=== PATIENT | female | born 2000 | race Hispanic/Latino ===

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

== ENCOUNTER 2021-01-22 01:00 | Emergency (ER) | payer BC, OTHER ==
--- OUTSIDE RECORDS SUMMARY | 2021-01-22 01:03 | XMS REPORT | Continuity of Care Document ---
:2000 Author Organization [facility] t Address [address] [place] [address] Care Team Providers Name Role Phone 2, Lab Attending Clinician Unavailable Yaya MERAZ Attending Clinician Doctor Unassigned, Name Attending Clinician Unavailable Mitesh ABRAHAM, Marcus Attending Clinician DR Serafin CARMEN. Attending Clinician Unavailable DR Serafin CARMEN. Admitting Clinician Unavailable Problems This patient has no known problems. Allergies, Adverse Reactions, Alerts This patient has no known allergies or adverse reactions. Medications This patient has no known medications. Procedures This patient has no known procedures. Encounters Start End Encounter Admission Attending Care Care Encounter Source Date/Time Date/Time Type Type Clinicians Facility Department ID 2021-01-18 2021-01-18 Dog Or Horse Racing Official 2, Dannie Lab [facility] [id number] 14:10:26 14:25:26 Visit Lori [id number] [place] [id number] Zahra [phone] [address] 2021-01-18 2021-01-18 Case ROMERO Javier [id number] 00:00:00 00:00:00 Management Meagan Sandoval [id number] [place] [id number] [facility] [id number] [address] 2021-01-15 2021-01-15 Orders Doctor JUSTIN [id number] 00:00:00 00:00:00 Only Unassigned, [place] [id number] [place] [facility] [id number] 2021-01-15 2021-01-15 Telephone Ellen Sagastume [facility] [id number] 00:00:00 00:00:00 Marcus Sandoval [id number] [place] [id number] [facility] [id number] [address] 2020-12-01 2020-12-01 Emergency E GERMAN CARMEN [facility] [id number] [facility] 10:52:00 12:00:00 [facility] Results This patient has no known results.
--- NOTE | 2021-01-22 01:25 | EDPHYS ---
Physician Documentation [facility] Name: Devi Calvert Age: 20 yrs Sex: Female : 2000 Arrival Date: 01/22/2021 Time: 01:03 Bed 16 Private MD: YOANDY Physician Yohannes Laguna HPI: 01/22 04:56 This 20 yrs old Female presents to ER via Wheelchair with complaints of Foot tw4 Injury. 04:56 This 20 yrs old Female presents to ER via Wheelchair with complaints of Foot tw4 Injury. 04:56 The patient presents with a contusion, an injury, pain. The complaints affect the left tw4 foot. Context: The problem was sustained at home, resulted from a heavy object falling, a cup or glass. Modifying factors: The symptoms are alleviated by nothing, the symptoms are aggravated by weight bearing, movement. The patient has not experienced similar symptoms in the past. 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 - Social history:: Smoking status: Patient denies any tobacco usage or history of. ROS: 04:56 MS/extremity: Positive for injury or acute deformity, contusion, of the dorsum of left tw4 foot. 04:56 Constitutional: Negative for fever, chills, and weight loss, Eyes: Negative for injury, pain, redness, and discharge, Cardiovascular: Negative for chest pain, palpitations, and edema, Respiratory: Negative for shortness of breath, cough, wheezing, and pleuritic chest pain, Abdomen/GI: Negative for abdominal pain, nausea, vomiting, diarrhea, and constipation, Skin: Negative for injury, rash, and discoloration. Exam: 04:56 Constitutional: This is a well developed, well nourished patient who is awake, alert, tw4 and in no acute distress. Head/Face: Normocephalic, atraumatic. Cardiovascular: Regular rate and rhythm with a normal S1 and S2. No gallops, murmurs, or rubs. Normal PMI, no JVD. No pulse deficits. Respiratory: Lungs have equal breath sounds bilaterally, clear to auscultation and percussion. No rales, rhonchi or wheezes noted. No increased work of breathing, no retractions or nasal flaring. Abdomen/GI: Soft, non-tender, with normal bowel sounds. No distension or tympany. No guarding or rebound. No evidence of tenderness throughout. Skin: Warm, dry with normal turgor. Normal color with no rashes, no lesions, and no evidence of cellulitis. 04:56 Musculoskeletal/extremity: Extremities: noted in the dorsum of left foot: contusion. Vital Signs: 01:10 BP 128 / 85; Pulse 105; Resp 18; Temp 98.2; Pulse Ox 100% ; Weight 53.07 kg; Height 5 wh ft. 2 in. (157.48 cm); Pain 7/10; 01:10 Body Mass Index 21.40 (53.07 kg, 157.48 cm) MDM: 01:19 Patient medically screened. tw4 04:56 Data reviewed: vital signs, nurses notes. Special discussion: I discussed with the tw4 patient/guardian in detail that at this point there is no indication for admission to the hospital. It is understood, however, that if the symptoms persist or worsen the patient needs to return immediately for re-evaluation. 01/22 01:23 Order name: Jed Wrap; Complete Time: 01:39 tw4 Administered Medications: No medications were administered Disposition: 01/22/21 01:24 Discharged to Home. Impression: Contusion of left foot. - Condition is Stable. - Discharge Instructions: Contusion. - Work release form, Medication Reconciliation Form, Thank You Letter, Antibiotic Education, Prescription Opioid Use form. - Follow up: Private Physician; When: Upon discharge from the Emergency Department; Reason: Recheck today's complaints, Continuance of care, Re-evaluation by your physician. - Problem is new. - Symptoms have improved. Signatures: Dispatcher [employer] Lorena Ortiz, RN RN Yohannes Laguna MD MD tw4 Corrections: (The following items were deleted from the chart) 01:25 01:21 Foot Right 3 View+RAD.RAD.BRZ ordered. [facility] 01:54 01:24 01/22/2021 01:24 Discharged to Home. Impression: Contusion of left foot. wh Condition is Stable. Forms are Medication Reconciliation Form, Thank You Letter, Antibiotic Education, Prescription Opioid Use. Follow up: Private Physician; When: Upon discharge from the Emergency Department; Reason: Recheck today's complaints, Continuance of care, Re-evaluation by your physician. Problem is new. Symptoms have improved. tw4
--- NOTE | 2021-01-22 01:25 | ER ---
Nurse's Notes [facility] Name: Devi Calvert Age: 20 yrs Sex: Female : 2000 Arrival Date: 01/22/2021 Time: 01:03 Bed 16 Private MD: Diagnosis: Contusion of left foot Presentation: 01/22 01:10 Chief complaint: Patient states: C/O left foot pain after a shampoo bottle accidentally wh dropped on her foot. Pt took Tylenol prior to getting to ER. Coronavirus screen: Client denies travel out of the [place] in the last 14 days. At this time, the client does not indicate any symptoms associated with coronavirus-19. Ebola Screen: Patient negative for fever greater than or equal to 101.5 degrees Fahrenheit, and additional compatible Ebola Virus Disease symptoms Patient denies exposure to infectious person. Initial Sepsis Screen: Does the patient meet any 2 criteria? HR > 90 bpm. Does the patient have a suspected source of infection? No. Patient's initial sepsis screen is negative. Risk Assessment: Do you want to hurt yourself or someone else? Patient reports no desire to harm self or others. Onset of symptoms was January 22, 2021. 01:10 Method Of Arrival: Wheelchair 01:10 Acuity: CHANTAL 4 Triage Assessment: 01:15 Injury Description: pain. 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 - Social history:: Smoking status: Patient denies any tobacco usage or history of. Screenin:14 Abuse screen: Denies threats or abuse. Denies injuries from another. Nutritional screening: No deficits noted. Tuberculosis screening: No symptoms or risk factors identified. Fall Risk None identified. Assessment: 01:14 General: Appears in no apparent distress. Behavior is calm, cooperative, appropriate for age. Pain: Complains of pain in left foot. Neuro: Level of Consciousness is awake, alert, obeys commands, Oriented to person, place, time, situation, Appropriate for age. Cardiovascular: Capillary refill < 3 seconds. Respiratory: Airway is patent Respiratory effort is even, unlabored, Respiratory pattern is regular, symmetrical. GI: Abdomen is non-distended. : No signs and/or symptoms were reported regarding the genitourinary system. EENT: No signs and/or symptoms were reported regarding the EENT system. Derm: Skin is intact, is healthy with good turgor, Skin is pink, warm \T\ dry. normal. Musculoskeletal: Circulation, motion, and sensation intact. Vital Signs: 01:10 BP 128 / 85; Pulse 105; Resp 18; Temp 98.2; Pulse Ox 100% ; Weight 53.07 kg; Height 5 wh ft. 2 in. (157.48 cm); Pain 7/10; 01:10 Body Mass Index 21.40 (53.07 kg, 157.48 cm) ED Course: 01:03 Patient arrived in ED. am4 01:06 Lorena Doran RN is Primary Nurse. 01:13 Triage completed. 01:15 Arm band placed on right wrist. 01:15 Patient has correct armband on for positive identification. Bed in low position. Call light in reach. Side rails up X 1. Pulse ox on. NIBP on. 01:19 Yohannes Laguna MD is Attending Physician. tw4 01:54 No provider procedures requiring assistance completed. Patient did not have IV access during this emergency room visit. Administered Medications: No medications were administered Outcome: 01:24 Discharge ordered by . tw4 01:54 Discharged to home via wheelchair, with family. 01:54 Condition: stable 01:54 Discharge instructions given to patient, Instructed on discharge instructions, follow up and referral plans. POC Demonstrated understanding of instructions, follow-up care, splint care, POC 01:54 Patient left the ED. Signatures: Lorena Doran RN RN Yohannes Laguna MD MD 4 Cecilia Styles [facility]
[2021-01-22 19:02] VITALS: BP 128/85; TEMP 98.2; O2SAT 100
== END 2021-01-22 01:54 | disposition home or self-care (01) ==
LOC: ER 01:00
DX: S90.32XA Contusion of left foot, initial encounter (principal); W20.8XXA Other cause of strike by thrown, projected or falling object, initial encounter; F41.9 Anxiety disorder, unspecified; J45.909 Unspecified asthma, uncomplicated; F32.9 Major depressive disorder, single episode, unspecified; F20.9 Schizophrenia, unspecified
CPT/HCPCS: 99283

== ENCOUNTER 2021-04-02 17:15 | Emergency (ER) | payer BC, OTHER ==
--- OUTSIDE RECORDS SUMMARY | 2021-04-02 17:18 | XMS REPORT | Continuity of Care Document ---
:2000 Author Organization [facility] t Address [address] [place] [address] Care Team Providers Name Role Phone Ghazal Primary Care Physician Yaya MERAZ Attending Clinician DR Serafin CARMEN. Attending Clinician Unavailable DR Serafin CARMEN. Admitting Clinician Unavailable Payers Payer Name Policy Type Policy Effective Date Expiration Date Sour ce Number BCBS OF [id number] 2020 [place]00 [place] [id number] [place] 2019-Presen [phone] [address], [place] [address]GNV/POS [facility] [id number] 2019 [place] [facility] - 00:00:00 [place] Medic al [facility] Branch MEDICAIDWY CHILDREN [id number] /1/2019-PresentM edicaid Problems Condition Condition Condition Status Onset Resolution Last Treating Co mments Source Name Details Category Date Date Treatment Clinician Date High-risk High-risk Disease Active Uni vers 4-07 ity of in first in first 00:00: [place] trimester trimester 00 Medi jose Branch Rh Rh Disease Active Univers negative negative 4-07 ity of state in state in 00:00: [place] antepartum antepartum 00 Me dical period period Branch Generalize Generalize Disease Active 2018-11 U nivers d anxiety d anxiety 0-14 ity of disorder disorder 00:00: [place] [facility] 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 0-14 it y of disorder disorder 00:00: Medical Branch History of History of Disease Active 2018-11 U nivers self-harm self-harm 0-14 ity of 00:00: [place] [facility] Bipolar 1 Bipolar 1 Disease Active Uni vers disorder disorder 8-30 ity of 00:00: Medical Branch Family Family Disease Active Univers history of history of 8-30 it y of [place] Medical defect defect Branch Vaginal Vaginal Disease Resolve [id number] 2021-01-15 Univers discharge discharge d 2-31 00:00:00 17:03:56 ity of 00:00: [place] [facility] Need for Need for Disease Resolve [id number] 2021-01-15 Univers prophylact prophylact d 0-14 00:00:00 17:05:00 ity of ic ic 00:00: [place] vaccinatio vaccinatio 00 Me dical n and n and Branch inoculatio inoculatio n against n against varicella varicella Need for Need for Disease Resolve [id number] 2021-01-15 Univers vaccinatio vaccinatio d 0-14 00:00:00 17:05:01 ity of n against n against 00:[place] rub[place] rubella 00 [place] [facility] Normal Normal Disease Resolve 2020-02-28 2020-02-28 Univers labor labor d 3-23 00:00:00 14:13:37 ity of 00:00: [place] [facility] Group B Group B Disease Resolve 2020-02-28 2020-02-28 Univers streptococ streptococ d 3- 00:00:00 14:13:32 ity of jose jose 00:00: [place] infection infection 00 [facility] jose during during Branch Liveborn Liveborn Disease Resolve 2020-02-28 2020-02-28 Univers infant, of infant, of d 3-23 00:00:00 14:13:34 ity of umaña umaña 00:00: Cathy s , , 00 Me dical born in born in [facility] hospital by vaginal by vaginal delivery delivery High-risk High-risk Disease Resolve [id number] 2020-02-28 Univers d 2-31 00:00:00 14:13:35 ity of in third in third 00:00: [place] trimester trimester 00 [facility] 26 weeks 26 weeks Disease Resolve [id number] 2019-12-08 [facility] gestation gestation d 2-31 00:00:00 20:01:23 ity of of of 00:00: [place] 00 [facility] Allergies, Adverse Reactions, Alerts This patient has no known allergies or adverse reactions. Social History Social Habit Start Date Stop Date Quantity Comments Source ASSERTION 2020-12-25 University of 00:00:00 [facility] Exposure to Not sure [facility] SARS-CoV-2 (event) [facility] Cigarettes smoked 2021-02-14 2021-02-14 Univers ity of current (pack per 00:00:00 00:00:00 ) - Reported [place] Tobacco use and 2021-02-14 2021-02-14 Never used Universit y of exposure 00:00:00 00:00:00 [facility] Alcohol intake 2021-02-14 2021-02-14 Ex-drinker University 00:00:00 00:00:00 (finding) [facility] History of tobacco 2019-07-05 Cigarette Smoker University of use 00:00:00 [facility] Tobacco Comment 2019-05-24 2019-05-24 1/2 PPD Universit y of 00:00:00 00:00:00 [facility] Sex Assigned At [birth year] Universit y of 00:00:00 00:00:00 [facility] Smoking Status Start Date Stop Date Source Former smoker 2021-02-14 00:00:00 2021-02-14 00:00:[address] [facility] Medications Ordered Filled Start Stop Current Ordering Indication Dosage Frequency Signature Comments Components Source Medication Medication Date Date Medication? Clinician (SIG) Name Name FLUoxetine 2021-0 Yes fluoxetine U nivers 20 mg 3-08 20 mg ity of capsule 18:17: capsule [place] 11 TAKE 1 Medical CAPSULE BY Branch MOUTH EVERY DAY albuterol Yes 2.5mg Inhale 2.5 U nivers 2.5 mg /3 3-08 mg every 4 ity of mL (0.083 16:46: (four) [place] %) 17 hours as Medical nebulizer needed. Branch solution albuterol Yes 2{puff} Inhale 2 U nivers 90 3-08 Puffs ity of mcg/actuati 16:46: every 6 Tk as on inhaler 17 (six) Medical hours as Branch needed. QUEtiapine 2018-11 Yes 50mg Take 50 mg U nivers 50 mg 1-25 by mouth ity of tablet 00:00: daily. [address] Immunizations Ordered Immunization Filled Immunization Date Status Commen ts Source Name Name MMR 2020-02-01 Completed University of 00:00:00 [facility] Rho (d) Immune 2020-02-01 Completed University of Globulin 00:00:00 [facility] TDAP (ADACEL) 2019-12-08 Completed University of VACCINE 00:00:00 [facility] Influenza Virus 2019-08-18 Completed Universit y of Vaccine Quad .5 mL 00:00:00 [facility] IM 6+ MO [place] Influenza Virus 2019-08-18 Completed Universit y of Vaccine 00:00:00 [facility] Rho (d) Immune 2019-07-27 Completed University of Globulin 00:00:00 [facility] HPV 2014-01-18 Completed University of 00:00:00 [facility] Meningococcal 2014-01-18 Completed University of Vaccine 00:00:00 [facility] Varicella 2014-01-18 Completed University of (varivax)(chicken 00:00:00 [place] M edical pox) Branch HPV 2011-07-04 Completed University of 00:00:00 [facility] HEPATITIS A 2006-12-16 Completed University of 00:00:00 [facility] HEPATITIS A 2005-10-11 Completed University of 00:00:00 [facility] DTAP 2003-02-08 Completed University of 00:00:00 [facility] HIB 4 Dose Schedule 2003-02-08 Completed Unive rsity of 00:00:00 [facility] Varicella 2002-11-23 Completed University of (varivax)(chicken 00:00:00 [facility] edical pox) Branch MMR 2002-11-23 Completed University of 00:00:00 [facility] DTAP 2002-08-03 Completed University of 00:00:00 [facility] HIB 4 Dose Schedule 2002-08-03 Completed Unive rsity of 00:00:00 [facility] Hep B, Adol or Pedi 2002-08-03 Completed Unive rsity of Dosage 00:00:00 [facility] DTAP 2002-03-15 Completed University of 00:00:00 [facility] HIB 4 Dose Schedule 2002-03-15 Completed Unive rsity of 00:00:00 [facility] DTAP 2001 Completed University of 00:00:00 [facility] HIB 4 Dose Schedule 2001 Completed Unive rsity of 00:00:00 [facility] Hep B, Adol or Pedi 2000 Completed Unive rsity of Dosage 00:00:00 [facility] Hep B, Adol or Pedi 2000 Completed Unive rsity of Dosage 00:00:00 [facility] Vital Signs Vital Name Observation Time Observation Value Comments Source Systolic blood 2021-03-14 18:19:00 99 mm[Hg] Univer sity of pressure [facility] Diastolic blood 2021-03-14 18:19:00 65 mm[Hg] Unive rsity of pressure [facility] Heart rate 2021-03-14 18:19:00 99 /min [facility] Body temperature 2021-03-14 18:19:00 36.83 Melania [facility] [place] [facility] Respiratory rate 2021-03-14 18:19:00 18 /min [facility] Body height 2021-03-14 18:19:00 157.5 cm [facility] Body weight 2021-03-14 18:19:00 53.524 kg [facility] BMI 2021-03-14 18:19:00 21.58 kg/m2 [facility] Systolic blood 2021-03-14 18:19:00 99 mm[Hg] Univer sity of pressure [facility] Diastolic blood 2021-03-14 18:19:00 65 mm[Hg] Unive rsity of pressure [facility] Heart rate 2021-03-14 18:19:00 99 /min [facility] Body temperature 2021-03-14 18:19:00 36.83 Melania [facility] Respiratory rate 2021-03-14 18:19:00 18 /min [facility] Body height 2021-03-14 18:19:00 157.5 cm [facility] Body weight 2021-03-14 18:19:00 53.524 kg [facility] BMI 2021-03-14 18:19:00 21.58 kg/m2 [facility] Procedures Procedure Date / Time Performed Performing Clinician Sourc e POCT URINALYSIS W/O 2021-03-14 00:00:00 Meagan Javier [facility] SPECIFIC GRAVITY [facility] Plan of Care Planned Activity Planned Date Details Comments Source Future Scheduled 2029-12-08 DTaP,Tdap,and Td [facility] Test 00:00:00 Vaccines (6 - Td) Medical Br anch [code = DTaP,Tdap,and Td Vaccines (6 - Td)] Future Scheduled 2022-01-15 Screening for [facility] Test 00:00:00 Chlamydia trachomatis Medica l Branch (procedure) [code = 482052814] Future Scheduled 2021-07-11 INFLUENZA VACCINE Univer [facility] Test 00:00:00 (Season Ended) [code = Medic al Branch INFLUENZA VACCINE (Season Ended)] Future Scheduled 2017 [facility] (1) [code = Medical Branch SARS-CoV-2 (COVID-19) Vaccine (1)] Future Scheduled 2013 [facility] (procedure) [code = Medical Branch [id number]] Future Scheduled 2013 Well child visit [facility] Test 00:00:00 (procedure) [code = Medical Branch [id number]] Future Scheduled 2011 MENINGOCOCCAL B [facility] Test 00:00:00 VACCINES (1 of 2 - Medical B [facility] Risk Bexsero 2-dose series) [code = MENINGOCOCCAL B VACCINES (1 of 2 - Risk Bexsero 2-dose series)] Encounters Start End Encounter Admission Attending Care Care Encounter Source Date/Time Date/Time Type Type Clinicians Facility Department ID 2021-03-14 2021-03-14 Routine YayaTRIPPTEE [id number] 12:43:31 13:35:28 Meagan Sandoval [id number] Visit [place] [id number] Zahra [id number] [address] 2020-12-01 2020-12-01 Emergency E GERMAN CARMEN [facility] [id number] [facility] 10:52:00 12:00:00 Medica l Center Results Test Description Test Time Test Comments Results Result Comments Source POCT URINALYSIS W/O SPECIFIC GRAVITY 2021-03-14 18:20:00 Test Item Value Reference Range Interpretation Comme nts POCT PH U (test code = 3254) N/A 5-8 POCT U LEUK EST (test code = 3263) N/A Negative - Negative POCT U NIT (test code = 3262) N/A Negative - Negative POCT U PROT (test code = 3259) Negative Negative - Negative POCT U GLU (test code = 3256) Negative Negative - Negative POCT U KETONE (test code = 3258) N/A Negative - Negative POCT U BLD (test code = 3257) N/A Negative - Negative [facility]
--- NOTE | 2021-04-02 18:19 | ER ---
Nurse's Notes [facility] Name: Devi Calvert Age: 20 yrs Sex: Female : 2000 Arrival Date: 04/02/2021 Time: 17:18 Bed Waiting Private MD: Diagnosis: Presentation: 04/02 17:43 Chief complaint: Patient states: My head has been hurting every other day. Today, ca1 started 2 hrs ago when I woke and I feel like my R face is numb, R arm numb. VAN negative. A\T\Ox4. 16 weeks . Coronavirus screen: Client denies travel out of the [place] in the last 14 days. At this time, the client does not indicate any symptoms associated with coronavirus-19. Ebola Screen: Patient negative for fever greater than or equal to 101.5 degrees Fahrenheit, and additional compatible Ebola Virus Disease symptoms Patient denies exposure to infectious person. Patient denies travel to an Ebola-affected area in the 21 days before illness onset. No symptoms or risks identified at this time. Initial Sepsis Screen: Does the patient meet any 2 criteria? No. Patient's initial sepsis screen is negative. Does the patient have a suspected source of infection? No. Patient's initial sepsis screen is negative. Risk Assessment: Do you want to hurt yourself or someone else? Patient reports no desire to harm self or others. Onset of symptoms was April 02, 2021. 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 Flu vaccine is not up to date. - Social history:: Smoking status: Patient denies any tobacco usage or history of. Vital Signs: 17:43 BP 116 / 76; Pulse 104; Resp 18 S; Temp 97.3(TE); Pulse Ox 98% on R/A; Weight 54.43 kg ca1 (R); Height 5 ft. 2 in. (157.48 cm) (R); Pain 810; 17:43 Body Mass Index 21.95 (54.43 kg, 157.48 cm) ca1 ED Course: 17:18 Patient arrived in ED. bp1 17:47 Triage completed. ca1 17:48 Arm band placed on right wrist. ca1 18:19 Patient's name was called from ER lobby. No response. Unable to locate patient. Will ca1 disposition as left without being seen by a provider. Administered Medications: No medications were administered Outcome: 18:19 Patient left the ED. ca1 Signatures: Mareila Malone, RN RN ca1 Peggy Cummings bp1
[2021-04-02 19:37] VITALS: BP 116/76; TEMP 97.3; O2SAT 98
== END 2021-04-02 18:19 | disposition left against medical advice (07) ==
LOC: ER 17:15
DX: Z53.21 Procedure and treatment not carried out due to patient leaving prior to being seen by health care provider (principal)
CPT/HCPCS: 99281

== ENCOUNTER 2021-04-24 11:58 | Emergency (ER) | payer BC ==
[2021-04-24 12:16] LABS: Urine Blood Negative (Negative); Urine Glucose Negative (Negative); Urine Protein Negative (Negative)
--- NOTE | 2021-04-24 12:56 | ER ---
Nurse's Notes [facility] Name: Devi Calvert Age: 20 yrs Sex: Female : 2000 Arrival Date: 04/24/2021 Time: 11:59 Bed 25 Private MD: Diagnosis: Bronchitis, not specified as acute or chronic;Tobacco abuse counseling; related exhaustion and fatigue, second trimester;Fever, unspecified;Urinary tract infection, site not specified Presentation: 04/24 12:06 Chief complaint: Patient states: Pt stated, "I've had a cough for two weeks, coughing kg up junk and congestion. Today I felt like I couldn't breath and my throat feels like its swelling." "I was at [facility] ER because I thought my water had broke but they said it was a UTI. I've been taking medication for that since Friday or Friday.". Coronavirus screen: Client denies travel out of the [place] in the last 14 days. At this time, unable to obtain information related to travel outside the [place] Client presents with at least one sign or symptom that may indicate coronavirus-19. Ebola Screen: Patient negative for fever greater than or equal to 101.5 degrees Fahrenheit, and additional compatible Ebola Virus Disease symptoms Patient denies exposure to infectious person. Patient denies travel to an Ebola-affected area in the 21 days before illness onset. Initial Sepsis Screen: Does the patient meet any 2 criteria? HR > 90 bpm. No. Patient's initial sepsis screen is negative. Does the patient have a suspected source of infection? No. Patient's initial sepsis screen is negative. Risk Assessment: Do you want to hurt yourself or someone else? Patient reports no desire to harm self or others. Onset of symptoms was April 10, 2021. 12:06 Method Of Arrival: EMS: [facility] kg 12:06 Acuity: CHANTAL 3 kg Triage Assessment: 12:16 General: Appears in no apparent distress. Behavior is calm, cooperative, appropriate kg for age, quiet. Pain: Complains of pain in chest and neck Pain currently is 7 out of 10 on a pain scale. at worst was 7 out of 10 on a pain scale. level that patient reports is acceptable is 2 out of 10 on a pain scale. Quality of pain is described as aching. EENT: Throat has enlarged tonsils Reports difficulty swallowing since two weeks ago nasal congestion nasal discharge pain when swallowing Pain is 7 out of 10 on a pain scale. Neuro: No deficits noted. Cardiovascular: No deficits noted. Heart tones S1 S2 Rhythm is sinus tachycardia. Respiratory: Reports shortness of breath cough that is productive, pain with cough since two weeks ago Airway is patent Trachea midline Respiratory effort is even, unlabored, relaxed, Respiratory pattern is regular, Sputum is thick, green yellow white Breath sounds are clear bilaterally. Onset: The symptoms/episode began/occurred gradually, the patient has moderate shortness of breath. GI: No deficits noted. GI: Pt is 19 weeks . : No deficits noted. Derm: No deficits noted. Musculoskeletal: No deficits noted. 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 - Social history:: Smoking status: Patient reports the use of cigarette tobacco products, smokes one-half pack cigarettes per day. Screenin:00 Fall Risk None identified. No secondary diagnosis (0 pts). No IV (0 pts). Ambulatory kg Aid- None/Bed Rest/Nurse Assist (0 pts). Gait- Normal/Bed Rest/Wheelchair (0 pts) Mental Status- Oriented to own ability (0 pts). Total Acevedo Fall Scale indicates No Risk (0-24 pts). 13:23 Abuse screen: Denies threats or abuse. Denies injuries from another. Nutritional kg screening: No deficits noted. Tuberculosis screening: No symptoms or risk factors identified. Assessment: 12:19 Reassessment: See triage assessment. Cardiovascular: Heart tones S1 S2. kg Vital Signs: 12:06 BP 119 / 77; Pulse 118; Resp 18; Temp 99.4(O); Pulse Ox 100% ; Weight 55.34 kg (R); kg Height 5 ft. 2 in. (157.48 cm) (R); Pain 7/10; 13:22 BP 110 / 78; Pulse 106; Resp 20; Pulse Ox 98% on R/A; kg 12:06 Body Mass Index 22.31 (55.34 kg, 157.48 cm) kg Vitals: 12:52 Heart Tones 162. ss ED Course: 11:59 Patient arrived in ED. am2 12:00 Joon Miles MD is Attending Physician. [facility] 12:06 Jeanne Montoya, RN is Primary Nurse. kg 12:15 Triage completed. kg 12:54 Ford Dumont MD is Referral Physician. emery 13:00 Patient has correct armband on for positive identification. Placed in gown. Bed in low kg position. Call light in reach. Side rails up X 1. 13:00 No provider procedures requiring assistance completed. Patient did not have IV access kg during this emergency room visit. 13:24 Arm band placed on right wrist. kg Administered Medications: 13:06 Drug: Augmentin (Amoxicillin-Clavulanate) 875 mg Route: PO; kg 13:25 Follow up: Response: No adverse reaction kg Outcome: 12:55 Discharge ordered by . emery 13:25 Discharged to home ambulatory, with significant other. kg 13:25 Condition: improved 13:25 Discharge instructions given to patient, Instructed on discharge instructions, follow up and referral plans. Demonstrated understanding of instructions, follow-up care, medications, Prescriptions given X 4. 13:26 Patient left the ED. kg Signatures: Joon Miles MD MD cha Smirch, Shelby, RN RN Rupa Nair am2 Jeanne Montoya, RN RN kg
--- NOTE | 2021-04-24 12:56 | EDPHYS ---
Physician Documentation [facility] Name: Devi Calvert Age: 20 yrs Sex: Female : 2000 Arrival Date: 04/24/2021 Time: 11:59 Bed 25 Private MD: ED Physician Joon Mlies HPI: 04/24 12:41 This 20 yrs old Female presents to ER via EMS with complaints of Breathing emery Difficulty. 12:41 The patient has shortness of breath at rest, with light activity. Onset: The emery symptoms/episode began/occurred 1 day(s) ago. Duration: The symptoms are continuous, and are unchanged since they started. The patient's shortness of breath is aggravated by coughing. Associated signs and symptoms: Pertinent positives: non-productive cough. Severity of symptoms: At their worst the symptoms were mild in the emergency department the symptoms are unchanged. The patient has not experienced similar symptoms in the past. 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 - Social history:: Smoking status: Patient reports the use of cigarette tobacco products, smokes one-half pack cigarettes per day. ROS: 12:48 Constitutional: Negative for fever, chills, and weight loss, Eyes: Negative for injury, emery pain, redness, and discharge, ENT: Negative for injury, pain, and discharge, Neck: Negative for injury, pain, and swelling, Abdomen/GI: Negative for abdominal pain, nausea, vomiting, diarrhea, and constipation, Back: Negative for injury and pain, : Negative for injury, bleeding, discharge, and swelling, MS/Extremity: Negative for injury and deformity, Skin: Negative for injury, rash, and discoloration, Neuro: Negative for headache, weakness, numbness, tingling, and seizure, Psych: Negative for depression, anxiety, suicide ideation, homicidal ideation, and hallucinations, Allergy/Immunology: Negative for hives, rash, and allergies, Endocrine: Negative for neck swelling, polydipsia, polyuria, polyphagia, and marked weight changes, Hematologic/Lymphatic: Negative for swollen nodes, abnormal bleeding, and unusual bruising. 12:48 Cardiovascular: Positive for palpitations. 12:48 Respiratory: Positive for cough, shortness of breath, at rest. Exam: 12:48 Constitutional: This is a well developed, well nourished patient who is awake, alert, emery and in no acute distress. Head/Face: Normocephalic, atraumatic. Eyes: Pupils equal round and reactive to light, extra-ocular motions intact. Lids and lashes normal. Conjunctiva and sclera are non-icteric and not injected. Cornea within normal limits. Periorbital areas with no swelling, redness, or edema. ENT: Nares patent. No nasal discharge, no septal abnormalities noted. Tympanic membranes are normal and external auditory canals are clear. Oropharynx with no redness, swelling, or masses, exudates, or evidence of obstruction, uvula midline. Mucous membranes moist. Neck: Trachea midline, no thyromegaly or masses palpated, and no cervical lymphadenopathy. Supple, full range of motion without nuchal rigidity, or vertebral point tenderness. No Meningismus. Chest/axilla: Normal chest wall appearance and motion. Nontender with no deformity. No lesions are appreciated. Cardiovascular: Regular rate and rhythm with a normal S1 and S2. No gallops, murmurs, or rubs. Normal PMI, no JVD. No pulse deficits. Abdomen/GI: Soft, non-tender, with normal bowel sounds. No distension or tympany. No guarding or rebound. No evidence of tenderness throughout. Back: No spinal tenderness. No costovertebral tenderness. Full range of motion. Skin: Warm, dry with normal turgor. Normal color with no rashes, no lesions, and no evidence of cellulitis. MS/ Extremity: Pulses equal, no cyanosis. Neurovascular intact. Full, normal range of motion. Neuro: Awake and alert, GCS 15, oriented to person, place, time, and situation. Cranial nerves II-XII grossly intact. Motor strength 5/5 in all extremities. Sensory grossly intact. Cerebellar exam normal. Normal gait. 12:48 Respiratory: the patient does not display signs of respiratory distress, Respirations: normal, Breath sounds: rhonchi, Respiratory rate: 118 Vital Signs: 12:06 BP 119 / 77; Pulse 118; Resp 18; Temp 99.4(O); Pulse Ox 100% ; Weight 55.34 kg (R); kg Height 5 ft. 2 in. (157.48 cm) (R); Pain 7/10; 13:22 BP 110 / 78; Pulse 106; Resp 20; Pulse Ox 98% on R/A; kg 12:06 Body Mass Index 22.31 (55.34 kg, 157.48 cm) kg MDM: 12:00 Patient medically screened. [facility] 12:58 Differential diagnosis: Anemia Anxiety Reaction Bronchitis [place] lópez. Antibiotic emery administration: The patient is discharged and will get outpatient antibiotics, Amoxicillin. The patient's Wells Deep Vein Thrombosis Score was calculated as follows: Total Score: 0-2 Pts- Low Risk. Differential Diagnosis: Bronchitis Influenza Upper Respiratory Infection Pneumonia. The patient's pulmonary embolism risk score was calculated as follows: Total Score: 0-2 points. This patient was found to be at low risk for a pulmonary embolism by using the Well's assessment criteria. Immunization status:. Data reviewed: vital signs, nurses notes, lab test result(s), urinalysis. Data interpreted: quality assurance monitor body: rate is 118 beats/min, rhythm is regular, Pulse oximetry: on room air is 100 %. 04/24 12:16 Order name: Urine Dipstick-Ancillary; Complete Time: 12:39 EDMS 04/24 12:40 Order name: Urine Culture [facility] 04/24 12:40 Order name: FHT's; Complete Time: 12:53 emery 04/24 12:41 Order name: PO challenge; Complete Time: 13:06 [facility] Administered Medications: 13:06 Drug: Augmentin (Amoxicillin-Clavulanate) 875 mg Route: PO; kg 13:25 Follow up: Response: No adverse reaction kg Disposition: 04/24/21 12:55 Discharged to Home. Impression: Bronchitis, not specified as acute or chronic, Tobacco abuse counseling, related exhaustion and fatigue, second trimester, Fever, unspecified, Urinary tract infection, site not specified. - Condition is Stable. - Discharge Instructions: Dysuria, Steps to Quit Smoking, Smoking Hazards, Urinary Tract Infection, Adult, Fever, Pediatric, Urinary Tract Infection, Adult, [id number], Cough, Adult, [id number], Cough, Adult, Second Trimester of , [id number], Fever, Pediatric, [id number]. - Prescriptions for Augmentin 875- 125 mg Oral Tablet - take 1 tablet by ORAL route every 12 hours for 10 days; 20 tablet. Vitamin 27- 0.8 mg Oral Tablet - take 1 tablet by ORAL route once daily; 30 tablet. Albuterol Sulfate 90 mcg/actuation - inhale 1-2 puff by INHALATION route every 4-6 hours; 1 Inhaler. Diclegis 10- 10 mg Oral tablet,delayed release (DR/EC) - take 1 tablet by ORAL route 3 times per day and 2 tablets at bedtime; 45 tablet. - Medication Reconciliation Form, Thank You Letter, Antibiotic Education, Prescription Opioid Use form. - Follow up: Private Physician; When: 2 - 3 days; Reason: Recheck today's complaints, Continuance of care, Re-evaluation by your physician. Follow up: Ford Dumont MD; When: 2 - 3 days; Reason: Recheck today's complaints, Re-evaluation by your physician. - Problem is new. - Symptoms have improved. Signatures: Dispatcher [employer] [facility] Joon Miles MD MD cha Graham, Kristen, RN RN kg Corrections: (The following items were deleted from the chart) 13:26 12:55 04/24/2021 12:55 Discharged to Home. Impression: Bronchitis, not specified as kg acute or chronic; Tobacco abuse counseling; related exhaustion and fatigue, second trimester; Fever, unspecified; Urinary tract infection, site not specified. Condition is Stable. Forms are Medication Reconciliation Form, Thank You Letter, Antibiotic Education, Prescription Opioid Use. Follow up: Private Physician; When: 2 - 3 days; Reason: Recheck today's complaints, Continuance of care, Re-evaluation by your physician. Follow up: Ford Dumont; When: 2 - 3 days; Reason: Recheck today's complaints, Re-evaluation by your physician. Problem is new. Symptoms have improved. emery
[2021-04-24] MEDS ORDERED: AMOX/K CLAV 875 MG TAB ONE (13:24)
[2021-04-24 13:33] VITALS: TEMP 99.4
[2021-04-24 13:34] VITALS: BP 110/78; O2SAT 98
== END 2021-04-24 13:26 | disposition home or self-care (01) ==
LOC: ER 11:58
DX: O99.512 Diseases of the respiratory system complicating pregnancy, second trimester (principal); J40 Bronchitis, not specified as acute or chronic; O26.812 Pregnancy related exhaustion and fatigue, second trimester; O23.42 Unspecified infection of urinary tract in pregnancy, second trimester; O99.332 Smoking (tobacco) complicating pregnancy, second trimester; F17.210 Nicotine dependence, cigarettes, uncomplicated; Z71.6 Tobacco abuse counseling
CPT/HCPCS: 81003; 87086; 87088

== ENCOUNTER 2022-11-08 07:30 | Emergency (ER) | payer BC ==
--- OUTSIDE RECORDS SUMMARY | 2022-11-08 07:38 | XMS REPORT | Continuity of Care Document ---
:2000 Author Organization [facility] t Address [address] [place] [address] Care Team Providers Name Role Phone Jovanna Harman Primary Care Physician WENDY RIVERA Attending Clinician Unavailable GUTIERREZ BRAVO Attending Clinician Unavailable Gutierrez Bravo MD Attending Clinician Nurse, [facility] Attending Clinician Unavailable Wendy Rivera PA-C Attending Clinician [facility] Attending Clinician Unavailable Isha Reaves Attending Clinician [phone] [place], Nephrology Attending Clinician Unavailable Doctor Unassigned, [place] Attending Clinician Unavailable ZARINA KENNEDY Attending Clinician Unavailable Brent ABRAHAM, Zarina Velazquez Attending Clinician NORMA PARTIDA Attending Clinician Unavailable Norma Partida MD Attending Clinician STAN TY Attending Clinician Unavailable STAN TY Attending Clinician Unavailable Pedro ALVARADO Attending Clinician Unavailable Paul PACPedro Attending Clinician Jordan Gaspar CRNA Attending Clinician Jesus Martinez MD, Brando Attending Clinician Only, [facility] Test Attending Clinician Unavailable Kary Oseguera MD Attending Clinician 2, [facility] Lab Attending Clinician Unavailable Lashay Merritt RN Attending Clinician Unavailable Ultrasound, [facility] Mfm Attending Clinician Unavailable Sailaja Aguillon MD, Sherry Attending Clinician [phone] Kian Gutierrez MD Attending Clinician Jim ABRAHAM, Mihai Attending Clinician Unknown, Attending Attending Clinician Unavailable UNKNOWN, ATTENDING Attending Clinician Unavailable Kary Ronquillo Attending Clinician DR GERMAN CARMEN Attending Clinician Unavailable Dominga HECK, Viviana Shine Attending Clinician Marco A Greco MD Attending Clinician Eda Santos RN Attending Clinician Unavailable Martha Cohn Attending Clinician Unavailable Jonny Sarah MD Attending Clinician 1, [facility] Attending Clinician Unavailable ZARINA KENNEDY Admitting Clinician Unavailable MARCO A GRECO Admitting Clinician Unavailable WENDY RIVERA Admitting Clinician Unavailable Zarina Kennedy MD Admitting Clinician Norma Partida MD Admitting Clinician NORMA PARTIDA Admitting Clinician Unavailable Kary Oseguera MD Admitting Clinician DR GERMAN CARMEN Admitting Clinician Unavailable Marco A Greco MD Admitting Clinician Payers Payer Name Policy Type Policy Number Effective Date Expiration Date S maurice [facility] [id number] 2020 00:00:00 [place] CHANO [id number] 2019 HEALTH 00:00:00 Problems Condition Condition Condition Status Onset Resolution Last Treating Co mments Source Name Details Category Date Date Treatment Clinician Date Allergic Allergic Disease Active Unive rs rhinitis rhinitis 5-06 ity of 00:00: [place] 00 Medical Branch Nausea Nausea Disease Active Univers 5-06 ity of 00:00: [place] [facility] High-risk High-risk Disease Active Uni vers 4-07 ity of in first in first 00:00: [place] trimester trimester 00 [facility] Branch Rh Rh Disease Active Univers negative negative 4-07 ity of state in state in 00:00: [place] antepartum antepartum 00 Me dical period period Branch Generalize Generalize Disease Active 2019- U nivers d anxiety d anxiety 0-14 ity of disorder disorder 00:00: [place] 00 Medical Branch 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 0-14 it y of disorder disorder 00:00: [place] 00 Medical Branch History of History of Disease Active 2018- U nivers self-harm self-harm 0-14 ity of 00:00: [place] 00 Medical Branch Family Family Disease Active 2019- Univers history of history of 8-30 [place] y of congenital congenital [place] heart heart 00 Medical defect defect Branch Bipolar 1 Bipolar 1 Disease Active 2019- Uni vers disorder disorder 8-30 ity of 00:00: [place] 00 Medical Branch Asthma Asthma Disease Active 2019- Univers 2-01 ity of 00:00: [place] 00 Medical Branch 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 Formattin g of this note might be different from the original. ONE episode. Normal lung biopsy. Treated with solumedro l monthly (3 days) x 5 months. Initially on plaquenil , stopped after 6-8 months. She's being observed off meds. Vaginal Vaginal Disease Resolve [id number] 2021-01-15 Univers discharge discharge d 2-31 00:00:00 17:03:56 ity of 00:00: [place] 00 [facility] Need for Need for Disease Resolve [id number] 2021-01-15 Univers prophylact prophylact d 0-14 00:00:00 17:05:00 ity of ic ic 00:00: [place] vaccinatio vaccinatio 00 Me dical n and n and [place] inoculatio inoculatio n against n against varicella varicella Need for Need for Disease Resolve [id number] 2021-01-15 [facility] vaccinatio vaccinatio d 0-14 00:00:00 17:05:01 [place]y of n against n against 00[place] rub[place] rubella 00 [facility] Normal Normal Disease Resolve 2020-02-28 2020-02-28 Univers labor labor d 3-23 00:00:00 14:13:37 ity of 00:00: [place] 00 [facility] Group B Group B Disease Resolve 2020-02-28 2020-02-28 Univers streptococ streptococ d 3-23 00:00:00 14:13:32 ity of jose jose 00:00: [place] infection infection 00 [facility] jose during during [place] Liveborn Liveborn Disease Resolve 2020-02-28 2020-02-28 Univers , of infant, of d 3-23 00:00:00 14:13:34 [place]y of umaña umaña 00:[place] , , 00 [place] dical born in born in [facility] hospital by vaginal by vaginal delivery delivery High-risk High-risk Disease Resolve [id number] 2020-02-28 Univers d 2-31 00:00:00 14:13:35 ity of in third in third 00:00: [place] trimester trimester 00 Medi jose Branch 26 weeks 26 weeks Disease Resolve 2019-2019-12-08 2019-12-08 Univers gestation gestation d 2-31 00:00:00 20:01:23 ity of of of 00:00: [place] 00 [facility] Allergies, Adverse Reactions, Alerts Allergy Allergy Status Severity Reaction(s) Onset Inactive Treating Comm ents Source Name Type Date Date Clinician NO KNOWN Drug Active Univers ALLERGIE Class ity of S [facility] No Known DA Active [facility] s Social History Social Habit Start Date Stop Date Quantity Comments Source ASSERTION 2020-12-25 [facility] 00:00:00 [facility] Exposure to 2022-08-16 2022-08-26 Not sure [facility] SARS-CoV-2 (event) 00:00:00 14:17:00 [facility] Alcohol intake 2022-08-26 2022-08-26 Ex-drinker [facility] 00:00:00 00:00:00 (finding) [facility] Cigarettes smoked 2022-06-03 2022-06-03 Univers ity of current (pack per 00:00:00 00:00:00 [facility] ) - Reported Branch Tobacco use and 2022-06-03 2022-06-03 Smokeless Universit y of exposure 00:00:00 00:00:00 tobacco non-user [facility] 2022-06-03 2022-06-03 1/2 PPD Universit y of 00:00:00 00:00:00 [facility] History of tobacco 2019-07-05 Cigarette Smoker University of use 00:00:00 [facility] Sex Assigned At [birth year] Universit y of 00:00:00 00:00:00 [facility] Smoking Status Start Date Stop Date Source Ex-smoker 2022-06-03 00:00:00 2022-06-03 00:00:00 Universi ty of [facility] Medications Ordered Filled Start Stop Current Ordering Indication Dosage Frequency Signature Comments Components Source Medication Medication Date Date Medication? Clinician (SIG) Name Name medroxyPROG 2021-11- No [id number] 150mg Univers ESTERone 017 1017 ity of (DEPO-PROVE 21:15: 20:14 [place] RA) syringe 00 :00 Medical 150 mg Branch medroxyPROG 2021-11- No [id number] 150mg 150 mg, Univers ESTERone 0-17 10-17 Intramuscu ity of (DEPO-PROVE 21:15: 20:14 lar, ONCE, Andrea PINEDO) syringe 00 :00 1 dose, On Me dical 150 mg [facility] 08/26/22 at 1615, Routine SUMAtriptan Yes sumatripta Univers 50 mg 8-24 n 50 mg ity of tablet 15:26: tablet [address] sulfamethox Yes sulfametho Univers azole-trime 8-24 xazole 800 it y of thoprim 15:26: mg-trimeth [place] 800-160 mg 51 oprim 160 Medi jose per tablet mg tablet Bran ch predniSONE Yes prednisone U nivers 20 mg 8-24 20 mg ity of tablet 15:26: tablet [address] prazosin 1 Yes prazosin 1 U nivers mg capsule 8-24 mg capsule ity of 15:26: [address] ondansetron Yes ondansetro Univers 4 mg tablet 8-24 n HCl 4 mg it y of 15:26: tablet [place] [address] TAKE 1 Medical TABLET BY [place] MOUTH EVERY 12 HOURS NEEDED ondansetron Yes ondansetro Univers 4 mg 8-24 n 4 mg ity of disintegrat 15:26: disintegra [facility] tablet 51 ting Medical tablet [place] Nitrofurant Yes nitrofuran Univers oin&Nit. 8-24 toin ity of Macrocryst 15:26: monohydrat [place] 100 mg 51 e/macrocry Medical capsule stals 100 Branch mg capsule lurasidone Yes Latuda 20 Un alberto 20 mg 8-24 mg tablet ity of tablet 15:26: [address] Sodium Yes Denta 5000 Unive rs Fluoride, 8-24 Plus 1.1 % ity of Dental Gel, 15:26: cream USE [place] 1.1 % Crea 51 TWICE A Medica l DAY IN THE [place] MORNING AND AT NIGHT. DO NOT EAT OR DRINK FOR AT LEAST 30 MINS fluconazole Yes fluconazol Univers 200 mg 8-24 e 200 mg ity of tablet 15:26: tablet [address] escitalopra Yes escitalopr Univers m oxalate 8-24 am 20 mg ity of 20 mg 15:26: tablet [place] [facility] 51 Medical Branch doxylamine- Yes Diclefranklyn Servin ivers pyridoxine, 8-24 10 mg-10 ity of vit B6, 15:26: mg [place] 10-10 mg 51 tablet,del Medic al per tablet ayed Branch release TAKE 1 TABLET BY MOUTH THREE TIMES A DAY NEEDED AND 2 AT BEDTIME diphenoxyla Yes diphenoxyl Univers te-atropine 8-24 ate-atropi it y of 2.5-0.025 15:26: ne 2.5 [place] mg tablet 51 mg-0.025 Medica l mg tablet Branch dicyclomine Yes dicyclomin Univers 20 mg 8-24 e 20 mg ity of tablet 15:26: tablet [place] [address] TAKE 1 Medical TABLET BY Branch MOUTH EVERY 6 HOURS NEEDED clindamycin Yes clindamyci Univers 300 mg 8-24 n HCl 300 ity of capsule 15:26: mg capsule [facility] s 51 Take 1 Medical capsule 3 Branch times a day by oral route for 10 days. ciprofloxac Yes ciprofloxa Univers in HCl 500 8-24 monica 500 mg ity of mg tablet 15:26: tablet [address] chlorhexidi Yes chlorhexid Univers ne 0.12 % 8-24 ine ity of mouthwash 15:26: gluconate [place] 51 0.12 % Medical mouthwash Branch USE TWICE DAILY cephALEXin Yes cephalexin U nivers 500 mg 8-24 500 mg ity of capsule 15:26: capsule [address] busPIRone 5 Yes buspirone U nivers mg tablet 8-24 5 mg ity of 15:26: tablet [address] azithromyci Yes azithromyc Univers n 250 mg 8-24 in 250 mg ity of tablet 15:26: tablet [place] 51 TAKE BY Medical MOUTH 2 Branch TABLETS TODAY THEN 1 TABLE DAILY FOR NEXT 4 DAYS ARIPiprazol Yes aripiprazo Univers e 5 mg 8-24 le 5 mg ity of tablet 15:26: tablet [address] PNV 67-iron Yes Vitafol Uni vers ps-folate 8-24 Ultra 29 ity of no.1-dha 15:26: mg iron-1 [place] (VITAFOL 51 mg-200 mg Medica l ULTRA) 29 capsule Branch mg iron- 1 mg-200 mg Cap norgestimat Yes Sprintec Un alberto e-ethinyl 8-24 (28) 0.25 ity o f estradioL 15:26: mg-35 mcg [place] as 0.25-35 51 tablet Medical mg-mcg per TAKE 1 Branch tablet TABLET BY MOUTH EVERY DAY Yes [facility] ers vit,calc76/ 8-24 Rx 29 mg ity of iron/folic 15:26: [place]-1 [place] (PRENATABS 51 tablet Medical RX ORAL) [place] iron-FA-dha Yes EnLyte 1.5 Univers -epa-FAD-NA 8-24 mg ity of DH-be-mv 15:26: iron-8.73 [place] (ENLYTE) 51 mg Medical 1.5 mg capsule,im Branch iron- 8.73 mediate - mg CpID delay release PNV38/iron, Yes CitraNatal Univers crb,g/folic 8-24 Assure 35 ity of /dss/dha 15:26: mg iron-1 [place] (CITRANATAL 51 mg-50 Medical ASSURE mg-300 mg Branch ORAL) oral pack SUMAtriptan Yes sumatripta Univers 50 mg 8-24 n 50 mg ity of tablet 15:26: tablet [address] sulfamethox Yes sulfametho Univers azole-trime 8-24 xazole 800 it y of thoprim 15:26: mg-trimeth [place] 800-160 mg 51 oprim 160 Medi jose per tablet mg tablet Bran ch predniSONE Yes prednisone U nivers 20 mg 8-24 20 mg ity of tablet 15:26: tablet [address] prazosin 1 Yes prazosin 1 U nivers mg capsule 8-24 mg capsule ity of 15:26: [address] ondansetron Yes ondansetro Univers 4 mg tablet 8-24 n HCl 4 mg it y of 15:26: tablet [place] 51 TAKE 1 Medical TABLET BY Branch MOUTH EVERY 12 HOURS NEEDED ondansetron Yes ondansetro Univers 4 mg 8-24 n 4 mg ity of disintegrat 15:26: disintegra [place] ing tablet 51 ting Medical tablet [place] Nitrofurant Yes nitrofuran Univers oin&Nit. 8-24 toin ity of Macrocryst 15:26: monohydrat [place] 100 mg 51 e/macrocry Medical capsule stals 100 Branch mg capsule lurasidone Yes Latuda 20 Un alberto 20 mg 8-24 mg tablet ity of tablet 15:26: [address] Sodium Yes Denta 5000 Unive rs Fluoride, 8-24 Plus 1.1 % ity of Dental Gel, 15:26: cream USE [place] 1.1 % Crea 51 TWICE A Medica l DAY IN THE Branch MORNING AND AT NIGHT. DO NOT EAT OR DRINK FOR AT LEAST 30 MINS fluconazole Yes fluconazol Univers 200 mg 8-24 e 200 mg ity of tablet 15:26: tablet [address] escitalopra Yes escitalopr Univers m oxalate 8-24 am 20 mg ity of 20 mg 15:26: tablet [place] tablet 51 Medical [place] doxylamine- Yes Diclegis Un alberto pyridoxine, 8-24 10 mg-10 ity of vit B6, 15:26: mg [place] 10-10 mg 51 tablet,del Medic al per tablet ayed Branch release TAKE 1 TABLET BY MOUTH THREE TIMES A DAY NEEDED AND 2 AT BEDTIME diphenoxyla Yes diphenoxyl Univers te-atropine 8-24 ate-atropi it y of 2.5-0.025 15:26: ne 2.5 [place] mg tablet 51 mg-0.025 Medica l mg tablet [place] dicyclomine Yes dicyclomin Univers 20 mg 8-24 e 20 mg ity of tablet 15:26: tablet [place] 51 TAKE 1 Medical TABLET BY Branch MOUTH EVERY 6 HOURS NEEDED clindamycin Yes clindamyci Univers 300 mg 8-24 n HCl 300 ity of capsule 15:26: mg capsule [place] 51 Take 1 Medical capsule 3 Branch times a day by oral route for 10 days. ciprofloxac Yes ciprofloxa Univers in HCl 500 8-24 monica 500 mg ity of mg tablet 15:26: tablet [address] chlorhexidi Yes chlorhexid Univers ne 0.12 % 8-24 ine ity of mouthwash 15:26: gluconate [place] 51 0.12 % Medical mouthwash Branch USE TWICE DAILY cephALEXin Yes cephalexin U nivers 500 mg 8-24 500 mg ity of capsule 15:26: capsule [address] busPIRone 5 Yes buspirone U nivers mg tablet 8-24 5 mg ity of 15:26: tablet [address] azithromyci Yes azithromyc Univers n 250 mg 8-24 in 250 mg ity of tablet 15:26: tablet [place] [address] TAKE BY Medical MOUTH 2 Branch TABLETS TODAY THEN 1 TABLE DAILY FOR NEXT 4 DAYS ARIPiprazol Yes aripiprazo Univers e 5 mg 8-24 le 5 mg ity of tablet 15:26: tablet [address] PNV 67-iron Yes Vitafol Uni vers ps-folate 8-24 Ultra 29 ity of no.1-dha 15:26: mg iron-1 [place] (VITAFOL 51 mg-200 mg Medica l ULTRA) 29 capsule Branch mg iron- 1 mg-200 mg Cap norgestimat Yes Sprintec Un alberto e-ethinyl 8-24 (28) 0.25 ity o f estradioL 15:26: mg-35 mcg [place] 0.25-35 51 tablet Medical mg-mcg per TAKE 1 Branch tablet TABLET BY MOUTH EVERY DAY Yes Prenatabs Univ ers vit,calc76/ 8-24 Rx 29 mg ity of iron/folic 15:26: [place]-1 [place] (PRENATABS 51 tablet Medical RX ORAL) Branch iron-FA-dha Yes EnLyte 1.5 Univers -epa-FAD-NA 8-24 mg ity of DH-be-mv 15:26: iron-8.73 [place] (ENLYTE) 51 mg Medical 1.5 mg capsule,im Branch iron- 8.73 mediate - mg CpID delay release PNV38/iron, Yes CitraNatal Univers crb,g/folic 8-24 Assure 35 ity of /dss/dha 15:26: mg iron-1 [place] (CITRANATAL 51 mg-50 Medical ASSURE mg-300 mg [place] ORAL) oral pack SUMAtriptan Yes sumatripta Univers 50 mg 8-24 n 50 mg ity of tablet 15:26: tablet [address] sulfamethox Yes sulfametho Univers azole-trime 8-24 xazole 800 it y of thoprim 15:26: mg-trimeth [place] 800-160 mg 51 oprim 160 Medi jose per tablet mg tablet Bran ch predniSONE Yes prednisone U nivers 20 mg 8-24 20 mg ity of tablet 15:26: tablet [address] prazosin 1 Yes prazosin 1 U nivers mg capsule 8-24 mg capsule ity of 15:26: [address] ondansetron Yes ondansetro Univers 4 mg tablet 8-24 n HCl 4 mg it y of 15:26: tablet [place] [address] TAKE 1 Medical TABLET BY [place] MOUTH EVERY 12 HOURS NEEDED ondansetron Yes ondansetro Univers 4 mg 8-24 n 4 mg ity of disintegrat 15:26: disintegra [facility] tablet 51 ting Medical tablet [place] Nitrofurant Yes nitrofuran Univers oin&Nit. 8-24 toin ity of Macrocryst 15:26: monohydrat [place] 100 mg 51 e/macrocry Medical capsule stals 100 Branch mg capsule lurasidone Yes Latuda 20 Un alberto 20 mg 8-24 mg tablet ity of tablet 15:26: [address] Sodium Yes Denta 5000 Unive rs Fluoride, 8-24 Plus 1.1 % ity of Dental Gel, 15:26: cream USE [place] 1.1 % Crea 51 TWICE A Medica l DAY IN THE [place] MORNING AND AT NIGHT. DO NOT EAT OR DRINK FOR AT LEAST 30 MINS fluconazole Yes fluconazol Univers 200 mg 8-24 e 200 mg ity of tablet 15:26: tablet [address] escitalopra Yes escitalopr Univers m oxalate 8-24 am 20 mg ity of 20 mg 15:26: tablet [facility] 51 [facility] doxylamine- Yes Christian dominguez pyridoxine, 8-24 10 mg-10 ity of vit B6, 15:26: mg [place] 10-10 mg 51 tablet,del Medic al per tablet ayed Branch release TAKE 1 TABLET BY MOUTH THREE TIMES A DAY NEEDED AND 2 AT BEDTIME diphenoxyla Yes diphenoxyl Univers te-atropine 8-24 ate-atropi it y of 2.5-0.025 15:26: ne 2.5 [place] mg tablet 51 mg-0.025 Medica l mg tablet Branch dicyclomine Yes dicyclomin Univers 20 mg 8-24 e 20 mg ity of tablet 15:26: tablet [place] [address] TAKE 1 Medical TABLET BY Branch MOUTH EVERY 6 HOURS NEEDED clindamycin Yes clindamyci Univers 300 mg 8-24 n HCl 300 ity of capsule 15:26: mg capsule [place] 51 Take 1 Medical capsule 3 Branch times a day by oral route for 10 days. ciprofloxac Yes ciprofloxa Univers in HCl 500 8-24 monica 500 mg ity of mg tablet 15:26: tablet [address] chlorhexidi Yes chlorhexid Univers ne 0.12 % 8-24 ine ity of mouthwash 15:26: gluconate T[place] 51 0.12 % Medical mouthwash Branch USE TWICE DAILY cephALEXin Yes cephalexin U nivers 500 mg 8-24 500 mg ity of capsule 15:26: capsule [address] busPIRone 5 Yes buspirone U nivers mg tablet 8-24 5 mg ity of 15:26: tablet [address] azithromyci Yes azithromyc Univers n 250 mg 8-24 in 250 mg ity of tablet 15:26: tablet [place] 51 TAKE BY Medical MOUTH 2 Branch TABLETS TODAY THEN 1 TABLE DAILY FOR NEXT 4 DAYS ARIPiprazol Yes aripiprazo Univers e 5 mg 8-24 le 5 mg ity of tablet 15:26: tablet [address] PNV 67-iron Yes Vitafol Uni vers ps-folate 8-24 Ultra 29 ity of no.1-dha 15:26: mg iron-1 [place] (VITAFOL 51 mg-200 mg Medica l ULTRA) 29 capsule Branch mg iron- 1 mg-200 mg Cap norgestimat Yes Sprintec Un alberto e-ethinyl 8-24 (28) 0.25 ity o f estradioL 15:26: mg-35 mcg [place] 0.25-35 51 tablet Medical mg-mcg per TAKE 1 Branch tablet TABLET BY MOUTH EVERY DAY [facility]/ 8-24 Rx 29 mg ity of iron/folic 15:26: [place]-1 [place] (PRENATABS 51 tablet Medical RX ORAL) [place] iron-FA-dha Yes EnLyte 1.5 Univers -epa-FAD-NA 8-24 mg ity of DH-be-mv 15:26: iron-8.73 [place] (ENLYTE) 51 mg Medical 1.5 mg capsule,im Branch iron- 8.73 mediate - mg CpID delay release PNV38/iron, Yes CitraNatal Univers crb,g/folic 8-24 Assure 35 ity of /dss/dha 15:26: mg iron-1 [place] (CITRANATAL 51 mg-50 Medical ASSURE mg-300 mg Branch ORAL) oral pack SUMAtriptan Yes sumatripta Univers 50 mg 8-24 n 50 mg ity of tablet 15:26: tablet [address] sulfamethox Yes sulfametho Univers azole-trime 8-24 xazole 800 it y of thoprim 15:26: mg-trimeth [place] 800-160 mg 51 oprim 160 Medi jose per tablet mg tablet Bran ch predniSONE Yes prednisone U nivers 20 mg 8-24 20 mg ity of tablet 15:26: tablet [address] prazosin 1 Yes prazosin 1 U nivers mg capsule 8-24 mg capsule ity of 15:26: [address] ondansetron Yes ondansetro Univers 4 mg tablet 8-24 n HCl 4 mg it y of 15:26: tablet [place] 51 TAKE 1 Medical TABLET BY Branch MOUTH EVERY 12 HOURS NEEDED ondansetron Yes ondansetro Univers 4 mg 8-24 n 4 mg ity of disintegrat 15:26: disintegra [place] ing tablet 51 ting Medical tablet Branch Nitrofurant Yes nitrofuran Univers oin&Nit. 8-24 toin ity of Macrocryst 15:26: monohydrat [place] 100 mg 51 e/macrocry Medical capsule stals 100 Branch mg capsule lurasidone Yes Latuda 20 Un alberto 20 mg 8-24 mg tablet ity of tablet 15:26: [address] Sodium Yes Denta 5000 Unive rs Fluoride, 824 Plus 1.1 % ity of Dental Gel, 15:26: cream USE [place] 1.1 % Crea 51 TWICE A Medica l DAY IN THE Branch MORNING AND AT NIGHT. DO NOT EAT OR DRINK FOR AT LEAST 30 MINS fluconazole Yes fluconazol Univers 200 mg 8-24 e 200 mg ity of tablet 15:26: tablet [place] 51 [facility] escitalopra Yes escitalopr Univers m oxalate 8-24 am 20 mg ity of 20 mg 15:26: tablet [place] tablet [address] [place] [address] doxylamine- Yes Diclegis Un alberto pyridoxine, 8-24 10 mg-10 ity of vit B6, 15:26: mg [place] 10-10 mg 51 tablet,del Medic al per tablet ayed Branch release TAKE 1 TABLET BY MOUTH THREE TIMES A DAY NEEDED AND 2 AT BEDTIME diphenoxyla Yes diphenoxyl Univers te-atropine 8-24 ate-atropi it y of 2.5-0.025 15:26: ne 2.5 [place] mg tablet 51 mg-0.025 Medica l mg tablet [place] dicyclomine Yes dicyclomin Univers 20 mg 8-24 e 20 mg ity of tablet 15:26: tablet [place] 51 TAKE 1 Medical TABLET BY Branch MOUTH EVERY 6 HOURS NEEDED clindamycin Yes clindamyci Univers 300 mg 8-24 n HCl 300 ity of capsule 15:26: mg capsule [place] 51 Take 1 Medical capsule 3 Branch times a day by oral route for 10 days. ciprofloxac Yes ciprofloxa Univers in HCl 500 8-24 monica 500 mg ity of mg tablet 15:26: tablet [address] chlorhexidi Yes chlorhexid Univers ne 0.12 % 8-24 ine ity of mouthwash 15:26: gluconate [place] as 51 0.12 % Medical mouthwash Branch USE TWICE DAILY cephALEXin Yes cephalexin U nivers 500 mg 8-24 500 mg ity of capsule 15:26: capsule [address] busPIRone 5 Yes buspirone U nivers mg tablet 8-24 5 mg ity of 15:26: tablet [address] azithromyci Yes azithromyc Univers n 250 mg 8-24 in 250 mg ity of tablet 15:26: tablet [place] [address] TAKE BY Medical MOUTH 2 Branch TABLETS TODAY THEN 1 TABLE DAILY FOR NEXT 4 DAYS ARIPiprazol Yes aripiprazo Univers e 5 mg 8-24 le 5 mg ity of tablet 15:26: tablet [address] PNV 67-iron Yes Vitafol Uni vers ps-folate 8-24 Ultra 29 ity of no.1-dha 15:26: mg [place]-1 [place] (VITAFOL 51 mg-200 mg Medica l ULTRA) 29 capsule Branch mg iron- 1 mg-200 mg Cap norgestimat Yes Sprintec Un alberto e-ethinyl 8-24 (28) 0.25 ity o f estradioL 15:26: mg-35 mcg [place] 0.25-35 51 tablet Medical mg-mcg per TAKE 1 Branch tablet TABLET BY MOUTH EVERY DAY Yes Prenatabs Univ ers vit,calc76/ 8-24 Rx 29 mg ity of iron/folic 15:26: [place]-1 [place] (PRENATABS 51 tablet Medical RX ORAL) Branch iron-FA-dha Yes EnLyte 1.5 Univers -epa-FAD-NA 8-24 mg ity of DH-be-mv 15:26: iron-8.73 [place] (ENLYTE) 51 mg Medical 1.5 mg capsule,im Branch iron- 8.73 mediate - mg CpID delay release PNV38/iron, Yes CitraNatal Univers crb,g/folic 8-24 Assure 35 ity of /dss/dha 15:26: mg iron-1 [place] (CITRANATAL 51 mg-50 Medical ASSURE mg-300 mg [place] ORAL) oral pack SUMAtriptan Yes sumatripta Univers 50 mg 8-24 n 50 mg ity of tablet 15:26: tablet [address] sulfamethox Yes sulfametho Univers azole-trime 8-24 xazole 800 it y of thoprim 15:26: mg-trimeth [place] 800-160 mg 51 oprim 160 Medi jose per tablet mg tablet Bran ch predniSONE Yes prednisone U nivers 20 mg 8-24 20 mg ity of tablet 15:26: tablet [address] prazosin 1 Yes prazosin 1 U nivers mg capsule 8-24 mg capsule ity of 15:26: [address] ondansetron Yes ondansetro Univers 4 mg tablet 8-24 n HCl 4 mg it y of 15:26: tablet [place] [address] TAKE 1 Medical TABLET BY [place] MOUTH EVERY 12 HOURS NEEDED ondansetron Yes ondansetro Univers 4 mg 8-24 n 4 mg ity of disintegrat 15:26: disintegra [facility] tablet 51 ting Medical tablet [place] Nitrofurant Yes nitrofuran Univers oin&Nit. 8-24 toin ity of Macrocryst 15:26: monohydrat [place] 100 mg 51 e/macrocry Medical capsule stals 100 Branch mg capsule lurasidone Yes Latuda 20 Un alberto 20 mg 8-24 mg tablet ity of tablet 15:26: [address] Sodium Yes Denta 5000 Unive rs Fluoride, 8-24 Plus 1.1 % ity of Dental Gel, 15:26: cream USE [place] 1.1 % Crea 51 TWICE A Medica l DAY IN THE [place] MORNING AND AT NIGHT. DO NOT EAT OR DRINK FOR AT LEAST 30 MINS fluconazole Yes fluconazol Univers 200 mg 8-24 e 200 mg ity of tablet 15:26: tablet [address] escitalopra Yes escitalopr Univers m oxalate 8-24 am 20 mg ity of 20 mg 15:26: tablet [facility] 51 Medical [place] doxylamine- Yes Diclefranklyn dominguez pyridoxine, 8-24 10 mg-10 ity of vit B6, 15:26: mg [place] 10-10 mg 51 tablet,del Medic al per tablet ayed Branch release TAKE 1 TABLET BY MOUTH THREE TIMES A DAY NEEDED AND 2 AT BEDTIME diphenoxyla Yes diphenoxyl Univers te-atropine 8-24 ate-atropi it y of 2.5-0.025 15:26: ne 2.5 [place] mg tablet 51 mg-0.025 Medica l mg tablet Branch dicyclomine Yes dicyclomin Univers 20 mg 8-24 e 20 mg ity of tablet 15:26: tablet [place] [address] TAKE 1 Medical TABLET BY Branch MOUTH EVERY 6 HOURS NEEDED clindamycin Yes clindamyci Univers 300 mg 8-24 n HCl 300 ity of capsule 15:26: mg capsule [place] 51 Take 1 Medical capsule 3 Branch times a day by oral route for 10 days. ciprofloxac Yes ciprofloxa Univers in HCl 500 8-24 monica 500 mg ity of mg tablet 15:26: tablet [address] chlorhexidi Yes chlorhexid Univers ne 0.12 % 8-24 ine ity of mouthwash 15:26: gluconate [place] 51 0.12 % Medical mouthwash [place] USE TWICE DAILY cephALEXin Yes cephalexin U nivers 500 mg 8-24 500 mg ity of capsule 15:26: capsule [address] busPIRone 5 Yes buspirone U nivers mg tablet 8-24 5 mg ity of 15:26: tablet [address] azithromyci Yes azithromyc Univers n 250 mg 8-24 in 250 mg ity of tablet 15:26: tablet [place] 51 TAKE BY Medical MOUTH 2 Branch TABLETS TODAY THEN 1 TABLE DAILY FOR NEXT 4 DAYS ARIPiprazol Yes aripiprazo Univers e 5 mg 8-24 le 5 mg ity of tablet 15:26: tablet [address] PNV 67-iron Yes Vitafol Uni vers ps-folate 8-24 Ultra 29 ity of no.1-dha 15:26: mg iron-1 [place] (VITAFOL 51 mg-200 mg Medica l ULTRA) 29 capsule Branch mg iron- 1 mg-200 mg Cap norgestimat Yes Sprintec Un alberto e-ethinyl 8-24 (28) 0.25 ity o f estradioL 15:26: mg-35 mcg [place] 0.25-35 51 tablet Medical mg-mcg per TAKE 1 Branch tablet TABLET BY MOUTH EVERY DAY Yes [facility] ers vit,calc76/ 8-24 Rx 29 mg ity of iron/folic 15:26: iron-1 [place] (PRENATABS 51 tablet Medical RX ORAL) [place] iron-FA-dha Yes EnLyte 1.5 Univers -epa-FAD-NA 8-24 mg ity of DH-be-mv 15:26: iron-8.73 [place] (ENLYTE) 51 mg Medical 1.5 mg capsule,im Branch iron- 8.73 mediate - mg CpID delay release PNV38/iron, Yes CitraNatal Univers crb,g/folic 8-24 Assure 35 ity of /dss/dha 15:26: mg iron-1 [place] (CITRANATAL 51 mg-50 Medical ASSURE mg-300 mg Branch ORAL) oral pack SUMAtriptan Yes sumatripta Univers 50 mg 8-24 n 50 mg ity of tablet 15:26: tablet [address] sulfamethox Yes sulfametho Univers azole-trime 8-24 xazole 800 it y of thoprim 15:26: mg-trimeth [place] 800-160 mg 51 oprim 160 Medi jose per tablet mg tablet Bran ch predniSONE Yes prednisone U nivers 20 mg 8-24 20 mg ity of tablet 15:26: tablet [address] prazosin 1 Yes prazosin 1 U nivers mg capsule 8-24 mg capsule ity of 15:26: [address] ondansetron Yes ondansetro Univers 4 mg tablet 8-24 n HCl 4 mg it y of 15:26: tablet [place] 51 TAKE 1 Medical TABLET BY Branch MOUTH EVERY 12 HOURS NEEDED ondansetron Yes ondansetro Univers 4 mg 8-24 n 4 mg ity of disintegrat 15:26: disintegra [place] ing tablet 51 ting Medical tablet [place] Nitrofurant Yes nitrofuran Univers oin&Nit. 8-24 toin ity of Macrocryst 15:26: monohydrat [place] 100 mg 51 e/macrocry Medical capsule stals 100 Branch mg capsule lurasidone Yes Latuda 20 Un alberto 20 mg 8-24 mg tablet ity of tablet 15:26: [address] Sodium Yes Denta 5000 Unive rs Fluoride, 824 Plus 1.1 % ity of Dental Gel, 15:26: cream USE [place] 1.1 % Crea 51 TWICE A Medica l DAY IN THE Branch MORNING AND AT NIGHT. DO NOT EAT OR DRINK FOR AT LEAST 30 MINS fluconazole Yes fluconazol Univers 200 mg 8-24 e 200 mg ity of tablet 15:26: tablet [address] escitalopra Yes escitalopr Univers m oxalate 8-24 am 20 mg ity of 20 mg 15:26: tablet [place] tablet [address] [place] [address] Branch doxylamine- Yes Diclegis Un alberto pyridoxine, 8-24 10 mg-10 ity of vit B6, 15:26: mg [place] 10-10 mg 51 tablet,del Medic al per tablet ayed Branch release TAKE 1 TABLET BY MOUTH THREE TIMES A DAY NEEDED AND 2 AT BEDTIME diphenoxyla Yes diphenoxyl Univers te-atropine 8-24 ate-atropi it y of 2.5-0.025 15:26: ne 2.5 [place] mg tablet 51 mg-0.025 Medica l mg tablet [place] dicyclomine Yes dicyclomin Univers 20 mg 8-24 e 20 mg ity of tablet 15:26: tablet [place] 51 TAKE 1 Medical TABLET BY Branch MOUTH EVERY 6 HOURS NEEDED clindamycin Yes clindamyci Univers 300 mg 8-24 n HCl 300 ity of capsule 15:26: mg capsule [place] 51 Take 1 Medical capsule 3 Branch times a day by oral route for 10 days. ciprofloxac Yes ciprofloxa Univers in HCl 500 8-24 monica 500 mg ity of mg tablet 15:26: tablet [address] chlorhexidi Yes chlorhexid Univers ne 0.12 % 8-24 ine ity of mouthwash 15:26: gluconate [place] 51 0.12 % Medical mouthwash Branch USE TWICE DAILY cephALEXin Yes cephalexin U nivers 500 mg 8-24 500 mg ity of capsule 15:26: capsule [address] busPIRone 5 Yes buspirone U nivers mg tablet 8-24 5 mg ity of 15:26: tablet [address] azithromyci Yes azithromyc Univers n 250 mg 8-24 in 250 mg ity of tablet 15:26: tablet [place] [address] TAKE BY Medical MOUTH 2 Branch TABLETS TODAY THEN 1 TABLE DAILY FOR NEXT 4 DAYS ARIPiprazol Yes aripiprazo Univers e 5 mg 8-24 le 5 mg ity of tablet 15:26: tablet [address] PNV 67-iron Yes Vitafol Uni vers ps-folate 8-24 Ultra 29 ity of no.1-dha 15:26: mg [place]-1 [place] (VITAFOL 51 mg-200 mg Medica l ULTRA) 29 capsule Branch mg iron- 1 mg-200 mg Cap norgestimat Yes Sprintec Un alberto e-ethinyl 8-24 (28) 0.25 ity o f estradioL 15:26: mg-35 mcg [place] 0.25-35 51 tablet Medical mg-mcg per TAKE 1 Branch tablet TABLET BY MOUTH EVERY DAY Yes Prenatabs Univ ers vit,calc76/ 8-24 Rx 29 mg ity of iron/folic 15:26: iron-1 [place] (PRENATABS 51 tablet Medical RX ORAL) Branch iron-FA-dha Yes EnLyte 1.5 Univers -epa-FAD-NA 8-24 mg ity of DH-be-mv 15:26: iron-8.73 [place] (ENLYTE) 51 mg Medical 1.5 mg capsule,im Branch iron- 8.73 mediate - mg CpID delay release PNV38/iron, Yes CitraNatal Univers crb,g/folic 8-24 Assure 35 ity of /dss/dha 15:26: mg iron-1 [place] (CITRANATAL 51 mg-50 Medical ASSURE mg-300 mg Branch ORAL) oral pack QUEtiapine Yes Univers 100 mg 4-26 ity of tablet 00:00: [address] FLUoxetine 0 Yes Univers 40 mg 4-26 ity of capsule 00:00: [address] QUEtiapine 0 Yes Univers 100 mg 4-26 ity of tablet 00:00: [address] FLUoxetine 0 Yes Univers 40 mg 4-26 ity of capsule 00:00: [address] QUEtiapine 0 Yes Univers 100 mg 4-26 ity of tablet 00:00: [address] FLUoxetine 0 Yes Univers 40 mg 4-26 ity of capsule 00:00: [address] QUEtiapine 2021-0 Yes Univers 100 mg 4-26 ity of tablet 00:00: [address] FLUoxetine 2021-0 Yes Univers 40 mg 4-26 ity of capsule 00:00: [address] QUEtiapine 2021-0 Yes Univers 100 mg 4-26 ity of tablet 00:00: [address] FLUoxetine 2021-0 Yes Univers 40 mg 4-26 ity of capsule 00:00: [address] QUEtiapine 2021-0 Yes Univers 100 mg 4-26 ity of tablet 00:00: [address] FLUoxetine 2021-0 Yes Univers 40 mg 4-26 ity of capsule 00:00: [address] cetirizine 2021-0 Yes 10mg Take 10 mg U nivers 10 mg 4-18 by mouth ity of tablet 00:00: daily. [address] cetirizine 2021-0 Yes 10mg Take 10 mg U nivers 10 mg 4-18 by mouth ity of tablet 00:00: daily. [address] cetirizine 0 Yes 10mg Take 10 mg U nivers 10 mg 4-18 by mouth ity of tablet 00:00: daily. [address] cetirizine 0 Yes 10mg Take 10 mg U nivers 10 mg 4-18 by mouth ity of tablet 00:00: daily. [place] [facility] Branch cetirizine Yes 10mg Take 10 mg U nivers 10 mg 4-18 by mouth ity of tablet 00:00: daily. [place] [facility] cetirizine Yes 10mg Take 10 mg U nivers 10 mg 4-18 by mouth ity of tablet 00:00: daily. [place] [facility] Branch albuterol 2020-11 Yes 2{puff} Inhale 2 U nivers 90 1-02 Puffs ity of mcg/actuati 16:22: every 6 [place] as on inhaler 14 (six) Medical hours as Branch needed. albuterol 2020-11 Yes 2.5mg Inhale 2.5 U nivers 2.5 mg /3 1-02 mg every 4 ity of mL (0.083 16:22: (four) [place] %) 14 hours as Medical nebulizer needed. Branch solution FLUoxetine 2020-11 Yes fluoxetine U nivers 20 mg 1-02 20 mg ity of capsule 16:22: capsule TAKE 1 Medical CAPSULE BY Branch MOUTH EVERY DAY albuterol 2020-11 Yes 2{puff} Inhale 2 U nivers 90 1-02 Puffs ity of mcg/actuati 16:22: every 6 [place] as on inhaler 14 (six) Medical hours as Branch needed. albuterol 2020-11 Yes 2.5mg Inhale 2.5 U nivers 2.5 mg /3 1-02 mg every 4 ity of mL (0.083 16:22: (four) [place] %) 14 hours as Medical nebulizer needed. Branch solution FLUoxetine 2020-11 Yes fluoxetine U nivers 20 mg 1-02 20 mg ity of capsule 16:22: capsule 14 TAKE 1 Medical CAPSULE BY Branch MOUTH EVERY DAY albuterol 2020-11 Yes 2{puff} Inhale 2 U nivers 90 1-02 Puffs ity of mcg/actuati 16:22: every 6 [place]k as on inhaler 14 (six) Medical hours as Branch needed. albuterol 2020-11 Yes 2.5mg Inhale 2.5 U nivers 2.5 mg /3 1-02 mg every 4 ity of mL (0.083 16:22: (four) [place] %) 14 hours as Medical nebulizer needed. Branch solution FLUoxetine 2020-11 Yes fluoxetine U nivers 20 mg 1-02 20 mg ity of capsule 16:22: capsule [place] 14 TAKE 1 Medical CAPSULE BY Branch MOUTH EVERY DAY albuterol 2020-11 Yes 2{puff} Inhale 2 U nivers 90 1-02 Puffs ity of mcg/actuati 16:22: every 6 [place]k as on inhaler 14 (six) Medical hours as Branch needed. albuterol 2020-11 Yes 2.5mg Inhale 2.5 U nivers 2.5 mg /3 1-02 mg every 4 ity of mL (0.083 16:22: (four) [place] %) 14 hours as Medical nebulizer needed. Branch solution FLUoxetine 2020-11 Yes fluoxetine U nivers 20 mg 1-02 20 mg ity of capsule 16:22: capsule [place] 14 TAKE 1 Medical CAPSULE BY Branch MOUTH EVERY DAY albuterol 2020-11 Yes 2{puff} Inhale 2 U nivers 90 1-02 Puffs ity of mcg/actuati 16:22: every 6 [place]k as on inhaler 14 (six) Medical hours as Branch needed. albuterol 2020-11 Yes 2.5mg Inhale 2.5 U nivers 2.5 mg /3 1-02 mg every 4 ity of mL (0.083 16:22: (four) [place] %) 14 hours as Medical nebulizer needed. Branch solution FLUoxetine 2020-11 Yes fluoxetine U nivers 20 mg 1-02 20 mg ity of capsule 16:22: capsule [place] 14 TAKE 1 Medical CAPSULE BY Branch MOUTH EVERY DAY albuterol 2020-11 Yes 2{puff} Inhale 2 U nivers 90 1-02 Puffs ity of mcg/actuati 16:22: every 6 [place]k as on inhaler 14 (six) Medical hours as Branch needed. albuterol 2020-11 Yes 2.5mg Inhale 2.5 U nivers 2.5 mg /3 1-02 mg every 4 ity of mL (0.083 16:22: (four) [place] %) 14 hours as Medical nebulizer needed. Branch solution FLUoxetine 2020-11 Yes fluoxetine U nivers 20 mg 1-02 20 mg ity of capsule 16:22: capsule [place] 14 TAKE 1 Medical CAPSULE BY Branch MOUTH EVERY DAY docusate 2020-11 Yes [id number] 240mg Take 1 U nivers calcium 240 1-02 capsule by it y of mg capsule 00:00: mouth once [place] 00 daily as Medical needed for Branch Constipati on. ferrous 2020-11 Yes [id number] 325mg Take 1 Un alberto sulfate 325 1-02 tablet by ity of mg (65 mg 00:00: mouth 2 [place] iron) 00 (two) Medical tablet times Branch daily. docusate 2020-11 Yes [id number] 240mg Take 1 U nivers calcium 240 1-02 capsule by it y of mg capsule 00:00: mouth once [place] 00 daily as Medical needed for Branch Constipati on. ferrous 2020-11 Yes [id number] 325mg Take 1 Un alberto sulfate 325 1-02 tablet by ity of mg (65 mg 00:00: mouth 2 [place] iron) 00 (two) Medical tablet times Branch daily. docusate 2020-11 Yes [id number] 240mg Take 1 U nivers calcium 240 1-02 capsule by it y of mg capsule 00:00: mouth once [place] 00 daily as Medical needed for Branch Constipati on. ferrous 2020-11 Yes [id number] 325mg Take 1 Un alberto sulfate 325 1-02 tablet by ity of mg (65 mg 00:00: mouth 2 [place] iron) 00 (two) Medical tablet times Branch daily. docusate 2020-11 Yes [id number] 240mg Take 1 U nivers calcium 240 1-02 capsule by it y of mg capsule 00:00: mouth once [place] 00 daily as Medical needed for Branch Constipati on. ferrous 2020-11 Yes [id number] 325mg Take 1 Un alberto sulfate 325 1-02 tablet by ity of mg (65 mg 00:00: mouth 2 [place] iron) 00 (two) Medical tablet times Branch daily. docusate 2020-11 Yes [id number] 240mg Take 1 U nivers calcium 240 1-02 capsule by it y of mg capsule 00:00: mouth once [place] 00 daily as Medical needed for Branch Constipati on. ferrous 2020-11 Yes [id number] 325mg Take 1 Un alberto sulfate 325 1-02 tablet by ity of mg (65 mg 00:00: mouth 2 [place] iron) 00 (two) Medical tablet times Branch daily. docusate 2020-11 Yes [id number] 240mg Take 1 U nivers calcium 240 1-02 capsule by it y of mg capsule 00:00: mouth once [place] 00 daily as Medical needed for Branch Constipati on. ferrous 2020-11 Yes [id number] 325mg Take 1 Un alberto sulfate 325 -02 tablet by ity of mg (65 mg 00:00: mouth 2 [place] iron) 00 (two) Medical tablet times [place] daily. FLUoxetine Yes fluoxetine U nivers 20 mg 3-08 20 mg ity of capsule 18:17: capsule [place] 11 TAKE 1 Medical CAPSULE BY Branch MOUTH EVERY DAY albuterol Yes 2{puff} Inhale 2 U nivers 90 3-08 Puffs ity of mcg/actuati 16:46: every 6 [place]k as on inhaler 17 (six) Medical hours as Branch needed. albuterol Yes 2.5mg Inhale 2.5 U nivers 2.5 mg /3 3-08 mg every 4 ity of mL (0.083 16:46: (four) [place] %) 17 hours as Medical nebulizer needed. [place] solution QUEtiapine 2018-11 Yes 50mg Take 50 mg U nivers 50 mg 1-25 by mouth ity of tablet 00:00: daily. [address] QUEtiapine 2018-11 Yes 50mg Take 50 mg U nivers 50 mg 1-25 by mouth ity of tablet 00:00: daily. [address] QUEtiapine 2018-11 Yes 50mg Take 50 mg U nivers 50 mg 1-25 by mouth ity of tablet 00:00: daily. [address] QUEtiapine 2018-11 Yes 50mg Take 50 mg U nivers 50 mg 1-25 by mouth ity of tablet 00:00: daily. [address] QUEtiapine 2018-11 Yes 50mg Take 50 mg U nivers 50 mg 1-25 by mouth ity of tablet 00:00: daily. [address] QUEtiapine 2018-11 Yes 50mg Take 50 mg U nivers 50 mg 1-25 by mouth ity of tablet 00:00: daily. [address] QUEtiapine 2018-11 Yes 50mg Take 50 mg U nivers 50 mg 1-25 by mouth ity of tablet 00:00: daily. [address] Immunizations Ordered Immunization Filled Immunization Date Status Commen ts Source Name Name Influenza Virus 2021-09-06 Completed Universit y of Vaccine Quad IM, 00:00:00 [place] Me [facility]ical Preserv and ABX Free Bran ch 6 MO-64 YRS Influenza Virus 2021-09-06 Completed Universit y of Vaccine Quad IM, 00:00:00 [place] Me dical Preserv and ABX Free Bran ch 6 MO-64 YRS Influenza Virus 2021-09-06 Completed Universit y of Vaccine Quad IM, 00:00:00 [place] Me dical Preserv and ABX Free Bran ch 6 MO-64 YRS Influenza Virus 2021-09-06 Completed Universit y of Vaccine Quad IM, 00:00:00 [place] Me dical Preserv and ABX Free Bran ch 6 MO-64 YRS Influenza Virus 2021-09-06 Completed Universit y of Vaccine Quad IM, 00:00:00 [place] Me dical Preserv and ABX Free Bran ch 6 MO-64 YRS Influenza Virus 2021-09-06 Completed Universit y of Vaccine Quad IM, 00:00:00 [place] Me dical Preserv and ABX Free Bran ch 6 MO-64 YRS TDAP 2021-07-17 Completed University of 00:00:00 [facility] TDAP 2021-07-17 Completed University of 00:00:00 [facility] TDAP 2021-07-17 Completed University of 00:00:00 [facility] TDAP 2021-07-17 Completed University of 00:00:00 [facility] TDAP 2021-07-17 Completed University of 00:00:00 [facility] TDAP 2021-07-17 Completed University of 00:00:00 [facility] Rho (d) Immune 2021-05-29 Completed University of Globulin 00:00:00 [facility] Rho (d) Immune 2021-05-29 Completed University of Globulin 00:00:00 [facility] Rho (d) Immune 2021-05-29 Completed University of Globulin 00:00:00 [facility] Rho (d) Immune 2021-05-29 Completed University of Globulin 00:00:00 [facility] Rho (d) Immune 2021-05-29 Completed University of Globulin 00:00:00 [facility] Rho (d) Immune 2021-05-29 Completed University of Globulin 00:00:00 [facility] MMR 2020-02-01 Completed University of 00:00:00 [facility] Rho (d) Immune 2020-02-01 Completed University of Globulin 00:00:00 [facility] MMR 2020-02-01 Completed University of 00:00:00 [facility] Rho (d) Immune 2020-02-01 Completed University of Globulin 00:00:00 [facility] MMR 2020-02-01 Completed University of 00:00:00 [facility] Rho (d) Immune 2020-02-01 Completed University of Globulin 00:00:00 [facility] MMR 2020-02-01 Completed University of 00:00:00 [facility] Rho (d) Immune 2020-02-01 Completed University of Globulin 00:00:00 [facility] MMR 2020-02-01 Completed University of 00:00:00 [facility] Rho (d) Immune 2020-02-01 Completed University of Globulin 00:00:00 [facility] MMR 2020-02-01 Completed University of 00:00:00 [facility] Rho (d) Immune 2020-02-01 Completed University of Globulin 00:00:00 [facility] MMR 2020-02-01 Completed University of 00:00:00 [facility] Rho (d) Immune 2020-02-01 Completed University of Globulin 00:00:00 [facility] TDAP (ADACEL) VACCINE 2019-12-08 Completed Uni versity of 00:00:00 [facility] TDAP (ADACEL) VACCINE 2019-12-08 Completed Uni versity of 00:00:00 [facility] TDAP (ADACEL) VACCINE 2019-12-08 Completed Uni versity of 00:00:00 [facility] TDAP (ADACEL) VACCINE 2019-12-08 Completed Uni versity of 00:00:00 [facility] TDAP (ADACEL) VACCINE 2019-12-08 Completed Uni versity of 00:00:00 [facility] TDAP (ADACEL) VACCINE 2019-12-08 Completed Uni versity of 00:00:00 [facility] TDAP (ADACEL) VACCINE 2019-12-08 Completed Uni versity of 00:00:00 [facility] Influenza Virus 2019-08-18 Completed Universit y of Vaccine Quad .5 mL IM 00:00:00 [facility] 6+ MO [place] Influenza Virus 2019-08-18 Completed Universit y of Vaccine 00:00:00 [facility] Influenza Virus 2019-08-18 Completed Universit y of Vaccine Quad .5 mL IM 00:00:00 [place] as Medical 6+ MO Branch Influenza Virus 2019-08-18 Completed Universit y of Vaccine 00:00:00 [facility] Influenza Virus 2019-08-18 Completed Universit y of Vaccine Quad .5 mL IM 00:00:00 [place] as Medical 6+ MO Branch Influenza Virus 2019-08-18 Completed Universit y of Vaccine 00:00:00 [facility] Influenza Virus 2019-08-18 Completed Universit y of Vaccine Quad .5 mL IM 00:00:00 [place] as Medical 6+ MO Branch Influenza Virus 2019-08-18 Completed Universit y of Vaccine 00:00:00 [facility] Influenza Virus 2019-08-18 Completed Universit y of Vaccine Quad .5 mL IM 00:00:00 [place] as Medical 6+ MO Branch Influenza Virus 2019-08-18 Completed Universit y of Vaccine 00:00:00 [facility] Influenza Virus 2019-08-18 Completed Universit y of Vaccine Quad .5 mL IM 00:00:00 [place] as Medical 6+ MO Branch Influenza Virus 2019-08-18 Completed Universit y of Vaccine 00:00:00 [facility] Influenza Virus 2019-08-18 Completed Universit y of Vaccine Quad .5 mL IM 00:00:00 [place] as Medical 6+ MO Branch Influenza Virus 2019-08-18 Completed Universit y of Vaccine 00:00:00 [facility] Rho (d) Immune 2019-07-27 Completed University of Globulin 00:00:00 [facility] Rho (d) Immune 2019-07-27 Completed University of Globulin 00:00:00 [facility] Rho (d) Immune 2019-07-27 Completed University of Globulin 00:00:00 [facility] Rho (d) Immune 2019-07-27 Completed University of Globulin 00:00:00 [facility] Rho (d) Immune 2019-07-27 Completed University of Globulin 00:00:00 [facility] Rho (d) Immune 2019-07-27 Completed University of Globulin 00:00:00 [facility] Rho (d) Immune 2019-07-27 Completed University of Globulin 00:00:00 [facility] Influenza Virus 2018-09-10 Completed Universit y of Vaccine Quad IM 3+ 00:00:00 [facility] Influenza Virus 2018-09-10 Completed Universit y of Vaccine Quad IM 3+ 00:00:00 [facility] Influenza Virus 2018-09-10 Completed Universit y of Vaccine Quad IM 3+ 00:00:00 [facility] Influenza Virus 2018-09-10 Completed Universit y of Vaccine Quad IM 3+ 00:00:00 [facility] Influenza Virus 2018-09-10 Completed Universit y of Vaccine Quad IM 3+ 00:00:00 [facility] Influenza Virus 2018-09-10 Completed Universit y of Vaccine Quad IM 3+ 00:00:00 [facility] Influenza Virus 2017-09-12 Completed Universit y of Vaccine Quad IM 3+ 00:00:00 [facility] Influenza Virus 2017-09-12 Completed Universit y of Vaccine Quad IM 3+ 00:00:00 [facility] Influenza Virus 2017-09-12 Completed Universit y of Vaccine Quad IM 3+ 00:00:00 [facility] Influenza Virus 2017-09-12 Completed Universit y of Vaccine Quad IM 3+ 00:00:00 [facility] Influenza Virus 2017-09-12 Completed Universit y of Vaccine Quad IM 3+ 00:00:00 [facility] Influenza Virus 2017-09-12 Completed Universit y of Vaccine Quad IM 3+ 00:00:00 [facility] Influenza Virus 2015-10-13 Completed Universit y of Vaccine Nasal 00:00:00 [facility] Influenza Virus 2015-10-13 Completed Universit y of Vaccine Nasal 00:00:00 [facility] Influenza Virus 2015-10-13 Completed Universit y of Vaccine Nasal 00:00:00 [facility] Influenza Virus 2015-10-13 Completed Universit y of Vaccine Nasal 00:00:00 [facility] Influenza Virus 2015-10-13 Completed Universit y of Vaccine Nasal 00:00:00 [facility] Influenza Virus 2015-10-13 Completed Universit y of Vaccine Nasal 00:00:00 [facility] Influenza Virus 2014-09-02 Completed Universit y of Vaccine 00:00:00 [facility] Influenza Virus 2014-09-02 Completed Universit y of Vaccine 00:00:00 [facility] Influenza Virus 2014-09-02 Completed Universit y of Vaccine 00:00:00 [facility] Influenza Virus 2014-09-02 Completed Universit y of Vaccine 00:00:00 [facility] Influenza Virus 2014-09-02 Completed Universit y of Vaccine 00:00:00 [facility] Influenza Virus 2014-09-02 Completed Universit y of Vaccine 00:00:00 [facility] HPV 2014-01-18 Completed University of 00:00:00 [facility] Meningococcal Vaccine 2014-01-18 Completed Uni versity of 00:00:00 [facility] [facility] Varicella 2014-01-18 Completed [facility] (varivax)(chicken 00:00:00 [place] [facility] HPV 2014-01-18 Completed [facility] 00:00:00 [facility] Meningococcal Vaccine 2014-01-18 Completed Uni versity of 00:00:00 [facility] Varicella 2014-01-18 Completed [facility] (varivax)(chicken 00:00:00 [place] [facility] TDAP 2014-01-18 Completed [facility] 00:00:00 [facility] Meningococcal 2014-01-18 Completed [facility] Polysaccharide 00:00:00 [place] [facility] (groups A, C, Y and Branc h W-135) conjugate vaccine (MCV4P) HPV 2014-01-18 Completed [facility] 00:00:00 [facility] Meningococcal Vaccine 2014-01-18 Completed Uni versity of 00:00:00 [facility] Varicella 2014-01-18 Completed [facility] (varivax)(chicken 00:00:00 [place] [facility] pox[facility] TDAP 2014-01-18 Completed [facility] 00:00:00 [facility] Meningococcal 2014-01-18 Completed [facility] Polysaccharide 00:00:00 [place] [facility] (groups A, C, Y and Branc h W-135) conjugate vaccine (MCV4P) HPV 2014-01-18 Completed [facility] 00:00:00 [facility] Meningococcal Vaccine 2014-01-18 Completed Uni versity of 00:00:00 [facility] Varicella 2014-01-18 Completed [facility] (varivax)(chicken 00:00:00 [place] [facility]ox[facility] TDAP 2014-01-18 Completed [facility] 00:00:00 [facility] Meningococcal 2014-01-18 Completed [facility] Polysaccharide 00:00:00 [place] [facility] (groups A, C, Y and Branc h W-135) conjugate vaccine (MCV4P) HPV 2014-01-18 Completed [facility] 00:00:00 [facility] Meningococcal Vaccine 2014-01-18 Completed Uni versity of 00:00:00 [facility] Varicella 2014-01-18 Completed [facility] (varivax)(chicken 00:00:00 [place] [facility] TDAP 2014-01-18 Completed [facility] 00:00:00 [facility] Meningococcal 2014-01-18 Completed [facility] of Polysaccharide 00:00:00 [facility] jose (groups A, C, Y and Branc h W-135) conjugate vaccine (MCV4P) HPV 2014-01-18 Completed [facility] of 00:00:00 [facility] Meningococcal Vaccine 2014-01-18 Completed Uni versity of 00:00:00 [facility] Varicella 2014-01-18 Completed [facility] (varivax)(chicken 00:00:00 [place] [facility] TDAP 2014-01-18 Completed [facility] 00:00:00 [facility] Meningococcal 2014-01-18 Completed [facility] of Polysaccharide 00:00:00 [facility] jose (groups A, C, Y and Branc h W-135) conjugate vaccine (MCV4P) HPV 2014-01-18 Completed [facility] 00:00:00 [facility] Meningococcal Vaccine 2014-01-18 Completed Uni versity of 00:00:00 [facility] Varicella 2014-01-18 Completed [facility] (varivax)(chicken 00:00:00 [place] [facility] TDAP 2014-01-18 Completed [facility] 00:00:00 [facility] Meningococcal 2014-01-18 Completed [facility] of Polysaccharide 00:00:00 [facility] jose (groups A, C, Y and Branc h W-135) conjugate vaccine (MCV4P) Influenza Virus 2013-09-23 Completed Universit y of Vaccine 00:00:00 [facility] Influenza Virus 2013-09-23 Completed [facility]it y of Vaccine 00:00:00 [facility] Influenza Virus 2013-09-23 Completed [facility]it y of Vaccine 00:00:00 [facility] Influenza Virus 2013-09-23 Completed Universit y of Vaccine 00:00:00 [facility] Influenza Virus 2013-09-23 Completed [facility]it y of Vaccine 00:00:00 [facility] Influenza Virus 2013-09-23 Completed [facility]it y of Vaccine 00:00:00 [facility] Influenza Virus 2012-11-24 Completed [facility]it y of Vaccine 00:00:00 [facility] Influenza Virus 2012-11-24 Completed [facility]it y of Vaccine 00:00:00 [facility] Influenza Virus 2012-11-24 Completed [facility]it y of Vaccine 00:00:00 [facility] Influenza Virus 2012-11-24 Completed [facility]it y of Vaccine 00:00:00 [facility] Influenza Virus 2012-11-24 Completed [facility]it y of Vaccine 00:00:00 [facility] Influenza Virus 2012-11-24 Completed [facility]it y of Vaccine 00:00:00 [facility] Influenza Virus 2011-08-23 Completed Universit y of Vaccine Nasal 00:00:00 [facility] Influenza Virus 2011-08-23 Completed Universit y of Vaccine Nasal 00:00:00 [facility] Influenza Virus 2011-08-23 Completed Universit y of Vaccine Nasal 00:00:00 [facility] Influenza Virus 2011-08-23 Completed Universit y of Vaccine Nasal 00:00:00 [facility] Influenza Virus 2011-08-23 Completed Universit y of Vaccine Nasal 00:00:00 [facility] Influenza Virus 2011-08-23 Completed Universit y of Vaccine Nasal 00:00:00 [facility] HPV 2011-07-04 Completed [facility] of 00:00:00 [facility] HPV 2011-07-04 Completed [facility] 00:00:00 [facility] HPV 2011-07-04 Completed [facility] 00:00:00 [facility] HPV 2011-07-04 Completed [facility] 00:00:00 [facility] HPV 2011-07-04 Completed [facility] 00:00:00 [facility] HPV 2011-07-04 Completed [facility] 00:00:00 [facility] HPV 2011-07-04 Completed [facility] 00:00:00 [facility] Influenza Virus 2010-09-06 Completed [facility]it [facility] of Vaccine 00:00:00 [facility] Influenza Virus 2010-09-06 Completed [facility]it y of Vaccine 00:00:00 [facility] Influenza Virus 2010-09-06 Completed [facility]it y of Vaccine 00:00:00 [facility] Influenza Virus 2010-09-06 Completed [facility]it y of Vaccine 00:00:00 [facility] Influenza Virus 2010-09-06 Completed [facility]it y of Vaccine 00:00:00 [facility] Influenza Virus 2010-09-06 Completed Universit y of Vaccine 00:00:00 [facility] HEPATITIS A 2006-12-16 Completed [facility] of 00:00:00 [facility] HEPATITIS A 2006-12-16 Completed [facility] 00:00:00 [facility] HEPATITIS A 2006-12-16 Completed [facility] of 00:00:00 [facility] HEPATITIS A 2006-12-16 Completed [facility] 00:00:00 [facility] HEPATITIS A 2006-12-16 Completed [facility] 00:00:00 [facility] HEPATITIS A 2006-12-16 Completed [facility] 00:00:00 [facility] HEPATITIS A 2006-12-16 Completed [facility] 00:00:00 [facility] HEPATITIS A 2005-10-11 Completed [facility] of 00:00:00 [facility] HEPATITIS A 2005-10-11 Completed [facility] 00:00:00 [facility] HEPATITIS A 2005-10-11 Completed [facility] 00:00:00 [facility] HEPATITIS A 2005-10-11 Completed [facility] 00:00:00 [facility] HEPATITIS A 2005-10-11 Completed [facility] 00:00:00 [facility] HEPATITIS A 2005-10-11 Completed [facility] 00:00:00 [facility] HEPATITIS A 2005-10-11 Completed [facility] 00:00:00 [facility] Influenza Virus 2003-09-06 Completed Universit y of Vaccine 00:00:00 [facility] Influenza Virus 2003-09-06 Completed [facility]it y of Vaccine 00:00:00 [facility] Influenza Virus 2003-09-06 Completed [facility]it y of Vaccine 00:00:00 [facility] Influenza Virus 2003-09-06 Completed [facility]it y of Vaccine 00:00:00 [facility] Influenza Virus 2003-09-06 Completed [facility]it y of Vaccine 00:00:00 [facility] Influenza Virus 2003-09-06 Completed [facility]it y of Vaccine 00:00:00 [facility] DTAP 2003-02-08 Completed [facility] of 00:00:00 [facility] HIB 4 Dose Schedule 2003-02-08 Completed Unive rsity of 00:00:00 [facility] DTAP 2003-02-08 Completed [facility] 00:00:00 [facility] HIB 4 Dose Schedule 2003-02-08 Completed Unive rsity of 00:00:00 [facility] TDAP 2003-02-08 Completed [facility] 00:00:00 [facility] Heamophilus Influenza 2003-02-08 Completed Uni versity of B 00:00:00 [facility] DTAP 2003-02-08 Completed [facility] 00:00:00 [facility] HIB 4 Dose Schedule 2003-02-08 Completed Unive rsity of 00:00:00 [facility] TDAP 2003-02-08 Completed [facility] 00:00:00 [facility] Heamophilus Influenza 2003-02-08 Completed Uni versity of B 00:00:00 [facility] DTAP 2003-02-08 Completed [facility] 00:00:00 [facility] HIB 4 Dose Schedule 2003-02-08 Completed Unive rsity of 00:00:00 [facility] TDAP 2003-02-08 Completed [facility] 00:00:00 [facility] Heamophilus Influenza 2003-02-08 Completed Uni versity of B 00:00:00 [facility] DTAP 2003-02-08 Completed [facility] 00:00:00 [facility] HIB 4 Dose Schedule 2003-02-08 Completed Unive rsity of 00:00:00 [facility] TDAP 2003-02-08 Completed [facility] 00:00:00 [facility] Heamophilus Influenza 2003-02-08 Completed Uni versity of B 00:00:00 [facility] DTAP 2003-02-08 Completed [facility] 00:00:00 [facility] HIB 4 Dose Schedule 2003-02-08 Completed Unive rsity of 00:00:00 [facility] TDAP 2003-02-08 Completed [facility] 00:00:00 [facility] Heamophilus Influenza 2003-02-08 Completed Uni versity of B 00:00:00 [facility] DTAP 2003-02-08 Completed [facility] of 00:00:00 [facility] HIB 4 Dose Schedule 2003-02-08 Completed Unive rsity of 00:00:00 [facility] TDAP 2003-02-08 Completed [facility] of 00:00:00 [facility] Heamophilus Influenza 2003-02-08 Completed Uni versity of B 00:00:00 [facility] Varicella 2002-11-23 Completed [facility] (varivax)(chicken 00:00:00 [place] [facility] MMR 2002-11-23 Completed [facility] 00:00:00 [facility] IPV 2002-11-23 Completed [facility] 00:00:00 [facility] Varicella 2002-11-23 Completed [facility] (varivax)(chicken 00:00:00 [place] [facility]ox[facility] MMR 2002-11-23 Completed [facility] 00:00:00 [facility] IPV 2002-11-23 Completed [facility] 00:00:00 [facility] Varicella 2002-11-23 Completed [facility] (varivax)(chicken 00:00:00 [place] [facility] pox[facility] MMR 2002-11-23 Completed [facility] 00:00:00 [facility] Varicella 2002-11-23 Completed [facility] (varivax)(chicken 00:00:00 [place] [facility] p[facility] MMR 2002-11-23 Completed [facility] 00:00:00 [facility] IPV 2002-11-23 Completed [facility] 00:00:00 [facility] Varicella 2002-11-23 Completed [facility] (varivax)(chicken 00:00:00 [place] [facility] MMR 2002-11-23 Completed [facility] 00:00:00 [facility] IPV 2002-11-23 Completed [facility] 00:00:00 [facility] Varicella 2002-11-23 Completed [facility] (varivax)(chicken 00:00:00 [place] [facility] pox[facility] MMR 2002-11-23 Completed [facility] 00:00:00 [facility] IPV 2002-11-23 Completed [facility] 00:00:00 [facility] Varicella 2002-11-23 Completed [facility] of (varivax)(chicken 00:00:00 [facility] edical pox) Branch MMR 2002-11-23 Completed [facility] of 00:00:00 [facility] IPV 2002-11-23 Completed [facility] of 00:00:00 [facility] DTAP 2002-08-03 Completed [facility] 00:00:00 [facility] HIB 4 Dose Schedule 2002-08-03 Completed Unive rsity of 00:00:00 [facility] Hep B, Adol or Pedi 2002-08-03 Completed Unive rsity of Dosage 00:00:00 [facility] TDAP 2002-08-03 Completed [facility] of 00:00:00 [facility] Heamophilus Influenza 2002-08-03 Completed Uni versity of B 00:00:00 [facility] DTAP 2002-08-03 Completed [facility] of 00:00:00 [facility] HIB 4 Dose Schedule 2002-08-03 Completed Unive rsity of 00:00:00 [facility] Hep B, Adol or Pedi 2002-08-03 Completed Unive rsity of Dosage 00:00:00 [facility] TDAP 2002-08-03 Completed [facility] 00:00:00 [facility] Heamophilus Influenza 2002-08-03 Completed Uni versity of B 00:00:00 [place] [facility] DTAP 2002-08-03 Completed [facility] 00:00:00 [facility] HIB 4 Dose Schedule 2002-08-03 Completed Unive rsity of 00:00:00 [facility] Hep B, Adol or Pedi 2002-08-03 Completed Unive rsity of Dosage 00:00:00 [facility] TDAP 2002-08-03 Completed [facility] of 00:00:00 [facility] Heamophilus Influenza 2002-08-03 Completed Uni versity of B 00:00:00 [facility] DTAP 2002-08-03 Completed [facility] of 00:00:00 [facility] HIB 4 Dose Schedule 2002-08-03 Completed Unive rsity of 00:00:00 [facility] Hep B, Adol or Pedi 2002-08-03 Completed Unive rsity of Dosage 00:00:00 [facility] TDAP 2002-08-03 Completed [facility] 00:00:00 [facility] Heamophilus Influenza 2002-08-03 Completed Uni versity of B 00:00:00 [facility] DTAP 2002-08-03 Completed [facility] 00:00:00 [facility] HIB 4 Dose Schedule 2002-08-03 Completed Unive rsity of 00:00:00 [facility] Hep B, Adol or Pedi 2002-08-03 Completed Unive rsity of Dosage 00:00:00 [facility] TDAP 2002-08-03 Completed [facility] of 00:00:00 [facility] Heamophilus Influenza 2002-08-03 Completed Uni versity of B 00:00:00 [facility] DTAP 2002-08-03 Completed [facility] 00:00:00 [facility] HIB 4 Dose Schedule 2002-08-03 Completed Unive rsity of 00:00:00 [facility] Hep B, Adol or Pedi 2002-08-03 Completed Unive rsity of Dosage 00:00:00 [facility] TDAP 2002-08-03 Completed [facility] of 00:00:00 [facility] Heamophilus Influenza 2002-08-03 Completed Uni versity of B 00:00:00 [facility] DTAP 2002-08-03 Completed [facility] 00:00:00 [place] [facility] HIB 4 Dose Schedule 2002-08-03 Completed Unive rsity of 00:00:00 [facility] Hep B, Adol or Pedi 2002-08-03 Completed Unive rsity of Dosage 00:00:00 [facility] DTAP 2002-03-15 Completed [facility] of 00:00:00 [facility] HIB 4 Dose Schedule 2002-03-15 Completed Unive rsity of 00:00:00 [facility] TDAP 2002-03-15 Completed [facility] of 00:00:00 [facility] Heamophilus Influenza 2002-03-15 Completed Uni versity of B 00:00:00 [facility] IPV 2002-03-15 Completed [facility] of 00:00:00 [facility] DTAP 2002-03-15 Completed [facility] of 00:00:00 [facility] HIB 4 Dose Schedule 2002-03-15 Completed Unive rsity of 00:00:00 [facility] TDAP 2002-03-15 Completed [facility] of 00:00:00 [facility] Heamophilus Influenza 2002-03-15 Completed Uni versity of B 00:00:00 [facility] IPV 2002-03-15 Completed [facility] of 00:00:00 [facility] DTAP 2002-03-15 Completed [facility] of 00:00:00 [facility] HIB 4 Dose Schedule 2002-03-15 Completed Unive rsity of 00:00:00 [facility] TDAP 2002-03-15 Completed [facility] 00:00:00 [facility] Heamophilus Influenza 2002-03-15 Completed Uni versity of B 00:00:00 [facility] IPV 2002-03-15 Completed [facility] of 00:00:00 [facility] DTAP 2002-03-15 Completed [facility] 00:00:00 [facility] HIB 4 Dose Schedule 2002-03-15 Completed Unive rsity of 00:00:00 [facility] TDAP 2002-03-15 Completed [facility] 00:00:00 [facility] Heamophilus Influenza 2002-03-15 Completed Uni versity of B 00:00:00 [facility] IPV 2002-03-15 Completed [facility] 00:00:00 [facility] DTAP 2002-03-15 Completed [facility] 00:00:00 [facility] HIB 4 Dose Schedule 2002-03-15 Completed Unive rsity of 00:00:00 [facility] TDAP 2002-03-15 Completed [facility] 00:00:00 [facility] Heamophilus Influenza 2002-03-15 Completed Uni versity of B 00:00:00 [facility] IPV 2002-03-15 Completed [facility] 00:00:00 [facility] DTAP 2002-03-15 Completed [facility] 00:00:00 [facility] HIB 4 Dose Schedule 2002-03-15 Completed Unive rsity of 00:00:00 [facility] TDAP 2002-03-15 Completed [facility] 00:00:00 [facility] Heamophilus Influenza 2002-03-15 Completed Uni versity of B 00:00:00 [facility] IPV 2002-03-15 Completed [facility] 00:00:00 [facility] DTAP 2002-03-15 Completed [facility] 00:00:00 [facility] HIB 4 Dose Schedule 2002-03-15 Completed Unive rsity of 00:00:00 [facility] DTAP 2001 Completed [facility] of 00:00:00 [facility] HIB 4 Dose Schedule 2001 Completed Unive rsity of 00:00:00 [facility] TDAP 2001 Completed [facility] of 00:00:00 [facility] Heamophilus Influenza 2001 Completed Uni versity of B 00:00:00 [facility] IPV 2001 Completed [facility] 00:00:00 [facility] DTAP 2001 Completed [facility] 00:00:00 [facility] HIB 4 Dose Schedule 2001 Completed Unive rsity of 00:00:00 [facility] TDAP 2001 Completed [facility] 00:00:00 [facility] Heamophilus Influenza 2001 Completed Uni versity of B 00:00:00 [facility] IPV 2001 Completed [facility] of 00:00:00 [facility] DTAP 2001 Completed [facility] 00:00:00 [facility] HIB 4 Dose Schedule 2001 Completed Unive rsity of 00:00:00 [facility] TDAP 2001 Completed [facility] 00:00:00 [facility] Heamophilus Influenza 2001 Completed Uni versity of B 00:00:00 [facility] IPV 2001 Completed [facility] 00:00:00 [facility] DTAP 2001 Completed [facility] 00:00:00 [facility] HIB 4 Dose Schedule 2001 Completed Unive rsity of 00:00:00 [facility] TDAP 2001 Completed [facility] 00:00:00 [facility] Heamophilus Influenza 2001 Completed Uni versity of B 00:00:00 [facility] IPV 2001 Completed [facility] 00:00:00 [facility] DTAP 2001 Completed [facility] 00:00:00 [facility] HIB 4 Dose Schedule 2001 Completed Unive rsity of 00:00:00 [facility] TDAP 2001 Completed [facility] 00:00:00 [facility] Heamophilus Influenza 2001 Completed Uni versity of B 00:00:00 [facility] IPV 2001 Completed [facility] 00:00:00 [facility] DTAP 2001 Completed [facility] 00:00:00 [facility] HIB 4 Dose Schedule 2001 Completed Unive rsity of 00:00:00 [facility] TDAP 2001 Completed [facility] 00:00:00 [facility] Heamophilus Influenza 2001 Completed Uni versity of B 00:00:00 [facility] IPV 2001 Completed [facility] 00:00:00 [facility] DTAP 2001 Completed [facility] 00:00:00 [facility] HIB 4 Dose Schedule 2001 Completed Unive rsity of 00:00:00 [facility] Hep B, Adol or Pedi 2001 Completed Unive rsity of Dosage 00:00:00 [facility] Hep B, Adol or Pedi 2001 Completed Unive rsity of Dosage 00:00:00 [facility] Hep B, Adol or Pedi 2001 Completed Unive rsity of Dosage 00:00:00 [facility] Hep B, Adol or Pedi 2001 Completed Unive rsity of Dosage 00:00:00 [facility] Hep B, Adol or Pedi 2001 Completed Unive rsity of Dosage 00:00:00 [facility] Hep B, Adol or Pedi 2001 Completed Unive rsity of Dosage 00:00:00 [facility] Hep B, Adol or Pedi 2001 Completed Unive rsity of Dosage 00:00:00 [facility] Hep B, Adol or Pedi 2001 Completed Unive rsity of Dosage 00:00:00 [facility] Hep B, Adol or Pedi 2001 Completed Unive rsity of Dosage 00:00:00 [facility] Hep B, Adol or Pedi 2001 Completed Unive rsity of Dosage 00:00:00 [facility] Hep B, Adol or Pedi 2001 Completed Unive rsity of Dosage 00:00:00 [facility] Hep B, Adol or Pedi 2001 Completed Unive rsity of Dosage 00:00:00 [facility] Hep B, Adol or Pedi 2001 Completed Unive rsity of Dosage 00:00:00 [facility] Hep B, Adol or Pedi 2001 Completed Unive rsity of Dosage 00:00:00 [facility] Vital Signs Vital Name Observation Time Observation Value Comments Source Systolic blood 2022-08-26 20:11:00 113 mm[Hg] Univer [facility]ity of pressure [facility] Diastolic blood 2022-08-26 20:11:00 80 mm[Hg] Unive rsity of pressure [facility] Heart rate 2022-08-26 20:11:00 91 /min [facility] Body temperature 2022-08-26 20:11:00 36.72 [place] [facility] 2022-08-26 20:11:00 16 /min [facility] Body height 2022-08-26 20:11:00 157.5 cm [facility] Body weight 2022-08-26 20:11:00 57.879 kg [facility] BMI 2022-08-26 20:11:00 23.34 kg/m2 [facility] Systolic blood 2022-07-03 20:26:00 108 mm[Hg] Univer sity of pressure [facility] Diastolic blood 2022-07-03 20:26:00 76 mm[Hg] Unive rsity of pressure [facility] Heart rate 2022-07-03 20:26:00 103 /min [facility] Body temperature 2022-07-03 20:25:00 36.89 [facility] [facility] Respiratory rate 2022-07-03 20:25:00 16 /min [facility] Body height 2022-07-03 20:25:00 157.5 cm [facility] Body weight 2022-07-03 20:25:00 58.968 kg [facility] BMI 2022-07-03 20:25:00 23.78 kg/m2 [facility] Oxygen saturation in 2022-07-03 20:25:00 98 /min [facility] Arterial blood by [facility] Pulse oximetry Branch Systolic blood 2021-03-14 18:19:00 99 mm[Hg] [facility] [place] [facility] Diastolic blood 2021-03-14 18:19:00 65 mm[Hg] [facility] [place] [facility] [place] Heart rate 2021-03-14 18:19:00 99 /min [facility] [place] [facility] Body temperature 2021-03-14 18:19:00 36.83 Melania [facility] [place] [facility] Respiratory rate 2021-03-14 18:19:00 18 /min [facility] Body height 2021-03-14 18:19:00 157.5 cm [facility] Body weight 2021-03-14 18:19:00 53.524 kg [facility] BMI 2021-03-14 18:19:00 21.58 kg/m2 [facility] Systolic blood 2021-03-14 18:19:00 99 mm[Hg] [facility] Diastolic blood 2021-03-14 18:19:00 65 mm[Hg] [facility] Heart rate 2021-03-14 18:19:00 99 /min [facility] Body temperature 2021-03-14 18:19:00 36.83 Melania [facility] [place] [facility] Respiratory rate 2021-03-14 18:19:00 18 /min [facility] Body height 2021-03-14 18:19:00 157.5 cm [facility] Body weight 2021-03-14 18:19:00 53.524 kg [facility] BMI 2021-03-14 18:19:00 21.58 kg/m2 [facility] Systolic blood 2021-03-14 18:19:00 99 mm[Hg] [email or web address] Diastolic blood 2021-03-14 18:19:00 65 mm[Hg] [facility] 2021-03-14 18:19:00 99 /min [facility] Body temperature 2021-03-14 18:19:00 36.83 Melania [facility] Respiratory rate 2021-03-14 18:19:00 18 /min [facility] Body height 2021-03-14 18:19:00 157.5 cm [facility] Body weight 2021-03-14 18:19:00 53.524 kg [facility] BMI 2021-03-14 18:19:00 21.58 kg/m2 [facility] Height 2020-12-01 10:53:00 154.94 CM Weight 2020-12-01 10:53:00 50.8 KG Procedures Procedure Date / Time Performed Performing Clinician Sourc e POCT URINALYSIS W/O 2021-03-14 00:00:00 Wendy Rivera [facility] SPECIFIC GRAVITY [facility] Plan of Care Planned Activity Planned Date Details Comments Source Future Scheduled 2029-12-08 DTaP,Tdap,and Td Univers [facility] Test 00:00:00 Vaccines (6 - Td) Medical Br anch [code = DTaP,Tdap,and Td Vaccines (6 - Td)] Future Scheduled 2022-01-15 Screening for [facility] Test 00:00:00 Chlamydia trachomatis Medica l Branch (procedure) [code = 306393929] Future Scheduled 2021-07-11 INFLUENZA VACCINE [facility] Test 00:00:00 (Season Ended) [code = Medic al Branch INFLUENZA VACCINE (Season Ended)] Future Scheduled 2017 SARS-CoV-2 (COVID-19) [facility] Vaccine (1) [code = Medical Branch SARS-CoV-2 (COVID-19) Vaccine (1)] Future Scheduled 2013 Depression screening [facility] [place] Test 00:00:00 (procedure) [code = Medical Branch 966860739] Future Scheduled 2013 Well child visit [facility] [place] Test 00:00:00 (procedure) [code = Medical Branch [id number]] Future Scheduled 2011 MENINGOCOCCAL B [facility] [place] Test 00:00:00 VACCINES (1 of 2 - Medical B ranch Risk Bexsero 2-dose series) [code = MENINGOCOCCAL B VACCINES (1 of 2 - Risk Bexsero 2-dose series)] Encounters Start End Encounter Admission Attending Care Care Encounter Source Date/Time Date/Time Type Type Clinicians Facility Department ID 2021-09-11 Emergency [facility] [id number] Univers 07:20:36 ity of [facility] 2021-09-11 Emergency [facility] [id number] Univers 07:18:00 ity of [facility] 2021-09-11 Emergency [facility] [id number] Univers 05:25:53 ity of [facility] 2021-09-10 Emergency [facility] [id number] Univers 12:34:55 ity of [facility] 2021-09-10 Outpatient X [facility] [id number] Univers 00:32:19 ity of [facility] 2021-09-10 Emergency [facility] [id number] Univers 00:25:14 ity of [facility] 2021-09-09 Emergency [facility] [id number] Univers 03:49:13 ity of [facility] 2021-09-07 Emergency [facility] [id number] Univers 12:08:59 ity of [facility] 2021-09-06 Outpatient P NEMB JONI [id number] Univers 14:24:34 ity of [facility] 2021-09-06 Outpatient P [facility] JONI [id number] Univers 14:21:12 ity of [facility] 2021-09-06 Outpatient P NEMB JONI [id number] Univers 13:39:14 ity of [facility] 2021-09-06 Outpatient P NEMB JONI [id number] Univers 13:35:43 ity of [facility] 2022-10-29 2022-10-29 Outpatient R LAWRENCE [facility] [id number] Univers 09:00:00 09:00:00 GUTIERREZ [facility] 2022-10-28 2022-10-28 Telephone Lawrence, [facility] 1.2.840.114 [id number] Univers 00:00:00 00:00:00 Gutierrez Y HEALTH 350.1.13.10 i ty [place] [id number] [facility] [address] [place] 2022-10-23 2022-10-23 Telephone Lawrence, [facility] 1.2.840.114 [id number] Univers 00:00:00 00:00:00 Gutierrez Y HEALTH 350.1.13.10 i ty [place] [id number] [facility] [address] [place] 2022-08-26 2022-08-26 Outpatient R NICOLE [facility] [id number] Univers 14:30:00 15:11:07 [facility] 2022-08-26 2022-08-26 Nurse Nurse, [facility] 1.2.840.114 [id number] Univers 14:30:00 15:11:07 Visit Wendy Rivera 350.1.13.10 [place]y [place] [id number] [address] 2022-07-03 2022-07-03 Campaign Manager [facility] UNIVERSIT 1.2.840.114 [id number] Univers 17:00:00 17:15:00 Visit Gutierrez Bravo 350.1.13.10 ity of CL[place] [id number] [facility] [address] 2022-07-03 2022-07-03 Outpatient R LAWRENCE [facility] [id number] Univers 16:00:00 16:06:31 GUTIERREZ [facility] 2022-07-03 2022-07-03 Office Isha Marie [facility] 1.2.840.114 [id number] Univers 16:00:00 16:06:31 Visit Lawrence Gutierrez Y HEALTH 350.1.13.10 ity [place] [id number] [address] 2022-07-03 2022-07-03 [facility] [id number] Univers 16:00:00 16:06:31 [facility] 2022-07-03 2022-07-03 Out[facility] [id number] Univers 16:00:00 16:06:31 [facility] 2022-06-19 2022-06-19 Telephone [place], UNIVERSIT 1.2.840.114 [id number] Univers 00:00:00 00:00:00 Nephrology Y HEALTH 350.1.13.10 ity [place] [id number] [address] 2022-06-12 2022-06-12 Telephone [place], UNIVERSIT 1.2.840.114 [id number] Univers 00:00:00 00:00:00 Nephrology Y HEALTH 350.1.13.10 ity [place] [id number] [address] 2022-06-03 2022-06-03 Outpatient Stevo RIVERA [facility] [id number] Univers 14:00:00 14:15:27 WENDY durham [facility] 2022-06-03 2022-06-03 Nurse Nurse, [facility] Women's Health [facility] 1.2.840.114 [id number] Univers 14:00:00 14:15:27 Visit Wendy Rivera 350.1.13.10 [place] [id number] [address] 2022-04-04 2022-04-04 Outpatient Stevo RIVERA [facility] [id number] Univers 15:00:00 15:00:00 [facility] 2022-04-03 2022-04-03 Outpatient R RADHADAMIEN [facility] [id number] Univers 13:10:05 23:59:00 WENDY ity [facility] 2022-04-03 2022-04-03 [facility] 1.2.840.114 [id number] Univers 13:00:00 23:59:00 Encounter Wendy GRADY 350.1.13.10 [place] [id number] [facility] [address] [place] 2022-04-03 2022-04-03 Orders Doctor JUSTIN 1.2.840.114 [id number] Univers 00:00:00 00:00:00 Only Unassigned, [place] 350.1.13.10 ity of [place] [facility] 4.2.7.2.686 Tk as [id number] [facility] [address] [place] 2022-04-03 2022-04-03 Case [facility] 1.2.231.902 [id number] Univers 00:00:00 00:00:00 Management Wendy GRADY 350.1.13.10 [place] [facility] [id number] Nm dical [address] 2022-03-27 2022-03-27 Outpatient R ZARINA KENNEDY [facility] [id number] Univers 09:30:00 09:30:00 ity of [facility] 2022-03-27 2022-03-27 Outpatient R ZARINA KENNEDY [facility] [id number] Univers 09:30:00 09:30:00 ity of [facility] 2022-03-27 2022-03-27 Outpatient R ZARINA KENNEDY [facility] [id number] Univers 09:30:00 09:30:00 ity [facility] 2022-03-07 2022-03-07 Outpatient R ZARINA KENNEDY [facility] [id number] Univers 14:00:00 14:18:10 ity [facility] 2022-03-07 2022-03-07 Nurse Nurse, [facility] 1.2.840.114 [id number] Univers 14:00:00 14:18:10 Visit Zarina Kennedy 350.1.13.10 [place] [id number] [address] 2022-02-28 2022-02-28 Telephone Nicole NETEE 1.2.840.114 [id number] Univers 00:00:00 00:00:00 Wendy GRADY 350.1.13.10 i [place] [id number] [address] 2022-02-26 2022-02-26 Outpatient R LINDA [facility] [id number] Univers 15:00:00 16:12:25 NORMA durham [facility] 2022-02-26 2022-02-26 Office Wendy Rivera [facility] 1.2.840.11 [id number] Univers 15:00:00 16:12:25 Visit Norma Partida 350.1.13.10 ity [facility] [place] [id number] [address] 2021-12-13 2021-12-13 Outpatient R ZARINA KENNEDY [facility] [id number] Univers 10:30:00 10:42:25 ity of [facility] 2021-12-13 2021-12-13 Nurse Nurse, [facility] 1.2.840.114 [id number] Univers 10:30:00 10:42:25 Visit Zarina Kennedy 350.1.13.10 [place] [id number] [address] 2021-12-13 2021-12-13 Outpatient R [facility] [id number] Univers 10:30:00 10:30:00 ity of [facility] 2021-12-13 2021-12-13 Orders Doctor ANDERSON 1.2.840.114 [id number] Univers 00:00:00 00:00:00 Only Unassigned, [place] 350.1.13.10 [facility] 4.2.7.2.686 Tk as [id number] [facility] [address] [place] 2021-12-07 2021-12-07 Outpatient R KARSONSTAN Silverio [facility] [id number] Univers 13:00:00 13:00:00 STAN TY ity [facility] 2021-11-28 2021-11-28 Emergency X Pedro ALVARADO [facility] ERT [id number] Univers 12:55:00 16:24:00 ity [facility] 2021-11-28 2021-11-28 Emergency Pedro Alvarado [facility] 1.2.840.114 [id number] Univers 12:55:00 16:24:00 Cinthia GRADY 350.1.13.10 i [place] [id number] [facility] [address] [place] 2021-11-28 2021-11-28 Orders Doctor JUSTIN 1.2.840.114 [id number] Univers 00:00:00 00:00:00 Only Unassigned, [place] 350.1.13.10 ity [facility] 4.2.7.2.686 Tk as [phone] [address] 2021-10-22 2021-10-22 Outpatient Stevo RIVERA [facility] [id number] Univers 09:00:00 09:29:56 WENDY durham [facility] 2021-10-22 2021-10-22 Office Nicole NETEE 1.2.451.671 [id number] Univers 08:40:07 09:29:56 Visit Wendy GRADY 350.1.13.10 i ty of [facility] 4.2.7.2.[place] [facility] [phone] Nm dical [facility] [address] BUILDING 2021-09-27 2021-09-27 Outpatient Stevo RIVERA [facility] [id number] Univers 10:30:00 10:53:39 WENDY durham [facility] 2021-09-27 2021-09-27 Routine Zarina Kennedy [facility] 1.2.840.114 [id number] Univers 10:24:13 10:53:39 Wendy RiveraTON 350.1.13.10 ity of [place] [id number] Nm dical NAL [address] [facility] 2021-09-12 2021-09-12 Telephone Oswaldann mariedamien [facility] 1.2.840.114 [id number] Univers 00:00:00 00:00:00 Wendy MIGUEL A 350.1.13.10 i ty of [facility] 4.2.7.2.[place] [id number] Nm dical NAL [address] [facility] 2021-09-10 2021-09-11 Inpatient P ZARINA KENNEDY [facility] ERT [id number] Univers 04:05:00 16:00:00 ity of [facility] 2021-09-10 2021-09-11 Hospital Zarina Kennedy [facility] 1.2.840.114 [id number] Univers 04:05:00 16:00:00 Encounter Marcus GRADY 350.1.13.10 ity of [facility] 4.2.7.2.[place] [id number] [facility] jose [address] [place] 2021-09-10 2021-09-10 Anesthesia Jordan Gaspar [facility] 1.2.840.11 [id number] Univers 08:35:00 16:19:00 Event Brando Lee MIGUEL A 350.1.13.10 ity of [facility] 4.2.7.2.[place] [id number] [facility] jose [address] [place] 2021-09-07 2021-09-07 Laboratory Only, Adc Test [facility] 1.2.840. 114 [id number] Univers 10:06:22 10:21:22 Only Zarina Kennedy 350.1.13.10 ity of [facility] 4.2.7.2.[place] [id number] [facility] [address] 2021-09-07 2021-09-07 Outpatient R ZARINA KENNEDY [facility] [id number] Univers 10:15:00 10:15:00 ity of [facility] 2021-09-06 2021-09-06 Routine Zarina Kennedy [facility] 1.2.090.055 [id number] Univers 11:00:13 11:58:29 Marcus GRADY 350.1.13.10 ity of [place] [id number] [address] 2021-09-06 2021-09-06 Outpatient R ZARINA KENNEDY [facility] [id number] Univers 11:00:00 11:58:29 ity of [facility] 2021-09-04 2021-09-04 [facility] 1.2.840.114 [id number] Univers 13:23:00 15:35:00 Encounter MingoNorma garcia Alon Grady 350.1.13.10 [place] of [place] [id number] [place] [id number] [place] 2021-09-04 2021-09-04 Outpatient P BRENT [facility] ERT [id number] Univers 13:23:00 15:35:00 ity of [facility] 2021-09-04 2021-09-04 [facility] [id number] Univers 11:00:00 12:14:54 [facility] 2021-09-04 2021-09-04 [facility] 1.2.840.114 [id number] Univers 10:42:04 12:14:54 Wendy Mora 350.1.13.10 i ty of Visit Women's [place] [id number] [address] 2021-09-04 2021-09-04 Telephone Brent [facility] 1.2.840.114 [id number] Univers 00:00:00 00:00:00 Marcus Grady 350.1.13.10 i ty of [place] [id number] [address] 2021-09-03 2021-09-03 [facility] [id number] Univers 16:15:00 16:15:00 WENDY durham [facility] 2021-08-27 2021-08-27 Outpatient R NICOLE NETEE [facility] [id number] Univers 16:30:00 16:30:00 WENDY ity of [facility] 2021-08-27 2021-08-27 Routine Zarina Kennedy [facility] 1.2.840.114 [id number] Univers 15:51:06 16:29:15 Wendy Rivera 350.1.13.10 [place]y of [place] Profess[place] [phone] Nm dical nal [address] [place] [address] 2021-08-25 2021-08-25 Hospital Kary Oseguera [facility] 1.2.840.114 [id number] Univers 22:15:00 23:30:00 Encounter Miguel A 350.1.13.10 [place] of [place] [id number] [address] 2021-08-25 2021-08-25 Emergency Kary Oseguera [facility] 1.2.840.114 [id number] Univers 09:36:00 18:31:00 Miguel A 350.1.13.10 i ty of [place] [id number] [address] 2021-08-24 2021-08-24 Telephone Zarina Kennedy [facility] 1.2.840.114 [id number] Univers 00:00:00 00:00:00 Marcus Grady 350.1.13.10 i ty of [place] [id number] Nm dical nal [address] [place] [address] 2021-08-24 2021-08-24 Telephone Nicole [facility] 1.2.840.114 [id number] Univers 00:00:00 00:00:00 Wendy Grady 350.1.13.10 i ty of [place] [id number] Nm dical nal [address] [place] [address] 2021-08-20 2021-08-20 Routine Zarina Kennedy [facility] 1.2.755.793 [id number] Univers 08:20:54 09:06:30 Cam [place] 350.1.13.10 ity of Visit [place] [phone] Nm dical nal [address] [place] [address] 2021-08-20 2021-08-20 Outpatient R ZARINA KENNEDY [facility] [id number] Univers 08:00:00 08:00:00 ity of [facility] 2021-08-20 2021-08-20 Telephone Brent [facility] 1.2.840.114 [id number] Univers 00:00:00 00:00:00 Cam [place] 350.1.13.10 i ty of [place] [phone] Nm dical [address] 2021-08-20 2021-08-20 Orders Doctor JUSTIN 1.2.840.114 [id number] Univers 00:00:00 00:00:00 Only Unassigned, [place] 350.1.13.10 ity of [place] [facility] 4.2.7.2.686 Tk as [phone] [facility] [address] [place] 2021-08-17 2021-08-17 [facility] Zarina Kennedy [facility] 1.2.840.114 [id number] Univers 19:05:00 21:15:00 Encounter Cam [place] 350.1.13.10 ity of [place] [id number] [facility] [address] [place] 2021-08-17 2021-08-17 Orders Doctor JUSTIN 1.2.840.114 [id number] Univers 00:00:00 00:00:00 Only Unassigned, [place] 350.1.13.10 ity of [place] [facility] 4.2.7.2.686 Tk as [phone] [address] 2021-08-13 2021-08-13 Outpatient R NICOLE [facility] [id number] Univers 16:00:00 16:00:00 WENDY ity of [facility] 2021-08-13 2021-08-13 Campaign Manager 2, Adc Lab [facility] 1.2.840.114 [id number] Univers 13:32:20 13:47:20 Visit eWndy [place] 350.1.13.10 ity of [place] [phone] Nm dical nal [address] [facility] 2021-08-13 2021-08-13 Routine Nicole [facility] 1.2.417.703 [id number] Univers 12:46:01 13:29:24 Wendy Jameston 350.1.13.10 ity of Visit [place].7.[place] [phone] Nm dical nal 134 [facility] 2021-08-11 2021-08-11 Nurse Lashay Merritt 1.2.840.114 [id number] Univers 00:00:00 00:00:00 Triage [place] 350.1.13.10 it y of HOSPITAL 4.2.7.2.686 Tk as [id number] [facility] [address] [place] 2021-08-03 2021-08-03 Hospital Zarina Kennedy [facility] 1.2.840.114 [id number] Univers 10:23:00 13:15:00 Encounter AdNorma garcia 350.1.13.10 ity of [place] [id number] [facility] [address] [place] 2021-08-03 2021-08-03 Telephone Zarina Kennedy [facility] 1.2.840.114 [id number] Univers 00:00:00 00:00:00 Marcus Grady 350.1.13.10 i ty of [place].7.[place] [phone] Nm dical nal 134 [facility] 2021-08-03 2021-08-03 Orders Doctor JUSTIN 1.2.840.114 [id number] Univers 00:00:00 00:00:00 Only Unassigned, [place] 350.1.13.10 ity of [place] [facility] 4.2.7.2.686 Tk as [phone] [facility] [address] [place] 2021-08-01 2021-08-01 Routine Zarina Kennedy [facility] 1.2.840.114 [id number] Univers 15:55:38 16:48:02 Wendy Rivera 350.1.13.10 ity of [place] [phone] [address] 2021-08-01 2021-08-01 Outpatient R NICOLE [facility] [id number] Univers 16:15:00 16:15:00 WENDY itbandar [facility] 2021-07-20 2021-07-20 Campaign Manager Ultrasound, [facility] 1.2 .840.114 [id number] Univers 13:13:35 13:57:45 Visit Sailaja PalSherry Miguel A 350.1 .13.10 ity of [place] [phone] [address] 2021-07-20 2021-07-20 Outpatient P [facility] [id number] Univers 13:30:00 13:30:00 ity [facility] 2021-07-18 2021-07-18 [facility] [id number] Univers 09:45:00 09:45:00 WENDY [facility] 2021-07-18 2021-07-18 Outpatient R [facility] [id number] Univers 08:15:00 08:15:00 ity [facility] 2021-07-17 2021-07-17 Routine Brent Zarina [facility] 1.2.717.340 [id number] Univers 15:44:11 16:52:37 Cam [place] 350.1.13.10 ity of Visit [place] [id number] [address] 2021-07-17 2021-07-17 Routine Brent Zarina [facility] 1.2.720.881 [id number] Univers 15:44:11 16:52:37 Cam [place] 350.1.13.10 ity of Visit [place] 4[place]2.[place] [phone] Nm dic[address] 2021-07-17 2021-07-17 Outpatient R ZARINA KENNEDY [facility] [id number] Univers 16:15:00 16:15:00 ity of [facility] 2021-07-17 2021-07-17 Orders Doctor JUSTIN 1.2.840.114 [id number] Univers 00:00:00 00:00:00 Only Unassigned, [place] 350.1.13.10 ity of [place] [facility] 4.2.7.2.686 Tk as [phone] [address] 2021-07-17 2021-07-17 Orders Doctor JUSTIN 1.2.840.114 [id number] Univers 00:00:00 00:00:00 Only Unassigned, [place] 350.1.13.10 ity of [place] [facility] 4.2.7.2.686 Tk as [id number] [address] 2021-07-09 2021-07-09 Outpatient R ZARINA KENNEDY [facility] [id number] Univers 11:15:00 11:15:00 ity of [facility] 2021-07-03 2021-07-03 Telephone [facility] 1.2.840.114 [id number] Univers 00:00:00 00:00:00 Marcus Grady [id number] [place] [phone] [address] 2021-07-03 2021-07-03 Telephone Zarina Kennedy [facility] 1.2.840.114 [id number] Univers 00:00:00 00:00:00 [place] [id number] [place] [phone] [address] 2021-06-28 2021-06-28 Campaign Manager 2, [facility] 1.2.840.114 [id number] Univers 10:40:29 10:55:29 Visit Zarina Kennedy [id number] [place] [phone] Nm dical nal [address] [facility] 2021-06-28 2021-06-28 Campaign Manager 2, Adc Lab [facility] 1.2.840.114 [id number] Univers 10:40:29 10:55:29 Visit Brent Zarinamarlon Velazquez [place] [id number] [place] [phone] Nm dical formerly [facility] [address] [facility] 2021-06-28 2021-06-28 [facility] [facility] [id number] Univers 10:00:00 10:00:00 ity of [facility] 2021-06-28 2021-06-28 Telephone Brent Zarina [facility] 1.2.840.114 [id number] Univers 00:00:00 00:00:00 [place] 350.1.13.10 [place] [phone] Nm dicsaint alphonsus eagle [facility] 2021-06-25 2021-06-25 Routine Zarina Kennedy [facility] 1.2.711.396 [id number] Univers 10:31:20 11:38:32 Marcus [place] 350.1.13.10 it[place] of [place] [phone] Nm dicut nal [address] [place] [address] 2021-06-25 2021-06-25 Outpatient R ZARINA KENNEDY [facility] [id number] Univers 11:00:00 11:00:00 ity of [facility] 2021-06-11 2021-06-11 Emergency Zarina Kennedy NETEE 1.2.840.114 [id number] Univers 17:01:00 19:52:00 [place] 350.1.13.10 [place] [phone] [address] 2021-06-11 2021-06-11 Telephone KennedyBennetten [facility] 1.2.840.114 [id number] Univers 00:00:00 00:00:00 [place] 350.1.13.10 [place] [phone] Nm dical nal 134 [facility] 2021-06-07 2021-06-07 Telephone Zarina Kennedy [facility] 1.2.840.114 [id number] Univers 00:00:00 00:00:00 [place] 350.1.13.10 [place] [phone] Nm dical nal 134 [facility] 2021-05-29 2021-05-29 Nurse Nurse, [facility] 1.2.840.114 [id number] Univers 15:17:17 15:49:09 Visit Zarina Kennedy Marcus Grady 350.1.13.10 ity of [place] [phone] Nm dical nal 134 [facility] 2021-05-29 2021-05-29 Campaign Manager 2, [facility] Lab [facility] 1.2.840.114 [id number] Univers 15:07:51 15:22:51 Visit Bennett Kennedymarlon Grady 350.1.13.10 ity of [place] [phone] Nm dical nal 353 [facility] 2021-05-29 2021-05-29 Outpatient R [facility] [id number] Univers 15:00:00 15:00:00 ity of [facility] 2021-05-29 2021-05-29 Telephone Bennett Kennedyen [facility] 1.2.840.114 [id number] Univers 00:00:00 00:00:00 [place] 350.1.13.10 [place] [phone] Nm dical nal 134 [facility] 2021-05-28 2021-05-28 Routine Zarina Kennedy [facility] 1.2.066.472 [id number] Univers 13:26:09 14:18:04 [place] 350.1.13.10 ity of [place] [phone] [address] 2021-05-28 2021-05-28 Outpatient R KENNEDY ZARINA [facility] [id number] Univers 13:30:00 13:30:00 ity [facility] 2021-05-09 2021-05-09 Outpatient R NICOLE [facility] [id number] Univers 11:15:00 11:15:00 WENDY ity [facility] 2021-05-09 2021-05-09 [facility] 1.2.422.112 [id number] Univers 10:58:18 11:13:18 Wendy Grady 350.1.13.10 ity [place] [phone] [address] 2021-05-07 2021-05-07 Telephone Zarina Kennedy [facility] 1.2.840.114 [id number] Univers 00:00:00 00:00:00 [place] 350.1.13.10 [place] [phone] [address] 2021-04-27 2021-04-27 Campaign Manager Ultrasound, [facility] 1.2 .840.114 [id number] Univers 12:57:28 13:57:28 Visit Kian Gutierrez 350.1.13.10 it[place] of [place] [phone] [address] 2021-04-27 2021-04-27 Outpatient R [facility] [id number] Univers 13:00:00 13:00:00 ity [facility] 2021-04-24 2021-04-24 Telephone KennedyBennetten [facility] 1.2.840.114 [id number] Univers 00:00:00 00:00:00 [place] 350.1.13.10 [place] [phone] [address] 2021-04-21 2021-04-21 Telemedici Mihai Fernandez [facility] 1.2. 840.114 [id number] Univers 16:26:26 16:59:11 ne Visit Unknown, Attending HEALTH 350.1.13.1 0 it[place] of [place]2.[place].2.[place] [facility] [phone] [facility] 2021-04-21 2021-04-21 Outpatient R RAVI, [facility] [id number] Univers 16:30:00 16:30:00 ATTENDING ity of [facility] 2021-04-19 2021-04-19 Emergency Brent [facility] 1.2.840.114 [id number] Univers 11:49:00 16:10:00 [place] 350.1.13.10 [place] [phone] [facility] [address] 2021-04-19 2021-04-19 Telephone Zarina Kennedy [facility] 1.2.840.114 [id number] Univers 00:00:00 00:00:00 [place] 350.1.13.10 [place] [phone] Nm dical nal 134 [facility] 2021-04-11 2021-04-11 Campaign Manager 2, [facility] Lab [facility] 1.2.840.114 [id number] Univers 13:32:48 13:47:48 Visit Zarina Kennedy 350.1.13.10 [place] of [place] [phone] Nm dical nal 353 [facility] 2021-04-11 2021-04-11 Routine Brent [facility] 1.2.692.864 [id number] Univers 13:05:36 13:28:34 Marcus [place] 350.1.13.10 ity of [place] [phone] Nm dical nal 134 [facility] 2021-04-11 2021-04-11 Outpatient R ZARINA KENNEDY [facility] [id number] Univers 13:00:00 13:00:00 ity of [facility] 2021-03-14 2021-03-14 [facility] 1.2.852.551 [id number] 12:43:31 13:35:28 Wendy Miguel A 350.1.13.10 Visit [place] 4.2.7.2.686 Professio [phone] [address] 2021-03-14 2021-03-14 [facility] 1.2.466.781 [id number] Univers 12:43:31 13:35:28 Wendy [place] 350.1.13.10 ity of [place] [phone] [address] 2021-03-14 2021-03-14 [facility] [id number] Univers 13:00:00 13:00:00 WENDY ity [facility] 2021-02-28 2021-02-28 Telephone Zarina Kennedy [facility] 1.2.840.114 [id number] Univers 00:00:00 00:00:00 Cam Miguel A 350.1.13.10 [place] [phone] [address] 2021-02-21 2021-02-21 Outpatient R [facility] [id number] Univers 13:15:00 13:15:00 ity of [facility] 2021-02-21 2021-02-21 Orders Doctor JUSTIN 1.2.840.114 [id number] Univers 00:00:00 00:00:00 Only Unassigned, [place] 350.1.13.10 ity of [place] [facility] 4.2.7.2.686 Tk as [phone] [address] 2021-02-14 2021-02-14 Routine Zarina Kennedy [facility] 1.2.781.437 [id number] Univers 15:01:28 15:58:16 [place] 350.1.13.10 ity of [place] [phone] Nm dical nal 134 [facility] 2021-02-14 2021-02-14 Outpatient R BRENT ZARINA [facility] [id number] Univers 15:45:00 15:45:00 ity of [facility] 2021-01-23 2021-01-23 Orders Doctor JUSTIN 1.2.840.114 [id number] Univers 00:00:00 00:00:00 Only Unassigned, [place] 350.1.13.10 ity of [facility] 4.2.7.2.686 Tk as [phone] [address] 2021-01-19 2021-01-19 Telephone Brent Zarina [facility] 1.2.840.114 [id number] Univers 00:00:00 00:00:00 Marcus Grady 350.1.13.10 i ty [place].2.[place] [phone] Nm dic[address] 2021-01-18 2021-01-18 Campaign Manager 2, [facility] Lab [facility] 1.2.840.114 [id number] Univers 14:10:26 14:25:26 Visit KennedyBennettmarlon Grady 350.1.13.10 ity of [place] [phone] [facility] 353 [facility] 2021-01-18 2021-01-18 Outpatient R [facility] [id number] Univers 14:15:00 14:15:00 ity [facility] 2021-01-18 2021-01-18 Case Nicole [facility] 1.2.568.845 [id number] Univers 00:00:00 00:00:00 Management Wendy Grady 350.1.13.10 [place] [phone] [address] 2021-01-17 2021-01-17 Outpatient R [facility] [id number] Univers 09:00:00 09:00:00 ity of [facility] 2021-01-16 2021-01-16 Outpatient R ZARINA KENNEDY [facility] [id number] Univers 08:45:00 08:45:00 ity of [facility] 2021-01-16 2021-01-16 Telephone Zarina Kennedy [facility] 1.2.840.114 [id number] Univers 00:00:00 00:00:00 [place] 350.1.13.10 [place] [phone] Nm dical nal 134 [facility] 2021-01-15 2021-01-15 Campaign Manager 2, Adc Lab [facility] 1.2.840.114 [id number] Univers 11:32:17 11:47:17 Visit Zarina Kennedy Marcus Grady 350.1.13.10 it[place] of [place] [phone] Nm dical nal 353 [facility] 2021-01-15 2021-01-15 Initial Zarina Kennedy [facility] 1.2.872.801 [id number] Univers 10:17:01 11:18:23 Marcus Grady 350.1.13.10 ity of [place].2.[place] [phone] Nm dical nal 134 [facility] 2021-01-15 2021-01-15 Outpatient R BENNETT KENNEDYEN [facility] [id number] Univers 10:00:00 10:00:00 ity of [facility] 2021-01-15 2021-01-15 Telephone Zarina Kennedy [facility] 1.2.840.114 [id number] Univers 00:00:00 00:00:00 Marcus [place] 350.1.13.10 [place] ty [place] [phone] Nm dical nal 134 [facility] 2021-01-15 2021-01-15 Orders Doctor JUSTIN 1.2.840.114 [id number] Univers 00:00:00 00:00:00 Only Unassigned, [place] 350.1.13.10 ity of [place] [facility] 4.2.7.2.686 Tk as [phone] [facility] [address] [place] 2021-01-13 2021-01-13 Emergency Lopez, [facility] 1.2.513.695 [id number] Univers 18:29:00 22:52:00 Kary Grady 350.1.13.10 i ty of [place] 4.2.7.2.686 [facility] [phone] [address] 2020-12-01 2020-12-01 Emergency E GERMAN CARMEN [facility] [id number] [facility] 10:52:00 12:00:00 Medica [facility] 2020-07-11 2020-07-11 Office Adum, [facility] 1.2.840.114 [id number] Univers 10:39:46 11:22:54 Visit Norma Grady 350.1.13.10 ity [facility] 4.2.7.2.686 [facility] [phone] Nm dical [address] 2020-07-11 2020-07-11 Outpatient [facility] [id number] Univers 11:00:00 11:00:00 NORMA durham [facility] 2020-07-11 2020-07-11 Orders Doctor JUSTIN 1.2.840.114 [id number] Univers 00:00:00 00:00:00 Only Unassigned, [place] 350.1.13.10 ity of [place] [facility] 4.2.7.2.686 [facility] [phone] [address] 2020-07-05 2020-07-05 Outpatient R [facility] [id number] Univers 16:00:00 16:00:00 NORMA durham [facility] 2020-06-21 2020-06-21 Emergency [facility] 1.2.948.868 [id number] Univers 15:22:00 18:25:00 Viviana Grady 350.1.13.10 ity of [place] 4.2.7.2.686 [facility] [phone] [address] 2020-06-21 2020-06-21 Orders Doctor ANDERSON 1.2.840.114 [id number] Univers 00:00:00 00:00:00 Only UnassignedMINERVA 350.1.13.10 ity of [place] [facility] 4.2.7.2.686 Tk as [phone] [address] 2020-05-01 2020-05-01 Orders Doctor JUSTIN 1.2.840.114 [id number] Univers 00:00:00 00:00:00 Only Unassigned, [place] 350.1.13.10 ity of [place] [facility] 4.2.7.2.686 Tk as [phone] [address] 2020-02-28 2020-02-28 Outpatient R NICOLE [facility] [id number] Univers 11:00:00 11:00:00 WENDY ity [facility] 2020-02-28 2020-02-28 Telemedici [facility] 1.2.840.114 [id number] Univers 08:13:41 08:28:41 ne Visit Wendy Grady 350.1.13.10 it[place] [phone] [address] 2020-02-26 2020-02-26 Outpatient R RAVI, [facility] [id number] Univers 11:00:00 11:00:00 ATTENDING ity [facility] 2020-02-21 2020-02-21 Telephone [facility] 1..840.114 [id number] Univers 00:00:00 00:00:00 Wendy Grady 350.1.13.10 [place] [phone] [address] 2020-02-04 2020-02-04 [facility] 1.2.840.114 [id number] Univers 00:00:00 00:00:00 Wendy Grady 350.1.13.10 [place] [phone] Nm dical [address] 2020-02-02 2020-02-02 RefZarina Porter [facility] 1.2.847.166 [id number] Univers 00:00:00 00:00:00 Marcus Grady 350.1.13.10 i ty [place] [phone] [facility] [address] [place] 2020-01-30 2020-02-01 Hospital Zarina Kennedy [facility] 1.2.840.114 [id number] Univers 23:20:00 13:32:00 Encounter Marcus Jameston 350.1.13.10 ity of [place] [phone] [address] 2020-01-31 2020-01-31 Outpatient R NICOLE [facility] [id number] Univers 11:00:00 11:00:00 WENDY ity of [facility] 2020-01-30 2020-01-30 Orders Doctor JUSTIN 1.2.840.114 [id number] Univers 00:00:00 00:00:00 Only Unassigned, [place] 350.1.13.10 ity of [place] [facility] 4.2.7.2.686 Tk as [phone] [facility] [address] [place] 2020-01-28 2020-01-28 Telephone Zarina Kennedy [facility] 1.2.840.114 [id number] Univers 00:00:00 00:00:00 Cam [place] 350.1.13.10 i ty [place].2.[place] [phone] Nm dical nal 134 [facility] 2020-01-24 2020-01-24 Campaign Manager 2, Adc Lab [facility] 1.2.840.114 [id number] Univers 14:38:36 14:53:36 Visit Zarina Kennedy Marcus [place] 350.1.13.10 ity of [place] [phone] Nm dical nal 353 [facility] 2020-01-24 2020-01-24 Routine [facility] 1.2.115.216 [id number] Univers 13:22:06 14:11:49 [place] 350.1.13.10 ity of [place] 4[place]2.[place].2.[place] [phone] Nm dical nal 134 [facility] 2020-01-24 2020-01-24 [facility] [id number] Univers 13:15:00 13:15:00 ity of [facility] 2020-01-24 2020-01-24 Orders Doctor JUSTIN 1.2.840.114 [id number] Univers 00:00:00 00:00:00 Only Unassigned, [place] 350.1.13.10 ity of [place] [facility] 4.2.7.2.686 Tk as [phone] [address] 2020-01-23 2020-01-23 [facility] 1.2.8 40.114 [id number] Univers 03:41:00 07:15:00 Encounter Zarina Kennedy 350.1.13.10 ity of [place].2.[place] [phone] [address] 2020-01-21 2020-01-22 [facility] 1.2.840.114 [id number] Univers 21:41:00 01:25:00 Encounter Marco A Jam[place] 350.1.13.10 ity of [place].2.[place] [phone] [address] 2020-01-20 2020-01-20 Case Zarina Kennedy [facility] 1.2.132.114 [id number] Univers 00:00:00 00:00:00 Management Marcus Grady 350.1.13.10 ity of [place].2.[place] [phone] Nm dical [address] 2020-01-18 2020-01-18 [facility] Kennedy Zarina [facility] 1.2.840.114 [id number] Univers 12:35:00 15:00:00 Encounter Marcus Grady 350.1.13.10 ity of [place]2.7.2.[place] [phone] [address] 2020-01-18 2020-01-18 Outpatient P ZARINA KENNEDY [facility] JONI [id number] Univers 12:35:00 12:35:00 ity of [facility] 2020-01-10 2020-01-10 Routine Nicole [facility] 1.2.090.101 [id number] Univers 13:56:38 14:42:48 Wendy Miguel A 350.1.13.10 ity of [place].2.[place] [phone] [address] 2020-01-10 2020-01-10 Outpatient R NICOLE [facility] [id number] Univers 14:00:00 14:00:00 WENDY ity [facility] 2020-01-06 2020-01-06 Outpatient R ZARINA KENNEDY [facility] [id number] Univers 11:15:00 11:15:00 ity [facility] 2020-01-06 2020-01-06 Nurse Eda Santos 1.2.840.114 [id number] Univers 00:00:00 00:00:00 Triage [place] 350.1.13.10 it y of [facility] 4.2.7.2.686 Tk as [phone] [address] 2019-12-08 2019-12-08 Routine [facility] 1.2.210.724 [id number] Univers 13:39:40 14:27:14 Wendy Grady 350.1.13.10 ity of [place] 4[place]2.7.2.[place] [phone] [address] 2019-11-01 2019-11-01 Office Martha Cohn [facility] 1.2.8 40.114 [id number] Univers 12:45:26 13:14:04 Visit Jonny Sarah SEAT SCOOPER MACHINE 350.1.13.10 ity of [facility] 4.2.7.2.686 Tk as MATERNAL [phone] Med ical & CHILD [address] [place] [address] 2019-07-29 2019-07-29 Telephone Zarina Kennedy [facility] 1.2.840.114 [id number] Univers 00:00:00 00:00:00 Marcus Grady 350.1.13.10 i ty of [place].7.2.[place] [phone] [address] 2019-07-28 2019-07-28 Case Zarina Kennedy [facility] 1.2.947.935 [id number] Univers 00:00:00 00:00:00 Management Marcus Grady 350.1.13.10 ity of [place].7.2.[place] [phone] [address] 2019-07-27 2019-07-27 Nurse Nurse, [facility] 1.2.840.114 [id number] [facility] 15:56:23 16:11:23 Visit Zarina Kennedy 350.1.13.10 ity of [place].2.[place] [phone] Nm dical nal [address] [place] [address] 2019-07-23 2019-07-23 Telephone Zarina Kennedy [facility] 1.2.840.114 [id number] [facility] 00:00:00 00:00:00 Marcus Grady 350.1.13.10 i ty [place].7.2.[place] [phone] [address] 2019-07-21 2019-07-21 Campaign Manager 1, [facility] Lab [facility] 1.2.840.114 [id number] [facility] 13:20:15 13:35:15 Visit Zarina Kennedy 350.1.13.10 ity of [place].2.[place] [phone] [address] 2019-07-20 2019-07-20 Routine Zarina Kennedy [facility] 1.2.694.603 [id number] [facility] 16:27:05 17:06:12 Marcus Grady 350.1.13.10 ity of [place] 4.2.7.2.[place] [phone] Nm dical nal [address] [place] [address] 2019-07-15 2019-07-15 Telephone Zarina Kennedy [facility] 1.2.840.114 [id number] Univers 00:00:00 00:00:00 Marcus Grady 350.1.13.10 i ty of [place] 4[place]2.7.2.[place] [phone] Nm dicut nal [address] [place] [address] 2019-07-14 2019-07-14 Telephone Zarina Kennedy NE 1.2.840.114 [id number] Univers 00:00:00 00:00:00 Cam Miguel A 350.1.13.10 i ty of [place] 4.2.7.2.[place] [phone] Nm dical nal 134 [facility] 2019-07-07 2019-07-07 Initial Zarina Kennedy [facility] 1.2.952.577 [id number] Univers 14:11:07 16:17:14 Marcus Grady 350.1.13.10 ity of [place] 4[place].7.2.[place] [phone] Nm dical nal 134 [facility] 2019-07-07 2019-07-07 Orders Doctor JUSTIN 1.2.840.114 [id number] Univers 00:00:00 00:00:00 Only Unassigned, [place] 350.1.13.10 ity of [place] [facility] 4.2.7.2.686 Tk as [phone] [address] Results Test Description Test Time Test Comments [...] code = 3257) N/A Negative - Negative [facility]
--- NOTE | 2022-11-08 08:37 | RAD REPORT ---
EXAM DESCRIPTION: CT - Head Brain Wo Cont - 11/08/2022 8:26 am CLINICAL HISTORY: dizziness, hx of iph COMPARISON: Head Brain Wo Cont dated 04/25/2020 TECHNIQUE: Axial 5 mm thick images of the head were obtained without IV contrast. All CT scans are performed using dose optimization technique as appropriate and may include automated exposure control or mA/KV adjustment according to patient size. FINDINGS: No intracranial hemorrhage, mass, edema or shift of mid-line structures. No acute infarcti on changes seen. No abnormal extra-axial fluid collections. Ventricles are normal. Mastoid air cells and visualized portions of the paranasal sinuses are clear. No acute bony findings. No identifiable changes from prior imaging. IMPRESSION: Negative non-contrast CT head examination.
[2022-11-08 08:56] LABS: Hematocrit 39.4 % (36.0-45.0); Lymphocytes % 31.7 % (15.3-44.8); MPV 7.7 fL (7.6-11.3); RBC Red Blood Cell Count 4.68 M/uL (3.86-4.86)
[2022-11-08 08:56] LABS: Urine Blood Negative (Negative); Urine Glucose Negative (Negative); Urine Protein Negative (Negative); Urine Specific Gravity >=1.030 (1.005-1.030); Urine pH 5.5 (5.0-7.0)
[2022-11-08 09:15] LABS: Potassium 3.6 mmol/L (3.5-5.1); Troponin High Sensitivity 6.6 pg/mL (<58.9)
--- NOTE | 2022-11-08 09:23 | RAD REPORT ---
EXAM DESCRIPTION: RAD - Chest Single View - 11/08/2022 8:31 am CLINICAL HISTORY: CHEST PAIN COMPARISON: Portable 02/19/2020 TECHNIQUE: AP portable chest image was obtained 11/08/2022 8:31 am . FINDINGS: Lungs are clear. Heart and vasculature are normal. No measurable pleural effusion and no p neumothorax. No acute bony abnormality seen. No acute aortic findings suspected. IMPRESSION: No acute cardiopulmonary process. No significant change from comparison study.
[2022-11-08] MEDS ORDERED: MECLIZINE HCL 12.5 MG TAB ONE (09:30)
[2022-11-08] MEDS ORDERED: NA CHLORIDE 0.9% 1,000 ML ONE (09:30)
--- NOTE | 2022-11-08 10:34 | EDPHYS ---
Physician Documentation [facility] Name: Devi Calvert Age: 22 yrs Sex: Female : 2000 Arrival Date: 11/08/2022 Time: 07:34 Bed 9 Private MD: ED Physician Bradford Green HPI: 11/08 10:32 This 22 yrs old Female presents to ER via EMS with complaints of Chest Pain. kb 10:32 The patient or guardian reports chest pain that is located primarily in the anterior kb chest wall, left. The pain does not radiate. Associated signs and symptoms: Pertinent positives: dizziness. The chest pain is described as aching. Duration: The patient or guardian reports a single episode, that is still ongoing. Modifying factors: The symptoms are alleviated by nothing. the symptoms are aggravated by nothing. Severity of pain: At its worst the pain was mild in the emergency department the pain is unchanged. The patient has not experienced similar symptoms in the past. The patient has not recently seen a physician. Pt reports chest pain that started last night and dizziness that started when she woke up this morning. States she couldn't drive due to dizziness. . Historical: - Allergies: 08:15 No Known Allergies; iw - PMHx: 08:15 Anxiety; Asthma; Depression; IPH; Migraines; previous suicide attempt; Schizophrenia; iw vocal chords problem; ROS: 10:32 Constitutional: Negative for fever, chills, and weight loss. kb 10:32 Cardiovascular: Positive for chest pain. 10:32 Neuro: Positive for dizziness. 10:32 All other systems are negative. Exam: 08:25 Constitutional: This is a well developed, well nourished patient who is awake, alert, kb and in no acute distress. Head/Face: Normocephalic, atraumatic. Eyes: Pupils equal round and reactive to light, extra-ocular motions intact. Lids and lashes normal. Conjunctiva and sclera are non-icteric and not injected. Cornea within normal limits. Periorbital areas with no swelling, redness, or edema. ENT: Moist Mucous membranes Cardiovascular: Regular rate and rhythm with a normal S1 and S2. No gallops, murmurs, or rubs. No pulse deficits. Respiratory: Respirations even and unlabored. No increased work of breathing. Talking in full sentences Abdomen/GI: Soft, non-tender. No distention Skin: Warm, dry with normal turgor. Normal color. MS/ Extremity: Pulses equal, no cyanosis. Neurovascular intact. Full, normal range of motion. Neuro: Awake and alert, GCS 15, oriented to person, place, time, and situation. Moves all extremities. Normal gait. Psych: Awake, alert, with orientation to person, place and time. Behavior, mood, and affect are within normal limits. 08:25 ENT: External ear(s): are unremarkable, Ear canal(s): are normal, TM's: are normal. 08:25 ECG was reviewed by the Attending Physician. Vital Signs: 08:17 BP 115 / 73; Pulse 84; Resp 16; Temp 98.2; Pulse Ox 98% on R/A; Weight 58.06 kg; Height iw 5 ft. 2 in. (157.48 cm); Pain 7/10; 08:58 BP 98 / 71 Sitting; Pulse 88; Resp 16; Pulse Ox 98% on R/A; mm9 09:00 BP 100 / 77 Standing; Pulse 89; Resp 16; Pulse Ox 98% on R/A; mm9 09:02 BP 100 / 70 Supine; Pulse 77; Resp 16; Pulse Ox 95% on R/A; mm9 08:17 Body Mass Index 23.41 (58.06 kg, 157.48 cm) iw MDM: 08:17 Patient medically screened. kb 10:32 Data reviewed: vital signs, nurses notes. Data interpreted: Pulse oximetry: on room air kb is 95 %. Interpretation: normal. Counseling: I had a detailed discussion with the patient and/or guardian regarding: the historical points, exam findings, and any diagnostic results supporting the discharge/admit diagnosis, lab results, radiology results, the need for outpatient follow up, a family practitioner, to return to the emergency department if symptoms worsen or persist or if there are any questions or concerns that arise at home. 10:34 Response to treatment: the patient's symptoms have markedly improved after treatment. kb 11/08 08:16 Order name: Basic Metabolic Panel; Complete Time: 09:20 kb 11/08 08:16 Order name: CBC with Diff; Complete Time: 09:02 kb 11/08 08:16 Order name: CT Head Brain wo Cont; Complete Time: 08:40 kb 11/08 08:16 Order name: Troponin HS; Complete Time: 09:20 kb 11/08 08:56 Order name: Urine Dipstick-Ancillary; Complete Time: 08:58 EDMS 11/08 08:16 Order name: XRAY Chest (1 view); Complete Time: 09:25 kb 11/08 08:16 Order name: EKG; Complete Time: 08:17 kb 11/08 08:16 Order name: Cardiac monitoring; Complete Time: 08:38 kb 11/08 08:16 Order name: EKG - Nurse/Tech; Complete Time: 08:37 kb 11/08 08:16 Order name: IV Saline Lock; Complete Time: 08:38 kb 11/08 08:16 Order name: Labs collected and sent; Complete Time: 08:38 kb 11/08 08:16 Order name: O2 Per Protocol; Complete Time: 08:38 kb 11/08 08:16 Order name: O2 Sat Monitoring; Complete Time: 08:38 kb 11/08 08:16 Order name: Orthostatics; Complete Time: 09:02 kb 11/08 08:17 Order name: Urine Dipstick-Ancillary (obtain specimen); Complete Time: 08:56 kb 11/08 08:17 Order name: Urine Test (obtain specimen); Complete Time: 08:56 kb EC:25 Rate is 81 beats/min. Rhythm is regular. QRS [place] is Normal. ME interval is normal at kb 130 msec. QRS interval is normal at 74 msec. QT interval is normal at 420 msec. Administered Medications: 09:32 Drug: Meclizine 25 mg Route: PO; iw 10:00 Follow up: Response: No adverse reaction iw 09:32 Drug: NS 0.9% 1000 ml Route: IV; Rate: 1000 ml; Site: right antecubital; iw 10:35 Follow up: IV Status: Completed infusion iw Disposition: 15:18 Co-signature as Attending Physician, Bradford Green MD. rn Disposition Summary: 11/08/22 10:34 Discharge Ordered Location: Home kb Condition: Stable kb Diagnosis - Chest pain, unspecified kb - Dizziness and giddiness kb Followup: kb - With: Emergency Department - When: As needed - Reason: Worsening of condition Followup: kb - With: Private Physician - When: 2 - 3 days - Reason: Recheck today's complaints, Continuance of care, Re-evaluation by your physician Discharge Instructions: - Discharge Summary Sheet kb - Nonspecific Chest Pain, Adult, [id number] kb - Dizziness, [id number] kb Forms: - Medication Reconciliation Form kb - Thank You Letter kb - Antibiotic Education kb - Prescription Opioid Use kb - Work release form eb Prescriptions: - Meclizine 25 mg Oral Tablet - take 1 tablet by ORAL route every 8 hours As needed; 30 tablet; Refills: 0, kb Product Selection Permitted Signatures: Dispatcher [employer] Batsheva Fuller, BARISTA-C BARISTA-Belgica Kennedy, RN RN iw Bradford Green MD MD rn
--- NOTE | 2022-11-08 10:34 | ER ---
Nurse's Notes [facility] Name: Devi Calvert Age: 22 yrs Sex: Female : 2000 Arrival Date: 11/08/2022 Time: 07:34 Bed 9 Private MD: Diagnosis: Chest pain, unspecified;Dizziness and giddiness Presentation: 11/08 08:14 Chief complaint: Patient states: chest pain and dizziness since last night. Coronavirus iw screen: At this time, the client does not indicate any symptoms associated with coronavirus-19. Ebola Screen: Patient negative for fever greater than or equal to 101.5 degrees Fahrenheit, and additional compatible Ebola Virus Disease symptoms Patient denies exposure to infectious person. Patient denies travel to an Ebola-affected area in the 21 days before illness onset. No symptoms or risks identified at this time. Initial Sepsis Screen: Does the patient meet any 2 criteria? No. Patient's initial sepsis screen is negative. Does the patient have a suspected source of infection? No. Patient's initial sepsis screen is negative. Risk Assessment: Do you want to hurt yourself or someone else? Patient reports no desire to harm self or others. Onset of symptoms was November 07, 2022. 08:14 Method Of Arrival: EMS: [facility] iw 08:14 Acuity: CHANTAL 3 iw Historical: - Allergies: 08:15 No Known Allergies; iw - PMHx: 08:15 Anxiety; Asthma; Depression; IPH; Migraines; previous suicide attempt; Schizophrenia; iw vocal chords problem; Screenin:32 [facility] ED Fall Risk Assessment (Adult) History of falling in the last 3 months, iw including since admission. Abuse screen: Denies threats or abuse. Denies injuries from another. Nutritional screening: No deficits noted. Tuberculosis screening: No symptoms or risk factors identified. Assessment: 09:32 Reassessment: Patient appears in no apparent distress at this time. Patient and/or iw family updated on plan of care and expected duration. Pain level reassessed. Patient is alert, oriented x 3, equal unlabored respirations, skin warm/dry/pink. Patient states feeling better. Patient states symptoms have improved. Vital Signs: 08:17 BP 115 / 73; Pulse 84; Resp 16; Temp 98.2; Pulse Ox 98% on R/A; Weight 58.06 kg; Height iw 5 ft. 2 in. (157.48 cm); Pain 7/10; 08:58 BP 98 / 71 Sitting; Pulse 88; Resp 16; Pulse Ox 98% on R/A; mm9 09:00 BP 100 / 77 Standing; Pulse 89; Resp 16; Pulse Ox 98% on R/A; mm9 09:02 BP 100 / 70 Supine; Pulse 77; Resp 16; Pulse Ox 95% on R/A; mm9 08:17 Body Mass Index 23.41 (58.06 kg, 157.48 cm) iw ED Course: 07:34 Patient arrived in ED. rg4 08:03 Batsheva Mora FNP-C is PHCP. kb 08:03 Bradford Green MD is Attending Physician. kb 08:15 Triage completed. iw 08:17 Belgica Streeter, RN is Primary Nurse. iw 08:17 Arm band placed on. iw 08:27 CT Head Brain wo Cont In Process Unspecified. EDMS 08:32 XRAY Chest (1 view) In Process Unspecified. EDMS 08:38 Basic Metabolic Panel Sent. mm9 08:38 CBC with Diff Sent. mm9 08:38 Troponin HS Sent. mm9 08:38 Initial lab(s) drawn, by me, sent to lab. EKG done, by ED staff, reviewed by Batsheva HANLEY. Inserted saline lock: 20 gauge in right antecubital area, using aseptic technique. Blood collected. 08:39 Patient has correct armband on for positive identification. Bed in low position. Call mm9 light in reach. Side rails up X 1. hall monitor on. Pulse ox on. NIBP on. 08:56 Urine collected: clean catch specimen, clear. mm9 09:02 Urine --Ancillary (enter results) Sent. mm9 Administered Medications: 09:32 Drug: Meclizine 25 mg Route: PO; iw 10:00 Follow up: Response: No adverse reaction iw 09:32 Drug: NS 0.9% 1000 ml Route: IV; Rate: 1000 ml; Site: right antecubital; iw 10:35 Follow up: IV Status: Completed infusion iw Outcome: 10:34 Discharge ordered by . kb 11:01 Patient left the ED. iw Signatures: Dispatcher [employer] EDMS Batsheva Mora FNP-C FNP-Ckb Belgica Streeter, RN RN iw Rosales, Dora rg4 Jensen, Mary mm9
[2022-11-08 11:23] VITALS: TEMP 98.2
[2022-11-08 11:27] VITALS: BP 100/70; O2SAT 95
--- NOTE | 2022-11-12 08:37 | EKG ---
Test Date: 2022-11-08 Test Time: 08:19:04 Insurance Sales Manager: AGNES MEASUREMENT RESULTS: Intervals: Rate: 81 ME: 130 QRSD: 74 QT: 362 QTc: 420 [place]: P: 50 ME: 130 QRS: 19 T: 41 INTERPRETIVE STATEMENTS: Normal sinus rhythm with sinus arrhythmia Normal ECG Compared to ECG 02/19/2020 02:21:28 No significant changes Electronically Signed On 11-12-22 08:32:56 [employer] M[employer] by Victoriano Cohen
== END 2022-11-08 11:01 | disposition home or self-care (01) ==
LOC: ER 07:30
DX: R07.89 Other chest pain (principal); R42 Dizziness and giddiness
CPT/HCPCS: 85025; 80048; 36415; 81003; 84484; 70450; 71045; 96360; 99285; J8597; J7030; 93005

== ENCOUNTER 2023-08-25 12:04 | Emergency (ER) | payer BC ==
--- OUTSIDE RECORDS SUMMARY | 2023-08-25 12:15 | XMS REPORT | Continuity of Care Document ---
:2000 Author Organization [facility] t Address [address] [facility] [address] [place] [address] Care Team Providers Name Role Phone Blas Campbella Primary Care Physician ZARINA KENNEDY Attending Clinician Unavailable Nurse, [facility] Attending Clinician Unavailable Zarina Kennedy MD Attending Clinician BRIT LAUREN Attending Clinician Unavailable IDA MAY Attending Clinician Unavailable Doctor Unassigned, [place] Attending Clinician Unavailable Norma Partida MD Attending Clinician NORMA PARTIDA Attending Clinician Unavailable HINA SANON Attending Clinician Unavailable HINA SANON Attending Clinician Unavailable WENDY RIVERA Attending Clinician Unavailable Wendy Rivera PA-C Attending Clinician GUTIERREZ BRAVO Attending Clinician Unavailable Gutierrez Bravo MD Attending Clinician [facility] Attending Clinician Unavailable [facility], Isha Alvarado Attending Clinician [phone] Kermit, Nephrology Attending Clinician Unavailable STAN TY Attending Clinician Unavailable STAN TY Attending Clinician Unavailable Pedro ALVARADO Attending Clinician Unavailable Pedro Fairchild Attending Clinician Jordan Gaspar CRNA Attending Clinician Jesus Martinez MD, Leonard Attending Clinician Only, [facility] Test Attending Clinician Unavailable Kary sOeguera MD Attending Clinician 2, [facility] Attending Clinician Unavailable Lashay Merritt RN Attending Clinician Unavailable Ultrasound, [facility] Attending Clinician Unavailable Sailaja Aguillon MD, Sherry Attending Clinician [phone] Kian Gutierrez MD Attending Clinician Mihai Fernandez MD Attending Clinician Unknown, Attending Attending Clinician Unavailable [...] Number Effective Date Expiration Date S maurice 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 0-14 it y of disorder disorder 00:00: [place] [facility] History of History of Disease Active 2018-11 U nivers self-harm self-harm 0-14 ity of 00:00: [place] [facility] Bipolar 1 Bipolar 1 Disease Active Uni vers disorder disorder 8-30 ity of 00:00: [place] 00 Medical Branch Asthma Asthma Disease Active 2019- Univers 2-01 ity of 00:00: [place] [facility] 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 Formattin g of this note might be different from the original. ONE episode. Normal lung biopsy. Treated with solumedro l monthly (3 days) x 5 months. Initially on plaquenil , stopped after 6-8 months. She's being observed off meds. Allergies, Adverse Reactions, Alerts Allergy Allergy Status Severity Reaction(s) Onset Inactive Treating Comm ents Source Name Type Date Date Clinician No Known DA Active [facility] s NO KNOWN Drug Active Univers ALLERGIE Class ity of S [facility] Social History Social Habit Start Date Stop Date Quantity Comments Source Gender identity Universit y of [facility] Sexual orientation Univer sity [facility] Alcohol intake 2023-08-15 2023-08-15 Ex-drinker [facility] 00:00:00 00:00:00 (finding) [facility] Exposure to 2023-02-08 2023-02-18 Not sure [facility] SARS-CoV-2 (event) 00:00:00 14:56:00 [facility] History of Social 2022-07-03 2022-07-03 Univers ity of function 00:00:00 00:00:00 [facility] Cigarettes smoked 2022-06-03 2022-06-03 Univers ity of current (pack per 00:00:00 00:00:00 [facility] ) - Reported Branch Tobacco use and 2022-06-03 2022-06-03 Smokeless Universit y of exposure 00:00:00 00:00:00 tobacco non-user [facility] dical [place] Tobacco Comment 2022-06-03 2022-06-03 1/2 PPD Universit y of 00:00:00 00:00:00 [facility] History of tobacco 2019-07-05 Cigarette Smoker University of use 00:00:00 [facility] Sex Assigned At [birth year] Universit y of 00:00:00 00:00:00 [facility] Smoking Status Start Date Stop Date Source Ex-smoker 2022-06-03 00:00:00 2022-06-03 00:00:00 Universi ty [facility] Medications Ordered Filled Start Stop Current Ordering Indication Dosage Frequency Signature Comments Components Source Medication Medication Date Date Medication? Clinician (SIG) Name Name medroxyPROG 2022-11- No [id number] 150mg Univers ESTERone 008-15 ity of (DEPO-PROVE 14:00: 13:03 [place] RA) syringe 00 :00 Medical 150 mg Branch medroxyPROG 2022-11- No [id number] 150mg 150 mg, Univers ESTERone 0 10-06 Intramuscu ity of (DEPO-PROVE 14:00: 13:03 lar, ONCE, [place] RA) syringe 00 :00 1 dose, On Me dical 150 mg Fri Branch 08/15/23 at 0900, Routine medroxyPROG 2022- No [id number] 150mg Univers ESTERone 05-1405 ity of (DEPO-PROVE 21:30: 20:47 [place] RA) syringe 00 :00 Medical 150 mg Branch medroxyPROG 2022- No [id number] 150mg 150 mg, Univers ESTERone 05-14 Intramuscu ity of (DEPO-PROVE 21:30: 20:47 lar, ONCE, [place] RA) syringe 00 :00 1 dose, On Me dical 150 mg 05/14/23 Branch at 1630, Routine medroxyPROG 2022- No [id number] 150mg Univers ESTERone 02-18-11 ity of (DEPO-PROVE 21:15: 20:22 [place] RA) syringe 00 :00 Medical 150 mg Branch medroxyPROG 2022- No [id number] 150mg 150 mg, Univers ESTERone 02-18-11 Intramuscu ity of (DEPO-PROVE 21:15: 20:22 lar, ONCE, [place] RA) syringe 00 :00 1 dose, On Me dical 150 mg Tue Branch 02/18/23 at 1615, Routine albuterol Yes 2{puff} Inhale 2 U nivers 90 4-11 Puffs ity of mcg/actuati 15:20: every 6 Tk as on inhaler 25 (six) Medical hours as Branch needed. albuterol Yes 2.5mg Inhale 3 Uni vers 2.5 mg /3 4-11 mL every 4 ity of mL (0.083 15:20: (four) [place] %) 25 hours as Medical nebulizer needed. Branch solution SUMAtriptan Yes sumatripta Univers 50 mg 4-11 n 50 mg ity of tablet 15:20: tablet [place] 25 Medical Branch albuterol 2023-0 Yes 2{puff} Inhale 2 U nivers 90 4-11 Puffs ity of mcg/actuati 15:20: every 6 Tk as on inhaler 25 (six) Medical hours as Branch needed. albuterol 2022-0 Yes 2.5mg Inhale 3 Uni vers 2.5 mg /3 4-11 mL every 4 ity of mL (0.083 15:20: (four) [place] %) 25 hours as Medical nebulizer needed. Branch solution SUMAtriptan 0 Yes sumatripta Univers 50 mg 4-11 n 50 mg ity of tablet 15:20: tablet [address] [place] [address] Branch albuterol Yes 2{puff} Inhale 2 U nivers 90 4-11 Puffs ity of mcg/actuati 15:20: every 6 Tk as on inhaler 25 (six) Medical hours as Branch needed. albuterol 2022-0 Yes 2.5mg Inhale 3 Uni vers 2.5 mg /3 4-11 mL every 4 ity of mL (0.083 15:20: (four) [place] %) 25 hours as Medical nebulizer needed. Branch solution SUMAtriptan Yes sumatripta Univers 50 mg 4-11 n 50 mg ity of tablet 15:20: tablet [address] [place] [address] Branch albuterol 2022-0 Yes 2{puff} Inhale 2 U nivers 90 4-11 Puffs ity of mcg/actuati 15:20: every 6 Tk as on inhaler 25 (six) Medical hours as Branch needed. albuterol 2022-0 Yes 2.5mg Inhale 3 Uni vers 2.5 mg /3 4-11 mL every 4 ity of mL (0.083 15:20: (four) [place] %) 25 hours as Medical nebulizer needed. Branch solution SUMAtriptan 2022-0 Yes sumatripta Univers 50 mg 4-11 n 50 mg ity of tablet 15:20: tablet Medical Branch albuterol 0 Yes 2{puff} Inhale 2 U nivers 90 4-11 Puffs ity of mcg/actuati 15:20: every 6 Tk as on inhaler 25 (six) Medical hours as Branch needed. albuterol 2022-0 Yes 2.5mg Inhale 3 Uni vers 2.5 mg /3 4-11 mL every 4 ity of mL (0.083 15:20: (four) [place] %) 25 hours as Medical nebulizer needed. Branch solution SUMAtriptan Yes sumatripta Univers 50 mg 4-11 n 50 mg ity of tablet 15:20: tablet [place] 25 Medical Branch medroxyPROG 2022- No [id number] 150mg Univers ESTERone 11-18 ity of (DEPO-PROVE 22:00: 21:18 [place] RA) syringe 00 :00 Medical 150 mg Branch medroxyPROG 2022- No [id number] 150mg 150 mg, Univers ESTERone 11-18 Intramuscu ity of (DEPO-PROVE 22:00: 21:18 lar, ONCE, [place] RA) syringe 00 :00 1 dose, On Me dical 150 mg Fri11/18/22 Branch at 1600, Routine medroxyPROG 2022- No [id number] 150mg Univers ESTERone 11-18 ity of (DEPO-PROVE 22:00: 21:18 [place] RA) syringe 00 :00 Medical 150 mg Branch medroxyPROG 2022- No [id number] 150mg 150 mg, Univers ESTERone 11-18 Intramuscu ity of (DEPO-PROVE 22:00: 21:18 lar, ONCE, [place] RA) syringe 00 :00 1 dose, On Me dical 150 mg Fri11/18/22 Branch at 1600, Routine clindamycin 2022- No clindamyci Univers 300 mg 11-18 n HCl 300 ity of capsule 15:33: 00:00 mg capsule Tk as 50 :00 Take 1 Medical capsule 3 Branch times a day by oral route for 10 days. clindamycin 2022- No clindamyci Univers 300 mg 11-18 n HCl 300 ity of capsule 15:33: 00:00 mg capsule Tk as 50 :00 Take 1 Medical capsule 3 Branch times a day by oral route for 10 days. ciprofloxac 2022- No ciprofloxa Univers in HCl 500 11-18 monica 500 mg it y of mg tablet 15:33: 00:00 tablet [place] 47 :00 Medical Branch ciprofloxac 2022- No ciprofloxa Univers in HCl 500 11-18 monica 500 mg it y of mg tablet 15:33: 00:00 tablet [place] 47 :00 Medical Branch cephALEXin 2022- No cephalexin Univers 500 mg 11-18 500 mg ity of capsule 15:33: 00:00 capsule [place] 40 :00 Medical Branch cephALEXin 2022- No cephalexin Univers 500 mg 11-18 500 mg ity of capsule 15:33: 00:00 capsule [place] 40 :00 Medical Branch azithromyci 2022- No azithromyc Univers n 250 mg 11-18 in 250 mg ity o f tablet 15:33: 00:00 tablet [place] 37 :00 TAKE BY Medical MOUTH 2 Branch TABLETS TODAY THEN 1 TABLE DAILY FOR NEXT 4 DAYS azithromyci 2022- No azithromyc Univers n 250 mg 11-18 in 250 mg ity o f tablet 15:33: 00:00 tablet [place] 37 :00 TAKE BY Medical MOUTH 2 Branch TABLETS TODAY THEN 1 TABLE DAILY FOR NEXT 4 DAYS doxylamine- 2022- No Diclegis U nivers pyridoxine, 11-18 10 mg-10 ity of vit B6, 15:33: 00:00 mg [place] 10-10 mg 25 :00 tablet,del Medic al per tablet ayed Branch release TAKE 1 TABLET BY MOUTH THREE TIMES A DAY NEEDED AND 2 AT BEDTIME doxylamine- 2022- No Diclegis U nivers pyridoxine, 11-18 10 mg-10 ity of vit B6, 15:33: 00:00 mg [place] 10-10 mg 25 :00 tablet,del Medic al per tablet ayed Branch release TAKE 1 TABLET BY MOUTH THREE TIMES A DAY NEEDED AND 2 AT BEDTIME norgestimat 2022- No Sprintec U nivers e-ethinyl 11-18 (28) 0.25 ity of estradioL 15:33: 00:00 mg-35 mcg [place] 0.25-35 12 :00 tablet Medical mg-mcg per TAKE 1 Branch tablet TABLET BY MOUTH EVERY DAY norgestimat 2022- No Sprintec U nivers e-ethinyl 11-18 (28) 0.25 ity of estradioL 15:33: 00:00 mg-35 mcg [place] 0.25-35 12 :00 tablet Medical mg-mcg per TAKE 1 Branch tablet TABLET BY MOUTH EVERY DAY Nitrofurant 2022- No nitrofuran Univers oin&Nit. 11-18 toin ity of Macrocryst 15:33: 00:00 monohydrat [place] 100 mg 09 :00 e/macrocry Medical capsule stals 100 Branch mg capsule Nitrofurant 2022- No nitrofuran Univers oin&Nit. 11-18 toin ity of Macrocryst 15:33: 00:00 monohydrat [place] 100 mg 09 :00 e/macrocry Medical capsule stals 100 Branch mg capsule 2022- No Prenatabs Uni vers vit,[id number] Rx 29 mg ity of iron/folic 15:33: 00:00 iron-1 mg [place] (PRENATABS 03 :00 tablet Medical RX ORAL) Branch 2022- No Prenatabs Uni vers vit,[id number] Rx 29 mg ity of iron/folic 15:33: 00:00 iron-1 mg [place] (PRENATABS 03 :00 tablet Medical RX ORAL) Branch PNV38/iron, 2022- No CitraNatal Univers crb,g/folic 11-18 Assure 35 it y of /dss/dha 15:33: 00:00 mg iron-1 [place] as (CITRANATAL 02 :00 mg-50 Medical ASSURE mg-300 mg Branch ORAL) oral pack PNV38/iron, 2022- No CitraNatal Univers crb,g/folic 11-18 Assure 35 it y of /dss/dha 15:33: 00:00 mg iron-1 [place] (CITRANATAL 02 :00 mg-50 Medical ASSURE mg-300 mg Branch ORAL) oral pack PNV 67-iron 2022- No Vitafol [place] ps-folate 11-18 Ultra 29 ity o f no.1-dha 15:32: 00:00 mg iron-1 [place]k as (VITAFOL 56 :00 mg-200 mg Medica l ULTRA) 29 capsule Branch mg iron- 1 mg-200 mg Cap PNV 67-iron 2022- No Vitafol [place] ps-folate 11-18 Ultra 29 ity o f no.1-dha 15:32: 00:00 mg iron-1 [place] as (VITAFOL 56 :00 mg-200 mg Medica l ULTRA) 29 capsule Branch mg iron- 1 mg-200 mg Cap sulfamethox 2022- No sulfametho Univers azole-trime 11-18 xazole 800 i ty of thoprim 15:32: 00:00 mg-trimeth [place] 800-160 mg 50 :00 oprim 160 Medi jose per tablet mg tablet Bran ch sulfamethox 2022- No sulfametho Univers azole-trime 11-18 xazole 800 i ty of thoprim 15:32: 00:00 mg-trimeth [place] 800-160 mg 50 :00 oprim 160 Medi jose per tablet mg tablet Bran ch predniSONE Yes prednisone U nivers 20 mg -09 20 mg ity of tablet 14:55: tablet [address] prazosin 1 Yes prazosin 1 U nivers mg capsule 1-09 mg capsule ity of 14:55: [address] ondansetron Yes ondansetro Univers 4 mg tablet 09 n HCl 4 mg it y of 14:55: tablet [place] [address] TAKE 1 Medical TABLET BY Branch MOUTH EVERY 12 HOURS NEEDED ondansetron Yes ondansetro Univers 4 mg -09 n 4 mg ity of disintegrat 14:55: disintegra [facility] tablet 24 ting Medical tablet Branch lurasidone Yes Latuda 20 [place] 20 mg 1-09 mg tablet ity of tablet 14:55: [address] Sodium Yes Denta 5000 Unive rs Fluoride, 11-18 Plus 1.1 % ity of Dental Gel, 14:55: cream USE [place] 1.1 % Crea 24 TWICE A Medica l DAY IN THE [place] MORNING AND AT NIGHT. DO NOT EAT OR DRINK FOR AT LEAST 30 MINS fluconazole Yes fluconazol Univers 200 mg - e 200 mg ity of tablet 14:55: tablet [address] escitalopra Yes escitalopr Univers m oxalate 11-18 am 20 mg ity of 20 mg 14:55: tablet [address] diphenoxyla Yes diphenoxyl Univers te-atropine 11-18 ate-atropi it y of 2.5-0.025 14:55: ne 2.5 [place] mg tablet 24 mg-0.025 Medica l mg tablet [place] dicyclomine Yes dicyclomin Univers 20 mg 11-18 e 20 mg ity of tablet 14:55: tablet [place] 24 TAKE 1 Medical TABLET BY [place] MOUTH EVERY 6 HOURS NEEDED chlorhexidi Yes chlorhexid Univers ne 0.12 % 11-18 ine ity of mouthwash 14:55: gluconate [place] as 24 0.12 % Medical mouthwash [place] USE TWICE DAILY busPIRone 5 Yes buspirone U nivers mg tablet 11-18 5 mg ity of 14:55: tablet [address] ARIPiprazol Yes aripiprazo Univers e 5 mg 11-18 le 5 mg ity of tablet 14:55: tablet [address] iron-FA-dha Yes EnLyte 1.5 Univers -epa-FAD-NA - mg ity of DH-be-mv 14:55: iron-8.73 [place] (ENLYTE) 24 mg Medical 1.5 mg capsule, Branch iron- 8.73 mediate - mg CpID delay release predniSONE Yes prednisone U nivers 20 mg 11-18 20 mg ity of tablet 14:55: tablet [address] prazosin 1 Yes prazosin 1 U nivers mg capsule -09 mg capsule ity of 14:55: [address] ondansetron Yes ondansetro Univers 4 mg tablet 11-18 n HCl 4 mg it y of 14:55: tablet [place] [address] TAKE 1 Medical TABLET BY [place] MOUTH EVERY 12 HOURS NEEDED ondansetron Yes ondansetro Univers 4 mg 11-18 n 4 mg ity of disintegrat 14:55: disintegra [place] ing tablet 24 ting Medical tablet [place] lurasidone Yes Latuda 20 Un [place] 20 mg -09 mg tablet ity of tablet 14:55: [address] Sodium Yes Denta 5000 Unive rs Fluoride, 11-18 Plus 1.1 % ity of Dental Gel, 14:55: cream USE [place] 1.1 % Crea 24 TWICE A Medica l DAY IN THE [place] MORNING AND AT NIGHT. DO NOT EAT OR DRINK FOR AT LEAST 30 MINS fluconazole Yes fluconazol Univers 200 mg 11-18 e 200 mg ity of tablet 14:55: tablet [address] escitalopra Yes escitalopr Univers m oxalate 11-18 am 20 mg ity of 20 mg 14:55: tablet [address] diphenoxyla Yes diphenoxyl Univers te-atropine 11-18 ate-atropi it y of 2.5-0.025 14:55: ne 2.5 [place] mg tablet 24 mg-0.025 Medica l mg tablet [place] dicyclomine Yes dicyclomin Univers 20 mg 11-18 e 20 mg ity of tablet 14:55: tablet [place] 24 TAKE 1 Medical TABLET BY [place] MOUTH EVERY 6 HOURS NEEDED chlorhexidi Yes chlorhexid Univers ne 0.12 % 11-18 ine ity of mouthwash 14:55: gluconate [place] 24 0.12 % Medical mouthwash [place] USE TWICE DAILY busPIRone 5 Yes buspirone U nivers mg tablet 11-18 5 mg ity of 14:55: tablet [address] ARIPiprazol Yes aripiprazo Univers e 5 mg 11-18 le 5 mg ity of tablet 14:55: tablet [address] iron-FA-dha Yes EnLyte 1.5 Univers -epa-FAD-NA 11-18 mg ity of DH-be-mv 14:55: iron-8.73 [place] (ENLYTE[place] 24 mg Medical 1.5 mg capsule,im Branch iron- 8.73 mediate - mg CpID delay release predniSONE Yes prednisone U nivers 20 mg - 20 mg ity of tablet 14:55: tablet [address] prazosin 1 Yes prazosin 1 U nivers mg capsule - mg capsule ity of 14:55: [address] ondansetron Yes ondansetro Univers 4 mg tablet 11-18 n HCl 4 mg it y of 14:55: tablet [place] 24 TAKE 1 Medical TABLET BY Branch MOUTH EVERY 12 HOURS NEEDED ondansetron Yes ondansetro Univers 4 mg - n 4 mg ity of disintegrat 14:55: disintegra [place] ing tablet 24 ting Medical tablet [place] lurasidone Yes Latuda 20 [place] 20 mg - mg tablet ity of tablet 14:55: [address] Sodium Yes Denta 5000 Unive rs Fluoride, 11-18 Plus 1.1 % ity of Dental Gel, 14:55: cream USE [place] 1.1 % Crea 24 TWICE A Medica l DAY IN THE [place] MORNING AND AT NIGHT. DO NOT EAT OR DRINK FOR AT LEAST 30 MINS fluconazole Yes fluconazol Univers 200 mg 11-18 e 200 mg ity of tablet 14:55: tablet [address] escitalopra Yes escitalopr Univers m oxalate 11-18 am 20 mg ity of 20 mg 14:55: tablet [place] [facility] 24 [facility] diphenoxyla Yes diphenoxyl Univers te-atropine 11-18 ate-atropi it y of 2.5-0.025 14:55: ne 2.5 [place] mg tablet 24 mg-0.025 Medica l mg tablet [place] dicyclomine Yes dicyclomin Univers 20 mg 11-18 e 20 mg ity of tablet 14:55: tablet [place] 24 TAKE 1 Medical TABLET BY [place] MOUTH EVERY 6 HOURS NEEDED chlorhexidi Yes chlorhexid Univers ne 0.12 % 11-18 ine ity of mouthwash 14:55: gluconate [place] 24 0.12 % Medical mouthwash Branch USE TWICE DAILY busPIRone 5 Yes buspirone U nivers mg tablet 1-09 5 mg ity of 14:55: tablet [address] ARIPiprazol Yes aripiprazo Univers e 5 mg -09 le 5 mg ity of tablet 14:55: tablet [address] iron-FA-dha Yes EnLyte 1.5 Univers -epa-FAD-NA 1-09 mg ity of DH-be-mv 14:55: iron-8.73 [place] (ENLYTE[place] 24 mg Medical 1.5 mg capsule, Branch iron- 8.73 mediate - mg CpID delay release predniSONE Yes prednisone U nivers 20 mg -09 20 mg ity of tablet 14:55: tablet [address] prazosin 1 Yes prazosin 1 U nivers mg capsule 1-09 mg capsule ity of 14:55: [address] ondansetron Yes ondansetro Univers 4 mg tablet 09 n HCl 4 mg it y of 14:55: tablet [place] [address] TAKE 1 Medical TABLET BY [place] MOUTH EVERY 12 HOURS NEEDED ondansetron Yes ondansetro Univers 4 mg -09 n 4 mg ity of disintegrat 14:55: disintegra [facility] tablet 24 ting Medical tablet [place] lurasidone Yes Latuda 20 [place] 20 mg 1-09 mg tablet ity of tablet 14:55: [address] Sodium Yes Denta 5000 Unive rs Fluoride, 11-18 Plus 1.1 % ity of Dental Gel, 14:55: cream USE [place] 1.1 % Crea 24 TWICE A Medica l DAY IN THE [place] MORNING AND AT NIGHT. DO NOT EAT OR DRINK FOR AT LEAST 30 MINS fluconazole Yes fluconazol Univers 200 mg -09 e 200 mg ity of tablet 14:55: tablet [address] escitalopra Yes escitalopr Univers m oxalate 1- am 20 mg ity of 20 mg 14:55: tablet [address] diphenoxyla Yes diphenoxyl Univers te-atropine 11-18 ate-atropi it y of 2.5-0.025 14:55: ne 2.5 [place] mg tablet 24 mg-0.025 Medica l mg tablet [place] dicyclomine Yes dicyclomin Univers 20 mg 1-09 e 20 mg ity of tablet 14:55: tablet [place] [address] TAKE 1 Medical TABLET BY [place] MOUTH EVERY 6 HOURS NEEDED chlorhexidi Yes chlorhexid Univers ne 0.12 % 1-09 ine ity of mouthwash 14:55: gluconate [place] 24 0.12 % Medical mouthwash [place] USE TWICE DAILY busPIRone 5 Yes buspirone U nivers mg tablet -09 5 mg ity of 14:55: tablet [address] ARIPiprazol Yes aripiprazo Univers e 5 mg -09 le 5 mg ity of tablet 14:55: tablet [address] iron-FA-dha Yes EnLyte 1.5 Univers -epa-FAD-NA 1-09 mg ity of DH-be-mv 14:55: iron-8.73 [place] (ENLYTE[place] 24 mg Medical 1.5 mg capsule, Branch iron- 8.73 mediate - mg CpID delay release predniSONE Yes prednisone U nivers 20 mg 1-09 20 mg ity of tablet 14:55: tablet [address] prazosin 1 Yes prazosin 1 U nivers mg capsule 1-09 mg capsule ity of 14:55: [address] ondansetron Yes ondansetro Univers 4 mg tablet 1-09 n HCl 4 mg it y of 14:55: tablet [place] [address] TAKE 1 Medical TABLET BY [place] MOUTH EVERY 12 HOURS NEEDED ondansetron Yes ondansetro Univers 4 mg -09 n 4 mg ity of disintegrat 14:55: disintegra [facility] tablet 24 ting Medical tablet [place] lurasidone Yes Latuda 20 Un [place] 20 mg 1-09 mg tablet ity of tablet 14:55: [address] Sodium Yes Denta 5000 Unive rs Fluoride, 11-18 Plus 1.1 % ity of Dental Gel, 14:55: cream USE [place] 1.1 % Crea 24 TWICE A Medica l DAY IN THE [place] MORNING AND AT NIGHT. DO NOT EAT OR DRINK FOR AT LEAST 30 MINS fluconazole 2023-0 Yes fluconazol Univers 200 mg 11-18 e 200 mg ity of tablet 14:55: tablet [address] escitalopra Yes escitalopr Univers m oxalate 11-18 am 20 mg ity of 20 mg 14:55: tablet [address] diphenoxyla Yes diphenoxyl Univers te-atropine 11-18 ate-atropi it y of 2.5-0.025 14:55: ne 2.5 [place] mg tablet 24 mg-0.025 Medica l mg tablet [place] dicyclomine Yes dicyclomin Univers 20 mg 11-18 e 20 mg ity of tablet 14:55: tablet [place] 24 TAKE 1 Medical TABLET BY Branch MOUTH EVERY 6 HOURS NEEDED chlorhexidi Yes chlorhexid Univers ne 0.12 % 11-18 ine ity of mouthwash 14:55: gluconate [place] 24 0.12 % Medical mouthwash Branch USE TWICE DAILY busPIRone 5 Yes buspirone U nivers mg tablet 11-18 5 mg ity of 14:55: tablet [address] ARIPiprazol Yes aripiprazo Univers e 5 mg 11-18 le 5 mg ity of tablet 14:55: tablet [address] iron-FA-dha Yes EnLyte 1.5 Univers -epa-FAD-NA - mg ity of DH-be-mv 14:55: iron-8.73 [place] (ENLYTE[place] 24 mg Medical 1.5 mg capsule,im Branch iron- 8.73 mediate - mg CpID delay release predniSONE Yes prednisone U nivers 20 mg 11-18 20 mg ity of tablet 14:55: tablet [address] prazosin 1 Yes prazosin 1 U nivers mg capsule 1-09 mg capsule ity of 14:55: [address] ondansetron Yes ondansetro Univers 4 mg tablet 11-18 n HCl 4 mg it y of 14:55: tablet [place] 24 TAKE 1 Medical TABLET BY Branch MOUTH EVERY 12 HOURS NEEDED ondansetron Yes ondansetro Univers 4 mg 11-18 n 4 mg ity of disintegrat 14:55: disintegra [place] ing tablet 24 ting Medical tablet [place] lurasidone Yes Latuda 20 Un [place] 20 mg 1-09 mg tablet ity of tablet 14:55: [address] Sodium Yes Denta 5000 Unive rs Fluoride, 11-18 Plus 1.1 % ity of Dental Gel, 14:55: cream USE [place] 1.1 % Crea 24 TWICE A Medica l DAY IN THE [place] MORNING AND AT NIGHT. DO NOT EAT OR DRINK FOR AT LEAST 30 MINS fluconazole Yes fluconazol Univers 200 mg - e 200 mg ity of tablet 14:55: tablet [address] escitalopra Yes escitalopr Univers m oxalate 11-18 am 20 mg ity of 20 mg 14:55: tablet [address] diphenoxyla Yes diphenoxyl Univers te-atropine 11-18 ate-atropi it y of 2.5-0.025 14:55: ne 2.5 [place] mg tablet 24 mg-0.025 Medica l mg tablet [place] dicyclomine Yes dicyclomin Univers 20 mg 11-18 e 20 mg ity of tablet 14:55: tablet [place] [address] TAKE 1 Medical TABLET BY [place] MOUTH EVERY 6 HOURS NEEDED chlorhexidi Yes chlorhexid Univers ne 0.12 % 11-18 ine ity of mouthwash 14:55: gluconate Tk 24 0.12 % Medical mouthwash [place] USE TWICE DAILY busPIRone 5 Yes buspirone U nivers mg tablet 11-18 5 mg ity of 14:55: tablet [address] ARIPiprazol Yes aripiprazo Univers e 5 mg 11-18 le 5 mg ity of tablet 14:55: tablet [address] iron-FA-dha Yes EnLyte 1.5 Univers -epa-FAD-NA - mg ity of DH-be-mv 14:55: [place]8.73 [place] ([place] 24 mg Medical 1.5 mg capsule,im Branch iron- 8.73 mediate - mg CpID delay release predniSONE Yes prednisone U nivers 20 mg - 20 mg ity of tablet 14:55: tablet [address] prazosin 1 Yes prazosin 1 U nivers mg capsule 11-18 mg capsule ity of 14:55: [address] ondansetron Yes ondansetro Univers 4 mg tablet 11-18 n HCl 4 mg it y of 14:55: tablet [place] 24 TAKE 1 Medical TABLET BY Branch MOUTH EVERY 12 HOURS NEEDED ondansetron Yes ondansetro Univers 4 mg 11-18 n 4 mg ity of disintegrat 14:55: disintegra [facility] tablet 24 ting Medical tablet [place] lurasidone Yes Latuda 20 Un [place] 20 mg 11-18 mg tablet ity of tablet 14:55: [address] Sodium Yes Denta 5000 Unive rs Fluoride, 11-18 Plus 1.1 % ity of Dental Gel, 14:55: cream USE [place] 1.1 % Crea 24 TWICE A Medica l DAY IN THE [place] MORNING AND AT NIGHT. DO NOT EAT OR DRINK FOR AT LEAST 30 MINS fluconazole Yes fluconazol Univers 200 mg 11-18 e 200 mg ity of tablet 14:55: tablet [address] escitalopra Yes escitalopr Univers m oxalate 11-18 am 20 mg ity of 20 mg 14:55: tablet [address] diphenoxyla Yes diphenoxyl Univers te-atropine 11-18 ate-atropi it y of 2.5-0.025 14:55: ne 2.5 [place] mg tablet 24 mg-0.025 Medica l mg tablet [place] dicyclomine Yes dicyclomin Univers 20 mg 11-18 e 20 mg ity of tablet 14:55: tablet [place] 24 TAKE 1 Medical TABLET BY [place] MOUTH EVERY 6 HOURS NEEDED chlorhexidi Yes chlorhexid Univers ne 0.12 % 11-18 ine ity of mouthwash 14:55: gluconate Tk as 24 0.12 % Medical mouthwash [place] USE TWICE DAILY busPIRone 5 Yes buspirone U nivers mg tablet 11-18 5 mg ity of 14:55: tablet [address] ARIPiprazol Yes aripiprazo Univers e 5 mg 1-09 le 5 mg ity of tablet 14:55: tablet [address] iron-FA-dha Yes EnLyte 1.5 Univers -epa-FAD-NA 1-09 mg ity of DH-be-mv 14:55: [place]-8.73 [place] (EN[place] 24 mg Medical 1.5 mg capsule,im Branch iron- 8.73 mediate - mg CpID delay release predniSONE Yes prednisone U nivers 20 mg -09 20 mg ity of tablet 14:55: tablet [address] prazosin 1 Yes prazosin 1 U nivers mg capsule -09 mg capsule ity of 14:55: [address] ondansetron Yes ondansetro Univers 4 mg tablet 11-18 n HCl 4 mg it y of 14:55: tablet [place] 24 TAKE 1 Medical TABLET BY [place] MOUTH EVERY 12 HOURS NEEDED ondansetron Yes ondansetro Univers 4 mg 11-18 n 4 mg ity of disintegrat 14:55: disintegra [facility] tablet 24 ting Medical tablet [place] lurasidone Yes Latuda 20 Un [place] 20 mg 1-09 mg tablet ity of tablet 14:55: [address] Sodium Yes Denta 5000 Unive rs Fluoride, 11-18 Plus 1.1 % ity of Dental Gel, 14:55: cream USE [place] 1.1 % Crea 24 TWICE A Medica l DAY IN THE [place] MORNING AND AT NIGHT. DO NOT EAT OR DRINK FOR AT LEAST 30 MINS fluconazole Yes fluconazol Univers 200 mg 11-18 e 200 mg ity of tablet 14:55: tablet [address] escitalopra Yes escitalopr Univers m oxalate 11-18 am 20 mg ity of 20 mg 14:55: tablet [place] [facility] 24 [facility] diphenoxyla Yes diphenoxyl Univers te-atropine 11-18 ate-atropi it y of 2.5-0.025 14:55: ne 2.5 [place] mg tablet 24 mg-0.025 Medica l mg tablet [place] dicyclomine Yes dicyclomin Univers 20 mg -09 e 20 mg ity of tablet 14:55: tablet [place] 24 TAKE 1 Medical TABLET BY Branch MOUTH EVERY 6 HOURS NEEDED chlorhexidi Yes chlorhexid Univers ne 0.12 % - ine ity of mouthwash 14:55: gluconate [place] 24 0.12 % Medical mouthwash Branch USE TWICE DAILY busPIRone 5 Yes buspirone U nivers mg tablet 1-09 5 mg ity of 14:55: tablet [address] ARIPiprazol Yes aripiprazo Univers e 5 mg -09 le 5 mg ity of tablet 14:55: tablet [address] iron-FA-dha Yes EnLyte 1.5 Univers -epa-FAD-NA 1-09 mg ity of DH-be-mv 14:55: [place]-8.73 [place] (EN[place] 24 mg Medical 1.5 mg capsule,im Branch iron- 8.73 mediate - mg CpID delay release predniSONE Yes prednisone U nivers 20 mg 1-09 20 mg ity of tablet 14:55: tablet [address] prazosin 1 Yes prazosin 1 U nivers mg capsule 1-09 mg capsule ity of 14:55: [address] ondansetron Yes ondansetro Univers 4 mg tablet 1-09 n HCl 4 mg it y of 14:55: tablet [place] [address] TAKE 1 Medical TABLET BY Branch MOUTH EVERY 12 HOURS NEEDED ondansetron Yes ondansetro Univers 4 mg -09 n 4 mg ity of disintegrat 14:55: disintegra [facility] tablet 24 ting Medical tablet [place] lurasidone Yes Latuda 20 Un [place] 20 mg 1-09 mg tablet ity of tablet 14:55: [address] Sodium Yes Denta 5000 Unive rs Fluoride, - Plus 1.1 % ity of Dental Gel, 14:55: cream USE [place] 1.1 % Crea 24 TWICE A Medica l DAY IN THE [place] MORNING AND AT NIGHT. DO NOT EAT OR DRINK FOR AT LEAST 30 MINS fluconazole Yes fluconazol Univers 200 mg 1-09 e 200 mg ity of tablet 14:55: tablet [address] escitalopra Yes escitalopr Univers m oxalate 11-18 am 20 mg ity of 20 mg 14:55: tablet [place] tablet 24 Medical [place] diphenoxyla Yes diphenoxyl Univers te-atropine 11-18 ate-atropi it y of 2.5-0.025 14:55: ne 2.5 [place] mg tablet 24 mg-0.025 Medica l mg tablet Branch dicyclomine Yes dicyclomin Univers 20 mg 11-18 e 20 mg ity of tablet 14:55: tablet [place] 24 TAKE 1 Medical TABLET BY Branch MOUTH EVERY 6 HOURS NEEDED chlorhexidi Yes chlorhexid Univers ne 0.12 % 11-18 ine ity of mouthwash 14:55: gluconate [place] 24 0.12 % Medical mouthwash Branch USE TWICE DAILY busPIRone 5 Yes buspirone U nivers mg tablet 11-18 5 mg ity of 14:55: tablet [address] ARIPiprazol Yes aripiprazo Univers e 5 mg 11-18 le 5 mg ity of tablet 14:55: tablet [address] iron-FA-dha Yes EnLyte 1.5 Univers -epa-FAD-NA -09 mg ity of DH-be-mv 14:55: [place]-8.73 [place] (EN[place] 24 mg Medical 1.5 mg capsule,im Branch iron- 8.73 mediate - mg CpID delay release predniSONE Yes prednisone U nivers 20 mg - 20 mg ity of tablet 14:55: tablet [address] prazosin 1 Yes prazosin 1 U nivers mg capsule -09 mg capsule ity of 14:55: [address] ondansetron Yes ondansetro Univers 4 mg tablet -09 n HCl 4 mg it y of 14:55: tablet [place] 24 TAKE 1 Medical TABLET BY Branch MOUTH EVERY 12 HOURS NEEDED ondansetron Yes ondansetro Univers 4 mg -09 n 4 mg ity of disintegrat 14:55: disintegra [place] ing tablet 24 ting Medical tablet [place] lurasidone Yes Latuda 20 Un [place] 20 mg 1-09 mg tablet ity of tablet 14:55: [address] Sodium Yes Denta 5000 Unive rs Fluoride, 11-18 Plus 1.1 % ity of Dental Gel, 14:55: cream USE [place] 1.1 % Crea 24 TWICE A Medica l DAY IN THE [place] MORNING AND AT NIGHT. DO NOT EAT OR DRINK FOR AT LEAST 30 MINS fluconazole Yes fluconazol Univers 200 mg - e 200 mg ity of tablet 14:55: tablet [address] escitalopra Yes escitalopr Univers m oxalate 11-18 am 20 mg ity of 20 mg 14:55: tablet [address] diphenoxyla Yes diphenoxyl Univers te-atropine 11-18 ate-atropi it y of 2.5-0.025 14:55: ne 2.5 [place] mg tablet 24 mg-0.025 Medica l mg tablet [place] dicyclomine Yes dicyclomin Univers 20 mg 11-18 e 20 mg ity of tablet 14:55: tablet [place] [address] TAKE 1 Medical TABLET BY [place] MOUTH EVERY 6 HOURS NEEDED chlorhexidi Yes chlorhexid Univers ne 0.12 % 11-18 ine ity of mouthwash 14:55: gluconate [place] [address] 0.12 % Medical mouthwash [place] USE TWICE DAILY busPIRone 5 Yes buspirone U nivers mg tablet 11-18 5 mg ity of 14:55: tablet [address] ARIPiprazol Yes aripiprazo Univers e 5 mg 11-18 le 5 mg ity of tablet 14:55: tablet [address] iron-FA-dha Yes EnLyte 1.5 Univers -epa-FAD-NA -09 mg ity of DH-be-mv 14:55: [place]-8.73 [place] ([place] 24 mg Medical 1.5 mg capsule,im Branch iron- 8.73 mediate - mg CpID delay release predniSONE Yes prednisone U nivers 20 mg -09 20 mg ity of tablet 14:55: tablet [address] prazosin 1 Yes prazosin 1 U nivers mg capsule -09 mg capsule ity of 14:55: [address] ondansetron Yes ondansetro Univers 4 mg tablet 11-18 n HCl 4 mg it y of 14:55: tablet [place] 24 TAKE 1 Medical TABLET BY Branch MOUTH EVERY 12 HOURS NEEDED ondansetron Yes ondansetro Univers 4 mg 11-18 n 4 mg ity of disintegrat 14:55: disintegra [place] ing tablet 24 ting [facility] tablet [place] lurasidone Yes Latuda 20 Un [place] 20 mg -09 mg tablet ity of tablet 14:55: [address] Sodium Yes Denta 5000 Unive rs Fluoride, 11-18 Plus 1.1 % ity of Dental Gel, 14:55: cream USE [place] 1.1 % Crea 24 TWICE A Medica l DAY IN THE [place] MORNING AND AT NIGHT. DO NOT EAT OR DRINK FOR AT LEAST 30 MINS fluconazole Yes fluconazol Univers 200 mg 11-18 e 200 mg ity of tablet 14:55: tablet [address] escitalopra Yes escitalopr Univers m oxalate 11-18 am 20 mg ity of 20 mg 14:55: tablet [address] diphenoxyla Yes diphenoxyl Univers te-atropine 11-18 ate-atropi it y of 2.5-0.025 14:55: ne 2.5 [place] mg tablet 24 mg-0.025 Medica l mg tablet [place] dicyclomine Yes dicyclomin Univers 20 mg 09 e 20 mg ity of tablet 14:55: tablet [place] [address] TAKE 1 Medical TABLET BY [place] MOUTH EVERY 6 HOURS NEEDED chlorhexidi Yes chlorhexid Univers ne 0.12 % 11-18 ine ity of mouthwash 14:55: gluconate [place] as 24 0.12 % Medical mouthwash [place] USE TWICE DAILY busPIRone 5 Yes buspirone U nivers mg tablet 11-18 5 mg ity of 14:55: tablet [address] ARIPiprazol Yes aripiprazo Univers e 5 mg 11-18 le 5 mg ity of tablet 14:55: tablet [address] iron-FA-dha Yes EnLyte 1.5 Univers -epa-FAD-NA 1-09 mg ity of DH-be-mv 14:55: iron-8.73 [place] (EN[place] 24 mg Medical 1.5 mg capsule,im Branch iron- 8.73 mediate - mg CpID delay release miSOPROStoL 3-0 Yes [id number] Take one Univers 200 mcg 1-09 tablet ity of tablet 00:00: night [place] 00 before Medical procedure, Branch then take one tablet morning of procedure miSOPROStoL 2022-0 Yes [id number] Take one Univers 200 mcg 1-09 tablet ity of tablet 00:00: night [place] 00 before Medical procedure, Branch then take one tablet morning of procedure miSOPROStoL 2023-0 Yes [id number] Take one Univers 200 mcg 1-09 tablet ity of tablet 00:00: night [place] 00 before Medical procedure, Branch then take one tablet morning of procedure miSOPROStoL 2023-0 Yes [id number] Take one Univers 200 mcg 1-09 tablet ity of tablet 00:00: night [place] 00 before Medical procedure, Branch then take one tablet morning of procedure miSOPROStoL 2023-0 Yes [id number] Take one Univers 200 mcg 1-09 tablet ity of tablet 00:00: night [place] 00 before Medical procedure, Branch then take one tablet morning of procedure miSOPROStoL 2023-0 Yes [id number] Take one Univers 200 mcg 1-09 tablet ity of tablet 00:00: night [place] 00 before Medical procedure, Branch then take one tablet morning of procedure miSOPROStoL 2023-0 Yes [id number] Take one Univers 200 mcg 1-09 tablet ity of tablet 00:00: night [place] 00 before Medical procedure, Branch then take one tablet morning of procedure miSOPROStoL 2023-0 Yes [id number] Take one Univers 200 mcg 1-09 tablet ity of tablet 00:00: night [place] 00 before Medical procedure, Branch then take one tablet morning of procedure miSOPROStoL 2023-0 Yes [id number] Take one Univers 200 mcg 1-09 tablet ity of tablet 00:00: night [place] 00 before Medical procedure, Branch then take one tablet morning of procedure miSOPROStoL 2023-0 Yes [id number] Take one Univers 200 mcg 1-09 tablet ity of tablet 00:00: night [place] 00 before Medical procedure, Branch then take one tablet morning of procedure miSOPROStoL 2023-0 Yes [id number] Take one Univers 200 mcg 1-09 tablet ity of tablet 00:00: night [place] 00 before Medical procedure, Branch then take one tablet morning of procedure medroxyPROG 2021-11- No [id number] 150mg Univers ESTERone 0-17 10-17 ity of (DEPO-PROVE 21:15: 20:14 [facility]) syringe 00 :00 Medical 150 mg Branch medroxyPROG 2021-11- No [id number] 150mg 150 mg, Univers ESTERone 0-17 17 Intramuscu ity of (DEPO-PROVE 21:15: 20:14 [place], ONCE, [facility]) syringe 00 :00 1 dose, On Me dical 150 mg [facility] 08/26/22 at 1615, Routine SUMAtriptan Yes sumatripta Univers 50 mg 8-24 n 50 mg ity of tablet 15:26: tablet [address] sulfamethox Yes sulfametho Univers azole-trime 8-24 xazole 800 it y of thoprim 15:26: mg-trimeth [place] 800-160 mg 51 oprim 160 Medi jose per tablet mg tablet Bran ch predniSONE Yes prednisone U nivers 20 mg 8-24 20 mg ity of tablet 15:26: tablet [address] prazosin 1 Yes prazosin 1 U nivers mg capsule 8-24 mg capsule ity of 15:26: [address] ondansetron Yes ondansetro Univers 4 mg tablet 8-24 n HCl 4 mg it y of 15:26: tablet [place] [address] TAKE 1 Medical TABLET BY [place] MOUTH EVERY 12 HOURS NEEDED ondansetron Yes ondansetro Univers 4 mg 8-24 n 4 mg ity of disintegrat 15:26: disintegra [facility] tablet 51 ting Medical tablet [place] Nitrofurant Yes nitrofuran Univers oin&Nit. 8-24 toin ity of Macrocryst 15:26: monohydrat [place] 100 mg 51 e/macrocry Medical capsule stals 100 Branch mg capsule lurasidone Yes Latuda 20 Un [place] 20 mg 8-24 mg tablet ity of tablet 15:26: [address] Sodium Yes Denta 5000 Unive rs Fluoride, 824 Plus 1.1 % ity of Dental Gel, 15:26: cream USE [place] 1.1 % Crea 51 TWICE A Medica l DAY IN THE [place] MORNING AND AT NIGHT. DO NOT EAT OR DRINK FOR AT LEAST 30 MINS fluconazole Yes fluconazol Univers 200 mg 8-24 e 200 mg ity of tablet 15:26: tablet [address] escitalopra Yes escitalopr Univers m oxalate 8-24 am 20 mg ity of 20 mg 15:26: tablet [address] doxylamine- Yes Diclegis [place] pyridoxine, 824 10 mg-10 ity of vit B6, 15:26: mg [place] 10-10 mg 51 tablet,del Medic al per tablet ayed Branch release TAKE 1 TABLET BY MOUTH THREE TIMES A DAY NEEDED AND 2 AT BEDTIME diphenoxyla Yes diphenoxyl Univers te-atropine 824 ate-atropi it y of 2.5-0.025 15:26: ne 2.5 [place] mg tablet 51 mg-0.025 Medica l mg tablet [place] dicyclomine Yes dicyclomin Univers 20 mg 8-24 e 20 mg ity of tablet 15:26: tablet [place] [address] TAKE 1 Medical TABLET BY Branch MOUTH EVERY 6 HOURS NEEDED clindamycin Yes clindamyci Univers 300 mg 8-24 n HCl 300 ity of capsule 15:26: mg capsule [place] 51 Take 1 Medical capsule 3 Branch times a day by oral route for 10 days. ciprofloxac Yes ciprofloxa Univers in HCl 500 8-24 monica 500 mg ity of mg tablet 15:26: tablet [address] chlorhexidi Yes chlorhexid Univers ne 0.12 % 8-24 ine ity of mouthwash 15:26: gluconate [place] 51 0.12 % Medical mouthwash Branch USE TWICE DAILY cephALEXin Yes cephalexin U nivers 500 mg 8-24 500 mg ity of capsule 15:26: capsule [address] busPIRone 5 Yes buspirone U nivers mg tablet 8-24 5 mg ity of 15:26: tablet [place] [address] Medical Branch azithromyci Yes azithromyc Univers n 250 mg 8-24 in 250 mg ity of tablet 15:26: tablet [place] [address] TAKE BY Medical MOUTH 2 Branch TABLETS TODAY THEN 1 TABLE DAILY FOR NEXT 4 DAYS ARIPiprazol Yes aripiprazo Univers e 5 mg 8-24 le 5 mg ity of tablet 15:26: tablet [address] Branch PNV 67-iron Yes Vitafol Uni vers ps-folate [...] of iron/folic 15:26: iron-1 mg [place] (PRENATA 51 tablet Medical RX ORAL) [place] iron-FA-dha Yes EnLyte 1.5 Univers -epa-FAD-NA 8-24 [...] 50 mg ity of tablet 15:26: tablet [address] Branch sulfamethox Yes sulfametho Univers azole-trime 8-24 xazole 800 it y of thoprim 15:26: mg-trimeth [place] 800-160 mg 51 oprim 160 Medi jose per tablet mg tablet Bran ch predniSONE Yes prednisone U nivers 20 mg 8-24 20 mg ity of tablet 15:26: tablet [address] prazosin 1 Yes prazosin 1 U nivers mg capsule 8-24 mg capsule ity of 15:26: [address] ondansetron Yes ondansetro Univers 4 mg tablet 8-24 n HCl 4 mg it y of 15:26: tablet [place] 51 TAKE 1 Medical TABLET BY Branch MOUTH EVERY 12 HOURS NEEDED ondansetron Yes ondansetro Univers 4 mg 8-24 n 4 mg ity of disintegrat 15:26: disintegra [place] ing tablet 51 ting Medical tablet [place] Nitrofurant Yes nitrofuran Univers oin&Nit. 8-24 toin ity of Macrocryst 15:26: monohydrat [place] 100 mg 51 e/macrocry Medical capsule stals 100 Branch mg capsule lurasidone Yes Latuda 20 Un [place] 20 mg 8-24 mg tablet ity of tablet 15:26: [address] Sodium Yes Denta 5000 Unive rs Fluoride, 8-24 Plus 1.1 % ity of Dental Gel, 15:26: cream USE [place] 1.1 % Crea 51 TWICE A Medica l DAY IN THE [place] MORNING AND AT NIGHT. DO NOT EAT OR DRINK FOR AT LEAST 30 MINS fluconazole Yes fluconazol Univers 200 mg 8-24 e 200 mg ity of tablet 15:26: tablet [address] escitalopra Yes escitalopr Univers m oxalate 8-24 am 20 mg ity of 20 mg 15:26: tablet [address] doxylamine- Yes Diclegis [place] pyridoxine, 8-24 [...] 20 mg ity of tablet 15:26: tablet [place] [address] TAKE 1 Medical TABLET BY Branch MOUTH EVERY 6 HOURS NEEDED clindamycin Yes clindamyci Univers 300 mg 8-24 n HCl 300 ity of capsule 15:26: mg capsule [place] 51 Take 1 Medical capsule 3 Branch times a day by oral route for 10 days. ciprofloxac Yes ciprofloxa Univers in HCl 500 8-24 [place] 500 mg ity of mg tablet 15:26: tablet [address] chlorhexidi Yes chlorhexid Univers ne 0.12 % 8-24 ine ity of mouthwash 15:26: gluconate [place] 51 0.12 % Medical mouthwash Branch USE TWICE DAILY cephALEXin Yes cephalexin U nivers 500 mg 8-24 500 mg ity of capsule 15:26: capsule [address] busPIRone 5 Yes buspirone U nivers mg tablet 8-24 5 mg ity of 15:26: tablet [address] azithromyci Yes azithromyc Univers n 250 mg 8-24 in 250 mg ity of tablet 15:26: tablet [place] [address] TAKE BY Medical MOUTH 2 Branch TABLETS TODAY THEN 1 TABLE DAILY FOR NEXT 4 DAYS ARIPiprazol Yes aripiprazo Univers e 5 mg 8-24 le 5 mg ity of tablet 15:26: tablet [address] PNV 67-iron Yes Vitafol Uni vers [...] [place] (PRENATABS 51 tablet Medical RX ORAL) [place] iron-FA-dha Yes EnLyte 1.5 Univers -epa-FAD-NA 8-24 [...] 50 mg ity of tablet 15:26: tablet [address] sulfamethox Yes sulfametho Univers azole-trime 8-24 xazole 800 it y of thoprim 15:26: mg-trimeth [place] 800-160 mg 51 oprim 160 Medi jose per tablet mg tablet Bran ch predniSONE Yes prednisone U nivers 20 mg 8-24 20 mg ity of tablet 15:26: tablet [address] prazosin 1 Yes prazosin 1 U nivers mg capsule 8-24 mg capsule ity of 15:26: [address] ondansetron Yes ondansetro Univers 4 mg tablet 8-24 n HCl 4 mg it y of 15:26: tablet [place] [address] TAKE 1 Medical TABLET BY Branch MOUTH EVERY 12 HOURS NEEDED ondansetron Yes ondansetro Univers 4 mg 8-24 n 4 mg ity of disintegrat 15:26: disintegra [facility] tablet 51 ting Medical tablet [place] Nitrofurant Yes nitrofuran Univers oin&Nit. 8-24 toin ity of Macrocryst 15:26: monohydrat [place] 100 mg 51 e/macrocry Medical capsule stals 100 Branch mg capsule lurasidone Yes Latuda 20 Un [place] 20 mg 8-24 mg tablet ity of tablet 15:26: [address] Sodium Yes Denta 5000 Unive rs Fluoride, 8-24 Plus 1.1 % ity of Dental Gel, 15:26: cream USE [place] 1.1 % Crea 51 TWICE A Medica l DAY IN THE Branch MORNING AND AT NIGHT. DO NOT EAT OR DRINK FOR AT LEAST 30 MINS fluconazole Yes fluconazol Univers 200 mg 8-24 e 200 mg ity of tablet 15:26: tablet [address] escitalopra Yes escitalopr Univers m oxalate 8-24 am 20 mg ity of 20 mg 15:26: tablet [place] [address] doxylamine- Yes Diclegis Un [place] pyridoxine, 8-24 10 mg-10 ity of vit B6, 15:26: mg [place] 10-10 mg 51 tablet,del Medic al per tablet ayed Branch release TAKE 1 TABLET BY MOUTH THREE TIMES A DAY NEEDED AND 2 AT BEDTIME diphenoxyla Yes diphenoxyl Univers te-atropine 824 ate-atropi it y of 2.5-0.025 15:26: ne 2.5 [place] mg tablet 51 mg-0.025 Medica l mg tablet [place] dicyclomine Yes dicyclomin Univers 20 mg 8-24 e 20 mg ity of tablet 15:26: tablet [place] [address] TAKE 1 Medical TABLET BY Branch MOUTH EVERY 6 HOURS NEEDED clindamycin Yes clindamyci Univers 300 mg 8-24 n HCl 300 ity [facility] capsule 15:26[facility] 3 Branch times a day by oral route for 10 days. ciprofloxac Yes ciprofloxa Univers in HCl 500 8-24 monica 500 mg ity of mg tablet 15:26: tablet [address] chlorhexidi Yes chlorhexid Univers ne 0.12 % 8-24 ine ity of mouthwash 15:26: gluconate [place] 51 0.12 % Medical mouthwash Branch USE TWICE DAILY cephALEXin Yes cephalexin U nivers 500 mg 8-24 500 mg ity of capsule 15:26: capsule [address] busPIRone 5 Yes buspirone U nivers mg tablet 8-24 5 mg ity of 15:26: tablet [address] Branch azithromyci Yes azithromyc Univers n 250 mg 8-24 in 250 mg ity of tablet 15:26: tablet [place] [address] TAKE BY Medical MOUTH 2 Branch TABLETS TODAY THEN 1 TABLE DAILY FOR NEXT 4 DAYS ARIPiprazol Yes aripiprazo Univers e 5 mg 8-24 le 5 mg ity of tablet 15:26: tablet [address] Branch PNV 67-iron Yes Vitafol Uni vers ps-folate [...] [place] (PRENATABS 51 tablet Medical RX ORAL) [place] iron-FA-dha Yes EnLyte 1.5 Univers -epa-FAD-NA 8-24 [...] 50 mg ity of tablet 15:26: tablet [address] sulfamethox Yes sulfametho Univers azole-trime 8-24 xazole 800 it y of thoprim 15:26: mg-trimeth [place] 800-160 mg 51 oprim 160 Medi jose per tablet mg tablet Bran ch predniSONE Yes prednisone U nivers 20 mg 8-24 20 mg ity of tablet 15:26: tablet [address] prazosin 1 Yes prazosin 1 U nivers mg capsule 8-24 mg capsule ity of 15:26: [address] ondansetron Yes ondansetro Univers 4 mg tablet 8-24 n HCl 4 mg it y of 15:26: tablet [place] 51 TAKE 1 Medical TABLET BY Branch MOUTH EVERY 12 HOURS NEEDED ondansetron Yes ondansetro Univers 4 mg 8-24 n 4 mg ity of disintegrat 15:26: disintegra [place] ing tablet 51 ting Medical tablet [place] Nitrofurant Yes nitrofuran Univers oin&Nit. 8-24 toin ity of Macrocryst 15:26: monohydrat [place] 100 mg 51 e/macrocry Medical capsule stals 100 Branch mg capsule lurasidone Yes Latuda 20 Un [place] 20 mg 8-24 mg tablet ity of tablet 15:26: [address] Sodium Yes Denta 5000 Unive rs Fluoride, 8-24 Plus 1.1 % ity of Dental Gel, 15:26: cream USE [place] 1.1 % Crea 51 TWICE A Medica l DAY IN THE [place] MORNING AND AT NIGHT. DO NOT EAT OR DRINK FOR AT LEAST 30 MINS fluconazole Yes fluconazol Univers 200 mg 8-24 e 200 mg ity of tablet 15:26: tablet [address] escitalopra Yes escitalopr Univers m oxalate 8-24 am 20 mg ity of 20 mg 15:26: tablet [place] [address] doxylamine- Yes Diclegis Un [place] pyridoxine, 8-24 [...] 20 mg ity of tablet 15:26: tablet [place] [address] TAKE 1 Medical TABLET BY Branch MOUTH EVERY 6 HOURS NEEDED clindamycin Yes clindamyci Univers 300 mg 8-24 n HCl 300 ity of capsule 15:26: mg capsule [place] 51 Take 1 Medical capsule 3 Branch times a day by oral route for 10 days. ciprofloxac Yes ciprofloxa Univers in HCl 500 8-24 monica 500 mg ity of mg tablet 15:26: tablet [address] chlorhexidi Yes chlorhexid Univers ne 0.12 % 8-24 ine ity of mouthwash 15:26: gluconate [place] 51 0.12 % Medical mouthwash Branch USE TWICE DAILY cephALEXin Yes cephalexin U nivers 500 mg 8-24 500 mg ity of capsule 15:26: capsule [address] busPIRone 5 Yes buspirone U nivers mg tablet 8-24 5 mg ity of 15:26: tablet [address] azithromyci Yes azithromyc Univers n 250 mg 8-24 in 250 mg ity of tablet 15:26: tablet [place] [address] TAKE BY Medical MOUTH 2 Branch TABLETS TODAY THEN 1 TABLE DAILY FOR NEXT 4 DAYS ARIPiprazol Yes aripiprazo Univers e 5 mg 8-24 le 5 mg ity of tablet 15:26: tablet [address] PNV 67-iron Yes Vitafol Uni vers [...] [place] (PRENATABS 51 tablet Medical RX ORAL) [place] iron-FA-dha Yes EnLyte 1.5 Univers -epa-FAD-NA 8-24 [...] 50 mg ity of tablet 15:26: tablet [address] sulfamethox Yes sulfametho [facility] azole-trime 8-24 xazole 800 it y of thoprim 15:26: mg-trimeth [place] 800-160 mg 51 oprim 160 Medi jose per tablet mg tablet Bran ch predniSONE Yes prednisone U nivers 20 mg 8-24 20 mg ity of tablet 15:26: tablet [address] prazosin 1 Yes prazosin 1 U nivers mg capsule 8-24 mg capsule ity of 15:26: [address] ondansetron Yes ondansetro Univers 4 mg tablet 8-24 n HCl 4 mg it y of 15:26: tablet [place] [address] TAKE 1 Medical TABLET BY Branch MOUTH EVERY 12 HOURS NEEDED ondansetron Yes ondansetro Univers 4 mg 8-24 n 4 mg ity of disintegrat 15:26: disintegra [facility] tablet 51 ting Medical tablet [place] Nitrofurant Yes nitrofuran Univers oin&Nit. 8-24 toin ity of Macrocryst 15:26: monohydrat [place] 100 mg 51 e/macrocry Medical capsule stals 100 Branch mg capsule lurasidone Yes Latuda 20 Un albetro 20 mg 8-24 mg tablet ity of tablet 15:26: [address] Sodium Yes Denta 5000 Unive rs Fluoride, 8-24 Plus 1.1 % ity of Dental Gel, 15:26: cream USE [place] 1.1 % Crea 51 TWICE A Medica l DAY IN THE Branch MORNING AND AT NIGHT. DO NOT EAT OR DRINK FOR AT LEAST 30 MINS fluconazole Yes fluconazol Univers 200 mg 8-24 e 200 mg ity of tablet 15:26: tablet [address] escitalopra Yes escitalopr Univers m oxalate 8-24 am 20 mg ity of 20 mg 15:26: tablet [place] tablet 51 [facility] doxylamine- Yes Diclegis Un [place] pyridoxine, 824 10 mg-10 ity of vit B6, 15:26: mg [place] 10-10 mg 51 tablet,del Medic al per tablet ayed Branch release TAKE 1 TABLET BY MOUTH THREE TIMES A DAY NEEDED AND 2 AT BEDTIME diphenoxyla Yes diphenoxyl Univers te-atropine 824 ate-atropi it y of 2.5-0.025 15:26: ne 2.5 [place] mg tablet 51 mg-0.025 Medica l mg tablet [place] dicyclomine Yes dicyclomin Univers 20 mg 8-24 e 20 mg ity of tablet 15:26: tablet [place] [address] TAKE 1 Medical TABLET BY Branch MOUTH EVERY 6 HOURS NEEDED clindamycin Yes clindamyci Univers 300 mg 8-24 n HCl 300 ity of capsule 15:26: mg capsule [place] 51 Take 1 Medical capsule 3 Branch times a day by oral route for 10 days. ciprofloxac Yes ciprofloxa Univers in HCl 500 8-24 monica 500 mg ity of mg tablet 15:26: tablet [address] chlorhexidi Yes chlorhexid Univers ne 0.12 % 8-24 ine ity of mouthwash 15:26: gluconate [place] 51 0.12 % Medical mouthwash Branch USE TWICE DAILY cephALEXin Yes cephalexin U nivers 500 mg 8-24 500 mg ity of capsule 15:26: capsule [address] busPIRone 5 Yes buspirone U nivers mg tablet 8-24 5 mg ity of 15:26: tablet [address] Branch azithromyci Yes azithromyc Univers n 250 mg 8-24 in 250 mg ity of tablet 15:26: tablet [place] [address] TAKE BY Medical MOUTH 2 Branch TABLETS TODAY THEN 1 TABLE DAILY FOR NEXT 4 DAYS ARIPiprazol Yes aripiprazo Univers e 5 mg 8-24 le 5 mg ity of tablet 15:26: tablet [address] Branch PNV 67-iron Yes Vitafol Uni vers ps-folate [...] [place] (PRENATABS 51 tablet Medical RX ORAL) [place] iron-FA-dha Yes EnLyte 1.5 Univers -epa-FAD-NA 8-24 [...] 50 mg ity of tablet 15:26: tablet [address] sulfamethox Yes sulfametho Univers azole-trime 8-24 xazole 800 it y of thoprim 15:26: mg-trimeth [place] 800-160 mg 51 oprim 160 Medi jose per tablet mg tablet Bran ch predniSONE Yes prednisone U nivers 20 mg 8-24 20 mg ity of tablet 15:26: tablet [address] prazosin 1 Yes prazosin 1 U nivers mg capsule 8-24 mg capsule ity of 15:26: [address] ondansetron Yes ondansetro Univers 4 mg tablet 8-24 n HCl 4 mg it y of 15:26: tablet [place] 51 TAKE 1 Medical TABLET BY Branch MOUTH EVERY 12 HOURS NEEDED ondansetron Yes ondansetro Univers 4 mg 8-24 n 4 mg ity of disintegrat 15:26: disintegra [place] ing tablet 51 ting Medical tablet [place] Nitrofurant Yes nitrofuran Univers oin&Nit. 8-24 toin ity of Macrocryst 15:26: monohydrat [place] 100 mg 51 e/macrocry Medical capsule stals 100 Branch mg capsule lurasidone Yes Latuda 20 Un [place] 20 mg 8-24 mg tablet ity of tablet 15:26: [address] Sodium Yes Denta 5000 Unive rs Fluoride, 8-24 Plus 1.1 % ity of Dental Gel, 15:26: cream USE [place] 1.1 % Crea 51 TWICE A Medica l DAY IN THE [place] MORNING AND AT NIGHT. DO NOT EAT OR DRINK FOR AT LEAST 30 MINS fluconazole Yes fluconazol Univers 200 mg 8-24 e 200 mg ity of tablet 15:26: tablet [address] escitalopra Yes escitalopr Univers m oxalate 8-24 am 20 mg ity of 20 mg 15:26: tablet [place] tablet [address] [place] [address] doxylamine- Yes Diclegis Un alber[place] pyridoxine, 8-24 [...] 20 mg ity of tablet 15:26: tablet [place] [address] TAKE 1 Medical TABLET BY Branch MOUTH EVERY 6 HOURS NEEDED clindamycin Yes clindamyci Univers 300 mg 8-24 n HCl 300 ity of capsule 15:26: mg capsule [place] 51 Take 1 Medical capsule 3 Branch times a day by oral route for 10 days. ciprofloxac Yes ciprofloxa Univers in HCl 500 8-24 monica 500 mg ity of mg tablet 15:26: tablet [address] chlorhexidi Yes chlorhexid Univers ne 0.12 % 8-24 ine ity of mouthwash 15:26: gluconate [place] 51 0.12 % Medical mouthwash Branch USE TWICE DAILY cephALEXin Yes cephalexin U nivers 500 mg 8-24 500 mg ity of capsule 15:26: capsule [address] busPIRone 5 Yes buspirone U nivers mg tablet 8-24 5 mg ity of 15:26: tablet [address] azithromyci Yes azithromyc Univers n 250 mg 8-24 in 250 mg ity of tablet 15:26: tablet [place] [address] TAKE BY Medical MOUTH 2 Branch TABLETS TODAY THEN 1 TABLE DAILY FOR NEXT 4 DAYS ARIPiprazol Yes aripiprazo Univers e 5 mg 8-24 le 5 mg ity of tablet 15:26: tablet [address] PNV 67-iron Yes Vitafol Uni vers [...] [place] (PRENATABS 51 tablet Medical RX ORAL) [place] iron-FA-dha Yes EnLyte 1.5 Univers -epa-FAD-NA 8-24 [...] 50 mg ity of tablet 15:26: tablet [address] sulfamethox Yes sulfametho Univers azole-trime 8-24 xazole 800 it y of thoprim 15:26: mg-trimeth [place] 800-160 mg 51 oprim 160 Medi jose per tablet mg tablet Bran ch predniSONE Yes prednisone U nivers 20 mg 8-24 20 mg ity of tablet 15:26: tablet [address] prazosin 1 Yes prazosin 1 U nivers mg capsule 8-24 mg capsule ity of 15:26: [address] ondansetron Yes ondansetro Univers 4 mg tablet 8-24 n HCl 4 mg it y of 15:26: tablet [place] [address] TAKE 1 Medical TABLET BY Branch MOUTH EVERY 12 HOURS NEEDED ondansetron Yes ondansetro Univers 4 mg 8-24 n 4 mg ity of disintegrat 15:26: disintegra [facility] tablet 51 ting Medical tablet [place] Nitrofurant Yes nitrofuran Univers oin&Nit. 8-24 toin ity of Macrocryst 15:26: monohydrat [place] 100 mg 51 e/macrocry Medical capsule stals 100 Branch mg capsule lurasidone Yes Latuda 20 Un [place] 20 mg 8-24 mg tablet ity of tablet 15:26: [address] Sodium Yes Denta 5000 Unive rs Fluoride, 8-24 Plus 1.1 % ity of Dental Gel, 15:26: cream USE [place] 1.1 % Crea 51 TWICE A Medica l DAY IN THE Branch MORNING AND AT NIGHT. DO NOT EAT OR DRINK FOR AT LEAST 30 MINS fluconazole Yes fluconazol Univers 200 mg 8-24 e 200 mg ity of tablet 15:26: tablet [address] escitalopra Yes escitalopr Univers m oxalate 8-24 am 20 mg ity of 20 mg 15:26: tablet [place] tablet [address] [place] [address] doxylamine- Yes Diclegis Un [place] pyridoxine, 824 10 mg-10 ity of vit B6, 15:26: mg [place] 10-10 mg 51 tablet,del Medic al per tablet ayed [place] release TAKE 1 TABLET BY MOUTH THREE TIMES A DAY NEEDED AND 2 AT BEDTIME diphenoxyla Yes diphenoxyl Univers te-atropine 824 ate-atropi it y of 2.5-0.025 15:26: ne 2.5 [place] mg tablet 51 mg-0.025 Medica l mg tablet [place] dicyclomine Yes dicyclomin Univers 20 mg 8-24 e 20 mg ity of tablet 15:26: tablet [place] [address] TAKE 1 Medical TABLET BY [place] MOUTH EVERY 6 HOURS NEEDED clindamycin Yes clindamyci Univers 300 mg 8-24 n HCl 300 ity of capsule 15:26: mg capsule [facility] 51 Take 1 Medical capsule 3 Branch times a day by oral route for 10 days. ciprofloxac Yes ciprofloxa Univers in HCl 500 8-24 monica 500 mg ity of mg tablet 15:26: tablet [address] chlorhexidi Yes chlorhexid Univers ne 0.12 % 8-24 ine ity of mouthwash 15:26: gluconate [place] [address] 0.12 % Medical mouthwash [place] USE TWICE DAILY cephALEXin Yes cephalexin U nivers 500 mg 8-24 500 mg ity of capsule 15:26: capsule [address] busPIRone 5 Yes buspirone U nivers mg tablet 824 5 mg ity of 15:26: tablet [place] 51 Medical Branch azithromyci Yes azithromyc Univers n 250 mg 8-24 in 250 mg ity of tablet 15:26: tablet [place] [address] TAKE BY Medical MOUTH 2 Branch TABLETS TODAY THEN 1 TABLE DAILY FOR NEXT 4 DAYS ARIPiprazol Yes aripiprazo Univers e 5 mg 8-24 le 5 mg ity of tablet 15:26: tablet [place] [address] Medical Branch PNV 67-iron Yes Vitafol Uni vers ps-folate [...] 50 mg ity of tablet 15:26: tablet [place] [address] Medical Branch SUMAtriptan Yes sumatripta Univers 50 mg 8-24 n 50 mg ity of tablet 15:26: tablet [address] SUMAtriptan Yes sumatripta Univers 50 mg 8-24 n 50 mg ity of tablet 15:26: tablet [address] SUMAtriptan 2021-0 Yes sumatripta Univers 50 mg 8-24 n 50 mg ity of tablet 15:26: tablet [address] SUMAtriptan 2021-0 Yes sumatripta Univers 50 mg 8-24 n 50 mg ity of tablet 15:26: tablet [address] SUMAtriptan 2021-0 Yes sumatripta Univers 50 mg 8-24 n 50 mg ity of tablet 15:26: tablet [address] QUEtiapine 2021-0 Yes Univers 100 mg 4-26 ity of tablet 00:00: [address] FLUoxetine 2021-0 Yes Univers 40 mg 4-26 ity of capsule 00:00: [address] QUEtiapine 2021-0 Yes Univers 100 mg 4-26 ity of tablet 00:00: [address] FLUoxetine 2021-0 Yes Univers 40 mg 4-26 ity of capsule 00:00: [address] QUEtiapine 2021-0 Yes Univers 100 mg 4-26 ity of tablet 00:00: [address] FLUoxetine 2021-0 Yes Univers 40 mg 4-26 ity of capsule 00:00: [address] QUEtiapine 2021-0 Yes Univers 100 mg 4-26 ity of tablet 00:00: [address] FLUoxetine 2021-0 Yes Univers 40 mg 4-26 ity of capsule 00:00: [address] QUEtiapine 2022-0 Yes Univers 100 mg 4-26 ity of tablet 00:00: [address] FLUoxetine 2-0 Yes Univers 40 mg 4-26 ity of capsule 00:00: [address] QUEtiapine 2-0 Yes Univers 100 mg 4-26 ity of tablet 00:00: [address] FLUoxetine 2-0 Yes Univers 40 mg 4-26 ity of capsule 00:00: [address] QUEtiapine 2022-0 Yes Univers 100 mg 4-26 ity of tablet 00:00: [address] FLUoxetine 2021-0 Yes Univers 40 mg 4-26 ity of capsule 00:00: [address] QUEtiapine 202-0 Yes Univers 100 mg 4-26 ity of tablet 00:00: [place] 00 Medical Branch FLUoxetine 2022-0 Yes Univers 40 mg 4-26 ity of capsule 00:00: [place] [facility] QUEtiapine 2022-0 Yes Univers 100 mg 4-26 ity of tablet 00:00: [place] [facility] FLUoxetine 2-0 Yes Univers 40 mg 4-26 ity of capsule 00:00: [place] [facility] QUEtiapine 2022-0 Yes Univers 100 mg 4-26 ity of tablet 00:00: [place] [facility] FLUoxetine 2-0 Yes Univers 40 mg 4-26 ity of capsule 00:00: [place] [facility] QUEtiapine 2022-0 Yes Univers 100 mg 4-26 ity of tablet 00:00: [place] [address] Medical Branch FLUoxetine 2-0 Yes Univers 40 mg 4-26 ity of capsule 00:00: [place] [facility] QUEtiapine 2-0 Yes Univers 100 mg 4-26 ity of tablet 00:00: [address] Branch FLUoxetine 2-0 Yes Univers 40 mg 4-26 ity of capsule 00:00: [address] Branch QUEtiapine 2022-0 Yes Univers 100 mg 4-26 ity of tablet 00:00: [place] [address] Medical Branch FLUoxetine 2-0 Yes Univers 40 mg 4-26 ity of capsule 00:00: [address] QUEtiapine 2022-0 Yes Univers 100 mg 4-26 ity of tablet 00:00: [address] Branch FLUoxetine 2-0 Yes Univers 40 mg 4-26 ity of capsule 00:00: [address] Branch QUEtiapine 2022-0 Yes Univers 100 mg 4-26 ity of tablet 00:00: [place] [facility] Branch FLUoxetine 2022-0 Yes Univers 40 mg 4-26 ity of capsule 00:00: [place] [facility] QUEtiapine 2022-0 Yes Univers 100 mg 4-26 ity of tablet 00:00: [place] [address] Medical Branch FLUoxetine 2022-0 Yes Univers 40 mg 4-26 ity of capsule 00:00: [place] [facility] Branch QUEtiapine 2022-0 Yes Univers 100 mg 4-26 ity of tablet 00:00: [place] [address] Medical Branch FLUoxetine 2022-0 Yes Univers 40 mg 4-26 ity of capsule 00:00: [address] Branch QUEtiapine 2022-0 Yes Univers 100 mg 4-26 ity of tablet 00:00: [address] FLUoxetine 2022-0 Yes Univers 40 mg 4-26 ity of capsule 00:00: [facility] cetirizine 2021-0 Yes 10mg Take 10 mg U nivers 10 mg 4-18 by mouth ity of tablet 00:00: daily. [place] [facility] cetirizine 2021-0 Yes 10mg Take 10 mg U nivers 10 mg 4-18 by mouth ity of tablet 00:00: daily. [place] [facility] cetirizine 2021-0 Yes 10mg Take 10 mg U nivers 10 mg 4-18 by mouth ity of tablet 00:00: daily. [place] [facility] cetirizine 2021-0 Yes 10mg Take 10 mg U nivers 10 mg 4-18 by mouth ity of tablet 00:00: daily. [place] [facility] cetirizine 2021-0 Yes 10mg Take 10 mg U nivers 10 mg 4-18 by mouth ity of tablet 00:00: daily. [place] [facility] cetirizine 2021-0 Yes 10mg Take 10 mg U nivers 10 mg 4-18 by mouth ity of tablet 00:00: daily. [place] [facility] cetirizine 2021-0 Yes 10mg Take 10 mg U nivers 10 mg 4-18 by mouth ity of tablet 00:00: daily. [place] [facility] cetirizine 2021-0 Yes 10mg Take 10 mg U nivers 10 mg 4-18 by mouth ity of tablet 00:00: daily. [place] [facility] cetirizine 2021-0 Yes 10mg Take 10 mg U nivers 10 mg 4-18 by mouth ity of tablet 00:00: daily. [place] [facility] cetirizine 2021-0 Yes 10mg Take 10 mg U nivers 10 mg 4-18 by mouth ity of tablet 00:00: daily. [place] [facility] cetirizine 2021-0 Yes 10mg Take 10 mg U nivers 10 mg 4-18 by mouth ity of tablet 00:00: daily. [place] [facility] cetirizine 2021-0 Yes 10mg Take 10 mg U nivers 10 mg 4-18 by mouth ity of tablet 00:00: daily. [place] [facility] cetirizine 2021-0 Yes 10mg Take 10 mg U nivers 10 mg 4-18 by mouth ity of tablet 00:00: daily. [place] [facility] cetirizine 0 Yes 10mg Take 10 mg U nivers 10 mg 4-18 by mouth ity of tablet 00:00: daily. [place] [facility] cetirizine 0 Yes 10mg Take 10 mg U nivers 10 mg 4-18 by mouth ity of tablet 00:00: daily. [place] [facility] cetirizine 0 Yes 10mg Take 10 mg U nivers 10 mg 4-18 by mouth ity of tablet 00:00: daily. [place] [facility] cetirizine 0 Yes 10mg Take 10 mg U nivers 10 mg 4-18 by mouth ity of tablet 00:00: daily. [place] [facility] cetirizine Yes 10mg Take 10 mg U nivers 10 mg 4-18 by mouth ity of tablet 00:00: daily. [place] [facility] albuterol 2020-11 Yes 2{puff} Inhale 2 U [...] 20 mg ity of capsule 16:22: capsule [place] 14 TAKE 1 Medical CAPSULE BY Branch [...] 20 mg ity of capsule 16:22: capsule [place] 14 TAKE 1 Medical CAPSULE BY Branch MOUTH EVERY DAY FLUoxetine 2020-11 Yes fluoxetine U nivers 20 mg 1-02 20 mg ity of capsule 16:22: capsule [place] 14 TAKE 1 Medical CAPSULE BY Branch MOUTH EVERY DAY FLUoxetine 2020-11 Yes fluoxetine U nivers 20 mg 1-02 20 mg ity of capsule 16:22: capsule [place] 14 TAKE 1 Medical CAPSULE BY Branch MOUTH EVERY DAY FLUoxetine 2020-11 Yes fluoxetine U nivers 20 mg 1-02 20 mg ity of capsule 16:22: capsule [place] 14 TAKE 1 Medical CAPSULE BY Branch MOUTH EVERY DAY FLUoxetine 2020-11 Yes fluoxetine U nivers 20 mg 1-02 20 mg ity of capsule 16:22: capsule [place] 14 TAKE 1 Medical CAPSULE BY Branch MOUTH EVERY DAY FLUoxetine 2020-11 Yes fluoxetine U nivers 20 mg 1-02 20 mg ity of capsule 16:22: capsule [place] 14 TAKE 1 Medical CAPSULE BY Branch MOUTH EVERY DAY docusate 2020-11 Yes [id number] 240mg Take 1 U nivers calcium 240 1-02 capsule by it y of mg capsule 00:00: mouth once [place] 00 daily as Medical needed for Branch Constipati on. ferrous 2020-11 Yes [id number] 325mg Take 1 Un alberto sulfate 325 1-02 tablet by ity of mg (65 mg 00:00: mouth 2 [place] iron) 00 (two) Medical tablet times Branch daily. docusate 2020-11 Yes [id number] 240mg Take 1 U nivers calcium 240 1-02 capsule by it y of mg capsule 00:00: mouth once [place] 00 daily as Medical needed for Branch Constipati on. ferrous 2020-11 Yes [id number] 325mg Take 1 Un [place] sulfate 325 1-02 tablet by ity of mg (65 mg 00:00: mouth 2 [place] iron) 00 (two) Medical tablet times Branch daily. docusate 2020-11 Yes [id number] 240mg Take 1 U nivers calcium 240 1-02 capsule by it y of mg capsule 00:00: mouth once [place] 00 daily as Medical needed for Branch Constipati on. ferrous 2020-11 Yes [id number] 325mg Take 1 Un [place] sulfate 325 1-02 tablet by ity of mg (65 mg 00:00: mouth 2 [place] iron) 00 (two) Medical tablet times Branch daily. docusate 2020-11 Yes [id number] 240mg Take 1 U nivers calcium 240 1-02 capsule by it y of mg capsule 00:00: mouth once [place] 00 daily as Medical needed for Branch Constipati on. ferrous 2020-11 Yes [id number] 325mg Take 1 Un [place] sulfate 325 1-02 tablet by ity of mg (65 mg 00:00: mouth 2 [place] iron) 00 (two) Medical tablet times Branch daily. docusate 2020-11 Yes [id number] 240mg Take 1 U nivers calcium 240 1-02 capsule by it y of mg capsule 00:00: mouth once [place] 00 daily as Medical needed for Branch Constipati on. ferrous 2020-11 Yes [id number] 325mg Take 1 Un [place]ber[place] sulfate 325 1-02 tablet by ity of mg (65 mg 00:00: mouth 2 [place] iron) 00 (two) Medical tablet times Branch daily. docusate 2020-11 Yes [id number] 240mg Take 1 U nivers calcium 240 1-02 capsule by it y of mg capsule 00:00: mouth once [place] 00 daily as Medical needed for Branch Constipati on. ferrous 2020-11 Yes [id number] 325mg Take 1 Un [place]berto sulfate 325 1-02 tablet by ity of mg (65 mg 00:00: mouth 2 [place] iron) 00 (two) Medical tablet times Branch daily. docusate 2020-11 Yes [id number] 240mg Take 1 U nivers calcium 240 1-02 capsule by it y of mg capsule 00:00: mouth once [place] 00 daily as Medical needed for Branch Constipati on. ferrous 2020-11 Yes [id number] 325mg Take 1 Un [place]ber[place] sulfate 325 1-02 tablet by ity of mg (65 mg 00:00: mouth 2 [place] iron) 00 (two) Medical tablet times Branch daily. docusate 2020-11 Yes [id number] 240mg Take 1 U nivers calcium 240 1-02 capsule by it y of mg capsule 00:00: mouth once [place] 00 daily as Medical needed for Branch Constipati on. ferrous 2020-11 Yes [id number] 325mg Take 1 Un [place]berto sulfate 325 1-02 tablet by ity of mg (65 mg 00:00: mouth 2 [place] iron) 00 (two) Medical tablet times Branch daily. docusate 2020-11 Yes [id number] 240mg Take 1 U nivers calcium 240 1-02 capsule by it y of mg capsule 00:00: mouth once [place] 00 daily as Medical needed for Branch Constipati on. ferrous 2020-11 Yes [id number] 325mg Take 1 Un [place]berto sulfate 325 1-02 tablet by ity of mg (65 mg 00:00: mouth 2 [place] iron) 00 (two) Medical tablet times Branch daily. docusate 2020-11 Yes [id number] 240mg Take 1 U nivers calcium 240 1-02 capsule by it y of mg capsule 00:00: mouth once [place] 00 daily as Medical needed for Branch Constipati on. ferrous 2020-11 Yes [id number] 325mg Take 1 Un [place]berto sulfate 325 1-02 tablet by ity of mg (65 mg 00:00: mouth 2 [place] iron) 00 (two) Medical tablet times Branch daily. docusate 2020-11 Yes [id number] 240mg Take 1 U nivers calcium 240 1-02 capsule by it y of mg capsule 00:00: mouth once [place] 00 daily as Medical needed for Branch Constipati on. ferrous 2020-11 Yes [id number] 325mg Take 1 Un alberto sulfate 325 1-02 tablet by ity of mg (65 mg 00:00: mouth 2 [place] iron) 00 (two) Medical tablet times Branch daily. docusate 2020-11 Yes [id number] 240mg Take 1 U nivers calcium 240 1-02 capsule by it y of mg capsule 00:00: mouth once [place] 00 daily as Medical needed for Branch Constipati on. ferrous 2020-11 Yes [id number] 325mg Take 1 Un [place]berto sulfate 325 1-02 tablet by ity of mg (65 mg 00:00: mouth 2 [place] iron) 00 (two) Medical tablet times Branch daily. docusate 2020-11 Yes [id number] 240mg Take 1 U nivers calcium 240 1-02 capsule by it y of mg capsule 00:00: mouth once [place] 00 daily as Medical needed for Branch Constipati on. ferrous 2020-11 Yes [id number] 325mg Take 1 Un alberto sulfate 325 1-02 tablet by ity of mg (65 mg 00:00: mouth 2 [place] iron) 00 (two) Medical tablet times Branch daily. docusate 2020-11 Yes [id number] 240mg Take 1 U nivers calcium 240 1-02 capsule by it y of mg capsule 00:00: mouth once [place] 00 daily as Medical needed for Branch Constipati on. ferrous 2020-11 Yes [id number] 325mg Take 1 Un alberto sulfate 325 1-02 tablet by ity of mg (65 mg 00:00: mouth 2 [place] iron) 00 (two) Medical tablet times Branch daily. docusate 2020-11 Yes [id number] 240mg Take 1 U nivers calcium 240 1-02 capsule by it y of mg capsule 00:00: mouth once [place] 00 daily as Medical needed for Branch Constipati on. ferrous 2020-11 Yes [id number] 325mg Take 1 Un alberto sulfate 325 1-02 tablet by ity of mg (65 mg 00:00: mouth 2 [place] iron) 00 (two) Medical tablet times Branch daily. docusate 2020-11 Yes [id number] 240mg Take 1 U nivers calcium 240 1-02 capsule by it y of mg capsule 00:00: mouth once [place] 00 daily as Medical needed for Branch Constipati on. ferrous 2020-11 Yes [id number] 325mg Take 1 Un alberto sulfate 325 1-02 tablet by ity of mg (65 mg 00:00: mouth 2 [place] iron) 00 (two) Medical tablet times Branch daily. docusate 2020-11 Yes [id number] 240mg Take 1 U nivers calcium 240 1-02 capsule by it y of mg capsule 00:00: mouth once [place] 00 daily as Medical needed for Branch Constipati on. ferrous 2020-11 Yes [id number] 325mg Take 1 Un alberto sulfate 325 1-02 tablet by ity of mg (65 mg 00:00: mouth 2 [place] iron) 00 (two) Medical tablet times [place] daily. docusate 2020-11 Yes [id number] 240mg Take 1 U nivers calcium 240 1-02 capsule by it y of mg capsule 00:00: mouth once [place] 00 daily as Medical needed for Branch Constipati on. ferrous 2020-11 Yes [id number] 325mg Take 1 Un alberto sulfate 325 1-02 tablet by ity of mg (65 mg 00:00: mouth 2 [place] iron) 00 (two) Medical tablet times [place] daily. QUEtiapine 2018-11 Yes 50mg Take 50 mg U nivers 50 mg 1-25 by mouth ity of tablet 00:00: daily. [address] QUEtiapine 2018-11 Yes 50mg Take 50 mg U nivers 50 mg 1-25 by mouth ity of tablet 00:00: daily. [address] QUEtiapine 2018-11 Yes 50mg Take 50 mg U nivers 50 mg 1-25 by mouth ity of tablet 00:00: daily. [address] QUEtiapine 2018-11 Yes 50mg Take 50 mg U nivers 50 mg 1-25 by mouth ity of tablet 00:00: daily. [address] QUEtiapine 2018-11 Yes 50mg Take 50 mg U nivers 50 mg 1-25 by mouth ity of tablet 00:00: daily. [address] QUEtiapine 2018-11 Yes 50mg Take 50 mg U nivers 50 mg 1-25 by mouth ity of tablet 00:00: daily. [address] QUEtiapine 2018-11 Yes 50mg Take 50 mg U nivers 50 mg 1-25 by mouth ity of tablet 00:00: daily. [address] QUEtiapine 2018-11 Yes 50mg Take 50 mg U nivers 50 mg 1-25 by mouth ity of tablet 00:00: daily. [address] QUEtiapine 2018-11 Yes 50mg Take 50 mg U nivers 50 mg 1-25 by mouth ity of tablet 00:00: daily. [address] QUEtiapine 2018-11 Yes 50mg Take 50 mg U nivers 50 mg 1-25 by mouth ity of tablet 00:00: daily. [place] [facility] Branch QUEtiapine 2018-11 Yes 50mg Take 50 mg U nivers 50 mg 1-25 by mouth ity of tablet 00:00: daily. [place] [facility] Branch QUEtiapine 2018-11 Yes 50mg Take 50 mg U nivers 50 mg 1-25 by mouth ity of tablet 00:00: daily. [place] [facility] Branch QUEtiapine 2018-11 Yes 50mg Take 50 mg U nivers 50 mg 1-25 by mouth ity of tablet 00:00: daily. [place] [facility] Branch QUEtiapine 2018-11 Yes 50mg Take 1 Unive rs 50 mg 1-25 tablet by ity of tablet 00:00: mouth in [place] the morning. Branch QUEtiapine 2018-11 Yes 50mg Take 1 Unive rs 50 mg 1-25 tablet by ity of tablet 00:00: mouth in [place] the morning. Branch QUEtiapine 2018-11 Yes 50mg Take 1 Unive rs 50 mg 1-25 tablet by ity of tablet 00:00: mouth in [place] the morning. Branch QUEtiapine 2018-11 Yes 50mg Take 1 Unive rs 50 mg 1-25 tablet by ity of tablet 00:00: mouth in [place] the morning. Branch QUEtiapine 2018-11 Yes 50mg Take 1 Unive rs 50 mg 1-25 tablet by ity of tablet 00:00: mouth in [place] the morning. Branch Immunizations Ordered Immunization Filled Date Status Comments Sour ce Name Immunization Name Influenza Virus 2021-09-06 Completed [facility] Vaccine Quad IM, 00:00:00 [place] [facility] Preserv and ABX Free Bran ch 6 MO-64 YRS Influenza Virus 2021-09-06 Completed [facility] Vaccine Quad IM, 00:00:00 [place] [facility] Preserv and ABX Free Bran ch 6 MO-64 YRS Influenza Virus 2021-09-06 Completed [facility] of Vaccine Quad IM, 00:00:00 [place] [facility] Preserv and ABX Free Bran ch 6 MO-64 YRS Influenza Virus 2021-09-06 Completed [facility] of Vaccine Quad IM, 00:00:00 [place] [facility] Preserv and ABX Free Bran [...] YRS TDAP 2021-07-17 Completed [facility] 00:00:00 [facility] 2021-07-17 Completed [facility] of 00:00:00 [facility] TD 2021-07-17 Completed University of 00:00:00 [facility] TD 2021-07-17 Completed [facility] of 00:00:00 [facility] 2021-07-17 Completed [facility] of 00:00:00 [facility] 2021-07-17 Completed [facility] of 00:00:00 [facility] 2021-07-17 Completed [facility] of 00:00:00 [facility] 2021-07-17 Completed [facility] of 00:00:00 [facility] 2021-07-17 Completed [facility] of 00:00:00 [facility] 2021-07-17 Completed [facility] of 00:00:00 [facility] 2021-07-17 Completed [facility] of 00:00:00 [facility] 2021-07-17 Completed [facility] of 00:00:00 [facility] 2021-07-17 Completed [facility] of 00:00:00 [facility] 2021-07-17 Completed [facility] of 00:00:00 [facility] 2021-07-17 Completed [facility] of 00:00:00 [facility] 2021-07-17 Completed [facility] of 00:00:00 [facility] 2021-07-17 Completed University of 00:00:00 [facility] Rho (d) Immune 2021-05-29 Completed University of Globulin 00:00:00 [facility] Rho (d) Immune 2021-05-29 Completed University of Globulin 00:00:00 [facility] Rho (d) Immune 2021-05-29 Completed University of Globulin 00:00:00 [facility] Rho (d) Immune 2021-05-29 Completed University of Globulin 00:00:00 [facility] Rho (d) Immune 2021-05-29 Completed University of Globulin 00:00:00 [facility] Rho (d) Immune 2021-05-29 Completed University of Globulin 00:00:00 [facility] Rho (d) Immune 2021-05-29 Completed [facility] of Globulin 00:00:00 [facility] Rho (d) Immune 2021-05-29 Completed University of Globulin 00:00:00 [facility] Rho (d) Immune 2021-05-29 Completed University of Globulin 00:00:00 [facility] Rho (d) Immune 2021-05-29 Completed University of Globulin 00:00:00 [facility] Branch Rho (d) Immune 2021-05-29 Completed University of Globulin 00:00:00 [facility] Rho (d) Immune 2021-05-29 Completed University of Globulin 00:00:00 [facility] Branch Rho (d) Immune 2021-05-29 Completed University of Globulin 00:00:00 [facility] Branch Rho (d) Immune 2021-05-29 Completed University of Globulin 00:00:00 [facility] Rho (d) Immune 2021-05-29 Completed University of Globulin 00:00:00 [facility] Rho (d) Immune 2021-05-29 Completed University of Globulin 00:00:00 [facility] Rho (d) Immune 2021-05-29 Completed University of Globulin 00:00:00 [facility] MMR 2020-02-01 Completed University of 00:00:00 [facility] Rho (d) Immune 2020-02-01 Completed University of Globulin 00:00:00 [facility] MMR 2020-02-01 Completed University of 00:00:00 [facility] Rho (d) Immune 2020-02-01 Completed University of Globulin 00:00:00 [facility] MMR 2020-02-01 Completed [facility] of 00:00:00 [facility] Rho (d) Immune 2020-02-01 Completed University of Globulin 00:00:00 [facility] MMR 2020-02-01 Completed University of 00:00:00 [facility] Rho (d) Immune 2020-02-01 Completed University of Globulin 00:00:00 [facility] MMR 2020-02-01 Completed [facility] of 00:00:00 [facility] Rho (d) Immune 2020-02-01 Completed University of Globulin 00:00:00 [facility] MMR 2020-02-01 Completed [facility] of 00:00:00 [facility] Rho (d) Immune 2020-02-01 Completed University of Globulin 00:00:00 [facility] MMR 2020-02-01 Completed University of 00:00:00 [facility] Rho (d) Immune 2020-02-01 Completed University of Globulin 00:00:00 [facility] MMR 2020-02-01 Completed University of 00:00:00 [facility] Rho (d) Immune 2020-02-01 Completed University of Globulin 00:00:00 [facility] MMR 2020-02-01 Completed University of 00:00:00 [facility] Rho (d) Immune 2020-02-01 Completed University of Globulin 00:00:00 [facility] MMR 2020-02-01 Completed University of 00:00:00 [facility] Rho (d) Immune 2020-02-01 Completed University of Globulin 00:00:00 [facility] MMR 2020-02-01 Completed University of 00:00:00 [facility] Rho (d) Immune 2020-02-01 Completed University of Globulin 00:00:00 [facility] MMR 2020-02-01 Completed University of 00:00:00 [facility] Rho (d) Immune 2020-02-01 Completed University of Globulin 00:00:00 [facility] MMR 2020-02-01 Completed [facility] of 00:00:00 [facility] Rho (d) Immune 2020-02-01 Completed University of Globulin 00:00:00 [facility] MMR 2020-02-01 Completed University of 00:00:00 [facility] Rho (d) Immune 2020-02-01 Completed University of Globulin 00:00:00 [facility] MMR 2020-02-01 Completed [facility] of 00:00:00 [facility] Rho (d) Immune 2020-02-01 Completed University of Globulin 00:00:00 [facility] MMR 2020-02-01 Completed [facility] of 00:00:00 [facility] Rho (d) Immune 2020-02-01 Completed [facility] of Globulin 00:00:00 [facility] MMR 2020-02-01 Completed [facility] of 00:00:00 [facility] Rho (d) Immune 2020-02-01 Completed University of Globulin 00:00:00 [facility] TDAP (ADACEL) 2019-12-08 Completed University of VACCINE 00:00:00 [facility] TDAP (ADACEL) 2019-12-08 Completed University of VACCINE 00:00:00 [facility] TDAP (ADACEL) 2019-12-08 Completed University of VACCINE 00:00:00 [facility] TDAP (ADACEL) 2019-12-08 Completed University of VACCINE 00:00:00 [facility] TDAP (ADACEL) 2019-12-08 Completed University of VACCINE 00:00:00 [place] [facility] TDAP (ADACEL) 2019-12-08 Completed University of VACCINE 00:00:00 [facility] Branch TDAP (ADACEL) 2019-12-08 Completed University of VACCINE 00:00:00 [facility] Branch TDAP (ADACEL) 2019-12-08 Completed University of VACCINE 00:00:00 [facility] TDAP (ADACEL) 2019-12-08 Completed University of VACCINE 00:00:00 [facility] TDAP (ADACEL) 2019-12-08 Completed University of VACCINE 00:00:00 [facility] TDAP (ADACEL) 2019-12-08 Completed University of VACCINE 00:00:00 [facility] TDAP (ADACEL) 2019-12-08 Completed University of VACCINE 00:00:00 [facility] TDAP (ADACEL) 2019-12-08 Completed University of VACCINE 00:00:00 [facility] TDAP (ADACEL) 2019-12-08 Completed University of VACCINE 00:00:00 [facility] TDAP (ADACEL) 2019-12-08 Completed University of VACCINE 00:00:00 [facility] TDAP (ADACEL) 2019-12-08 Completed University of VACCINE 00:00:00 [facility] TDAP (ADACEL) 2019-12-08 Completed University of VACCINE 00:00:00 [facility] Influenza Virus 2019-08-18 Completed [facility]it y of Vaccine Quad .5 mL 00:00:00 [facility] 6+ MO Branch Influenza Virus 2019-08-18 Completed Universit y of Vaccine 00:00:00 [facility] Influenza Virus 2019-08-18 Completed [facility]it y of Vaccine Quad .5 mL 00:00:00 [facility] 6+ MO Branch Influenza Virus 2019-08-18 Completed Universit y of Vaccine 00:00:00 [facility] Influenza Virus 2019-08-18 Completed [facility]it y of Vaccine Quad .5 mL 00:00:00 [facility] IM 6+ MO Branch Influenza Virus 2019-08-18 Completed Universit y of Vaccine 00:00:00 [facility] Influenza Virus 2019-08-18 Completed [facility]it y of Vaccine Quad .5 mL 00:00:00 [facility] 6+ MO Branch Influenza Virus 2019-08-18 Completed [facility]it y of Vaccine 00:00:00 [facility] Influenza Virus 2019-08-18 Completed [facility]it y of Vaccine Quad .5 mL 00:00:00 [facility] 6+ MO Branch Influenza Virus 2019-08-18 Completed [facility]it y of Vaccine 00:00:00 [facility] Influenza Virus 2019-08-18 Completed [facility]it y of Vaccine Quad .5 mL 00:00:00 [facility] 6+ MO Branch Influenza Virus 2019-08-18 Completed [facility]it y of Vaccine 00:00:00 [facility] Influenza Virus 2019-08-18 Completed [facility] y of Vaccine Quad .5 mL 00:00:00 [facility] 6+ MO Branch Influenza Virus 2019-08-18 Completed [facility]it y of Vaccine 00:00:00 [facility] Influenza Virus 2019-08-18 Completed [facility]it y of Vaccine Quad .5 mL 00:00:00 [facility] 6+ MO Branch Influenza Virus 2019-08-18 Completed [facility]it y of Vaccine 00:00:00 [facility] Influenza Virus 2019-08-18 Completed [facility]it y of Vaccine Quad .5 mL 00:00:00 [facility] 6+ MO Branch Influenza Virus 2019-08-18 Completed Universit y of Vaccine 00:00:00 [facility] Influenza Virus 2019-08-18 Completed [facility]it y of Vaccine Quad .5 mL 00:00:00 [facility] 6+ MO Branch Influenza Virus 2019-08-18 Completed Universit y of Vaccine 00:00:00 [facility] Influenza Virus 2019-08-18 Completed [facility]it y of Vaccine Quad .5 mL 00:00:00 [facility] 6+ MO Branch Influenza Virus 2019-08-18 Completed Universit y of Vaccine 00:00:00 [facility] Influenza Virus 2019-08-18 Completed [facility]it y of Vaccine Quad .5 mL 00:00:00 [facility] 6+ MO Branch Influenza Virus 2019-08-18 Completed Universit y of Vaccine 00:00:00 [facility] Influenza Virus 2019-08-18 Completed [facility]it y of Vaccine Quad .5 mL 00:00:00 [place] [facility] 6+ MO Branch Influenza Virus 2019-08-18 Completed Universit y of Vaccine 00:00:00 [facility] Influenza Virus 2019-08-18 Completed [facility]it y of Vaccine Quad .5 mL 00:00:00 [facility] 6+ MO Branch Influenza Virus 2019-08-18 Completed Universit y of Vaccine 00:00:00 [facility] Influenza Virus 2019-08-18 Completed [facility]it y of Vaccine Quad .5 mL 00:00:00 [facility] 6+ MO Branch Influenza Virus 2019-08-18 Completed [facility]it y of Vaccine 00:00:00 [facility] Influenza Virus 2019-08-18 Completed [facility]it y of Vaccine Quad .5 mL 00:00:00 [facility] 6+ MO Branch Influenza Virus 2019-08-18 Completed [facility]it y of Vaccine 00:00:00 [facility] Influenza Virus 2019-08-18 Completed [facility]it y of Vaccine Quad .5 mL 00:00:00 [facility] 6+ MO Branch Influenza Virus 2019-08-18 Completed [facility]it y of Vaccine 00:00:00 [facility] Rho (d) Immune 2019-07-27 Completed University of Globulin 00:00:00 [facility] Rho (d) Immune 2019-07-27 Completed University of Globulin 00:00:00 [facility] Rho (d) Immune 2019-07-27 Completed University of Globulin 00:00:00 [facility] Rho (d) Immune 2019-07-27 Completed University of Globulin 00:00:00 [facility] Rho (d) Immune 2019-07-27 Completed University of Globulin 00:00:00 [facility] Branch Rho (d) Immune 2019-07-27 Completed University of Globulin 00:00:00 [facility] Branch Rho (d) Immune 2019-07-27 Completed University of Globulin 00:00:00 [facility] Rho (d) Immune 2019-07-27 Completed University of Globulin 00:00:00 [facility] Branch Rho (d) Immune 2019-07-27 Completed University of Globulin 00:00:00 [facility] Rho (d) Immune 2019-07-27 Completed University of Globulin 00:00:00 [facility] Branch Rho (d) Immune 2019-07-27 Completed University of Globulin 00:00:00 [facility] Branch Rho (d) Immune 2019-07-27 Completed University of Globulin 00:00:00 [facility] Branch Rho (d) Immune 2019-07-27 Completed University of Globulin 00:00:00 [facility] Branch Rho (d) Immune 2019-07-27 Completed University of Globulin 00:00:00 [facility] Branch Rho (d) Immune 2019-07-27 Completed University of Globulin 00:00:00 [facility] Branch Rho (d) Immune 2019-07-27 Completed University of Globulin 00:00:00 [facility] Branch Rho (d) Immune 2019-07-27 Completed University of Globulin 00:00:00 [facility] Influenza Virus 2018-09-10 Completed Universit y of Vaccine Quad IM 3+ 00:00:00 [facility] Influenza Virus 2018-09-10 Completed Universit y of Vaccine Quad IM 3+ 00:00:00 [facility] Influenza Virus 2018-09-10 Completed Universit y of Vaccine Quad IM 3+ 00:00:00 [facility] Influenza Virus 2018-09-10 Completed [facility]it y of Vaccine Quad IM 3+ 00:00:00 [facility] Influenza Virus 2018-09-10 Completed [facility]it y of Vaccine Quad IM 3+ 00:00:00 [facility] Influenza Virus 2018-09-10 Completed [facility]it y of Vaccine Quad IM 3+ 00:00:00 [facility] Influenza Virus 2018-09-10 Completed [facility]it y of Vaccine Quad IM 3+ 00:00:00 [facility] Influenza Virus 2018-09-10 Completed [facility]it y of Vaccine Quad IM 3+ 00:00:00 [facility] Influenza Virus 2018-09-10 Completed [facility]it y of Vaccine Quad IM 3+ 00:00:00 [facility] Influenza Virus 2018-09-10 Completed [facility]it y of Vaccine Quad IM 3+ 00:00:00 [facility] Influenza Virus 2018-09-10 Completed [facility]it y of Vaccine Quad IM 3+ 00:00:00 [facility] Influenza Virus 2018-09-10 Completed [facility]it y of Vaccine Quad IM 3+ 00:00:00 [facility] Influenza Virus 2018-09-10 Completed [facility]it y of Vaccine Quad IM 3+ 00:00:00 [facility] Influenza Virus 2018-09-10 Completed [facility]it y of Vaccine Quad IM 3+ 00:00:00 [facility] Influenza Virus 2018-09-10 Completed [facility] y of Vaccine Quad IM 3+ 00:00:00 [facility] Influenza Virus 2018-09-10 Completed [facility]it y of Vaccine Quad IM 3+ 00:00:00 [facility] Influenza Virus 2018-09-10 Completed [facility]it y of Vaccine Quad IM 3+ 00:00:00 [facility] Influenza Virus 2017-09-12 Completed [facility]it y of Vaccine Quad IM 3+ 00:00:00 [facility] Influenza Virus 2017-09-12 Completed [facility]it y of Vaccine Quad IM 3+ 00:00:00 [facility] Influenza Virus 2017-09-12 Completed [facility]it y of Vaccine Quad IM 3+ 00:00:00 [facility] Influenza Virus 2017-09-12 Completed [facility]it y of Vaccine Quad IM 3+ 00:00:00 [facility] Influenza Virus 2017-09-12 Completed [facility]it y of Vaccine Quad IM 3+ 00:00:00 [facility] Influenza Virus 2017-09-12 Completed [facility]it y of Vaccine Quad IM 3+ 00:00:00 [facility] Influenza Virus 2017-09-12 Completed [facility]it y of Vaccine Quad IM 3+ 00:00:00 [facility] Influenza Virus 2017-09-12 Completed [facility]it y of Vaccine Quad IM 3+ 00:00:00 [facility] Influenza Virus 2017-09-12 Completed [facility]it y of Vaccine Quad IM 3+ 00:00:00 [facility] Influenza Virus 2017-09-12 Completed [facility] y of Vaccine Quad IM 3+ 00:00:00 [facility] Influenza Virus 2017-09-12 Completed [facility]it y of Vaccine Quad IM 3+ 00:00:00 [facility] Influenza Virus 2017-09-12 Completed [facility]it y of Vaccine Quad IM 3+ 00:00:00 [facility] Influenza Virus 2017-09-12 Completed [facility]it y of Vaccine Quad IM 3+ 00:00:00 [facility] Influenza Virus 2017-09-12 Completed [facility]it y of Vaccine Quad IM 3+ 00:00:00 [facility] Influenza Virus 2017-09-12 Completed [facility] y of Vaccine Quad IM 3+ 00:00:00 [facility] Influenza Virus 2017-09-12 Completed [facility] y of Vaccine Quad IM 3+ 00:00:00 [facility] Influenza Virus 2017-09-12 Completed [facility]it y of Vaccine Quad IM 3+ 00:00:00 [facility] Influenza Virus 2015-10-13 Completed [facility]it y of Vaccine Nasal 00:00:00 [facility] Influenza Virus 2015-10-13 Completed Universit y of Vaccine Nasal 00:00:00 [facility] Influenza Virus 2015-10-13 Completed [facility]it y of Vaccine Nasal 00:00:00 [facility] Influenza Virus 2015-10-13 Completed [facility]it y of Vaccine Nasal 00:00:00 [facility] Influenza Virus 2015-10-13 Completed [facility] Vaccine Nasal 00:00:00 [facility] Influenza Virus 2015-10-13 Completed [facility]it y of Vaccine Nasal 00:00:00 [facility] Influenza Virus 2015-10-13 Completed [facility]it y of Vaccine Nasal 00:00:00 [facility] Influenza Virus 2015-10-13 Completed [facility]it y of Vaccine Nasal 00:00:00 [facility] Influenza Virus 2015-10-13 Completed [facility]it y of Vaccine Nasal 00:00:00 [facility] Influenza Virus 2015-10-13 Completed [facility]it y of Vaccine Nasal 00:00:00 [facility] Influenza Virus 2015-10-13 Completed [facility]it y of Vaccine Nasal 00:00:00 [facility] Influenza Virus 2015-10-13 Completed [facility]it y of Vaccine Nasal 00:00:00 [facility] Influenza Virus 2015-10-13 Completed [facility]it y of Vaccine Nasal 00:00:00 [facility] Influenza Virus 2015-10-13 Completed [facility]it y of Vaccine Nasal 00:00:00 [facility] Influenza Virus 2015-10-13 Completed [facility]it y of Vaccine Nasal 00:00:00 [facility] Influenza Virus 2015-10-13 Completed [facility]it y of Vaccine Nasal 00:00:00 [facility] Influenza Virus 2015-10-13 Completed [facility]it y of Vaccine Nasal 00:00:00 [facility] Influenza Virus 2014-09-02 Completed Universit y of Vaccine 00:00:00 [facility] Influenza Virus 2014-09-02 Completed Universit y of Vaccine 00:00:00 [facility] Influenza Virus 2014-09-02 Completed [facility]it y of Vaccine 00:00:00 [facility] Influenza Virus 2014-09-02 Completed [facility]it y of Vaccine 00:00:00 [facility] Influenza Virus 2014-09-02 Completed Universit y of Vaccine 00:00:00 [facility] Influenza Virus 2014-09-02 Completed [facility]it y of Vaccine 00:00:00 [facility] Influenza Virus 2014-09-02 Completed [facility]it y of Vaccine 00:00:00 [facility] Influenza Virus 2014-09-02 Completed [facility] y of Vaccine 00:00:00 [facility] Influenza Virus 2014-09-02 Completed [facility]it y of Vaccine 00:00:00 [facility] Influenza Virus 2014-09-02 Completed [facility]it y of Vaccine 00:00:00 [facility] Influenza Virus 2014-09-02 Completed [facility]it y of Vaccine 00:00:00 [facility] Influenza Virus 2014-09-02 Completed [facility] y of Vaccine 00:00:00 [facility] Influenza Virus 2014-09-02 Completed [facility]it y of Vaccine 00:00:00 [facility] Influenza Virus 2014-09-02 Completed [facility] y of Vaccine 00:00:00 [facility] Influenza Virus 2014-09-02 Completed [facility]it y of Vaccine 00:00:00 [facility] Influenza Virus 2014-09-02 Completed [facility]it y of Vaccine 00:00:00 [facility] Influenza Virus 2014-09-02 Completed [facility]it y of Vaccine 00:00:00 [facility] HPV 2014-01-18 Completed University of 00:00:00 [facility] Meningococcal 2014-01-18 Completed University of Vaccine 00:00:00 [facility] Varicella 2014-01-18 Completed University of (varivax)(chicken 00:00:00 [place] [facility] pox) [facility] TDAP 2014-01-18 Completed [facility] of 00:00:00 [facility] Meningococcal 2014-01-18 Completed University of Polysaccharide 00:00:00 [place] [facility] (groups A, C, Y and Branc h W-135) conjugate vaccine (MCV4P) HPV 2014-01-18 Completed University of 00:00:00 [facility] Meningococcal 2014-01-18 Completed University of Vaccine 00:00:00 [facility] Varicella 2014-01-18 Completed University of (varivax)(chicken 00:00:00 [place] [facility] pox) [facility] TDAP 2014-01-18 Completed [facility] of 00:00:00 [facility] Meningococcal 2014-01-18 Completed [facility] of Polysaccharide 00:00:00 [place] [facility] (groups A, C, Y and Branc h W-135) conjugate vaccine (MCV4P) HPV 2014-01-18 Completed [facility] of 00:00:00 [facility] Meningococcal 2014-01-18 Completed University of Vaccine 00:00:00 [facility] Varicella 2014-01-18 Completed University of (varivax)(chicken 00:00:00 [place] [facility] pox) [facility] TDAP 2014-01-18 Completed [facility] 00:00:00 [facility] Meningococcal 2014-01-18 Completed [facility] Polysaccharide 00:00:00 [place] [facility] (groups A, C, Y and Branc h W-135) conjugate vaccine (MCV4P) HPV 2014-01-18 Completed [facility] 00:00:00 [facility] Meningococcal 2014-01-18 Completed [facility] Vaccine 00:00:00 [facility] Varicella 2014-01-18 Completed [facility] (varivax)(chicken 00:00:00 [place] [facility] pox) [facility] TDAP 2014-01-18 Completed [facility] 00:00:00 [facility] Meningococcal 2014-01-18 Completed [facility] Polysaccharide 00:00:00 [place] [facility] (groups A, C, Y and Branc h W-135) conjugate vaccine (MCV4P) HPV 2014-01-18 Completed [facility] 00:00:00 [facility] Meningococcal 2014-01-18 Completed [facility] Vaccine 00:00:00 [facility] Varicella 2014-01-18 Completed [facility] (varivax)(chicken 00:00:00 [place] [facility] pox[facility] TDAP 2014-01-18 Completed [facility] 00:00:00 [facility] Meningococcal 2014-01-18 Completed [facility] Polysaccharide 00:00:00 [place] [facility] (groups A, C, Y and Branc h W-135) conjugate vaccine (MCV4P) HPV 2014-01-18 Completed [facility] 00:00:00 [facility] Meningococcal 2014-01-18 Completed [facility] Vaccine 00:00:00 [facility] Varicella 2014-01-18 Completed [facility] (varivax)(chicken 00:00:00 [place] [facility] pox[facility] TDAP 2014-01-18 Completed [facility] 00:00:00 [facility] Meningococcal 2014-01-18 Completed [facility] Polysaccharide 00:00:00 [place] [facility] (groups A, C, Y and Branc h W-135) conjugate vaccine (MCV4P) HPV 2014-01-18 Completed [facility] 00:00:00 [facility] Meningococcal 2014-01-18 Completed [facility] Vaccine 00:00:00 [facility] Varicella 2014-01-18 Completed [facility] (varivax)(chicken 00:00:00 [place] [facility] pox[facility] TDAP 2014-01-18 Completed [facility] 00:00:00 [facility] Meningococcal 2014-01-18 Completed [facility] Polysaccharide 00:00:00 [place] [facility] (groups A, C, Y and Branc h W-135) conjugate vaccine (MCV4P) HPV 2014-01-18 Completed [facility] 00:00:00 [facility] Meningococcal 2014-01-18 Completed [facility] Vaccine 00:00:00 [facility] Varicella 2014-01-18 Completed [facility] (varivax)(chicken 00:00:00 [place] [facility] pox[facility] TDAP 2014-01-18 Completed [facility] 00:00:00 [facility] Meningococcal 2014-01-18 Completed [facility] Polysaccharide 00:00:00 [place] [facility] (groups A, C, Y and Branc h W-135) conjugate vaccine (MCV4P) HPV 2014-01-18 Completed [facility] 00:00:00 [facility] Meningococcal 2014-01-18 Completed [facility] Vaccine 00:00:00 [facility] Varicella 2014-01-18 Completed [facility] (varivax)(chicken 00:00:00 [place] [facility] pox[facility] TDAP 2014-01-18 Completed [facility] 00:00:00 [facility] Meningococcal 2014-01-18 Completed [facility] Polysaccharide 00:00:00 [place] [facility] (groups A, C, Y and Branc h W-135) conjugate vaccine (MCV4P) HPV 2014-01-18 Completed [facility] 00:00:00 [facility] Meningococcal 2014-01-18 Completed [facility] Vaccine 00:00:00 [facility] Varicella 2014-01-18 Completed [facility] (varivax)(chicken 00:00:00 [place] [facility] pox[facility] TDAP 2014-01-18 Completed [facility] 00:00:00 [facility] Meningococcal 2014-01-18 Completed [facility] Polysaccharide 00:00:00 [place] [facility] (groups A, C, Y and Branc h W-135) conjugate vaccine (MCV4P) HPV 2014-01-18 Completed [facility] 00:00:00 [facility] Meningococcal 2014-01-18 Completed [facility] Vaccine 00:00:00 [facility] Varicella 2014-01-18 Completed [facility] (varivax)(chicken 00:00:00 [place] [facility] pox[facility] TDAP 2014-01-18 Completed [facility] 00:00:00 [facility] Meningococcal 2014-01-18 Completed [facility] Polysaccharide 00:00:00 [place] [facility] (groups A, C, Y and Branc h W-135) conjugate vaccine (MCV4P) HPV 2014-01-18 Completed [facility] 00:00:00 [facility] Meningococcal 2014-01-18 Completed [facility] Vaccine 00:00:00 [facility] Varicella 2014-01-18 Completed [facility] (varivax)(chicken 00:00:00 [place] [facility] pox[facility] TDAP 2014-01-18 Completed [facility] 00:00:00 [facility] Meningococcal 2014-01-18 Completed [facility] Polysaccharide 00:00:00 [place] [facility] (groups A, C, Y and Branc h W-135) conjugate vaccine (MCV4P) HPV 2014-01-18 Completed [facility] 00:00:00 [facility] Meningococcal 2014-01-18 Completed [facility] Vaccine 00:00:00 [facility] Varicella 2014-01-18 Completed [facility] (varivax)(chicken 00:00:00 [place] [facility] pox[facility] TDAP 2014-01-18 Completed [facility] 00:00:00 [facility] Meningococcal 2014-01-18 Completed [facility] Polysaccharide 00:00:00 [place] [facility] (groups A, C, Y and Branc h W-135) conjugate vaccine (MCV4P) HPV 2014-01-18 Completed [facility] 00:00:00 [facility] Meningococcal 2014-01-18 Completed [facility] Vaccine 00:00:00 [facility] Varicella 2014-01-18 Completed [facility] (varivax)(chicken 00:00:00 [place] [facility] pox[facility] TDAP 2014-01-18 Completed [facility] 00:00:00 [facility] Meningococcal 2014-01-18 Completed [facility] Polysaccharide 00:00:00 [place] [facility] (groups A, C, Y and Branc h W-135) conjugate vaccine (MCV4P) HPV 2014-01-18 Completed [facility] 00:00:00 [facility] Meningococcal 2014-01-18 Completed [facility] Vaccine 00:00:00 [facility] Varicella 2014-01-18 Completed [facility] (varivax)(chicken 00:00:00 [place] [facility] pox) [facility] TDAP 2014-01-18 Completed [facility] 00:00:00 [facility] Meningococcal 2014-01-18 Completed [facility] Polysaccharide 00:00:00 [place] [facility] (groups A, C, Y and Branc h W-135) conjugate vaccine (MCV4P) HPV 2014-01-18 Completed [facility] 00:00:00 [facility] Meningococcal 2014-01-18 Completed [facility] Vaccine 00:00:00 [facility] Varicella 2014-01-18 Completed [facility] (varivax)(chicken 00:00:00 [place] [facility] pox[facility] TDAP 2014-01-18 Completed [facility] 00:00:00 [facility] Meningococcal 2014-01-18 Completed [facility] Polysaccharide 00:00:00 [place] [facility] (groups A, C, Y and Branc h W-135) conjugate vaccine (MCV4P) HPV 2014-01-18 Completed [facility] 00:00:00 [facility] Meningococcal 2014-01-18 Completed [facility] Vaccine 00:00:00 [facility] Varicella 2014-01-18 Completed [facility] (varivax)(chicken 00:00:00 [place] [facility] pox) [facility] TDAP 2014-01-18 Completed [facility] 00:00:00 [facility] Meningococcal 2014-01-18 Completed [facility] Polysaccharide 00:00:00 [place] [facility] (groups A, C, Y and Branc h W-135) conjugate vaccine (MCV4P) Influenza Virus 2013-09-23 Completed [facility] Vaccine 00:00:00 [facility] Influenza Virus 2013-09-23 Completed [facility] y of Vaccine 00:00:00 [facility] Influenza Virus 2013-09-23 Completed [facility] y of Vaccine 00:00:00 [facility] Influenza Virus 2013-09-23 Completed [facility] y of Vaccine 00:00:00 [facility] Influenza Virus 2013-09-23 Completed [facility] y of Vaccine 00:00:00 [facility] Influenza Virus 2013-09-23 Completed [facility] y of Vaccine 00:00:00 [facility] Influenza Virus 2013-09-23 Completed [facility] y of Vaccine 00:00:00 [facility] Influenza Virus 2013-09-23 Completed [facility]it y of Vaccine 00:00:00 [facility] Influenza Virus 2013-09-23 Completed [facility] y of Vaccine 00:00:00 [facility] Influenza Virus 2013-09-23 Completed [facility] y of Vaccine 00:00:00 [facility] Influenza Virus 2013-09-23 Completed [facility] y of Vaccine 00:00:00 [facility] Influenza Virus 2013-09-23 Completed [facility] y of Vaccine 00:00:00 [facility] Influenza Virus 2013-09-23 Completed [facility]it y of Vaccine 00:00:00 [facility] Influenza Virus 2013-09-23 Completed [facility] y of Vaccine 00:00:00 [facility] Influenza Virus 2013-09-23 Completed [facility] y of Vaccine 00:00:00 [facility] Influenza Virus 2013-09-23 Completed [facility]it y of Vaccine 00:00:00 [facility] Influenza Virus 2013-09-23 Completed [facility]it y of Vaccine 00:00:00 [facility] Influenza Virus 2012-11-24 Completed [facility] y of Vaccine 00:00:00 [facility] Influenza Virus 2012-11-24 Completed [facility] y of Vaccine 00:00:00 [facility] Influenza Virus 2012-11-24 Completed [facility] y of Vaccine 00:00:00 [facility] Influenza Virus 2012-11-24 Completed [facility]it y of Vaccine 00:00:00 [facility] Influenza Virus 2012-11-24 Completed [facility] y of Vaccine 00:00:00 [facility] Influenza Virus 2012-11-24 Completed [facility] y of Vaccine 00:00:00 [facility] Influenza Virus 2012-11-24 Completed [facility] y of Vaccine 00:00:00 [facility] Influenza Virus 2012-11-24 Completed [facility] y of Vaccine 00:00:00 [facility] Influenza Virus 2012-11-24 Completed [facility] y of Vaccine 00:00:00 [facility] Influenza Virus 2012-11-24 Completed [facility] y of Vaccine 00:00:00 [facility] Influenza Virus 2012-11-24 Completed [facility] y of Vaccine 00:00:00 [facility] Influenza Virus 2012-11-24 Completed [facility] y of Vaccine 00:00:00 [facility] Influenza Virus 2012-11-24 Completed [facility] y of Vaccine 00:00:00 [facility] Influenza Virus 2012-11-24 Completed [facility] y of Vaccine 00:00:00 [facility] Influenza Virus 2012-11-24 Completed [facility] y of Vaccine 00:00:00 [facility] Influenza Virus 2012-11-24 Completed [facility] y of Vaccine 00:00:00 [facility] Influenza Virus 2012-11-24 Completed [facility] y of Vaccine 00:00:00 [facility] Influenza Virus 2011-08-23 Completed [facility] y of Vaccine Nasal 00:00:00 [facility] Influenza Virus 2011-08-23 Completed Universit y of Vaccine Nasal 00:00:00 [facility] Influenza Virus 2011-08-23 Completed [facility] y of Vaccine Nasal 00:00:00 [facility] Influenza Virus 2011-08-23 Completed [facility] y of Vaccine Nasal 00:00:00 [facility] Influenza Virus 2011-08-23 Completed Universit y of Vaccine Nasal 00:00:00 [facility] Influenza Virus 2011-08-23 Completed [facility] y of Vaccine Nasal 00:00:00 [facility] Influenza Virus 2011-08-23 Completed [facility] y of Vaccine Nasal 00:00:00 [facility] Influenza Virus 2011-08-23 Completed [facility] y of Vaccine Nasal 00:00:00 [facility] Influenza Virus 2011-08-23 Completed [facility] y of Vaccine Nasal 00:00:00 [facility] Influenza Virus 2011-08-23 Completed [facility] y of Vaccine Nasal 00:00:00 [facility] Influenza Virus 2011-08-23 Completed [facility] y of Vaccine Nasal 00:00:00 [facility] Influenza Virus 2011-08-23 Completed [facility] y of Vaccine Nasal 00:00:00 [facility] Influenza Virus 2011-08-23 Completed [facility] y of Vaccine Nasal 00:00:00 [facility] Influenza Virus 2011-08-23 Completed [facility] y of Vaccine Nasal 00:00:00 [facility] Influenza Virus 2011-08-23 Completed [facility] y of Vaccine Nasal 00:00:00 [facility] Influenza Virus 2011-08-23 Completed [facility] y of Vaccine Nasal 00:00:00 [facility] Influenza Virus 2011-08-23 Completed [facility] y of Vaccine Nasal 00:00:00 [facility] HPV 2011-07-04 Completed [facility] 00:00:00 [facility] HPV 2011-07-04 Completed [facility] 00:00:00 [facility] HPV 2011-07-04 Completed [facility] 00:00:00 [facility] HPV 2011-07-04 Completed [facility] 00:00:00 [facility] HPV 2011-07-04 Completed [facility] 00:00:00 [facility] HPV 2011-07-04 Completed [facility] 00:00:00 [facility] HPV 2011-07-04 Completed [facility] 00:00:00 [facility] HPV 2011-07-04 Completed [facility] 00:00:00 [facility] HPV 2011-07-04 Completed [facility] 00:00:00 [facility] HPV 2011-07-04 Completed [facility] 00:00:00 [facility] HPV 2011-07-04 Completed [facility] 00:00:00 [facility] HPV 2011-07-04 Completed [facility] 00:00:00 [facility] HPV 2011-07-04 Completed [facility] 00:00:00 [facility] HPV 2011-07-04 Completed [facility] 00:00:00 [facility] HPV 2011-07-04 Completed [facility] 00:00:00 [facility] HPV 2011-07-04 Completed [facility] 00:00:00 [facility] HPV 2011-07-04 Completed [facility] 00:00:00 [facility] Influenza Virus 2010-09-06 Completed Universit y of Vaccine 00:00:00 [facility] Influenza Virus 2010-09-06 Completed [facility] y of Vaccine 00:00:00 [facility] Influenza Virus 2010-09-06 Completed [facility] y of Vaccine 00:00:00 [facility] Influenza Virus 2010-09-06 Completed [facility] y of Vaccine 00:00:00 [facility] Influenza Virus 2010-09-06 Completed [facility] y of Vaccine 00:00:00 [facility] Influenza Virus 2010-09-06 Completed [facility] y of Vaccine 00:00:00 [facility] Influenza Virus 2010-09-06 Completed [facility] y of Vaccine 00:00:00 [facility] Influenza Virus 2010-09-06 Completed [facility] y of Vaccine 00:00:00 [facility] Influenza Virus 2010-09-06 Completed [facility] y of Vaccine 00:00:00 [facility] Influenza Virus 2010-09-06 Completed [facility] y of Vaccine 00:00:00 [facility] Influenza Virus 2010-09-06 Completed [facility] y of Vaccine 00:00:00 [facility] Influenza Virus 2010-09-06 Completed [facility] y of Vaccine 00:00:00 [facility] Influenza Virus 2010-09-06 Completed [facility] y of Vaccine 00:00:00 [facility] Influenza Virus 2010-09-06 Completed [facility] y of Vaccine 00:00:00 [facility] Influenza Virus 2010-09-06 Completed [facility] y of Vaccine 00:00:00 [facility] Influenza Virus 2010-09-06 Completed [facility] y of Vaccine 00:00:00 [facility] Influenza Virus 2010-09-06 Completed [facility] y of Vaccine 00:00:00 [facility] HEPATITIS A 2006-12-16 Completed [facility] 00:00:00 [facility] HEPATITIS A 2006-12-16 Completed [facility] 00:00:00 [facility] HEPATITIS A 2006-12-16 Completed [facility] 00:00:00 [facility] HEPATITIS A 2006-12-16 Completed [facility] 00:00:00 [facility] HEPATITIS A 2006-12-16 Completed [facility] 00:00:00 [facility] HEPATITIS A 2006-12-16 Completed [facility] 00:00:00 [facility] HEPATITIS A 2006-12-16 Completed [facility] 00:00:00 [facility] HEPATITIS A 2006-12-16 Completed [facility] 00:00:00 [facility] HEPATITIS A 2006-12-16 Completed [facility] 00:00:00 [facility] HEPATITIS A 2006-12-16 Completed [facility] 00:00:00 [facility] HEPATITIS A 2006-12-16 Completed [facility] 00:00:00 [facility] HEPATITIS A 2006-12-16 Completed [facility] 00:00:00 [facility] HEPATITIS A 2006-12-16 Completed [facility] 00:00:00 [facility] HEPATITIS A 2006-12-16 Completed [facility] 00:00:00 [facility] HEPATITIS A 2006-12-16 Completed [facility] 00:00:00 [facility] HEPATITIS A 2006-12-16 Completed [facility] 00:00:00 [facility] HEPATITIS A 2006-12-16 Completed [facility] 00:00:00 [facility] HEPATITIS A 2005-10-11 Completed [facility] 00:00:00 [facility] HEPATITIS A 2005-10-11 Completed [facility] 00:00:00 [facility] HEPATITIS A 2005-10-11 Completed [facility] 00:00:00 [facility] HEPATITIS A 2005-10-11 Completed [facility] 00:00:00 [facility] HEPATITIS A 2005-10-11 Completed [facility] 00:00:00 [facility] HEPATITIS A 2005-10-11 Completed [facility] 00:00:00 [facility] HEPATITIS A 2005-10-11 Completed [facility] 00:00:00 [facility] HEPATITIS A 2005-10-11 Completed [facility] 00:00:00 [facility] HEPATITIS A 2005-10-11 Completed [facility] 00:00:00 [facility] HEPATITIS A 2005-10-11 Completed [facility] 00:00:00 [facility] HEPATITIS A 2005-10-11 Completed [facility] 00:00:00 [facility] HEPATITIS A 2005-10-11 Completed [facility] 00:00:00 [facility] HEPATITIS A 2005-10-11 Completed [facility] 00:00:00 [facility] HEPATITIS A 2005-10-11 Completed [facility] 00:00:00 [facility] HEPATITIS A 2005-10-11 Completed [facility] 00:00:00 [facility] HEPATITIS A 2005-10-11 Completed [facility] 00:00:00 [facility] HEPATITIS A 2005-10-11 Completed [facility] 00:00:00 [facility] Influenza Virus 2003-09-06 Completed Universit y of Vaccine 00:00:00 [facility] Influenza Virus 2003-09-06 Completed [facility] y of Vaccine 00:00:00 [facility] Influenza Virus 2003-09-06 Completed [facility] y of Vaccine 00:00:00 [facility] Influenza Virus 2003-09-06 Completed [facility] y of Vaccine 00:00:00 [facility] Influenza Virus 2003-09-06 Completed [facility] y of Vaccine 00:00:00 [facility] Influenza Virus 2003-09-06 Completed [facility] y of Vaccine 00:00:00 [facility] Influenza Virus 2003-09-06 Completed [facility] y of Vaccine 00:00:00 [facility] Influenza Virus 2003-09-06 Completed [facility] y of Vaccine 00:00:00 [facility] Influenza Virus 2003-09-06 Completed [facility] y of Vaccine 00:00:00 [facility] Influenza Virus 2003-09-06 Completed [facility] y of Vaccine 00:00:00 [facility] Influenza Virus 2003-09-06 Completed [facility] y of Vaccine 00:00:00 [facility] Influenza Virus 2003-09-06 Completed [facility] y of Vaccine 00:00:00 [facility] Influenza Virus 2003-09-06 Completed [facility] y of Vaccine 00:00:00 [facility] Influenza Virus 2003-09-06 Completed [facility] y of Vaccine 00:00:00 [facility] Influenza Virus 2003-09-06 Completed [facility] y of Vaccine 00:00:00 [facility] Influenza Virus 2003-09-06 Completed [facility] y of Vaccine 00:00:00 [facility] Influenza Virus 2003-09-06 Completed Universit y of Vaccine 00:00:00 [facility] DTAP 2003-02-08 Completed [facility] 00:00:00 [facility] HIB 4 Dose Schedule 2003-02-08 Completed Unive rsity of 00:00:00 [facility] TDAP 2003-02-08 Completed [facility] 00:00:00 [facility] Heamophilus 2003-02-08 Completed University of Influenza B 00:00:00 [facility] DTAP 2003-02-08 Completed [facility] 00:00:00 [facility] HIB 4 Dose Schedule 2003-02-08 Completed Unive rsity of 00:00:00 [facility] TDAP 2003-02-08 Completed [facility] 00:00:00 [facility] Heamophilus 2003-02-08 Completed [facility] of Influenza B 00:00:00 [facility] DTAP 2003-02-08 Completed [facility] 00:00:00 [facility] HIB 4 Dose Schedule 2003-02-08 Completed Unive rsity of 00:00:00 [facility] TDAP 2003-02-08 Completed [facility] 00:00:00 [facility] Heamophilus 2003-02-08 Completed [facility] of Influenza B 00:00:00 [facility] DTAP 2003-02-08 Completed [facility] 00:00:00 [facility] HIB 4 Dose Schedule 2003-02-08 Completed Unive rsity of 00:00:00 [facility] TDAP 2003-02-08 Completed [facility] 00:00:00 [facility] Heamophilus 2003-02-08 Completed [facility] of Influenza B 00:00:00 [facility] DTAP 2003-02-08 Completed [facility] 00:00:00 [facility] HIB 4 Dose Schedule 2003-02-08 Completed Unive rsity of 00:00:00 [facility] TDAP 2003-02-08 Completed [facility] 00:00:00 [facility] Heamophilus 2003-02-08 Completed [facility] of Influenza B 00:00:00 [facility] DTAP 2003-02-08 Completed [facility] 00:00:00 [facility] HIB 4 Dose Schedule 2003-02-08 Completed Unive rsity of 00:00:00 [facility] TDAP 2003-02-08 Completed [facility] 00:00:00 [facility] [facility] Heamophilus 2003-02-08 Completed [facility] Influenza B 00:00:00 [facility] DTAP 2003-02-08 Completed [facility] 00:00:00 [facility] HIB 4 Dose Schedule 2003-02-08 Completed Unive rsity of 00:00:00 [facility] TDAP 2003-02-08 Completed [facility] 00:00:00 [facility] Heamophilus 2003-02-08 Completed [facility] Influenza B 00:00:00 [facility] DTAP 2003-02-08 Completed [facility] 00:00:00 [facility] HIB 4 Dose Schedule 2003-02-08 Completed [facility]ive rsity of 00:00:00 [facility] TDAP 2003-02-08 Completed [facility] 00:00:00 [facility] Heamophilus 2003-02-08 Completed [facility] Influenza B 00:00:00 [facility] DTAP 2003-02-08 Completed [facility] of 00:00:00 [facility] HIB 4 Dose Schedule 2003-02-08 Completed [facility]ive rs[facility] of 00:00:00 [facility] TDAP 2003-02-08 Completed [facility] 00:00:00 [facility] Heamophilus 2003-02-08 Completed [facility] Influenza B 00:00:00 [facility] DTAP 2003-02-08 Completed [facility] 00:00:00 [facility] HIB 4 Dose Schedule 2003-02-08 Completed Unive rsity of 00:00:00 [facility] TDAP 2003-02-08 Completed [facility] 00:00:00 [facility] Heamophilus 2003-02-08 Completed [facility] Influenza B 00:00:00 [facility] DTAP 2003-02-08 Completed [facility] of 00:00:00 [facility] HIB 4 Dose Schedule 2003-02-08 Completed Unive rsity of 00:00:00 [facility] TDAP 2003-02-08 Completed [facility] 00:00:00 [facility] Heamophilus 2003-02-08 Completed [facility] Influenza B 00:00:00 [facility] DTAP 2003-02-08 Completed [facility] of 00:00:00 [facility] HIB 4 Dose Schedule 2003-02-08 Completed [facility]ive rs[facility] of 00:00:00 [facility] TDAP 2003-02-08 Completed [facility] 00:00:00 [facility] Heamophilus 2003-02-08 Completed [facility] Influenza B 00:00:00 [facility] DTAP 2003-02-08 Completed [facility] of 00:00:00 [facility] HIB 4 Dose Schedule 2003-02-08 Completed [facility]ive rs[facility] of 00:00:00 [facility] TDAP 2003-02-08 Completed [facility] 00:00:00 [facility] Heamophilus 2003-02-08 Completed [facility] Influenza B 00:00:00 [facility] DTAP 2003-02-08 Completed [facility] 00:00:00 [facility] HIB 4 Dose Schedule 2003-02-08 Completed [facility]ive rs[facility] 00:00:00 [facility] TDAP 2003-02-08 Completed [facility] of 00:00:00 [facility] Heamophilus 2003-02-08 Completed [facility] Influenza B 00:00:00 [facility] DTAP 2003-02-08 Completed [facility] of 00:00:00 [facility] HIB 4 Dose Schedule 2003-02-08 Completed [facility]ive rsity of 00:00:00 [facility] TDAP 2003-02-08 Completed [facility] of 00:00:00 [facility] Heamophilus 2003-02-08 Completed [facility] of Influenza B 00:00:00 [facility] DTAP 2003-02-08 Completed [facility] of 00:00:00 [facility] HIB 4 Dose Schedule 2003-02-08 Completed [facility]ive rsity of 00:00:00 [facility] TDAP 2003-02-08 Completed [facility] 00:00:00 [facility] Heamophilus 2003-02-08 Completed [facility] Influenza B 00:00:00 [facility] DTAP 2003-02-08 Completed [facility] of 00:00:00 [facility] HIB 4 Dose Schedule 2003-02-08 Completed [facility]ive rsity of 00:00:00 [facility] TDAP 2003-02-08 Completed [facility] of 00:00:00 [facility] Heamophilus 2003-02-08 Completed [facility] Influenza B 00:00:00 [facility] Varicella 2002-11-23 Completed [facility] of (varivax)(chicken 00:00:00 [place] [facility]ox[facility] MMR 2002-11-23 Completed [facility] of 00:00:00 [facility] IPV 2002-11-23 Completed [facility] of 00:00:00 [facility] Varicella 2002-11-23 Completed [facility] (varivax)(chicken 00:00:00 [place] [facility] pox[facility] MMR 2002-11-23 Completed [facility] of 00:00:00 [facility] IPV 2002-11-23 Completed [facility] of 00:00:00 [facility] Varicella 2002-11-23 Completed [facility] (varivax)(chicken 00:00:00 [place] [facility] pox[facility] MMR 2002-11-23 Completed [facility] of 00:00:00 [facility] IPV 2002-11-23 Completed [facility] of 00:00:00 [facility] Varicella 2002-11-23 Completed [facility] (varivax)(chicken 00:00:00 [place] [facility] pox) [facility] MMR 2002-11-23 Completed [facility] of 00:00:00 [facility] IPV 2002-11-23 Completed [facility] of 00:00:00 [facility] Varicella 2002-11-23 Completed [facility] of (varivax)(chicken 00:00:00 [place] [facility] pox) [facility] MMR 2002-11-23 Completed [facility] of 00:00:00 [facility] IPV 2002-11-23 Completed [facility] of 00:00:00 [facility] Varicella 2002-11-23 Completed [facility] of (varivax)(chicken 00:00:00 [place] [facility] pox) [facility] MMR 2002-11-23 Completed [facility] of 00:00:00 [facility] IPV 2002-11-23 Completed [facility] of 00:00:00 [facility] Varicella 2002-11-23 Completed [facility] of (varivax)(chicken 00:00:00 [place] [facility] pox) [facility] MMR 2002-11-23 Completed [facility] of 00:00:00 [facility] IPV 2002-11-23 Completed [facility] of 00:00:00 [facility] Varicella 2002-11-23 Completed [facility] (varivax)(chicken 00:00:00 [place] [facility] pox) [facility] MMR 2002-11-23 Completed [facility] of 00:00:00 [facility] IPV 2002-11-23 Completed [facility] of 00:00:00 [facility] Varicella 2002-11-23 Completed [facility] (varivax)(chicken 00:00:00 [place] [facility] pox) [facility] MMR 2002-11-23 Completed [facility] of 00:00:00 [facility] IPV 2002-11-23 Completed [facility] of 00:00:00 [facility] Varicella 2002-11-23 Completed [facility] of (varivax)(chicken 00:00:00 [place] [facility] pox) [facility] MMR 2002-11-23 Completed [facility] of 00:00:00 [facility] IPV 2002-11-23 Completed [facility] of 00:00:00 [facility] Varicella 2002-11-23 Completed [facility] (varivax)(chicken 00:00:00 [place] [facility] pox) [facility] MMR 2002-11-23 Completed [facility] of 00:00:00 [facility] IPV 2002-11-23 Completed [facility] of 00:00:00 [facility] Varicella 2002-11-23 Completed [facility] (varivax)(chicken 00:00:00 [place] [facility] pox) [facility] MMR 2002-11-23 Completed [facility] of 00:00:00 [facility] IPV 2002-11-23 Completed [facility] of 00:00:00 [facility] Varicella 2002-11-23 Completed [facility] (varivax)(chicken 00:00:00 [place] [facility]ox[facility] MMR 2002-11-23 Completed [facility] of 00:00:00 [facility] IPV 2002-11-23 Completed [facility] of 00:00:00 [facility] Varicella 2002-11-23 Completed [facility] (varivax)(chicken 00:00:00 [place] [facility] pox) [facility] MMR 2002-11-23 Completed [facility] of 00:00:00 [facility] IPV 2002-11-23 Completed [facility] of 00:00:00 [facility] Varicella 2002-11-23 Completed [facility] of (varivax)(chicken 00:00:00 [place] [facility] pox) [facility] MMR 2002-11-23 Completed [facility] of 00:00:00 [facility] IPV 2002-11-23 Completed [facility] of 00:00:00 [facility] Varicella 2002-11-23 Completed [facility] (varivax)(chicken 00:00:00 [place] [facility] pox) [facility] MMR 2002-11-23 Completed [facility] of 00:00:00 [facility] IPV 2002-11-23 Completed [facility] of 00:00:00 [facility] Varicella 2002-11-23 Completed University of (varivax)(chicken 00:00:00 [facility] edical pox) Branch MMR 2002-11-23 Completed University of 00:00:00 [facility] IPV 2002-11-23 Completed University of 00:00:00 [facility] DTAP 2002-08-03 Completed [facility] of 00:00:00 [facility] HIB 4 Dose Schedule 2002-08-03 Completed Unive rsity of 00:00:00 [facility] Hep B, Adol or Pedi 2002-08-03 Completed Unive rsity of Dosage 00:00:00 [facility] TDAP 2002-08-03 Completed University of 00:00:00 [facility] Heamophilus 2002-08-03 Completed [facility] of Influenza B 00:00:00 [facility] DTAP 2002-08-03 Completed [facility] of 00:00:00 [facility] HIB 4 Dose Schedule 2002-08-03 Completed Unive rsity of 00:00:00 [facility] Hep B, Adol or Pedi 2002-08-03 Completed Unive rsity of Dosage 00:00:00 [facility] TDAP 2002-08-03 Completed [facility] of 00:00:00 [facility] Heamophilus 2002-08-03 Completed [facility] Influenza B 00:00:00 [facility] DTAP 2002-08-03 Completed [facility] of 00:00:00 [facility] HIB 4 Dose Schedule 2002-08-03 Completed Unive rsity of 00:00:00 [facility] Hep B, Adol or Pedi 2002-08-03 Completed Unive rsity of Dosage 00:00:00 [facility] TDAP 2002-08-03 Completed [facility] of 00:00:00 [facility] Heamophilus 2002-08-03 Completed [facility] of Influenza B 00:00:00 [facility] DTAP 2002-08-03 Completed [facility] of 00:00:00 [facility] HIB 4 Dose Schedule 2002-08-03 Completed Unive rsity of 00:00:00 [facility] Hep B, Adol or Pedi 2002-08-03 Completed Unive rsity of Dosage 00:00:00 [facility] TDAP 2002-08-03 Completed University of 00:00:00 [facility] Heamophilus 2002-08-03 Completed [facility] Influenza B 00:00:00 [facility] DTAP 2002-08-03 Completed [facility] of 00:00:00 [facility] HIB 4 Dose Schedule 2002-08-03 Completed Unive rsity of 00:00:00 [facility] Hep B, Adol or Pedi 2002-08-03 Completed Unive rsity of Dosage 00:00:00 [facility] TDAP 2002-08-03 Completed [facility] of 00:00:00 [facility] Heamophilus 2002-08-03 Completed [facility] of Influenza B 00:00:00 [facility] DTAP 2002-08-03 Completed [facility] of 00:00:00 [facility] HIB 4 Dose Schedule 2002-08-03 Completed Unive rsity of 00:00:00 [facility] Hep B, Adol or Pedi 2002-08-03 Completed Unive rsity of Dosage 00:00:00 [facility] TDAP 2002-08-03 Completed [facility] of 00:00:00 [facility] Heamophilus 2002-08-03 Completed [facility] of Influenza B 00:00:00 [facility] DTAP 2002-08-03 Completed [facility] 00:00:00 [facility] HIB 4 Dose Schedule 2002-08-03 Completed Unive rsity of 00:00:00 [facility] Hep B, Adol or Pedi 2002-08-03 Completed Unive rsity of Dosage 00:00:00 [facility] TDAP 2002-08-03 Completed University of 00:00:00 [facility] Heamophilus 2002-08-03 Completed [facility] of Influenza B 00:00:00 [facility] DTAP 2002-08-03 Completed University of 00:00:00 [facility] HIB 4 Dose Schedule 2002-08-03 Completed Unive rsity of 00:00:00 [facility] Hep B, Adol or Pedi 2002-08-03 Completed Unive rsity of Dosage 00:00:00 [facility] TDAP 2002-08-03 Completed [facility] of 00:00:00 [facility] Heamophilus 2002-08-03 Completed [facility] of Influenza B 00:00:00 [facility] DTAP 2002-08-03 Completed [facility] of 00:00:00 [facility] HIB 4 Dose Schedule 2002-08-03 Completed Unive rsity of 00:00:00 [facility] Hep B, Adol or Pedi 2002-08-03 Completed Unive rsity of Dosage 00:00:00 [facility] TDAP 2002-08-03 Completed University of 00:00:00 [facility] Heamophilus 2002-08-03 Completed [facility] of Influenza B 00:00:00 [facility] DTAP 2002-08-03 Completed [facility] of 00:00:00 [facility] HIB 4 Dose Schedule 2002-08-03 Completed Unive rsity of 00:00:00 [facility] Hep B, Adol or Pedi 2002-08-03 Completed Unive rsity of Dosage 00:00:00 [facility] TDAP 2002-08-03 Completed University of 00:00:00 [facility] Heamophilus 2002-08-03 Completed [facility] of Influenza B 00:00:00 [facility] DTAP 2002-08-03 Completed [facility] of 00:00:00 [facility] HIB 4 Dose Schedule 2002-08-03 Completed Unive rsity of 00:00:00 [facility] Hep B, Adol or Pedi 2002-08-03 Completed Unive rsity of Dosage 00:00:00 [facility] TDAP 2002-08-03 Completed University of 00:00:00 [facility] Heamophilus 2002-08-03 Completed [facility] of Influenza B 00:00:00 [facility] DTAP 2002-08-03 Completed [facility] of 00:00:00 [facility] HIB 4 Dose Schedule 2002-08-03 Completed Unive rsity of 00:00:00 [facility] Hep B, Adol or Pedi 2002-08-03 Completed Unive rsity of Dosage 00:00:00 [facility] TDAP 2002-08-03 Completed University of 00:00:00 [facility] Heamophilus 2002-08-03 Completed [facility] of Influenza B 00:00:00 [facility] DTAP 2002-08-03 Completed [facility] of 00:00:00 [facility] HIB 4 Dose Schedule 2002-08-03 Completed Unive rsity of 00:00:00 [facility] Hep B, Adol or Pedi 2002-08-03 Completed Unive rsity of Dosage 00:00:00 [facility] TDAP 2002-08-03 Com[facility] Influenza B 00:00:00 [facility] DTAP 2002-08-03 Completed [facility] of 00:00:00 [facility] HIB 4 Dose Schedule 2002-08-03 Completed Unive rsity of 00:00:00 [facility] Hep B, Adol or Pedi 2002-08-03 Completed Unive rsity of Dosage 00:00:00 [facility] TDAP 2002-08-03 Completed University of 00:00:00 [facility] Heamophilus 2002-08-03 Completed [facility] of Influenza B 00:00:00 [facility] DTAP 2002-08-03 Completed [facility] of 00:00:00 [facility] HIB 4 Dose Schedule 2002-08-03 Completed Unive rsity of 00:00:00 [facility] Hep B, Adol or Pedi 2002-08-03 Completed Unive rsity of Dosage 00:00:00 [facility] TDAP 2002-08-03 Completed University of 00:00:00 [facility] Heamophilus 2002-08-03 Completed [facility] of Influenza B 00:00:00 [facility] DTAP 2002-08-03 Completed [facility] of 00:00:00 [facility] HIB 4 Dose Schedule 2002-08-03 Completed [facility]ive rsity of 00:00:00 [facility] Hep B, Adol or Pedi 2002-08-03 Completed Unive rsity of Dosage 00:00:00 [facility] TDAP 2002-08-03 Completed [facility] of 00:00:00 [facility] Heamophilus 2002-08-03 Completed [facility] of Influenza B 00:00:00 [facility] DTAP 2002-08-03 Completed [facility] of 00:00:00 [facility] HIB 4 Dose Schedule 2002-08-03 Completed Unive rsity of 00:00:00 [facility] Hep B, Adol or Pedi 2002-08-03 Completed Unive rsity of Dosage 00:00:00 [facility] TDAP 2002-08-03 Completed [facility] of 00:00:00 [facility] Heamophilus 2002-08-03 Completed [facility] of Influenza B 00:00:00 [facility] DTAP 2002-03-15 Completed [facility] of 00:00:00 [facility] HIB 4 Dose Schedule 2002-03-15 Completed Unive rsity of 00:00:00 [facility] TDAP 2002-03-15 Completed [facility] of 00:00:00 [facility] Heamophilus 2002-03-15 Completed [facility] of Influenza B 00:00:00 [facility] IPV 2002-03-15 Completed University of 00:00:00 [facility] DTAP 2002-03-15 Completed [facility] of 00:00:00 [facility] HIB 4 Dose Schedule 2002-03-15 Completed Unive rsity of 00:00:00 [facility] TDAP 2002-03-15 Completed [facility] of 00:00:00 [facility] Heamophilus 2002-03-15 Completed [facility] of Influenza B 00:00:00 [facility] IPV 2002-03-15 Completed [facility] of 00:00:00 [facility] DTAP 2002-03-15 Completed [facility] of 00:00:00 [facility] HIB 4 Dose Schedule 2002-03-15 Completed Unive rsity of 00:00:00 [facility] TDAP 2002-03-15 Completed [facility] of 00:00:00 [facility] Heamophilus 2002-03-15 Completed [facility] of Influenza B 00:00:00 [facility] IPV 2002-03-15 Completed University of 00:00:00 [facility] DTAP 2002-03-15 Completed [facility] of 00:00:00 [facility] HIB 4 Dose Schedule 2002-03-15 Completed Unive rsity of 00:00:00 [facility] TDAP 2002-03-15 Completed [facility] 00:00:00 [facility] Heamophilus 2002-03-15 Completed [facility] of Influenza B 00:00:00 [facility] IPV 2002-03-15 Completed [facility] 00:00:00 [facility] DTAP 2002-03-15 Completed [facility] 00:00:00 [facility] HIB 4 Dose Schedule 2002-03-15 Completed [facility]ive rsity of 00:00:00 [facility] TDAP 2002-03-15 Completed [facility] of 00:00:00 [facility] Heamophilus 2002-03-15 Completed [facility] of Influenza B 00:00:00 [facility] IPV 2002-03-15 Completed [facility] of 00:00:00 [facility] DTAP 2002-03-15 Completed [facility] of 00:00:00 [facility] HIB 4 Dose Schedule 2002-03-15 Completed Unive rsity of 00:00:00 [facility] TDAP 2002-03-15 Completed [facility] 00:00:00 [facility] Heamophilus 2002-03-15 Completed [facility] Influenza B 00:00:00 [facility] IPV 2002-03-15 Completed [facility] 00:00:00 [facility] DTAP 2002-03-15 Completed [facility] of 00:00:00 [facility] HIB 4 Dose Schedule 2002-03-15 Completed Unive rsity of 00:00:00 [facility] TDAP 2002-03-15 Completed [facility] 00:00:00 [facility] Heamophilus 2002-03-15 Completed [facility] Influenza B 00:00:00 [facility] IPV 2002-03-15 Completed [facility] 00:00:00 [facility] DTAP 2002-03-15 Completed [facility] of 00:00:00 [facility] HIB 4 Dose Schedule 2002-03-15 Completed Unive rsity of 00:00:00 [facility] TDAP 2002-03-15 Completed [facility] 00:00:00 [facility] Heamophilus 2002-03-15 Completed [facility] of Influenza B 00:00:00 [facility] IPV 2002-03-15 Completed [facility] of 00:00:00 [facility] DTAP 2002-03-15 Completed [facility] 00:00:00 [facility] HIB 4 Dose Schedule 2002-03-15 Completed Unive rsity of 00:00:00 [facility] TDAP 2002-03-15 Completed [facility] 00:00:00 [facility] Heamophilus 2002-03-15 Completed [facility] Influenza B 00:00:00 [facility] IPV 2002-03-15 Completed [facility] 00:00:00 [facility] DTAP 2002-03-15 Completed [facility] of 00:00:00 [facility] HIB 4 Dose Schedule 2002-03-15 Completed Unive rsity of 00:00:00 [facility] TDAP 2002-03-15 Completed [facility] 00:00:00 [facility] Heamophilus 2002-03-15 Completed [facility] Influenza B 00:00:00 [facility] IPV 2002-03-15 Completed [facility] 00:00:00 [facility] DTAP 2002-03-15 Completed [facility] of 00:00:00 [facility] HIB 4 Dose Schedule 2002-03-15 Completed Unive rsity of 00:00:00 [facility] TDAP 2002-03-15 Completed [facility] of 00:00:00 [facility] Heamophilus 2002-03-15 Completed [facility] of Influenza B 00:00:00 [facility] IPV 2002-03-15 Completed [facility] of 00:00:00 [facility] DTAP 2002-03-15 Completed [facility] of 00:00:00 [facility] HIB 4 Dose Schedule 2002-03-15 Completed Unive rsity of 00:00:00 [facility] TDAP 2002-03-15 Completed [facility] of 00:00:00 [facility] Heamophilus 2002-03-15 Completed [facility] of Influenza B 00:00:00 [facility] IPV 2002-03-15 Completed [facility] of 00:00:00 [facility] DTAP 2002-03-15 Completed [facility] of 00:00:00 [facility] HIB 4 Dose Schedule 2002-03-15 Completed Unive rsity of 00:00:00 [facility] TDAP 2002-03-15 Completed [facility] 00:00:00 [facility] Heamophilus 2002-03-15 Completed [facility] of Influenza B 00:00:00 [facility] IPV 2002-03-15 Completed [facility] 00:00:00 [facility] DTAP 2002-03-15 Completed [facility] 00:00:00 [facility] HIB 4 Dose Schedule 2002-03-15 Completed Unive rsity of 00:00:00 [facility] TDAP 2002-03-15 Completed University of 00:00:00 [facility] Heamophilus 2002-03-15 Completed University of Influenza B 00:00:00 [facility] IPV 2002-03-15 Completed University of 00:00:00 [facility] DTAP 2002-03-15 Completed University of 00:00:00 [facility] HIB 4 Dose Schedule 2002-03-15 Completed Unive rsity of 00:00:00 [facility] TDAP 2002-03-15 Completed University of 00:00:00 [facility] Heamophilus 2002-03-15 Completed University of Influenza B 00:00:00 [facility] IPV 2002-03-15 Completed University of 00:00:00 [facility] DTAP 2002-03-15 Completed University of 00:00:00 [facility] HIB 4 Dose Schedule 2002-03-15 Completed Unive rsity of 00:00:00 [facility] TDAP 2002-03-15 Completed University of 00:00:00 [facility] Heamophilus 2002-03-15 Completed University of Influenza B 00:00:00 [facility] IPV 2002-03-15 Completed University of 00:00:00 [facility] DTAP 2002-03-15 Completed University of 00:00:00 [facility] HIB 4 Dose Schedule 2002-03-15 Completed Unive rsity of 00:00:00 [facility] TDAP 2002-03-15 Completed University of 00:00:00 [facility] Heamophilus 2002-03-15 Completed University of Influenza B 00:00:00 [facility] IPV 2002-03-15 Completed University of 00:00:00 [facility] DTAP 2001 Completed University of 00:00:00 [facility] HIB 4 Dose Schedule 2001 Completed Unive rsity of 00:00:00 [facility] TDAP 2001 Completed University of 00:00:00 [facility] Heamophilus 2001 Completed University of Influenza B 00:00:00 [facility] IPV 2001 Completed University of 00:00:00 [facility] DTAP 2001 Completed University of 00:00:00 [facility] HIB 4 Dose Schedule 2001 Completed Unive rsity of 00:00:00 [facility] TDAP 2001 Completed University of 00:00:00 [facility] Heamophilus 2001 Completed University of Influenza B 00:00:00 [facility] IPV 2001 Completed University of 00:00:00 [facility] DTAP 2001 Completed University of 00:00:00 [facility] HIB 4 Dose Schedule 2001 Completed Unive rsity of 00:00:00 [facility] TDAP 2001 Completed University of 00:00:00 [facility] Heamophilus 2001 Completed University of Influenza B 00:00:00 [facility] IPV 2001 Completed University of 00:00:00 [facility] DTAP 2001 Completed University of 00:00:00 [facility] HIB 4 Dose Schedule 2001 Completed Unive rsity of 00:00:00 [facility] TDAP 2001 Completed University of 00:00:00 [facility] Heamophilus 2001 Completed University of Influenza B 00:00:00 [facility] IPV 2001 Completed University of 00:00:00 [facility] DTAP 2001 Completed University of 00:00:00 [facility] HIB 4 Dose Schedule 2001 Completed Unive rsity of 00:00:00 [facility] TDAP 2001 Completed University of 00:00:00 [facility] Heamophilus 2001 Completed University of Influenza B 00:00:00 [facility] IPV 2001 Completed University of 00:00:00 [facility] DTAP 2001 Completed University of 00:00:00 [facility] HIB 4 Dose Schedule 2001 Completed Unive rsity of 00:00:00 [facility] TDAP 2001 Completed University of 00:00:00 [facility] Heamophilus 2001 Completed University of Influenza B 00:00:00 [facility] IPV 2001 Completed University of 00:00:00 [facility] DTAP 2001 Completed University of 00:00:00 [facility] HIB 4 Dose Schedule 2001 Completed Unive rsity of 00:00:00 [facility] TDAP 2001 Completed University of 00:00:00 [facility] Heamophilus 2001 Completed University of Influenza B 00:00:00 [facility] IPV 2001 Completed University of 00:00:00 [facility] DTAP 2001 Completed University of 00:00:00 [facility] HIB 4 Dose Schedule 2001 Completed Unive rsity of 00:00:00 [facility] TDAP 2001 Completed University of 00:00:00 [facility] Heamophilus 2001 Completed University of Influenza B 00:00:00 [facility] IPV 2001 Completed University of 00:00:00 [facility] DTAP 2001 Completed University of 00:00:00 [facility] HIB 4 Dose Schedule 2001 Completed Unive rsity of 00:00:00 [facility] TDAP 2001 Completed University of 00:00:00 [facility] Heamophilus 2001 Completed University of Influenza B 00:00:00 [facility] IPV 2001 Completed University of 00:00:00 [facility] DTAP 2001 Completed University of 00:00:00 [facility] HIB 4 Dose Schedule 2001 Completed Unive rsity of 00:00:00 [facility] TDAP 2001 Completed University of 00:00:00 [facility] Heamophilus 2001 Completed University of Influenza B 00:00:00 [facility] IPV 2001 Completed University of 00:00:00 [facility] DTAP 2001 Completed University of 00:00:00 [facility] HIB 4 Dose Schedule 2001 Completed Unive rsity of 00:00:00 [facility] TDAP 2001 Completed University of 00:00:00 [facility] Heamophilus 2001 Completed University of Influenza B 00:00:00 [facility] IPV 2001 Completed University of 00:00:00 [facility] DTAP 2001 Completed University of 00:00:00 [facility] HIB 4 Dose Schedule 2001 Completed Unive rsity of 00:00:00 [facility] TDAP 2001 Completed University of 00:00:00 [facility] Heamophilus 2001 Completed University of Influenza B 00:00:00 [facility] IPV 2001 Completed University of 00:00:00 [facility] DTAP 2001 Completed University of 00:00:00 [facility] HIB 4 Dose Schedule 2001 Completed Unive rsity of 00:00:00 [facility] TDAP 2001 Completed University of 00:00:00 [facility] Heamophilus 2001 Completed University of Influenza B 00:00:00 [facility] IPV 2001 Completed University of 00:00:00 [facility] DTAP 2001 Completed University of 00:00:00 [facility] HIB 4 Dose Schedule 2001 Completed Unive rsity of 00:00:00 [facility] TDAP 2001 Completed University of 00:00:00 [facility] Heamophilus 2001 Completed University of Influenza B 00:00:00 [facility] IPV 2001 Completed University of 00:00:00 [facility] DTAP 2001 Completed University of 00:00:00 [facility] HIB 4 Dose Schedule 2001 Completed Unive rsity of 00:00:00 [facility] TDAP 2001 Completed University of 00:00:00 [facility] Heamophilus 2001 Completed University of Influenza B 00:00:00 [facility] IPV 2001 Completed University of 00:00:00 [facility] DTAP 2001 Completed University of 00:00:00 [facility] HIB 4 Dose Schedule 2001 Completed Unive rsity of 00:00:00 [facility] TDAP 2001 Completed University of 00:00:00 [facility] Heamophilus 2001 Completed University of Influenza B 00:00:00 [facility] IPV 2001 Completed University of 00:00:00 [facility] DTAP 2001 Completed University of 00:00:00 [facility] HIB 4 Dose Schedule 2001 Completed Unive rsity of 00:00:00 [facility] TDAP 2001 Completed University of 00:00:00 [facility] Heamophilus 2001 Completed University of Influenza B 00:00:00 [facility] IPV 2001 Completed University of 00:00:00 [facility] Hep B, Adol or Pedi 2001 Completed [...] 2001 Completed Unive rsity of Dosage 00:00:00 [facility] Hep B, Adol or Pedi 2001 Completed Unive rsity of Dosage 00:00:00 [facility] Hep B, Adol or Pedi 2001 Completed Unive rsity of Dosage 00:00:00 [facility] Hep B, Adol or Pedi 2001 Completed Unive rsity of Dosage 00:00:00 [facility] Hep B, Adol or Pedi 2001 Completed Unive rsity of Dosage 00:00:00 [facility] Hep B, Adol or Pedi 2001 Completed Unive rsity of Dosage 00:00:00 [facility] Hep B, Adol or Pedi 2001 Completed Unive rsity of Dosage 00:00:00 [facility] Hep B, Adol or Pedi 2001 Completed Unive rsity of Dosage 00:00:00 [facility] Hep B, Adol or Pedi 2001 Completed Unive rsity of Dosage 00:00:00 [facility] Hep B, Adol or Pedi 2001 Completed Unive rsity of Dosage 00:00:00 [facility] Hep B, Adol or Pedi 2001 Completed Unive rsity of Dosage 00:00:00 [facility] Hep B, Adol or Pedi 2001 Completed Unive rsity of Dosage 00:00:00 [facility] Hep B, Adol or Pedi 2001 Completed Unive rsity of Dosage 00:00:00 [facility] Hep B, Adol or Pedi 2001 Completed Unive rsity of Dosage 00:00:00 [facility] Hep B, Adol or Pedi 2001 Completed Unive rsity of Dosage 00:00:00 [facility] Rho (d) Immune Unknown Completed [facility] Globulin [facility] Influenza Virus Unknown Completed Universit y of Vaccine Quad .5 mL [facility] 6+ MO Branch (FLUZONE/FLULAVAL/FL UARIX) TDAP (ADACEL) Unknown Completed University of VACCINE [facility] MMR Unknown Completed [facility] Rho (d) Immune Unknown Completed University of Globulin [facility] DTAP Unknown Completed [facility] DTAP Unknown Completed [facility] DTAP Unknown Completed [facility] DTAP Unknown Completed [facility] HIB 4 Dose Schedule Unknown [facility] D[facility] Unknown Com[facility] HIB 4 Dose Schedule Unknown [facility] 4 Dose Schedule Unknown [facility] HEPATITIS A Unknown Completed [facility] HEPATITIS A Unknown Completed [facility] Hep B, Adol or Pedi Unknown Completed Unive rsity of Dosage [facility] Hep B, Adol or Pedi Unknown Completed Unive rsity of Dosage [facility] Hep B, Adol or Pedi Unknown Completed Unive rsity Dosage [facility] HPV Unknown Completed [facility] HPV Unknown Completed [facility] Influenza Virus Unknown Completed Universit y of Vaccine [facility] Meningococcal Unknown Completed [facility] Varicella Unknown Completed University of (varivax)(chicken [facility] pox) [facility] MMR Unknown Completed [facility] Varicella Unknown Completed [facility] of (varivax)(chicken [facility] pox[facility] Rho (d) Immune Unknown Completed [facility] TDAP Unknown Completed [facility] Influenza Virus Unknown Completed Universit y of Vaccine Quad IM, [place] [facility] Preserv and ABX Free Bran ch 6 MO-64 YRS (FLUCELVAX) Influenza Virus Unknown Completed Universit y of Vaccine [facility] Influenza Virus Unknown Completed Universit y of Vaccine [facility] Influenza Virus Unknown Completed Universit y of Vaccine [facility] Influenza Virus Unknown Completed Universit y of Vaccine [facility] TDAP Unknown Completed [facility] TDAP Unknown Completed [facility] TDAP Unknown Completed [facility] TDAP Unknown Completed [facility] Heamophilus Unknown Completed [facility] Influenza B [facility] Heamophilus Unknown Completed [facility] Influenza B [facility] Heamophilus Unknown Completed [facility] Influenza B [facility] Heamophilus Unknown Completed [facility] Influenza B [facility] Influenza Virus Unknown Completed Universit y of Vaccine Quad IM 3+ [facility] Influenza Virus Unknown Completed Universit y of Vaccine Quad IM 3+ [facility] YRS [place] Influenza Virus Unknown Completed [facility]it y [facility] Vaccine Nasal [facility] Influenza Virus Unknown Completed Universit y of Vaccine Nasal [facility] IPV Unknown Completed [facility] IPV Unknown Completed [facility] IPV Unknown Completed [facility] Influenza Virus Unknown Completed Universit y of Vaccine [facility] TDAP Unknown Completed [facility] Meningococcal Unknown Completed [facility] jose (groups A, C, Y and Branc h W-135) conjugate vaccine (MCV4P) Vital Signs Vital Name Observation Time Observation Value Comments Source Systolic blood 2023-08-15 13:02:00 105 mm[Hg] Univer sity of pressure [facility] Diastolic blood 2023-08-15 13:02:00 71 mm[Hg] Unive rsity of [email or web address] Heart rate 2023-08-15 13:02:00 76 /min Universi ty [facility] Respiratory rate 2023-08-15 13:02:00 18 /min [facility] Body height 2023-08-15 13:02:00 157.5 cm Universi ty [facility] Body weight 2023-08-15 13:02:00 57.607 kg Universi ty [facility] BMI 2023-08-15 13:02:00 23.23 kg/m2 Universi ty [facility] Systolic blood 2023-05-14 20:46:00 108 mm[Hg] Univer sity of [email or web address] Diastolic blood 2023-05-14 20:46:00 75 mm[Hg] Unive rsity of [email or web address] Heart rate 2023-05-14 20:46:00 102 /min Universi ty [facility] Body temperature 2023-05-14 20:46:00 36.78 Melania [facility] Respiratory rate 2023-05-14 20:46:00 18 /min [facility] Body height 2023-05-14 20:46:00 157.5 cm Universi ty [facility] Body weight 2023-05-14 20:46:00 60.328 kg Universi ty [facility] BMI 2023-05-14 20:46:00 24.33 kg/m2 Universi ty [facility] Systolic blood 2023-02-18 20:19:00 111 mm[Hg] Univer sity of pressure [facility] Diastolic blood 2023-02-18 20:19:00 76 mm[Hg] Unive rsity of pressure [facility] Heart rate 2023-02-18 20:19:00 112 /min Universi ty of [facility] Body temperature 2023-02-18 20:19:00 36.78 Melania Univ ersity of [facility] Respiratory rate 2023-02-18 20:19:00 18 /min Univ ersity of [facility] Body height 2023-02-18 20:19:00 157.5 cm Universi ty of [facility] Body weight 2023-02-18 20:19:00 60.147 kg Universi ty of [facility] BMI 2023-02-18 20:19:00 24.25 kg/m2 Universi ty of [facility] Systolic blood 2022-11-18 20:53:00 100 mm[Hg] Univer sity of pressure [facility] Diastolic blood 2022-11-18 20:53:00 70 mm[Hg] Unive rsity of pressure [facility] Heart rate 2022-11-18 20:53:00 97 /min Universi ty of [facility] Body temperature 2022-11-18 20:53:00 37.06 Melania Univ ersity of [facility] Respiratory rate 2022-11-18 20:53:00 18 /min Univ ersity of [facility] Body height 2022-11-18 20:53:00 157.5 cm Universi ty of [facility] Body weight 2022-11-18 20:53:00 59.421 kg Universi ty of [facility] BMI 2022-11-18 20:53:00 23.96 kg/m2 Universi ty of [facility] Systolic blood 2022-08-26 20:11:00 113 mm[Hg] Univer sity of pressure [facility] Diastolic blood 2022-08-26 20:11:00 80 mm[Hg] Unive rsity of pressure [facility] Heart rate 2022-08-26 20:11:00 91 /min Universi ty of [facility] Body temperature 2022-08-26 20:11:00 36.72 Melania Univ ersity of [facility] Respiratory rate 2022-08-26 20:11:00 16 /min Univ ersity of [facility] Body height 2022-08-26 20:11:00 157.5 cm [facility] [place] Body weight 2022-08-26 20:11:00 57.879 kg Universi ty of [facility] BMI 2022-08-26 20:11:00 23.34 kg/m2 Universi ty of [facility] Branch Systolic blood 2022-07-03 20:26:00 108 mm[Hg] Univer sity of pressure [facility] Diastolic blood 2022-07-03 20:26:00 76 mm[Hg] Unive rsity of pressure [facility] Heart rate 2022-07-03 20:26:00 103 /min Universi ty of [facility] Body temperature 2022-07-03 20:25:00 36.89 Melania [facility] Respiratory rate 2022-07-03 20:25:00 16 /min [facility] Body height 2022-07-03 20:25:00 157.5 cm Universi ty of [facility] Body weight 2022-07-03 20:25:00 58.968 kg Universi ty of [facility] BMI 2022-07-03 20:25:00 23.78 kg/m2 Universi ty of [facility] Oxygen saturation in 2022-07-03 20:25:00 98 /min [facility] Arterial blood by [facility] Pulse oximetry Branch Height 2020-12-01 10:53:00 154.94 CM Weight 2020-12-01 10:53:00 50.8 KG Procedures Procedure Date / Time Performed Performing Clinician [facility] e REFERRAL- 2023-06-03 05:01:00 Doctor Unassigned, No [facility] REQUEST/RESPONSE Name [facility] PATIENT FINANCIAL 2023-02-18 19:57:32 Doctor Unassigned, No [facility] POLICY Name [facility] ASSIGNMENT OF BENEFITS 2022-11-18 20:21:23 Doctor Unassigned, No [facility] Name [facility] Encounters Start End Encounter Admission Attending Care Care Encounter Source Date/Time Date/Time Type Type Clinicians Facility Department ID 2021-09-[address] [facility] [id number] Univers 07:20:36 ity of [facility] 2021-09-[address] [facility] [id number] Univers 07:18:00 ity of [facility] 2021-09-[address] [facility] [id number] Univers 05:25:53 ity of [facility] 2021-09-[address] [facility] [id number] Univers 12:34:55 ity of [facility] 2021-09-10 Outpatient X [facility] ERT [id number] Univers 00:32:19 ity of [facility] 2021-09-[address] [facility] [id number] Univers 00:25:14 ity of [facility] 2021-09-[address] [facility] [id number] Univers 03:49:13 ity of [facility] 2021-09-[address] [facility] [id number] Univers 12:08:59 ity of [facility] 2021-09-06 Outpatient P [facility] JONI [id number] Univers 14:24:34 ity of [facility] 2021-09-06 Outpatient P [facility] JONI [id number] Univers 14:21:12 ity of [facility] 2021-09-06 Outpatient P [facility] JONI [id number] Univers 13:39:14 ity of [facility] 2021-09-06 Outpatient P [facility] JONI [id number] Univers 13:35:43 ity of [facility] 2023-08-15 2023-08-15 Nurse Nurse, [facility] [id number] Univers 08:00:00 08:15:00 [facility] [id number] ity [facility] [id number] Cathy HODGESESSIO [id number] Sd dical [address] 2023-08-15 2023-08-15 Outpatient R ZARINA [facility]ENN[facility]Y [facility] [id number] Univers 08:00:00 08:00:00 ity [facility] 2023-08-14 2023-08-[address] [facility] [id number] Univers 08:15:00 08:15:00 [facility] 2023-07-[address] [facility] [id number] Univers 09:30:00 09:30:00 IDA ity [facility] 2023-06-26 2023-06-26 Outpatient SFA SFA [id number] Dirk 14:44:34 14:44:34 [id number] [facility] 2023-06-11 2023-06-11 Outpatient [facility] [id number] Dirk 10:54:47 10:54:47 [id number] [facility] 2023-06-03 2023-06-03 Orders Doctor JUSTIN [id number] Univers 00:00:00 00:00:00 Only Unassigned, [place] [id number] ity [facility] [id number] Tk as [id number] [address] 2023-05-21 2023-05-21 Outpatient [facility] [id number] Dirk 09:11:27 09:11:27 [id number] [facility] 2023-05-14 2023-05-14 Nurse Nurse, [facility] [id number] Univers 15:30:00 15:45:47 Visit Norma [id number] [id number] [id number] Sd dic[address] 2023-05-14 2023-05-[address] [facility] [id number] Univers 15:30:00 15:30:00 NORMA [facility] 2023-04-30 2023-04-30 Outpatient [facility] [id number] Dirk 14:56:01 14:56:01 [id number] [facility] 2023-04-21 2023-04-21 Outpatient R HINA SANON [facility] U TMB [id number] Univers 16:15:00 16:15:00 HINA SANON [facility] 2023-03-21 2023-03-[address] [facility] [id number] Univers 14:00:00 14:00:00 WENDY [facility] 2023-03-18 2023-03-18 Outpatient [facility] [id number] Dirk 15:33:41 15:33:41 [id number] [facility] 2023-02-28 2023-02-28 Telephone Kennedy Zarina [facility] [id number] Univers 00:00:00 00:00:00 Cam MIGUEL A [id number] i ty of [facility] [id number] [place] [id number] Sd dic[address] 2023-02-18 2023-02-18 Nurse Nurse, [facility] 1.2.840.114 [id number] Univers 15:30:00 15:30:00 Visit Wendy Rivera [id number] ity of [id number] [place] [id number] [address] 2023-02-18 2023-02-[address] [facility] [id number] Univers 15:30:00 15:15:55 WENDY ity [facility] 2023-02-18 2023-02-18 Orders Doctor JUSTIN [id number] Univers 00:00:00 00:00:00 Only Unassigned, [place] [id number] ity of [place] [facility] [id number] Tk as [id number] [address] 2023-02-12 2023-02-12 Outpatient SFA [facility] [id number] Dirk 15:57:07 15:57:07 [id number] F Bjorn 2022-12-31 2022-12-31 Outpatient R KENNEDY ZARINA [facility] [id number] Univers 14:30:00 14:30:00 ity of [facility] 2022-12-28 2022-12-28 Telephone Zarina Kennedy [facility] 1.2.840.114 [id number] Univers 00:00:00 00:00:00 Marcus GRADY 350.1.13.10 i ty of [facility] [place] [id number] [address] 2022-12-23 2022-12-23 Telephone Zarina Kennedy [facility] 1.2.840.114 [id number] Univers 00:00:00 00:00:00 Cam MIGUEL A 350.1.13.10 i ty of [place] [id number] [address] 2022-12-20 2022-12-20 Outpatient [facility] [id number] Dirk 15:45:35 15:45:35 0210 F [place] 2022-12-05 2022-12-05 Outpatient R ZARINA [facility] [id number] Univers 08:00:00 08:00:00 ity of [facility] 2022-11-28 2022-11-28 Telephone OswaldFormerly [facility] 1.2.840.114 [id number] Univers 00:00:00 00:00:00 Wendy GRADY 350.1.13.10 i ty of [place] [id number] [address] 2022-11-21 2022-11-21 Outpatient [facility] [id number] Dirk 08:56:00 08:56:00 0112 F [place] 2022-11-18 2022-11-[address] [facility] [id number] Univers 14:30:00 15:20:30 [facility]-18 2022-11-18 Office OswaldFormerly [facility] 1.2.020.664 [id number] Univers 14:30:00 15:20:30 Visit Wendy GRADY 350.1.13.10 i ty of [place] [id number] [address] 2022-11-18 2022-11-18 Orders Doctor JUSTIN 1.2.840.114 [id number] Univers 00:00:00 00:00:00 Only Unassigned, [place] 350.1.13.10 ity of [place] [facility] 4.2.7.2.686 Tk as [id number] [address] 2022-10-29 2022-10-[address] [facility] [id number] Univers 09:00:00 09:00:00 GUTIERREZ durham [facility] 2022-10-28 2022-10-28 Telephone Lawrence, UNIVERSIT 1.2.840.114 [id number] Univers 00:00:00 00:00:00 Gutierrez HEALTH 350.1.13.10 i ty of [place] [id number] [facility] [address] 2022-10-23 2022-10-23 Telephone Lawrence, UNIVERSIT 1.2.840.114 [id number] Univers 00:00:00 00:00:00 Gutierrez HEALTH 350.1.13.10 i ty of [place] [id number] [facility] [address] 2022-08-26 2022-08-[address] [facility] [id number] Univers 14:30:00 15:11:07 WENDY durham [facility] 2022-08-26 2022-08-26 Nurse Nurse, [facility] 1.2.840.114 [id number] Univers 14:30:00 15:11:07 Visit Wendy Rivera 350.1.13.10 ity of [place] [phone] [address] 2022-07-03 2022-07-03 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 [facility] UN[facility]IT 1.2.840.114 [id number] Univers 17:00:00 17:15:00 Visit Gutierrez Bravo 350.1.13.10 ity of [place] [id number] [facility] [address] 2022-07-03 2022-07-[address] [facility] [id number] Univers 16:00:00 16:06:31 [facility] 2022-07-03 2022-07-03 Office Isha Marie SIT 1.2.840.114 [id number] Univers 16:00:00 16:06:31 Visit Gutierrez Bravo HEALTH 350.1.13.10 ity [place] [id number] [address] 2022-07-03 2022-07-[address] [facility] [id number] Univers 16:00:00 16:06:31 GUTIERREZ [facility] 2022-07-03 2022-07-[address] [facility] [id number] Univers 16:00:00 16:06:31 [facility] 2022-06-19 2022-06-19 Telephone Kermit, UNIVERSIT 1.2.840.114 [id number] Univers 00:00:00 00:00:00 Nephrology Y HEALTH 350.1.13.10 ity [place] [id number] [address] 2022-06-12 2022-06-12 Telephone Kermit, UNIVERSIT 1.2.840.114 [id number] Univers 00:00:00 00:00:00 Nephrology Y HEALTH 350.1.13.10 ity [place] [id number] [address] 2022-06-03 2022-06-[address] [facility] [id number] Univers 14:00:00 14:15:27 WENDY bandar [facility] 2022-06-03 2022-06-03 Nurse Nurse, [facility] 1.2.840.114 [id number] Univers 14:00:00 14:15:27 Visit Wendy Rivera 350.1.13.10 ity [facility] [place] [phone] [address] 2022-04-04 2022-04-[address] [facility] [id number] Univers 15:00:00 15:00:00 WENDY durham [facility] 2022-04-03 2022-04-[address] [facility] [id number] Univers 13:10:05 23:59:00 WENDY durham [facility] 2022-04-032022-04-03 [facility] 1.2.840.114 [id number] Univers 13:00:00 23:59:00 Encounter Wendy MIGUEL A 350.1.13.10 ity of [place] [id number] [facility] [address] 2022-04-03 2022-04-03 [facility] 1.2.637.558 [id number] Univers 00:00:00 00:00:00 Management Wendy MIGUEL A 350.1.13.10 ity of [place] [id number] Sd dical NAL 134 [facility] 2022-04-03 2022-04-03 Orders Doctor JUSTIN 1.2.840.114 [id number] Univers 00:00:00 00:00:00 Only Unassigned, [place] 350.1.13.10 ity of [place] [facility] 4.2.7.2.686 Tk as [id number] [facility] [address] 2022-03-27 2022-03-27 Outpatient R ZARINA [facility]Y [facility] [id number] Univers 09:30:00 09:30:00 ity of [facility] 2022-03-27 2022-03-27 Outpatient R [facility] [id number] Univers 09:30:00 09:30:00 ity of [facility] 2022-03-27 2022-03-[address] [facility] [id number] Univers 09:30:00 09:30:00 ity of [facility] 2022-03-07 2022-03-07 Outpatient R ZARINA [facility]ENN[facility]Y [facility] [id number] Univers 14:00:00 14:18:10 ity [facility] 2022-03-07 2022-03-07 Nurse Nurse, [facility] 1.2.840.114 [id number] Univers 14:00:00 14:18:10 Visit Zarina Kennedy 350.1.13.10 ity of [place] [id number] Sd dical [address] 2022-02-28 2022-02-28 Telephone Nicole [facility] 1.2.840.114 [id number] Univers 00:00:00 00:00:00 Wendy GRADY 350.1.13.10 i ty of [place] [id number] Sd dic[address] 2022-02-26 2022-02-[address] [facility] [id number] Univers 15:00:00 16:12:25 NORMA itbandar of [facility] 2022-02-26 2022-02-26 Office Wendy Rivera [facility] 1.2.840.11 [id number] Univers 15:00:00 16:12:25 Visit Norma Partida 350.1.13.10 ity [facility] [place] [id number] [address] 2021-12-13 2021-12-13 Outpatient R ZARINA [facility]Y [facility] [id number] Univers 10:30:00 10:42:25 ity of [facility] 2021-12-13 2021-12-13 Nurse Nurse, [facility] 1.2.840.114 [id number] Univers 10:30:00 10:42:25 Visit Zarina Kennedy 350.1.13.10 ity [facility] [place]7.[place] [phone] Sd dic[address] 2021-12-13 2021-12-[address] [facility] [id number] Univers 10:30:00 10:30:00 ity of [facility] 2021-12-13 2021-12-13 Orders Doctor ANDERSON 1.2.840.114 [id number] Univers 00:00:00 00:00:00 Only Unassigned, [place] 350.1.13.10 ity of [place] [facility] 4.2.7.2.686 Tk as [id number] [address] 2021-12-07 2021-12-[address] [facility] [facility] [id number] Univers 13:00:00 13:00:00 KARSONSTAN Silverio ity of [facility] 2021-11-28 2021-11-28 Emergency X Pedro ALVARADO [facility] ERT [id number] Univers 12:55:00 16:24:00 ity of [facility] 2021-11-28 2021-11-28 Emergency Pedro Alvarado [facility] 1.2.840.114 [id number] Univers 12:55:00 16:24:00 Cinthia GRADY 350.1.13.10 i ty of [place] [id number] [facility] [address] 2021-11-28 2021-11-28 Orders Doctor JUSTIN 1.2.840.114 [id number] Univers 00:00:00 00:00:00 Only Unassigned, [place] 350.1.13.10 ity of [place] [facility] 4.2.7.2.686 Tk as [id number] [facility] [address] 2021-10-22 2021-10-[address] [facility] [id number] Univers 09:00:00 09:29:56 WENDY durham [facility] 2021-10-22 2021-10-22 Office Nicole [facility] 1.2.629.266 [id number] Univers 08:40:07 09:29:56 Visit Wendy GRADY 350.1.13.10 i ty of [place] [id number] Sd dical [address] 2021-09-27 2021-09-[address] [facility] [id number] Univers 10:30:00 10:53:39 WENDY durham [facility] 2021-09-27 2021-09-27 Routine Zarina Kennedy [facility] 1.2.840.114 [id number] Univers 10:24:13 10:53:39 Wendy Rivera 350.1.13.10 ity of [place] [id number] Sd dical NAL 134 [facility] 2021-09-12 2021-09-12 Telephone Nicole [facility] 1.2.840.114 [id number] Univers 00:00:00 00:00:00 Wendy GRADY 350.1.13.10 i ty of [facility] [place] [phone] Sd dical NAL 134 [facility] 2021-09-10 2021-09-11 Inpatient P ZARINA KENNEDY [facility] ERT [id number] Univers 04:05:00 16:00:00 ity of [facility] 2021-09-10 2021-09-11 Hospital Zarina Kennedy [facility] 1.2.840.114 [id number] Univers 04:05:00 16:00:00 Encounter Marcus GRADY 350.1.13.10 ity of [facility] [place]7.2.[place] [id number] [facility] [address] 2021-09-10 2021-09-10 Anesthesia Jordan Gaspar [facility] 1.2.840.11 [id number] Univers 08:35:00 16:19:00 Event Brando Lee 350.1.13.10 ity of [facility] [place] [place] [id number] [facility] [address] 2021-09-07 2021-09-07 Laboratory Only, Adc Test [facility] 1.2.840. 114 [id number] Univers 10:06:22 10:21:22 Only Zarina Kennedy 350.1.13.10 ity of [facility] [place] [place].2.[place] [id number] [facility] [address] 2021-09-07 2021-09-07 Outpatient R [facility] [facility] [id number] Univers 10:15:00 10:15:00 ity of [facility] 2021-09-06 2021-09-06 Routine Zarina Kennedy [facility] 1.2.107.173 [id number] Univers 11:00:13 11:58:29 Marcus GRADY 350.1.13.10 ity of [place] [phone] Sd dical [address] 2021-09-06 2021-09-06 Outpatient R [facility]INA [facility]Y [facility] [id number] Univers 11:00:00 11:58:29 ity of [facility] 2021-09-04 2021-09-04 [facility] Zarina Kennedy Marcus [facility] 1.2.840.114 [id number] Univers 13:23:00 15:35:00 Encounter Norma Partida 350.1.13.10 ity of [place].2.[place] [phone] [place] [address] 2021-09-04 2021-09-04 Outpatient P ZARINA KENNEDY [facility] ERT [id number] Univers 13:23:00 15:35:00 ity [facility] 2021-09-04 2021-09-[address] [facility] [id number] Univers 11:00:00 12:14:54 WENDY [facility] 2021-09-04 2021-09-04 Routine [facility] 1.2.840.114 [id number] Univers 10:42:04 12:14:54 Wendy Mora 350.1.13.10 i ty of [place] [facility] [place] [id number] [address] 2021-09-04 2021-09-04 Telephone Zarina Kennedy [facility] 1.2.840.114 [id number] Univers 00:00:00 00:00:00 Marcus Grady 350.1.13.10 i ty of [place] [phone] [address] 2021-09-03 2021-09-[address] [facility] [id number] Univers 16:15:00 16:15:00 WENDY durham [facility] 2021-08-27 2021-08-[address] [facility] [id number] Univers 16:30:00 16:30:00 WENDY lamary of [facility] 2021-08-27 2021-08-27 Routine Brent Zarinamarlon Velazquez [facility] 1.2.840.114 [id number] Univers 15:51:06 16:29:15 Oswaldann marieWendy quezada Miguel A 350.1.13.10 ity of Visit [place] [phone] Sd dical nal [address] [place] [address] 2021-08-25 2021-08-25 Hospital Kary O[place] 1.2.840.114 [id number] Univers 22:15:00 23:30:00 Encounter Virgie 350.1.13.10 ity of [place] [id number] [address] 2021-08-25 2021-08-25 Emergency Kary Oseguera [place] 1.2.840.114 [id number] Univers 09:36:00 18:31:00 Miguel A 350.1.13.10 i ty of [place]2.[place] [phone] [address] 2021-08-24 2021-08-24 Telephone Zarina Kennedy [facility] 1.2.840.114 [id number] Univers 00:00:00 00:00:00 Cam Miguel A 350.1.13.10 i ty of [place] [phone] Sd dical nal [address] [place] [address] 2021-08-24 2021-08-24 Telephone Nicole [facility] 1.2.840.114 [id number] Univers 00:00:00 00:00:00 Wendy Grady 350.1.13.10 i ty of [place] [phone] Sd dical nal [address] [place] [address] 2021-08-20 2021-08-20 Routine Bennett Kennedyen [facility] 1.2.210.219 [id number] Univers 08:20:54 09:06:30 Marcus Grady 350.1.13.10 ity of Visit [place] [phone] Sd dical nal 134 [facility] 2021-08-20 2021-08-20 Outpatient [address] [facility] [facility] [id number] Univers 08:00:00 08:00:00 ity of [facility] 2021-08-20 2021-08-20 Telephone Brent [facility] 1.2.840.114 [id number] Univers 00:00:00 00:00:00 Cam Miguel A 350.1.13.10 i ty of [place] [phone] Sd dical nal 134 [facility] 2021-08-20 2021-08-20 Orders Doctor JUSTIN 1.2.840.114 [id number] Univers 00:00:00 00:00:00 Only Unassigned, [place] 350.1.13.10 ity of [place] [facility] 4.2.7.2.686 Tk as [id number] [facility] [address] 2021-08-17 2021-08-17 [facility] Zarina Kennedy [facility] 1.2.840.114 [id number] Univers 19:05:00 21:15:00 Encounter Marcus Grady 350.1.13.10 ity of [place].2.[place] [phone] [facility] [address] 2021-08-17 2021-08-17 Orders Doctor JUSTIN 1.2.840.114 [id number] Univers 00:00:00 00:00:00 Only Unassigned, [place] 350.1.13.10 ity of [place] [facility] 4.2.7.2.686 Tk as [phone] [facility] [address] 2021-08-13 2021-08-[address] [facility] [id number] Univers 16:00:00 16:00:00 WENDY durham of [facility] 2021-08-13 2021-08-13 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 2, Adc Lab [facility] 1.2.840.114 [id number] Univers 13:32:20 13:47:20 Visit Wendy Rivera 350.1.13.10 ity of [place] [phone] Sd dical nal 353 [facility] 2021-08-13 2021-08-13 Routine Nicole [facility] 1.2.611.747 [id number] Univers 12:46:01 13:29:24 Wendy Grady 350.1.13.10 ity of Visit [place] [phone] Sd dical nal 134 [facility] 2021-08-11 2021-08-11 Nurse Lashay Merritt 1.2.840.114 [id number] Univers 00:00:00 00:00:00 Triage [place] 350.1.13.10 it y of HOSPITAL 4.2.7.2.686 Tk as [phone] [facility] [address] 2021-08-03 2021-08-03 Hospital Zarina Kennedy [facility] 1.2.840.114 [id number] Univers 10:23:00 13:15:00 Encounter Norma Partida 350.1.13.10 ity of [place] [phone] [facility] [address] 2021-08-03 2021-08-03 Telephone Zarina Kennedy [facility] 1.2.840.114 [id number] Univers 00:00:00 00:00:00 Marcus Grady 350.1.13.10 i ty of [place] [phone] Sd dical nal 134 [facility] 2021-08-03 2021-08-03 Orders Doctor JUSTIN 1.2.840.114 [id number] Univers 00:00:00 00:00:00 Only Unassigned, [place] 350.1.13.10 ity of [place] [facility] 4.2.7.2.686 Tk as [id number] [facility] [address] 2021-08-01 2021-08-01 Routine KennedyZarina Marcus [facility] 1.2.840.114 [id number] Univers 15:55:38 16:48:02 Vanaphan, Wendy Virgie 350.1.13.10 ity of [place] [phone] Sd dical nal [address] [place] [address] 2021-08-01 2021-08-[address] [facility] [id number] Univers 16:15:00 16:15:00 WENDY ity [facility] 2021-07-20 2021-07-20 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 Ultrasound, [facility] 1.2 .840.114 [id number] Univers 13:13:35 13:57:45 Visit [place]aja [place] 350.1 .13.10 ity of [place].2.[place] [phone] Sd dical nal [address] [place] [address] 2021-07-20 2021-07-[address] [facility] [id number] Univers 13:30:00 13:30:00 ity [facility] 2021-07-18 2021-07-[address] [facility] [id number] Univers 09:45:00 09:45:00 [facility] 2021-07-18 2021-07-[address] [facility] [id number] Univers 08:15:00 08:15:00 ity [facility] 2021-07-17 2021-07-17 Routine Brent [facility] 1.2.390.232 [id number] Univers 15:44:11 16:52:37 Cam Virgie 350.1.13.10 ity of Visit [place] [phone] Sd dical nal [address] [place] [address] 2021-07-17 2021-07-17 Routine Zarina Kennedy [facility] 1.2.384.367 [id number] Univers 15:44:11 16:52:37 Cam Virgie 350.1.13.10 ity of [place] [phone] Sd dical nal [address] [place] [address] 2021-07-17 2021-07-17 Outpatient R KENNEDY, [facility] [id number] Univers 16:15:00 16:15:00 ity of [facility] 2021-07-17 2021-07-17 Orders Doctor JUSTIN 1.2.840.114 [id number] Univers 00:00:00 00:00:00 Only Unassigned, [place] 350.1.13.10 ity of [place] [facility] 4.2.7.2.686 Tk as [phone] [address] 2021-07-17 2021-07-17 Orders Doctor JUSTIN 1.2.840.114 [id number] Univers 00:00:00 00:00:00 Only Unassigned, [place] 350.1.13.10 ity of [place] [facility] 4.2.7.2.686 Tk as [phone] [address] 2021-07-09 2021-07-09 Outpatient R [facility] [id number] Univers 11:15:00 11:15:00 ity of [facility] 2021-07-03 2021-07-03 Telephone Brent [facility] 1.2.840.114 [id number] Univers 00:00:00 00:00:00 Marcus Grady 350.1.13.10 i ty of [place] [phone] Sd dical nal 134 [facility] 2021-07-03 2021-07-03 Telephone [facility] 1.2.840.114 [id number] Univers 00:00:00 00:00:00 Marcus Grady 350.1.13.10 i ty of [place] [phone] Sd dical nal 134 [facility] 2021-06-28 2021-06-28 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 2, Adc Lab [facility] 1.2.840.114 [id number] Univers 10:40:29 10:55:29 Visit BrentBennettmarlon Grady 350.1.13.10 ity of [place].2.[place] [phone] Sd dical nal 353 [facility] 2021-06-28 2021-06-28 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 2, Adc Lab [facility] 1.2.840.114 [id number] Univers 10:40:29 10:55:29 Visit Zarina Kennedy Vir[place] 350.1.13.10 ity of [place] [phone] [facility] 353 [facility] 2021-06-28 2021-06-[address] [facility] [id number] Univers 10:00:00 10:00:00 ity of [facility] 2021-06-28 2021-06-28 Telephone Zarina Kennedy [facility] 1.2.840.114 [id number] Univers 00:00:00 00:00:00 Cam Virgie 350.1.13.10 i ty of [place] [phone] [facility] 134 [facility] 2021-06-25 2021-06-25 Routine Zarina Kennedy NDTEE 1.2.206.322 [id number] Univers 10:31:20 11:38:32 Marcus Jameston 350.1.13.10 ity of [place] [phone] Sd dic[address] 2021-06-25 2021-06-25 Outpatient R [address] [facility]ENN[facility] [facility] [id number] Univers 11:00:00 11:00:00 ity of [facility] 2021-06-11 2021-06-11 Emergency Zarina Kennedy ND[facility] 1.2.840.114 [id number] Univers 17:01:00 19:52:00 Cam Virgie 350.1.13.10 i ty of [place] [phone] [facility] [address] [place] [address] 2021-06-11 2021-06-11 Telephone Zarina Kennedy NDTEE 1.2.840.114 [id number] Univers 00:00:00 00:00:00 Cam Virgie 350.1.13.10 i ty of [place] [phone] [place] dical nal 134 [facility] 2021-06-07 2021-06-07 Telephone Zarina Kennedy [facility] 1.2.840.114 [id number] Univers 00:00:00 00:00:00 Cam Virgie [id number] [id number] [phone] [place]ical [place]al 134 [facility] 2021-05-29 2021-05-29 Nurse Nurse, [facility] 1.2.840.114 [id number] [facility] 15:17:17 15:49:09 Visit Zarina Kennedy Virgie 350.1.13.10 [id number] [phone] [place]ical nal 134 [facility] 2021-05-29 2021-05-29 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 2, [facility] 1.2.840.114 [id number] Univers 15:07:51 15:22:51 Visit Zarina Kennedy Miguel A 350.1.13.10 [id number] [phone] [place] dicpranav nal 353 [facility] 2021-05-29 2021-05-[address] [facility] [id number] Univers 15:00:00 15:00:00 ity of [facility] 2021-05-29 2021-05-29 Telephone Zarina Kennedy [facility] 1.2.840.114 [id number] Univers 00:00:00 00:00:00 Marcus Jameston 350.1.13.10 [id number] [phone] [place] dical nal 134 [facility] 2021-05-28 2021-05-28 Routine Zarina Kennedy [facility] 1.2.933.584 [id number] Univers 13:26:09 14:18:04 Cam Virgie 350.1.13.10 ity of [id number] [phone] [place] dical nal 134 [facility] 2021-05-28 2021-05-28 Outpatient R [facility] [id number] Univers 13:30:00 13:30:00 ity [facility] 2021-05-09 2021-05-[address] [facility] [id number] Univers 11:15:00 11:15:00 WENDY ity [facility] 2021-05-09 2021-05-09 Routine Nicole [facility] [id number] Univers 10:58:18 11:13:18 Wendy Grady 350.1.13.10 ity of [id number] [phone] Sd dic[address] 2021-05-07 2021-05-07 Telephone Zarina Kennedy [facility] 1.2.840.114 [id number] Univers 00:00:00 00:00:00 Cam Miguel A 350.1.13.10 i [id number] [phone] [address] 2021-04-27 2021-04-27 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 Ultrasound, Adc [facility] 1.2 .840.114 [id number] Univers 12:57:28 13:57:28 Visit Kian Gutierrez 350.1.13.10 [id number] [phone] S[place] dic[address] 2021-04-27 2021-04-[address] [facility] [id number] Univers 13:00:00 13:00:00 ity of [facility] 2021-04-24 2021-04-24 Telephone Zarina Kennedy [facility] 1.2.840.114 [id number] Univers 00:00:00 00:00:00 Cam Miguel A 350.1.13.10 i [place] [phone] Sd dic[address] 2021-04-21 2021-04-21 Telemedici Mihai Fernandez [facility] 1.2. 840.114 [id number] Univers 16:26:26 16:59:11 ne Visit Unknown, Attending HEALTH 350.1.13.1 0 [place] of [place] [phone] [facility] [address] [facility] 2021-04-21 2021-04-21 Outpatient R RAVI, [facility] [id number] Univers 16:30:00 16:30:00 ATTENDING ity of [facility] 2021-04-19 2021-04-19 Emergency Kennedy [facility] 1.2.840.114 [id number] Univers 11:49:00 16:10:00 Cam Virgie 350.1.13.10 i [place] [phone] [facility] [address] 2021-04-19 2021-04-19 Telephone Bennett Kennedyen [facility] 1.2.840.114 [id number] Univers 00:00:00 00:00:00 Cam Virgie 350.1.13.10 i [place] [phone] Me dical nal 134 [facility] 2021-04-11 2021-04-11 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 2, Adc Lab [facility] 1.2.840.114 [id number] Univers 13:32:48 13:47:48 Visit Zarina Kennedy Marcus Grady 350.1.13.10 ity of [place] [phone] Me dical nal 353 [facility] 2021-04-11 2021-04-11 Routine Brent [facility] 1.2.113.037 [id number] Univers 13:05:36 13:28:34 Cam Virgie 350.1.13.10 ity of [place] [phone] Sd dical nal 134 [facility] 2021-04-11 2021-04-11 Outpatient R BENNETT KENN[facility] [id number] Univers 13:00:00 13:00:00 ity of [facility] 2021-03-14 2021-03-14 Routine Nicole [facility] 1.2.582.619 [id number] Univers 12:43:31 13:35:28 Wendy Miguel A 350.1.13.10 ity [place] [phone] [address] 2021-03-14 2021-03-14 Routine Nicole NDTEE 1.2.861.297 [id number] 12:43:31 13:35:28 Wendy Grady 350.1.13.10 Visit [place] 4.2.7.2.686 Professio [phone] [address] 2021-03-14 2021-03-[address] [facility] [id number] Univers 13:00:00 13:00:00 WENDY ity of [facility] 2021-02-28 2021-02-28 Telephone Zarina Kennedy [facility] 1.2.840.114 [id number] Univers 00:00:00 00:00:00 Cam Miguel A 350.1.13.10 i [place] [phone] [address] 2021-02-21 2021-02-[address] [facility] [id number] Univers 13:15:00 13:15:00 ity of [facility] 2021-02-21 2021-02-21 Orders Doctor JUSTIN 1.2.840.114 [id number] Univers 00:00:00 00:00:00 Only Unassigned, [place] 350.1.13.10 ity of [place] [facility] 4.2.7.2.686 Tk as [phone] [address] 2021-02-14 2021-02-14 Routine Zarina Kennedy [facility] 1.2.303.769 [id number] Univers 15:01:28 15:58:16 Cam Miguel A 350.1.13.10 ity [place] [phone] [address] 2021-02-14 2021-02-14 Outpatient R ZARINA [facility]ENN[facility]Y [facility] [id number] Univers 15:45:00 15:45:00 ity of [facility] 2021-01-23 2021-01-23 Orders Doctor JUSTIN 1.2.840.114 [id number] Univers 00:00:00 00:00:00 Only Unassigned, [place] 350.1.13.10 ity of [place] [facility] 4.2.7.2.686 Tk as [phone] [address] 2021-01-19 2021-01-19 Telephone Zarina Kennedy [facility] 1.2.840.114 [id number] Univers 00:00:00 00:00:00 Marcus Grady 350.1.13.10 i [place] [phone] Sd dical nal 134 [facility] 2021-01-18 2021-01-18 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 2, Adc Lab [facility] 1.2.840.114 [id number] Univers 14:10:26 14:25:26 Visit Zarina Kennedy 350.1.13.10 it[place] of [place] [phone] Sd dical nal 353 [facility] 2021-01-18 2021-01-[address] [facility] [id number] Univers 14:15:00 14:15:00 ity of [facility] 2021-01-18 2021-01-18 Case Nicole [facility] 1.2.891.859 [id number] Univers 00:00:00 00:00:00 Management Wendy Grady 350.1.13.10 it[place] [phone] Sd dical nal 134 [facility] 2021-01-17 2021-01-[address] [facility] [id number] Univers 09:00:00 09:00:00 ity of [facility] 2021-01-16 2021-01-16 Outpatient R ZARINA [facility]ENN[facility]Y [facility] [id number] Univers 08:45:00 08:45:00 ity of [facility] 2021-01-16 2021-01-16 Telephone Zarina Kennedy [facility] 1.2.840.114 [id number] Univers 00:00:00 00:00:00 Cam Miguel A 350.1.13.10 i [place] [phone] [facility] 134 [facility] 2021-01-15 2021-01-15 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 2, Adc Lab [facility] 1.2.840.114 [id number] Univers 11:32:17 11:47:17 Visit Zarina Kennedy Marcus Grady 350.1.13.10 ity of [place] [phone] [facility] 353 [facility] 2021-01-15 2021-01-15 Initial Zarina Kennedy [facility] 1.2.691.334 [id number] Univers 10:17:01 11:18:23 Marcus Grady 350.1.13.10 ity [place] [phone] [facility] 134 [facility] 2021-01-15 2021-01-15 Outpatient R ZARINA [facility] [id number] Univers 10:00:00 10:00:00 ity of [facility] 2021-01-15 2021-01-15 Telephone Zarina Kennedy [facility] 1.2.840.114 [id number] Univers 00:00:00 00:00:00 Marcus Grady 350.1.13.10 i [place] [phone] [facility] 134 [facility] 2021-01-15 2021-01-15 Orders Doctor JUSTIN 1.2.840.114 [id number] Univers 00:00:00 00:00:00 Only Unassigned, [place] 350.1.13.10 ity of [place] [facility] 4.2.7.2.686 Tk as [phone] [address] 2021-01-13 2021-01-13 Emergency [facility] 1.2.457.907 [id number] Univers 18:29:00 22:52:00 Kary Grady 350.1.13.10 i ty [place] [phone] [address] 2020-12-01 2020-12-01 Emergency E GERMAN CARMEN [facility] [id number] [facility] 10:52:00 12:00:00 Medica [facility] 2020-07-11 2020-07-11 Office Adum, [facility] 1.2.840.114 [id number] Univers 10:39:46 11:22:54 Visit Norma Grady 350.1.13.10 it[place] [facility] [phone] Sd dical [address] 2020-07-11 2020-07-11 Outpatient R ADIRVIN, [facility] [id number] Univers 11:00:00 11:00:00 NORMA durham [facility] 2020-07-11 2020-07-11 Orders Doctor ANDERSON 1.2.840.114 [id number] Univers 00:00:00 00:00:00 Only Unassigned, [place] 350.1.13.10 ity of [place] [facility] 4.2.7.2.686 Tk as [phone] [address] 2020-07-05 2020-07-05 Outpatient R ADIRVIN, [facility] [id number] Univers 16:00:00 16:00:00 NORMA ity [facility] 2020-06-21 2020-06-21 Emergency [facility] 1.2.411.347 [id number] Univers 15:22:00 18:25:00 Viviana Grady 350.1.13.10 ity of [place] [phone] [address] 2020-06-21 2020-06-21 Orders Doctor ANDERSON 1.2.840.114 [id number] Univers 00:00:00 00:00:00 Only Unassigned, [place] 350.1.13.10 ity of [place] [facility] 4.2.7.2.686 Tk as [phone] [address] 2020-05-01 2020-05-01 Orders Doctor JUSTIN 1.2.840.114 [id number] Univers 00:00:00 00:00:00 Only Unassigned, [place] 350.1.13.10 ity of [place] [facility] 4.2.7.2.686 Tk as [phone] [facility] [address] 2020-02-28 2020-02-28 [facility] [id number] Univers 11:00:00 11:00:00 WENDY ity [facility] 2020-02-28 2020-02-28 Telemedici [facility] 1.2.840.114 [id number] Univers 08:13:41 08:28:41 ne Visit Wendy Grady 350.1.13.10 it[place] [phone] [address] 2020-02-26 2020-02-26 Outpatient R RAVI, [facility] [id number] Univers 11:00:00 11:00:00 ATTENDING ity [facility] 2020-02-21 2020-02-21 Telephone [facility] 1.2.840.114 [id number] Univers 00:00:00 00:00:00 Wendy Grady 350.1.13.10 i ty [place] [phone] [address] 2020-02-04 2020-02-04 Telephone [facility] 1.2.840.114 [id number] Univers 00:00:00 00:00:00 Wendy Grady 350.1.13.10 i ty [place] [phone] [address] 2020-02-02 2020-02-02 Refill Zarina Kennedy [facility] 1.2.574.076 [id number] Univers 00:00:00 00:00:00 Marcus Grady 350.1.13.10 i ty [place] [phone] [facility] [address] 2020-01-30 2020-02-01 [facility] Zarina Kennedy [facility] 1.2.840.114 [id number] Univers 23:20:00 13:32:00 Encounter Marcus Grady 350.1.13.10 ity of [place] [phone] [facility] [address] 2020-01-31 2020-01-[address] [facility] [id number] Univers 11:00:00 11:00:00 WENDY ity of [facility] 2020-01-30 2020-01-30 Orders Doctor JUSTIN 1.2.840.114 [id number] Univers 00:00:00 00:00:00 Only Unassigned, [place] 350.1.13.10 ity of [place] [facility] 4.2.7.2.686 Tk as [phone] [facility] [address] 2020-01-28 2020-01-28 Telephone Zarina Kennedy [facility] 1.2.840.114 [id number] Univers 00:00:00 00:00:00 Cam Miguel A 350.1.13.10 i ty [place] [phone] Sd dical nal 134 [facility] 2020-01-24 2020-01-24 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 2, Adc Lab [facility] 1.2.840.114 [id number] Univers 14:38:36 14:53:36 Visit Zarina Kennedy 350.1.13.10 ity of [place] [phone] Sd dical nal 353 [facility] 2020-01-24 2020-01-24 Routine Brent [facility] 1.2.823.790 [id number] Univers 13:22:06 14:11:49 Marcus Grady 350.1.13.10 ity of [place] [phone] Sd dical nal 134 [facility] 2020-01-24 2020-01-24 Outpatient R [address] [facility] [id number] Univers 13:15:00 13:15:00 ity of [facility] 2020-01-24 2020-01-24 Orders Doctor ANDERSON 1.2.840.114 [id number] Univers 00:00:00 00:00:00 Only Unassigned, [place] 350.1.13.10 ity of [place] [facility] 4.2.7.2.686 Tk as [phone] [facility] [address] 2020-01-23 2020-01-23 [facility] Marco A Greco [facility] 1.2.8 40.114 [id number] Univers 03:41:00 07:15:00 Encounter Zarina Kennedy Miguel A 350.1.13.10 ity of [place] [phone] [facility] [address] 2020-01-21 2020-01-22 [facility] 1.2.840.114 [id number] Univers 21:41:00 01:25:00 Encounter Mraco A Miguel A 350.1.13.10 ity of [place] [phone] [address] 2020-01-20 2020-01-20 Case Zarina Kennedy [facility] 1.2.570.899 [id number] Univers 00:00:00 00:00:00 Management Marcus Grady 350.1.13.10 ity of [place] [phone] Sd dic[address] 2020-01-18 2020-01-18 Hospital Zarina Kennedy [facility] 1.2.840.114 [id number] Univers 12:35:00 15:00:00 Encounter Marcus Grady 350.1.13.10 ity of [place] [phone] [address] 2020-01-18 2020-01-18 Outpatient P ZARINA KENNEDY [facility] JONI [id number] Univers 12:35:00 12:35:00 ity of [facility] 2020-01-10 2020-01-10 Routine Nicole [facility] 1.2.428.649 [id number] Univers 13:56:38 14:42:48 Wendy Grady 350.1.13.10 ity [place] [phone] Sd dic[address] 2020-01-10 2020-01-[address] [facility] [id number] Univers 14:00:00 14:00:00 WENDY ity [facility] 2020-01-06 2020-01-06 Outpatient R [facility]AR[facility] [id number] Univers 11:15:00 11:15:00 ity [facility] 2020-01-06 2020-01-06 Nurse Eda Santos 1.2.840.114 [id number] Univers 00:00:00 00:00:00 Triage [place] 350.1.13.10 it y of [facility] 4.2.7.2.686 Tk as [phone] [address] 2019-12-08 2019-12-08 [facility] 1.2.389.995 [id number] Univers 13:39:40 14:27:14 Wendy Grady 350.1.13.10 ity [place] [phone] [address] 2019-11-01 2019-11-01 Office SukiKirill rigginsine [facility] 1.2.8 40.114 [id number] Univers 12:45:26 13:14:04 Visit Jonny Sarah [employer] 350.1.13.10 ity of [facility] 4.2.7.2.686 Tk as MATERNAL [phone] Med ical & CHILD 107 [facility] 2019-07-29 2019-07-29 Telephone Zarina Kennedy [facility] 1.2.840.114 [id number] Univers 00:00:00 00:00:00 Marcus Grady 350.1.13.10 i [place] [phone] [address] 2019-07-28 2019-07-28 Case Zarina Kennedy [facility] 1.2.769.331 [id number] Univers 00:00:00 00:00:00 Management Marcus Grady 350.1.13.10 ity [place] [phone] [address] 2019-07-27 2019-07-27 Nurse Nurse, [facility] [place] 1.2.840.114 [id number] [facility] 15:56:23 16:11:23 Visit Zarina Kennedy Virgie 350.1.13.10 ity of [place] [phone] [address] 2019-07-23 2019-07-23 Telephone Zarina Kennedy [facility] 1.2.840.114 [id number] Univers 00:00:00 00:00:00 Cam Virgie 350.1.13.10 i ty [place] [phone] [address] 2019-07-21 2019-07-21 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 1, [facility] 1.2.840.114 [id number] [facility] 13:20:15 13:35:15 Visit Zarina Kennedy Miguel A 350.1.13.10 ity of [place] [phone] [address] 2019-07-20 2019-07-20 Routine Zarina Kennedy [facility] 1.2.691.332 [id number] [facility] 16:27:05 17:06:12 Marcus Jameston 350.1.13.10 ity of [place] [phone] [address] 2019-07-15 2019-07-15 Telephone Zarina Kennedy [facility] 1.2.840.114 [id number] Univers 00:00:00 00:00:00 Cam Virgie 350.1.13.10 i ty [place] [phone] [address] 2019-07-14 2019-07-14 Telephone Zarina Kennedy [facility] 1.2.840.114 [id number] Univers 00:00:00 00:00:00 Cam Virgie 350.1.13.10 i ty [place] [phone] Sd dical nal [address] [facility] 2019-07-07 2019-07-07 Initial BrentZarina NDTEE 1.2.999.023 [id number] Univers 14:11:07 16:17:14 Cam Miguel A 350.1.13.10 ity [place] [phone] Sd dical nal 134 [facility] 2019-07-07 2019-07-07 Orders Doctor JUSTIN 1.2.840.114 [id number] Univers 00:00:00 00:00:00 Only Unassigned, [place] 350.1.13.10 ity of [place] [facility] 4.2.7.2.686 Tk as [phone] [place] [address] [address] Results This patient has no known results.
[2023-08-25 12:36] LABS: Hematocrit 39.6 % (36.0-45.0); MPV 7.6 fL (7.6-11.3); Platelets 320 thou/uL (152-406); RBC Red Blood Cell Count 4.55 M/uL (3.86-4.86)
[2023-08-25] MEDS ORDERED: EMTRICITABINE/TENOFOVIR 1 TAB PO ONE (12:40)
[2023-08-25 12:53] LABS: Albumin 3.7 g/dL (3.4-5.0); Bilirubin Total 0.3 mg/dL (0.2-1.0); Potassium 3.7 mEq/L (3.5-5.1); Protein, Total 7.5 g/dL (6.4-8.2)
[2023-08-25 15:07] LABS: Specific Gravity 1.025 (1.005-1.030)
[2023-08-25 15:53] LABS: Hepatitis B Core IgM Nonreactive (Nonreactive); Hepatitis B surface AG Interp. Nonreactive (Nonreactive); Hepatitis C Virus Ab Nonreactive (Nonreactive)
--- NOTE | 2023-08-25 16:03 | EDPHYS ---
Physician Documentation [facility] Name: Devi Calvert Age: 22 yrs Sex: Female : 2000 Arrival Date: 08/25/2023 Time: 12:04 Bed 18 Private MD: ED Physician Aguilar Mata HPI: 08/25 12:37 This 22 yrs old Female presents to ER via Ambulatory with complaints of Needle ms3 Stick Exposure. 12:37 22-year-old female with past medical history of anxiety, asthma, depression, IPH, ms3 migraines, schizophrenia presents 30 minutes status post needlestick. Patient states the needle was bent out of the cab. Patient denies any pain. Patient denies nausea, vomiting. Patient states she was stuck in her right index finger. 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 - Social history:: Smoking status: Patient reports the use of cigarette tobacco products, smokes one-half pack cigarettes per day. ROS: 12:37 Constitutional: Negative for fever, and chills. Neck: Negative for injury, pain, and ms3 swelling, Cardiovascular: Negative for chest pain, and palpitations. Respiratory: Negative for shortness of breath, cough, wheezing, and pleuritic chest pain, Abdomen/GI: Negative for abdominal pain, nausea, vomiting, diarrhea, and constipation, MS/Extremity: Negative for injury and deformity, Skin: Negative for injury, rash, and discoloration, 12:37 All other systems are negative, Exam: 12:37 Constitutional: This is a well developed, well nourished patient who is awake, alert, ms3 and in no acute distress. Head/Face: Normocephalic, atraumatic. Chest/axilla: Normal chest wall appearance and motion. Nontender with no deformity. Cardiovascular: Regular rate and rhythm with a normal S1 and S2. No gallops, murmurs, or rubs. Normal PMI, no JVD. No pulse deficits. Respiratory: Lungs have equal breath sounds bilaterally, clear to auscultation and percussion. No rales, rhonchi or wheezes noted. No increased work of breathing, no retractions or nasal flaring. Abdomen/GI: Soft, non-tender, with normal bowel sounds. No distension or tympany. No guarding or rebound. No evidence of tenderness throughout. Skin: Warm, dry with normal turgor. Normal color with no rashes, no lesions, and no evidence of cellulitis. MS/ Extremity: Pulses equal, no cyanosis. Neurovascular intact. Full, normal range of motion. Vital Signs: 12:10 BP 110 / 83; Pulse 91; Resp 17; Temp 98.3; Pulse Ox 100% ; Weight 58.97 kg; ap3 14:34 BP 105 / 68; Pulse 78; Pulse Ox 100% ; ap3 MDM: 12:36 Patient medically screened. ms3 12:36 ED course: Hospital does not have Isentress. Will give patient Rx and instructions to ms3 take after discharge.. 16:58 Data reviewed: vital signs, nurses notes, and as a result, I will discharge patient. I ms3 considered the following discharge prescriptions or medication management in the emergency department Medications were administered in the Emergency Department. See MAR See Rx given. Counseling: I had a detailed discussion with the patient and/or guardian regarding the historical points, exam findings, and any diagnostic results supporting the discharge/admit diagnosis, lab results, the need for outpatient follow up, to return to the emergency department if symptoms worsen or persist or if there are any questions or concerns that arise at home. ED course: Discussed labs and treatment plan with patient. Patient understands and agrees with plan. Patient to follow-up with her primary care physician in 2 to 3 days. Patient given copy of baseline lab results. Patient understands agrees with plan. All questions were answered. Return precautions discussed include worsening symptoms, or any other concerns.. 08/25 12:20 Order name: CBC w/o diff; Complete Time: 13:14 ms3 08/25 12:20 Order name: CMP; Complete Time: 13:14 ms3 08/25 12:20 Order name: HIV Ag/Ab Combo; Complete Time: 14:59 ms3 08/25 12:20 Order name: Test, Urine; Complete Time: 15:38 ms3 08/25 13:46 Order name: Hepatitis Panel; Complete Time: 16:02 ms3 Administered Medications: 12:41 Drug: Emtricitabine-Tenofovir PO 1 tabs PO once Route: PO; nj1 14:26 Follow up: Response: No adverse reaction ap3 12:42 Not Given (Medication unavailable hospital wide, ED physician notified.): Isentress nj1 400 mg PO once Disposition Summary: 08/25/23 16:02 Discharge Ordered Notes: Location: Home ms3 Condition: Stable ms3 Diagnosis - Contact with hypodermic needle, initial encounter ms3 Followup: ms3 - With: Private Physician - When: 2 - 3 days - Reason: Recheck today's complaints, Continuance of care Discharge Instructions: - Discharge Summary Sheet ms3 - Needlestick and Sharps Injury, Pxjo-bz-Yxiy ms3 - Body Fluid Exposure Information ms3 Forms: - Work release form ap3 - Medication Reconciliation Form ms3 - Thank You Letter ms3 - Antibiotic Education ms3 - Prescription Opioid Use ms3 - Patient Portal Instructions ms3 - Leadership Thank You Letter ms3 Prescriptions: - Isentress 400 mg Oral tablet - take 1 tablet ORAL route 2 times per day; 56 tablet; Refills: 0, Product ms3 Selection Permitted - Truvada 200-300 mg Oral tablet - take 1 tablet ORAL route every 24 hours; 28 tablet; Refills: 0, Product ms3 Selection Permitted Signatures: Dispatcher [employer] Rupa Andres RN RN ap3 Aguilar Mata DO DO ms3 Bre Erwin RN RN nj1
--- NOTE | 2023-08-25 16:03 | ER ---
Nurse's Notes [facility] Name: Devi Calvert Age: 22 yrs Sex: Female : 2000 Arrival Date: 08/25/2023 Time: 12:04 Bed 18 Private MD: Diagnosis: Contact with hypodermic needle, initial encounter Presentation: 08/25 12:10 Chief complaint: Patient states: she was at work when she came into contact with a ap3 dirty, used needle. point of contact was on the patients right pointer finger. 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 Coronavirus screen: At this time, the client does not indicate any symptoms associated with coronavirus-19. Ebola Screen: No symptoms or risks identified at this time. Initial Sepsis Screen: Does the patient meet any 2 criteria? No. Patient's initial sepsis screen is negative. Does the patient have a suspected source of infection? Yes: Skin breakdown/wound. Risk Assessment: Do you want to hurt yourself or someone else? Patient reports no desire to harm self or others. Onset of symptoms was August 25, 2023 at 11:50. 12:10 Method Of Arrival: Ambulatory ap3 12:10 Acuity: CHANTAL 3 ap3 Triage Assessment: 12:12 General: Appears in no apparent distress. Behavior is calm, cooperative, appropriate ap3 for age. Pain: Complains of pain in right index finger. Neuro: Level of Consciousness is awake, alert, obeys commands, Oriented to person, place, time, situation. Cardiovascular: Patient's skin is warm and dry. Respiratory: Airway is patent Respiratory effort is even, unlabored, Respiratory pattern is regular, symmetrical. 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 - Social history:: Smoking status: Patient reports the use of cigarette tobacco products, smokes one-half pack cigarettes per day. Screenin:13 [facility] ED Fall Risk Assessment (Adult) History of falling in the last 3 months, ap3 including since admission No falls in past 3 months (0 pts). Abuse screen: Denies threats or abuse. Nutritional screening: No deficits noted. Tuberculosis screening: No symptoms or risk factors identified. Vital Signs: 12:10 BP 110 / 83; Pulse 91; Resp 17; Temp 98.3; Pulse Ox 100% ; Weight 58.97 kg; ap3 14:34 BP 105 / 68; Pulse 78; Pulse Ox 100% ; ap3 ED Course: 12:05 Patient arrived in ED. mr 12:07 Aguilar Mata DO is Attending Physician. ms3 12:10 Rupa Price, RN is Primary Nurse. ap3 12:12 Triage completed. ap3 12:13 Arm band placed on right wrist. ap3 12:14 Patient has correct armband on for positive identification. Bed in low position. Call ap3 light in reach. Side rails up X 1. Pulse ox on. NIBP on. 12:32 Initial lab(s) drawn, by pr, sent to lab. Inserted saline lock: 20 gauge in right ap3 antecubital area, using aseptic technique. Blood collected. 14:26 Hepatitis Panel Sent. ap3 16:12 Provided Education on: discharge instructions. ap3 16:12 No provider procedures requiring assistance completed. IV discontinued, intact, ap3 bleeding controlled, No redness/swelling at site. Pressure dressing applied. Administered Medications: 12:41 Drug: Emtricitabine-Tenofovir PO 1 tabs PO once Route: PO; nj1 14:26 Follow up: Response: No adverse reaction ap3 12:42 Not Given (Medication unavailable hospital wide, ED physician notified.): Isentress nj1 400 mg PO once Medication: 16:12 VIS not applicable for this client. ap3 Outcome: 16:02 Discharge ordered by . ms3 16:12 Discharged to home ambulatory, ap3 16:12 Condition: good 16:12 Discharge instructions given to patient, Instructed on discharge instructions, follow up and referral plans. medication usage, Demonstrated understanding of instructions, follow-up care, medications, Prescriptions given X 2, 16:13 Patient left the ED. ap3 Signatures: Daiana Rebolledo, Reg Reg mr Rupa Price, RN RN ap3 Aguilar Mata DO DO ms3 Bre Erwin RN RN nj1
[2023-08-25 17:07] VITALS: TEMP 98.3; O2SAT 100
[2023-08-25 17:08] VITALS: BP 105/68
== END 2023-08-25 16:13 | disposition home or self-care (01) ==
LOC: ER 12:04
DX: Z20.89 Contact with and (suspected) exposure to other communicable diseases (principal); W46.0XXA Contact with hypodermic needle, initial encounter
CPT/HCPCS: 36415; 81025; 85027; 80053; 87389; 80074; 99284; J3490

== ENCOUNTER 2023-10-04 19:12 | Emergency (ER) | payer BC ==
--- OUTSIDE RECORDS SUMMARY | 2023-10-04 19:22 | XMS REPORT | Continuity of Care Document ---
:2000 Author Organization [facility] t Address [address] [place] [address] Care Team Providers Name Role Phone Reyna Campbell Primary Care Physician ZARINA KENNEDY Attending Clinician Unavailable Nurse, [facility] Attending Clinician Unavailable Zarina Kennedy MD Attending Clinician BRIT LAUREN Attending Clinician Unavailable IDA MAY Attending Clinician Unavailable Doctor Unassigned, [place] Attending Clinician Unavailable Norma Partida MD Attending Clinician ADNORMA BRYAN L Attending Clinician Unavailable HINA SANON Attending Clinician Unavailable HINA SANON Attending Clinician Unavailable WENDY RIVERA Attending Clinician Unavailable Nicole MERAZ, Wendy Attending Clinician GUTIERREZ BRAVO Attending Clinician Unavailable Gutierrez Bravo MD Attending Clinician [facility] Attending Clinician Unavailable Cyn[facility] Attending Clinician [phone] [place], Nephrology Attending Clinician Unavailable STAN TY Attending [...] Mfm Attending Clinician Unavailable Sailaja Aguillon MD, [place] Attending Clinician [phone] Kian Gutierrez MD Attending Clinician Mihai Fernandez MD Attending Clinician Unknown, Attending Attending Clinician Unavailable UNKNOWN, ATTENDING Attending Clinician Unavailable Kary Ronquillo Attending Clinician DR GERMAN CARMEN Attending Clinician Unavailable Viviana Orr NP Attending Clinician Marco A Greco MD Attending [...] Number Effective Date Expiration Date S maurice 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 0-14 it y of disorder disorder 00:00: [place] [facility] History of History of Disease Active 2018-11 U nivers self-harm self-harm 0-14 ity of 00:00: [place] [facility] Bipolar 1 Bipolar 1 Disease Active 2018- Uni vers disorder disorder 8-30 ity of 00:00: [place] [facility] Asthma Asthma Disease Active 2019- Univers 2-01 ity of 00:00: [place] 00 [facility] 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 8-30 [...] Active Univers ALLERGIE Class ity of S [facility] Social History Social Habit Start Date Stop Date Quantity Comments Source Gender identity Universit y of [facility] Sexual orientation Univer sity of [facility] Alcohol intake 2023-08-15 2023-08-15 Ex-drinker University 00:00:00 00:00:00 (finding) [facility] Exposure to 2023-02-08 2023-02-18 Not sure [facility] SARS-CoV-2 (event) 00:00:00 14:56:00 [facility] History of Social 2022-07-03 2022-07-03 Univers ity of function 00:00:00 00:00:00 [facility] Cigarettes smoked 2022-06-03 2022-06-03 Univers ity of current (pack per 00:00:00 00:00:[address] [facility] ) - Reported Branch Tobacco use and 2022-06-03 2022-06-03 Smokeless Universit y of exposure 00:00:00 00:00:00 tobacco non-user [facility] dical [place] Tobacco Comment 2022-06-03 2022-06-03 1/2 PPD Universit y of 00:00:00 00:00:00 [facility] History of tobacco 2019-07-05 Cigarette Smoker University of use 00:00:00 [facility] Sex Assigned At [birth year] Universit y of 00:00:00 00:00:00 [facility] Smoking Status Start Date Stop Date Source Ex-smoker 2022-06-03 00:00:00 2022-06-03 00:00:00 Universi ty of [facility] Medications Ordered Filled Start Stop Current Ordering Indication Dosage Frequency Signature Comments Components Source Medication Medication Date Date Medication? Clinician (SIG) Name Name medroxyPROG 2022-11- No [id number] 150mg Univers ESTERone 008-15 ity of (DEPO-PROVE 14:00: 13:03 [place] RA) syringe 00 :00 Medical 150 mg Branch medroxyPROG 2022-11- No [id number] 150mg 150 mg, Univers ESTERone 0 10-06 Intramuscu ity of (DEPO-PROVE 14:00: 13:03 lar, ONCE, [place] RA) syringe 00 :00 1 dose, On Me dical 150 mg Fri Branch 08/15/23 at 0900, Routine medroxyPROG 2022- No [id number] 150mg Univers ESTERone 05-14 07-05 ity of (DEPO-PROVE 21:30: 20:47 [place] RA) syringe 00 :00 Medical 150 mg Branch medroxyPROG 2022- No [id number] 150mg 150 mg, Univers ESTERone 05-14 07-05 Intramuscu ity of (DEPO-PROVE 21:30: 20:47 lar, ONCE, [place] RA) syringe 00 :00 1 dose, On Me dical 150 mg 05/14/23 Branch at 1630, Routine medroxyPROG 2022- No [id number] 150mg Univers ESTERone 02-18 04-11 ity of (DEPO-PROVE 21:15: 20:22 [place] RA) syringe 00 :00 Medical 150 mg Branch medroxyPROG 2022- No [id number] 150mg 150 mg, Univers ESTERone 02-18 04-11 Intramuscu ity of (DEPO-PROVE 21:15: 20:22 lar, ONCE, [place] RA) syringe 00 :00 1 dose, On [...] of tablet 15:20: tablet Medical Branch albuterol 2022-0 Yes 2{puff} Inhale 2 [...] of tablet 15:20: tablet Medical Branch albuterol 2022-0 Yes 2{puff} Inhale 2 [...] of tablet 15:20: tablet Medical Branch albuterol 2022-0 Yes 2{puff} Inhale 2 [...] [place] 25 [facility] Branch medroxyPROG 2022- No [id number] 150mg Univers ESTERone 11-18 ity of (DEPO-PROVE 22:00: 21:18 [place] RA) syringe 00 :00 Medical 150 mg Branch medroxyPROG 2022- No [id number] 150mg 150 mg, Univers ESTERone 11-18 Intramuscu ity of (DEPO-PROVE 22:00: 21:18 lar, ONCE, [place] RA) syringe 00 :00 1 dose, On Me dical 150 mg 11/18/22 Branch at 1600, Routine medroxyPROG 2022- No [id number] 150mg Univers ESTERone 11-18 ity of (DEPO-PROVE 22:00: 21:18 [place] RA) syringe 00 :00 Medical 150 mg Branch medroxyPROG 2022- No [id number] 150mg 150 mg, Univers ESTERone 11-18 Intramuscu ity of (DEPO-PROVE 22:00: 21:18 lar, ONCE, [place] RA) syringe 00 :00 1 dose, On Me dical 150 mg 11/18/22 Branch at 1600, Routine clindamycin 2022- No [...] 20 mg ity of tablet 14:55: tablet [address] prazosin 1 Yes prazosin 1 U nivers mg capsule 1-09 mg capsule ity of 14:55: [address] ondansetron Yes ondansetro Univers 4 mg tablet 09 n HCl 4 mg it y of 14:55: tablet [place] [address] TAKE 1 Medical TABLET BY [place] MOUTH EVERY 12 HOURS NEEDED ondansetron Yes ondansetro Univers 4 mg -09 n 4 mg ity of disintegrat 14:55: disintegra [facility] tablet 24 ting Medical tablet [place] lurasidone Yes Latuda 20 Un alberto 20 mg 1-09 mg tablet ity of tablet 14:55: [address] Sodium Yes Denta 5000 Unive rs Fluoride, 11-18 Plus 1.1 % ity of Dental Gel, 14:55: cream USE [place] 1.1 % Crea 24 TWICE A Medica l DAY IN THE Branch MORNING AND AT NIGHT. DO NOT EAT OR DRINK FOR AT LEAST 30 MINS fluconazole Yes fluconazol Univers 200 mg 11-18 e 200 mg ity of tablet 14:55: tablet [address] escitalopra Yes escitalopr Univers m oxalate 11-18 am 20 mg ity of 20 mg 14:55: tablet [place] [address] diphenoxyla Yes diphenoxyl Univers te-atropine 11-18 ate-atropi it y of 2.5-0.025 14:55: ne 2.5 [place] mg tablet 24 mg-0.025 Medica l mg tablet [place] dicyclomine Yes dicyclomin Univers 20 mg 11-18 e 20 mg ity of tablet 14:55: tablet [place] 24 TAKE 1 Medical TABLET BY [place] MOUTH EVERY 6 HOURS NEEDED chlorhexidi Yes chlorhexid Univers ne 0.12 % 11-18 ine ity of mouthwash 14:55: gluconate [place] 24 0.12 % Medical mouthwash [place] USE TWICE DAILY busPIRone 5 Yes buspirone U nivers mg tablet 11-18 5 mg ity of 14:55: tablet [address] ARIPiprazol Yes aripiprazo Univers e 5 mg 11-18 le 5 mg ity of tablet 14:55: tablet [address] iron-FA-dha Yes EnLyte 1.5 Univers -epa-FAD-NA - mg ity of DH-be-mv 14:55: [place]-8.73 [place] (EN[place] 24 mg Medical 1.5 mg capsule, Branch iron- 8.73 mediate - mg CpID delay release predniSONE Yes prednisone U nivers 20 mg 11-18 20 mg ity of tablet 14:55: tablet [address] prazosin 1 Yes prazosin 1 U nivers mg capsule 1-09 mg capsule ity of 14:55: [address] ondansetron Yes ondansetro Univers 4 mg tablet 11-18 n HCl 4 mg it y of 14:55: tablet [place] 24 TAKE 1 Medical TABLET BY [place] MOUTH EVERY 12 HOURS NEEDED ondansetron Yes ondansetro Univers 4 mg 11-18 n 4 mg ity of disintegrat 14:55: disintegra [place] ing tablet 24 ting Medical tablet [place] lurasidone Yes Latuda 20 Un alberto 20 mg 11-18 mg tablet ity of tablet 14:55: [address] Sodium Yes Denta 5000 Unive rs Fluoride, 11-18 Plus 1.1 % ity of Dental Gel, 14:55: cream USE [place] 1.1 % Crea 24 TWICE A Medica l DAY IN THE [place] MORNING AND AT NIGHT. DO NOT EAT OR DRINK FOR AT LEAST 30 MINS fluconazole Yes fluconazol Univers 200 mg 11-18 e 200 mg ity of tablet 14:55: tablet [address] escitalopra Yes escitalopr Univers m oxalate 11-18 am 20 mg ity of 20 mg 14:55: tablet [address] diphenoxyla Yes diphenoxyl Univers te-atropine 11-18 ate-atropi it y of 2.5-0.025 14:55: ne 2.5 [place] mg tablet 24 mg-0.025 Medica l mg tablet [place] dicyclomine Yes dicyclomin Univers 20 mg 11-18 e 20 mg ity of tablet 14:55: tablet [place] 24 TAKE 1 Medical TABLET BY [place] MOUTH EVERY 6 HOURS NEEDED chlorhexidi Yes chlorhexid Univers ne 0.12 % 11-18 ine ity of mouthwash 14:55: gluconate [place] 24 0.12 % Medical mouthwash [place] USE TWICE DAILY busPIRone 5 Yes buspirone U nivers mg tablet 11-18 5 mg ity of 14:55: tablet [address] ARIPiprazol Yes aripiprazo Univers e 5 mg 11-18 le 5 mg ity of tablet 14:55: tablet [address] iron-FA-dha Yes EnLyte 1.5 Univers -epa-FAD-NA 11-18 mg ity of DH-be-mv 14:55: [place]8.73 [place] ([place] 24 mg Medical 1.5 mg capsule,im Branch iron- 8.73 mediate - mg CpID delay release predniSONE Yes prednisone U nivers 20 mg 11-18 20 mg ity of tablet 14:55: tablet [address] prazosin 1 Yes prazosin 1 U nivers mg capsule - mg capsule ity of 14:55: [address] ondansetron Yes ondansetro Univers 4 mg tablet 11-18 n HCl 4 mg it y of 14:55: tablet [place] 24 TAKE 1 Medical TABLET BY [place] MOUTH EVERY 12 HOURS NEEDED ondansetron Yes ondansetro Univers 4 mg 11-18 n 4 mg ity of disintegrat 14:55: disintegra [place] ing tablet 24 ting [facility] tablet [place] lurasidone Yes Latuda 20 Un alberto 20 mg 11-18 mg tablet ity of tablet 14:55: [address] Sodium Yes Denta 5000 Unive rs Fluoride, 11-18 Plus 1.1 % ity of Dental Gel, 14:55: cream USE [place] 1.1 % Crea 24 TWICE A Medica l DAY IN THE [place] MORNING AND AT NIGHT. DO NOT EAT OR DRINK FOR AT LEAST 30 MINS fluconazole Yes fluconazol Univers 200 mg 11-18 e 200 mg ity of tablet 14:55: tablet [address] escitalopra Yes escitalopr Univers m oxalate 11-18 am 20 mg ity of 20 mg 14:55: tablet [address] diphenoxyla Yes diphenoxyl Univers te-atropine 11-18 ate-atropi it y of 2.5-0.025 14:55: ne 2.5 [place] mg tablet 24 mg-0.025 Medica l mg tablet [place] dicyclomine Yes dicyclomin Univers 20 mg 11-18 e 20 mg ity of tablet 14:55: tablet [place] [address] TAKE 1 Medical TABLET BY [place] MOUTH EVERY 6 HOURS NEEDED chlorhexidi Yes chlorhexid Univers ne 0.12 % 11-18 ine ity of mouthwash 14:55: gluconate [place] as 24 0.12 % Medical mouthwash [place] USE TWICE DAILY busPIRone 5 Yes buspirone U nivers mg tablet 11-18 5 mg ity of 14:55: tablet [address] ARIPiprazol Yes aripiprazo Univers e 5 mg 11-18 le 5 mg ity of tablet 14:55: tablet [address] iron-FA-dha Yes EnLyte 1.5 Univers -epa-FAD-NA 1-09 mg ity of DH-be-mv 14:55: [place]8.73 [place] ([place] 24 mg Medical 1.5 mg capsule, Branch iron- 8.73 mediate - mg CpID delay release predniSONE Yes prednisone U nivers 20 mg -09 20 mg ity of tablet 14:55: tablet [address] prazosin 1 Yes prazosin 1 U nivers mg capsule -09 mg capsule ity of 14:55: [address] ondansetron Yes ondansetro Univers 4 mg tablet 11-18 n HCl 4 mg it y of 14:55: tablet [place] [address] TAKE 1 Medical TABLET BY [place] MOUTH EVERY 12 HOURS NEEDED ondansetron Yes ondansetro Univers 4 mg 11-18 n 4 mg ity of disintegrat 14:55: disintegra [facility] tablet 24 ting [facility] lurasidone Yes Latuda 20 Un al[place] 20 mg 1-09 mg tablet ity of tablet 14:55: [address] Sodium Yes Denta 5000 Unive rs Fluoride, 11-18 Plus 1.1 % ity of Dental Gel, 14:55: cream USE [place] 1.1 % Crea 24 TWICE A Medica l DAY IN THE [place] MORNING AND AT NIGHT. DO NOT EAT OR DRINK FOR AT LEAST 30 MINS fluconazole Yes fluconazol Univers 200 mg 09 e 200 mg ity of tablet 14:55: tablet [address] escitalopra Yes escitalopr Univers m oxalate 11-18 am 20 mg ity of 20 mg 14:55: tablet [address] diphenoxyla Yes diphenoxyl Univers te-atropine 11-18 ate-atropi it y of 2.5-0.025 14:55: ne 2.5 [place] mg tablet 24 mg-0.025 Medica l mg tablet [place] dicyclomine Yes dicyclomin Univers 20 mg -09 e 20 mg ity of tablet 14:55: tablet [place] 24 TAKE 1 Medical TABLET BY [place] MOUTH EVERY 6 HOURS NEEDED chlorhexidi Yes chlorhexid Univers ne 0.12 % - ine ity of mouthwash 14:55: gluconate [place] 24 0.12 % Medical mouthwash Branch USE TWICE DAILY busPIRone 5 Yes buspirone U nivers mg tablet -09 5 mg ity of 14:55: tablet [address] ARIPiprazol Yes aripiprazo Univers e 5 mg 11-18 le 5 mg ity of tablet 14:55: tablet [address] iron-FA-dha Yes EnLyte 1.5 Univers -epa-FAD-NA - mg ity of DH-be-mv 14:55: [place]-8.73 [place] ([place] 24 mg Medical 1.5 mg capsule,im Branch iron- 8.73 mediate - mg CpID delay release predniSONE Yes prednisone U nivers 20 mg - 20 mg ity of tablet 14:55: tablet [address] prazosin 1 Yes prazosin 1 U nivers mg capsule -09 mg capsule ity of 14:55: [address] ondansetron Yes ondansetro Univers 4 mg tablet 11-18 n HCl 4 mg it y of 14:55: tablet [place] [address] TAKE 1 Medical TABLET BY Branch MOUTH EVERY 12 HOURS NEEDED ondansetron Yes ondansetro Univers 4 mg 09 n 4 mg ity of disintegrat 14:55: disintegra [facility] tablet 24 ting Medical tablet [place] lurasidone Yes Latuda 20 Un alberto 20 mg 1-09 mg tablet ity of tablet 14:55: [address] Sodium Yes Denta 5000 Unive rs Fluoride, 11-18 Plus 1.1 % ity of Dental Gel, 14:55: cream USE [place] 1.1 % Crea 24 TWICE A Medica l DAY IN THE [place] MORNING AND AT NIGHT. DO NOT EAT OR DRINK FOR AT LEAST 30 MINS fluconazole Yes fluconazol Univers 200 mg 1-09 e 200 mg ity of tablet 14:55: tablet [address] escitalopra Yes escitalopr Univers m oxalate 11-18 am 20 mg ity of 20 mg 14:55: tablet [address] diphenoxyla Yes diphenoxyl Univers te-atropine 11-18 ate-atropi it y of 2.5-0.025 14:55: ne 2.5 [place] mg tablet 24 mg-0.025 Medica l mg tablet [place] dicyclomine Yes dicyclomin Univers 20 mg 11-18 e 20 mg ity of tablet 14:55: tablet [place] [address] TAKE 1 Medical TABLET BY Branch MOUTH EVERY 6 HOURS NEEDED chlorhexidi Yes chlorhexid Univers ne 0.12 % 11-18 ine ity of mouthwash 14:55: gluconate [place] as 24 0.12 % Medical mouthwash [place] USE TWICE DAILY busPIRone 5 Yes buspirone U nivers mg tablet 11-18 5 mg ity of 14:55: tablet [address] ARIPiprazol Yes aripiprazo Univers e 5 mg 11-18 le 5 mg ity of tablet 14:55: tablet [address] iron-FA-dha Yes EnLyte 1.5 Univers -epa-FAD-NA - mg ity of DH-be-mv 14:55: [place]8.73 [place] ([place] 24 mg Medical 1.5 mg capsule,im Branch iron- 8.73 mediate - mg CpID delay release predniSONE Yes prednisone U nivers 20 mg 11-18 20 mg ity of tablet 14:55: tablet [address] prazosin 1 Yes prazosin 1 U nivers mg capsule -09 mg capsule ity of 14:55: [address] ondansetron Yes ondansetro Univers 4 mg tablet 11-18 n HCl 4 mg it y of 14:55: tablet [place] 24 TAKE 1 Medical TABLET BY Branch MOUTH EVERY 12 HOURS NEEDED ondansetron Yes ondansetro Univers 4 mg - n 4 mg ity of disintegrat 14:55: disintegra [place] ing tablet 24 ting Medical tablet [place] lurasidone Yes Latuda 20 Un alberto 20 mg -09 mg tablet ity of tablet 14:55: [address] Sodium Yes Denta 5000 Unive rs Fluoride, 11-18 Plus 1.1 % ity of Dental Gel, 14:55: cream USE [place] 1.1 % Crea 24 TWICE A Medica l DAY IN THE [place] MORNING AND AT NIGHT. DO NOT EAT OR DRINK FOR AT LEAST 30 MINS fluconazole Yes fluconazol Univers 200 mg 11-18 e 200 mg ity of tablet 14:55: tablet [address] escitalopra Yes escitalopr Univers m oxalate 11-18 am 20 mg ity of 20 mg 14:55: tablet [address] diphenoxyla Yes diphenoxyl Univers te-atropine 11-18 ate-atropi it y of 2.5-0.025 14:55: ne 2.5 [place] mg tablet 24 mg-0.025 Medica l mg tablet [place] dicyclomine Yes dicyclomin Univers 20 mg 11-18 e 20 mg ity of tablet 14:55: tablet [place] [address] TAKE 1 Medical TABLET BY [place] MOUTH EVERY 6 HOURS NEEDED chlorhexidi Yes chlorhexid Univers ne 0.12 % 11-18 ine ity of mouthwash 14:55: gluconate T[place] 24 0.12 % Medical mouthwash [place] USE TWICE DAILY busPIRone 5 Yes buspirone U nivers mg tablet 11-18 5 mg ity of 14:55: tablet [address] ARIPiprazol Yes aripiprazo Univers e 5 mg 11-18 le 5 mg ity of tablet 14:55: tablet [address] iron-FA-dha Yes EnLyte 1.5 Univers -epa-FAD-NA - mg ity of DH-be-mv 14:55: [place]-8.73 [place] ([place] 24 mg Medical 1.5 mg capsule,im Branch iron- 8.73 mediate - mg CpID delay release predniSONE Yes prednisone U nivers 20 mg 11-18 20 mg ity of tablet 14:55: tablet [address] prazosin 1 Yes prazosin 1 U nivers mg capsule - mg capsule ity of 14:55: [address] ondansetron Yes ondansetro Univers 4 mg tablet 11-18 n HCl 4 mg it y of 14:55: tablet [place] 24 TAKE 1 Medical TABLET BY Branch MOUTH EVERY 12 HOURS NEEDED ondansetron Yes ondansetro Univers 4 mg 11-18 n 4 mg ity of disintegrat 14:55: disintegra [place] ing tablet 24 ting [facility] tablet [place] lurasidone Yes Latuda 20 Un al[place]to 20 mg 11-18 mg tablet ity of tablet 14:55: [address] Sodium Yes Denta 5000 Unive rs Fluoride, 11-18 Plus 1.1 % ity of Dental Gel, 14:55: cream USE [place] 1.1 % Crea 24 TWICE A Medica l DAY IN THE [place] MORNING AND AT NIGHT. DO NOT EAT OR DRINK FOR AT LEAST 30 MINS fluconazole Yes fluconazol Univers 200 mg 11-18 e 200 mg ity of tablet 14:55: tablet [address] escitalopra Yes escitalopr Univers m oxalate 11-18 am 20 mg ity of 20 mg 14:55: tablet [address] diphenoxyla Yes diphenoxyl Univers te-atropine 11-18 ate-atropi it y of 2.5-0.025 14:55: ne 2.5 [place] mg tablet 24 mg-0.025 Medica l mg tablet [place] dicyclomine Yes dicyclomin Univers 20 mg 11-18 e 20 mg ity of tablet 14:55: tablet 24 TAKE 1 Medical TABLET BY [place] MOUTH EVERY 6 HOURS NEEDED chlorhexidi Yes chlorhexid Univers ne 0.12 % 11-18 ine ity of mouthwash 14:55: gluconate [place] as 24 0.12 % Medical mouthwash [place] USE TWICE DAILY busPIRone 5 Yes buspirone U nivers mg tablet 11-18 5 mg ity of 14:55: tablet [address] ARIPiprazol Yes aripiprazo Univers e 5 mg 11-18 le 5 mg ity of tablet 14:55: tablet [address] iron-FA-dha Yes EnLyte 1.5 Univers -epa-FAD-NA 1-09 mg ity of DH-be-mv 14:55: [place]8.73 [place] ([place] 24 mg Medical 1.5 mg capsule,im Branch iron- 8.73 mediate - mg CpID delay release predniSONE Yes prednisone U nivers 20 mg 1-09 20 mg ity of tablet 14:55: tablet [address] prazosin 1 Yes prazosin 1 U nivers mg capsule 1-09 mg capsule ity of 14:55: [address] ondansetron Yes ondansetro Univers 4 mg tablet 11-18 n HCl 4 mg it y of 14:55: tablet [place] [address] TAKE 1 Medical TABLET BY Branch MOUTH EVERY 12 HOURS NEEDED ondansetron Yes ondansetro Univers 4 mg -09 n 4 mg ity of disintegrat 14:55: disintegra [place] ing tablet 24 ting [facility] tablet [place] lurasidone Yes Latuda 20 Un [place] 20 mg 1-09 mg tablet ity of tablet 14:55: [address] Sodium Yes Denta 5000 Unive rs Fluoride, 11-18 Plus 1.1 % ity of Dental Gel, 14:55: cream USE [place] 1.1 % Crea 24 TWICE A Medica l DAY IN THE [place] MORNING AND AT NIGHT. DO NOT EAT OR DRINK FOR AT LEAST 30 MINS fluconazole Yes fluconazol Univers 200 mg -09 e 200 mg ity of tablet 14:55: tablet [address] escitalopra Yes escitalopr Univers m oxalate 11-18 am 20 mg ity of 20 mg 14:55: tablet [address] diphenoxyla Yes diphenoxyl Univers te-atropine 11-18 ate-atropi it y of 2.5-0.025 14:55: ne 2.5 [place] mg tablet 24 mg-0.025 Medica l mg tablet [place] dicyclomine Yes dicyclomin Univers 20 mg -09 e 20 mg ity of tablet 14:55: tablet [place] [address] TAKE 1 Medical TABLET BY Branch MOUTH EVERY 6 HOURS NEEDED chlorhexidi Yes chlorhexid Univers ne 0.12 % - ine ity of mouthwash 14:55: gluconate Tk as 24 0.12 % Medical mouthwash [place] USE TWICE DAILY busPIRone 5 Yes buspirone U nivers mg tablet -09 5 mg ity of 14:55: tablet [address] ARIPiprazol Yes aripiprazo Univers e 5 mg -09 le 5 mg ity of tablet 14:55: tablet [address] iron-FA-dha Yes EnLyte 1.5 Univers -epa-FAD-NA 1-09 mg ity of DH-be-mv 14:55: [place]8.73 [place] ([place] 24 mg Medical 1.5 mg capsule,im Branch iron- 8.73 mediate - mg CpID delay release predniSONE Yes prednisone U nivers 20 mg 1-09 20 mg ity of tablet 14:55: tablet [address] prazosin 1 Yes prazosin 1 U nivers mg capsule 1-09 mg capsule ity of 14:55: [address] ondansetron Yes ondansetro Univers 4 mg tablet -09 n HCl 4 mg it y of 14:55: tablet [place] [address] TAKE 1 Medical TABLET BY Branch MOUTH EVERY 12 HOURS NEEDED ondansetron Yes ondansetro Univers 4 mg -09 n 4 mg ity of disintegrat 14:55: disintegra [place] ing tablet 24 ting Medical tablet [place] lurasidone Yes Latuda 20 Un alberto 20 mg 1-09 mg tablet ity of tablet 14:55: [address] Sodium Yes Denta 5000 Unive rs Fluoride, 11-18 Plus 1.1 % ity of Dental Gel, 14:55: cream USE [place] 1.1 % Crea 24 TWICE A Medica l DAY IN THE [place] MORNING AND AT NIGHT. DO NOT EAT OR DRINK FOR AT LEAST 30 MINS fluconazole Yes fluconazol Univers 200 mg 1-09 e 200 mg ity of tablet 14:55: tablet [address] escitalopra Yes escitalopr Univers m oxalate 11-18 am 20 mg ity of 20 mg 14:55: tablet [place] tablet 24 Medical [place] diphenoxyla Yes diphenoxyl Univers te-atropine 11-18 ate-atropi it y of 2.5-0.025 14:55: ne 2.5 [place] mg tablet 24 mg-0.025 Medica l mg tablet Branch dicyclomine Yes dicyclomin Univers 20 mg 11-18 e 20 mg ity of tablet 14:55: tablet [place] 24 TAKE 1 Medical TABLET BY Branch MOUTH EVERY 6 HOURS NEEDED chlorhexidi Yes chlorhexid Univers ne 0.12 % 11-18 ine ity of mouthwash 14:55: gluconate [place] as 24 0.12 % Medical mouthwash Branch USE TWICE DAILY busPIRone 5 Yes buspirone U nivers mg tablet 11-18 5 mg ity of 14:55: tablet [address] ARIPiprazol Yes aripiprazo Univers e 5 mg 11-18 le 5 mg ity of tablet 14:55: tablet [address] iron-FA-dha Yes EnLyte 1.5 Univers -epa-FAD-NA -09 mg ity of DH-be-mv 14:55: [place]-8.73 [place] ([place] 24 mg Medical 1.5 mg capsule,im Branch iron- 8.73 mediate - mg CpID delay release predniSONE Yes prednisone U nivers 20 mg -09 20 mg ity of tablet 14:55: tablet [address] prazosin 1 Yes prazosin 1 U nivers mg capsule -09 mg capsule ity of 14:55: [address] ondansetron Yes ondansetro Univers 4 mg tablet 11-18 n HCl 4 mg it y of 14:55: tablet [place] 24 TAKE 1 Medical TABLET BY Branch MOUTH EVERY 12 HOURS NEEDED ondansetron Yes ondansetro Univers 4 mg -09 n 4 mg ity of disintegrat 14:55: disintegra [facility] tablet 24 ting Medical tablet Branch lurasidone Yes Latuda 20 Un al[place]to 20 mg 1-09 mg tablet ity of tablet 14:55: [address] Sodium Yes Denta 5000 Unive rs Fluoride, 11-18 Plus 1.1 % ity of Dental Gel, 14:55: cream USE [place] 1.1 % Crea 24 TWICE A Medica l DAY IN THE [place] MORNING AND AT NIGHT. DO NOT EAT OR DRINK FOR AT LEAST 30 MINS fluconazole Yes fluconazol Univers 200 mg - e 200 mg ity of tablet 14:55: tablet 86 [address] escitalopra Yes escitalopr Univers m oxalate 11-18 am 20 mg ity of 20 mg 14:55: tablet [address] diphenoxyla Yes diphenoxyl Univers te-atropine 11-18 ate-atropi it y of 2.5-0.025 14:55: ne 2.5 [place] mg tablet 24 mg-0.025 Medica l mg tablet [place] dicyclomine Yes dicyclomin Univers 20 mg 11-18 e 20 mg ity of tablet 14:55: tablet [place] [address] TAKE 1 Medical TABLET BY [place] MOUTH EVERY 6 HOURS NEEDED chlorhexidi Yes chlorhexid Univers ne 0.12 % 11-18 ine ity of mouthwash 14:55: gluconate [place] as 24 0.12 % Medical mouthwash [place] USE TWICE DAILY busPIRone 5 Yes buspirone U nivers mg tablet 11-18 5 mg ity of 14:55: tablet [address] ARIPiprazol Yes aripiprazo Univers e 5 mg 11-18 le 5 mg ity of tablet 14:55: tablet [address] iron-FA-dha Yes EnLyte 1.5 Univers -epa-FAD-NA -09 mg ity of DH-be-mv 14:55: [place]8.73 [place] ([place] 24 mg Medical 1.5 mg capsule,im Branch iron- 8.73 mediate - mg CpID delay release predniSONE Yes prednisone U nivers 20 mg 11-18 20 mg ity of tablet 14:55: tablet [address] prazosin 1 Yes prazosin 1 U nivers mg capsule -09 mg capsule ity of 14:55: [address] ondansetron Yes ondansetro Univers 4 mg tablet 11-18 n HCl 4 mg it y of 14:55: tablet [place] 24 TAKE 1 Medical TABLET BY Branch MOUTH EVERY 12 HOURS NEEDED ondansetron Yes ondansetro Univers 4 mg 11-18 n 4 mg ity of disintegrat 14:55: disintegra [place] ing tablet 24 ting [facility] lurasidone Yes Latuda 20 Un al[place]to 20 mg -09 mg tablet ity of tablet 14:55: [address] Sodium Yes Denta 5000 Unive rs Fluoride, 11-18 Plus 1.1 % ity of Dental Gel, 14:55: cream USE [place] 1.1 % Crea 24 TWICE A Medica l DAY IN THE [place] MORNING AND AT NIGHT. DO NOT EAT OR DRINK FOR AT LEAST 30 MINS fluconazole Yes fluconazol Univers 200 mg 11-18 e 200 mg ity of tablet 14:55: tablet [address] escitalopra Yes escitalopr Univers m oxalate 11-18 am 20 mg ity of 20 mg 14:55: tablet [address] diphenoxyla Yes diphenoxyl Univers te-atropine 11-18 ate-atropi it y of 2.5-0.025 14:55: ne 2.5 [place] mg tablet 24 mg-0.025 Medica l mg tablet [place] dicyclomine Yes dicyclomin Univers 20 mg 11-18 e 20 mg ity of tablet 14:55: tablet [place] 24 TAKE 1 Medical TABLET BY [place] MOUTH EVERY 6 HOURS NEEDED chlorhexidi Yes chlorhexid Univers ne 0.12 % 11-18 ine ity of mouthwash 14:55: gluconate [place] as 24 0.12 % Medical mouthwash [place] USE TWICE DAILY busPIRone 5 Yes buspirone U nivers mg tablet 11-18 5 mg ity of 14:55: tablet [address] ARIPiprazol Yes aripiprazo Univers e 5 mg 11-18 le 5 mg ity of tablet 14:55: tablet [address] iron-FA-dha Yes EnLyte 1.5 Univers -epa-FAD-NA 11-18 mg ity of DH-be-mv 14:55: [place]8.73 [place] ([place] 24 mg Medical 1.5 mg capsule,im Branch iron- 8.73 mediate - mg CpID delay release miSOPROStoL 3-0 Yes [id number] Take one Univers 200 mcg 1-09 tablet ity of tablet 00:00: night [place] 00 before Medical procedure, Branch then take one tablet morning of procedure miSOPROStoL 2022-0 Yes [id number] Take one Univers 200 mcg 1-09 tablet ity of tablet 00:00: night [place] 00 before Medical procedure, Branch then take one tablet morning of procedure miSOPROStoL 2022-0 Yes [id number] Take one Univers 200 mcg 1-09 tablet ity of tablet 00:00: night [place] 00 before Medical procedure, Branch then take one tablet morning of procedure miSOPROStoL 2022-0 Yes [id number] Take one Univers 200 mcg 1-09 tablet ity of tablet 00:00: night [place] 00 before Medical procedure, Branch then take one tablet morning of procedure miSOPROStoL 2022-0 Yes [id number] Take one Univers 200 mcg 1-09 tablet ity of tablet 00:00: night [place] 00 before Medical procedure, Branch then take one tablet morning of procedure miSOPROStoL 3-0 Yes [id number] Take one Univers 200 mcg 1-09 tablet ity of tablet 00:00: night [place] 00 before Medical procedure, Branch then take one tablet morning of procedure miSOPROStoL 3-0 Yes [id number] Take one Univers 200 mcg 1-09 tablet ity of tablet 00:00: night [place] 00 before Medical procedure, Branch then take one tablet morning of procedure miSOPROStoL 3-0 Yes [id number] Take one Univers 200 mcg 1-09 tablet ity of tablet 00:00: night [place] 00 before Medical procedure, Branch then take one tablet morning of procedure miSOPROStoL 3-0 Yes [id number] Take one Univers 200 mcg 1-09 tablet ity of tablet 00:00: night [place] 00 before Medical procedure, Branch then take one tablet morning of procedure miSOPROStoL 2023-0 Yes [id number] Take one Univers 200 mcg 1-09 tablet ity of tablet 00:00: night [place] 00 before Medical procedure, Branch then take one tablet morning of procedure miSOPROStoL 2023-0 Yes [id number] Take one Univers 200 mcg 1-09 tablet ity of tablet 00:00: night [place] 00 before Medical procedure, Branch then take one tablet morning of procedure medroxyPROG 2021-11- No [id number] 150mg Univers ESTERone 0-17 10-17 ity of (DEPO-PROVE 21:15: 20:14 [facility]) syringe 00 :00 Medical 150 mg Branch medroxyPROG 2021-11- No [id number] 150mg 150 mg, Univers ESTERone 0-17 -17 Intramuscu ity of (DEPO-PROVE 21:15: 20:14 lar, ONCE, [facility]) syringe 00 :00 1 dose, On Me dical 150 mg Mon Branch 08/26/22 at 1615, Routine SUMAtriptan Yes sumatripta Univers 50 mg 8-24 n 50 mg ity of tablet 15:26: tablet [address] sulfamethox Yes sulfametho Univers azole-trime 8-24 xazole 800 it y of thoprim 15:26: mg-trimeth [place] 800-160 mg 51 oprim 160 Medi jose per tablet mg tablet Bran ch predniSONE Yes prednisone U nivers 20 mg 8-24 20 mg ity of tablet 15:26: tablet [address] prazosin 1 Yes prazosin 1 U nivers mg capsule 8-24 mg capsule ity of 15:26: [address] ondansetron Yes ondansetro Univers 4 mg tablet 8-24 n HCl 4 mg it y of 15:26: tablet [place] [address] TAKE 1 Medical TABLET BY [place] MOUTH EVERY 12 HOURS NEEDED ondansetron Yes ondansetro Univers 4 mg 8-24 n 4 mg ity of disintegrat 15:26: disintegra [facility] tablet 51 ting Medical tablet [place] Nitrofurant Yes nitrofuran Univers oin&Nit. 8-24 toin ity of Macrocryst 15:26: monohydrat [place] 100 mg 51 e/macrocry Medical capsule stals 100 Branch mg capsule lurasidone Yes Latuda 20 Un [place] 20 mg 8-24 mg tablet ity of tablet 15:26: [address] Sodium Yes Denta 5000 Unive rs Fluoride, 8-24 Plus 1.1 % ity of Dental Gel, 15:26: cream USE [place] 1.1 % Crea 51 TWICE A Medica l DAY IN THE [place] MORNING AND AT NIGHT. DO NOT EAT OR DRINK FOR AT LEAST 30 MINS fluconazole Yes fluconazol Univers 200 mg 8-24 e 200 mg ity of tablet 15:26: tablet [address] escitalopra Yes escitalopr Univers m oxalate 8-24 am 20 mg ity of 20 mg 15:26: tablet [place] tablet 51 [facility] doxylamine- Yes Diclegis Un [place] pyridoxine, 8-24 [...] tablet 51 mg-0.025 Medica l mg tablet [place] dicyclomine Yes dicyclomin Univers 20 mg 8-24 e 20 mg ity of tablet 15:26: tablet [place] [address] TAKE 1 Medical TABLET BY Branch MOUTH EVERY 6 HOURS NEEDED clindamycin Yes clindamyci Univers 300 mg 8-24 n HCl 300 ity of capsule 15:26: mg capsule [place] 51 Take 1 Medical capsule 3 Branch times a day by oral route for 10 days. ciprofloxac Yes ciprofloxa Univers in HCl 500 8-24 monica 500 mg ity of mg tablet 15:26: tablet [address] chlorhexidi Yes chlorhexid Univers ne 0.12 % 8-24 ine ity of mouthwash 15:26: gluconate [place] 51 0.12 % Medical mouthwash Branch USE TWICE DAILY cephALEXin Yes cephalexin U nivers 500 mg 8-24 500 mg ity of capsule 15:26: capsule [address] busPIRone 5 Yes buspirone U nivers mg tablet 8-24 5 mg ity of 15:26: tablet [address] azithromyci Yes azithromyc Univers n 250 mg 8-24 in 250 mg ity of tablet 15:26: tablet [place] [address] TAKE BY Medical MOUTH 2 Branch TABLETS TODAY THEN 1 TABLE DAILY FOR NEXT 4 DAYS ARIPiprazol Yes aripiprazo Univers e 5 mg 8-24 le 5 mg ity of tablet 15:26: tablet [address] PNV 67-iron Yes Vitafol Uni vers [...] [place] (PRENATABS 51 tablet Medical RX ORAL) [place] iron-FA-dha Yes EnLyte 1.5 Univers -epa-FAD-NA 8-24 [...] 50 mg ity of tablet 15:26: tablet [address] sulfamethox Yes sulfametho Univers azole-trime 8-24 xazole 800 it y of thoprim 15:26: mg-trimeth [place] 800-160 mg 51 oprim 160 Medi jose per tablet mg tablet Bran ch predniSONE Yes prednisone U nivers 20 mg 8-24 20 mg ity of tablet 15:26: tablet [address] prazosin 1 Yes prazosin 1 U nivers mg capsule 8-24 mg capsule ity of 15:26: [address] ondansetron Yes ondansetro Univers 4 mg tablet 8-24 n HCl 4 mg it y of 15:26: tablet [place] 51 TAKE 1 Medical TABLET BY Branch MOUTH EVERY 12 HOURS NEEDED ondansetron Yes ondansetro Univers 4 mg 8-24 n 4 mg ity of disintegrat 15:26: disintegra [place] ing tablet 51 ting Medical tablet [place] Nitrofurant Yes nitrofuran Univers oin&Nit. 8-24 toin ity of Macrocryst 15:26: monohydrat [place] 100 mg 51 e/macrocry Medical capsule stals 100 Branch mg capsule lurasidone Yes Latuda 20 Un [place] 20 mg 8-24 mg tablet ity of tablet 15:26: [address] Sodium Yes Denta 5000 Unive rs Fluoride, 824 Plus 1.1 % ity of Dental Gel, 15:26: cream USE [place] 1.1 % Crea 51 TWICE A Medica l DAY IN THE [place] MORNING AND AT NIGHT. DO NOT EAT OR DRINK FOR AT LEAST 30 MINS fluconazole Yes fluconazol Univers 200 mg 8-24 e 200 mg ity of tablet 15:26: tablet [address] escitalopra Yes escitalopr Univers m oxalate 8-24 am 20 mg ity of 20 mg 15:26: tablet [place] [address] doxylamine- Yes Diclegis Un al[place]to pyridoxine, [...] 20 mg ity of tablet 15:26: tablet [place] [address] TAKE 1 Medical TABLET BY Branch MOUTH EVERY 6 HOURS NEEDED clindamycin Yes clindamyci Univers 300 mg 8-24 n HCl 300 ity of capsule 15:26: mg capsule [place] 51 Take 1 Medical capsule 3 Branch times a day by oral route for 10 days. ciprofloxac Yes ciprofloxa Univers in HCl 500 8-24 monica 500 mg ity of mg tablet 15:26: tablet [address] chlorhexidi Yes chlorhexid Univers ne 0.12 % 8-24 ine ity of mouthwash 15:26: gluconate [place] 51 0.12 % Medical mouthwash Branch USE TWICE DAILY cephALEXin Yes cephalexin U nivers 500 mg 8-24 500 mg ity of capsule 15:26: capsule [address] busPIRone 5 Yes buspirone U nivers mg tablet 8-24 5 mg ity of 15:26: tablet [address] azithromyci Yes azithromyc Univers n 250 mg 8-24 in 250 mg ity of tablet 15:26: tablet [place] [address] TAKE BY Medical MOUTH 2 Branch TABLETS TODAY THEN 1 TABLE DAILY FOR NEXT 4 DAYS ARIPiprazol Yes aripiprazo Univers e 5 mg 8-24 le 5 mg ity of tablet 15:26: tablet [address] PNV 67-iron Yes Vitafol Uni vers [...] 50 mg ity of tablet 15:26: tablet [address] sulfamethox Yes sulfametho Univers azole-trime 8-24 xazole 800 it y of thoprim 15:26: mg-trimeth [place] 800-160 mg 51 oprim 160 Medi jose per tablet mg tablet Bran ch predniSONE Yes prednisone U nivers 20 mg 8-24 20 mg ity of tablet 15:26: tablet [address] prazosin 1 Yes prazosin 1 U nivers mg capsule 8-24 mg capsule ity of 15:26: [address] ondansetron Yes ondansetro Univers 4 mg tablet 8-24 n HCl 4 mg it y of 15:26: tablet [place] [address] TAKE 1 Medical TABLET BY Branch MOUTH EVERY 12 HOURS NEEDED ondansetron Yes ondansetro Univers 4 mg 8-24 n 4 mg ity of disintegrat 15:26: disintegra [facility] tablet 51 ting Medical tablet Branch Nitrofurant Yes nitrofuran Univers oin&Nit. 8-24 toin ity of Macrocryst 15:26: monohydrat [place] 100 mg 51 e/macrocry Medical capsule stals 100 Branch mg capsule lurasidone Yes Latuda 20 Un [place] 20 mg 8-24 mg tablet ity of tablet 15:26: [address] Sodium 2022-0 Yes Denta 5000 Unive rs Fluoride, 8-24 Plus 1.1 % ity of Dental Gel, 15:26: cream USE [place] 1.1 % Crea 51 TWICE A Medica l DAY IN THE Branch MORNING AND AT NIGHT. DO NOT EAT OR DRINK FOR AT LEAST 30 MINS fluconazole Yes fluconazol Univers 200 mg 8-24 e 200 mg ity of tablet 15:26: tablet [address] escitalopra Yes escitalopr Univers m oxalate 8-24 am 20 mg ity of 20 mg 15:26: tablet [place] tablet 51 [facility] doxylamine- Yes Diclegis Un al[place]to pyridoxine, 824 [...] tablet 51 mg-0.025 Medica l mg tablet [place] dicyclomine Yes dicyclomin Univers 20 mg 8-24 e 20 mg ity of tablet 15:26: tablet [place] [address] TAKE 1 Medical TABLET BY Branch MOUTH EVERY 6 HOURS NEEDED clindamycin Yes clindamyci Univers 300 mg 8-24 n HCl 300 ity of capsule 15:26: mg capsule [facility] s 51 Take 1 Medical capsule 3 Branch times a day by oral route for 10 days. ciprofloxac Yes ciprofloxa Univers in HCl 500 8-24 monica 500 mg ity of mg tablet 15:26: tablet [address] chlorhexidi Yes chlorhexid Univers ne 0.12 % 8-24 ine ity of mouthwash 15:26: gluconate [place] 51 0.12 % Medical mouthwash Branch USE TWICE DAILY cephALEXin Yes cephalexin U nivers 500 mg 8-24 500 mg ity of capsule 15:26: capsule [address] busPIRone 5 Yes buspirone U nivers mg tablet 8-24 5 mg ity of 15:26: tablet [address] azithromyci Yes azithromyc Univers n 250 mg 8-24 in 250 mg ity of tablet 15:26: tablet [place] [address] TAKE BY Medical MOUTH 2 Branch TABLETS TODAY THEN 1 TABLE DAILY FOR NEXT 4 DAYS ARIPiprazol Yes aripiprazo Univers e 5 mg 8-24 le 5 mg ity of tablet 15:26: tablet [address] PNV 67-iron Yes Vitafol Uni vers [...] [place] (PRENATABS 51 tablet Medical RX ORAL) [place] iron-FA-dha Yes EnLyte 1.5 Univers -epa-FAD-NA 8-24 [...] 50 mg ity of tablet 15:26: tablet [address] sulfamethox Yes sulfametho Univers azole-trime 8-24 xazole 800 it y of thoprim 15:26: mg-trimeth [place] 800-160 mg 51 oprim 160 Medi jose per tablet mg tablet Bran ch predniSONE Yes prednisone U nivers 20 mg 8-24 20 mg ity of tablet 15:26: tablet [address] prazosin 1 Yes prazosin 1 U nivers mg capsule 8-24 mg capsule ity of 15:26: [address] ondansetron Yes ondansetro Univers 4 mg tablet 8-24 n HCl 4 mg it y of 15:26: tablet [place] 51 TAKE 1 Medical TABLET BY Branch MOUTH EVERY 12 HOURS NEEDED ondansetron Yes ondansetro Univers 4 mg 8-24 n 4 mg ity of disintegrat 15:26: disintegra [place] ing tablet 51 ting Medical tablet [place] Nitrofurant Yes nitrofuran Univers oin&Nit. 8-24 toin ity of Macrocryst 15:26: monohydrat [place] 100 mg 51 e/macrocry Medical capsule stals 100 Branch mg capsule lurasidone Yes Latuda 20 Un [place] 20 mg 8-24 mg tablet ity of tablet 15:26: [address] Sodium Yes Denta 5000 Unive rs Fluoride, 8-24 Plus 1.1 % ity of Dental Gel, 15:26: cream USE [place] 1.1 % Crea 51 TWICE A Medica l DAY IN THE [place] MORNING AND AT NIGHT. DO NOT EAT OR DRINK FOR AT LEAST 30 MINS fluconazole Yes fluconazol Univers 200 mg 8-24 e 200 mg ity of tablet 15:26: tablet [address] escitalopra Yes escitalopr Univers m oxalate 8-24 am 20 mg ity of 20 mg 15:26: tablet [place] tablet [address] [place] [address] doxylamine- Yes Diclegis Un [place]to pyridoxine, 8-24 [...] tablet 51 mg-0.025 Medica l mg tablet [place] dicyclomine Yes dicyclomin Univers 20 mg 8-24 e 20 mg ity of tablet 15:26: tablet [place] [address] TAKE 1 Medical TABLET BY Branch MOUTH EVERY 6 HOURS NEEDED clindamycin Yes clindamyci Univers 300 mg 8-24 n HCl 300 ity of capsule 15:26: mg capsule [place] 51 Take 1 Medical capsule 3 Branch times a day by oral route for 10 days. ciprofloxac Yes ciprofloxa Univers in HCl 500 8-24 mon[place] 500 mg ity of mg tablet 15:26: tablet [address] chlorhexidi Yes chlorhexid Univers ne 0.12 % 8-24 ine ity of mouthwash 15:26: gluconate [place] 51 0.12 % Medical mouthwash Branch USE TWICE DAILY cephALEXin Yes cephalexin U nivers 500 mg 8-24 500 mg ity of capsule 15:26: capsule [address] busPIRone 5 Yes buspirone U nivers mg tablet 8-24 5 mg ity of 15:26: tablet [address] azithromyci Yes azithromyc Univers n 250 mg 8-24 in 250 mg ity of tablet 15:26: tablet [place] [address] TAKE BY Medical MOUTH 2 Branch TABLETS TODAY THEN 1 TABLE DAILY FOR NEXT 4 DAYS ARIPiprazol Yes aripiprazo Univers e 5 mg 8-24 le 5 mg ity of tablet 15:26: tablet [address] PNV 67-iron Yes Vitafol Uni vers [...] [place] (PRENATABS 51 tablet Medical RX ORAL) [place] iron-FA-dha Yes EnLyte 1.5 Univers -epa-FAD-NA 8-24 [...] 50 mg ity of tablet 15:26: tablet [address] sulfamethox Yes sulfametho Univers azole-trime 8-24 xazole 800 it y of thoprim 15:26: mg-trimeth [place] 800-160 mg 51 oprim 160 Medi jose per tablet mg tablet Bran ch predniSONE Yes prednisone U nivers 20 mg 8-24 20 mg ity of tablet 15:26: tablet [address] prazosin 1 Yes prazosin 1 U nivers mg capsule 8-24 mg capsule ity of 15:26: [address] ondansetron Yes ondansetro Univers 4 mg tablet 8-24 n HCl 4 mg it y of 15:26: tablet [place] [address] TAKE 1 Medical TABLET BY Branch MOUTH EVERY 12 HOURS NEEDED ondansetron Yes ondansetro Univers 4 mg 8-24 n 4 mg ity of disintegrat 15:26: disintegra [facility] tablet 51 ting Medical tablet [place] Nitrofurant Yes nitrofuran Univers oin&Nit. 8-24 toin ity of Macrocryst 15:26: monohydrat [place] 100 mg 51 e/macrocry Medical capsule stals 100 Branch mg capsule lurasidone Yes Latuda 20 Un [place] 20 mg 8-24 mg tablet ity of tablet 15:26: [address] Sodium Yes Denta 5000 Unive rs Fluoride, 8-24 Plus 1.1 % ity of Dental Gel, 15:26: cream USE [place] 1.1 % Crea 51 TWICE A Medica l DAY IN THE Branch MORNING AND AT NIGHT. DO NOT EAT OR DRINK FOR AT LEAST 30 MINS fluconazole Yes fluconazol Univers 200 mg 8-24 e 200 mg ity of tablet 15:26: tablet [address] escitalopra Yes escitalopr Univers m oxalate 8-24 am 20 mg ity of 20 mg 15:26: tablet [place] tablet [address] [place] [address] doxylamine- Yes Diclegis Un alberto pyridoxine, 8-24 10 mg-10 ity of vit B6, 15:26: mg [place] 10-10 mg 51 tablet,del Medic al per tablet ayed [place] release TAKE 1 TABLET BY MOUTH THREE TIMES A DAY NEEDED AND 2 AT BEDTIME diphenoxyla Yes diphenoxyl Univers te-atropine 824 ate-atropi it y of 2.5-0.025 15:26: ne 2.5 [place] mg tablet 51 mg-0.025 Medica l mg tablet [place] dicyclomine Yes dicyclomin Univers 20 mg 8-24 e 20 mg ity of tablet 15:26: tablet [place] [address] TAKE 1 Medical TABLET BY [place] MOUTH EVERY 6 HOURS NEEDED clindamycin Yes clindamyci Univers 300 mg 8-24 n HCl 300 ity [facility] capsule 15:[facility]: [facility] 3 Branch times a day by oral route for 10 days. ciprofloxac Yes ciprofloxa Univers in HCl 500 8-24 monica 500 mg ity of mg tablet 15:26: tablet [address] chlorhexidi Yes chlorhexid Univers ne 0.12 % 8-24 ine ity of mouthwash 15:26: gluconate [facility] 0.12 % Medical mouthwash [place] USE TWICE DAILY cephALEXin Yes cephalexin U nivers 500 mg 8-24 500 mg ity of capsule 15:26: capsule [address] busPIRone 5 Yes buspirone U nivers mg tablet 8-24 5 mg ity of 15:26: tablet [address] azithromyci Yes azithromyc Univers n 250 mg 8-24 in 250 mg ity of tablet 15:26: tablet [place] [address] TAKE BY Medical MOUTH 2 Branch TABLETS TODAY THEN 1 TABLE DAILY FOR NEXT 4 DAYS ARIPiprazol Yes aripiprazo Univers e 5 mg 8-24 le 5 mg ity of tablet 15:26: tablet [place] [address] Medical Branch PNV 67-iron Yes Vitafol Uni [...] [place] (PRENATABS 51 tablet Medical RX ORAL) [place] iron-FA-dha Yes EnLyte 1.5 Univers -epa-FAD-NA 8-24 [...] 50 mg ity of tablet 15:26: tablet [address] Branch sulfamethox Yes sulfametho Univers azole-trime 8-24 xazole 800 it y of thoprim 15:26: mg-trimeth [place] 800-160 mg 51 oprim 160 Medi jose per tablet mg tablet Bran ch predniSONE Yes prednisone U nivers 20 mg 8-24 20 mg ity of tablet 15:26: tablet [address] prazosin 1 Yes prazosin 1 U nivers mg capsule 8-24 mg capsule ity of 15:26: [address] ondansetron Yes ondansetro Univers 4 mg tablet 8-24 n HCl 4 mg it y of 15:26: tablet [place] 51 TAKE 1 Medical TABLET BY Branch MOUTH EVERY 12 HOURS NEEDED ondansetron Yes ondansetro Univers 4 mg 8-24 n 4 mg ity of disintegrat 15:26: disintegra [place] ing tablet 51 ting Medical tablet [place] Nitrofurant Yes nitrofuran Univers oin&Nit. 8-24 toin ity of Macrocryst 15:26: monohydrat [place] 100 mg 51 e/macrocry Medical capsule stals 100 Branch mg capsule lurasidone Yes Latuda 20 Un [place] 20 mg 8-24 mg tablet ity of tablet 15:26: [address] Sodium Yes Denta 5000 Unive rs Fluoride, 824 Plus 1.1 % ity of Dental Gel, 15:26: cream USE [place] 1.1 % Crea 51 TWICE A Medica l DAY IN THE [place] MORNING AND AT NIGHT. DO NOT EAT OR DRINK FOR AT LEAST 30 MINS fluconazole Yes fluconazol Univers 200 mg 8-24 e 200 mg ity of tablet 15:26: tablet [address] escitalopra Yes escitalopr Univers m oxalate 8-24 am 20 mg ity of 20 mg 15:26: tablet [place] [address] doxylamine- Yes Diclegis Un alberto pyridoxine, [...] tablet 51 mg-0.025 Medica l mg tablet [place] dicyclomine Yes dicyclomin Univers 20 mg 8-24 e 20 mg ity of tablet 15:26: tablet [place] [address] TAKE 1 Medical TABLET BY Branch MOUTH EVERY 6 HOURS NEEDED clindamycin Yes clindamyci Univers 300 mg 8-24 n HCl 300 ity of capsule 15:26: mg capsule [place] 51 Take 1 Medical capsule 3 Branch times a day by oral route for 10 days. ciprofloxac Yes ciprofloxa Univers in HCl 500 8-24 monica 500 mg ity of mg tablet 15:26: tablet [address] chlorhexidi Yes chlorhexid Univers ne 0.12 % 8-24 ine ity of mouthwash 15:26: gluconate [place] 51 0.12 % Medical mouthwash Branch USE TWICE DAILY cephALEXin Yes cephalexin U nivers 500 mg 8-24 500 mg ity of capsule 15:26: capsule [address] busPIRone 5 Yes buspirone U nivers mg tablet 8-24 5 mg ity of 15:26: tablet [address] azithromyci Yes azithromyc Univers n 250 mg 8-24 in 250 mg ity of tablet 15:26: tablet [place] [address] TAKE BY Medical MOUTH 2 Branch TABLETS TODAY THEN 1 TABLE DAILY FOR NEXT 4 DAYS ARIPiprazol Yes aripiprazo Univers e 5 mg 8-24 le 5 mg ity of tablet 15:26: tablet [address] PNV 67-iron Yes Vitafol Uni vers [...] [place] (PRENATABS 51 tablet Medical RX ORAL) [place] iron-FA-dha Yes EnLyte 1.5 Univers -epa-FAD-NA 8-24 [...] 50 mg ity of tablet 15:26: tablet [address] sulfamethox Yes sulfametho Univers azole-trime 8-24 xazole 800 it y of thoprim 15:26: mg-trimeth [place] 800-160 mg 51 oprim 160 Medi jose per tablet mg tablet Bran ch predniSONE Yes prednisone U nivers 20 mg 8-24 20 mg ity of tablet 15:26: tablet [address] prazosin 1 Yes prazosin 1 U nivers mg capsule 8-24 mg capsule ity of 15:26: [address] ondansetron Yes ondansetro Univers 4 mg tablet 8-24 n HCl 4 mg it y of 15:26: tablet [place] [address] TAKE 1 Medical TABLET BY Branch MOUTH EVERY 12 HOURS NEEDED ondansetron Yes ondansetro Univers 4 mg 8-24 n 4 mg ity of disintegrat 15:26: disintegra [facility] tablet 51 ting Medical tablet Branch Nitrofurant Yes nitrofuran Univers oin&Nit. 8-24 toin ity of Macrocryst 15:26: monohydrat [place] 100 mg 51 e/macrocry Medical capsule stals 100 Branch mg capsule lurasidone Yes Latuda 20 Un [place] 20 mg 8-24 mg tablet ity of tablet 15:26: [address] Sodium Yes Denta 5000 Unive rs Fluoride, 8-24 Plus 1.1 % ity of Dental Gel, 15:26: cream USE [place] 1.1 % Crea 51 TWICE A Medica l DAY IN THE Branch MORNING AND AT NIGHT. DO NOT EAT OR DRINK FOR AT LEAST 30 MINS fluconazole Yes fluconazol Univers 200 mg 8-24 e 200 mg ity of tablet 15:26: tablet [address] escitalopra Yes escitalopr Univers m oxalate 8-24 am 20 mg ity of 20 mg 15:26: tablet [place] [address] doxylamine- Yes Diclegis Un alberto pyridoxine, [...] tablet 51 mg-0.025 Medica l mg tablet [place] dicyclomine Yes dicyclomin Univers 20 mg 8-24 e 20 mg ity of tablet 15:26: tablet [place] [address] TAKE 1 Medical TABLET BY [place] MOUTH EVERY 6 HOURS NEEDED clindamycin Yes clindamyci Univers 300 mg 8-24 n HCl 300 ity of capsule 15:26: mg capsule [place] 51 Take 1 Medical capsule 3 Branch times a day by oral route for 10 days. ciprofloxac Yes ciprofloxa Univers in HCl 500 8-24 monica 500 mg ity of mg tablet 15:26: tablet [address] chlorhexidi Yes chlorhexid Univers ne 0.12 % 8-24 ine ity of mouthwash 15:26: gluconate [place] 51 0.12 % Medical mouthwash Branch USE TWICE DAILY cephALEXin Yes cephalexin U nivers 500 mg 8-24 500 mg ity of capsule 15:26: capsule [address] busPIRone 5 Yes buspirone U nivers mg tablet 8-24 5 mg ity of 15:26: tablet [place] [facility] azithromyci Yes azithromyc Univers n 250 mg 8-24 in 250 mg ity of tablet 15:26: tablet [place] [address] TAKE BY Medical MOUTH 2 Branch TABLETS TODAY THEN 1 TABLE DAILY FOR NEXT 4 DAYS ARIPiprazol Yes aripiprazo Univers e 5 mg 8-24 le 5 mg ity of tablet 15:26: tablet [place] [address] Medical Branch PNV 67-iron Yes Vitafol Uni [...] 50 mg ity of tablet 15:26: tablet [place] [address] Medical Branch SUMAtriptan Yes sumatripta Univers 50 mg 8-24 n 50 mg ity of tablet 15:26: tablet [place] [address] Medical [place] SUMAtriptan Yes sumatripta Univers 50 mg 8-24 n 50 mg ity of tablet 15:26: tablet [address] SUMAtriptan 2021-0 Yes sumatripta Univers 50 mg 8-24 n 50 mg ity of tablet 15:26: tablet [address] SUMAtriptan 2021-0 Yes sumatripta Univers 50 mg 8-24 n 50 mg ity of tablet 15:26: tablet [address] SUMAtriptan 2021-0 Yes sumatripta Univers 50 mg 8-24 n 50 mg ity of tablet 15:26: tablet [address] QUEtiapine 2021-0 Yes Univers 100 mg 4-26 ity of tablet 00:00: [address] FLUoxetine 2021-0 Yes Univers 40 mg 4-26 ity of capsule 00:00: [address] QUEtiapine 2021-0 Yes Univers 100 mg 4-26 ity of tablet 00:00: [address] FLUoxetine 2021-0 Yes Univers 40 mg 4-26 ity of capsule 00:00: [address] QUEtiapine 2021-0 Yes Univers 100 mg 4-26 ity of tablet 00:00: [address] FLUoxetine 2021-0 Yes Univers 40 mg 4-26 ity of capsule 00:00: [address] QUEtiapine 2021-0 Yes Univers 100 mg 4-26 ity of tablet 00:00: [address] FLUoxetine 2021-0 Yes Univers 40 mg 4-26 ity of capsule 00:00: [address] QUEtiapine 2021-0 Yes Univers 100 mg 4-26 ity of tablet 00:00: [address] FLUoxetine 2-0 Yes Univers 40 mg 4-26 ity of capsule 00:00: [address] QUEtiapine 2-0 Yes Univers 100 mg 4-26 ity of tablet 00:00: [address] FLUoxetine 2-0 Yes Univers 40 mg 4-26 ity of capsule 00:00: [address] QUEtiapine 2021-0 Yes Univers 100 mg 4-26 ity of tablet 00:00: [address] FLUoxetine 2021-0 Yes Univers 40 mg 4-26 ity of capsule 00:00: [address] QUEtiapine 2-0 Yes Univers 100 mg 4-26 ity of tablet 00:00: [address] FLUoxetine 2021-0 Yes Univers 40 mg 4-26 ity of capsule 00:00: [place] [facility] QUEtiapine 2022-0 Yes Univers 100 mg 4-26 ity of tablet 00:00: [place] [facility] FLUoxetine 2022-0 Yes Univers 40 mg 4-26 ity of capsule 00:00: [place] [facility] QUEtiapine 2022-0 Yes Univers 100 mg 4-26 ity of tablet 00:00: [place] [facility] FLUoxetine 2022-0 Yes Univers 40 mg 4-26 ity of capsule 00:00: [address] QUEtiapine 2022-0 Yes Univers 100 mg 4-26 ity of tablet 00:00: [address] Branch FLUoxetine 2022-0 Yes Univers 40 mg 4-26 ity of capsule 00:00: [address] QUEtiapine 2022-0 Yes Univers 100 mg 4-26 ity of tablet 00:00: [address] FLUoxetine 2022-0 Yes Univers 40 mg 4-26 ity of capsule 00:00: [address] QUEtiapine 2022-0 Yes Univers 100 mg 4-26 ity of tablet 00:00: [address] Branch FLUoxetine 2022-0 Yes Univers 40 mg 4-26 ity of capsule 00:00: [address] QUEtiapine 2022-0 Yes Univers 100 mg 4-26 ity of tablet 00:00: [address] FLUoxetine 2022-0 Yes Univers 40 mg 4-26 ity of capsule 00:00: [address] QUEtiapine 2022-0 Yes Univers 100 mg 4-26 ity of tablet 00:00: [address] FLUoxetine 2022-0 Yes Univers 40 mg 4-26 ity of capsule 00:00: [address] QUEtiapine 2022-0 Yes Univers 100 mg 4-26 ity of tablet 00:00: [address] FLUoxetine 2022-0 Yes Univers 40 mg 4-26 ity of capsule 00:00: [address] QUEtiapine 2022-0 Yes Univers 100 mg 4-26 ity of tablet 00:00: [address] FLUoxetine 2022-0 Yes Univers 40 mg 4-26 ity of capsule 00:00: [address] QUEtiapine 2022-0 Yes Univers 100 mg 4-26 ity of tablet 00:00: [address] FLUoxetine 2022-0 Yes Univers 40 mg 4-26 ity of capsule 00:00: [facility] cetirizine 2021-0 Yes 10mg Take 10 mg U nivers 10 mg 4-18 by mouth ity of tablet 00:00: daily. [place] [facility] cetirizine 2021-0 Yes 10mg Take 10 mg U nivers 10 mg 4-18 by mouth ity of tablet 00:00: daily. [place] [facility] cetirizine 2021-0 Yes 10mg Take 10 mg U nivers 10 mg 4-18 by mouth ity of tablet 00:00: daily. [place] [facility] cetirizine 2021-0 Yes 10mg Take 10 mg U nivers 10 mg 4-18 by mouth ity of tablet 00:00: daily. [place] [facility] cetirizine 2021-0 Yes 10mg Take 10 mg U nivers 10 mg 4-18 by mouth ity of tablet 00:00: daily. [place] [facility] cetirizine 2021-0 Yes 10mg Take 10 mg U nivers 10 mg 4-18 by mouth ity of tablet 00:00: daily. [place] [facility] cetirizine 2021-0 Yes 10mg Take 10 mg U nivers 10 mg 4-18 by mouth ity of tablet 00:00: daily. [place] [facility] cetirizine 2021-0 Yes 10mg Take 10 mg U nivers 10 mg 4-18 by mouth ity of tablet 00:00: daily. [place] [facility] cetirizine 2021-0 Yes 10mg Take 10 mg U nivers 10 mg 4-18 by mouth ity of tablet 00:00: daily. [place] [facility] cetirizine 2021-0 Yes 10mg Take 10 mg U nivers 10 mg 4-18 by mouth ity of tablet 00:00: daily. [place] [facility] cetirizine 2021-0 Yes 10mg Take 10 mg U nivers 10 mg 4-18 by mouth ity of tablet 00:00: daily. [place] [facility] cetirizine 2021-0 Yes 10mg Take 10 mg U nivers 10 mg 4-18 by mouth ity of tablet 00:00: daily. [place] [facility] cetirizine 2021-0 Yes 10mg Take 10 mg U nivers 10 mg 4-18 by mouth ity of tablet 00:00: daily. [place] [facility] cetirizine Yes 10mg Take 10 mg U nivers 10 mg 4-18 by mouth ity of tablet 00:00: daily. [place] [facility] cetirizine 0 Yes 10mg Take 10 mg U nivers 10 mg 4-18 by mouth ity of tablet 00:00: daily. [place] [facility] cetirizine 0 Yes 10mg Take 10 mg U nivers 10 mg 4-18 by mouth ity of tablet 00:00: daily. [place] [facility] cetirizine 0 Yes 10mg Take 10 mg U nivers 10 mg 4-18 by mouth ity of tablet 00:00: daily. [place] [facility] cetirizine Yes 10mg Take 10 mg U nivers 10 mg 4-18 by mouth ity of tablet 00:00: daily. [address] albuterol 2020-11 Yes 2{puff} Inhale 2 U [...] Branch MOUTH EVERY DAY docusate 2020-11 Yes [id number] 240mg Take 1 U nivers calcium 240 1-02 capsule by it y of mg capsule 00:00: mouth once [place] 00 daily as Medical needed for Branch Constipati on. ferrous 2020-11 Yes [id number] 325mg Take 1 Un alberto sulfate 325 1-02 tablet by ity of mg (65 mg 00:00: mouth 2 [place] iron) 00 (two) Medical tablet times Branch daily. docusate 2020-11 Yes [id number] 240mg Take 1 U nivers calcium 240 1-02 capsule by it y of mg capsule 00:00: mouth once [place] 00 daily as Medical needed for Branch Constipati on. ferrous 2020-11 Yes [id number] 325mg Take 1 Un alberto sulfate 325 1-02 tablet by ity of mg (65 mg 00:00: mouth 2 [place] iron) 00 (two) Medical tablet times Branch daily. docusate 2020-11 Yes [id number] 240mg Take 1 U nivers calcium 240 1-02 capsule by it y of mg capsule 00:00: mouth once [place] 00 daily as Medical needed for Branch Constipati on. ferrous 2020-11 Yes [id number] 325mg Take 1 Un alberto sulfate 325 1-02 tablet by ity of mg (65 mg 00:00: mouth 2 [place] iron) 00 (two) Medical tablet times Branch daily. docusate 2020-11 Yes [id number] 240mg Take 1 U nivers calcium 240 1-02 capsule by it y of mg capsule 00:00: mouth once [place] 00 daily as Medical needed for Branch Constipati on. ferrous 2020-11 Yes [id number] 325mg Take 1 Un alberto sulfate 325 1-02 tablet by ity of mg (65 mg 00:00: mouth 2 [place] iron) 00 (two) Medical tablet times Branch daily. docusate 2020-11 Yes [id number] 240mg Take 1 U nivers calcium 240 1-02 capsule by it y of mg capsule 00:00: mouth once [place] 00 daily as Medical needed for Branch Constipati on. ferrous 2020-11 Yes [id number] 325mg Take 1 Un alberto sulfate 325 1-02 tablet by ity of mg (65 mg 00:00: mouth 2 [place] iron) 00 (two) Medical tablet times Branch daily. docusate 2020-11 Yes [id number] 240mg Take 1 U nivers calcium 240 1-02 capsule by it y of mg capsule 00:00: mouth once [place] 00 daily as Medical needed for Branch Constipati on. ferrous 2020-11 Yes [id number] 325mg Take 1 Un alberto sulfate 325 1-02 tablet by ity of mg (65 mg 00:00: mouth 2 [place] iron) 00 (two) Medical tablet times Branch daily. docusate 2020-11 Yes [id number] 240mg Take 1 U nivers calcium 240 1-02 capsule by it y of mg capsule 00:00: mouth once [place] 00 daily as Medical needed for Branch Constipati on. ferrous 2020-11 Yes [id number] 325mg Take 1 Un alberto sulfate 325 1-02 tablet by ity of mg (65 mg 00:00: mouth 2 [place] iron) 00 (two) Medical tablet times Branch daily. docusate 2020-11 Yes [id number] 240mg Take 1 U nivers calcium 240 1-02 capsule by it y of mg capsule 00:00: mouth once [place] 00 daily as Medical needed for Branch Constipati on. ferrous 2020-11 Yes [id number] 325mg Take 1 Un alberto sulfate 325 1-02 tablet by ity of mg (65 mg 00:00: mouth 2 [place] iron) 00 (two) Medical tablet times Branch daily. docusate 2020-11 Yes [id number] 240mg Take 1 U nivers calcium 240 1-02 capsule by it y of mg capsule 00:00: mouth once [place] 00 daily as Medical needed for Branch Constipati on. ferrous 2020-11 Yes [id number] 325mg Take 1 Un alberto sulfate 325 1-02 tablet by ity of mg (65 mg 00:00: mouth 2 [place] iron) 00 (two) Medical tablet times Branch daily. docusate 2020-11 Yes [id number] 240mg Take 1 U nivers calcium 240 1-02 capsule by it y of mg capsule 00:00: mouth once [place] 00 daily as Medical needed for Branch Constipati on. ferrous 2020-11 Yes [id number] 325mg Take 1 Un alberto sulfate 325 1-02 tablet by ity of mg (65 mg 00:00: mouth 2 [place] iron) 00 (two) Medical tablet times Branch daily. docusate 2020-11 Yes [id number] 240mg Take 1 U nivers calcium 240 1-02 capsule by it y of mg capsule 00:00: mouth once [place] 00 daily as Medical needed for Branch Constipati on. ferrous 2020-11 Yes [id number] 325mg Take 1 Un alberto sulfate 325 1-02 tablet by ity of mg (65 mg 00:00: mouth 2 [place] iron) 00 (two) Medical tablet times Branch daily. docusate 2020-11 Yes [id number] 240mg Take 1 U nivers calcium 240 1-02 capsule by it y of mg capsule 00:00: mouth once [place] 00 daily as Medical needed for Branch Constipati on. ferrous 2020-11 Yes [id number] 325mg Take 1 Un alberto sulfate 325 1-02 tablet by ity of mg (65 mg 00:00: mouth 2 [place] iron) 00 (two) Medical tablet times Branch daily. docusate 2020-11 Yes [id number] 240mg Take 1 U nivers calcium 240 1-02 capsule by it y of mg capsule 00:00: mouth once [place] 00 daily as Medical needed for Branch Constipati on. ferrous 2020-11 Yes [id number] 325mg Take 1 Un alberto sulfate 325 1-02 tablet by ity of mg (65 mg 00:00: mouth 2 [place] iron) 00 (two) Medical tablet times Branch daily. docusate 2020-11 Yes [id number] 240mg Take 1 U nivers calcium 240 1-02 capsule by it y of mg capsule 00:00: mouth once [place] 00 daily as Medical needed for Branch Constipati on. ferrous 2020-11 Yes [id number] 325mg Take 1 Un alberto sulfate 325 1-02 tablet by ity of mg (65 mg 00:00: mouth 2 [place] iron) 00 (two) Medical tablet times Branch daily. docusate 2020-11 Yes [id number] 240mg Take 1 U nivers calcium 240 1-02 capsule by it y of mg capsule 00:00: mouth once [place] 00 daily as Medical needed for Branch Constipati on. ferrous 2020-11 Yes [id number] 325mg Take 1 Un alberto sulfate 325 1-02 tablet by ity of mg (65 mg 00:00: mouth 2 [place] iron) 00 (two) Medical tablet times Branch daily. docusate 2020-11 Yes [id number] 240mg Take 1 U nivers calcium 240 1-02 capsule by it y of mg capsule 00:00: mouth once [place] 00 daily as Medical needed for Branch Constipati on. ferrous 2020-11 Yes [id number] 325mg Take 1 Un alberto sulfate 325 1-02 tablet by ity of mg (65 mg 00:00: mouth 2 [place] iron) 00 (two) Medical tablet times Branch daily. docusate 2020-11 Yes [id number] 240mg Take 1 U nivers calcium 240 1-02 capsule by it y of mg capsule 00:00: mouth once [place] 00 daily as Medical needed for Branch Constipati on. ferrous 2020-11 Yes [id number] 325mg Take 1 Un alberto sulfate 325 1-02 tablet by ity of mg (65 mg 00:00: mouth 2 [place] iron) 00 (two) Medical tablet times Branch daily. docusate 2020-11 Yes [id number] 240mg Take 1 U nivers calcium 240 1-02 capsule by it y of mg capsule 00:00: mouth once [place] 00 daily as Medical needed for Branch Constipati on. ferrous 2020-11 Yes [id number] 325mg Take 1 Un alberto sulfate 325 1-02 tablet by ity of mg (65 mg 00:00: mouth 2 [place] iron) 00 (two) Medical tablet times [place] daily. QUEtiapine 2018-11 Yes 50mg Take 50 mg U nivers 50 mg 1-25 by mouth ity of tablet 00:00: daily. [address] QUEtiapine 2018-11 Yes 50mg Take 50 mg U nivers 50 mg 1-25 by mouth ity of tablet 00:00: daily. [address] QUEtiapine 2018-11 Yes 50mg Take 50 mg U nivers 50 mg 1-25 by mouth ity of tablet 00:00: daily. [address] QUEtiapine 2018-11 Yes 50mg Take 50 mg U nivers 50 mg 1-25 by mouth ity of tablet 00:00: daily. [address] QUEtiapine 2018-11 Yes 50mg Take 50 mg U nivers 50 mg 1-25 by mouth ity of tablet 00:00: daily. [address] QUEtiapine 2018-11 Yes 50mg Take 50 mg U nivers 50 mg 1-25 by mouth ity of tablet 00:00: daily. [address] QUEtiapine 2018-11 Yes 50mg Take 50 mg U nivers 50 mg 1-25 by mouth ity of tablet 00:00: daily. [address] QUEtiapine 2018-11 Yes 50mg Take 50 mg U nivers 50 mg 1-25 by mouth ity of tablet 00:00: daily. [address] QUEtiapine 2018-11 Yes 50mg Take 50 mg U nivers 50 mg 1-25 by mouth ity of tablet 00:00: daily. [address] QUEtiapine 2018-11 Yes 50mg Take 50 mg U nivers 50 mg 1-25 by mouth ity of tablet 00:00: daily. [place] [facility] QUEtiapine 2018-11 Yes 50mg Take 50 mg U nivers 50 mg 1-25 by mouth ity of tablet 00:00: daily. [place] [facility] QUEtiapine 2018-11 Yes 50mg Take 50 mg U nivers 50 mg 1-25 by mouth ity of tablet 00:00: daily. [place] [facility] QUEtiapine 2018-11 Yes 50mg Take 50 mg U nivers 50 mg 1-25 by mouth ity of tablet 00:00: daily. [place] [facility] QUEtiapine 2018-11 Yes 50mg Take 1 Unive rs 50 mg 1-25 tablet by ity of tablet 00:00: mouth in [place] the morning. Branch QUEtiapine 2018-11 Yes 50mg Take 1 Unive rs 50 mg 1-25 tablet by ity of tablet 00:00: mouth in [place] the morning. Branch QUEtiapine 2018-11 Yes 50mg Take 1 Unive rs 50 mg 1-25 tablet by ity of tablet 00:00: mouth in [place] the morning. Branch QUEtiapine 2018-11 Yes 50mg Take 1 Unive rs 50 mg 1-25 tablet by ity of tablet 00:00: mouth in [place] the morning. Branch QUEtiapine 2018-11 Yes 50mg Take 1 Unive rs 50 mg 1-25 tablet by ity of tablet 00:00: mouth in [place] the morning. Branch Immunizations Ordered Immunization Filled Date Status Comments Sour ce Name Immunization Name Influenza Virus 2021-09-06 Completed Universit y of Vaccine Quad IM, 00:00:00 [place] [facility] Preserv and ABX Free Bran ch 6 MO-64 YRS Influenza Virus 2021-09-06 Completed Universit y of Vaccine Quad IM, 00:00:00 [place] [facility] Preserv and ABX Free Bran ch 6 MO-64 YRS Influenza Virus 2021-09-06 Completed Universit y of Vaccine Quad IM, 00:00:00 [place] Me [facility]ical Preserv and ABX Free Bran ch 6 MO-64 YRS Influenza Virus 2021-09-06 Completed Universit y of Vaccine Quad IM, 00:00:00 [place] Me [facility]ical Preserv and ABX Free Bran [...] YRS TDAP 2021-07-17 Completed University of 00:00:00 [facility] TDAP 2021-07-17 Completed University of 00:00:00 [facility] TDAP 2021-07-17 Completed University of 00:00:00 [facility] TDAP 2021-07-17 Completed University of 00:00:00 [facility] TDAP 2021-07-17 Completed [facility] [place] [facility] 00[facility]00:00 [facility] TDAP 2021-07-17 Completed University of 00:00:00 [facility] TDAP 2021-07-17 Completed [facility] 00:[facility] [place] [facility] 00:00[facility] [place] [facility] 2021-07-17 Completed [facility] 00:[facility] [place] [facility] 2021[facility]17 Com[facility] University of 00:00:00 [facility] 2021-07-17 Completed University of 00:00:00 [facility] TDAP 2021-07-17 Completed University of 00:00:00 [facility] TDAP 2021-07-17 Completed University of 00:00:00 [facility] TDAP 2021-07-17 Completed University of 00:00:00 [facility] TDAP 2021-07-17 Completed University of 00:00:00 [facility] TDAP 2021-07-17 Completed University of 00:00:00 [facility] Rho (d) Immune 2021-05-29 Completed University of Globulin 00:00:00 [facility] Rho (d) Immune 2021-05-29 Completed University of Globulin 00:00:00 [facility] Rho (d) Immune 2021-05-29 Completed University of Globulin 00:00:00 [facility] Rho (d) Immune 2021-05-29 Completed University of Globulin 00:00:00 [facility] Rho (d) Immune 2021-05-29 Completed University of Globulin 00:00:00 [facility] Rho (d) Immune 2021-05-29 Completed University of Globulin 00:00:00 [facility] Rho (d) Immune 2021-05-29 Completed University of Globulin 00:00:00 [facility] Rho (d) Immune 2021-05-29 Completed University of Globulin 00:00:00 [facility] Rho (d) Immune 2021-05-29 Completed University of Globulin 00:00:00 [facility] Rho (d) Immune 2021-05-29 Completed University of Globulin 00:00:00 [facility] Rho (d) Immune 2021-05-29 Completed University of Globulin 00:00:00 [facility] Rho (d) Immune 2021-05-29 Completed University of Globulin 00:00:00 [facility] Rho (d) Immune 2021-05-29 Completed University of Globulin 00:00:00 [facility] Rho (d) Immune 2021-05-29 Completed University of Globulin 00:00:00 [facility] Rho (d) Immune 2021-05-29 Completed University of Globulin 00:00:00 [facility] Rho (d) Immune 2021-05-29 Completed University of Globulin 00:00:00 [facility] Rho (d) Immune 2021-05-29 Completed University of Globulin 00:00:00 [facility] MMR 2020-02-01 Completed University of 00:00:00 [facility] Rho (d) Immune 2020-02-01 Completed University of Globulin 00:00:00 [facility] MMR 2020-02-01 Completed University of 00:00:00 [facility] Rho (d) Immune 2020-02-01 Completed University of Globulin 00:00:00 [facility] MMR 2020-02-01 Completed University of 00:00:00 [facility] Rho (d) Immune 2020-02-01 Completed University of Globulin 00:00:00 [facility] MMR 2020-02-01 Completed University of 00:00:00 [facility] Rho (d) Immune 2020-02-01 Completed University of Globulin 00:00:00 [facility] MMR 2020-02-01 Completed University of 00:00:00 [facility] Rho (d) Immune 2020-02-01 Completed University of Globulin 00:00:00 [facility] MMR 2020-02-01 Completed University of 00:00:00 [facility] Rho (d) Immune 2020-02-01 Completed University of Globulin 00:00:00 [facility] MMR 2020-02-01 Completed University of 00:00:00 [facility] Rho (d) Immune 2020-02-01 Completed University of Globulin 00:00:00 [facility] MMR 2020-02-01 Completed University of 00:00:00 [facility] Rho (d) Immune 2020-02-01 Completed University of Globulin 00:00:00 [facility] MMR 2020-02-01 Completed University of 00:00:00 [facility] Rho (d) Immune 2020-02-01 Completed University of Globulin 00:00:00 [facility] MMR 2020-02-01 Completed University of 00:00:00 [facility] Rho (d) Immune 2020-02-01 Completed University of Globulin 00:00:00 [facility] MMR 2020-02-01 Completed University of 00:00:00 [facility] Rho (d) Immune 2020-02-01 Completed University of Globulin 00:00:00 [facility] MMR 2020-02-01 Completed University of 00:00:00 [facility] Rho (d) Immune 2020-02-01 Completed University of Globulin 00:00:00 [facility] MMR 2020-02-01 Completed University of 00:00:00 [facility] Rho (d) Immune 2020-02-01 Completed University of Globulin 00:00:00 [facility] MMR 2020-02-01 Completed University of 00:00:00 [facility] Rho (d) Immune 2020-02-01 Completed University of Globulin 00:00:00 [facility] MMR 2020-02-01 Completed University of 00:00:00 [facility] Rho (d) Immune 2020-02-01 Completed University of Globulin 00:00:00 [facility] MMR 2020-02-01 Completed University of 00:00:00 [facility] Rho (d) Immune 2020-02-01 Completed University of Globulin 00:00:00 [facility] MMR 2020-02-01 Completed University of 00:00:00 [facility] Rho (d) Immune 2020-02-01 Completed University of Globulin 00:00:00 [facility] TDAP (ADACEL) 2019-12-08 Completed University of VACCINE 00:00:00 [facility] TDAP (ADACEL) 2019-12-08 Completed University of VACCINE 00:00:00 [facility] TDAP (ADACEL) 2019-12-08 Completed University of VACCINE 00:00:00 [facility] TDAP (ADACEL) 2019-12-08 Completed University of VACCINE 00:00:00 [facility] TDAP (ADACEL) 2019-12-08 Completed University of VACCINE 00:00:00 [facility] TDAP (ADACEL) 2019-12-08 Completed University of VACCINE 00:00:00 [facility] TDAP (ADACEL) 2019-12-08 Completed University of VACCINE 00:00:00 [facility] TDAP (ADACEL) 2019-12-08 Completed University of VACCINE 00:00:00 [facility] TDAP (ADACEL) 2019-12-08 Completed University of VACCINE 00:00:00 [facility] TDAP (ADACEL) 2019-12-08 Completed University of VACCINE 00:00:00 [facility] TDAP (ADACEL) 2019-12-08 Completed University of VACCINE 00:00:00 [facility] TDAP (ADACEL) 2019-12-08 Completed University of VACCINE 00:00:00 [facility] TDAP (ADACEL) 2019-12-08 Completed University of VACCINE 00:00:00 [facility] TDAP (ADACEL) 2019-12-08 Completed University of VACCINE 00:00:00 [facility] TDAP (ADACEL) 2019-12-08 Completed University of VACCINE 00:00:00 [facility] TDAP (ADACEL) 2019-12-08 Completed University of VACCINE 00:00:00 [facility] TDAP (ADACEL) 2019-12-08 Completed University of VACCINE 00:00:00 [facility] Influenza Virus 2019-08-18 Completed Universit y of Vaccine Quad .5 mL 00:00:00 [facility] 6+ MO Branch Influenza Virus 2019-08-18 Completed Universit y of Vaccine 00:00:00 [facility] Influenza Virus 2019-08-18 Completed Universit y of Vaccine Quad .5 mL 00:00:00 [facility] IM 6+ MO Branch Influenza Virus 2019-08-18 Completed [facility] Vaccine 00:00:00 [facility] Influenza Virus 2019-08-18 Completed [facility] of Vaccine Quad .5 mL 00:00:00 [facility] IM 6+ MO Branch Influenza Virus 2019-08-18 Completed [facility] of Vaccine 00:00:00 [facility] Influenza Virus 2019-08-18 Completed [facility] of Vaccine Quad .5 mL 00:00:00 [facility] IM 6+ MO Branch Influenza Virus 2019-08-18 Completed [facility] of Vaccine 00:00:00 [facility] Influenza Virus 2019-08-18 Completed [facility] y of Vaccine Quad .5 mL 00:00:00 [facility] IM 6+ MO Branch Influenza Virus 2019-08-18 Completed [facility] of Vaccine 00:00:00 [facility] Influenza Virus 2019-08-18 Completed [facility] y of Vaccine Quad .5 mL 00:00:00 [facility] IM 6+ MO Branch Influenza Virus 2019-08-18 Completed [facility] of Vaccine 00:00:00 [facility] Influenza Virus 2019-08-18 Completed [facility] of Vaccine Quad .5 mL 00:00:00 [facility] IM 6+ MO [facility] Influenza Virus 2019-08-18 Completed [facility] of Vaccine 00:00:00 [facility] Influenza Virus 2019-08-18 Completed [facility] of Vaccine Quad .5 mL 00:00:00 [facility] IM 6+ MO [facility] Influenza Virus 2019-08-18 Completed [facility] of Vaccine 00:00:00 [facility] Influenza Virus 2019-08-18 Completed [facility] of Vaccine Quad .5 mL 00:00:00 [facility] 6+ MO Branch Influenza Virus 2019-08-18 Completed [facility] of Vaccine 00:00:00 [facility] Influenza Virus 2019-08-18 Completed [facility] y of Vaccine Quad .5 mL 00:00:00 [facility] 6+ MO Branch Influenza Virus 2019-08-18 Completed [facility] of Vaccine 00:00:00 [facility] Influenza Virus 2019-08-18 Completed [facility] of Vaccine Quad .5 mL 00:00:00 [facility] 6+ MO Branch Influenza Virus 2019-08-18 Completed [facility] of Vaccine 00:00:00 [facility] Influenza Virus 2019-08-18 Completed [facility] of Vaccine Quad .5 mL 00:00:00 [facility] 6+ MO Branch Influenza Virus 2019-08-18 Completed [facility] of Vaccine 00:00:00 [facility] Influenza Virus 2019-08-18 Completed [facility] of Vaccine Quad .5 mL 00:00:00 [facility] IM 6+ MO Branch Influenza Virus 2019-08-18 Completed [facility] of Vaccine 00:00:00 [facility] Influenza Virus 2019-08-18 Completed [facility] of Vaccine Quad .5 mL 00:00:00 [facility] IM 6+ MO Branch Influenza Virus 2019-08-18 Completed [facility] of Vaccine 00:00:00 [facility] Influenza Virus 2019-08-18 Completed [facility] of Vaccine Quad .5 mL 00:00:00 [facility] IM 6+ MO Branch Influenza Virus 2019-08-18 Completed [facility] of Vaccine 00:00:00 [facility] Influenza Virus 2019-08-18 Completed [facility] of Vaccine Quad .5 mL 00:00:00 [facility] IM 6+ MO Branch Influenza Virus 2019-08-18 Completed [facility] of Vaccine 00:00:00 [facility] Influenza Virus 2019-08-18 Completed [facility] of Vaccine Quad .5 mL 00:00:00 [facility] 6+ MO Branch Influenza Virus 2019-08-18 Completed [facility] of Vaccine 00:00:00 [facility] Rho (d) Immune 2019-07-27 Completed University of Globulin 00:00:00 [facility] Rho (d) Immune 2019-07-27 Completed [facility] of Globulin 00:00:00 [facility] Rho (d) Immune 2019-07-27 Completed [facility] of Globulin 00:00:00 [facility] Rho (d) Immune 2019-07-27 Completed [facility] of Globulin 00:00:00 [facility] Rho (d) Immune 2019-07-27 Completed [facility] of Globulin 00:00:00 [facility] Rho (d) Immune 2019-07-27 Completed [facility] of Globulin 00:00:00 [facility] Rho (d) Immune 2019-07-27 Completed [facility] of Globulin 00:00:00 [facility] Rho (d) Immune 2019-07-27 Completed [facility] of Globulin 00:00:00 [facility] Rho (d) Immune 2019-07-27 Completed [facility] of Globulin 00:00:00 [facility] Rho (d) Immune 2019-07-27 Completed [facility] of Globulin 00:00:00 [facility] Rho (d) Immune 2019-07-27 Completed [facility] of Globulin 00:00:00 [facility] Rho (d) Immune 2019-07-27 Completed [facility] of Globulin 00:00:00 [facility] Rho (d) Immune 2019-07-27 Completed [facility] of Globulin 00:00:00 [facility] Rho (d) Immune 2019-07-27 Completed [facility] of Globulin 00:00:00 [facility] Rho (d) Immune 2019-07-27 Completed [facility] of Globulin 00:00:00 [facility] Rho (d) Immune 2019-07-27 Completed [facility] of Globulin 00:00:00 [facility] Rho (d) Immune 2019-07-27 Completed [facility] of Globulin 00:00:00 [facility] Influenza Virus 2018-09-10 Completed [facility]it y of Vaccine Quad IM 3+ 00:00:00 [facility] Influenza Virus 2018-09-10 Completed [facility]it y of Vaccine Quad IM 3+ 00:00:00 [facility] Influenza Virus 2018-09-10 Completed [facility] y of Vaccine Quad IM 3+ 00:00:00 [facility] Influenza Virus 2018-09-10 Completed [facility] y of Vaccine Quad IM 3+ 00:00:00 [facility] Influenza Virus 2018-09-10 Completed [facility] y of Vaccine Quad IM 3+ 00:00:00 [facility] Influenza Virus 2018-09-10 Completed [facility] y of Vaccine Quad IM 3+ 00:00:00 [facility] Influenza Virus 2018-09-10 Completed [facility] y of Vaccine Quad IM 3+ 00:00:00 [facility] Influenza Virus 2018-09-10 Completed [facility] y of Vaccine Quad IM 3+ 00:00:00 [facility] Influenza Virus 2018-09-10 Completed [facility] of Vaccine Quad IM 3+ 00:00:00 [facility] Influenza Virus 2018-09-10 Completed [facility] y of Vaccine Quad IM 3+ 00:00:00 [facility] Influenza Virus 2018-09-10 Completed [facility] y of Vaccine Quad IM 3+ 00:00:00 [facility] Influenza Virus 2018-09-10 Completed [facility] of Vaccine Quad IM 3+ 00:00:00 [facility] Influenza Virus 2018-09-10 Completed [facility] y of Vaccine Quad IM 3+ 00:00:00 [facility] Influenza Virus 2018-09-10 Completed [facility] y of Vaccine Quad IM 3+ 00:00:00 [facility] Influenza Virus 2018-09-10 Completed [facility] of Vaccine Quad IM 3+ 00:00:00 [facility] Influenza Virus 2018-09-10 Completed [facility] of Vaccine Quad IM 3+ 00:00:00 [facility] Influenza Virus 2018-09-10 Completed [facility] of Vaccine Quad IM 3+ 00:00:00 [facility] Influenza Virus 2017-09-12 Completed [facility] of Vaccine Quad IM 3+ 00:00:00 [facility] Influenza Virus 2017-09-12 Completed [facility] of Vaccine Quad IM 3+ 00:00:00 [facility] Influenza Virus 2017-09-12 Completed [facility] y of Vaccine Quad IM 3+ 00:00:00 [facility] Influenza Virus 2017-09-12 Completed [facility] y of Vaccine Quad IM 3+ 00:00:00 [facility] Influenza Virus 2017-09-12 Completed [facility] y of Vaccine Quad IM 3+ 00:00:00 [facility] Influenza Virus 2017-09-12 Completed [facility] y of Vaccine Quad IM 3+ 00:00:00 [facility] Influenza Virus 2017-09-12 Completed [facility] y of Vaccine Quad IM 3+ 00:00:00 [facility] Influenza Virus 2017-09-12 Completed [facility] y of Vaccine Quad IM 3+ 00:00:00 [facility] Influenza Virus 2017-09-12 Completed [facility] y of Vaccine Quad IM 3+ 00:00:00 [facility] Influenza Virus 2017-09-12 Completed [facility] y of Vaccine Quad IM 3+ 00:00:00 [facility] Influenza Virus 2017-09-12 Completed [facility] y of Vaccine Quad IM 3+ 00:00:00 [facility] Influenza Virus 2017-09-12 Completed [facility] y of Vaccine Quad IM 3+ 00:00:00 [facility] Influenza Virus 2017-09-12 Completed [facility] y of Vaccine Quad IM 3+ 00:00:00 [facility] Influenza Virus 2017-09-12 Completed [facility] y of Vaccine Quad IM 3+ 00:00:00 [facility] Influenza Virus 2017-09-12 Completed [facility] y of Vaccine Quad IM 3+ 00:00:00 [facility] Influenza Virus 2017-09-12 Completed [facility] y of Vaccine Quad IM 3+ 00:00:00 [facility] Influenza Virus 2017-09-12 Completed [facility] y of Vaccine Quad IM 3+ 00:00:00 [facility] Influenza Virus 2015-10-13 Completed [facility] y of Vaccine Nasal 00:00:00 [facility] Influenza Virus 2015-10-13 Completed [facility] y of Vaccine Nasal 00:00:00 [facility] Influenza Virus 2015-10-13 Completed [facility] y of Vaccine Nasal 00:00:00 [facility] Influenza Virus 2015-10-13 Completed [facility] y of Vaccine Nasal 00:00:00 [facility] Influenza Virus 2015-10-13 Completed [facility] y of Vaccine Nasal 00:00:00 [facility] Influenza Virus 2015-10-13 Completed [facility] y of Vaccine Nasal 00:00:00 [facility] Influenza Virus 2015-10-13 Completed [facility] of Vaccine Nasal 00:00:00 [facility] Influenza Virus 2015-10-13 Completed [facility] y of Vaccine Nasal 00:00:00 [facility] Influenza Virus 2015-10-13 Completed [facility] of Vaccine Nasal 00:00:00 [facility] Influenza Virus 2015-10-13 Completed [facility] of Vaccine Nasal 00:00:00 [facility] Influenza Virus 2015-10-13 Completed [facility] of Vaccine Nasal 00:00:00 [facility] Influenza Virus 2015-10-13 Completed [facility] of Vaccine Nasal 00:00:00 [facility] Influenza Virus 2015-10-13 Completed [facility] of Vaccine Nasal 00:00:00 [facility] Influenza Virus 2015-10-13 Completed [facility] of Vaccine Nasal 00:00:00 [facility] Influenza Virus 2015-10-13 Completed [facility] of Vaccine Nasal 00:00:00 [facility] Influenza Virus 2015-10-13 Completed [facility] of Vaccine Nasal 00:00:00 [facility] Influenza Virus 2015-10-13 Completed [facility] y of Vaccine Nasal 00:00:00 [facility] Influenza Virus 2014-09-02 Completed [facility] of Vaccine 00:00:00 [facility] Influenza Virus 2014-09-02 Completed [facility] of Vaccine 00:00:00 [facility] Influenza Virus 2014-09-02 Completed [facility] of Vaccine 00:00:00 [facility] Influenza Virus 2014-09-02 Completed [facility] of Vaccine 00:00:00 [facility] Influenza Virus 2014-09-02 Completed [facility] of Vaccine 00:00:00 [facility] Influenza Virus 2014-09-02 Completed [facility] of Vaccine 00:00:00 [facility] Influenza Virus 2014-09-02 Completed [facility] of Vaccine 00:00:00 [facility] Influenza Virus 2014-09-02 Completed [facility] of Vaccine 00:00:00 [facility] Influenza Virus 2014-09-02 Completed [facility] of Vaccine 00:00:00 [facility] Influenza Virus 2014-09-02 Completed [facility] of Vaccine 00:00:00 [facility] Influenza Virus 2014-09-02 Completed [facility] of Vaccine 00:00:00 [facility] Influenza Virus 2014-09-02 Completed [facility] of Vaccine 00:00:00 [facility] Influenza Virus 2014-09-02 Completed [facility] of Vaccine 00:00:00 [facility] Influenza Virus 2014-09-02 Completed [facility] of Vaccine 00:00:00 [facility] Influenza Virus 2014-09-02 Completed [facility] of Vaccine 00:00:00 [facility] Influenza Virus 2014-09-02 Completed [facility] of Vaccine 00:00:00 [facility] Influenza Virus 2014-09-02 Completed [facility] of Vaccine 00:00:00 [facility] HPV 2014-01-18 Completed [facility] of 00:00:00 [facility] Meningococcal 2014-01-18 Completed [facility] of Vaccine 00:00:00 [facility] Varicella 2014-01-18 Completed [facility] of (varivax)(chicken 00:00:00 [place] [facility] pox) [facility] TDAP 2014-01-18 Completed [facility] 00:00:00 [facility] Meningococcal 2014-01-18 Completed [facility] Polysaccharide 00:00:00 [place] [facility] (groups A, C, Y and Branc h W-135) conjugate vaccine (MCV4P) HPV 2014-01-18 Completed [facility] of 00:00:00 [facility] Meningococcal 2014-01-18 Completed [facility] of Vaccine 00:00:00 [facility] Varicella 2014-01-18 Completed [facility] (varivax)(chicken 00:00:00 [place] [facility] pox[facility] TDAP 2014-01-18 Completed [facility] of 00:00:00 [facility] Meningococcal 2014-01-18 Completed [facility] Polysaccharide 00:00:00 [place] [facility] (groups A, C, Y and Branc h W-135) conjugate vaccine (MCV4P) HPV 2014-01-18 Completed [facility] of 00:00:00 [facility] Meningococcal 2014-01-18 Completed [facility] of Vaccine 00:00:00 [facility] Varicella 2014-01-18 Completed [facility] (varivax)(chicken 00:00:00 [place] [facility] pox) [facility] TDAP 2014-01-18 Completed [facility] of 00:00:00 [facility] Meningococcal 2014-01-18 Completed [facility] Polysaccharide 00:00:00 [place] [facility] (groups A, C, Y and Branc h W-135) conjugate vaccine (MCV4P) HPV 2014-01-18 Completed [facility] of 00:00:00 [facility] Meningococcal 2014-01-18 Completed [facility] of Vaccine 00:00:00 [facility] Varicella 2014-01-18 Completed [facility] of (varivax)(chicken 00:00:00 [place] [facility] pox) [facility] TDAP 2014-01-18 Completed [facility] 00:00:00 [facility] Meningococcal 2014-01-18 Completed [facility] Polysaccharide 00:00:00 [place] [facility] (groups A, C, Y and Branc h W-135) conjugate vaccine (MCV4P) HPV 2014-01-18 Completed [facility] 00:00:00 [facility] Meningococcal 2014-01-18 Completed [facility] of Vaccine 00:00:00 [facility] Varicella 2014-01-18 Completed [facility] of (varivax)(chicken 00:00:00 [place] [facility] pox) Branch TDAP 2014-01-18 Completed [facility] of 00:00:00 [facility] Meningococcal 2014-01-18 Completed [facility] Polysaccharide 00:00:00 [place] [facility] (groups A, C, Y and Branc h W-135) conjugate vaccine (MCV4P) HPV 2014-01-18 Completed [facility] of 00:00:00 [facility] Meningococcal 2014-01-18 Completed [facility] of Vaccine 00:00:00 [facility] Varicella 2014-01-18 Completed [facility] of (varivax)(chicken 00:00:00 [place] [facility] pox) Branch TDAP 2014-01-18 Completed [facility] of 00:00:00 [facility] Meningococcal 2014-01-18 Completed [facility] of Polysaccharide 00:00:00 [place] [facility] (groups A, C, Y and Branc h W-135) conjugate vaccine (MCV4P) HPV 2014-01-18 Completed [facility] of 00:00:00 [facility] Meningococcal 2014-01-18 Completed [facility] of Vaccine 00:00:00 [facility] Varicella 2014-01-18 Completed [facility] of (varivax)(chicken 00:00:00 [place] [facility] pox) Branch TDAP 2014-01-18 Completed [facility] 00:00:00 [facility] Meningococcal 2014-01-18 Completed [facility] of Polysaccharide 00:00:00 [place] [facility] (groups A, C, Y and Branc h W-135) conjugate vaccine (MCV4P) HPV 2014-01-18 Completed [facility] of 00:00:00 [facility] Meningococcal 2014-01-18 Completed [facility] of Vaccine 00:00:00 [facility] Varicella 2014-01-18 Completed [facility] (varivax)(chicken 00:00:00 [place] [facility] pox) Branch TDAP 2014-01-18 Completed [facility] 00:00:00 [facility] Meningococcal 2014-01-18 Completed [facility] Polysaccharide 00:00:00 [place] [facility] (groups A, C, Y and Branc h W-135) conjugate vaccine (MCV4P) HPV 2014-01-18 Completed [facility] 00:00:00 [facility] Meningococcal 2014-01-18 Completed [facility] of Vaccine 00:00:00 [facility] Varicella 2014-01-18 Completed [facility] of (varivax)(chicken 00:00:00 [place] [facility] pox) Branch TDAP 2014-01-18 Completed [facility] of 00:00:00 [facility] Meningococcal 2014-01-18 Completed [facility] Polysaccharide 00:00:00 [place] [facility] (groups A, C, Y and Branc h W-135) conjugate vaccine (MCV4P) HPV 2014-01-18 Completed [facility] 00:00:00 [facility] Meningococcal 2014-01-18 Completed [facility] of Vaccine 00:00:00 [facility] Varicella 2014-01-18 Completed [facility] of (varivax)(chicken 00:00:00 [place] [facility] pox) Branch TDAP 2014-01-18 Completed [facility] of 00:00:00 [facility] Meningococcal 2014-01-18 Completed [facility] of Polysaccharide 00:00:00 [place] [facility] (groups A, C, Y and Branc h W-135) conjugate vaccine (MCV4P) HPV 2014-01-18 Completed [facility] of 00:00:00 [facility] Meningococcal 2014-01-18 Completed [facility] of Vaccine 00:00:00 [facility] Varicella 2014-01-18 Completed [facility] of (varivax)(chicken 00:00:00 [place] [facility] pox) Branch TDAP 2014-01-18 Completed [facility] 00:00:00 [facility] Meningococcal 2014-01-18 Completed [facility] Polysaccharide 00:00:00 [place] [facility] (groups A, C, Y and Branc h W-135) conjugate vaccine (MCV4P) HPV 2014-01-18 Completed [facility] of 00:00:00 [facility] Meningococcal 2014-01-18 Completed [facility] of Vaccine 00:00:00 [facility] Varicella 2014-01-18 Completed [facility] of (varivax)(chicken 00:00:00 [place] [facility] pox) Branch TDAP 2014-01-18 Completed [facility] of 00:00:00 [facility] Meningococcal 2014-01-18 Completed [facility] of Polysaccharide 00:00:00 [place] [facility] (groups A, C, Y and Branc h W-135) conjugate vaccine (MCV4P) HPV 2014-01-18 Completed [facility] 00:00:00 [facility] Meningococcal 2014-01-18 Completed [facility] of Vaccine 00:00:00 [facility] Varicella 2014-01-18 Completed [facility] of (varivax)(chicken 00:00:00 [place] [facility] pox) Branch TDAP 2014-01-18 Completed [facility] 00:00:00 [facility] Meningococcal 2014-01-18 Completed [facility] of Polysaccharide 00:00:00 [place] [facility] (groups A, C, Y and Branc h W-135) conjugate vaccine (MCV4P) HPV 2014-01-18 Completed [facility] of 00:00:00 [facility] Meningococcal 2014-01-18 Completed [facility] of Vaccine 00:00:00 [facility] Varicella 2014-01-18 Completed [facility] of (varivax)(chicken 00:00:00 [place] [facility] pox) Branch TDAP 2014-01-18 Completed [facility] of 00:00:00 [facility] Meningococcal 2014-01-18 Completed [facility] of Polysaccharide 00:00:00 [place] [facility] (groups A, C, Y and Branc h W-135) conjugate vaccine (MCV4P) HPV 2014-01-18 Completed [facility] 00:00:00 [facility] Meningococcal 2014-01-18 Completed [facility] of Vaccine 00:00:00 [facility] Varicella 2014-01-18 Completed [facility] of (varivax)(chicken 00:00:00 [place] [facility] pox) Branch TDAP 2014-01-18 Completed [facility] of 00:00:00 [facility] Meningococcal 2014-01-18 Completed [facility] of Polysaccharide 00:00:00 [place] [facility] (groups A, C, Y and Branc h W-135) conjugate vaccine (MCV4P) HPV 2014-01-18 Completed [facility] of 00:00:00 [facility] Meningococcal 2014-01-18 Completed [facility] of Vaccine 00:00:00 [facility] Varicella 2014-01-18 Completed [facility] of (varivax)(chicken 00:00:00 [place] [facility] pox) Branch TDAP 2014-01-18 Completed [facility] of 00:00:00 [facility] Meningococcal 2014-01-18 Completed [facility] of Polysaccharide 00:00:00 [place] [facility] (groups A, C, Y and Branc h W-135) conjugate vaccine (MCV4P) HPV 2014-01-18 Completed [facility] of 00:00:00 [facility] Meningococcal 2014-01-18 Completed [facility] of Vaccine 00:00:00 [facility] Varicella 2014-01-18 Completed [facility] of (varivax)(chicken 00:00:00 [place] [facility] pox) Branch TDAP 2014-01-18 Completed [facility] of 00:00:00 [facility] Meningococcal 2014-01-18 Completed [facility] of Polysaccharide 00:00:00 [place] [facility] (groups A, C, Y and Branc h W-135) conjugate vaccine (MCV4P) Influenza Virus 2013-09-23 Completed Universit [facility] of Vaccine 00:00:00 [facility] Influenza Virus 2013-09-23 Completed [facility] y of Vaccine 00:00:00 [facility] Influenza Virus 2013-09-23 Completed [facility] y of Vaccine 00:00:00 [facility] Influenza Virus 2013-09-23 Completed [facility] y of Vaccine 00:00:00 [facility] Influenza Virus 2013-09-23 Completed [facility] y of Vaccine 00:00:00 [facility] Influenza Virus 2013-09-23 Completed [facility] y of Vaccine 00:00:00 [facility] Influenza Virus 2013-09-23 Completed [facility] y of Vaccine 00:00:00 [facility] Influenza Virus 2013-09-23 Completed [facility] y of Vaccine 00:00:00 [facility] Influenza Virus 2013-09-23 Completed [facility] y of Vaccine 00:00:00 [facility] Influenza Virus 2013-09-23 Completed [facility] y of Vaccine 00:00:00 [facility] Influenza Virus 2013-09-23 Completed [facility] y of Vaccine 00:00:00 [facility] Influenza Virus 2013-09-23 Completed [facility] y of Vaccine 00:00:00 [facility] Influenza Virus 2013-09-23 Completed [facility] y of Vaccine 00:00:00 [facility] Influenza Virus 2013-09-23 Completed [facility] y of Vaccine 00:00:00 [facility] Influenza Virus 2013-09-23 Completed [facility] y of Vaccine 00:00:00 [facility] Influenza Virus 2013-09-23 Completed [facility] y of Vaccine 00:00:00 [facility] Influenza Virus 2013-09-23 Completed [facility] y of Vaccine 00:00:00 [facility] Influenza Virus 2012-11-24 Completed [facility] y of Vaccine 00:00:00 [facility] Influenza Virus 2012-11-24 Completed [facility] y of Vaccine 00:00:00 [facility] Influenza Virus 2012-11-24 Completed [facility] y of Vaccine 00:00:00 [facility] Influenza Virus 2012-11-24 Completed [facility] y of Vaccine 00:00:00 [facility] Influenza Virus 2012-11-24 Completed [facility]it y of Vaccine 00:00:00 [facility] Influenza Virus 2012-11-24 Completed [facility] Vaccine 00:00:00 [facility] Influenza Virus 2012-11-24 Completed [facility] Vaccine 00:00:00 [facility] Influenza Virus 2012-11-24 Completed [facility] Vaccine 00:00:00 [facility] Influenza Virus 2012-11-24 Completed [facility] Vaccine 00:00:00 [facility] Influenza Virus 2012-11-24 Completed [facility] Vaccine 00:00:00 [facility] Influenza Virus 2012-11-24 Completed [facility] Vaccine 00:00:00 [facility] Influenza Virus 2012-11-24 Completed [facility] Vaccine 00:00:00 [facility] Influenza Virus 2012-11-24 Completed [facility] Vaccine 00:00:00 [facility] Influenza Virus 2012-11-24 Completed [facility] Vaccine 00:00:00 [facility] Influenza Virus 2012-11-24 Completed [facility] Vaccine 00:00:00 [facility] Influenza Virus 2012-11-24 Completed [facility] Vaccine 00:00:00 [facility] Influenza Virus 2012-11-24 Completed [facility] Vaccine 00:00:00 [facility] Influenza Virus 2011-08-23 Completed [facility] y of Vaccine Nasal 00:00:00 [facility] Influenza Virus 2011-08-23 Completed [facility] y of Vaccine Nasal 00:00:00 [facility] Influenza Virus 2011-08-23 Completed [facility] of Vaccine Nasal 00:00:00 [facility] Influenza Virus 2011-08-23 Completed [facility] Vaccine Nasal 00:00:00 [facility] Influenza Virus 2011-08-23 Completed [facility] Vaccine Nasal 00:00:00 [facility] Influenza Virus 2011-08-23 Completed [facility] of Vaccine Nasal 00:00:00 [facility] Influenza Virus 2011-08-23 Completed [facility] Vaccine Nasal 00:00:00 [facility] Influenza Virus 2011-08-23 Completed [facility] Vaccine Nasal 00:00:00 [facility] Influenza Virus 2011-08-23 Completed [facility] Vaccine Nasal 00:00:00 [facility] Influenza Virus 2011-08-23 Completed [facility] Vaccine Nasal 00:00:00 [facility] Influenza Virus 2011-08-23 Completed [facility] Vaccine Nasal 00:00:00 [facility] Influenza Virus 2011-08-23 Completed [facility] Vaccine Nasal 00:00:00 [facility] Influenza Virus 2011-08-23 Completed [facility] Vaccine Nasal 00:00:00 [facility] Influenza Virus 2011-08-23 Completed [facility] Vaccine Nasal 00:00:00 [facility] Influenza Virus 2011-08-23 Completed [facility] of Vaccine Nasal 00:00:00 [facility] Influenza Virus 2011-08-23 Completed [facility] of Vaccine Nasal 00:00:00 [facility] Influenza Virus 2011-08-23 Completed [facility] of Vaccine Nasal 00:00:00 [facility] HPV 2011-07-04 Completed [facility] 00:00:00 [facility] HPV 2011-07-04 Completed [facility] 00:00:00 [facility] HPV 2011-07-04 Completed [facility] 00:00:00 [facility] HPV 2011-07-04 Completed [facility] 00:00:00 [facility] HPV 2011-07-04 Completed [facility] 00:00:00 [facility] HPV 2011-07-04 Completed [facility] 00:00:00 [facility] HPV 2011-07-04 Completed [facility] 00:00:00 [facility] HPV 2011-07-04 Completed [facility] 00:00:00 [facility] HPV 2011-07-04 Completed [facility] 00:00:00 [facility] HPV 2011-07-04 Completed [facility] 00:00:00 [facility] HPV 2011-07-04 Completed [facility] 00:00:00 [facility] HPV 2011-07-04 Completed [facility] of 00:00:00 [facility] HPV 2011-07-04 Completed [facility] of 00:00:00 [facility] HPV 2011-07-04 Completed [facility] 00:00:00 [facility] HPV 2011-07-04 Completed [facility] 00:00:00 [facility] HPV 2011-07-04 Completed [facility] 00:00:00 [facility] HPV 2011-07-04 Completed [facility] 00:00:00 [facility] Influenza Virus 2010-09-06 Completed [facility] Vaccine 00:00:00 [facility] Influenza Virus 2010-09-06 Completed [facility] Vaccine 00:00:00 [facility] Influenza Virus 2010-09-06 Completed [facility] Vaccine 00:00:00 [facility] Influenza Virus 2010-09-06 Completed [facility] Vaccine 00:00:00 [facility] Influenza Virus 2010-09-06 Completed [facility] Vaccine 00:00:00 [facility] Influenza Virus 2010-09-06 Completed [facility] Vaccine 00:00:00 [facility] Influenza Virus 2010-09-06 Completed [facility] Vaccine 00:00:00 [facility] Influenza Virus 2010-09-06 Completed [facility] Vaccine 00:00:00 [facility] Influenza Virus 2010-09-06 Completed [facility] Vaccine 00:00:00 [facility] Influenza Virus 2010-09-06 Completed [facility] Vaccine 00:00:00 [facility] Influenza Virus 2010-09-06 Completed [facility] Vaccine 00:00:00 [facility] Influenza Virus 2010-09-06 Completed [facility] Vaccine 00:00:00 [facility] Influenza Virus 2010-09-06 Completed [facility] of Vaccine 00:00:00 [facility] Influenza Virus 2010-09-06 Completed [facility] Vaccine 00:00:00 [facility] Influenza Virus 2010-09-06 Completed [facility] Vaccine 00:00:00 [facility] Influenza Virus 2010-09-06 Completed [facility] Vaccine 00:00:00 [facility] Influenza Virus 2010-09-06 Completed [facility] Vaccine 00:00:00 [facility] HEPATITIS A 2006-12-16 Completed [facility] of 00:00:00 [facility] HEPATITIS A 2006-12-16 Completed [facility] of 00:00:00 [facility] HEPATITIS A 2006-12-16 Completed [facility] 00:00:00 [facility] HEPATITIS A 2006-12-16 Completed [facility] 00:00:00 [facility] HEPATITIS A 2006-12-16 Completed [facility] 00:00:00 [facility] HEPATITIS A 2006-12-16 Completed [facility] 00:00:00 [facility] HEPATITIS A 2006-12-16 Completed [facility] 00:00:00 [facility] HEPATITIS A 2006-12-16 Completed [facility] 00:00:00 [facility] HEPATITIS A 2006-12-16 Completed [facility] 00:00:00 [facility] HEPATITIS A 2006-12-16 Completed [facility] 00:00:00 [facility] HEPATITIS A 2006-12-16 Completed [facility] 00:00:00 [facility] HEPATITIS A 2006-12-16 Completed [facility] 00:00:00 [facility] HEPATITIS A 2006-12-16 Completed [facility] 00:00:00 [facility] HEPATITIS A 2006-12-16 Completed [facility] 00:00:00 [facility] HEPATITIS A 2006-12-16 Completed [facility] 00:00:00 [facility] HEPATITIS A 2006-12-16 Completed [facility] 00:00:00 [facility] HEPATITIS A 2006-12-16 Completed [facility] 00:00:00 [facility] HEPATITIS A 2005-10-11 Completed [facility] 00:00:00 [facility] HEPATITIS A 2005-10-11 Completed [facility] 00:00:00 [facility] HEPATITIS A 2005-10-11 Completed [facility] 00:00:00 [facility] HEPATITIS A 2005-10-11 Completed [facility] 00:00:00 [facility] HEPATITIS A 2005-10-11 Completed [facility] 00:00:00 [facility] HEPATITIS A 2005-10-11 Completed [facility] 00:00:00 [facility] HEPATITIS A 2005-10-11 Completed [facility] of 00:00:00 [facility] HEPATITIS A 2005-10-11 Completed [facility] 00:00:00 [facility] HEPATITIS A 2005-10-11 Completed [facility] 00:00:00 [facility] HEPATITIS A 2005-10-11 Completed [facility] 00:00:00 [facility] HEPATITIS A 2005-10-11 Completed [facility] 00:00:00 [facility] HEPATITIS A 2005-10-11 Completed [facility] 00:00:00 [facility] HEPATITIS A 2005-10-11 Completed [facility] 00:00:00 [facility] HEPATITIS A 2005-10-11 Completed [facility] of 00:00:00 [facility] HEPATITIS A 2005-10-11 Completed [facility] of 00:00:00 [facility] HEPATITIS A 2005-10-11 Completed [facility] of 00:00:00 [facility] HEPATITIS A 2005-10-11 Completed [facility] of 00:00:00 [facility] Influenza Virus 2003-09-06 Completed [facility] Vaccine 00:00:00 [facility] Influenza Virus 2003-09-06 Completed [facility] Vaccine 00:00:00 [facility] Influenza Virus 2003-09-06 Completed [facility] Vaccine 00:00:00 [facility] Influenza Virus 2003-09-06 Completed [facility] Vaccine 00:00:00 [facility] Influenza Virus 2003-09-06 Completed [facility] Vaccine 00:00:00 [facility] Influenza Virus 2003-09-06 Completed [facility] Vaccine 00:00:00 [facility] Influenza Virus 2003-09-06 Completed [facility] Vaccine 00:00:00 [facility] Influenza Virus 2003-09-06 Completed [facility] Vaccine 00:00:00 [facility] Influenza Virus 2003-09-06 Completed [facility] Vaccine 00:00:00 [facility] Influenza Virus 2003-09-06 Completed [facility] Vaccine 00:00:00 [facility] Influenza Virus 2003-09-06 Completed [facility] Vaccine 00:00:00 [facility] Influenza Virus 2003-09-06 Completed [facility] Vaccine 00:00:00 [facility] Influenza Virus 2003-09-06 Completed [facility] Vaccine 00:00:00 [facility] Influenza Virus 2003-09-06 Completed [facility] Vaccine 00:00:00 [facility] Influenza Virus 2003-09-06 Completed [facility] Vaccine 00:00:00 [facility] Influenza Virus 2003-09-06 Completed [facility] Vaccine 00:00:00 [facility] Influenza Virus 2003-09-06 Completed [facility] Vaccine 00:00:00 [facility] DTAP 2003-02-08 Completed [facility] of 00:00:00 [facility] HIB 4 Dose Schedule 2003-02-08 Completed Unive rsity of 00:00:00 [facility] TDAP 2003-02-08 Completed [facility] 00:00:00 [facility] Heamophilus 2003-02-08 Completed [facility] of Influenza B 00:00:00 [facility] DTAP 2003-02-08 Completed [facility] 00:00:00 [facility] HIB 4 Dose Schedule 2003-02-08 Completed Unive rsity of 00:00:00 [facility] TDAP 2003-02-08 Completed [facility] 00:00:00 [facility] Heamophilus 2003-02-08 Completed [facility] of Influenza B 00:00:00 [facility] DTAP 2003-02-08 Completed [facility] 00:00:00 [facility] HIB 4 Dose Schedule 2003-02-08 Completed Unive rsity of 00:00:00 [facility] TDAP 2003-02-08 Completed [facility] 00:00:00 [facility] Heamophilus 2003-02-08 Completed [facility] of Influenza B 00:00:00 [facility] DTAP 2003-02-08 Completed [facility] of 00:00:00 [facility] HIB 4 Dose Schedule 2003-02-08 Completed Unive rsity of 00:00:00 [facility] TDAP 2003-02-08 Completed [facility] of 00:00:00 [facility] Heamophilus 2003-02-08 Completed [facility] of Influenza B 00:00:00 [facility] DTAP 2003-02-08 Completed [facility] of 00:00:00 [facility] HIB 4 Dose Schedule 2003-02-08 Completed Unive rsity of 00:00:00 [facility] TDAP 2003-02-08 Completed [facility] 00:00:00 [facility] Heamophilus 2003-02-08 Completed [facility] of Influenza B 00:00:00 [facility] DTAP 2003-02-08 Completed [facility] 00:00:00 [facility] HIB 4 Dose Schedule 2003-02-08 Completed Unive rsity of 00:00:00 [facility] TDAP 2003-02-08 Completed [facility] of 00:00:00 [facility] Heamophilus 2003-02-08 Completed [facility] of Influenza B 00:00:00 [facility] DTAP 2003-02-08 Completed [facility] of 00:00:00 [facility] HIB 4 Dose Schedule 2003-02-08 Completed Unive rsity of 00:00:00 [facility] TDAP 2003-02-08 Completed [facility] of 00:00:00 [facility] Heamophilus 2003-02-08 Completed University of Influenza B 00:00:00 [facility] DTAP 2003-02-08 Completed [facility] of 00:00:00 [facility] HIB 4 Dose Schedule 2003-02-08 Completed Unive rsity of 00:00:00 [facility] TDAP 2003-02-08 Completed [facility] of 00:00:00 [facility] Heamophilus 2003-02-08 Completed [facility] of Influenza B 00:00:00 [facility] DTAP 2003-02-08 Completed [facility] of 00:00:00 [facility] HIB 4 Dose Schedule 2003-02-08 Completed Unive rsity of 00:00:00 [facility] TDAP 2003-02-08 Completed [facility] of 00:00:00 [facility] Heamophilus 2003-02-08 Completed [facility] of Influenza B 00:00:00 [facility] DTAP 2003-02-08 Completed [facility] of 00:00:00 [facility] HIB 4 Dose Schedule 2003-02-08 Completed Unive rsity of 00:00:00 [facility] TDAP 2003-02-08 Completed [facility] 00:00:00 [facility] Heamophilus 2003-02-08 Completed [facility] of Influenza B 00:00:00 [facility] DTAP 2003-02-08 Completed [facility] of 00:00:00 [facility] HIB 4 Dose Schedule 2003-02-08 Completed Unive rsity of 00:00:00 [facility] TDAP 2003-02-08 Completed [facility] of 00:00:00 [facility] Heamophilus 2003-02-08 Completed [facility] of Influenza B 00:00:00 [facility] DTAP 2003-02-08 Completed [facility] 00:00:00 [facility] HIB 4 Dose Schedule 2003-02-08 Completed Unive rsity of 00:00:00 [facility] TDAP 2003-02-08 Completed [facility] 00:00:00 [facility] Heamophilus 2003-02-08 Completed [facility] of Influenza B 00:00:00 [facility] DTAP 2003-02-08 Completed [facility] 00:00:00 [facility] HIB 4 Dose Schedule 2003-02-08 Completed Unive rsity of 00:00:00 [facility] TDAP 2003-02-08 Completed [facility] 00:00:00 [facility] Heamophilus 2003-02-08 Completed [facility] of Influenza B 00:00:00 [facility] DTAP 2003-02-08 Completed [facility] of 00:00:00 [facility] HIB 4 Dose Schedule 2003-02-08 Completed Unive rsity of 00:00:00 [facility] TDAP 2003-02-08 Completed [facility] 00:00:00 [facility] Heamophilus 2003-02-08 Completed [facility] of Influenza B 00:00:00 [facility] DTAP 2003-02-08 Completed [facility] of 00:00:00 [facility] HIB 4 Dose Schedule 2003-02-08 Completed Unive rsity of 00:00:00 [facility] TDAP 2003-02-08 Completed [facility] of 00:00:00 [facility] Heamophilus 2003-02-08 Completed [facility] of Influenza B 00:00:00 [facility] DTAP 2003-02-08 Completed [facility] of 00:00:00 [facility] HIB 4 Dose Schedule 2003-02-08 Completed Unive rsity of 00:00:00 [facility] TDAP 2003-02-08 Completed [facility] 00:00:00 [facility] Heamophilus 2003-02-08 Completed [facility] of Influenza B 00:00:00 [facility] DTAP 2003-02-08 Completed [facility] of 00:00:00 [facility] HIB 4 Dose Schedule 2003-02-08 Completed Unive rsity of 00:00:00 [facility] TDAP 2003-02-08 Completed [facility] 00:00:00 [facility] Heamophilus 2003-02-08 Completed [facility] of Influenza B 00:00:00 [facility] Varicella 2002-11-23 Completed [facility] of (varivax)(chicken 00:00:00 [place] [facility] MMR 2002-11-23 Completed [facility] 00:00:00 [facility] IPV 2002-11-23 Completed [facility] 00:00:00 [facility] Varicella 2002-11-23 Completed [facility] (varivax)(chicken 00:00:00 [place] [facility] MMR 2002-11-23 Completed [facility] 00:00:00 [facility] IPV 2002-11-23 Completed [facility] 00:00:00 [facility] Varicella 2002-11-23 Completed [facility] (varivax)(chicken 00:00:00 [place] [facility] MMR 2002-11-23 Completed [facility] 00:00:00 [facility] IPV 2002-11-23 Completed [facility] 00:00:00 [facility] Varicella 2002-11-23 Completed [facility] (varivax)(chicken 00:00:00 [place] [facility] MMR 2002-11-23 Completed [facility] 00:00:00 [facility] IPV 2002-11-23 Completed [facility] of 00:00:00 [facility] Varicella 2002-11-23 Completed [facility] (varivax)(chicken 00:00:00 [place] [facility] MMR 2002-11-23 Completed [facility] 00:00:00 [facility] IPV 2002-11-23 Completed [facility] of 00:00:00 [facility] Varicella 2002-11-23 Completed [facility] (varivax)(chicken 00:00:00 [place] [facility] MMR 2002-11-23 Completed [facility] 00:00:00 [facility] IPV 2002-11-23 Completed [facility] of 00:00:00 [facility] Varicella 2002-11-23 Completed [facility] of (varivax)(chicken 00:00:00 [place] [facility] MMR 2002-11-23 Completed [facility] 00:00:00 [facility] IPV 2002-11-23 Completed [facility] 00:00:00 [facility] Varicella 2002-11-23 Completed [facility] (varivax)(chicken 00:00:00 [place] [facility] MMR 2002-11-23 Completed [facility] 00:00:00 [facility] IPV 2002-11-23 Completed [facility] 00:00:00 [facility] Varicella 2002-11-23 Completed [facility] (varivax)(chicken 00:00:00 [place] [facility] MMR 2002-11-23 Completed [facility] 00:00:00 [facility] IPV 2002-11-23 Completed [facility] 00:00:00 [facility] Varicella 2002-11-23 Completed [facility] (varivax)(chicken 00:00:00 [place] [facility] MMR 2002-11-23 Completed [facility] 00:00:00 [facility] IPV 2002-11-23 Completed [facility] 00:00:00 [facility] Varicella 2002-11-23 Completed [facility] (varivax)(chicken 00:00:00 [place] [facility] MMR 2002-11-23 Completed [facility] 00:00:00 [facility] IPV 2002-11-23 Completed [facility] 00:00:00 [facility] Varicella 2002-11-23 Completed [facility] (varivax)(chicken 00:00:00 [place] [facility] MMR 2002-11-23 Completed [facility] 00:00:00 [facility] IPV 2002-11-23 Completed [facility] 00:00:00 [facility] Varicella 2002-11-23 Completed [facility] (varivax)(chicken 00:00:00 [place] [facility] MMR 2002-11-23 Completed [facility] 00:00:00 [facility] IPV 2002-11-23 Completed [facility] 00:00:00 [facility] Varicella 2002-11-23 Completed [facility] (varivax)(chicken 00:00:00 [place] [facility] MMR 2002-11-23 Completed [facility] 00:00:00 [facility] IPV 2002-11-23 Completed [facility] 00:00:00 [facility] Varicella 2002-11-23 Completed [facility] (varivax)(chicken 00:00:00 [place] [facility] MMR 2002-11-23 Completed [facility] 00:00:00 [facility] IPV 2002-11-23 Completed [facility] 00:00:00 [facility] Varicella 2002-11-23 Completed [facility] of (varivax)(chicken 00:00:00 [place] [facility] MMR 2002-11-23 Completed [facility] 00:00:00 [facility] IPV 2002-11-23 Completed [facility] of 00:00:00 [facility] Varicella 2002-11-23 Completed [facility] of (varivax)(chicken 00:00:[address] [facility] edical pox) Branch MMR 2002-11-23 Completed [facility] of 00:00:00 [facility] IPV 2002-11-23 Completed [facility] 00:00:00 [facility] DTAP 2002-08-03 Completed [facility] 00:00:00 [facility] HIB 4 Dose Schedule 2002-08-03 Completed Unive rsity of 00:00:00 [facility] Hep B, Adol or Pedi 2002-08-03 Completed Unive rsity of Dosage 00:00:00 [facility] TDAP 2002-08-03 Completed [facility] 00:00:00 [facility] Heamophilus 2002-08-03 Completed [facility] of Influenza B 00:00:00 [facility] DTAP 2002-08-03 Completed [facility] 00:00:00 [facility] HIB 4 Dose Schedule 2002-08-03 Completed Unive rsity of 00:00:00 [facility] Hep B, Adol or Pedi 2002-08-03 Completed Unive rsity of Dosage 00:00:00 [facility] TDAP 2002-08-03 Completed [facility] 00:00:00 [facility] Heamophilus 2002-08-03 Completed [facility] of Influenza B 00:00:00 [facility] DTAP 2002-08-03 Completed [facility] 00:00:00 [facility] HIB 4 Dose Schedule 2002-08-03 Completed [facility]ive rsity of 00:00:00 [facility] Hep B, Adol or Pedi 2002-08-03 Completed Unive rsity of Dosage 00:00:00 [facility] TDAP 2002-08-03 Completed [facility] 00:00:00 [facility] Heamophilus 2002-08-03 Completed [facility] of Influenza B 00:00:00 [facility] DTAP 2002-08-03 Completed [facility] 00:00:00 [facility] HIB 4 Dose Schedule 2002-08-03 Completed [facility]ive rsity of 00:00:00 [facility] Hep B, Adol or Pedi 2002-08-03 Completed [facility] Dosage 00:00:00 [facility] [facility] 2002-08-03 Completed [facility] 00:00:00 [facility] Heamophilus 2002-08-03 Completed [facility] of Influenza B 00:00:00 [facility] DTAP 2002-08-03 Completed [facility] 00:00:00 [facility] HIB 4 Dose Schedule 2002-08-03 Completed [facility] 00:00:00 [facility] Hep B, Adol or Pedi 2002-08-03 Completed [facility]ive [facility] of Dosage 00:00:00 [facility] TDAP 2002-08-03 Completed [facility] 00:00:00 [facility] Heamophilus 2002-08-03 Completed [facility] of Influenza B 00:00:00 [facility] DTAP 2002-08-03 Completed [facility] 00:00:00 [facility] HIB 4 Dose Schedule 2002-08-03 Completed [facility] 00:00:00 [facility] Hep B, Adol or Pedi 2002-08-03 Completed [facility] of Dosage 00:00:00 [facility] TDAP 2002-08-03 Completed [facility] 00:00:00 [facility] Heamophilus 2002-08-03 Completed [facility] of Influenza B 00:00:00 [facility] DTAP 2002-08-03 Completed [facility] 00:00:00 [facility] HIB 4 Dose Schedule 2002-08-03 Completed [facility] 00:00:00 [facility] Hep B, Adol or Pedi 2002-08-03 Completed [facility]ive [facility] of Dosage 00:00:00 [facility] TDAP 2002-08-03 Completed [facility] 00:00:00 [facility] Heamophilus 2002-08-03 Completed [facility] of Influenza B 00:00:00 [facility] DTAP 2002-08-03 Completed [facility] 00:00:00 [facility] HIB 4 Dose Schedule 2002-08-03 Completed [facility] 00:00:00 [facility] Hep B, Adol or Pedi 2002-08-03 Completed [facility] of Dosage 00:00:00 [facility] TDAP 2002-08-03 Completed [facility] 00:00:00 [facility] Heamophilus 2002-08-03 Completed [facility] Influenza B 00:00:00 [facility] DTAP 2002-08-03 Completed [facility] 00:00:00 [facility] HIB 4 Dose Schedule 2002-08-03 Completed [facility] 00:00:00 [facility] Hep B, Adol or Pedi 2002-08-03 Completed [facility] of Dosage 00:00:00 [facility] TDAP 2002-08-03 Completed [facility] 00:00:00 [facility] Heamophilus 2002-08-03 Completed [facility] Influenza B 00:00:00 [facility] DTAP 2002-08-03 Completed [facility] 00:00:00 [facility] HIB 4 Dose Schedule 2002-08-03 Completed [facility] 00:00:00 [facility] Hep B, Adol or Pedi 2002-08-03 Completed [facility]ive [facility] of Dosage 00:00:00 [facility] TDAP 2002-08-03 Completed [facility] 00:00:00 [facility] Heamophilus 2002-08-03 Completed [facility] Influenza B 00:00:00 [facility] DTAP 2002-08-03 Completed [facility] 00:00:00 [facility] HIB 4 Dose Schedule 2002-08-03 Completed [facility] 00:00:00 [facility] Hep B, Adol or Pedi 2002-08-03 Completed [facility]ive [facility] of Dosage 00:00:00 [facility] TDAP 2002-08-03 Completed [facility] 00:00:00 [facility] Heamophilus 2002-08-03 Completed [facility] Influenza B 00:00:00 [facility] DTAP 2002-08-03 Completed [facility] 00:00:00 [facility] HIB 4 Dose Schedule 2002-08-03 Completed [facility] 00:00:00 [facility] Hep B, Adol or Pedi 2002-08-03 Completed [facility] Dosage 00:00:00 [facility] TDAP 2002-08-03 Completed [facility] 00:00:00 [facility] Heamophilus 2002-08-03 Completed [facility] Influenza B 00:00:00 [facility] DTAP 2002-08-03 Completed [facility] 00:00:00 [facility] HIB 4 Dose Schedule 2002-08-03 Completed [facility] 00:00:00 [facility] Hep B, Adol or Pedi 2002-08-03 Completed [facility]ive [facility] of Dosage 00:00:00 [facility] TDAP 2002-08-03 Completed [facility] Influenza B 00:00:00 [facility] DTAP 2002-08-03 Completed [facility] 00:00:00 [facility] HIB 4 Dose Schedule 2002-08-03 Completed [facility] 00:00:00 [facility] Hep B, Adol or Pedi 2002-08-03 Completed [facility]ive [facility] of Dosage 00:00:00 [facility] TDAP 2002-08-03 Completed [facility] 00:00:00 [facility] Heamophilus 2002-08-03 Completed [facility] Influenza B 00:00:00 [facility] DTAP 2002-08-03 Completed [facility] 00:00:00 [facility] HIB 4 Dose Schedule 2002-08-03 Completed [facility] 00:00:00 [facility] Hep B, Adol or Pedi 2002-08-03 Completed [facility]ive [facility] of Dosage 00:00:00 [facility] TDAP 2002-08-03 Completed [facility] 00:00:00 [facility] Heamophilus 2002-08-03 Completed [facility] Influenza B 00:00:00 [facility] DTAP 2002-08-03 Completed [facility] 00:00:00 [facility] HIB 4 Dose Schedule 2002-08-03 Completed [facility]ive rs[facility] of 00:00:00 [facility] Hep B, Adol or Pedi 2002-08-03 Completed [facility]ive rs[facility] of Dosage 00:00:00 [facility] TDAP 2002-08-03 Completed [facility] 00:00:00 [facility] Heamophilus 2002-08-03 Completed [facility] of Influenza B 00:00:00 [facility] DTAP 2002-08-03 Completed [facility] 00:00:00 [facility] HIB 4 Dose Schedule 2002-08-03 Completed [facility] of 00:00:00 [facility] Hep B, Adol or Pedi 2002-08-03 Completed [facility]ive [facility] of Dosage 00:00:00 [facility] TDAP 2002-08-03 Completed [facility] 00:00:00 [facility] Heamophilus 2002-08-03 Completed [facility] Influenza B 00:00:00 [facility] DTAP 2002-03-15 Completed [facility] 00:00:00 [facility] HIB 4 Dose Schedule 2002-03-15 Completed [facility]ive rs[facility] of 00:00:00 [facility] TDAP 2002-03-15 Completed [facility] 00:00:00 [facility] Heamophilus 2002-03-15 Completed [facility] Influenza B 00:00:00 [facility] IPV 2002-03-15 Completed [facility] 00:00:00 [facility] DTAP 2002-03-15 Completed [facility] 00:00:00 [facility] HIB 4 Dose Schedule 2002-03-15 Completed [facility]ive [facility] of 00:00:00 [facility] TDAP 2002-03-15 Completed [facility] 00:00:00 [facility] Heamophilus 2002-03-15 Completed [facility] Influenza B 00:00:00 [facility] IPV 2002-03-15 Completed [facility] 00:00:00 [facility] DTAP 2002-03-15 Completed [facility] 00:00:00 [facility] HIB 4 Dose Schedule 2002-03-15 Completed [facility]ive rs[facility] of 00:00:00 [facility] TDAP 2002-03-15 Completed [facility] 00:00:00 [facility] Heamophilus 2002-03-15 Completed [facility] Influenza B 00:00:00 [facility] IPV 2002-03-15 Completed [facility] 00:00:00 [facility] DTAP 2002-03-15 Completed [facility] 00:00:00 [facility] HIB 4 Dose Schedule 2002-03-15 Completed [facility]ive [facility]ity of 00:00:00 [facility] TDAP 2002-03-15 Completed [facility] 00:00:00 [facility] Heamophilus 2002-03-15 Completed [facility] of Influenza B 00:00:00 [facility] IPV 2002-03-15 Completed [facility] 00:00:00 [facility] DTAP 2002-03-15 Completed [facility] 00:00:00 [facility] HIB 4 Dose Schedule 2002-03-15 Completed [facility]ive [facility]ity of 00:00:00 [facility] TDAP 2002-03-15 Completed [facility] 00:00:00 [facility] Heamophilus 2002-03-15 Completed [facility] Influenza B 00:00:00 [facility] IPV 2002-03-15 Completed [facility] 00:00:00 [facility] DTAP 2002-03-15 Completed [facility] 00:00:00 [facility] HIB 4 Dose Schedule 2002-03-15 Completed [facility]ive rs[facility] of 00:00:00 [facility] TDAP 2002-03-15 Completed [facility] 00:00:00 [facility] Heamophilus 2002-03-15 Completed [facility] Influenza B 00:00:00 [facility] IPV 2002-03-15 Completed [facility] 00:00:00 [facility] DTAP 2002-03-15 Completed [facility] 00:00:00 [facility] HIB 4 Dose Schedule 2002-03-15 Completed [facility]ive [facility] of 00:00:00 [facility] TDAP 2002-03-15 Completed [facility] 00:00:00 [facility] Heamophilus 2002-03-15 Completed [facility] Influenza B 00:00:00 [facility] IPV 2002-03-15 Completed [facility] 00:00:00 [facility] DTAP 2002-03-15 Completed [facility] 00:00:00 [facility] HIB 4 Dose Schedule 2002-03-15 Completed [facility]ive rsity of 00:00:00 [facility] TDAP 2002-03-15 Completed [facility] 00:00:00 [facility] Heamophilus 2002-03-15 Completed [facility] Influenza B 00:00:00 [facility] IPV 2002-03-15 Completed [facility] 00:00:00 [facility] DTAP 2002-03-15 Completed [facility] 00:00:00 [facility] HIB 4 Dose Schedule 2002-03-15 Completed [facility]ive [facility] of 00:00:00 [facility] TDAP 2002-03-15 Completed [facility] 00:00:00 [facility] Heamophilus 2002-03-15 Completed [facility] Influenza B 00:00:00 [facility] IPV 2002-03-15 Completed [facility] 00:00:00 [facility] DTAP 2002-03-15 Completed [facility] 00:00:00 [facility] HIB 4 Dose Schedule 2002-03-15 Completed [facility] 00:00:00 [facility] TDAP 2002-03-15 Completed [facility] 00:00:00 [facility] Heamophilus 2002-03-15 Completed [facility] Influenza B 00:00:00 [facility] IPV 2002-03-15 Completed [facility] 00:00:00 [facility] DTAP 2002-03-15 Completed [facility] 00:00:00 [facility] HIB 4 Dose Schedule 2002-03-15 Completed [facility]ive [facility] 00:00:00 [facility] TDAP 2002-03-15 Completed [facility] 00:00:00 [facility] Heamophilus 2002-03-15 Completed [facility] Influenza B 00:00:00 [facility] IPV 2002-03-15 Completed [facility] 00:00:00 [facility] DTAP 2002-03-15 Completed [facility] 00:00:00 [facility] HIB 4 Dose Schedule 2002-03-15 Completed [facility]ive [facility] of 00:00:00 [facility] TDAP 2002-03-15 Completed [facility] 00:00:00 [facility] Heamophilus 2002-03-15 Completed [facility] Influenza B 00:00:00 [facility] IPV 2002-03-15 Completed [facility] 00:00:00 [facility] DTAP 2002-03-15 Completed [facility] 00:00:00 [facility] HIB 4 Dose Schedule 2002-03-15 Completed [facility]ive [facility] of 00:00:00 [facility] TDAP 2002-03-15 Completed [facility] 00:00:00 [facility] Heamophilus 2002-03-15 Completed [facility] Influenza B 00:00:00 [facility] IPV 2002-03-15 Completed [facility] 00:00:00 [facility] DTAP 2002-03-15 Completed [facility] 00:00:00 [facility] HIB 4 Dose Schedule 2002-03-15 Completed [facility]ive [facility] of 00:00:00 [facility] TDAP 2002-03-15 Completed [facility] 00:00:00 [facility] Heamophilus 2002-03-15 Completed [facility] Influenza B 00:00:00 [facility] IPV 2002-03-15 Completed [facility] 00:00:00 [facility] DTAP 2002-03-15 Completed [facility] 00:00:00 [facility] HIB 4 Dose Schedule 2002-03-15 Completed [facility]ive [facility] of 00:00:00 [facility] TDAP 2002-03-15 Completed [facility] 00:00:00 [facility] Heamophilus 2002-03-15 Completed [facility] Influenza B 00:00:00 [facility] IPV 2002-03-15 Completed [facility] 00:00:00 [facility] DTAP 2002-03-15 Completed [facility] 00:00:00 [facility] HIB 4 Dose Schedule 2002-03-15 Completed [facility]ive [facility] of 00:00:00 [facility] TDAP 2002-03-15 Completed [facility] 00:00:00 [facility] Heamophilus 2002-03-15 Completed [facility] Influenza B 00:00:00 [facility] IPV 2002-03-15 Completed [facility] 00:00:00 [facility] DTAP 2002-03-15 Completed [facility] 00:00:00 [facility] HIB 4 Dose Schedule 2002-03-15 Completed [facility] of 00:00:00 [facility] TDAP 2002-03-15 Completed [facility] 00:00:00 [facility] Heamophilus 2002-03-15 Completed [facility] Influenza B 00:00:00 [facility] IPV 2002-03-15 Completed [facility] 00:00:00 [facility] DTAP 2001 Completed [facility] 00:00:00 [facility] HIB 4 Dose Schedule 2001 Completed [facility]ive [facility] 00:00:00 [facility] TDAP 2001 Completed [facility] 00:00:00 [facility] Heamophilus 2001 Completed [facility] Influenza B 00:00:00 [facility] IPV 2001 Completed [facility] 00:00:00 [facility] DTAP 2001 Completed [facility] 00:00:00 [facility] HIB 4 Dose Schedule 2001 Completed [facility]ive [facility] of 00:00:00 [facility] TDAP 2001 Completed [facility] 00:00:00 [facility] Heamophilus 2001 Completed [facility] Influenza B 00:00:00 [facility] IPV 2001 Completed [facility] 00:00:00 [facility] DTAP 2001 Completed [facility] 00:00:00 [facility] HIB 4 Dose Schedule 2001 Completed [facility]ive [facility] of 00:00:00 [facility] TDAP 2001 Completed [facility] 00:00:00 [facility] Heamophilus 2001 Completed [facility] Influenza B 00:00:00 [facility] IPV 2001 Completed [facility] 00:00:00 [facility] DTAP 2001 Completed [facility] 00:00:00 [facility] HIB 4 Dose Schedule 2001 Completed [facility]ive [facility] of 00:00:00 [facility] TDAP 2001 Completed [facility] 00:00:00 [facility] Heamophilus 2001 Completed [facility] Influenza B 00:00:00 [facility] IPV 2001 Completed [facility] 00:00:00 [facility] DTAP 2001 Completed [facility] 00:00:00 [facility] HIB 4 Dose Schedule 2001 Completed [facility]ive [facility] of 00:00:00 [facility] TDAP 2001 Completed [facility] 00:00:00 [facility] Heamophilus 2001 Completed [facility] Influenza B 00:00:00 [facility] IPV 2001 Completed [facility] 00:00:00 [facility] DTAP 2001 Completed [facility] 00:00:00 [facility] HIB 4 Dose Schedule 2001 Completed [facility]ive [facility] of 00:00:00 [facility] TDAP 2001 Completed [facility] 00:00:00 [facility] Heamophilus 2001 Completed [facility] Influenza B 00:00:00 [facility] IPV 2001 Completed [facility] 00:00:00 [facility] DTAP 2001 Completed [facility] 00:00:00 [facility] HIB 4 Dose Schedule 2001 Completed [facility]ive [facility] of 00:00:00 [facility] TDAP 2001 Completed [facility] 00:00:00 [facility] Heamophilus 2001 Completed [facility] Influenza B 00:00:00 [facility] IPV 2001 Completed [facility] 00:00:00 [facility] DTAP 2001 Completed [facility] 00:00:00 [facility] HIB 4 Dose Schedule 2001 Completed [facility] 00:00:00 [facility] TDAP 2001 Completed [facility] 00:00:00 [facility] Heamophilus 2001 Completed [facility] Influenza B 00:00:00 [facility] IPV 2001 Completed [facility] 00:00:00 [facility] DTAP 2001 Completed [facility] 00:00:00 [facility] HIB 4 Dose Schedule 2001 Completed [facility]ive [facility] of 00:00:00 [facility] TDAP 2001 Completed [facility] 00:00:00 [facility] Heamophilus 2001 Completed [facility] Influenza B 00:00:00 [facility] IPV 2001 Completed [facility] 00:00:00 [facility] DTAP 2001 Completed [facility] 00:00:00 [facility] HIB 4 Dose Schedule 2001 Completed [facility]ive [facility] of 00:00:00 [facility] TDAP 2001 Completed [facility] 00:00:00 [facility] Heamophilus 2001 Completed [facility] Influenza B 00:00:00 [facility] IPV 2001 Completed [facility] 00:00:00 [facility] DTAP 2001 Completed [facility] 00:00:00 [facility] HIB 4 Dose Schedule 2001 Completed [facility]ive [facility] of 00:00:00 [facility] TDAP 2001 Completed [facility] 00:00:00 [facility] Heamophilus 2001 Completed [facility] Influenza B 00:00:00 [facility] IPV 2001 Completed [facility] 00:00:00 [facility] DTAP 2001 Completed [facility] 00:00:00 [facility] HIB 4 Dose Schedule 2001 Completed [facility] of 00:00:00 [facility] TDAP 2001 Completed [facility] 00:00:00 [facility] Heamophilus 2001 Completed [facility] Influenza B 00:00:00 [facility] IPV 2001 Completed [facility] 00:00:00 [facility] DTAP 2001 Completed [facility] 00:00:00 [facility] HIB 4 Dose Schedule 2001 Completed [facility]ive [facility] of 00:00:00 [facility] TDAP 2001 Completed [facility] 00:00:00 [facility] Heamophilus 2001 Completed [facility] Influenza B 00:00:00 [facility] IPV 2001 Completed [facility] 00:00:00 [facility] DTAP 2001 Completed [facility] 00:00:00 [facility] HIB 4 Dose Schedule 2001 Completed [facility] of 00:00:00 [facility] TDAP 2001 Completed [facility] 00:00:00 [facility] Heamophilus 2001 Completed [facility] Influenza B 00:00:00 [facility] IPV 2001 Completed [facility] 00:00:00 [facility] DTAP 2001 Completed [facility] 00:00:00 [facility] HIB 4 Dose Schedule 2001 Completed [facility] 00:00:00 [facility] TDAP 2001 Completed [facility] 00:00:00 [facility] Heamophilus 2001 Completed [facility] Influenza B 00:00:00 [facility] IPV 2001 Completed [facility] 00:00:00 [facility] DTAP 2001 Completed [facility] 00:00:00 [facility] HIB 4 Dose Schedule 2001 Completed [facility] 00:00:00 [facility] TDAP 2001 Completed [facility] 00:00:00 [facility] Heamophilus 2001 Completed [facility] Influenza B 00:00:00 [facility] IPV 2001 Completed [facility] 00:00:00 [facility] DTAP 2001 Completed [facility] 00:00:00 [facility] HIB 4 Dose Schedule 2001 Completed [facility] 00:00:00 [facility] TDAP 2001 Completed [facility] 00:00:00 [facility] Heamophilus 2001 Completed [facility] Influenza B 00:00:00 [facility] IPV 2001 Completed [facility] 00:00:00 [facility] Hep B, Adol or Pedi 2001 Completed Unive [facility]ity of Dosage 00:00:00 [facility] Hep B, Adol or Pedi 2001 [...] 2001 Completed [facility]ive [facility] of Dosage 00:00:00 [facility] Hep B, Adol or Pedi 2001 Completed [facility] of Dosage 00:00:00 [facility] Hep B, Adol or Pedi 2001 Completed [facility]ive [facility] of Dosage 00:00:00 [facility] Hep B, Adol or Pedi 2001 Completed [facility] of Dosage 00:00:00 [facility] Hep B, Adol or Pedi 2001 Completed [facility] of Dosage 00:00:00 [facility] Hep B, Adol or Pedi 2001 Completed [facility]ive [facility] of Dosage 00:00:00 [facility] Hep B, Adol or Pedi 2001 Completed [facility] of Dosage 00:00:00 [facility] Hep B, Adol or Pedi 2001 Completed [facility] of Dosage 00:00:00 [facility] Hep B, Adol or Pedi 2001 Completed [facility] of Dosage 00:00:00 [facility] Hep B, Adol or Pedi 2001 Completed [facility] of Dosage 00:00:00 [facility] Hep B, Adol or Pedi 2001 Completed [facility] of Dosage 00:00:00 [facility] Hep B, Adol or Pedi 2001 Completed [facility] of Dosage 00:00:00 [facility] Hep B, Adol or Pedi 2001 Completed [facility] of Dosage 00:00:00 [facility] Hep B, Adol or Pedi 2001 Completed [facility] of Dosage 00:00:00 [facility] Hep B, Adol or Pedi 2001 Completed [facility]ive [facility] of Dosage 00:00:00 [facility] Rho (d) Immune Unknown Completed [facility] Globulin [facility] Influenza Virus Unknown Completed [facility] Vaccine Quad .5 mL [facility] 6[facility] (FLUZONE/FLULAVAL/FL UARIX) TDAP (ADACEL) Unknown Completed [facility] VACCINE [facility] MMR Unknown Completed [facility] Rho (d) Immune Unknown Completed [facility] Globulin [facility] DTAP Unknown Completed [facility] DTAP Unknown Completed [facility] DTAP Unknown Completed [facility] DTAP Unknown Completed [facility] HIB 4 Dose Schedule Unknown [facility] D[facility] Unknown Completed [facility] HIB 4 Dose Schedule Unknown [facility] HIB 4 [facility]ose Schedule Unknown [facility] HEPATITIS A Unknown Completed [facility] HEPATITIS A Unknown Completed [facility] Hep B, Adol or Pedi Unknown Completed [facility]ive [facility] Dosage [facility] Hep B, Adol or Pedi Unknown Completed [facility] Dosage [facility] Hep B, Adol or Pedi Unknown Completed [facility]ive [facility] HPV Unknown Completed [facility] HPV Unknown Completed [facility] Influenza Virus Unknown Completed Universit y of Vaccine [facility] Meningococcal Unknown Completed [facility] Varicella Unknown Completed University of (varivax)(chicken [place] [facility] pox) Branch MMR Unknown Completed [facility] Varicella Unknown Completed University of (varivax)(chicken [place] [facility] pox) Branch Rho (d) Immune Unknown Completed [facility] TDAP Unknown Completed [facility] Influenza Virus Unknown Completed Universit y of Vaccine Quad IM, [place] [facility] Preserv and ABX Free Bran ch 6 MO-64 YRS (FLUCELVAX) Influenza Virus Unknown Completed Universit y of Vaccine [facility] Influenza Virus Unknown Completed Universit y of Vaccine [facility] Influenza Virus Unknown Completed Universit y of Vaccine [facility] Influenza Virus Unknown Completed Universit y of Vaccine [facility] TDAP Unknown Completed [facility] TDAP Unknown Completed [facility] TDAP Unknown Completed [facility] TDAP Unknown Completed [facility] Heamophilus Unknown Completed [facility] Influenza B [facility] Heamophilus Unknown Completed [facility] Influenza B [facility] Heamophilus Unknown Completed [facility] Influenza B [facility] Heamophilus Unknown Completed [facility] Influenza B [facility] Influenza Virus Unknown Completed Universit y of Vaccine Quad IM 3+ [place] [facility] Influenza Virus Unknown Completed Universit y of Vaccine Quad IM 3+ [facility] Y[facility] [place] Influenza Virus Unknown Completed Universit y of Vaccine Nasal [place] [facility] [place] Influenza Virus Unknown Completed Universit y of Vaccine Nasal [facility] IPV Unknown Completed [facility] IPV Unknown Completed [facility] IPV Unknown Completed [facility] Influenza Virus Unknown Completed Universit y of Vaccine [facility] TDAP Unknown Completed [facility] Meningococcal Unknown Completed [facility] (groups A, C, Y and Branc h W-135) conjugate vaccine (MCV4P) Vital Signs Vital Name Observation Time Observation Value Comments Source Systolic blood 2023-08-15 13:02:00 105 mm[Hg] Univer sity of pressure [facility] Diastolic blood 2023-08-15 13:02:00 71 mm[Hg] Unive rsity of [facility] Heart rate 2023-08-15 13:02:00 76 /min Universi ty [facility] Respiratory rate 2023-08-15 13:02:00 18 /min [facility] Body height 2023-08-15 13:02:00 157.5 cm Universi ty [facility] Body weight 2023-08-15 13:02:00 57.607 kg Universi ty [facility] BMI 2023-08-15 13:02:00 23.23 kg/m2 Universi ty [facility] Systolic blood 2023-05-14 20:46:00 108 mm[Hg] Univer sity of [facility] Diastolic blood 2023-05-14 20:46:00 75 mm[Hg] Unive rsity of [facility] Heart rate 2023-05-14 20:46:00 102 /min Universi ty [facility] Body temperature 2023-05-14 20:46:00 36.78 Melania [facility] Respiratory rate 2023-05-14 20:46:00 18 /min [facility] Body height 2023-05-14 20:46:00 157.5 cm Universi ty [facility] Body weight 2023-05-14 20:46:00 60.328 kg Universi ty [facility] BMI 2023-05-14 20:46:00 24.33 kg/m2 Universi ty [facility] Systolic blood 2023-02-18 20:19:00 111 mm[Hg] Univer sity of pressure [facility] Diastolic blood 2023-02-18 20:19:00 76 mm[Hg] Unive rsity of pressure [facility] Heart rate 2023-02-18 20:19:00 112 /min Universi ty of [facility] Body temperature 2023-02-18 20:19:00 36.78 Melania Univ ersity of [place] [facility] Respiratory rate 2023-02-18 20:19:00 18 /min Univ ersity of [place] [facility] Body height 2023-02-18 20:19:00 157.5 cm Universi ty of [place] [facility] Body weight 2023-02-18 20:19:00 60.147 kg Universi ty of [place] [facility] BMI 2023-02-18 20:19:00 24.25 kg/m2 Universi ty of [facility] Systolic blood 2022-11-18 20:53:00 100 mm[Hg] Univer sity of pressure [facility] Diastolic blood 2022-11-18 20:53:00 70 mm[Hg] Unive rsity of pressure [facility] Heart rate 2022-11-18 20:53:00 97 /min Universi ty of [facility] Body temperature 2022-11-18 20:53:00 37.06 Melania Univ ersity of [place] [facility] Respiratory rate 2022-11-18 20:53:00 18 /min Univ ersity of [facility] Body height 2022-11-18 20:53:00 157.5 cm Universi ty of [place] [facility] Body weight 2022-11-18 20:53:00 59.421 kg Universi ty of [place] [facility] BMI 2022-11-18 20:53:00 23.96 kg/m2 Universi ty of [facility] Systolic blood 2022-08-26 20:11:00 113 mm[Hg] Univer sity of pressure [facility] Diastolic blood 2022-08-26 20:11:00 80 mm[Hg] Unive rsity of pressure [facility] Heart rate 2022-08-26 20:11:00 91 /min Universi ty of [place] [facility] Body temperature 2022-08-26 20:11:00 36.72 Melania Univ ersity of [place] [facility] Respiratory rate 2022-08-26 20:11:00 16 /min Univ ersity of [place] [facility] Body height 2022-08-26 20:11:00 157.5 cm Universi ty of [place] [facility] Body weight 2022-08-26 20:11:00 57.879 kg Universi ty of [place] [facility] BMI 2022-08-26 20:11:00 23.34 kg/m2 Universi ty of [facility] Systolic blood 2022-07-03 20:26:00 108 mm[Hg] Univer sity of pressure [facility] Diastolic blood 2022-07-03 20:26:00 76 mm[Hg] Unive rsity of pressure [facility] Heart rate 2022-07-03 20:26:00 103 /min Universi ty of [facility] Body temperature 2022-07-03 20:25:00 36.89 Melania Univ ersity of [facility] Respiratory rate 2022-07-03 20:25:00 16 /min Univ ersity of [facility] Body height 2022-07-03 20:25:00 157.5 cm Universi ty of [facility] Body weight 2022-07-03 20:25:00 58.968 kg Universi ty of [facility] BMI 2022-07-03 20:25:00 23.78 kg/m2 Universi ty of [facility] Branch Oxygen saturation in 2022-07-03 20:25:00 98 /min [facility] Arterial blood by [facility] Pulse oximetry Branch Height 2020-12-01 10:53:00 154.94 CM Weight 2020-12-01 10:53:00 50.8 KG Procedures Procedure Date / Time Performed Performing Clinician [facility] e REFERRAL- 2023-06-03 05:01:00 [facility]PONSE Name [facility] PATIENT FINANCIAL 2023-02-18 19:57:32 Doctor Unassigned, No [facility] POLICY Name [facility] ASSIGNMENT OF BENEFITS 2022-11-18 20:21:23 Doctor Unassigned, No [facility] Name [facility] Encounters Start End Encounter Admission Attending Care Care Encounter Source Date/Time Date/Time Type Type Clinicians Facility Department ID 2021-09-11 Emergency [facility] [id number] Univers 07:20:36 ity of [facility] 2021-09-11 Emergency [facility] [id number] Univers 07:18:00 ity of [facility] 2021-09-11 Emergency [facility] [id number] Univers 05:25:53 ity of [facility] 2021-09-10 Emergency [facility] [id number] Univers 12:34:55 ity of [facility] 2021-09-10 Outpatient X [facility] ERT [id number] Univers 00:32:19 ity of [facility] 2021-09-10 Emergency [facility] [id number] Univers 00:25:14 ity of [facility] 2021-09-09 Emergency [facility] [id number] Univers 03:49:13 ity of [facility] 2021-09-07 Emergency [facility] [id number] Univers 12:08:59 ity of [facility] 2021-09-06 Outpatient P MAMB JONI [id number] Univers 14:24:34 ity of [facility] 2021-09-06 Outpatient P MAMB JONI [id number] Univers 14:21:12 ity of [facility] 2021-09-06 Outpatient P [facility] JONI [id number] Univers 13:39:14 ity of [facility] 2021-09-06 Outpatient P MAMB JONI [id number] Univers 13:35:43 ity of [facility] 2023-10-04 2023-10-04 Outpatient SFA SFA [id number] Dirk 14:17:02 14:17:02 1125 [facility] 2023-09-17 2023-09-17 Outpatient SFA SFA [id number] Dirk 16:48:16 16:48:16 1108 [facility] 2023-09-11 2023-09-11 Outpatient SFA SFA [id number] Dirk 09:11:57 09:11:57 1102 [facility] 2023-08-26 2023-08-26 Outpatient SFA SFA [id number] Dirk 15:44:47 15:44:47 1017 [facility] 2023-08-15 2023-08-15 Nurse Nurse, [facility] 1.2.840.114 [id number] Univers 08:00:00 08:15:00 Visit Zarina Kennedy 350.1.13.10 ity [facility] 4.2.7.2.686 Cathy AGEE [id number] Md dic[address] 2023-08-15 2023-08-15 Outpatient R ZARINA KENNEDY [facility] [id number] Univers 08:00:00 08:00:00 ity [facility] 2023-08-14 2023-08-14 Outpatient R XIN, [facility] [id number] Univers 08:15:00 08:15:00 [facility]23-07-31 2023-07-31 Outpatient R YADIRA, [facility] [id number] Univers 09:30:00 09:30:00 [facility] 2023-06-26 2023-06-26 Outpatient SFA [facility] [id number] Dirk 14:44:34 14:44:34 0817 [facility] 2023-06-11 2023-06-11 Outpatient SFA [facility] [id number] Dirk 10:54:47 10:54:47 0802 [facility] [place] 2023-06-03 2023-06-03 Orders Doctor JUSTIN 1.2.840.114 [id number] Univers 00:00:00 00:00:00 Only Unassigned, [place] 350.1.13.10 ity of [facility] 4.2.7.2.686 Tk as [phone] [address] 2023-05-21 2023-05-21 Outpatient SFA JOSE ANTONIO [id number] Dirk 09:11:27 09:11:27 0712 [facility] 2023-05-14 2023-05-14 Nurse Nurse, [facility] 1.2.840.114 [id number] Univers 15:30:00 15:45:47 Visit Norma Partida 350.1.13.10 ity [facility] [place] [id number] Md dical NAL [address] [facility] 2023-05-14 2023-05-14 Outpatient R JAQUAN [facility] [id number] Univers 15:30:00 15:30:00 NORMA lamary [facility] 2023-04-30 2023-04-30 Outpatient SFA SFA [id number] Dirk 14:56:01 14:56:01 0621 F [place] 2023-04-21 2023-04-21 Outpatient R HINA SANON [facility] [id number] Univers 16:15:00 16:15:00 HINA SANON itbandar [facility] 2023-03-21 2023-03-21 Outpatient R NICOLE [facility] [id number] Univers 14:00:00 14:00:00 WENDY herminio [facility] 2023-03-18 2023-03-18 Outpatient [facility] [id number] Dirk 15:33:41 15:33:41 0509 [facility] 2023-02-28 2023-02-28 Zarina White [facility] 1.2.840.114 [id number] Univers 00:00:00 00:00:00 Marcus GRADY 350.1.13.10 i ty [facility] [place] [id number] [address] 2023-02-18 2023-02-18 Nurse Nurse, [facility] 1.2.840.114 [id number] Univers 15:30:00 15:30:00 Visit Wendy Rivera MIGUEL A 350.1.13.10 ity [facility] [place] [id number] [address] 2023-02-18 2023-02-18 Outpatient R NICOLE [facility] [id number] Univers 15:30:00 15:15:55 [facility] 2023-02-18 2023-02-18 Orders Doctor ANDERSON 1.2.840.114 [id number] Univers 00:00:00 00:00:00 Only Unassigned, [place] 350.1.13.10 ity of [facility] 4.2.7.2.686 Tk as [id number] [address] 2023-02-12 2023-02-12 Outpatient [facility] [id number] Dirk 15:57:07 15:57:07 0405 F [place] 2022-12-31 2022-12-31 Outpatient R ZARINA KENNEDY [facility] [id number] Univers 14:30:00 14:30:00 ity [facility] 2022-12-28 2022-12-28 Telephone Zarina Kennedy [facility] 1.2.840.114 [id number] Univers 00:00:00 00:00:00 Cam [place] 350.1.13.10 i ty of [place].2.[place] [id number] Md dical NAL [address] [place] [address] 2022-12-23 2022-12-23 Telephone Zarina Kennedy [facility] 1.2.840.114 [id number] Univers 00:00:00 00:00:00 Cam [place] 350.1.13.10 i ty of [place] 4.2.7.2.[place] [id number] Md dical NAL [address] [place] [address] 2022-12-20 2022-12-20 Outpatient [facility] [id number] Dirk 15:45:35 15:45:35 [id number] F [place] 2022-12-05 2022-12-05 Outpatient R ZARINA KENNEDY [facility] [id number] Univers 08:00:00 08:[facility]00 [facility] 2022-11-28 2022-11-28 [facility] 1.2.840.114 [id number] Univers 00:00:00 00:00:00 Wendy MIGUEL A 350.1.13.10 i ty of [place] 4.2.7.2.[place] [id number] Md dicwy NAL [address] [place] [address] 2022-11-21 2022-11-21 Outpatient [facility] [id number] Dirk 08:56:00 08:56:00 0112 F [place] 2022-11-18 2022-11-18 Outpatient R NICOLE [facility] [id number] Univers 14:30:00 15:20:30 WENDY [facility] 2022-11-18 2022-11-18 [facility] 1.2.148.217 [id number] Univers 14:30:00 15:20:30 Visit Wendy GRADY 350.1.13.10 i ty of [place] 4.2.7.2.[place] [id number] Md dical NAL 134 [facility] 2022-11-18 2022-11-18 Orders Doctor JUSTIN 1.2.840.114 [id number] Univers 00:00:00 00:00:00 Only Unassigned, [place] 350.1.13.[address] [place] [facility] 4.2.7.2.686 Tk as [id number] [address] 2022-10-29 2022-10-29 Outpatient R LAWRENCE [facility] [id number] Univers 09:00:00 09:00:00 GUTIERREZ durham [facility] 2022-10-28 2022-10-[address] [facility], UNIVERSIT 1.2.840.114 [id number] Univers 00:00:00 00:00:[address] [facility] HEALTH 350.1.13.10 i ty [place] [id number] [facility] [address] 2022-10-23 2022-10-23 Telephone Lawrence[facility] 1.2.840.114 [id number] Univers 00:00:00 00:00:[address] [facility] HEALTH 350.1.13.10 i ty of [place] [id number] [address] 2022-08-26 2022-08-26 Outpatient R NICOLE [facility] [id number] Univers 14:30:00 15:11:07 WENDY durham [facility] 2022-08-26 2022-08-26 Nurse Nurse, [facility] Women's Health [facility] 1.2.840.114 [id number] Univers 14:30:00 15:11:07 Visit Wendy Rivera 350.1.13.10 ity of [place] 4[place]2.7.2.[place] [id number] Md dical NAL 134 [facility] 2022-07-03 2022-07-03 Combination Worker [facility] UNIVERSIT 1.2.840.114 [id number] Univers 17:00:00 17:15:00 Visit Gutierrez [facility] HEALTH 350.1.13.10 ity of [place]2.[place].2.[place] [id number] [facility] [address] 2022-07-03 2022-07-03 Outpatient R LAWRENCE [facility] [id number] Univers 16:00:00 16:06:31 GUTIERREZ [facility] 2022-07-03 2022-07-03 Outpatient R LAWRENCE [facility] [id number] Univers 16:00:00 16:06:31 [facility] 2022-07-03 2022-07-03 Office Isha Marie [facility] 1.2.840.114 [id number] Univers 16:00:00 16:06:31 Visit Lawrence Gutierrez [facility] 350.1.13.10 ity of [place] [id number] [facility] [address] 2022-07-03 2022-07-03 Outpatient R LAWRENCE, [facility] [id number] Univers 16:00:00 16:06:31 [facility] 2022-06-19 2022-06-19 Telephone [place], UNIVERSIT 1.2.840.114 [id number] Univers 00:00:00 00:00:00 Nephrology Y HEALTH 350.1.13.10 ity of [place] [id number] [facility] [address] 2022-06-12 2022-06-12 Telephone [place], UNIVERSIT 1.2.840.114 [id number] Univers 00:00:00 00:00:00 Nephrology Y HEALTH 350.1.13.10 ity of [place] [id number] [facility] [address] 2022-06-03 2022-06-03 Outpatient Stevo RIVERA [facility] [id number] Univers 14:00:00 14:15:27 WENDY durham [facility] 2022-06-03 2022-06-03 Nurse Nurse, [facility] 1.2.840.114 [id number] Univers 14:00:00 14:15:27 Visit Wendy Rivera 350.1.13.10 ity of [place] 4[place]2.[place].2.[place] [id number] Md dic[address] 2022-04-04 2022-04-04 Outpatient R NICOLE [facility] [id number] Univers 15:00:00 15:00:00 WENDY herminio [facility] 2022-04-03 2022-04-03 Outpatient R NICOLE [facility] [id number] Univers 13:10:05 23:59:00 WENDY ity [facility] 2022-04-03 2022-04-03 [facility] 1.2.840.114 [id number] Univers 13:00:00 23:59:00 Encounter Wendy MIGUEL A 350.1.13.10 ity of [place]2.[place] [id number] [facility] [address] 2022-04-03 2022-04-03 Orders Doctor JUSTIN 1.2.840.114 [id number] Univers 00:00:00 00:00:00 Only Unassigned, [place] 350.1.13.[address] [place] [facility] 4.2.7.2.686 Tk as [id number] [facility] [address] 2022-04-03 2022-04-03 Case [facility] 1.2.938.364 [id number] Univers 00:00:00 00:00:00 Management Wendy MIGUEL A 350.1.13.10 ity of [place].2.[place] [id number] Md dical NAL [address] [place] [address] 2022-03-27 2022-03-27 Outpatient ZARINA DERAS [facility] [id number] Univers 09:30:00 09:30:00 ity of [facility] 2022-03-27 2022-03-27 Outpatient ZARINA DERAS [facility] [id number] Univers 09:30:00 09:30:00 ity of [facility] 2022-03-27 2022-03-27 Outpatient Stevo KENNEDY [facility] [id number] Univers 09:30:00 09:30:00 ity [facility] 2022-03-07 2022-03-07 Outpatient R ZARINA KENNEDY [facility] [id number] Univers 14:00:00 14:18:10 ity [facility] 2022-03-07 2022-03-07 Nurse Nurse, [facility] 1.2.840.114 [id number] Univers 14:00:00 14:18:10 Visit BrentZarina Marcus GRAD[place] 350.1.13.10 ity of [place] [id number] Md dical [address] 2022-02-28 2022-02-28 Telephone Nicole [facility] 1.2.840.114 [id number] Univers 00:00:00 00:00:00 Wendy GRADY 350.1.13.10 i ty [facility] 4.2.[place] [id number] Md dical NAL [address] [place] [address] 2022-02-26 2022-02-26 Outpatient R JAQUAN [facility] [id number] Univers 15:00:00 16:12:25 NORMA durham [facility] 2022-02-26 2022-02-26 Office Wendy Rivera [facility] 1.2.840.[id number] [facility] 15:00:00 16:12:25 Visit Jaquan Norma Alon [place] 350.1.13.10 ity of [facility] 4.2.7.2.[place] [id number] Md dical NAL [address] [place] [address] 2021-12-13 2021-12-13 Outpatient R ZARINA KENNEDY [facility] [id number] Univers 10:30:00 10:42:25 ity [facility] 2021-12-13 2021-12-13 Nurse Nurse, [facility] 1.2.840.[id number] [facility] 10:30:00 10:42:25 Visit KennedyBennettmarlon GRADY 350.1.13.10 ity [facility] 4.2.7.2.[place] [id number] Md dical [address] 2021-12-13 2021-12-13 Outpatient R [facility] [id number] Univers 10:30:00 10:30:00 ity [facility] 2021-12-13 2021-12-13 Orders Doctor JUSTIN 1.2.840.114 [id number] Univers 00:00:00 00:00:00 Only Unassigned, [place] 350.1.13.[address] [place] [facility] 4.2.7.2.686 Tk as [id number] [facility] [address] 2021-12-07 2021-12-07 Outpatient R STAN TY [facility] [id number] Univers 13:00:00 13:00:00 KARSON STAN ity [facility] 2021-11-28 2021-11-28 Emergency X Pedro ALVARADO [facility] ERT [id number] Univers 12:55:00 16:24:00 ity [facility] 2021-11-28 2021-11-28 Emergency Pedro Alvarado [facility] 1.2.840.114 [id number] Univers 12:55:00 16:24:00 Cinthia GRADY 350.1.13.10 i ty of [place] 4.2.7.2.[place] [id number] [facility] [address] 2021-11-28 2021-11-28 Orders Doctor JUSTIN 1.2.840.114 [id number] Univers 00:00:00 00:00:00 Only Unassigned, [place] 350.1.13.10 [facility] 4.2.7.2.686 Tk as [id number] [address] 2021-10-22 2021-10-22 Outpatient R NICOLE [facility] [id number] Univers 09:00:00 09:29:56 WENDY [facility] 2021-10-22 2021-10-22 [facility] 1.2.424.463 [id number] Univers 08:40:07 09:29:56 Visit Wendy GRDAY 350.1.13.10 i ty of [place] 4[place]2.[place].2.[place] [id number] Md dical NAL [address] [place] [address] 2021-09-27 2021-09-27 Outpatient R NICOLE [facility] [id number] Univers 10:30:00 10:53:39 WENDY ity of [facility] 2021-09-27 2021-09-27 Routine Zarina Kennedy Marcus [facility] 1.2.840.114 [id number] Univers 10:24:13 10:53:39 Wendy Rivera 350.1.13.10 ity of Visit [place] [id number] Md dical NAL [address] [place] [address] 2021-09-12 2021-09-12 Telephone Nicole [facility] 1.2.840.114 [id number] Univers 00:00:00 00:00:00 Wendy GRADY 350.1.13.10 i ty of [place] 4[place]2.7.2.[place] [id number] Md dic[address] 2021-09-10 2021-09-11 Inpatient P BENNETT KENNEDYEN [facility] ERT [id number] Univers 04:05:00 16:00:00 ity of [facility] 2021-09-10 2021-09-11 Hospital Bennett Kennedyen [facility] 1.2.840.114 [id number] Univers 04:05:00 16:00:00 Encounter Marcus GRADY 350.1.13.10 ity [facility] 4.2.7.2.686 [facility] [id number] [address] 2021-09-10 2021-09-10 Anesthesia Jordan Gaspar [facility] 1.2.840.11 [id number] Univers 08:35:00 16:19:00 Event Brando Lee 350.1.13.10 ity [facility] 4.2.7.2.686 [facility] [id number] [address] 2021-09-07 2021-09-07 Laboratory Only, Adc Test [facility] 1.2.840. 114 [id number] Univers 10:06:22 10:21:22 Only Kennedy, Zarina GRADY 350.1.13.10 ity of [place] 4.2.7.2.686 [facility] [id number] [facility] [address] 2021-09-07 2021-09-07 Outpatient R ZARINA KENNEDY [facility] [id number] Univers 10:15:00 10:15:00 ity of [facility] 2021-09-06 2021-09-06 Routine Brent [facility] 1.2.941.099 [id number] Univers 11:00:13 11:58:29 Marcus GRADY 350.1.13.10 ity of Visit [facility] [place] [phone] Md dical [address] 2021-09-06 2021-09-06 Outpatient R ZARINA KENNEDY [facility] [id number] Univers 11:00:00 11:58:29 ity of [facility] 2021-09-04 2021-09-04 Hospital Zarina Kennedy [facility] 1.2.840.114 [id number] Univers 13:23:00 15:35:00 Encounter MingoNorma bryan Alon Grady 350.1.13.10 ity of [place] 4.2.7.2.686 [facility] [phone] [facility] [address] 2021-09-04 2021-09-04 Outpatient P ZARINA KENNEDY [facility] ERT [id number] Univers 13:23:00 15:35:00 ity of [facility] 2021-09-04 2021-09-04 Outpatient R NICOLE [facility] [id number] Univers 11:00:00 12:14:54 WENDY itbandar [facility] 2021-09-04 2021-09-04 Routine Nicole [facility] 1.2.840.114 [id number] Univers 10:42:04 12:14:54 Wendy Mora 350.1.13.10 i ty of [place] [place] [phone] [facility] [address] 2021-09-04 2021-09-04 Telephone Zarina Kennedy [facility] 1.2.840.114 [id number] Univers 00:00:00 00:00:00 Cam [place] 350.1.13.10 i [place] [phone] Md dical nal [address] [place] [address] 2021-09-03 2021-09-03 Outpatient R NICOLE [facility] [id number] Univers 16:15:00 16:15:00 WENDY durham [facility] 2021-08-27 2021-08-27 Outpatient R NICOLE [facility] [id number] Univers 16:30:00 16:30:00 WENDY durham [facility] 2021-08-27 2021-08-27 Routine Zarina Kennedy [facility] 1.2.840.114 [id number] Univers 15:51:06 16:29:15 Wendy Rivera 350.1.13.10 ity of [place] [phone] [address] 2021-08-25 2021-08-25 Hospital Kary Oseguera [facility] 1.2.840.114 [id number] Univers 22:15:00 23:30:00 Encounter [place] 350.1.13.10 it[place] of [place] [phone] [address] 2021-08-25 2021-08-25 Emergency Kary Oseguera [facility] 1.2.840.114 [id number] Univers 09:36:00 18:31:00 [place] 350.1.13.10 i ty of [place].2.[place] [phone] [address] 2021-08-24 2021-08-24 Telephone Zarina Kennedy [facility] 1.2.840.114 [id number] Univers 00:00:00 00:00:00 Cam [place] 350.1.13.10 i ty of [place] 4[place].2.[place] [phone] Md dic[address] 2021-08-24 2021-08-24 Telephone Nicole [facility] 1.2.840.114 [id number] Univers 00:00:00 00:00:00 Wendy Grady 350.1.13.10 i ty of [place] 4[place].2.[place] [phone] Md dical nal [address] [place] [address] 2021-08-20 2021-08-20 Routine Brent [facility] 1.2.787.186 [id number] Univers 08:20:54 09:06:30 Marcus Grady 350.1.13.10 ity of [place].2.[place] [phone] Md dic[address] 2021-08-20 2021-08-20 Outpatient R BRENT [facility] [id number] Univers 08:00:00 08:00:00 ity of [facility] 2021-08-20 2021-08-20 Telephone Kennedy [facility] 1.2.840.114 [id number] Univers 00:00:00 00:00:00 Marcus Grady 350.1.13.10 i ty of [place] 4[place]2.[place].2.[place] [phone] Md dic[address] 2021-08-20 2021-08-20 Orders Doctor JUSTIN 1.2.840.114 [id number] Univers 00:00:00 00:00:00 Only Unassigned, [place] 350.1.13.[address] it[address] [place] [facility] 4.2.7.2.686 Tk as [phone] [facility] [address] 2021-08-17 2021-08-17 Hospital Brent [facility] 1.2.840.114 [id number] Univers 19:05:00 21:15:00 Encounter Marcus Grady 350.1.13.10 ity of [place] 4[place]7.2.[place] [phone] [facility] [address] 2021-08-17 2021-08-17 Orders Doctor JUSTIN 1.2.840.114 [id number] Univers 00:00:00 00:00:00 Only Unassigned, [place] 350.1.13.[address] [place] 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 2, Adc Lab [facility] 1.2.840.114 [id number] Univers 13:32:20 13:47:20 Visit Wendy Rivera 350.1.13.10 [place] of [place] 4[place]2.7.2.[place] [phone] Md dical nal 353 [facility] 2021-08-13 2021-08-13 Routine Nicole [facility] 1.2.302.051 [id number] Univers 12:46:01 13:29:24 Wendy Grady 350.1.13.10 ity of Visit [place] 4[place]2.7.2.[place] [phone] Md dical nal 134 [facility] 2021-08-11 2021-08-11 Nurse Lashay Merritt 1.2.840.114 [id number] Univers 00:00:00 00:00:00 Triage [place] 350.1.13.10 it y of HOSPITAL 4.2.7.2.686 Tk as [phone] [facility] [address] 2021-08-03 2021-08-03 Hospital Zarina Kennedy [facility] 1.2.840.114 [id number] Univers 10:23:00 13:15:00 Encounter Norma Partida 350.1.13.10 ity of [place] 4.2.7.2.686 [place] [phone] [facility] [address] 2021-08-03 2021-08-03 Telephone Zarina Kennedy [facility] 1.2.840.114 [id number] Univers 00:00:00 00:00:00 Marcus Grady 350.1.13.10 i ty of [place] 4[place].2.[place] [phone] [address] 2021-08-03 2021-08-03 Orders Doctor JUSTIN 1.2.840.114 [id number] Univers 00:00:00 00:00:00 Only Unassigned, [place] 350.1.13.[address] [place] [facility] 4.2.7.2.686 Tk as [phone] [address] 2021-08-01 2021-08-01 Routine Zarina Kennedy [facility] 1.2.840.114 [id number] Univers 15:55:38 16:48:02 Wendy Rivera 350.1.13.10 ity of [place] 4[place].2.[place] [phone] [address] 2021-08-01 2021-08-01 [facility] [id number] Univers 16:15:00 16:15:00 [facility]-07-20 2021-07-20 Combination Worker Ultrasound, [facility] 1.2 .840.114 [id number] Univers 13:13:35 13:57:45 Visit Sherry Cueto 350.1 .13.10 it[place] of [place] 4.2.7.2.[place] [phone] [address] 2021-07-20 2021-07-20 Outpatient P [facility] [id number] Univers 13:30:00 13:30:00 ity of [facility] 2021-07-18 2021-07-18 [facility] [id number] Univers 09:45:00 09:45:00 WENDY ity [facility] 2021-07-18 2021-07-18 Outpatient R [facility] [id number] Univers 08:15:00 08:15:00 ity [facility] 2021-07-17 2021-07-17 Routine Zarina Kennedy [facility] 1.2.089.069 [id number] Univers 15:44:11 16:52:37 Marcus Grady 350.1.13.10 ity of [place] 4[place]7.2.[place] [phone] [address] 2021-07-17 2021-07-17 Routine Zarina Kennedy [facility] 1.2.231.196 [id number] Univers 15:44:11 16:52:37 Cam [place] 350.1.13.10 ity of Visit [place] 4.2.7.2.[place] [phone] [address] 2021-07-17 2021-07-17 Outpatient R [facility]ENT [facility] [id number] Univers 16:15:00 16:15:00 ity of [facility] 2021-07-17 2021-07-17 Orders Doctor JUSTIN 1.2.840.114 [id number] Univers 00:00:00 00:00:00 Only Unassigned, [place] 350.1.13.10 ity [place] [facility] 4.2.7.2.686 Tk as [phone] [address] 2021-07-17 2021-07-17 Orders Doctor JUSTIN 1.2.840.114 [id number] Univers 00:00:00 00:00:00 Only Unassigned, [place] 350.1.13.10 ity of [place] [facility]OS[facility]ITAL 4.2.7.2.686 Tk as [phone] [address] 2021-07-09 2021-07-09 Outpatient R [facility] [id number] Univers 11:15:00 11:15:00 ity of [facility] 2021-07-03 2021-07-03 Telephone Brent [facility] 1.2.840.114 [id number] Univers 00:00:00 00:00:00 Cam [place] 350.1.13.10 i ty of [place] 4.2.7.2.[place] [phone] [address] 2021-07-03 2021-07-03 Telephone Brent [facility] 1.2.840.114 86 [id number] Univers 00:00:00 00:00:00 Cam [place] 350.1.13.10 i ty of [place] 4.2.7.2.[place] [phone] Md dical nal 134 [facility] 2021-06-28 2021-06-28 Combination Worker 2, Adc Lab [facility] 1.2.840.114 [id number] Univers 10:40:29 10:55:29 Visit Zarina Kennedy Marcus Grady 350.1.13.10 ity of [place] 4[place]2.7.2.[place] [phone] Md dical nal 353 [facility] 2021-06-28 2021-06-28 Combination Worker 2, Adc Lab [facility] 1.2.840.114 [id number] Univers 10:40:29 10:55:29 Visit Bennett Kennedymarlon Jameston 350.1.13.10 it[place] of [place] 4.2.7.2.[place] [phone] Md dicwy nal [address] [place] [address] 2021-06-28 2021-06-28 Outpatient R [facility] [id number] Univers 10:00:00 10:00:00 ity of [facility] 2021-06-28 2021-06-28 Telephone Zarina Kennedy [facility] 1.2.840.114 [id number] Univers 00:00:00 00:00:00 Marcus Jameston 350.1.13.10 i ty of [place] 4.2.7.2.[place] [phone] Md dical nal [address] [place] [address] 2021-06-25 2021-06-25 Routine Zarina Kennedy [facility] 1.2.171.157 [id number] Univers 10:31:20 11:38:32 Marcus Grady 350.1.13.10 ity of Visit [place] 4.2.7.2.[place] [phone] Md dical nal 134 [facility] 2021-06-25 2021-06-25 Outpatient R ZARINA KENNEDY [facility] [id number] Univers 11:00:00 11:00:00 ity [facility] 2021-06-11 2021-06-11 Emergency Zarina Kennedy [facility] 1.2.840.114 [id number] Univers 17:01:00 19:52:00 Cam [place] 350.1.13.10 i ty of [place] 4[place]7.2.[place] [phone] [address] 2021-06-11 2021-06-11 Telephone Zarina Kennedy [facility] 1.2.840.114 [id number] Univers 00:00:00 00:00:00 Cam [place] 350.1.13.10 i ty of [place] 4.2.7.2.[place] [phone] Md dical nal 134 [facility] 2021-06-07 2021-06-07 Telephone Zarina Kennedy [facility] 1.2.840.114 [id number] Univers 00:00:00 00:00:00 Cam [place] 350.1.13.10 i ty of [place] 4[place]2.7.2.[place] [phone] [facility] 134 [facility] 2021-05-29 2021-05-29 Nurse Nurse, [facility] Women's Health [facility] 1.2.840.114 [id number] Univers 15:17:17 15:49:09 Visit Zarina Kennedy [place] 350.1.13.10 ity of [place] 4[place]2.7.2.[place] [phone] Md dicwy nal 134 [facility] 2021-05-29 2021-05-29 Combination Worker 2, [facility] Lab [facility] 1.2.840.114 [id number] Univers 15:07:51 15:22:51 Visit Zarina Kennedy 350.1.13.10 [place] of [place] 4[place]7.2.[place] [phone] Md dicpranav [facility] 353 [facility] 2021-05-29 2021-05-29 Outpatient R [facility] [id number] Univers 15:00:00 15:00:00 ity of [facility] 2021-05-29 2021-05-29 Telephone Zarina Kennedy [facility] 1.2.840.114 [id number] Univers 00:00:00 00:00:00 Cam [place] 350.1.13.10 i ty of [place] 4[place]7.2.[place] [phone] [address] 2021-05-28 2021-05-28 Routine Zarina Kennedy [facility] 1.2.878.480 [id number] Univers 13:26:09 14:18:04 Marcus Grady 350.1.13.10 ity of Visit [place] 4.2.7.2.[place] [phone] [address] 2021-05-28 2021-05-28 Outpatient R KENNEDY ZARINA [facility] [id number] Univers 13:30:00 13:30:00 ity of [facility] 2021-05-09 2021-05-09 Outpatient R NICOLE [facility] [id number] Univers 11:15:00 11:15:00 WENDY ity [facility] 2021-05-09 2021-05-09 Routine Nicole [facility] 1.2.959.212 [id number] Univers 10:58:18 11:13:18 Wendy Grady 350.1.13.10 ity of Visit [place] 4[place]7.2.[place] [phone] [address] 2021-05-07 2021-05-07 Telephone Zarina Kennedy [facility] 1.2.840.114 [id number] Univers 00:00:00 00:00:00 Marcus Grady 350.1.13.10 i ty of [place] 4[place]7.2.[place] [phone] [address] 2021-04-27 2021-04-27 Combination Worker Ultrasound, [facility] 1.2 .840.114 [id number] Univers 12:57:28 13:57:28 Visit Kian Gutierrez 350.1.13.10 it[place] of [place] 4[place]2.7.2.[place] [phone] [address] 2021-04-27 2021-04-27 Outpatient R [facility] [id number] Univers 13:00:00 13:00:00 ity of [facility] 2021-04-24 2021-04-24 Telephone Bennett Kennedyen [facility] 1.2.840.114 [id number] Univers 00:00:00 00:00:00 Cam [place] 350.1.13.10 i ty of [place] 4.2.7.2.[place] [phone] Md dical nal 134 [facility] 2021-04-21 2021-04-21 Telemedici Mihai Fernandez [facility] 1.2. 840.114 [id number] Univers 16:26:26 16:59:11 ne Visit Unknown, Attending HEALTH 350.1.13.1 0 ity [facility] [place]2.7.2.[place] [phone] [facility] Primary & [address] [facility] 2021-04-21 2021-04-21 Outpatient R UNKNOWN, [facility] [id number] Univers 16:30:00 16:30:00 ATTENDING ity of [facility] 2021-04-19 2021-04-19 Emergency Brent Zarina [facility] 1.2.840.114 [id number] Univers 11:49:00 16:10:00 Cam [place] 350.1.13.10 i ty of [place] 4[place]7.2.[place] [phone] [facility] [address] 2021-04-19 2021-04-19 Telephone Kennedy Zarina [facility] 1.2.840.114 [id number] Univers 00:00:00 00:00:00 Marcus [place] 350.1.13.10 i ty of [place] 4.2.7.2.[place] [phone] Md dical nal 134 [facility] 2021-04-11 2021-04-11 Combination Worker 2, Adc Lab [facility] 1.2.840.114 [id number] Univers 13:32:48 13:47:48 Visit Zarina Kennedy 350.1.13.10 ity of [place] 4[place]2.7.2.[place] [phone] Md dical nal 353 [facility] 2021-04-11 2021-04-11 Routine Zarina Kennedy [facility] 1.2.982.485 [id number] Univers 13:05:36 13:28:34 Cam [place] 350.1.13.10 ity of [place] 4.2.7.2.[place] [phone] [address] 2021-04-11 2021-04-11 Outpatient R ZARINA KENNEDY [facility] [id number] Univers 13:00:00 13:00:00 ity of [facility] 2021-03-14 2021-03-14 [facility] 1.2.109.740 [id number] Univers 12:43:31 13:35:28 Wendy [place] 350.1.13.10 ity of [place] 4.2.7.2.[place] [phone] [address] 2021-03-14 2021-03-14 [facility] 1.2.038.443 [id number] [id number] 12:43:31 13:35:28 Wendy [place] 350.1.13.10 Visit [place] 4.2.7.2.686 Professio [phone] [address] 2021-03-14 2021-03-14 Outpatient R NICOLE [facility] [id number] Univers 13:00:00 13:00:00 WENDY ity [facility] 2021-02-28 2021-02-28 Telephone Zarina Kennedy [facility] 1.2.840.114 [id number] Univers 00:00:00 00:00:00 Cam [place] 350.1.13.10 i ty of [place] 4[place]2.7.2.[place] [phone] [address] 2021-02-21 2021-02-21 Outpatient R [facility] [id number] Univers 13:15:00 13:15:00 ity of [facility] 2021-02-21 2021-02-21 Orders Doctor ANDERSON 1.2.840.114 [id number] Univers 00:00:00 00:00:00 Only Unassigned, [place] 350.1.13.10 ity [place] [facility] 4.2.7.2.686 Tk as [phone] [address] 2021-02-14 2021-02-14 Routine Zarina Kennedy [facility] 1.2.859.989 [id number] Univers 15:01:28 15:58:16 Marcus Grady 350.1.13.10 ity of [place] 4.2.7.2.[place] [phone] Me dical nal 134 [facility] 2021-02-14 2021-02-14 Outpatient R ZARINA KENNEDY [facility] [id number] Univers 15:45:00 15:45:00 ity of [facility] 2021-01-23 2021-01-23 Orders Doctor JUSTIN 1.2.840.114 [id number] Univers 00:00:00 00:00:00 Only Unassigned, [place] 350.1.13.10 ity of [place] HOSPITAL 4.2.7.2.686 Tk as [phone] [address] 2021-01-19 2021-01-19 Telephone Zarina Kennedy [facility] 1.2.840.114 [id number] Univers 00:00:00 00:00:00 Marcus Grady 350.1.13.10 i ty of [place] 4.2.7.2.[place] [phone] Me dical nal 134 [facility] 2021-01-18 2021-01-18 Combination Worker 2, Adc Lab [facility] 1.2.840.114 [id number] Univers 14:10:26 14:25:26 Visit Zarina Kennedy Marcus Grady 350.1.13.10 it[place] of [place] 4.2.7.2.[place] [phone] Me dical nal 353 [facility] 2021-01-18 2021-01-18 Outpatient R [facility] [id number] Univers 14:15:00 14:15:00 ity of [facility] 2021-01-18 2021-01-18 Case Nicole [facility] 1.2.182.865 [id number] Univers 00:00:00 00:00:00 Management Wendy Grady 350.1.13.10 [place].2.[place] [phone] [facility] 2021-01-17 2021-01-17 Outpatient R [facility] [id number] Univers 09:00:00 09:00:00 ity of [facility] 2021-01-16 2021-01-16 Outpatient R ZARINA KENNEDY [facility] [id number] Univers 08:45:00 08:45:00 ity of [facility] 2021-01-16 2021-01-16 Telephone Brent [facility] 1.2.840.114 [id number] Univers 00:00:00 00:00:00 Marcus Grady 350.1.13.10 i ty of [place] 4.2.7.2.[place] [phone] [address] 2021-01-15 2021-01-15 Combination Worker 2, Adc Lab [facility] 1.2.840.114 [id number] Univers 11:32:17 11:47:17 Visit Zarina Kennedy Miguel A 350.1.13.10 [place] of [place] 4[place]2.7.2.[place] [phone] [facility] 353 [facility] 2021-01-15 2021-01-15 Initial [facility] 1.2.209.062 [id number] Univers 10:17:01 11:18:23 Marcus Grady 350.1.13.10 ity of [place] 4.2.7.2.[place] [phone] Md dical jessica 134 [facility] 2021-01-15 2021-01-15 Outpatient R ZARINA KENNEDY [facility] [id number] Univers 10:00:00 10:00:00 ity of [facility] 2021-01-15 2021-01-15 Telephone Zarina Kennedy [facility] 1.2.840.114 [id number] Univers 00:00:00 00:00:00 Marcus Grady 350.1.13.10 i ty of [place] 4[place]2.7.2.[place] [phone] Md dical nal 134 [facility] 2021-01-15 2021-01-15 Orders Doctor JUSTIN 1.2.840.114 [id number] Univers 00:00:00 00:00:00 Only Unassigned, [place] 350.1.13.10 ity of [place] [facility]OSPITAL 4.2.7.2.686 Tk as [phone] [address] 2021-01-13 2021-01-13 Emergency [facility] 1.2.090.832 [id number] Univers 18:29:00 22:52:00 Kary Whiteside Miguel A 350.1.13.10 i ty [place].2.[place] [phone] [address] 2020-12-01 2020-12-01 Emergency E NELLA [facility] [id number] [facility] 10:52:00 12:00:00 [facility] 2020-07-11 2020-07-11 [facility] 1.2.840.114 [id number] Univers 10:39:46 11:22:54 Visit Normakrysten Grady 350.1.13.10 it[place] of [place] 4[place]2.7.2.[place] [phone] Md dical nal [address] [place] [address] 2020-07-11 2020-07-11 Outpatient [facility] [id number] Univers 11:00:00 11:00:00 NORMA durham [facility] 2020-07-11 2020-07-11 Orders Doctor ANDERSON 1.2.840.114 [id number] Univers 00:00:00 00:00:00 Only Unassigned, [place] 350.1.13.10 ity of [place] [facility]OSPITAL 4.2.7.2.686 Tk as [phone] [address] 2020-07-05 2020-07-05 Outpatient R [facility] [id number] Univers 16:00:00 16:00:00 NORMA durham [facility] 2020-06-21 2020-06-21 Emergency [facility] 1.2.657.282 [id number] Univers 15:22:00 18:25:00 Viviana Grady 350.1.13.10 it[place] of [place].2.[place] [phone] [facility] [address] 2020-06-21 2020-06-21 Orders Doctor JUSTIN 1.2.840.114 [id number] Univers 00:00:00 00:00:00 Only Unassigned, [place] 350.1.13.10 ity of [place] [facility]OSPITAL 4.2.7.2.686 Tk as [phone] [facility] [address] 2020-05-01 2020-05-01 Orders Doctor JUSTIN 1.2.840.114 [id number] Univers 00:00:00 00:00:00 Only Unassigned, [place] 350.1.13.[address] [place] [facility] 4.2.7.2.686 Tk as [phone] [address] 2020-02-28 2020-02-28 Outpatient R NICOLE [facility] [id number] Univers 11:00:00 11:00:00 WENDY lamary [facility] 2020-02-28 2020-02-28 [facility]medici [facility] 1.2.840.114 [id number] Univers 08:13:41 08:28:41 ne Visit Wendy Grady 350.1.13.10 ity [facility] [place].2.7.2.[place] [phone] [address] 2020-02-26 2020-02-26 Outpatient R RAVI, [facility] [id number] Univers 11:00:00 11:00:00 ATTENDING ity [facility] 2020-02-21 2020-02-21 [facility] 1.2.840.114 [id number] Univers 00:00:00 00:00:00 Wendy Grady 350.1.13.10 [place] [phone] Md dical [address] 2020-02-04 2020-02-04 Telephone [facility] 1.2.840.114 [id number] Univers 00:00:00 00:00:00 Wendy Grady 350.1.13.10 [place].2.[place] [phone] Md dical nal 134 [facility] 2020-02-02 2020-02-02 Refill Zarina Kennedy [facility] 1.2.867.125 [id number] Univers 00:00:00 00:00:00 Marcus Jameston [id number] [id number] [phone] [facility] [address] [place] [address] 2020-01-30 2020-02-01 Hospital [facility] 1.2.840.114 [id number] Univers 23:20:00 13:32:00 Encounter Marcus Grady [id number] [id number] [phone] [address] 2020-01-31 2020-01-31 Outpatient R NICOLE [facility] [id number] Univers 11:00:00 11:00:00 WENDY ity of [facility] 2020-01-30 2020-01-30 Orders Doctor JUSTIN 1.2.840.114 [id number] Univers 00:00:00 00:00:00 Only Unassigned, [place] [id number] [place] [facility] 4.2.7.2.686 Tk as [phone] [address] 2020-01-28 2020-01-28 Telephone [facility] 1.2.840.114 [id number] Univers 00:00:00 00:00:00 Marcus Grady [id number] [place] [phone] Md dical nal 134 [facility] 2020-01-24 2020-01-24 Combination Worker 2, Adc Lab [facility] 1.2.840.114 [id number] Univers 14:38:36 14:53:36 Visit Bennett Kennedymarlon Grady [id number] [place] [phone] Md dical nal 353 [facility] 2020-01-24 2020-01-24 Routine Kennedy, Zarina [facility] [id number] Univers 13:22:06 14:11:49 Marcus [place] [id number] ity of [place] [phone] [address] 2020-01-24 2020-01-24 Outpatient R ZARINA KENNEDY [facility] [id number] Univers 13:15:00 13:15:00 ity of [facility] 2020-01-24 2020-01-24 Orders Doctor JUSTIN 1.2.840.114 [id number] Univers 00:00:00 00:00:00 Only Unassigned, [place] [id number] [place] [facility] 4.2.7.2.686 Tk as [phone] [address] 2020-01-23 2020-01-23 [facility] 1.2.8 40.114 [id number] Univers 03:41:00 07:15:00 Encounter Zarina Kennedy Marcus [place] [id number] [id number] [phone] [facility] [address] 2020-01-21 2020-01-22 [facility] [id number] Univers 21:41:00 01:25:00 Encounter Marco A Grady [id number] [id number] [phone] [facility] [address] 2020-01-20 2020-01-20 Case Zarina Kennedy [facility] [id number] Univers 00:00:00 00:00:00 Management [place] [id number] [id number] [phone] Md dicwy nal 134 [facility] 2020-01-18 2020-01-18 Hospital Zarina Kennedy [facility] [id number] Univers 12:35:00 15:00:00 Encounter [place] [id number] [id number] [phone] [facility] [address] 2020-01-18 2020-01-18 Outpatient P ZARINA KENNEDY [facility] JONI [id number] Univers 12:35:00 12:35:00 ity [facility] 2020-01-10 2020-01-10 Routine [facility] [id number] Univers 13:56:38 14:42:48 Wendy Grady [id number] ity [place] [phone] Md dical nal 134 [facility] 2020-01-10 2020-01-10 Outpatient R NICOLE [facility] [id number] Univers 14:00:00 14:00:00 WENDY ity [facility] 2020-01-06 2020-01-06 Outpatient R ZARINA KENNEDY [facility] [id number] Univers 11:15:00 11:15:00 ity [facility] 2020-01-06 2020-01-06 Nurse Eda Santos [id number] Univers 00:00:00 00:00:00 Triage [place] [id number] [facility] [id number] [place] [phone] [facility] [address] 2019-12-08 2019-12-08 Routine [facility] [id number] Univers 13:39:40 14:27:14 Wendy Grady 350.1.13.10 ity [place] [phone] Md dical nal 134 [facility] 2019-11-01 2019-11-01 Office Martha Cohn [facility] 1.2.8 40.114 [id number] Univers 12:45:26 13:14:04 Visit Jonny Sarah PET HANDLER [id number] ity of [facility] 4.2.7.2.686 Tk as MATERNAL [phone] Med ical & CHILD 107 [facility] 2019-07-29 2019-07-29 Telephone Zarina Kennedy [facility] 1.2.840.114 [id number] Univers 00:00:00 00:00:00 [place] [id number] i [place] [phone] [address] 2019-07-28 2019-07-28 Case Zarina Kennedy [facility] 1.2.360.136 [id number] Univers 00:00:00 00:00:00 Management Marcus Jam[place] [id number] [id number] [phone] [address] 2019-07-27 2019-07-27 Nurse Nurse, [facility] Health [facility] 1.2.840.[id number] [facility] 15:56:23 16:11:23 Visit Zarina Kennedy [id number] it[place] of [place].2.[place] [phone] [address] 2019-07-23 2019-07-23 Telephone Zarina Kennedy [facility] 1.2.840.114 [id number] Univers 00:00:00 00:00:00 Marcus Grady 350.1.13.10 i [place].2.[place] [phone] [address] 2019-07-21 2019-07-21 Combination Worker 1, [facility] Lab [facility] 1.2.840.114 [id number] Univers 13:20:15 13:35:15 Visit Zarina Kennedy 350.1.13.10 [place] of [place].2.[place] [phone] [address] 2019-07-20 2019-07-20 Routine Zarina Kennedy [facility] [id number] Univers 16:27:05 17:06:12 Marcus Jameston 350.1.13.10 it[place] [phone] [address] 2019-07-15 2019-07-15 Telephone Zarina Kennedy [facility] 1.2.840.114 [id number] Univers 00:00:00 00:00:00 [place] [id number] i [place] [id number] [phone] [address] 2019-07-14 2019-07-14 Telephone Zarina Kennedy MATEE 1.2.840.114 [id number] Univers 00:00:00 00:00:00 [place] 350.1.13.10 i [place].2.[place] [phone] [address] 2019-07-07 2019-07-07 Initial Zarina Kennedy MATE[facility] [id number] Univers 14:11:07 16:17:14 [place] 350.1.13.10 it[place]2.[place] [phone] [address] 2019-07-07 2019-07-07 Orders Doctor JUSTIN 1.2.840.114 [id number] Univers 00:00:00 00:00:00 Only Unassigned, [place] [id number] [place] [facility] [id number] Tk as [phone] [address] Results Test Description Test Time Test Comments Results Result Comments Source TSH, THIRD GENERATION 2023-09-19 06:03:21 Test Item Value Reference Range Interpretation Comme nts TSH, THIRD GENERATION (test 1.000 UIU/ML 0.400-4.100 UNLESS OTHERWISE INDICATED, code = 2821) ALL TESTING PER FORMED AT CLINICAL PATHOL [facility], [facility]. [address] [place] [address] 7487 [address] ONE READING TEACHER: Gypsy [place] [id number] [place] [id number] LIPID [id number] 06:02:54 Test Item Value Reference Range Interpretation Comments CHOLESTEROL (test 185 MG/DL <200 code = 2210) TRIGLYCERIDES (test 50 MG/DL <150 code = 2232) HDL CHOLESTEROL (test 48 MG/DL >39 code = 2220) CALC LDL CHOL (test 123 MG/DL <100 H NOTE: C ALCULATED LDL code = 2237) IS BASED ON LYNETTE-HARTMANN METHOD WHICHINCLUDES ADJUSTABLE TRIGLYCERIDE:VL DL CHOLESTEROL RAT IO.THIS FACTOR VARIES B Y MEASURED TRIGLY CERIDE AND NON-HDLCHOL ESTEROL CONCENTRATIONS WITH INCREASED CALCU LATED LDL SEENIN HIGH ER TRIGLYCERIDE OR LOWER NON-HDL SPECIME NS. FOR MOREINFORMATION , SEE CLIENT ANNOUNCE MENT AT [email or web address] RISK RATIO LDL/HDL 2.56 RATIO <3.22 (test code = 223) COMPREHENSIVE METABOLIC [id number] 06:02:54 Test Item Value Reference Range Interpretation Comments GLUCOSE (test code = 221) 84 MG/DL 70-99 BUN (test code = 220) 9 MG/DL 6-20 CREATININE (test code = 221) 0.67 MG/DL 0.60-1.30 eGFR (2020 CKD-EPI) (test 127 ML/MIN/1.73 >60 code = 79544) CALC BUN/CREAT (test code = 13 RATIO 6-28 2234) SODIUM (test code = 223) 140 MEQ/L 133-146 POTASSIUM (test code = 2228) 4.1 MEQ/L 3.5-5.4 CHLORIDE (test code = 2215) 105 MEQ/L 95-107 CARBON DIOXIDE (test code = 21 MEQ/L 19-31 2205) CALCIUM (test code = 220) 10.1 MG/DL 8.5-10.5 PROTEIN, TOTAL (test code = 7.5 G/DL 6.1-8.3 2228) ALBUMIN (test code = 220) 4.9 G/DL 3.5-5.2 CALC GLOBULIN (test code = 2.6 G/DL 1.9-3.7 2239) CALC A/G RATIO (test code = 1.9 RATIO 1.0-2.6 2233) BILIRUBIN, TOTAL (test code = 0.3 MG/DL <=1.2 2206) ALKALINE PHOSPHATASE (test 88 U/L 39-117 code = 2204) AST (test code = 2218) 22 U/L 9-40 ALT (test code = 2219) 30 U/L 5-40 CBC W/AUTO DIFF WITH [id number] 04:02:12 Test Item Value Reference Range Interpretation Comments WBC (test code = 8.6 K/UL 3.5-11.0 1001) RBC (test code = 4.77 M/UL 3.80-5.40 1002) HEMOGLOBIN (test code 13.8 G/DL 11.5-15.5 = 1003) HEMATOCRIT (test code 41.0 % 34.0-45.0 = 1004) MCV (test code = 86.0 fL 80.0-99.0 1005) MCH (test code = 28.9 PG 25.0-33.0 1006) MCHC (test code = 33.7 G/DL 31.0-36.0 1007) RDW (test code = 13.1 % 11.5-15.0 1038) NEUTROPHILS (test 58.6 % code = 1008) LYMPHOCYTES (test 34.0 % code = 1010) MONOCYTES (test code 5.5 % = 1011) EOSINOPHILS (test 1.2 % code = 1012) BASOPHILS (test code 0.5 % = 1013) IMMATURE GRANULOCYTES 0.2 % (test code = 1036) NUCLEATED RBCS (test 0.0 /100 WBC'S See_Comment [Aut omated code = 1065) message] The sy stem which generated this result transmitted reference range : 0.0. The refere nce range was not u sed to interpret th is result as normal/abnormal . PLATELET COUNT (test 334 K/UL 130-400 code = 1015) ABSOLUTE NEUTROPHILS 5.03 K/UL 1.50-7.50 (test code = 1066) ABSOLUTE LYMPHOCYTES 2.91 K/UL 1.00-4.00 (test code = 1067) ABSOLUTE MONOCYTES 0.47 K/UL 0.20-1.00 (test code = 1068) ABSOLUTE EOSINOPHILS 0.10 K/UL 0.00-0.50 (test code = 1040) ABSOLUTE BASOPHILS 0.04 K/UL 0.00-0.20 (test code = 1069) ABS IMMATURE 0.02 K/UL 0.00-0.10 GRANULOCYTES (test code = 1020) ABS NUCLEATED RBCS 0.00 K/UL 0.00-0.11 (test code = 99525) HEMOGLOBIN [id number] 03:49:49 Test Item Value Reference Range Interpretation Comments HEMOGLOBIN A1c (test code = 96020) 5.3 % 4.2-5.6
[2023-10-04 21:29] LABS: Specific Gravity 1.029 (1.005-1.030)
[2023-10-04 21:32] LABS: Urine Bacteria None Seen /HPF (<20); Urine Bilirubin NEGATIVE (Negative); Urine Blood 1+ (Negative); Urine Clarity Clear (Clear); Urine Color Light-Yellow (Yellow); Urine Glucose NEGATIVE (Negative); Urine Mucus Slight /HPF (None Seen); Urine Protein 1+ (Negative); Urine Urobilinogen Normal (Normal); Urine pH 5.5 (5.0-7.0)
[2023-10-04 21:42] LABS: Absolute Lymphocytes (CBC) 2.8 K/uL (0.7-4.9); Hematocrit 42.9 % (36.0-45.0); Lymphocytes % 22.5 % (15.3-44.8); MCV 87.6 fL (80-100); MPV 7.8 fL (7.6-11.3); Platelets 312 thou/uL (152-406)
[2023-10-04] MEDS ORDERED: ONDANSETRON 4 MG/2 ML VIAL ONE (21:47)
[2023-10-04] MEDS ORDERED: NA CHLORIDE 0.9% 1,000 ML ONE (21:47)
[2023-10-04] MEDS ORDERED: KETOROLAC 30 MG/ML INJ ONE (21:47)
[2023-10-04 21:49] LABS: Bilirubin Total 0.3 mg/dL (0.2-1.0); Potassium 3.2 mEq/L (3.5-5.1); Protein, Total 8.3 g/dL (6.4-8.2)
--- NOTE | 2023-10-04 22:29 | RAD REPORT ---
EXAM DESCRIPTION: CTAbdomen Pelvis W Contrast - 10/04/2023 10:18 pm CLINICAL HISTORY: Abdominal pain. ABD PAIN COMPARISON: Abdomen Pelvis W Contrast dated 08/18/2020; Abdomen Pelvis W Contrast dated 06/19/2020 ; Abdomen Pelvis W Contrast dated 02/19/2020 TECHNIQUE: Biphasic CT imaging of the abdomen and pelvis was performed with 100 ml non-ionic IV cont rast. All CT scans are performed using dose optimization technique as appropriate and may include automated exposure control or mA/KV adjustment according to patient size. FINDINGS: The lung bases are clear. The liver, spleen, pancreas, adrenal glands and left kidney are within normal limits. There is a 9 mm stone in the right renal pelvis resulting in minimal right hydronephrosis. Cholecystectomy clips. No bowel obstruction, free air, free fluid or abscess. The appendix is normal. No evidence of signi ficant lymphadenopathy. No suspicious bony findings. IMPRESSION: 9 mm stone right renal pelvis is present. Hydronephrosis is minimal on the right.
--- NOTE | 2023-10-04 22:35 | EDPHYS ---
Physician Documentation [facility] Name: Devi Calvert Age: 22 yrs Sex: Female : 2000 Arrival Date: 10/04/2023 Time: 19:12 Bed 8 Private MD: ED Physician Min Dobson HPI: 10/04 22:46 This 22 yrs old Female presents to ER via Ambulatory with complaints of kb Abdominal Pain. 22:46 Patient is a 22-year-old female who presents for right flank pain for 2 weeks and kb diffuse abdominal pain with diarrhea today. States she has a history of kidney stones so her PCP ordered a CT to rule out kidney stone but she has not scheduled it yet. Came in because of the diffuse abdominal pain today. Denies any urinary symptoms, nausea, vomiting, fever. Historical: - Allergies: 19:23 No Known Allergies; pf1 - PMHx: 19:23 Anxiety; Asthma; Depression; IPH; Migraines; Schizophrenia; vocal chords problem; pf1 previous suicide attempt; - PSHx: 19:23 Cholecystectomy; pf1 - Immunization history:: Adult Immunizations up to date, Client reports having NOT received the Covid vaccine. Last tetanus immunization: < 10 years ago Flu vaccine is up to date. - Social history:: Smoking status: Patient reports the use of cigarette tobacco products, smokes one-half pack cigarettes per day, Patient/guardian denies using alcohol, street drugs. ROS: 22:47 Constitutional: Negative for fever, chills, and weight loss, kb 22:47 Abdomen/GI: Positive for abdominal pain, diarrhea, 22:47 All other systems are negative, Exam: 22:47 Constitutional: This is a well developed, well nourished patient who is awake, alert, kb and in no acute distress. Head/Face: Normocephalic, atraumatic. ENT: Moist Mucous membranes Cardiovascular: Regular rate Respiratory: Respirations even and unlabored. No increased work of breathing. Talking in full sentences Back: No spinal tenderness. No costovertebral tenderness. Full range of motion. Skin: Warm, dry with normal turgor. Normal color. MS/ Extremity: Pulses equal, no cyanosis. Neurovascular intact. Full, normal range of motion. Neuro: Awake and alert, GCS 15, oriented to person, place, time, and situation. Moves all extremities. Normal gait. 22:47 Abdomen/GI: Inspection: abdomen appears normal, Bowel sounds: normal, Palpation: soft, in all quadrants, mild abdominal tenderness, in the right lower quadrant and left lower quadrant, Vital Signs: 19:19 BP 122 / 81; Pulse 108; Resp 18; Temp 97.7; Pulse Ox 99% on R/A; Weight 55.79 kg; pf1 Height 5 ft. 1 in. ; Pain 8/10; 22:37 BP 108 / 70; Pulse 88; Resp 16; Pulse Ox 97% on R/A; jb4 19:19 Body Mass Index 23.24 (55.79 kg, 154.94 cm) pf1 19:19 Pain Scale: Adult pf1 MDM: 19:14 Patient medically screened. kb 22:47 Differential diagnosis: appendicitis, diverticulitis, Pyelonephritis, Ureterolithiasis, kb urinary tract infection. Data reviewed: vital signs, nurses notes. Counseling: I had a detailed discussion with the patient and/or guardian regarding the historical points, exam findings, and any diagnostic results supporting the discharge/admit diagnosis, lab results, radiology results, the need for outpatient follow up, a urologist, to return to the emergency department if symptoms worsen or persist or if there are any questions or concerns that arise at home. ED course: Patient educated on diagnostic results and need for follow-up with urology for 9 mm stone in the right renal pelvis.. 10/04 19:22 Order name: CBC with Diff; Complete Time: 21:57 kb 10/04 19:22 Order name: CMP; Complete Time: 21:57 kb 10/04 19:22 Order name: Lipase; Complete Time: 21:57 kb 10/04 19:22 Order name: Test, Urine; Complete Time: 21:37 kb 10/04 19:22 Order name: Urinalysis w/ reflexes; Complete Time: 21:33 kb 10/04 19:22 Order name: CT Abd/Pelvis - IV Contrast Only; Complete Time: 22:30 kb 10/04 19:22 Order name: IV Saline Lock; Complete Time: 21:17 kb 10/04 19:22 Order name: Labs collected and sent; Complete Time: 21:17 kb Administered Medications: 22:17 Drug: NS 0.9% IV 1000 ml IV at 1 bolus Per protocol; 1000 mL bolus Route: IV; Rate: 1 jb4 bolus; Site: right antecubital; 22:17 Drug: TORadol - Ketorolac IVP 15 mg IVP once Route: IVP; Site: right antecubital; jb4 22:17 Drug: Ondansetron IVP 4 mg IVP once; over 2 minutes Route: IVP; Site: right antecubital;jb4 23:00 Drug: Potassium Chloride PO 40 mEq PO once Route: PO; jb4 Disposition: 10/05 06:54 Co-signature as Attending Physician, Min Dobson MD I agree with the assessment sp4 and plan of care. I reviewed the patient's care provided by the Advanced Practice Provider and agree with the diagnosis and treatment plan. Disposition Summary: 10/04/23 22:34 Discharge Ordered Notes: Location: Home kb Condition: Stable kb Diagnosis - Abdominal pain, Generalized kb - Calculus of kidney kb - Diarrhea, unspecified kb Followup: kb - With: Emergency Department - When: As needed - Reason: Worsening of condition Followup: kb - With: Private Physician - When: 2 - 3 days - Reason: Recheck today's complaints, Continuance of care, Re-evaluation by your physician Discharge Instructions: - Discharge Summary Sheet kb - Kidney Stones, Ahoi-xf-Gsyr kb - Abdominal Pain, Adult, Jqxq-ci-[id number] kb - Diarrhea, Adult, Wqwa-yp-Arwe kb Forms: - Medication Reconciliation Form kb - Thank You Letter kb - Antibiotic Education kb - Prescription Opioid Use kb - Patient Portal Instructions kb - Leadership Thank You Letter kb - Work release form jb4 Prescriptions: - Diclofenac Sodium 75 mg Oral tablet, delayed release (enteric coated) - take 1 tablet ORAL route 2 times per day As needed; 30 tablet; Refills: 0, kb Product Selection Permitted Signatures: Dispatcher [employer] Batsheva Fuller, TALON WILLOUGHBY-Jesús Spann RN RN jb4 Viviana Barajas RN RN pf1 Min Dobson MD MD sp4
--- NOTE | 2023-10-04 22:35 | ER ---
Nurse's Notes [facility] Name: Devi Calvert Age: 22 yrs Sex: Female : 2000 Arrival Date: 10/04/2023 Time: 19:12 Bed 8 Private MD: Diagnosis: Abdominal pain, Generalized;Calculus of kidney;Diarrhea, unspecified Presentation: 10/04 19:19 Chief complaint: Patient states: right flank pain of 8 with abdominal pain, onset 2 pf1 weeks with diarrhea,onset today. Coronavirus screen: Vaccine status: Patient reports being unvaccinated. Client denies travel out of the [place] in the last 14 days. Client presents with at least one sign or symptom that may indicate coronavirus-19. Ebola Screen: Patient negative for fever greater than or equal to 101.5 degrees Fahrenheit, and additional compatible Ebola Virus Disease symptoms. Initial Sepsis Screen: Does the patient meet any 2 criteria? HR > 90 bpm. No. Patient's initial sepsis screen is negative. Does the patient have a suspected source of infection? No. Patient's initial sepsis screen is negative. Risk Assessment: Do you want to hurt yourself or someone else? Patient reports no desire to harm self or others. 19:19 Method Of Arrival: Ambulatory pf1 19:19 Acuity: CHANTAL 3 pf1 Historical: - Allergies: 19:23 No Known Allergies; pf1 - PMHx: 19:23 Anxiety; Asthma; Depression; IPH; Migraines; Schizophrenia; vocal chords problem; pf1 previous suicide attempt; - PSHx: 19:23 Cholecystectomy; pf1 - Immunization history:: Adult Immunizations up to date, Client reports having NOT received the Covid vaccine. Last tetanus immunization: < 10 years ago Flu vaccine is up to date. - Social history:: Smoking status: Patient reports the use of cigarette tobacco products, smokes one-half pack cigarettes per day, Patient/guardian denies using alcohol, street drugs. Screenin:25 [facility] ED Fall Risk Assessment (Adult) History of falling in the last 3 months, jb4 including since admission No falls in past 3 months (0 pts) Confusion or Disorientation No (0 pts) Score/Fall Risk Level 0 - 2 = Low Risk Oriented to surroundings, Maintained a safe environment. Abuse screen: Denies threats or abuse. Nutritional screening: No deficits noted. Tuberculosis screening: No symptoms or risk factors identified. Assessment: 21:30 General: Appears in no apparent distress. comfortable, Behavior is calm, cooperative, jb4 appropriate for age. Pain: Complains of pain in abdomen Pain does not radiate. Pain currently is 8 out of 10 on a pain scale. Neuro: Level of Consciousness is awake, alert, obeys commands, Oriented to person, place, time, situation. Cardiovascular: Patient's skin is warm and dry. Respiratory: Airway is patent Respiratory effort is even, unlabored, Respiratory pattern is regular, symmetrical. GI: Abdomen is flat, non-distended, Reports nausea. : No signs and/or symptoms were reported regarding the genitourinary system. EENT: No signs and/or symptoms were reported regarding the EENT system. Derm: Skin is intact, Skin is pink, warm \T\ dry. Musculoskeletal: Circulation, motion, and sensation intact. Range of motion: intact in all extremities. 22:36 Reassessment: Patient appears in no apparent distress at this time. Patient and/or jb4 family updated on plan of care and expected duration. Pain level reassessed. Patient is alert, oriented x 3, equal unlabored respirations, skin warm/dry/pink. 23:25 Reassessment: Patient appears in no apparent distress at this time. Patient and/or jb4 family updated on plan of care and expected duration. Pain level reassessed. Patient is alert, oriented x 3, equal unlabored respirations, skin warm/dry/pink. Vital Signs: 19:19 BP 122 / 81; Pulse 108; Resp 18; Temp 97.7; Pulse Ox 99% on R/A; Weight 55.79 kg; pf1 Height 5 ft. 1 in. ; Pain 8/10; 22:37 BP 108 / 70; Pulse 88; Resp 16; Pulse Ox 97% on R/A; jb4 19:19 Body Mass Index 23.24 (55.79 kg, 154.94 cm) pf1 19:19 Pain Scale: Adult pf1 ED Course: 19:14 Patient arrived in ED. mg5 19:14 Batsheva Mora FNP-C is [facility]. kb 19:14 Carolyn Bryant MD is Attending Physician. kb 19:14 Min Dboson MD is Attending Physician. kb 19:23 Triage completed. pf1 21:17 CBC with Diff Sent. cm10 21:17 CMP Sent. cm10 21:17 Lipase Sent. cm10 21:18 Test, Urine Sent. cm10 21:18 Urinalysis w/ reflexes Sent. cm10 21:18 Initial lab(s) drawn, by ut, sent to lab. Urine collected: clean catch specimen. cm10 Inserted saline lock: 20 gauge in right antecubital area, using aseptic technique. Blood collected. 22:20 CT Abd/Pelvis - IV Contrast Only In Process Unspecified. EDMS 22:31 Jesús Watt, RN is Primary Nurse. jb4 23:25 No provider procedures requiring assistance completed. IV discontinued, intact, jb4 bleeding controlled, No redness/swelling at site. Pressure dressing applied. 23:25 Patient has correct armband on for positive identification. Bed in low position. Call jb4 light in reach. Side rails up X 1. Client placed on continuous cardiac and pulse oximetry monitoring. NIBP monitoring applied. Administered Medications: 22:17 Drug: NS 0.9% IV 1000 ml IV at 1 bolus Per protocol; 1000 mL bolus Route: IV; Rate: 1 jb4 bolus; Site: right antecubital; 22:17 Drug: TORadol - Ketorolac IVP 15 mg IVP once Route: IVP; Site: right antecubital; jb4 22:17 Drug: Ondansetron IVP 4 mg IVP once; over 2 minutes Route: IVP; Site: right antecubital;jb4 23:00 Drug: Potassium Chloride PO 40 mEq PO once Route: PO; jb4 Medication: 23:25 VIS not applicable for this client. jb4 Outcome: 22:34 Discharge ordered by . kb 23:25 Discharged to home ambulatory, jb4 23:25 Condition: stable 23:25 Discharge instructions given to patient, Instructed on discharge instructions, follow up and referral plans. medication usage, Demonstrated understanding of instructions, follow-up care, medications, Prescriptions given X 1, 23:26 Patient left the ED. jb4 Signatures: Dispatcher [employer] EDPR Batsheva Mora, TALON WILLOUGHBY-Jesús Spann RN RN jb4 Viviana Barajas RN RN pf1 Bobbi Styles RN RN cm10 T[place]ha [place] mg5
[2023-10-04] MEDS ORDERED: POTASSIUM CL SA 10 MEQ TAB PO ONE (23:02)
[2023-10-04 23:41] VITALS: TEMP 97.7
[2023-10-04 23:47] VITALS: BP 108/70; O2SAT 97
== END 2023-10-04 23:26 | disposition home or self-care (01) ==
LOC: ER 19:12
DX: N20.0 Calculus of kidney (principal); R19.7 Diarrhea, unspecified; F17.210 Nicotine dependence, cigarettes, uncomplicated; Z87.442 Personal history of urinary calculi
CPT/HCPCS: 85025; 81001; 36415; 81025; 83690; 80053; 74177; 96375; 96374; 99284; Q9967; J2405; J7030

== ENCOUNTER 2023-10-13 12:26 | Emergency (ER) | payer BC ==
--- OUTSIDE RECORDS SUMMARY | 2023-10-13 12:42 | XMS REPORT | Continuity of Care Document ---
:2000 Author Organization [facility] t Address [address] [place] [address] Care Team Providers Name Role Phone Reyna Campbell Primary Care Physician ZARINA KENNEDY Attending Clinician Unavailable MALLORIE ALEJANDRA Attending Clinician Unavailable Mallorie Alejandra MD Attending Clinician Doctor Unassigned, [place] Attending Clinician Unavailable CLYDE, AILIN Attending Clinician Unavailable Clyde WONG, Ailin Attending Clinician DAVY CHOI Attending Clinician Unavailable DAVY CHOI Attending Clinician Unavailable Jackie Griffin MD, Ya Attending Clinician Nurse, [facility] Attending Clinician Unavailable Zarina Kennedy MD Attending Clinician BRIT LAUREN Attending Clinician Unavailable IDA MAY Attending Clinician Unavailable Norma Partida MD Attending Clinician NORMA PARTIDA Attending Clinician Unavailable HINA SANON Attending Clinician Unavailable HINA SANON Attending Clinician Unavailable WENDY RIVERA Attending Clinician Unavailable Wendy Rivera PA-C Attending Clinician GUTIERREZ BRAVO Attending Clinician Unavailable Gutierrez Bravo MD Attending Clinician [facility] Attending Clinician Unavailable Cynthia [facility]ending Clinician [phone] [place], Nephrology Attending Clinician Unavailable STAN TY Attending Clinician Unavailable STAN TY Attending Clinician Unavailable Pedro ALVARADO Attending Clinician Unavailable Pedro Fairchild Attending Clinician Jordan Gaspar CRNA Attending Clinician Jesus Martinez MD, Leonard Attending Clinician Only, [facility] Test Attending Clinician Unavailable Kary Oseguera MD Attending Clinician 2, [facility] Lab Attending Clinician Unavailable Lashay Merritt RN Attending Clinician Unavailable Ultrasound, [facility] Attending Clinician Unavailable Sailaja Aguillon MD, Sherry Attending Clinician [phone] Kian Gutierrez MD Attending Clinician Jim ABRAHAM, Mihai Attending Clinician Unknown, Attending Attending Clinician Unavailable UNKNOWN, ATTENDING Attending Clinician Unavailable Kary Ronquillo Attending Clinician DR GERMAN CARMEN Attending Clinician Unavailable Dominga HECK, Viviana Shine Attending Clinician Angus ABRAHAM, Marco A Attending Clinician Eda Santos RN Attending Clinician Unavailable Martha Cohn Attending Clinician Unavailable Jonny Sarah MD Attending Clinician 1, [facility] Attending Clinician Unavailable ZARINA KENNEDY Admitting Clinician Unavailable MARCO A GRECO Admitting Clinician Unavailable MALLORIE ALEJANDRA Admitting Clinician Unavailable Mallorie Alejandra MD Admitting Clinician WENDY RIVERA Admitting Clinician Unavailable Zarina Kennedy MD Admitting Clinician Norma Partida MD Admitting Clinician NORMA PARTIDA Admitting Clinician Unavailable Kary Oseguera MD Admitting Clinician DR GERMAN CARMEN Admitting Clinician Unavailable Marco A Greco MD Admitting Clinician Payers Payer Name Policy Type Policy Number Effective Date Expiration Date S [place] [facility] [id number] 2020 00:00:00 [place] [facility] [id number] 2019 HEALTH 00:00:00 Problems Condition Condition Condition Status Onset Resolution Last Treating Co mments Source Name Details Category Date Date Treatment Clinician Date Calculus Calculus Disease Active 2022-11 Unive rs of kidney of kidney - ity of 00:00: [address] Hydronephr Hydronephr Disease Active 2022-11 U nivers osis with osis with 12-08 ity of urinary urinary 00:00: [place] obstructio obstructio 00 Me dical n due to n due to Branch renal renal calculus calculus Flank pain Flank pain Disease Active 2022-11 U nivers -29 ity of 00:00: [place] [facility] Allergic Allergic Disease Active Unive rs rhinitis rhinitis - ity of 00:00: [address] Nausea Nausea Disease Active Univers 5-06 ity of 00:00: [address] Generalize Generalize Disease Active 2018-11 U nivers d anxiety d anxiety 0-14 ity of disorder disorder 00:00: [place] 00 Medical Branch 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 0-14 it y of disorder disorder 00:00: Medical Branch History of History of Disease Active 2018-11 U nivers self-harm self-harm 0-14 ity of 00:00: [place] [facility] Bipolar 1 Bipolar 1 Disease Active Uni vers disorder disorder 8-30 ity of 00:00: 00 Medical Branch Asthma Asthma Disease Active Univers 2-01 ity of 00:00: Medical Branch 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 00:00: [place] motion motion 00 Medical disorder disorder Branch 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 00:[place] sis sis 00 Medical Branch 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 00:00: g of this note Medical might be Branch different from [...] Active Univers ALLERGIE Class ity of S [facility] Social History Social Habit Start Date Stop Date Quantity Comments Source Gender identity Universit y of [facility] Sexual orientation Univer sity of [facility] History of Social 2023-10-10 2023-10-10 Univers ity of function 00:00:00 00:00:00 [facility] Cigarettes smoked 2023-10-09 2023-10-09 Univers ity of current (pack per 00:00:00 00:00:00 [facility] ) - Reported Branch Tobacco use and 2023-10-09 2023-10-09 Smokeless Universit y of exposure 00:00:00 00:00:00 tobacco non-user [facility] Alcohol intake 2023-10-09 2023-10-09 Ex-drinker University of 00:00:00 00:00:00 (finding) [facility] Tobacco Comment 2023-10-09 2023-10-09 1/2 PPD, and Univers ity of 00:00:00 00:00:00 vaps [facility] Exposure to 2023-02-08 2023-02-18 Not sure [facility] SARS-CoV-2 (event) 00:00:00 14:56:00 [facility] History of tobacco 2019-07-05 Cigarette Smoker University of use 00:00:00 [facility] Sex Assigned At [birth year] Universit y of 00:00:00 00:00:00 [facility] Smoking Status Start Date Stop Date Source Smokes tobacco daily 2023-10-09 00:00:00 Univers ity [facility] Ex-smoker 2022-06-03 00:00:00 2022-06-03 00:00:00 Universi ty [facility] Medications Ordered Filled Start Stop Current Ordering Indication Dosage Frequency Signature Comments Components Source Medication Medication Date Date Medication? Clinician (SIG) Name Name meperidine 2022-11 Yes 12.5mg 12.5 mg, U nivers (DEMEROL) 2-02 Slow IV ity of injection 00:24: [place] 12.5 mg 18 1 dose, Medical Starting Branch on Fri10/10/23 at 1824, Until Discontinu ed, Routine, Shivering, PACU
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
Us e approved by (Faculty): PACU USE -ANESTHESI A SERVICE-HY DROMORPHON E INJECTIONS FENTanyl PF 2022-11 Yes 25ug 25 mcg, Uni vers (SUBLIMAZE 2-02 Slow IV ity of (PF)) 00:24: Push, [place] injection 18 Q5MIN PRN, Medi jose 25 mcg 4 doses, Branch Starting on Fri10/10/23 at 1824, Until Discontinu ed, Routine, Pain (scale 4-6), PACU lactated 2022-11- No 1000mL at 42 Unive rs ringers IV - 12-01 mL/hr, ity of infusion 20:00: 20:24 1,000 mL, [place] 1,000 mL 00 :00 IV Medical Infusion, Branch ONCE, 1 dose, On Fri10/10/23 at 1400, Routine, DSU Pre-op FLUoxetine 2022-11 Yes 40mg Take 1 Unive rs 40 mg 2-01 capsule by ity of capsule 19:08: mouth [place] 55 every Medical morning. Branch ubrogepant 2022-11 Yes Ubrelvy Univ ers (UBRELVY) 2-01 100 mg ity of 100 mg Tab 19:08: tablet [place] 55 Take 1 Medical tablet by Branch oral route as needed. FLUoxetine 2022-11 Yes 40mg Take 1 Unive rs 40 mg 2-01 capsule by ity of capsule 19:08: mouth [place] 55 every Medical morning. Branch ubrogepant 2022-11 Yes Ubrelvy Univ ers (UBRELVY) 2-01 100 mg ity of 100 mg Tab 19:08: tablet [place] 55 Take 1 Medical tablet by Branch oral route as needed. ketorolac 2022-11 Yes [id number] 10mg Take 1 Un alberto 10 mg 2-01 tablet by ity of tablet 00:00: mouth [place] 00 every 6 Medical (six) Branch hours as needed for Pain (scale 7-10) (Alternate with ibuprofen if taking concurrent ly). ketorolac 2022-11 Yes [id number] 10mg Take 1 Un alberto 10 mg 2-01 tablet by ity of tablet 00:00: mouth [place] 00 every 6 Medical (six) Branch hours as needed for Pain (scale 7-10) (Alternate with ibuprofen if taking concurrent ly). tamsulosin 2022-11- Yes [id number] .4mg Take 1 Univers (FLOMAX) 2- 12-07 capsule by ity of 0.4 mg 24 00:00: 05:59 mouth in [place] hr capsule 00 :00 the Medical morning Branch for 5 days. tamsulosin 2022-11- Yes [id number] .4mg Take 1 Univers (FLOMAX) 12-11 capsule by ity of 0.4 mg 24 00:00: 05:59 mouth in [place] hr capsule 00 :00 the [facility] for 5 days. FLUoxetine 2022-11- No fluoxetine Univers 20 mg 12-09 20 mg ity of capsule 08:06: 00:00 capsule [place] 30 :00 TAKE 1 Medical CAPSULE BY Branch MOUTH EVERY DAY escitalopra 2022-11- No escitalopr Univers m oxalate 12-08 am 20 mg ity o f 20 mg 10:50: 00:00 tablet [place] tablet 05 :00 [facility] escitalopra 2022-11- No escitalopr Univers m oxalate 12-08 am 20 mg ity o f 20 mg 10:50: 00:00 tablet [place] tablet 05 :00 [facility] escitalopra 2022-11- No escitalopr Univers m oxalate 12-08 am 20 mg ity o f 20 mg 10:50: 00:00 tablet [place] tablet 05 :00 [facility] dicyclomine 2022-11- No dicyclomin Univers 20 mg 12-08 e 20 mg ity of tablet 10:49: 00:00 tablet [place] 59 :00 TAKE 1 Medical TABLET BY Branch MOUTH EVERY 6 HOURS NEEDED dicyclomine 2022-11- No dicyclomin Univers 20 mg 12-08 e 20 mg ity of tablet 10:49: 00:00 tablet [place] 59 :00 TAKE 1 Medical TABLET BY Branch MOUTH EVERY 6 HOURS NEEDED dicyclomine 2022-11- No dicyclomin Univers 20 mg 12-08 e 20 mg ity of tablet 10:49: 00:00 tablet [place] 59 :00 TAKE 1 Medical TABLET BY Branch MOUTH EVERY 6 HOURS NEEDED busPIRone 5 2022-11- No buspirone Univers mg tablet 12-08 5 mg ity of 10:49: 00:00 tablet [place] 56 :00 [facility] busPIRone 5 2022-11- No buspirone Univers mg tablet 12-08 5 mg ity of 10:49: 00:00 tablet [place] 56 :00 Medical Branch busPIRone 5 2022-11- No buspirone Univers mg tablet 12-08 5 mg ity of 10:49: 00:00 tablet 56 :00 Medical Branch ARIPiprazol 2022-11- No aripiprazo Univers e 5 mg 12-08 le 5 mg ity of tablet 10:49: 00:00 tablet 47 :00 [facility] Branch ARIPiprazol 2022-11- No aripiprazo Univers e 5 mg 12-08 le 5 mg ity of tablet 10:49: 00:00 tablet 47 :00 [facility] Branch ARIPiprazol 2022-11- No aripiprazo Univers e 5 mg 12-08 le 5 mg ity of tablet 10:49: 00:00 tablet 47 :00 Medical Branch albuterol 2022-11- No 2{puff} Inhale 2 Univers 90 - 11-29 Puffs ity of mcg/actuati 10:49: 00:00 every 6 [place] on inhaler 40 :00 (six) Medical hours as Branch needed. albuterol 2022-11- No 2{puff} Inhale 2 Univers 90 -29 11-29 Puffs ity of mcg/actuati 10:49: 00:00 every 6 [place] inhaler 40 :00 (six) Medical hours as Branch needed. albuterol 2022-11- No 2{puff} Inhale 2 Univers 90 -29 11-29 Puffs ity of mcg/actuati 10:49: 00:00 every 6 [place] inhaler 40 :00 (six) Medical hours as Branch needed. albuterol 2022-11- No 2.5mg Inhale 3 Un alberto 2.5 mg /3 - 11-29 mL every 4 ity of mL (0.083 10:49: 00:00 (four) [place] %) 34 :00 hours as Medical nebulizer needed. Branch solution albuterol 2022-11- No 2.5mg Inhale 3 Un alber[place] 2.5 mg /3 -29 11-29 mL every 4 ity of mL (0.083 10:49: 00:00 (four) [place] %) 34 :00 hours as Medical nebulizer needed. Branch solution albuterol 2022-11- No 2.5mg Inhale 3 Un alber[place] 2.5 mg /3 12-08 mL every 4 ity of mL (0.083 10:49: 00:00 (four) [place] %) 34 :00 hours as Medical nebulizer needed. Branch solution ondansetron 2022-11- No ondansetro Univers 4 mg tablet 12-08 n HCl 4 mg i ty of 08:44: 00:00 tablet [place] 57 :00 TAKE 1 Medical TABLET BY Branch MOUTH EVERY 12 HOURS NEEDED ondansetron 2022-11- No ondansetro Univers 4 mg tablet 12-08 n HCl 4 mg i ty of 08:44: 00:00 tablet [place] 57 :00 TAKE 1 Medical TABLET BY Branch MOUTH EVERY 12 HOURS NEEDED ondansetron 2022-11- No ondansetro Univers 4 mg tablet 12-08 n HCl 4 mg i ty of :44: 00:00 tablet [place] 57 :00 TAKE 1 Medical TABLET BY Branch MOUTH EVERY 12 HOURS NEEDED ondansetron 2022-11- No ondansetro Univers 4 mg tablet 12-08 n HCl 4 mg i ty of :44: 00:00 tablet [place] 57 :00 TAKE 1 Medical TABLET BY Branch MOUTH EVERY 12 HOURS NEEDED ondansetron 2022-11- No ondansetro Univers 4 mg tablet 12-08 n HCl 4 mg i ty of :44: 00:00 tablet [place] 57 :00 TAKE 1 Medical TABLET BY Branch MOUTH EVERY 12 HOURS NEEDED ondansetron 2022-11- No ondansetro Univers 4 mg tablet 12-08 n HCl 4 mg i ty of :44: 00:00 tablet [place] 57 :00 TAKE 1 Medical TABLET BY Branch MOUTH EVERY 12 HOURS NEEDED chlorhexidi 2022-11- No chlorhexid Univers ne 0.12 % 12-08 ine ity of mouthwash 08:43: 00:00 gluconate [place] 33 :00 0.12 % Medical mouthwash Branch USE TWICE DAILY chlorhexidi 2022-11- No chlorhexid Univers ne 0.12 % 12-08 ine ity of mouthwash 08:43: 00:00 gluconate [place] 33 :00 0.12 % Medical mouthwash Branch USE TWICE DAILY chlorhexidi 2022-11- No chlorhexid Univers ne 0.12 % 12-08 ine ity of mouthwash 08:43: 00:00 gluconate [place] 33 :00 0.12 % Medical mouthwash Branch USE TWICE DAILY chlorhexidi 2022-11- No chlorhexid Univers ne 0.12 % 12-08 ine ity of mouthwash 08:43: 00:00 gluconate [place] 33 :00 0.12 % Medical mouthwash Branch USE TWICE DAILY chlorhexidi 2022-11- No chlorhexid Univers ne 0.12 % 12-08 ine ity of mouthwash 08:43: 00:00 gluconate [place] 33 :00 0.12 % Medical mouthwash Branch USE TWICE DAILY chlorhexidi 2022-11- No chlorhexid Univers ne 0.12 % 12-08 ine ity of mouthwash 08:43: 00:00 gluconate [place] 33 :00 0.12 % Medical mouthwash Branch USE TWICE DAILY diphenoxyla 2022-11- No diphenoxyl Univers te-atropine 12-08 ate-atropi i ty of 2.5-0.025 08:43: 00:00 ne 2.5 [place] mg tablet 30 :00 mg-0.025 Medica l mg tablet Branch diphenoxyla 2022-11- No diphenoxyl Univers te-atropine 12-08 ate-atropi i ty of 2.5-0.025 08:43: 00:00 ne 2.5 [place] mg tablet 30 :00 mg-0.025 Medica l mg tablet Branch diphenoxyla 2022-11- No diphenoxyl Univers te-atropine 12-08 ate-atropi i ty of 2.5-0.025 08:43: 00:00 ne 2.5 [place] mg tablet 30 :00 mg-0.025 Medica l mg tablet Branch diphenoxyla 2022-11- No diphenoxyl Univers te-atropine 12-08 ate-atropi i ty of 2.5-0.025 08:43: 00:00 ne 2.5 [place] mg tablet 30 :00 mg-0.025 Medica l mg tablet Branch diphenoxyla 2022-11- No diphenoxyl Univers te-atropine 12-08 ate-atropi i ty of 2.5-0.025 08:43: 00:00 ne 2.5 [place] mg tablet 30 :00 mg-0.025 Medica l mg tablet Branch diphenoxyla 2022-11- No diphenoxyl Univers te-atropine 12-08 ate-atropi i ty of 2.5-0.025 08:43: 00:00 ne 2.5 [place] mg tablet 30 :00 mg-0.025 Medica l mg tablet [place] fluconazole 2022-11- No fluconazol Univers 200 mg 12-08 e 200 mg ity of tablet 08:43: 00:00 tablet [place] 15 :00 [facility] fluconazole 2022-11- No fluconazol Univers 200 mg 12-08 e 200 mg ity of tablet 08:43: 00:00 tablet [place] 15 : [facility] fluconazole 2022-11- No fluconazol Univers 200 mg 12-08 e 200 mg ity of tablet 08:43: 00:00 tablet [place] 15 :00 [facility] fluconazole 2022-11- No fluconazol Univers 200 mg 12-08 e 200 mg ity of tablet 08:43: 00:00 tablet [place] 15 :00 [facility] fluconazole 2022-11- No fluconazol Univers 200 mg 12-08 e 200 mg ity of tablet 08:43: 00:00 tablet [place] 15 : [facility] fluconazole 2022-11- No fluconazol Univers 200 mg 12-08 e 200 mg ity of tablet 08:43: 00:00 tablet [place] 15 :00 [facility] iron-FA-dha 2022-11- No EnLyte 1.5 Univers -epa-FAD-NA 1-29 11-29 mg ity of DH-be-mv 08:42: 00:00 iron-8.73 [place] as (ENLYTE) 37 :00 mg Medical 1.5 mg capsule,im Branch iron- 8.73 mediate - mg CpID delay release iron-FA-dha 2022-11 EnLyte 1.5 Univers -epa-FAD-NA 1-29 11-29 mg ity of DH-be-mv 08:42: 00:00 iron-8.73 [place] as (ENLYTE) 37 :00 mg Medical 1.5 mg capsule,im Branch iron- 8.73 mediate - mg CpID delay release iron-FA-dha 2022-11 EnLyte 1.5 Univers -epa-FAD-NA 1-29 11-29 mg ity of DH-be-mv 08:42: 00:00 iron-8.73 [place] as (ENLYTE) 37 :00 mg Medical 1.5 mg capsule,im Branch iron- 8.73 mediate - mg CpID delay release iron-FA-dha 2022-11 EnLyte 1.5 Univers -epa-FAD-NA 1-29 11-29 mg ity of DH-be-mv 08:42: 00:00 iron-8.73 [place] as (ENLYTE) 37 :00 mg Medical 1.5 mg capsule,im Branch iron- 8.73 mediate - mg CpID delay release iron-FA-dha 2022-11 EnLyte 1.5 Univers -epa-FAD-NA 1-29 11-29 mg ity of DH-be-mv 08:42: 00:00 iron-8.73 [place] as (ENLYTE) 37 :00 mg Medical 1.5 mg capsule,im Branch iron- 8.73 mediate - mg CpID delay release iron-FA-dha 2022-11 EnLyte 1.5 Univers -epa-FAD-NA 1-29 11-29 mg ity of DH-be-mv 08:42: 00:00 iron-8.73 [place] as (ENLYTE) 37 :00 mg Medical 1.5 mg capsule,im Branch iron- 8.73 mediate - mg CpID delay release lurasidone 2022-11 Latuda 20 U nivers 20 mg 1-29 11-29 mg tablet ity of tablet 08:42: 00:00 [place] 34 :00 Medical Branch lurasidone 2022-11- No Latuda 20 U nivers 20 mg 1-29 11-29 mg tablet ity of tablet 08:42: 00:00 [place] 34 :00 Medical Branch lurasidone 2022-11- No Latuda 20 U nivers 20 mg 1-29 11-29 mg tablet ity of tablet 08:42: 00:00 [place] 34 :00 Medical Branch lurasidone 2022-11- No Latuda 20 U nivers 20 mg 1-29 11-29 mg tablet ity of tablet 08:42: 00:00 [place] 34 :00 Medical Branch lurasidone 2022-11- No Latuda 20 U nivers 20 mg 1-29 11-29 mg tablet ity of tablet 08:42: 00:00 [place] 34 :00 Medical [place] lurasidone 2022-11- No Latuda 20 U nivers 20 mg 1-29 11-29 mg tablet ity of tablet 08:42: 00:00 [place] 34 :00 Medical Branch ondansetron 2022-11- No ondansetro Univers 4 mg 1-29 11-29 n 4 mg ity of disintegrat 08:41: 00:00 disintegra [place] ing tablet 45 :00 tin Medical tablet Branch ondansetron 2022-11- No ondansetro Univers 4 mg 1-29 11-29 n 4 mg ity of disintegrat 08:41: 00:00 disintegra [place] ing tablet 45 :00 tin Medical tablet Branch ondansetron 2022-11- No ondansetro Univers 4 mg 1-29 11-29 n 4 mg ity of disintegrat 08:41: 00:00 disintegra [place] ing tablet 45 :00 tin Medical tablet Branch ondansetron 2022-11- No ondansetro Univers 4 mg 1-29 11-29 n 4 mg ity of disintegrat 08:41: 00:00 disintegra [place] ing tablet 45 :00 tin Medical tablet Branch ondansetron 2022-11- No ondansetro Univers 4 mg 1-29 11-29 n 4 mg ity of disintegrat 08:41: 00:00 disintegra [place] ing tablet 45 :00 tin Medical tablet Branch ondansetron 2022-11- No ondansetro Univers 4 mg 12-08 n 4 mg ity of disintegrat 08:41: 00:00 disintegra [place] ing tablet 45 :00 ting Medical [facility] Branch prazosin 1 2022-11- No prazosin 1 Univers mg capsule - 11-29 mg capsule it y of 08:41: 00:00 [place] 33 :00 Medical Branch prazosin 1 2022-11- No prazosin 1 Univers mg capsule - 11-29 mg capsule it y of 08:41: 00:00 [place] 33 :00 [facility] Branch prazosin 1 2022-11- No prazosin 1 Univers mg capsule - 11-29 mg capsule it y of 08:41: 00:00 [place] 33 :00 [facility] Branch prazosin 1 2022-11- No prazosin 1 Univers mg capsule - 11-29 mg capsule it y of 08:41: 00:00 [place] 33 :00 [facility] prazosin 1 2022-11- No prazosin 1 Univers mg capsule - 11-29 mg capsule it y of 08:41: 00:00 [place] 33 :00 [facility] Branch prazosin 1 2022-11- No prazosin 1 Univers mg capsule - 11-29 mg capsule it y of 08:41: 00:00 [place] 33 :00 [facility] predniSONE 2022-11- No prednisone Univers 20 mg -08 10- 20 mg ity of tablet 08:41: 00:00 tablet [place] 18 :00 [facility] predniSONE 2022-11- No prednisone Univers 20 mg -08 10- 20 mg ity of tablet 08:41: 00:00 tablet [place] 18 :00 [facility] predniSONE 2022-11- No prednisone Univers 20 mg -08 10-29 20 mg ity of tablet 08:41: 00:00 tablet [place] 18 :00 [facility] predniSONE 2022-11- No prednisone Univers 20 mg -08 10- 20 mg ity of tablet 08:41: 00:00 tablet [place] 18 :00 [facility] predniSONE 2022-11- No prednisone Univers 20 mg -08 10-29 20 mg ity of tablet 08:41: 00:00 tablet [place] 18 :00 [facility] predniSONE 2022-11- No prednisone Univers 20 mg 12-08 20 mg ity of tablet 08:41: 00:00 tablet [place] 18 :00 [facility] Sodium 2022-11- No Denta 5000 Univ ers Fluoride, 12-08 Plus 1.1 % ity of Dental Gel, 08:41: 00:00 cream USE [place] 1.1 % Crea 05 :00 TWICE A Medica l DAY IN THE Branch MORNING AND AT NIGHT. DO NOT EAT OR DRINK FOR AT LEAST 30 MINS Sodium 2022-11- No Denta 5000 Univ ers Fluoride, 12-08 Plus 1.1 % ity of Dental Gel, 08:41: 00:00 cream USE [place] 1.1 % Crea 05 :00 TWICE A Medica l DAY IN THE Branch MORNING AND AT NIGHT. DO NOT EAT OR DRINK FOR AT LEAST 30 MINS Sodium 2022-11- No Denta 5000 Univ ers Fluoride, 12-08 Plus 1.1 % ity of Dental Gel, 08:41: 00:00 cream USE [place] 1.1 % Crea 05 :00 TWICE A Medica l DAY IN THE Branch MORNING AND AT NIGHT. DO NOT EAT OR DRINK FOR AT LEAST 30 MINS Sodium 2022-11- No Denta 5000 Univ ers Fluoride, 12-08 Plus 1.1 % ity of Dental Gel, 08:41: 00:00 cream USE [place] 1.1 % Crea 05 :00 TWICE A Medica l DAY IN THE Branch MORNING AND AT NIGHT. DO NOT EAT OR DRINK FOR AT LEAST 30 MINS Sodium 2022-11- No Denta 5000 Univ ers Fluoride, 12-08 Plus 1.1 % ity of Dental Gel, 08:41: 00:00 cream USE [place] 1.1 % Crea 05 :00 TWICE A Medica l DAY IN THE Branch MORNING AND AT NIGHT. DO NOT EAT OR DRINK FOR AT LEAST 30 MINS Sodium 2022-11- No Denta 5000 Univ ers Fluoride, 12-08 Plus 1.1 % ity of Dental Gel, 08:41: 00:00 cream USE [place] 1.1 % Crea 05 :00 TWICE A Medica l DAY IN THE Branch MORNING AND AT NIGHT. DO NOT EAT OR DRINK FOR AT LEAST 30 MINS SUMAtriptan 2022-11- No sumatripta Univers 50 mg 1-29 11-29 n 50 mg ity of tablet 08:41: 00:00 tablet [place] 02 :00 Medical Branch SUMAtriptan 2022-11- No sumatripta Univers 50 mg 1-29 11-29 n 50 mg ity of tablet 08:41: 00:00 tablet [place] 02 :00 Medical Branch SUMAtriptan 2022-11- No sumatripta Univers 50 mg 1-29 11-29 n 50 mg ity of tablet 08:41: 00:00 tablet [place] 02 :00 Medical Branch SUMAtriptan 2022-11- No sumatripta Univers 50 mg 1-29 11-29 n 50 mg ity of tablet 08:41: 00:00 tablet [place] 02 :00 Medical Branch SUMAtriptan 2022-11- No sumatripta Univers 50 mg 1-29 11-29 n 50 mg ity of tablet 08:41: 00:00 tablet [place] 02 :00 Medical Branch SUMAtriptan 2022-11- No sumatripta Univers 50 mg 1-29 11-29 n 50 mg ity of tablet 08:41: 00:00 tablet [place] 02 :00 Medical Branch tamsulosin 2022-11 Yes [id number] .4mg Take 1 Univers 0.4 mg 24 1-29 capsule by ity of hr capsule 00:00: mouth in [place] as 00 the Medical morning. Branch ondansetron 2022-11 Yes [id number] 4mg Take 1 Univers 4 mg tablet 1-29 tablet by ity of 00:00: mouth [place] 00 every 8 Medical (eight) Branch hours as needed for Nausea and Vomiting (N/V). tamsulosin 2022-11 Yes [id number] .4mg Take 1 Univers 0.4 mg 24 1-29 capsule by ity of hr capsule 00:00: mouth in [place] as 00 the Medical morning. Branch ondansetron 2022-11 Yes [id number] 4mg Take 1 Univers 4 mg tablet 1-29 tablet by ity of 00:00: mouth [place] 00 every 8 Medical (eight) Branch hours as needed for Nausea and Vomiting (N/V). tamsulosin 2022-11 Yes [id number] .4mg Take 1 Univers 0.4 mg 24 1-29 capsule by ity of hr capsule 00:00: mouth in [place] as 00 the Medical morning. Branch ondansetron 2022- Yes [id number] 4mg Take 1 Univers 4 mg tablet 1-29 tablet by ity of 00:00: mouth [place] 00 every 8 Medical (eight) Branch hours as needed for Nausea and Vomiting (N/V). tamsulosin 2022-1 Yes [id number] .4mg Take 1 Univers 0.4 mg 24 1-29 capsule by ity of hr capsule 00:00: mouth in [place] as 00 the Medical morning. Branch ondansetron 2022- Yes [id number] 4mg Take 1 Univers 4 mg tablet 1-29 tablet by ity of 00:00: mouth [place] 00 every 8 Medical (eight) Branch hours as needed for Nausea and Vomiting (N/V). tamsulosin 2022-1 Yes [id number] .4mg Take 1 [facility] 0.4 mg 24 1-29 capsule by ity of hr capsule 00:00: mouth in [place] 00 the Medical morning. Branch ondansetron 2022- Yes [id number] 4mg Take 1 [facility] 4 mg tablet 1-29 tablet by ity of 00:00: mouth [place] 00 every 8 Medical (eight) Branch hours as needed for Nausea and Vomiting (N/V). tamsulosin 2022-1 Yes [id number] .4mg Take 1 [facility] 0.4 mg 24 1-29 capsule by ity of hr capsule 00:00: mouth in [place] 00 the Medical morning. Branch ondansetron 2022- Yes [id number] 4mg Take 1 [facility] 4 mg tablet 1-29 tablet by ity of 00:00: mouth [place] 00 every 8 Medical (eight) Branch hours as needed for Nausea and Vomiting (N/V). tamsulosin 2022-1 Yes [id number] .4mg Take 1 [facility] 0.4 mg 24 1-29 capsule by ity of hr capsule 00:00: mouth in [place] 00 the Medical morning. Branch ondansetron 2022-1 Yes [id number] 4mg Take 1 [facility] 4 mg tablet 1-29 tablet by ity of 00:00: mouth [place] 00 every 8 Medical (eight) Branch hours as needed for Nausea and Vomiting (N/V). tamsulosin 3-1 Yes [id number] .4mg Take 1 [facility] 0.4 mg 24 1-29 capsule by ity of hr capsule 00:00: mouth in [place] 00 the Medical morning. Branch ondansetron 2022-11 Yes [id number] 4mg Take 1 [facility] 4 mg tablet -29 tablet by ity of 00:00: mouth [place] 00 every 8 Medical (eight) Branch hours as needed for Nausea and Vomiting (N/V). ketorolac 2022-11- No 15mg 15 mg, Unive rs (TORADOL) 12-06 Slow IV ity of injection 05:45: 06:04 Push, [place] 15 mg 00 :00 ONCE, 1 Medical dose, On Branch 10/05/23 at 2345, Routine HYDROcodone 2022-11- No 1{tbl} 1 tablet, Univers -acetaminop 12-06 Oral, ity of hen (NORCO 04:15: 04:06 ONCE, 1 [place] 5) 5-325 mg 00 :00 dose, On Medi jose tablet 1 Sun Branch tablet 10/05/23 at 2215, [place] naproxen 2022-11 Yes [id number] 500mg Take 1 [place] 500 mg EC 1-27 tablet by ity o f tablet 00:00: mouth as [place] 00 needed for Medical Pain Branch (scale 4-6). naproxen 2022-11 Yes [id number] 500mg Take 1 [place] 500 mg EC 1-27 tablet by ity o f tablet 00:00: mouth as [place] 00 needed for Medical Pain Branch (scale 4-6). naproxen 2022-11 Yes [id number] 500mg Take 1 [place] 500 mg EC 1-27 tablet by ity o f tablet 00:00: mouth as [place] 00 needed for Medical Pain Branch (scale 4-6). naproxen 2022-11 Yes [id number] 500mg Take 1 [place] 500 mg EC 1-27 tablet by ity o f tablet 00:00: mouth as [place] 00 needed for Medical Pain Branch (scale 4-6). naproxen 2022-11 Yes [id number] 500mg Take 1 [place] 500 mg EC 1-27 tablet by ity o f tablet 00:00: mouth as [place] 00 needed for Medical Pain Branch (scale 4-6). naproxen 2023-1 Yes [id number] 500mg Take 1 [place] 500 mg EC 1-27 tablet by ity o f tablet 00:00: mouth as [place] 00 needed for Medical Pain Branch (scale 4-6). naproxen 2022-11 Yes [id number] 500mg Take 1 [place] 500 mg EC 1-27 tablet by ity o f tablet 00:00: mouth as [place] 00 needed for Medical Pain Branch (scale 4-6). naproxen 2022-11 Yes [id number] 500mg Take 1 [place] 500 mg EC 1-27 tablet by ity o f tablet 00:00: mouth as [place] 00 needed for Medical Pain Branch (scale 4-6). naproxen 2022-11 Yes [id number] 500mg Take 1 [place] 500 mg EC 1-27 tablet by ity o f tablet 00:00: mouth as [place] 00 needed for Medical Pain Branch (scale 4-6). medroxyPROG 2022-11- No [id number] 150mg Univers ESTERone 0 10-06 ity of (DEPO-PROVE 14:00: 13:03 [place] RA) syringe 00 :00 Medical 150 mg Branch medroxyPROG 2022-11- No [id number] 150mg 150 mg, Univers ESTERone 006 Intramuscu ity of (DEPO-PROVE 14:00: 13:03 lar, ONCE, [place] RA) syringe 00 :00 1 dose, On Me dical 150 mg Fri Branch 08/15/23 at 0900, Routine medroxyPROG 2022- No [id number] 150mg Univers ESTERone 05-14-05 ity of (DEPO-PROVE 21:30: 20:47 [place] RA) syringe 00 :00 Medical 150 mg Branch medroxyPROG 2022- No [id number] 150mg 150 mg, Univers ESTERone 05-14 07-05 Intramuscu ity of (DEPO-PROVE 21:30: 20:47 lar, ONCE, [place] RA) syringe 00 :00 1 dose, On Me dical 150 mg 05/14/23 Branch at 1630, Routine medroxyPROG 2022- No [id number] 150mg Univers ESTERone 02-18-11 ity of (DEPO-PROVE 21:15: 20:22 [facility]) syringe 00 :00 Medical 150 mg Branch medroxyPROG 2022-0 2023- No [id number] 150mg 150 mg, Univers ESTERone 02-18 04-11 Intramuscu ity of (DEPO-PROVE 21:15: 20:22 lar, ONCE, [facility]) syringe 00 :00 1 dose, On Me dical 150 mg Tue Branch 02/18/23 at 1615, Routine albuterol 2022-0 Yes 2{puff} Inhale 2 U [...] mg ity of tablet 15:20: tablet [place] [facility] albuterol 2022-0 Yes 2{puff} Inhale [...] (six) Medical hours as Branch needed. albuterol 2023-0 Yes 2.5mg Inhale 3 Uni vers 2.5 mg /3 4-11 mL every 4 ity of mL (0.083 15:20: (four) [place] %) 25 hours as Medical nebulizer needed. Branch solution albuterol 2023-0 Yes 2{puff} Inhale 2 U nivers 90 4-11 Puffs ity of mcg/actuati 15:20: every 6 [place] on inhaler 25 (six) Medical hours as Branch needed. albuterol 2023-0 Yes 2.5mg Inhale 3 Uni vers 2.5 mg /3 4-11 mL every 4 ity of mL (0.083 15:20: (four) [place] %) 25 hours as Medical nebulizer needed. Branch solution albuterol 2023-0 Yes 2{puff} Inhale 2 U nivers 90 4-11 Puffs ity of mcg/actuati 15:20: every 6 [place] on inhaler 25 (six) Medical hours as Branch needed. albuterol 2023-0 Yes 2.5mg Inhale 3 Uni vers 2.5 mg /3 4-11 mL every 4 ity of mL (0.083 15:20: (four) [place] %) 25 hours as Medical nebulizer needed. Branch solution medroxyPROG 2022- No [id number] 150mg Univers ESTERone 11-18 ity of (DEPO-PROVE 22:00: 21:18 [place] RA) syringe 00 :00 Medical 150 mg Branch medroxyPROG 0 2022- No [id number] 150mg 150 mg, Univers ESTERone 11-18 Intramuscu ity of (DEPO-PROVE 22:00: 21:18 lar, ONCE, [place] RA) syringe 00 :00 1 dose, On Me dical 150 mg 11/18/22 Branch at 1600, Routine medroxyPROG 2022-2022- No [id number] 150mg Univers ESTERone 11-18 ity of (DEPO-PROVE 22:00: 21:18 [place] RA) syringe 00 :00 Medical 150 mg Branch medroxyPROG 2022- No [id number] 150mg 150 mg, Univers ESTERone 11-18 Intramuscu ity of (DEPO-PROVE 22:00: 21:18 lar, ONCE, [place] RA) syringe 00 :00 1 dose, On [...] tablet 15:33: 00:00 tablet [place] 47 :00 [facility] Branch ciprofloxac 2022- No ciprofloxa Univers in HCl 500 11-18 monica 500 mg it y of mg tablet 15:33: 00:00 tablet [place] 47 :00 [facility] Branch cephALEXin 2022- No cephalexin Univers 500 mg 11-18 500 mg ity of capsule 15:33: 00:00 capsule [place] 40 :00 [facility] Branch cephALEXin 2022- No cephalexin Univers 500 mg 11-18 500 mg ity of capsule 15:33: 00:00 capsule [place] 40 :00 [facility] Branch azithromyci 2022- No azithromyc Univers n [...] 2022- No Sprintec U nivers e-ethinyl 11-18 () 0.25 ity of estradioL 15:33: 00:00 mg-35 mcg [place] 0.25-35 12 :00 tablet Medical mg-mcg per TAKE 1 Branch tablet TABLET BY MOUTH EVERY DAY norgestimat 2022- No Sprintec U nivers e-ethinyl 11-18 () 0.25 ity of estradioL 15:33: 00:00 mg-35 [...] mg capsule 2022- No Prenatabs Uni vers vit,calc76/ 11-18 Rx 29 mg ity of iron/folic 15:33: 00:00 iron-1 mg [place] (PRENATABS 03 :00 tablet Medical RX ORAL) Branch 2022- No Prenatabs Uni vers vit,calc76/ 11-18 Rx 29 mg ity of iron/folic 15:33: [...] 20 mg ity of tablet 14:55: tablet [address] prazosin 1 Yes prazosin 1 U nivers mg capsule - mg capsule ity of 14:55: [address] ondansetron Yes ondansetro Univers 4 mg tablet 11-18 n HCl 4 mg it y of 14:55: tablet [place] 24 TAKE 1 Medical TABLET BY [place] MOUTH EVERY 12 HOURS NEEDED ondansetron Yes ondansetro Univers 4 mg 11-18 n 4 mg ity of disintegrat 14:55: disintegra [facility] tablet 24 ting [facility] tablet [place] lurasidone Yes Latuda 20 [place] 20 mg -09 mg tablet ity of tablet 14:55: [address] Sodium Yes Denta 5000 Unive rs Fluoride, 11-18 Plus 1.1 % ity of Dental Gel, 14:55: cream USE [place] 1.1 % Crea 24 TWICE A Medica l DAY IN THE [place] MORNING AND AT NIGHT. DO NOT EAT OR DRINK FOR AT LEAST 30 MINS fluconazole Yes fluconazol Univers 200 mg 11-18 e 200 mg ity of tablet 14:55: tablet [address] escitalopra Yes escitalopr Univers m oxalate 11-18 am 20 mg ity of 20 mg 14:55: tablet [address] diphenoxyla Yes diphenoxyl Univers te-atropine 11-18 ate-atropi it y of 2.5-0.025 14:55: ne 2.5 [place] mg tablet 24 mg-0.025 Medica l mg tablet [place] dicyclomine Yes dicyclomin Univers 20 mg 11-18 e 20 mg ity of tablet 14:55: tablet [place] [address] TAKE 1 Medical TABLET BY [place] MOUTH EVERY 6 HOURS NEEDED chlorhexidi Yes chlorhexid Univers ne 0.12 % 11-18 ine ity of mouthwash 14:55: gluconate [place] 24 0.12 % Medical mouthwash [place] USE TWICE DAILY busPIRone 5 Yes buspirone U nivers mg tablet 09 5 mg ity of 14:55: tablet [address] ARIPiprazol Yes aripiprazo Univers e 5 mg 11-18 le 5 mg ity of tablet 14:55: tablet [address] iron-FA-dha Yes EnLyte 1.5 Univers -epa-FAD-NA -09 mg ity of DH-be-mv 14:55: iron-8.73 [place] (ENLYTE[place] 24 mg Medical 1.5 mg capsule, Branch iron- 8.73 mediate - mg CpID delay release predniSONE Yes prednisone U nivers 20 mg - 20 mg ity of tablet 14:55: tablet [address] prazosin 1 Yes prazosin 1 U nivers mg capsule -09 mg capsule ity of 14:55: [address] ondansetron Yes ondansetro Univers 4 mg tablet 11-18 n HCl 4 mg it y of 14:55: tablet [place] [address] TAKE 1 Medical TABLET BY [place] MOUTH EVERY 12 HOURS NEEDED ondansetron Yes ondansetro Univers 4 mg 11-18 n 4 mg ity of disintegrat 14:55: disintegra [facility] tablet 24 ting [facility] tablet [place] lurasidone Yes Latuda 20 [place] 20 mg 09 mg tablet ity of tablet 14:55: [address] Sodium Yes Denta 5000 Unive rs Fluoride, 11-18 Plus 1.1 % ity of Dental Gel, 14:55: cream USE [place] 1.1 % Crea 24 TWICE A Medica l DAY IN THE [place] MORNING AND AT NIGHT. DO NOT EAT OR DRINK FOR AT LEAST 30 MINS fluconazole Yes fluconazol Univers 200 mg 11-18 e 200 mg ity of tablet 14:55: tablet [address] escitalopra Yes escitalopr Univers m oxalate 11-18 am 20 mg ity of 20 mg 14:55: tablet [address] diphenoxyla Yes diphenoxyl Univers te-atropine 11-18 ate-atropi it y of 2.5-0.025 14:55: ne 2.5 [place] mg tablet 24 mg-0.025 Medica l mg tablet [place] dicyclomine 2023-0 Yes dicyclomin Univers 20 mg -09 e 20 mg ity of tablet 14:55: tablet 24 TAKE 1 Medical TABLET BY Branch MOUTH EVERY 6 HOURS NEEDED chlorhexidi Yes chlorhexid Univers ne 0.12 % - ine ity of mouthwash 14:55: gluconate [place] 24 0.12 % Medical mouthwash Branch USE TWICE DAILY busPIRone 5 Yes buspirone U nivers mg tablet -09 5 mg ity of 14:55: tablet [address] ARIPiprazol Yes aripiprazo Univers e 5 mg 11-18 le 5 mg ity of tablet 14:55: tablet [address] iron-FA-dha Yes EnLyte 1.5 Univers -epa-FAD-NA - mg ity of DH-be-mv 14:55: iron-8.73 [place] (ENLYTE[place] 24 mg Medical 1.5 mg capsule,im Branch iron- 8.73 mediate - mg CpID delay release predniSONE Yes prednisone U nivers 20 mg - 20 mg ity of tablet 14:55: tablet [address] prazosin 1 Yes prazosin 1 U nivers mg capsule 1-09 mg capsule ity of 14:55: [address] ondansetron Yes ondansetro Univers 4 mg tablet 11-18 n HCl 4 mg it y of 14:55: tablet [place] 24 TAKE 1 Medical TABLET BY Branch MOUTH EVERY 12 HOURS NEEDED ondansetron Yes ondansetro Univers 4 mg 09 n 4 mg ity of disintegrat 14:55: disintegra [facility] tablet 24 ting Medical tablet [place] lurasidone Yes Latuda 20 [place] 20 mg 1-09 mg tablet ity of tablet 14:55: [address] Sodium Yes Denta 5000 Unive rs Fluoride, 11-18 Plus 1.1 % ity of Dental Gel, 14:55: cream USE [place] 1.1 % Crea 24 TWICE A Medica l DAY IN THE [place] MORNING AND AT NIGHT. DO NOT EAT OR DRINK FOR AT LEAST 30 MINS fluconazole Yes fluconazol Univers 200 mg -09 e 200 mg ity of tablet 14:55: tablet [address] escitalopra Yes escitalopr Univers m oxalate 11-18 am 20 mg ity of 20 mg 14:55: tablet [address] diphenoxyla Yes diphenoxyl Univers te-atropine 11-18 ate-atropi it y of 2.5-0.025 14:55: ne 2.5 [place] mg tablet 24 mg-0.025 Medica l mg tablet [place] dicyclomine Yes dicyclomin Univers 20 mg 11-18 e 20 mg ity of tablet 14:55: tablet [place] 24 TAKE 1 Medical TABLET BY Branch MOUTH EVERY 6 HOURS NEEDED chlorhexidi Yes chlorhexid Univers ne 0.12 % 11-18 ine ity of mouthwash 14:55: gluconate [place] 24 0.12 % Medical mouthwash [place] USE TWICE DAILY busPIRone 5 Yes buspirone U nivers mg tablet 11-18 5 mg ity of 14:55: tablet [address] ARIPiprazol Yes aripiprazo Univers e 5 mg 11-18 le 5 mg ity of tablet 14:55: tablet [address] iron-FA-dha Yes EnLyte 1.5 Univers -epa-FAD-NA - mg ity of DH-be-mv 14:55: iron-8.73 [place] (ENLYTE[place] 24 mg Medical 1.5 mg capsule,im Branch iron- 8.73 mediate - mg CpID delay release predniSONE Yes prednisone U nivers 20 mg 11-18 20 mg ity of tablet 14:55: tablet [address] prazosin 1 Yes prazosin 1 U nivers mg capsule -09 mg capsule ity of 14:55: [address] ondansetron Yes ondansetro Univers 4 mg tablet 11-18 n HCl 4 mg it y of 14:55: tablet [place] 24 TAKE 1 Medical TABLET BY Branch MOUTH EVERY 12 HOURS NEEDED ondansetron Yes ondansetro Univers 4 mg - n 4 mg ity of disintegrat 14:55: disintegra [place] ing tablet 24 ting Medical tablet [place] lurasidone Yes Latuda 20 Un [place] 20 mg 1-09 mg tablet ity of tablet 14:55: [address] Sodium Yes Denta 5000 Unive rs Fluoride, 11-18 Plus 1.1 % ity of Dental Gel, 14:55: cream USE [place] 1.1 % Crea 24 TWICE A Medica l DAY IN THE [place] MORNING AND AT NIGHT. DO NOT EAT OR DRINK FOR AT LEAST 30 MINS fluconazole Yes fluconazol Univers 200 mg 11-18 e 200 mg ity of tablet 14:55: tablet [address] escitalopra Yes escitalopr Univers m oxalate 11-18 am 20 mg ity of 20 mg 14:55: tablet [address] diphenoxyla Yes diphenoxyl Univers te-atropine 11-18 ate-atropi it y of 2.5-0.025 14:55: ne 2.5 [place] mg tablet 24 mg-0.025 Medica l mg tablet [place] dicyclomine Yes dicyclomin Univers 20 mg 11-18 e 20 mg ity of tablet 14:55: tablet [place] [address] TAKE 1 Medical TABLET BY [place] MOUTH EVERY 6 HOURS NEEDED chlorhexidi Yes chlorhexid Univers ne 0.12 % 11-18 ine ity of mouthwash 14:55: gluconate [facility] 24 0.12 % Medical mouthwash [place] USE TWICE DAILY busPIRone 5 Yes buspirone U nivers mg tablet 11-18 5 mg ity of 14:55: tablet [address] ARIPiprazol Yes aripiprazo Univers e 5 mg 11-18 le 5 mg ity of tablet 14:55: tablet [address] iron-FA-dha Yes EnLyte 1.5 Univers -epa-FAD-NA - mg ity of DH-be-mv 14:55: iron-8.73 [place] (EN[place] 24 mg Medical 1.5 mg capsule,im Branch iron- 8.73 mediate - mg CpID delay release predniSONE Yes prednisone U nivers 20 mg - 20 mg ity of tablet 14:55: tablet [address] prazosin 1 Yes prazosin 1 U nivers mg capsule 11-18 mg capsule ity of 14:55: [address] ondansetron Yes ondansetro Univers 4 mg tablet 11-18 n HCl 4 mg it y of 14:55: tablet [place] 24 TAKE 1 Medical TABLET BY Branch MOUTH EVERY 12 HOURS NEEDED ondansetron Yes ondansetro Univers 4 mg 11-18 n 4 mg ity of disintegrat 14:55: disintegra [place] ing tablet 24 ting [facility] tablet [place] lurasidone Yes Latuda 20 Un [place] 20 mg 11-18 mg tablet ity of tablet 14:55: [address] Sodium Yes Denta 5000 Unive rs Fluoride, 11-18 Plus 1.1 % ity of Dental Gel, 14:55: cream USE [place] 1.1 % Crea 24 TWICE A Medica l DAY IN THE [place] MORNING AND AT NIGHT. DO NOT EAT OR DRINK FOR AT LEAST 30 MINS fluconazole Yes fluconazol Univers 200 mg 11-18 e 200 mg ity of tablet 14:55: tablet [address] escitalopra Yes escitalopr Univers m oxalate 11-18 am 20 mg ity of 20 mg 14:55: tablet [address] diphenoxyla Yes diphenoxyl Univers te-atropine 11-18 ate-atropi it y of 2.5-0.025 14:55: ne 2.5 [place] mg tablet 24 mg-0.025 Medica l mg tablet [place] dicyclomine Yes dicyclomin Univers 20 mg 11-18 e 20 mg ity of tablet 14:55: tablet [place] 24 TAKE 1 Medical TABLET BY [place] MOUTH EVERY 6 HOURS NEEDED chlorhexidi Yes chlorhexid Univers ne 0.12 % 11-18 ine ity of mouthwash 14:55: gluconate [place] 24 0.12 % Medical mouthwash [place] USE TWICE DAILY busPIRone 5 Yes buspirone U nivers mg tablet 11-18 5 mg ity of 14:55: tablet [address] ARIPiprazol Yes aripiprazo Univers e 5 mg 11-18 le 5 mg ity of tablet 14:55: tablet [address] iron-FA-dha Yes EnLyte 1.5 Univers -epa-FAD-NA 1-09 mg ity of DH-be-mv 14:55: iron-8.73 [place] (EN[place] 24 mg Medical 1.5 mg capsule,im Branch iron- 8.73 mediate - mg CpID delay release predniSONE Yes prednisone U nivers 20 mg 1-09 20 mg ity of tablet 14:55: tablet [address] prazosin 1 Yes prazosin 1 U nivers mg capsule 1-09 mg capsule ity of 14:55: [address] ondansetron Yes ondansetro Univers 4 mg tablet 11-18 n HCl 4 mg it y of 14:55: tablet [place] [address] TAKE 1 Medical TABLET BY Branch MOUTH EVERY 12 HOURS NEEDED ondansetron Yes ondansetro Univers 4 mg -09 n 4 mg ity of disintegrat 14:55: disintegra [place] ing tablet 24 ting Medical tablet [place] lurasidone Yes Latuda 20 Un [place] 20 mg 1-09 mg tablet ity of tablet 14:55: [address] Sodium Yes Denta 5000 Unive rs Fluoride, 11-18 Plus 1.1 % ity of Dental Gel, 14:55: cream USE [place] 1.1 % Crea 24 TWICE A Medica l DAY IN THE [place] MORNING AND AT NIGHT. DO NOT EAT OR DRINK FOR AT LEAST 30 MINS fluconazole Yes fluconazol Univers 200 mg 09 e 200 mg ity of tablet 14:55: tablet [address] escitalopra Yes escitalopr Univers m oxalate 11-18 am 20 mg ity of 20 mg 14:55: tablet [address] diphenoxyla Yes diphenoxyl Univers te-atropine 11-18 ate-atropi it y of 2.5-0.025 14:55: ne 2.5 [place] mg tablet 24 mg-0.025 Medica l mg tablet [place] dicyclomine Yes dicyclomin Univers 20 mg -09 e 20 mg ity of tablet 14:55: tablet [place] 24 TAKE 1 Medical TABLET BY Branch MOUTH EVERY 6 HOURS NEEDED chlorhexidi Yes chlorhexid Univers ne 0.12 % 11-18 ine ity of mouthwash 14:55: gluconate [place] 24 0.12 % Medical mouthwash [place] USE TWICE DAILY busPIRone 5 Yes buspirone U nivers mg tablet -09 5 mg ity of 14:55: tablet [address] ARIPiprazol Yes aripiprazo Univers e 5 mg - le 5 mg ity of tablet 14:55: tablet [address] iron-FA-dha Yes EnLyte 1.5 Univers -epa-FAD-NA -09 mg ity of DH-be-mv 14:55: iron-8.73 [place] (EN[place]TE[place] 24 mg Medical 1.5 mg capsule,im Branch iron- 8.73 mediate - mg CpID delay release predniSONE Yes prednisone U nivers 20 mg -09 20 mg ity of tablet 14:55: tablet [address] prazosin 1 Yes prazosin 1 U nivers mg capsule 1-09 mg capsule ity of 14:55: [address] ondansetron Yes ondansetro Univers 4 mg tablet 1-09 n HCl 4 mg it y of 14:55: tablet [place] [address] TAKE 1 Medical TABLET BY [place] MOUTH EVERY 12 HOURS NEEDED ondansetron Yes ondansetro Univers 4 mg -09 n 4 mg ity of disintegrat 14:55: disintegra [facility] tablet 24 ting Medical tablet [place] lurasidone Yes Latuda 20 [place] 20 mg 1-09 mg tablet ity of tablet 14:55: [address] Sodium Yes Denta 5000 Unive rs Fluoride, 11-18 Plus 1.1 % ity of Dental Gel, 14:55: cream USE [place] 1.1 % Crea 24 TWICE A Medica l DAY IN THE [place] MORNING AND AT NIGHT. DO NOT EAT OR DRINK FOR AT LEAST 30 MINS fluconazole Yes fluconazol Univers 200 mg 1-09 e 200 mg ity of tablet 14:55: tablet [address] escitalopra Yes escitalopr Univers m oxalate - am 20 mg ity of 20 mg 14:55: tablet [place] tablet 24 Medical [place] diphenoxyla Yes diphenoxyl Univers te-atropine 11-18 ate-atropi it y of 2.5-0.025 14:55: ne 2.5 [place] mg tablet 24 mg-0.025 Medica l mg tablet Branch dicyclomine Yes dicyclomin Univers 20 mg -09 e 20 mg ity of tablet 14:55: tablet [place] 24 TAKE 1 Medical TABLET BY Branch MOUTH EVERY 6 HOURS NEEDED chlorhexidi Yes chlorhexid Univers ne 0.12 % 11-18 ine ity of mouthwash 14:55: gluconate [place] 24 0.12 % Medical mouthwash Branch USE TWICE DAILY busPIRone 5 Yes buspirone U nivers mg tablet 11-18 5 mg ity of 14:55: tablet [address] ARIPiprazol Yes aripiprazo Univers e 5 mg 11-18 le 5 mg ity of tablet 14:55: tablet [address] iron-FA-dha Yes EnLyte 1.5 Univers -epa-FAD-NA -09 mg ity of DH-be-mv 14:55: iron-8.73 [place] (EN[place] 24 mg Medical 1.5 mg capsule, Branch iron- 8.73 mediate - mg CpID delay release predniSONE Yes prednisone U nivers 20 mg - 20 mg ity of tablet 14:55: tablet [address] prazosin 1 Yes prazosin 1 U nivers mg capsule 1-09 mg capsule ity of 14:55: [address] ondansetron Yes ondansetro Univers 4 mg tablet 09 n HCl 4 mg it y of 14:55: tablet [place] 24 TAKE 1 Medical TABLET BY Branch MOUTH EVERY 12 HOURS NEEDED ondansetron Yes ondansetro Univers 4 mg -09 n 4 mg ity of disintegrat 14:55: disintegra [place] ing tablet 24 ting Medical tablet [place] lurasidone Yes Latuda 20 Un [place] 20 mg 1-09 mg tablet ity of tablet 14:55: [address] Sodium Yes Denta 5000 Unive rs Fluoride, 11-18 Plus 1.1 % ity of Dental Gel, 14:55: cream USE [place] 1.1 % Crea 24 TWICE A Medica l DAY IN THE [place] MORNING AND AT NIGHT. DO NOT EAT OR DRINK FOR AT LEAST 30 MINS fluconazole Yes fluconazol Univers 200 mg 11-18 e 200 mg ity of tablet 14:55: tablet [address] escitalopra Yes escitalopr Univers m oxalate 11-18 am 20 mg ity of 20 mg 14:55: tablet [address] diphenoxyla Yes diphenoxyl Univers te-atropine 11-18 ate-atropi it y of 2.5-0.025 14:55: ne 2.5 [place] mg tablet 24 mg-0.025 Medica l mg tablet [place] dicyclomine Yes dicyclomin Univers 20 mg 11-18 e 20 mg ity of tablet 14:55: tablet [place] [address] TAKE 1 Medical TABLET BY [place] MOUTH EVERY 6 HOURS NEEDED chlorhexidi Yes chlorhexid Univers ne 0.12 % 11-18 ine ity of mouthwash 14:55: gluconate [place] 24 0.12 % Medical mouthwash Branch USE TWICE DAILY busPIRone 5 Yes buspirone U nivers mg tablet 11-18 5 mg ity of 14:55: tablet [address] ARIPiprazol Yes aripiprazo Univers e 5 mg 11-18 le 5 mg ity of tablet 14:55: tablet [address] iron-FA-dha Yes EnLyte 1.5 Univers -epa-FAD-NA -09 mg ity of DH-be-mv 14:55: iron-8.73 [place] (EN[place]TE[place] 24 mg Medical 1.5 mg capsule,im Branch iron- 8.73 mediate - mg CpID delay release predniSONE Yes prednisone U nivers 20 mg 11-18 20 mg ity of tablet 14:55: tablet [address] prazosin 1 Yes prazosin 1 U nivers mg capsule 1-09 mg capsule ity of 14:55: [address] ondansetron Yes ondansetro Univers 4 mg tablet 11-18 n HCl 4 mg it y of 14:55: tablet [place] 24 TAKE 1 Medical TABLET BY Branch MOUTH EVERY 12 HOURS NEEDED ondansetron Yes ondansetro Univers 4 mg 11-18 n 4 mg ity of disintegrat 14:55: disintegra [place] ing tablet 24 ting [facility] tablet [place] lurasidone Yes Latuda 20 Un [place]to 20 mg -09 mg tablet ity of tablet 14:55: [address] Sodium Yes Denta 5000 Unive rs Fluoride, 11-18 Plus 1.1 % ity of Dental Gel, 14:55: cream USE [place] 1.1 % Crea 24 TWICE A Medica l DAY IN THE [place] MORNING AND AT NIGHT. DO NOT EAT OR DRINK FOR AT LEAST 30 MINS fluconazole Yes fluconazol Univers 200 mg 11-18 e 200 mg ity of tablet 14:55: tablet [address] escitalopra Yes escitalopr Univers m oxalate 11-18 am 20 mg ity of 20 mg 14:55: tablet [address] diphenoxyla Yes diphenoxyl Univers te-atropine 11-18 ate-atropi it y of 2.5-0.025 14:55: ne 2.5 [place] mg tablet 24 mg-0.025 Medica l mg tablet [place] dicyclomine Yes dicyclomin Univers 20 mg 11-18 e 20 mg ity of tablet 14:55: tablet [place] 24 TAKE 1 Medical TABLET BY [place] MOUTH EVERY 6 HOURS NEEDED chlorhexidi Yes chlorhexid Univers ne 0.12 % 11-18 ine ity of mouthwash 14:55: gluconate [place] 24 0.12 % Medical mouthwash [place] USE TWICE DAILY busPIRone 5 Yes buspirone U nivers mg tablet 11-18 5 mg ity of 14:55: tablet [address] ARIPiprazol Yes aripiprazo Univers e 5 mg 11-18 le 5 mg ity of tablet 14:55: tablet [address] iron-FA-dha Yes EnLyte 1.5 Univers -epa-FAD-NA 1-09 mg ity of DH-be-mv 14:55: iron-8.73 [place] (EN[place]TE[place] 24 mg Medical 1.5 mg capsule,im Branch iron- 8.73 mediate - mg CpID delay release predniSONE Yes prednisone U nivers 20 mg -09 20 mg ity of tablet 14:55: tablet [address] prazosin 1 Yes prazosin 1 U nivers mg capsule -09 mg capsule ity of 14:55: [address] ondansetron Yes ondansetro Univers 4 mg tablet 11-18 n HCl 4 mg it y of 14:55: tablet [place] 24 TAKE 1 Medical TABLET BY Branch MOUTH EVERY 12 HOURS NEEDED ondansetron Yes ondansetro Univers 4 mg 11-18 n 4 mg ity of disintegrat 14:55: disintegra [place] ing tablet 24 ting [facility] tablet [place] lurasidone Yes Latuda 20 Un alberto 20 mg - mg tablet ity of tablet 14:55: [address] Sodium Yes Denta 5000 Unive rs Fluoride, 11-18 Plus 1.1 % ity of Dental Gel, 14:55: cream USE [place] 1.1 % [place] 24 TWICE A Medica l DAY IN THE [place] MORNING AND AT NIGHT. DO NOT EAT OR DRINK FOR AT LEAST 30 MINS fluconazole Yes fluconazol Univers 200 mg 11-18 e 200 mg ity of tablet 14:55: tablet [address] escitalopra Yes escitalopr Univers m oxalate 11-18 am 20 mg ity of 20 mg 14:55: tablet [place] tablet 24 [facility] diphenoxyla Yes diphenoxyl Univers te-atropine 11-18 ate-atropi it y of 2.5-0.025 14:55: ne 2.5 [place] mg tablet 24 mg-0.025 Medica l mg tablet [place] dicyclomine Yes dicyclomin Univers 20 mg 11-18 e 20 mg ity of tablet 14:55: tablet [place] 24 TAKE 1 Medical TABLET BY [place] MOUTH EVERY 6 HOURS NEEDED chlorhexidi Yes chlorhexid Univers ne 0.12 % 11-18 ine ity of mouthwash 14:55: gluconate [place] 24 0.12 % Medical mouthwash [place] USE TWICE DAILY busPIRone 5 Yes buspirone U nivers mg tablet -09 5 mg ity of 14:55: tablet [address] ARIPiprazol Yes aripiprazo Univers e 5 mg 11-18 le 5 mg ity of tablet 14:55: tablet [address] iron-FA-dha Yes EnLyte 1.5 Univers -epa-FAD-NA - mg ity of DH-be-mv 14:55: [place]8.73 [place] (EN[place] 24 mg Medical 1.5 mg capsule, Branch iron- 8.73 mediate - mg CpID delay release predniSONE Yes prednisone U nivers 20 mg 11-18 20 mg ity of tablet 14:55: tablet [address] prazosin 1 Yes prazosin 1 U nivers mg capsule -09 mg capsule ity of 14:55: [address] ondansetron Yes ondansetro Univers 4 mg tablet 11-18 n HCl 4 mg it y of 14:55: tablet [place] [address] TAKE 1 Medical TABLET BY [place] MOUTH EVERY 12 HOURS NEEDED ondansetron Yes ondansetro Univers 4 mg -09 n 4 mg ity of disintegrat 14:55: disintegra [place] ing tablet 24 ting [facility] tablet [place] lurasidone Yes Latuda 20 Un al[place]to 20 mg -09 mg tablet ity of tablet 14:55: [address] Sodium Yes Denta 5000 Unive rs Fluoride, 11-18 Plus 1.1 % ity of Dental Gel, 14:55: cream USE [place] 1.1 % Crea 24 TWICE A Medica l DAY IN THE [place] MORNING AND AT NIGHT. DO NOT EAT OR DRINK FOR AT LEAST 30 MINS fluconazole Yes fluconazol Univers 200 mg -09 e 200 mg ity of tablet 14:55: tablet [address] escitalopra Yes escitalopr Univers m oxalate 11-18 am 20 mg ity of 20 mg 14:55: tablet [address] diphenoxyla Yes diphenoxyl Univers te-atropine 11-18 ate-atropi it y of 2.5-0.025 14:55: ne 2.5 [place] mg tablet 24 mg-0.025 Medica l mg tablet Branch dicyclomine Yes dicyclomin Univers 20 mg -09 e 20 mg ity of tablet 14:55: tablet [place] 24 TAKE 1 Medical TABLET BY Branch MOUTH EVERY 6 HOURS NEEDED chlorhexidi Yes chlorhexid Univers ne 0.12 % 11-18 ine ity of mouthwash 14:55: gluconate [place] 24 0.12 % Medical mouthwash Branch USE TWICE DAILY busPIRone 5 Yes buspirone U nivers mg tablet 11-18 5 mg ity of 14:55: tablet [address] ARIPiprazol Yes aripiprazo Univers e 5 mg 11-18 le 5 mg ity of tablet 14:55: tablet [address] iron-FA-dha Yes EnLyte 1.5 Univers -epa-FAD-NA - mg ity of DH-be-mv 14:55: [place]8.73 [place] (EN[place] 24 mg Medical 1.5 mg capsule,im Branch iron- 8.73 mediate - mg CpID delay release predniSONE Yes prednisone U nivers 20 mg 11-18 20 mg ity of tablet 14:55: tablet [address] prazosin 1 Yes prazosin 1 U nivers mg capsule -09 mg capsule ity of 14:55: [address] ondansetron Yes ondansetro Univers 4 mg tablet 11-18 n HCl 4 mg it y of 14:55: tablet [place] 24 TAKE 1 Medical TABLET BY Branch MOUTH EVERY 12 HOURS NEEDED ondansetron Yes ondansetro Univers 4 mg -09 n 4 mg ity of disintegrat 14:55: disintegra [place] ing tablet 24 ting Medical tablet [place] lurasidone Yes Latuda 20 Un al[place] 20 mg 1-09 mg tablet ity of tablet 14:55: [address] Sodium Yes Denta 5000 Unive rs Fluoride, 11-18 Plus 1.1 % ity of Dental Gel, 14:55: cream USE [place] 1.1 % Crea 24 TWICE A Medica l DAY IN THE [place] MORNING AND AT NIGHT. DO NOT EAT OR DRINK FOR AT LEAST 30 MINS fluconazole Yes fluconazol Univers 200 mg - e 200 mg ity of tablet 14:55: tablet [place] 24 [facility] escitalopra Yes escitalopr Univers m oxalate 11-18 am 20 mg ity of 20 mg 14:55: tablet [place] tablet 24 [facility] diphenoxyla Yes diphenoxyl Univers te-atropine 11-18 ate-atropi it y of 2.5-0.025 14:55: ne 2.5 [place] mg tablet 24 mg-0.025 Medica l mg tablet [place] dicyclomine Yes dicyclomin Univers 20 mg 11-18 e 20 mg ity of tablet 14:55: tablet [place] 24 TAKE 1 Medical TABLET BY Branch MOUTH EVERY 6 HOURS NEEDED chlorhexidi Yes chlorhexid Univers ne 0.12 % 11-18 ine ity of mouthwash 14:55: gluconate [place] 24 0.12 % Medical mouthwash Branch USE TWICE DAILY busPIRone 5 Yes buspirone U nivers mg tablet 11-18 5 mg ity of 14:55: tablet [address] ARIPiprazol Yes aripiprazo Univers e 5 mg 11-18 le 5 mg ity of tablet 14:55: tablet [address] iron-FA-dha Yes EnLyte 1.5 Univers -epa-FAD-NA 11-18 mg ity of DH-be-mv 14:55: iron-8.73 [place] (ENLYTE[place] 24 mg Medical 1.5 mg capsule,im Branch iron- 8.73 mediate - mg CpID delay release escitalopra Yes escitalopr Univers m oxalate 11-18 am 20 mg ity of 20 mg 14:55: tablet [place] tablet 24 [facility] dicyclomine Yes dicyclomin Univers 20 mg 09 e 20 mg ity of tablet 14:55: tablet 24 TAKE 1 Medical TABLET BY Branch MOUTH EVERY 6 HOURS NEEDED busPIRone 5 Yes buspirone U nivers mg tablet 1-09 5 mg ity of 14:55: tablet [address] ARIPiprazol Yes aripiprazo Univers e 5 mg -09 le 5 mg ity of tablet 14:55: tablet [address] escitalopra Yes escitalopr Univers m oxalate -09 am 20 mg ity of 20 mg 14:55: tablet [place] tablet 24 [facility] dicyclomine Yes dicyclomin Univers 20 mg -09 e 20 mg ity of tablet 14:55: tablet [place] 24 TAKE 1 Medical TABLET BY Branch MOUTH EVERY 6 HOURS NEEDED busPIRone 5 Yes buspirone U nivers mg tablet 11-18 5 mg ity of 14:55: tablet [address] ARIPiprazol Yes aripiprazo Univers e 5 mg -09 le 5 mg ity of tablet 14:55: tablet [address] escitalopra Yes escitalopr Univers m oxalate 11-18 am 20 mg ity of 20 mg 14:55: tablet [place] tablet [address] [place] [address] dicyclomine Yes dicyclomin Univers 20 mg -09 e 20 mg ity of tablet 14:55: tablet [place] 24 TAKE 1 Medical TABLET BY Branch MOUTH EVERY 6 HOURS NEEDED busPIRone 5 Yes buspirone U nivers mg tablet 11-18 5 mg ity of 14:55: tablet [address] ARIPiprazol Yes aripiprazo Univers e 5 mg -09 le 5 mg ity of tablet 14:55: tablet [address] miSOPROStoL Yes [id number] Take one Univers 200 mcg 1-09 tablet ity of tablet 00:00: night before Medical procedure, Branch then take one tablet morning of procedure miSOPROStoL Yes [id number] Take one Univers 200 mcg 1-09 tablet ity of tablet 00:00: night before Medical procedure, Branch then take one tablet morning of procedure miSOPROStoL Yes [id number] Take one Univers 200 mcg 1-09 tablet ity of tablet 00:00: night before Medical procedure, Branch then take one tablet morning of procedure miSOPROStoL 2023-0 Yes [id number] Take one Univers 200 mcg 1-09 tablet ity of tablet 00:00: night [place] 00 before Medical procedure, Branch then take one tablet morning of procedure miSOPROStoL 2022-0 Yes [id number] Take one Univers 200 mcg 1-09 tablet ity of tablet 00:00: night [place] 00 before Medical procedure, Branch then take one tablet morning of procedure miSOPROStoL 2022-0 Yes [id number] Take one Univers 200 mcg 1-09 tablet ity of tablet 00:00: night [place] 00 before Medical procedure, Branch then take one tablet morning of procedure miSOPROStoL 2022-0 Yes [id number] Take one Univers 200 mcg 1-09 tablet ity of tablet 00:00: night [place] 00 before Medical procedure, Branch then take one tablet morning of procedure miSOPROStoL 2022-0 Yes [id number] Take one Univers 200 mcg 1-09 tablet ity of tablet 00:00: night [place] 00 before Medical procedure, Branch then take one tablet morning of procedure miSOPROStoL 2022-0 Yes [id number] Take one Univers 200 mcg 1-09 tablet ity of tablet 00:00: night [place] 00 before Medical procedure, Branch then take one tablet morning of procedure miSOPROStoL 2022-0 Yes [id number] Take one Univers 200 mcg 1-09 tablet ity of tablet 00:00: night [place] 00 before Medical procedure, Branch then take one tablet morning of procedure miSOPROStoL 2022-0 Yes [id number] Take one Univers 200 mcg 1-09 tablet ity of tablet 00:00: night [place] 00 before Medical procedure, Branch then take one tablet morning of procedure miSOPROStoL 2022-0 Yes [id number] Take one Univers 200 mcg 1-09 tablet ity of tablet 00:00: night [place] 00 before Medical procedure, Branch then take one tablet morning of procedure miSOPROStoL 2022-0 3- No [id number] Take one Univers 200 mcg 1-09 11-29 tablet ity of tablet 00:00: 00:00 night [place] 00 :00 before Medical procedure, Branch then take one tablet morning of procedure miSOPROStoL 2022-0 3- No [id number] Take one Univers 200 mcg 1-09 11-29 tablet ity of tablet 00:00: 00:00 night [place] 00 :00 before Medical procedure, Branch then take one tablet morning of procedure miSOPROStoL 2022- No [id number] Take one Univers 200 mcg 11-18 tablet ity of tablet 00:00: 00:00 night [place] 00 :00 before Medical procedure, Branch then take one tablet morning of procedure miSOPROStoL 2022- No [id number] Take one Univers 200 mcg 11-18 tablet ity of tablet 00:00: 00:00 night [place] 00 :00 before Medical procedure, Branch then take one tablet morning of procedure miSOPROStoL 2022- No [id number] Take one Univers 200 mcg 11-18 tablet ity of tablet 00:00: 00:00 night [place] 00 :00 before Medical procedure, Branch then take one tablet morning of procedure miSOPROStoL 2022- No [id number] Take one Univers 200 mcg 11-18 tablet ity of tablet 00:00: 00:00 night [place] 00 :00 before Medical procedure, Branch then take one tablet morning of procedure medroxyPROG 2021-11 No [id number] 150mg Univers ESTERone 0-17 10-17 ity of (DEPO-PROVE 21:15: 20:14 [facility]) syringe 00 :00 Medical 150 mg Branch medroxyPROG 2021-11 No [id number] 150mg 150 mg, Univers ESTERone 0-17 10-17 Intramuscu ity of (DEPO-PROVE 21:15: 20:14 [place], ONCE, [facility]) syringe 00 :00 1 dose, On Me dical 150 mg Mon [place] 08/26/22 at 1615, Routine SUMAtriptan Yes sumatripta Univers 50 mg 8-24 n 50 mg ity of tablet 15:26: tablet [address] sulfamethox Yes sulfametho Univers azole-trime 8-24 xazole 800 it y of thoprim 15:26: mg-trimeth [place] 800-160 mg 51 oprim 160 Medi jose per tablet mg tablet Bran ch predniSONE Yes prednisone U nivers 20 mg 8-24 20 mg ity of tablet 15:26: tablet [address] prazosin 1 Yes prazosin 1 U nivers mg capsule 8-24 mg capsule ity of 15:26: [address] ondansetron Yes ondansetro Univers 4 mg tablet 8-24 n HCl 4 mg it y of 15:26: tablet [place] [address] TAKE 1 Medical TABLET BY Branch MOUTH EVERY 12 HOURS NEEDED ondansetron Yes ondansetro Univers 4 mg 8-24 n 4 mg ity of disintegrat 15:26: disintegra [place] ing tablet 51 ting Medical tablet [place] Nitrofurant Yes nitrofuran Univers oin&Nit. 8-24 toin ity of Macrocryst 15:26: monohydrat [place] 100 mg 51 e/macrocry Medical capsule stals 100 Branch mg capsule lurasidone Yes Latuda 20 Un [place] 20 mg 8-24 mg tablet ity of tablet 15:26: [address] Sodium Yes Denta 5000 Unive rs Fluoride, 8-24 Plus 1.1 % ity of Dental Gel, 15:26: cream USE [place] 1.1 % Crea 51 TWICE A Medica l DAY IN THE [place] MORNING AND AT NIGHT. DO NOT EAT OR DRINK FOR AT LEAST 30 MINS fluconazole Yes fluconazol Univers 200 mg 8-24 e 200 mg ity of tablet 15:26: tablet [address] escitalopra Yes escitalopr Univers m oxalate 8-24 am 20 mg ity of 20 mg 15:26: tablet [address] doxylamine- Yes Diclegis Un [place] pyridoxine, [...] tablet 51 mg-0.025 Medica l mg tablet [place] dicyclomine Yes dicyclomin Univers 20 mg 8-24 e 20 mg ity of tablet 15:26: tablet [place] [address] TAKE 1 Medical TABLET BY Branch MOUTH EVERY 6 HOURS NEEDED clindamycin Yes clindamyci Univers 300 mg 8-24 n HCl 300 ity of capsule 15:26: mg capsule [place] 51 Take 1 Medical capsule 3 Branch times a day by oral route for 10 days. ciprofloxac Yes ciprofloxa Univers in HCl 500 8-24 monica 500 mg ity of mg tablet 15:26: tablet [address] chlorhexidi Yes chlorhexid Univers ne 0.12 % 8-24 ine ity of mouthwash 15:26: gluconate [place] 51 0.12 % Medical mouthwash Branch USE TWICE DAILY cephALEXin Yes cephalexin U nivers 500 mg 8-24 500 mg ity of capsule 15:26: capsule [address] busPIRone 5 Yes buspirone U nivers mg tablet 8-24 5 mg ity of 15:26: tablet [address] azithromyci Yes azithromyc Univers n 250 mg 8-24 in 250 mg ity of tablet 15:26: tablet [place] [address] TAKE BY Medical MOUTH 2 Branch TABLETS TODAY THEN 1 TABLE DAILY FOR NEXT 4 DAYS ARIPiprazol Yes aripiprazo Univers e 5 mg 8-24 le 5 mg ity of tablet 15:26: tablet [address] PNV 67-iron Yes Vitafol Uni vers [...] [place] (PRENATA 51 tablet Medical RX ORAL) Branch iron-FA-dha [...] 50 mg ity of tablet 15:26: tablet [address] sulfamethox Yes sulfametho Univers azole-trime 8-24 xazole 800 it y of thoprim 15:26: mg-trimeth [place] 800-160 mg 51 oprim 160 Medi jose per tablet mg tablet Bran ch predniSONE Yes prednisone U nivers 20 mg 8-24 20 mg ity of tablet 15:26: tablet [address] prazosin 1 Yes prazosin 1 U nivers mg capsule 8-24 mg capsule ity of 15:26: [address] ondansetron Yes ondansetro Univers 4 mg tablet 8-24 n HCl 4 mg it y of 15:26: tablet [place] [address] TAKE 1 Medical TABLET BY [place] MOUTH EVERY 12 HOURS NEEDED ondansetron Yes ondansetro Univers 4 mg 8-24 n 4 mg ity of disintegrat 15:26: disintegra [place] ing tablet 51 ting Medical tablet [place] Nitrofurant Yes nitrofuran Univers oin&Nit. 8-24 toin ity of Macrocryst 15:26: monohydrat [place] 100 mg 51 e/macrocry Medical capsule stals 100 Branch mg capsule lurasidone Yes Latuda 20 Un [place] 20 mg 8-24 mg tablet ity of tablet 15:26: [address] Sodium Yes Denta 5000 Unive rs Fluoride, 8-24 Plus 1.1 % ity of Dental Gel, 15:26: cream USE [place] 1.1 % Crea 51 TWICE A Medica l DAY IN THE [place] MORNING AND AT NIGHT. DO NOT EAT OR DRINK FOR AT LEAST 30 MINS fluconazole Yes fluconazol Univers 200 mg 8-24 e 200 mg ity of tablet 15:26: tablet [place] [address] Medical Branch escitalopra Yes escitalopr Univers m oxalate 8-24 am 20 mg ity of 20 mg 15:26: tablet [place] tablet 51 Medical Branch doxylamine- Yes Diclegis Un [place] pyridoxine, [...] 20 mg ity of tablet 15:26: tablet [place] [address] TAKE 1 Medical TABLET BY Branch MOUTH EVERY 6 HOURS NEEDED clindamycin Yes clindamyci Univers 300 mg 8-24 n HCl 300 ity of capsule 15:26: mg capsule [place] 51 Take 1 Medical capsule 3 Branch times a day by oral route for 10 days. ciprofloxac Yes ciprofloxa Univers in HCl 500 8-24 mon[place] 500 mg ity of mg tablet 15:26: tablet [address] chlorhexidi Yes chlorhexid Univers ne 0.12 % 8-24 ine ity of mouthwash 15:26: gluconate [place] 51 0.12 % Medical mouthwash Branch USE TWICE DAILY cephALEXin Yes cephalexin U nivers 500 mg 8-24 500 mg ity of capsule 15:26: capsule [address] busPIRone 5 Yes buspirone U nivers mg tablet 8-24 5 mg ity of 15:26: tablet [address] azithromyci Yes azithromyc Univers n 250 mg 8-24 in 250 mg ity of tablet 15:26: tablet [place] 51 TAKE BY Medical MOUTH 2 Branch TABLETS TODAY THEN 1 TABLE DAILY FOR NEXT 4 DAYS ARIPiprazol Yes aripiprazo Univers e 5 mg 8-24 le 5 mg ity of tablet 15:26: tablet [address] PNV 67-iron Yes Vitafol Uni vers [...] BY MOUTH EVERY DAY Yes [facility] ers vit,calc76/ 8-24 Rx 29 mg ity of iron/folic 15:26: iron-1 mg [place] (PRENATABS 51 tablet Medical RX ORAL) [place] iron-FA-dha Yes EnLyte 1.5 Univers -epa-FAD-NA 8-24 [...] 50 mg ity of tablet 15:26: tablet [address] sulfamethox Yes sulfametho Univers azole-trime 8-24 xazole 800 it y of thoprim 15:26: mg-trimeth [place] 800-160 mg 51 oprim 160 Medi jose per tablet mg tablet Bran ch predniSONE Yes prednisone U nivers 20 mg 8-24 20 mg ity of tablet 15:26: tablet [address] prazosin 1 Yes prazosin 1 U nivers mg capsule 8-24 mg capsule ity of 15:26: [address] ondansetron Yes ondansetro Univers 4 mg tablet 8-24 n HCl 4 mg it y of 15:26: tablet [place] [address] TAKE 1 Medical TABLET BY Branch MOUTH EVERY 12 HOURS NEEDED ondansetron Yes ondansetro Univers 4 mg 8-24 n 4 mg ity of disintegrat 15:26: disintegra [place] ing tablet 51 ting Medical tablet [place] Nitrofurant Yes nitrofuran Univers oin&Nit. 8-24 toin ity of Macrocryst 15:26: monohydrat [place] 100 mg 51 e/macrocry Medical capsule stals 100 Branch mg capsule lurasidone Yes Latuda 20 Un [place] 20 mg 8-24 mg tablet ity of tablet 15:26: [address] Sodium Yes Denta 5000 Unive rs Fluoride, 8-24 Plus 1.1 % ity of Dental Gel, 15:26: cream USE [place] 1.1 % Crea 51 TWICE A Medica l DAY IN THE [place] MORNING AND AT NIGHT. DO NOT EAT OR DRINK FOR AT LEAST 30 MINS fluconazole Yes fluconazol Univers 200 mg 8-24 e 200 mg ity of tablet 15:26: tablet [address] escitalopra Yes escitalopr Univers m oxalate 8-24 am 20 mg ity of 20 mg 15:26: tablet [place] tablet 51 [facility] doxylamine- Yes Diclegis Un [place]to pyridoxine, 8-24 [...] tablet 51 mg-0.025 Medica l mg tablet [place] dicyclomine Yes dicyclomin Univers 20 mg 8-24 e 20 mg ity of tablet 15:26: tablet [place] [address] TAKE 1 Medical TABLET BY Branch MOUTH EVERY 6 HOURS NEEDED clindamycin Yes clindamyci Univers 300 mg 8-24 n HCl 300 ity of capsule 15:26: mg capsule [place] 51 Take 1 Medical capsule 3 Branch times a day by oral route for 10 days. ciprofloxac Yes ciprofloxa Univers in HCl 500 8-24 monica 500 mg ity of mg tablet 15:26: tablet [address] chlorhexidi Yes chlorhexid Univers ne 0.12 % 8-24 ine ity of mouthwash 15:26: gluconate [place] 51 0.12 % Medical mouthwash Branch USE TWICE DAILY cephALEXin Yes cephalexin U nivers 500 mg 8-24 500 mg ity of capsule 15:26: capsule [address] busPIRone 5 Yes buspirone U nivers mg tablet 8-24 5 mg ity of 15:26: tablet [address] azithromyci Yes azithromyc Univers n 250 mg 8-24 in 250 mg ity of tablet 15:26: tablet [place] [address] TAKE BY Medical MOUTH 2 Branch TABLETS TODAY THEN 1 TABLE DAILY FOR NEXT 4 DAYS ARIPiprazol Yes aripiprazo Univers e 5 mg 8-24 le 5 mg ity of tablet 15:26: tablet [address] PNV 67-iron Yes Vitafol Uni vers [...] 50 mg ity of tablet 15:26: tablet [address] sulfamethox Yes sulfametho Univers azole-trime 8-24 xazole 800 it y of thoprim 15:26: mg-trimeth [place] 800-160 mg 51 oprim 160 Medi jose per tablet mg tablet Bran ch predniSONE Yes prednisone U nivers 20 mg 8-24 20 mg ity of tablet 15:26: tablet [address] prazosin 1 Yes prazosin 1 U nivers mg capsule 8-24 mg capsule ity of 15:26: [address] ondansetron Yes ondansetro Univers 4 mg tablet 8-24 n HCl 4 mg it y of 15:26: tablet [place] [address] TAKE 1 Medical TABLET BY [place] MOUTH EVERY 12 HOURS NEEDED ondansetron Yes ondansetro Univers 4 mg 8-24 n 4 mg ity of disintegrat 15:26: disintegra [place] ing tablet 51 ting Medical tablet [place] Nitrofurant Yes nitrofuran Univers oin&Nit. 8-24 toin ity of Macrocryst 15:26: monohydrat [place] 100 mg 51 e/macrocry Medical capsule stals 100 Branch mg capsule lurasidone Yes Latuda 20 Un [place] 20 mg 8-24 mg tablet ity of tablet 15:26: [address] Sodium Yes Denta 5000 Unive rs Fluoride, 8-24 Plus 1.1 % ity of Dental Gel, 15:26: cream USE [place] 1.1 % Crea 51 TWICE A Medica l DAY IN THE [place] MORNING AND AT NIGHT. DO NOT EAT OR DRINK FOR AT LEAST 30 MINS fluconazole Yes fluconazol Univers 200 mg 8-24 e 200 mg ity of tablet 15:26: tablet [address] escitalopra Yes escitalopr Univers m oxalate 8-24 am 20 mg ity of 20 mg 15:26: tablet [place] [facility] 51 Medical Branch doxylamine- Yes Diclefranklyn Servin alberto pyridoxine, 8-24 10 mg-10 ity of [...] 20 mg ity of tablet 15:26: tablet [place] [address] TAKE 1 Medical TABLET BY Branch MOUTH EVERY 6 HOURS NEEDED clindamycin Yes clindamyci Univers 300 mg 8-24 n HCl 300 ity of capsule 15:26: mg capsule [place] 51 Take 1 Medical capsule 3 Branch times a day by oral route for 10 days. ciprofloxac Yes ciprofloxa Univers in HCl 500 8-24 monica 500 mg ity of mg tablet 15:26: tablet [address] chlorhexidi Yes chlorhexid Univers ne 0.12 % 8-24 ine ity of mouthwash 15:26: gluconate [place] 51 0.12 % Medical mouthwash Branch USE TWICE DAILY cephALEXin Yes cephalexin U nivers 500 mg 8-24 500 mg ity of capsule 15:26: capsule [address] busPIRone 5 Yes buspirone U nivers mg tablet 8-24 5 mg ity of 15:26: tablet [address] azithromyci Yes azithromyc Univers n 250 mg 8-24 in 250 mg ity of tablet 15:26: tablet [place] [address] TAKE BY Medical MOUTH 2 Branch TABLETS TODAY THEN 1 TABLE DAILY FOR NEXT 4 DAYS ARIPiprazol 2022-0 Yes aripiprazo Univers e 5 mg 8-24 le 5 mg ity of tablet 15:26: tablet [address] PNV 67-iron Yes Vitafol Uni vers [...] BY MOUTH EVERY DAY Yes [facility] ers vit,calc76/ 8-24 Rx 29 mg ity of iron/folic 15:26: iron-1 mg [place] (PRENATABS 51 tablet Medical RX ORAL) [place] iron-FA-dha Yes EnLyte 1.5 Univers -epa-FAD-NA 8-24 [...] 50 mg ity of tablet 15:26: tablet [address] sulfamethox Yes sulfametho Univers azole-trime 8-24 xazole 800 it y of thoprim 15:26: mg-trimeth [place] 800-160 mg 51 oprim 160 Medi jose per tablet mg tablet Bran ch predniSONE Yes prednisone U nivers 20 mg 8-24 20 mg ity of tablet 15:26: tablet [address] prazosin 1 Yes prazosin 1 U nivers mg capsule 8-24 mg capsule ity of 15:26: [address] ondansetron Yes ondansetro Univers 4 mg tablet 8-24 n HCl 4 mg it y of 15:26: tablet [place] 51 TAKE 1 Medical TABLET BY Branch MOUTH EVERY 12 HOURS NEEDED ondansetron Yes ondansetro Univers 4 mg 8-24 n 4 mg ity of disintegrat 15:26: disintegra [place] ing tablet 51 ting Medical tablet [place] Nitrofurant Yes nitrofuran Univers oin&Nit. 8-24 toin ity of Macrocryst 15:26: monohydrat [place] 100 mg 51 e/macrocry Medical capsule stals 100 Branch mg capsule lurasidone Yes Latuda 20 Un [place] 20 mg 8-24 mg tablet ity of tablet 15:26: [address] Sodium Yes Denta 5000 Unive rs Fluoride, 8-24 Plus 1.1 % ity of Dental Gel, 15:26: cream USE [place] 1.1 % Crea 51 TWICE A Medica l DAY IN THE [place] MORNING AND AT NIGHT. DO NOT EAT OR DRINK FOR AT LEAST 30 MINS fluconazole Yes fluconazol Univers 200 mg 8-24 e 200 mg ity of tablet 15:26: tablet [address] escitalopra Yes escitalopr Univers m oxalate 8-24 am 20 mg ity of 20 mg 15:26: tablet [place] tablet 51 [facility] doxylamine- Yes Diclegis Un [place]to pyridoxine, 8-24 [...] tablet 51 mg-0.025 Medica l mg tablet [place] dicyclomine Yes dicyclomin Univers 20 mg 8-24 e 20 mg ity of tablet 15:26: tablet [place] 51 TAKE 1 Medical TABLET BY Branch MOUTH EVERY 6 HOURS NEEDED clindamycin Yes clindamyci Univers 300 mg 8-24 n HCl 300 ity of capsule 15:26: mg capsule [place] 51 Take 1 Medical capsule 3 Branch times a day by oral route for 10 days. ciprofloxac Yes ciprofloxa Univers in HCl 500 8-24 monica 500 mg ity of mg tablet 15:26: tablet [address] chlorhexidi Yes chlorhexid Univers ne 0.12 % 8-24 ine ity of mouthwash 15:26: gluconate [place] 51 0.12 % Medical mouthwash Branch USE TWICE DAILY cephALEXin Yes cephalexin U nivers 500 mg 8-24 500 mg ity of capsule 15:26: capsule [address] busPIRone 5 Yes buspirone U nivers mg tablet 8-24 5 mg ity of 15:26: tablet [address] azithromyci Yes azithromyc Univers n 250 mg 8-24 in 250 mg ity of tablet 15:26: tablet [place] [address] TAKE BY Medical MOUTH 2 Branch TABLETS TODAY THEN 1 TABLE DAILY FOR NEXT 4 DAYS ARIPiprazol Yes aripiprazo Univers e 5 mg 8-24 le 5 mg ity of tablet 15:26: tablet [address] PNV 67-iron Yes Vitafol Uni vers [...] 50 mg ity of tablet 15:26: tablet [address] sulfamethox Yes sulfametho Univers azole-trime 8-24 xazole 800 it y of thoprim 15:26: mg-trimeth [place] 800-160 mg 51 oprim 160 Medi jose per tablet mg tablet Bran ch predniSONE Yes prednisone U nivers 20 mg 8-24 20 mg ity of tablet 15:26: tablet [address] prazosin 1 Yes prazosin 1 U nivers mg capsule 8-24 mg capsule ity of 15:26: [address] ondansetron Yes ondansetro Univers 4 mg tablet 8-24 n HCl 4 mg it y of 15:26: tablet [place] [address] TAKE 1 Medical TABLET BY [place] MOUTH EVERY 12 HOURS NEEDED ondansetron Yes ondansetro Univers 4 mg 8-24 n 4 mg ity of disintegrat 15:26: disintegra [facility] tablet 51 ting Medical tablet [place] Nitrofurant Yes nitrofuran Univers oin&Nit. 8-24 toin ity of Macrocryst 15:26: monohydrat [place] 100 mg 51 e/macrocry Medical capsule stals 100 Branch mg capsule lurasidone Yes Latuda 20 Un [place] 20 mg 8-24 mg tablet ity of tablet 15:26: [address] Sodium Yes Denta 5000 Unive rs Fluoride, 8-24 Plus 1.1 % ity of Dental Gel, 15:26: cream USE [place] 1.1 % Crea 51 TWICE A Medica l DAY IN THE [place] MORNING AND AT NIGHT. DO NOT EAT OR DRINK FOR AT LEAST 30 MINS fluconazole Yes fluconazol Univers 200 mg 8-24 e 200 mg ity of tablet 15:26: tablet [address] escitalopra Yes escitalopr Univers m oxalate 8-24 am 20 mg ity of 20 mg 15:26: tablet [place] [facility] 51 [facility] doxylamine- Yes Diclegimiguel Gareth alberto pyridoxine, 8-24 10 mg-10 ity of [...] 20 mg ity of tablet 15:26: tablet [place] [address] TAKE 1 Medical TABLET BY Branch MOUTH EVERY 6 HOURS NEEDED clindamycin Yes clindamyci Univers 300 mg 8-24 n HCl 300 ity of capsule 15:26: mg capsule [place] 51 Take 1 Medical capsule 3 Branch times a day by oral route for 10 days. ciprofloxac Yes ciprofloxa Univers in HCl 500 8-24 [place] 500 mg ity of mg tablet 15:26: tablet [address] chlorhexidi Yes chlorhexid Univers ne 0.12 % 8-24 ine ity of mouthwash 15:26: gluconate [place] 51 0.12 % Medical mouthwash Branch USE TWICE DAILY cephALEXin Yes cephalexin U nivers 500 mg 8-24 500 mg ity of capsule 15:26: capsule [address] busPIRone 5 Yes buspirone U nivers mg tablet 8-24 5 mg ity of 15:26: tablet [address] azithromyci Yes azithromyc Univers n 250 mg 8-24 in 250 mg ity of tablet 15:26: tablet [place] 51 TAKE BY Medical MOUTH 2 Branch TABLETS TODAY THEN 1 TABLE DAILY FOR NEXT 4 DAYS ARIPiprazol Yes aripiprazo Univers e 5 mg 8-24 le 5 mg ity of tablet 15:26: tablet [address] PNV 67-iron Yes Vitafol Uni vers [...] [place] (PRENATABS 51 tablet Medical RX ORAL) [place] iron-FA-dha Yes EnLyte 1.5 Univers -epa-FAD-NA 8-24 [...] 50 mg ity of tablet 15:26: tablet [address] sulfamethox Yes sulfametho Univers azole-trime 8-24 xazole 800 it y of thoprim 15:26: mg-trimeth [place] 800-160 mg 51 oprim 160 Medi jose per tablet mg tablet Bran ch predniSONE Yes prednisone U nivers 20 mg 8-24 20 mg ity of tablet 15:26: tablet [address] prazosin 1 Yes prazosin 1 U nivers mg capsule 8-24 mg capsule ity of 15:26: [address] ondansetron Yes ondansetro Univers 4 mg tablet 8-24 n HCl 4 mg it y of 15:26: tablet [place] 51 TAKE 1 Medical TABLET BY Branch MOUTH EVERY 12 HOURS NEEDED ondansetron Yes ondansetro Univers 4 mg 8-24 n 4 mg ity of disintegrat 15:26: disintegra [place] ing tablet 51 ting Medical tablet [place] Nitrofurant Yes nitrofuran Univers oin&Nit. 8-24 toin ity of Macrocryst 15:26: monohydrat [place] 100 mg 51 e/macrocry Medical capsule stals 100 Branch mg capsule lurasidone Yes Latuda 20 Un alber[place] 20 mg 8-24 mg tablet ity of tablet 15:26: [address] Sodium Yes Denta 5000 Unive rs Fluoride, 8-24 Plus 1.1 % ity of Dental Gel, 15:26: cream USE [place] 1.1 % Crea 51 TWICE A Medica l DAY IN THE [place] MORNING AND AT NIGHT. DO NOT EAT OR DRINK FOR AT LEAST 30 MINS fluconazole Yes fluconazol Univers 200 mg 8-24 e 200 mg ity of tablet 15:26: tablet [address] escitalopra Yes escitalopr Univers m oxalate 8-24 am 20 mg ity of 20 mg 15:26: tablet [place] tablet 51 [facility] doxylamine- Yes Diclegis Un alberto pyridoxine, 8-24 [...] tablet 51 mg-0.025 Medica l mg tablet [place] dicyclomine Yes dicyclomin Univers 20 mg 8-24 e 20 mg ity of tablet 15:26: tablet [place] 51 TAKE 1 Medical TABLET BY Branch MOUTH EVERY 6 HOURS NEEDED clindamycin Yes clindamyci Univers 300 mg 8-24 n HCl 300 ity of capsule 15:26: mg capsule [place] 51 Take 1 Medical capsule 3 Branch times a day by oral route for 10 days. ciprofloxac Yes ciprofloxa Univers in HCl 500 8-24 mon[place] 500 mg ity of mg tablet 15:26: tablet [address] chlorhexidi Yes chlorhexid Univers ne 0.12 % 8-24 ine ity of mouthwash 15:26: gluconate [place] 51 0.12 % Medical mouthwash Branch USE TWICE DAILY cephALEXin Yes cephalexin U nivers 500 mg 8-24 500 mg ity of capsule 15:26: capsule [address] busPIRone 5 Yes buspirone U nivers mg tablet 8-24 5 mg ity of 15:26: tablet [address] azithromyci Yes azithromyc Univers n 250 mg 8-24 in 250 mg ity of tablet 15:26: tablet [place] [address] TAKE BY Medical MOUTH 2 Branch TABLETS TODAY THEN 1 TABLE DAILY FOR NEXT 4 DAYS ARIPiprazol Yes aripiprazo Univers e 5 mg 8-24 le 5 mg ity of tablet 15:26: tablet [address] PNV 67-iron Yes Vitafol Uni vers [...] 50 mg ity of tablet 15:26: tablet [address] SUMAtriptan Yes sumatripta Univers 50 mg 8-24 n 50 mg ity of tablet 15:26: tablet [address] SUMAtriptan Yes sumatripta Univers 50 mg 8-24 n 50 mg ity of tablet 15:26: tablet [address] SUMAtriptan Yes sumatripta Univers 50 mg 8-24 n 50 mg ity of tablet 15:26: tablet [address] SUMAtriptan Yes sumatripta Univers 50 mg 8-24 n 50 mg ity of tablet 15:26: tablet [address] SUMAtriptan Yes sumatripta Univers 50 mg 8-24 n 50 mg ity of tablet 15:26: tablet [address] QUEtiapine Yes Univers 100 mg 4-26 ity of tablet 00:00: [address] FLUoxetine Yes Univers 40 mg 4-26 ity of capsule 00:00: [address] QUEtiapine Yes Univers 100 mg 4-26 ity of tablet 00:00: [address] FLUoxetine Yes Univers 40 mg 4-26 ity of capsule 00:00: [address] QUEtiapine Yes Univers 100 mg 4-26 ity of tablet 00:00: [address] FLUoxetine Yes Univers 40 mg 4-26 ity of capsule 00:00: [address] QUEtiapine Yes Univers 100 mg 4-26 ity of tablet 00:00: [address] FLUoxetine Yes Univers 40 mg 4-26 ity of capsule 00:00: [place] 00 Medical Branch QUEtiapine 2022-0 Yes Univers 100 mg 4-26 ity of tablet 00:00: [place] [facility] FLUoxetine 2022-0 Yes Univers 40 mg 4-26 ity of capsule 00:00: [place] [facility] QUEtiapine 2-0 Yes Univers 100 mg 4-26 ity of tablet 00:00: [place] [address] Medical Branch FLUoxetine 2-0 Yes Univers 40 mg 4-26 ity of capsule 00:00: [place] [facility] QUEtiapine 2-0 Yes Univers 100 mg 4-26 ity of tablet 00:00: [place] [facility] FLUoxetine 2022-0 Yes Univers 40 mg 4-26 ity of capsule 00:00: [place] [address] Medical [place] QUEtiapine 2022-0 Yes Univers 100 mg 4-26 ity of tablet 00:00: [place] [facility] Branch FLUoxetine 2-0 Yes Univers 40 mg 4-26 ity of capsule 00:00: [address] QUEtiapine 2022-0 Yes Univers 100 mg 4-26 ity of tablet 00:00: [address] Branch FLUoxetine 2022-0 Yes Univers 40 mg 4-26 ity of capsule 00:00: [address] Branch QUEtiapine 2022-0 Yes Univers 100 mg 4-26 ity of tablet 00:00: [address] Branch FLUoxetine 2022-0 Yes Univers 40 mg 4-26 ity of capsule 00:00: [address] QUEtiapine 2022-0 Yes Univers 100 mg 4-26 ity of tablet 00:00: [address] Branch FLUoxetine 2022-0 Yes Univers 40 mg 4-26 ity of capsule 00:00: [address] Branch QUEtiapine 2022-0 Yes Univers 100 mg 4-26 ity of tablet 00:00: [place] [address] Medical Branch FLUoxetine 2022-0 Yes Univers 40 mg 4-26 ity of capsule 00:00: [address] QUEtiapine 2022-0 Yes Univers 100 mg 4-26 ity of tablet 00:00: [address] Branch FLUoxetine 2022-0 Yes Univers 40 mg 4-26 ity of capsule 00:00: [address] Branch QUEtiapine 2022-0 Yes Univers 100 mg 4-26 ity of tablet 00:00: [address] FLUoxetine 2022-0 Yes Univers 40 mg 4-26 ity of capsule 00:00: [place] 00 Medical Branch QUEtiapine 2022-0 Yes Univers 100 mg 4-26 ity of tablet 00:00: [place] 00 Medical Branch FLUoxetine 2022-0 Yes Univers 40 mg 4-26 ity of capsule 00:00: [place] 00 Medical Branch QUEtiapine 2022-0 Yes Univers 100 mg 4-26 ity of tablet 00:00: [place] [address] Medical Branch FLUoxetine 2022-0 Yes Univers 40 mg 4-26 ity of capsule 00:00: [place] [address] Medical Branch QUEtiapine 2022-0 Yes Univers 100 mg 4-26 ity of tablet 00:00: [place] [address] Medical Branch FLUoxetine 2022-0 Yes Univers 40 mg 4-26 ity of capsule 00:00: [place] [address] Medical Branch QUEtiapine 2022-0 Yes Univers 100 mg 4-26 ity of tablet 00:00: [place] [address] Medical Branch FLUoxetine 2022-0 Yes Univers 40 mg 4-26 ity of capsule 00:00: [place] [address] Medical Branch QUEtiapine 2022-0 Yes Univers 100 mg 4-26 ity of tablet 00:00: [place] [address] Medical Branch FLUoxetine 2022-0 Yes Univers 40 mg 4-26 ity of capsule 00:00: [place] [address] Medical Branch FLUoxetine 2022-0 Yes Univers 40 mg 4-26 ity of capsule 00:00: [place] [address] Medical Branch FLUoxetine 2022-0 Yes Univers 40 mg 4-26 ity of capsule 00:00: [place] [address] Medical Branch FLUoxetine 2022-0 Yes Univers 40 mg 4-26 ity of capsule 00:00: [place] [address] Medical Branch QUEtiapine 2022-0 2023- No Univer s 100 mg 4-26 11-29 ity of tablet 00:00: 00:00 [place] 00 :00 Medical Branch QUEtiapine 2022-0 2023- No Univer s 100 mg 4-26 11-29 ity of tablet 00:00: 00:00 [place] 00 :00 Medical Branch QUEtiapine 2022-0 2023- No Univer s 100 mg 4-26 11-29 ity of tablet 00:00: 00:00 [place] 00 :00 Medical Branch QUEtiapine 2022-0 2023- No Univer s 100 mg 4-26 11-29 ity of tablet 00:00: 00:00 [place] 00 :00 Medical Branch FLUoxetine 2022-0 2023- No Univer s 40 mg 4-26 11-29 ity of capsule 00:00: 00:00 [place] 00 :00 Medical Branch QUEtiapine 2022-0 3- No Univer s 100 mg 03-05 ity of tablet 00:00: 00:00 [place] 00 :00 Medical Branch FLUoxetine 2-0 2023- No Univer s 40 mg 03-05 ity of capsule 00:00: 00:00 [place] 00 :00 Medical Branch QUEtiapine 2022-0 2023- No Univer s 100 mg 03-05 ity of tablet 00:00: 00:00 [place] 00 :00 Medical Branch FLUoxetine 2022-0 2023- No Univer s 40 mg 03-05 ity of capsule 00:00: 00:00 [place] 00 :00 Medical Branch cetirizine 2-0 Yes 10mg Take 10 mg U nivers 10 mg 4-18 by mouth ity of tablet 00:00: daily. [place] [facility] cetirizine 2021-0 Yes 10mg Take 10 mg U nivers 10 mg 4-18 by mouth ity of tablet 00:00: daily. [place] [facility] cetirizine 2021-0 Yes 10mg Take 10 mg U nivers 10 mg 4-18 by mouth ity of tablet 00:00: daily. [place] [facility] cetirizine 2021-0 Yes 10mg Take 10 mg U nivers 10 mg 4-18 by mouth ity of tablet 00:00: daily. [place] [facility] cetirizine 2021-0 Yes 10mg Take 10 mg U nivers 10 mg 4-18 by mouth ity of tablet 00:00: daily. [place] [facility] cetirizine 2021-0 Yes 10mg Take 10 mg U nivers 10 mg 4-18 by mouth ity of tablet 00:00: daily. [place] 00 Medical Branch cetirizine 2021-0 Yes 10mg Take 10 mg U nivers 10 mg 4-18 by mouth ity of tablet 00:00: daily. [place] [facility] Branch cetirizine 2021-0 Yes 10mg Take 10 mg U nivers 10 mg 4-18 by mouth ity of tablet 00:00: daily. [place] [facility] cetirizine 2021-0 Yes 10mg Take 10 mg U nivers 10 mg 4-18 by mouth ity of tablet 00:00: daily. [address] Branch cetirizine 2021-0 Yes 10mg Take 10 mg U nivers 10 mg 4-18 by mouth ity of tablet 00:00: daily. [place] [facility] Branch cetirizine 2021-0 Yes 10mg Take 10 mg U nivers 10 mg 4-18 by mouth ity of tablet 00:00: daily. [place] [facility] cetirizine 2021-0 Yes 10mg Take 10 mg U nivers 10 mg 4-18 by mouth ity of tablet 00:00: daily. [place] [facility] cetirizine 2021-0 Yes 10mg Take 10 mg U nivers 10 mg 4-18 by mouth ity of tablet 00:00: daily. [place] [facility] cetirizine 2021-0 Yes 10mg Take 10 mg U nivers 10 mg 4-18 by mouth ity of tablet 00:00: daily. [place] [facility] cetirizine 2021-0 Yes 10mg Take 10 mg U nivers 10 mg 4-18 by mouth ity of tablet 00:00: daily. [place] [facility] cetirizine 2021-0 Yes 10mg Take 10 mg U nivers 10 mg 4-18 by mouth ity of tablet 00:00: daily. [place] [facility] cetirizine 2021-0 Yes 10mg Take 10 mg U nivers 10 mg 4-18 by mouth ity of tablet 00:00: daily. [place] [facility] cetirizine 2021-0 Yes 10mg Take 10 mg U nivers 10 mg 4-18 by mouth ity of tablet 00:00: daily. [place] [facility] cetirizine 2021-0 Yes 10mg Take 10 mg U nivers 10 mg 4-18 by mouth ity of tablet 00:00: daily. [place] [facility] cetirizine 2021-0 2023- No 10mg Take 10 mg Univers 10 mg 4-18 11-29 by mouth ity of tablet 00:00: 00:00 daily. [place] 00 :00 [facility] cetirizine 2021-0 2023- No 10mg Take 10 mg Univers 10 mg 4-18 11-29 by mouth ity of tablet 00:00: 00:00 daily. [place] 00 :00 [facility] cetirizine 2021-0 2023- No 10mg Take 10 mg Univers 10 mg 4-18 11-29 by mouth ity of tablet 00:00: 00:00 daily. [place] 00 :00 Medical Branch cetirizine 2022- No 10mg Take 10 mg Univers 10 mg 4-18 -29 by mouth ity of tablet 00:00: 00:00 daily. [place] 00 :00 Medical Branch cetirizine 2022- No 10mg Take 10 mg Univers 10 mg 418 -29 by mouth ity of tablet 00:00: 00:00 daily. [place] 00 :00 Medical Branch cetirizine 2022- No 10mg Take 10 mg Univers 10 mg 418 -29 by mouth ity of tablet 00:00: 00:00 daily. [place] 00 :00 Medical Branch albuterol 2020-11 Yes 2{puff} Inhale 2 [...] Branch MOUTH EVERY DAY docusate 2020-11 Yes [id number] 240mg Take 1 U nivers calcium 240 1-02 capsule by it y of mg capsule 00:00: mouth once [place] 00 daily as Medical needed for Branch Constipati on. ferrous 2020-11 Yes [id number] 325mg Take 1 Un alberto sulfate 325 1-02 tablet by ity of mg (65 mg 00:00: mouth 2 [place] iron) 00 (two) Medical tablet times Branch daily. docusate 2020-11 Yes [id number] 240mg Take 1 U nivers calcium 240 1-02 capsule by it y of mg capsule 00:00: mouth once [place] 00 daily as Medical needed for Branch Constipati on. ferrous 2020-11 Yes [id number] 325mg Take 1 Un alberto sulfate 325 1-02 tablet by ity of mg (65 mg 00:00: mouth 2 [place] iron) 00 (two) Medical tablet times Branch daily. docusate 2020-11 Yes [id number] 240mg Take 1 U nivers calcium 240 1-02 capsule by it y of mg capsule 00:00: mouth once [place] 00 daily as Medical needed for Branch Constipati on. ferrous 2020-11 Yes [id number] 325mg Take 1 Un alberto sulfate 325 1-02 tablet by ity of mg (65 mg 00:00: mouth 2 [place] iron) 00 (two) Medical tablet times Branch daily. docusate 2020-11 Yes [id number] 240mg Take 1 U nivers calcium 240 1-02 capsule by it y of mg capsule 00:00: mouth once [place] 00 daily as Medical needed for Branch Constipati on. ferrous 2020-11 Yes [id number] 325mg Take 1 Un alberto sulfate 325 1-02 tablet by ity of mg (65 mg 00:00: mouth 2 [place] iron) 00 (two) Medical tablet times Branch daily. docusate 2020-11 Yes [id number] 240mg Take 1 U nivers calcium 240 1-02 capsule by it y of mg capsule 00:00: mouth once [place] 00 daily as Medical needed for Branch Constipati on. ferrous 2020-11 Yes [id number] 325mg Take 1 Un alberto sulfate 325 1-02 tablet by ity of mg (65 mg 00:00: mouth 2 [place] iron) 00 (two) Medical tablet times Branch daily. docusate 2020-11 Yes [id number] 240mg Take 1 U nivers calcium 240 1-02 capsule by it y of mg capsule 00:00: mouth once [place] 00 daily as Medical needed for Branch Constipati on. ferrous 2020-11 Yes [id number] 325mg Take 1 Un alberto sulfate 325 1-02 tablet by ity of mg (65 mg 00:00: mouth 2 [place] iron) 00 (two) Medical tablet times Branch daily. docusate 2020-11 Yes [id number] 240mg Take 1 U nivers calcium 240 1-02 capsule by it y of mg capsule 00:00: mouth once [place] 00 daily as Medical needed for Branch Constipati on. ferrous 2020-11 Yes [id number] 325mg Take 1 Un alberto sulfate 325 1-02 tablet by ity of mg (65 mg 00:00: mouth 2 [place] iron) 00 (two) Medical tablet times Branch daily. docusate 2020-11 Yes [id number] 240mg Take 1 U nivers calcium 240 1-02 capsule by it y of mg capsule 00:00: mouth once [place] 00 daily as Medical needed for Branch Constipati on. ferrous 2020-11 Yes [id number] 325mg Take 1 Un alberto sulfate 325 1-02 tablet by ity of mg (65 mg 00:00: mouth 2 [place] iron) 00 (two) Medical tablet times Branch daily. docusate 2020-11 Yes [id number] 240mg Take 1 U nivers calcium 240 1-02 capsule by it y of mg capsule 00:00: mouth once [place] 00 daily as Medical needed for Branch Constipati on. ferrous 2020-11 Yes [id number] 325mg Take 1 Un alberto sulfate 325 1-02 tablet by ity of mg (65 mg 00:00: mouth 2 [place] iron) 00 (two) Medical tablet times Branch daily. docusate 2020-11 Yes [id number] 240mg Take 1 U nivers calcium 240 1-02 capsule by it y of mg capsule 00:00: mouth once [place] 00 daily as Medical needed for Branch Constipati on. ferrous 2020-11 Yes [id number] 325mg Take 1 Un alberto sulfate 325 1-02 tablet by ity of mg (65 mg 00:00: mouth 2 [place] iron) 00 (two) Medical tablet times Branch daily. docusate 2020-11 Yes [id number] 240mg Take 1 U nivers calcium 240 1-02 capsule by it y of mg capsule 00:00: mouth once [place] 00 daily as Medical needed for Branch Constipati on. ferrous 2020-11 Yes [id number] 325mg Take 1 Un alberto sulfate 325 1-02 tablet by ity of mg (65 mg 00:00: mouth 2 [place] iron) 00 (two) Medical tablet times Branch daily. docusate 2020-11 Yes [id number] 240mg Take 1 U nivers calcium 240 1-02 capsule by it y of mg capsule 00:00: mouth once [place] 00 daily as Medical needed for Branch Constipati on. ferrous 2020-11 Yes [id number] 325mg Take 1 Un alberto sulfate 325 1-02 tablet by ity of mg (65 mg 00:00: mouth 2 [place] iron) 00 (two) Medical tablet times Branch daily. docusate 2020-11 Yes [id number] 240mg Take 1 U nivers calcium 240 1-02 capsule by it y of mg capsule 00:00: mouth once [place] 00 daily as Medical needed for Branch Constipati on. ferrous 2020-11 Yes [id number] 325mg Take 1 Un alberto sulfate 325 1-02 tablet by ity of mg (65 mg 00:00: mouth 2 [place] iron) 00 (two) Medical tablet times Branch daily. docusate 2020-11 Yes [id number] 240mg Take 1 U nivers calcium 240 1-02 capsule by it y of mg capsule 00:00: mouth once [place] 00 daily as Medical needed for Branch Constipati on. ferrous 2020-11 Yes [id number] 325mg Take 1 Un alberto sulfate 325 1-02 tablet by ity of mg (65 mg 00:00: mouth 2 [place] iron) 00 (two) Medical tablet times Branch daily. docusate 2020-11 Yes [id number] 240mg Take 1 U nivers calcium 240 1-02 capsule by it y of mg capsule 00:00: mouth once [place] 00 daily as Medical needed for Branch Constipati on. ferrous 2020-11 Yes [id number] 325mg Take 1 Un alberto sulfate 325 1-02 tablet by ity of mg (65 mg 00:00: mouth 2 [place] iron) 00 (two) Medical tablet times Branch daily. docusate 2020-11 Yes [id number] 240mg Take 1 U nivers calcium 240 1-02 capsule by it y of mg capsule 00:00: mouth once [place] 00 daily as Medical needed for Branch Constipati on. ferrous 2020-11 Yes [id number] 325mg Take 1 Un alberto sulfate 325 1-02 tablet by ity of mg (65 mg 00:00: mouth 2 [place] iron) 00 (two) Medical tablet times Branch daily. docusate 2020-11 Yes [id number] 240mg Take 1 U nivers calcium 240 1-02 capsule by it y of mg capsule 00:00: mouth once [place] 00 daily as Medical needed for Branch Constipati on. ferrous 2020-11 Yes [id number] 325mg Take 1 Un alberto sulfate 325 1-02 tablet by ity of mg (65 mg 00:00: mouth 2 [place] iron) 00 (two) Medical tablet times Branch daily. docusate 2020-11 Yes [id number] 240mg Take 1 U nivers calcium 240 1-02 capsule by it y of mg capsule 00:00: mouth once [place] 00 daily as Medical needed for Branch Constipati on. ferrous 2020-11 Yes [id number] 325mg Take 1 Un alberto sulfate 325 1-02 tablet by ity of mg (65 mg 00:00: mouth 2 [place] iron) 00 (two) Medical tablet times Branch daily. docusate 2020-11 Yes [id number] 240mg Take 1 U nivers calcium 240 1-02 capsule by it y of mg capsule 00:00: mouth once [place] 00 daily as Medical needed for Branch Constipati on. ferrous 2020-11 Yes [id number] 325mg Take 1 Un alberto sulfate 325 1-02 tablet by ity of mg (65 mg 00:00: mouth 2 [place] iron) 00 (two) Medical tablet times Branch daily. docusate 2020-11- No [id number] 240mg Take 1 Univers calcium 240 11-11 capsule by i ty of mg capsule 00:00: 00:00 mouth once [place] 00 :00 daily as Medical needed for Branch Constipati on. ferrous 2020-11- No [id number] 325mg Take 1 U nivers sulfate 325 11-11 tablet by it y of mg (65 mg 00:00: 00:00 mouth 2 [place] 00 :00 (two) Medical tablet times Branch daily. docusate 2020-11- No [id number] 240mg Take 1 Univers calcium 240 11-11 capsule by i ty of mg capsule 00:00: 00:00 mouth once [place] 00 :00 daily as Medical needed for Branch Constipati on. ferrous 2020-11- No [id number] 325mg Take 1 U nivers sulfate 325 11-11 tablet by it y of mg (65 mg 00:00: 00:00 mouth 2 [place] iron[place] 00 :00 (two) Medical tablet times Branch daily. docusate 2020-11- No [id number] 240mg Take 1 Univers calcium 240 11-11 capsule by i ty of mg capsule 00:00: 00:00 mouth once [place] 00 :00 daily as Medical needed for Branch Constipati on. ferrous 2020-11- No [id number] 325mg Take 1 U nivers sulfate 325 11-11 tablet by it y of mg (65 mg 00:00: 00:00 mouth 2 [place] iron[place] 00 :00 (two) Medical tablet times Branch daily. docusate 2020-11- No [id number] 240mg Take 1 Univers calcium 240 11-11 capsule by i ty of mg capsule 00:00: 00:00 mouth once [place] 00 :00 daily as Medical needed for Branch Constipati on. ferrous 2020-11- No [id number] 325mg Take 1 U nivers sulfate 325 11-11 tablet by it y of mg (65 mg 00:00: 00:00 mouth 2 [place] iron[place] 00 :00 (two) Medical tablet times Branch daily. docusate 2020-11- No [id number] 240mg Take 1 Univers calcium 240 11-11 capsule by i ty of mg capsule 00:00: 00:00 mouth once [place] 00 :00 daily as Medical needed for Branch Constipati on. ferrous 2020-11- No [id number] 325mg Take 1 U nivers sulfate 325 11-11 tablet by it y of mg (65 mg 00:00: 00:00 mouth 2 [place] iron[place] 00 :00 (two) Medical tablet times [place] daily. docusate 2020-11- No [id number] 240mg Take 1 Univers calcium 240 11-11 capsule by i ty of mg capsule 00:00: 00:00 mouth once [place] 00 :00 daily as Medical needed for Branch Constipati on. ferrous 2020-11- No [id number] 325mg Take 1 U nivers sulfate 325 11-11 tablet by it y of mg (65 mg 00:00: 00:00 mouth 2 [place] iron[place] 00 :00 (two) Medical tablet times [place] daily. QUEtiapine 2018-11 Yes 50mg Take 50 mg U nivers 50 mg 1-25 by mouth ity of tablet 00:00: daily. [address] QUEtiapine 2018-11 Yes 50mg Take 50 mg U nivers 50 mg 1-25 by mouth ity of tablet 00:00: daily. [address] QUEtiapine 2018-11 Yes 50mg Take 50 mg U nivers 50 mg 1-25 by mouth ity of tablet 00:00: daily. [address] QUEtiapine 2018- Yes 50mg Take 50 mg U nivers 50 mg 1-25 by mouth ity of tablet 00:00: daily. [address] QUEtiapine 2018- Yes 50mg Take 50 mg U nivers 50 mg 1-25 by mouth ity of tablet 00:00: daily. [address] QUEtiapine 2018- Yes 50mg Take 50 mg U nivers 50 mg 1-25 by mouth ity of tablet 00:00: daily. [address] QUEtiapine 2018- Yes 50mg Take 50 mg U nivers 50 mg 1-25 by mouth ity of tablet 00:00: daily. [address] QUEtiapine 2018- Yes 50mg Take 50 mg U nivers 50 mg 1-25 by mouth ity of tablet 00:00: daily. [place] [facility] QUEtiapine 2018- Yes 50mg Take 50 mg U nivers 50 mg 1-25 by mouth ity of tablet 00:00: daily. [place] [facility] QUEtiapine 2018-11 Yes 50mg Take 50 mg U nivers 50 mg 1-25 by mouth ity of tablet 00:00: daily. [place] [facility] QUEtiapine 2018- Yes 50mg Take 50 mg U nivers 50 mg 1-25 by mouth ity of tablet 00:00: daily. [place] [facility] QUEtiapine 2018- Yes 50mg Take 50 mg U nivers 50 mg 1-25 by mouth ity of tablet 00:00: daily. [place] [facility] QUEtiapine 2018- Yes 50mg Take 50 mg U nivers 50 mg 1-25 by mouth ity of tablet 00:00: daily. [place] [facility] QUEtiapine 2018- Yes 50mg Take 1 Unive rs 50 mg 1-25 tablet by ity of tablet 00:00: mouth in [place] [facility] morning. [facility] QUEtiapine 2018- Yes 50mg Take 1 Unive rs 50 mg 1-25 tablet by ity of tablet 00:00: mouth in [place] the [facility] morning. [facility] QUEtiapine 2018-11 Yes 50mg Take 1 Unive rs 50 mg 1-25 tablet by ity of tablet 00:00: mouth in [place] the morning. Branch QUEtiapine 2018- Yes 50mg Take 1 Unive rs 50 mg 1-25 tablet by ity of tablet 00:00: mouth in [place] the [facility] morning. [facility] QUEtiapine 2018- Yes 50mg Take 1 Unive rs 50 mg 1-25 tablet by ity of tablet 00:00: mouth in [place] the [facility] morning. [facility] QUEtiapine 2018- Yes 50mg Take 1 Unive rs 50 mg 1-25 tablet by ity of tablet 00:00: mouth in [place] the [facility] morning. [facility] QUEtiapine 2018- Yes 50mg Take 1 Unive rs 50 mg 1-25 tablet by ity of tablet 00:00: mouth in [place] the [facility] morning. [facility] QUEtiapine 2018- Yes 50mg Take 1 Unive rs 50 mg 1-25 tablet by ity of tablet 00:00: mouth in [place] the [facility] morning. [facility] QUEtiapine 2018-11 Yes 50mg Take 1 Unive rs 50 mg 1-25 tablet by ity of tablet 00:00: mouth in [place] 00 the Medical morning. [place] QUEtiapine 2018-11 Yes 50mg Take 1 Unive rs 50 mg 1-25 tablet by ity of tablet 00:00: mouth in [place] 00 the Medical morning. [place] QUEtiapine 2018-11 Yes 50mg Take 1 Unive rs 50 mg 1-25 tablet by ity of tablet 00:00: mouth in [place] 00 the Medical morning. [place] QUEtiapine 2018-11 Yes 50mg Take 1 Unive rs 50 mg 1-25 tablet by ity of tablet 00:00: mouth in [place] 00 the Medical morning. [place] QUEtiapine 2018-11 Yes 50mg Take 1 Unive rs 50 mg 1-25 tablet by ity of tablet 00:00: mouth in [place] the Medical morning. [place] QUEtiapine 2018-11 Yes 50mg Take 1 Unive rs 50 mg 1-25 tablet by ity of tablet 00:00: mouth in [place] 00 the Medical morning. [place] Immunizations Ordered Immunization Filled Date Status Comments Sour ce Name Immunization Name Influenza Virus 2021-09-06 Completed [facility], 00:00:00 [place] [facility] Preserv and ABX Free Bran ch 6 MO-64 YRS Influenza Virus 2021-09-06 Completed [facility], 00:00:00 [place] [facility] Preserv and ABX Free Bran ch 6 MO-64 YRS Influenza Virus 2021-09-06 Completed [facility] IM, 00:00:00 [place] [facility] Preserv and ABX Free Bran ch 6 MO-64 YRS Influenza Virus 2021-09-06 Completed [facility]ine [facility] IM, 00:00:00 [place] [facility] Preserv and ABX Free Bran ch 6 MO-64 YRS Influenza Virus 2021-09-06 Completed [facility], 00:00:00 [place] [facility] Preserv and ABX Free Bran ch 6 MO-64 YRS Influenza Virus 2021-09-06 Completed [facility] Vaccine [facility] IM, 00:00:00 [place] [facility] Preserv and ABX Free Bran ch 6 MO-64 YRS Influenza Virus 2021-09-06 Completed [facility] Vaccine [facility] IM, 00:00:00 [place] [facility] Preserv and ABX Free Bran [...] [facility] IM, 00:00:00 [place] [facility] Preserv and ABX Free Bran ch 6 MO-64 YRS TDAP 2021-07-17 Completed [facility] 00:00:00 [facility] TDAP 2021-07-17 Completed [facility] of 00:00:00 [facility] TDAP 2021-07-17 Completed [facility] of 00:00:00 [facility] TDAP 2021-07-17 Completed [facility] of 00:00:00 [facility] TDAP 2021-07-17 Completed [facility] of 00:00:00 [facility] TDAP 2021-07-17 Completed [facility] 00:00:00 [facility] TDAP 2021-07-17 Completed [facility] of 00:00:00 [facility] TDAP 2021-07-17 Completed [facility] of 00:00:00 [facility] TDAP 2021-07-17 Completed [facility] of 00:00:00 [facility] TDAP 2021-07-17 Completed [facility] of 00:00:00 [facility] TDAP 2021-07-17 Completed [facility] of 00:00:00 [facility] TDAP 2021-07-17 Completed [facility] of 00:00:00 [facility] TDAP 2021-07-17 Completed [facility] of 00:00:00 [facility] TDAP 2021-07-17 Completed [facility] of 00:00:00 [facility] TDAP 2021-07-17 Completed [facility] of 00:00:00 [facility] TDAP 2021-07-17 Completed [facility] of 00:00:00 [facility] TDAP 2021-07-17 Completed [facility] of 00:00:00 [facility] Rho (d) Immune 2021-05-29 Completed University of Globulin 00:00:00 [facility] Rho (d) Immune 2021-05-29 Completed [facility] of Globulin 00:00:00 [facility] Rho (d) Immune 2021-05-29 Completed [facility] of Globulin 00:00:00 [facility] Rho (d) Immune 2021-05-29 Completed [facility] of Globulin 00:00:00 [facility] Rho (d) Immune 2021-05-29 Completed [facility] of Globulin 00:00:00 [facility] Rho (d) Immune 2021-05-29 Completed [facility] of Globulin 00:00:00 [facility] Rho (d) Immune 2021-05-29 Completed [facility] of Globulin 00:00:00 [facility] Rho (d) Immune 2021-05-29 Completed [facility] of Globulin 00:00:00 [facility] Rho (d) Immune 2021-05-29 Completed [facility] of Globulin 00:00:00 [facility] Rho (d) Immune 2021-05-29 Completed [facility] of Globulin 00:00:00 [facility] Rho (d) Immune 2021-05-29 Completed [facility] of Globulin 00:00:00 [facility] Rho (d) Immune 2021-05-29 Completed [facility] of Globulin 00:00:00 [facility] Rho (d) Immune 2021-05-29 Completed [facility] of Globulin 00:00:00 [facility] Rho (d) Immune 2021-05-29 Completed [facility] of Globulin 00:00:00 [facility] Rho (d) Immune 2021-05-29 Completed [facility] of Globulin 00:00:00 [facility] Rho (d) Immune 2021-05-29 Completed [facility] of Globulin 00:00:00 [facility] Rho (d) Immune 2021-05-29 Completed [facility] of Globulin 00:00:00 [facility] MMR 2020-02-01 Completed [facility] of 00:00:00 [facility] Rho (d) Immune 2020-02-01 Completed [facility] of Globulin 00:00:00 [facility] MMR 2020-02-01 Completed [facility] of 00:00:00 [facility] Rho (d) Immune 2020-02-01 Completed [facility] of Globulin 00:00:00 [facility] MMR 2020-02-01 Completed [facility] of 00:00:00 [facility] Rho (d) Immune 2020-02-01 Completed [facility] of Globulin 00:00:00 [facility] MMR 2020-02-01 Completed [facility] of 00:00:00 [facility] Rho (d) Immune 2020-02-01 Completed [facility] of Globulin 00:00:00 [facility] MMR 2020-02-01 Completed [facility] of 00:00:00 [facility] Rho (d) Immune 2020-02-01 Completed [facility] of Globulin 00:00:00 [facility] MMR 2020-02-01 Completed [facility] of 00:00:00 [facility] Rho (d) Immune 2020-02-01 Completed [facility] of Globulin 00:00:00 [facility] MMR 2020-02-01 Completed [facility] of 00:00:00 [facility] Rho (d) Immune 2020-02-01 Completed [facility] of Globulin 00:00:00 [facility] MMR 2020-02-01 Completed [facility] of 00:00:00 [facility] Rho (d) Immune 2020-02-01 Completed [facility] of Globulin 00:00:00 [facility] MMR 2020-02-01 Completed [facility] of 00:00:00 [facility] Rho (d) Immune 2020-02-01 Completed [facility] of Globulin 00:00:00 [facility] MMR 2020-02-01 Completed [facility] of 00:00:00 [facility] Rho (d) Immune 2020-02-01 Completed [facility] of Globulin 00:00:00 [facility] MMR 2020-02-01 Completed [facility] of 00:00:00 [facility] Rho (d) Immune 2020-02-01 Completed [facility] of Globulin 00:00:00 [facility] MMR 2020-02-01 Completed [facility] of 00:00:00 [facility] Rho (d) Immune 2020-02-01 Completed [facility] of Globulin 00:00:00 [facility] MMR 2020-02-01 Completed [facility] of 00:00:00 [facility] Rho (d) Immune 2020-02-01 Completed [facility] of Globulin 00:00:00 [facility] MMR 2020-02-01 Completed [facility] of 00:00:00 [facility] Rho (d) Immune 2020-02-01 Completed [facility] of Globulin 00:00:00 [facility] MMR 2020-02-01 Completed [facility] of 00:00:00 [facility] Rho (d) Immune 2020-02-01 Completed [facility] of Globulin 00:00:00 [facility] MMR 2020-02-01 Completed [facility] of 00:00:00 [facility] Rho (d) Immune 2020-02-01 Completed [facility] of Globulin 00:00:00 [facility] MMR 2020-02-01 Completed [facility] of 00:00:00 [facility] Rho (d) Immune 2020-02-01 Completed [facility] of Globulin 00:00:00 [facility] TDAP (ADACEL) 2019-12-08 Completed University of VACCINE 00:00:00 [facility] TDAP (ADACEL) 2019-12-08 Completed [facility] of VACCINE 00:00:00 [facility] TDAP (ADACEL) 2019-12-08 Completed [facility] of VACCINE 00:00:00 [facility] TDAP (ADACEL) 2019-12-08 Completed [facility] of VACCINE 00:00:00 [facility] TDAP (ADACEL) 2019-12-08 Completed [facility] of VACCINE 00:00:00 [facility] TDAP (ADACEL) 2019-12-08 Completed [facility] of VACCINE 00:00:00 [facility] TDAP (ADACEL) 2019-12-08 Completed [facility] of VACCINE 00:00:00 [facility] TDAP (ADACEL) 2019-12-08 Completed [facility] of VACCINE 00:00:00 [facility] TDAP (ADACEL) 2019-12-08 Completed [facility] of VACCINE 00:00:00 [facility] TDAP (ADACEL) 2019-12-08 Completed [facility] of VACCINE 00:00:00 [facility] TDAP (ADACEL) 2019-12-08 Completed [facility] of VACCINE 00:00:00 [facility] TDAP (ADACEL) 2019-12-08 Completed [facility] of VACCINE 00:00:00 [facility] TDAP (ADACEL) 2019-12-08 Completed [facility] of VACCINE 00:00:00 [facility] TDAP (ADACEL) 2019-12-08 Completed [facility] of VACCINE 00:00:00 [facility] TDAP (ADACEL) 2019-12-08 Completed [facility] of VACCINE 00:00:00 [facility] TDAP (ADACEL) 2019-12-08 Completed [facility] of VACCINE 00:00:00 [facility] TDAP (ADACEL) 2019-12-08 Completed [facility] of VACCINE 00:00:00 [facility] Influenza Virus 2019-08-18 Completed [facility] Vaccine [facility] .5 mL 00:00:00 [facility] 6+ MO Branch Influenza Virus 2019-08-18 Completed [facility] of Vaccine 00:00:00 [facility] Influenza Virus 2019-08-18 Completed [facility] Vaccine Quad .5 mL 00:00:00 [facility] 6+ MO Branch Influenza Virus 2019-08-18 Completed [facility] of Vaccine 00:00:00 [facility] Influenza Virus 2019-08-18 Completed [facility] Vaccine Quad .5 mL 00:00:00 [facility] 6+ MO Branch Influenza Virus 2019-08-18 Completed [facility] of Vaccine 00:00:00 [facility] Influenza Virus 2019-08-18 Completed [facility] Vaccine Quad .5 mL 00:00:00 [place] [facility] 6[facility] MO [facility] Influenza Virus 2019-08-18 Completed [facility] of Vaccine 00:00:00 [facility] Influenza Virus 2019-08-18 Completed [facility] Vaccine Quad .5 mL 00:00:00 [place] [facility] 6+ MO [facility] Influenza Virus 2019-08-18 Completed [facility] of Vaccine 00:00:00 [facility] Influenza Virus 2019-08-18 Completed [facility] Vaccine Quad .5 mL 00:00:00 [place] [facility] 6+ MO [facility] Influenza Virus 2019-08-18 Completed [facility] of Vaccine 00:00:00 [facility] Influenza Virus 2019-08-18 Completed [facility] Vaccine Quad .5 mL 00:00:00 [place] [facility] 6+ MO [facility] Influenza Virus 2019-08-18 Completed [facility] of Vaccine 00:00:00 [facility] Influenza Virus 2019-08-18 Completed [facility] Vaccine Quad .5 mL 00:00:00 [place] [facility] 6+ MO [facility] Influenza Virus 2019-08-18 Completed [facility] of Vaccine 00:00:00 [facility] Influenza Virus 2019-08-18 Completed [facility] Vaccine Quad .5 mL 00:00:00 [place] [facility] 6+ MO [facility] Influenza Virus 2019-08-18 Completed [facility] of Vaccine 00:00:00 [facility] Influenza Virus 2019-08-18 Completed [facility] Vaccine Quad .5 mL 00:00:00 [place] [facility] 6+ MO Branch Influenza Virus 2019-08-18 Completed [facility] of Vaccine 00:00:00 [facility] Influenza Virus 2019-08-18 Completed [facility] of Vaccine Quad .5 mL 00:00:00 [facility] 6+ MO Branch Influenza Virus 2019-08-18 Completed [facility] y of Vaccine 00:00:00 [facility] Influenza Virus 2019-08-18 Completed [facility] of Vaccine Quad .5 mL 00:00:00 [facility] 6+ MO Branch Influenza Virus 2019-08-18 Completed [facility] y of Vaccine 00:00:00 [facility] Influenza Virus 2019-08-18 Completed [facility] of Vaccine Quad .5 mL 00:00:00 [facility] 6+ MO Branch Influenza Virus 2019-08-18 Completed [facility] y of Vaccine 00:00:00 [facility] Influenza Virus 2019-08-18 Completed [facility] Vaccine Quad .5 mL 00:00:00 [place] [facility] 6+ MO Branch Influenza Virus 2019-08-18 Completed [facility] of Vaccine 00:00:00 [facility] Influenza Virus 2019-08-18 Completed [facility] Vaccine Quad .5 mL 00:00:00 [place] [facility] 6+ MO [facility] Influenza Virus 2019-08-18 Completed [facility] y of Vaccine 00:00:00 [facility] Influenza Virus 2019-08-18 Completed [facility] Vaccine Quad .5 mL 00:00:00 [place] [facility] 6+ MO [facility] Influenza Virus 2019-08-18 Completed [facility] of Vaccine 00:00:00 [facility] Influenza Virus 2019-08-18 Completed [facility] Vaccine Quad .5 mL 00:00:00 [place] [facility] 6+ MO Branch Influenza Virus 2019-08-18 Completed [facility] of Vaccine 00:00:00 [facility] Rho (d) Immune 2019-07-27 Completed [facility] of Globulin 00:00:00 [facility] Rho (d) Immune 2019-07-27 Completed [facility] of Globulin 00:00:00 [facility] Rho (d) Immune 2019-07-27 Completed [facility] of Globulin 00:00:00 [facility] Rho (d) Immune 2019-07-27 Completed [facility] of Globulin 00:00:00 [facility] Rho (d) Immune 2019-07-27 Completed [facility] Globulin 00:00:00 [facility] Rho (d) Immune 2019-07-27 Completed [facility] of Globulin 00:00:00 [facility] Rho (d) Immune 2019-07-27 Completed [facility] of Globulin 00:00:00 [facility] Rho (d) Immune 2019-07-27 Completed [facility] of Globulin 00:00:00 [facility] Rho (d) Immune 2019-07-27 Completed [facility] of Globulin 00:00:00 [facility] Rho (d) Immune 2019-07-27 Completed [facility] of Globulin 00:00:00 [facility] Rho (d) Immune 2019-07-27 Completed [facility] of Globulin 00:00:00 [facility] Rho (d) Immune 2019-07-27 Completed [facility] of Globulin 00:00:00 [facility] Rho (d) Immune 2019-07-27 Completed [facility] of Globulin 00:00:00 [facility] Rho (d) Immune 2019-07-27 Completed [facility] of Globulin 00:00:00 [facility] Rho (d) Immune 2019-07-27 Completed [facility] of Globulin 00:00:00 [facility] Rho (d) Immune 2019-07-27 Completed [facility] of Globulin 00:00:00 [facility] Rho (d) Immune 2019-07-27 Completed [facility] of Globulin 00:00:00 [facility] Influenza Virus 2018-09-10 Completed [facility] Vaccine Quad IM 3+ 00:00:00 [facility] Influenza Virus 2018-09-10 Completed [facility] y of Vaccine Quad IM 3+ 00:00:00 [facility] Influenza Virus 2018-09-10 Completed [facility] y of Vaccine Quad IM 3+ 00:00:00 [facility] Influenza Virus 2018-09-10 Completed [facility] y of Vaccine Quad IM 3+ 00:00:00 [facility] Influenza Virus 2018-09-10 Completed [facility] of Vaccine Quad IM 3+ 00:00:00 [facility] Influenza Virus 2018-09-10 Completed [facility] of Vaccine Quad IM 3+ 00:00:00 [facility] Influenza Virus 2018-09-10 Completed [facility] of Vaccine Quad IM 3+ 00:00:00 [facility] Influenza Virus 2018-09-10 Completed [facility] of Vaccine Quad IM 3+ 00:00:00 [facility] Influenza Virus 2018-09-10 Completed [facility] of Vaccine Quad IM 3+ 00:00:00 [facility] Influenza Virus 2018-09-10 Completed [facility] y of Vaccine Quad IM 3+ 00:00:00 [facility] Influenza Virus 2018-09-10 Completed [facility] of Vaccine Quad IM 3+ 00:00:00 [facility] Influenza Virus 2018-09-10 Completed [facility] of Vaccine Quad IM 3+ 00:00:00 [facility] Influenza Virus 2018-09-10 Completed [facility] of Vaccine Quad IM 3+ 00:00:00 [facility] Influenza Virus 2018-09-10 Completed [facility] of Vaccine Quad IM 3+ 00:00:00 [facility] Influenza Virus 2018-09-10 Completed [facility] of Vaccine Quad IM 3+ 00:00:00 [facility] Influenza Virus 2018-09-10 Completed [facility] of Vaccine Quad IM 3+ 00:00:00 [facility] Influenza Virus 2018-09-10 Completed [facility] of Vaccine Quad IM 3+ 00:00:00 [facility] Influenza Virus 2017-09-12 Completed [facility] of Vaccine Quad IM 3+ 00:00:00 [facility] Influenza Virus 2017-09-12 Completed [facility] y of Vaccine Quad IM 3+ 00:00:00 [facility] Influenza Virus 2017-09-12 Completed [facility] y of Vaccine Quad IM 3+ 00:00:00 [facility] Influenza Virus 2017-09-12 Completed [facility] y of Vaccine Quad IM 3+ 00:00:00 [facility] Influenza Virus 2017-09-12 Completed [facility] of Vaccine Quad IM 3+ 00:00:00 [facility] Influenza Virus 2017-09-12 Completed [facility] of Vaccine Quad IM 3+ 00:00:00 [facility] Influenza Virus 2017-09-12 Completed [facility] y of Vaccine Quad IM 3+ 00:00:00 [facility] Influenza Virus 2017-09-12 Completed [facility] of Vaccine Quad IM 3+ 00:00:00 [facility] Influenza Virus 2017-09-12 Completed [facility] of Vaccine Quad IM 3+ 00:00:00 [facility] Influenza Virus 2017-09-12 Completed [facility] y of Vaccine Quad IM 3+ 00:00:00 [facility] Influenza Virus 2017-09-12 Completed [facility] y of Vaccine Quad IM 3+ 00:00:00 [facility] Influenza Virus 2017-09-12 Completed [facility] y of Vaccine Quad IM 3+ 00:00:00 [facility] Influenza Virus 2017-09-12 Completed [facility] y of Vaccine Quad IM 3+ 00:00:00 [facility] Influenza Virus 2017-09-12 Completed [facility] of Vaccine Quad IM 3+ 00:00:00 [facility] Influenza Virus 2017-09-12 Completed [facility] of Vaccine Quad IM 3+ 00:00:00 [facility] Influenza Virus 2017-09-12 Completed [facility] of Vaccine Quad IM 3+ 00:00:00 [facility] Influenza Virus 2017-09-12 Completed [facility] of Vaccine Quad IM 3+ 00:00:00 [facility] Influenza Virus 2015-10-13 Completed [facility] y of Vaccine Nasal 00:00:00 [facility] Influenza Virus 2015-10-13 Completed [facility] y of Vaccine Nasal 00:00:00 [facility] Influenza Virus 2015-10-13 Completed [facility] y of Vaccine Nasal 00:00:00 [facility] Influenza Virus 2015-10-13 Completed [facility] y of Vaccine Nasal 00:00:00 [facility] Influenza Virus 2015-10-13 Completed [facility] y of Vaccine Nasal 00:00:00 [facility] Influenza Virus 2015-10-13 Completed [facility] y of Vaccine Nasal 00:00:00 [facility] Influenza Virus 2015-10-13 Completed [facility] y of Vaccine Nasal 00:00:00 [facility] Influenza Virus 2015-10-13 Completed [facility] y of Vaccine Nasal 00:00:00 [facility] Influenza Virus 2015-10-13 Completed [facility] y of Vaccine Nasal 00:00:00 [facility] Influenza Virus 2015-10-13 Completed [facility] Vaccine Nasal 00:00:00 [facility] Influenza Virus 2015-10-13 Completed [facility] y of Vaccine Nasal 00:00:00 [facility] Influenza Virus 2015-10-13 Completed [facility] y of Vaccine Nasal 00:00:00 [facility] Influenza Virus 2015-10-13 Completed [facility] y of Vaccine Nasal 00:00:00 [facility] Influenza Virus 2015-10-13 Completed [facility] y of Vaccine Nasal 00:00:00 [facility] Influenza Virus 2015-10-13 Completed [facility] y of Vaccine Nasal 00:00:00 [facility] Influenza Virus 2015-10-13 Completed [facility] y of Vaccine Nasal 00:00:00 [facility] Influenza Virus 2015-10-13 Completed [facility] of Vaccine Nasal 00:00:00 [facility] Influenza Virus 2014-09-02 Completed [facility] Vaccine 00:00:00 [facility] Influenza Virus 2014-09-02 Completed [facility] y of Vaccine 00:00:00 [facility] Influenza Virus 2014-09-02 Completed [facility] y of Vaccine 00:00:00 [facility] Influenza Virus 2014-09-02 Completed [facility] y of Vaccine 00:00:00 [facility] Influenza Virus 2014-09-02 Completed [facility] y of Vaccine 00:00:00 [facility] Influenza Virus 2014-09-02 Completed [facility] y of Vaccine 00:00:00 [facility] Influenza Virus 2014-09-02 Completed [facility] y of Vaccine 00:00:00 [facility] Influenza Virus 2014-09-02 Completed [facility] y of Vaccine 00:00:00 [facility] Influenza Virus 2014-09-02 Completed [facility] of Vaccine 00:00:00 [facility] Influenza Virus 2014-09-02 Completed [facility] y of Vaccine 00:00:00 [facility] Influenza Virus 2014-09-02 Completed [facility] y of Vaccine 00:00:00 [facility] Influenza Virus 2014-09-02 Completed [facility] of Vaccine 00:00:00 [facility] Influenza Virus 2014-09-02 Completed [facility] of Vaccine 00:00:00 [facility] Influenza Virus 2014-09-02 Completed [facility] Vaccine 00:00:00 [facility] Influenza Virus 2014-09-02 Completed [facility] Vaccine 00:00:00 [facility] Influenza Virus 2014-09-02 Completed [facility] Vaccine 00:00:00 [facility] Influenza Virus 2014-09-02 Completed [facility] Vaccine 00:00:00 [facility] HPV 2014-01-18 Completed [facility] 00:00:00 [facility] Meningococcal 2014-01-18 Completed [facility] of Vaccine 00:00:00 [facility] Varicella 2014-01-18 Completed [facility] of (varivax)(chicken 00:00:00 [place] [facility]ox[facility] TDAP 2014-01-18 Completed [facility] 00:00:00 [facility] Meningococcal 2014-01-18 Completed [facility] Polysaccharide 00:00:00 [place] [facility] (groups A, C, Y and Branc h W-135) conjugate vaccine (MCV4P) HPV 2014-01-18 Completed [facility] 00:00:00 [facility] Meningococcal 2014-01-18 Completed [facility] of Vaccine 00:00:00 [facility] Varicella 2014-01-18 Completed [facility] of (varivax)(chicken 00:00:00 [facility] ed[facility] pox) Branch AP 2014-01-18 Completed [facility] of 00:00:00 [facility] Meningococcal 2014-01-18 Completed [facility] Polysaccharide 00:00:00 [place] [facility] (groups A, C, Y and Branc h W-135) conjugate vaccine (MCV4P) HPV 2014-01-18 Completed [facility] 00:00:00 [facility] Meningococcal 2014-01-18 Completed [facility] of Vaccine 00:00:00 [facility] Varicella 2014-01-18 Completed [facility] of (varivax)(chicken 00:00:00 [facility] edical pox) Branch TDAP 2014-01-18 Completed [facility] 00:00:00 [facility] Meningococcal 2014-01-18 Completed [facility] Polysaccharide 00:00:00 [place] [facility] (groups A, C, Y and Branc h W-135) conjugate vaccine (MCV4P) HPV 2014-01-18 Completed [facility] 00:00:00 [facility] Meningococcal 2014-01-18 Completed [facility] of Vaccine 00:00:00 [facility] Varicella 2014-01-18 Completed [facility] of (varivax)(chicken 00:00:00 [facility] edical pox) Branch TDAP 2014-01-18 Completed [facility] 00:00:00 [facility] Meningococcal 2014-01-18 Completed [facility] Polysaccharide 00:00:00 [place] [facility] (groups A, C, Y and Branc h W-135) conjugate vaccine (MCV4P) HPV 2014-01-18 Completed [facility] 00:00:00 [facility] Meningococcal 2014-01-18 Completed [facility] Vaccine 00:00:00 [facility] Varicella 2014-01-18 Completed [facility] (varivax)(chicken 00:00:00 [place] [facility] pox) [facility] TDAP 2014-01-18 Completed [facility] 00:00:00 [facility] Meningococcal 2014-01-18 Completed [facility] Polysaccharide 00:00:00 [place] [facility] (groups A, C, Y and Branc h W-135) conjugate vaccine (MCV4P) HPV 2014-01-18 Completed [facility] 00:00:00 [facility] Meningococcal 2014-01-18 Completed [facility] of Vaccine 00:00:00 [facility] Varicella 2014-01-18 Completed [facility] (varivax)(chicken 00:00:00 [place] [facility]ox[facility] TDAP 2014-01-18 Completed [facility] 00:00:00 [facility] Meningococcal 2014-01-18 Completed [facility] Polysaccharide 00:00:00 [place] [facility] (groups A, C, Y and Branc h W-135) conjugate vaccine (MCV4P) HPV 2014-01-18 Completed [facility] 00:00:00 [facility] Meningococcal 2014-01-18 Completed [facility] of Vaccine 00:00:00 [facility] Varicella 2014-01-18 Completed [facility] (varivax)(chicken 00:00:00 [place] [facility] pox) [facility] TDAP 2014-01-18 Completed [facility] 00:00:00 [facility] Meningococcal 2014-01-18 Completed [facility] Polysaccharide 00:00:00 [place] [facility] (groups A, C, Y and Branc h W-135) conjugate vaccine (MCV4P) HPV 2014-01-18 Completed [facility] 00:00:00 [facility] Meningococcal 2014-01-18 Completed [facility] of Vaccine 00:00:00 [facility] Varicella 2014-01-18 Completed [facility] (varivax)(chicken 00:00:00 [place] [facility] pox) [facility] TDAP 2014-01-18 Completed [facility] 00:00:00 [facility] Meningococcal 2014-01-18 Completed [facility] Polysaccharide 00:00:00 [place] [facility] (groups A, C, Y and Branc h W-135) conjugate vaccine (MCV4P) HPV 2014-01-18 Completed [facility] 00:00:00 [facility] Meningococcal 2014-01-18 Completed [facility] of Vaccine 00:00:00 [facility] Varicella 2014-01-18 Completed [facility] (varivax)(chicken 00:00:00 [place] [facility] pox) [facility] TDAP 2014-01-18 Completed [facility] 00:00:00 [facility] Meningococcal 2014-01-18 Completed [facility] Polysaccharide 00:00:00 [place] [facility] (groups A, C, Y and Branc h W-135) conjugate vaccine (MCV4P) HPV 2014-01-18 Completed [facility] 00:00:00 [facility] Meningococcal 2014-01-18 Completed [facility] of Vaccine 00:00:00 [facility] Varicella 2014-01-18 Completed [facility] (varivax)(chicken 00:00:00 [place] [facility] pox) [facility] TDAP 2014-01-18 Completed [facility] 00:00:00 [facility] Meningococcal 2014-01-18 Completed [facility] Polysaccharide 00:00:00 [place] [facility] (groups A, C, Y and Branc h W-135) conjugate vaccine (MCV4P) HPV 2014-01-18 Completed [facility] 00:00:00 [facility] Meningococcal 2014-01-18 Completed [facility] of Vaccine 00:00:00 [facility] Varicella 2014-01-18 Completed [facility] (varivax)(chicken 00:00:00 [place] [facility] pox) [facility] TDAP 2014-01-18 Completed [facility] 00:00:00 [facility] Meningococcal 2014-01-18 Completed [facility] Polysaccharide 00:00:00 [place] [facility] (groups A, C, Y and Branc h W-135) conjugate vaccine (MCV4P) HPV 2014-01-18 Completed [facility] 00:00:00 [facility] Meningococcal 2014-01-18 Completed [facility] of Vaccine 00:00:00 [facility] Varicella 2014-01-18 Completed [facility] (varivax)(chicken 00:00:00 [place] [facility] pox) [facility] TDAP 2014-01-18 Completed [facility] 00:00:00 [facility] Meningococcal 2014-01-18 Completed [facility] Polysaccharide 00:00:00 [place] [facility] (groups A, C, Y and Branc h W-135) conjugate vaccine (MCV4P) HPV 2014-01-18 Completed [facility] 00:00:00 [facility] Meningococcal 2014-01-18 Completed [facility] of Vaccine 00:00:00 [facility] Varicella 2014-01-18 Completed [facility] (varivax)(chicken 00:00:00 [place] [facility] pox) [facility] TDAP 2014-01-18 Completed [facility] 00:00:00 [facility] Meningococcal 2014-01-18 Completed [facility] Polysaccharide 00:00:00 [place] [facility] (groups A, C, Y and Branc h W-135) conjugate vaccine (MCV4P) HPV 2014-01-18 Completed [facility] 00:00:00 [facility] Meningococcal 2014-01-18 Completed [facility] of Vaccine 00:00:00 [facility] Varicella 2014-01-18 Completed [facility] (varivax)(chicken 00:00:00 [place] [facility]ox[facility] TDAP 2014-01-18 Completed [facility] 00:00:00 [facility] Meningococcal 2014-01-18 Completed [facility] Polysaccharide 00:00:00 [place] [facility] (groups A, C, Y and Branc h W-135) conjugate vaccine (MCV4P) HPV 2014-01-18 Completed [facility] 00:00:00 [facility] Meningococcal 2014-01-18 Completed [facility] of Vaccine 00:00:00 [facility] Varicella 2014-01-18 Completed [facility] of (varivax)(chicken 00:00:00 [place] [facility] pox[facility] TDAP 2014-01-18 Completed [facility] 00:00:00 [facility] Meningococcal 2014-01-18 Completed [facility] Polysaccharide 00:00:00 [place] [facility] (groups A, C, Y and Branc h W-135) conjugate vaccine (MCV4P) HPV 2014-01-18 Completed [facility] 00:00:00 [facility] Meningococcal 2014-01-18 Completed [facility] of Vaccine 00:00:00 [facility] Varicella 2014-01-18 Completed [facility] (varivax)(chicken 00:00:00 [place] [facility] pox) [facility] TDAP 2014-01-18 Completed [facility] 00:00:00 [facility] Meningococcal 2014-01-18 Completed [facility] Polysaccharide 00:00:00 [place] [facility] (groups A, C, Y and Branc h W-135) conjugate vaccine (MCV4P) HPV 2014-01-18 Completed [facility] 00:00:00 [facility] Meningococcal 2014-01-18 Completed [facility] of Vaccine 00:00:00 [facility] Varicella 2014-01-18 Completed [facility] (varivax)(chicken 00:00:00 [place] [facility] pox) [facility] TDAP 2014-01-18 Completed [facility] 00:00:00 [facility] Meningococcal 2014-01-18 Completed [facility] of Polysaccharide 00:00:00 [facility] jose (groups A, C, Y and Branc h W-135) conjugate vaccine (MCV4P) Influenza Virus 2013-09-23 Completed [facility] Vaccine 00:00:00 [facility] Influenza Virus 2013-09-23 Completed [facility] Vaccine 00:00:00 [facility] Influenza Virus 2013-09-23 Completed [facility] Vaccine 00:00:00 [facility] Influenza Virus 2013-09-23 Completed [facility] Vaccine 00:00:00 [facility] Influenza Virus 2013-09-23 Completed [facility] Vaccine 00:00:00 [facility] Influenza Virus 2013-09-23 Completed [facility] Vaccine 00:00:00 [facility] Influenza Virus 2013-09-23 Completed [facility] Vaccine 00:00:00 [facility] Influenza Virus 2013-09-23 Completed [facility] Vaccine 00:00:00 [facility] Influenza Virus 2013-09-23 Completed [facility] Vaccine 00:00:00 [facility] Influenza Virus 2013-09-23 Completed [facility] Vaccine 00:00:00 [facility] Influenza Virus 2013-09-23 Completed [facility] Vaccine 00:00:00 [facility] Influenza Virus 2013-09-23 Completed [facility] Vaccine 00:00:00 [facility] Influenza Virus 2013-09-23 Completed [facility] Vaccine 00:00:00 [facility] Influenza Virus 2013-09-23 Completed [facility] Vaccine 00:00:00 [facility] Influenza Virus 2013-09-23 Completed [facility] Vaccine 00:00:00 [facility] Influenza Virus 2013-09-23 Completed [facility] Vaccine 00:00:00 [facility] Influenza Virus 2013-09-23 Completed [facility] Vaccine 00:00:00 [facility] Influenza Virus 2012-11-24 Completed [facility] Vaccine 00:00:00 [facility] Influenza Virus 2012-11-24 Completed [facility] Vaccine 00:00:00 [facility] Influenza Virus 2012-11-24 Completed [facility] Vaccine 00:00:00 [facility] Influenza Virus 2012-11-24 Completed [facility] Vaccine 00:00:00 [facility] Influenza Virus 2012-11-24 Completed [facility] Vaccine 00:00:00 [facility] Influenza Virus 2012-11-24 Completed [facility] Vaccine 00:00:00 [facility] Influenza Virus 2012-11-24 Completed [facility] Vaccine 00:00:00 [facility] Influenza Virus 2012-11-24 Completed [facility] Vaccine 00:00:00 [facility] Influenza Virus 2012-11-24 Completed [facility] Vaccine 00:00:00 [facility] Influenza Virus 2012-11-24 Completed [facility] Vaccine 00:00:00 [facility] Influenza Virus 2012-11-24 Completed [facility] Vaccine 00:00:00 [facility] Influenza Virus 2012-11-24 Completed [facility] Vaccine 00:00:00 [facility] Influenza Virus 2012-11-24 Completed [facility] Vaccine 00:00:00 [facility] Influenza Virus 2012-11-24 Completed [facility] Vaccine 00:00:00 [facility] Influenza Virus 2012-11-24 Completed [facility] Vaccine 00:00:00 [facility] Influenza Virus 2012-11-24 Completed [facility] Vaccine 00:00:00 [facility] Influenza Virus 2012-11-24 Completed [facility] Vaccine 00:00:00 [facility] Influenza Virus 2011-08-23 Completed [facility] Vaccine Nasal 00:00:00 [facility] Influenza Virus 2011-08-23 Completed [facility] of Vaccine Nasal 00:00:00 [facility] Influenza Virus 2011-08-23 Completed [facility] of Vaccine Nasal 00:00:00 [facility] Influenza Virus 2011-08-23 Completed [facility] Vaccine Nasal 00:00:00 [facility] Influenza Virus 2011-08-23 Completed [facility] Vaccine Nasal 00:00:00 [facility] Influenza Virus 2011-08-23 Completed [facility] Vaccine Nasal 00:00:00 [facility] Influenza Virus 2011-08-23 Completed [facility] Vaccine Nasal 00:00:00 [facility] Influenza Virus 2011-08-23 Completed [facility] of Vaccine Nasal 00:00:00 [facility] Influenza Virus 2011-08-23 Completed [facility] Vaccine Nasal 00:00:00 [facility] Influenza Virus 2011-08-23 Completed [facility] of Vaccine Nasal 00:00:00 [facility] Influenza Virus 2011-08-23 Completed [facility] of Vaccine Nasal 00:00:00 [facility] Influenza Virus 2011-08-23 Completed [facility] of Vaccine Nasal 00:00:00 [facility] Influenza Virus 2011-08-23 Completed [facility] of Vaccine Nasal 00:00:00 [facility] Influenza Virus 2011-08-23 Completed [facility] of Vaccine Nasal 00:00:00 [facility] Influenza Virus 2011-08-23 Completed [facility] Vaccine Nasal 00:00:00 [facility] Influenza Virus 2011-08-23 Completed [facility] Vaccine Nasal 00:00:00 [facility] Influenza Virus 2011-08-23 Completed [facility] of Vaccine Nasal 00:00:00 [facility] HPV 2011-07-04 Completed [facility] 00:00:00 [facility] HPV 2011-07-04 Completed [facility] 00:00:00 [facility] HPV 2011-07-04 Completed [facility] 00:00:00 [facility] HPV 2011-07-04 Completed [facility] 00:00:00 [facility] HPV 2011-07-04 Completed [facility] 00:00:00 [facility] HPV 2011-07-04 Completed [facility] 00:00:00 [facility] HPV 2011-07-04 Completed [facility] 00:00:00 [facility] HPV 2011-07-04 Completed [facility] 00:00:00 [facility] HPV 2011-07-04 Completed [facility] 00:00:00 [facility] HPV 2011-07-04 Completed [facility] 00:00:00 [facility] HPV 2011-07-04 Completed [facility] 00:00:00 [facility] HPV 2011-07-04 Completed [facility] 00:00:00 [facility] HPV 2011-07-04 Completed [facility] 00:00:00 [facility] HPV 2011-07-04 Completed [facility] 00:00:00 [facility] HPV 2011-07-04 Completed [facility] 00:00:00 [facility] HPV 2011-07-04 Completed [facility] 00:00:00 [facility] HPV 2011-07-04 Completed [facility] 00:00:00 [facility] Influenza Virus 2010-09-06 Completed [facility] Vaccine 00:00:00 [facility] Influenza Virus 2010-09-06 Completed [facility] Vaccine 00:00:00 [facility] Influenza Virus 2010-09-06 Completed [facility] Vaccine 00:00:00 [facility] Influenza Virus 2010-09-06 Completed [facility] Vaccine 00:00:00 [facility] Influenza Virus 2010-09-06 Completed [facility] Vaccine 00:00:00 [facility] Influenza Virus 2010-09-06 Completed [facility] Vaccine 00:00:00 [facility] Influenza Virus 2010-09-06 Completed [facility] Vaccine 00:00:00 [facility] Influenza Virus 2010-09-06 Completed [facility] Vaccine 00:00:00 [facility] Influenza Virus 2010-09-06 Completed [facility] Vaccine 00:00:00 [facility] Influenza Virus 2010-09-06 Completed [facility] Vaccine 00:00:00 [facility] Influenza Virus 2010-09-06 Completed [facility] Vaccine 00:00:00 [facility] Influenza Virus 2010-09-06 Completed [facility] Vaccine 00:00:00 [facility] Influenza Virus 2010-09-06 Completed [facility] Vaccine 00:00:00 [facility] Influenza Virus 2010-09-06 Completed [facility] Vaccine 00:00:00 [facility] Influenza Virus 2010-09-06 Completed [facility] Vaccine 00:00:00 [facility] Influenza Virus 2010-09-06 Completed [facility] Vaccine 00:00:00 [facility] Influenza Virus 2010-09-06 Completed [facility] Vaccine 00:00:00 [facility] HEPATITIS A 2006-12-16 Completed [facility] 00:00:00 [facility] HEPATITIS A 2006-12-16 Completed [facility] 00:00:00 [facility] HEPATITIS A 2006-12-16 Completed [facility] 00:00:00 [facility] HEPATITIS A 2006-12-16 Completed [facility] 00:00:00 [facility] HEPATITIS A 2006-12-16 Completed [facility] 00:00:00 [facility] HEPATITIS A 2006-12-16 Completed [facility] 00:00:00 [facility] HEPATITIS A 2006-12-16 Completed [facility] 00:00:00 [facility] HEPATITIS A 2006-12-16 Completed [facility] 00:00:00 [facility] HEPATITIS A 2006-12-16 Completed [facility] 00:00:00 [facility] HEPATITIS A 2006-12-16 Completed [facility] 00:00:00 [facility] HEPATITIS A 2006-12-16 Completed [facility] 00:00:00 [facility] HEPATITIS A 2006-12-16 Completed [facility] 00:00:00 [facility] HEPATITIS A 2006-12-16 Completed [facility] 00:00:00 [facility] HEPATITIS A 2006-12-16 Completed [facility] 00:00:00 [facility] HEPATITIS A 2006-12-16 Completed [facility] 00:00:00 [facility] HEPATITIS A 2006-12-16 Completed [facility] 00:00:00 [facility] HEPATITIS A 2006-12-16 Completed [facility] 00:00:00 [facility] HEPATITIS A 2005-10-11 Completed [facility] 00:00:00 [facility] HEPATITIS A 2005-10-11 Completed [facility] 00:00:00 [facility] HEPATITIS A 2005-10-11 Completed [facility] 00:00:00 [facility] HEPATITIS A 2005-10-11 Completed [facility] 00:00:00 [facility] HEPATITIS A 2005-10-11 Completed [facility] 00:00:00 [facility] HEPATITIS A 2005-10-11 Completed [facility] 00:00:00 [facility] HEPATITIS A 2005-10-11 Completed [facility] 00:00:00 [facility] HEPATITIS A 2005-10-11 Completed [facility] 00:00:00 [facility] HEPATITIS A 2005-10-11 Completed [facility] 00:00:00 [facility] HEPATITIS A 2005-10-11 Completed [facility] 00:00:00 [facility] HEPATITIS A 2005-10-11 Completed [facility] 00:00:00 [facility] HEPATITIS A 2005-10-11 Completed [facility] 00:00:00 [facility] HEPATITIS A 2005-10-11 Completed [facility] 00:00:00 [facility] HEPATITIS A 2005-10-11 Completed [facility] 00:00:00 [facility] HEPATITIS A 2005-10-11 Completed [facility] 00:00:00 [facility] HEPATITIS A 2005-10-11 Completed [facility] 00:00:00 [facility] HEPATITIS A 2005-10-11 Completed [facility] 00:00:00 [facility] Influenza Virus 2003-09-06 Completed [facility] Vaccine 00:00:00 [facility] Influenza Virus 2003-09-06 Completed [facility] Vaccine 00:00:00 [facility] Influenza Virus 2003-09-06 Completed [facility] Vaccine 00:00:00 [facility] Influenza Virus 2003-09-06 Completed [facility] Vaccine 00:00:00 [facility] Influenza Virus 2003-09-06 Completed [facility] Vaccine 00:00:00 [facility] Influenza Virus 2003-09-06 Completed [facility] Vaccine 00:00:00 [facility] Influenza Virus 2003-09-06 Completed [facility] Vaccine 00:00:00 [facility] Influenza Virus 2003-09-06 Completed [facility] Vaccine 00:00:00 [facility] Influenza Virus 2003-09-06 Completed [facility] Vaccine 00:00:00 [facility] Influenza Virus 2003-09-06 Completed [facility] Vaccine 00:00:00 [facility] Influenza Virus 2003-09-06 Completed [facility] Vaccine 00:00:00 [facility] Influenza Virus 2003-09-06 Completed [facility] Vaccine 00:00:00 [facility] Influenza Virus 2003-09-06 Completed [facility] Vaccine 00:00:00 [facility] Influenza Virus 2003-09-06 Completed [facility] Vaccine 00:00:00 [facility] Influenza Virus 2003-09-06 Completed [facility] Vaccine 00:00:00 [facility] Influenza Virus 2003-09-06 Completed [facility] Vaccine 00:00:00 [facility] Influenza Virus 2003-09-06 Completed [facility] Vaccine 00:00:00 [facility] DTAP 2003-02-08 Completed [facility] 00:00:00 [facility] HIB 4 Dose Schedule 2003-02-08 Completed Unive rsity of 00:00:00 [facility] TDAP 2003-02-08 Completed [facility] 00:00:00 [facility] Heamophilus 2003-02-08 Completed [facility] of Influenza B 00:00:00 [facility] DTAP 2003-02-08 Completed [facility] 00:00:00 [facility] HIB 4 Dose Schedule 2003-02-08 Completed [facility]ive rsity of 00:00:00 [facility] TDAP 2003-02-08 Completed [facility] 00:00:00 [facility] Heamophilus 2003-02-08 Completed [facility] of Influenza B 00:00:00 [facility] DTAP 2003-02-08 Completed [facility] 00:00:00 [facility] HIB 4 Dose Schedule 2003-02-08 Completed [facility]ive rsity of 00:00:00 [facility] TDAP 2003-02-08 Completed [facility] 00:00:00 [facility] Heamophilus 2003-02-08 Completed [facility] of Influenza B 00:00:00 [facility] DTAP 2003-02-08 Completed [facility] 00:00:00 [facility] HIB 4 Dose Schedule 2003-02-08 Completed [facility]ive rsity of 00:00:00 [facility] TDAP 2003-02-08 Completed [facility] 00:00:00 [facility] Heamophilus 2003-02-08 Completed [facility] of Influenza B 00:00:00 [facility] DTAP 2003-02-08 Completed [facility] 00:00:00 [facility] HIB 4 Dose Schedule 2003-02-08 Completed Unive rsity of 00:00:00 [facility] TDAP 2003-02-08 Completed [facility] 00:00:00 [facility] Heamophilus 2003-02-08 Completed [facility] of Influenza B 00:00:00 [facility] DTAP 2003-02-08 Completed [facility] 00:00:00 [facility] HIB 4 Dose Schedule 2003-02-08 Completed Unive rsity of 00:00:00 [facility] TDAP 2003-02-08 Completed [facility] 00:00:00 [facility] Heamophilus 2003-02-08 Completed [facility] of Influenza B 00:00:00 [facility] DTAP 2003-02-08 Completed [facility] 00:00:00 [facility] HIB 4 Dose Schedule 2003-02-08 Completed Unive rsity of 00:00:00 [facility] TDAP 2003-02-08 Completed [facility] 00:00:00 [facility] Heamophilus 2003-02-08 Completed [facility] of Influenza B 00:00:00 [facility] DTAP 2003-02-08 Completed [facility] 00:00:00 [facility] HIB 4 Dose Schedule 2003-02-08 Completed Unive rsity of 00:00:00 [facility] TDAP 2003-02-08 Completed [facility] 00:00:00 [facility] Heamophilus 2003-02-08 Completed [facility] of Influenza B 00:00:00 [facility] DTAP 2003-02-08 Completed [facility] 00:00:00 [facility] HIB 4 Dose Schedule 2003-02-08 Completed [facility]ive [facility] 00:00:00 [facility] TDAP 2003-02-08 Completed [facility] 00:00:00 [facility] Heamophilus 2003-02-08 Completed [facility] Influenza B 00:00:00 [facility] DTAP 2003-02-08 Completed [facility] 00:00:00 [facility] HIB 4 Dose Schedule 2003-02-08 Completed [facility] 00:00:00 [facility] TDAP 2003-02-08 Completed [facility] 00:00:00 [facility] Heamophilus 2003-02-08 Completed [facility] Influenza B 00:00:00 [facility] DTAP 2003-02-08 Completed [facility] 00:00:00 [facility] HIB 4 Dose Schedule 2003-02-08 Completed [facility] 00:00:00 [facility] TDAP 2003-02-08 Completed [facility] 00:00:00 [facility] Heamophilus 2003-02-08 Completed [facility] Influenza B 00:00:00 [facility] DTAP 2003-02-08 Completed [facility] 00:00:00 [facility] HIB 4 Dose Schedule 2003-02-08 Completed [facility] 00:00:00 [facility] TDAP 2003-02-08 Completed [facility] 00:00:00 [facility] Heamophilus 2003-02-08 Completed [facility] Influenza B 00:00:00 [facility] DTAP 2003-02-08 Completed [facility] 00:00:00 [facility] HIB 4 Dose Schedule 2003-02-08 Completed [facility] 00:00:00 [facility] TDAP 2003-02-08 Completed [facility] 00:00:00 [facility] Heamophilus 2003-02-08 Completed [facility] Influenza B 00:00:00 [facility] DTAP 2003-02-08 Completed [facility] 00:00:00 [facility] HIB 4 Dose Schedule 2003-02-08 Completed [facility] 00:00:00 [facility] TDAP 2003-02-08 Completed [facility] 00:00:00 [facility] Heamophilus 2003-02-08 Completed [facility] Influenza B 00:00:00 [facility] DTAP 2003-02-08 Completed [facility] 00:00:00 [facility] HIB 4 Dose Schedule 2003-02-08 Completed [facility] 00:00:00 [facility] TDAP 2003-02-08 Completed [facility] 00:00:00 [facility] Heamophilus 2003-02-08 Completed [facility] Influenza B 00:00:00 [facility] DTAP 2003-02-08 Completed [facility] 00:00:00 [facility] HIB 4 Dose Schedule 2003-02-08 Completed [facility] 00:00:00 [facility] TDAP 2003-02-08 Completed [facility] 00:00:00 [facility] Heamophilus 2003-02-08 Completed [facility] Influenza B 00:00:00 [facility] DTAP 2003-02-08 Completed [facility] 00:00:00 [facility] HIB 4 Dose Schedule 2003-02-08 Completed [facility] 00:00:00 [facility] TDAP 2003-02-08 Completed [facility] 00:00:00 [facility] Heamophilus 2003-02-08 Completed [facility] Influenza B 00:00:00 [facility] Varicella 2002-11-23 Completed [facility] (varivax)(chicken 00:00:00 [facility] MMR 2002-11-23 Completed [facility] 00:00:00 [facility] IPV 2002-11-23 Completed [facility] 00:00:00 [facility] Varicella 2002-11-23 Completed [facility] (varivax)(chicken 00:00:00 [facility] MMR 2002-11-23 Completed [facility] 00:00:00 [facility] IPV 2002-11-23 Completed [facility] 00:00:00 [facility] Varicella 2002-11-23 Completed [facility] (varivax)(chicken 00:00:00 [facility] MMR 2002-11-23 Completed [facility] 00:00:00 [facility] IPV 2002-11-23 Completed [facility] 00:00:00 [facility] Varicella 2002-11-23 Completed [facility] (varivax)(chicken 00:00:00 [facility] MMR 2002-11-23 Completed [facility] 00:00:00 [facility] IPV 2002-11-23 Completed [facility] 00:00:00 [facility] Varicella 2002-11-23 Completed [facility] (varivax)(chicken 00:00:00 [facility] MMR 2002-11-23 Completed [facility] 00:00:00 [facility] IPV 2002-11-23 Completed [facility] 00:00:00 [facility] Varicella 2002-11-23 Completed [facility] (varivax)(chicken 00:00:00 [place] [facility] MMR 2002-11-23 Completed [facility] 00:00:00 [facility] IPV 2002-11-23 Completed [facility] 00:00:00 [facility] Varicella 2002-11-23 Completed [facility] (varivax)(chicken 00:00:00 [place] [facility] MMR 2002-11-23 Completed [facility] 00:00:00 [facility] IPV 2002-11-23 Completed [facility] 00:00:00 [facility] Varicella 2002-11-23 Completed [facility] (varivax)(chicken 00:00:00 [facility] MMR 2002-11-23 Completed [facility] 00:00:00 [facility] IPV 2002-11-23 Completed [facility] 00:00:00 [facility] Varicella 2002-11-23 Completed [facility] (varivax)(chicken 00:00:00 [place] [facility] MMR 2002-11-23 Completed [facility] 00:00:00 [facility] IPV 2002-11-23 Completed [facility] 00:00:00 [facility] Varicella 2002-11-23 Completed [facility] (varivax)(chicken 00:00:00 [place] [facility] MMR 2002-11-23 Completed [facility] 00:00:00 [facility] IPV 2002-11-23 Completed [facility] 00:00:00 [facility] Varicella 2002-11-23 Completed [facility] (varivax)(chicken 00:00:00 [place] [facility] MMR 2002-11-23 Completed [facility] 00:00:00 [facility] IPV 2002-11-23 Completed [facility] 00:00:00 [facility] Varicella 2002-11-23 Completed [facility] (varivax)(chicken 00:00:00 [place] [facility] MMR 2002-11-23 Completed [facility] 00:00:00 [facility] IPV 2002-11-23 Completed [facility] 00:00:00 [facility] Varicella 2002-11-23 Completed [facility] (varivax)(chicken 00:00:00 [place] [facility] MMR 2002-11-23 Completed [facility] 00:00:00 [facility] IPV 2002-11-23 Completed [facility] 00:00:00 [facility] Varicella 2002-11-23 Completed [facility] (varivax)(chicken 00:00:00 [place] [facility] MMR 2002-11-23 Completed [facility] 00:00:00 [facility] IPV 2002-11-23 Completed [facility] 00:00:00 [facility] Varicella 2002-11-23 Completed [facility] (varivax)(chicken 00:00:00 [place] [facility] MMR 2002-11-23 Completed [facility] 00:00:00 [facility] IPV 2002-11-23 Completed [facility] 00:00:00 [facility] Varicella 2002-11-23 Completed [facility] (varivax)(chicken 00:00:00 [place] [facility] MMR 2002-11-23 Completed [facility] 00:00:00 [facility] IPV 2002-11-23 Completed [facility] 00:00:00 [facility] Varicella 2002-11-23 Completed [facility] (varivax)(chicken 00:00:00 [facility] pox) [facility] MMR 2002-11-23 Completed [facility] 00:00:00 [facility] IPV 2002-11-23 Completed [facility] 00:00:00 [facility] DTAP 2002-08-03 Completed [facility] 00:00:00 [facility] HIB 4 Dose Schedule 2002-08-03 Completed [facility]ive rsity of 00:00:00 [facility] Hep B, Adol or Pedi 2002-08-03 Completed Unive rsity of Dosage 00:00:00 [facility] TDAP 2002-08-03 Completed [facility] 00:00:00 [facility] Heamophilus 2002-08-03 Completed [facility] Influenza B 00:00:00 [facility] DTAP 2002-08-03 Completed [facility] 00:00:00 [facility] HIB 4 Dose Schedule 2002-08-03 Completed [facility]ive rs[facility] of 00:00:00 [facility] Hep B, Adol or Pedi 2002-08-03 Completed Unive rsity of Dosage 00:00:00 [facility] TDAP 2002-08-03 Completed [facility] 00:00:00 [facility] Heamophilus 2002-08-03 Completed [facility] Influenza B 00:00:00 [facility] DTAP 2002-08-03 Completed [facility] 00:00:00 [facility] HIB 4 Dose Schedule 2002-08-03 Completed [facility]ive rsity of 00:00:00 [facility] Hep B, Adol or Pedi 2002-08-03 Completed Unive rsity of Dosage 00:00:00 [facility] TDAP 2002-08-03 Completed [facility] 00:00:00 [facility] Heamophilus 2002-08-03 Completed [facility] Influenza B 00:00:00 [facility] DTAP 2002-08-03 Completed [facility] 00:00:00 [facility] HIB 4 Dose Schedule 2002-08-03 Completed [facility]ive rsity of 00:00:00 [facility] Hep B, Adol or Pedi 2002-08-03 Completed [facility]ive rsity of Dosage 00:00:00 [facility] TDAP 2002-08-03 Completed [facility] 00:00:00 [facility] Heamophilus 2002-08-03 Completed [facility] Influenza B 00:00:00 [facility] DTAP 2002-08-03 Completed [facility] 00:00:00 [facility] HIB 4 Dose Schedule 2002-08-03 Completed [facility]ive rsity of 00:00:00 [facility] Hep B, Adol or Pedi 2002-08-03 Completed [facility]ive rsity of Dosage 00:00:00 [facility] TDAP 2002-08-03 Completed [facility] 00:00:00 [facility] Heamophilus 2002-08-03 Completed [facility] Influenza B 00:00:00 [facility] DTAP 2002-08-03 Completed [facility] 00:00:00 [facility] HIB 4 Dose Schedule 2002-08-03 Completed [facility]ive rsity of 00:00:00 [facility] Hep B, Adol or Pedi 2002-08-03 Completed [facility]ive rsity of Dosage 00:00:00 [facility] TDAP 2002-08-03 Completed [facility] 00:00:00 [facility] Heamophilus 2002-08-03 Completed [facility] Influenza B 00:00:00 [facility] DTAP 2002-08-03 Completed [facility] 00:00:00 [facility] HIB 4 Dose Schedule 2002-08-03 Completed [facility]ive [facility] 00:00:00 [facility] Hep B, Adol or Pedi 2002-08-03 Completed [facility]ive rs[facility] of Dosage 00:00:00 [facility] TDAP 2002-08-03 Completed [facility] 00:00:00 [facility] Heamophilus 2002-08-03 Completed [facility] Influenza B 00:00:00 [facility] DTAP 2002-08-03 Completed [facility] 00:00:00 [facility] HIB 4 Dose Schedule 2002-08-03 Completed [facility]ive [facility] 00:00:00 [facility] Hep B, Adol or Pedi 2002-08-03 Completed [facility]ive rsity of Dosage 00:00:00 [facility] TDAP 2002-08-03 Completed [facility] 00:00:00 [facility] Heamophilus 2002-08-03 Completed [facility] Influenza B 00:00:00 [facility] DTAP 2002-08-03 Completed [facility] 00:00:00 [facility] HIB 4 Dose Schedule 2002-08-03 Completed [facility]ive [facility] 00:00:00 [facility] Hep B, Adol or Pedi 2002-08-03 Completed [facility]ive [facility] of Dosage 00:00:00 [facility] TDAP 2002-08-03 Completed [facility] 00:00:00 [facility] Heamophilus 2002-08-03 Completed [facility] Influenza B 00:00:00 [facility] DTAP 2002-08-03 Completed [facility] 00:00:00 [facility] HIB 4 Dose Schedule 2002-08-03 Completed [facility]ive rsity of 00:00:00 [facility] Hep B, Adol or Pedi 2002-08-03 Completed [facility]ive [facility] of Dosage 00:00:00 [facility] TDAP 2002-08-03 Completed [facility] 00:00:00 [facility] Heamophilus 2002-08-03 Completed [facility] Influenza B 00:00:00 [facility] DTAP 2002-08-03 Completed [facility] 00:00:00 [facility] HIB 4 Dose Schedule 2002-08-03 Completed [facility]ive [facility] of 00:00:00 [facility] Hep B, Adol or Pedi 2002-08-03 Completed [facility]ive [facility]ity of Dosage 00:00:00 [facility] TDAP 2002-08-03 Completed [facility] 00:00:00 [facility] Heamophilus 2002-08-03 Completed [facility] Influenza B 00:00:00 [facility] DTAP 2002-08-03 Completed [facility] 00:00:00 [facility] HIB 4 Dose Schedule 2002-08-03 Completed [facility]ive [facility] of 00:00:00 [facility] Hep B, Adol or Pedi 2002-08-03 Completed [facility]ive [facility] of Dosage 00:00:00 [facility] TDAP 2002-08-03 Completed [facility] 00:00:00 [facility] Heamophilus 2002-08-03 Completed [facility] Influenza B 00:00:00 [facility] DTAP 2002-08-03 Completed [facility] 00:00:00 [facility] HIB 4 Dose Schedule 2002-08-03 Completed [facility]ive [facility] of 00:00:00 [facility] Hep B, Adol or Pedi 2002-08-03 Completed [facility]ive [facility] of Dosage 00:00:00 [facility] TDAP 2002-08-03 Completed [facility] 00:00:00 [facility] Heamophilus 2002-08-03 Completed [facility] Influenza B 00:00:00 [facility] DTAP 2002-08-03 Completed [facility] 00:00:00 [facility] HIB 4 Dose Schedule 2002-08-03 Completed [facility] of 00:00:00 [facility] Hep B, Adol or Pedi 2002-08-03 Completed [facility]ive [facility] of Dosage 00:00:00 [facility] TDAP 2002-08-03 Completed [facility] 00:00:00 [facility] Heamophilus 2002-08-03 Completed [facility] Influenza B 00:00:00 [facility] DTAP 2002-08-03 Completed [facility] 00:00:00 [facility] HIB 4 Dose Schedule 2002-08-03 Completed [facility] of 00:00:00 [facility] Hep B, Adol or Pedi 2002-08-03 Completed [facility]ive [facility] of Dosage 00:00:00 [facility] TDAP 2002-08-03 Completed [facility] 00:00:00 [facility] Heamophilus 2002-08-03 Completed [facility] Influenza B 00:00:00 [facility] DTAP 2002-08-03 Completed [facility] 00:00:00 [facility] HIB 4 Dose Schedule 2002-08-03 Completed [facility]ive [facility] of 00:00:00 [facility] Hep B, Adol or Pedi 2002-08-03 Completed [facility]ive [facility] of Dosage 00:00:00 [facility] TDAP 2002-08-03 Completed [facility] 00:00:00 [facility] Heamophilus 2002-08-03 Completed [facility] Influenza B 00:00:00 [facility] DTAP 2002-08-03 Completed [facility] 00:00:00 [facility] HIB 4 Dose Schedule 2002-08-03 Completed [facility] 00:00:00 [facility] Hep B, Adol or Pedi 2002-08-03 Completed Unive rsity of Dosage 00:00:00 [facility] TDAP 2002-08-03 Completed [facility] 00:00:00 [facility] Heamophilus 2002-08-03 Completed [facility] Influenza B 00:00:00 [facility] DTAP 2002-03-15 Completed [facility] 00:00:00 [facility] HIB 4 Dose Schedule 2002-03-15 Completed [facility]ive rsity of 00:00:00 [facility] TDAP 2002-03-15 Completed [facility] 00:00:00 [facility] Heamophilus 2002-03-15 Completed [facility] Influenza B 00:00:00 [facility] IPV 2002-03-15 Completed [facility] 00:00:00 [facility] DTAP 2002-03-15 Completed [facility] 00:00:00 [facility] HIB 4 Dose Schedule 2002-03-15 Completed [facility]ive rsity of 00:00:00 [facility] TDAP 2002-03-15 Completed [facility] 00:00:00 [facility] Heamophilus 2002-03-15 Completed [facility] Influenza B 00:00:00 [facility] IPV 2002-03-15 Completed [facility] 00:00:00 [facility] DTAP 2002-03-15 Completed [facility] 00:00:00 [facility] HIB 4 Dose Schedule 2002-03-15 Completed [facility]ive rsity of 00:00:00 [facility] TDAP 2002-03-15 Completed [facility] 00:00:00 [facility] Heamophilus 2002-03-15 Completed [facility] Influenza B 00:00:00 [facility] IPV 2002-03-15 Completed [facility] 00:00:00 [facility] DTAP 2002-03-15 Completed [facility] 00:00:00 [facility] HIB 4 Dose Schedule 2002-03-15 Completed [facility]ive rsity of 00:00:00 [facility] TDAP 2002-03-15 Completed [facility] 00:00:00 [facility] Heamophilus 2002-03-15 Completed [facility] Influenza B 00:00:00 [facility] IPV 2002-03-15 Completed [facility] 00:00:00 [facility] DTAP 2002-03-15 Completed [facility] 00:00:00 [facility] HIB 4 Dose Schedule 2002-03-15 Completed [facility]ive [facility]ity of 00:00:00 [facility] TDAP 2002-03-15 Completed [facility] 00:00:00 [facility] Heamophilus 2002-03-15 Completed [facility] Influenza B 00:00:00 [facility] IPV 2002-03-15 Completed [facility] 00:00:00 [facility] DTAP 2002-03-15 Completed [facility] 00:00:00 [facility] HIB 4 Dose Schedule 2002-03-15 Completed Unive rsity of 00:00:00 [facility] TDAP 2002-03-15 Completed [facility] 00:00:00 [facility] Heamophilus 2002-03-15 Completed [facility] Influenza B 00:00:00 [facility] IPV 2002-03-15 Completed [facility] 00:00:00 [facility] DTAP 2002-03-15 Completed [facility] 00:00:00 [facility] HIB 4 Dose Schedule 2002-03-15 Completed [facility]ive rsity of 00:00:00 [facility] TDAP 2002-03-15 Completed [facility] 00:00:00 [facility] Heamophilus 2002-03-15 Completed [facility] Influenza B 00:00:00 [facility] IPV 2002-03-15 Completed [facility] 00:00:00 [facility] DTAP 2002-03-15 Completed [facility] 00:00:00 [facility] HIB 4 Dose Schedule 2002-03-15 Completed [facility]ive rsity of 00:00:00 [facility] TDAP 2002-03-15 Completed [facility] 00:00:00 [facility] Heamophilus 2002-03-15 Completed [facility] Influenza B 00:00:00 [facility] IPV 2002-03-15 Completed [facility] 00:00:00 [facility] DTAP 2002-03-15 Completed [facility] 00:00:00 [facility] HIB 4 Dose Schedule 2002-03-15 Completed Unive rsity of 00:00:00 [facility] TDAP 2002-03-15 Completed [facility] 00:00:00 [facility] Heamophilus 2002-03-15 Completed [facility] Influenza B 00:00:00 [facility] IPV 2002-03-15 Completed [facility] 00:00:00 [facility] DTAP 2002-03-15 Completed [facility] 00:00:00 [facility] HIB 4 Dose Schedule 2002-03-15 Completed Unive rsity of 00:00:00 [facility] TDAP 2002-03-15 Completed [facility] 00:00:00 [facility] Heamophilus 2002-03-15 Completed [facility] Influenza B 00:00:00 [facility] IPV 2002-03-15 Completed [facility] 00:00:00 [facility] DTAP 2002-03-15 Completed [facility] 00:00:00 [facility] HIB 4 Dose Schedule 2002-03-15 Completed Unive rsity of 00:00:00 [facility] TDAP 2002-03-15 Completed [facility] 00:00:00 [facility] Heamophilus 2002-03-15 Completed [facility] Influenza B 00:00:00 [facility] IPV 2002-03-15 Completed [facility] 00:00:00 [facility] DTAP 2002-03-15 Completed [facility] 00:00:00 [facility] HIB 4 Dose Schedule 2002-03-15 Completed Unive rsity of 00:00:00 [facility] TDAP 2002-03-15 Completed [facility] 00:00:00 [facility] Heamophilus 2002-03-15 Completed [facility] Influenza B 00:00:00 [facility] IPV 2002-03-15 Completed [facility] 00:00:00 [facility] DTAP 2002-03-15 Completed [facility] 00:00:00 [facility] HIB 4 Dose Schedule 2002-03-15 Completed Unive rsity of 00:00:00 [facility] TDAP 2002-03-15 Completed [facility] 00:00:00 [facility] Heamophilus 2002-03-15 Completed [facility] Influenza B 00:00:00 [facility] IPV 2002-03-15 Completed [facility] 00:00:00 [facility] DTAP 2002-03-15 Completed [facility] 00:00:00 [facility] HIB 4 Dose Schedule 2002-03-15 Completed [facility]ive rsity of 00:00:00 [facility] TDAP 2002-03-15 Completed [facility] 00:00:00 [facility] Heamophilus 2002-03-15 Completed [facility] Influenza B 00:00:00 [facility] IPV 2002-03-15 Completed [facility] 00:00:00 [facility] DTAP 2002-03-15 Completed [facility] 00:00:00 [facility] HIB 4 Dose Schedule 2002-03-15 Completed Unive rsity of 00:00:00 [facility] TDAP 2002-03-15 Completed [facility] 00:00:00 [facility] Heamophilus 2002-03-15 Completed [facility] Influenza B 00:00:00 [facility] IPV 2002-03-15 Completed [facility] 00:00:00 [facility] DTAP 2002-03-15 Completed [facility] 00:00:00 [facility] HIB 4 Dose Schedule 2002-03-15 Completed Unive rsity of 00:00:00 [facility] TDAP 2002-03-15 Completed [facility] 00:00:00 [facility] Heamophilus 2002-03-15 Completed [facility] Influenza B 00:00:00 [facility] IPV 2002-03-15 Completed [facility] 00:00:00 [facility] DTAP 2002-03-15 Completed [facility] 00:00:00 [facility] HIB 4 Dose Schedule 2002-03-15 Completed [facility]ive [facility] of 00:00:00 [facility] TDAP 2002-03-15 Completed [facility] 00:00:00 [facility] Heamophilus 2002-03-15 Completed [facility] Influenza B 00:00:00 [facility] IPV 2002-03-15 Completed [facility] 00:00:00 [facility] DTAP 2001 Completed [facility] 00:00:00 [facility] HIB 4 Dose Schedule 2001 Completed Unive [facility] of 00:00:00 [facility] TDAP 2001 Completed [facility] 00:00:00 [facility] Heamophilus 2001 Completed [facility] Influenza B 00:00:00 [facility] IPV 2001 Completed [facility] 00:00:00 [facility] DTAP 2001 Completed [facility] 00:00:00 [facility] HIB 4 Dose Schedule 2001 Completed [facility] of 00:00:00 [facility] TDAP 2001 Completed [facility] 00:00:00 [facility] Heamophilus 2001 Completed [facility] Influenza B 00:00:00 [facility] IPV 2001 Completed [facility] 00:00:00 [facility] DTAP 2001 Completed [facility] 00:00:00 [facility] HIB 4 Dose Schedule 2001 Completed [facility] 00:00:00 [facility] TDAP 2001 Completed [facility] 00:00:00 [facility] Heamophilus 2001 Completed University of Influenza B 00:00:00 [facility] IPV 2001 Completed [facility] 00:00:00 [facility] DTAP 2001 Completed [facility] 00:00:00 [facility] HIB 4 Dose Schedule 2001 Completed [facility] 00:00:00 [facility] TDAP 2001 Completed [facility] 00:00:00 [facility] Heamophilus 2001 Completed [facility] of Influenza B 00:00:00 [facility] IPV 2001 Completed [facility] 00:00:00 [facility] DTAP 2001 Completed [facility] 00:00:00 [facility] HIB 4 Dose Schedule 2001 Completed [facility] 00:00:00 [facility] TDAP 2001 Completed [facility] 00:00:00 [facility] Heamophilus 2001 Completed [facility] of Influenza B 00:00:00 [facility] IPV 2001 Completed [facility] 00:00:00 [facility] DTAP 2001 Completed [facility] 00:00:00 [facility] HIB 4 Dose Schedule 2001 Completed [facility] 00:00:00 [facility] TDAP 2001 Completed [facility] 00:00:00 [facility] Heamophilus 2001 Completed [facility] of Influenza B 00:00:00 [facility] IPV 2001 Completed [facility] 00:00:00 [facility] DTAP 2001 Completed [facility] 00:00:00 [facility] HIB 4 Dose Schedule 2001 Completed [facility] 00:00:00 [facility] TDAP 2001 Completed [facility] 00:00:00 [facility] Heamophilus 2001 Completed [facility] of Influenza B 00:00:00 [facility] IPV 2001 Completed [facility] 00:00:00 [facility] DTAP 2001 Completed [facility] 00:00:00 [facility] HIB 4 Dose Schedule 2001 Completed [facility] 00:00:00 [facility] TDAP 2001 Completed [facility] 00:00:00 [facility] Heamophilus 2001 Completed [facility] of Influenza B 00:00:00 [facility] IPV 2001 Completed [facility] 00:00:00 [facility] DTAP 2001 Completed [facility] 00:00:00 [facility] HIB 4 Dose Schedule 2001 Completed [facility] 00:00:00 [facility] TDAP 2001 Completed [facility] 00:00:00 [facility] Heamophilus 2001 Completed [facility] of Influenza B 00:00:00 [facility] IPV 2001 Completed [facility] 00:00:00 [facility] DTAP 2001 Completed [facility] 00:00:00 [facility] HIB 4 Dose Schedule 2001 Completed [facility] 00:00:00 [facility] TDAP 2001 Completed [facility] 00:00:00 [facility] Heamophilus 2001 Completed [facility] of Influenza B 00:00:00 [facility] IPV 2001 Completed [facility] 00:00:00 [facility] DTAP 2001 Completed [facility] 00:00:00 [facility] HIB 4 Dose Schedule 2001 Completed [facility] 00:00:00 [facility] TDAP 2001 Completed [facility] 00:00:00 [facility] Heamophilus 2001 Completed [facility] of Influenza B 00:00:00 [facility] IPV 2001 Completed [facility] 00:00:00 [facility] DTAP 2001 Completed [facility] 00:00:00 [facility] HIB 4 Dose Schedule 2001 Completed [facility] 00:00:00 [facility] TDAP 2001 Completed [facility] 00:00:00 [facility] Heamophilus 2001 Completed [facility] of Influenza B 00:00:00 [facility] IPV 2001 Completed [facility] 00:00:00 [facility] DTAP 2001 Completed [facility] 00:00:00 [facility] HIB 4 Dose Schedule 2001 Completed [facility] 00:00:00 [facility] TDAP 2001 Completed [facility] 00:00:00 [facility] Heamophilus 2001 Completed [facility] of Influenza B 00:00:00 [facility] IPV 2001 Completed [facility] 00:00:00 [facility] DTAP 2001 Completed [facility] 00:00:00 [facility] HIB 4 Dose Schedule 2001 Completed [facility] 00:00:00 [facility] TDAP 2001 Completed [facility] 00:00:00 [facility] Heamophilus 2001 Completed [facility] of Influenza B 00:00:00 [facility] IPV 2001 Completed [facility] 00:00:00 [facility] DTAP 2001 Completed [facility] 00:00:00 [facility] HIB 4 Dose Schedule 2001 Completed [facility] 00:00:00 [facility] TDAP 2001 Completed [facility] 00:00:00 [facility] Heamophilus 2001 Completed [facility] of Influenza B 00:00:00 [facility] IPV 2001 Completed [facility] 00:00:00 [facility] DTAP 2001 Completed [facility] 00:00:00 [facility] HIB 4 Dose Schedule 2001 Completed [facility] 00:00:00 [facility] TDAP 2001 Completed [facility] 00:00:00 [facility] Heamophilus 2001 Completed [facility] of Influenza B 00:00:00 [facility] IPV 2001 Completed [facility] 00:00:00 [facility] DTAP 2001 Completed [facility] 00:00:00 [facility] HIB 4 Dose Schedule 2001 Completed [facility] 00:00:00 [facility] TDAP 2001 Completed [facility] 00:00:00 [facility] Heamophilus 2001 Completed [facility] of Influenza B 00:00:00 [facility] IPV 2001 Completed [facility] 00:00:00 [facility] Hep B, Adol or Pedi 2001 Completed [facility]ive [facility] Dosage 00:00:00 [facility] Hep B, Adol or Pedi 2001 Completed [facility] Dosage 00:00:00 [facility] Hep B, Adol or Pedi 2001 Completed [facility] Dosage 00:00:00 [facility] Hep B, Adol or Pedi [...] 2001 Completed [facility] Dosage 00:00:00 [facility] Hep B, Adol or Pedi 2001 Completed [facility] Dosage 00:00:00 [facility] Hep B, Adol or Pedi 2001 Completed [facility] of Dosage 00:00:00 [facility] Hep B, Adol or Pedi 2001 Completed [facility] of Dosage 00:00:00 [facility] Hep B, Adol or Pedi 2001 Completed [facility]ive [facility] of Dosage 00:00:00 [facility] Hep B, Adol or Pedi 2001 Completed [facility] of Dosage 00:00:00 [facility] Hep B, Adol or Pedi 2001 Completed [facility] Dosage 00:00:00 [facility] Hep B, Adol or Pedi 2001 Completed [facility] Dosage 00:00:00 [facility] Hep B, Adol or Pedi 2001 Completed [facility]ive [facility] of Dosage 00:00:00 [facility] Hep B, Adol or Pedi 2001 Completed [facility] of Dosage 00:00:00 [facility] Hep B, Adol or Pedi 2001 Completed [facility]ive [facility] of Dosage 00:00:00 [facility] Hep B, Adol or Pedi 2001 Completed [facility]ive [facility] of Dosage 00:00:00 [facility] Rho (d) Immune Unknown Completed [facility] Influenza Virus Unknown Completed Universit y of Vaccine Quad .5 mL [facility] 6+ MO Branch (FLUZONE/FLULAVAL/FL UARIX) TDAP (ADACEL) Unknown Completed [facility] VACCINE [facility] MMR Unknown Completed [facility] Rho (d) Immune Unknown Completed [facility] DTAP Unknown Completed [facility] DTAP Unknown Completed [facility] DTAP Unknown Completed [facility] DTAP Unknown Completed [facility] HIB 4 Dose Schedule Unknown [facility] D[facility] Completed [facility] HIB 4 Dose Schedule Unknown [facility] D[facility] Completed [facility] HEPATITIS A Unknown Completed [facility] Hep B, Adol or Pedi Unknown Completed [facility]ive [facility] Dosage [facility] Hep B, Adol or Pedi Unknown Completed [facility] Dosage [facility] Hep B, Adol or Pedi Unknown Completed [facility] Dosage [facility] HPV Unknown Completed [facility] HPV Unknown Completed [facility] Influenza Virus Unknown Completed [facility] y [facility] Vaccine [facility] Meningococcal Unknown Completed [facility] Varicella Unknown Completed [facility] (varivax)(chicken [place] [facility] pox[facility] MMR Unknown Completed [facility] Varicella Unknown Completed University (varivax)(chicken [place] [facility] pox[facility] Rho (d) Immune Unknown Completed [facility] Globulin [facility] TDAP Unknown Completed [facility] Influenza Virus Unknown Completed Universit y of Vaccine Quad IM, [facility] dical Preserv and ABX Free Bran ch 6 MO-64 YRS (FLUCELVAX) Influenza Virus Unknown Completed Universit y of Vaccine [facility] Influenza Virus Unknown Completed [facility] y of Vaccine [facility] Influenza Virus Unknown Completed [facility] Vaccine [facility] Influenza Virus Unknown Completed [facility] TDAP Unknown Completed [facility] TDAP Unknown Completed [facility] TDAP Unknown Completed [facility] TDAP Unknown Completed [facility] Heamophilus Unknown Completed [facility] Influenza B [facility] Heamophilus Unknown Completed [facility] B [facility] Heamophilus Unknown Completed [facility] Heamophilus Unknown Completed [facility] Influenza B [facility] Influenza Virus Unknown Completed Universit y of Vaccine Quad IM 3+ [facility] Y[facility] Branch Influenza Virus Unknown Completed [facility]it y of Vaccine Quad IM 3+ [facility] [place] Influenza Virus Unknown Completed [facility] Vaccine Nasal [facility] [place] Influenza Virus Unknown Completed [facility] Vacc[facility] Nasal [facility] [place] IPV Unknown Completed [facility] IPV Unknown Completed [facility] IPV Unknown Completed [facility] Influenza Virus Unknown Completed Universit y of Vaccine [facility] TDAP Unknown Completed [facility] Meningococcal Unknown Completed [facility] (groups A, C, Y and Branc h W-135) conjugate vaccine (MCV4P) Rho (d) Immune Unknown Completed [facility] Globulin [facility] Influenza Virus Unknown Completed [facility] Vaccine Quad .5 mL [facility] 6[facility] (FLUZONE/FLULAVAL/FL UARIX) TDAP (ADACEL) Unknown Completed [facility] MMR Unknown Completed [facility] Rho (d) Immune Unknown Completed [facility] DTAP Unknown Completed [facility] DTAP Unknown Completed [facility] DTAP Unknown Completed [facility] DTAP Unknown Completed [facility] HIB 4 Dose Schedule Unknown [facility] D[facility] Unknown Completed Unive [facility] HIB 4 Dose Schedule Unknown Completed Unive [facility] HIB 4 Dose Schedule Unknown Completed Unive [facility] HEPATITIS A Unknown Completed [facility] HEPATITIS A Unknown Completed [facility] Hep B, Adol or Pedi Unknown [facility], Ad[facility] or Pedi [facility] Completed [facility] HPV Unknown Completed [facility] Influenza Virus Unknown Completed [facility] Meningococcal Unknown Completed [facility] Varicella Unknown Completed [facility] (varivax)(chicken [place] [facility] pox) [facility] MMR Unknown Completed [facility] Varicella Unknown Completed [facility] (varivax)(chicken [place] [facility] pox[facility] Rho (d) Immune Unknown Completed [facility] TDAP Unknown Completed [facility] Influenza Virus Unknown Completed Universit y of Vaccine Quad IM, [facility] dical Preserv and ABX Free Bran ch 6 MO-64 YRS (FLUCELVAX) Influenza Virus Unknown Completed [facility]it y of Vaccine [facility] Influenza Virus Unknown Completed [facility] y of Vaccine [facility] Influenza Virus Unknown Completed [facility] of Vaccine [facility] Influenza Virus Unknown Completed [facility] of Vaccine [facility] TDAP Unknown Completed [facility] TDAP Unknown Completed [facility] TDAP Unknown Completed [facility] TDAP Unknown Completed [facility] Heamophilus Unknown Completed [facility] Influenza [facility] Heamophilus Unknown Completed [facility] Influenza B [facility] Heamophilus Unknown Completed [facility] Influenza [facility] Heamophilus Unknown Completed [facility] Influenza B [facility] Influenza Virus Unknown Completed [facility] y of Vaccine Quad IM 3+ [facility] Y[facility] Branch Influenza Virus Unknown Completed [facility] y of Vaccine Quad IM 3+ [facility] Y[facility] Branch Influenza Virus Unknown Completed [facility] [place] Influenza Virus Unknown Completed [facility] Vaccine Nasal [facility] [place] IPV Unknown Completed [facility] IPV Unknown [facility]pleted [facility] IPV Unknown Completed [facility] Influenza Virus Unknown Completed Universit y of Vaccine [facility] TDAP Unknown Completed [facility] Meningococcal Unknown Completed [facility] jose (groups A, C, Y and Branc h W-135) conjugate vaccine (MCV4P) Rho (d) Immune Unknown Completed [facility] Influenza Virus Unknown Completed Universit y of Vaccine Quad .5 mL [facility] 6+ MO Branch (FLUZONE/FLULAVAL/FL UARIX) TDAP (ADACEL) Unknown Completed [facility] MMR Unknown Completed [facility] Rho (d) Immune Unknown Completed [facility] DTAP Unknown Completed [facility] DTAP Unknown Completed [facility] DTAP Unknown Completed [facility] DTAP Unknown Completed [facility] HIB 4 Dose Schedule Unknown Completed Unive [facility] HIB 4 Dose Schedule Unknown Completed Unive [facility] HIB 4 Dose Schedule Unknown [facility] Dose [facility] Unknown Completed [facility]ive [facility] HEPATITIS A Unknown Completed [facility] HEPATITIS A Unknown Completed [facility] Hep B, Adol or Pedi Unknown Completed [facility] Hep B, Adol or Pedi Unknown [facility], Adol or Pedi [facility] Unknown Completed [facility] HPV Unknown Completed [facility] Influenza Virus Unknown Completed [facility] Vaccine [facility] Meningococcal Unknown Completed [facility] Varicella Unknown Completed [facility] (varivax)(chicken [place] [facility] pox) [facility] MMR Unknown Completed [facility] Varicella Unknown Completed [facility] (varivax)(chicken [place] [facility] pox[facility] Rho (d) Immune Unknown Completed [facility] TDAP Unknown Completed [facility] Influenza Virus Unknown Completed Univers[facility] y of Vaccine Quad IM, [facility] dical Preserv and ABX Free Bran ch 6 MO-64 YRS (FLUCELVAX) Influenza Virus Unknown Completed [facility] y of Vaccine [facility] Influenza Virus Unknown Completed [facility] y of Vaccine [facility] Influenza Virus Unknown Completed [facility] of Vaccine [facility] Influenza Virus Unknown Completed [facility] of Vaccine [facility] TDAP Unknown Completed [facility] TDAP Unknown [facility]pleted [facility] TDAP Unknown Completed [facility] TDAP Unknown Completed [facility] Heamophilus Unknown Completed [facility] Influenza B [facility] Heamophilus Unknown Completed [facility] Influenza B [facility] Heamophilus Unknown Completed [facility] Influenza B [facility] Heamophilus Unknown Completed [facility] Influenza B [facility] Influenza Virus Unknown Completed [facility] y of Vaccine Quad IM 3+ [facility] Influenza Virus Unknown Completed [facility] y of Vaccine Quad IM 3+ [facility] Influenza Virus Unknown Completed [facility] y of Vaccine Nasal [facility] Influenza Virus Unknown Completed [facility] y of Vaccine Nasal [facility] IPV Unknown Completed [facility] IPV Unknown Completed [facility] IPV Unknown [facility]pleted [facility] Influenza Virus Unknown Completed [facility] y [facility] Vaccine [facility] TDAP Unknown Completed [facility] Meningococcal Unknown Completed [facility] (groups A, C, Y and Branc h W-135) conjugate vaccine (MCV4P) Rho (d) Immune Unknown Completed [facility] Influenza Virus Unknown Completed [facility]it y of Vaccine Quad .5 mL [facility] 6+ MO Branch (FLUZONE/FLULAVAL/FL UARIX) TDAP (ADACEL) Unknown Completed [facility] MMR Unknown Completed [facility] Rho (d) Immune Unknown Completed [facility] DTAP Unknown Completed [facility] DTAP Unknown Completed [facility] DTAP Unknown Completed [facility] DTAP Unknown Completed [facility] HIB 4 Dose Schedule Unknown [facility] D[facility] Unknown Completed [facility]ive [facility] HIB 4 Dose Schedule Unknown Com[facility] 4 Dose Schedule Unknown Com[facility] HEPAT[facility] A Unknown Completed [facility] HEPATITIS A Unknown Completed [facility] Hep B, Adol or Pedi Unknown Completed Unive rsity of Dosage [facility] Hep B, Adol or Pedi Unknown Completed Unive rsity of Dosage [facility] Hep B, Adol or Pedi Unknown Completed [facility]ive [facility] of Dosage [facility] HPV Unknown Completed [facility] HPV Unknown Completed [facility] Influenza Virus Unknown Completed [facility] y of Vaccine [facility] Meningococcal Unknown Completed [facility] Varicella Unknown Completed [facility] (varivax)(chicken [place] [facility] pox) Branch MMR Unknown Completed [facility] Varicella Unknown Completed University (varivax)(chicken [place] [facility] pox) Branch Rho (d) Immune Unknown Completed [facility] Globulin [facility] TDAP Unknown Completed [facility] Influenza Virus Unknown Completed [facility] y of Vaccine Quad IM, [facility] dical Preserv and ABX Free Bran ch 6 MO-64 YRS (FLUCELVAX) Influenza Virus Unknown Completed [facility] y of Vaccine [facility] Influenza Virus Unknown Completed [facility] y of Vaccine [facility] Influenza Virus Unknown Completed [facility] Vaccine [facility] Influenza Virus Unknown Completed [facility] of Vaccine [facility] TDAP Unknown Completed [facility] TDAP Unknown [facility]pleted [facility] TDAP Unknown Completed [facility] TDAP Unknown Completed [facility] Heamophilus Unknown Completed [facility] Heamophilus Unknown Completed [facility] Heamophilus Unknown Completed [facility] Heamophilus Unknown Completed [facility] Influenza Virus Unknown Completed [facility] y of Vaccine Quad IM 3+ [facility] [place] Influenza Virus Unknown Completed [facility] y of Vaccine Quad IM 3+ [facility] [place] Influenza Virus Unknown Completed [facility] Vacc[facility] Nasal [facility] [place] Influenza Virus Unknown Completed [facility] of Vaccine Nasal [facility] IPV Unknown Completed [facility] IPV Unknown Completed [facility] IPV Unknown Completed [facility] Influenza Virus Unknown Completed [facility]it y [facility] Vaccine [facility] TDAP Unknown Completed [facility] [place] Meningococcal Unknown Completed [facility] jose (groups A, C, Y and Branc h W-135) conjugate vaccine (MCV4P) Rho (d) Immune Unknown Completed [facility] Globulin [facility] Influenza Virus Unknown Completed [facility] Vaccine Quad .5 mL [facility] 6+ MO Branch (FLUZONE/FLULAVAL/FL UARIX) TDAP (ADACEL) Unknown Completed [facility] MMR Unknown Completed [facility] [place] Rho (d) Immune Unknown Completed [facility] DTAP Unknown Completed [facility] [place] DTAP Unknown Completed [facility] [place] DTAP Unknown Completed [facility] [place] DTAP Unknown Completed [facility] [place] HIB 4 Dose Schedule Unknown Com[facility] D[facility] Unknown [facility] Dose Schedule Unknown Com[facility] 4 Dose Schedule Unknown Completed Unive [facility] HEPATITIS A Unknown Completed [facility] [place] HEPATITIS A Unknown Completed [facility] [place] Hep B, Adol or Pedi Unknown Completed Unive rsity Dosage [facility] Hep B, Adol or Pedi Unknown Completed Unive [facility] Hep B, Adol or Pedi Unknown Completed Unive [facility] HPV Unknown Completed [facility] [place] HPV Unknown Completed [facility] [place] Influenza Virus Unknown Completed [facility] Vaccine [facility] Meningococcal Unknown Completed [facility] Varicella Unknown Completed University (varivax)(chicken [place] M edical pox) Branch MMR Unknown Completed [facility] [place] Varicella Unknown Completed University of (varivax)(chicken [place] M edical pox) Branch Rho (d) Immune Unknown Completed [facility] TDAP Unknown Completed [facility] [place] Influenza Virus Unknown Completed [facility] y of Vaccine Quad IM, [place] Me dical Preserv and ABX Free Bran ch 6 MO-64 YRS (FLUCELVAX) Influenza Virus Unknown Completed [facility] Vaccine [facility] Influenza Virus Unknown Completed [facility] Vaccine [facility] Influenza Virus Unknown Completed [facility] Vaccine [facility] Influenza Virus Unknown Completed [facility] Vaccine [facility] TDAP Unknown Completed [facility] [place] TDAP Unknown Completed [facility] [place] TDAP Unknown Completed [facility] [place] TDAP Unknown Completed [facility] [place] Heamophilus Unknown [facility]pleted [facility] B [facility] Heamophilus Unknown Completed [facility] B [facility] Heamophilus Unknown Completed [facility] Influenza B [facility] Heamophilus Unknown Completed [facility] Influenza B [facility] Influenza Virus Unknown Completed Universit y of Vaccine Quad IM 3+ [facility] Influenza Virus Unknown Completed [facility]it y of Vaccine Quad IM 3+ [facility] YRS Branch Influenza Virus Unknown Completed [facility] Vaccine Nasal [facility] [place] Influenza Virus Unknown Completed [facility] y of Vaccine Nasal [facility] IPV Unknown Completed [facility] [place] IPV Unknown Completed [facility] [place] IPV Unknown Completed [facility] [place] Influenza Virus Unknown Completed [facility] Vaccine [facility] TDAP Unknown Completed [facility] [place] Meningococcal Unknown Completed [facility] jose (groups A, C, Y and Branc h W-135) conjugate vaccine (MCV4P) Rho (d) Immune Unknown Completed [facility] Influenza Virus Unknown Completed [facility] y of Vaccine Quad .5 mL [facility] 6+ MO Branch (FLUZONE/FLULAVAL/FL UARIX) TDAP (ADACEL) Unknown Completed [facility] MMR Unknown Completed [facility] [place] Rho (d) Immune Unknown Completed [facility] DTAP Unknown Completed [facility] [place] DTAP Unknown Completed [facility] [place] DTAP Unknown Completed [facility] [place] DTAP Unknown Completed [facility] [place] HIB 4 Dose Schedule Unknown Com[facility] Dose Schedule Unknown Com[facility] HIB 4 Dose Schedule Unknown Completed [facility] HIB 4 Dose Schedule Unknown Completed [facility] HEPATITIS A Unknown Completed [facility] [place] HEPATITIS A Unknown Completed [facility] [place] Hep B, Adol or Pedi Unknown Completed Unive rsity of [facility] Hep B, Adol or Pedi Unknown Completed Unive rsity [facility] Hep B, Adol or Pedi Unknown Completed Unive rsity [facility] HPV Unknown Completed [facility] [place] HPV Unknown Completed [facility] [place] Influenza Virus Unknown Completed [facility] Vaccine [facility] Meningococcal Unknown Completed [facility] Varicella Unknown Completed [facility] of (varivax)(chicken [place] M edical pox) Branch MMR Unknown Completed [facility] [place] Varicella Unknown Completed [facility] of (varivax)(chicken [place] M edical pox) Branch Rho (d) Immune Unknown Completed [facility] TDAP Unknown Completed [facility] [place] Influenza Virus Unknown Completed [facility] Vaccine Quad IM, [place] dical Preserv and ABX Free Bran ch 6 MO-64 YRS (FLUCELVAX) Influenza Virus Unknown Completed [facility] Vaccine [facility] Influenza Virus Unknown Completed [facility] Vaccine [facility] Influenza Virus Unknown Completed [facility] Vaccine [facility] Influenza Virus Unknown Completed [facility] Vaccine [facility] TDAP Unknown Completed [facility] [place] TDAP Unknown Completed [facility] [place] TDAP Unknown Completed [facility] [place] TDAP Unknown Completed [facility] [place] Heamophilus Unknown Completed [facility] Influenza B [facility] Heamophilus Unknown Completed [facility] Influenza B [facility] Heamophilus Unknown Completed [facility] Influenza B [facility] Heamophilus Unknown Completed [facility] Influenza B [facility] Influenza Virus Unknown Completed [facility]it y of Vaccine Quad IM 3+ [facility] Branch Influenza Virus Unknown Completed [facility] y of Vacc[facility] Quad IM 3+ [facility] Influenza Virus Unknown Completed [facility] [place] [facility] [place] Influenza Virus Unknown Completed [facility] Vacc[facility] Nasal [facility] [place] IPV Unknown Completed [facility] [place] IPV Unknown Completed [facility] [place] IPV Unknown Completed [facility] [place] Influenza Virus Unknown Completed [facility] Vaccine [facility] TDAP Unknown Completed [facility] [place] Meningococcal Unknown Completed [facility] jose (groups A, C, Y and Branc h W-135) conjugate vaccine (MCV4P) Rho (d) Immune Unknown Completed [facility] Influenza Virus Unknown Completed [facility] y of Vaccine Quad .5 mL [facility] 6+ MO Branch (FLUZONE/FLULAVAL/FL UARIX) TDAP (ADACEL) Unknown Completed [facility] MMR Unknown Completed [facility] [place] Rho (d) Immune Unknown Completed [facility] DTAP Unknown Completed [facility] [place] DTAP Unknown Completed [facility] [place] DTAP Unknown Completed [facility] [place] DTAP Unknown Completed [facility] [place] HIB 4 Dose Schedule Unknown Completed [facility] 4 Dose Schedule Unknown Completed [facility] HIB 4 Dose Schedule Unknown Completed [facility] HIB 4 Dose Schedule Unknown Completed Unive [facility] HEPATITIS A Unknown Completed [facility] [place] HEPATITIS A Unknown Completed [facility] [place] Hep B, Adol or Pedi Unknown Completed Unive rsity of Dosage [facility] Hep B, Adol or Pedi Unknown Completed Unive rsity of [facility] Hep B, Adol or Pedi Unknown Completed Unive rsity of Dosage [facility] HPV Unknown Completed [facility] [place] HPV Unknown Completed [facility] [place] Influenza Virus Unknown Completed [facility] Vaccine [facility] Meningococcal Unknown Completed [facility] Varicella Unknown Completed [facility] (varivax)(chicken [place] M edical pox) Branch MMR Unknown Completed [facility] [place] Varicella Unknown Completed [facility] (varivax)(chicken [place] M edical pox) Branch Rho (d) Immune Unknown Completed [facility] TDAP Unknown Completed [facility] [place] Influenza Virus Unknown Completed Universit y of Vaccine Quad IM, [facility] dical Preserv and ABX Free Bran ch 6 MO-64 YRS (FLUCELVAX) Influenza Virus Unknown Completed [facility] Vaccine [facility] Influenza Virus Unknown Completed [facility] Vaccine [facility] Influenza Virus Unknown Completed [facility] Vaccine [facility] Influenza Virus Unknown Completed [facility] TDAP Unknown Completed [facility] [place] TDAP Unknown [facility]pleted [facility] [place] TDAP Unknown Completed [facility] [place] TDAP Unknown Completed [facility] [place] Heamophilus Unknown Completed [facility] Heamophilus Unknown Completed [facility] B [facility] Heamophilus Unknown Completed [facility] Influenza B [facility] Heamophilus Unknown Completed [facility] Influenza Virus Unknown Completed [facility]it y of Vaccine Quad IM 3+ [facility] Influenza Virus Unknown Completed [facility] y of Vaccine Quad IM 3+ [facility] Influenza Virus Unknown Completed [facility] y of Vaccine Nasal [facility] Influenza Virus Unknown Completed [facility] y of Vaccine Nasal [facility] IPV Unknown Completed [facility] [place] IPV Unknown Completed [facility] [place] IPV Unknown Completed [facility] [place] Influenza Virus Unknown Completed [facility] Vaccine [facility] TDAP Unknown Completed [facility] [place] Meningococcal Unknown Completed [facility] (groups A, C, Y and Branc h W-135) conjugate vaccine (MCV4P) Rho (d) Immune Unknown Completed [facility] Influenza Virus Unknown Completed [facility] y of Vaccine Quad .5 mL [facility] 6+ [place] Branch (FLUZONE/FLULAVAL/FL UARIX) TDAP (ADACEL) Unknown Completed [facility] MMR Unknown Completed [facility] [place] Rho (d) Immune Unknown Completed [facility] DTAP Unknown Completed [facility] [place] DTAP Unknown Completed [facility] [place] DTAP Unknown Completed [facility] [place] DTAP Unknown Completed [facility] [place] HIB 4 Dose Schedule Unknown Completed Unive [facility] HIB 4 Dose Schedule Unknown Completed Unive [facility] HIB 4 Dose Schedule Unknown Completed [facility] 4 Dose Schedule Unknown Completed [facility] HEPATITIS A Unknown Completed [facility] [place] HEPATITIS A Unknown Completed [facility] [place] Hep B, Adol or Pedi Unknown Completed Unive rsity Dosage [facility] Hep B, Adol or Pedi Unknown Completed [facility]ive [facility] D[facility] Hep B, Adol or Pedi Unknown [facility] Completed [facility] [place] HPV Unknown Completed [facility] [place] Influenza Virus Unknown Completed [facility] y of Vaccine [facility] Meningococcal Unknown Completed [facility] Varicella Unknown Completed University (varivax)(chicken [place] M edical pox) Branch MMR Unknown Completed [facility] [place] Varicella Unknown Completed University (varivax)(chicken [place] M edical pox) Branch Rho (d) Immune Unknown Completed [facility] TDAP Unknown Completed [facility] [place] Influenza Virus Unknown Completed [facility] y of Vaccine Quad IM, [place] Me dical Preserv and ABX Free Bran ch 6 MO-64 YRS (FLUCELVAX) Influenza Virus Unknown Completed [facility] y [facility] Vaccine [facility] Influenza Virus Unknown Completed [facility] Vaccine [facility] Influenza Virus Unknown Completed [facility] Vaccine [facility] Influenza Virus Unknown Completed [facility] Vaccine [facility] TDAP Unknown Completed [facility] [place] TDAP Unknown Completed [facility] [place] TDAP Unknown Completed [facility] [place] TDAP Unknown Completed [facility] [place] Heamophilus Unknown Completed [place] Influenza B [facility] Heamophilus Unknown Completed [facility] Influenza B [facility] Heamophilus Unknown Completed [facility] Influenza B [facility] Heamophilus Unknown Completed [facility] Influenza B [facility] Influenza Virus Unknown Completed [facility] Vaccine Quad IM 3+ [place] [facility] Influenza Virus Unknown Completed [facility] y of Vaccine Quad IM 3+ [facility] [place] Influenza Virus Unknown Completed [facility] y of Vaccine Nasal [facility] Influenza Virus Unknown Completed [facility] y of Vaccine Nasal [facility] IPV Unknown Completed [facility] [place] IPV Unknown Completed [facility] [place] IPV Unknown Completed [facility] [place] Influenza Virus Unknown Completed [facility] y [facility] Vaccine [facility] TDAP Unknown Completed [facility] [place] Meningococcal Unknown Completed [facility] (groups A, C, Y and Branc h W-135) conjugate vaccine (MCV4P) Rho (d) Immune Unknown Completed [facility] Influenza Virus Unknown Completed [facility] Vaccine Quad .5 mL [place] [facility] 6+ [place] Branch (FLUZONE/FLULAVAL/FL UARIX) TDAP (ADACEL) Unknown Completed [facility] MMR Unknown Completed [facility] [place] Rho (d) Immune Unknown Completed [facility] DTAP Unknown Completed [facility] [place] DTAP Unknown Completed [facility] [place] DTAP Unknown Completed [facility] [place] DTAP Unknown Completed [facility] [place] HIB 4 Dose Schedule Unknown Com[facility] 4 Dose Schedule Unknown Com[facility] HIB 4 Dose Schedule Unknown Completed Unive [facility] HIB 4 Dose Schedule Unknown Completed [facility] HEPATITIS A Unknown Completed [facility] [place] HEPATITIS A Unknown Completed [facility] [place] Hep B, Adol or Pedi Unknown Completed Unive rsity [facility] Hep B, Adol or Pedi Unknown Completed Unive rsity [facility] Hep B, Adol or Pedi Unknown Completed Unive rsity [facility] HPV Unknown Completed [facility] [place] HPV Unknown Completed [facility] [place] Influenza Virus Unknown Completed [facility] Vaccine [facility] Meningococcal Unknown Completed [facility] Varicella Unknown Completed [facility] of (varivax)(chicken [place] M edical pox) Branch MMR Unknown Completed [facility] [place] Varicella Unknown Completed [facility] of (varivax)(chicken [place] M edical pox) Branch Rho (d) Immune Unknown Completed [facility] TDAP Unknown Completed [facility] [place] Influenza Virus Unknown Completed [facility]it y of Vaccine Quad IM, [place] Me dical Preserv and ABX Free Bran ch 6 MO-64 YRS (FLUCELVAX) Influenza Virus Unknown Completed [facility] y of Vaccine [facility] Influenza Virus Unknown Completed [facility] Vaccine [facility] Influenza Virus Unknown Completed [facility] Vaccine [facility] Influenza Virus Unknown Completed [facility] y of Vaccine [facility] TDAP Unknown Completed [facility] [place] TDAP Unknown Completed [facility] [place] TDAP Unknown Completed [facility] [place] TDAP Unknown Completed [facility] [place] Heamophilus Unknown Completed [facility] Influenza B [facility] Heamophilus Unknown Completed [facility] Influenza B [facility] Heamophilus Unknown Completed [facility] Influenza B [facility] Heamophilus Unknown Completed [facility] Influenza B [facility] Influenza Virus Unknown Completed [facility]it y of Vaccine Quad IM 3+ [facility] Y[facility] Branch Influenza Virus Unknown Completed [facility] y of Vaccine Quad IM 3+ [facility] Influenza Virus Unknown Completed [facility] [place] [facility] [place] Influenza Virus Unknown Completed [facility] y of Vaccine Nasal [facility] IPV Unknown Completed [facility] [place] IPV Unknown Completed [facility] IPV Unknown Completed [facility] [place] Influenza Virus Unknown Completed [facility] y [facility] Vaccine [facility] TDAP Unknown Completed [facility] [place] Meningococcal Unknown Completed [facility] (groups A, C, Y and Branc h W-135) conjugate vaccine (MCV4P) Rho (d) Immune Unknown Completed [facility] Influenza Virus Unknown Completed Universit y of Vaccine Quad .5 mL [facility] 6+ [place] Branch (FLUZONE/FLULAVAL/FL UARIX) TDAP (ADACEL) Unknown Completed [facility] MMR Unknown Completed [facility] [place] Rho (d) Immune Unknown Completed [facility] DTAP Unknown Completed [facility] [place] DTAP Unknown Completed [facility] DTAP Unknown Completed [facility] DTAP Unknown Completed [facility] HIB 4 Dose Schedule Unknown Com[facility] 4 Dose Schedule Unknown Com[facility] HIB 4 Dose Schedule Unknown Completed [facility] HIB 4 Dose Schedule Unknown Completed [facility] HEPATITIS A Unknown Completed [facility] HEPATITIS A Unknown Completed [facility] Hep B, Adol or Pedi Unknown Completed Unive rsity of [facility] Hep B, Adol or Pedi Unknown Completed Unive rs[facility] Hep B, Adol or Pedi Unknown Completed Unive [facility] HPV Unknown Completed [facility] [place] HPV Unknown Completed [facility] Influenza Virus Unknown Completed Universit y of Vaccine [facility] Meningococcal Unknown Completed University [facility] Varicella Unknown Completed University (varivax)(chicken [place] M edical pox) Branch MMR Unknown Completed [facility] Varicella Unknown Completed [facility] (varivax)(chicken [place] M edical pox) Branch Rho (d) Immune Unknown Completed [facility] Globulin [facility] TDAP Unknown Completed [facility] [place] Influenza Virus Unknown Completed [facility]it y of Vaccine Quad IM, [place] Me dical Preserv and ABX Free Bran ch 6 MO-64 YRS (FLUCELVAX) Influenza Virus Unknown Completed [facility] y of Vaccine [facility] Influenza Virus Unknown Completed [facility] y [facility] Vaccine [facility] Influenza Virus Unknown Completed [facility] y [facility] Vaccine [facility] Influenza Virus Unknown Completed [facility] TDAP Unknown Completed [facility] [place] TDAP Unknown Completed [facility] [place] TDAP Unknown Completed [facility] [place] TDAP Unknown Completed [facility] Heamophilus Unknown Completed [facility] Influenza B [facility] Heamophilus Unknown Completed [facility] Influenza B [facility] Heamophilus Unknown Completed [facility] Influenza [facility] Heamophilus Unknown Completed [facility] Influenza B [facility] Influenza Virus Unknown Completed Universit y of Vaccine Quad IM 3+ [facility] Influenza Virus Unknown Completed Universit y of Vaccine Quad IM 3+ [facility] Influenza Virus Unknown Completed Universit y of Vaccine Nasal [place] [facility] [place] Influenza Virus Unknown Completed Universit y of Vaccine Nasal [facility] [place] IPV Unknown Completed [facility] IPV Unknown Completed [facility] IPV Unknown Completed [facility] Influenza Virus Unknown Completed Universit y of Vaccine [facility] TDAP Unknown Completed [facility] Meningococcal Unknown Completed [facility] (groups A, C, Y and Branc h W-135) conjugate vaccine (MCV4P) Vital Signs Vital Name Observation Time Observation Value Comments Source Systolic blood 2023-10-11 00:55:00 116 mm[Hg] Univer sity of pressure [facility] Diastolic blood 2023-10-11 00:55:00 79 mm[Hg] Unive rsity of pressure [facility] Heart rate 2023-10-11 00:55:00 95 /min [facility] Respiratory rate 2023-10-11 00:55:00 16 /min [facility] Oxygen saturation in 2023-10-11 00:55:00 99 /min University of Arterial blood by [place] PUD jose Pulse oximetry Branch Body temperature 2023-10-11 00:25:00 36.33 Melania [facility] Body height 2023-10-10 19:58:00 154.9 cm [facility] Body weight 2023-10-10 19:58:00 55.792 kg [facility] BMI 2023-10-10 19:58:00 23.24 kg/m2 [facility] Systolic blood 2023-10-08 14:20:00 97 mm[Hg] Univer sity of pressure [facility] Diastolic blood 2023-10-08 14:20:00 61 mm[Hg] Unive rsity of pressure [facility] Heart rate 2023-10-08 14:20:00 97 /min [facility] Body temperature 2023-10-08 14:20:00 37 Melania [facility] [place] [facility] Respiratory rate 2023-10-08 14:20:00 16 /min Univ [facility] [place] [facility] Body height 2023-10-08 14:20:00 154.9 cm [facility] Body weight 2023-10-08 14:20:00 56.427 kg [facility] BMI 2023-10-08 14:20:00 23.51 kg/m2 [facility] Oxygen saturation in 2023-10-08 14:20:00 97 /min University of Arterial blood by [facility] Pulse oximetry Branch Systolic blood 2023 06:04:00 103 mm[Hg] Univer sity of pressure [facility] Diastolic blood 2023 06:04:00 65 mm[Hg] Unive rsity of [facility] Heart rate 2023 06:04:00 95 /min [facility] Respiratory rate 2023 06:04:00 16 /min Univ [facility] [place] [facility] Oxygen saturation in 2023 06:04:00 99 /min University of Arterial blood by [facility] Pulse oximetry Branch Body temperature 2023 03:34:00 36.67 Melania Univ ersity of [facility] Body weight 2023 03:34:00 58.968 kg Universi ty of [facility] BMI 2023 03:34:00 23.78 kg/m2 Universi ty of [facility] Systolic blood 2023-08-15 13:02:00 105 mm[Hg] Univer sity of pressure [facility] Diastolic blood 2023-08-15 13:02:00 71 mm[Hg] Unive rsity of pressure [facility] Heart rate 2023-08-15 13:02:00 76 /min Universi ty of [facility] Respiratory rate 2023-08-15 13:02:00 18 /min Univ ersity of [facility] Body height 2023-08-15 13:02:00 157.5 cm [facility] [place] [facility] [place] Body weight 2023-08-15 13:02:00 57.607 kg [facility] BMI 2023-08-15 13:02:00 23.23 kg/m2 [facility] Systolic blood 2023-05-14 20:46:00 108 mm[Hg] Univer sity of pressure [facility] Diastolic blood 2023-05-14 20:46:00 75 mm[Hg] Unive rsity of pressure [facility] Heart rate 2023-05-14 20:46:00 102 /min Universi ty of [facility] Body temperature 2023-05-14 20:46:00 36.78 Melania Univ ersity of [facility] Respiratory rate 2023-05-14 20:46:00 18 /min Univ [facility] Body height 2023-05-14 20:46:00 157.5 cm [facility] Body weight 2023-05-14 20:46:00 60.328 kg [facility] [place] [facility] BMI 2023-05-14 20:46:00 24.33 kg/m2 Universi ty of [facility] Systolic blood 2023-02-18 20:19:00 111 mm[Hg] Univer sity of pressure [facility] Diastolic blood 2023-02-18 20:19:00 76 mm[Hg] Unive rsity of [facility] Heart rate 2023-02-18 20:19:00 112 /min [facility] Body temperature 2023-02-18 20:19:00 36.78 Melania [facility] Respiratory rate 2023-02-18 20:19:00 18 /min Univ [facility] Body height 2023-02-18 20:19:00 157.5 cm [facility] Body weight 2023-02-18 20:19:00 60.147 kg [facility] BMI 2023-02-18 20:19:00 24.25 kg/m2 [facility] Systolic blood 2022-11-18 20:53:00 100 mm[Hg] Univer sity of [facility] Diastolic blood 2022-11-18 20:53:00 70 mm[Hg] Unive rsity of [facility] Heart rate 2022-11-18 20:53:00 97 /min [facility] Body temperature 2022-11-18 20:53:00 37.06 Melania [facility] Respiratory rate 2022-11-18 20:53:00 18 /min Univ [facility] [place] [facility] Body height 2022-11-18 20:53:00 157.5 cm [facility] Body weight 2022-11-18 20:53:00 59.421 kg [facility] BMI 2022-11-18 20:53:00 23.96 kg/m2 [facility] Systolic blood 2022-08-26 20:11:00 113 mm[Hg] Univer [facility]ity of [facility] Diastolic blood 2022-08-26 20:11:00 80 mm[Hg] Unive rsity of pressure [facility] Heart rate 2022-08-26 20:11:00 91 /min [facility] Body temperature 2022-08-26 20:11:00 36.72 Melania [facility] Respiratory rate 2022-08-26 20:11:00 16 /min Univ [facility] Body height 2022-08-26 20:11:00 157.5 cm [facility] Body weight 2022-08-26 20:11:00 57.879 kg Universi [facility] BMI 2022-08-26 20:11:00 23.34 kg[facility] Systolic blood 2022-07-03 20:26:00 108 mm[Hg] Univer sity of pressure [facility] Diastolic blood 2022-07-03 20:26:00 76 mm[facility]Hg] [facility] 2022-07-03 20:26:00 103 /min [facility] Body temperature 2022-07-03 20:25:00 36.89 Melania [facility] Respiratory rate 2022-07-03 20:25:00 16 /min [facility] Body height 2022-07-03 20:25:00 157.5 cm [facility] Body weight 2022-07-03 20:25:00 58.968 kg [facility] BMI 2022-07-03 20:25:00 23.78 kg/m2 [facility] Oxygen saturation in 2022-07-03 20:25:00 98 /min [facility] Arterial blood by [facility] Pulse oximetry Branch Height 2020-12-01 10:53:00 154.94 CM Weight 2020-12-01 10:53:00 50.8 KG Procedures Procedure Date / Time Performing Clinician Source Performed FL TIME OR 2023-10-11 00:20:00 Justyn, [facility] [place] (NON-REPORTABLE) [facility] DAY SURGERY - VICTORY 2023-10-10 06:01:00 Doctor Unassigned, [facility] LAKES [place] [facility] US RETROPERITONEAL LIMITED 2023 05:54:30 King Yosvany Keller [facility] POCT TEST 2023 04:05:00 Ya Keyes [facility] COMP. METABOLIC PANEL 2023 04:02:00 Ya Keyes [facility] ([id number]) [facility] CBC WITH DIFF 2023 04:02:00 Ya Keyes [facility] URINALYSIS 2023 04:02:00 Ya Keyes y of [facility] CONSENT/REFUSAL FOR 2023 03:26:20 Doctor Unassigned, [facility] DIAGNOSIS AND TREATMENT [place] [facility] REFERRAL- REQUEST/RESPONSE 2023-06-03 05:01:00 Doctor Unassgogo , [facility] [place] [facility] PATIENT FINANCIAL 2023-02-18 19:57:32 Doctor Unassigned, [facility] POLICY [place] [facility] ASSIGNMENT OF BENEFITS 2022-11-18 20:21:23 Doctor Unassigned, [facility] [place] [facility] Encounters Start End Encounter Admission Attending Care Care Encounter Source Date/Time Date/Time Type Type Clinicians Facility Department ID 2021-09-11 Emergency [facility] [id number] Univers 07:20:36 ity of [facility] 2021-09-11 Emergency [facility] [id number] Univers 07:18:00 ity of [facility] 2021-09-11 Emergency [facility] [id number] Univers 05:25:53 [facility] 2021-09-10 Emergency [facility] [id number] Univers 12:34:55 ity of [facility] 2021-09-10 Outpatient X [facility] [id number] Univers 00:32:19 ity of [facility] 2021-09-10 Emergency [facility] [id number] Univers 00:25:14 ity of [facility] 2021-09-09 Emergency [facility] [id number] Univers 03:49:13 [facility] 2021-09-07 Emergency [facility] [id number] Univers 12:08:59 ity of [facility] 2021-09-06 Outpatient P [facility] JONI [id number] Univers 14:24:34 [facility] 2021-09-06 Outpatient P [facility] JONI [id number] Univers 14:21:12 [facility] 2021-09-06 Outpatient P [facility] JONI [id number] Univers 13:39:14 ity of [facility] 2021-09-06 Outpatient P [facility] JONI [id number] Univers 13:35:43 ity of [facility] 2023-10-10 2023-10-10 [facility] [id number] Univers 13:39:00 19:08:00 BILAL ity of [facility] 2023-10-10 2023-10-10 [facility] 1.2.840.114 [id number] Univers 13:39:00 19:08:00 Encounter Bilne HEALTH 350.1.13.10 ity of [place] [facility] [id number] [address] ([facility] 2023-10-10 2023-10-10 Orders Doctor JUSTIN 1.2.840.114 [id number] Univers 00:00:00 00:00:00 Only Unassigned, [place] 350.1.13.10 ity of [place] [facility] 4.2.7.2.686 Tk as [id number] [address] 2023-10-09 2023-10-09 Outpatient SFA [facility] [id number] Dirk 09:26:26 09:26:26 1130 F Bjorn 2023-10-08 2023-10-08 [facility] [id number] Univers 08:30:00 15:45:08 AILIN ity [facility] 2023-10-08 2023-10-08 Office [facility] 1.2.840.114 [id number] Univers 08:30:00 15:45:08 Visit [facility] 350.1.13.10 it y [place] [id number] [address] OFFICE BUILDING 2023-10-05 2023 Emergency X DAVY CHOI [facility] ERT [id number] Univers 21:35:00 01:06:00 DAVY CHOI ity of [facility] 2023-10-05 2023 Emergency Asan Elias, Ya TRAUMA 1.2.8 40.114 [id number] Univers 21:35:00 01:06:00 Davy Choi [place] 350.1.13.10 [place] [id number] [address] 2023-10-04 2023-10-04 Outpatient SFA SFA [id number] Dirk 14:17:02 14:17:02 1125 [address] Roebling 2023-09-17 2023-09-17 Outpatient SFA SFA [id number] Dirk 16:48:16 16:48:16 1108 F Roebling 2023-09-11 2023-09-11 Outpatient SFA SFA [id number] Dirk 09:11:57 09:11:57 1102 F Roebling 2023-08-26 2023-08-26 Outpatient SFA SFA [id number] Dirk 15:44:47 15:44:47 1017 F Roebling 2023-08-15 2023-08-15 Nurse Nurse, [facility] 1.2.840.114 [id number] [facility] 08:00:00 08:15:00 Visit Zarina Kennedy 350.1.13.10 ity [facility] 4.2.7.2.686 Cathy rivera [facility] [id number] [place] [address] 2023-08-15 2023-08-15 Outpatient R ZARINA KENNEDY [facility] [id number] Univers 08:00:00 08:00:00 ity [facility] 2023-08-14 2023-08-14 Outpatient R XIN [facility] [id number] [facility] 08:15:00 08:15:00 [facility] 2023-07-31 2023-07-31 Outpatient Stevo MAY [facility] [id number] Univers 09:30:00 09:30:00 IDA ity [facility] 2023-06-26 2023-06-26 Outpatient SFA SFA [id number] Dirk 14:44:34 14:44:34 0817 [facility] 2023-06-11 2023-06-11 Outpatient SFA SFA [id number] Dirk 10:54:47 10:54:47 0802 [facility] 2023-06-03 2023-06-03 Orders Doctor ANDERSON 1.2.840.114 [id number] Univers 00:00:00 00:00:00 Only Unassigned, [place] 350.1.13.[address] [facility] 4.2.7.2.686 Tk as [id number] [address] 2023-05-21 2023-05-21 Outpatient [facility] [id number] Dirk 09:11:27 09:11:27 0712 Bjorn 2023-05-14 2023-05-14 Nurse Nurse, [facility] 1.2.840.114 [id number] Univers 15:30:00 15:45:47 Visit Norma Partida 350.1.13.10 ity [facility] [place] [id number] [place] d[place] NAL [address] [place] [address] 2023-05-14 2023-05-14 Outpatient R LINDA [facility] [id number] Univers 15:30:00 15:30:00 [facility] 2023-04-30 2023-04-30 Outpatient [facility] [id number] Dirk 14:56:01 14:56:01 0621 [facility] 2023-04-21 2023-04-21 Outpatient R HINA SANON [facility] [id number] Univers 16:15:00 16:15:00 HINA SANON [facility] 2023-03-21 2023-03-21 Outpatient R NICOLE [facility] [id number] Univers 14:00:00 14:00:00 WENDY [facility] 2023-03-18 2023-03-18 Outpatient [facility] [id number] Dirk 15:33:41 15:33:41 0509 [facility] 2023-02-28 2023-02-28 Telephone Brent Zarina [facility] 1.2.840.114 [id number] Univers 00:00:00 00:00:00 Marcus GRADY 350.1.13.10 i ty [facility] [place].2.[place] [id number] [place] d[place] NAL [address] [place] [address] 2023-02-18 2023-02-18 Nurse Nurse, [facility] 1.2.840.114 [id number] Univers 15:30:00 15:30:00 Visit VanaphWendy quezada [place] 350.1.13.10 ity of [place] [id number] [place] dic[address] 2023-02-18 2023-02-18 Outpatient R JEDSARWATDAMIEN [facility] [id number] Univers 15:30:00 15:15:55 EWNDY ity [facility] 2023-02-18 2023-02-18 Orders Doctor JUSTIN 1.2.840.114 [id number] Univers 00:00:00 00:00:00 Only Unassigned, [place] 350.1.13.10 ity of [facility] 4.2.7.2.686 Tk as [id number] [address] 2023-02-12 2023-02-12 Outpatient [facility] [id number] Dirk 15:57:07 15:57:07 0405 [facility] 2022-12-31 2022-12-31 Outpatient R ZARINA KENNEDY [facility] [id number] Univers 14:30:00 14:30:00 ity [facility] 2022-12-28 2022-12-28 Telephone Brent [facility] 1.2.840.114 [id number] Univers 00:00:00 00:00:00 Cam [place] 350.1.13.10 i ty [place].2.[place] [id number] [place] dic[address] 2022-12-23 2022-12-23 Telephone Brent [facility] 1.2.840.114 [id number] Univers 00:00:00 00:00:00 Cam [place] 350.1.13.10 i ty of [place] 4.2.7.2.[place] [id number] [place] dic[address] 2022-12-20 2022-12-20 Outpatient [facility] [id number] Dirk 15:45:35 15:45:35 0210 F Bjorn 2022-12-05 2022-12-05 Outpatient R BRENT ZARINA [facility] [id number] Univers 08:00:00 08:00:00 ity [facility] 2022-11-28 2022-11-28 [facility]phone [facility] 1.2.840.114 [id number] Univers 00:00:00 00:00:00 Wendy GRADY 350.1.13.10 i ty of [place] [id number] [facility] 134 [facility] 2022-11-21 2022-11-21 Outpatient [facility] [id number] Dirk 08:56:00 08:56:00 0112 F Roebling 2022-11-18 2022-11-18 [facility] [id number] Univers 14:30:00 15:20:30 WENDY willardbandar [facility] 2022-11-18 2022-11-18 Office [facility] 1.2.153.235 [id number] Univers 14:30:00 15:20:30 Visit Wendy GRADY 350.1.13.10 i ty of [place] 4.[place].7.2.[place] [id number] [address] 2022-11-18 2022-11-18 Orders Doctor JUSTIN 1.2.840.114 [id number] Univers 00:00:00 00:00:00 Only Unassigned, [place] 350.1.13.10 ity of [place] [facility] 4.2.7.2.686 Tk as [id number] [facility] [address] 2022-10-29 2022-10-29 Outpatient R LAWRENCE [facility] [id number] Univers 09:00:00 09:00:00 GUTIERREZ ity [facility] 2022-10-28 2022-10-28 Telephone [employer], UNIVERSIT 1.2.840.114 [id number] Univers 00:00:00 00:00:00 [employer] 350.1.13.10 i ty of [facility] 4.2.7.2.[place] [id number] [facility] [address] 2022-10-23 2022-10-23 Telephone Lawrence, [facility]ERS[facility] 1.2.840.114 [id number] Univers 00:00:00 00:00:00 [employer] 350.1.13.10 i ty of [place] [id number] [facility] [address] 2022-08-26 2022-08-26 Outpatient R NICOLE [facility] [id number] Univers 14:30:00 15:11:07 WENDY ity [facility] 2022-08-26 2022-08-26 Nurse Nurse, [facility] 1.2.840.114 [id number] Univers 14:30:00 15:11:07 Visit Wendy Rivera 350.1.13.10 ity [facility] [place].2.7.2.[place] [id number] [address] 2022-07-03 2022-07-03 Organ Tuner [employer] [facility] UNIVERS[facility] 1.2.840.114 [id number] [facility] 17:00:00 17:15:00 Visit Lawrence Gutierrez [facility] 350.1.13.10 ity of [place] [id number] [facility] [address] 2022-07-03 2022-07-03 Outpatient R LAWRENCE [facility] [id number] Univers 16:00:00 16:06:31 [facility] 2022-07-03 2022-07-03 Office Isha Marie [facility] 1.2.840.114 [id number] Univers 16:00:00 16:06:31 Visit Gutierrez Bravo [facility] 350.1.13.10 ity of [place] [id number] [facility] [address] 2022-07-03 2022-07-03 Outpatient R LAWRENCE [facility] [id number] Univers 16:00:00 16:06:31 GUTIERREZ [facility] 2022-07-03 2022-07-03 Outpatient R LAWRENCE [facility] [id number] Univers 16:00:00 16:06:31 [facility] 2022-06-19 2022-06-19 Telephone [place], [facility] 1.2.840.114 [id number] Univers 00:00:00 00:00:00 Nephrology Y HEALTH 350.1.13.10 ity of [place] [id number] [facility] [address] 2022-06-12 2022-06-12 Telephone [place], UN[facility]ERS[facility] 1.2.840.114 [id number] Univers 00:00:00 00:00:00 Nephrology Y HEALTH 350.1.13.10 ity [place] [id number] [facility] [address] 2022-06-03 2022-06-03 Outpatient Stevo RIVERA [facility] [id number] Univers 14:00:00 14:15:27 [facility] 2022-06-03 2022-06-03 Nurse Nurse, [facility] 1.2.840.114 [id number] Univers 14:00:00 14:15:27 Visit Wendy Rivera 350.1.13.10 ity [facility] 4.2.7.2.686 [facility] [id number] [address] 2022-04-04 2022-04-04 Outpatient Stevo RIVERA [facility] [id number] Univers 15:00:00 15:00:00 WENDY [facility] 2022-04-03 2022-04-03 Outpatient Stevo RIVERA [facility] [id number] Univers 13:10:05 23:59:00 [facility] 2022-04-03 2022-04-03 [facility] Jedmary [facility] 1.2.840.114 [id number] Univers 13:00:00 23:59:00 Encounter Wendy GRADY 350.1.13.10 ity [facility] [place]2.7.2.[place] [employer] [id number] [facility] [address] 2022-04-03 2022-04-03 Orders Doctor ANDERSON 1.2.840.114 [id number] Univers 00:00:00 00:00:00 Only Unassigned, [place] 350.1.13.10 ity of [place] [facility] 4.2.7.2.686 Tk as [id number] [address] 2022-04-03 2022-04-03 Case [facility] 1.2.603.877 [id number] Univers 00:00:00 00:00:00 Management Wendy GRADY 350.1.13.10 ity of [place] 4.[place].2.[place] [id number] [place] [address] 2022-03-27 2022-03-27 Outpatient R [facility]ENT [facility] [id number] Univers 09:30:00 09:30:00 ity [facility] 2022-03-27 2022-03-27 Outpatient R BRENT [facility] [id number] Univers 09:30:00 09:30:00 ity [facility] 2022-03-27 2022-03-27 Outpatient R BRENT [facility] [id number] Univers 09:30:00 09:30:00 ity [facility] 2022-03-07 2022-03-07 Outpatient R BRENT [facility] [id number] Univers 14:00:00 14:18:10 ity [facility] 2022-03-07 2022-03-07 Nurse Nurse, [facility] 1.2.840.114 [id number] Univers 14:00:00 14:18:10 Visit Zarina Kennedy 350.1.13.10 ity of [place].2.[place] [id number] [place] [address] 2022-02-28 2022-02-28 Telephone Nicole [facility] 1.2.840.114 [id number] Univers 00:00:00 00:00:00 Wendy GRADY 350.1.13.10 i ty of [place].2.[place] [id number] [place] d[place] NAL [address] [place] [address] 2022-02-26 2022-02-26 Outpatient R LINDA [facility] [id number] Univers 15:00:00 16:12:25 NORMA ity [facility] 2022-02-26 2022-02-26 Office Wendy Rivera [facility] 1.2.840.11 [id number] Univers 15:00:00 16:12:25 Visit Norma Partida 350.1.13.10 ity [place] 4[place].2.[place] [id number] [place] [address] 2021-12-13 2021-12-13 Outpatient R BRENT ZARINA [facility] [id number] Univers 10:30:00 10:42:25 ity [facility] 2021-12-13 2021-12-13 Nurse Nurse, [facility] 1.2.840.114 [id number] Univers 10:30:00 10:42:25 Visit Zarina Kennedy Marcus GRADY 350.1.13.10 ity [facility] [place]2.[place] [phone] [place] dical NAL [address] [place] [address] 2021-12-13 2021-12-13 Outpatient R [facility] [id number] Univers 10:30:00 10:30:00 ity [facility] 2021-12-13 2021-12-13 Orders Doctor JUSTIN 1.2.840.114 [id number] Univers 00:00:00 00:00:00 Only Unassigned, [place] 350.1.13.10 ity of [place] [facility] 4.2.7.2.686 Tk as [phone] [address] 2021-12-07 2021-12-07 Outpatient R STAN TY [facility] [id number] Univers 13:00:00 13:00:00 STAN TY bandar [facility] 2021-11-28 2021-11-28 Emergency X Pedro ALVARADO [facility] ERT [id number] Univers 12:55:00 16:24:00 ity [facility] 2021-11-28 2021-11-28 Emergency Pedro Alvarado [facility] 1.2.840.114 [id number] Univers 12:55:00 16:24:00 Cinthia GRADY 350.1.13.10 i ty of [place] [phone] [facility] [address] 2021-11-28 2021-11-28 Orders Doctor JUSTIN 1.2.840.114 [id number] Univers 00:00:00 00:00:00 Only Unassigned, [place] 350.1.13.10 ity of [place] [facility] 4.2.7.2.686 Tk as [phone] [facility] [address] 2021-10-22 2021-10-22 Outpatient R NICOLE [facility] [id number] Univers 09:00:00 09:29:56 WENDY durham [facility] 2021-10-22 2021-10-22 [facility] 1.2.268.832 [id number] Univers 08:40:07 09:29:56 Visit Wendy GRADY 350.1.13.10 i ty of [place] [phone] [place] dical NAL [address] [place] [address] 2021-09-27 2021-09-27 Outpatient R NICOLE [facility] [id number] Univers 10:30:00 10:53:39 WENDY durham [facility] 2021-09-27 2021-09-27 Routine Zarina Kennedy [facility] 1.2.840.114 [id number] Univers 10:24:13 10:53:39 Wendy Rivera 350.1.13.10 ity of Visit [place] [phone] [place] dical NAL [address] [place] [address] 2021-09-12 2021-09-12 Telephone Nicole [facility] 1.2.840.114 [id number] Univers 00:00:00 00:00:00 Wendy GRADY 350.1.13.10 i ty of [place] [phone] Ky dical NAL [address] [place] [address] 2021-09-10 2021-09-11 Inpatient P ZARINA KENNEDY [facility] ERT [id number] Univers 04:05:00 16:00:00 ity of [facility] 2021-09-10 2021-09-11 Hospital Zarina Kennedy [facility] 1.2.840.114 [id number] Univers 04:05:00 16:00:00 Encounter Marcus GRADY 350.1.13.10 [facility] [phone] [facility] [address] 2021-09-10 2021-09-10 Anesthesia Jordan Gaspar [facility] 1.2.840.11 [id number] Univers 08:35:00 16:19:00 Event Brando Lee 350.1.13.10 [facility].2.7.2.[facility] [phone] [facility] [address] 2021-09-07 2021-09-07 Laboratory Only, Adc Test [facility] 1.2.840. 114 [id number] Univers 10:06:22 10:21:22 Only Zarina KennedyRANJITH 350.1.13.10 it[facility] 4.2.7.2.686 [facility] [phone] [facility] [address] 2021-09-07 2021-09-07 Outpatient R ZARINA KENNEDY [facility] [id number] Univers 10:15:00 10:15:00 ity of [facility] 2021-09-06 2021-09-06 Routine Zarina Kennedy [facility] 1.2.377.914 [id number] Univers 11:00:13 11:58:29 Cam MIGUEL A 350.1.13.10 ity of Visit [place] 4.2.7.2.686 [facility] PROFESSIO [phone] Ky dical [facility] [address] [facility] 2021-09-06 2021-09-06 Outpatient R ZARINA KENNEDY [facility] [id number] Univers 11:00:00 11:58:29 ity of [facility] 2021-09-04 2021-09-04 Hospital Zarina Kennedy [facility] 1.2.840.114 [id number] Univers 13:23:00 15:35:00 Encounter Norma Partida 350.1.13.10 ity of [place] 4.2.7.2.686 [facility] [phone] [facility] [address] 2021-09-04 2021-09-04 Outpatient P ZARINA KENNEDY [facility] ERT [id number] Univers 13:23:00 15:35:00 ity [facility] 2021-09-04 2021-09-04 Outpatient R NICOLE [facility] [id number] Univers 11:00:00 12:14:54 WENDY itbandar [facility] 2021-09-04 2021-09-04 [facility] 1.2.840.114 [id number] Univers 10:42:04 12:14:54 Wendy Mora 350.1.13.10 i ty of Visit [facility] 4.2.7.2.686 [facility] [phone] [facility] [address] 2021-09-04 2021-09-04 Telephone Zarina Kennedy [facility] 1.2.840.114 [id number] Univers 00:00:00 00:00:00 Marcus Grady 350.1.13.10 i ty of [place] [phone] [place] dical nal [address] [place] [address] 2021-09-03 2021-09-03 Outpatient R NICOLE [facility] [id number] Univers 16:15:00 16:15:00 WEDNY durham [facility] 2021-08-27 2021-08-27 Outpatient R NICOLE [facility] [id number] Univers 16:30:00 16:30:00 WENDY durham [facility] 2021-08-27 2021-08-27 Routine Zarina Kennedy [facility] 1.2.840.114 [id number] Univers 15:51:06 16:29:15 Wendy Rivera 350.1.13.10 ity of [place].2.[place] [phone] [place] dical nal [address] [place] [address] 2021-08-25 2021-08-25 [facility] Kary Oseguera [facility] 1.2.840.114 [id number] Univers 22:15:00 23:30:00 Encounter [place] 350.1.13.10 ity of [place] 4.2.7.2.686 [facility] [phone] [address] 2021-08-25 2021-08-25 Emergency Kary Oseguera [facility] 1.2.840.114 [id number] Univers 09:36:00 18:31:00 [place] 350.1.13.10 i ty of [place] 4.2.7.2.686 [facility] [phone] [address] 2021-08-24 2021-08-24 Telephone Zarina Kennedy [facility] 1.2.840.114 [id number] Univers 00:00:00 00:00:00 Cam Callaway 350.1.13.10 i ty of [place].2.[place] [phone] [place] dical nal [address] [place] [address] 2021-08-24 2021-08-24 Telephone Niocle [facility] 1.2.840.114 [id number] Univers 00:00:00 00:00:00 Wendy Callaway 350.1.13.10 i ty of [place]2.[place].2.[place] [phone] Ky dical nal [address] [place] [address] 2021-08-20 2021-08-20 Routine Zarina Kennedy [facility] 1.2.566.108 [id number] Univers 08:20:54 09:06:30 Cam Callaway 350.1.13.10 ity of [place]2.7.2.[place] [phone] Ky dical nal [address] [place] [address] 2021-08-20 2021-08-20 Outpatient R ZARINA KENNEDY [facility] [id number] Univers 08:00:00 08:00:00 ity of [facility] 2021-08-20 2021-08-20 Telephone Brent [facility] 1.2.840.114 [id number] Univers 00:00:00 00:00:00 Cam Callaway 350.1.13.10 i ty of [place].2.[place] [phone] Ky dical nal 134 [facility] 2021-08-20 2021-08-20 Orders Doctor JUSTIN 1.2.840.114 [id number] Univers 00:00:00 00:00:00 Only Unassigned, [place] 350.1.13.10 ity of [place] [facility] 4.2.7.2.686 Tk as [phone] [facility] [address] 2021-08-17 2021-08-17 [facility] Kennedy [facility] 1.2.840.114 [id number] Univers 19:05:00 21:15:00 Encounter Marcus Grady 350.1.13.10 ity of [place].2.[place] [phone] [facility] [address] 2021-08-17 2021-08-17 Orders Doctor JUSTIN 1.2.840.114 [id number] Univers 00:00:00 00:00:00 Only Unassigned, [place] 350.1.13.10 ity of [place] [facility] 4.2.7.2.686 Tk as [phone] [address] 2021-08-13 2021-08-13 Outpatient Steov RIVERA [facility] [id number] Univers 16:00:00 16:00:00 WENDY durham [facility] 2021-08-13 2021-08-13 Organ Tuner Electronic 2, Adc Lab [facility] 1.2.840.114 [id number] Univers 13:32:20 13:47:20 Visit Wendy Rivera 350.1.13.10 ity of [place]2.[place].2.[place] [phone] Ky dical nal [address] [facility] 2021-08-13 2021-08-13 Routine Nicole [facility] 1.2.393.211 [id number] Univers 12:46:01 13:29:24 Wendy Grady 350.1.13.10 ity of Visit [place].2.[place] [phone] Ky dical nal 134 [facility] 2021-08-11 2021-08-11 Nurse Lashay Merritt 1.2.840.114 [id number] Univers 00:00:00 00:00:00 Triage [place] 350.1.13.10 it y of HOSPITAL 4.2.7.2.686 Tk as [phone] [facility] [address] 2021-08-03 2021-08-03 Hospital KennedyZarina Marcus [facility] 1.2.840.114 [id number] Univers 10:23:00 13:15:00 Encounter Norma Partida 350.1.13.10 ity of [place].2.[place].2.[place] [phone] [facility] [address] 2021-08-03 2021-08-03 Telephone Brent Zarina [facility] 1.2.840.114 [id number] Univers 00:00:00 00:00:00 Marcus Grady 350.1.13.10 i ty of [place].2.[place] [phone] Ky dicne nal [address] [facility] 2021-08-03 2021-08-03 Orders Doctor JUSTIN 1.2.840.114 [id number] Univers 00:00:00 00:00:00 Only Unassigned, [place] 350.1.13.10 ity of [place] [facility] 4.2.7.2.686 Tk as [phone] [facility] [address] 2021-08-01 2021-08-01 Routine BrentZarina Marcus [facility] 1.2.840.114 [id number] Univers 15:55:38 16:48:02 Wendy Rivera 350.1.13.10 ity of Visit [place].2.[place] [phone] Ky dical nal [address] [facility] 2021-08-01 2021-08-01 Outpatient R NICOLE [facility] [id number] Univers 16:15:00 16:15:00 WENDY ity of [facility] 2021-07-20 2021-07-20 Organ Tuner Electronic Ultrasound, Adc [facility] 1.2 .840.114 [id number] Univers 13:13:35 13:57:45 Visit Sherry Cueto [place] 350.1 .13.10 ity of [place]2.7.2.[place] [phone] [place] dical nal [address] [place] [address] 2021-07-20 2021-07-20 Outpatient P [facility] [id number] Univers 13:30:00 13:30:00 ity of [facility] 2021-07-18 2021-07-18 Outpatient R RADHADAMIEN, [facility] [id number] Univers 09:45:00 09:45:00 WENDY ity [facility] 2021-07-18 2021-07-18 Outpatient R [facility] [id number] Univers 08:15:00 08:15:00 ity of [facility] 2021-07-17 2021-07-17 Routine Brent [facility] 1.2.657.041 [id number] Univers 15:44:11 16:52:37 Cam [place] 350.1.13.10 ity of Visit [place].7.2.[place] [phone] Ky dical nal [address] [place] [address] 2021-07-17 2021-07-17 Routine Zarina Kennedy [facility] 1.2.192.368 [id number] Univers 15:44:11 16:52:37 Cam [place]away 350.1.13.10 ity of Visit [place] 4.2.7.2.[place] [phone] Ky dical nal [address] [place] [address] 2021-07-17 2021-07-17 Outpatient R BRENT ZARINA [facility] [id number] Univers 16:15:00 16:15:00 ity of [facility] 2021-07-17 2021-07-17 Orders Doctor ANDERSON 1.2.840.114 [id number] Univers 00:00:00 00:00:00 Only Unassigned, [place] 350.1.13.10 ity of [place] [facility] 4.2.7.2.686 Tk as [phone] [address] 2021-07-17 2021-07-17 Orders Doctor ANDERSON 1.2.840.114 [id number] Univers 00:00:00 00:00:00 Only Unassigned, [place] 350.1.13.10 ity of [place] [facility] 4.2.7.2.686 Tk as [phone] [address] 2021-07-09 2021-07-09 Outpatient R ZARINA KENNEDY [facility] [id number] Univers 11:15:00 11:15:00 ity of [facility] 2021-07-03 2021-07-03 Telephone Zarina Kennedy [facility] 1.2.840.114 [id number] Univers 00:00:00 00:00:00 Marcus Jameston 350.1.13.10 i ty of [place] [phone] Ky dical nal [address] [facility] 2021-07-03 2021-07-03 Telephone Zarina Kennedy [facility] 1.2.840.114 [id number] Univers 00:00:00 00:00:00 Marcus Grady 350.1.13.10 i ty of [place] [phone] Ky dical nal 134 [facility] 2021-06-28 2021-06-28 Organ Tuner Electronic 2, [facility] Lab [facility] 1.2.840.114 [id number] Univers 10:40:29 10:55:29 Visit Zarina Kennedy Marcus Grady 350.1.13.10 ity of [place].2.[place] [phone] Ky dical nal [address] [facility] 2021-06-28 2021-06-28 Organ Tuner Electronic 2, Adc Lab [facility] 1.2.840.114 [id number] Univers 10:40:29 10:55:29 Visit Zarina Kennedy Marcus Grady 350.1.13.10 ity of [place]2.[place] [phone] Ky dical nal [address] [facility] 2021-06-28 2021-06-28 Outpatient R [facility] [id number] Univers 10:00:00 10:00:00 ity of [facility] 2021-06-28 2021-06-28 Telephone Zarina Kennedy [facility] 1.2.840.114 [id number] Univers 00:00:00 00:00:00 Cam [place] 350.1.13.10 i ty of [place].2.[place] [phone] [address] 2021-06-25 2021-06-25 Routine Zarina Kennedy [facility] 1.2.470.872 [id number] Univers 10:31:20 11:38:32 Cam Callaway 350.1.13.10 ity of Visit [place] 4.2.[place].2.[place] [phone] [address] 2021-06-25 2021-06-25 Outpatient R ZARINA KENNEDY [facility] [id number] Univers 11:00:00 11:00:00 ity of [facility] 2021-06-11 2021-06-11 Emergency Neema Kennedyen [facility] 1.2.840.114 [id number] Univers 17:01:00 19:52:00 Cam [place] 350.1.13.10 i ty of [place].2.[place] [phone] [address] 2021-06-11 2021-06-11 Telephone Zarina Kennedy [facility] 1.2.840.114 [id number] Univers 00:00:00 00:00:00 Cam Callaway 350.1.13.10 i ty of [place] 4[place]2.7.2.[place] [phone] [address] 2021-06-07 2021-06-07 Telephone Zarina Kennedy [facility] 1.2.840.114 [id number] Univers 00:00:00 00:00:00 Cam [place] 350.1.13.10 i ty of [place].2.[place] [phone] [address] 2021-05-29 2021-05-29 Nurse Nurse, [facility] 1.2.840.114 [id number] Univers 15:17:17 15:49:09 Visit Zarina Kennedy [place] 350.1.13.10 ity of [place].2.[place] [phone] Ky dical nal 134 [facility] 2021-05-29 2021-05-29 Organ Tuner Electronic 2, Adc Lab [facility] 1.2.840.114 [id number] Univers 15:07:51 15:22:51 Visit Zarina Kennedy 350.1.13.10 ity of [place] 4[place].2.[place] [phone] Ky norman lopez [address] [facility] 2021-05-29 2021-05-29 Outpatient R [facility] [id number] [facility] Univers 15:00:00 15:00:00 ity of [facility] 2021-05-29 2021-05-29 Telephone Neema Kennedyen [facility] 1.2.840.114 [id number] Univers 00:00:00 00:00:00 Marcus Grady 350.1.13.10 i ty of [place].2.[place] [phone] Ky norman lopez [address] [facility] 2021-05-28 2021-05-28 Routine Neema Kennedyen [facility] 1.2.002.056 [id number] Univers 13:26:09 14:18:04 Marcus Grady 350.1.13.10 ity of Visit [place] 4.2.7.2.686 [place] [phone] Ky dicpranav lopez [address] [facility] 2021-05-28 2021-05-28 Outpatient R ZARINA KENNEDY [facility] [id number] Univers 13:30:00 13:30:00 ity [facility] 2021-05-09 2021-05-09 Outpatient R NICOLE [facility] [id number] Univers 11:15:00 11:15:00 WENDY itbandar [facility] 2021-05-09 2021-05-09 Routine Nicole [facility] 1.2.504.787 [id number] Univers 10:58:18 11:13:18 Wendy Grady 350.1.13.10 ity of [place].2.[place] [phone] [address] 2021-05-07 2021-05-07 Telephone Brent Zarina [facility] 1.2.840.114 [id number] Univers 00:00:00 00:00:00 Cam [place] 350.1.13.10 i ty of [place].2.[place] [phone] [address] 2021-04-27 2021-04-27 Organ Tuner Electronic Ultrasound, Adc [facility] 1.2 .840.114 [id number] Univers 12:57:28 13:57:28 Visit Kian Gutierrez 350.1.13.10 ity of [place].2.[place] [phone] [address] 2021-04-27 2021-04-27 Outpatient R [facility] [id number] Univers 13:00:00 13:00:00 ity of [facility] 2021-04-24 2021-04-24 Telephone KennedyNeemaen [facility] 1.2.840.114 [id number] Univers 00:00:00 00:00:00 Cam [place] 350.1.13.10 [place] ty of [place] [phone] [address] 2021-04-21 2021-04-21 Telemedici Mihai Fernandez [facility] 1.2. 840.114 [id number] Univers 16:26:26 16:59:11 ne Visit Unknown, Attending HEALTH 350.1.13.1 0 ity of [place].2.[place] [phone] [facility] 2021-04-21 2021-04-21 Outpatient R UNKNOWN, [facility] [id number] Univers 16:30:00 16:30:00 ATTENDING ity [facility] 2021-04-19 2021-04-19 Emergency Zarina Kennedy [facility] 1.2.840.114 [id number] Univers 11:49:00 16:10:00 Cam [place] 350.1.13.10 i ty of [place].2.[place] [phone] [address] 2021-04-19 2021-04-19 Telephone Neema Kennedyen [facility] 1.2.840.114 [id number] [facility] 00:00:00 00:00:00 Cam Callaway 350.1.13.10 i ty of [place].2.[place] [phone] Ky dical nal 134 [facility] 2021-04-11 2021-04-11 Organ Tuner Electronic 2, Adc Lab [facility] 1.2.840.114 [id number] [facility] 13:32:48 13:47:48 Visit Neema Kennedymarlon Grady 350.1.13.10 ity of [place].2.[place] [phone] [facility] 2021-04-11 2021-04-11 [facility] 1.2.839.630 [id number] [facility] 13:05:36 13:28:34 Cam Callaway 350.1.13.10 ity of [place] 4.2.7.2.[place] [phone] Ky dicne nal 134 [facility] 2021-04-11 2021-04-11 Outpatient R ZARINA KENNEDY [facility] [id number] Univers 13:00:00 13:00:00 ity of [facility] 2021-03-14 2021-03-14 Routine Nicole [facility] 1.2.043.617 [id number] Univers 12:43:31 13:35:28 Wendy Callaway 350.1.13.10 ity of [place] [phone] Ky dical nal 134 [facility] 2021-03-14 2021-03-14 Routine Nicole [facility] 1.2.274.025 [id number] 12:43:31 13:35:28 Wendy Call[place] 350.1.13.10 Visit [place] 4.2.7.2.686 Professio [phone] [address] 2021-03-14 2021-03-14 Outpatient R NICOLE [facility] [id number] Univers 13:00:00 13:00:00 WENDY ity of [facility] 2021-02-28 2021-02-28 Telephone Zarina Kennedy [facility] 1.2.840.114 [id number] Univers 00:00:00 00:00:00 Cam Miguel A 350.1.13.10 i ty of [place] [phone] [address] 2021-02-21 2021-02-21 Outpatient R [facility] [id number] Univers 13:15:00 13:15:00 ity of [facility] 2021-02-21 2021-02-21 Orders Doctor ANDERSON 1.2.840.114 [id number] Univers 00:00:00 00:00:00 Only Unassigned, [place] 350.1.13.10 ity of [place] [facility] 4.2.7.2.686 Tk as [phone] [address] 2021-02-14 2021-02-14 Routine Zarina Kennedy [facility] 1.2.333.700 [id number] Univers 15:01:28 15:58:16 Cam Miguel A 350.1.13.10 ity of [place].2.[place] [phone] [address] 2021-02-14 2021-02-14 Outpatient R ZARINA KENNEDY [facility] [id number] Univers 15:45:00 15:45:00 ity [facility] 2021-01-23 2021-01-23 Orders Doctor JUSTIN 1.2.840.114 [id number] Univers 00:00:00 00:00:00 Only Unassigned, [place] 350.1.13.10 ity of [place] [facility] 4.2.7.2.686 Tk as [phone] [address] 2021-01-19 2021-01-19 Telephone Brent [facility] 1.2.840.114 [id number] Univers 00:00:00 00:00:00 Marcus Grady 350.1.13.10 i ty of [place] [phone] Ky dical nal 134 [facility] 2021-01-18 2021-01-18 Organ Tuner Electronic 2, Adc Lab [facility] 1.2.840.114 [id number] Univers 14:10:26 14:25:26 Visit Zarina Kennedy [id number] [id number] [phone] [facility] [address] [facility] 2021-01-18 2021-01-18 Outpatient R [facility] [id number] Univers 14:15:00 14:15:00 ity of [facility] 2021-01-18 2021-01-18 [facility] [id number] Univers 00:00:00 00:00:00 Management Wendy Grady [id number] [id number] [phone] [address] 2021-01-17 2021-01-17 Outpatient R [facility] [id number] Univers 09:00:00 09:00:00 ity of [facility] 2021-01-16 2021-01-16 Outpatient R ZARINA KENNEDY [facility] [id number] Univers 08:45:00 08:45:00 ity of [facility] 2021-01-16 2021-01-16 Telephone Zarina Kennedy [facility] 1.2.840.114 [id number] Univers 00:00:00 00:00:00 Marcus Grady [id number] i [phone] [place] 134 [facility] 2021-01-15 2021-01-15 Organ Tuner Electronic 2, Adc Lab [facility] 1.2.840.114 [id number] Univers 11:32:17 11:47:17 Visit Zarina Kennedy [id number] [place] [phone] [place] [address] [facility] 2021-01-15 2021-01-15 Initial Zarina Kennedy [facility] [id number] Univers 10:17:01 11:18:23 Marcus Grady 350.1.13.10 it[place] [phone] [place] dicpranav nal 134 [facility] 2021-01-15 2021-01-15 Outpatient R ZARINA KENNEDY [facility] [id number] Univers 10:00:00 10:00:00 ity of [facility] 2021-01-15 2021-01-15 Telephone Zarina Kennedy [facility] 1.2.840.114 [id number] Univers 00:00:00 00:00:00 Marcus Grady 350.1.13.10 i [place] [phone] [place] dic[place] nal 134 [facility] 2021-01-15 2021-01-15 Orders Doctor JUSTIN 1.2.840.114 [id number] Univers 00:00:00 00:00:00 Only Unassigned, [place] 350.1.13.10 ity of [place] [facility] 4.2.7.2.686 Tk as [phone] [facility] [address] 2021-01-13 2021-01-13 Emergency [facility] 1.2.298.863 [id number] Univers 18:29:00 22:52:00 Kary Grady 350.1.13.10 i [place] [phone] [facility] [address] 2020-12-01 2020-12-01 Emergency E [facility] [id number] [facility] 10:52:00 12:00:00 [facility] 2020-07-11 2020-07-11 Office [facility] 1.2.840.114 [id number] Univers 10:39:46 11:22:54 Visit Norma Grady 350.1.13.10 [place] [facility] [phone] [place] dical [address] 2020-07-11 2020-07-11 Out[facility] [id number] Univers 11:00:00 11:00:00 NORMA durham [facility] 2020-07-11 2020-07-11 Orders Doctor ANDERSON 1.2.840.114 [id number] Univers 00:00:00 00:00:00 Only Unassigned, [place] 350.1.13.10 ity of [place] [facility] 4.2.7.2.686 Tk as [phone] [address] 2020-07-05 2020-07-05 Outpatient Stevo [facility] [id number] Univers 16:00:00 16:00:00 NORMA durham [facility] 2020-06-21 2020-06-21 Emergency [facility] 1.2.309.112 [id number] Univers 15:22:00 18:25:00 Viviana Grady 350.1.13.10 [place] [phone] [address] 2020-06-21 2020-06-21 Orders Doctor ANDERSON 1.2.840.114 [id number] Univers 00:00:00 00:00:00 Only Unassigned, [place] 350.1.13.10 ity of [place] [facility] 4.2.7.2.686 Tk as [phone] [address] 2020-05-01 2020-05-01 Orders Doctor JUSTIN 1.2.840.114 [id number] Univers 00:00:00 00:00:00 Only Unassigned, [place] 350.1.13.10 ity of [place] [facility] 4.2.7.2.686 Tk as [phone] [address] 2020-02-28 2020-02-28 Outpatient [facility] [id number] Univers 11:00:00 11:00:00 WENDY durham [facility] 2020-02-28 2020-02-28 Telemedicsacha Rivera [facility] 1.2.840.114 [id number] Univers 08:13:41 08:28:41 ne Visit Wendy Grady 350.1.13.10 [place] [phone] [address] 2020-02-26 2020-02-26 Outpatient R RAVI, [facility] [id number] Univers 11:00:00 11:00:00 ATTENDING ity [facility] 2020-02-21 2020-02-21 [facility] 1.2.840.114 [id number] Univers 00:00:00 00:00:00 Wendy Grady 350.1.13.10 [place] [phone] [address] 2020-02-04 2020-02-04 [facility] 1.2.840.114 [id number] Univers 00:00:00 00:00:00 Wendy Grady 350.1.13.10 i [place] [phone] [address] 2020-02-02 2020-02-02 Refill Brent [facility] 1.2.093.224 [id number] Univers 00:00:00 00:00:00 Marcus Grady 350.1.13.10 [place] [phone] [address] 2020-01-30 2020-02-01 [facility] Brent [facility] 1.2.840.114 [id number] Univers 23:20:00 13:32:00 Encounter Marcus Grady 350.1.13.10 it[place] [phone] [address] 2020-01-31 2020-01-31 Outpatient R NICOLE [facility] [id number] Univers 11:00:00 11:00:00 WENDY durham [facility] 2020-01-30 2020-01-30 Orders Doctor JUSTIN 1.2.840.114 [id number] Univers 00:00:00 00:00:00 Only Unassigned, [place] 350.1.13.10 ity of [place] [facility] 4.2.7.2.686 Tk as [phone] [facility] [address] 2020-01-28 2020-01-28 Telephone Zarina Kennedy [facility] 1.2.840.114 [id number] Univers 00:00:00 00:00:00 Cam Miguel A 350.1.13.10 i ty [place] [phone] [place] dical nal 134 [facility] 2020-01-24 2020-01-24 Organ Tuner Electronic 2, Adc Lab [facility] 1.2.840.114 [id number] Univers 14:38:36 14:53:36 Visit Zarina Kennedy 350.1.13.10 [place] [phone] [place] dical nal 353 [facility] 2020-01-24 2020-01-24 Routine Zarina Kennedy [facility] 1.2.608.640 [id number] Univers 13:22:06 14:11:49 Marcus Grady 350.1.13.10 ity [place] [phone] [place] dical nal 134 [facility] 2020-01-24 2020-01-24 Outpatient R KENNEDYZARINA [facility] [id number] Univers 13:15:00 13:15:00 ity of [facility] 2020-01-24 2020-01-24 Orders Doctor ANDERSON 1.2.840.114 [id number] Univers 00:00:00 00:00:00 Only Unassigned, [place] 350.1.13.10 ity of [place] [facility] 4.2.7.2.686 Tk as [phone] [address] 2020-01-23 2020-01-23 [facility] MairaaustynMarco A [facility] 1.2.8 40.114 [id number] Univers 03:41:00 07:15:00 Encounter Zarina Kennedy 350.1.13.10 ity of [place] 4.2.7.2.686 [facility] [phone] [address] 2020-01-21 2020-01-22 [facility] 1.2.840.114 [id number] Univers 21:41:00 01:25:00 Encounter aMrco A Grady 350.1.13.10 ity of [place] 4.2.7.2.686 [facility] [phone] [address] 2020-01-20 2020-01-20 [facility] 1.2.553.365 [id number] Univers 00:00:00 00:00:00 Management Marcus Miguel A 350.1.13.10 [place] [phone] [address] 2020-01-18 2020-01-18 [facility] 1.2.840.114 [id number] Univers 12:35:00 15:00:00 Encounter Marcus Grady 350.1.13.10 ity of [place] 4.2.7.2.686 [facility] [phone] [address] 2020-01-18 2020-01-18 Outpatient P ZARINA KENNEDY [facility] JONI [id number] Univers 12:35:00 12:35:00 ity of [facility] 2020-01-10 2020-01-10 Routine Nicole [facility] 1.2.338.467 [id number] Univers 13:56:38 14:42:48 Wendy Grady 350.1.13.10 it[place] [phone] [address] 2020-01-10 2020-01-10 Outpatient R NICOLE [facility] [id number] Univers 14:00:00 14:00:00 WENDY durham [facility] 2020-01-06 2020-01-06 Outpatient R ZARINA KENNEDY [facility] [id number] Univers 11:15:00 11:15:00 ity [facility] 2020-01-06 2020-01-06 Nurse Eda Santos 1.2.840.114 [id number] Univers 00:00:00 00:00:00 Triage [place] 350.1.13.10 it y of [facility] 4.2.7.2.686 Tk as [phone] [address] 2019-12-08 2019-12-08 Routine Nicole [facility] 1.2.908.980 [id number] [facility] 13:39:40 14:27:14 Wendy Grady 350.1.13.10 it[place] [phone] [address] 2019-11-01 2019-11-01 Office Suki Martha [facility] 1.2.8 40.114 [id number] [facility] 12:45:26 13:14:04 Visit Jonny Sarah [employer] 350.1.13.10 ity of [facility] 4.2.7.2.686 Tk as MATERNAL [phone] Med ical & CHILD [address] [place] [address] 2019-07-29 2019-07-29 Telephone Zarina Kennedy [facility] 1.2.840.114 [id number] [facility] 00:00:00 00:00:00 Marcus Grady 350.1.13.10 i [place] [phone] [address] 2019-07-28 2019-07-28 Case Zarina Kennedy [facility] 1.2.517.163 [id number] Univers 00:00:00 00:00:00 Management Marcus Grady 350.1.13.10 [place] [phone] [address] 2019-07-27 2019-07-27 Nurse Nurse, [facility] 1.2.840.114 [id number] Univers 15:56:23 16:11:23 Visit Zarina Kennedy 350.1.13.10 [place] [phone] [address] 2019-07-23 2019-07-23 Telephone Zarina Kennedy [facility] 1.2.840.114 [id number] Univers 00:00:00 00:00:00 Cam Callaway 350.1.13.10 i [place] [phone] [place] dic[address] 2019-07-21 2019-07-21 Organ Tuner Electronic 1, [facility] [place] 1.2.840.114 [id number] [facility] 13:20:15 13:35:15 Visit Zarina Kennedy Miguel A 350.1.13.10 it[place] [phone] [address] 2019-07-20 2019-07-20 Routine Zarina Kennedy [facility] 1.2.882.734 [id number] Univers 16:27:05 17:06:12 Marcus Callaway 350.1.13.10 ity of [place] [phone] [place] dical nal [address] [place] [address] 2019-07-15 2019-07-15 Telephone Zarina Kennedy [facility] 1.2.840.114 [id number] Univers 00:00:00 00:00:00 Cam Callaway 350.1.13.10 i ty [place] [phone] [place] dical nal [address] [place] [address] 2019-07-14 2019-07-14 Telephone Zarina Kennedy 1.2.840.114 [id number] Univers 00:00:00 00:00:00 Cam Callaway 350.1.13.10 i ty [place] [phone] [place] dical nal [address] [place] [address] 2019-07-07 2019-07-07 Initial Zarina Kennedy [facility] 1.2.373.989 [id number] Univers 14:11:07 16:17:14 Cam Callaway 350.1.13.10 ity [place] [phone] [place] dical nal [address] [place] [address] 2019-07-07 2019-07-07 Orders Doctor JUSTIN 1.2.840.114 [id number] Univers 00:00:00 00:00:00 Only Unassigned, [place] 350.1.13.10 ity of [place] [facility] 4.2.7.2.686 Tk as [phone] [address] Results Test Description Test Time Test Comments Results Result Comments Source COMP. METABOLIC PANEL (28669) 2023 04:40:07 Test Item Value Reference Range Interpretation Comme nts NA (test code = 9813036021) 142 mmol/L 135-145 K (test code = 6388880659) 3.6 mmol/L 3.5-5.0 CL (test code = 2591704359) 109 mmol/L 98-108 H CO2 TOTAL (test code = 21 mmol/L 23-31 L 8020781285) AGAP (test code = 2704256323) 12 2-16 BUN (test code = 8201358018) 11 mg/dL 7-23 GLUCOSE (test code = 106 mg/dL 70-110 4220900284) CREATININE (test code = 0.62 mg/dL 0.50-1.04 3184412722) TOTAL BILI (test code = 0.2 mg/dL 0.1-1.0 0071510558) CALCIUM (test code = 9.4 mg/dL 8.6-10.6 8119217230) T PROTEIN (test code = 7.4 g/dL 6.3-8.2 9686028086) ALBUMIN (test code = 4.5 g/dL 3.5-5.0 4227003510) ALK PHOS (test code = 79 U/L 34-122 5921609626) ALTv (test code = 1742-6) 32 U/L 5-35 AST(SGOT) (test code = 28 U/L 13-40 9237115276) eGFR (test code = 78934-4) 130.1 mL/min/1.73m2 CKD-EPI eGFR (2020). Assuming creati nine has been stable day -to-day for at least three months, the eGFR indicates Category G1 (>= 90 mL/min/1 .73 m2) Lab Interpretation (test code = Abnormal 41883-5) [facility] WITH [id number] 04:29:09 Test Item Value Reference Range Interpretation Comments WBC (test code = 7.15 See_Comment [Automated message] 9990-2) The system [address] generated this result transmitted ref erence range: 4.30 - 1 1.10 10*3/?L. The re ference range was not u sed to interpret this result as normal/abnor mal. RBC (test code = 4.45 See_Comment [Automated message] 509-8) The system [address] generated this result transmitted ref erence range: 3.93 - 5 .25 10*6/?L. The re ference range was not u sed to interpret this result as normal/abnor mal. HGB (test code = 13.1 g/dL 11.6-15.0 718-7) HCT (test code = 39.2 % 35.7-45.2 4544-3) MCV (test code = 88.1 fL 80.6-95.5 787-2) MCH (test code = 29.4 pg 25.9-32.8 785-6) MCHC (test code = 33.4 g/dL 31.6-35.1 786-4) RDW-SD (test code 40.4 fL 39.0-49.9 = 93937-9) RDW-CV (test code 12.6 % 12.0-15.5 = 788-0) PLT (test code = 269 See_Comment [Automated message] 777-3) The system [address] generated this result transmitted ref erence range: 166 - 35 8 10*3/?L. The re ference range was not u sed to interpret this result as normal/abnor mal. MPV (test code = 9.6 fL 9.5-12.9 53325-0) NRBC/100 WBC (test 0.0 See_Comment [Automat ed message] code = 0829078927) The [employer] which generated this result transmitted ref erence range: 0.0 - 10 .0 /100 WBCs. The refer ence range was not u sed to interpret this result as normal/abnor mal. NRBC x10^3 (test See_Comment [Automated message] code = 1258978286) The syste m which generated this result transmitted ref erence range: 10*3/?L. The reference range was not used to interpr et this result as normal/abnormal . GRAN MAT (NEUT) % 69.3 % (test code = 770-8) IMM GRAN % (test 0.10 % code = 0697988871) LYMPH % (test code 22.2 % = 736-9) MONO % (test code 7.0 % = 5905-5) EOS % (test code = 1.1 % 713-8) BASO % (test code 0.3 % = 706-2) GRAN MAT 4.95 10*3/uL 1.88-7.09 x10^3(ANC) (test code = 6683664324) IMM GRAN x10^3 0.00-0.06 (test code = 8523008072) LYMPH x10^3 (test 1.59 10*3/uL 1.32-3.29 code = 731-0) MONO x10^3 (test 0.50 10*3/uL 0.33-0.92 code = 742-7) EOS x10^3 (test 0.08 10*3/uL 0.03-0.39 code = 711-2) BASO x10^3 (test 0.01-0.07 code = 704-7) [id number] 04:05:00 Test Item Value Reference Range Interpretation Comments POCT PREG (test code = 1605) Negative On board controls acceptable with Yes C Line (test code = 3574) POCT PREG LOT # (test code = 3575) [id number] POCT PREG TEST DATE (test 11/12/2024 code = 3576) Lab Interpretation (test code = Normal 20068-3) [facility], THIRD [id number] 06:03:21 Test Item Value Reference Range Interpretation Comments TSH, THIRD 1.000 UIU/ML 0.400-4.100 UNLESS OTHERWI SE GENERATION (test INDICATED, ALL TESTING code = 2821) [facility], [address] [place] [address] [facility] DIRECTOR: Gypsy [place] ASHANTI NUMBER [id number] CAP ACCREDITATION N O. [id number] LIPID [id number] 06:02:54 Test Item Value Reference Range Interpretation [...] MOREINFORMATION , SEE CLIENT ANNOUNCE MENT AT [email or web address] RISK RATIO LDL/HDL 2.56 RATIO <3.22 (test code = 2238) COMPREHENSIVE METABOLIC [id number] 06:02:54 Test Item Value Reference Range Interpretation Comments GLUCOSE (test code = 2217) 84 MG/DL 70-99 BUN (test code = 2208) 9 MG/DL 6-20 CREATININE (test code = 2214) 0.67 MG/DL 0.60-1.30 eGFR (2020 CKD-EPI) (test 127 ML/MIN/1.73 >60 code = 40548) CALC BUN/CREAT (test code = 13 RATIO 6-28 2234) SODIUM (test code = 223) 140 MEQ/L 133-146 POTASSIUM (test code = 2228) 4.1 MEQ/L 3.5-5.4 CHLORIDE (test code = 2215) 105 MEQ/L 95-107 CARBON DIOXIDE (test code = 21 MEQ/L 19-31 2205) CALCIUM (test code = 2209) 10.1 MG/DL 8.5-10.5 PROTEIN, TOTAL (test code [...] 30 U/L 5-40 CBC W/AUTO DIFF WITH [id number] 04:02:12 Test Item Value Reference Range Interpretation [...] RBCS 0.00 K/UL 0.00-0.11 (test code = 83610) HEMOGLOBIN [id number] 03:49:49 Test Item Value Reference Range Interpretation Comments HEMOGLOBIN A1c (test code = 82796) 5.3 % 4.2-5.6
--- NOTE | 2023-10-13 13:20 | RAD REPORT ---
EXAM DESCRIPTION: CT - Abdomen Pelvis Wo Contrast - 10/13/2023 1:07 pm CLINICAL HISTORY: Abdominal pain. FLANK PAIN COMPARISON: Abdomen Pelvis W Contrast dated 10/04/2023 TECHNIQUE: CT imaging of the abdomen and pelvis was performed without contrast. Solid organ, bowel a nd vascular assessment is limited due to lack of IV and oral contrast. All CT scans are performed using dose optimization technique as appropriate and may include automated exposure control or mA/KV adjustment according to patient size. FINDINGS: The lower lung callejas are clear.Cholecystectomy. The liver, spleen, pancreas, adrenal glands are within normal limits for a limited non-contrast exami [employer]. There is a 12 x 6 mm partially fragmented stone distal right ureter resulting severe right-sided hydr onephrosis and hydroureter. Multiple additional small caliceal stones are present right kidney. Punct ate stone is present superior pole left kidney. No bowel obstruction, free air, free fluid or abscess. The appendix is normal. The osseous structures are within normal limits. IMPRESSION: 12 x 6 mm distal right ureter stone show elongated and partially fragmented appearance r esults in severe right hydronephrosis and hydroureter. Additional bilateral caliceal nephrolithiasis noted, greater on the right. A limited non-contrast examination was performed as detailed.
[2023-10-13] MEDS ORDERED: HYDROMORPHONE HCL 1 MG/ML INJ ONE (13:24)
[2023-10-13] MEDS ORDERED: ONDANSETRON 4 MG/2 ML VIAL ONE (13:24)
[2023-10-13 13:27] LABS: Absolute Lymphocytes (CBC) 1.9 K/uL (0.7-4.9); Hematocrit 38.1 % (36.0-45.0); Lymphocytes % 15.6 % (15.3-44.8); MCV 87.3 fL (80-100); MPV 7.6 fL (7.6-11.3); Platelets 285 thou/uL (152-406); RBC Red Blood Cell Count 4.36 M/uL (3.86-4.86)
[2023-10-13 13:41] LABS: Albumin 3.6 g/dL (3.4-5.0); Bilirubin Total 0.3 mg/dL (0.2-1.0); Potassium 3.4 mEq/L (3.5-5.1); Protein, Total 7.3 g/dL (6.4-8.2)
[2023-10-13] MEDS ORDERED: NA CHLORIDE 0.9% 1,000 ML ONE (14:16)
[2023-10-13] MEDS ORDERED: KETOROLAC 30 MG/ML INJ ONE (14:31)
--- NOTE | 2023-10-13 14:43 | ER ---
Nurse's Notes [facility] Name: Devi Calvert Age: 23 yrs Sex: Female : 2000 Arrival Date: 10/13/2023 Time: 12:26 Bed 9 Private MD: Diagnosis: Renal colic, ureterolithiasis right side, severe right-sided hydronephrosis Presentation: 10/13 12:42 Chief complaint: EMS states: Pt removed uretal stent today that she had placed on cm10 Friday and is now having RLQ pain. Per patient, urologist told her that she could remove her stent today. Coronavirus screen: Vaccine status: Patient reports being unvaccinated. Client denies travel out of the [place] in the last 14 days. Ebola Screen: Patient denies travel to an Ebola-affected area in the 21 days before illness onset. No symptoms or risks identified at this time. Initial Sepsis Screen: Does the patient meet any 2 criteria? No. Patient's initial sepsis screen is negative. Does the patient have a suspected source of infection? No. Patient's initial sepsis screen is negative. Risk Assessment: Do you want to hurt yourself or someone else? Patient reports no desire to harm self or others. Onset of symptoms was October 13, 2023. 12:42 Method Of Arrival: EMS: [facility] cm10 12:42 Acuity: CHANTAL 3 cm10 Triage Assessment: 12:44 General: Appears in no apparent distress. uncomfortable, Behavior is calm, cooperative. cm10 Pain: Complains of pain in right lower quadrant Pain radiates to Right flank Pain currently is 10 out of 10 on a pain scale. Quality of pain is described as sharp, Pain began suddenly, Is continuous. EENT: No deficits noted. No signs and/or symptoms were reported regarding the EENT system. Neuro: No deficits noted. Level of Consciousness is awake, alert, obeys commands, Oriented to person, place, time, situation. Cardiovascular: No deficits noted. Patient's skin is warm and dry. Respiratory: No deficits noted. Airway is patent Respiratory effort is even, unlabored, Respiratory pattern is regular, symmetrical. GI: No deficits noted. No signs and/or symptoms were reported involving the gastrointestinal system. : Reports pain in right flank(s), lower quadrant(s). Derm: No deficits noted. Skin is intact, Skin is pink, warm \T\ dry. Musculoskeletal: No deficits noted. No signs and/or symptoms reported regarding the musculoskeletal system. Range of motion: intact in all extremities. HABITAT BIOLOGIST: 15:15 unknown cm10 Historical: - Allergies: 12:43 No Known Allergies; cm10 - PMHx: 12:43 Anxiety; Asthma; Depression; IPH; Migraines; previous suicide attempt; Schizophrenia; cm10 vocal chords problem; - PSHx: 12:43 Cholecystectomy; cm10 - Immunization history:: Adult Immunizations unknown. - Social history:: Smoking status: Patient reports the use of cigarette tobacco products, smokes one-half pack cigarettes per day, Reported history of juuling and/or vaping. Screenin:[facility] ED Fall Risk Assessment (Adult) History of falling in the last 3 months, cm10 including since admission No falls in past 3 months (0 pts) Confusion or Disorientation No (0 pts) Intoxicated or Sedated No (0 pts) Impaired Gait No (0 pts) Mobility Assist Device Used No (0 pt) Altered Elimination No (0 pt) Score/Fall Risk Level 0 - 2 = Low Risk Oriented to surroundings, Maintained a safe environment, Hourly rounding (assess needs \T\ fall precautionary measures) done. Abuse screen: Denies threats or abuse. Denies injuries from another. Nutritional screening: No deficits noted. Tuberculosis screening: No symptoms or risk factors identified. Assessment: 15:15 Reassessment: Patient appears in no apparent distress at this time. Patient and/or cm10 family updated on plan of care and expected duration. Pain level reassessed. Patient is alert, oriented x 3, equal unlabored respirations, skin warm/dry/pink. 15:32 Reassessment: Report called to BERNA Boyd at [facility]. cm10 16:27 Reassessment: Pt continues to complain of pain. Provider made aware and patient cm10 medicated per MAR prior to transport. 16:28 Reassessment: Pt being transported via [facility]. Pt A\T\Ox4, respirations even cm10 and unlabored. Pt stable at the time of transport. Vital Signs: 12:42 BP 100 / 69; Pulse 92; Resp 18; Temp 97.6; Pulse Ox 99% on R/A; Weight 55.79 kg; Height cm10 5 ft. 1 in. ; Pain 10/10; 13:23 BP 105 / 77; Pulse 80; Resp 18; Pulse Ox 100% on R/A; cm10 15:15 BP 97 / 62; Pulse 73; Resp 18; Pulse Ox 100% on R/A; cm10 15:30 BP 100 / 64; Pulse 76; Resp 18; Pulse Ox 100% ; cm10 15:45 BP 95 / 64; Pulse 73; Resp 18; Pulse Ox 100% on R/A; cm10 16:00 BP 92 / 58; Pulse 69; Resp 18; Pulse Ox 100% on R/A; cm10 16:15 BP 94 / 60; Pulse 70; Resp 18; Pulse Ox 100% on R/A; cm10 16:21 BP 91 / 51; Pulse 78; Resp 18; Pulse Ox 100% on R/A; cm10 12:42 Body Mass Index 23.24 (55.79 kg, 154.94 cm) cm10 12:42 Pain Scale: Adult cm10 ED Course: 12:30 Patient arrived in ED. bd 12:31 Carolyn Bryant MD is Attending Physician. sp3 12:43 Triage completed. cm10 12:45 Arm band placed on Patient placed in an exam room, on a stretcher. cm10 12:46 Patient has correct armband on for positive identification. Bed in low position. Side cm10 rails up X2. Provided Education on: ER process and procedures. . 12:46 No provider procedures requiring assistance completed. cm10 13:09 CT Abd/Pelvis - Without Contrast In Process Unspecified. EDMS 13:19 Bobbi Styles, RN is Primary Nurse. cm10 13:19 CBC with Diff Sent. cm10 13:19 CMP Sent. cm10 13:19 Lipase Sent. cm10 13:19 Initial lab(s) drawn, by ma, sent to lab. Inserted saline lock: 20 gauge in right cm10 antecubital area, using aseptic technique. Blood collected. 15:51 initiated transfer to [facility], pt accepted in transfer to [facility] by dr Alejandra, bd admin given by Vinayak Hall, pt going to er, will be transferred by ems. 16:29 Patient transferred, IV remains in place. cm10 Administered Medications: 13:23 Drug: Ondansetron IVP 4 mg IVP once; over 2 minutes Route: IVP; Site: right antecubital;cm10 16:29 Follow up: Response: No adverse reaction cm10 13:23 Drug: HYDROmorphone IVP 1 mg IVP once Route: IVP; Site: right antecubital; cm10 14:05 Follow up: Response: No adverse reaction cm10 14:05 Drug: NS 0.9% IV 1000 ml IV at 1 bolus Per protocol; 1000 mL bolus Route: IV; Rate: 1 cm10 bolus; Site: right antecubital; 15:40 Follow up: Response: No adverse reaction; IV Status: Completed infusion; IV Intake: cm10 1000ml 14:18 Drug: Ketorolac IVP 30 mg IVP once Route: IVP; Site: right antecubital; cm10 15:40 Follow up: Response: No adverse reaction cm10 16:24 Drug: HYDROcodone-acetaminophen PO 5 mg-325 mg 2 tabs PO once Route: PO; cm10 16:25 Follow up: Response: No adverse reaction; Medication administered at discharge. cm10 Medication: 12:46 VIS not applicable for this client. cm10 Intake: 15:40 IV: 1000ml; Total: 1000ml. cm10 Outcome: 14:42 ER care complete, transfer ordered by MD. ayala 16:28 Transferred by ground EMS [facility]. to [facility], cm10 Transfer form completed. 16:28 Condition: good 16:28 Instructed on the need for transfer, 16:29 Patient left the ED. cm10 Signatures: Dispatcher [employer] EDMS Susan Richards Setul, MD MD sp3 Bobbi Styles RN RN cm10
--- NOTE | 2023-10-13 14:43 | EDPHYS ---
Physician Documentation [facility] Name: Devi Calvert Age: 23 yrs Sex: Female : 2000 Arrival Date: 10/13/2023 Time: 12:26 Bed 9 Private MD: ED Physician Carolyn Bryant HPI: 10/13 13:08 This 23 yrs old Female presents to ER via EMS with complaints of abdominal sp3 pain and right flank pain. 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 She states the pain is in the right lower quadrant into the right flank and was there before the removal but got significantly worse after it was pulled. 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 - Social history:: Smoking status: Patient reports the use of cigarette tobacco products, smokes one-half pack cigarettes per day, Reported history of juuling and/or vaping. ROS: 13:09 Constitutional: Negative for fever, chills, and weight loss, Eyes: Negative for injury, sp3 pain, redness, and discharge, ENT: Negative for injury, pain, and discharge, Neck: Negative for injury, pain, and swelling, Cardiovascular: Negative for chest pain, palpitations, and edema, Respiratory: Negative for shortness of breath, cough, wheezing, and pleuritic chest pain, Back: Negative for injury and pain, MS/Extremity: Negative for injury and deformity, Skin: Negative for injury, rash, and discoloration, Neuro: Negative for headache, weakness, numbness, tingling, and seizure, Psych: Negative for depression, anxiety, suicide ideation, homicidal ideation, and hallucinations, Allergy/Immunology: Negative for hives, rash, and allergies, Endocrine: Negative for neck swelling, polydipsia, polyuria, polyphagia, and marked weight changes, Hematologic/Lymphatic: Negative for swollen nodes, abnormal bleeding, and unusual bruising, 13:09 All other systems are negative, Exam: 13:10 Constitutional: This is a well developed, well nourished patient who is awake, alert, sp3 and in no acute distress. Head/Face: Normocephalic, atraumatic. Eyes: Pupils equal round and reactive to light, extra-ocular motions intact. Lids and lashes normal. Conjunctiva and sclera are non-icteric and not injected. Cornea within normal limits. Periorbital areas with no swelling, redness, or edema. Neck: Trachea midline, no thyromegaly or masses palpated, and no cervical lymphadenopathy. Supple, full range of motion without nuchal rigidity, or vertebral point tenderness. No Meningismus. Chest/axilla: Normal chest wall appearance and motion. Nontender with no deformity. No lesions are appreciated. Cardiovascular: Regular rate and rhythm with a normal S1 and S2. No gallops, murmurs, or rubs. Normal PMI, no JVD. No pulse deficits. Respiratory: Lungs have equal breath sounds bilaterally, clear to auscultation and percussion. No rales, rhonchi or wheezes noted. No increased work of breathing, no retractions or nasal flaring. Back: No spinal tenderness. No costovertebral tenderness. Full range of motion. Skin: Warm, dry with normal turgor. Normal color with no rashes, no lesions, and no evidence of cellulitis. MS/ Extremity: Pulses equal, no cyanosis. Neurovascular intact. Full, normal range of motion. Neuro: Awake and alert, GCS 15, oriented to person, place, time, and situation. Cranial nerves II-XII grossly intact. Motor strength 5/5 in all extremities. Sensory grossly intact. Cerebellar exam normal. Normal gait. 13:10 Abdomen/GI: Right lower quadrant pain to palpation without peritoneal signs rebound or guarding, right flank pain also reproducible with CVA tenderness., Vital Signs: 12:42 BP 100 / 69; Pulse 92; Resp 18; Temp 97.6; Pulse Ox 99% on R/A; Weight 55.79 kg; Height cm10 5 ft. 1 in. ; Pain 10/10; 13:23 BP 105 / 77; Pulse 80; Resp 18; Pulse Ox 100% on R/A; cm10 15:15 BP 97 / 62; Pulse 73; Resp 18; Pulse Ox 100% on R/A; cm10 15:30 BP 100 / 64; Pulse 76; Resp 18; Pulse Ox 100% ; cm10 15:45 BP 95 / 64; Pulse 73; Resp 18; Pulse Ox 100% on R/A; cm10 16:00 BP 92 / 58; Pulse 69; Resp 18; Pulse Ox 100% on R/A; cm10 16:15 BP 94 / 60; Pulse 70; Resp 18; Pulse Ox 100% on R/A; cm10 16:21 BP 91 / 51; Pulse 78; Resp 18; Pulse Ox 100% on R/A; cm10 12:42 Body Mass Index 23.24 (55.79 kg, 154.94 cm) cm10 12:42 Pain Scale: Adult cm10 MDM: 12:42 Patient medically screened. sp3 13:10 Data reviewed: vital signs, nurses notes, lab test result(s), radiologic studies. ED sp3 course: 23-year-old female with right flank and right lower quad abdominal pain after ureteral stent removal secondary to kidney stone status post procedure. Work-up includes anatomy disruption, retained stone fragments, infection, among others. We will obtain laboratory values, urine analysis and noncontrast CT scan of the abdomen/pelvis. Disposition pending work-up and patient course. Dilaudid and Zofran IV for symptomatic control in the meanwhile.. 13:51 ED course: Discussed with Dr. Duff at [facility] clinic via my private cell phone. He sp3 states that he is fairly confident that the stone is adequately fragmented given its position in the distal ureter things will pass freely. He suggested IV pain control and IV fluids and subsequent discharge to clinic visit on Friday versus transferring to [facility] for pain control if warranted. Will attempt ED interventions and transfer if patient is still symptomatic.. 10/13 12:50 Order name: CBC with Diff; Complete Time: 13:40 sp3 10/13 12:50 Order name: CMP sp3 10/13 12:50 Order name: Lipase sp3 10/13 12:50 Order name: CT Abd/Pelvis - Without Contrast; Complete Time: 13:21 sp3 10/13 12:50 Order name: IV Saline Lock; Complete Time: 13:19 sp3 10/13 12:50 Order name: Labs collected and sent; Complete Time: 13:19 sp3 Administered Medications: 13:23 Drug: Ondansetron IVP 4 mg IVP once; over 2 minutes Route: IVP; Site: right antecubital;cm10 16:29 Follow up: Response: No adverse reaction cm10 13:23 Drug: HYDROmorphone IVP 1 mg IVP once Route: IVP; Site: right antecubital; cm10 14:05 Follow up: Response: No adverse reaction cm10 14:05 Drug: NS 0.9% IV 1000 ml IV at 1 bolus Per protocol; 1000 mL bolus Route: IV; Rate: 1 cm10 bolus; Site: right antecubital; 15:40 Follow up: Response: No adverse reaction; IV Status: Completed infusion; IV Intake: cm10 1000ml 14:18 Drug: Ketorolac IVP 30 mg IVP once Route: IVP; Site: right antecubital; cm10 15:40 Follow up: Response: No adverse reaction cm10 16:24 Drug: HYDROcodone-acetaminophen PO 5 mg-325 mg 2 tabs PO once Route: PO; cm10 16:25 Follow up: Response: No adverse reaction; Medication administered at discharge. cm10 Disposition Summary: 10/13/23 14:42 Transfer Ordered Notes: Transfer Location: [facility]-System sp3 Reason: Higher level of care sp3 Condition: Stable sp3 Problem: an acute exacerbation sp3 Symptoms: have worsened sp3 Accepting Physician: Dr. Alejandra and Hospitalist(10/13/23 16:29) cm10 Diagnosis - Renal colic, ureterolithiasis right side, severe right-sided hydronephrosis sp3 Forms: - Medication Reconciliation Form sp3 - SBAR form sp3 Signatures: Dispatcher [employer] Carolyn Grimm MD MD sp3 Bobbi Styles RN RN cm10 Corrections: (The following items were deleted from the chart) 16:29 14:42 Dr. Alejandra and Hospitalist sp3 cm10
[2023-10-13] MEDS ORDERED: HYDROCODONE/APAP 5/325 MG TAB ONE (16:35)
[2023-10-13 17:52] VITALS: TEMP 97.6
[2023-10-13 17:54] VITALS: O2SAT 100
[2023-10-13 18:01] VITALS: BP 91/51
== END 2023-10-13 16:29 | disposition short-term general hospital (02) ==
LOC: ER 12:26
DX: N13.2 Hydronephrosis with renal and ureteral calculous obstruction (principal); F17.210 Nicotine dependence, cigarettes, uncomplicated; Z87.442 Personal history of urinary calculi
CPT/HCPCS: 96361; 85025; 36415; 83690; 80053; 74176; 96375; 96374; 99285; J1170; J2405; J7030

== ENCOUNTER → 2024-01-02 | Emergency (ER) | payer BC ==
[~2024-01-02] MED LIST: AMOX/K CLAV 875 MG TAB ONE
--- NOTE | 2024-01-02 07:53 | EDPHYS ---
Physician Documentation [facility] Name: Devi Calvert Age: 23 yrs Sex: Female : 2000 Arrival Date: 01/02/2024 Time: 07:40 Bed 15 Private MD: Jovanna Hamran ED Physician Raffaele Simpson HPI: 01/02 08:01 This 23 yrs old Female presents to ER via Unassigned with complaints of Sore rt Throat, Cough. 08:01 Patient presents to the ED with sore throat, cough, fever for about 3 days. States rt symptoms have worsened, not adequately improved with NyQuil. Denies other acute complaints at this time including difficulty breathing, ear pain. Symptoms are mild in severity, no other aggravating or alleviating factors.. 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 - Social history:: Smoking status: Patient reports the use of cigarette tobacco products, smokes .2 packs per day. ROS: 08:01 Cardiovascular: Negative for chest pain, palpitations, and edema, Abdomen/GI: Negative rt for abdominal pain, nausea, vomiting, diarrhea, and constipation, MS/Extremity: Negative for injury and deformity, Skin: Negative for injury, rash, and discoloration, Neuro: Negative for headache, weakness, numbness, tingling, and seizure, 08:01 Constitutional: Positive for fever, malaise, 08:01 ENT: Positive for rhinorrhea, sore throat, 08:01 Respiratory: Positive for cough, Negative for shortness of breath, Exam: 08:01 Constitutional: This is a well developed, well nourished patient who is awake, alert, rt and in no acute distress. Head/Face: Normocephalic, atraumatic. Chest/axilla: Normal chest wall appearance and motion. Nontender with no deformity. No lesions are appreciated. Cardiovascular: Regular rate and rhythm with a normal S1 and S2. No gallops, murmurs, or rubs. Normal PMI, no JVD. No pulse deficits. Respiratory: Lungs have equal breath sounds bilaterally, clear to auscultation and percussion. No rales, rhonchi or wheezes noted. No increased work of breathing, no retractions or nasal flaring. Abdomen/GI: Soft, non-tender, with normal bowel sounds. No distension or tympany. No guarding or rebound. No evidence of tenderness throughout. Skin: Warm, dry with normal turgor. Normal color with no rashes, no lesions, and no evidence of cellulitis. MS/ Extremity: Pulses equal, no cyanosis. Neurovascular intact. Full, normal range of motion. Neuro: Awake and alert, GCS 15, oriented to person, place, time, and situation. Cranial nerves II-XII grossly intact. Motor strength 5/5 in all extremities. Sensory grossly intact. Cerebellar exam normal. Normal gait. 08:01 ENT: Posterior pharyngeal erythema, 2+ tonsillar hypertrophy with exudates, symmetric, uvula is midline. Vital Signs: 07:57 BP 115 / 81; Pulse 97; Resp 16; Temp 98.1; Pulse Ox 98% ; Weight 57.61 kg; Height 5 ft. ll1 2 in. ; Pain 7/10; 07:57 Body Mass Index 23.23 (57.61 kg, 157.48 cm) ll1 07:57 Pain Scale: Adult ll1 MDM: 07:47 Patient medically screened. rt 08:01 Differential diagnosis: Strep pharyngitis, tonsillitis, viral syndrome. Data reviewed: rt vital signs, nurses notes. I considered the following discharge prescriptions or medication management in the emergency department Medications were administered in the Emergency Department. See MAR. Test considered but Not performed: Labs: Discussed empiric tonsillitis treatment versus testing, patient opts for empiric treatment, therefore, will not do viral, strep swab. Care significantly affected by the following chronic conditions: Asthma. Counseling: I had a detailed discussion with the patient and/or guardian regarding the historical points, exam findings, and any diagnostic results supporting the discharge/admit diagnosis, the need for outpatient follow up, to return to the emergency department if symptoms worsen or persist or if there are any questions or concerns that arise at home. Administered Medications: 08:03 Drug: Amoxicillin PO 875 mg PO once Route: PO; ll1 08:07 Follow up: Response: No adverse reaction ll1 Disposition Summary: 01/02/24 07:52 Discharge Ordered Notes: Location: Home rt Problem: new rt Symptoms: are unchanged rt Condition: Stable rt Diagnosis - Acute tonsillitis, unspecified rt Followup: rt - With: Private Physician - When: 2 - 3 days - Reason: Discharge Instructions: - Discharge Summary Sheet rt - Tonsillitis rt Forms: - Work release form eb - Medication Reconciliation Form rt - Thank You Letter rt - Antibiotic Education rt - Prescription Opioid Use rt - Patient Portal Instructions rt - Leadership Thank You Letter rt Prescriptions: - Amoxicillin 875 mg Oral Tablet - take 1 tablet ORAL route every 12 hours for 10 days; 20 tablet; Refills: 0, rt Product Selection Permitted Signatures: Dank Mejía RN RN ll1 Raffaele Simpson MD MD rt
--- OUTSIDE RECORDS SUMMARY | 2024-01-02 07:56 | XMS REPORT | Continuity of Care Document ---
Author Name Unknown Address [address] [facility] [address] [place] [address] [facility] thconnect Address [address] [facility] [address] [place] [address] Care Team Providers Care Blemish Remover Name Role Phone DANY MIRANDA Primary Care Physician UnavailZARINA Murphy Attending Clinician Unavailable 2, [facility] Attending Clinician Unavailable Zarina Kennedy MD Attending Clinician [phone] Doctor Unassigned, [place] Attending Clinician U navailable MARCO A LARSON Attending Clinician Unavailab annamaria Alejandra MD, Mallorie Attending Clinician [phone] Omer Burris MD, Lashell Attending Clinician + [phone] Hipolito ABRAHAM, Marco A Attending Clinician [phone] MALLORIE ALEJANDRA Attending Clinician Unavailable AILIN TANG Attending Clinician Unavailabl nusrat WONG, Ailin Attending Clinician [phone] CHANDANA SOTELO Attending Clinician Unavailable CHANDANA SOTELO Attending Clinician Unavailable Jackie Griffin MD, Iris Attending Clinician [phone] Nurse, [facility] Attending Clinician Un available BRIT LAUREN Attending Clinician Unavailabl IDA Celis Attending Clinician Unavailable Norma Partida MD Attending Clinician [phone] NORMA PARTIDA Attending Clinician Unavailable HINA SANON Attending Clinician HINA Ambrose Attending Clinician WENDY Elam Attending Clinician Unavailable Wendy Rivera PA-C Attending Clinician [phone] GUTIERREZ BRAVO Attending Clinician Unavailable Gutierrez Bravo MD Attending Clinician [phone] [facility] Attending Clinician Unavailable [facility] Attending Clin ician [place], Nephrology Attending Clinician Unavaila STAN Hampton Attending Clinician Unavail able STAN TY Attending Clinician Unavail able Pedro MILLER Attending Clinician Unavailable Pedro Fairchild Attending Clinician [phone] Jordan Gaspar CRNA Attending Clinician [phone] Jesus Martinez MD, Brando Attending Clinician + [phone] Only, [facility] Test Attending Clinician Unavailable Kary Oseguera MD Attending Clinician [phone] Shaina RN, Lashay Castellon Attending Clinician Unavailable Ultrasound, [facility] Attending Clinician Unavaila beata Aguillon MD, Powell Attending Clinician + Matt ABRAHAM, Kian R Attending Clinician [phone] Jim ABRAHAM, Mihai Attending Clinician [phone] Unknown, Attending Attending Clinician Unavailab le UNKNOWN, ATTENDING Attending Clinician Unavailab Kary Harkins R Attending Clinician [phone] DR GERMAN CARMEN Attending Clinician Unavailluis Orr NP, Viviana Shine Attending Clinician [phone] Marco A Nieto MD Attending Clinician + [phone] Eda Santos RN Attending Clinician Unavailable Martha Cohn Attending Clinician Unavail sammie Sarah MD, Jonny Marquez Attending Clinician [phone] 1, [facility] Attending Clinician Unavailable ZARINA KENNEDY Admitting Clinician Unavailable MARCO A NIETO Admitting Clinician Unavaila LASHELL Gavin Admitting Clinician Graham Burris MD, Lashell Admitting Clinician + [phone] MALLORIE ALEJANDRA Admitting Clinician Unavailable Justyn ABRAHAM, Mallorie Admitting Clinician [phone] IRIS KEYES Admitting Clinician Unavailab WENDY Short Admitting Clinician Unavailable Brent ABRAHAM, Zarina Velazquez Admitting Clinician [phone] Norma Partida MD Admitting Clinician [phone] NORMA PARTIDA Admitting Clinician Unavailable Kary Oseguera MD Admitting Clinician [phone] GERMAN CARMEN Admitting Clinician Unavailluis Nieto MD, Marco A Admitting Clinician + [phone] Payers Payer Name Policy Type Policy Number Effective Date Expirati on Date Source [facility] [id number] 2020 00:00:00 [facility] [id number] 2019 00:00:00 Problems Condition Name Condition Details Condition Category Status Onset Date Resolution Date Last Treatment Date Treating Clinician Comments Source Decreased libido Decreased libido Disease Active 11-13 00:00: 00 [facility] Hydronephr osis Hydronephr osis Disease Active 2022-11 2-04 00:00: 00 [facility] Calculus of kidney Calculus of kidney Disease Active 2022-11 00:00: 00 [facility] Hydronephr osis with urinary obstructio n due to renal calculus Hydronephr osis with urinary obstructio n due to renal calculus Disease Active 2022-11 00:00: 00 [facility] Flank pain Flank pain Disease Active 2022-11 00:00: 00 [facility] Allergic rhinitis Allergic rhinitis Disease Active 03-15 00:00: 00 [facility] Nausea Nausea Disease Active 03-15 00:00: 00 [facility] Generalize d anxiety disorder Generalize d anxiety disorder Disease Active 2018-11 0 00:00: 00 [facility] Major depressive disorder Major depressive disorder Disease Active 2018-1114 00:00: 00 [facility] History of self-harm History of self-harm Disease Active 2018-11 014 00:00: 00 [facility] Bipolar 1 disorder Bipolar 1 disorder Disease Active 07-09 00:00: 00 [facility] Asthma Asthma Disease Active 2 00:00: 00 [facility] Depressive disorder Depressive disorder Disease Active 12-10 00:00: 00 [facility] 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 Formattin g of this note might be different from the original. ONE episode. Normal lung biopsy. Treated with solumedro l monthly (3 days) x 5 months. Initially on plaquenil , stopped after 6-8 months. She's being observed off meds. [facility] Allergies, Adverse Reactions, Alerts Allergy Name Allergy Type Status Severity Reaction(s) Onset Date Inactive Date Treating Clinician Comments Source No Known Drug Allergie s DA Active [facility] NO KNOWN ALLERGIE S Drug Class Active [facility] Social History Social Habit Start Date Stop Date Quantity Comments Source Gender identity [facility] Sexual orientation [facility] Alcohol intake 2023-11-13 00:00:00 2023-11-13 00:00:00 Current drinker of alcohol (finding) [facility] Alcohol Comment 2023-11-13 00:00:00 2023-11-13 00:00:00 occassionally [facility] History of Social function 2023-10-10 00:00:00 2023-10-10 00:00:00 [facility] Cigarettes smoked current (pack per day) - Reported 2023-10-09 00:00:00 2023-10-09 00:00:00 [facility] Tobacco use and exposure 2023-10-09 00:00:00 2023-10-09 00:00:00 Smokeless tobacco non-user [facility] Tobacco Comment 2023-10-09 00:00:00 2023-10-09 00:00:00 1/2 PPD, and vaps [facility] Exposure to SARS-CoV-2 (event) 2023-02-08 00:00:00 2023-02-18 14:56:00 Not sure [facility] History of tobacco use 2019-07-05 00:00:00 Cigarette Smoker [facility] Sex Assigned At 2001 00:00:00 2001 00:00:00 [facility] Smoking Status Start Date Stop Date Source Smokes tobacco daily 2023-10-09 00:00:00 [facility] Ex-smoker 2022-06-03 00:00:00 2022-06-03 00:00:00 [facility] Medications Ordered Medication Name Filled Medication Name Start Date Stop Date Current Medication? Ordering Clinician Indication Dosage Frequency Signature (SIG) Comments Components Source medroxyPROG ESTERone (DEPO-PROVE RA) syringe 150 mg 11-13 20:15: 00 11-13 19:30 :00 [facility] [id number] [facility] medroxyPROG ESTERone (DEPO-PROVE RA) syringe 150 mg 11-13 20:15: 00 11-13 19:30 :00 No [id number] 150mg 150 mg, Intramuscu lar, ONCE, 1 dose, On [place] 11/13/23 at 1415, Routine [facility] medroxyPROG ESTERone (DEPO-PROVE RA) syringe 150 mg 11-13 20:15: 00 11-13 19:30 :00 No [id number] [facility] medroxyPROG ESTERone (DEPO-PROVE RA) syringe 150 mg 11-13 20:15: 00 11-13 19:30 :00 No [id number] 150mg 150 mg, Intramuscu lar, ONCE, 1 dose, On [place] 11/13/23 at 1415, Routine [facility] medroxyPROG ESTERone (DEPO-PROVE RA) syringe 150 mg 11-13 20:15: 00 11-13 19:30 :00 No [id number] [facility] medroxyPROG ESTERone (DEPO-PROVE RA) syringe 150 mg 11-13 20:15: 00 11-13 19:30 :00 No [id number] 150mg 150 mg, Intramuscu lar, ONCE, 1 dose, On [place] 11/13/23 at 1415, Routine [facility] ALBUTEROL SULFATE HFA INHALE 11-13 12:59: 22 Yes Inhale. [facility] ALBUTEROL SULFATE HFA INHALE 11-13 12:59: 22 Yes Inhale. [facility] ALBUTEROL SULFATE HFA INHALE 11-13 12:59: 22 Yes Inhale. [facility] ALBUTEROL SULFATE HFA INHALE 11-13 12:59: 22 Yes Inhale. [facility] ALBUTEROL SULFATE HFA INHALE 11-13 12:59: 22 Yes [facility]. [facility] mg capsule 11-13 12:58: 49 Yes 40mg Take 1 capsule by mouth every morning. [facility] ubrogepant (UBRELVY) 100 mg Tab 11-13 12:58: 49 Yes Ubrelvy 100 mg tablet Take 1 tablet by oral route as needed. [facility] acetaminoph en-codeine 300-30 mg tablet 11-13 12:58: 49 Yes TAKE 1 TABLET BY MOUTH EVERY 8 HOURS NEEDED FOR ACUTE PAIN [facility] ibuprofen 600 mg tablet 11-13 12:58: 49 Yes TAKE 1 TABLET BY MOUTH TWICE A DAY NEEDED [facility] diclofenac 75 mg EC tablet 11-13 12:58: 49 Yes [facility] cyclobenzap rine 5 mg tablet 11-13 12:58: 49 Yes 5mg Take 1 tablet by mouth 2 (two) times daily as needed. [facility] cetirizine 10 mg tablet 11-13 12:58: 49 Yes 10mg Take 1 tablet by mouth in the morning. [facility] FLUoxetine 40 mg capsule 11-13 12:58: 49 Yes 40mg Take 1 capsule by mouth every morning. [facility] ubrogepant (UBRELVY) 100 mg Tab 11-13 12:58: 49 Yes Ubrelvy 100 mg tablet Take 1 tablet by oral route as needed. [facility] acetaminoph en-codeine 300-30 mg tablet 11-13 12:58: 49 Yes TAKE 1 TABLET BY MOUTH EVERY 8 HOURS NEEDED FOR ACUTE PAIN [facility] ibuprofen 600 mg tablet 11-13 12:58: 49 Yes TAKE 1 TABLET BY MOUTH TWICE A DAY NEEDED [facility] diclofenac 75 mg EC tablet 11-13 12:58: 49 Yes [facility] cyclobenzap [facility]ine 5 mg tablet 11-13 12:58: 49 Yes 5mg Take 1 tablet by mouth 2 (two) times daily as needed. [facility] cetirizine 10 mg tablet 11-13 12:58: 49 Yes 10mg Take 1 tablet by mouth in the morning. [facility] FLUoxetine 40 mg capsule 11-13 12:58: 49 Yes 40mg Take 1 capsule by mouth every morning. [facility] ubrogepant (UBRELVY) 100 mg Tab 11-13 12:58: 49 Yes Ubrelvy 100 mg tablet Take 1 tablet by oral route as needed. [facility] acetaminoph en-codeine 300-30 mg tablet 11-13 12:58: 49 Yes TAKE 1 TABLET BY MOUTH EVERY 8 HOURS NEEDED FOR ACUTE PAIN [facility] ibuprofen 600 mg tablet 11-13 12:58: 49 Yes TAKE 1 TABLET BY MOUTH TWICE A DAY NEEDED [facility] diclofenac 75 mg EC tablet 11-13 12:58: 49 Yes [facility] cyclobenzap rine 5 mg tablet 11-13 12:58: 49 Yes 5mg Take 1 tablet by mouth 2 (two) times daily as needed. [facility] cetirizine 10 mg tablet 11-13 12:58: 49 Yes 10mg Take 1 tablet by mouth in the morning. [facility] FLUoxetine 40 mg capsule 11-13 12:58: 49 Yes 40mg Take 1 capsule by mouth every morning. [facility] ubrogepant (UBRELVY) 100 mg Tab 11-13 12:58: 49 Yes Ubrelvy 100 mg tablet Take 1 tablet by oral route as needed. [facility] acetaminoph en-codeine 300-30 mg tablet 11-13 12:58: 49 Yes TAKE 1 TABLET BY MOUTH EVERY 8 HOURS NEEDED FOR ACUTE PAIN [facility] ibuprofen 600 mg tablet 11-13 12:58: 49 Yes TAKE 1 TABLET BY MOUTH TWICE A DAY NEEDED [facility] diclofenac 75 mg EC tablet 11-13 12:58: 49 Yes [facility] cyclobenzap rine 5 mg tablet 11-13 12:58: 49 Yes 5mg Take 1 tablet by mouth 2 (two) times daily as needed. [facility] cetirizine 10 mg tablet 11-13 12:58: 49 Yes 10mg Take 1 tablet by mouth in the morning. [facility] FLUoxetine 40 mg capsule 11-13 12:58: 49 Yes 40mg Take 1 capsule by mouth every morning. [facility] ubrogepant (UBRELVY) 100 mg Tab 11-13 12:58: 49 Yes Ubrelvy 100 mg tablet Take 1 tablet by oral route as needed. [facility] acetaminoph en-codeine 300-30 mg tablet 11-13 12:58: 49 Yes TAKE 1 TABLET BY MOUTH EVERY 8 HOURS NEEDED FOR ACUTE PAIN [facility] ibuprofen 600 mg tablet 11-13 12:58: 49 Yes TAKE 1 TABLET BY MOUTH TWICE A DAY NEEDED [facility] diclofenac 75 mg EC tablet 11-13 12:58: 49 Yes [facility] cyclobenzap rine 5 mg tablet 11-13 12:58: 49 Yes 5mg Take 1 tablet by mouth 2 (two) times daily as needed. [facility] cetirizine 10 mg tablet 11-13 12:58: 49 Yes 10mg Take 1 tablet by mouth in the morning. [facility] acetaminoph en (TYLENOL) tablet 650 mg 2022-11 19:30: 00 Yes 650mg 650 mg, Oral, Q6H ABX, First dose (after last modificati on) on Fri10/14/23 at 1330, Until Discontinu ed, Routine [facility] methocarbam oL (ROBAXIN) tablet 500 mg 2022-11 18:30: 00 Yes 500mg 500 mg, Oral, QID, First dose on Fri10/14/23 at 1230, Until Discontinu ed, Routine [facility] ketorolac (TORADOL) injection 15 mg 2022-11 18:22: 51 10-18 18:21 :51 Yes 15mg 15 mg, Slow IV Push, Q6HPRN, Starting on Fri10/14/23 at 1222, Until Fri10/18/23 at 1221, Routine, Pain (scale 4-6) [facility] HYDROcodone -acetaminop hen (NORCO 5) 5-325 mg tablet 1 tablet 2022-11 18:20: 10 10-16 02:45 :23 Yes 1{tbl} 1 tablet, Oral, Q6HPRN, Starting on Fri10/14/23 at 1220, Until Fri10/15/23 at 204, Routine, Pain (scale 7-10) [facility] FLUoxetine (PROZAC) capsule 40 mg 2022-11 15:00: 00 Yes 40mg 40 mg, Oral, DAILY, First dose on Fri10/14/23 at 0900, Until Discontinu ed, Routine [facility] tamsulosin (FLOMAX) capsule 0.4 mg 2022-11 15:00: 00 Yes .4mg 0.4 mg, Oral, DAILY, First dose on Fri10/14/23 at 0900, Until Discontinu ed, Routine [facility] sennosides- docusate sodium (SENOKOT-S) 8.6-50 mg per tablet 1 tablet 2022-11 15:00: 00 Yes 1{tbl} 1 tablet, Oral, DAILY, First dose on Fri10/14/23 at 0900, Until Discontinu ed, Routine [facility] FLUoxetine 40 mg capsule 2022-11 14:44: 43 Yes 40mg Take 1 capsule by mouth every morning. [facility] ubrogepant (UBRELVY) 100 mg Tab 2022-11 14:44: 43 Yes Ubrelvy 100 mg tablet Take 1 tablet by oral route as needed. [facility] FLUoxetine 40 mg capsule 2022-11 14:44: 43 Yes 40mg Take 1 capsule by mouth every morning. [facility] ubrogepant (UBRELVY) 100 mg Tab 2022-11 14:44: 43 Yes Ubrelvy 100 mg tablet Take 1 tablet by oral route as needed. [facility] QUEtiapine (SEROQUEL) tablet 50 mg 2022-11 07:30: 00 Yes 50mg 50 mg, Oral, QHS, First dose on Fri10/14/23 at 0130, Until Discontinu ed, Routine [facility] albuterol (VENTOLIN) inhaler 2 Puff 2022-11 07:20: 25 Yes 2{puff} 2 Puff, Inhalation , Q4HPRN, Starting on Fri10/14/23 at 0120, Until Discontinu ed, Routine, Wheezing, Shortness of Breath [facility] cefTRIAXone (ROCEPHIN) 1,000 mg in NaCl 0.9% (NS) 100 mL MINI-BAG 2022-11 04:00: 00 10-19 03:59 :00 Yes 1000mg 1,000 mg, IV Piggyback, Q24H ABX, 5 doses, First dose on Fri10/13/23 at 2200, Last dose on Fri10/17/23 at 2200, Administer over 30 Minutes, 100 mL
Reas on for Anti-Infec tive: Empiric Therapy for Suspected Infection< br>Empiric Therapy Site: Urine
D uration of therapy: 5 days [facility] NaCl 0.9% (NS) IV infusion 1,000 mL 2022-11 03:00: 00 Yes 1000mL at 125 mL/hr, IV Infusion, CONTINUOUS , Starting on Fri10/13/23 at 2100, Until Discontinu ed, Routine [facility] HYDROcodone -acetaminop hen (NORCO 5) 5-325 mg tablet 1 tablet 2022-11 02:46: 23 10-14 18:20 :18 No 1{tbl} 1 tablet, Oral, Q6HPRN, Starting on Fri10/13/23 at 2046, Until Fri10/14/23 at 1220, Routine, Pain (scale 4-6) [facility] ondansetron (ZOFRAN (PF)) injection 4 mg 2022-11 02:44: 32 Yes 4mg 4 mg, Slow IV Push, Q6HPRN, Starting on Fri10/13/23 at 2044, Until Discontinu ed, Routine, Nausea and Vomiting (N/V) [facility] ketorolac (TORADOL) injection 15 mg 2022-11 02:26: 58 10-14 18:20 :08 No 15mg 15 mg, Slow IV Push, Q6HPRN, Starting on Fri10/13/23 at 2025, Until Fri10/14/23 at 1220, Routine, Pain (scale 7-10) [facility] methocarbam oL 500 mg tablet 2022-11 00:00: 00 Yes [id number] 500mg Take 1 tablet by mouth 3 (three) times daily as needed for Pain (scale 4-6) or Pain (scale 7-10). [facility] sulfamethox azole-trime thoprim (BACTRIM DS) 800-160 mg per tablet 2022-11 00:00: 00 Yes [id number] 1{tbl} Take 1 tablet by mouth in the morning and 1 tablet in the evening. [facility] tamsulosin (FLOMAX) 0.4 mg 24 hr capsule 2022-11 00:00: 00 Yes [id number] .4mg Take 1 capsule by mouth in the morning. [facility] ketorolac 10 mg tablet 2022-11 00:00: 00 Yes [id number] 10mg Take 1 tablet by mouth every 6 (six) hours as needed for Pain (scale 7-10). [facility] gabapentin 100 mg capsule 2022-11 00:00: 00 Yes [id number] 200mg Take 2 capsules by mouth in the morning and 2 capsules in the evening. [facility] methocarbam oL 500 mg tablet 2022-11 00:00: 00 Yes [id number] 500mg Take 1 tablet by mouth 3 (three) times daily as needed for Pain (scale 4-6) or Pain (scale 7-10). [facility] sulfamethox azole-trime thoprim (BACTRIM DS) 800-160 mg per tablet 2022-11 00:00: 00 Yes [id number] 1{tbl} Take 1 tablet by mouth in the morning and 1 tablet in the evening. [facility] tamsulosin (FLOMAX) 0.4 mg 24 hr capsule 2022-11 00:00: 00 Yes [id number] .4mg Take 1 capsule by mouth in the morning. [facility] ketorolac 10 mg tablet 2022-11 00:00: 00 Yes [id number] 10mg Take 1 tablet by mouth every 6 (six) hours as needed for Pain (scale 7-10). [facility] gabapentin 100 mg capsule 2022-11 00:00: 00 Yes [id number] 200mg Take 2 capsules by mouth in the morning and 2 capsules in the evening. [facility] methocarbam oL 500 mg tablet 2022-11 00:00: 00 Yes [id number] 500mg Take 1 tablet by mouth 3 (three) times daily as needed for Pain (scale 4-6) or Pain (scale 7-10). [facility] sulfamethox azole-trime thoprim (BACTRIM DS) 800-160 mg per tablet 2022-11 00:00: 00 Yes [id number] 1{tbl} Take 1 tablet by mouth in the morning and 1 tablet in the evening. [facility] tamsulosin (FLOMAX) 0.4 mg 24 hr capsule 2022-11 00:00: 00 Yes [id number] .4mg Take 1 capsule by mouth in the morning. [facility] ketorolac 10 mg tablet 2022-11 00:00: 00 Yes [id number] 10mg Take 1 tablet by mouth every 6 (six) hours as needed for Pain (scale 7-10). [facility] gabapentin 100 mg capsule 2022-11 00:00: 00 Yes [id number] 200mg Take 2 capsules by mouth in the morning and 2 capsules in the evening. [facility] methocarbam oL 500 mg tablet 2022-11 00:00: 00 Yes [id number] 500mg Take 1 tablet by mouth 3 (three) times daily as needed for Pain (scale 4-6) or Pain (scale 7-10). [facility] sulfamethox azole-trime thoprim (BACTRIM DS) 800-160 mg per tablet 2022-11 00:00: 00 Yes [id number] 1{tbl} Take 1 tablet by mouth in the morning and 1 tablet in the evening. [facility] tamsulosin (FLOMAX) 0.4 mg 24 hr capsule 2022-11 00:00: 00 Yes [id number] .4mg Take 1 capsule by mouth in the morning. [facility] ketorolac 10 mg tablet 2022-11 00:00: 00 Yes [id number] 10mg Take 1 tablet by mouth every 6 (six) hours as needed for Pain (scale 7-10). [facility] gabapentin 100 mg capsule 2022-11 00:00: 00 Yes [id number] 200mg Take 2 capsules by mouth in the morning and 2 capsules in the evening. [facility] methocarbam oL 500 mg tablet 2022-11 00:00: 00 Yes [id number] 500mg Take 1 tablet by mouth 3 (three) times daily as needed for Pain (scale 4-6) or Pain (scale 7-10). [facility] sulfamethox azole-trime thoprim (BACTRIM DS) 800-160 mg per tablet 2022-11 00:00: 00 Yes [id number] 1{tbl} Take 1 tablet by mouth in the morning and 1 tablet in the evening. [facility] tamsulosin (FLOMAX) 0.4 mg 24 hr capsule 2022-11 00:00: 00 Yes [id number] .4mg Take 1 capsule by mouth in the morning. [facility] ketorolac 10 mg tablet 2022-11 00:00: 00 Yes [id number] 10mg Take 1 tablet by mouth every 6 (six) hours as needed for Pain (scale 7-10). [facility] gabapentin 100 mg capsule 2022-11 00:00: 00 Yes [id number] 200mg Take 2 capsules by mouth in the morning and 2 capsules in the evening. [facility] methocarbam oL 500 mg tablet 2022-11 00:00: 00 Yes [id number] 500mg Take 1 tablet by mouth 3 (three) times daily as needed for Pain (scale 4-6) or Pain (scale 7-10). [facility] sulfamethox azole-trime thoprim (BACTRIM DS) 800-160 mg per tablet 2022-11 00:00: 00 Yes [id number] 1{tbl} Take 1 tablet by mouth in the morning and 1 tablet in the evening. [facility] tamsulosin (FLOMAX) 0.4 mg 24 hr capsule 2022-11 00:00: 00 Yes [id number] .4mg Take 1 capsule by mouth in the morning. [facility] ketorolac 10 mg tablet 2022-11 00:00: 00 Yes [id number] 10mg Take 1 tablet by mouth every 6 (six) hours as needed for Pain (scale 7-10). [facility] gabapentin 100 mg capsule 2022-11 00:00: 00 Yes [id number] 200mg Take 2 capsules by mouth in the morning and 2 capsules in the evening. [facility] methocarbam oL 500 mg tablet 2022-11 00:00: 00 Yes [id number] 500mg Take 1 tablet by mouth 3 (three) times daily as needed for Pain (scale 4-6) or Pain (scale 7-10). [facility] sulfamethox azole-trime thoprim (BACTRIM DS) 800-160 mg per tablet 2022-11 00:00: 00 Yes [id number] 1{tbl} Take 1 tablet by mouth in the morning and 1 tablet in the evening. [facility] tamsulosin (FLOMAX) 0.4 mg 24 hr capsule 2022-11 00:00: 00 Yes [id number] .4mg Take 1 capsule by mouth in the morning. [facility] ketorolac 10 mg tablet 2022-11 00:00: 00 Yes [id number] 10mg Take 1 tablet by mouth every 6 (six) hours as needed for Pain (scale 7-10). [facility] gabapentin 100 mg capsule 2022-11 00:00: 00 Yes [id number] 200mg Take 2 capsules by mouth in the morning and 2 capsules in the evening. [facility] acetaminoph en-codeine 300-30 mg tablet 2022-11 00:00: 00 10-18 05:59 :00 Yes [id number] 1{tbl} Take 1 tablet by mouth every 6 (six) hours as needed for Pain (scale 7-10) for up to 3 days. Indication s: acute pain [facility] meperidine (DEMEROL) injection 12.5 mg 2022-11 00:24: 18 Yes 12.5mg 12.5 mg, Slow IV Push, PRN, 1 dose, Starting on Fri10/10/23 at 1824, Until Discontinu ed, Routine, Shivering, PACU
En ter indication for use: Reduce postoperat [place] shivering< br>hospitality team member approving Restricted medication : ROSARIO HOFFMANN [facility] HYDROmorphO ne (DILAUDID) injection 0.2 mg 2022-11 00:24: 18 Yes .2mg 0.2 mg, Slow IV Push, Q5MIN PRN, 10 doses, Starting on Fri10/10/23 at 1824, Until Discontinu ed, Routine, Pain (scale 7-10), PACU
Us e approved by (Faculty): PACU USE -ANESTHESI A SERVICE-HY DROMORPHON E INJECTIONS [facility] FENTanyl PF (SUBLIMAZE (PF)) injection 25 mcg 2022-11 00:24: 18 Yes 25ug 25 mcg, Slow IV Push, Q5MIN PRN, 4 doses, Starting on Fri10/10/23 at 1824, Until Discontinu ed, Routine, Pain (scale 4-6), PACU [facility] meperidine (DEMEROL) injection 12.5 mg 2022-11 00:24: 18 10-11 03:13 :57 No 12.5mg 12.5 mg, Slow IV Push, PRN, 1 dose, Starting on Fri10/10/23 at 1824, Until Fri10/10/23 at 3, Routine, Shivering, PACU
En ter indication for use: Reduce postoperat [place] shivering< br>hospitality team member approving Restricted medication : ROSARIO HOFFMANN [facility] HYDROmorphO ne (DILAUDID) injection 0.2 mg 2022-11 00:24: 18 10-11 03:13 :57 No .2mg 0.2 mg, Slow IV Push, Q5MIN PRN, 10 doses, Starting on Fri10/10/23 at 1824, Until Fri10/10/23 at 3, Routine, Pain (scale 7-10), PACU
Us e approved by (Faculty): PACU USE -ANESTHESI A SERVICE-HY DROMORPHON E INJECTIONS [facility] FENTanyl PF (SUBLIMAZE (PF)) injection 25 mcg 2022-11 00:24: 18 10-11 03:13 :57 No 25ug 25 mcg, Slow IV Push, Q5MIN PRN, 4 doses, Starting on Fri10/10/23 at 1824, Until Fri10/10/23 at 3, Routine, Pain (scale 4-6), PACU [facility] lactated ringers IV infusion 1,000 mL 2022-11 20:00: 00 10-10 20:24 :00 No 1000mL at 42 mL/hr, 1,000 mL, IV Infusion, ONCE, 1 dose, On Fri10/10/23 at 1400, Routine, DSU Pre-op [facility] lactated ringers IV infusion 1,000 mL 2022-11 20:00: 00 10-10 20:24 :00 No 1000mL at 42 mL/hr, 1,000 mL, IV Infusion, ONCE, 1 dose, On Fri10/10/23 at 1400, Routine, DSU Pre-op [facility] FLUoxetine 40 mg capsule 2022-11 19:08: 55 Yes 40mg Take 1 capsule by mouth every morning. [facility] ubrogepant (UBRELVY) 100 mg Tab 2022-11 19:08: 55 Yes Ubrelvy 100 mg tablet Take 1 tablet by oral route as needed. [facility] FLUoxetine 40 mg capsule 2022-11 19:08: 55 Yes 40mg Take 1 capsule by mouth every morning. [facility] ubrogepant (UBRELVY) 100 mg Tab 2022-11 19:08: 55 Yes Ubrelvy 100 mg tablet Take 1 tablet by oral route as needed. [facility] FLUoxetine 40 mg capsule 2022-11 19:08: 55 Yes 40mg Take 1 capsule by mouth every morning. [facility] ubrogepant (UBRELVY) 100 mg Tab 2022-11 19:08: 55 Yes Ubrelvy 100 mg tablet Take 1 tablet by oral route as needed. [facility] FLUoxetine 40 mg capsule 2022-11 19:08: 55 Yes 40mg Take 1 capsule by mouth every morning. [facility] ubrogepant (UBRELVY) 100 mg Tab 2022-11 19:08: 55 Yes Ubrelvy 100 mg tablet Take 1 tablet by oral route as needed. [facility] ketorolac 10 mg tablet 2022-11 00:00: 00 Yes [id number] 10mg Take 1 tablet by mouth every 6 (six) hours as needed for Pain (scale 7-10) (Alternate with ibuprofen if taking concurrent ly). [facility] ketorolac 10 mg tablet 2022-11 00:00: 00 Yes [id number] 10mg Take 1 tablet by mouth every 6 (six) hours as needed for Pain (scale 7-10) (Alternate with ibuprofen if taking concurrent ly). [facility] ketorolac 10 mg tablet 2022-11 00:00: 00 Yes [id number] 10mg Take 1 tablet by mouth every 6 (six) hours as needed for Pain (scale 7-10) (Alternate with ibuprofen if taking concurrent ly). [facility] ketorolac 10 mg tablet 2022-11 00:00: 00 Yes [id number] 10mg Take 1 tablet by mouth every 6 (six) hours as needed for Pain (scale 7-10) (Alternate with ibuprofen if taking concurrent ly). [facility] tamsulosin (FLOMAX) 0.4 mg 24 hr capsule 2022-11 00:00: 00 10-16 05:59 :00 Yes [id number] .4mg Take 1 capsule by mouth in the morning for 5 days. [facility] tamsulosin (FLOMAX) 0.4 mg 24 hr capsule 2022-11 00:00: 00 10-16 05:59 :00 Yes [id number] .4mg Take 1 capsule by mouth in the morning for 5 days. [facility] tamsulosin (FLOMAX) 0.4 mg 24 hr capsule 2022-11 00:00: 00 10-16 05:59 :00 Yes [id number] .4mg Take 1 capsule by mouth in the morning for 5 days. [facility] tamsulosin (FLOMAX) 0.4 mg 24 hr capsule 2022-11 00:00: 00 10-16 05:59 :00 Yes [id number] .4mg Take 1 capsule by mouth in the morning for 5 days. [facility] tamsulosin (FLOMAX) 0.4 mg 24 hr capsule 2022-11 00:00: 00 10-14 00:00 :00 No [id number] .4mg Take 1 capsule by mouth in the morning for 5 days. [facility] ketorolac 10 mg tablet 2022-11 00:00: 00 10-14 00:00 :00 No [id number] 10mg Take 1 tablet by mouth every 6 (six) hours as needed for Pain (scale 7-10) (Alternate with ibuprofen if taking concurrent ly). [facility] FLUoxetine 20 mg capsule 2022-11 08:06: 10-09 00:00 :00 No fluoxetine 20 mg capsule TAKE 1 CAPSULE BY MOUTH EVERY DAY [facility] FLUoxetine 20 mg capsule 2022-11 08:06: 10-09 00:00 :00 No fluoxetine 20 mg capsule TAKE 1 CAPSULE BY MOUTH EVERY DAY [facility] escitalopra m oxalate 20 mg tablet 2022-11 10:50: 05 10-08 00:00 :00 No escitalopr am 20 mg tablet [facility] escitalopra m oxalate 20 mg tablet 2022-11 10:50: 05 10-08 00:00 :00 No escitalopr am 20 mg tablet [facility] escitalopra m oxalate 20 mg tablet 2022-11 10:50: 05 10-08 00:00 :00 No escitalopr am 20 mg tablet [facility] dicyclomine 20 mg tablet 2022-11 10:49: 59 10-08 00:00 :00 No dicyclomin e 20 mg tablet TAKE 1 TABLET BY MOUTH EVERY 6 HOURS NEEDED [facility] dicyclomine 20 mg tablet 2022-11 10:49: 59 10-08 00:00 :00 No dicyclomin e 20 mg tablet TAKE 1 TABLET BY MOUTH EVERY 6 HOURS NEEDED [facility] dicyclomine 20 mg tablet 2022-11 10:49: 59 10-08 00:00 :00 No dicyclomin e 20 mg tablet TAKE 1 TABLET BY MOUTH EVERY 6 HOURS NEEDED [facility] busPIRone 5 mg tablet 2022-11 10:49: 56 10-08 00:00 :00 No buspirone 5 mg tablet [facility] busPIRone 5 mg tablet 2022-11 10:49: 56 10-08 00:00 :00 No buspirone 5 mg tablet [facility] busPIRone 5 mg tablet 2022-11 10:49: 56 10-08 00:00 :00 No buspirone 5 mg tablet [facility] ARIPiprazol e 5 mg tablet 2022-11 10:49: 47 10-08 00:00 :00 No aripiprazo le 5 mg tablet [facility] ARIPiprazol e 5 mg tablet 2022-11 10:49: 47 10-08 00:00 :00 No aripiprazo le 5 mg tablet [facility] ARIPiprazol e 5 mg tablet 2022-11 10:49: 47 10-08 00:00 :00 No aripiprazo le 5 mg tablet [facility] albuterol 90 mcg/actuati on inhaler 2022-11 10:49: 40 10-08 00:00 :00 No 2{puff} Inhale 2 Puffs every 6 (six) hours as needed. [facility] albuterol 90 mcg/actuati on inhaler 2022-11 10:49: 40 10-08 00:00 :00 No 2{puff} Inhale 2 Puffs every 6 (six) hours as needed. [facility] albuterol 90 mcg/actuati on inhaler 2022-11 10:49: 40 10-08 00:00 :00 No 2{puff} Inhale 2 Puffs every 6 (six) hours as needed. [facility] albuterol 2.5 mg /3 mL (0.083 %) nebulizer solution 2022-11 10:49: 34 10-08 00:00 :00 No 2.5mg Inhale 3 mL every 4 (four) hours as needed. [facility] albuterol 2.5 mg /3 mL (0.083 %) nebulizer solution 2022-11 10:49: 34 10-08 00:00 :00 No 2.5mg Inhale 3 mL every 4 (four) hours as needed. [facility] albuterol 2.5 mg /3 mL (0.083 %) nebulizer solution 2022-11 10:49: 34 10-08 00:00 :00 No 2.5mg Inhale 3 mL every 4 (four) hours as needed. [facility] ondansetron 4 mg tablet 2022-11 08:44: 57 10-08 00:00 :00 No ondansetro n HCl 4 mg tablet TAKE 1 TABLET BY MOUTH EVERY 12 HOURS NEEDED [facility] ondansetron 4 mg tablet 2022-11 08:44: 57 10-08 00:00 :00 No ondansetro n HCl 4 mg tablet TAKE 1 TABLET BY MOUTH EVERY 12 HOURS NEEDED [facility] ondansetron 4 mg tablet 2022-11 08:44: 57 10-08 00:00 :00 No ondansetro n HCl 4 mg tablet TAKE 1 TABLET BY MOUTH EVERY 12 HOURS NEEDED [facility] ondansetron 4 mg tablet 2022-11 08:44: 57 10-08 00:00 :00 No ondansetro n HCl 4 mg tablet TAKE 1 TABLET BY MOUTH EVERY 12 HOURS NEEDED [facility] ondansetron 4 mg tablet 2022-11 08:44: 57 10-08 00:00 :00 No ondansetro n HCl 4 mg tablet TAKE 1 TABLET BY MOUTH EVERY 12 HOURS NEEDED [facility] ondansetron 4 mg tablet 2022-11 08:44: 57 10-08 00:00 :00 No ondansetro n HCl 4 mg tablet TAKE 1 TABLET BY MOUTH EVERY 12 HOURS NEEDED [facility] chlorhexidi ne 0.12 % mouthwash 2022-11 08:43: 33 10-08 00:00 :00 No chlorhexid ine gluconate 0.12 % mouthwash USE TWICE DAILY [facility] chlorhexidi ne 0.12 % mouthwash 2022-11 08:43: 10-08 00:00 :00 No chlorhexid ine gluconate 0.12 % mouthwash USE TWICE DAILY [facility] chlorhexidi ne 0.12 % mouthwash 2022-11 08:43: 33 10-08 00:00 :00 No chlorhexid ine gluconate 0.12 % mouthwash USE TWICE DAILY [facility] chlorhexidi ne 0.12 % mouthwash 2022-11 08:43: 33 10-08 00:00 :00 No chlorhexid ine gluconate 0.12 % mouthwash USE TWICE DAILY [facility] chlorhexidi ne 0.12 % mouthwash 2022-11 08:43: 33 10-08 00:00 :00 No chlorhexid ine gluconate 0.12 % mouthwash USE TWICE DAILY [facility] chlorhexidi ne 0.12 % mouthwash 2022-11 08:43: 33 10-08 00:00 :00 No chlorhexid ine gluconate 0.12 % mouthwash USE TWICE DAILY [facility] diphenoxyla te-atropine 2.5-0.025 mg tablet 2022-11 08:43: 10-08 00:00 :00 No diphenoxyl ate-atropi ne 2.5 mg-0.025 mg tablet [facility] diphenoxyla te-atropine 2.5-0.025 mg tablet 2022-11 08:43: 30 10-08 00:00 :00 No diphenoxyl ate-atropi ne 2.5 mg-0.025 mg tablet [facility] diphenoxyla te-atropine 2.5-0.025 mg tablet 2022-11 08:43: 30 10-08 00:00 :00 No diphenoxyl ate-atropi ne 2.5 mg-0.025 mg tablet [facility] diphenoxyla te-atropine 2.5-0.025 mg tablet 2022-11 08:43: 30 10-08 00:00 :00 No diphenoxyl ate-atropi ne 2.5 mg-0.025 mg tablet [facility] diphenoxyla te-atropine 2.5-0.025 mg tablet 2022-11 08:43: 30 10-08 00:00 :00 No diphenoxyl ate-atropi ne 2.5 mg-0.025 mg tablet [facility] diphenoxyla te-atropine 2.5-0.025 mg tablet 2022-11 08:43: 30 10-08 00:00 :00 No diphenoxyl ate-atropi ne 2.5 mg-0.025 mg tablet [facility] fluconazole 200 mg tablet 2022-11 08:43: 15 10-08 00:00 :00 No fluconazol e 200 mg tablet [facility] fluconazole 200 mg tablet 2022-11 08:43: 15 10-08 00:00 :00 No fluconazol e 200 mg tablet [facility] fluconazole 200 mg tablet 2022-11 08:43: 15 10-08 00:00 :00 No fluconazol e 200 mg tablet [facility] fluconazole 200 mg tablet 2022-11 08:43: 15 10-08 00:00 :00 No fluconazol e 200 mg tablet [facility] fluconazole 200 mg tablet 2022-11 08:43: 15 10-08 00:00 :00 No fluconazol e 200 mg tablet [facility] fluconazole 200 mg tablet 2022-11 08:43: 15 10-08 00:00 :00 No fluconazol e 200 mg tablet [facility] iron-FA-dha -epa-FAD-NA DH-be-mv (ENLYTE) 1.5 mg iron- 8.73 mg CpID 2022-11 08:42: 37 10-08 00:00 :00 No EnLyte 1.5 mg iron-8.73 mg capsule,im mediate - delay release [facility] iron-FA-dha -epa-FAD-NA DH-be-mv (ENLYTE) 1.5 mg iron- 8.73 mg CpID 2022-11 08:42: 37 10-08 00:00 :00 No EnLyte 1.5 mg iron-8.73 mg capsule,im mediate - delay release [facility] iron-FA-dha -epa-FAD-NA DH-be-mv (ENLYTE) 1.5 mg iron- 8.73 mg CpID 2022-11 08:42: 37 10-08 00:00 :00 No EnLyte 1.5 mg iron-8.73 mg capsule,im mediate - delay release [facility] iron-FA-dha -epa-FAD-NA DH-be-mv (ENLYTE) 1.5 mg iron- 8.73 mg CpID 2022-11 08:42: 37 10-08 00:00 :00 No EnLyte 1.5 mg iron-8.73 mg capsule,im mediate - delay release [facility] iron-FA-dha -epa-FAD-NA DH-be-mv (ENLYTE) 1.5 mg iron- 8.73 mg CpID 2022-11 08:42: 37 10-08 00:00 :00 No EnLyte 1.5 mg iron-8.73 mg capsule,im mediate - delay release [facility] iron-FA-dha -epa-FAD-NA DH-be-mv (ENLYTE) 1.5 mg iron- 8.73 mg CpID 2022-11 08:42: 37 10-08 00:00 :00 No EnLyte 1.5 mg iron-8.73 mg capsule,im mediate - delay release [facility] lurasidone 20 mg tablet 2022-11 08:42: 34 10-08 00:00 :00 No Latuda 20 mg tablet [facility] lurasidone 20 mg tablet 2022-11 08:42: 34 10-08 00:00 :00 No Latuda 20 mg tablet [facility] lurasidone 20 mg tablet 2022-11 08:42: 34 10-08 00:00 :00 No Latuda 20 mg tablet [facility] lurasidone 20 mg tablet 2022-11 08:42: 34 10-08 00:00 :00 No Latuda 20 mg tablet [facility] lurasidone 20 mg tablet 2022-11 08:42: 34 10-08 00:00 :00 No Latuda 20 mg tablet [facility] lurasidone 20 mg tablet 2022-11 08:42: 34 10-08 00:00 :00 No Latuda 20 mg tablet [facility] ondansetron 4 mg disintegrat ing tablet 2022-11 08:41: 45 10-08 00:00 :00 No ondansetro n 4 mg disintegra ting tablet [facility] ondansetron 4 mg disintegrat ing tablet 2022-11 08:41: 45 10-08 00:00 :00 No ondansetro n 4 mg disintegra ting tablet [facility] ondansetron 4 mg disintegrat ing tablet 2022-11 08:41: 45 10-08 00:00 :00 No ondansetro n 4 mg disintegra ting tablet [facility] ondansetron 4 mg disintegrat ing tablet 2022-11 08:41: 45 10-08 00:00 :00 No ondansetro n 4 mg disintegra ting tablet [facility] ondansetron 4 mg disintegrat ing tablet 2022-11 08:41: 45 10-08 00:00 :00 No ondansetro n 4 mg disintegra ting tablet [facility] ondansetron 4 mg disintegrat ing tablet 2022-11 08:41: 45 10-08 00:00 :00 No ondansetro n 4 mg disintegra ting tablet [facility] prazosin 1 mg capsule 2022-11 08:41: 33 10-08 00:00 :00 No prazosin 1 mg capsule [facility] prazosin 1 mg capsule 2022-11 08:41: 33 10-08 00:00 :00 No prazosin 1 mg capsule [facility] prazosin 1 mg capsule 2022-11 08:41: 33 10-08 00:00 :00 No prazosin 1 mg capsule [facility] prazosin 1 mg capsule 2022-11 08:41: 33 10-08 00:00 :00 No prazosin 1 mg capsule [facility] prazosin 1 mg capsule 2022-11 08:41: 33 10-08 00:00 :00 No prazosin 1 mg capsule [facility] prazosin 1 mg capsule 2022-11 08:41: 33 10-08 00:00 :00 No prazosin 1 mg capsule [facility] predniSONE 20 mg tablet 2022-11 08:41: 18 10-08 00:00 :00 No prednisone 20 mg tablet [facility] predniSONE 20 mg tablet 2022-11 08:41: 18 10-08 00:00 :00 No prednisone 20 mg tablet [facility] predniSONE 20 mg tablet 2022-11 08:41: 18 10-08 00:00 :00 No prednisone 20 mg tablet [facility] predniSONE 20 mg tablet 2022-11 08:41: 18 10-08 00:00 :00 No prednisone 20 mg tablet [facility] predniSONE 20 mg tablet 2022-11 08:41: 18 10-08 00:00 :00 No prednisone 20 mg tablet [facility] predniSONE 20 mg tablet 2022-11 08:41: 18 10-08 00:00 :00 No prednisone 20 mg tablet [facility] Sodium Fluoride, Dental Gel, 1.1 % Crea 2022-11 08:41: 05 10-08 00:00 :00 No Denta 5000 Plus 1.1 % cream USE TWICE A DAY IN THE MORNING AND AT NIGHT. DO NOT EAT OR DRINK FOR AT LEAST 30 MINS [facility] Sodium Fluoride, Dental Gel, 1.1 % Crea 2022-11 08:41: 05 10-08 00:00 :00 No Denta 5000 Plus 1.1 % cream USE TWICE A DAY IN THE MORNING AND AT NIGHT. DO NOT EAT OR DRINK FOR AT LEAST 30 MINS [facility] Sodium Fluoride, Dental Gel, 1.1 % Crea 2022-11 08:41: 05 10-08 00:00 :00 No Denta 5000 Plus 1.1 % cream USE TWICE A DAY IN THE MORNING AND AT NIGHT. DO NOT EAT OR DRINK FOR AT LEAST 30 MINS [facility] Sodium Fluoride, Dental Gel, 1.1 % Crea 2022-11 08:41: 10-08 00:00 :00 No Denta 5000 Plus 1.1 % cream USE TWICE A DAY IN THE MORNING AND AT NIGHT. DO NOT EAT OR DRINK FOR AT LEAST 30 MINS [facility] Sodium Fluoride, Dental Gel, 1.1 % Crea 2022-11 08:41: 10-08 00:00 :00 No Denta 5000 Plus 1.1 % cream USE TWICE A DAY IN THE MORNING AND AT NIGHT. DO NOT EAT OR DRINK FOR AT LEAST 30 MINS [facility] Sodium Fluoride, Dental Gel, 1.1 % Crea 2022-11 08:41: 10-08 00:00 :00 No Denta 5000 Plus 1.1 % cream USE TWICE A DAY IN THE MORNING AND AT NIGHT. DO NOT EAT OR DRINK FOR AT LEAST 30 MINS [facility] SUMAtriptan 50 mg tablet 2022-11 08:41: 10-08 00:00 :00 No sumatripta n 50 mg tablet [facility] 2022-11 08:41: 02 10-08 00:00 :00 No sumatripta n 50 mg tablet [facility] SUMAtriptan 50 mg tablet 2022-11 08:41: 02 10-08 00:00 :00 No sumatripta n 50 mg tablet [facility] SUMAtriptan 50 mg tablet 2022-11 08:41: 02 10-08 00:00 :00 No sumatripta n 50 mg tablet [facility] SUMAtriptan 50 mg tablet 2022-11 08:41: 02 10-08 00:00 :00 No sumatripta n 50 mg tablet [facility] SUMAtriptan 50 mg tablet 2022-11 08:41: 02 10-08 00:00 :00 No sumatripta n 50 mg tablet [facility] tamsulosin 0.4 mg 24 hr capsule 2022-11 00:00: 00 Yes [id number] .4mg Take 1 capsule by mouth in the morning. [facility] ondansetron 4 mg tablet 2022-11 00:00: 00 Yes [id number] 4mg Take 1 tablet by mouth every 8 (eight) hours as needed for Nausea and Vomiting (N/V). [facility] tamsulosin 0.4 mg 24 hr capsule 2022-11 00:00: 00 Yes [id number] .4mg Take 1 capsule by mouth in the morning. [facility] ondansetron 4 mg tablet 2022-11 00:00: 00 Yes [id number] 4mg Take 1 tablet by mouth every 8 (eight) hours as needed for Nausea and Vomiting (N/V). [facility] tamsulosin 0.4 mg 24 hr capsule 2022-11 00:00: 00 Yes [id number] .4mg Take 1 capsule by mouth in the morning. [facility] ondansetron 4 mg tablet 2022-11 00:00: 00 Yes [id number] 4mg Take 1 tablet by mouth every 8 (eight) hours as needed for Nausea and Vomiting (N/V). [facility] tamsulosin 0.4 mg 24 hr capsule 2022-11 00:00: 00 Yes [id number] .4mg Take 1 capsule by mouth in the morning. [facility] ondansetron 4 mg tablet 2022-11 00:00: 00 Yes [id number] 4mg Take 1 tablet by mouth every 8 (eight) hours as needed for Nausea and Vomiting (N/V). [facility] tamsulosin 0.4 mg 24 hr capsule 2022-11 00:00: 00 Yes [id number] .4mg Take 1 capsule by mouth in the morning. [facility] ondansetron 4 mg tablet 2022-11 00:00: 00 Yes [id number] 4mg Take 1 tablet by mouth every 8 (eight) hours as needed for Nausea and Vomiting (N/V). [facility] tamsulosin 0.4 mg 24 hr capsule 2022-11 00:00: 00 Yes [id number] .4mg Take 1 capsule by mouth in the morning. [facility] ondansetron 4 mg tablet 2022-11 00:00: 00 Yes [id number] 4mg Take 1 tablet by mouth every 8 (eight) hours as needed for Nausea and Vomiting (N/V). [facility] tamsulosin 0.4 mg 24 hr capsule 2022-11 00:00: 00 Yes [id number] .4mg Take 1 capsule by mouth in the morning. [facility] ondansetron 4 mg tablet 2022-11 00:00: 00 Yes [id number] 4mg Take 1 tablet by mouth every 8 (eight) hours as needed for Nausea and Vomiting (N/V). [facility] tamsulosin 0.4 mg 24 hr capsule 2022-11 00:00: 00 Yes [id number] .4mg Take 1 capsule by mouth in the morning. [facility] ondansetron 4 mg tablet 2022-11 00:00: 00 Yes [id number] 4mg Take 1 tablet by mouth every 8 (eight) hours as needed for Nausea and Vomiting (N/V). [facility] tamsulosin 0.4 mg 24 hr capsule 2022-11 00:00: 00 Yes [id number] .4mg Take 1 capsule by mouth in the morning. [facility] ondansetron 4 mg tablet 2022-11 00:00: 00 Yes [id number] 4mg Take 1 tablet by mouth every 8 (eight) hours as needed for Nausea and Vomiting (N/V). [facility] tamsulosin 0.4 mg 24 hr capsule 2022-11 00:00: 00 Yes [id number] .4mg Take 1 capsule by mouth in the morning. [facility] ondansetron 4 mg tablet 2022-11 00:00: 00 Yes [id number] 4mg Take 1 tablet by mouth every 8 (eight) hours as needed for Nausea and Vomiting (N/V). [facility] ondansetron 4 mg tablet 2022-11 00:00: 00 Yes [id number] 4mg Take 1 tablet by mouth every 8 (eight) hours as needed for Nausea and Vomiting (N/V). [facility] ondansetron 4 mg tablet 2022-11 00:00: 00 Yes [id number] 4mg Take 1 tablet by mouth every 8 (eight) hours as needed for Nausea and Vomiting (N/V). [facility] ondansetron 4 mg tablet 2022-11 00:00: 00 Yes [id number] 4mg Take 1 tablet by mouth every 8 (eight) hours as needed for Nausea and Vomiting (N/V). [facility] ondansetron 4 mg tablet 2022-11 00:00: 00 Yes [id number] 4mg Take 1 tablet by mouth every 8 (eight) hours as needed for Nausea and Vomiting (N/V). [facility] ondansetron 4 mg tablet 2022-11 00:00: 00 Yes [id number] 4mg Take 1 tablet by mouth every 8 (eight) hours as needed for Nausea and Vomiting (N/V). [facility] ondansetron 4 mg tablet 2022-11 00:00: 00 Yes [id number] 4mg Take 1 tablet by mouth every 8 (eight) hours as needed for Nausea and Vomiting (N/V). [facility] ondansetron 4 mg tablet 2022-11 00:00: 00 Yes [id number] 4mg Take 1 tablet by mouth every 8 (eight) hours as needed for Nausea and Vomiting (N/V). [facility] tamsulosin 0.4 mg 24 hr capsule 2022-11 00:00: 00 10-14 00:00 :00 No [id number] .4mg Take 1 capsule by mouth in the morning. [facility] ketorolac (TORADOL) injection 15 mg 2022-11 05:45: 00 10-06 06:04 :00 No 15mg 15 mg, Slow IV Push, ONCE, 1 dose, On 10/05/23 at 2345, Routine [facility] HYDROcodone -acetaminop hen (NORCO 5) 5-325 mg tablet 1 tablet 2022-11 04:15: 00 10-06 04:06 :00 No 1{tbl} 1 tablet, Oral, ONCE, 1 dose, On 10/05/23 at 2215, [facility] naproxen 500 mg EC tablet 2022-11 00:00: 00 Yes [id number] 500mg Take 1 tablet by mouth as needed for Pain (scale 4-6). [facility] naproxen 500 mg EC tablet 2022-11 00:00: 00 Yes [id number] 500mg Take 1 tablet by mouth as needed for Pain (scale 4-6). [facility] naproxen 500 mg EC tablet 2022-11 00:00: 00 Yes [id number] 500mg Take 1 tablet by mouth as needed for Pain (scale 4-6). [facility] naproxen 500 mg EC tablet 2022-11 00:00: 00 Yes [id number] 500mg Take 1 tablet by mouth as needed for Pain (scale 4-6). [facility] naproxen 500 mg EC tablet 2022-11 00:00: 00 Yes [id number] 500mg Take 1 tablet by mouth as needed for Pain (scale 4-6). [facility] naproxen 500 mg EC tablet 2022-11 00:00: 00 Yes [id number] 500mg Take 1 tablet by mouth as needed for Pain (scale 4-6). [facility] naproxen 500 mg EC tablet 2022-11 00:00: 00 Yes [id number] 500mg Take 1 tablet by mouth as needed for Pain (scale 4-6). [facility] naproxen 500 mg EC tablet 2022-11 00:00: 00 Yes [id number] 500mg Take 1 tablet by mouth as needed for Pain (scale 4-6). [facility] naproxen 500 mg EC tablet 2022-11 00:00: 00 Yes [id number] 500mg Take 1 tablet by mouth as needed for Pain (scale 4-6). [facility] naproxen 500 mg EC tablet 2022-11 00:00: 00 Yes [id number] 500mg Take 1 tablet by mouth as needed for Pain (scale 4-6). [facility] naproxen 500 mg EC tablet 2022-11 00:00: 00 Yes [id number] 500mg Take 1 tablet by mouth as needed for Pain (scale 4-6). [facility] naproxen 500 mg EC tablet 2022-11 00:00: 00 10-14 00:00 :00 No [id number] 500mg Take 1 tablet by mouth as needed for Pain (scale 4-6). [facility] T[facility], 200-300 mg tablet 2022-11 016 00:00: 00 Yes 1{tbl} Take 1 tablet by mouth every 24 (twenty-fo ur) hours. [facility], TDF, 200-300 mg tablet 2022-11 016 00:00: 00 Yes 1{tbl} Take 1 tablet by mouth every 24 (twenty-fo ur) hours. [facility] ne-tenofovi [facility], TDF, 200-300 mg tablet 2022-11 0-16 00:00: 00 Yes 1{tbl} Take 1 tablet by mouth every 24 (twenty-fo ur) hours. [facility] ne-tenofovi r, TDF, 200-300 mg tablet 2022-11 0-16 00:00: 00 Yes 1{tbl} Take 1 tablet by mouth every 24 (twenty-fo ur) hours. [facility] ne-tenofovi r, TDF, 200-300 mg tablet 2022-11 0-16 00:00: 00 Yes 1{tbl} Take 1 tablet by mouth every 24 (twenty-fo ur) hours. [facility] medroxyPROG ESTERone (DEPO-PROVE RA) syringe 150 mg 2022-11 0- 14:00: 00 08-15 13:03 :00 No [id number] 150mg [facility] medroxyPROG ESTERone (DEPO-PROVE RA) syringe 150 mg 2022-11 0-06 14:00: 00 08-15 13:03 :00 No [id number] 150mg 150 mg, Intramuscu lar, ONCE, 1 dose, On Fri08/15/23 at 0900, Routine [facility] medroxyPROG ESTERone (DEPO-PROVE RA) syringe 150 mg 05-14 21:30: 00 05-14 20:47 :00 No [id number] 150mg [facility] medroxyPROG ESTERone (DEPO-PROVE RA) syringe 150 mg 05-14 21:30: 00 05-14 20:47 :00 No [id number] 150mg 150 mg, Intramuscu lar, ONCE, 1 dose, On Fri05/14/23 at 1630, Routine [facility] medroxyPROG ESTERone (DEPO-PROVE RA) syringe 150 mg 02-18 21:15: 00 02-18 20:22 :00 No [id number] 150mg [facility] medroxyPROG ESTERone (DEPO-PROVE RA) syringe 150 mg 02-18 21:15: 00 02-18 20:22 :00 No [id number] 150mg 150 mg, Intramuscu lar, ONCE, 1 dose, On Fri02/18/23 at 1615, [facility]ine [facility] albuterol 90 mcg/actuati on inhaler 02-18 15:20: 25 Yes 2{puff} Inhale 2 Puffs every 6 (six) hours as needed. [facility] albuterol 2.5 mg /3 mL (0.083 %) nebulizer solution 02-18 15:20: 25 Yes 2.5mg Inhale 3 mL every 4 (four) hours as needed. [facility] SUMAtriptan 50 mg tablet 02-18 15:20: 25 Yes sumatripta n 50 mg tablet [facility] albuterol 90 mcg/actuati on inhaler 02-18 15:20: 25 Yes 2{puff} Inhale 2 Puffs every 6 (six) hours as needed. [facility] albuterol 2.5 mg /3 mL (0.083 %) nebulizer solution 02-18 15:20: 25 Yes 2.5mg Inhale 3 mL every 4 (four) hours as needed. [facility] SUMAtriptan 50 mg tablet 02-18 15:20: 25 Yes sumatripta n 50 mg tablet [facility] albuterol 90 mcg/actuati on inhaler 02-18 15:20: 25 Yes 2{puff} Inhale 2 Puffs every 6 (six) hours as needed. [facility] albuterol 2.5 mg /3 mL (0.083 %) nebulizer solution 02-18 15:20: 25 Yes 2.5mg Inhale 3 mL every 4 (four) hours as needed. [facility] SUMAtriptan 50 mg tablet 02-18 15:20: 25 Yes sumatripta n 50 mg tablet [facility] albuterol 90 mcg/actuati on inhaler 02-18 15:20: 25 Yes 2{puff} Inhale 2 Puffs every 6 (six) hours as needed. [facility] albuterol 2.5 mg /3 mL (0.083 %) nebulizer solution 02-18 15:20: 25 Yes 2.5mg Inhale 3 mL every 4 (four) hours as needed. [facility] SUMAtriptan 50 mg tablet 02-18 15:20: 25 Yes sumatripta n 50 mg tablet [facility] albuterol 90 mcg/actuati on inhaler 02-18 15:20: 25 Yes 2{puff} Inhale 2 Puffs every 6 (six) hours as needed. [facility] albuterol 2.5 mg /3 mL (0.083 %) nebulizer solution 02-18 15:20: 25 Yes 2.5mg Inhale 3 mL every 4 (four) hours as needed. [facility] SUMAtriptan 50 mg tablet 02-18 15:20: 25 Yes sumatripta n 50 mg tablet [facility] albuterol 90 mcg/actuati on inhaler 02-18 15:20: 25 Yes 2{puff} Inhale 2 Puffs every 6 (six) hours as needed. [facility] albuterol 2.5 mg /3 mL (0.083 %) nebulizer solution 02-18 15:20: 25 Yes 2.5mg Inhale 3 mL every 4 (four) hours as needed. [facility] SUMAtriptan 50 mg tablet 02-18 15:20: 25 Yes sumatripta n 50 mg tablet [facility] 02-18 15:20: 25 Yes 2{puff} Inhale 2 Puffs every 6 (six) hours as needed. [facility] albuterol 2.5 mg /3 mL (0.083 %) nebulizer solution 02-18 15:20: 25 Yes 2.5mg Inhale 3 mL every 4 (four) hours as needed. [facility] m[facility]/actuati on inhaler 02-18 15:20: 25 Yes 2{puff} Inhale 2 Puffs every 6 (six) hours as needed. [facility] albuterol 2.5 mg /3 mL (0.083 %) nebulizer solution 02-18 15:20: 25 Yes 2.5mg Inhale 3 mL every 4 (four) hours as needed. [facility] albuterol 90 mcg/actuati on inhaler 02-18 15:20: 25 Yes 2{puff} Inhale 2 Puffs every 6 (six) hours as needed. [facility] albuterol 2.5 mg /3 mL (0.083 %) nebulizer solution 02-18 15:20: 25 Yes 2.5mg Inhale 3 mL every 4 (four) hours as needed. [facility] medroxyPROG ESTERone (DEPO-PROVE RA) syringe 150 mg 11-18 22:00: 00 11-18 21:18 :00 No [id number] 150mg [facility] medroxyPROG ESTERone (DEPO-PROVE RA) syringe 150 mg 11-18 22:00: 00 11-18 21:18 :00 No [id number] 150mg 150 mg, Intramuscu lar, ONCE, 1 dose, On Fri11/18/22 at 1600, Routine [facility] medroxyPROG ESTERone (DEPO-PROVE RA) syringe 150 mg 11-18 22:00: 00 11-18 21:18 :00 No [id number] 150mg [facility] medroxyPROG ESTERone (DEPO-PROVE RA) syringe 150 mg 11-18 22:00: 00 11-18 21:18 :00 No [id number] 150mg 150 mg, Intramuscu lar, ONCE, 1 dose, On Fri11/18/22 at 1600, Routine [facility] clindamycin 300 mg capsule 11-18 15:33: 50 11-18 00:00 :00 No clindamyci n HCl 300 mg capsule Take 1 capsule 3 times a day by oral route for 10 days. [facility] clindamycin 300 mg capsule 11-18 15:33: 50 11-18 00:00 :00 No clindamyci n HCl 300 mg capsule Take 1 capsule 3 times a day by oral route for 10 days. [facility] ciprofloxac in HCl 500 mg tablet 11-18 15:33: 47 11-18 00:00 :00 No ciprofloxa monica 500 mg tablet [facility] ciprofloxac in HCl 500 mg tablet 11-18 15:33: 47 11-18 00:00 :00 No ciprofloxa monica 500 mg tablet [facility] cephALEXin 500 mg capsule 11-18 15:33: 40 11-18 00:00 :00 No cephalexin 500 mg capsule [facility] cephALEXin 500 mg capsule 11-18 15:33: 40 11-18 00:00 :00 No cephalexin 500 mg capsule [facility] azithromyci n 250 mg tablet 11-18 15:33: 37 11-18 00:00 :00 No azithromyc in 250 mg tablet TAKE BY MOUTH 2 TABLETS TODAY THEN 1 TABLE DAILY FOR NEXT 4 DAYS [facility] azithromyci n 250 mg tablet 11-18 15:33: 37 11-18 00:00 :00 No azithromyc in 250 mg tablet TAKE BY MOUTH 2 TABLETS TODAY THEN 1 TABLE DAILY FOR NEXT 4 DAYS [facility] doxylamine- pyridoxine, vit B6, 10-10 mg per tablet 11-18 15:33: 25 11-18 00:00 :00 No Diclegis 10 mg-10 mg tablet,del ayed release TAKE 1 TABLET BY MOUTH THREE TIMES A DAY NEEDED AND 2 AT BEDTIME [facility] doxylamine- pyridoxine, vit B6, 10-10 mg per tablet 11-18 15:33: 25 11-18 00:00 :00 No Diclegis 10 mg-10 mg tablet,del ayed release TAKE 1 TABLET BY MOUTH THREE TIMES A DAY NEEDED AND 2 AT BEDTIME [facility] norgestimat e-ethinyl estradioL 0.25-35 mg-mcg per tablet 11-18 15:33: 12 11-18 00:00 :00 No Sprintec (28) 0.25 mg-35 mcg tablet TAKE 1 TABLET BY MOUTH EVERY DAY [facility] norgestimat e-ethinyl estradioL 0.25-35 mg-mcg per tablet 11-18 15:33: 12 11-18 00:00 :00 No Sprintec (28) 0.25 mg-35 mcg tablet TAKE 1 TABLET BY MOUTH EVERY DAY [facility] Nitrofurant oin&Nit. Macrocryst 100 mg capsule 11-18 15:33: 11-18 00:00 :00 No nitrofuran toin monohydrat e/macrocry stals 100 mg capsule [facility] Nitrofurant oin&Nit. Macrocryst 100 mg capsule 11-18 15:33: 09 11-18 00:00 :00 No nitrofuran toin monohydrat e/macrocry stals 100 mg capsule [facility] vit,calc76/ iron/folic (PRENATABS RX ORAL) 11-18 15:33: 11-18 00:00 :00 No Prenatabs Rx 29 mg iron-1 mg tablet [facility] vit,calc76/ iron/folic (PRENATABS RX ORAL) 11-18 15:33: 03 11-18 00:00 :00 No Prenatabs Rx 29 mg iron-1 mg tablet [facility] PNV38/iron, crb,g/folic /dss/dha (CITRANATAL ASSURE ORAL) 11-18 15:33: 02 11-18 00:00 :00 No CitraNatal Assure 35 mg iron-1 mg-50 mg-300 mg oral pack [facility] PNV38/iron, crb,g/folic /dss/dha (CITRANATAL ASSURE ORAL) 11-18 15:33: 02 11-18 00:00 :00 No CitraNatal Assure 35 mg iron-1 mg-50 mg-300 mg oral pack [facility] PN 67-iron ps-folate no.1-dha (VITAFOL ULTRA) 29 mg iron- 1 mg-200 mg Cap 11-18 15:32: 56 11-18 00:00 :00 No Vitafol Ultra 29 mg iron-1 mg-200 mg capsule [facility] PN 67-iron ps-folate no.1-dha (VITAFOL ULTRA) 29 mg iron- 1 mg-200 mg Cap 11-18 15:32: 56 11-18 00:00 :00 No Vitafol Ultra 29 mg iron-1 mg-200 mg capsule [facility] sulfamethox azole-trime thoprim 800-160 mg per tablet 11-18 15:32: 50 11-18 00:00 :00 No sulfametho xazole 800 mg-trimeth oprim 160 mg tablet [facility] sulfamethox azole-trime thoprim 800-160 mg per tablet 11-18 15:32: 50 11-18 00:00 :00 No sulfametho xazole 800 mg-trimeth oprim 160 mg tablet [facility] predniSONE 20 mg tablet 11-18 14:55: 24 Yes prednisone 20 mg tablet [facility] prazosin 1 mg capsule 11-18 14:55: 24 Yes prazosin 1 mg capsule [facility] ondansetron 4 mg tablet 11-18 14:55: 24 Yes ondansetro n HCl 4 mg tablet TAKE 1 TABLET BY MOUTH EVERY 12 HOURS NEEDED [facility] ondansetron 4 mg disintegrat ing tablet 11-18 14:55: 24 Yes ondansetro n 4 mg disintegra ting tablet [facility] lurasidone 20 mg tablet 11-18 14:55: 24 Yes Latuda 20 mg tablet [facility] Sodium Fluoride, Dental Gel, 1.1 % Crea 11-18 14:55: 24 Yes Denta 5000 Plus 1.1 % cream USE TWICE A DAY IN THE MORNING AND AT NIGHT. DO NOT EAT OR DRINK FOR AT LEAST 30 MINS [facility] fluconazole 200 mg tablet 11-18 14:55: 24 Yes fluconazol e 200 mg tablet [facility] escitalopra m oxalate 20 mg tablet 11-18 14:55: 24 Yes escitalopr am 20 mg tablet [facility] diphenoxyla te-atropine 2.5-0.025 mg tablet 11-18 14:55: 24 Yes diphenoxyl ate-atropi ne 2.5 mg-0.025 mg tablet [facility] dicyclomine 20 mg tablet 11-18 14:55: 24 Yes dicyclomin e 20 mg tablet TAKE 1 TABLET BY MOUTH EVERY 6 HOURS NEEDED [facility] chlorhexidi ne 0.12 % mouthwash 11-18 14:55: 24 Yes chlorhexid ine gluconate 0.12 % mouthwash USE TWICE DAILY [facility] busPIRone 5 mg tablet 11-18 14:55: 24 Yes buspirone 5 mg tablet [facility] ARIPiprazol e 5 mg tablet 11-18 14:55: 24 Yes aripiprazo le 5 mg tablet [facility] iron-FA-dha -epa-FAD-NA DH-be-mv (ENLYTE) 1.5 mg iron- 8.73 mg CpID 11-18 14:55: 24 Yes EnLyte 1.5 mg iron-8.73 mg capsule,im mediate - delay release [facility] predniSONE 20 mg tablet 11-18 14:55: 24 Yes prednisone 20 mg tablet [facility] prazosin 1 mg capsule 11-18 14:55: 24 Yes prazosin 1 mg capsule [facility] ondansetron 4 mg tablet 11-18 14:55: 24 Yes ondansetro n HCl 4 mg tablet TAKE 1 TABLET BY MOUTH EVERY 12 HOURS NEEDED [facility] ondansetron 4 mg disintegrat ing tablet 11-18 14:55: 24 Yes ondansetro n 4 mg disintegra ting tablet [facility] lurasidone 20 mg tablet 11-18 14:55: 24 Yes Latuda 20 mg tablet [facility] Sodium Fluoride, Dental Gel, 1.1 % Crea 11-18 14:55: 24 Yes Denta 5000 Plus 1.1 % cream USE TWICE A DAY IN THE MORNING AND AT NIGHT. DO NOT EAT OR DRINK FOR AT LEAST 30 MINS [facility] fluconazole 200 mg tablet 11-18 14:55: 24 Yes fluconazol e 200 mg tablet [facility] escitalopra m oxalate 20 mg tablet 11-18 14:55: 24 Yes escitalopr am 20 mg tablet [facility] diphenoxyla te-atropine 2.5-0.025 mg tablet 11-18 14:55: 24 Yes diphenoxyl ate-atropi ne 2.5 mg-0.025 mg tablet [facility] dicyclomine 20 mg tablet 11-18 14:55: 24 Yes dicyclomin e 20 mg tablet TAKE 1 TABLET BY MOUTH EVERY 6 HOURS NEEDED [facility] chlorhexidi ne 0.12 % mouthwash 11-18 14:55: 24 Yes chlorhexid ine gluconate 0.12 % mouthwash USE TWICE DAILY [facility] busPIRone 5 mg tablet 11-18 14:55: 24 Yes buspirone 5 mg tablet [facility] ARIPiprazol e 5 mg tablet 11-18 14:55: 24 Yes aripiprazo le 5 mg tablet [facility] iron-FA-dha -epa-FAD-NA DH-be-mv (ENLYTE) 1.5 mg iron- 8.73 mg CpID 11-18 14:55: 24 Yes EnLyte 1.5 mg iron-8.73 mg capsule,im mediate - delay release [facility] predniSONE 20 mg tablet 11-18 14:55: 24 Yes prednisone 20 mg tablet [facility] prazosin 1 mg capsule 11-18 14:55: 24 Yes prazosin 1 mg capsule [facility] ondansetron 4 mg tablet 11-18 14:55: 24 Yes ondansetro n HCl 4 mg tablet TAKE 1 TABLET BY MOUTH EVERY 12 HOURS NEEDED [facility] ondansetron 4 mg disintegrat ing tablet 11-18 14:55: 24 Yes ondansetro n 4 mg disintegra ting tablet [facility] lurasidone 20 mg tablet 11-18 14:55: 24 Yes Latuda 20 mg tablet [facility] Sodium Fluoride, Dental Gel, 1.1 % Crea 11-18 14:55: 24 Yes Denta 5000 Plus 1.1 % cream USE TWICE A DAY IN THE MORNING AND AT NIGHT. DO NOT EAT OR DRINK FOR AT LEAST 30 MINS [facility] fluconazole 200 mg tablet 11-18 14:55: 24 Yes fluconazol e 200 mg tablet [facility] escitalopra m oxalate 20 mg tablet 11-18 14:55: 24 Yes escitalopr am 20 mg tablet [facility] diphenoxyla te-atropine 2.5-0.025 mg tablet 11-18 14:55: 24 Yes diphenoxyl ate-atropi ne 2.5 mg-0.025 mg tablet [facility] dicyclomine 20 mg tablet 11-18 14:55: 24 Yes dicyclomin e 20 mg tablet TAKE 1 TABLET BY MOUTH EVERY 6 HOURS NEEDED [facility] chlorhexidi ne 0.12 % mouthwash 11-18 14:55: 24 Yes chlorhexid ine gluconate 0.12 % mouthwash USE TWICE DAILY [facility] busPIRone 5 mg tablet 11-18 14:55: 24 Yes buspirone 5 mg tablet [facility] ARIPiprazol e 5 mg tablet 11-18 14:55: 24 Yes aripiprazo le 5 mg tablet [facility] iron-FA-dha -epa-FAD-NA DH-be-mv (ENLYTE) 1.5 mg iron- 8.73 mg CpID 11-18 14:55: 24 Yes EnLyte 1.5 mg iron-8.73 mg capsule,im mediate - delay release [facility] predniSONE 20 mg tablet 11-18 14:55: 24 Yes prednisone 20 mg tablet [facility] prazosin 1 mg capsule 11-18 14:55: 24 Yes prazosin 1 mg capsule [facility] ondansetron 4 mg tablet 11-18 14:55: 24 Yes ondansetro n HCl 4 mg tablet TAKE 1 TABLET BY MOUTH EVERY 12 HOURS NEEDED [facility] ondansetron 4 mg disintegrat ing tablet 11-18 14:55: 24 Yes ondansetro n 4 mg disintegra ting tablet [facility] lurasidone 20 mg tablet 11-18 14:55: 24 Yes Latuda 20 mg tablet [facility] Sodium Fluoride, Dental Gel, 1.1 % Crea 11-18 14:55: 24 Yes Denta 5000 Plus 1.1 % cream USE TWICE A DAY IN THE MORNING AND AT NIGHT. DO NOT EAT OR DRINK FOR AT LEAST 30 MINS [facility] fluconazole 200 mg tablet 11-18 14:55: 24 Yes fluconazol e 200 mg tablet [facility] escitalopra m oxalate 20 mg tablet 11-18 14:55: 24 Yes escitalopr am 20 mg tablet [facility] diphenoxyla te-atropine 2.5-0.025 mg tablet 11-18 14:55: 24 Yes diphenoxyl ate-atropi ne 2.5 mg-0.025 mg tablet [facility] dicyclomine 20 mg tablet 11-18 14:55: 24 Yes dicyclomin e 20 mg tablet TAKE 1 TABLET BY MOUTH EVERY 6 HOURS NEEDED [facility] chlorhexidi ne 0.12 % mouthwash 11-18 14:55: 24 Yes chlorhexid ine gluconate 0.12 % mouthwash USE TWICE DAILY [facility] busPIRone 5 mg tablet 11-18 14:55: 24 Yes buspirone 5 mg tablet [facility] ARIPiprazol e 5 mg tablet 11-18 14:55: 24 Yes aripiprazo le 5 mg tablet [facility] iron-FA-dha -epa-FAD-NA DH-be-mv (ENLYTE) 1.5 mg iron- 8.73 mg CpID 11-18 14:55: 24 Yes EnLyte 1.5 mg iron-8.73 mg capsule,im mediate - delay release [facility] predniSONE 20 mg tablet 11-18 14:55: 24 Yes prednisone 20 mg tablet [facility] prazosin 1 mg capsule 11-18 14:55: 24 Yes prazosin 1 mg capsule [facility] ondansetron 4 mg tablet 11-18 14:55: 24 Yes ondansetro n HCl 4 mg tablet TAKE 1 TABLET BY MOUTH EVERY 12 HOURS NEEDED [facility] ondansetron 4 mg disintegrat ing tablet 11-18 14:55: 24 Yes ondansetro n 4 mg disintegra ting tablet [facility] lurasidone 20 mg tablet 11-18 14:55: 24 Yes Latuda 20 mg tablet [facility] Sodium Fluoride, Dental Gel, 1.1 % Crea 11-18 14:55: 24 Yes Denta 5000 Plus 1.1 % cream USE TWICE A DAY IN THE MORNING AND AT NIGHT. DO NOT EAT OR DRINK FOR AT LEAST 30 MINS [facility] fluconazole 200 mg tablet 11-18 14:55: 24 Yes fluconazol e 200 mg tablet [facility] escitalopra m oxalate 20 mg tablet 11-18 14:55: 24 Yes escitalopr am 20 mg tablet [facility] diphenoxyla te-atropine 2.5-0.025 mg tablet 11-18 14:55: 24 Yes diphenoxyl ate-atropi ne 2.5 mg-0.025 mg tablet [facility] dicyclomine 20 mg tablet 11-18 14:55: 24 Yes dicyclomin e 20 mg tablet TAKE 1 TABLET BY MOUTH EVERY 6 HOURS NEEDED [facility] chlorhexidi ne 0.12 % mouthwash 11-18 14:55: 24 Yes chlorhexid ine gluconate 0.12 % mouthwash USE TWICE DAILY [facility] busPIRone 5 mg tablet 11-18 14:55: 24 Yes buspirone 5 mg tablet [facility] ARIPiprazol e 5 mg tablet 11-18 14:55: 24 Yes aripiprazo le 5 mg tablet [facility] iron-FA-dha -epa-FAD-NA DH-be-mv (ENLYTE) 1.5 mg iron- 8.73 mg CpID 11-18 14:55: 24 Yes EnLyte 1.5 mg iron-8.73 mg capsule,im mediate - delay release [facility] predniSONE 20 mg tablet 11-18 14:55: 24 Yes prednisone 20 mg tablet [facility] prazosin 1 mg capsule 11-18 14:55: 24 Yes prazosin 1 mg capsule [facility] ondansetron 4 mg tablet 11-18 14:55: 24 Yes ondansetro n HCl 4 mg tablet TAKE 1 TABLET BY MOUTH EVERY 12 HOURS NEEDED [facility] ondansetron 4 mg disintegrat ing tablet 11-18 14:55: 24 Yes ondansetro n 4 mg disintegra ting tablet [facility] lurasidone 20 mg tablet 11-18 14:55: 24 Yes Latuda 20 mg tablet [facility] Sodium Fluoride, Dental Gel, 1.1 % Crea 11-18 14:55: 24 Yes Denta 5000 Plus 1.1 % cream USE TWICE A DAY IN THE MORNING AND AT NIGHT. DO NOT EAT OR DRINK FOR AT LEAST 30 MINS [facility] fluconazole 200 mg tablet 11-18 14:55: 24 Yes fluconazol e 200 mg tablet [facility] escitalopra m oxalate 20 mg tablet 11-18 14:55: 24 Yes escitalopr am 20 mg tablet [facility] diphenoxyla te-atropine 2.5-0.025 mg tablet 11-18 14:55: 24 Yes diphenoxyl ate-atropi ne 2.5 mg-0.025 mg tablet [facility] dicyclomine 20 mg tablet 11-18 14:55: 24 Yes dicyclomin e 20 mg tablet TAKE 1 TABLET BY MOUTH EVERY 6 HOURS NEEDED [facility] chlorhexidi ne 0.12 % mouthwash 11-18 14:55: 24 Yes chlorhexid ine gluconate 0.12 % mouthwash USE TWICE DAILY [facility] busPIRone 5 mg tablet 11-18 14:55: 24 Yes buspirone 5 mg tablet [facility] ARIPiprazol e 5 mg tablet 11-18 14:55: 24 Yes aripiprazo le 5 mg tablet [facility] iron-FA-dha -epa-FAD-NA DH-be-mv (ENLYTE) 1.5 mg iron- 8.73 mg CpID 11-18 14:55: 24 Yes EnLyte 1.5 mg iron-8.73 mg capsule,im mediate - delay release [facility] predniSONE 20 mg tablet 11-18 14:55: 24 Yes prednisone 20 mg tablet [facility] prazosin 1 mg capsule 11-18 14:55: 24 Yes prazosin 1 mg capsule [facility] ondansetron 4 mg tablet 11-18 14:55: 24 Yes ondansetro n HCl 4 mg tablet TAKE 1 TABLET BY MOUTH EVERY 12 HOURS NEEDED [facility] ondansetron 4 mg disintegrat ing tablet 11-18 14:55: 24 Yes ondansetro n 4 mg disintegra ting tablet [facility] lurasidone 20 mg tablet 11-18 14:55: 24 Yes Latuda 20 mg tablet [facility] Sodium Fluoride, Dental Gel, 1.1 % Crea 11-18 14:55: 24 Yes Denta 5000 Plus 1.1 % cream USE TWICE A DAY IN THE MORNING AND AT NIGHT. DO NOT EAT OR DRINK FOR AT LEAST 30 MINS [facility] fluconazole 200 mg tablet 11-18 14:55: 24 Yes fluconazol e 200 mg tablet [facility] escitalopra m oxalate 20 mg tablet 11-18 14:55: 24 Yes escitalopr am 20 mg tablet [facility] diphenoxyla te-atropine 2.5-0.025 mg tablet 11-18 14:55: 24 Yes diphenoxyl ate-atropi ne 2.5 mg-0.025 mg tablet [facility] dicyclomine 20 mg tablet 11-18 14:55: 24 Yes dicyclomin e 20 mg tablet TAKE 1 TABLET BY MOUTH EVERY 6 HOURS NEEDED [facility] chlorhexidi ne 0.12 % mouthwash 11-18 14:55: 24 Yes chlorhexid ine gluconate 0.12 % mouthwash USE TWICE DAILY [facility] busPIRone 5 mg tablet 11-18 14:55: 24 Yes buspirone 5 mg tablet [facility] ARIPiprazol e 5 mg tablet 11-18 14:55: 24 Yes aripiprazo le 5 mg tablet [facility] iron-FA-dha -epa-FAD-NA DH-be-mv (ENLYTE) 1.5 mg iron- 8.73 mg CpID 11-18 14:55: 24 Yes EnLyte 1.5 mg iron-8.73 mg capsule,im mediate - delay release [facility] predniSONE 20 mg tablet 11-18 14:55: 24 Yes prednisone 20 mg tablet [facility] prazosin 1 mg capsule 11-18 14:55: 24 Yes prazosin 1 mg capsule [facility] ondansetron 4 mg tablet 11-18 14:55: 24 Yes ondansetro n HCl 4 mg tablet TAKE 1 TABLET BY MOUTH EVERY 12 HOURS NEEDED [facility] ondansetron 4 mg disintegrat ing tablet 11-18 14:55: 24 Yes ondansetro n 4 mg disintegra ting tablet [facility] lurasidone 20 mg tablet 11-18 14:55: 24 Yes Latuda 20 mg tablet [facility] Sodium Fluoride, Dental Gel, 1.1 % Crea 11-18 14:55: 24 Yes Denta 5000 Plus 1.1 % cream USE TWICE A DAY IN THE MORNING AND AT NIGHT. DO NOT EAT OR DRINK FOR AT LEAST 30 MINS [facility] fluconazole 200 mg tablet 11-18 14:55: 24 Yes fluconazol e 200 mg tablet [facility] escitalopra m oxalate 20 mg tablet 11-18 14:55: 24 Yes escitalopr am 20 mg tablet [facility] diphenoxyla te-atropine 2.5-0.025 mg tablet 11-18 14:55: 24 Yes diphenoxyl ate-atropi ne 2.5 mg-0.025 mg tablet [facility] dicyclomine 20 mg tablet 11-18 14:55: 24 Yes dicyclomin e 20 mg tablet TAKE 1 TABLET BY MOUTH EVERY 6 HOURS NEEDED [facility] chlorhexidi ne 0.12 % mouthwash 11-18 14:55: 24 Yes chlorhexid ine gluconate 0.12 % mouthwash USE TWICE DAILY [facility] busPIRone 5 mg tablet 11-18 14:55: 24 Yes buspirone 5 mg tablet [facility] ARIPiprazol e 5 mg tablet 11-18 14:55: 24 Yes aripiprazo le 5 mg tablet [facility] iron-FA-dha -epa-FAD-NA DH-be-mv (ENLYTE) 1.5 mg iron- 8.73 mg CpID 11-18 14:55: 24 Yes EnLyte 1.5 mg iron-8.73 mg capsule,im mediate - delay release [facility] predniSONE 20 mg tablet 11-18 14:55: 24 Yes prednisone 20 mg tablet [facility] prazosin 1 mg capsule 11-18 14:55: 24 Yes prazosin 1 mg capsule [facility] ondansetron 4 mg tablet 11-18 14:55: 24 Yes ondansetro n HCl 4 mg tablet TAKE 1 TABLET BY MOUTH EVERY 12 HOURS NEEDED [facility] ondansetron 4 mg disintegrat ing tablet 11-18 14:55: 24 Yes ondansetro n 4 mg disintegra ting tablet [facility] lurasidone 20 mg tablet 11-18 14:55: 24 Yes Latuda 20 mg tablet [facility] Sodium Fluoride, Dental Gel, 1.1 % Crea 11-18 14:55: 24 Yes Denta 5000 Plus 1.1 % cream USE TWICE A DAY IN THE MORNING AND AT NIGHT. DO NOT EAT OR DRINK FOR AT LEAST 30 MINS [facility] fluconazole 200 mg tablet 11-18 14:55: 24 Yes fluconazol e 200 mg tablet [facility] escitalopra m oxalate 20 mg tablet 11-18 14:55: 24 Yes escitalopr am 20 mg tablet [facility] diphenoxyla te-atropine 2.5-0.025 mg tablet 11-18 14:55: 24 Yes diphenoxyl ate-atropi ne 2.5 mg-0.025 mg tablet [facility] dicyclomine 20 mg tablet 11-18 14:55: 24 Yes dicyclomin e 20 mg tablet TAKE 1 TABLET BY MOUTH EVERY 6 HOURS NEEDED [facility] chlorhexidi ne 0.12 % mouthwash 11-18 14:55: 24 Yes chlorhexid ine gluconate 0.12 % mouthwash USE TWICE DAILY [facility] busPIRone 5 mg tablet 11-18 14:55: 24 Yes buspirone 5 mg tablet [facility] ARIPiprazol e 5 mg tablet 11-18 14:55: 24 Yes aripiprazo le 5 mg tablet [facility] iron-FA-dha -epa-FAD-NA DH-be-mv (ENLYTE) 1.5 mg iron- 8.73 mg CpID 11-18 14:55: 24 Yes EnLyte 1.5 mg iron-8.73 mg capsule,im mediate - delay release [facility] predniSONE 20 mg tablet 11-18 14:55: 24 Yes prednisone 20 mg tablet [facility] prazosin 1 mg capsule 11-18 14:55: 24 Yes prazosin 1 mg capsule [facility] ondansetron 4 mg tablet 11-18 14:55: 24 Yes ondansetro n HCl 4 mg tablet TAKE 1 TABLET BY MOUTH EVERY 12 HOURS NEEDED [facility] ondansetron 4 mg disintegrat ing tablet 11-18 14:55: 24 Yes ondansetro n 4 mg disintegra ting tablet [facility] lurasidone 20 mg tablet 11-18 14:55: 24 Yes Latuda 20 mg tablet [facility] Sodium Fluoride, Dental Gel, 1.1 % Crea 11-18 14:55: 24 Yes Denta 5000 Plus 1.1 % cream USE TWICE A DAY IN THE MORNING AND AT NIGHT. DO NOT EAT OR DRINK FOR AT LEAST 30 MINS [facility] fluconazole 200 mg tablet 11-18 14:55: 24 Yes fluconazol e 200 mg tablet [facility] escitalopra m oxalate 20 mg tablet 11-18 14:55: 24 Yes escitalopr am 20 mg tablet [facility] diphenoxyla te-atropine 2.5-0.025 mg tablet 11-18 14:55: 24 Yes diphenoxyl ate-atropi ne 2.5 mg-0.025 mg tablet [facility] dicyclomine 20 mg tablet 11-18 14:55: 24 Yes dicyclomin e 20 mg tablet TAKE 1 TABLET BY MOUTH EVERY 6 HOURS NEEDED [facility] chlorhexidi ne 0.12 % mouthwash 11-18 14:55: 24 Yes chlorhexid ine gluconate 0.12 % mouthwash USE TWICE DAILY [facility] busPIRone 5 mg tablet 11-18 14:55: 24 Yes buspirone 5 mg tablet [facility] ARIPiprazol e 5 mg tablet 11-18 14:55: 24 Yes aripiprazo le 5 mg tablet [facility] iron-FA-dha -epa-FAD-NA DH-be-mv (ENLYTE) 1.5 mg iron- 8.73 mg CpID 11-18 14:55: 24 Yes EnLyte 1.5 mg iron-8.73 mg capsule,im mediate - delay release [facility] predniSONE 20 mg tablet 11-18 14:55: 24 Yes prednisone 20 mg tablet [facility] prazosin 1 mg capsule 11-18 14:55: 24 Yes prazosin 1 mg capsule [facility] ondansetron 4 mg tablet 11-18 14:55: 24 Yes ondansetro n HCl 4 mg tablet TAKE 1 TABLET BY MOUTH EVERY 12 HOURS NEEDED [facility] ondansetron 4 mg disintegrat ing tablet 11-18 14:55: 24 Yes ondansetro n 4 mg disintegra ting tablet [facility] lurasidone 20 mg tablet 11-18 14:55: 24 Yes Latuda 20 mg tablet [facility] Sodium Fluoride, Dental Gel, 1.1 % Crea 11-18 14:55: 24 Yes Denta 5000 Plus 1.1 % cream USE TWICE A DAY IN THE MORNING AND AT NIGHT. DO NOT EAT OR DRINK FOR AT LEAST 30 MINS [facility] fluconazole 200 mg tablet 11-18 14:55: 24 Yes fluconazol e 200 mg tablet [facility] escitalopra m oxalate 20 mg tablet 11-18 14:55: 24 Yes escitalopr am 20 mg tablet [facility] diphenoxyla te-atropine 2.5-0.025 mg tablet 11-18 14:55: 24 Yes diphenoxyl ate-atropi ne 2.5 mg-0.025 mg tablet [facility] dicyclomine 20 mg tablet 11-18 14:55: 24 Yes dicyclomin e 20 mg tablet TAKE 1 TABLET BY MOUTH EVERY 6 HOURS NEEDED [facility] chlorhexidi ne 0.12 % mouthwash 11-18 14:55: 24 Yes chlorhexid ine gluconate 0.12 % mouthwash USE TWICE DAILY [facility] busPIRone 5 mg tablet 11-18 14:55: 24 Yes buspirone 5 mg tablet [facility] ARIPiprazol e 5 mg tablet 11-18 14:55: 24 Yes aripiprazo le 5 mg tablet [facility] iron-FA-dha -epa-FAD-NA DH-be-mv (ENLYTE) 1.5 mg iron- 8.73 mg CpID 11-18 14:55: 24 Yes EnLyte 1.5 mg iron-8.73 mg capsule,im mediate - delay release [facility] predniSONE 20 mg tablet 11-18 14:55: 24 Yes prednisone 20 mg tablet [facility] prazosin 1 mg capsule 11-18 14:55: 24 Yes prazosin 1 mg capsule [facility] ondansetron 4 mg tablet 11-18 14:55: 24 Yes ondansetro n HCl 4 mg tablet TAKE 1 TABLET BY MOUTH EVERY 12 HOURS NEEDED [facility] ondansetron 4 mg disintegrat ing tablet 11-18 14:55: 24 Yes ondansetro n 4 mg disintegra ting tablet [facility] lurasidone 20 mg tablet 11-18 14:55: 24 Yes Latuda 20 mg tablet [facility] Sodium Fluoride, Dental Gel, 1.1 % Crea 11-18 14:55: 24 Yes Denta 5000 Plus 1.1 % cream USE TWICE A DAY IN THE MORNING AND AT NIGHT. DO NOT EAT OR DRINK FOR AT LEAST 30 MINS [facility] fluconazole 200 mg tablet 11-18 14:55: 24 Yes fluconazol e 200 mg tablet [facility] escitalopra m oxalate 20 mg tablet 11-18 14:55: 24 Yes escitalopr am 20 mg tablet [facility] diphenoxyla te-atropine 2.5-0.025 mg tablet 11-18 14:55: 24 Yes diphenoxyl ate-atropi ne 2.5 mg-0.025 mg tablet [facility] dicyclomine 20 mg tablet 11-18 14:55: 24 Yes dicyclomin e 20 mg tablet TAKE 1 TABLET BY MOUTH EVERY 6 HOURS NEEDED [facility] chlorhexidi ne 0.12 % mouthwash 11-18 14:55: 24 Yes chlorhexid ine gluconate 0.12 % mouthwash USE TWICE DAILY [facility] busPIRone 5 mg tablet 11-18 14:55: 24 Yes buspirone 5 mg tablet [facility] ARIPiprazol e 5 mg tablet 11-18 14:55: 24 Yes aripiprazo le 5 mg tablet [facility] iron-FA-dha -epa-FAD-NA DH-be-mv (ENLYTE) 1.5 mg iron- 8.73 mg CpID 11-18 14:55: 24 Yes EnLyte 1.5 mg iron-8.73 mg capsule,im mediate - delay release [facility] escitalopra m oxalate 20 mg tablet 11-18 14:55: 24 Yes escitalopr am 20 mg tablet [facility] dicyclomine 20 mg tablet 11-18 14:55: 24 Yes dicyclomin e 20 mg tablet TAKE 1 TABLET BY MOUTH EVERY 6 HOURS NEEDED [facility] busPIRone 5 mg tablet 11-18 14:55: 24 Yes buspirone 5 mg tablet [facility] ARIPiprazol e 5 mg tablet 11-18 14:55: 24 Yes aripiprazo le 5 mg tablet [facility] escitalopra m oxalate 20 mg tablet 11-18 14:55: 24 Yes escitalopr am 20 mg tablet [facility] dicyclomine 20 mg tablet 11-18 14:55: 24 Yes dicyclomin e 20 mg tablet TAKE 1 TABLET BY MOUTH EVERY 6 HOURS NEEDED [facility] busPIRone 5 mg tablet 11-18 14:55: 24 Yes buspirone 5 mg tablet [facility] ARIPiprazol e 5 mg tablet 11-18 14:55: 24 Yes aripiprazo le 5 mg tablet [facility] escitalopra m oxalate 20 mg tablet 11-18 14:55: 24 Yes escitalopr am 20 mg tablet [facility] dicyclomine 20 mg tablet 11-18 14:55: 24 Yes dicyclomin e 20 mg tablet TAKE 1 TABLET BY MOUTH EVERY 6 HOURS NEEDED [facility] busPIRone 5 mg tablet 11-18 14:55: 24 Yes buspirone 5 mg tablet [facility] ARIPiprazol e 5 mg tablet 11-18 14:55: 24 Yes aripiprazo le 5 mg tablet [facility] [place] miSOPROStoL 200 mcg tablet 11-18 00:00: 00 Yes [id number] Take one tablet night before procedure, then take one tablet morning of procedure [facility] [place] miSOPROStoL 200 mcg tablet 11-18 00:00: 00 Yes [id number] Take one tablet night before procedure, then take one tablet morning of procedure [facility] miSOPROStoL 200 mcg tablet 11-18 00:00: 00 Yes [id number] Take one tablet night before procedure, then take one tablet morning of procedure [facility] miSOPROStoL 200 mcg tablet 11-18 00:00: 00 Yes [id number] Take one tablet night before procedure, then take one tablet morning of procedure [facility] miSOPROStoL 200 mcg tablet 11-18 00:00: 00 Yes [id number] Take one tablet night before procedure, then take one tablet morning of procedure [facility] miSOPROStoL 200 mcg tablet 11-18 00:00: 00 Yes [id number] Take one tablet night before procedure, then take one tablet [facility] of [facility] miSOPROS[facility] 200 mcg tablet 11-18 00:00: 00 Yes [id number] Take one tablet night before procedure, then take one tablet morning of procedure [facility] [place] miSOPROStoL 200 mcg tablet 11-18 00:00: 00 Yes [id number] Take one tablet night before procedure, then take one tablet morning of procedure [facility] miSOPROStoL 200 mcg tablet 11-18 00:00: 00 Yes [id number] Take one tablet night before procedure, then take one tablet morning of procedure [facility] miSOPROStoL 200 mcg tablet 11-18 00:00: 00 Yes [id number] Take one tablet night before procedure, then take one tablet morning of procedure [facility] miSOPROStoL 200 mcg tablet 11-18 00:00: 00 Yes [id number] Take one tablet night before procedure, then take one tablet morning of procedure [facility] miSOPROStoL 200 mcg tablet 11-18 00:00: 00 Yes [id number] Take one tablet night before procedure, then take one tablet morning of procedure [facility] miSOPROStoL 200 mcg tablet 11-18 00:00: 00 10-08 00:00 :00 No [id number] Take one tablet night before procedure, then take one tablet morning of procedure [facility] miSOPROStoL 200 mcg tablet 11-18 00:00: 00 10-08 00:00 :00 No [id number] Take one tablet night before procedure, then take one tablet morning of procedure [facility] miSOPROStoL 200 mcg tablet 11-18 00:00: 00 10-08 00:00 :00 No [id number] Take one tablet night before procedure, then take one tablet morning of procedure [facility] miSOPROStoL 200 mcg tablet 11-18 00:00: 00 10-08 00:00 :00 No [id number] Take one tablet night before procedure, then take one tablet morning of procedure [facility] miSOPROStoL 200 mcg tablet 11-18 00:00: 00 10-08 00:00 :00 No [id number] Take one tablet night before procedure, then take one tablet morning of procedure [facility] miSOPROStoL 200 mcg tablet 11-18 00:00: 00 10-08 00:00 :00 No [id number] Take one tablet night before procedure, then take one tablet morning of procedure [facility] medroxyPROG ESTERone (DEPO-PROVE RA) syringe 150 mg 2021-11 21:15: 00 08-26 20:14 :00 No [id number] 150mg [facility] medroxyPROG ESTERone (DEPO-PROVE RA) syringe 150 mg 2021-11 21:15: 00 08-26 20:14 :00 No [id number] 150mg 150 mg, Intramuscu lar, ONCE, 1 dose, On Fri08/26/22 at 1615, Routine [facility] SUMAtriptan 50 mg tablet 07-03 15:26: 51 Yes sumatripta n 50 mg tablet [facility] sulfamethox azole-trime thoprim 800-160 mg per tablet 07-03 15:26: 51 Yes sulfametho xazole 800 mg-trimeth oprim 160 mg tablet [facility] predniSONE 20 mg tablet 07-03 15:26: 51 Yes prednisone 20 mg tablet [facility] prazosin 1 mg capsule 07-03 15:26: 51 Yes prazosin 1 mg capsule [facility] ondansetron 4 mg tablet 07-03 15:26: 51 Yes ondansetro n HCl 4 mg tablet TAKE 1 TABLET BY MOUTH EVERY 12 HOURS NEEDED [facility] ondansetron 4 mg disintegrat ing tablet 07-03 15:26: 51 Yes ondansetro n 4 mg disintegra ting tablet [facility] Nitrofurant oin&Nit. Macrocryst 100 mg capsule 07-03 15:26: 51 Yes nitrofuran toin monohydrat e/macrocry stals 100 mg capsule [facility] lurasidone 20 mg tablet 07-03 15:26: 51 Yes Latuda 20 mg tablet [facility] Sodium Fluoride, Dental Gel, 1.1 % Crea 07-03 15:26: 51 Yes Denta 5000 Plus 1.1 % cream USE TWICE A DAY IN THE MORNING AND AT NIGHT. DO NOT EAT OR DRINK FOR AT LEAST 30 MINS [facility] fluconazole 200 mg tablet 07-03 15:26: 51 Yes fluconazol e 200 mg tablet [facility] escitalopra m oxalate 20 mg tablet 07-03 15:26: 51 Yes escitalopr am 20 mg tablet [facility] doxylamine- pyridoxine, vit B6, 10-10 mg per tablet 07-03 15:26: 51 Yes Diclegis 10 mg-10 mg tablet,del ayed release TAKE 1 TABLET BY MOUTH THREE TIMES A DAY NEEDED AND 2 AT BEDTIME [facility] diphenoxyla te-atropine 2.5-0.025 mg tablet 07-03 15:26: 51 Yes diphenoxyl ate-atropi ne 2.5 mg-0.025 mg tablet [facility] dicyclomine 20 mg tablet 07-03 15:26: 51 Yes dicyclomin e 20 mg tablet TAKE 1 TABLET BY MOUTH EVERY 6 HOURS NEEDED [facility] clindamycin 300 mg capsule 07-03 15:26: 51 Yes clindamyci n HCl 300 mg capsule Take 1 capsule 3 times a day by oral route for 10 days. [facility] ciprofloxac in HCl 500 mg tablet 07-03 15:26: 51 Yes ciprofloxa monica 500 mg tablet [facility] chlorhexidi ne 0.12 % mouthwash 07-03 15:26: 51 Yes chlorhexid ine gluconate 0.12 % mouthwash USE TWICE DAILY [facility] cephALEXin 500 mg capsule 07-03 15:26: 51 Yes cephalexin 500 mg capsule [facility] busPIRone 5 mg tablet 07-03 15:26: 51 Yes buspirone 5 mg tablet [facility] azithromyci n 250 mg tablet 07-03 15:26: 51 Yes azithromyc in 250 mg tablet TAKE BY MOUTH 2 TABLETS TODAY THEN 1 TABLE DAILY FOR NEXT 4 DAYS [facility] ARIPiprazol e 5 mg tablet 07-03 15:26: 51 Yes aripiprazo le 5 mg tablet [facility] PNV 67-iron ps-folate no.1-dha (VITAFOL ULTRA) 29 mg iron- 1 mg-200 mg Cap 07-03 15:26: 51 Yes Vitafol Ultra 29 mg iron-1 mg-200 mg capsule [facility] norgestimat e-ethinyl estradioL 0.25-35 mg-mcg per tablet 07-03 15:26: 51 Yes Sprintec (28) 0.25 mg-35 mcg tablet TAKE 1 TABLET BY MOUTH EVERY DAY [facility] vit,calc76/ iron/folic (PRENATABS RX ORAL) 07-03 15:26: 51 Yes Prenatabs Rx 29 mg iron-1 mg tablet [facility] iron-FA-dha -epa-FAD-NA DH-be-mv (ENLYTE) 1.5 mg iron- 8.73 mg CpID 07-03 15:26: 51 Yes EnLyte 1.5 mg iron-8.73 mg capsule,im mediate - delay release [facility] PNV38/iron, crb,g/folic /dss/dha (CITRANATAL ASSURE ORAL) 07-03 15:26: 51 Yes CitraNatal Assure 35 mg iron-1 mg-50 mg-300 mg oral pack [facility] SUMAtriptan 50 mg tablet 07-03 15:26: 51 Yes sumatripta n 50 mg tablet [facility] sulfamethox azole-trime thoprim 800-160 mg per tablet 07-03 15:26: 51 Yes sulfametho xazole 800 mg-trimeth oprim 160 mg tablet [facility] predniSONE 20 mg tablet 07-03 15:26: 51 Yes prednisone 20 mg tablet [facility] prazosin 1 mg capsule 07-03 15:26: 51 Yes prazosin 1 mg capsule [facility] ondansetron 4 mg tablet 07-03 15:26: 51 Yes ondansetro n HCl 4 mg tablet TAKE 1 TABLET BY MOUTH EVERY 12 HOURS NEEDED [facility] ondansetron 4 mg disintegrat ing tablet 07-03 15:26: 51 Yes ondansetro n 4 mg disintegra ting tablet [facility] Nitrofurant oin&Nit. Macrocryst 100 mg capsule 07-03 15:26: 51 Yes nitrofuran toin monohydrat e/macrocry stals 100 mg capsule [facility] lurasidone 20 mg tablet 07-03 15:26: 51 Yes Latuda 20 mg tablet [facility] Sodium Fluoride, Dental Gel, 1.1 % Crea 07-03 15:26: 51 Yes Denta 5000 Plus 1.1 % cream USE TWICE A DAY IN THE MORNING AND AT NIGHT. DO NOT EAT OR DRINK FOR AT LEAST 30 MINS [facility] fluconazole 200 mg tablet 07-03 15:26: 51 Yes fluconazol e 200 mg tablet [facility] escitalopra m oxalate 20 mg tablet 07-03 15:26: 51 Yes escitalopr am 20 mg tablet [facility] doxylamine- pyridoxine, vit B6, 10-10 mg per tablet 07-03 15:26: 51 Yes Diclegis 10 mg-10 mg tablet,del ayed release TAKE 1 TABLET BY MOUTH THREE TIMES A DAY NEEDED AND 2 AT BEDTIME [facility] diphenoxyla te-atropine 2.5-0.025 mg tablet 07-03 15:26: 51 Yes diphenoxyl ate-atropi ne 2.5 mg-0.025 mg tablet [facility] dicyclomine 20 mg tablet 07-03 15:26: 51 Yes dicyclomin e 20 mg tablet TAKE 1 TABLET BY MOUTH EVERY 6 HOURS NEEDED [facility] clindamycin 300 mg capsule 07-03 15:26: 51 Yes clindamyci n HCl 300 mg capsule Take 1 capsule 3 times a day by oral route for 10 days. [facility] ciprofloxac in HCl 500 mg tablet 07-03 15:26: 51 Yes ciprofloxa monica 500 mg tablet [facility] chlorhexidi ne 0.12 % mouthwash 07-03 15:26: 51 Yes chlorhexid ine gluconate 0.12 % mouthwash USE TWICE DAILY [facility] cephALEXin 500 mg capsule 07-03 15:26: 51 Yes cephalexin 500 mg capsule [facility] busPIRone 5 mg tablet 07-03 15:26: 51 Yes buspirone 5 mg tablet [facility] azithromyci n 250 mg tablet 07-03 15:26: 51 Yes azithromyc in 250 mg tablet TAKE BY MOUTH 2 TABLETS TODAY THEN 1 TABLE DAILY FOR NEXT 4 DAYS [facility] ARIPiprazol e 5 mg tablet 07-03 15:26: 51 Yes aripiprazo le 5 mg tablet [facility] PNV 67-iron ps-folate no.1-dha (VITAFOL ULTRA) 29 mg iron- 1 mg-200 mg Cap 07-03 15:26: 51 Yes Vitafol Ultra 29 mg iron-1 mg-200 mg capsule [facility] norgestimat e-ethinyl estradioL 0.25-35 mg-mcg per tablet 07-03 15:26: 51 Yes Sprintec (28) 0.25 mg-35 mcg tablet TAKE 1 TABLET BY MOUTH EVERY DAY [facility] vit,calc76/ iron/folic (PRENATABS RX ORAL) 07-03 15:26: 51 Yes Prenatabs Rx 29 mg iron-1 mg tablet [facility] iron-FA-dha -epa-FAD-NA DH-be-mv (ENLYTE) 1.5 mg iron- 8.73 mg CpID 07-03 15:26: 51 Yes EnLyte 1.5 mg iron-8.73 mg capsule,im mediate - delay release [facility] PNV38/iron, crb,g/folic /dss/dha (CITRANATAL ASSURE ORAL) 07-03 15:26: 51 Yes CitraNatal Assure 35 mg iron-1 mg-50 mg-300 mg oral pack [facility] SUMAtriptan 50 mg tablet 07-03 15:26: 51 Yes sumatripta n 50 mg tablet [facility] sulfamethox azole-trime thoprim 800-160 mg per tablet 07-03 15:26: 51 Yes sulfametho xazole 800 mg-trimeth oprim 160 mg tablet [facility] predniSONE 20 mg tablet 07-03 15:26: 51 Yes prednisone 20 mg tablet [facility] prazosin 1 mg capsule 07-03 15:26: 51 Yes prazosin 1 mg capsule [facility] ondansetron 4 mg tablet 07-03 15:26: 51 Yes ondansetro n HCl 4 mg tablet TAKE 1 TABLET BY MOUTH EVERY 12 HOURS NEEDED [facility] ondansetron 4 mg disintegrat ing tablet 07-03 15:26: 51 Yes ondansetro n 4 mg disintegra ting tablet [facility] Nitrofurant oin&Nit. Macrocryst 100 mg capsule 07-03 15:26: 51 Yes nitrofuran toin monohydrat e/macrocry stals 100 mg capsule [facility] lurasidone 20 mg tablet 07-03 15:26: 51 Yes Latuda 20 mg tablet [facility] Sodium Fluoride, Dental Gel, 1.1 % Crea 07-03 15:26: 51 Yes Denta 5000 Plus 1.1 % cream USE TWICE A DAY IN THE MORNING AND AT NIGHT. DO NOT EAT OR DRINK FOR AT LEAST 30 MINS [facility] fluconazole 200 mg tablet 07-03 15:26: 51 Yes fluconazol e 200 mg tablet [facility] escitalopra m oxalate 20 mg tablet 07-03 15:26: 51 Yes escitalopr am 20 mg tablet [facility] doxylamine- pyridoxine, vit B6, 10-10 mg per tablet 07-03 15:26: 51 Yes Diclegis 10 mg-10 mg tablet,del ayed release TAKE 1 TABLET BY MOUTH THREE TIMES A DAY NEEDED AND 2 AT BEDTIME [facility] diphenoxyla te-atropine 2.5-0.025 mg tablet 07-03 15:26: 51 Yes diphenoxyl ate-atropi ne 2.5 mg-0.025 mg tablet [facility] dicyclomine 20 mg tablet 07-03 15:26: 51 Yes dicyclomin e 20 mg tablet TAKE 1 TABLET BY MOUTH EVERY 6 HOURS NEEDED [facility] clindamycin 300 mg capsule 07-03 15:26: 51 Yes clindamyci n HCl 300 mg capsule Take 1 capsule 3 times a day by oral route for 10 days. [facility] ciprofloxac in HCl 500 mg tablet 07-03 15:26: 51 Yes ciprofloxa monica 500 mg tablet [facility] chlorhexidi ne 0.12 % mouthwash 07-03 15:26: 51 Yes chlorhexid ine gluconate 0.12 % mouthwash USE TWICE DAILY [facility] cephALEXin 500 mg capsule 07-03 15:26: 51 Yes cephalexin 500 mg capsule [facility] busPIRone 5 mg tablet 07-03 15:26: 51 Yes buspirone 5 mg tablet [facility] azithromyci n 250 mg tablet 07-03 15:26: 51 Yes azithromyc in 250 mg tablet TAKE BY MOUTH 2 TABLETS TODAY THEN 1 TABLE DAILY FOR NEXT 4 DAYS [facility] ARIPiprazol e 5 mg tablet 07-03 15:26: 51 Yes aripiprazo le 5 mg tablet [facility] PNV 67-iron ps-folate no.1-dha (VITAFOL ULTRA) 29 mg iron- 1 mg-200 mg Cap 07-03 15:26: 51 Yes Vitafol Ultra 29 mg iron-1 mg-200 mg capsule [facility] norgestimat e-ethinyl estradioL 0.25-35 mg-mcg per tablet 07-03 15:26: 51 Yes Sprintec (28) 0.25 mg-35 mcg tablet TAKE 1 TABLET BY MOUTH EVERY DAY [facility] vit,calc76/ iron/folic (PRENATABS RX ORAL) 07-03 15:26: 51 Yes Prenatabs Rx 29 mg iron-1 mg tablet [facility] iron-FA-dha -epa-FAD-NA DH-be-mv (ENLYTE) 1.5 mg iron- 8.73 mg CpID 07-03 15:26: 51 Yes EnLyte 1.5 mg iron-8.73 mg capsule,im mediate - delay release [facility] PNV38/iron, crb,g/folic /dss/dha (CITRANATAL ASSURE ORAL) 07-03 15:26: 51 Yes CitraNatal Assure 35 mg iron-1 mg-50 mg-300 mg oral pack [facility] SUMAtriptan 50 mg tablet 07-03 15:26: 51 Yes sumatripta n 50 mg tablet [facility] sulfamethox azole-trime thoprim 800-160 mg per tablet 07-03 15:26: 51 Yes sulfametho xazole 800 mg-trimeth oprim 160 mg tablet [facility] predniSONE 20 mg tablet 07-03 15:26: 51 Yes prednisone 20 mg tablet [facility] prazosin 1 mg capsule 07-03 15:26: 51 Yes prazosin 1 mg capsule [facility] ondansetron 4 mg tablet 07-03 15:26: 51 Yes ondansetro n HCl 4 mg tablet TAKE 1 TABLET BY MOUTH EVERY 12 HOURS NEEDED [facility] ondansetron 4 mg disintegrat ing tablet 07-03 15:26: 51 Yes ondansetro n 4 mg disintegra ting tablet [facility] Nitrofurant oin&Nit. Macrocryst 100 mg capsule 07-03 15:26: 51 Yes nitrofuran toin monohydrat e/macrocry stals 100 mg capsule [facility] lurasidone 20 mg tablet 07-03 15:26: 51 Yes Latuda 20 mg tablet [facility] Sodium Fluoride, Dental Gel, 1.1 % Crea 07-03 15:26: 51 Yes Denta 5000 Plus 1.1 % cream USE TWICE A DAY IN THE MORNING AND AT NIGHT. DO NOT EAT OR DRINK FOR AT LEAST 30 MINS [facility] fluconazole 200 mg tablet 07-03 15:26: 51 Yes fluconazol e 200 mg tablet [facility] escitalopra m oxalate 20 mg tablet 07-03 15:26: 51 Yes escitalopr am 20 mg tablet [facility] doxylamine- pyridoxine, vit B6, 10-10 mg per tablet 07-03 15:26: 51 Yes Diclegis 10 mg-10 mg tablet,del ayed release TAKE 1 TABLET BY MOUTH THREE TIMES A DAY NEEDED AND 2 AT BEDTIME [facility] diphenoxyla te-atropine 2.5-0.025 mg tablet 07-03 15:26: 51 Yes diphenoxyl ate-atropi ne 2.5 mg-0.025 mg tablet [facility] dicyclomine 20 mg tablet 07-03 15:26: 51 Yes dicyclomin e 20 mg tablet TAKE 1 TABLET BY MOUTH EVERY 6 HOURS NEEDED [facility] clindamycin 300 mg capsule 07-03 15:26: 51 Yes clindamyci n HCl 300 mg capsule Take 1 capsule 3 times a day by oral route for 10 days. [facility] ciprofloxac in HCl 500 mg tablet 07-03 15:26: 51 Yes ciprofloxa monica 500 mg tablet [facility] chlorhexidi ne 0.12 % mouthwash 07-03 15:26: 51 Yes chlorhexid ine gluconate 0.12 % mouthwash USE TWICE DAILY [facility] cephALEXin 500 mg capsule 07-03 15:26: 51 Yes cephalexin 500 mg capsule [facility] busPIRone 5 mg tablet 07-03 15:26: 51 Yes buspirone 5 mg tablet [facility] azithromyci n 250 mg tablet 07-03 15:26: 51 Yes azithromyc in 250 mg tablet TAKE BY MOUTH 2 TABLETS TODAY THEN 1 TABLE DAILY FOR NEXT 4 DAYS [facility] ARIPiprazol e 5 mg tablet 07-03 15:26: 51 Yes aripiprazo le 5 mg tablet [facility] PNV 67-iron ps-folate no.1-dha (VITAFOL ULTRA) 29 mg iron- 1 mg-200 mg Cap 07-03 15:26: 51 Yes Vitafol Ultra 29 mg iron-1 mg-200 mg capsule [facility] norgestimat e-ethinyl estradioL 0.25-35 mg-mcg per tablet 07-03 15:26: 51 Yes Sprintec (28) 0.25 mg-35 mcg tablet TAKE 1 TABLET BY MOUTH EVERY DAY [facility] vit,calc76/ iron/folic (PRENATABS RX ORAL) 07-03 15:26: 51 Yes Prenatabs Rx 29 mg iron-1 mg tablet [facility] iron-FA-dha -epa-FAD-NA DH-be-mv (ENLYTE) 1.5 mg iron- 8.73 mg CpID 07-03 15:26: 51 Yes EnLyte 1.5 mg iron-8.73 mg capsule,im mediate - delay release [facility] PNV38/iron, crb,g/folic /dss/dha (CITRANATAL ASSURE ORAL) 07-03 15:26: 51 Yes CitraNatal Assure 35 mg iron-1 mg-50 mg-300 mg oral pack [facility] SUMAtriptan 50 mg tablet 07-03 15:26: 51 Yes sumatripta n 50 mg tablet [facility] sulfamethox azole-trime thoprim 800-160 mg per tablet 07-03 15:26: 51 Yes sulfametho xazole 800 mg-trimeth oprim 160 mg tablet [facility] predniSONE 20 mg tablet 07-03 15:26: 51 Yes prednisone 20 mg tablet [facility] prazosin 1 mg capsule 07-03 15:26: 51 Yes prazosin 1 mg capsule [facility] ondansetron 4 mg tablet 07-03 15:26: 51 Yes ondansetro n HCl 4 mg tablet TAKE 1 TABLET BY MOUTH EVERY 12 HOURS NEEDED [facility] ondansetron 4 mg disintegrat ing tablet 07-03 15:26: 51 Yes ondansetro n 4 mg disintegra ting tablet [facility] Nitrofurant oin&Nit. Macrocryst 100 mg capsule 07-03 15:26: 51 Yes nitrofuran toin monohydrat e/macrocry stals 100 mg capsule [facility] lurasidone 20 mg tablet 07-03 15:26: 51 Yes Latuda 20 mg tablet [facility] Sodium Fluoride, Dental Gel, 1.1 % Crea 07-03 15:26: 51 Yes Denta 5000 Plus 1.1 % cream USE TWICE A DAY IN THE MORNING AND AT NIGHT. DO NOT EAT OR DRINK FOR AT LEAST 30 MINS [facility] fluconazole 200 mg tablet 07-03 15:26: 51 Yes fluconazol e 200 mg tablet [facility] escitalopra m oxalate 20 mg tablet 07-03 15:26: 51 Yes escitalopr am 20 mg tablet [facility] doxylamine- pyridoxine, vit B6, 10-10 mg per tablet 07-03 15:26: 51 Yes Diclegis 10 mg-10 mg tablet,del ayed release TAKE 1 TABLET BY MOUTH THREE TIMES A DAY NEEDED AND 2 AT BEDTIME [facility] diphenoxyla te-atropine 2.5-0.025 mg tablet 07-03 15:26: 51 Yes diphenoxyl ate-atropi ne 2.5 mg-0.025 mg tablet [facility] dicyclomine 20 mg tablet 07-03 15:26: 51 Yes dicyclomin e 20 mg tablet TAKE 1 TABLET BY MOUTH EVERY 6 HOURS NEEDED [facility] clindamycin 300 mg capsule 07-03 15:26: 51 Yes clindamyci n HCl 300 mg capsule Take 1 capsule 3 times a day by oral route for 10 days. [facility] ciprofloxac in HCl 500 mg tablet 07-03 15:26: 51 Yes ciprofloxa monica 500 mg tablet [facility] chlorhexidi ne 0.12 % mouthwash 07-03 15:26: 51 Yes chlorhexid ine gluconate 0.12 % mouthwash USE TWICE DAILY [facility] cephALEXin 500 mg capsule 07-03 15:26: 51 Yes cephalexin 500 mg capsule [facility] busPIRone 5 mg tablet 07-03 15:26: 51 Yes buspirone 5 mg tablet [facility] azithromyci n 250 mg tablet 07-03 15:26: 51 Yes azithromyc in 250 mg tablet TAKE BY MOUTH 2 TABLETS TODAY THEN 1 TABLE DAILY FOR NEXT 4 DAYS [facility] ARIPiprazol e 5 mg tablet 07-03 15:26: 51 Yes aripiprazo le 5 mg tablet [facility] PNV 67-iron ps-folate no.1-dha (VITAFOL ULTRA) 29 mg iron- 1 mg-200 mg Cap 07-03 15:26: 51 Yes Vitafol Ultra 29 mg iron-1 mg-200 mg capsule [facility] norgestimat e-ethinyl estradioL 0.25-35 mg-mcg per tablet 07-03 15:26: 51 Yes Sprintec (28) 0.25 mg-35 mcg tablet TAKE 1 TABLET BY MOUTH EVERY DAY [facility] vit,calc76/ iron/folic (PRENATABS RX ORAL) 07-03 15:26: 51 Yes Prenatabs Rx 29 mg iron-1 mg tablet [facility] iron-FA-dha -epa-FAD-NA DH-be-mv (ENLYTE) 1.5 mg iron- 8.73 mg CpID 07-03 15:26: 51 Yes EnLyte 1.5 mg iron-8.73 mg capsule,im mediate - delay release [facility] PNV38/iron, crb,g/folic /dss/dha (CITRANATAL ASSURE ORAL) 07-03 15:26: 51 Yes CitraNatal Assure 35 mg iron-1 mg-50 mg-300 mg oral pack [facility] SUMAtriptan 50 mg tablet 07-03 15:26: 51 Yes sumatripta n 50 mg tablet [facility] sulfamethox azole-trime thoprim 800-160 mg per tablet 07-03 15:26: 51 Yes sulfametho xazole 800 mg-trimeth oprim 160 mg tablet [facility] predniSONE 20 mg tablet 07-03 15:26: 51 Yes prednisone 20 mg tablet [facility] prazosin 1 mg capsule 07-03 15:26: 51 Yes prazosin 1 mg capsule [facility] ondansetron 4 mg tablet 07-03 15:26: 51 Yes ondansetro n HCl 4 mg tablet TAKE 1 TABLET BY MOUTH EVERY 12 HOURS NEEDED [facility] ondansetron 4 mg disintegrat ing tablet 07-03 15:26: 51 Yes ondansetro n 4 mg disintegra ting tablet [facility] Nitrofurant oin&Nit. Macrocryst 100 mg capsule 07-03 15:26: 51 Yes nitrofuran toin monohydrat e/macrocry stals 100 mg capsule [facility] lurasidone 20 mg tablet 07-03 15:26: 51 Yes Latuda 20 mg tablet [facility] Sodium Fluoride, Dental Gel, 1.1 % Crea 07-03 15:26: 51 Yes Denta 5000 Plus 1.1 % cream USE TWICE A DAY IN THE MORNING AND AT NIGHT. DO NOT EAT OR DRINK FOR AT LEAST 30 MINS [facility] fluconazole 200 mg tablet 07-03 15:26: 51 Yes fluconazol e 200 mg tablet [facility] escitalopra m oxalate 20 mg tablet 07-03 15:26: 51 Yes escitalopr am 20 mg tablet [facility] doxylamine- pyridoxine, vit B6, 10-10 mg per tablet 07-03 15:26: 51 Yes Diclegis 10 mg-10 mg tablet,del ayed release TAKE 1 TABLET BY MOUTH THREE TIMES A DAY NEEDED AND 2 AT BEDTIME [facility] diphenoxyla te-atropine 2.5-0.025 mg tablet 07-03 15:26: 51 Yes diphenoxyl ate-atropi ne 2.5 mg-0.025 mg tablet [facility] dicyclomine 20 mg tablet 07-03 15:26: 51 Yes dicyclomin e 20 mg tablet TAKE 1 TABLET BY MOUTH EVERY 6 HOURS NEEDED [facility] clindamycin 300 mg capsule 07-03 15:26: 51 Yes clindamyci n HCl 300 mg capsule Take 1 capsule 3 times a day by oral route for 10 days. [facility] ciprofloxac in HCl 500 mg tablet 07-03 15:26: 51 Yes ciprofloxa monica 500 mg tablet [facility] chlorhexidi ne 0.12 % mouthwash 07-03 15:26: 51 Yes chlorhexid ine gluconate 0.12 % mouthwash USE TWICE DAILY [facility] cephALEXin 500 mg capsule 07-03 15:26: 51 Yes cephalexin 500 mg capsule [facility] busPIRone 5 mg tablet 07-03 15:26: 51 Yes buspirone 5 mg tablet [facility] azithromyci n 250 mg tablet 07-03 15:26: 51 Yes azithromyc in 250 mg tablet TAKE BY MOUTH 2 TABLETS TODAY THEN 1 TABLE DAILY FOR NEXT 4 DAYS [facility] ARIPiprazol e 5 mg tablet 07-03 15:26: 51 Yes aripiprazo le 5 mg tablet [facility] PNV 67-iron ps-folate no.1-dha (VITAFOL ULTRA) 29 mg iron- 1 mg-200 mg Cap 07-03 15:26: 51 Yes Vitafol Ultra 29 mg iron-1 mg-200 mg capsule [facility] norgestimat e-ethinyl estradioL 0.25-35 mg-mcg per tablet 07-03 15:26: 51 Yes Sprintec (28) 0.25 mg-35 mcg tablet TAKE 1 TABLET BY MOUTH EVERY DAY [facility] vit,calc76/ iron/folic (PRENATABS RX ORAL) 07-03 15:26: 51 Yes Prenatabs Rx 29 mg iron-1 mg tablet [facility] iron-FA-dha -epa-FAD-NA DH-be-mv (ENLYTE) 1.5 mg iron- 8.73 mg CpID 07-03 15:26: 51 Yes EnLyte 1.5 mg iron-8.73 mg capsule,im mediate - delay release [facility] PNV38/iron, crb,g/folic /dss/dha (CITRANATAL ASSURE ORAL) 07-03 15:26: 51 Yes CitraNatal Assure 35 mg iron-1 mg-50 mg-300 mg oral pack [facility] SUMAtriptan 50 mg tablet 07-03 15:26: 51 Yes sumatripta n 50 mg tablet [facility] sulfamethox azole-trime thoprim 800-160 mg per tablet 07-03 15:26: 51 Yes sulfametho xazole 800 mg-trimeth oprim 160 mg tablet [facility] predniSONE 20 mg tablet 07-03 15:26: 51 Yes prednisone 20 mg tablet [facility] prazosin 1 mg capsule 07-03 15:26: 51 Yes prazosin 1 mg capsule [facility] ondansetron 4 mg tablet 07-03 15:26: 51 Yes ondansetro n HCl 4 mg tablet TAKE 1 TABLET BY MOUTH EVERY 12 HOURS NEEDED [facility] ondansetron 4 mg disintegrat ing tablet 07-03 15:26: 51 Yes ondansetro n 4 mg disintegra ting tablet [facility] Nitrofurant oin&Nit. Macrocryst 100 mg capsule 07-03 15:26: 51 Yes nitrofuran toin monohydrat e/macrocry stals 100 mg capsule [facility] lurasidone 20 mg tablet 07-03 15:26: 51 Yes Latuda 20 mg tablet [facility] Sodium Fluoride, Dental Gel, 1.1 % Crea 07-03 15:26: 51 Yes Denta 5000 Plus 1.1 % cream USE TWICE A DAY IN THE MORNING AND AT NIGHT. DO NOT EAT OR DRINK FOR AT LEAST 30 MINS [facility] fluconazole 200 mg tablet 07-03 15:26: 51 Yes fluconazol e 200 mg tablet [facility] escitalopra m oxalate 20 mg tablet 07-03 15:26: 51 Yes escitalopr am 20 mg tablet [facility] doxylamine- pyridoxine, vit B6, 10-10 mg per tablet 07-03 15:26: 51 Yes Diclegis 10 mg-10 mg tablet,del ayed release TAKE 1 TABLET BY MOUTH THREE TIMES A DAY NEEDED AND 2 AT BEDTIME [facility] diphenoxyla te-atropine 2.5-0.025 mg tablet 07-03 15:26: 51 Yes diphenoxyl ate-atropi ne 2.5 mg-0.025 mg tablet [facility] dicyclomine 20 mg tablet 07-03 15:26: 51 Yes dicyclomin e 20 mg tablet TAKE 1 TABLET BY MOUTH EVERY 6 HOURS NEEDED [facility] clindamycin 300 mg capsule 07-03 15:26: 51 Yes clindamyci n HCl 300 mg capsule Take 1 capsule 3 times a day by oral route for 10 days. [facility] ciprofloxac in HCl 500 mg tablet 07-03 15:26: 51 Yes ciprofloxa monica 500 mg tablet [facility] chlorhexidi ne 0.12 % mouthwash 07-03 15:26: 51 Yes chlorhexid ine gluconate 0.12 % mouthwash USE TWICE DAILY [facility] cephALEXin 500 mg capsule 07-03 15:26: 51 Yes cephalexin 500 mg capsule [facility] busPIRone 5 mg tablet 07-03 15:26: 51 Yes buspirone 5 mg tablet [facility] azithromyci n 250 mg tablet 07-03 15:26: 51 Yes azithromyc in 250 mg tablet TAKE BY MOUTH 2 TABLETS TODAY THEN 1 TABLE DAILY FOR NEXT 4 DAYS [facility] ARIPiprazol e 5 mg tablet 07-03 15:26: 51 Yes aripiprazo le 5 mg tablet [facility] PNV 67-iron ps-folate no.1-dha (VITAFOL ULTRA) 29 mg iron- 1 mg-200 mg Cap 07-03 15:26: 51 Yes Vitafol Ultra 29 mg iron-1 mg-200 mg capsule [facility] norgestimat e-ethinyl estradioL 0.25-35 mg-mcg per tablet 07-03 15:26: 51 Yes Sprintec (28) 0.25 mg-35 mcg tablet TAKE 1 TABLET BY MOUTH EVERY DAY [facility] vit,calc76/ iron/folic (PRENATABS RX ORAL) 07-03 15:26: 51 Yes Prenatabs Rx 29 mg iron-1 mg tablet [facility] iron-FA-dha -epa-FAD-NA DH-be-mv (ENLYTE) 1.5 mg iron- 8.73 mg CpID 07-03 15:26: 51 Yes EnLyte 1.5 mg iron-8.73 mg capsule,im mediate - delay release [facility] PNV38/iron, crb,g/folic /dss/dha (CITRANATAL ASSURE ORAL) 07-03 15:26: 51 Yes CitraNatal Assure 35 mg iron-1 mg-50 mg-300 mg oral pack [facility] SUMAtriptan 50 mg tablet 07-03 15:26: 51 Yes sumatripta n 50 mg tablet [facility] SUMAtriptan 50 mg tablet 07-03 15:26: 51 Yes sumatripta n 50 mg tablet [facility] SUMAtriptan 50 mg tablet 07-03 15:26: 51 Yes sumatripta n 50 mg tablet [facility] SUMAtriptan 50 mg tablet 2021-0 07-03 15:26: 51 Yes sumatripta n 50 mg tablet [facility] SUMAtriptan 50 mg tablet 2021-0 07-03 15:26: 51 Yes sumatripta n 50 mg tablet [facility] SUMAtriptan 50 mg tablet 2021-0 07-03 15:26: 51 Yes sumatripta n 50 mg tablet [facility] QUEtiapine 100 mg tablet 0 03-05 00:00: 00 Yes [facility] FLUoxetine 40 mg capsule 0 03-05 00:00: 00 Yes [facility] QUEtiapine 100 mg tablet 0 03-05 00:00: 00 Yes [facility] FLUoxetine 40 mg capsule 2021-0 03-05 00:00: 00 Yes [facility] QUEtiapine 100 mg tablet 0 03-05 00:00: [address] [facility] FLUoxetine 40 mg capsule 0 03-05 00:00: 00 Yes [facility] QUEtiapine 100 mg tablet 0 03-05 00:00: [address] [facility] FLUoxetine 40 mg capsule 0 03-05 00:00: 00 Yes [facility] QUEtiapine 100 mg tablet 0 03-05 00:00: [address] [facility] FLUoxetine 40 mg capsule 2021-0 03-05 00:00: 00 Yes [facility] QUEtiapine 100 mg tablet 0 03-05 00:00: [address] [facility] FLUoxetine 40 mg capsule 0 03-05 00:00: [address] [facility] QUEtiapine 100 mg tablet 0 03-05 00:00: 00 Yes [facility] FLUoxetine 40 mg capsule 0 03-05 00:00: 00 Yes [facility] QUEtiapine 100 mg tablet 2021-0 03-05 00:00: 00 Yes [facility] FLUoxetine 40 mg capsule 2-0 03-05 00:00: 00 Yes [facility] QUEtiapine 100 mg tablet 2021-0 03-05 00:00: 00 Yes [facility] FLUoxetine 40 mg capsule 2021-0 03-05 00:00: 00 Yes [facility] QUEtiapine 100 mg tablet 2-0 03-05 00:00: 00 Yes [facility] FLUoxetine 40 mg capsule 2021-0 03-05 00:00: 00 Yes [facility] QUEtiapine 100 mg tablet 2021-0 03-05 00:00: 00 Yes [facility] FLUoxetine 40 mg capsule 2021-0 03-05 00:00: 00 Yes [facility] QUEtiapine 100 mg tablet 2021-0 03-05 00:00: 00 Yes [facility] FLUoxetine 40 mg capsule 2021-0 03-05 00:00: 00 Yes [facility] QUEtiapine 100 mg tablet 2021-0 03-05 00:00: 00 Yes [facility] FLUoxetine 40 mg capsule 2021-0 03-05 00:00: 00 Yes [facility] QUEtiapine 100 mg tablet 2021-0 03-05 00:00: 00 Yes [facility] FLUoxetine 40 mg capsule 2021-0 03-05 00:00: 00 Yes [facility] QUEtiapine 100 mg tablet 2021-0 03-05 00:00: 00 Yes [facility] FLUoxetine 40 mg capsule 2-0 03-05 00:00: 00 Yes [facility] QUEtiapine 100 mg tablet 2021-0 03-05 00:00: 00 Yes [facility] FLUoxetine 40 mg capsule 2-0 03-05 00:00: 00 Yes [facility] QUEtiapine 100 mg tablet 2021-0 03-05 00:00: 00 Yes [facility] FLUoxetine 40 mg capsule 2021-0 03-05 00:00: 00 Yes [facility] QUEtiapine 100 mg tablet 2-0 03-05 00:00: 00 Yes [facility] FLUoxetine 40 mg capsule 0 03-05 00:00: [address] [facility] QUEtiapine 100 mg tablet 0 03-05 00:00: [address] [facility] FLUoxetine 40 mg capsule 0 03-05 00:00: 00 Yes [facility] FLUoxetine 40 mg capsule 0 03-05 00:00: 00 Yes [facility] FLUoxetine 40 mg capsule 0 03-05 00:00: 00 Yes [facility] FLUoxetine 40 mg capsule 0 03-05 00:00: 00 Yes [facility] QUEtiapine 100 mg tablet 0 03-05 00:00: 00 10-08 00:00 :00 No [facility] QUEtiapine 100 mg tablet 0 03-05 00:00: 00 10-08 00:00 :00 No [facility] QUEtiapine 100 mg tablet 0 03-05 00:00: 00 10-08 00:00 :00 No [facility] QUEtiapine 100 mg tablet 0 03-05 00:00: 00 10-08 00:00 :00 No [facility] FLUoxetine 40 mg capsule 0 03-05 00:00: 00 10-08 00:00 :00 No [facility] QUEtiapine 100 mg tablet 0 03-05 00:00: 00 10-08 00:00 :00 No [facility] FLUoxetine 40 mg capsule 0 03-05 00:00: 00 10-08 00:00 :00 No [facility] QUEtiapine 100 mg tablet 0 03-05 00:00: 00 10-08 00:00 :00 No [facility] FLUoxetine 40 mg capsule 0 03-05 00:00: 00 10-08 00:00 :00 No [facility] cetirizine 10 mg tablet 2021-0 02-25 00:00: 00 Yes 10mg Take 10 mg by mouth daily. [facility] cetirizine 10 mg tablet 2-0 4-18 00:00: 00 Yes 10mg Take 10 mg by mouth daily. [facility] cetirizine 10 mg tablet 2-0 4-18 00:00: 00 Yes 10mg Take 10 mg by mouth daily. [facility] cetirizine 10 mg tablet 2-0 4-18 00:00: 00 Yes 10mg Take 10 mg by mouth daily. [facility] cetirizine 10 mg tablet 2-0 4-18 00:00: 00 Yes 10mg Take 10 mg by mouth daily. [facility] cetirizine 10 mg tablet 2-0 4-18 00:00: 00 Yes 10mg Take 10 mg by mouth daily. [facility] cetirizine 10 mg tablet 2-0 4-18 00:00: 00 Yes 10mg Take 10 mg by mouth daily. [facility] cetirizine 10 mg tablet 2-0 4-18 00:00: 00 Yes 10mg Take 10 mg by mouth daily. [facility] cetirizine 10 mg tablet 2-0 4-18 00:00: 00 Yes 10mg Take 10 mg by mouth daily. [facility] cetirizine 10 mg tablet 2-0 4-18 00:00: 00 Yes 10mg Take 10 mg by mouth daily. [facility] cetirizine 10 mg tablet 2-0 4-18 00:00: 00 Yes 10mg Take 10 mg by mouth daily. [facility] cetirizine 10 mg tablet 2-0 4-18 00:00: 00 Yes 10mg Take 10 mg by mouth daily. [facility] cetirizine 10 mg tablet 2-0 4-18 00:00: 00 Yes 10mg Take 10 mg by mouth daily. [facility] cetirizine 10 mg tablet 2022-0 4-18 00:00: 00 Yes 10mg Take 10 mg by mouth daily. [facility] cetirizine 10 mg tablet 2-0 4-18 00:00: 00 Yes 10mg Take 10 mg by mouth daily. [facility] cetirizine 10 mg tablet 2-0 4-18 00:00: 00 Yes 10mg Take 10 mg by mouth daily. [facility] cetirizine 10 mg tablet 2-0 4-18 00:00: 00 Yes 10mg Take 10 mg by mouth daily. [facility] cetirizine 10 mg tablet 2-0 4-18 00:00: 00 Yes 10mg Take 10 mg by mouth daily. [facility] cetirizine 10 mg tablet 2-0 4-18 00:00: 00 Yes 10mg Take 10 mg by mouth daily. [facility] cetirizine 10 mg tablet 2-0 4-18 00:00: 00 10-08 00:00 :00 No 10mg Take 10 mg by mouth daily. [facility] cetirizine 10 mg tablet 2-0 4-18 00:00: 00 10-08 00:00 :00 No 10mg Take 10 mg by mouth daily. [facility] cetirizine 10 mg tablet 2-0 4-18 00:00: 00 10-08 00:00 :00 No 10mg Take 10 mg by mouth daily. [facility] cetirizine 10 mg tablet 2-0 4-18 00:00: 00 10-08 00:00 :00 No 10mg Take 10 mg by mouth daily. [facility] cetirizine 10 mg tablet 2-0 4-18 00:00: 00 10-08 00:00 :00 No 10mg Take 10 mg by mouth daily. [facility] cetirizine 10 mg tablet 2-0 4-18 00:00: 00 10-08 00:00 :00 No 10mg Take 10 mg by mouth daily. [facility] albuterol 90 mcg/actuati on inhaler 2020-11- 16:22: 14 Yes 2{puff} Inhale 2 Puffs every 6 (six) hours as needed. [facility] albuterol 2.5 mg /3 mL (0.083 %) nebulizer solution 2020-11 16:22: 14 Yes 2.5mg Inhale 2.5 mg every 4 (four) hours as needed. [facility] FLUoxetine 20 mg capsule 2020-11 16:22: 14 Yes fluoxetine 20 mg capsule TAKE 1 CAPSULE BY MOUTH EVERY DAY [facility] albuterol 90 mcg/actuati on inhaler 2020-11 16:22: 14 Yes 2{puff} Inhale 2 Puffs every 6 (six) hours as needed. [facility] albuterol 2.5 mg /3 mL (0.083 %) nebulizer solution 2020-11 16:22: 14 Yes 2.5mg Inhale 2.5 mg every 4 (four) hours as needed. [facility] FLUoxetine 20 mg capsule 2020-11 16:22: 14 Yes fluoxetine 20 mg capsule TAKE 1 CAPSULE BY MOUTH EVERY DAY [facility] albuterol 90 mcg/actuati on inhaler 2020-11 16:22: 14 Yes 2{puff} Inhale 2 Puffs every 6 (six) hours as needed. [facility] albuterol 2.5 mg /3 mL (0.083 %) nebulizer solution 2020-11 16:22: 14 Yes 2.5mg Inhale 2.5 mg every 4 (four) hours as needed. [facility] FLUoxetine 20 mg capsule 2020-11 16:22: 14 Yes fluoxetine 20 mg capsule TAKE 1 CAPSULE BY MOUTH EVERY DAY [facility] albuterol 90 mcg/actuati on inhaler 2020-11 16:22: 14 Yes 2{puff} Inhale 2 Puffs every 6 (six) hours as needed. [facility] albuterol 2.5 mg /3 mL (0.083 %) nebulizer solution 2020-11 16:22: 14 Yes 2.5mg Inhale 2.5 mg every 4 (four) hours as needed. [facility] FLUoxetine 20 mg capsule 2020-11 16:22: 14 Yes fluoxetine 20 mg capsule TAKE 1 CAPSULE BY MOUTH EVERY DAY [facility] mcg/actuati on inhaler 2020-11 16:22: 14 Yes 2{puff} Inhale 2 Puffs every 6 (six) hours as needed. [facility] albuterol 2.5 mg /3 mL (0.083 %) nebulizer solution 2020-11 16:22: 14 Yes 2.5mg Inhale 2.5 mg every 4 (four) hours as needed. [facility] FLUoxetine 20 mg capsule 2020-11 16:22: 14 Yes fluoxetine 20 mg capsule TAKE 1 CAPSULE BY MOUTH EVERY DAY [facility] 90 mcg/actuati on inhaler 2020-11 16:22: 14 Yes 2{puff} Inhale 2 Puffs every 6 (six) hours as needed. [facility] albuterol 2.5 mg /3 mL (0.083 %) nebulizer solution 2020-11 16:22: 14 Yes 2.5mg Inhale 2.5 mg every 4 (four) hours as needed. [facility] FLUoxetine 20 mg capsule 2020-11 16:22: 14 Yes fluoxetine 20 mg capsule TAKE 1 CAPSULE BY MOUTH EVERY DAY [facility] albuterol 90 mcg/actuati on inhaler 2020-11 16:22: 14 Yes 2{puff} Inhale 2 Puffs every 6 (six) hours as needed. [facility] albuterol 2.5 mg /3 mL (0.083 %) nebulizer solution 2020-11 16:22: 14 Yes 2.5mg Inhale 2.5 mg every 4 (four) hours as needed. [facility] FLUoxetine 20 mg capsule 2020-11 16:22: 14 Yes fluoxetine 20 mg capsule TAKE 1 CAPSULE BY MOUTH EVERY DAY [facility] albuterol 90 mcg/actuati on inhaler 2020-11 16:22: 14 Yes 2{puff} Inhale 2 Puffs every 6 (six) hours as needed. [facility] albuterol 2.5 mg /3 mL (0.083 %) nebulizer solution 2020-11 16:22: 14 Yes 2.5mg Inhale 2.5 mg every 4 (four) hours as needed. [facility] FLUoxetine 20 mg capsule 2020-11 16:22: 14 Yes fluoxetine 20 mg capsule TAKE 1 CAPSULE BY MOUTH EVERY DAY [facility] al[facility] 90 mcg/actuati on inhaler 2020-11 16:22: 14 Yes 2{puff} Inhale 2 Puffs every 6 (six) hours as needed. [facility] albuterol 2.5 mg /3 mL (0.083 %) nebulizer solution 2020-11 16:22: 14 Yes 2.5mg Inhale 2.5 mg every 4 (four) hours as needed. [facility] FLUoxetine 20 mg capsule 2020-11 16:22: 14 Yes fluoxetine 20 mg capsule TAKE 1 CAPSULE BY MOUTH EVERY DAY [facility] albuterol 90 mcg/actuati on inhaler 2020-11 16:22: 14 Yes 2{puff} Inhale 2 Puffs every 6 (six) hours as needed. [facility] albuterol 2.5 mg /3 mL (0.083 %) nebulizer solution 2020-11 16:22: 14 Yes 2.5mg Inhale 2.5 mg every 4 (four) hours as needed. [facility] FLUoxetine 20 mg capsule 2020-11 16:22: 14 Yes fluoxetine 20 mg capsule TAKE 1 CAPSULE BY MOUTH EVERY DAY [facility] al[facility] 90 mcg/actuati on inhaler 2020-11 16:22: 14 Yes 2{puff} Inhale 2 Puffs every 6 (six) hours as needed. [facility] albuterol 2.5 mg /3 mL (0.083 %) nebulizer solution 2020-11 16:22: 14 Yes 2.5mg Inhale 2.5 mg every 4 (four) hours as needed. [facility] FLUoxetine 20 mg capsule 2020-11 16:22: 14 Yes fluoxetine 20 mg capsule TAKE 1 CAPSULE BY MOUTH EVERY DAY [facility] al[facility]er[facility] 90 mcg/actuati on inhaler 2020-11 16:22: 14 Yes 2{puff} Inhale 2 Puffs every 6 (six) hours as needed. [facility] albuterol 2.5 mg /3 mL (0.083 %) nebulizer solution 2020-11 16:22: 14 Yes 2.5mg Inhale 2.5 mg every 4 (four) hours as needed. [facility] FLUoxetine 20 mg capsule 2020-11 16:22: 14 Yes fluoxetine 20 mg capsule TAKE 1 CAPSULE BY MOUTH EVERY DAY [facility] albuterol 90 mcg/actuati on inhaler 2020-11 16:22: 14 Yes 2{puff} Inhale 2 Puffs every 6 (six) hours as needed. [facility] albuterol 2.5 mg /3 mL (0.083 %) nebulizer solution 2020-11 16:22: 14 Yes 2.5mg Inhale 2.5 mg every 4 (four) hours as needed. [facility] FLUoxetine 20 mg capsule 2020-11 16:22: 14 Yes fluoxetine 20 mg capsule TAKE 1 CAPSULE BY MOUTH EVERY DAY [facility] FLUoxetine 20 mg capsule 2020-11 16:22: 14 Yes fluoxetine 20 mg capsule TAKE 1 CAPSULE BY MOUTH EVERY DAY [facility] FLUoxetine 20 mg capsule 2020-11 16:22: 14 Yes fluoxetine 20 mg capsule TAKE 1 CAPSULE BY MOUTH EVERY DAY [facility] FLUoxetine 20 mg capsule 2020-11 16:22: 14 Yes fluoxetine 20 mg capsule TAKE 1 CAPSULE BY MOUTH EVERY DAY [facility] FLUoxetine 20 mg capsule 2020-11 16:22: 14 Yes fluoxetine 20 mg capsule TAKE 1 CAPSULE BY MOUTH EVERY DAY [facility] FLUoxetine 20 mg capsule 2020-11 16:22: 14 Yes fluoxetine 20 mg capsule TAKE 1 CAPSULE BY MOUTH EVERY DAY [facility] FLUoxetine 20 mg capsule 2020-11 16:22: 14 Yes fluoxetine 20 mg capsule TAKE 1 CAPSULE BY MOUTH EVERY DAY [facility] FLUoxetine 20 mg capsule 2020-11 16:22: 14 Yes fluoxetine 20 mg capsule TAKE 1 CAPSULE BY MOUTH EVERY DAY [facility] FLUoxetine 20 mg capsule 2020-11 16:22: 14 Yes fluoxetine 20 mg capsule TAKE 1 CAPSULE BY MOUTH EVERY DAY [facility] FLUoxetine 20 mg capsule 2020-11 16:22: 14 Yes fluoxetine 20 mg capsule TAKE 1 CAPSULE BY MOUTH EVERY DAY [facility] FLUoxetine 20 mg capsule 2020-11 16:22: 14 Yes fluoxetine 20 mg capsule TAKE 1 CAPSULE BY MOUTH EVERY DAY [facility] FLUoxetine 20 mg capsule 2020-11 16:22: 14 Yes fluoxetine 20 mg capsule TAKE 1 CAPSULE BY MOUTH EVERY DAY [facility] FLUoxetine 20 mg capsule 2020-11 16:22: 14 Yes fluoxetine 20 mg capsule TAKE 1 CAPSULE BY MOUTH EVERY DAY [facility] docusate calcium 240 mg capsule 2020-11 00:00: 00 Yes [id number] 240mg Take 1 capsule by mouth once daily as needed for Constipati on. [facility] ferrous sulfate 325 mg (65 mg iron) tablet 2020-11 00:00: 00 Yes [id number] 325mg Take 1 tablet by mouth 2 (two) times daily. [facility] docusate calcium 240 mg capsule 2020-11 00:00: 00 Yes [id number] 240mg Take 1 capsule by mouth once daily as needed for Constipati on. [facility] ferrous sulfate 325 mg (65 mg iron) tablet 2020-11 00:00: 00 Yes [id number] 325mg Take 1 tablet by mouth 2 (two) times daily. [facility] docusate calcium 240 mg capsule 2020-11 00:00: 00 Yes [id number] 240mg Take 1 capsule by mouth once daily as needed for Constipati on. [facility] ferrous sulfate 325 mg (65 mg iron) tablet 2020-11 00:00: 00 Yes [id number] 325mg Take 1 tablet by mouth 2 (two) times daily. [facility] docusate calcium 240 mg capsule 2020-11 00:00: 00 Yes [id number] 240mg Take 1 capsule by mouth once daily as needed for Constipati on. [facility] ferrous sulfate 325 mg (65 mg iron) tablet 2020-11 00:00: 00 Yes [id number] 325mg Take 1 tablet by mouth 2 (two) times daily. [facility] docusate calcium 240 mg capsule 2020-11 00:00: 00 Yes [id number] 240mg Take 1 capsule by mouth once daily as needed for Constipati on. [facility] ferrous sulfate 325 mg (65 mg iron) tablet 2020-11 00:00: 00 Yes [id number] 325mg Take 1 tablet by mouth 2 (two) times daily. [facility] docusate calcium 240 mg capsule 2020-11 00:00: 00 Yes [id number] 240mg Take 1 capsule by mouth once daily as needed for Constipati on. [facility] ferrous sulfate 325 mg (65 mg iron) tablet 2020-11 00:00: 00 Yes [id number] 325mg Take 1 tablet by mouth 2 (two) times daily. [facility] docusate calcium 240 mg capsule 2020-11 00:00: 00 Yes [id number] 240mg Take 1 capsule by mouth once daily as needed for Constipati on. [facility] ferrous sulfate 325 mg (65 mg iron) tablet 2020-11 00:00: 00 Yes [id number] 325mg Take 1 tablet by mouth 2 (two) times daily. [facility] docusate calcium 240 mg capsule 2020-11 00:00: 00 Yes [id number] 240mg Take 1 capsule by mouth once daily as needed for Constipati on. [facility] ferrous sulfate 325 mg (65 mg iron) tablet 2020-11 00:00: 00 Yes [id number] 325mg Take 1 tablet by mouth 2 (two) times daily. [facility] docusate calcium 240 mg capsule 2020-11 00:00: 00 Yes [id number] 240mg Take 1 capsule by mouth once daily as needed for Constipati on. [facility] ferrous sulfate 325 mg (65 mg iron) tablet 2020-11 00:00: 00 Yes [id number] 325mg Take 1 tablet by mouth 2 (two) times daily. [facility] docusate calcium 240 mg capsule 2020-11 00:00: 00 Yes [id number] 240mg Take 1 capsule by mouth once daily as needed for Constipati on. [facility] ferrous sulfate 325 mg (65 mg iron) tablet 2020-11 00:00: 00 Yes [id number] 325mg Take 1 tablet by mouth 2 (two) times daily. [facility] docusate calcium 240 mg capsule 2020-11 00:00: 00 Yes [id number] 240mg Take 1 capsule by mouth once daily as needed for Constipati on. [facility] ferrous sulfate 325 mg (65 mg iron) tablet 2020-11 00:00: 00 Yes [id number] 325mg Take 1 tablet by mouth 2 (two) times daily. [facility] docusate calcium 240 mg capsule 2020-11 00:00: 00 Yes [id number] 240mg Take 1 capsule by mouth once daily as needed for Constipati on. [facility] ferrous sulfate 325 mg (65 mg iron) tablet 2020-11 00:00: 00 Yes [id number] 325mg Take 1 tablet by mouth 2 (two) times daily. [facility] docusate calcium 240 mg capsule 2020-11 00:00: 00 Yes [id number] 240mg Take 1 capsule by mouth once daily as needed for Constipati on. [facility] ferrous sulfate 325 mg (65 mg iron) tablet 2020-11 00:00: 00 Yes [id number] 325mg Take 1 tablet by mouth 2 (two) times daily. [facility] docusate calcium 240 mg capsule 2020-11 00:00: 00 Yes [id number] 240mg Take 1 capsule by mouth once daily as needed for Constipati on. [facility] ferrous sulfate 325 mg (65 mg iron) tablet 2020-11 00:00: 00 Yes [id number] 325mg Take 1 tablet by mouth 2 (two) times daily. [facility] docusate calcium 240 mg capsule 2020-11 00:00: 00 Yes [id number] 240mg Take 1 capsule by mouth once daily as needed for Constipati on. [facility] ferrous sulfate 325 mg (65 mg iron) tablet 2020-11 00:00: 00 Yes [id number] 325mg Take 1 tablet by mouth 2 (two) times daily. [facility] docusate calcium 240 mg capsule 2020-11 00:00: 00 Yes [id number] 240mg Take 1 capsule by mouth once daily as needed for Constipati on. [facility] ferrous sulfate 325 mg (65 mg iron) tablet 2020-11 00:00: 00 Yes [id number] 325mg Take 1 tablet by mouth 2 (two) times daily. [facility] docusate calcium 240 mg capsule 2020-11 00:00: 00 Yes [id number] 240mg Take 1 capsule by mouth once daily as needed for Constipati on. [facility] ferrous sulfate 325 mg (65 mg iron) tablet 2020-11 00:00: 00 Yes [id number] 325mg Take 1 tablet by mouth 2 (two) times daily. [facility] docusate calcium 240 mg capsule 2020-11 00:00: 00 Yes [id number] 240mg Take 1 capsule by mouth once daily as needed for Constipati on. [facility] ferrous sulfate 325 mg (65 mg iron) tablet 2020-11 00:00: 00 Yes [id number] 325mg Take 1 tablet by mouth 2 (two) times daily. [facility] docusate calcium 240 mg capsule 2020-11 00:00: 00 Yes [id number] 240mg Take 1 capsule by mouth once daily as needed for Constipati on. [facility] ferrous sulfate 325 mg (65 mg iron) tablet 2020-11 00:00: 00 Yes [id number] 325mg Take 1 tablet by mouth 2 (two) times daily. [facility] docusate calcium 240 mg capsule 2020-11 00:00: 00 10-08 00:00 :00 No [id number] 240mg Take 1 capsule by mouth once daily as needed for Constipati on. [facility] ferrous sulfate 325 mg (65 mg iron) tablet 2020-11 00:00: 00 10-08 00:00 :00 No [id number] 325mg Take 1 tablet by mouth 2 (two) times daily. [facility] docusate calcium 240 mg capsule 2020-11 00:00: 00 10-08 00:00 :00 No [id number] 240mg Take 1 capsule by mouth once daily as needed for Constipati on. [facility] ferrous sulfate 325 mg (65 mg iron) tablet 2020-11 00:00: 00 10-08 00:00 :00 No [id number] 325mg Take 1 tablet by mouth 2 (two) times daily. [facility] docusate calcium 240 mg capsule 2020-11 00:00: 00 10-08 00:00 :00 No [id number] 240mg Take 1 capsule by mouth once daily as needed for Constipati on. [facility] ferrous sulfate 325 mg (65 mg iron) tablet 2020-11 00:00: 00 10-08 00:00 :00 No [id number] 325mg Take 1 tablet by mouth 2 (two) times daily. [facility] docusate calcium 240 mg capsule 2020-11 00:00: 00 10-08 00:00 :00 No [id number] 240mg Take 1 capsule by mouth once daily as needed for Constipati on. [facility] ferrous sulfate 325 mg (65 mg iron) tablet 2020-11 00:00: 00 10-08 00:00 :00 No [id number] 325mg Take 1 tablet by mouth 2 (two) times daily. [facility] docusate calcium 240 mg capsule 2020-11 00:00: 00 10-08 00:00 :00 No [id number] 240mg Take 1 capsule by mouth once daily as needed for Constipati on. [facility] ferrous sulfate 325 mg (65 mg iron) tablet 2020-11 00:00: 00 10-08 00:00 :00 No [id number] 325mg Take 1 tablet by mouth 2 (two) times daily. [facility] docusate calcium 240 mg capsule 2020-11 00:00: 00 10-08 00:00 :00 No [id number] 240mg Take 1 capsule by mouth once daily as needed for Constipati on. [facility] ferrous sulfate 325 mg (65 mg iron) tablet 2020-11 00:00: 00 10-08 00:00 :00 No [id number] 325mg Take 1 tablet by mouth 2 (two) times daily. [facility] QUEtiapine 50 mg tablet 2018-11 00:00: 00 Yes 50mg Take 50 mg by mouth daily. [facility] QUEtiapine 50 mg tablet 2018-11 00:00: 00 Yes 50mg Take 50 mg by mouth daily. [facility] QUEtiapine 50 mg tablet 2018-11 00:00: 00 Yes 50mg Take 50 mg by mouth daily. [facility] QUEtiapine 50 mg tablet 2018-11 00:00: 00 Yes 50mg Take 50 mg by mouth daily. [facility] QUEtiapine 50 mg tablet 2018-11 00:00: 00 Yes 50mg Take 50 mg by mouth daily. [facility] QUEtiapine 50 mg tablet 2018-11 00:00: 00 Yes 50mg Take 50 mg by mouth daily. [facility] QUEtiapine 50 mg tablet 2018-11 00:00: 00 Yes 50mg Take 50 mg by mouth daily. [facility] QUEtiapine 50 mg tablet 2018-11 00:00: 00 Yes 50mg Take 50 mg by mouth daily. [facility] QUEtiapine 50 mg tablet 2018-11 00:00: 00 Yes 50mg Take 50 mg by mouth daily. [facility] QUEtiapine 50 mg tablet 2018-11 00:00: 00 Yes 50mg Take 50 mg by mouth daily. [facility] QUEtiapine 50 mg tablet 2018-11 00:00: 00 Yes 50mg Take 50 mg by mouth daily. [facility] QUEtiapine 50 mg tablet 2018-11 00:00: 00 Yes 50mg Take 50 mg by mouth daily. [facility] QUEtiapine 50 mg tablet 2018-11 00:00: 00 Yes 50mg Take 50 mg by mouth daily. [facility] QUEtiapine 50 mg tablet 2018-11 00:00: 00 Yes 50mg Take 1 tablet by mouth in the morning. [facility] QUEtiapine 50 mg tablet 2018-11 00:00: 00 Yes 50mg Take 1 tablet by mouth in the morning. [facility] QUEtiapine 50 mg tablet 2018-11 00:00: 00 Yes 50mg Take 1 tablet by mouth in the morning. [facility] QUEtiapine 50 mg tablet 2018-11 00:00: 00 Yes 50mg Take 1 tablet by mouth in the morning. [facility] QUEtiapine 50 mg tablet 2018-11 00:00: 00 Yes 50mg Take 1 tablet by mouth in the morning. [facility] QUEtiapine 50 mg tablet 2018-11 00:00: 00 Yes 50mg Take 1 tablet by mouth in the morning. [facility] QUEtiapine 50 mg tablet 2018-11 00:00: 00 Yes 50mg Take 1 tablet by mouth in the morning. [facility] QUEtiapine 50 mg tablet 2018-11 00:00: 00 Yes 50mg Take 1 tablet by mouth in the morning. [facility] QUEtiapine 50 mg tablet 2018-11 00:00: 00 Yes 50mg Take 1 tablet by mouth in the morning. [facility] QUEtiapine 50 mg tablet 2018-11 00:00: 00 Yes 50mg Take 1 tablet by mouth in the morning. [facility] QUEtiapine 50 mg tablet 2018-11 00:00: 00 Yes 50mg Take 1 tablet by mouth in the morning. [facility] QUEtiapine 50 mg tablet 2018-11 00:00: 00 Yes 50mg Take 1 tablet by mouth in the morning. [facility] QUEtiapine 50 mg tablet 2018-11 00:00: 00 Yes 50mg Take 1 tablet by mouth in the morning. [facility] QUEtiapine 50 mg tablet 2018-11 00:00: 00 Yes 50mg Take 1 tablet by mouth in the morning. [facility] QUEtiapine 50 mg tablet 2018-11 00:00: 00 Yes 50mg Take 1 tablet by mouth in the morning. [facility] QUEtiapine 50 mg tablet 2018-11 00:00: 00 Yes 50mg Take 1 tablet by mouth in the morning. [facility] QUEtiapine 50 mg tablet 2018-11 00:00: 00 Yes 50mg Take 1 tablet by mouth in the morning. [facility] QUEtiapine 50 mg tablet 2018-11 00:00: 00 Yes 50mg Take 1 tablet by mouth in the morning. [facility] QUEtiapine 50 mg tablet 2018-11 00:00: 00 Yes 50mg Take 1 tablet by mouth in the morning. [facility] QUEtiapine 50 mg tablet 2018-11 00:00: 00 Yes 50mg Take 1 tablet by mouth in the morning. [facility] QUEtiapine 50 mg tablet 2018-11 00:00: 00 Yes 50mg Take 1 tablet by mouth in the morning. [facility] QUEtiapine 50 mg tablet 2018-11 00:00: 00 Yes 50mg Take 1 tablet by mouth in the morning. [facility] QUEtiapine 50 mg tablet 2018-11 00:00: 00 Yes 50mg Take 1 tablet by mouth in the morning. [facility] Immunizations Ordered Immunization Name Filled Immunization Name Date Status Comments Source Influenza Virus Vaccine Quad IM, Preserv and ABX Free 6 MO-64 YRS 2021-09-06 00:00:00 Completed [facility] Influenza Virus Vaccine Quad IM, Preserv and ABX Free 6 MO-64 YRS 2021-09-06 00:00:00 Completed [facility] Influenza Virus Vaccine Quad IM, Preserv and ABX Free 6 MO-64 YRS 2021-09-06 00:00:00 Completed [facility] Influenza Virus Vaccine Quad IM, Preserv and ABX Free 6 MO-64 YRS 2021-09-06 00:00:00 Completed [facility] Influenza Virus Vaccine Quad IM, Preserv and ABX Free 6 MO-64 YRS 2021-09-06 00:00:00 Completed [facility] Influenza Virus Vaccine Quad IM, Preserv and ABX Free 6 MO-64 YRS 2021-09-06 00:00:00 Completed [facility] Influenza Virus Vaccine Quad IM, Preserv and ABX Free 6 MO-64 YRS 2021-09-06 00:00:00 Completed [facility] Influenza Virus Vaccine Quad IM, Preserv and ABX Free 6 MO-64 YRS 2021-09-06 00:00:00 Completed [facility] Influenza Virus Vaccine Quad IM, Preserv and ABX Free 6 MO-64 YRS 2021-09-06 00:00:00 Completed [facility] Influenza Virus Vaccine Quad IM, Preserv and ABX Free 6 MO-64 YRS 2021-09-06 00:00:00 Completed [facility] Influenza Virus Vaccine Quad IM, Preserv and ABX Free 6 MO-64 YRS 2021-09-06 00:00:00 Completed [facility] Influenza Virus Vaccine Quad IM, Preserv and ABX Free 6 MO-64 YRS 2021-09-06 00:00:00 Completed [facility] Influenza Virus Vaccine Quad IM, Preserv and ABX Free 6 MO-64 YRS 2021-09-06 00:00:00 Completed [facility] Influenza Virus Vaccine Quad IM, Preserv and ABX Free 6 MO-64 YRS 2021-09-06 00:00:00 Completed [facility] Influenza Virus Vaccine Quad IM, Preserv and ABX Free 6 MO-64 YRS 2021-09-06 00:00:00 Completed [facility] Influenza Virus Vaccine Quad IM, Preserv and ABX Free 6 MO-64 YRS 2021-09-06 00:00:00 Completed [facility] Influenza Virus Vaccine Quad IM, Preserv and ABX Free 6 MO-64 YRS 2021-09-06 00:00:00 Completed [facility] TDAP 2021-07-17 00:00:00 Completed [facility] TDAP 2021-07-17 00:00:00 Completed [facility] TDAP 2021-07-17 00:00:00 Completed [facility] TDAP 2021-07-17 00:00:00 Completed [facility] TDAP 2021-07-17 00:00:00 Completed [facility] TDAP 2021-07-17 00:00:00 Completed [facility] TDAP 2021-07-17 00:00:00 Completed [facility] TDAP 2021-07-17 00:00:00 Completed [facility] TDAP 2021-07-17 00:00:00 Completed [facility] TDAP 2021-07-17 00:00:00 Completed [facility] TDAP 2021-07-17 00:00:00 Completed [facility] TDAP 2021-07-17 00:00:00 Completed [facility] TDAP 2021-07-17 00:00:00 Completed [facility] TDAP 2021-07-17 00:00:00 Completed [facility] TDAP 2021-07-17 00:00:00 Completed [facility] TDAP 2021-07-17 00:00:00 Completed [facility] TDAP 2021-07-17 00:00:00 Completed [facility] Rho (d) Immune Globulin 2021-05-29 00:00:00 Completed [facility] Rho (d) Immune Globulin 2021-05-29 00:00:00 Completed [facility] Rho (d) Immune Globulin 2021-05-29 00:00:00 Completed [facility] Rho (d) Immune Globulin 2021-05-29 00:00:00 Completed [facility] Rho (d) Immune Globulin 2021-05-29 00:00:00 Completed [facility] Rho (d) Immune Globulin 2021-05-29 00:00:00 Completed [facility] Rho (d) Immune Globulin 2021-05-29 00:00:00 Completed [facility] Rho (d) Immune Globulin 2021-05-29 00:00:00 Completed [facility] Rho (d) Immune Globulin 2021-05-29 00:00:00 Completed [facility] Rho (d) Immune Globulin 2021-05-29 00:00:00 Completed [facility] Rho (d) Immune Globulin 2021-05-29 00:00:00 Completed [facility] Rho (d) Immune Globulin 2021-05-29 00:00:00 Completed [facility] Rho (d) Immune Globulin 2021-05-29 00:00:00 Completed [facility] Rho (d) Immune Globulin 2021-05-29 00:00:00 Completed [facility] Rho (d) Immune Globulin 2021-05-29 00:00:00 Completed [facility] Rho (d) Immune Globulin 2021-05-29 00:00:00 Completed [facility] Rho (d) Immune Globulin 2021-05-29 00:00:00 Completed [facility] MMR 2020-02-01 00:00:00 Completed [facility] Rho (d) Immune Globulin 2020-02-01 00:00:00 Completed [facility] MMR 2020-02-01 00:00:00 Completed [facility] Rho (d) Immune Globulin 2020-02-01 00:00:00 Completed [facility] MMR 2020-02-01 00:00:00 Completed [facility] Rho (d) Immune Globulin 2020-02-01 00:00:00 Completed [facility] MMR 2020-02-01 00:00:00 Completed [facility] Rho (d) Immune Globulin 2020-02-01 00:00:00 Completed [facility] MMR 2020-02-01 00:00:00 Completed [facility] Rho (d) Immune Globulin 2020-02-01 00:00:00 Completed [facility] MMR 2020-02-01 00:00:00 Completed [facility] Rho (d) Immune Globulin 2020-02-01 00:00:00 Completed [facility] MMR 2020-02-01 00:00:00 Completed [facility] Rho (d) Immune Globulin 2020-02-01 00:00:00 Completed [facility] MMR 2020-02-01 00:00:00 Completed [facility] Rho (d) Immune Globulin 2020-02-01 00:00:00 Completed [facility] MMR 2020-02-01 00:00:00 Completed [facility] Rho (d) Immune Globulin 2020-02-01 00:00:00 Completed [facility] MMR 2020-02-01 00:00:00 Completed [facility] Rho (d) Immune Globulin 2020-02-01 00:00:00 Completed [facility] MMR 2020-02-01 00:00:00 Completed [facility] Rho (d) Immune Globulin 2020-02-01 00:00:00 Completed [facility] MMR 2020-02-01 00:00:00 Completed [facility] Rho (d) Immune Globulin 2020-02-01 00:00:00 Completed [facility] MMR 2020-02-01 00:00:00 Completed [facility] Rho (d) Immune Globulin 2020-02-01 00:00:00 Completed [facility] MMR 2020-02-01 00:00:00 Completed [facility] Rho (d) Immune Globulin 2020-02-01 00:00:00 Completed [facility] MMR 2020-02-01 00:00:00 Completed [facility] Rho (d) Immune Globulin 2020-02-01 00:00:00 Completed [facility] MMR 2020-02-01 00:00:00 Completed [facility] Rho (d) Immune Globulin 2020-02-01 00:00:00 Completed [facility] MMR 2020-02-01 00:00:00 Completed [facility] Rho (d) Immune Globulin 2020-02-01 00:00:00 Completed [facility] TDAP (ADACEL) VACCINE 2019-12-08 00:00:00 Completed [facility] TDAP (ADACEL) VACCINE 2019-12-08 00:00:00 Completed [facility] TDAP (ADACEL) VACCINE 2019-12-08 00:00:00 Completed [facility] TDAP (ADACEL) VACCINE 2019-12-08 00:00:00 Completed [facility] TDAP (ADACEL) VACCINE 2019-12-08 00:00:00 Completed [facility] TDAP (ADACEL) VACCINE 2019-12-08 00:00:00 Completed [facility] TDAP (ADACEL) VACCINE 2019-12-08 00:00:00 Completed [facility] TDAP (ADACEL) VACCINE 2019-12-08 00:00:00 Completed [facility] TDAP (ADACEL) VACCINE 2019-12-08 00:00:00 Completed [facility] TDAP (ADACEL) VACCINE 2019-12-08 00:00:00 Completed [facility] TDAP (ADACEL) VACCINE 2019-12-08 00:00:00 Completed [facility] TDAP (ADACEL) VACCINE 2019-12-08 00:00:00 Completed [facility] TDAP (ADACEL) VACCINE 2019-12-08 00:00:00 Completed [facility] TDAP (ADACEL) VACCINE 2019-12-08 00:00:00 Completed [facility] TDAP (ADACEL) VACCINE 2019-12-08 00:00:00 Completed [facility] TDAP (ADACEL) VACCINE 2019-12-08 00:00:00 Completed [facility] TDAP (ADACEL) VACCINE 2019-12-08 00:00:00 Completed [facility] Influenza Virus Vaccine Quad .5 mL IM 6+ MO 2019-08-18 00:00:00 Completed [facility] Influenza Virus Vaccine 2019-08-18 00:00:00 Completed [facility] Influenza Virus Vaccine Quad .5 mL IM 6+ MO 2019-08-18 00:00:00 Completed [facility] Influenza Virus Vaccine 2019-08-18 00:00:00 Completed [facility] Influenza Virus Vaccine Quad .5 mL IM 6+ MO 2019-08-18 00:00:00 Completed [facility] Influenza Virus Vaccine 2019-08-18 00:00:00 Completed [facility] Influenza Virus Vaccine Quad .5 mL IM 6+ MO 2019-08-18 00:00:00 Completed [facility] Influenza Virus Vaccine 2019-08-18 00:00:00 Completed [facility] Influenza Virus Vaccine Quad .5 mL IM 6+ MO 2019-08-18 00:00:00 Completed [facility] Influenza Virus Vaccine 2019-08-18 00:00:00 Completed [facility] Influenza Virus Vaccine Quad .5 mL IM 6+ MO 2019-08-18 00:00:00 Completed [facility] Influenza Virus Vaccine 2019-08-18 00:00:00 Completed [facility] Influenza Virus Vaccine Quad .5 mL IM 6+ MO 2019-08-18 00:00:00 Completed [facility] Influenza Virus Vaccine 2019-08-18 00:00:00 Completed [facility] Influenza Virus Vaccine Quad .5 mL IM 6+ MO 2019-08-18 00:00:00 Completed [facility] Influenza Virus Vaccine 2019-08-18 00:00:00 Completed [facility] Influenza Virus Vaccine Quad .5 mL IM 6+ MO 2019-08-18 00:00:00 Completed [facility] Influenza Virus Vaccine 2019-08-18 00:00:00 Completed [facility] Influenza Virus Vaccine Quad .5 mL IM 6+ MO 2019-08-18 00:00:00 Completed [facility] Influenza Virus Vaccine 2019-08-18 00:00:00 Completed [facility] Influenza Virus Vaccine Quad .5 mL IM 6+ MO 2019-08-18 00:00:00 Completed [facility] Influenza Virus Vaccine 2019-08-18 00:00:00 Completed [facility] Influenza Virus Vaccine Quad .5 mL IM 6+ MO 2019-08-18 00:00:00 Completed [facility] Influenza Virus Vaccine 2019-08-18 00:00:00 Completed [facility] Influenza Virus Vaccine Quad .5 mL IM 6+ MO 2019-08-18 00:00:00 Completed [facility] Influenza Virus Vaccine 2019-08-18 00:00:00 Completed [facility] Influenza Virus Vaccine Quad .5 mL IM 6+ MO 2019-08-18 00:00:00 Completed [facility] Influenza Virus Vaccine 2019-08-18 00:00:00 Completed [facility] Influenza Virus Vaccine Quad .5 mL IM 6+ MO 2019-08-18 00:00:00 Completed [facility] Influenza Virus Vaccine 2019-08-18 00:00:00 Completed [facility] Influenza Virus Vaccine Quad .5 mL IM 6+ MO 2019-08-18 00:00:00 Completed [facility] Influenza Virus Vaccine 2019-08-18 00:00:00 Completed [facility] Influenza Virus Vaccine Quad .5 mL IM 6+ MO 2019-08-18 00:00:00 Completed [facility] Influenza Virus Vaccine 2019-08-18 00:00:00 Completed [facility] Rho (d) Immune Globulin 2019-07-27 00:00:00 Completed [facility] Rho (d) Immune Globulin 2019-07-27 00:00:00 Completed [facility] Rho (d) Immune Globulin 2019-07-27 00:00:00 Completed [facility] Rho (d) Immune Globulin 2019-07-27 00:00:00 Completed [facility] Rho (d) Immune Globulin 2019-07-27 00:00:00 Completed [facility] Rho (d) Immune Globulin 2019-07-27 00:00:00 Completed [facility] Rho (d) Immune Globulin 2019-07-27 00:00:00 Completed [facility] Rho (d) Immune Globulin 2019-07-27 00:00:00 Completed [facility] Rho (d) Immune Globulin 2019-07-27 00:00:00 Completed [facility] Rho (d) Immune Globulin 2019-07-27 00:00:00 Completed [facility] Rho (d) Immune Globulin 2019-07-27 00:00:00 Completed [facility] Rho (d) Immune Globulin 2019-07-27 00:00:00 Completed [facility] Rho (d) Immune Globulin 2019-07-27 00:00:00 Completed [facility] Rho (d) Immune Globulin 2019-07-27 00:00:00 Completed [facility] Rho (d) Immune Globulin 2019-07-27 00:00:00 Completed [facility] Rho (d) Immune Globulin 2019-07-27 00:00:00 Completed [facility] Rho (d) Immune Globulin 2019-07-27 00:00:00 Completed [facility] Influenza Virus Vaccine Quad IM 3+ YRS 2018-09-10 00:00:00 Completed [facility] Influenza Virus Vaccine Quad IM 3+ YRS 2018-09-10 00:00:00 Completed [facility] Influenza Virus Vaccine Quad IM 3+ YRS 2018-09-10 00:00:00 Completed [facility] Influenza Virus Vaccine Quad IM 3+ YRS 2018-09-10 00:00:00 Completed [facility] Influenza Virus Vaccine Quad IM 3+ YRS 2018-09-10 00:00:00 Completed [facility] Influenza Virus Vaccine Quad IM 3+ YRS 2018-09-10 00:00:00 Completed [facility] Influenza Virus Vaccine Quad IM 3+ YRS 2018-09-10 00:00:00 Completed [facility] Influenza Virus Vaccine Quad IM 3+ YRS 2018-09-10 00:00:00 Completed [facility] Influenza Virus Vaccine Quad IM 3+ YRS 2018-09-10 00:00:00 Completed [facility] Influenza Virus Vaccine Quad IM 3+ YRS 2018-09-10 00:00:00 Completed [facility] Influenza Virus Vaccine Quad IM 3+ YRS 2018-09-10 00:00:00 Completed [facility] Influenza Virus Vaccine Quad IM 3+ YRS 2018-09-10 00:00:00 Completed [facility] Influenza Virus Vaccine Quad IM 3+ YRS 2018-09-10 00:00:00 Completed [facility] Influenza Virus Vaccine Quad IM 3+ YRS 2018-09-10 00:00:00 Completed [facility] Influenza Virus Vaccine Quad IM 3+ YRS 2018-09-10 00:00:00 Completed [facility] Influenza Virus Vaccine Quad IM 3+ YRS 2018-09-10 00:00:00 Completed [facility] Influenza Virus Vaccine Quad IM 3+ YRS 2018-09-10 00:00:00 Completed [facility] Influenza Virus Vaccine Quad IM 3+ YRS 2017-09-12 00:00:00 Completed [facility] Influenza Virus Vaccine Quad IM 3+ YRS 2017-09-12 00:00:00 Completed [facility] Influenza Virus Vaccine Quad IM 3+ YRS 2017-09-12 00:00:00 Completed [facility] Influenza Virus Vaccine Quad IM 3+ YRS 2017-09-12 00:00:00 Completed [facility] Influenza Virus Vaccine Quad IM 3+ YRS 2017-09-12 00:00:00 Completed [facility] Influenza Virus Vaccine Quad IM 3+ YRS 2017-09-12 00:00:00 Completed [facility] Influenza Virus Vaccine Quad IM 3+ YRS 2017-09-12 00:00:00 Completed [facility] Influenza Virus Vaccine Quad IM 3+ YRS 2017-09-12 00:00:00 Completed [facility] Influenza Virus Vaccine Quad IM 3+ YRS 2017-09-12 00:00:00 Completed [facility] Influenza Virus Vaccine Quad IM 3+ YRS 2017-09-12 00:00:00 Completed [facility] Influenza Virus Vaccine Quad IM 3+ YRS 2017-09-12 00:00:00 Completed [facility] Influenza Virus Vaccine Quad IM 3+ YRS 2017-09-12 00:00:00 Completed [facility] Influenza Virus Vaccine Quad IM 3+ YRS 2017-09-12 00:00:00 Completed [facility] Influenza Virus Vaccine Quad IM 3+ YRS 2017-09-12 00:00:00 Completed [facility] Influenza Virus Vaccine Quad IM 3+ YRS 2017-09-12 00:00:00 Completed [facility] Influenza Virus Vaccine Quad IM 3+ YRS 2017-09-12 00:00:00 Completed [facility] Influenza Virus Vaccine Quad IM 3+ YRS 2017-09-12 00:00:00 Completed [facility] Influenza Virus Vaccine Nasal 2015-10-13 00:00:00 Completed [facility] Influenza Virus Vaccine Nasal 2015-10-13 00:00:00 Completed [facility] Influenza Virus Vaccine Nasal 2015-10-13 00:00:00 Completed [facility] Influenza Virus Vaccine Nasal 2015-10-13 00:00:00 Completed [facility] Influenza Virus Vaccine Nasal 2015-10-13 00:00:00 Completed [facility] Influenza Virus Vaccine Nasal 2015-10-13 00:00:00 Completed [facility] Influenza Virus Vaccine Nasal 2015-10-13 00:00:00 Completed [facility] Influenza Virus Vaccine Nasal 2015-10-13 00:00:00 Completed [facility] Influenza Virus Vaccine Nasal 2015-10-13 00:00:00 Completed [facility] Influenza Virus Vaccine Nasal 2015-10-13 00:00:00 Completed [facility] Influenza Virus Vaccine Nasal 2015-10-13 00:00:00 Completed [facility] Influenza Virus Vaccine Nasal 2015-10-13 00:00:00 Completed [facility] Influenza Virus Vaccine Nasal 2015-10-13 00:00:00 Completed [facility] Influenza Virus Vaccine Nasal 2015-10-13 00:00:00 Completed [facility] Influenza Virus Vaccine Nasal 2015-10-13 00:00:00 Completed [facility] Influenza Virus Vaccine Nasal 2015-10-13 00:00:00 Completed [facility] Influenza Virus Vaccine Nasal 2015-10-13 00:00:00 Completed [facility] Influenza Virus Vaccine 2014-09-02 00:00:00 Completed [facility] Influenza Virus Vaccine 2014-09-02 00:00:00 Completed [facility] Influenza Virus Vaccine 2014-09-02 00:00:00 Completed [facility] Influenza Virus Vaccine 2014-09-02 00:00:00 Completed [facility] Influenza Virus Vaccine 2014-09-02 00:00:00 Completed [facility] Influenza Virus Vaccine 2014-09-02 00:00:00 Completed [facility] Influenza Virus Vaccine 2014-09-02 00:00:00 Completed [facility] Influenza Virus Vaccine 2014-09-02 00:00:00 Completed [facility] Influenza Virus Vaccine 2014-09-02 00:00:00 Completed [facility] Influenza Virus Vaccine 2014-09-02 00:00:00 Completed [facility] Influenza Virus Vaccine 2014-09-02 00:00:00 Completed [facility] Influenza Virus Vaccine 2014-09-02 00:00:00 Completed [facility] Influenza Virus Vaccine 2014-09-02 00:00:00 Completed [facility] Influenza Virus Vaccine 2014-09-02 00:00:00 Completed [facility] Influenza Virus Vaccine 2014-09-02 00:00:00 Completed [facility] Influenza Virus Vaccine 2014-09-02 00:00:00 Completed [facility] Influenza Virus Vaccine 2014-09-02 00:00:00 Completed [facility] HPV 2014-01-18 00:00:00 Completed [facility] Meningococcal Vaccine 2014-01-18 00:00:00 Completed [facility] Varicella (varivax)(chicken pox) 2014-01-18 00:00:00 Completed [facility] TDAP 2014-01-18 00:00:00 Completed [facility] Meningococcal Polysaccharide (groups A, C, Y and W-135) conjugate vaccine (MCV4P) 2014-01-18 00:00:00 Completed [facility] HPV 2014-01-18 00:00:00 Completed [facility] Meningococcal Vaccine 2014-01-18 00:00:00 Completed [facility] Varicella (varivax)(chicken pox) 2014-01-18 00:00:00 Completed [facility] TDAP 2014-01-18 00:00:00 Completed [facility] Meningococcal Polysaccharide (groups A, C, Y and W-135) conjugate vaccine (MCV4P) 2014-01-18 00:00:00 Completed [facility] HPV 2014-01-18 00:00:00 Completed [facility] Meningococcal Vaccine 2014-01-18 00:00:00 Completed [facility] Varicella (varivax)(chicken pox) 2014-01-18 00:00:00 Completed [facility] TDAP 2014-01-18 00:00:00 Completed [facility] Meningococcal Polysaccharide (groups A, C, Y and W-135) conjugate vaccine (MCV4P) 2014-01-18 00:00:00 Completed [facility] HPV 2014-01-18 00:00:00 Completed [facility] Meningococcal Vaccine 2014-01-18 00:00:00 Completed [facility] Varicella (varivax)(chicken pox) 2014-01-18 00:00:00 Completed [facility] TDAP 2014-01-18 00:00:00 Completed [facility] Meningococcal Polysaccharide (groups A, C, Y and W-135) conjugate vaccine (MCV4P) 2014-01-18 00:00:00 Completed [facility] HPV 2014-01-18 00:00:00 Completed [facility] Meningococcal Vaccine 2014-01-18 00:00:00 Completed [facility] Varicella (varivax)(chicken pox) 2014-01-18 00:00:00 Completed [facility] TDAP 2014-01-18 00:00:00 Completed [facility] Meningococcal Polysaccharide (groups A, C, Y and W-135) conjugate vaccine (MCV4P) 2014-01-18 00:00:00 Completed [facility] HPV 2014-01-18 00:00:00 Completed [facility] Meningococcal Vaccine 2014-01-18 00:00:00 Completed [facility] Varicella (varivax)(chicken pox) 2014-01-18 00:00:00 Completed [facility] TDAP 2014-01-18 00:00:00 Completed [facility] Meningococcal Polysaccharide (groups A, C, Y and W-135) conjugate vaccine (MCV4P) 2014-01-18 00:00:00 Completed [facility] HPV 2014-01-18 00:00:00 Completed [facility] Meningococcal Vaccine 2014-01-18 00:00:00 Completed [facility] Varicella (varivax)(chicken pox) 2014-01-18 00:00:00 Completed [facility] TDAP 2014-01-18 00:00:00 Completed [facility] Meningococcal Polysaccharide (groups A, C, Y and W-135) conjugate vaccine (MCV4P) 2014-01-18 00:00:00 Completed [facility] HPV 2014-01-18 00:00:00 Completed [facility] Meningococcal Vaccine 2014-01-18 00:00:00 Completed [facility] Varicella (varivax)(chicken pox) 2014-01-18 00:00:00 Completed [facility] TDAP 2014-01-18 00:00:00 Completed [facility] Meningococcal Polysaccharide (groups A, C, Y and W-135) conjugate vaccine (MCV4P) 2014-01-18 00:00:00 Completed [facility] HPV 2014-01-18 00:00:00 Completed [facility] Meningococcal Vaccine 2014-01-18 00:00:00 Completed [facility] Varicella (varivax)(chicken pox) 2014-01-18 00:00:00 Completed [facility] TDAP 2014-01-18 00:00:00 Completed [facility] Meningococcal Polysaccharide (groups A, C, Y and W-135) conjugate vaccine (MCV4P) 2014-01-18 00:00:00 Completed [facility] HPV 2014-01-18 00:00:00 Completed [facility] Meningococcal Vaccine 2014-01-18 00:00:00 Completed [facility] Varicella (varivax)(chicken pox) 2014-01-18 00:00:00 Completed [facility] TDAP 2014-01-18 00:00:00 Completed [facility] Meningococcal Polysaccharide (groups A, C, Y and W-135) conjugate vaccine (MCV4P) 2014-01-18 00:00:00 Completed [facility] HPV 2014-01-18 00:00:00 Completed [facility] Meningococcal Vaccine 2014-01-18 00:00:00 Completed [facility] Varicella (varivax)(chicken pox) 2014-01-18 00:00:00 Completed [facility] TDAP 2014-01-18 00:00:00 Completed [facility] Meningococcal Polysaccharide (groups A, C, Y and W-135) conjugate vaccine (MCV4P) 2014-01-18 00:00:00 Completed [facility] HPV 2014-01-18 00:00:00 Completed [facility] Meningococcal Vaccine 2014-01-18 00:00:00 Completed [facility] Varicella (varivax)(chicken pox) 2014-01-18 00:00:00 Completed [facility] TDAP 2014-01-18 00:00:00 Completed [facility] Meningococcal Polysaccharide (groups A, C, Y and W-135) conjugate vaccine (MCV4P) 2014-01-18 00:00:00 Completed [facility] HPV 2014-01-18 00:00:00 Completed [facility] Meningococcal Vaccine 2014-01-18 00:00:00 Completed [facility] Varicella (varivax)(chicken pox) 2014-01-18 00:00:00 Completed [facility] TDAP 2014-01-18 00:00:00 Completed [facility] Meningococcal Polysaccharide (groups A, C, Y and W-135) conjugate vaccine (MCV4P) 2014-01-18 00:00:00 Completed [facility] HPV 2014-01-18 00:00:00 Completed [facility] Meningococcal Vaccine 2014-01-18 00:00:00 Completed [facility] Varicella (varivax)(chicken pox) 2014-01-18 00:00:00 Completed [facility] TDAP 2014-01-18 00:00:00 Completed [facility] Meningococcal Polysaccharide (groups A, C, Y and W-135) conjugate vaccine (MCV4P) 2014-01-18 00:00:00 Completed [facility] HPV 2014-01-18 00:00:00 Completed [facility] Meningococcal Vaccine 2014-01-18 00:00:00 Completed [facility] Varicella (varivax)(chicken pox) 2014-01-18 00:00:00 Completed [facility] TDAP 2014-01-18 00:00:00 Completed [facility] Meningococcal Polysaccharide (groups A, C, Y and W-135) conjugate vaccine (MCV4P) 2014-01-18 00:00:00 Completed [facility] HPV 2014-01-18 00:00:00 Completed [facility] Meningococcal Vaccine 2014-01-18 00:00:00 Completed [facility] Varicella (varivax)(chicken pox) 2014-01-18 00:00:00 Completed [facility] TDAP 2014-01-18 00:00:00 Completed [facility] Meningococcal Polysaccharide (groups A, C, Y and W-135) conjugate vaccine (MCV4P) 2014-01-18 00:00:00 Completed [facility] HPV 2014-01-18 00:00:00 Completed [facility] Meningococcal Vaccine 2014-01-18 00:00:00 Completed [facility] Varicella (varivax)(chicken pox) 2014-01-18 00:00:00 Completed [facility] TDAP 2014-01-18 00:00:00 Completed [facility] Meningococcal Polysaccharide (groups A, C, Y and W-135) conjugate vaccine (MCV4P) 2014-01-18 00:00:00 Completed [facility] Influenza Virus Vaccine 2013-09-23 00:00:00 Completed [facility] Influenza Virus Vaccine 2013-09-23 00:00:00 Completed [facility] Influenza Virus Vaccine 2013-09-23 00:00:00 Completed [facility] Influenza Virus Vaccine 2013-09-23 00:00:00 Completed [facility] Influenza Virus Vaccine 2013-09-23 00:00:00 Completed [facility] Influenza Virus Vaccine 2013-09-23 00:00:00 Completed [facility] Influenza Virus Vaccine 2013-09-23 00:00:00 Completed [facility] Influenza Virus Vaccine 2013-09-23 00:00:00 Completed [facility] Influenza Virus Vaccine 2013-09-23 00:00:00 Completed [facility] Influenza Virus Vaccine 2013-09-23 00:00:00 Completed [facility] Influenza Virus Vaccine 2013-09-23 00:00:00 Completed [facility] Influenza Virus Vaccine 2013-09-23 00:00:00 Completed [facility] Influenza Virus Vaccine 2013-09-23 00:00:00 Completed [facility] Influenza Virus Vaccine 2013-09-23 00:00:00 Completed [facility] Influenza Virus Vaccine 2013-09-23 00:00:00 Completed [facility] Influenza Virus Vaccine 2013-09-23 00:00:00 Completed [facility] Influenza Virus Vaccine 2013-09-23 00:00:00 Completed [facility] Influenza Virus Vaccine 2012-11-24 00:00:00 Completed [facility] Influenza Virus Vaccine 2012-11-24 00:00:00 Completed [facility] Influenza Virus Vaccine 2012-11-24 00:00:00 Completed [facility] Influenza Virus Vaccine 2012-11-24 00:00:00 Completed [facility] Influenza Virus Vaccine 2012-11-24 00:00:00 Completed [facility] Influenza Virus Vaccine 2012-11-24 00:00:00 Completed [facility] Influenza Virus Vaccine 2012-11-24 00:00:00 Completed [facility] Influenza Virus Vaccine 2012-11-24 00:00:00 Completed [facility] Influenza Virus Vaccine 2012-11-24 00:00:00 Completed [facility] Influenza Virus Vaccine 2012-11-24 00:00:00 Completed [facility] Influenza Virus Vaccine 2012-11-24 00:00:00 Completed [facility] Influenza Virus Vaccine 2012-11-24 00:00:00 Completed [facility] Influenza Virus Vaccine 2012-11-24 00:00:00 Completed [facility] Influenza Virus Vaccine 2012-11-24 00:00:00 Completed [facility] Influenza Virus Vaccine 2012-11-24 00:00:00 Completed [facility] Influenza Virus Vaccine 2012-11-24 00:00:00 Completed [facility] Influenza Virus Vaccine 2012-11-24 00:00:00 Completed [facility] Influenza Virus Vaccine Nasal 2011-08-23 00:00:00 Completed [facility] Influenza Virus Vaccine Nasal 2011-08-23 00:00:00 Completed [facility] Influenza Virus Vaccine Nasal 2011-08-23 00:00:00 Completed [facility] Influenza Virus Vaccine Nasal 2011-08-23 00:00:00 Completed [facility] Influenza Virus Vaccine Nasal 2011-08-23 00:00:00 Completed [facility] Influenza Virus Vaccine Nasal 2011-08-23 00:00:00 Completed [facility] Influenza Virus Vaccine Nasal 2011-08-23 00:00:00 Completed [facility] Influenza Virus Vaccine Nasal 2011-08-23 00:00:00 Completed [facility] Influenza Virus Vaccine Nasal 2011-08-23 00:00:00 Completed [facility] Influenza Virus Vaccine Nasal 2011-08-23 00:00:00 Completed [facility] Influenza Virus Vaccine Nasal 2011-08-23 00:00:00 Completed [facility] Influenza Virus Vaccine Nasal 2011-08-23 00:00:00 Completed [facility] Influenza Virus Vaccine Nasal 2011-08-23 00:00:00 Completed [facility] Influenza Virus Vaccine Nasal 2011-08-23 00:00:00 Completed [facility] Influenza Virus Vaccine Nasal 2011-08-23 00:00:00 Completed [facility] Influenza Virus Vaccine Nasal 2011-08-23 00:00:00 Completed [facility] Influenza Virus Vaccine Nasal 2011-08-23 00:00:00 Completed [facility] HPV 2011-07-04 00:00:00 Completed [facility] HPV 2011-07-04 00:00:00 Completed [facility] HPV 2011-07-04 00:00:00 Completed [facility] HPV 2011-07-04 00:00:00 Completed [facility] HPV 2011-07-04 00:00:00 Completed [facility] HPV 2011-07-04 00:00:00 Completed [facility] HPV 2011-07-04 00:00:00 Completed [facility] HPV 2011-07-04 00:00:00 Completed [facility] HPV 2011-07-04 00:00:00 Completed [facility] HPV 2011-07-04 00:00:00 Completed [facility] HPV 2011-07-04 00:00:00 Completed [facility] HPV 2011-07-04 00:00:00 Completed [facility] HPV 2011-07-04 00:00:00 Completed [facility] HPV 2011-07-04 00:00:00 Completed [facility] HPV 2011-07-04 00:00:00 Completed [facility] HPV 2011-07-04 00:00:00 Completed [facility] HPV 2011-07-04 00:00:00 Completed [facility] Influenza Virus Vaccine 2010-09-06 00:00:00 Completed [facility] Influenza Virus Vaccine 2010-09-06 00:00:00 Completed [facility] Influenza Virus Vaccine 2010-09-06 00:00:00 Completed [facility] Influenza Virus Vaccine 2010-09-06 00:00:00 Completed [facility] Influenza Virus Vaccine 2010-09-06 00:00:00 Completed [facility] Influenza Virus Vaccine 2010-09-06 00:00:00 Completed [facility] Influenza Virus Vaccine 2010-09-06 00:00:00 Completed [facility] Influenza Virus Vaccine 2010-09-06 00:00:00 Completed [facility] Influenza Virus Vaccine 2010-09-06 00:00:00 Completed [facility] Influenza Virus Vaccine 2010-09-06 00:00:00 Completed [facility] Influenza Virus Vaccine 2010-09-06 00:00:00 Completed [facility] Influenza Virus Vaccine 2010-09-06 00:00:00 Completed [facility] Influenza Virus Vaccine 2010-09-06 00:00:00 Completed [facility] Influenza Virus Vaccine 2010-09-06 00:00:00 Completed [facility] Influenza Virus Vaccine 2010-09-06 00:00:00 Completed [facility] Influenza Virus Vaccine 2010-09-06 00:00:00 Completed [facility] Influenza Virus Vaccine 2010-09-06 00:00:00 Completed [facility] HEPATITIS A 2006-12-16 00:00:00 Completed [facility] HEPATITIS A 2006-12-16 00:00:00 Completed [facility] HEPATITIS A 2006-12-16 00:00:00 Completed [facility] HEPATITIS A 2006-12-16 00:00:00 Completed [facility] HEPATITIS A 2006-12-16 00:00:00 Completed [facility] HEPATITIS A 2006-12-16 00:00:00 Completed [facility] HEPATITIS A 2006-12-16 00:00:00 Completed [facility] HEPATITIS A 2006-12-16 00:00:00 Completed [facility] HEPATITIS A 2006-12-16 00:00:00 Completed [facility] HEPATITIS A 2006-12-16 00:00:00 Completed [facility] HEPATITIS A 2006-12-16 00:00:00 Completed [facility] HEPATITIS A 2006-12-16 00:00:00 Completed [facility] HEPATITIS A 2006-12-16 00:00:00 Completed [facility] HEPATITIS A 2006-12-16 00:00:00 Completed [facility] HEPATITIS A 2006-12-16 00:00:00 Completed [facility] HEPATITIS A 2006-12-16 00:00:00 Completed [facility] HEPATITIS A 2006-12-16 00:00:00 Completed [facility] HEPATITIS A 2005-10-11 00:00:00 Completed [facility] HEPATITIS A 2005-10-11 00:00:00 Completed [facility] HEPATITIS A 2005-10-11 00:00:00 Completed [facility] HEPATITIS A 2005-10-11 00:00:00 Completed [facility] HEPATITIS A 2005-10-11 00:00:00 Completed [facility] HEPATITIS A 2005-10-11 00:00:00 Completed [facility] HEPATITIS A 2005-10-11 00:00:00 Completed [facility] HEPATITIS A 2005-10-11 00:00:00 Completed [facility] HEPATITIS A 2005-10-11 00:00:00 Completed [facility] HEPATITIS A 2005-10-11 00:00:00 Completed [facility] HEPATITIS A 2005-10-11 00:00:00 Completed [facility] HEPATITIS A 2005-10-11 00:00:00 Completed [facility] HEPATITIS A 2005-10-11 00:00:00 Completed [facility] HEPATITIS A 2005-10-11 00:00:00 Completed [facility] HEPATITIS A 2005-10-11 00:00:00 Completed [facility] HEPATITIS A 2005-10-11 00:00:00 Completed [facility] HEPATITIS A 2005-10-11 00:00:00 Completed [facility] Influenza Virus Vaccine 2003-09-06 00:00:00 Completed [facility] Influenza Virus Vaccine 2003-09-06 00:00:00 Completed [facility] Influenza Virus Vaccine 2003-09-06 00:00:00 Completed [facility] Influenza Virus Vaccine 2003-09-06 00:00:00 Completed [facility] Influenza Virus Vaccine 2003-09-06 00:00:00 Completed [facility] Influenza Virus Vaccine 2003-09-06 00:00:00 Completed [facility] Influenza Virus Vaccine 2003-09-06 00:00:00 Completed [facility] Influenza Virus Vaccine 2003-09-06 00:00:00 Completed [facility] Influenza Virus Vaccine 2003-09-06 00:00:00 Completed [facility] Influenza Virus Vaccine 2003-09-06 00:00:00 Completed [facility] Influenza Virus Vaccine 2003-09-06 00:00:00 Completed [facility] Influenza Virus Vaccine 2003-09-06 00:00:00 Completed [facility] Influenza Virus Vaccine 2003-09-06 00:00:00 Completed [facility] Influenza Virus Vaccine 2003-09-06 00:00:00 Completed [facility] Influenza Virus Vaccine 2003-09-06 00:00:00 Completed [facility] Influenza Virus Vaccine 2003-09-06 00:00:00 Completed [facility] Influenza Virus Vaccine 2003-09-06 00:00:00 Completed [facility] DTAP 2003-02-08 00:00:00 Completed [facility] HIB 4 Dose Schedule 2003-02-08 00:00:00 Completed [facility] TDAP 2003-02-08 00:00:00 Completed [facility] Heamophilus Influenza B 2003-02-08 00:00:00 Completed [facility] DTAP 2003-02-08 00:00:00 Completed [facility] HIB 4 Dose Schedule 2003-02-08 00:00:00 Completed [facility] TDAP 2003-02-08 00:00:00 Completed [facility] Heamophilus Influenza B 2003-02-08 00:00:00 Completed [facility] DTAP 2003-02-08 00:00:00 Completed [facility] HIB 4 Dose Schedule 2003-02-08 00:00:00 Completed [facility] TDAP 2003-02-08 00:00:00 Completed [facility] Heamophilus Influenza B 2003-02-08 00:00:00 Completed [facility] DTAP 2003-02-08 00:00:00 Completed [facility] HIB 4 Dose Schedule 2003-02-08 00:00:00 Completed [facility] TDAP 2003-02-08 00:00:00 Completed [facility] Heamophilus Influenza B 2003-02-08 00:00:00 Completed [facility] DTAP 2003-02-08 00:00:00 Completed [facility] HIB 4 Dose Schedule 2003-02-08 00:00:00 Completed [facility] TDAP 2003-02-08 00:00:00 Completed [facility] Heamophilus Influenza B 2003-02-08 00:00:00 Completed [facility] DTAP 2003-02-08 00:00:00 Completed [facility] HIB 4 Dose Schedule 2003-02-08 00:00:00 Completed [facility] TDAP 2003-02-08 00:00:00 Completed [facility] Heamophilus Influenza B 2003-02-08 00:00:00 Completed [facility] DTAP 2003-02-08 00:00:00 Completed [facility] HIB 4 Dose Schedule 2003-02-08 00:00:00 Completed [facility] TDAP 2003-02-08 00:00:00 Completed [facility] Heamophilus Influenza B 2003-02-08 00:00:00 Completed [facility] DTAP 2003-02-08 00:00:00 Completed [facility] HIB 4 Dose Schedule 2003-02-08 00:00:00 Completed [facility] TDAP 2003-02-08 00:00:00 Completed [facility] Heamophilus Influenza B 2003-02-08 00:00:00 Completed [facility] DTAP 2003-02-08 00:00:00 Completed [facility] HIB 4 Dose Schedule 2003-02-08 00:00:00 Completed [facility] TDAP 2003-02-08 00:00:00 Completed [facility] Heamophilus Influenza B 2003-02-08 00:00:00 Completed [facility] DTAP 2003-02-08 00:00:00 Completed [facility] HIB 4 Dose Schedule 2003-02-08 00:00:00 Completed [facility] TDAP 2003-02-08 00:00:00 Completed [facility] Heamophilus Influenza B 2003-02-08 00:00:00 Completed [facility] DTAP 2003-02-08 00:00:00 Completed [facility] HIB 4 Dose Schedule 2003-02-08 00:00:00 Completed [facility] TDAP 2003-02-08 00:00:00 Completed [facility] Heamophilus Influenza B 2003-02-08 00:00:00 Completed [facility] DTAP 2003-02-08 00:00:00 Completed [facility] HIB 4 Dose Schedule 2003-02-08 00:00:00 Completed [facility] TDAP 2003-02-08 00:00:00 Completed [facility] Heamophilus Influenza B 2003-02-08 00:00:00 Completed [facility] DTAP 2003-02-08 00:00:00 Completed [facility] HIB 4 Dose Schedule 2003-02-08 00:00:00 Completed [facility] TDAP 2003-02-08 00:00:00 Completed [facility] Heamophilus Influenza B 2003-02-08 00:00:00 Completed [facility] DTAP 2003-02-08 00:00:00 Completed [facility] HIB 4 Dose Schedule 2003-02-08 00:00:00 Completed [facility] TDAP 2003-02-08 00:00:00 Completed [facility] Heamophilus Influenza B 2003-02-08 00:00:00 Completed [facility] DTAP 2003-02-08 00:00:00 Completed [facility] HIB 4 Dose Schedule 2003-02-08 00:00:00 Completed [facility] TDAP 2003-02-08 00:00:00 Completed [facility] Heamophilus Influenza B 2003-02-08 00:00:00 Completed [facility] DTAP 2003-02-08 00:00:00 Completed [facility] HIB 4 Dose Schedule 2003-02-08 00:00:00 Completed [facility] TDAP 2003-02-08 00:00:00 Completed [facility] Heamophilus Influenza B 2003-02-08 00:00:00 Completed [facility] DTAP 2003-02-08 00:00:00 Completed [facility] HIB 4 Dose Schedule 2003-02-08 00:00:00 Completed [facility] TDAP 2003-02-08 00:00:00 Completed [facility] Heamophilus Influenza B 2003-02-08 00:00:00 Completed [facility] Varicella (varivax)(chicken pox) 2002-11-23 00:00:00 Completed [facility] MMR 2002-11-23 00:00:00 Completed [facility] IPV 2002-11-23 00:00:00 Completed [facility] Varicella (varivax)(chicken pox) 2002-11-23 00:00:00 Completed [facility] MMR 2002-11-23 00:00:00 Completed [facility] IPV 2002-11-23 00:00:00 Completed [facility] Varicella (varivax)(chicken pox) 2002-11-23 00:00:00 Completed [facility] MMR 2002-11-23 00:00:00 Completed [facility] IPV 2002-11-23 00:00:00 Completed [facility] Varicella (varivax)(chicken pox) 2002-11-23 00:00:00 Completed [facility] MMR 2002-11-23 00:00:00 Completed [facility] IPV 2002-11-23 00:00:00 Completed [facility] Varicella (varivax)(chicken pox) 2002-11-23 00:00:00 Completed [facility] MMR 2002-11-23 00:00:00 Completed [facility] IPV 2002-11-23 00:00:00 Completed [facility] Varicella (varivax)(chicken pox) 2002-11-23 00:00:00 Completed [facility] MMR 2002-11-23 00:00:00 Completed [facility] IPV 2002-11-23 00:00:00 Completed [facility] Varicella (varivax)(chicken pox) 2002-11-23 00:00:00 Completed [facility] MMR 2002-11-23 00:00:00 Completed [facility] IPV 2002-11-23 00:00:00 Completed [facility] Varicella (varivax)(chicken pox) 2002-11-23 00:00:00 Completed [facility] MMR 2002-11-23 00:00:00 Completed [facility] IPV 2002-11-23 00:00:00 Completed [facility] Varicella (varivax)(chicken pox) 2002-11-23 00:00:00 Completed [facility] MMR 2002-11-23 00:00:00 Completed [facility] IPV 2002-11-23 00:00:00 Completed [facility] Varicella (varivax)(chicken pox) 2002-11-23 00:00:00 Completed [facility] MMR 2002-11-23 00:00:00 Completed [facility] IPV 2002-11-23 00:00:00 Completed [facility] Varicella (varivax)(chicken pox) 2002-11-23 00:00:00 Completed [facility] MMR 2002-11-23 00:00:00 Completed [facility] IPV 2002-11-23 00:00:00 Completed [facility] Varicella (varivax)(chicken pox) 2002-11-23 00:00:00 Completed [facility] MMR 2002-11-23 00:00:00 Completed [facility] IPV 2002-11-23 00:00:00 Completed [facility] Varicella (varivax)(chicken pox) 2002-11-23 00:00:00 Completed [facility] MMR 2002-11-23 00:00:00 Completed [facility] IPV 2002-11-23 00:00:00 Completed [facility] Varicella (varivax)(chicken pox) 2002-11-23 00:00:00 Completed [facility] MMR 2002-11-23 00:00:00 Completed [facility] IPV 2002-11-23 00:00:00 Completed [facility] Varicella (varivax)(chicken pox) 2002-11-23 00:00:00 Completed [facility] MMR 2002-11-23 00:00:00 Completed [facility] IPV 2002-11-23 00:00:00 Completed [facility] Varicella (varivax)(chicken pox) 2002-11-23 00:00:00 Completed [facility] MMR 2002-11-23 00:00:00 Completed [facility] IPV 2002-11-23 00:00:00 Completed [facility] Varicella (varivax)(chicken pox) 2002-11-23 00:00:00 Completed [facility] MMR 2002-11-23 00:00:00 Completed [facility] IPV 2002-11-23 00:00:00 Completed [facility] DTAP 2002-08-03 00:00:00 Completed [facility] HIB 4 Dose Schedule 2002-08-03 00:00:00 Completed [facility] Hep B, Adol or Pedi Dosage 2002-08-03 00:00:00 Completed [facility] TDAP 2002-08-03 00:00:00 Completed [facility] Heamophilus Influenza B 2002-08-03 00:00:00 Completed [facility] DTAP 2002-08-03 00:00:00 Completed [facility] HIB 4 Dose Schedule 2002-08-03 00:00:00 Completed [facility] Hep B, Adol or Pedi Dosage 2002-08-03 00:00:00 Completed [facility] TDAP 2002-08-03 00:00:00 Completed [facility] Heamophilus Influenza B 2002-08-03 00:00:00 Completed [facility] DTAP 2002-08-03 00:00:00 Completed [facility] HIB 4 Dose Schedule 2002-08-03 00:00:00 Completed [facility] Hep B, Adol or Pedi Dosage 2002-08-03 00:00:00 Completed [facility] TDAP 2002-08-03 00:00:00 Completed [facility] Heamophilus Influenza B 2002-08-03 00:00:00 Completed [facility] DTAP 2002-08-03 00:00:00 Completed [facility] HIB 4 Dose Schedule 2002-08-03 00:00:00 Completed [facility] Hep B, Adol or Pedi Dosage 2002-08-03 00:00:00 Completed [facility] TDAP 2002-08-03 00:00:00 Completed [facility] Heamophilus Influenza B 2002-08-03 00:00:00 Completed [facility] DTAP 2002-08-03 00:00:00 Completed [facility] HIB 4 Dose Schedule 2002-08-03 00:00:00 Completed [facility] Hep B, Adol or Pedi Dosage 2002-08-03 00:00:00 Completed [facility] TDAP 2002-08-03 00:00:00 Completed [facility] Heamophilus Influenza B 2002-08-03 00:00:00 Completed [facility] DTAP 2002-08-03 00:00:00 Completed [facility] HIB 4 Dose Schedule 2002-08-03 00:00:00 Completed [facility] Hep B, Adol or Pedi Dosage 2002-08-03 00:00:00 Completed [facility] TDAP 2002-08-03 00:00:00 Completed [facility] Heamophilus Influenza B 2002-08-03 00:00:00 Completed [facility] DTAP 2002-08-03 00:00:00 Completed [facility] HIB 4 Dose Schedule 2002-08-03 00:00:00 Completed [facility] Hep B, Adol or Pedi Dosage 2002-08-03 00:00:00 Completed [facility] TDAP 2002-08-03 00:00:00 Completed [facility] Heamophilus Influenza B 2002-08-03 00:00:00 Completed [facility] DTAP 2002-08-03 00:00:00 Completed [facility] HIB 4 Dose Schedule 2002-08-03 00:00:00 Completed [facility] Hep B, Adol or Pedi Dosage 2002-08-03 00:00:00 Completed [facility] TDAP 2002-08-03 00:00:00 Completed [facility] Heamophilus Influenza B 2002-08-03 00:00:00 Completed [facility] DTAP 2002-08-03 00:00:00 Completed [facility] HIB 4 Dose Schedule 2002-08-03 00:00:00 Completed [facility] Hep B, Adol or Pedi Dosage 2002-08-03 00:00:00 Completed [facility] TDAP 2002-08-03 00:00:00 Completed [facility] Heamophilus Influenza B 2002-08-03 00:00:00 Completed [facility] DTAP 2002-08-03 00:00:00 Completed [facility] HIB 4 Dose Schedule 2002-08-03 00:00:00 Completed [facility] Hep B, Adol or Pedi Dosage 2002-08-03 00:00:00 Completed [facility] TDAP 2002-08-03 00:00:00 Completed [facility] Heamophilus Influenza B 2002-08-03 00:00:00 Completed [facility] DTAP 2002-08-03 00:00:00 Completed [facility] HIB 4 Dose Schedule 2002-08-03 00:00:00 Completed [facility] Hep B, Adol or Pedi Dosage 2002-08-03 00:00:00 Completed [facility] TDAP 2002-08-03 00:00:00 Completed [facility] Heamophilus Influenza B 2002-08-03 00:00:00 Completed [facility] DTAP 2002-08-03 00:00:00 Completed [facility] HIB 4 Dose Schedule 2002-08-03 00:00:00 Completed [facility] Hep B, Adol or Pedi Dosage 2002-08-03 00:00:00 Completed [facility] TDAP 2002-08-03 00:00:00 Completed [facility] Heamophilus Influenza B 2002-08-03 00:00:00 Completed [facility] DTAP 2002-08-03 00:00:00 Completed [facility] HIB 4 Dose Schedule 2002-08-03 00:00:00 Completed [facility] Hep B, Adol or Pedi Dosage 2002-08-03 00:00:00 Completed [facility] TDAP 2002-08-03 00:00:00 Completed [facility] Heamophilus Influenza B 2002-08-03 00:00:00 Completed [facility] DTAP 2002-08-03 00:00:00 Completed [facility] HIB 4 Dose Schedule 2002-08-03 00:00:00 Completed [facility] Hep B, Adol or Pedi Dosage 2002-08-03 00:00:00 Completed [facility] TDAP 2002-08-03 00:00:00 Completed [facility] Heamophilus Influenza B 2002-08-03 00:00:00 Completed [facility] DTAP 2002-08-03 00:00:00 Completed [facility] HIB 4 Dose Schedule 2002-08-03 00:00:00 Completed [facility] Hep B, Adol or Pedi Dosage 2002-08-03 00:00:00 Completed [facility] TDAP 2002-08-03 00:00:00 Completed [facility] Heamophilus Influenza B 2002-08-03 00:00:00 Completed [facility] DTAP 2002-08-03 00:00:00 Completed [facility] HIB 4 Dose Schedule 2002-08-03 00:00:00 Completed [facility] Hep B, Adol or Pedi Dosage 2002-08-03 00:00:00 Completed [facility] TDAP 2002-08-03 00:00:00 Completed [facility] Heamophilus Influenza B 2002-08-03 00:00:00 Completed [facility] DTAP 2002-08-03 00:00:00 Completed [facility] HIB 4 Dose Schedule 2002-08-03 00:00:00 Completed [facility] Hep B, Adol or Pedi Dosage 2002-08-03 00:00:00 Completed [facility] TDAP 2002-08-03 00:00:00 Completed [facility] Heamophilus Influenza B 2002-08-03 00:00:00 Completed [facility] DTAP 2002-03-15 00:00:00 Completed [facility] HIB 4 Dose Schedule 2002-03-15 00:00:00 Completed [facility] TDAP 2002-03-15 00:00:00 Completed [facility] Heamophilus Influenza B 2002-03-15 00:00:00 Completed [facility] IPV 2002-03-15 00:00:00 Completed [facility] DTAP 2002-03-15 00:00:00 Completed [facility] HIB 4 Dose Schedule 2002-03-15 00:00:00 Completed [facility] TDAP 2002-03-15 00:00:00 Completed [facility] Heamophilus Influenza B 2002-03-15 00:00:00 Completed [facility] IPV 2002-03-15 00:00:00 Completed [facility] DTAP 2002-03-15 00:00:00 Completed [facility] HIB 4 Dose Schedule 2002-03-15 00:00:00 Completed [facility] TDAP 2002-03-15 00:00:00 Completed [facility] Heamophilus Influenza B 2002-03-15 00:00:00 Completed [facility] IPV 2002-03-15 00:00:00 Completed [facility] DTAP 2002-03-15 00:00:00 Completed [facility] HIB 4 Dose Schedule 2002-03-15 00:00:00 Completed [facility] TDAP 2002-03-15 00:00:00 Completed [facility] Heamophilus Influenza B 2002-03-15 00:00:00 Completed [facility] IPV 2002-03-15 00:00:00 Completed [facility] DTAP 2002-03-15 00:00:00 Completed [facility] HIB 4 Dose Schedule 2002-03-15 00:00:00 Completed [facility] TDAP 2002-03-15 00:00:00 Completed [facility] Heamophilus Influenza B 2002-03-15 00:00:00 Completed [facility] IPV 2002-03-15 00:00:00 Completed [facility] DTAP 2002-03-15 00:00:00 Completed [facility] HIB 4 Dose Schedule 2002-03-15 00:00:00 Completed [facility] TDAP 2002-03-15 00:00:00 Completed [facility] Heamophilus Influenza B 2002-03-15 00:00:00 Completed [facility] IPV 2002-03-15 00:00:00 Completed [facility] DTAP 2002-03-15 00:00:00 Completed [facility] HIB 4 Dose Schedule 2002-03-15 00:00:00 Completed [facility] TDAP 2002-03-15 00:00:00 Completed [facility] Heamophilus Influenza B 2002-03-15 00:00:00 Completed [facility] IPV 2002-03-15 00:00:00 Completed [facility] DTAP 2002-03-15 00:00:00 Completed [facility] HIB 4 Dose Schedule 2002-03-15 00:00:00 Completed [facility] TDAP 2002-03-15 00:00:00 Completed [facility] Heamophilus Influenza B 2002-03-15 00:00:00 Completed [facility] IPV 2002-03-15 00:00:00 Completed [facility] DTAP 2002-03-15 00:00:00 Completed [facility] HIB 4 Dose Schedule 2002-03-15 00:00:00 Completed [facility] TDAP 2002-03-15 00:00:00 Completed [facility] Heamophilus Influenza B 2002-03-15 00:00:00 Completed [facility] IPV 2002-03-15 00:00:00 Completed [facility] DTAP 2002-03-15 00:00:00 Completed [facility] HIB 4 Dose Schedule 2002-03-15 00:00:00 Completed [facility] TDAP 2002-03-15 00:00:00 Completed [facility] Heamophilus Influenza B 2002-03-15 00:00:00 Completed [facility] IPV 2002-03-15 00:00:00 Completed [facility] DTAP 2002-03-15 00:00:00 Completed [facility] HIB 4 Dose Schedule 2002-03-15 00:00:00 Completed [facility] TDAP 2002-03-15 00:00:00 Completed [facility] Heamophilus Influenza B 2002-03-15 00:00:00 Completed [facility] IPV 2002-03-15 00:00:00 Completed [facility] DTAP 2002-03-15 00:00:00 Completed [facility] HIB 4 Dose Schedule 2002-03-15 00:00:00 Completed [facility] TDAP 2002-03-15 00:00:00 Completed [facility] Heamophilus Influenza B 2002-03-15 00:00:00 Completed [facility] IPV 2002-03-15 00:00:00 Completed [facility] DTAP 2002-03-15 00:00:00 Completed [facility] HIB 4 Dose Schedule 2002-03-15 00:00:00 Completed [facility] TDAP 2002-03-15 00:00:00 Completed [facility] Heamophilus Influenza B 2002-03-15 00:00:00 Completed [facility] IPV 2002-03-15 00:00:00 Completed [facility] DTAP 2002-03-15 00:00:00 Completed [facility] HIB 4 Dose Schedule 2002-03-15 00:00:00 Completed [facility] TDAP 2002-03-15 00:00:00 Completed [facility] Heamophilus Influenza B 2002-03-15 00:00:00 Completed [facility] IPV 2002-03-15 00:00:00 Completed [facility] DTAP 2002-03-15 00:00:00 Completed [facility] HIB 4 Dose Schedule 2002-03-15 00:00:00 Completed [facility] TDAP 2002-03-15 00:00:00 Completed [facility] Heamophilus Influenza B 2002-03-15 00:00:00 Completed [facility] IPV 2002-03-15 00:00:00 Completed [facility] DTAP 2002-03-15 00:00:00 Completed [facility] HIB 4 Dose Schedule 2002-03-15 00:00:00 Completed [facility] TDAP 2002-03-15 00:00:00 Completed [facility] Heamophilus Influenza B 2002-03-15 00:00:00 Completed [facility] IPV 2002-03-15 00:00:00 Completed [facility] DTAP 2002-03-15 00:00:00 Completed [facility] HIB 4 Dose Schedule 2002-03-15 00:00:00 Completed [facility] TDAP 2002-03-15 00:00:00 Completed [facility] Heamophilus Influenza B 2002-03-15 00:00:00 Completed [facility] IPV 2002-03-15 00:00:00 Completed [facility] DTAP 2001 00:00:00 Completed [facility] HIB 4 Dose Schedule 2001 00:00:00 Completed [facility] TDAP 2001 00:00:00 Completed [facility] Heamophilus Influenza B 2001 00:00:00 Completed [facility] IPV 2001 00:00:00 Completed [facility] DTAP 2001 00:00:00 Completed [facility] HIB 4 Dose Schedule 2001 00:00:00 Completed [facility] TDAP 2001 00:00:00 Completed [facility] Heamophilus Influenza B 2001 00:00:00 Completed [facility] IPV 2001 00:00:00 Completed [facility] DTAP 2001 00:00:00 Completed [facility] HIB 4 Dose Schedule 2001 00:00:00 Completed [facility] TDAP 2001 00:00:00 Completed [facility] Heamophilus Influenza B 2001 00:00:00 Completed [facility] IPV 2001 00:00:00 Completed [facility] DTAP 2001 00:00:00 Completed [facility] HIB 4 Dose Schedule 2001 00:00:00 Completed [facility] TDAP 2001 00:00:00 Completed [facility] Heamophilus Influenza B 2001 00:00:00 Completed [facility] IPV 2001 00:00:00 Completed [facility] DTAP 2001 00:00:00 Completed [facility] HIB 4 Dose Schedule 2001 00:00:00 Completed [facility] TDAP 2001 00:00:00 Completed [facility] Heamophilus Influenza B 2001 00:00:00 Completed [facility] IPV 2001 00:00:00 Completed [facility] DTAP 2001 00:00:00 Completed [facility] HIB 4 Dose Schedule 2001 00:00:00 Completed [facility] TDAP 2001 00:00:00 Completed [facility] Heamophilus Influenza B 2001 00:00:00 Completed [facility] IPV 2001 00:00:00 Completed [facility] DTAP 2001 00:00:00 Completed [facility] HIB 4 Dose Schedule 2001 00:00:00 Completed [facility] TDAP 2001 00:00:00 Completed [facility] Heamophilus Influenza B 2001 00:00:00 Completed [facility] IPV 2001 00:00:00 Completed [facility] DTAP 2001 00:00:00 Completed [facility] HIB 4 Dose Schedule 2001 00:00:00 Completed [facility] TDAP 2001 00:00:00 Completed [facility] Heamophilus Influenza B 2001 00:00:00 Completed [facility] IPV 2001 00:00:00 Completed [facility] DTAP 2001 00:00:00 Completed [facility] HIB 4 Dose Schedule 2001 00:00:00 Completed [facility] TDAP 2001 00:00:00 Completed [facility] Heamophilus Influenza B 2001 00:00:00 Completed [facility] IPV 2001 00:00:00 Completed [facility] DTAP 2001 00:00:00 Completed [facility] HIB 4 Dose Schedule 2001 00:00:00 Completed [facility] TDAP 2001 00:00:00 Completed [facility] Heamophilus Influenza B 2001 00:00:00 Completed [facility] IPV 2001 00:00:00 Completed [facility] DTAP 2001 00:00:00 Completed [facility] HIB 4 Dose Schedule 2001 00:00:00 Completed [facility] TDAP 2001 00:00:00 Completed [facility] Heamophilus Influenza B 2001 00:00:00 Completed [facility] IPV 2001 00:00:00 Completed [facility] DTAP 2001 00:00:00 Completed [facility] HIB 4 Dose Schedule 2001 00:00:00 Completed [facility] TDAP 2001 00:00:00 Completed [facility] Heamophilus Influenza B 2001 00:00:00 Completed [facility] IPV 2001 00:00:00 Completed [facility] DTAP 2001 00:00:00 Completed [facility] HIB 4 Dose Schedule 2001 00:00:00 Completed [facility] TDAP 2001 00:00:00 Completed [facility] Heamophilus Influenza B 2001 00:00:00 Completed [facility] IPV 2001 00:00:00 Completed [facility] DTAP 2001 00:00:00 Completed [facility] HIB 4 Dose Schedule 2001 00:00:00 Completed [facility] TDAP 2001 00:00:00 Completed [facility] Heamophilus Influenza B 2001 00:00:00 Completed [facility] IPV 2001 00:00:00 Completed [facility] DTAP 2001 00:00:00 Completed [facility] HIB 4 Dose Schedule 2001 00:00:00 Completed [facility] TDAP 2001 00:00:00 Completed [facility] Heamophilus Influenza B 2001 00:00:00 Completed [facility] IPV 2001 00:00:00 Completed [facility] DTAP 2001 00:00:00 Completed [facility] HIB 4 Dose Schedule 2001 00:00:00 Completed [facility] TDAP 2001 00:00:00 Completed [facility] Heamophilus Influenza B 2001 00:00:00 Completed [facility] IPV 2001 00:00:00 Completed [facility] DTAP 2001 00:00:00 Completed [facility] HIB 4 Dose Schedule 2001 00:00:00 Completed [facility] TDAP 2001 00:00:00 Completed [facility] Heamophilus Influenza B 2001 00:00:00 Completed [facility] IPV 2001 00:00:00 Completed [facility] Hep B, Adol or Pedi Dosage 2001 00:00:00 Completed [facility] Hep B, Adol or Pedi Dosage 2001 00:00:00 Completed [facility] Hep B, Adol or Pedi Dosage 2001 00:00:00 Completed [facility] Hep B, Adol or Pedi Dosage 2001 00:00:00 Completed [facility] Hep B, Adol or Pedi Dosage 2001 00:00:00 Completed [facility] Hep B, Adol or Pedi Dosage 2001 00:00:00 Completed [facility] Hep B, Adol or Pedi Dosage 2001 00:00:00 Completed [facility] Hep B, Adol or Pedi Dosage 2001 00:00:00 Completed [facility] Hep B, Adol or Pedi Dosage 2001 00:00:00 Completed [facility] Hep B, Adol or Pedi Dosage 2001 00:00:00 Completed [facility] Hep B, Adol or Pedi Dosage 2001 00:00:00 Completed [facility] Hep B, Adol or Pedi Dosage 2001 00:00:00 Completed [facility] Hep B, Adol or Pedi Dosage 2001 00:00:00 Completed [facility] Hep B, Adol or Pedi Dosage 2001 00:00:00 Completed [facility] Hep B, Adol or Pedi Dosage 2001 00:00:00 Completed [facility] Hep B, Adol or Pedi Dosage 2001 00:00:00 Completed [facility] Hep B, Adol or Pedi Dosage 2001 00:00:00 Completed [facility] Hep B, Adol or Pedi Dosage 2001 00:00:00 Completed [facility] Hep B, Adol or Pedi Dosage 2001 00:00:00 Completed [facility] Hep B, Adol or Pedi Dosage 2001 00:00:00 Completed [facility] Hep B, Adol or Pedi Dosage 2001 00:00:00 Completed [facility] Hep B, Adol or Pedi Dosage 2001 00:00:00 Completed [facility] Hep B, Adol or Pedi Dosage 2001 00:00:00 Completed [facility] Hep B, Adol or Pedi Dosage 2001 00:00:00 Completed [facility] Hep B, Adol or Pedi Dosage 2001 00:00:00 Completed [facility] Hep B, Adol or Pedi Dosage 2001 00:00:00 Completed [facility] Hep B, Adol or Pedi Dosage 2001 00:00:00 Completed [facility] Hep B, Adol or Pedi Dosage 2001 00:00:00 Completed [facility] Hep B, Adol or Pedi Dosage 2001 00:00:00 Completed [facility] Hep B, Adol or Pedi Dosage 2001 00:00:00 Completed [facility] Hep B, Adol or Pedi Dosage 2001 00:00:00 Completed [facility] Hep B, Adol or Pedi Dosage 2001 00:00:00 Completed [facility] Hep B, Adol or Pedi Dosage 2001 00:00:00 Completed [facility] Hep B, Adol or Pedi Dosage 2001 00:00:00 Completed [facility] Rho (d) Immune Globulin Unknown Completed [facility] Influenza Virus Vaccine Quad .5 mL IM 6+ MO (FLUZONE/FLULAVAL/FL UARIX) Unknown Completed [facility] TDAP (ADACEL) VACCINE Unknown Completed [facility] MMR Unknown Completed [facility] Rho (d) Immune Globulin Unknown Completed [facility] DTAP Unknown Completed [facility] DTAP Unknown Completed [facility] DTAP Unknown Completed [facility] DTAP Unknown Completed [facility] HIB 4 Dose Schedule Unknown Completed [facility] HIB 4 Dose Schedule Unknown Completed [facility] HIB 4 Dose Schedule Unknown Completed [facility] HIB 4 Dose Schedule Unknown Completed [facility] HEPATITIS A Unknown Completed [facility] HEPATITIS A Unknown Completed [facility] Hep B, Adol or Pedi Dosage Unknown Completed [facility] Hep B, Adol or Pedi Dosage Unknown Completed [facility] Hep B, Adol or Pedi Dosage Unknown Completed [facility] HPV Unknown Completed [facility] HPV Unknown Completed [facility] Influenza Virus Vaccine Unknown Completed [facility] Meningococcal Vaccine Unknown Completed [facility] Varicella (varivax)(chicken pox) Unknown Completed [facility] MMR Unknown Completed [facility] Varicella (varivax)(chicken pox) Unknown Completed [facility] Rho (d) Immune Globulin Unknown Completed [facility] TDAP Unknown Completed [facility] Influenza Virus Vaccine Quad IM, Preserv and ABX Free 6 MO-64 YRS (FLUCELVAX) Unknown Completed [facility] Influenza Virus Vaccine Unknown Completed [facility] Influenza Virus Vaccine Unknown Completed [facility] Influenza Virus Vaccine Unknown Completed [facility] Influenza Virus Vaccine Unknown Completed [facility] TDAP Unknown Completed [facility] TDAP Unknown Completed [facility] TDAP Unknown Completed [facility] TDAP Unknown Completed [facility] Heamophilus Influenza B Unknown Completed [facility] Heamophilus Influenza B Unknown Completed [facility] Heamophilus Influenza B Unknown Completed [facility] Heamophilus Influenza B Unknown Completed [facility] Influenza Virus Vaccine Quad IM 3+ YRS Unknown Completed [facility] Influenza Virus Vaccine Quad IM 3+ YRS Unknown Completed [facility] Influenza Virus Vaccine Nasal Unknown Completed [facility] Influenza Virus Vaccine Nasal Unknown Completed [facility] IPV Unknown Completed [facility] IPV Unknown Completed [facility] IPV Unknown Completed [facility] Influenza Virus Vaccine Unknown Completed [facility] TDAP Unknown Completed [facility] Meningococcal Polysaccharide (groups A, C, Y and W-135) conjugate vaccine (MCV4P) Unknown Completed [facility] Rho (d) Immune Globulin Unknown Completed [facility] Influenza Virus Vaccine Quad .5 mL IM 6+ MO (FLUZONE/FLULAVAL/FL UARIX) Unknown Completed [facility] TDAP (ADACEL) VACCINE Unknown Completed [facility] MMR Unknown Completed [facility] Rho (d) Immune Globulin Unknown Completed [facility] DTAP Unknown Completed [facility] DTAP Unknown Completed [facility] DTAP Unknown Completed [facility] DTAP Unknown Completed [facility] HIB 4 Dose Schedule Unknown Completed [facility] HIB 4 Dose Schedule Unknown Completed [facility] HIB 4 Dose Schedule Unknown Completed [facility] HIB 4 Dose Schedule Unknown Completed [facility] HEPATITIS A Unknown Completed [facility] HEPATITIS A Unknown Completed [facility] Hep B, Adol or Pedi Dosage Unknown Completed [facility] Hep B, Adol or Pedi Dosage Unknown Completed [facility] Hep B, Adol or Pedi Dosage Unknown Completed [facility] HPV Unknown Completed [facility] HPV Unknown Completed [facility] Influenza Virus Vaccine Unknown Completed [facility] Meningococcal Vaccine Unknown Completed [facility] Varicella (varivax)(chicken pox) Unknown Completed [facility] MMR Unknown Completed [facility] Varicella (varivax)(chicken pox) Unknown Completed [facility] Rho (d) Immune Globulin Unknown Completed [facility] TDAP Unknown Completed [facility] Influenza Virus Vaccine Quad IM, Preserv and ABX Free 6 MO-64 YRS (FLUCELVAX) Unknown Completed [facility] Influenza Virus Vaccine Unknown Completed [facility] Influenza Virus Vaccine Unknown Completed [facility] Influenza Virus Vaccine Unknown Completed [facility] Influenza Virus Vaccine Unknown Completed [facility] TDAP Unknown Completed [facility] TDAP Unknown Completed [facility] TDAP Unknown Completed [facility] TDAP Unknown Completed [facility] Heamophilus Influenza B Unknown Completed [facility] Heamophilus Influenza B Unknown Completed [facility] Heamophilus Influenza B Unknown Completed [facility] Heamophilus Influenza B Unknown Completed [facility] Influenza Virus Vaccine Quad IM 3+ YRS Unknown Completed [facility] Influenza Virus Vaccine Quad IM 3+ YRS Unknown Completed [facility] Influenza Virus Vaccine Nasal Unknown Completed [facility] Influenza Virus Vaccine Nasal Unknown Completed [facility] IPV Unknown Completed [facility] IPV Unknown Completed [facility] IPV Unknown Completed [facility] Influenza Virus Vaccine Unknown Completed [facility] TDAP Unknown Completed [facility] Meningococcal Polysaccharide (groups A, C, Y and W-135) conjugate vaccine (MCV4P) Unknown Completed [facility] Rho (d) Immune Globulin Unknown Completed [facility] Influenza Virus Vaccine Quad .5 mL IM 6+ MO (FLUZONE/FLULAVAL/FL UARIX) Unknown Completed [facility] TDAP (ADACEL) VACCINE Unknown Completed [facility] MMR Unknown Completed [facility] Rho (d) Immune Globulin Unknown Completed [facility] DTAP Unknown Completed [facility] DTAP Unknown Completed [facility] DTAP Unknown Completed [facility] DTAP Unknown Completed [facility] HIB 4 Dose Schedule Unknown Completed [facility] HIB 4 Dose Schedule Unknown Completed [facility] HIB 4 Dose Schedule Unknown Completed [facility] HIB 4 Dose Schedule Unknown Completed [facility] HEPATITIS A Unknown Completed [facility] HEPATITIS A Unknown Completed [facility] Hep B, Adol or Pedi Dosage Unknown Completed [facility] Hep B, Adol or Pedi Dosage Unknown Completed [facility] Hep B, Adol or Pedi Dosage Unknown Completed [facility] HPV Unknown Completed [facility] HPV Unknown Completed [facility] Influenza Virus Vaccine Unknown Completed [facility] Meningococcal Vaccine Unknown Completed [facility] Varicella (varivax)(chicken pox) Unknown Completed [facility] MMR Unknown Completed [facility] Varicella (varivax)(chicken pox) Unknown Completed [facility] Rho (d) Immune Globulin Unknown Completed [facility] TDAP Unknown Completed [facility] Influenza Virus Vaccine Quad IM, Preserv and ABX Free 6 MO-64 YRS (FLUCELVAX) Unknown Completed [facility] Influenza Virus Vaccine Unknown Completed [facility] Influenza Virus Vaccine Unknown Completed [facility] Influenza Virus Vaccine Unknown Completed [facility] Influenza Virus Vaccine Unknown Completed [facility] TDAP Unknown Completed [facility] TDAP Unknown Completed [facility] TDAP Unknown Completed [facility] TDAP Unknown Completed [facility] Heamophilus Influenza B Unknown Completed [facility] Heamophilus Influenza B Unknown Completed [facility] Heamophilus Influenza B Unknown Completed [facility] Heamophilus Influenza B Unknown Completed [facility] Influenza Virus Vaccine Quad IM 3+ YRS Unknown Completed [facility] Influenza Virus Vaccine Quad IM 3+ YRS Unknown Completed [facility] Influenza Virus Vaccine Nasal Unknown Completed [facility] Influenza Virus Vaccine Nasal Unknown Completed [facility] IPV Unknown Completed [facility] IPV Unknown Completed [facility] IPV Unknown Completed [facility] Influenza Virus Vaccine Unknown Completed [facility] TDAP Unknown Completed [facility] Meningococcal Polysaccharide (groups A, C, Y and W-135) conjugate vaccine (MCV4P) Unknown Completed [facility] Rho (d) Immune Globulin Unknown Completed [facility] Influenza Virus Vaccine Quad .5 mL IM 6+ MO (FLUZONE/FLULAVAL/FL UARIX) Unknown Completed [facility] TDAP (ADACEL) VACCINE Unknown Completed [facility] MMR Unknown Completed [facility] Rho (d) Immune Globulin Unknown Completed [facility] DTAP Unknown Completed [facility] DTAP Unknown Completed [facility] DTAP Unknown Completed [facility] DTAP Unknown [facility] [facility] H[facility] 4 Dose Schedule Unknown Completed [facility] HIB 4 Dose Schedule Unknown Completed [facility] HIB 4 Dose Schedule Unknown Completed [facility] HIB 4 Dose Schedule Unknown Completed [facility] HEPATITIS A Unknown [facility] HEPATITIS [facility] Unknown Completed [facility] Hep B, Adol or Pedi Dosage Unknown Completed [facility] Hep B, Adol or Pedi Dosage Unknown Completed [facility] Hep B, Adol or Pedi Dosage Unknown Completed [facility] HPV Unknown Completed [facility] HPV Unknown Completed [facility] Influenza Virus Vaccine Unknown Completed [facility] Meningococcal Vaccine Unknown Completed [facility] Varicella (varivax)(chicken pox) Unknown Completed [facility] MMR Unknown Completed [facility] Varicella (varivax)(chicken pox) Unknown Completed [facility] Rho (d) Immune Globulin Unknown Completed [facility] TDAP Unknown Completed [facility] Influenza Virus Vaccine Quad IM, Preserv and ABX Free 6 MO-64 YRS (FLUCELVAX) Unknown Completed [facility] Influenza Virus Vaccine Unknown Completed [facility] Influenza Virus Vaccine Unknown Completed [facility] Influenza Virus Vaccine Unknown Completed [facility] Influenza Virus Vaccine Unknown Completed [facility] TDAP Unknown Completed [facility] TDAP Unknown Completed [facility] TDAP Unknown Completed [facility] TDAP Unknown Completed [facility] Heamophilus Influenza B Unknown Completed [facility] Heamophilus Influenza B Unknown Completed [facility] Heamophil[facility] Influenza B Unknown Completed [facility] Influenza B Unknown Completed [facility] Influenza Virus Vaccine Quad IM 3+ YRS Unknown Completed [facility] Influenza Virus Vaccine Quad IM 3+ YRS Unknown Completed [facility] Influenza Virus Vaccine Nasal Unknown Completed [facility] Influenza Virus Vaccine Nasal Unknown Completed [facility] IPV Unknown Completed [facility] IPV Unknown Completed [facility] IPV Unknown Completed [facility] Influenza Virus Vaccine Unknown Completed [facility] TDAP Unknown Completed [facility] Meningococcal Polysaccharide (groups A, C, Y and W-135) conjugate vaccine (MCV4P) Unknown Completed [facility] Rho (d) Immune Globulin Unknown Completed [facility] Influenza Virus Vaccine Quad .5 mL IM 6+ MO (FLUZONE/FLULAVAL/FL UARIX) Unknown Completed [facility] TDAP (ADACEL) VACCINE Unknown Completed [facility] MMR Unknown Completed [facility] Rho (d) Immune Globulin Unknown Completed [facility] DTAP Unknown Completed [facility] DTAP Unknown Completed [facility] DTAP Unknown Completed [facility] DTAP Unknown Completed [facility] HIB 4 Dose Schedule Unknown Completed [facility] HIB 4 Dose Schedule Unknown Completed [facility] HIB 4 Dose Schedule Unknown Completed [facility] HIB 4 Dose Schedule Unknown Completed [facility] HEPATITIS A Unknown Completed [facility] HEPATITIS A Unknown Completed [facility] Hep B, Adol or Pedi Dosage Unknown Completed [facility] Hep B, Adol or Pedi Dosage Unknown Completed [facility] Hep B, Adol or Pedi Dosage Unknown Completed [facility] HPV Unknown Completed [facility] HPV Unknown Completed [facility] Influenza Virus Vaccine Unknown Completed [facility] Meningococcal Vaccine Unknown Completed [facility] Varicella (varivax)(chicken pox) Unknown Completed [facility] MMR Unknown Completed [facility] Varicella (varivax)(chicken pox) Unknown Completed [facility] Rho (d) Immune Globulin Unknown Completed [facility] TDAP Unknown Completed [facility] Influenza Virus Vaccine Quad IM, Preserv and ABX Free 6 MO-64 YRS (FLUCELVAX) Unknown Completed [facility] Influenza Virus Vaccine Unknown Completed [facility] Influenza Virus Vaccine Unknown Completed [facility] Influenza Virus Vaccine Unknown Completed [facility] Influenza Virus Vaccine Unknown Completed [facility] TDAP Unknown Completed [facility] TDAP Unknown Completed [facility] TDAP Unknown Completed [facility] TDAP Unknown Completed [facility] Heamophilus Influenza B Unknown Completed [facility] Heamophil[facility] Influenza B Unknown Completed [facility] Heamophil[facility] Influenza B Unknown Completed [facility] Heamophil[facility] Influenza B Unknown Completed [facility] Influenza Virus Vaccine Quad IM 3+ YRS Unknown Completed [facility] Influenza Virus Vaccine Quad IM 3+ YRS Unknown Completed [facility] Influenza Virus Vaccine Nasal Unknown Completed [facility] Influenza Virus Vaccine Nasal Unknown Completed [facility] IPV Unknown Completed [facility] IPV Unknown Completed [facility] IPV Unknown Completed [facility] Influenza Virus Vaccine Unknown Completed [facility] TDAP Unknown Completed [facility] Meningococcal Polysaccharide (groups A, C, Y and W-135) conjugate vaccine (MCV4P) Unknown Completed [facility] Rho (d) Immune Globulin Unknown Completed [facility] Influenza Virus Vaccine Quad .5 mL IM 6+ MO (FLUZONE/FLULAVAL/FL UARIX) Unknown Completed [facility] TDAP (ADACEL) VACCINE Unknown Completed [facility] MMR Unknown Completed [facility] Rho (d) Immune Globulin Unknown Completed [facility] DTAP Unknown Completed [facility] DTAP Unknown Completed [facility] DTAP Unknown Completed [facility] DTAP Unknown Completed [facility] HIB 4 Dose Schedule Unknown Completed [facility] HIB 4 Dose Schedule Unknown Completed [facility] HIB 4 Dose Schedule Unknown Completed [facility] HIB 4 Dose Schedule Unknown Completed [facility] HEPATITIS A Unknown Completed [facility] HEPATITIS A Unknown Completed [facility] Hep B, Adol or Pedi Dosage Unknown Completed [facility] Hep B, Adol or Pedi Dosage Unknown Completed [facility] Hep B, Adol or Pedi Dosage Unknown Completed [facility] HPV Unknown Completed [facility] HPV Unknown Completed [facility] Influenza Virus Vaccine Unknown Completed [facility] Meningococcal Vaccine Unknown Completed [facility] Varicella (varivax)(chicken pox) Unknown Completed [facility] MMR Unknown Completed [facility] Varicella (varivax)(chicken pox) Unknown Completed [facility] Rho (d) Immune Globulin Unknown Completed [facility] TDAP Unknown Completed [facility] Influenza Virus Vaccine Quad IM, Preserv and ABX Free 6 MO-64 YRS (FLUCELVAX) Unknown Completed [facility] Influenza Virus Vaccine Unknown Completed [facility] Influenza Virus Vaccine Unknown Completed [facility] Influenza Virus Vaccine Unknown Completed [facility] Influenza Virus Vaccine Unknown Completed [facility] TDAP Unknown Completed [facility] TDAP Unknown Completed [facility] TDAP Unknown Completed [facility] TDAP Unknown Completed [facility] Heamophilus Influenza B Unknown Completed [facility] Heamophilus Influenza B Unknown Completed [facility]amophil[facility] Influenza B Unknown Completed [facility] Influenza B Unknown Completed [facility] Influenza Virus Vaccine Quad IM 3+ YRS Unknown Completed [facility] Influenza Virus Vaccine Quad IM 3+ YRS Unknown Completed [facility] Influenza Virus Vaccine Nasal Unknown Completed [facility] Influenza Virus Vaccine Nasal Unknown Completed [facility] IPV Unknown Completed [facility] IPV Unknown Completed [facility] IPV Unknown Completed [facility] Influenza Virus Vaccine Unknown Completed [facility] TDAP Unknown Completed [facility] Meningococcal Polysaccharide (groups A, C, Y and W-135) conjugate vaccine (MCV4P) Unknown Completed [facility] Rho (d) Immune Globulin Unknown Completed [facility] Influenza Virus Vaccine Quad .5 mL IM 6+ MO (FLUZONE/FLULAVAL/FL UARIX) Unknown Completed [facility] TDAP (ADACEL) VACCINE Unknown Completed [facility] MMR Unknown Completed [facility] Rho (d) Immune Globulin Unknown Completed [facility] DTAP Unknown Completed [facility] DTAP Unknown Completed [facility] DTAP Unknown Completed [facility] DTAP Unknown Completed [facility] HIB 4 Dose Schedule Unknown Completed [facility] HIB 4 Dose Schedule Unknown Completed [facility] HIB 4 Dose Schedule Unknown Completed [facility] HIB 4 Dose Schedule Unknown Completed [facility] HEPATITIS A Unknown [facility] HEPATITIS A Unknown [facility] Hep B, Adol or Pedi Dosage Unknown Completed [facility] Hep B, Adol or Pedi Dosage Unknown Completed [facility] Hep B, Adol or Pedi Dosage Unknown Completed [facility] HPV Unknown Completed [facility] HPV Unknown Completed [facility] Influenza Virus Vaccine Unknown Completed [facility] Meningococcal Vaccine Unknown Completed [facility] Varicella (varivax)(chicken pox) Unknown Completed [facility] MMR Unknown Completed [facility] Varicella (varivax)(chicken pox) Unknown Completed [facility] Rho (d) Immune Globulin Unknown Completed [facility] TDAP Unknown Completed [facility] Influenza Virus Vaccine Quad IM, Preserv and ABX Free 6 MO-64 YRS (FLUCELVAX) Unknown Completed [facility] Influenza Virus Vaccine Unknown Completed [facility] Influenza Virus Vaccine Unknown Completed [facility] Influenza Virus Vaccine Unknown Completed [facility] Influenza Virus Vaccine Unknown Completed [facility] TDAP Unknown Completed [facility] TDAP Unknown Completed [facility] TDAP Unknown Completed [facility] TDAP Unknown Completed [facility] Heamophilus Influenza B Unknown Completed [facility] Heamophilus Influenza B Unknown Completed [facility] Heamophil[facility] Influenza B Unknown Completed [facility] Heamophil[facility] Influenza B Unknown Completed [facility] Influenza Virus Vaccine Quad IM 3+ YRS Unknown Completed [facility] Influenza Virus Vaccine Quad IM 3+ YRS Unknown Completed [facility] Influenza Virus Vaccine Nasal Unknown Completed [facility] Influenza Virus Vaccine Nasal Unknown Completed [facility] IPV Unknown Completed [facility] IPV Unknown Completed [facility] IPV Unknown Completed [facility] Influenza Virus Vaccine Unknown Completed [facility] TDAP Unknown Completed [facility] Meningococcal Polysaccharide (groups A, C, Y and W-135) conjugate vaccine (MCV4P) Unknown Completed [facility] Rho (d) Immune Globulin Unknown Completed [facility] Influenza Virus Vaccine Quad .5 mL IM 6+ MO (FLUZONE/FLULAVAL/FL UARIX) Unknown Completed [facility] TDAP (ADACEL) VACCINE Unknown Completed [facility] MMR Unknown Completed [facility] Rho (d) Immune Globulin Unknown Completed [facility] DTAP Unknown Completed [facility] DTAP Unknown Completed [facility] DTAP Unknown Completed [facility] DTAP Unknown Completed [facility] HIB 4 Dose Schedule Unknown Completed [facility] HIB 4 Dose Schedule Unknown Completed [facility] HIB 4 Dose Schedule Unknown Completed [facility] HIB 4 Dose Schedule Unknown Completed [facility] HEPATITIS A Unknown Completed [facility] HEPATITIS A Unknown Completed [facility] Hep B, Adol or Pedi Dosage Unknown Completed [facility] Hep B, Adol or Pedi Dosage Unknown Completed [facility] Hep B, Adol or Pedi Dosage Unknown Completed [facility] HPV Unknown Completed [facility] HPV Unknown Completed [facility] Influenza Virus Vaccine Unknown Completed [facility] Meningococcal Vaccine Unknown Completed [facility] Varicella (varivax)(chicken pox) Unknown Completed [facility] MMR Unknown Completed [facility] Varicella (varivax)(chicken pox) Unknown Completed [facility] Rho (d) Immune Globulin Unknown Completed [facility] TDAP Unknown Completed [facility] Influenza Virus Vaccine Quad IM, Preserv and ABX Free 6 MO-64 YRS (FLUCELVAX) Unknown Completed [facility] Influenza Virus Vaccine Unknown Completed [facility] Influenza Virus Vaccine Unknown Completed [facility] Influenza Virus Vaccine Unknown Completed [facility] Influenza Virus Vaccine Unknown Completed [facility] TDAP Unknown Completed [facility] TDAP Unknown Completed [facility] TDAP Unknown Completed [facility] TDAP Unknown Completed [facility] Heamophilus Influenza B Unknown Completed [facility] Heamophilus Influenza B Unknown Completed [facility]am[facility] Influenza B Unknown Completed [facility] Influenza B Unknown Completed [facility] Influenza Virus Vaccine Quad IM 3+ YRS Unknown Completed [facility] Influenza Virus Vaccine Quad IM 3+ YRS Unknown Completed [facility] Influenza Virus Vaccine Nasal Unknown Completed [facility] Influenza Virus Vaccine Nasal Unknown Completed [facility] IPV Unknown Completed [facility] IPV Unknown Completed [facility] IPV Unknown Completed [facility] Influenza Virus Vaccine Unknown Completed [facility] TDAP Unknown Completed [facility] Meningococcal Polysaccharide (groups A, C, Y and W-135) conjugate vaccine (MCV4P) Unknown Completed [facility] Rho (d) Immune Globulin Unknown Completed [facility] Influenza Virus Vaccine Quad .5 mL IM 6+ MO (FLUZONE/FLULAVAL/FL UARIX) Unknown Completed [facility] TDAP (ADACEL) VACCINE Unknown Completed [facility] MMR Unknown Completed [facility] Rho (d) Immune Globulin Unknown Completed [facility] DTAP Unknown Completed [facility] DTAP Unknown Completed [facility] DTAP Unknown Completed [facility] DTAP Unknown Completed [facility] HIB 4 Dose Schedule Unknown Completed [facility] HIB 4 Dose Schedule Unknown Completed [facility] HIB 4 Dose Schedule Unknown Completed [facility] HIB 4 Dose Schedule Unknown Completed [facility] HEPATITIS A Unknown Completed [facility] HEPATITIS A Unknown Completed [facility] Hep B, Adol or Pedi Dosage Unknown Completed [facility] Hep B, Adol or Pedi Dosage Unknown Completed [facility] Hep B, Adol or Pedi Dosage Unknown Completed [facility] HPV Unknown Completed [facility] HPV Unknown Completed [facility] Influenza Virus Vaccine Unknown Completed [facility] Meningococcal Vaccine Unknown Completed [facility] Varicella (varivax)(chicken pox) Unknown Completed [facility] MMR Unknown Completed [facility] Varicella (varivax)(chicken pox) Unknown Completed [facility] Rho (d) Immune Globulin Unknown Completed [facility] TDAP Unknown Completed [facility] Influenza Virus Vaccine Quad IM, Preserv and ABX Free 6 MO-64 YRS (FLUCELVAX) Unknown Completed [facility] Influenza Virus Vaccine Unknown Completed [facility] Influenza Virus Vaccine Unknown Completed [facility] Influenza Virus Vaccine Unknown Completed [facility] Influenza Virus Vaccine Unknown Completed [facility] TDAP Unknown Completed [facility] TDAP Unknown Completed [facility] TDAP Unknown Completed [facility] TDAP Unknown Completed [facility] Heamophilus Influenza B Unknown Completed [facility]amophil[facility] Influenza B Unknown Completed [facility] Heamophil[facility] Influenza B Unknown Completed [facility]amophil[facility] Influenza B Unknown Completed [facility] Influenza Virus Vaccine Quad IM 3+ YRS Unknown Completed [facility] Influenza Virus Vaccine Quad IM 3+ YRS Unknown Completed [facility] Influenza Virus Vaccine Nasal Unknown Completed [facility] Influenza Virus Vaccine Nasal Unknown Completed [facility] IPV Unknown Completed [facility] IPV Unknown Completed [facility] IPV Unknown Completed [facility] Influenza Virus Vaccine Unknown Completed [facility] TDAP Unknown Completed [facility] Meningococcal Polysaccharide (groups A, C, Y and W-135) conjugate vaccine (MCV4P) Unknown Completed [facility] Rho (d) Immune Globulin Unknown Completed [facility] Influenza Virus Vaccine Quad .5 mL IM 6+ MO (FLUZONE/FLULAVAL/FL UARIX) Unknown Completed [facility] TDAP (ADACEL) VACCINE Unknown Completed [facility] MMR Unknown Completed [facility] Rho (d) Immune Globulin Unknown Completed [facility] DTAP Unknown Completed [facility] DTAP Unknown Completed [facility] DTAP Unknown Completed [facility] DTAP Unknown Completed [facility] HIB 4 Dose Schedule Unknown Completed [facility] HIB 4 Dose Schedule Unknown Completed [facility] HIB 4 Dose Schedule Unknown Completed [facility] HIB 4 Dose Schedule Unknown Completed [facility] HEPATITIS A Unknown Completed [facility] HEPATITIS A Unknown Completed [facility] Hep B, Adol or Pedi Dosage Unknown Completed [facility] Hep B, Adol or Pedi Dosage Unknown Completed [facility] Hep B, Adol or Pedi Dosage Unknown Completed [facility] HPV Unknown Completed [facility] HPV Unknown Completed [facility] Influenza Virus Vaccine Unknown Completed [facility] Meningococcal Vaccine Unknown Completed [facility] Varicella (varivax)(chicken pox) Unknown Completed [facility] MMR Unknown Completed [facility] Varicella (varivax)(chicken pox) Unknown Completed [facility] Rho (d) Immune Globulin Unknown Completed [facility] TDAP Unknown Completed [facility] Influenza Virus Vaccine Quad IM, Preserv and ABX Free 6 MO-64 YRS (FLUCELVAX) Unknown Completed [facility] Influenza Virus Vaccine Unknown Completed [facility] Influenza Virus Vaccine Unknown Completed [facility] Influenza Virus Vaccine Unknown Completed [facility] Influenza Virus Vaccine Unknown Completed [facility] TDAP Unknown Completed [facility] TDAP Unknown Completed [facility] TDAP Unknown [facility]pleted [facility] TDAP Unknown Completed [facility] Heamophilus Influenza B Unknown Completed [facility] [facility] Influenza B Unknown Completed [facility] Influenza B Unknown Completed [facility] Influenza B Unknown Completed [facility] Influenza Virus Vaccine Quad IM 3+ YRS Unknown Completed [facility] Influenza Virus Vaccine Quad IM 3+ YRS Unknown Completed [facility] Influenza Virus Vaccine Nasal Unknown Completed [facility] Influenza Virus Vaccine Nasal Unknown Completed [facility] IPV Unknown Completed [facility] IPV Unknown Completed [facility] IPV Unknown Completed [facility] Influenza Virus Vaccine Unknown Completed [facility] TDAP Unknown Completed [facility] Meningococcal Polysaccharide (groups A, C, Y and W-135) conjugate vaccine (MCV4P) Unknown Completed [facility] Rho (d) Immune Globulin Unknown Completed [facility] Influenza Virus Vaccine Quad .5 mL IM 6+ MO (FLUZONE/FLULAVAL/FL UARIX) Unknown Completed [facility] TDAP (ADACEL) VACCINE Unknown Completed [facility] MMR Unknown Completed [facility] Rho (d) Immune Globulin Unknown Completed [facility] DTAP Unknown Completed [facility] DTAP Unknown Completed [facility] DTAP Unknown Completed [facility] DTAP Unknown Completed [facility] HIB 4 Dose Schedule Unknown Completed [facility] HIB 4 Dose Schedule Unknown Completed [facility] HIB 4 Dose Schedule Unknown Completed [facility] HIB 4 Dose Schedule Unknown Completed [facility] HEPATITIS A Unknown Completed [facility] HEPATITIS A Unknown Completed [facility] [place] [place] [facility] Hep B, Adol or Pedi Dosage Unknown Completed [facility] Hep B, Adol or Pedi Dosage Unknown Completed [facility] Hep B, Adol or Pedi Dosage Unknown Completed [facility] HPV Unknown Completed [facility] HPV Unknown Completed [facility] Influenza Virus Vaccine Unknown Completed [facility] Meningococcal Vaccine Unknown Completed [facility] Varicella (varivax)(chicken pox) Unknown Completed [facility] MMR Unknown Completed [facility] Varicella (varivax)(chicken pox) Unknown Completed [facility] Rho (d) Immune Globulin Unknown Completed [facility] TDAP Unknown Completed [facility] Influenza Virus Vaccine Quad IM, Preserv and ABX Free 6 MO-64 YRS (FLUCELVAX) Unknown Completed [facility] Influenza Virus Vaccine Unknown Completed [facility] Influenza Virus Vaccine Unknown Completed [facility] Influenza Virus Vaccine Unknown Completed [facility] Influenza Virus Vaccine Unknown Completed [facility] TDAP Unknown Completed [facility] TDAP Unknown Completed [facility] TDAP Unknown Completed [facility] TDAP Unknown Completed [facility] Influenza B Unknown [facility]pleted [facility] Influenza B Unknown Completed [facility] Influenza B Unknown Completed [facility] Influenza B Unknown Completed [facility] Influenza Virus Vaccine Quad IM 3+ YRS Unknown Completed [facility] Influenza Virus Vaccine Quad IM 3+ YRS Unknown Completed [facility] Influenza Virus Vaccine Nasal Unknown Completed [facility] Influenza Virus Vaccine Nasal Unknown Completed [facility] IPV Unknown Completed [facility] IPV Unknown Completed [facility] IPV Unknown Completed [facility] Influenza Virus Vaccine Unknown Completed [facility] TDAP Unknown Completed [facility] Meningococcal Polysaccharide (groups A, C, Y and W-135) conjugate vaccine (MCV4P) Unknown Completed [facility] Rho (d) Immune Globulin Unknown Completed [facility] Influenza Virus Vaccine Quad .5 mL IM 6+ MO (FLUZONE/FLULAVAL/FL UARIX) Unknown Completed [facility] TDAP (ADACEL) VACCINE Unknown Completed [facility] MMR Unknown Completed [facility] Rho (d) Immune Globulin Unknown Completed [facility] DTAP Unknown Completed [facility] DTAP Unknown Completed [facility] DTAP Unknown Completed [facility] DTAP Unknown Completed [facility] HIB 4 Dose Schedule Unknown Completed [facility] HIB 4 Dose Schedule Unknown Completed [facility] HIB 4 Dose Schedule Unknown Completed [facility] HIB 4 Dose Schedule Unknown Completed [facility] HEPATITIS A Unknown Completed [facility] HEPATITIS A Unknown Completed [facility] Hep B, Adol or Pedi Dosage Unknown Completed [facility] Hep B, Adol or Pedi Dosage Unknown Completed [facility] Hep B, Adol or Pedi Dosage Unknown Completed [facility] HPV Unknown Completed [facility] HPV Unknown Completed [facility] Influenza Virus Vaccine Unknown Completed [facility] Meningococcal Vaccine Unknown Completed [facility] Varicella (varivax)(chicken pox) Unknown Completed [facility] MMR Unknown Completed [facility] Varicella (varivax)(chicken pox) Unknown Completed [facility] Rho (d) Immune Globulin Unknown Completed [facility] TDAP Unknown Completed [facility] Influenza Virus Vaccine Quad IM, Preserv and ABX Free 6 MO-64 YRS (FLUCELVAX) Unknown Completed [facility] Influenza Virus Vaccine Unknown Completed [facility] Influenza Virus Vaccine Unknown Completed [facility] Influenza Virus Vaccine Unknown Completed [facility] Influenza Virus Vaccine Unknown Completed [facility] TDAP Unknown Completed [facility] TDAP Unknown Completed [facility] TDAP Unknown Completed [facility] TDAP Unknown Completed [facility] Influenza B Unknown [facility]pleted [facility] Influenza B Unknown Completed [facility] Influenza B Unknown Completed [facility] Influenza B Unknown Completed [facility] Influenza Virus Vaccine Quad IM 3+ YRS Unknown Completed [facility] Influenza Virus Vaccine Quad IM 3+ YRS Unknown Completed [facility] Influenza Virus Vaccine Nasal Unknown Completed [facility] Influenza Virus Vaccine Nasal Unknown Completed [facility] IPV Unknown Completed [facility] IPV Unknown Completed [facility] IPV Unknown Completed [facility] Influenza Virus Vaccine Unknown Completed [facility] TDAP Unknown Completed [facility] Meningococcal Polysaccharide (groups A, C, Y and W-135) conjugate vaccine (MCV4P) Unknown Completed [facility] Rho (d) Immune Globulin Unknown Completed [facility] Influenza Virus Vaccine Quad .5 mL IM 6+ MO (FLUZONE/FLULAVAL/FL UARIX) Unknown Completed [facility] TDAP (ADACEL) VACCINE Unknown Completed [facility] MMR Unknown Completed [facility] Rho (d) Immune Globulin Unknown Completed [facility] DTAP Unknown Completed [facility] DTAP Unknown Completed [facility] DTAP Unknown Completed [facility] DTAP Unknown Completed [facility] HIB 4 Dose Schedule Unknown Completed [facility] HIB 4 Dose Schedule Unknown Completed [facility] HIB 4 Dose Schedule Unknown Completed [facility] HIB 4 Dose Schedule Unknown Completed [facility] HEPATITIS A Unknown Completed [facility] HEPATITIS A Unknown Completed [facility] Hep B, Adol or Pedi Dosage Unknown Completed [facility] Hep B, Adol or Pedi Dosage Unknown Completed [facility] Hep B, Adol or Pedi Dosage Unknown Completed [facility] HPV Unknown Completed [facility] HPV Unknown Completed [facility] Influenza Virus Vaccine Unknown Completed [facility] Meningococcal Vaccine Unknown Completed [facility] Varicella (varivax)(chicken pox) Unknown Completed [facility] MMR Unknown Completed [facility] Varicella (varivax)(chicken pox) Unknown Completed [facility] Rho (d) Immune Globulin Unknown Completed [facility] TDAP Unknown Completed [facility] Influenza Virus Vaccine Quad IM, Preserv and ABX Free 6 MO-64 YRS (FLUCELVAX) Unknown Completed [facility] Influenza Virus Vaccine Unknown Completed [facility] Influenza Virus Vaccine Unknown Completed [facility] Influenza Virus Vaccine Unknown Completed [facility] Influenza Virus Vaccine Unknown Completed [facility] TDAP Unknown Completed [facility] TDAP Unknown Completed [facility] TDAP Unknown Completed [facility] TDAP Unknown Completed [facility] Influenza B Unknown Completed [facility] Influenza B Unknown Completed [facility] Influenza B Unknown Completed [facility] Influenza B Unknown Completed [facility] Influenza Virus Vaccine Quad IM 3+ YRS Unknown Completed [facility] Influenza Virus Vaccine Quad IM 3+ YRS Unknown Completed [facility] Influenza Virus Vaccine Nasal Unknown Completed [facility] Influenza Virus Vaccine Nasal Unknown Completed [facility] IPV Unknown Completed [facility] IPV Unknown Completed [facility] IPV Unknown Completed [facility] Influenza Virus Vaccine Unknown Completed [facility] TDAP Unknown Completed [facility] Meningococcal Polysaccharide (groups A, C, Y and W-135) conjugate vaccine (MCV4P) Unknown Completed [facility] Rho (d) Immune Globulin Unknown Completed [facility] Influenza Virus Vaccine Quad .5 mL IM 6+ MO (FLUZONE/FLULAVAL/FL UARIX) Unknown Completed [facility] TDAP (ADACEL) VACCINE Unknown Completed [facility] MMR Unknown Completed [facility] Rho (d) Immune Globulin Unknown Completed [facility] DTAP Unknown Completed [facility] DTAP Unknown Completed [facility] DTAP Unknown Completed [facility] DTAP Unknown Completed [facility] HIB 4 Dose Schedule Unknown Completed [facility] HIB 4 Dose Schedule Unknown Completed [facility] HIB 4 Dose Schedule Unknown Completed [facility] HIB 4 Dose Schedule Unknown Completed [facility] HEPATITIS A Unknown Completed [facility] HEPATITIS A Unknown Completed [facility] Hep B, Adol or Pedi Dosage Unknown Completed [facility] Hep B, Adol or Pedi Dosage Unknown Completed [facility] Hep B, Adol or Pedi Dosage Unknown Completed [facility] HPV Unknown Completed [facility] HPV Unknown Completed [facility] Influenza Virus Vaccine Unknown Completed [facility] Meningococcal Vaccine Unknown Completed [facility] Varicella (varivax)(chicken pox) Unknown Completed [facility] MMR Unknown Completed [facility] Varicella (varivax)(chicken pox) Unknown Completed [facility] Rho (d) Immune Globulin Unknown Completed [facility] TDAP Unknown Completed [facility] Influenza Virus Vaccine Quad IM, Preserv and ABX Free 6 MO-64 YRS (FLUCELVAX) Unknown Completed [facility] Influenza Virus Vaccine Unknown Completed [facility] Influenza Virus Vaccine Unknown Completed [facility] Influenza Virus Vaccine Unknown Completed [facility] Influenza Virus Vaccine Unknown Completed [facility] TDAP Unknown Completed [facility] TDAP Unknown Completed [facility] TDAP Unknown Completed [facility] TDAP Unknown Completed [facility] Influenza B Unknown [facility]pleted [facility] Influenza B Unknown Completed [facility] Influenza B Unknown Completed [facility] Influenza B Unknown Completed [facility] Influenza Virus Vaccine Quad IM 3+ YRS Unknown Completed [facility] Influenza Virus Vaccine Quad IM 3+ YRS Unknown Completed [facility] Influenza Virus Vaccine Nasal Unknown Completed [facility] Influenza Virus Vaccine Nasal Unknown Completed [facility] IPV Unknown Completed [facility] IPV Unknown Completed [facility] IPV Unknown Completed [facility] Influenza Virus Vaccine Unknown Completed [facility] TDAP Unknown Completed [facility] Meningococcal Polysaccharide (groups A, C, Y and W-135) conjugate vaccine (MCV4P) Unknown Completed [facility] Rho (d) Immune Globulin Unknown Completed [facility] Influenza Virus Vaccine Quad .5 mL IM 6+ MO (FLUZONE/FLULAVAL/FL UARIX) Unknown Completed [facility] TDAP (ADACEL) VACCINE Unknown Completed [facility] MMR Unknown Completed [facility] Rho (d) Immune Globulin Unknown Completed [facility] DTAP Unknown Completed [facility] DTAP Unknown Completed [facility] DTAP Unknown Completed [facility] DTAP Unknown Completed [facility] HIB 4 Dose Schedule Unknown Completed [facility] HIB 4 Dose Schedule Unknown Completed [facility] HIB 4 Dose Schedule Unknown Completed [facility] HIB 4 Dose Schedule Unknown Completed [facility] HEPATITIS A Unknown Completed [facility] HEPATITIS A Unknown Completed [facility] Hep B, Adol or Pedi Dosage Unknown Completed [facility] Hep B, Adol or Pedi Dosage Unknown Completed [facility] Hep B, Adol or Pedi Dosage Unknown Completed [facility] HPV Unknown Completed [facility] HPV Unknown Completed [facility] Influenza Virus Vaccine Unknown Completed [facility] Meningococcal Vaccine Unknown Completed [facility] Varicella (varivax)(chicken pox) Unknown Completed [facility] MMR Unknown Completed [facility] Varicella (varivax)(chicken pox) Unknown Completed [facility] Rho (d) Immune Globulin Unknown Completed [facility] TDAP Unknown Completed [facility] Influenza Virus Vaccine Quad IM, Preserv and ABX Free 6 MO-64 YRS (FLUCELVAX) Unknown Completed [facility] Influenza Virus Vaccine Unknown Completed [facility] Influenza Virus Vaccine Unknown Completed [facility] Influenza Virus Vaccine Unknown Completed [facility] Influenza Virus Vaccine Unknown Completed [facility] TDAP Unknown Completed [facility] TDAP Unknown Completed [facility] TDAP Unknown Completed [facility] TDAP Unknown Completed [facility] Influenza B Unknown Completed [facility] Influenza B Unknown Completed [facility] Influenza B Unknown Completed [facility] Influenza B Unknown Completed [facility] Influenza Virus Vaccine Quad IM 3+ YRS Unknown Completed [facility] Influenza Virus Vaccine Quad IM 3+ YRS Unknown Completed [facility] Influenza Virus Vaccine Nasal Unknown Completed [facility] Influenza Virus Vaccine Nasal Unknown Completed [facility] IPV Unknown Completed [facility] IPV Unknown Completed [facility] IPV Unknown Completed [facility] Influenza Virus Vaccine Unknown Completed [facility] TDAP Unknown Completed [facility] Meningococcal Polysaccharide (groups A, C, Y and W-135) conjugate vaccine (MCV4P) Unknown Completed [facility] Influenza Virus Vaccine Quad .5 mL IM 6+ MO (FLUZONE/FLULAVAL/FL UARIX) Unknown Completed [facility] Influenza Virus Vaccine Quad .5 mL IM 6+ MO (FLUZONE/FLULAVAL/FL UARIX) Unknown Completed [facility] Influenza, Trivalent, Adjuvanted Unknown Completed [facility] Influenza, Trivalent, Adjuvanted Unknown Completed [facility] DTaP, Unspecified Formulation Unknown Completed [facility] DTaP, Unspecified Formulation Unknown Completed [facility] DTaP, Unspecified Formulation Unknown Completed [facility] DTaP, Unspecified Formulation Unknown Completed [facility] Influenza Virus Vaccine Quad Nasal (Flumist) Unknown Completed [facility] Flu Trivalent Unknown Completed [facility] Flu Trivalent Unknown Completed [facility] Flu Whole Virus Unknown Completed [facility] Influenza Virus Vaccine Quad IM, Preserv and ABX Free 6 MO-64 YRS (FLUCELVAX) Unknown Completed [facility] Rho (d) Immune Globulin Unknown Completed [facility] Influenza Virus Vaccine Quad .5 mL IM 6+ MO (FLUZONE/FLULAVAL/FL UARIX) Unknown Completed [facility] TDAP (ADACEL) VACCINE Unknown Completed [facility] MMR Unknown Completed [facility] Rho (d) Immune Globulin Unknown Completed [facility] DTAP Unknown Completed [facility] DTAP Unknown Completed [facility] DTAP Unknown Completed [facility] DTAP Unknown Completed [facility] HIB 4 Dose Schedule Unknown Completed [facility] HIB 4 Dose Schedule Unknown Completed [facility] HIB 4 Dose Schedule Unknown Completed [facility] HIB 4 Dose Schedule Unknown Completed [facility] HEPATITIS A Unknown Completed [facility] HEPATITIS A Unknown Completed [facility] Hep B, Adol or Pedi Dosage Unknown Completed [facility] Hep B, Adol or Pedi Dosage Unknown Completed [facility] Hep B, Adol or Pedi Dosage Unknown Completed [facility] HPV Unknown Completed [facility] HPV Unknown Completed [facility] Influenza Virus Vaccine Unknown Completed [facility] Meningococcal Vaccine Unknown Completed [facility] Varicella (varivax)(chicken pox) Unknown Completed [facility] MMR Unknown Completed [facility] Varicella (varivax)(chicken pox) Unknown Completed [facility] Rho (d) Immune Globulin Unknown Completed [facility] TDAP Unknown Completed [facility] Influenza Virus Vaccine Quad IM, Preserv and ABX Free 6 MO-64 YRS (FLUCELVAX) Unknown Completed [facility] Influenza Virus Vaccine Unknown Completed [facility] Influenza Virus Vaccine Unknown Completed [facility] Influenza Virus Vaccine Unknown Completed [facility] Influenza Virus Vaccine Unknown Completed [facility] TDAP Unknown Completed [facility] TDAP Unknown Completed [facility] TDAP Unknown Completed [facility] TDAP Unknown Completed [facility] [employer] Influenza B Unknown Completed [facility] Influenza B Unknown Completed [facility] Influenza B Unknown Completed [facility] Influenza B Unknown Completed [facility] Influenza Virus Vaccine Quad IM 3+ YRS Unknown Completed [facility] Influenza Virus Vaccine Quad IM 3+ YRS Unknown Completed [facility] Influenza Virus Vaccine Nasal Unknown Completed [facility] Influenza Virus Vaccine Nasal Unknown Completed [facility] IPV Unknown Completed [facility] IPV Unknown Completed [facility] IPV Unknown Completed [facility] Influenza Virus Vaccine Unknown Completed [facility] TDAP Unknown Completed [facility] Meningococcal Polysaccharide (groups A, C, Y and W-135) conjugate vaccine (MCV4P) Unknown Completed [facility] Influenza Virus Vaccine Quad .5 mL IM 6+ MO (FLUZONE/FLULAVAL/FL UARIX) Unknown Completed [facility] Influenza Virus Vaccine Quad .5 mL IM 6+ MO (FLUZONE/FLULAVAL/FL UARIX) Unknown Completed [facility] Influenza, Trivalent, Adjuvanted Unknown Completed [facility] Influenza, Trivalent, Adjuvanted Unknown Completed [facility] DTaP, Unspecified Formulation Unknown Completed [facility] DTaP, Unspecified Formulation Unknown Completed [facility] DTaP, Unspecified Formulation Unknown Completed [facility] DTaP, Unspecified Formulation Unknown Completed [facility] Influenza Virus Vaccine Quad Nasal (Flumist) Unknown Completed [facility] Flu Trivalent Unknown Completed [facility] Flu Trivalent Unknown Completed [facility] Flu Whole Virus Unknown Completed [facility] Influenza Virus Vaccine Quad IM, Preserv and ABX Free 6 MO-64 YRS (FLUCELVAX) Unknown Completed [facility] Rho (d) Immune Globulin Unknown Completed [facility] Influenza Virus Vaccine Quad .5 mL IM 6+ MO (FLUZONE/FLULAVAL/FL UARIX) Unknown Completed [facility] TDAP (ADACEL) VACCINE Unknown Completed [facility] MMR Unknown Completed [facility] Rho (d) Immune Globulin Unknown Completed [facility] DTAP Unknown Completed [facility] DTAP Unknown Completed [facility] DTAP Unknown Completed [facility] DTAP Unknown Completed [facility] HIB 4 Dose Schedule Unknown Completed [facility] HIB 4 Dose Schedule Unknown Completed [facility] HIB 4 Dose Schedule Unknown Completed [facility] HIB 4 Dose Schedule Unknown Completed [facility] HEPATITIS A Unknown Completed [facility] HEPATITIS A Unknown Completed [facility] Hep B, Adol or Pedi Dosage Unknown Completed [facility] Hep B, Adol or Pedi Dosage Unknown Completed [facility] Hep B, Adol or Pedi Dosage Unknown Completed [facility] HPV Unknown Completed [facility] HPV Unknown Completed [facility] Influenza Virus Vaccine Unknown Completed [facility] Meningococcal Vaccine Unknown Completed [facility] Varicella (varivax)(chicken pox) Unknown Completed [facility] MMR Unknown Completed [facility] Varicella (varivax)(chicken pox) Unknown Completed [facility] Rho (d) Immune Globulin Unknown Completed [facility] TDAP Unknown Completed [facility] Influenza Virus Vaccine Quad IM, Preserv and ABX Free 6 MO-64 YRS (FLUCELVAX) Unknown Completed [facility] Influenza Virus Vaccine Unknown Completed [facility] Influenza Virus Vaccine Unknown Completed [facility] Influenza Virus Vaccine Unknown Completed [facility] Influenza Virus Vaccine Unknown Completed [facility] TDAP Unknown Completed [facility] TDAP Unknown Completed [facility] TDAP Unknown Completed [facility] TDAP Unknown Completed [facility] Heamophilus Influenza B Unknown Completed [facility] Heamophilus Influenza B Unknown Completed [facility] Heamophilus Influenza B Unknown Completed [facility] Heamophilus Influenza B Unknown Completed [facility] Influenza Virus Vaccine Quad IM 3+ YRS Unknown Completed [facility] Influenza Virus Vaccine Quad IM 3+ YRS Unknown Completed [facility] Influenza Virus Vaccine Nasal Unknown Completed [facility] Influenza Virus Vaccine Nasal Unknown Completed [facility] IPV Unknown Completed [facility] IPV Unknown Completed [facility] IPV Unknown Completed [facility] Influenza Virus Vaccine Unknown Completed [facility] TDAP Unknown Completed [facility] Meningococcal Polysaccharide (groups A, C, Y and W-135) conjugate vaccine (MCV4P) Unknown Completed [facility] Influenza Virus Vaccine Quad .5 mL IM 6+ MO (FLUZONE/FLULAVAL/FL UARIX) Unknown Completed [facility] Influenza Virus Vaccine Quad .5 mL IM 6+ MO (FLUZONE/FLULAVAL/FL UARIX) Unknown Completed [facility] Influenza, Trivalent, Adjuvanted Unknown Completed [facility] Influenza, Trivalent, Adjuvanted Unknown Completed [facility] DTaP, Unspecified Formulation Unknown Completed [facility] DTaP, Unspecified Formulation Unknown Completed [facility] DTaP, Unspecified Formulation Unknown Completed [facility] DTaP, Unspecified Formulation Unknown Completed [facility] Influenza Virus Vaccine Quad Nasal (Flumist) Unknown Completed [facility] Flu Trivalent Unknown Completed [facility] Flu Trivalent Unknown Completed [facility] Flu Whole Virus Unknown Completed [facility] Influenza Virus Vaccine Quad IM, Preserv and ABX Free 6 MO-64 YRS (FLUCELVAX) Unknown Completed [facility] Rho (d) Immune Globulin Unknown Completed [facility] Influenza Virus Vaccine Quad .5 mL IM 6+ MO (FLUZONE/FLULAVAL/FL UARIX) Unknown Completed [facility] TDAP (ADACEL) VACCINE Unknown Completed [facility] MMR Unknown Completed [facility] Rho (d) Immune Globulin Unknown Completed [facility] DTAP Unknown Completed [facility] DTAP Unknown Completed [facility] DTAP Unknown Completed [facility] DTAP Unknown Completed [facility] HIB 4 Dose Schedule Unknown Completed [facility] HIB 4 Dose Schedule Unknown Completed [facility] HIB 4 Dose Schedule Unknown Completed [facility] HIB 4 Dose Schedule Unknown Completed [facility] HEPATITIS A Unknown Completed [facility] HEPATITIS A Unknown Completed [facility] Hep B, Adol or Pedi Dosage Unknown Completed [facility] Hep B, Adol or Pedi Dosage Unknown Completed [facility] Hep B, Adol or Pedi Dosage Unknown Completed [facility] HPV Unknown Completed [facility] HPV Unknown Completed [facility] Influenza Virus Vaccine Unknown Completed [facility] Meningococcal Vaccine Unknown Completed [facility] Varicella (varivax)(chicken pox) Unknown Completed [facility] MMR Unknown Completed [facility] Varicella (varivax)(chicken pox) Unknown Completed [facility] Rho (d) Immune Globulin Unknown Completed [facility] TDAP Unknown Completed [facility] Influenza Virus Vaccine Quad IM, Preserv and ABX Free 6 MO-64 YRS (FLUCELVAX) Unknown Completed [facility] Influenza Virus Vaccine Unknown Completed [facility] Influenza Virus Vaccine Unknown Completed [facility] Influenza Virus Vaccine Unknown Completed [facility] Influenza Virus Vaccine Unknown Completed [facility] TDAP Unknown Completed [facility] TDAP Unknown Completed [facility] TDAP Unknown Completed [facility] TDAP Unknown Completed [facility] Heamophilus Influenza B Unknown Completed [facility] Heamophilus Influenza B Unknown Completed [facility] Heamophilus Influenza B Unknown Completed [facility] Heamophilus Influenza B Unknown Completed [facility] Influenza Virus Vaccine Quad IM 3+ YRS Unknown Completed [facility] Influenza Virus Vaccine Quad IM 3+ YRS Unknown Completed [facility] Influenza Virus Vaccine Nasal Unknown Completed [facility] Influenza Virus Vaccine Nasal Unknown Completed [facility] IPV Unknown Completed [facility] IPV Unknown Completed [facility] IPV Unknown Completed [facility] Influenza Virus Vaccine Unknown Completed [facility] TDAP Unknown Completed [facility] Meningococcal Polysaccharide (groups A, C, Y and W-135) conjugate vaccine (MCV4P) Unknown Completed [facility] Influenza Virus Vaccine Quad .5 mL IM 6+ MO (FLUZONE/FLULAVAL/FL UARIX) Unknown Completed [facility] Influenza Virus Vaccine Quad .5 mL IM 6+ MO (FLUZONE/FLULAVAL/FL UARIX) Unknown Completed [facility] Influenza, Trivalent, Adjuvanted Unknown Completed [facility] Influenza, Trivalent, Adjuvanted Unknown Completed [facility] DTaP, Unspecified Formulation Unknown Completed [facility] DTaP, Unspecified Formulation Unknown Completed [facility] DTaP, Unspecified Formulation Unknown Completed [facility] DTaP, Unspecified Formulation Unknown Completed [facility] Influenza Virus Vaccine Quad Nasal (Flumist) Unknown Completed [facility] Flu [facility]rivalent [facility] Com[facility] Flu Whole Virus Unknown Completed [facility] Influenza Virus Vaccine Quad IM, Preserv and ABX Free 6 MO-64 YRS (FLUCELVAX) Unknown Completed [facility] Rho (d) Immune Globulin Unknown Completed [facility] Influenza Virus Vaccine Quad .5 mL IM 6+ MO (FLUZONE/FLULAVAL/FL UARIX) Unknown Completed [facility] TDAP (ADACEL) VACCINE Unknown Completed [facility] MMR Unknown Completed [facility] Rho (d) Immune Globulin Unknown Completed [facility] DTAP Unknown Completed [facility] DTAP Unknown Completed [facility] DTAP Unknown Completed [facility] DTAP Unknown Completed [facility] HIB 4 Dose Schedule Unknown Completed [facility] HIB 4 Dose Schedule Unknown Completed [facility] HIB 4 Dose Schedule Unknown Completed [facility] HIB 4 Dose Schedule Unknown Completed [facility] HEPATITIS A Unknown Completed [facility] HEPATITIS A Unknown Completed [facility] Hep B, Adol or Pedi Dosage Unknown Completed [facility] Hep B, Adol or Pedi Dosage Unknown Completed [facility] Hep B, Adol or Pedi Dosage Unknown Completed [facility] HPV Unknown Completed [facility] HPV Unknown Completed [facility] Influenza Virus Vaccine Unknown Completed [facility] Meningococcal Vaccine Unknown Completed [facility] Varicella (varivax)(chicken pox) Unknown Completed [facility] MMR Unknown Completed [facility] Varicella (varivax)(chicken pox) Unknown Completed [facility] Rho (d) Immune Globulin Unknown Completed [facility] TDAP Unknown Completed [facility] Influenza Virus Vaccine Quad IM, Preserv and ABX Free 6 MO-64 YRS (FLUCELVAX) Unknown Completed [facility] Influenza Virus Vaccine Unknown Completed [facility] Influenza Virus Vaccine Unknown Completed [facility] Influenza Virus Vaccine Unknown Completed [facility] Influenza Virus Vaccine Unknown Completed [facility] TDAP Unknown Completed [facility] TDAP Unknown Completed [facility] TDAP Unknown Completed [facility] TDAP Unknown Completed [facility] Heamophilus Influenza B Unknown Completed [facility] Heamophilus Influenza B Unknown Completed [facility] Heamophilus Influenza B Unknown Completed [facility] Heamophilus Influenza B Unknown Completed [facility] Influenza Virus Vaccine Quad IM 3+ YRS Unknown Completed [facility] Influenza Virus Vaccine Quad IM 3+ YRS Unknown Completed [facility] Influenza Virus Vaccine Nasal Unknown Completed [facility] Influenza Virus Vaccine Nasal Unknown Completed [facility] IPV Unknown Completed [facility] IPV Unknown Completed [facility] IPV Unknown Completed [facility] Influenza Virus Vaccine Unknown Completed [facility] TDAP Unknown Completed [facility] Meningococcal Polysaccharide (groups A, C, Y and W-135) conjugate vaccine (MCV4P) Unknown Completed [facility] Influenza Virus Vaccine Quad .5 mL IM 6+ MO (FLUZONE/FLULAVAL/FL UARIX) Unknown Completed [facility] Influenza Virus Vaccine Quad .5 mL IM 6+ MO (FLUZONE/FLULAVAL/FL UARIX) Unknown Completed [facility] Influenza, Trivalent, Adjuvanted Unknown Completed [facility] Influenza, Trivalent, Adjuvanted Unknown Completed [facility] DTaP, Unspecified Formulation Unknown Completed [facility] DTaP, Unspecified Formulation Unknown Completed [facility] DTaP, Unspecified Formulation Unknown Completed [facility] DTaP, Unspecified Formulation Unknown Completed [facility] Influenza Virus Vaccine Quad Nasal (Flumist) Unknown Completed [facility] Flu Trivalent Unknown Completed [facility] Flu Trivalent Unknown Completed [facility] Flu Whole Virus Unknown Completed [facility] Influenza Virus Vaccine Quad IM, Preserv and ABX Free 6 MO-64 YRS (FLUCELVAX) Unknown Completed [facility] Vital Signs Vital Name Observation Time Observation Value Comments S ource Systolic blood pressure 2023-11-13 19:04:00 124 mm[Hg] [facility] Diastolic blood pressure 2023-11-13 19:04:00 73 mm[Hg] [facility] Heart rate 2023-11-13 19:04:00 94 /min [facility] Body temperature 2023-11-13 19:04:00 36.78 Melania [facility] Respiratory rate 2023-11-13 19:04:00 18 /min [facility] Body height 2023-11-13 19:04:00 154.9 cm [facility] Body weight 2023-11-13 19:04:00 56.79 kg [facility] BMI 2023-11-13 19:04:00 23.66 kg/m2 [facility] Systolic blood pressure 2023-10-14 18:30:00 96 mm[Hg] [facility] Diastolic blood pressure 2023-10-14 18:30:00 66 mm[Hg] [facility] Heart rate 2023-10-14 18:30:00 86 /min [facility] Respiratory rate 2023-10-14 18:30:00 18 /min [facility] Oxygen saturation in Arterial blood by Pulse oximetry 2023-10-14 18:30:00 99 /min [facility] Body temperature 2023-10-14 13:13:00 36.72 Melania [facility] Body height 2023-10-13 23:46:00 154.9 cm [facility] Body weight 2023-10-13 23:46:00 55.792 kg [facility] BMI 2023-10-13 23:46:00 23.24 kg/m2 [facility] Systolic blood pressure 2023-10-11 00:55:00 116 mm[Hg] [facility] Diastolic blood pressure 2023-10-11 00:55:00 79 mm[Hg] [facility] Heart rate 2023-10-11 00:55:00 95 /[facility] Respiratory rate 2023-10-11 00:55:00 16 /min [facility] Oxygen saturation in Arterial blood by Pulse oximetry 2023-10-11 00:55:00 99 /min [facility] Body temperature 2023-10-11 00:25:00 36.33 Melania [facility] Body height 2023-10-10 19:58:00 154.9 cm [facility] Body weight 2023-10-10 19:58:00 55.792 kg [facility] BMI 2023-10-10 19:58:00 23.24 kg/m2 [facility] Systolic blood pressure 2023-10-10 19:58:00 107 mm[Hg] [facility] Diastolic blood pressure 2023-10-10 19:58:00 68 mm[Hg] [facility] Heart rate 2023-10-10 19:58:00 97 /min [facility] Body temperature 2023-10-10 19:58:00 36.94 Melania [facility] Respiratory rate 2023-10-10 19:58:00 18 /min [facility] Body height 2023-10-10 19:58:00 154.9 cm [facility] Body weight 2023-10-10 19:58:00 55.792 kg [facility] BMI 2023-10-10 19:58:00 23.24 kg/m2 [facility] Oxygen saturation in Arterial blood by Pulse oximetry 2023-10-10 19:58:00 98 /min [facility] Systolic blood pressure 2023-10-08 14:20:00 97 mm[Hg] [facility] Diastolic blood pressure 2023-10-08 14:20:00 61 mm[Hg] [facility] Heart rate 2023-10-08 14:20:00 97 /min [facility] Body temperature 2023-10-08 14:20:00 37 Melania [facility] Respiratory rate 2023-10-08 14:20:00 16 /min [facility] Body height 2023-10-08 14:20:00 154.9 cm [facility] Body weight 2023-10-08 14:20:00 56.427 kg [facility] BMI 2023-10-08 14:20:00 23.51 kg/m2 [facility] Oxygen saturation in Arterial blood by Pulse oximetry 2023-10-08 14:20:00 97 /min [facility] Systolic blood pressure 2023 06:04:00 103 mm[Hg] [facility] Diastolic blood pressure 2023 06:04:00 65 mm[Hg] [facility] Heart rate 2023 06:04:00 95 /min [facility] Respiratory rate 2023 06:04:00 16 /min [facility] Oxygen saturation in Arterial blood by Pulse oximetry 2023 06:04:00 99 /min [facility] Body temperature 2023 03:34:00 36.67 Melania [facility] Body weight 2023 03:34:00 58.968 kg [facility] BMI 2023 03:34:00 23.78 kg/m2 [facility] Systolic blood pressure 2023-08-15 13:02:00 105 mm[Hg] [facility] Diastolic blood pressure 2023-08-15 13:02:00 71 mm[Hg] [facility] Heart rate 2023-08-15 13:02:00 76 /min [facility] Respiratory rate 2023-08-15 13:02:00 18 /min [facility] Body height 2023-08-15 13:02:00 157.5 cm [facility] Body weight 2023-08-15 13:02:00 57.607 kg [facility] BMI 2023-08-15 13:02:00 23.23 kg/m2 [facility] Systolic blood pressure 2023-05-14 20:46:00 108 mm[Hg] [facility] Diastolic blood pressure 2023-05-14 20:46:00 75 mm[Hg] [facility] Heart rate 2023-05-14 20:46:00 102 /min [facility] Body temperature 2023-05-14 20:46:00 36.78 Melania [facility] Respiratory rate 2023-05-14 20:46:00 18 /min [facility] Body height 2023-05-14 20:46:00 157.5 cm [facility] Body weight 2023-05-14 20:46:00 60.328 kg [facility] BMI 2023-05-14 20:46:00 24.33 kg/m2 [facility] Systolic blood pressure 2023-02-18 20:19:00 111 mm[Hg] [facility] Diastolic blood pressure 2023-02-18 20:19:00 76 mm[Hg] [facility] Heart rate 2023-02-18 20:19:00 112 /min [facility] Body temperature 2023-02-18 20:19:00 36.78 Melania [facility] Respiratory rate 2023-02-18 20:19:00 18 /min [facility] Body height 2023-02-18 20:19:00 157.5 cm [facility] Body weight 2023-02-18 20:19:00 60.147 kg [facility] BMI 2023-02-18 20:19:00 24.25 kg/m2 [facility] Systolic blood pressure 2022-11-18 20:53:00 100 mm[Hg] [facility] Diastolic blood pressure 2022-11-18 20:53:00 70 mm[Hg] [facility] Heart rate 2022-11-18 20:53:00 97 /min [facility] Body temperature 2022-11-18 20:53:00 37.06 Melania [facility] Respiratory rate 2022-11-18 20:53:00 18 /min [facility] Body height 2022-11-18 20:53:00 157.5 cm [facility] Body weight 2022-11-18 20:53:00 59.421 kg [facility] BMI 2022-11-18 20:53:00 23.96 kg/m2 [facility] Systolic blood pressure 2022-08-26 20:11:00 113 mm[Hg] [facility] Diastolic blood pressure 2022-08-26 20:11:00 80 mm[Hg] [facility] Heart rate 2022-08-26 20:11:00 91 /min [facility] Body temperature 2022-08-26 20:11:00 36.72 Melania [facility] Respiratory rate 2022-08-26 20:11:00 16 /min [facility] Body height 2022-08-26 20:11:00 157.5 cm [facility] Body weight 2022-08-26 20:11:00 57.879 kg [facility] BMI 2022-08-26 20:11:00 23.34 kg/m2 [facility] Systolic blood pressure 2022-07-03 20:26:00 108 mm[Hg] [facility] Diastolic blood pressure 2022-07-03 20:26:00 76 mm[Hg] [facility] Heart rate 2022-07-03 20:26:00 103 /min [facility] Body temperature 2022-07-03 20:25:00 36.89 Melania [facility] Respiratory rate 2022-07-03 20:25:00 16 /min [facility] Body height 2022-07-03 20:25:00 157.5 cm [facility] Body weight 2022-07-03 20:25:00 58.968 kg [facility] BMI 2022-07-03 20:25:00 23.78 kg/m2 [facility] Oxygen saturation in Arterial blood by Pulse oximetry 2022-07-03 20:25:00 98 /min [facility] Height 2020-12-01 10:53:00 154.94 CM Weight 2020-12-01 10:53:00 50.8 KG Procedures Procedure Date / Time Performed Performing Clinician Source HEPATITIS B SURFACE ANTIGEN 2023-11-13 19:34:00 Zarina Kennedy [facility] HCV ANTIBODY 2023-11-13 19:34:00 Zarina Kennedy [facility] HIV 1/2 AG-AB WITH REFLEX 2023-11-13 19:34:00 Catie Kennedy [facility] FLU VACC ([id number]), 6 MO-64 YRS, .5ML, IM, QUAD (FLUCELVAX) 2023-11-13 19:17:34 Zarina Kennedy [facility] EXTERNAL PROVIDER RECORDS 2023-10-24 06:01:00 Do ctor Unassigned, Briar Chapel [facility] BASIC METABOLIC PANEL (NA, K, CL, CO2, GLUCOSE, BUN, CREATININE, CA) 2023-10-14 10:38:00 Justyn [facility] CBC WITH DIFF 2023-10-14 10:38:00 Mallorie Alejandra [facility] TEST, URINE 2023-10-14 01:42:00 Elliott Priest Patrick [facility] URINALYSIS 2023-10-14 01:42:00 Elliott Priest U [facility] BASIC METABOLIC PANEL (NA, K, CL, CO2, GLUCOSE, BUN, CREATININE, CA) 2023-10-14 01:41:00 Elliott Priest [facility] CBC WITH DIFF 2023-10-14 01:41:00 Elliott Priest [facility] FL TIME OR (NON-REPORTABLE) 2023-10-11 00:20:00 Justyn [facility] FL TIME OR (NON-REPORTABLE) 2023-10-11 00:20:00 Justyn [facility] URETEROSCOPIC STONE MANIPULATION 2023-10-10 23:21:00 Justyn [facility] DAY SURGERY - [place] 2023-10-10 06:01:00 Doctor Unassigned, Briar Chapel [facility] US RETROPERITONEAL LIMITED 2023 05:54:30 King Yosvany Keller [facility] POCT TEST 2023 04:05:00 Job Keyes [facility] COMP. METABOLIC PANEL (61041) 2023 04:02:00 Iris Keyes [facility] CBC WITH DIFF 2023 04:02:00 Iris Keyes [facility] URINALYSIS 2023 04:02:00 Iris Keyes Un [facility] CONSENT/REFUSAL FOR DIAGNOSIS AND TREATMENT 2023 03:26:20 Doctor Unassigned, Briar Chapel [facility] REFERRAL- REQUEST/RESPONSE 2023-06-03 05:01:00 Adalid wyatt Unassigned, [place] [facility] PATIENT FINANCIAL POLICY 2023-02-18 19:57:32 Doctor Unassigned, Briar Chapel [facility] ASSIGNMENT OF BENEFITS 2022-11-18 20:21:23 Docto r Unassigned, Briar Chapel [facility] Encounters Start Date/Time End Date/Time Encounter Type Admission Type Attending [facility] Care Department Encounter ID Source 2021-09-11 07:20:36 Emergency [facility] [id number] [facility] ity [facility] 2021-09-11 07:18:00 Emergency [facility] [id number] [facility] ity [facility] 2021-09-11 05:25:53 [id number] 2021-09-10 12:34:55 [facility] [id number] [facility] 2021-09-10 00:32:19 Outpatient [facility] ERT [id number] [facility] ity [facility] 2021-09-10 00:25:14 Emergency [facility] [id number] [facility] 2021-09-09 03:49:13 [facility] [id number] [facility] 2021-09-07 12:08:59 [facility] [id number] it[facility] 2021-09-06 14:24:34 Outpatient P [facility] JONI [id number] [facility] 2021-09-06 14:21:12 Outpatient P [facility] JONI [id number] [facility] ity [facility] 2021-09-06 13:39:14 Outpatient P [facility] JONI [id number] [facility] 2021-09-06 13:35:43 Outpatient P [facility] JONI [id number] [facility] 2024-01-01 08:17:49 2024-01-01 08:17:49 Outpatient [facility] [id number] Dirk Milan 2023-12-31 16:57:01 2023-12-31 16:57:01 Outpatient [facility] [id number] Dirk Milan 2023-12-25 11:58:12 2023-12-25 11:58:12 Outpatient [facility] [id number] Dirk Milan 2023-11-13 13:45:00 2023-11-13 14:09:01 Curtain Cutter Visit 2, Adc Lab Zarina Kennedy [facility] PROFESSIO NAL BUILDING 1.2840.114 350.1.13.10 4.2.7.2.686 [id number] [facility] 2023-11-13 13:15:00 2023-11-13 13:26:31 Outpatient R BRENT ZARINA [facility] [id number] [facility] 2023-11-13 13:15:00 2023-11-13 13:26:31 Office Visit Brent [facility] 1.2840.114 350.1.13.10 4.2.7.2.686 [id number] [facility] 2023-10-24 00:00:00 2023-10-24 00:00:00 Orders Only Doctor Unassigned, Briar Chapel [facility] 1.2840.114 350.1.13.10 4.2.7.2.686 [id number] [facility] 2023-10-13 17:48:00 2023-10-14 16:08:00 Outpatient X MARCO A LARSON [facility] [id number] [facility] 2023-10-13 17:48:00 2023-10-14 16:08:00 Emergency Mallorie Alejandra Mahmoud Eisenberg, Michael [facility] ([facility] 1.2840.114 350.1.13.10 4.2.7.2.686 [id number] [facility] 2023-10-13 00:00:00 2023-10-13 00:00:00 Telephone Mallorie Alejandra [facility] OFFICE BUILDING 1.2840.114 350.1.13.10 4.2.7.2.686 [id number] [facility] 2023-10-10 13:39:00 2023-10-10 19:08:00 Outpatient [facility] SUU [id number] [facility] 2023-10-10 13:39:00 2023-10-10 19:08:00 [facility] 1.2840.114 350.1.13.10 4.2.7.2.686 [id number] [facility] 2023-10-10 15:01:00 2023-10-10 16:22:00 Surgery Justyn [facility] 1.2840.114 350.1.13.10 4.2.7.2.686 [id number] [facility] 2023-10-10 00:00:00 2023-10-10 00:00:00 Orders Only Doctor Unassigned, Briar Chapel [facility] 1.2840.114 350.1.13.10 4.2.7.2.686 [id number] [facility] 2023-10-09 09:26:26 2023-10-09 09:26:26 Outpatient [facility] [id number] Dirk Milan 2023-10-08 08:30:00 2023-10-08 15:45:08 Outpatient R AILIN TANG [facility] [id number] [facility] 2023-10-08 08:30:00 2023-10-08 15:45:08 Office Visit Ailin Tang [facility] OFFICE BUILDING 1.840.114 350.1.13.10 4.2.7.2.686 [id number] [facility] 2023-10-05 21:35:00 2023 01:06:00 Emergency X CHANDANA SOTELO PAUL [facility] ERT [id number] [facility] 2023-10-05 21:35:00 2023 01:06:00 Emergency Jackie Griffin, Iris Sotelo, [facility] 1.2.840.114 350.1.13.10 4.2.7.2.686 [id number] [facility] 2023-10-04 14:17:02 2023-10-04 14:17:02 Outpatient [facility] [id number] Dirk Nickerson Bjorn 2023-09-17 16:48:16 2023-09-17 16:48:16 Outpatient [facility] [id number] Dirk Nickerson Bjorn 2023-09-11 09:11:57 2023-09-11 09:11:57 Outpatient [facility] [id number] Dirk Nickerson Bjorn 2023-08-26 15:44:47 2023-08-26 15:44:47 Outpatient [facility] [id number] Dirk Nickerson [place] 2023-08-15 08:00:00 2023-08-15 08:15:00 Nurse Visit Nurse, [facility] Zarina Kennedy [facility] 1.2.840.114 350.1.13.10 4.2.7.2.686 [id number] [facility] 2023-08-15 08:00:00 2023-08-15 08:00:00 Outpatient ZARINA DERAS [facility] [id number] [facility] 2023-08-14 08:15:00 2023-08-14 08:15:00 Outpatient BRIT HOGAN [facility] [id number] [facility] 2023-07-31 09:30:00 2023-07-31 09:30:00 Outpatient IDA ARREOLA [facility] [id number] [facility] 2023-06-26 14:44:34 2023-06-26 14:44:34 Outpatient [facility] [id number] Dirk Nickerson Bjorn 2023-06-11 10:54:47 2023-06-11 10:54:47 Outpatient [facility] [id number] Dirk Milan 2023-06-03 00:00:00 2023-06-03 00:00:00 Orders Only Doctor Unassigned, Briar Chapel [facility] 1.2.840.114 350.1.13.10 4.2.7.2.686 [id number] [facility] 2023-05-21 09:11:27 2023-05-21 09:11:27 Outpatient [facility] [id number] Dirk Milan 2023-05-14 15:30:00 2023-05-14 15:45:47 Nurse Visit Nurse, [facility] Women's [facility] Norma Partida [facility] 1.2.840.114 350.1.13.10 4.2.7.2.686 [id number] 134 [id number] [facility] 2023-05-14 15:30:00 2023-05-14 15:30:00 Outpatient R NORMA PARTIDA [facility] [id number] [facility] 2023-04-30 14:56:01 2023-04-30 14:56:01 Outpatient [facility] [id number] Dirk Milan 2023-04-21 16:15:00 2023-04-21 16:15:00 Outpatient R NASSAR-MARSHAL S, HINA MADAY-MARSHAL S, HINA [facility] [id number] [facility] 2023-03-21 14:00:00 2023-03-21 14:00:00 Outpatient R WENDY RIVERA [facility] [id number] [facility] 2023-03-18 15:33:41 2023-03-18 15:33:41 Outpatient [facility] [id number] Dirk Milan 2023-02-28 00:00:00 2023-02-28 00:00:00 Telephone Zarina Kennedy [facility] 1..840.114 350.1.13.10 4.2.7.2.686 [id number] [facility] 2023-02-18 15:30:00 2023-02-18 15:30:00 Nurse Visit Nurse, [facility] Wendy Rivera [facility] BU[facility] 1.2.840.114 350.1.13.10 4.2.7.2.686 [id number] [facility] 2023-02-18 15:30:00 2023-02-18 15:15:55 Outpatient R JEDSARWATWENDY SHETTY [facility] [id number] [facility] 2023-02-18 00:00:00 2023-02-18 00:00:00 Orders Only Doctor Unassigned, [place]ar [place] [facility] 1..840.114 350.1.13.10 4.2.7.2.686 [id number] [facility] 2023-02-12 15:57:07 2023-02-12 15:57:07 Outpatient [facility] [id number] Dirk F Bjorn 2022-12-31 14:30:00 2022-12-31 14:30:00 Outpatient R ZARINA KENNEDY [facility] [id number] [facility] 2022-12-28 00:00:00 2022-12-28 00:00:00 Telephone Zarina Kennedy [facility] 1.2.840.114 350.1.13.10 4.2.7.2.686 [id number] 134 [id number] [facility] 2022-12-23 00:00:00 2022-12-23 00:00:00 Telephone Zarina Kennedy [facility] BU[facility] 1.2.840.114 350.1.13.10 4.2.7.2.686 [id number] [facility] 2022-12-20 15:45:35 2022-12-20 15:45:35 Outpatient [facility]FA [facility] [id number] Dirk Milan 2022-12-05 08:00:00 2022-12-05 08:00:00 Outpatient R ZARINA KENNEDY [facility] [id number] [facility] 2022-11-28 00:00:00 2022-11-28 00:00:00 [facility] 1.2.840.114 350.1.13.10 4.2.7.2.686 [id number] [facility] 2022-11-21 08:56:00 2022-11-21 08:56:00 Outpatient [facility] [id number] Dirk Milan 2022-11-18 14:30:00 2022-11-18 15:20:30 Outpatient R NICOLE [facility] [id number] [facility] 2022-11-18 14:30:00 2022-11-18 15:20:30 Office Visit Nicole [facility] 1.284.114 350.1.13.10 4.2.7.2.686 [id number] [facility] 2022-11-18 00:00:00 2022-11-18 00:00:00 Orders Only Doctor Unassigned, Briar Chapel [facility] 1.2.114 350.1.13.10 4.2.7.2.686 [id number] [facility] 2022-10-29 09:00:00 2022-10-29 09:00:00 Outpatient R GUTIERREZ BRAVO [facility] [id number] [facility] 2022-10-28 00:00:00 2022-10-28 00:00:00 Telephone [facility] 1.84.114 350.1.13.10 4.2.7.2.686 [id number] [facility] [id number] [facility] 2022-10-23 00:00:00 2022-10-23 00:00:00 [facility]..840.114 350.1.13.10 4.2.7.2.686 [id number] [facility] 2022-08-26 14:30:00 2022-08-26 15:11:07 [facility] [id number] [facility] 2022-08-26 14:30:00 2022-08-26 15:11:07 Nurse Visit Nurse, [facility] Nicole [facility] 1.2.840.114 350.1.13.10 4.2.7.2.686 [id number] [facility] 2022-07-03 17:00:00 2022-07-03 17:15:00 Curtain Cutter Visit [facility] 1..840.114 350.1.13.10 4.2.7.2.686 [id number] [facility] 2022-07-03 16:00:00 2022-07-03 16:06:31 Outpatient Stevo BRAVO [facility] [id number] [facility] 2022-07-03 16:00:00 2022-07-03 16:06:31 Office Visit Isha Marie [facility] 1..840.114 350.1.13.10 4.2.7.2.686 [id number] [facility] 2022-07-03 16:00:00 2022-07-03 16:06:31 Outpatient Stevo BRAVO [facility] [id number] [facility] 2022-07-03 16:00:00 2022-07-03 16:06:31 Outpatient Stevo BRAVO GUTIERREZ [facility] [id number] [facility] 2022-06-19 00:00:00 2022-06-19 00:00:00 Telephone [place], Nephrology [facility] 1.2840.114 350.1.13.10 4.2.7.2.686 [id number] [facility] 2022-06-12 00:00:00 2022-06-12 00:00:00 Telephone [place], Nephrology [facility] 1.2840.114 350.1.13.10 4.2.7.2.686 [id number] [facility] 2022-06-03 14:00:00 2022-06-03 14:15:27 Outpatient Stevo RIVERA WENDY [facility] [id number] [facility] 2022-06-03 14:00:00 2022-06-03 14:15:27 Nurse Visit Nurse, [facility] Nicole [facility] 1..840.114 350.1.13.10 4.2.7.2.686 [id number] [facility] 2022-04-04 15:00:00 2022-04-04 15:00:00 Outpatient Stevo RIVERA [facility] [id number] [facility] 2022-04-03 13:10:05 2022-04-03 23:59:00 Outpatient Stevo RIVERA [facility] [id number] [facility] 2022-04-03 13:00:00 2022-04-03 23:59:00 Hospital Encounter Nicole Wendy [facility] 1..840.114 350.1.13.10 4.2.7.2.686 [id number] [facility] 2022-04-03 00:00:00 2022-04-03 00:00:00 Orders Only Doctor Unassigned, Briar [place] [facility] 1.2.840.114 350.1.13.10 4.2.7.2.686 [id number] [facility] 2022-04-03 00:00:00 2022-04-03 00:00:00 Case Management eWndy Rivera [facility] BU[facility] 1..840.114 350.1.13.10 4.2.7.2.686 [id number] [facility] 2022-03-27 09:30:00 2022-03-27 09:30:00 Outpatient R ZARINA KENNEDY [facility] [id number] [facility] 2022-03-27 09:30:00 2022-03-27 09:30:00 Outpatient R BRENT ZARINA [facility] [id number] [facility] 2022-03-27 09:30:00 2022-03-27 09:30:00 Outpatient R ZARINA KENNEDY [facility] [id number] [facility] 2022-03-07 14:00:00 2022-03-07 14:18:10 Outpatient ZARINA DERAS [facility] [id number] [facility] 2022-03-07 14:00:00 2022-03-07 14:18:10 Nurse Visit Nurse, [facility] Women's [facility] Zarina Kennedy [facility] 1..840.114 350.1.13.10 4.2.7.2.686 [id number] [facility] 2022-02-28 00:00:00 2022-02-28 00:00:00 Telephone Wendy Rivera [facility] 1..840.114 350.1.13.10 4.2.7.2.686 [id number] [facility] 2022-02-26 15:00:00 2022-02-26 16:12:25 Outpatient R NORMA PARTIDA [facility] [id number] [facility] 2022-02-26 15:00:00 2022-02-26 16:12:25 Office Visit Nicole Wendy Norma Partida [facility] 1.84.114 350.1.13.10 4.2.7.2.686 [id number] 134 [id number] [facility] 2021-12-13 10:30:00 2021-12-13 10:42:25 Outpatient R BRENT ZARINA [facility] [id number] [facility] 2021-12-13 10:30:00 2021-12-13 10:42:25 Nurse Visit Nurse, [facility] KennedyZarina Marcus [facility] 1.840.114 350.1.13.10 4.2.7.2.686 [id number] 134 [id number] [facility] 2021-12-13 10:30:00 2021-12-13 10:30:00 Outpatient R [facility] [id number] [facility] 2021-12-13 00:00:00 2021-12-13 00:00:00 Orders Only Doctor Unassigned, [place] [facility] 1.84.114 350.1.13.10 4.2.7.2.686 [id number] [facility] 2021-12-07 13:00:00 2021-12-07 13:00:00 Outpatient STAN SPEARS HOWARD [facility] [id number] [facility] 2021-11-28 12:55:00 2021-11-28 16:24:00 Emergency X Pedro MILLER [facility] ERT [id number] [facility] 2021-11-28 12:55:00 2021-11-28 16:24:00 Emergency Pedro Miller [facility] 1.84.114 350.1.13.10 4.2.7.2.686 [id number] [facility] 2021-11-28 00:00:00 2021-11-28 00:00:00 Orders Only Doctor Unassigned, [place] [facility] 1.2840.114 350.1.13.10 4.2.7.2.686 [id number] [facility] 2021-10-22 09:00:00 2021-10-22 09:29:56 Outpatient R WENDY RIVERA [facility] [id number] [facility] 2021-10-22 08:40:07 2021-10-22 09:29:56 Office Visit Wendy Rivera [facility] 1.2.840.114 350.1.13.10 4.2.7.2.686 [id number] [facility] 2021-09-27 10:30:00 2021-09-27 10:53:39 Outpatient R WENDY RIVERA [facility] [id number] [facility] 2021-09-27 10:24:13 2021-09-27 10:53:39 [facility]ine [facility] 1.2.840.114 350.1.13.10 4.2.7.2.686 [id number] 134 [id number] [facility] 2021-09-12 00:00:00 2021-09-12 00:00:00 Telephone Wendy Rivera [facility] 1.2.840.114 350.1.13.10 4.2.7.2.686 [id number] 134 [id number] [facility] 2021-09-10 04:05:00 2021-09-11 16:00:00 Inpatient P ZARINA KENNEDY [facility] [id number] [facility] 2021-09-10 04:05:00 2021-09-11 16:00:00 Hospital Encounter Zarina Kennedy [facility] 1.2.840.114 350.1.13.10 4.2.7.2.686 [id number] [facility] 2021-09-10 08:35:00 2021-09-10 16:19:00 Anesthesia Event BoynusratJordan Leonard [facility] 1.2.840.114 350.1.13.10 4.2.7.2.686 [id number] [facility] 2021-09-07 10:06:22 2021-09-07 10:21:22 Laboratory Only Only, Adc Test Zarina Kennedy [facility] 1.2.840.114 350.1.13.10 4.2.7.2.686 [id number] [facility] 2021-09-07 10:15:00 2021-09-07 10:15:00 Outpatient R ZARINA KENNEDY [facility] [id number] [facility] 2021-09-06 11:00:13 2021-09-06 11:58:29 Routine Visit Zarina Kennedy [facility] PROFESSIO [facility] BUILDING 1.2840.114 350.1.13.10 4.2.7.2.686 [id number] 134 [id number] [facility] 2021-09-06 11:00:00 2021-09-06 11:58:29 Outpatient R ZARINA KENNEDY [facility] [id number] [facility] 2021-09-04 13:23:00 2021-09-04 15:35:00 Hospital Encounter Zarina Kennedy Norma Partida [facility] 1.2.840.114 350.1.13.10 4.2.7.2.686 [id number] [facility] 2021-09-04 13:23:00 2021-09-04 15:35:00 Outpatient P ZARINA KENNEDY [facility] ERT [id number] [facility] 2021-09-04 11:00:00 2021-09-04 12:14:54 [facility] [id number] [facility] 2021-09-04 10:42:04 2021-09-04 12:14:54 Routine Visit Wendy Rivera [facility] 1.2.840.114 350.1.13.10 4.2.7.2.686 [id number] 134 [id number] [facility] 2021-09-04 00:00:00 2021-09-04 00:00:00 Telephone Kennedy Zarina Velazquez [facility] Professio nal Building 1.2.840.114 350.1.13.10 4.2.7.2.686 [id number] [facility] 2021-09-03 16:15:00 2021-09-03 16:15:00 Outpatient R JEDEMORY [facility] [id number] [facility] 2021-08-27 16:30:00 2021-08-27 16:30:00 [facility] [id number] [facility] 2021-08-27 15:51:06 2021-08-27 16:29:15 Routine Visit Brent Zarina Marcus Rivera [facility] Professio nal Building 1.2.840.114 350.1.13.10 4.2.7.2.686 [id number] 134 [id number] [facility] 2021-08-25 22:15:00 2021-08-25 23:30:00 Hospital Encounter Kary Oseguera [facility] 1.2.840.114 350.1.13.10 4.2.7.2.686 [id number] [facility] 2021-08-25 09:36:00 2021-08-25 18:31:00 Emergency FishKary [facility] 1.2.840.114 350.1.13.10 4.2.7.2.686 [id number] [facility] 2021-08-24 00:00:00 2021-08-24 00:00:00 Telephone Zarina Kennedy [facility] Professio nal Building 1.2840.114 350.1.13.10 4.2.7.2.686 [id number] 134 [id number] [facility] 2021-08-24 00:00:00 2021-08-24 00:00:00 [facility] 1.2840.114 350.1.13.10 4.2.7.2.686 [id number] 134 [id number] [facility] 2021-08-20 08:20:54 2021-08-20 09:06:30 Routine Visit Zarina Kennedy [facility] Building 1.20.114 350.1.13.10 4.2.7.2.686 [id number] [facility] 2021-08-20 08:00:00 2021-08-20 08:00:00 Outpatient R ZARINA KENNEDY [facility] [id number] [facility] 2021-08-20 00:00:00 2021-08-20 00:00:00 Telephone KennedyZarina [facility] Building 1.2840.114 350.1.13.10 4.2.7.2.686 [id number] 134 [id number] [facility] 2021-08-20 00:00:00 2021-08-20 00:00:00 Orders Only Doctor Unassigned, [place] [facility] 1.20.114 350.1.13.10 4.2.7.2.686 [id number] [facility] 2021-08-17 19:05:00 2021-08-17 21:15:00 Hospital Encounter Zarina Kennedy [facility] 1.2.840.114 350.1.13.10 4.2.7.2.686 [id number] [id number] [facility] 2021-08-17 00:00:00 2021-08-17 00:00:00 Orders Only Doctor Unassigned, [place] [facility] 1.2.840.114 350.1.13.10 4.2.7.2.686 [id number] [facility] 2021-08-13 16:00:00 2021-08-13 16:00:00 Outpatient R NICOLE [facility] [id number] [facility] 2021-08-13 13:32:20 2021-08-13 13:47:20 Curtain Cutter Visit 2, Adc Lab Nicole [facility] nal Building 1.2.840.114 350.1.13.10 4.2.7.2.686 [id number] 353 [id number] [facility] 2021-08-13 12:46:01 2021-08-13 13:29:24 Routine Visit Jedemory Wendy [facility] nal Building 1.2.840.114 350.1.13.10 4.2.7.2.686 [id number] 134 [id number] [facility] 2021-08-11 00:00:00 2021-08-11 00:00:00 Nurse Triage Lashay Merritt [facility] 1.2.840.114 350.1.13.10 4.2.7.2.686 [id number] 019 [id number] [facility] 2021-08-03 10:23:00 2021-08-03 13:15:00 Hospital Encounter Zarina Kennedy Vivian L [facility] 1..114 350.1.13.10 4.2.7.2.686 [id number] 083 [id number] [facility] 2021-08-03 00:00:00 2021-08-03 00:00:00 Telephone [facility] 1.2.114 350.1.13.10 4.2.7.2.686 [id number] 134 [id number] [facility] 2021-08-03 00:00:00 2021-08-03 00:00:00 Orders Only Doctor Unassigned, [place] [facility] 1.2840.114 350.1.13.10 4.2.7.2.686 [id number] [id number] [facility] 2021-08-01 15:55:38 2021-08-01 16:48:02 Routine Visit Zarina Kennedy [facility] 1.84.114 350.1.13.10 4.2.7.2.686 [id number] 134 [id number] [facility] 2021-08-01 16:15:00 2021-08-01 16:15:00 Outpatient WENDY WALDROP [facility] [id number] [facility] 2021-07-20 13:13:35 2021-07-20 13:57:45 Curtain Cutter Visit Ultrasound, Adc Mfm Sherry Cherry [facility] Building 1.84.114 350.1.13.10 4.2.7.2.686 [id number] 134 [id number] [facility] 2021-07-20 13:30:00 2021-07-20 13:30:00 Outpatient P [facility] [id number] [facility] 2021-07-18 09:45:00 2021-07-18 09:45:00 Outpatient R WENDY RIVERA [facility] [id number] [facility] 2021-07-18 08:15:00 2021-07-18 08:15:00 Outpatient R [facility] [id number] [facility] 2021-07-17 15:44:11 2021-07-17 16:52:37 Routine Visit Zarina Kennedy [facility] 1.2.840.114 350.1.13.10 4.2.7.2.686 [id number] 134 [id number] [facility] 2021-07-17 15:44:11 2021-07-17 16:52:37 Routine Visit Zarina Kennedy [facility] 1.2.840.114 350.1.13.10 4.2.7.2.686 [id number] 134 [id number] [facility] 2021-07-17 16:15:00 2021-07-17 16:15:00 Outpatient R [facility] [id number] [facility] 2021-07-17 00:00:00 2021-07-17 00:00:00 Orders Only Doctor Unassigned, [place] [address]018.2.840.114 350.1.13.10 4.2.7.2.686 [id number] 009 [id number] [facility] 2021-07-17 00:00:00 2021-07-17 00:00:00 Orders Only Doctor Unassigned, [place] [facility] 1.2.840.114 350.1.13.10 4.2.7.2.686 [id number] [id number] [facility] 2021-07-09 11:15:00 2021-07-09 11:15:00 Outpatient R ZARINA KENNEDY [facility] [id number] [facility] 2021-07-03 00:00:00 2021-07-03 00:00:00 Telephone Kennedy, [facility] 1.2.840.114 350.1.13.10 4.2.7.2.686 [id number] 134 [id number] [facility] 2021-07-03 00:00:00 2021-07-03 00:00:00 Telephone Zarina Kennedy [facility] 1.2.840.114 350.1.13.10 4.2.7.2.686 [id number] 134 [id number] [facility] 2021-06-28 10:40:29 2021-06-28 10:55:29 Curtain Cutter Visit 2, Adc Lab Zarina Kennedy [facility] nal Building 1.2.840.114 350.1.13.10 4.2.7.2.686 [id number] 353 [id number] [facility] 2021-06-28 10:40:29 2021-06-28 10:55:29 Curtain Cutter Visit 2, Adc Lab Zarina Kennedy [facility] Building 1.2.840.114 350.1.13.10 4.2.7.2.686 [id number] 353 [id number] [facility] 2021-06-28 10:00:00 2021-06-28 10:00:00 Outpatient R [facility] [id number] [facility] 2021-06-28 00:00:00 2021-06-28 00:00:[address] [facility] nal Building 1.2.840.114 350.1.13.10 4.2.7.2.686 [id number] 134 [id number] [facility] 2021-06-25 10:31:20 2021-06-25 11:38:32 Routine Visit Zarina Kennedy [facility] 1.2.840.114 350.1.13.10 4.2.7.2.686 [id number] 134 [id number] [facility] 2021-06-25 11:00:00 2021-06-25 11:00:00 Outpatient R ZARINA KENNEDY [facility] [id number] [facility] 2021-06-11 17:01:00 2021-06-11 19:52:00 Emergency Zarina Kennedy [facility] 1.2.840.114 350.1.13.10 4.2.7.2.686 [id number] 083 [id number] [facility] 2021-06-11 00:00:00 2021-06-11 00:00:00 Telephone Zarina Kennedy [facility] nal Building 1.2.840.114 350.1.13.10 4.2.7.2.686 [id number] 134 [id number] [facility] 2021-06-07 00:00:00 2021-06-07 00:00:00 Telephone Zarina Kennedy [facility] 1.2.840.114 350.1.13.10 4.2.7.2.686 [id number] 134 [id number] [facility] 2021-05-29 15:17:17 2021-05-29 15:49:09 Nurse Visit Nurse, [facility] Zarina Kennedy [facility] nal Building 1.2.840.114 350.1.13.10 4.2.7.2.686 [id number] 134 [id number] [facility] 2021-05-29 15:07:51 2021-05-29 15:22:51 Curtain Cutter Visit 2, [facility] Lab [facility] Kennedy [facility]al Building 1.2.840.114 350.1.13.10 4.2.7.2.686 [id number] 353 [id number] [facility] 2021-05-29 15:00:00 2021-05-29 15:00:00 Outpatient R [facility] [id number] [facility] 2021-05-29 00:00:00 2021-05-29 00:00:00 Telephone Zarina Kennedy [facility] Building 1.2.840.114 350.1.13.10 4.2.7.2.686 [id number] 134 [id number] [facility] 2021-05-28 13:26:09 2021-05-28 14:18:04 Routine [facility] 1.2.840.114 350.1.13.10 4.2.7.2.686 [id number] 134 [id number] [facility] 2021-05-28 13:30:00 2021-05-28 13:30:00 Outpatient R [facility] [id number] [facility] 2021-05-09 11:15:00 2021-05-09 11:15:00 Outpatient R WENDY RIVERA [facility] [id number] [facility] 2021-05-09 10:58:18 2021-05-09 11:13:18 Routine Visit Wendy [facility] 1.2.840.114 350.1.13.10 4.2.7.2.686 [id number] 134 [id number] [facility] 2021-05-07 00:00:00 2021-05-07 00:00:00 Telephone Zarina Kennedy [facility] 1.2.840.114 350.1.13.10 4.2.7.2.686 [id number] 134 [id number] [facility] 2021-04-27 12:57:28 2021-04-27 13:57:28 Curtain Cutter Visit Ultrasound, Adc MfKian Cantu [facility] Building 1.2.840.114 350.1.13.10 4.2.7.2.686 [id number] 134 [id number] [facility] 2021-04-27 13:00:00 2021-04-27 13:00:00 Outpatient R [facility] [id number] [facility] 2021-04-24 00:00:00 2021-04-24 00:00:00 Telephone Zarina Kennedy [facility] Building 1.2840.114 350.1.13.10 4.2.7.2.686 [id number] 134 [id number] [facility] 2021-04-21 16:26:26 2021-04-21 16:59:11 Telemedici ne Visit Mihai Fernandez Unknown, Attending [facility] 1.2.114 350.1.13.10 4.2.7.2.686 [id number] [facility] 2021-04-21 16:30:00 2021-04-21 16:30:00 Outpatient R UNKNOWN, ATTENDING [facility] [id number] [facility] 2021-04-19 11:49:00 2021-04-19 16:10:00 Emergency Zarina Kennedy [facility] 1.2840.114 350.1.13.10 4.2.7.2.686 [id number] [facility] 2021-04-19 00:00:00 2021-04-19 00:00:00 Telephone Zarina Kennedy [facility] Building 1.20.114 350.1.13.10 4.2.7.2.686 [id number] 134 [id number] [facility] 2021-04-11 13:32:48 2021-04-11 13:47:48 Curtain Cutter Visit 2, Adc Lab Zarina Kennedy [facility] Building 1.2840.114 350.1.13.10 4.2.7.2.686 [id number] [facility] [id number] [facility] 2021-04-11 13:05:36 2021-04-11 13:28:34 Routine Visit Zarina Kennedy [facility] Professio nal Building 1.2.840.114 350.1.13.10 4.2.7.2.686 [id number] 134 [id number] [facility] 2021-04-11 13:00:00 2021-04-11 13:00:00 Outpatient R ZARINA KENNEDY [facility] [id number] [facility] 2021-03-14 12:43:31 2021-03-14 13:35:28 Routine Visit Wendy Rivera [facility] Building 1.2.840.114 350.1.13.10 4.2.7.2.686 [id number] 134 [id number] [facility] 2021-03-14 12:43:31 2021-03-14 13:35:28 Routine Visit Wendy Rivera [facility] Building 1.2.840.114 350.1.13.10 4.2.7.2.686 [id number] 134 [id number] 2021-03-14 13:00:00 2021-03-14 13:00:00 [facility] [id number] [facility] 2021-02-28 00:00:00 2021-02-28 00:00:00 Telephone Zarina Kennedy [facility] Building 1.2.840.114 350.1.13.10 4.2.7.2.686 [id number] 134 [id number] [facility] 2021-02-21 13:15:00 2021-02-21 13:15:00 Outpatient R [facility] [id number] [facility] 2021-02-21 00:00:00 2021-02-21 00:00:00 Orders Only Doctor Unassigned, [place] [facility] 1.2840.114 350.1.13.10 4.2.7.2.686 [id number] [id number] [facility] 2021-02-14 15:01:28 2021-02-14 15:58:16 Routine Visit Zarina Kennedy [facility] 1.2.840.114 350.1.13.10 4.2.7.2.686 [id number] 134 [id number] [facility] 2021-02-14 15:45:00 2021-02-14 15:45:00 Outpatient R ZARINA KENNEDY [facility] [id number] [facility] 2021-01-23 00:00:00 2021-01-23 00:00:00 Orders Only Doctor Unassigned, [place] [facility] 1.2840.114 350.1.13.10 4.2.7.2.686 [id number] [id number] [facility] 2021-01-19 00:00:00 2021-01-19 00:00:00 Telephone Zarina Kennedy [facility] 1.2.840.114 350.1.13.10 4.2.7.2.686 [id number] 134 [id number] [facility] 2021-01-18 14:10:26 2021-01-18 14:25:26 Curtain Cutter Visit 2, Adc Lab Zarina Kennedy [facility] 1.2.840.114 350.1.13.10 4.2.7.2.686 [id number] 353 [id number] [facility] 2021-01-18 14:15:00 2021-01-18 14:15:00 Outpatient R [facility] [id number] [facility] 2021-01-18 00:00:00 2021-01-18 00:00:00 Case Management Wendy Rivera [facility] Building 1.2.840.114 350.1.13.10 4.2.7.2.686 [id number] 134 [id number] [facility] 2021-01-17 09:00:00 2021-01-17 09:00:00 Outpatient R [facility] [id number] [facility] 2021-01-16 08:45:00 2021-01-16 08:45:00 Outpatient R ZARINA KENNEDY [facility] [id number] [facility] 2021-01-16 00:00:00 2021-01-16 00:00:00 Telephone Zarina Kennedy [facility] nal Building 1.2.840.114 350.1.13.10 4.2.7.2.686 [id number] 134 [id number] [facility] 2021-01-15 11:32:17 2021-01-15 11:47:17 Curtain Cutter Visit 2, Adc Lab [facility] 1.2.840.114 350.1.13.10 4.2.7.2.686 [id number] 353 [id number] [facility] 2021-01-15 10:17:01 2021-01-15 11:18:23 Initial Visit Zar[facility] 1.2.840.114 350.1.13.10 4.2.7.2.686 [id number] 134 [id number] [facility] 2021-01-15 10:00:00 2021-01-15 10:00:00 Outpatient R ZARINA KENNEDY [facility] [id number] [facility] 2021-01-15 00:00:00 2021-01-15 00:00:00 Telephone Zarina Kennedy [facility] nal Building 1.2.840.114 350.1.13.10 4.2.7.2.686 [id number] 134 [id number] [facility] 2021-01-15 00:00:00 2021-01-15 00:00:00 Orders Only Doctor Unassigned, [place] [facility] 1.0.114 350.1.13.10 4.2.7.2.686 [id number] 009 [id number] [facility] 2021-01-13 18:29:00 2021-01-13 22:52:00 Emergency Kary Lopez [facility] 1..114 350.1.13.10 4.2.7.2.686 [id number] 084 [id number] [facility] 2020-12-01 10:52:00 2020-12-01 12:00:00 Emergency Nusrat NELLA [facility] [id number] [facility] 2020-07-11 10:39:46 2020-07-11 11:22:54 Office Visit Norma Partida [facility] 1..114 350.1.13.10 4.2.7.2.686 [id number] 134 [id number] [facility] 2020-07-11 11:00:00 2020-07-11 11:00:00 Outpatient NORMA RODRIGUEZ [facility] [id number] [facility] 2020-07-11 00:00:00 2020-07-11 00:00:00 Orders Only Doctor Unassigned, [place] [facility] 1.2.114 350.1.13.10 4.2.7.2.686 [id number] 009 [id number] [facility] 2020-07-05 16:00:00 2020-07-05 16:00:00 Outpatient R NORMA PARTIDA [facility] [id number] [facility] 2020-06-21 15:22:00 2020-06-21 18:25:00 Emergency Viviana Orr [facility] 1..114 350.1.13.10 4.2.7.2.686 [id number] [id number] [facility] 2020-06-21 00:00:00 2020-06-21 00:00:00 Orders Only Doctor Unassigned, [place] [facility] 1.2840.114 350.1.13.10 4.2.7.2.686 [id number] 009 [id number] [facility] 2020-05-01 00:00:00 2020-05-01 00:00:00 Orders Only Doctor Unassigned, [place] [facility] 1.2840.114 350.1.13.10 4.2.7.2.686 [id number] [id number] [facility] 2020-02-28 11:00:00 2020-02-28 11:00:00 Outpatient R WENDY RIVERA [facility] [id number] [facility] 2020-02-28 08:13:41 2020-02-28 08:28:41 Telemedici ne Visit Wendy Rivera [facility] 1.2.840.114 350.1.13.10 4.2.7.2.686 [id number] 134 [id number] [facility] 2020-02-26 11:00:00 2020-02-26 11:00:00 Outpatient R UNKNOWN, ATTENDING [facility] [id number] [facility] 2020-02-21 00:00:00 2020-02-21 00:00:00 Telephone Wendy Rivera [facility] 1.2.840.114 350.1.13.10 4.2.7.2.686 [id number] 134 [id number] [facility] 2020-02-04 00:00:00 2020-02-04 00:00:00 Telephone Wendy Rivera [facility] 1.2.840.114 350.1.13.10 4.2.7.2.686 [id number] 134 [id number] [facility] 2020-02-02 00:00:00 2020-02-02 00:00:00 Refill Zarina Kennedy [facility] 1.2.840.114 350.1.13.10 4.2.7.2.686 [id number] [id number] [facility] 2020-01-30 23:20:00 2020-02-01 13:32:00 Hospital Encounter Zarina Kennedy [facility] 1.2.840.114 350.1.13.10 4.2.7.2.686 [id number] [facility] 2020-01-31 11:00:00 2020-01-31 11:00:00 Outpatient WENDY WALDROP [facility] [id number] [facility] 2020-01-30 00:00:00 2020-01-30 00:00:00 Orders Only Doctor Unassigned, [place] [facility] 1.2.840.114 350.1.13.10 4.2.7.2.686 [id number] [id number] [facility] 2020-01-28 00:00:00 2020-01-28 00:00:00 Telephone Zarina Kennedy [facility] Building 1.2.840.114 350.1.13.10 4.2.7.2.686 [id number] 134 [id number] [facility] 2020-01-24 14:38:36 2020-01-24 14:53:36 Curtain Cutter Visit 2, Adc Lab Zarina Kennedy [facility] nal Building 1.2.840.114 350.1.13.10 4.2.7.2.686 [id number] 353 [id number] [facility] 2020-01-24 13:22:06 2020-01-24 14:11:49 Routine Visit Zraina Kennedy [facility] nal Building 1.2.840.114 350.1.13.10 4.2.7.2.686 [id number] 134 [id number] [facility] 2020-01-24 13:15:00 2020-01-24 13:15:00 Outpatient R ZARINA KENNEDY [facility] [id number] [facility] 2020-01-24 00:00:00 2020-01-24 00:00:00 Orders Only Doctor Unassigned, [place] [facility] 1.2.840.114 350.1.13.10 4.2.7.2.686 [id number] [id number] [facility] 2020-01-23 03:41:00 2020-01-23 07:15:00 Hospital Encounter Marco A Nieto Vien [facility] 1.2.840.114 350.1.13.10 4.2.7.2.686 [id number] 083 [id number] [facility] 2020-01-21 21:41:00 2020-01-22 01:25:00 Hospital Encounter Marco A Nieto [facility] 1.2.840.114 350.1.13.10 4.2.7.2.686 [id number] 083 [id number] [facility] 2020-01-20 00:00:00 2020-01-20 00:00:00 Case Management Zarina Kennedy [facility] 1.2.840.114 350.1.13.10 4.2.7.2.686 [id number] 134 [id number] [facility] 2020-01-18 12:35:00 2020-01-18 15:00:00 Hospital Encounter Zarina Kennedy [facility] 1.2.840.114 350.1.13.10 4.2.7.2.686 [id number] 083 [id number] [facility] 2020-01-18 12:35:00 2020-01-18 12:35:00 Outpatient P ZARINA KENNEDY [facility] JONI [id number] [facility] 2020-01-10 13:56:38 2020-01-10 14:42:48 Routine Visit Wendy Rivera [facility] Building 1.2.840.114 350.1.13.10 4.2.7.2.686 [id number] 134 [id number] [facility] 2020-01-10 14:00:00 2020-01-10 14:00:00 [facility] [id number] [facility] 2020-01-06 11:15:00 2020-01-06 11:15:00 Outpatient R ZARINA KENNEDY [facility] [id number] [facility] 2020-01-06 00:00:00 2020-01-06 00:00:00 Nurse Triage Eda Santos [facility] 1.2.840.114 350.1.13.10 4.2.7.2.686 [id number] [id number] [facility] 2019-12-08 13:39:40 2019-12-08 14:27:14 Routine Visit Wendy Rivera [facility] 1.2.840.114 350.1.13.10 4.2.7.2.686 [id number] 134 [id number] [facility] 2019-11-01 12:45:26 2019-11-01 13:14:04 Office Visit Martha Cohn Joseph W [facility] DIRECTOR OF OUTSIDE [facility] 1.2.840.114 350.1.13.10 4.2.7.2.686 [id number] [facility] 2019-07-29 00:00:00 2019-07-29 00:00:00 Telephone Brent Zarina [facility] Building 1.2.840.114 350.1.13.10 4.2.7.2.686 [id number] 134 [id number] [facility] 2019-07-28 00:00:00 2019-07-28 00:00:00 Case Management Zarina Kennedy [facility] Building 1.2.840.114 350.1.13.10 4.2.7.2.686 [id number] 134 [id number] [facility] 2019-07-27 15:56:23 2019-07-27 16:11:23 Nurse Visit Nurse, [facility] Women[facility] Zarina Kennedy [facility] 1.2.840.114 350.1.13.10 4.2.7.2.686 [id number] 134 [id number] [facility] 2019-07-23 00:00:00 2019-07-23 00:00:00 Telephone [facility] 1.2.840.114 350.1.13.10 4.2.7.2.686 [id number] 134 [id number] [facility] 2019-07-21 13:20:15 2019-07-21 13:35:15 Curtain Cutter Visit 1, [facility] Lab Zarina Kennedy [facility] 1.2.840.114 350.1.13.10 4.2.7.2.686 [id number] 353 [id number] [facility] 2019-07-20 16:27:05 2019-07-20 17:06:12 Routine Visit [facility] 1.2.840.114 350.1.13.10 4.2.7.2.686 [id number] 134 [id number] [facility] 2019-07-15 00:00:00 2019-07-15 00:00:00 Telephone [facility] 1.2.840.114 350.1.13.10 4.2.7.2.686 [id number] 134 [id number] [facility] 2019-07-14 00:00:00 2019-07-14 00:00:00 Telephone Zarina Kennedy [facility] Building 1.2.840.114 350.1.13.10 4.2.7.2.686 [id number] 134 [id number] [facility] 2019-07-07 14:11:07 2019-07-07 16:17:14 Initial Visit Zarina Kennedy [facility] Building 1.2840.114 350.1.13.10 4.2.7.2.686 [id number] 134 [id number] [facility] 2019-07-07 00:00:00 2019-07-07 00:00:00 Orders Only Doctor Unassigned, [place] [facility] 1.0.114 350.1.13.10 4.2.7.2.686 [id number] 009 [id number] [facility] Results Test Description Test Time Test Comments Results Result Co mments Source [facility] with [id number] 10:52:48* Test Item Value Reference Range Interpretation Comme nts WBC (test code = 6690-2) 7.73 See_Comment [Automated messa ge] The system which generated this result transmitted reference range: 4.30 - 11.10 10*3/?L. The reference range was not used to interpret this result as normal/abnormal. RBC (test code = 789-8) 3.67 See_Comment L [Automated messa ge] The system which generated this result transmitted reference range: 3.93 - 5.25 10*6/?L. The reference range was not used to interpret this result as normal/abnormal. HGB (test code = 718-7) 10.6 g/dL 11.6-15.0 L HCT (test code = 4544-3) 31.7 % 35.7-45.2 L MCV (test code = 787-2) 86.4 fL 80.6-95.5 MCH (test code = 785-6) 28.9 pg 25.9-32.8 MCHC (test code = 786-4) 33.4 g/dL 31.6-35.1 RDW-SD (test code = 83455-4) 39.2 fL 39.0-49.9 RDW-CV (test code = 788-0) 12.2 % 12.0-15.5 PLT (test code = 777-3) 240 See_Comment [Automated messa ge] The system which generated this result transmitted reference range: 166 - 358 10*3/?L. The reference range was not used to interpret this result as normal/abnormal. MPV (test code = 42022-1) 9.5 fL 9.5-12.9 NRBC/100 WBC (test code = 1629968616) 0.0 See_Comment [Automated Bagel Nash ssage] The system which generated this result transmitted reference range: 0.0 - 10.0 /100 WBCs. The reference range was not used to interpret this result as normal/abnormal. NRBC x10^3 (test code = 2307893359) See_Comment [Automated messa ge] The system which generated this result transmitted reference range: 10*3/?L. The reference range was not used to interpret this result as normal/abnormal. GRAN MAT (NEUT) % (test code = 770-8) 53.1 % IMM GRAN % (test code = 1969323241) 0.30 % LYMPH % (test code = 736-9) 37.8 % MONO % (test code = 5905-5) 5.2 % EOS % (test code = 713-8) 3.2 % BASO % (test code = 706-2) 0.4 % GRAN MAT x10^3(ANC) (test code = 6828518669) 4.11 10*3/uL 1.88-7.09 IMM GRAN x10^3 (test code = 6191886574) 0.00-0.06 LYMPH x10^3 (test code = 731-0) 2.92 10*3/uL 1.32-3.29 MONO x10^3 (test code = 742-7) 0.40 10*3/uL 0.33-0.92 EOS x10^3 (test code = 711-2) 0.25 10*3/uL 0.03-0.39 BASO x10^3 (test code = 704-7) 0.03 10*3/uL 0.01-0.07 Lab Interpretation (test code = 84654-2) Abnormal [facility] METABOLIC PANEL (NA, K, CL, CO2, GLUCOSE, BUN, CREATININE, CA)2023-10-14 02:10:35* Test Item Value Reference Range Interpretation Comme nts NA (test code = 1482120191) 134 mmol/L 135-145 L K (test code = 8475663316) 3.4 mmol/L 3.5-5.0 L CL (test code = 5349297896) 111 mmol/L 98-108 H CO2 TOTAL (test code = 4107436439) 17 mmol/L 23-31 L AGAP (test code = 4389466669) 6 2-16 BUN (test code = 1400410379) 14 mg/dL 7-23 GLUCOSE (test code = 6369443209) 82 mg/dL 70-110 CREATININE (test code = 0681390953) 0.45 mg/dL 0.50-1.04 L CALCIUM (test code = 5219656697) 8.0 mg/dL 8.6-10.6 L eGFR (test code = 44532-8) 139.7 mL/min/1.73m2 CKD-EPI eGFR (2020). Assuming creatinine has been stable day-to-day for at least three months, the eGFR indicates Category G1 (>= 90 mL/min/1.73 m2) Lab Interpretation (test code = 29438-0) Abnormal [facility] WITH [id number] 01:49:54* Test Item Value Reference Range Interpretation Comme nts WBC (test code = 6690-2) 10.05 See_Comment [Automated Attendifya ge] The system which generated this result transmitted reference range: 4.30 - 11.10 10*3/?L. The reference range was not used to interpret this result as normal/abnormal. RBC (test code = 789-8) 3.78 See_Comment L [Automated messa ge] The system which generated this result transmitted reference range: 3.93 - 5.25 10*6/?L. The reference range was not used to interpret this result as normal/abnormal. HGB (test code = 718-7) 10.9 g/dL 11.6-15.0 L HCT (test code = 4544-3) 32.4 % 35.7-45.2 L MCV (test code = 787-2) 85.7 fL 80.6-95.5 MCH (test code = 785-6) 28.8 pg 25.9-32.8 MCHC (test code = 786-4) 33.6 g/dL 31.6-35.1 RDW-SD (test code = 99558-1) 39.0 fL 39.0-49.9 RDW-CV (test code = 788-0) 12.4 % 12.0-15.5 PLT (test code = 777-3) 251 See_Comment [Automated messa ge] The system which generated this result transmitted reference range: 166 - 358 10*3/?L. The reference range was not used to interpret this result as normal/abnormal. MPV (test code = 32000-8) 9.4 fL 9.5-12.9 L NRBC/100 WBC (test code = 4669673820) 0.0 See_Comment [Automated Bagel [place] ssage] The system which generated this result transmitted reference range: 0.0 - 10.0 /100 WBCs. The reference range was not used to interpret this result as normal/abnormal. NRBC x10^3 (test code = 4658974103) See_Comment [Automated messa ge] The system which generated this result transmitted reference range: 10*3/?L. The reference range was not used to interpret this result as normal/abnormal. GRAN MAT (NEUT) % (test code = 770-8) 62.2 % IMM GRAN % (test code = 6401112326) 0.30 % LYMPH % (test code = 736-9) 28.4 % MONO % (test code = 5905-5) 6.7 % EOS % (test code = 713-8) 2.1 % BASO % (test code = 706-2) 0.3 % GRAN MAT x10^3(ANC) (test code = 7182920665) 6.26 10*3/uL 1.88-7.09 IMM GRAN x10^3 (test code = 2055914033) 0.03 10*3/uL 0.00-0.06 LYMPH x10^3 (test code = 731-0) 2.85 10*3/uL 1.32-3.29 MONO x10^3 (test code = 742-7) 0.67 10*3/uL 0.33-0.92 EOS x10^3 (test code = 711-2) 0.21 10*3/uL 0.03-0.39 BASO x10^3 (test code = 704-7) 0.03 10*3/uL 0.01-0.07 Lab Interpretation (test code = 79242-3) Abnormal [facility]. METABOLIC PANEL (97751)2023 04:40:07* Test Item Value Reference Range Interpretation Comme nts NA (test code = 1769432867) 142 mmol/L 135-145 K (test code = 3749755609) 3.6 mmol/L 3.5-5.0 CL (test code = 6318865776) 109 mmol/L 98-108 H CO2 TOTAL (test code = 0345905383) 21 mmol/L 23-31 L AGAP (test code = 8155893646) 12 2-16 BUN (test code = 5436405216) 11 mg/dL 7-23 GLUCOSE (test code = 9923422575) 106 mg/dL 70-110 CREATININE (test code = 5774815761) 0.62 mg/dL 0.50-1.04 TOTAL BILI (test code = 2692295005) 0.2 mg/dL 0.1-1.1 CALCIUM (test code = 9871109870) 9.4 mg/dL 8.6-10.6 T PROTEIN (test code = 9245982990) 7.4 g/dL 6.3-8.2 ALBUMIN (test code = 0287638232) 4.5 g/dL 3.5-5.0 ALK PHOS (test code = 0898011355) 79 U/L 34-122 ALTv (test code = 1742-6) 32 U/L 5-35 AST(SGOT) (test code = 5177284464) 28 U/L 13-40 eGFR (test code = 46056-2) 130.1 mL/min/1.73m2 CKD-EPI eGFR (2020). Assuming creatinine has been stable day-to-day for at least three months, the eGFR indicates Category G1 (>= 90 mL/min/1.73 m2) Lab Interpretation (test code = 05723-2) Abnormal [facility] WITH [id number] 04:29:09* Test Item Value Reference Range Interpretation Comme nts WBC (test code = 6690-2) 7.15 See_Comment [Automated messa ge] The system which generated this result transmitted reference range: 4.30 - 11.10 10*3/?L. The reference range was not used to interpret this result as normal/abnormal. RBC (test code = 789-8) 4.45 See_Comment [Automated Attendifya ge] The system which generated this result transmitted reference range: 3.93 - 5.25 10*6/?L. The reference range was not used to interpret this result as normal/abnormal. HGB (test code = 718-7) 13.1 g/dL 11.6-15.0 HCT (test code = 4544-3) 39.2 % 35.7-45.2 MCV (test code = 787-2) 88.1 fL 80.6-95.5 MCH (test code = 785-6) 29.4 pg 25.9-32.8 MCHC (test code = 786-4) 33.4 g/dL 31.6-35.1 RDW-SD (test code = 74214-6) 40.4 fL 39.0-49.9 RDW-CV (test code = 788-0) 12.6 % 12.0-15.5 PLT (test code = 777-3) 269 See_Comment [Automated Attendifya ge] The system which generated this result transmitted reference range: 166 - 358 10*3/?L. The reference range was not used to interpret this result as normal/abnormal. MPV (test code = 99337-6) 9.6 fL 9.5-12.9 NRBC/100 WBC (test code = 7870529207) 0.0 See_Comment [Automated me ssage] The system which generated this result transmitted reference range: 0.0 - 10.0 /100 WBCs. The reference range was not used to interpret this result as normal/abnormal. NRBC x10^3 (test code = 6123036294) See_Comment [Automated me ssage] The system which generated this result transmitted reference range: 10*3/?L. The reference range was not used to interpret this result as normal/abnormal. GRAN MAT (NEUT) % (test code = 770-8) 69.3 % IMM GRAN % (test code = 6579748137) 0.10 % LYMPH % (test code = 736-9) 22.2 % MONO % (test code = 5905-5) 7.0 % EOS % (test code = 713-8) 1.1 % BASO % (test code = 706-2) 0.3 % GRAN MAT x10^3(ANC) (test code = 4573235455) 4.95 10*3/uL 1.88-7.09 IMM GRAN x10^3 (test code = 6382608931) 0.00-0.06 LYMPH x10^3 (test code = 731-0) 1.59 10*3/uL 1.32-3.29 MONO x10^3 (test code = 742-7) 0.50 10*3/uL 0.33-0.92 EOS x10^3 (test code = 711-2) 0.08 10*3/uL 0.03-0.39 BASO x10^3 (test code = 704-7) 0.01-0.07 [id number]* Test Item Value Reference Range Interpretation Comme nts POCT PREG (test code = 1605) Negative On board controls acceptable with C Line (test code = 3574) Yes POCT PREG LOT # (test code = 3575) [id number] POCT PREG TEST DATE ( test code = 3576) 11/12/2024 Lab Interpretation (test cod e = 61777-3) Normal [facility], THIRD [id number] 06:03:21* Test Item Value Reference Range Interpretation Comme nts TSH, THIRD GENERATION (test code = 2821) 1.000 UIU/ML 0.400-4.100 UNLESS OTHERWISE INDICATED, ALL TESTING PERFORMED AT [facility] [address] [place] [id number] [employer]: DOMITILA YOUNG M.D. CLIA NUMBER [id number] [place]. [id number] LIPID [id number] 06:02:54* Test Item Value Reference Range Interpretation Comme nts CHOLESTEROL (test code = 2210) 185 MG/DL <200 TRIGLYCERIDES (test code = 2231) 50 MG/DL <150 HDL CHOLESTEROL (test code = 0) 48 MG/DL >39 CALC LDL CHOL (test code = 2236) 123 MG/DL <100 H NOTE: CALCULATED LDL IS BASED ON LYNETTE-HARTMANN METHOD WHICHINCLUDES ADJUSTABLE TRIGLYCERIDE:VLDL CHOLESTEROL RATIO.THIS FACTOR VARIES BY MEASURED TRIGLYCERIDE AND NON-HDLCHOLESTEROL CONCENTRATIONS WITH INCREASED CALCULATED LDL SEENIN HIGHER TRIGLYCERIDE OR LOWER NON-HDL SPECIMENS. FOR MOREINFORMATION, SEE CLIENT ANNOUNCEMENT AT [email or web address] RISK RATIO LDL/HDL (test code = 2237) 2.56 RATIO <3.22 COMPREHENSIVE METABOLIC [id number] 06:02:54* Test Item Value Reference Range Interpretation Comme nts GLUCOSE (test code = 2216) 84 MG/DL 70-99 BUN (test code = 2207) 9 MG/DL 6-20 CREATININE (test code = 2213) 0.67 MG/DL 0.60-1.30 eGFR (2020 CKD-EPI) (test code = 83654) 127 ML/MIN/1.73 >60 CALC BUN/CREAT (test code = 2234) 13 RATIO 6-28 SODIUM (test code = 2230) 140 MEQ/L 133-146 POTASSIUM (test code = 2227) 4.1 MEQ/L 3.5-5.4 CHLORIDE (test code = 2214) 105 MEQ/L 95-107 CARBON DIOXIDE (test code = 2205) 21 MEQ/L 19-31 CALCIUM (test code = 2208) 10.1 MG/DL 8.5-10.5 PROTEIN, TOTAL (test code = 2228) 7.5 G/DL 6.1-8.3 ALBUMIN (test code = 2200) 4.9 G/DL 3.5-5.2 CALC GLOBULIN (test code = 2240) 2.6 G/DL 1.9-3.7 CALC A/G RATIO (test code = 2233) 1.9 RATIO 1.0-2.6 BILIRUBIN, TOTAL (test code = 2206) 0.3 MG/DL <=1.2 ALKALINE PHOSPHATASE (test code = 2203) 88 U/L 39-117 AST (test code = 2217) 22 U/L 9-40 ALT (test code = 2219) 30 U/L 5-40 CBC W/AUTO DIFF WITH [id number] 04:02:12* Test Item Value Reference Range Interpretation Comme nts WBC (test code = 1001) 8.6 K/UL 3.5-11.0 RBC (test code = 1002) 4.77 M/UL 3.80-5.40 HEMOGLOBIN (test code = 1003) 13.8 G/DL 11.5-15.5 HEMATOCRIT (test code = 1004) 41.0 % 34.0-45.0 MCV (test code = 1005) 86.0 fL 80.0-99.0 MCH (test code = 1006) 28.9 PG 25.0-33.0 MCHC (test code = 1007) 33.7 G/DL 31.0-36.0 RDW (test code = 1038) 13.1 % 11.5-15.0 NEUTROPHILS (test code = 1008) 58.6 % LYMPHOCYTES (test code = 1010) 34.0 % MONOCYTES (test code = 1011) 5.5 % EOSINOPHILS (test code = 1012) 1.2 % BASOPHILS (test code = 1013) 0.5 % IMMATURE GRANULOCYTES (test code = 1036) 0.2 % NUCLEATED RBCS (test code = 1065) 0.0 /100 WBC'S See_Comment [Automated messa ge] The system which generated this result transmitted reference range: 0.0. The reference range was not used to interpret this result as normal/abnormal. PLATELET COUNT (test code = 1015) 334 K/UL 130-400 ABSOLUTE NEUTROPHILS (test code = 1066) 5.03 K/UL 1.50-7.50 ABSOLUTE LYMPHOCYTES (test code = 1067) 2.91 K/UL 1.00-4.00 ABSOLUTE MONOCYTES (test code = 1068) 0.47 K/UL 0.20-1.00 ABSOLUTE EOSINOPHILS (test code = 1040) 0.10 K/UL 0.00-0.50 ABSOLUTE BASOPHILS (test code = 1069) 0.04 K/UL 0.00-0.20 ABS IMMATURE GRANULOCYTES (test code = 1020) 0.02 K/UL 0.00-0.10 ABS NUCLEATED RBCS (test code = 77065) 0.00 K/UL 0.00-0.11 HEMOGLOBIN [id number] 03:49:49* Test Item Value Reference Range Interpretation Comme nts HEMOGLOBIN A1c (test code = 62724) 5.3 % 4.2-5.6 Notes Date/Time Note Provider Source 2023-11-13 13:45:00 5u4VORc6bxoUkPTRF7j+ O9cL3NO/TznuSJPrCtYKac S1U7b43AvNYLOEB4tJCjEq3185-95-41K22:45:00F ormatting of this note is different from the original.Images from the original note were not included.Venipuncture collection performed by clean technique on the left anticubitus. Total of 1 attempts were made. Slight pressure and a bandage/dressing were applied to the site(s). The patient experienced no complications. The following specimens were processed according to instructions and sent to [facility] laboratories per lab order on 11/13/2023:LT BLUESST 3RED 1LAVPPTDK GREEN (LiHep)DK GREEN (SodH)GRAYDK BLUE (K2)DK BLUE (S)ACDBlood CultureNIPT/NTD 34624-2Bhroh ApzcPO6284-13-50S69:36:03Nurse NoteTXT1.2.840.804689.1.13.104.2.7.2.73231 9|[id number] for patient mtzm78901-8Lzxcd NoteLNNARRATIVEFormatted C-CDA narrative text[address] Cz[id number] HAUBCGNGKLABJUMU9140-03-62M06:36:031.2.840 .617795.1.72.3.15|1.2.840.093931.1.13.104. 2.7.2.727879_[id number] [facility] 2023-11-13 13:15:00 iLaT7GPCD8mEFW6T+erU oiMRx+MyT5oUgvBZ3HaCG0 USpwqUtKo0CaDN1IC1GLqr0015-43-81T87:15:00A ddended by: FIORDALIZA TATUM RN on: 11/13/2023 01:45 PMModules accepted: Orders [id number] HtoajqypVH3567-97-69M81:45:27Addendum DocumentTXT1.2.840.214022.1.13.104.2.7.2.7 70906|[id number] for patient odwb34233-6OrhgOMXSPVSMGPFKvtflivga C-CDA narrative text[address] Mk[id number] FQOYQRSRKYIGKTPK4846-89-49C05:45:271.2.840 .573873.1.72.3.15|1.2.840.917580.1.13.104. 2.7.2.727879_[id number] [facility]"
--- NOTE | 2024-01-02 08:08 | ER ---
Nurse's Notes [facility] Name: Devi Calvert Age: 23 yrs Sex: Female : 2000 Arrival Date: 01/02/2024 Time: 07:40 Bed 15 Private MD: Jovanna Harman Diagnosis: Acute tonsillitis, unspecified Presentation: 01/02 07:57 Chief complaint: Patient states: Sore throat, fever, cough, fatigue for 3 days. ll1 Coronavirus screen: Client denies travel out of the [place] in the last 14 days. cough unrelated to allergies, sore throat, Client presents with at least one sign or symptom that may indicate coronavirus-19. Standard/surgical mask placed on the client. Ebola Screen: Patient denies travel to an Ebola-affected area in the 21 days before illness onset. Initial Sepsis Screen: Does the patient meet any 2 criteria? No. Patient's initial sepsis screen is negative. Does the patient have a suspected source of infection? Yes: Other: sore throat. Risk Assessment: Do you want to hurt yourself or someone else? Patient reports no desire to harm self or others. Onset of symptoms was December 31, 2023. 07:57 Method Of Arrival: Ambulatory ll1 07:57 Acuity: CHANTAL 5 ll1 FOUNDRY TENDER: 08:08 LMP N/A - control method, Not ll1 Historical: - Allergies: 08:04 No Known Allergies; ll1 - PMHx: 08:04 Anxiety; Asthma; Depression; IPH; Migraines; previous suicide attempt; Schizophrenia; ll1 vocal chords problem; - PSHx: 08:04 Cholecystectomy; ll1 - Immunization history:: Adult Immunizations up to date. - Social history:: Smoking status: Patient reports the use of cigarette tobacco products, smokes .2 packs per day. Screenin:07 [facility] ED Fall Risk Assessment (Adult) Score/Fall Risk Level 0 - 2 = Low Risk ll1 Oriented to surroundings, Maintained a safe environment, Educated pt \T\ family on fall prevention, incl call for assistance when getting out of bed, Hourly rounding (assess needs \T\ fall precautionary measures) done. Abuse screen: Denies threats or abuse. Nutritional screening: No deficits noted. Tuberculosis screening: No symptoms or risk factors identified. Assessment: 07:55 General: Appears uncomfortable, Behavior is calm, cooperative, appropriate for age, ll1 Reports fever for feeling ill for fatigue for. Pain: Complains of pain in throat Pain currently is 7 out of 10 on a pain scale. Quality of pain is described as aching. Respiratory: Reports cough that is dry, Airway is patent Respiratory effort is even, unlabored, Breath sounds are clear bilaterally. EENT: Throat is reddened has enlarged tonsils Reports pain when swallowing. Vital Signs: 07:57 BP 115 / 81; Pulse 97; Resp 16; Temp 98.1; Pulse Ox 98% ; Weight 57.61 kg; Height 5 ft. ll1 2 in. ; Pain 7/10; 07:57 Body Mass Index 23.23 (57.61 kg, 157.48 cm) ll1 07:57 Pain Scale: Adult ll1 ED Course: 07:42 Patient arrived in ED. mr 07:42 Jovanna Harman is Private Physician. mr 07:44 Raffaele Simpson MD is Attending Physician. rt 07:53 Arm band placed on Patient placed in an exam room, on a stretcher. 1 08:05 Triage completed. ll1 08:07 No provider procedures requiring assistance completed. Patient did not have IV access ll1 during this emergency room visit. 08:08 Patient has correct armband on for positive identification. Bed in low position. ll1 Provided Education on: finish all prescribed antibiotics. Administered Medications: 08:03 Drug: Amoxicillin PO 875 mg PO once Route: PO; 1 08:07 Follow up: Response: No adverse reaction 1 Medication: 08:08 VIS not applicable for this client. 1 Outcome: 07:52 Discharge ordered by . rt 08:07 Discharged to home ambulatory, 1 08:07 Condition: stable 08:07 Discharge instructions given to patient, Instructed on discharge instructions, follow up and referral plans. medication usage, Demonstrated understanding of instructions, follow-up care, medications, Prescriptions given X 1, 08:08 Patient left the ED. 1 Signatures: Daiana Rebolledo, Reg Reg Dank Mejía, RN RN 1 Raffaele Simpson MD MD rt
[2024-01-02 08:20] VITALS: BP 115/81; TEMP 98.1; O2SAT 98
== END ==
LOC: ER 07:40
DX: J03.90 Acute tonsillitis, unspecified (principal); F17.210 Nicotine dependence, cigarettes, uncomplicated

== ENCOUNTER → 2024-01-03 | Emergency (ER) | payer BC ==
[~2024-01-03] MED LIST changes: +ALBUTEROL 2.5 MG/3 ML NEB SOL ONE; -AMOX/K CLAV 875 MG TAB ONE; +IPRATROPIUM BROM 0.5MG/2.5ML ONE; +METHYLPREDNISOLONE 125 MG INJ ONE
--- OUTSIDE RECORDS SUMMARY | 2024-01-03 19:18 | XMS REPORT | Continuity of Care Document ---
Author Name Unknown Address [address] [facility] [address] [place] [address] [facility] thconnect Address [address] [address] [place] [address] Care Team Providers Care Sole Cementer Name Role Phone DANY MIRANDA Primary Care Physician UnavailZARINA Murphy Attending Clinician Unavailable 2, [facility] Attending Clinician Unavailable Zarina Kennedy MD Attending Clinician [phone] Doctor Unassigned, [place] Attending Clinician U navailable MARCO A LARSON Attending Clinician Unavailab annamaria Alejandra MD, Mallorie Attending Clinician [phone] Omer Burris MD, Lashell Attending Clinician + [phone] Hipolito ABRAHAM, Marco A Attending Clinician [phone] MALLORIE ALEJANDRA Attending Clinician Unavailable AILIN TANG Attending Clinician Unavailabl nusrat WONG, Ailin Attending Clinician [phone] CHANDANA SOTELO Attending Clinician Unavailable CHANDANA SOTELO Attending Clinician Unavailable Jackie Griffin MD, Iris Attending Clinician [phone] Nurse, [facility] Attending Clinician Un available BRIT LAUREN Attending Clinician Unavailabl IDA Celis Attending Clinician Unavailable Norma Partida MD Attending Clinician [phone] NORMA PARTIDA Attending Clinician Unavailable HINA SANON Attending Clinician HINA Ambrose Attending Clinician WENDY Elam Attending Clinician Unavailable Wendy Rivera PA-C Attending Clinician [phone] GUTIERREZ BRAVO Attending Clinician Unavailable Gutierrez Bravo MD Attending Clinician [phone] [facility] Attending Clinician Unavailable [facility] Attending Clin ician [place], Nephrology Attending Clinician Unavaila STAN [place] Attending Clinician Unavail able STAN TY Attending Clinician Unavail able Pedro MILLER Attending Clinician Unavailable Pedro Fairchild Attending Clinician [phone] Jordan Gaspar CRNA Attending Clinician [phone] Jesus Martinez MD, Brando Attending Clinician + [phone] Only, [facility] Test Attending Clinician Unavailable Kary Oseguera MD Attending Clinician [phone] Shaina RN, Lashay Castellon Attending Clinician Unavailable Ultrasound, [facility] Attending Clinician Unavaila beata Aguillon MD, Powell Attending Clinician + Matt ABRAHAM, Kian R Attending Clinician [phone] Jim ABRAHAM, Mihai Attending Clinician [phone] Unknown, Attending Attending Clinician Unavailab le UNKNOWN, ATTENDING Attending Clinician Unavailab Kary Harkins R Attending Clinician [phone] DR GERMAN CARMEN Attending Clinician Unavailluis Orr NP, Viviana Shine Attending Clinician [phone] Marco A Nieto MD Attending Clinician + [phone] Eda Santos RN Attending Clinician Unavailable Martha Cohn Attending Clinician Unavail sammie Sarah MD, Jonny Marquez Attending Clinician [phone] 1, [facility] Attending Clinician Unavailable ZARINA KENNEDY Admitting Clinician Unavailable MARCO A NIETO Admitting Clinician Unavaila LASHELL Gavin Admitting Clinician Graham Burris MD, Lashell Admitting Clinician + [phone] MALLORIE ALEJANDRA Admitting Clinician Unavailable Justyn ABRAHAM, Mallorie Admitting Clinician [phone] IRIS KEYES Admitting Clinician Unavailab WENDY Short Admitting Clinician Unavailable Brent ABRAHAM, Zarina Velazquez Admitting Clinician [phone] Norma Partida MD Admitting Clinician [phone] NORMA PARTIDA Admitting Clinician Unavailable Kary Oseguera MD Admitting Clinician [phone] GERMAN CARMEN Admitting Clinician Unavailluis Nieto MD, Marco A Admitting Clinician + [phone] Payers Payer Name Policy Type Policy Number Effective Date Expirati on Date Source [facility] [id number] 2020 00:00:00 [facility] [id number] 2019 00:00:00 Problems Condition Name Condition Details Condition Category Status Onset Date Resolution Date Last Treatment Date Treating Clinician Comments Source Decreased libido Decreased libido Disease Active 11-13 00:00: 00 [facility] Hydronephr osis Hydronephr osis Disease Active 2022-11 2-04 00:00: 00 [facility] Calculus of kidney Calculus of kidney Disease Active 2022-11 00:00: 00 [facility] Hydronephr osis with urinary obstructio n due to renal calculus Hydronephr osis with urinary obstructio n due to renal calculus Disease Active 2022-11 00:00: 00 [facility] Flank pain Flank pain Disease Active 2022-11 00:00: 00 [facility] Allergic rhinitis Allergic rhinitis Disease Active 03-15 00:00: 00 [facility] Nausea Nausea Disease Active 03-15 00:00: 00 [facility] Generalize d anxiety disorder Generalize d anxiety disorder Disease Active 2018-11 0 00:00: 00 [facility] Major depressive disorder Major depressive disorder Disease Active 2018-1114 00:00: 00 [facility] History of self-harm History of self-harm Disease Active 2018-11 014 00:00: 00 [facility] Bipolar 1 disorder Bipolar 1 disorder Disease Active 07-09 00:00: 00 [facility] Asthma Asthma Disease Active 2 00:00: 00 [facility] Depressive disorder Depressive disorder Disease Active 12-10 00:00: 00 [facility] 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 Formattin g of this note might be different from the original. ONE episode. Normal lung biopsy. Treated with solumedro l monthly (3 days) x 5 months. Initially on plaquenil , stopped after 6-8 months. She's being observed off meds. [facility] Allergies, Adverse Reactions, Alerts Allergy Name Allergy Type Status Severity Reaction(s) Onset Date Inactive Date Treating Clinician Comments Source No Known Drug Allergie s DA Active [facility] NO KNOWN ALLERGIE S Drug Class Active [facility] Social History Social Habit Start Date Stop Date Quantity Comments Source Gender identity [facility] Sexual orientation U [facility] Alcohol intake 2023-11-13 00:00:00 2023-11-13 00:00:00 Current drinker of alcohol (finding) [facility] Alcohol Comment 2023-11-13 00:00:00 2023-11-13 00:00:00 occassionally [facility] History of Social function 2023-10-10 00:00:00 2023-10-10 00:00:00 [facility] Cigarettes smoked current (pack per day) - Reported 2023-10-09 00:00:00 2023-10-09 00:00:00 [facility] Tobacco use and exposure 2023-10-09 00:00:00 2023-10-09 00:00:00 Smokeless tobacco non-user [facility] Tobacco Comment 2023-10-09 00:00:00 2023-10-09 00:00:00 1/2 PPD, and vaps [facility] Exposure to SARS-CoV-2 (event) 2023-02-08 00:00:00 2023-02-18 14:56:00 Not sure [facility] History of tobacco use 2019-07-05 00:00:00 Cigarette Smoker [facility] Sex Assigned At 2001 00:00:00 2000 00:00:00 [facility] Smoking Status Start Date Stop Date Source Smokes tobacco daily 2023-10-09 00:00:00 [facility] Ex-smoker 2022-06-03 00:00:00 2022-06-03 00:00:00 U [facility] Medications Ordered Medication Name Filled Medication Name Start Date Stop Date Current Medication? Ordering Clinician Indication Dosage Frequency Signature (SIG) Comments Components Source medroxyPROG ESTERone (DEPO-PROVE RA) syringe 150 mg 11-13 20:15: 00 11-13 19:30 :00 No [id number] 150[facility] medroxyPROG ESTERone (DEPO-PROVE RA) syringe 150 mg 11-13 20:15: 00 11-13 19:30 :00 No [id number] 150mg 150 mg, Intramuscu lar, ONCE, 1 dose, On [place] 11/13/23 at 1415, Routine [facility] it[facility] medroxyPROG ESTERone (DEPO-PROVE RA) syringe 150 mg 11-13 20:15: 00 11-13 19:30 :00 No [id number] 150mg [facility] medroxyPROG ESTERone (DEPO-PROVE RA) syringe 150 mg 11-13 20:15: 00 11-13 19:30 :00 No [id number] 150mg 150 mg, Intramuscu lar, ONCE, 1 dose, On [place] 11/13/23 at 1415, [facility]ine [facility] medroxyPROG ESTERone (DEPO-PROVE RA) syringe 150 mg 11-13 20:15: 00 11-13 19:30 :00 No [id number] 150mg [facility] medroxyPROG ESTERone (DEPO-PROVE RA) syringe 150 mg 11-13 20:15: 00 11-13 19:30 :00 No [id number] 150mg 150 mg, Intramuscu lar, ONCE, 1 dose, On [place] 11/13/23 at 1415, Routine [facility] ALBUTEROL SULFATE HFA INHALE 11-13 12:59: 22 Yes Inhale. [facility] ALBUTEROL SULFATE HFA INHALE 11-13 12:59: 22 Yes Inhale. [facility] ALBUTEROL SULFATE HFA INHALE 11-13 12:59: 22 Yes Inhale. [facility] ALBUTEROL SULFATE HFA INHALE 11-13 12:59: 22 Yes Inhale. [facility] ALBUTEROL SULFATE HFA INHALE 11-13 12:59: 22 Yes Inhale. [facility] FLU[facility] 40 mg capsule 11-13 12:58: 49 Yes 40mg Take 1 capsule by mouth every morning. [facility] ubrogepant (UBRELVY) 100 mg Tab 11-13 12:58: 49 Yes Ubrelvy 100 mg tablet Take 1 tablet by oral route as needed. [facility] acetaminoph en-codeine 300-30 mg tablet 11-13 12:58: 49 Yes TAKE 1 TABLET BY MOUTH EVERY 8 HOURS NEEDED FOR ACUTE PAIN [facility] ibuprofen 600 mg tablet 11-13 12:58: 49 Yes TAKE 1 TABLET BY MOUTH TWICE A DAY NEEDED [facility] diclofenac 75 mg EC tablet 11-13 12:58: 49 Yes [facility] cyclobenzap rine 5 mg tablet 11-13 12:58: 49 Yes 5mg Take 1 tablet by mouth 2 (two) times daily as needed. [facility] cetirizine 10 mg tablet 11-13 12:58: 49 Yes 10mg Take 1 tablet by mouth in the morning. [facility] FLUoxetine 40 mg capsule 11-13 12:58: 49 Yes 40mg Take 1 capsule by mouth every morning. [facility] ubrogepant (UBRELVY) 100 mg Tab 11-13 12:58: 49 Yes Ubrelvy 100 mg tablet Take 1 tablet by oral route as needed. [facility] acetaminoph en-codeine 300-30 mg tablet 11-13 12:58: 49 Yes TAKE 1 TABLET BY MOUTH EVERY 8 HOURS NEEDED FOR ACUTE PAIN [facility] ibuprofen 600 mg tablet 11-13 12:58: 49 Yes TAKE 1 TABLET BY MOUTH TWICE A DAY NEEDED [facility] diclofenac 75 mg EC tablet 11-13 12:58: 49 Yes [facility] cyclobenzap rine 5 mg tablet 11-13 12:58: 49 Yes 5mg Take 1 tablet by mouth 2 (two) times daily as needed. [facility] cetirizine 10 mg tablet 11-13 12:58: 49 Yes 10mg Take 1 tablet by mouth in the morning. [facility] FLUoxetine 40 mg capsule 11-13 12:58: 49 Yes 40mg Take 1 capsule by mouth every morning. [facility] ubrogepant (UBRELVY) 100 mg Tab 11-13 12:58: 49 Yes Ubrelvy 100 mg tablet Take 1 tablet by oral route as needed. [facility] acetaminoph en-codeine 300-30 mg tablet 11-13 12:58: 49 Yes TAKE 1 TABLET BY MOUTH EVERY 8 HOURS NEEDED FOR ACUTE PAIN [facility] ibuprofen 600 mg tablet 11-13 12:58: 49 Yes TAKE 1 TABLET BY MOUTH TWICE A DAY NEEDED [facility] diclofenac 75 mg EC tablet 11-13 12:58: 49 Yes [facility] cyclobenzap rine 5 mg tablet 11-13 12:58: 49 Yes 5mg Take 1 tablet by mouth 2 (two) times daily as needed. [facility] cetirizine 10 mg tablet 11-13 12:58: 49 Yes 10mg Take 1 tablet by mouth in the morning. [facility] FLUoxetine 40 mg capsule 11-13 12:58: 49 Yes 40mg Take 1 capsule by mouth every morning. [facility] ubrogepant (UBRELVY) 100 mg Tab 11-13 12:58: 49 Yes Ubrelvy 100 mg tablet Take 1 tablet by oral route as needed. [facility] acetaminoph en-codeine 300-30 mg tablet 11-13 12:58: 49 Yes TAKE 1 TABLET BY MOUTH EVERY 8 HOURS NEEDED FOR ACUTE PAIN [facility] ibuprofen 600 mg tablet 11-13 12:58: 49 Yes TAKE 1 TABLET BY MOUTH TWICE A DAY NEEDED [facility] diclofenac 75 mg EC tablet 11-13 12:58: 49 Yes [facility] cyclobenzap rine 5 mg tablet 11-13 12:58: 49 Yes 5mg Take 1 tablet by mouth 2 (two) times daily as needed. [facility] cetirizine 10 mg tablet 11-13 12:58: 49 Yes 10mg Take 1 tablet by mouth in the morning. [facility] FLUoxetine 40 mg capsule 11-13 12:58: 49 Yes 40mg Take 1 capsule by mouth every morning. [facility] ubrogepant (UBRELVY) 100 mg Tab 11-13 12:58: 49 Yes Ubrelvy 100 mg tablet Take 1 tablet by oral route as needed. [facility] acetaminoph en-codeine 300-30 mg tablet 11-13 12:58: 49 Yes TAKE 1 TABLET BY MOUTH EVERY 8 HOURS NEEDED FOR ACUTE PAIN [facility] ibuprofen 600 mg tablet 11-13 12:58: 49 Yes TAKE 1 TABLET BY MOUTH TWICE A DAY NEEDED [facility] diclofenac 75 mg EC tablet 11-13 12:58: 49 Yes [facility] cyclobenzap rine 5 mg tablet 11-13 12:58: 49 Yes 5mg Take 1 tablet by mouth 2 (two) times daily as needed. [facility] cetirizine 10 mg tablet 11-13 12:58: 49 Yes 10mg Take 1 tablet by mouth in the morning. [facility] acetaminoph en (TYLENOL) tablet 650 mg 2022-11 19:30: 00 Yes 650mg 650 mg, Oral, Q6H ABX, First dose (after last modificati on) on Fri10/14/23 at 1330, Until Discontinu ed, Routine [facility] methocarbam oL (ROBAXIN) tablet 500 mg 2022-11 18:30: 00 Yes 500mg 500 mg, Oral, QID, First dose on Fri10/14/23 at 1230, Until Discontinu ed, Routine [facility] ketorolac (TORADOL) injection 15 mg 2022-11 18:22: 51 10-18 18:21 :51 Yes 15mg 15 mg, Slow IV Push, Q6HPRN, Starting on Fri10/14/23 at 1222, Until Fri10/18/23 at 1221, Routine, Pain (scale 4-6) [facility] HYDROcodone -acetaminop hen (NORCO 5) 5-325 mg tablet 1 tablet 2022-11 18:20: 10 10-16 02:45 :23 Yes 1{tbl} 1 tablet, Oral, Q6HPRN, Starting on Fri10/14/23 at 1220, Until Fri10/15/23 at 204, Routine, Pain (scale 7-10) [facility] FLUoxetine (PROZAC) capsule 40 mg 2022-11 15:00: 00 Yes 40mg 40 mg, Oral, DAILY, First dose on Fri10/14/23 at 0900, Until Discontinu ed, Routine [facility] tamsulosin (FLOMAX) capsule 0.4 mg 2022-11 15:00: 00 Yes .4mg 0.4 mg, Oral, DAILY, First dose on Fri10/14/23 at 0900, Until Discontinu ed, Routine [facility] sennosides- docusate sodium (SENOKOT-S) 8.6-50 mg per tablet 1 tablet 2022-11 15:00: 00 Yes 1{tbl} 1 tablet, Oral, DAILY, First dose on Fri10/14/23 at 0900, Until Discontinu ed, Routine [facility] FLUoxetine 40 mg capsule 2022-11 14:44: 43 Yes 40mg Take 1 capsule by mouth every morning. [facility] ubrogepant (UBRELVY) 100 mg Tab 2022-11 14:44: 43 Yes Ubrelvy 100 mg tablet Take 1 tablet by oral route as needed. [facility] FLUoxetine 40 mg capsule 2022-11 14:44: 43 Yes 40mg Take 1 capsule by mouth every morning. [facility] ubrogepant (UBRELVY) 100 mg Tab 2022-11 14:44: 43 Yes Ubrelvy 100 mg tablet Take 1 tablet by oral route as needed. [facility] QUEtiapine (SEROQUEL) tablet 50 mg 2022-11 07:30: 00 Yes 50mg 50 mg, Oral, QHS, First dose on Fri10/14/23 at 0130, Until Discontinu ed, Routine [facility] albuterol (VENTOLIN) inhaler 2 Puff 2022-11 07:20: 25 Yes 2{puff} 2 Puff, Inhalation , Q4HPRN, Starting on Fri10/14/23 at 0120, Until Discontinu ed, Routine, Wheezing, Shortness of Breath [facility] cefTRIAXone (ROCEPHIN) 1,000 mg in NaCl [...] Urine
D uration of therapy: 5 days [facility] NaCl 0.9% (NS) IV infusion 1,000 mL 2022-11 03:00: 00 Yes 1000mL at 125 mL/hr, IV Infusion, CONTINUOUS , Starting on Fri10/13/23 at 2100, Until Discontinu ed, Routine [facility] HYDROcodone -acetaminop hen (NORCO 5) 5-325 mg tablet 1 tablet 2022-11 02:46: 23 10-14 18:20 :18 No 1{tbl} 1 tablet, Oral, Q6HPRN, Starting on Fri10/13/23 at 2046, Until Fri10/14/23 at 1220, Routine, Pain (scale 4-6) [facility] ondansetron (ZOFRAN (PF)) injection 4 mg 2022-11 02:44: 32 Yes 4mg 4 mg, Slow IV Push, Q6HPRN, Starting on Fri10/13/23 at 2044, Until Discontinu ed, Routine, Nausea and Vomiting (N/V) [facility] ketorolac (TORADOL) injection 15 mg 2022-11 02:26: 58 10-14 18:20 :08 No 15mg 15 mg, Slow IV Push, Q6HPRN, Starting on Fri10/13/23 at 2025, Until Fri10/14/23 at 1220, Routine, Pain (scale 7-10) [facility] methocarbam oL 500 mg tablet 2022-11 00:00: 00 Yes [id number] 500mg Take 1 tablet by mouth 3 (three) times daily as needed for Pain (scale 4-6) or Pain (scale 7-10). [facility] sulfamethox azole-trime thoprim (BACTRIM DS) 800-160 mg per tablet 2022-11 00:00: 00 Yes [id number] 1{tbl} Take 1 tablet by mouth in the morning and 1 tablet in the evening. [facility] tamsulosin (FLOMAX) 0.4 mg 24 hr capsule 2022-11 00:00: 00 Yes [id number] .4mg Take 1 capsule by mouth in the morning. [facility] ketorolac 10 mg tablet 2022-11 00:00: 00 Yes [id number] 10mg Take 1 tablet by mouth every 6 (six) hours as needed for Pain (scale 7-10). [facility] gabapentin 100 mg capsule 2022-11 00:00: 00 Yes [id number] 200mg Take 2 capsules by mouth in the morning and 2 capsules in the evening. [facility] methocarbam oL 500 mg tablet 2022-11 00:00: 00 Yes [id number] 500mg Take 1 tablet by mouth 3 (three) times daily as needed for Pain (scale 4-6) or Pain (scale 7-10). [facility] sulfamethox azole-trime thoprim (BACTRIM DS) 800-160 mg per tablet 2022-11 00:00: 00 Yes [id number] 1{tbl} Take 1 tablet by mouth in the morning and 1 tablet in the evening. [facility] tamsulosin (FLOMAX) 0.4 mg 24 hr capsule 2022-11 00:00: 00 Yes [id number] .4mg Take 1 capsule by mouth in the morning. [facility] ketorolac 10 mg tablet 2022-11 00:00: 00 Yes [id number] 10mg Take 1 tablet by mouth every 6 (six) hours as needed for Pain (scale 7-10). [facility] gabapentin 100 mg capsule 2022-11 00:00: 00 Yes [id number] 200mg Take 2 capsules by mouth in the morning and 2 capsules in the evening. [facility] methocarbam oL 500 mg tablet 2022-11 00:00: 00 Yes [id number] 500mg Take 1 tablet by mouth 3 (three) times daily as needed for Pain (scale 4-6) or Pain (scale 7-10). [facility] sulfamethox azole-trime thoprim (BACTRIM DS) 800-160 mg per tablet 2022-11 00:00: 00 Yes [id number] 1{tbl} Take 1 tablet by mouth in the morning and 1 tablet in the evening. [facility] tamsulosin (FLOMAX) 0.4 mg 24 hr capsule 2022-11 00:00: 00 Yes [id number] .4mg Take 1 capsule by mouth in the morning. [facility] ketorolac 10 mg tablet 2022-11 00:00: 00 Yes [id number] 10mg Take 1 tablet by mouth every 6 (six) hours as needed for Pain (scale 7-10). [facility] gabapentin 100 mg capsule 2022-11 00:00: 00 Yes [id number] 200mg Take 2 capsules by mouth in the morning and 2 capsules in the evening. [facility] methocarbam oL 500 mg tablet 2022-11 00:00: 00 Yes [id number] 500mg Take 1 tablet by mouth 3 (three) times daily as needed for Pain (scale 4-6) or Pain (scale 7-10). [facility] sulfamethox azole-trime thoprim (BACTRIM DS) 800-160 mg per tablet 2022-11 00:00: 00 Yes [id number] 1{tbl} Take 1 tablet by mouth in the morning and 1 tablet in the evening. [facility] tamsulosin (FLOMAX) 0.4 mg 24 hr capsule 2022-11 00:00: 00 Yes [id number] .4mg Take 1 capsule by mouth in the morning. [facility] ketorolac 10 mg tablet 2022-11 00:00: 00 Yes [id number] 10mg Take 1 tablet by mouth every 6 (six) hours as needed for Pain (scale 7-10). [facility] gabapentin 100 mg capsule 2022-11 00:00: 00 Yes [id number] 200mg Take 2 capsules by mouth in the morning and 2 capsules in the evening. [facility] methocarbam oL 500 mg tablet 2022-11 00:00: 00 Yes [id number] 500mg Take 1 tablet by mouth 3 (three) times daily as needed for Pain (scale 4-6) or Pain (scale 7-10). [facility] sulfamethox azole-trime thoprim (BACTRIM DS) 800-160 mg per tablet 2022-11 00:00: 00 Yes [id number] 1{tbl} Take 1 tablet by mouth in the morning and 1 tablet in the evening. [facility] tamsulosin (FLOMAX) 0.4 mg 24 hr capsule 2022-11 00:00: 00 Yes [id number] .4mg Take 1 capsule by mouth in the morning. [facility] ketorolac 10 mg tablet 2022-11 00:00: 00 Yes [id number] 10mg Take 1 tablet by mouth every 6 (six) hours as needed for Pain (scale 7-10). [facility] gabapentin 100 mg capsule 2022-11 00:00: 00 Yes [id number] 200mg Take 2 capsules by mouth in the morning and 2 capsules in the evening. [facility] methocarbam oL 500 mg tablet 2022-11 00:00: 00 Yes [id number] 500mg Take 1 tablet by mouth 3 (three) times daily as needed for Pain (scale 4-6) or Pain (scale 7-10). [facility] sulfamethox azole-trime thoprim (BACTRIM DS) 800-160 mg per tablet 2022-11 00:00: 00 Yes [id number] 1{tbl} Take 1 tablet by mouth in the morning and 1 tablet in the evening. [facility] tamsulosin (FLOMAX) 0.4 mg 24 hr capsule 2022-11 00:00: 00 Yes [id number] .4mg Take 1 capsule by mouth in the morning. [facility] ketorolac 10 mg tablet 2022-11 00:00: 00 Yes [id number] 10mg Take 1 tablet by mouth every 6 (six) hours as needed for Pain (scale 7-10). [facility] gabapentin 100 mg capsule 2022-11 00:00: 00 Yes [id number] 200mg Take 2 capsules by mouth in the morning and 2 capsules in the evening. [facility] methocarbam oL 500 mg tablet 2022-11 00:00: 00 Yes [id number] 500mg Take 1 tablet by mouth 3 (three) times daily as needed for Pain (scale 4-6) or Pain (scale 7-10). [facility] sulfamethox azole-trime thoprim (BACTRIM DS) 800-160 mg per tablet 2022-11 00:00: 00 Yes [id number] 1{tbl} Take 1 tablet by mouth in the morning and 1 tablet in the evening. [facility] tamsulosin (FLOMAX) 0.4 mg 24 hr capsule 2022-11 00:00: 00 Yes [id number] .4mg Take 1 capsule by mouth in the morning. [facility] ketorolac 10 mg tablet 2022-11 00:00: 00 Yes [id number] 10mg Take 1 tablet by mouth every 6 (six) hours as needed for Pain (scale 7-10). [facility] gabapentin 100 mg capsule 2022-11 00:00: 00 Yes [id number] 200mg Take 2 capsules by mouth in the morning and 2 capsules in the evening. [facility] acetaminoph en-codeine 300-30 mg tablet 2022-11 00:00: 00 10-18 05:59 :00 Yes [id number] 1{tbl} Take 1 tablet by mouth every 6 (six) hours as needed for Pain (scale 7-10) for up to 3 days. Indication s: acute pain [facility] meperidine (DEMEROL) injection 12.5 mg 2022-11 00:24: 18 Yes 12.5mg 12.5 mg, Slow IV Push, PRN, 1 dose, Starting on Fri10/10/23 at 1824, Until Discontinu ed, Routine, Shivering, PACU
En ter indication for use: Reduce postoperat [place] shivering< br>hotel staff member approving Restricted medication : ROSARIO HOFFMANN [facility] HYDROmorphO ne (DILAUDID) injection 0.2 mg 2022-11 00:24: 18 Yes .2mg 0.2 mg, Slow IV Push, Q5MIN PRN, 10 doses, Starting on Fri10/10/23 at 1824, Until Discontinu ed, Routine, Pain (scale 7-10), PACU
Us e approved by (Faculty): PACU USE -ANESTHESI A SERVICE-HY DROMORPHON E INJECTIONS [facility] FENTanyl PF (SUBLIMAZE (PF)) injection 25 mcg 2022-11 00:24: 18 Yes 25ug 25 mcg, Slow IV Push, Q5MIN PRN, 4 doses, Starting on Fri10/10/23 at 1824, Until Discontinu ed, Routine, Pain (scale 4-6), PACU [facility] meperidine (DEMEROL) injection 12.5 mg 2022-11 00:24: 18 10-11 03:13 :57 No 12.5mg 12.5 mg, Slow IV Push, PRN, 1 dose, Starting on Fri10/10/23 at 1824, Until Fri10/10/23 at 3, Routine, Shivering, PACU
En ter indication for use: Reduce postoperat [place] shivering< br>hotel staff member approving Restricted medication : ROSARIO HOFFMANN [facility] HYDROmorphO ne (DILAUDID) injection 0.2 mg 2022-11 00:24: 18 10-11 03:13 :57 No .2mg 0.2 mg, Slow IV Push, Q5MIN PRN, 10 doses, Starting on Fri10/10/23 at 1824, Until Fri10/10/23 at 3, Routine, Pain (scale 7-10), PACU
Us e approved by (Faculty): PACU USE -ANESTHESI A SERVICE-HY DROMORPHON E INJECTIONS [facility] FENTanyl PF (SUBLIMAZE (PF)) injection 25 mcg 2022-11 00:24: 18 10-11 03:13 :57 No 25ug 25 mcg, Slow IV Push, Q5MIN PRN, 4 doses, Starting on Fri10/10/23 at 1824, Until Fri10/10/23 at 3, Routine, Pain (scale 4-6), PACU [facility] lactated ringers IV infusion 1,000 mL 2022-11 20:00: 00 10-10 20:24 :00 No 1000mL at 42 mL/hr, 1,000 mL, IV Infusion, ONCE, 1 dose, On Fri10/10/23 at 1400, Routine, DSU Pre-op [facility] lactated ringers IV infusion 1,000 mL 2022-11 20:00: 00 10-10 20:24 :00 No 1000mL at 42 mL/hr, 1,000 mL, IV Infusion, ONCE, 1 dose, On Fri10/10/23 at 1400, Routine, DSU Pre-op [facility] FLUoxetine 40 mg capsule 2022-11 19:08: 55 Yes 40mg Take 1 capsule by mouth every morning. [facility] ubrogepant (UBRELVY) 100 mg Tab 2022-11 19:08: 55 Yes Ubrelvy 100 mg tablet Take 1 tablet by oral route as needed. [facility] FLUoxetine 40 mg capsule 2022-11 19:08: 55 Yes 40mg Take 1 capsule by mouth every morning. [facility] ubrogepant (UBRELVY) 100 mg Tab 2022-11 19:08: 55 Yes Ubrelvy 100 mg tablet Take 1 tablet by oral route as needed. [facility] FLUoxetine 40 mg capsule 2022-11 19:08: 55 Yes 40mg Take 1 capsule by mouth every morning. [facility] ubrogepant (UBRELVY) 100 mg Tab 2022-11 19:08: 55 Yes Ubrelvy 100 mg tablet Take 1 tablet by oral route as needed. [facility] FLUoxetine 40 mg capsule 2022-11 19:08: 55 Yes 40mg Take 1 capsule by mouth every morning. [facility] ubrogepant (UBRELVY) 100 mg Tab 2022-11 19:08: 55 Yes Ubrelvy 100 mg tablet Take 1 tablet by oral route as needed. [facility] ketorolac 10 mg tablet 2022-11 00:00: 00 Yes [id number] 10mg Take 1 tablet by mouth every 6 (six) hours as needed for Pain (scale 7-10) (Alternate with ibuprofen if taking concurrent ly). [facility] ketorolac 10 mg tablet 2022-11 00:00: 00 Yes [id number] 10mg Take 1 tablet by mouth every 6 (six) hours as needed for Pain (scale 7-10) (Alternate with ibuprofen if taking concurrent ly). [facility] ketorolac 10 mg tablet 2022-11 00:00: 00 Yes [id number] 10mg Take 1 tablet by mouth every 6 (six) hours as needed for Pain (scale 7-10) (Alternate with ibuprofen if taking concurrent ly). [facility] ketorolac 10 mg tablet 2022-11 00:00: 00 Yes [id number] 10mg Take 1 tablet by mouth every 6 (six) hours as needed for Pain (scale 7-10) (Alternate with ibuprofen if taking concurrent ly). [facility] tamsulosin (FLOMAX) 0.4 mg 24 hr capsule 2022-11 00:00: 00 10-16 05:59 :00 Yes [id number] .4mg Take 1 capsule by mouth in the morning for 5 days. [facility] tamsulosin (FLOMAX) 0.4 mg 24 hr capsule 2022-11 00:00: 00 10-16 05:59 :00 Yes [id number] .4mg Take 1 capsule by mouth in the morning for 5 days. [facility] tamsulosin (FLOMAX) 0.4 mg 24 hr capsule 2022-11 00:00: 00 10-16 05:59 :00 Yes [id number] .4mg Take 1 capsule by mouth in the morning for 5 days. [facility] tamsulosin (FLOMAX) 0.4 mg 24 hr capsule 2022-11 00:00: 00 10-16 05:59 :00 Yes [id number] .4mg Take 1 capsule by mouth in the morning for 5 days. [facility] tamsulosin (FLOMAX) 0.4 mg 24 hr capsule 2022-11 00:00: 00 10-14 00:00 :00 No [id number] .4mg Take 1 capsule by mouth in the morning for 5 days. [facility] ketorolac 10 mg tablet 2022-11 00:00: 00 10-14 00:00 :00 No [id number] 10mg Take 1 tablet by mouth every 6 (six) hours as needed for Pain (scale 7-10) (Alternate with ibuprofen if taking concurrent ly). [facility] FLUoxetine 20 mg capsule 2022-11 08:06: 10-09 00:00 :00 No fluoxetine 20 mg capsule TAKE 1 CAPSULE BY MOUTH EVERY DAY [facility] FLUoxetine 20 mg capsule 2022-11 08:06: 10-09 00:00 :00 No fluoxetine 20 mg capsule TAKE 1 CAPSULE BY MOUTH EVERY DAY [facility] escitalopra m oxalate 20 mg tablet 2022-11 10:50: 05 10-08 00:00 :00 No escitalopr am 20 mg tablet [facility] escitalopra m oxalate 20 mg tablet 2022-11 10:50: 05 10-08 00:00 :00 No escitalopr am 20 mg tablet [facility] escitalopra m oxalate 20 mg tablet 2022-11 10:50: 05 10-08 00:00 :00 No escitalopr am 20 mg tablet [facility] dicyclomine 20 mg tablet 2022-11 10:49: 59 10-08 00:00 :00 No dicyclomin e 20 mg tablet TAKE 1 TABLET BY MOUTH EVERY 6 HOURS NEEDED [facility] dicyclomine 20 mg tablet 2022-11 10:49: 59 10-08 00:00 :00 No dicyclomin e 20 mg tablet TAKE 1 TABLET BY MOUTH EVERY 6 HOURS NEEDED [facility] dicyclomine 20 mg tablet 2022-11 10:49: 59 10-08 00:00 :00 No dicyclomin e 20 mg tablet TAKE 1 TABLET BY MOUTH EVERY 6 HOURS NEEDED [facility] busPIRone 5 mg tablet 2022-11 10:49: 56 10-08 00:00 :00 No buspirone 5 mg tablet [facility] busPIRone 5 mg tablet 2022-11 10:49: 56 10-08 00:00 :00 No buspirone 5 mg tablet [facility] busPIRone 5 mg tablet 2022-11 10:49: 56 10-08 00:00 :00 No buspirone 5 mg tablet [facility] ARIPiprazol e 5 mg tablet 2022-11 10:49: 47 10-08 00:00 :00 No aripiprazo le 5 mg tablet [facility] ARIPiprazol e 5 mg tablet 2022-11 10:49: 47 10-08 00:00 :00 No aripiprazo le 5 mg tablet [facility] ARIPiprazol e 5 mg tablet 2022-11 10:49: 47 10-08 00:00 :00 No aripiprazo le 5 mg tablet [facility] albuterol 90 mcg/actuati on inhaler 2022-11 10:49: 40 10-08 00:00 :00 No 2{puff} Inhale 2 Puffs every 6 (six) hours as needed. [facility] albuterol 90 mcg/actuati on inhaler 2022-11 10:49: 40 10-08 00:00 :00 No 2{puff} Inhale 2 Puffs every 6 (six) hours as needed. [facility] albuterol 90 mcg/actuati on inhaler 2022-11 10:49: 40 10-08 00:00 :00 No 2{puff} Inhale 2 Puffs every 6 (six) hours as needed. [facility] albuterol 2.5 mg /3 mL (0.083 %) nebulizer solution 2022-11 10:49: 34 10-08 00:00 :00 No 2.5mg Inhale 3 mL every 4 (four) hours as needed. [facility] albuterol 2.5 mg /3 mL (0.083 %) nebulizer solution 2022-11 10:49: 34 10-08 00:00 :00 No 2.5mg Inhale 3 mL every 4 (four) hours as needed. [facility] albuterol 2.5 mg /3 mL (0.083 %) nebulizer solution 2022-11 10:49: 34 10-08 00:00 :00 No 2.5mg Inhale 3 mL every 4 (four) hours as needed. [facility] ondansetron 4 mg tablet 2022-11 08:44: 57 10-08 00:00 :00 No ondansetro n HCl 4 mg tablet TAKE 1 TABLET BY MOUTH EVERY 12 HOURS NEEDED [facility] ondansetron 4 mg tablet 2022-11 08:44: 57 10-08 00:00 :00 No ondansetro n HCl 4 mg tablet TAKE 1 TABLET BY MOUTH EVERY 12 HOURS NEEDED [facility] ondansetron 4 mg tablet 2022-11 08:44: 57 10-08 00:00 :00 No ondansetro n HCl 4 mg tablet TAKE 1 TABLET BY MOUTH EVERY 12 HOURS NEEDED [facility] ondansetron 4 mg tablet 2022-11 08:44: 57 10-08 00:00 :00 No ondansetro n HCl 4 mg tablet TAKE 1 TABLET BY MOUTH EVERY 12 HOURS NEEDED [facility] ondansetron 4 mg tablet 2022-11 08:44: 57 10-08 00:00 :00 No ondansetro n HCl 4 mg tablet TAKE 1 TABLET BY MOUTH EVERY 12 HOURS NEEDED [facility] ondansetron 4 mg tablet 2022-11 08:44: 57 10-08 00:00 :00 No ondansetro n HCl 4 mg tablet TAKE 1 TABLET BY MOUTH EVERY 12 HOURS NEEDED [facility] chlorhexidi ne 0.12 % mouthwash 2022-11 08:43: 33 10-08 00:00 :00 No chlorhexid ine gluconate 0.12 % mouthwash USE TWICE DAILY [facility] chlorhexidi ne 0.12 % mouthwash 2022-11 08:43: 10-08 00:00 :00 No chlorhexid ine gluconate 0.12 % mouthwash USE TWICE DAILY [facility] chlorhexidi ne 0.12 % mouthwash 2022-11 08:43: 33 10-08 00:00 :00 No chlorhexid ine gluconate 0.12 % mouthwash USE TWICE DAILY [facility] chlorhexidi ne 0.12 % mouthwash 2022-11 08:43: 33 10-08 00:00 :00 No chlorhexid ine gluconate 0.12 % mouthwash USE TWICE DAILY [facility] chlorhexidi ne 0.12 % mouthwash 2022-11 08:43: 33 10-08 00:00 :00 No chlorhexid ine gluconate 0.12 % mouthwash USE TWICE DAILY [facility] chlorhexidi ne 0.12 % mouthwash 2022-11 08:43: 33 10-08 00:00 :00 No chlorhexid ine gluconate 0.12 % mouthwash USE TWICE DAILY [facility] diphenoxyla te-atropine 2.5-0.025 mg tablet 2022-11 08:43: 10-08 00:00 :00 No diphenoxyl ate-atropi ne 2.5 mg-0.025 mg tablet [facility] diphenoxyla te-atropine 2.5-0.025 mg tablet 2022-11 08:43: 30 10-08 00:00 :00 No diphenoxyl ate-atropi ne 2.5 mg-0.025 mg tablet [facility] diphenoxyla te-atropine 2.5-0.025 mg tablet 2022-11 08:43: 30 10-08 00:00 :00 No diphenoxyl ate-atropi ne 2.5 mg-0.025 mg tablet [facility] diphenoxyla te-atropine 2.5-0.025 mg tablet 2022-11 08:43: 30 10-08 00:00 :00 No diphenoxyl ate-atropi ne 2.5 mg-0.025 mg tablet [facility] diphenoxyla te-atropine 2.5-0.025 mg tablet 2022-11 08:43: 30 10-08 00:00 :00 No diphenoxyl ate-atropi ne 2.5 mg-0.025 mg tablet [facility] diphenoxyla te-atropine 2.5-0.025 mg tablet 2022-11 08:43: 30 10-08 00:00 :00 No diphenoxyl ate-atropi ne 2.5 mg-0.025 mg tablet [facility] fluconazole 200 mg tablet 2022-11 08:43: 15 10-08 00:00 :00 No fluconazol e 200 mg tablet [facility] fluconazole 200 mg tablet 2022-11 08:43: 15 10-08 00:00 :00 No fluconazol e 200 mg tablet [facility] fluconazole 200 mg tablet 2022-11 08:43: 15 10-08 00:00 :00 No fluconazol e 200 mg tablet [facility] fluconazole 200 mg tablet 2022-11 08:43: 15 10-08 00:00 :00 No fluconazol e 200 mg tablet [facility] fluconazole 200 mg tablet 2022-11 08:43: 15 10-08 00:00 :00 No fluconazol e 200 mg tablet [facility] fluconazole 200 mg tablet 2022-11 08:43: 15 10-08 00:00 :00 No fluconazol e 200 mg tablet [facility] iron-FA-dha -epa-FAD-NA DH-be-mv (ENLYTE) 1.5 mg iron- 8.73 mg CpID 2022-11 08:42: 37 10-08 00:00 :00 No EnLyte 1.5 mg iron-8.73 mg capsule,im mediate - delay release [facility] iron-FA-dha -epa-FAD-NA DH-be-mv (ENLYTE) 1.5 mg iron- 8.73 mg CpID 2022-11 08:42: 37 10-08 00:00 :00 No EnLyte 1.5 mg iron-8.73 mg capsule,im mediate - delay release [facility] iron-FA-dha -epa-FAD-NA DH-be-mv (ENLYTE) 1.5 mg iron- 8.73 mg CpID 2022-11 08:42: 37 10-08 00:00 :00 No EnLyte 1.5 mg iron-8.73 mg capsule,im mediate - delay release [facility] iron-FA-dha -epa-FAD-NA DH-be-mv (ENLYTE) 1.5 mg iron- 8.73 mg CpID 2022-11 08:42: 37 10-08 00:00 :00 No EnLyte 1.5 mg iron-8.73 mg capsule,im mediate - delay release [facility] iron-FA-dha -epa-FAD-NA DH-be-mv (ENLYTE) 1.5 mg iron- 8.73 mg CpID 2022-11 08:42: 37 10-08 00:00 :00 No EnLyte 1.5 mg iron-8.73 mg capsule,im mediate - delay release [facility] iron-FA-dha -epa-FAD-NA DH-be-mv (ENLYTE) 1.5 mg iron- 8.73 mg CpID 2022-11 08:42: 37 10-08 00:00 :00 No EnLyte 1.5 mg iron-8.73 mg capsule,im mediate - delay release [facility] lurasidone 20 mg tablet 2022-11 08:42: 34 10-08 00:00 :00 No Latuda 20 mg tablet [facility] lurasidone 20 mg tablet 2022-11 08:42: 34 10-08 00:00 :00 No Latuda 20 mg tablet [facility] lurasidone 20 mg tablet 2022-11 08:42: 34 10-08 00:00 :00 No Latuda 20 mg tablet [facility] lurasidone 20 mg tablet 2022-11 08:42: 34 10-08 00:00 :00 No Latuda 20 mg tablet [facility] lurasidone 20 mg tablet 2022-11 08:42: 34 10-08 00:00 :00 No Latuda 20 mg tablet [facility] lurasidone 20 mg tablet 2022-11 08:42: 34 10-08 00:00 :00 No Latuda 20 mg tablet [facility] ondansetron 4 mg disintegrat ing tablet 2022-11 08:41: 45 10-08 00:00 :00 No ondansetro n 4 mg disintegra ting tablet [facility] ondansetron 4 mg disintegrat ing tablet 2022-11 08:41: 45 10-08 00:00 :00 No ondansetro n 4 mg disintegra ting tablet [facility] ondansetron 4 mg disintegrat ing tablet 2022-11 08:41: 45 10-08 00:00 :00 No ondansetro n 4 mg disintegra ting tablet [facility] ondansetron 4 mg disintegrat ing tablet 2022-11 08:41: 45 10-08 00:00 :00 No ondansetro n 4 mg disintegra ting tablet [facility] ondansetron 4 mg disintegrat ing tablet 2022-11 08:41: 45 10-08 00:00 :00 No ondansetro n 4 mg disintegra ting tablet [facility] ondansetron 4 mg disintegrat ing tablet 2022-11 08:41: 45 10-08 00:00 :00 No ondansetro n 4 mg disintegra ting tablet [facility] prazosin 1 mg capsule 2022-11 08:41: 33 10-08 00:00 :00 No prazosin 1 mg capsule [facility] prazosin 1 mg capsule 2022-11 08:41: 33 10-08 00:00 :00 No prazosin 1 mg capsule [facility] prazosin 1 mg capsule 2022-11 08:41: 33 10-08 00:00 :00 No prazosin 1 mg capsule [facility] prazosin 1 mg capsule 2022-11 08:41: 33 10-08 00:00 :00 No prazosin 1 mg capsule [facility] prazosin 1 mg capsule 2022-11 08:41: 33 10-08 00:00 :00 No prazosin 1 mg capsule [facility] prazosin 1 mg capsule 2022-11 08:41: 33 10-08 00:00 :00 No prazosin 1 mg capsule [facility] predniSONE 20 mg tablet 2022-11 08:41: 18 10-08 00:00 :00 No prednisone 20 mg tablet [facility] predniSONE 20 mg tablet 2022-11 08:41: 18 10-08 00:00 :00 No prednisone 20 mg tablet [facility] predniSONE 20 mg tablet 2022-11 08:41: 18 10-08 00:00 :00 No prednisone 20 mg tablet [facility] predniSONE 20 mg tablet 2022-11 08:41: 18 10-08 00:00 :00 No prednisone 20 mg tablet [facility] predniSONE 20 mg tablet 2022-11 08:41: 18 10-08 00:00 :00 No prednisone 20 mg tablet [facility] predniSONE 20 mg tablet 2022-11 08:41: 18 10-08 00:00 :00 No prednisone 20 mg tablet [facility] Sodium Fluoride, Dental Gel, 1.1 % Crea 2022-11 08:41: 05 10-08 00:00 :00 No Denta 5000 Plus 1.1 % cream USE TWICE A DAY IN THE MORNING AND AT NIGHT. DO NOT EAT OR DRINK FOR AT LEAST 30 MINS [facility] Sodium Fluoride, Dental Gel, 1.1 % Crea 2022-11 08:41: 05 10-08 00:00 :00 No Denta 5000 Plus 1.1 % cream USE TWICE A DAY IN THE MORNING AND AT NIGHT. DO NOT EAT OR DRINK FOR AT LEAST 30 MINS [facility] Sodium Fluoride, Dental Gel, 1.1 % Crea 2022-11 08:41: 05 10-08 00:00 :00 No Denta 5000 Plus 1.1 % cream USE TWICE A DAY IN THE MORNING AND AT NIGHT. DO NOT EAT OR DRINK FOR AT LEAST 30 MINS [facility] Sodium Fluoride, Dental Gel, 1.1 % Crea 2022-11 08:41: 10-08 00:00 :00 No Denta 5000 Plus 1.1 % cream USE TWICE A DAY IN THE MORNING AND AT NIGHT. DO NOT EAT OR DRINK FOR AT LEAST 30 MINS [facility] Sodium Fluoride, Dental Gel, 1.1 % Crea 2022-11 08:41: 10-08 00:00 :00 No Denta 5000 Plus 1.1 % cream USE TWICE A DAY IN THE MORNING AND AT NIGHT. DO NOT EAT OR DRINK FOR AT LEAST 30 MINS [facility] Sodium Fluoride, Dental Gel, 1.1 % Crea 2022-11 08:41: 10-08 00:00 :00 No Denta 5000 Plus 1.1 % cream USE TWICE A DAY IN THE MORNING AND AT NIGHT. DO NOT EAT OR DRINK FOR AT LEAST 30 MINS [facility] SUMAtriptan 50 mg tablet 2022-11 08:41: 10-08 00:00 :00 No [facility]atripta n 50 mg tablet [facility] 2022-11 08:41: 02 10-08 00:00 :00 No sumatripta n 50 mg tablet [facility] SUMAtriptan 50 mg tablet 2022-11 08:41: 02 10-08 00:00 :00 No sumatripta n 50 mg tablet [facility] SUMAtriptan 50 mg tablet 2022-11 08:41: 02 10-08 00:00 :00 No sumatripta n 50 mg tablet [facility] SUMAtriptan 50 mg tablet 2022-11 08:41: 02 10-08 00:00 :00 No sumatripta n 50 mg tablet [facility] SUMAtriptan 50 mg tablet 2022-11 08:41: 02 10-08 00:00 :00 No sumatripta n 50 mg tablet [facility] tamsulosin 0.4 mg 24 hr capsule 2022-11 00:00: 00 Yes [id number] .4mg Take 1 capsule by mouth in the morning. [facility] ondansetron 4 mg tablet 2022-11 00:00: 00 Yes [id number] 4mg Take 1 tablet by mouth every 8 (eight) hours as needed for Nausea and Vomiting (N/V). [facility] tamsulosin 0.4 mg 24 hr capsule 2022-11 00:00: 00 Yes [id number] .4mg Take 1 capsule by mouth in the morning. [facility] ondansetron 4 mg tablet 2022-11 00:00: 00 Yes [id number] 4mg Take 1 tablet by mouth every 8 (eight) hours as needed for Nausea and Vomiting (N/V). [facility] tamsulosin 0.4 mg 24 hr capsule 2022-11 00:00: 00 Yes [id number] .4mg Take 1 capsule by mouth in the morning. [facility] ondansetron 4 mg tablet 2022-11 00:00: 00 Yes [id number] 4mg Take 1 tablet by mouth every 8 (eight) hours as needed for Nausea and Vomiting (N/V). [facility] tamsulosin 0.4 mg 24 hr capsule 2022-11 00:00: 00 Yes [id number] .4mg Take 1 capsule by mouth in the morning. [facility] ondansetron 4 mg tablet 2022-11 00:00: 00 Yes [id number] 4mg Take 1 tablet by mouth every 8 (eight) hours as needed for Nausea and Vomiting (N/V). [facility] tamsulosin 0.4 mg 24 hr capsule 2022-11 00:00: 00 Yes [id number] .4mg Take 1 capsule by mouth in the morning. [facility] ondansetron 4 mg tablet 2022-11 00:00: 00 Yes [id number] 4mg Take 1 tablet by mouth every 8 (eight) hours as needed for Nausea and Vomiting (N/V). [facility] tamsulosin 0.4 mg 24 hr capsule 2022-11 00:00: 00 Yes [id number] .4mg Take 1 capsule by mouth in the morning. [facility] ondansetron 4 mg tablet 2022-11 00:00: 00 Yes [id number] 4mg Take 1 tablet by mouth every 8 (eight) hours as needed for Nausea and Vomiting (N/V). [facility] tamsulosin 0.4 mg 24 hr capsule 2022-11 00:00: 00 Yes [id number] .4mg Take 1 capsule by mouth in the morning. [facility] ondansetron 4 mg tablet 2022-11 00:00: 00 Yes [id number] 4mg Take 1 tablet by mouth every 8 (eight) hours as needed for Nausea and Vomiting (N/V). [facility] tamsulosin 0.4 mg 24 hr capsule 2022-11 00:00: 00 Yes [id number] .4mg Take 1 capsule by mouth in the morning. [facility] ondansetron 4 mg tablet 2022-11 00:00: 00 Yes [id number] 4mg Take 1 tablet by mouth every 8 (eight) hours as needed for Nausea and Vomiting (N/V). [facility] tamsulosin 0.4 mg 24 hr capsule 2022-11 00:00: 00 Yes [id number] .4mg Take 1 capsule by mouth in the morning. [facility] ondansetron 4 mg tablet 2022-11 00:00: 00 Yes [id number] 4mg Take 1 tablet by mouth every 8 (eight) hours as needed for Nausea and Vomiting (N/V). [facility] tamsulosin 0.4 mg 24 hr capsule 2022-11 00:00: 00 Yes [id number] .4mg Take 1 capsule by mouth in the morning. [facility] ondansetron 4 mg tablet 2022-11 00:00: 00 Yes [id number] 4mg Take 1 tablet by mouth every 8 (eight) hours as needed for Nausea and Vomiting (N/V). [facility] ondansetron 4 mg tablet 2022-11 00:00: 00 Yes [id number] 4mg Take 1 tablet by mouth every 8 (eight) hours as needed for Nausea and Vomiting (N/V). [facility] ondansetron 4 mg tablet 2022-11 00:00: 00 Yes [id number] 4mg Take 1 tablet by mouth every 8 (eight) hours as needed for Nausea and Vomiting (N/V). [facility] ondansetron 4 mg tablet 2022-11 00:00: 00 Yes [id number] 4mg Take 1 tablet by mouth every 8 (eight) hours as needed for Nausea and Vomiting (N/V). [facility] ondansetron 4 mg tablet 2022-11 00:00: 00 Yes [id number] 4mg Take 1 tablet by mouth every 8 (eight) hours as needed for Nausea and Vomiting (N/V). [facility] ondansetron 4 mg tablet 2022-11 00:00: 00 Yes [id number] 4mg Take 1 tablet by mouth every 8 (eight) hours as needed for Nausea and Vomiting (N/V). [facility] ondansetron 4 mg tablet 2022-11 00:00: 00 Yes [id number] 4mg Take 1 tablet by mouth every 8 (eight) hours as needed for Nausea and Vomiting (N/V). [facility] ondansetron 4 mg tablet 2022-11 00:00: 00 Yes [id number] 4mg Take 1 tablet by mouth every 8 (eight) hours as needed for Nausea and Vomiting (N/V). [facility] tamsulosin 0.4 mg 24 hr capsule 2022-11 00:00: 00 10-14 00:00 :00 No [id number] .4mg Take 1 capsule by mouth in the morning. [facility] ketorolac (TORADOL) injection 15 mg 2022-11 05:45: 00 10-06 06:04 :00 No 15mg 15 mg, Slow IV Push, ONCE, 1 dose, On 10/05/23 at 2345, Routine [facility] HYDROcodone -acetaminop hen (NORCO 5) 5-325 mg tablet 1 tablet 2022-11 04:15: 00 10-06 04:06 :00 No 1{tbl} 1 tablet, Oral, ONCE, 1 dose, On 10/05/23 at 2215, [facility] naproxen 500 mg EC tablet 2022-11 00:00: 00 Yes [id number] 500mg Take 1 tablet by mouth as needed for Pain (scale 4-6). [facility] naproxen 500 mg EC tablet 2022-11 00:00: 00 Yes [id number] 500mg Take 1 tablet by mouth as needed for Pain (scale 4-6). [facility] naproxen 500 mg EC tablet 2022-11 00:00: 00 Yes [id number] 500mg Take 1 tablet by mouth as needed for Pain (scale 4-6). [facility] [facility] 500 [facility] EC tablet 2022-11 00:00: 00 Yes [id number] 500mg Take 1 tablet by mouth as needed for Pain (scale 4-6). [facility] naproxen 500 mg EC tablet 2022-11 00:00: 00 Yes [id number] 500mg Take 1 tablet by mouth as needed for Pain (scale 4-6). [facility] naproxen 500 mg EC tablet 2022-11 00:00: 00 Yes [id number] 500mg Take 1 tablet by mouth as needed for Pain (scale 4-6). [facility] naproxen 500 mg EC tablet 2022-11 00:00: 00 Yes [id number] 500mg Take 1 tablet by mouth as needed for Pain (scale 4-6). [facility] naproxen 500 mg EC tablet 2022-11 00:00: 00 Yes [id number] 500mg Take 1 tablet by mouth as needed for Pain (scale 4-6). [facility] naproxen 500 mg EC tablet 2022-11 00:00: 00 Yes [id number] 500mg Take 1 tablet by mouth as needed for Pain (scale 4-6). [facility] naproxen 500 mg EC tablet 2022-11 00:00: 00 Yes [id number] 500mg Take 1 tablet by mouth as needed for Pain (scale 4-6). [facility] naproxen 500 mg EC tablet 2022-11 00:00: 00 Yes [id number] 500mg Take 1 tablet by mouth as needed for Pain (scale 4-6). [facility] naproxen 500 mg EC tablet 2022-11 00:00: 00 10-14 00:00 :00 No [id number] 500mg Take 1 tablet by mouth as needed for Pain (scale 4-6). [facility], 200-300 mg tablet 2022-11 016 00:00: 00 Yes 1{tbl} Take 1 tablet by mouth every 24 (twenty-fo ur) hours. [facility]-tenof[facility], TDF, 200-300 mg tablet 2022-11 016 00:00: 00 Yes 1{tbl} Take 1 tablet by mouth every 24 (twenty-fo ur) hours. [facility] ne-tenofovi r, TDF, 200-300 mg tablet 2022-11 0-16 00:00: 00 Yes 1{tbl} Take 1 tablet by mouth every 24 (twenty-fo ur) hours. [facility] ne-tenofovi r, TDF, 200-300 mg tablet 2022-11 0-16 00:00: 00 Yes 1{tbl} Take 1 tablet by mouth every 24 (twenty-fo ur) hours. [facility] ne-tenofovi r, TDF, 200-300 mg tablet 2022-11 0-16 00:00: 00 Yes 1{tbl} Take 1 tablet by mouth every 24 (twenty-fo ur) hours. [facility] medroxyPROG ESTERone (DEPO-PROVE RA) syringe 150 mg 2022-11 0- 14:00: 00 08-15 13:03 :[id number] [facility] medroxyPROG ESTERone (DEPO-PROVE RA) syringe 150 mg 2022-11 0-06 14:00: 00 08-15 13:03 :00 No [id number] 150mg 150 mg, Intramuscu lar, ONCE, 1 dose, On Fri08/15/23 at 0900, Routine [facility] medroxyPROG ESTERone (DEPO-PROVE RA) syringe 150 mg 05-14 21:30: 00 05-14 20:47 :[id number] [facility] medroxyPROG ESTERone (DEPO-PROVE RA) syringe 150 mg 05-14 21:30: 00 05-14 20:47 :00 No [id number] 150mg 150 mg, Intramuscu lar, ONCE, 1 dose, On Fri05/14/23 at 1630, Routine [facility] medroxyPROG ESTERone (DEPO-PROVE RA) syringe 150 mg 02-18 21:15: 00 02-18 20:22 :[id number] [facility] medroxyPROG ESTERone (DEPO-PROVE RA) syringe 150 mg 02-18 21:15: 00 02-18 20:22 :00 No [id number] 150mg 150 mg, Intramuscu lar, ONCE, 1 dose, On Fri02/18/23 at 1615, [facility]ine [facility] albuterol 90 mcg/actuati on inhaler 02-18 15:20: 25 Yes 2{puff} Inhale 2 Puffs every 6 (six) hours as needed. [facility] albuterol 2.5 mg /3 mL (0.083 %) nebulizer solution 02-18 15:20: 25 Yes 2.5mg Inhale 3 mL every 4 (four) hours as needed. [facility] SUMAtriptan 50 mg tablet 02-18 15:20: 25 Yes sumatripta n 50 mg tablet [facility] albuterol 90 mcg/actuati on inhaler 02-18 15:20: 25 Yes 2{puff} Inhale 2 Puffs every 6 (six) hours as needed. [facility] albuterol 2.5 mg /3 mL (0.083 %) nebulizer solution 02-18 15:20: 25 Yes 2.5mg Inhale 3 mL every 4 (four) hours as needed. [facility] SUMAtriptan 50 mg tablet 02-18 15:20: 25 Yes sumatripta n 50 mg tablet [facility] albuterol 90 mcg/actuati on inhaler 02-18 15:20: 25 Yes 2{puff} Inhale 2 Puffs every 6 (six) hours as needed. [facility] albuterol 2.5 mg /3 mL (0.083 %) nebulizer solution 02-18 15:20: 25 Yes 2.5mg Inhale 3 mL every 4 (four) hours as needed. [facility] SUMAtriptan 50 mg tablet 02-18 15:20: 25 Yes sumatripta n 50 mg tablet [facility] albuterol 90 mcg/actuati on inhaler 02-18 15:20: 25 Yes 2{puff} Inhale 2 Puffs every 6 (six) hours as needed. [facility] albuterol 2.5 mg /3 mL (0.083 %) nebulizer solution 02-18 15:20: 25 Yes 2.5mg Inhale 3 mL every 4 (four) hours as needed. [facility] SUMAtriptan 50 mg tablet 02-18 15:20: 25 Yes sumatripta n 50 mg tablet [facility] albuterol 90 mcg/actuati on inhaler 02-18 15:20: 25 Yes 2{puff} Inhale 2 Puffs every 6 (six) hours as needed. [facility] albuterol 2.5 mg /3 mL (0.083 %) nebulizer solution 02-18 15:20: 25 Yes 2.5mg Inhale 3 mL every 4 (four) hours as needed. [facility] SUMAtriptan 50 mg tablet 02-18 15:20: 25 Yes sumatripta n 50 mg tablet [facility] albuterol 90 mcg/actuati on inhaler 02-18 15:20: 25 Yes 2{puff} Inhale 2 Puffs every 6 (six) hours as needed. [facility] albuterol 2.5 mg /3 mL (0.083 %) nebulizer solution 02-18 15:20: 25 Yes 2.5mg Inhale 3 mL every 4 (four) hours as needed. [facility] SUMAtriptan 50 mg tablet 02-18 15:20: 25 Yes sumatripta n 50 mg tablet [facility]/actu[facility]er 02-18 15:20: 25 Yes 2{puff} Inhale 2 Puffs every 6 (six) hours as needed. [facility] albuterol 2.5 mg /3 mL (0.083 %) nebulizer solution 02-18 15:20: 25 Yes 2.5mg Inhale 3 mL every 4 (four) hours as needed. [facility] mcg/actuati on inhaler 02-18 15:20: 25 Yes 2{puff} Inhale 2 Puffs every 6 (six) hours as needed. [facility] albuterol 2.5 mg /3 mL (0.083 %) nebulizer solution 02-18 15:20: 25 Yes 2.5mg Inhale 3 mL every 4 (four) hours as needed. [facility] albuterol 90 mcg/actuati on inhaler 02-18 15:20: 25 Yes 2{puff} Inhale 2 Puffs every 6 (six) hours as needed. [facility] albuterol 2.5 mg /3 mL (0.083 %) nebulizer solution 02-18 15:20: 25 Yes 2.5mg Inhale 3 mL every 4 (four) hours as needed. [facility] medroxyPROG ESTERone (DEPO-PROVE RA) syringe 150 mg 11-18 22:00: 00 11-18 21:18 :[id number] [facility] medroxyPROG ESTERone (DEPO-PROVE RA) syringe 150 mg 11-18 22:00: 00 11-18 21:18 :00 No [id number] 150mg 150 mg, Intramuscu lar, ONCE, 1 dose, On Fri11/18/22 at 1600, Routine [facility] medroxyPROG ESTERone (DEPO-PROVE RA) syringe 150 mg 11-18 22:00: 00 11-18 21:18 :[id number] [facility] medroxyPROG ESTERone (DEPO-PROVE RA) syringe 150 mg 11-18 22:00: 00 11-18 21:18 :00 No [id number] 150mg 150 mg, Intramuscu lar, ONCE, 1 dose, On Fri11/18/22 at 1600, Routine [facility] clindamycin 300 mg capsule 11-18 15:33: 50 11-18 00:00 :00 No clindamyci n HCl 300 mg capsule Take 1 capsule 3 times a day by oral route for 10 days. [facility] clindamycin 300 mg capsule 11-18 15:33: 50 11-18 00:00 :00 No clindamyci n HCl 300 mg capsule Take 1 capsule 3 times a day by oral route for 10 days. [facility] ciprofloxac in HCl 500 mg tablet 11-18 15:33: 47 11-18 00:00 :00 No ciprofloxa monica 500 mg tablet [facility] ciprofloxac in HCl 500 mg tablet 11-18 15:33: 47 11-18 00:00 :00 No ciprofloxa monica 500 mg tablet [facility] cephALEXin 500 mg capsule 11-18 15:33: 40 11-18 00:00 :00 No cephalexin 500 mg capsule [facility] cephALEXin 500 mg capsule 11-18 15:33: 40 11-18 00:00 :00 No cephalexin 500 mg capsule [facility] azithromyci n 250 mg tablet 11-18 15:33: 37 11-18 00:00 :00 No azithromyc in 250 mg tablet TAKE BY MOUTH 2 TABLETS TODAY THEN 1 TABLE DAILY FOR NEXT 4 DAYS [facility] azithromyci n 250 mg tablet 11-18 15:33: 37 11-18 00:00 :00 No azithromyc in 250 mg tablet TAKE BY MOUTH 2 TABLETS TODAY THEN 1 TABLE DAILY FOR NEXT 4 DAYS [facility] doxylamine- pyridoxine, vit B6, 10-10 mg per tablet 11-18 15:33: 25 11-18 00:00 :00 No Diclegis 10 mg-10 mg tablet,del ayed release TAKE 1 TABLET BY MOUTH THREE TIMES A DAY NEEDED AND 2 AT BEDTIME [facility] doxylamine- pyridoxine, vit B6, 10-10 mg per tablet 11-18 15:33: 25 11-18 00:00 :00 No Diclegis 10 mg-10 mg tablet,del ayed release TAKE 1 TABLET BY MOUTH THREE TIMES A DAY NEEDED AND 2 AT BEDTIME [facility] norgestimat e-ethinyl estradioL 0.25-35 mg-mcg per tablet 11-18 15:33: 12 11-18 00:00 :00 No Sprintec (28) 0.25 mg-35 mcg tablet TAKE 1 TABLET BY MOUTH EVERY DAY [facility] norgestimat e-ethinyl estradioL 0.25-35 mg-mcg per tablet 11-18 15:33: 12 11-18 00:00 :00 No Sprintec (28) 0.25 mg-35 mcg tablet TAKE 1 TABLET BY MOUTH EVERY DAY [facility] Nitrofurant oin&Nit. Macrocryst 100 mg capsule 11-18 15:33: 11-18 00:00 :00 No nitrofuran toin monohydrat e/macrocry stals 100 mg capsule [facility] Nitrofurant oin&Nit. Macrocryst 100 mg capsule 11-18 15:33: 09 11-18 00:00 :00 No nitrofuran toin monohydrat e/macrocry stals 100 mg capsule [facility] vit,calc76/ iron/folic (PRENATABS RX ORAL) 11-18 15:33: 11-18 00:00 :00 No Prenatabs Rx 29 mg iron-1 mg tablet [facility] vit,calc76/ iron/folic (PRENATABS RX ORAL) 11-18 15:33: 03 11-18 00:00 :00 No Prenatabs Rx 29 mg iron-1 mg tablet [facility] PNV38/iron, crb,g/folic /dss/dha (CITRANATAL ASSURE ORAL) 11-18 15:33: 02 11-18 00:00 :00 No CitraNatal Assure 35 mg iron-1 mg-50 mg-300 mg oral pack [facility] PNV38/iron, crb,g/folic /dss/dha (CITRANATAL ASSURE ORAL) 11-18 15:33: 02 11-18 00:00 :00 No CitraNatal Assure 35 mg iron-1 mg-50 mg-300 mg oral pack [facility] PN 67-iron ps-folate no.1-dha (VITAFOL ULTRA) 29 mg iron- 1 mg-200 mg Cap 11-18 15:32: 56 11-18 00:00 :00 No Vitafol Ultra 29 mg iron-1 mg-200 mg capsule [facility] PN 67-iron ps-folate no.1-dha (VITAFOL ULTRA) 29 mg iron- 1 mg-200 mg Cap 11-18 15:32: 56 11-18 00:00 :00 No Vitafol Ultra 29 mg iron-1 mg-200 mg capsule [facility] sulfamethox azole-trime thoprim 800-160 mg per tablet 11-18 15:32: 50 11-18 00:00 :00 No sulfametho xazole 800 mg-trimeth oprim 160 mg tablet [facility] sulfamethox azole-trime thoprim 800-160 mg per tablet 11-18 15:32: 50 11-18 00:00 :00 No sulfametho xazole 800 mg-trimeth oprim 160 mg tablet [facility] predniSONE 20 mg tablet 11-18 14:55: 24 Yes prednisone 20 mg tablet [facility] prazosin 1 mg capsule 11-18 14:55: 24 Yes prazosin 1 mg capsule [facility] ondansetron 4 mg tablet 11-18 14:55: 24 Yes ondansetro n HCl 4 mg tablet TAKE 1 TABLET BY MOUTH EVERY 12 HOURS NEEDED [facility] ondansetron 4 mg disintegrat ing tablet 11-18 14:55: 24 Yes ondansetro n 4 mg disintegra ting tablet [facility] lurasidone 20 mg tablet 11-18 14:55: 24 Yes Latuda 20 mg tablet [facility] Sodium Fluoride, Dental Gel, 1.1 % Crea 11-18 14:55: 24 Yes Denta 5000 Plus 1.1 % cream USE TWICE A DAY IN THE MORNING AND AT NIGHT. DO NOT EAT OR DRINK FOR AT LEAST 30 MINS [facility] fluconazole 200 mg tablet 11-18 14:55: 24 Yes fluconazol e 200 mg tablet [facility] escitalopra m oxalate 20 mg tablet 11-18 14:55: 24 Yes escitalopr am 20 mg tablet [facility] diphenoxyla te-atropine 2.5-0.025 mg tablet 11-18 14:55: 24 Yes diphenoxyl ate-atropi ne 2.5 mg-0.025 mg tablet [facility] dicyclomine 20 mg tablet 11-18 14:55: 24 Yes dicyclomin e 20 mg tablet TAKE 1 TABLET BY MOUTH EVERY 6 HOURS NEEDED [facility] chlorhexidi ne 0.12 % mouthwash 11-18 14:55: 24 Yes chlorhexid ine gluconate 0.12 % mouthwash USE TWICE DAILY [facility] busPIRone 5 mg tablet 11-18 14:55: 24 Yes buspirone 5 mg tablet [facility] ARIPiprazol e 5 mg tablet 11-18 14:55: 24 Yes aripiprazo le 5 mg tablet [facility] iron-FA-dha -epa-FAD-NA DH-be-mv (ENLYTE) 1.5 mg iron- 8.73 mg CpID 11-18 14:55: 24 Yes EnLyte 1.5 mg iron-8.73 mg capsule,im mediate - delay release [facility] predniSONE 20 mg tablet 11-18 14:55: 24 Yes prednisone 20 mg tablet [facility] prazosin 1 mg capsule 11-18 14:55: 24 Yes prazosin 1 mg capsule [facility] ondansetron 4 mg tablet 11-18 14:55: 24 Yes ondansetro n HCl 4 mg tablet TAKE 1 TABLET BY MOUTH EVERY 12 HOURS NEEDED [facility] ondansetron 4 mg disintegrat ing tablet 11-18 14:55: 24 Yes ondansetro n 4 mg disintegra ting tablet [facility] lurasidone 20 mg tablet 11-18 14:55: 24 Yes Latuda 20 mg tablet [facility] Sodium Fluoride, Dental Gel, 1.1 % Crea 11-18 14:55: 24 Yes Denta 5000 Plus 1.1 % cream USE TWICE A DAY IN THE MORNING AND AT NIGHT. DO NOT EAT OR DRINK FOR AT LEAST 30 MINS [facility] fluconazole 200 mg tablet 11-18 14:55: 24 Yes fluconazol e 200 mg tablet [facility] escitalopra m oxalate 20 mg tablet 11-18 14:55: 24 Yes escitalopr am 20 mg tablet [facility] diphenoxyla te-atropine 2.5-0.025 mg tablet 11-18 14:55: 24 Yes diphenoxyl ate-atropi ne 2.5 mg-0.025 mg tablet [facility] dicyclomine 20 mg tablet 11-18 14:55: 24 Yes dicyclomin e 20 mg tablet TAKE 1 TABLET BY MOUTH EVERY 6 HOURS NEEDED [facility] chlorhexidi ne 0.12 % mouthwash 11-18 14:55: 24 Yes chlorhexid ine gluconate 0.12 % mouthwash USE TWICE DAILY [facility] busPIRone 5 mg tablet 11-18 14:55: 24 Yes buspirone 5 mg tablet [facility] ARIPiprazol e 5 mg tablet 11-18 14:55: 24 Yes aripiprazo le 5 mg tablet [facility] iron-FA-dha -epa-FAD-NA DH-be-mv (ENLYTE) 1.5 mg iron- 8.73 mg CpID 11-18 14:55: 24 Yes EnLyte 1.5 mg iron-8.73 mg capsule,im mediate - delay release [facility] predniSONE 20 mg tablet 11-18 14:55: 24 Yes prednisone 20 mg tablet [facility] prazosin 1 mg capsule 11-18 14:55: 24 Yes prazosin 1 mg capsule [facility] ondansetron 4 mg tablet 11-18 14:55: 24 Yes ondansetro n HCl 4 mg tablet TAKE 1 TABLET BY MOUTH EVERY 12 HOURS NEEDED [facility] ondansetron 4 mg disintegrat ing tablet 11-18 14:55: 24 Yes ondansetro n 4 mg disintegra ting tablet [facility] lurasidone 20 mg tablet 11-18 14:55: 24 Yes Latuda 20 mg tablet [facility] Sodium Fluoride, Dental Gel, 1.1 % Crea 11-18 14:55: 24 Yes Denta 5000 Plus 1.1 % cream USE TWICE A DAY IN THE MORNING AND AT NIGHT. DO NOT EAT OR DRINK FOR AT LEAST 30 MINS [facility] fluconazole 200 mg tablet 11-18 14:55: 24 Yes fluconazol e 200 mg tablet [facility] escitalopra m oxalate 20 mg tablet 11-18 14:55: 24 Yes escitalopr am 20 mg tablet [facility] diphenoxyla te-atropine 2.5-0.025 mg tablet 11-18 14:55: 24 Yes diphenoxyl ate-atropi ne 2.5 mg-0.025 mg tablet [facility] dicyclomine 20 mg tablet 11-18 14:55: 24 Yes dicyclomin e 20 mg tablet TAKE 1 TABLET BY MOUTH EVERY 6 HOURS NEEDED [facility] chlorhexidi ne 0.12 % mouthwash 11-18 14:55: 24 Yes chlorhexid ine gluconate 0.12 % mouthwash USE TWICE DAILY [facility] busPIRone 5 mg tablet 11-18 14:55: 24 Yes buspirone 5 mg tablet [facility] ARIPiprazol e 5 mg tablet 11-18 14:55: 24 Yes aripiprazo le 5 mg tablet [facility] iron-FA-dha -epa-FAD-NA DH-be-mv (ENLYTE) 1.5 mg iron- 8.73 mg CpID 11-18 14:55: 24 Yes EnLyte 1.5 mg iron-8.73 mg capsule,im mediate - delay release [facility] predniSONE 20 mg tablet 11-18 14:55: 24 Yes prednisone 20 mg tablet [facility] prazosin 1 mg capsule 11-18 14:55: 24 Yes prazosin 1 mg capsule [facility] ondansetron 4 mg tablet 11-18 14:55: 24 Yes ondansetro n HCl 4 mg tablet TAKE 1 TABLET BY MOUTH EVERY 12 HOURS NEEDED [facility] ondansetron 4 mg disintegrat ing tablet 11-18 14:55: 24 Yes ondansetro n 4 mg disintegra ting tablet [facility] lurasidone 20 mg tablet 11-18 14:55: 24 Yes Latuda 20 mg tablet [facility] Sodium Fluoride, Dental Gel, 1.1 % Crea 11-18 14:55: 24 Yes Denta 5000 Plus 1.1 % cream USE TWICE A DAY IN THE MORNING AND AT NIGHT. DO NOT EAT OR DRINK FOR AT LEAST 30 MINS [facility] fluconazole 200 mg tablet 11-18 14:55: 24 Yes fluconazol e 200 mg tablet [facility] escitalopra m oxalate 20 mg tablet 11-18 14:55: 24 Yes escitalopr am 20 mg tablet [facility] diphenoxyla te-atropine 2.5-0.025 mg tablet 11-18 14:55: 24 Yes diphenoxyl ate-atropi ne 2.5 mg-0.025 mg tablet [facility] dicyclomine 20 mg tablet 11-18 14:55: 24 Yes dicyclomin e 20 mg tablet TAKE 1 TABLET BY MOUTH EVERY 6 HOURS NEEDED [facility] chlorhexidi ne 0.12 % mouthwash 11-18 14:55: 24 Yes chlorhexid ine gluconate 0.12 % mouthwash USE TWICE DAILY [facility] busPIRone 5 mg tablet 11-18 14:55: 24 Yes buspirone 5 mg tablet [facility] ARIPiprazol e 5 mg tablet 11-18 14:55: 24 Yes aripiprazo le 5 mg tablet [facility] iron-FA-dha -epa-FAD-NA DH-be-mv (ENLYTE) 1.5 mg iron- 8.73 mg CpID 11-18 14:55: 24 Yes EnLyte 1.5 mg iron-8.73 mg capsule,im mediate - delay release [facility] predniSONE 20 mg tablet 11-18 14:55: 24 Yes prednisone 20 mg tablet [facility] prazosin 1 mg capsule 11-18 14:55: 24 Yes prazosin 1 mg capsule [facility] ondansetron 4 mg tablet 11-18 14:55: 24 Yes ondansetro n HCl 4 mg tablet TAKE 1 TABLET BY MOUTH EVERY 12 HOURS NEEDED [facility] ondansetron 4 mg disintegrat ing tablet 11-18 14:55: 24 Yes ondansetro n 4 mg disintegra ting tablet [facility] lurasidone 20 mg tablet 11-18 14:55: 24 Yes Latuda 20 mg tablet [facility] Sodium Fluoride, Dental Gel, 1.1 % Crea 11-18 14:55: 24 Yes Denta 5000 Plus 1.1 % cream USE TWICE A DAY IN THE MORNING AND AT NIGHT. DO NOT EAT OR DRINK FOR AT LEAST 30 MINS [facility] fluconazole 200 mg tablet 11-18 14:55: 24 Yes fluconazol e 200 mg tablet [facility] escitalopra m oxalate 20 mg tablet 11-18 14:55: 24 Yes escitalopr am 20 mg tablet [facility] diphenoxyla te-atropine 2.5-0.025 mg tablet 11-18 14:55: 24 Yes diphenoxyl ate-atropi ne 2.5 mg-0.025 mg tablet [facility] dicyclomine 20 mg tablet 11-18 14:55: 24 Yes dicyclomin e 20 mg tablet TAKE 1 TABLET BY MOUTH EVERY 6 HOURS NEEDED [facility] chlorhexidi ne 0.12 % mouthwash 11-18 14:55: 24 Yes chlorhexid ine gluconate 0.12 % mouthwash USE TWICE DAILY [facility] busPIRone 5 mg tablet 11-18 14:55: 24 Yes buspirone 5 mg tablet [facility] ARIPiprazol e 5 mg tablet 11-18 14:55: 24 Yes aripiprazo le 5 mg tablet [facility] iron-FA-dha -epa-FAD-NA DH-be-mv (ENLYTE) 1.5 mg iron- 8.73 mg CpID 11-18 14:55: 24 Yes EnLyte 1.5 mg iron-8.73 mg capsule,im mediate - delay release [facility] predniSONE 20 mg tablet 11-18 14:55: 24 Yes prednisone 20 mg tablet [facility] prazosin 1 mg capsule 11-18 14:55: 24 Yes prazosin 1 mg capsule [facility] ondansetron 4 mg tablet 11-18 14:55: 24 Yes ondansetro n HCl 4 mg tablet TAKE 1 TABLET BY MOUTH EVERY 12 HOURS NEEDED [facility] ondansetron 4 mg disintegrat ing tablet 11-18 14:55: 24 Yes ondansetro n 4 mg disintegra ting tablet [facility] lurasidone 20 mg tablet 11-18 14:55: 24 Yes Latuda 20 mg tablet [facility] Sodium Fluoride, Dental Gel, 1.1 % Crea 11-18 14:55: 24 Yes Denta 5000 Plus 1.1 % cream USE TWICE A DAY IN THE MORNING AND AT NIGHT. DO NOT EAT OR DRINK FOR AT LEAST 30 MINS [facility] fluconazole 200 mg tablet 11-18 14:55: 24 Yes fluconazol e 200 mg tablet [facility] escitalopra m oxalate 20 mg tablet 11-18 14:55: 24 Yes escitalopr am 20 mg tablet [facility] diphenoxyla te-atropine 2.5-0.025 mg tablet 11-18 14:55: 24 Yes diphenoxyl ate-atropi ne 2.5 mg-0.025 mg tablet [facility] dicyclomine 20 mg tablet 11-18 14:55: 24 Yes dicyclomin e 20 mg tablet TAKE 1 TABLET BY MOUTH EVERY 6 HOURS NEEDED [facility] chlorhexidi ne 0.12 % mouthwash 11-18 14:55: 24 Yes chlorhexid ine gluconate 0.12 % mouthwash USE TWICE DAILY [facility] busPIRone 5 mg tablet 11-18 14:55: 24 Yes buspirone 5 mg tablet [facility] ARIPiprazol e 5 mg tablet 11-18 14:55: 24 Yes aripiprazo le 5 mg tablet [facility] iron-FA-dha -epa-FAD-NA DH-be-mv (ENLYTE) 1.5 mg iron- 8.73 mg CpID 11-18 14:55: 24 Yes EnLyte 1.5 mg iron-8.73 mg capsule,im mediate - delay release [facility] predniSONE 20 mg tablet 11-18 14:55: 24 Yes prednisone 20 mg tablet [facility] prazosin 1 mg capsule 11-18 14:55: 24 Yes prazosin 1 mg capsule [facility] ondansetron 4 mg tablet 11-18 14:55: 24 Yes ondansetro n HCl 4 mg tablet TAKE 1 TABLET BY MOUTH EVERY 12 HOURS NEEDED [facility] ondansetron 4 mg disintegrat ing tablet 11-18 14:55: 24 Yes ondansetro n 4 mg disintegra ting tablet [facility] lurasidone 20 mg tablet 11-18 14:55: 24 Yes Latuda 20 mg tablet [facility] Sodium Fluoride, Dental Gel, 1.1 % Crea 11-18 14:55: 24 Yes Denta 5000 Plus 1.1 % cream USE TWICE A DAY IN THE MORNING AND AT NIGHT. DO NOT EAT OR DRINK FOR AT LEAST 30 MINS [facility] fluconazole 200 mg tablet 11-18 14:55: 24 Yes fluconazol e 200 mg tablet [facility] escitalopra m oxalate 20 mg tablet 11-18 14:55: 24 Yes escitalopr am 20 mg tablet [facility] diphenoxyla te-atropine 2.5-0.025 mg tablet 11-18 14:55: 24 Yes diphenoxyl ate-atropi ne 2.5 mg-0.025 mg tablet [facility] dicyclomine 20 mg tablet 11-18 14:55: 24 Yes dicyclomin e 20 mg tablet TAKE 1 TABLET BY MOUTH EVERY 6 HOURS NEEDED [facility] chlorhexidi ne 0.12 % mouthwash 11-18 14:55: 24 Yes chlorhexid ine gluconate 0.12 % mouthwash USE TWICE DAILY [facility] busPIRone 5 mg tablet 11-18 14:55: 24 Yes buspirone 5 mg tablet [facility] [facility] ARIPiprazol e 5 mg tablet 11-18 14:55: 24 Yes aripiprazo le 5 mg tablet [facility] iron-FA-dha -epa-FAD-NA DH-be-mv (ENLYTE) 1.5 mg iron- 8.73 mg CpID 11-18 14:55: 24 Yes EnLyte 1.5 mg iron-8.73 mg capsule,im mediate - delay release [facility] predniSONE 20 mg tablet 11-18 14:55: 24 Yes prednisone 20 mg tablet [facility] prazosin 1 mg capsule 11-18 14:55: 24 Yes prazosin 1 mg capsule [facility] ondansetron 4 mg tablet 11-18 14:55: 24 Yes ondansetro n HCl 4 mg tablet TAKE 1 TABLET BY MOUTH EVERY 12 HOURS NEEDED [facility] ondansetron 4 mg disintegrat ing tablet 11-18 14:55: 24 Yes ondansetro n 4 mg disintegra ting tablet [facility] lurasidone 20 mg tablet 11-18 14:55: 24 Yes Latuda 20 mg tablet [facility] Sodium Fluoride, Dental Gel, 1.1 % Crea 11-18 14:55: 24 Yes Denta 5000 Plus 1.1 % cream USE TWICE A DAY IN THE MORNING AND AT NIGHT. DO NOT EAT OR DRINK FOR AT LEAST 30 MINS [facility] fluconazole 200 mg tablet 11-18 14:55: 24 Yes fluconazol e 200 mg tablet [facility] escitalopra m oxalate 20 mg tablet 11-18 14:55: 24 Yes escitalopr am 20 mg tablet [facility] diphenoxyla te-atropine 2.5-0.025 mg tablet 11-18 14:55: 24 Yes diphenoxyl ate-atropi ne 2.5 mg-0.025 mg tablet [facility] dicyclomine 20 mg tablet 11-18 14:55: 24 Yes dicyclomin e 20 mg tablet TAKE 1 TABLET BY MOUTH EVERY 6 HOURS NEEDED [facility] chlorhexidi ne 0.12 % mouthwash 11-18 14:55: 24 Yes chlorhexid ine gluconate 0.12 % mouthwash USE TWICE DAILY [facility] busPIRone 5 mg tablet 11-18 14:55: 24 Yes buspirone 5 mg tablet [facility] ARIPiprazol e 5 mg tablet 11-18 14:55: 24 Yes aripiprazo le 5 mg tablet [facility] iron-FA-dha -epa-FAD-NA DH-be-mv (ENLYTE) 1.5 mg iron- 8.73 mg CpID 11-18 14:55: 24 Yes EnLyte 1.5 mg iron-8.73 mg capsule,im mediate - delay release [facility] predniSONE 20 mg tablet 11-18 14:55: 24 Yes prednisone 20 mg tablet [facility] prazosin 1 mg capsule 11-18 14:55: 24 Yes prazosin 1 mg capsule [facility] ondansetron 4 mg tablet 11-18 14:55: 24 Yes ondansetro n HCl 4 mg tablet TAKE 1 TABLET BY MOUTH EVERY 12 HOURS NEEDED [facility] ondansetron 4 mg disintegrat ing tablet 11-18 14:55: 24 Yes ondansetro n 4 mg disintegra ting tablet [facility] lurasidone 20 mg tablet 11-18 14:55: 24 Yes Latuda 20 mg tablet [facility] Sodium Fluoride, Dental Gel, 1.1 % Crea 11-18 14:55: 24 Yes Denta 5000 Plus 1.1 % cream USE TWICE A DAY IN THE MORNING AND AT NIGHT. DO NOT EAT OR DRINK FOR AT LEAST 30 MINS [facility] fluconazole 200 mg tablet 11-18 14:55: 24 Yes fluconazol e 200 mg tablet [facility] escitalopra m oxalate 20 mg tablet 11-18 14:55: 24 Yes escitalopr am 20 mg tablet [facility] diphenoxyla te-atropine 2.5-0.025 mg tablet 11-18 14:55: 24 Yes diphenoxyl ate-atropi ne 2.5 mg-0.025 mg tablet [facility] dicyclomine 20 mg tablet 11-18 14:55: 24 Yes dicyclomin e 20 mg tablet TAKE 1 TABLET BY MOUTH EVERY 6 HOURS NEEDED [facility] chlorhexidi ne 0.12 % mouthwash 11-18 14:55: 24 Yes chlorhexid ine gluconate 0.12 % mouthwash USE TWICE DAILY [facility] busPIRone 5 mg tablet 11-18 14:55: 24 Yes buspirone 5 mg tablet [facility] ARIPiprazol e 5 mg tablet 11-18 14:55: 24 Yes aripiprazo le 5 mg tablet [facility] iron-FA-dha -epa-FAD-NA DH-be-mv (ENLYTE) 1.5 mg iron- 8.73 mg CpID 11-18 14:55: 24 Yes EnLyte 1.5 mg iron-8.73 mg capsule,im mediate - delay release [facility] predniSONE 20 mg tablet 11-18 14:55: 24 Yes prednisone 20 mg tablet [facility] prazosin 1 mg capsule 11-18 14:55: 24 Yes prazosin 1 mg capsule [facility] ondansetron 4 mg tablet 11-18 14:55: 24 Yes ondansetro n HCl 4 mg tablet TAKE 1 TABLET BY MOUTH EVERY 12 HOURS NEEDED [facility] ondansetron 4 mg disintegrat ing tablet 11-18 14:55: 24 Yes ondansetro n 4 mg disintegra ting tablet [facility] lurasidone 20 mg tablet 11-18 14:55: 24 Yes Latuda 20 mg tablet [facility] Sodium Fluoride, Dental Gel, 1.1 % Crea 11-18 14:55: 24 Yes Denta 5000 Plus 1.1 % cream USE TWICE A DAY IN THE MORNING AND AT NIGHT. DO NOT EAT OR DRINK FOR AT LEAST 30 MINS [facility] fluconazole 200 mg tablet 11-18 14:55: 24 Yes fluconazol e 200 mg tablet [facility] escitalopra m oxalate 20 mg tablet 11-18 14:55: 24 Yes escitalopr am 20 mg tablet [facility] diphenoxyla te-atropine 2.5-0.025 mg tablet 11-18 14:55: 24 Yes diphenoxyl ate-atropi ne 2.5 mg-0.025 mg tablet [facility] dicyclomine 20 mg tablet 11-18 14:55: 24 Yes dicyclomin e 20 mg tablet TAKE 1 TABLET BY MOUTH EVERY 6 HOURS NEEDED [facility] chlorhexidi ne 0.12 % mouthwash 11-18 14:55: 24 Yes chlorhexid ine gluconate 0.12 % mouthwash USE TWICE DAILY [facility] busPIRone 5 mg tablet 11-18 14:55: 24 Yes buspirone 5 mg tablet [facility] ARIPiprazol e 5 mg tablet 11-18 14:55: 24 Yes aripiprazo le 5 mg tablet [facility] iron-FA-dha -epa-FAD-NA DH-be-mv (ENLYTE) 1.5 mg iron- 8.73 mg CpID 11-18 14:55: 24 Yes EnLyte 1.5 mg iron-8.73 mg capsule,im mediate - delay release [facility] predniSONE 20 mg tablet 11-18 14:55: 24 Yes prednisone 20 mg tablet [facility] prazosin 1 mg capsule 11-18 14:55: 24 Yes prazosin 1 mg capsule [facility] ondansetron 4 mg tablet 11-18 14:55: 24 Yes ondansetro n HCl 4 mg tablet TAKE 1 TABLET BY MOUTH EVERY 12 HOURS NEEDED [facility] ondansetron 4 mg disintegrat ing tablet 11-18 14:55: 24 Yes ondansetro n 4 mg disintegra ting tablet [facility] lurasidone 20 mg tablet 11-18 14:55: 24 Yes Latuda 20 mg tablet [facility] Sodium Fluoride, Dental Gel, 1.1 % Crea 11-18 14:55: 24 Yes Denta 5000 Plus 1.1 % cream USE TWICE A DAY IN THE MORNING AND AT NIGHT. DO NOT EAT OR DRINK FOR AT LEAST 30 MINS [facility] fluconazole 200 mg tablet 11-18 14:55: 24 Yes fluconazol e 200 mg tablet [facility] escitalopra m oxalate 20 mg tablet 11-18 14:55: 24 Yes escitalopr am 20 mg tablet [facility] diphenoxyla te-atropine 2.5-0.025 mg tablet 11-18 14:55: 24 Yes diphenoxyl ate-atropi ne 2.5 mg-0.025 mg tablet [facility] dicyclomine 20 mg tablet 11-18 14:55: 24 Yes dicyclomin e 20 mg tablet TAKE 1 TABLET BY MOUTH EVERY 6 HOURS NEEDED [facility] chlorhexidi ne 0.12 % mouthwash 11-18 14:55: 24 Yes chlorhexid ine gluconate 0.12 % mouthwash USE TWICE DAILY [facility] busPIRone 5 mg tablet 11-18 14:55: 24 Yes buspirone 5 mg tablet [facility] ARIPiprazol e 5 mg tablet 11-18 14:55: 24 Yes aripiprazo le 5 mg tablet [facility] iron-FA-dha -epa-FAD-NA DH-be-mv (ENLYTE) 1.5 mg iron- 8.73 mg CpID 11-18 14:55: 24 Yes EnLyte 1.5 mg iron-8.73 mg capsule,im mediate - delay release [facility] predniSONE 20 mg tablet 11-18 14:55: 24 Yes prednisone 20 mg tablet [facility] prazosin 1 mg capsule 11-18 14:55: 24 Yes prazosin 1 mg capsule [facility] ondansetron 4 mg tablet 11-18 14:55: 24 Yes ondansetro n HCl 4 mg tablet TAKE 1 TABLET BY MOUTH EVERY 12 HOURS NEEDED [facility] ondansetron 4 mg disintegrat ing tablet 11-18 14:55: 24 Yes ondansetro n 4 mg disintegra ting tablet [facility] lurasidone 20 mg tablet 11-18 14:55: 24 Yes Latuda 20 mg tablet [facility] Sodium Fluoride, Dental Gel, 1.1 % Crea 11-18 14:55: 24 Yes Denta 5000 Plus 1.1 % cream USE TWICE A DAY IN THE MORNING AND AT NIGHT. DO NOT EAT OR DRINK FOR AT LEAST 30 MINS [facility] fluconazole 200 mg tablet 11-18 14:55: 24 Yes fluconazol e 200 mg tablet [facility] escitalopra m oxalate 20 mg tablet 11-18 14:55: 24 Yes escitalopr am 20 mg tablet [facility] diphenoxyla te-atropine 2.5-0.025 mg tablet 11-18 14:55: 24 Yes diphenoxyl ate-atropi ne 2.5 mg-0.025 mg tablet [facility] dicyclomine 20 mg tablet 11-18 14:55: 24 Yes dicyclomin e 20 mg tablet TAKE 1 TABLET BY MOUTH EVERY 6 HOURS NEEDED [facility] chlorhexidi ne 0.12 % mouthwash 11-18 14:55: 24 Yes chlorhexid ine gluconate 0.12 % mouthwash USE TWICE DAILY [facility] busPIRone 5 mg tablet 11-18 14:55: 24 Yes buspirone 5 mg tablet [facility] ARIPiprazol e 5 mg tablet 11-18 14:55: 24 Yes aripiprazo le 5 mg tablet [facility] iron-FA-dha -epa-FAD-NA DH-be-mv (ENLYTE) 1.5 mg iron- 8.73 mg CpID 11-18 14:55: 24 Yes EnLyte 1.5 mg iron-8.73 mg capsule,im mediate - delay release [facility] escitalopra m oxalate 20 mg tablet 11-18 14:55: 24 Yes escitalopr am 20 mg tablet [facility] dicyclomine 20 mg tablet 11-18 14:55: 24 Yes dicyclomin e 20 mg tablet TAKE 1 TABLET BY MOUTH EVERY 6 HOURS NEEDED [facility] busPIRone 5 mg tablet 11-18 14:55: 24 Yes buspirone 5 mg tablet [facility] ARIPiprazol e 5 mg tablet 11-18 14:55: 24 Yes aripiprazo le 5 mg tablet [facility] escitalopra m oxalate 20 mg tablet 11-18 14:55: 24 Yes escitalopr am 20 mg tablet [facility] dicyclomine 20 mg tablet 11-18 14:55: 24 Yes dicyclomin e 20 mg tablet TAKE 1 TABLET BY MOUTH EVERY 6 HOURS NEEDED [facility] busPIRone 5 mg tablet 11-18 14:55: 24 Yes buspirone 5 mg tablet [facility] ARIPiprazol e 5 mg tablet 11-18 14:55: 24 Yes aripiprazo le 5 mg tablet [facility] escitalopra m oxalate 20 mg tablet 11-18 14:55: 24 Yes escitalopr am 20 mg tablet [facility] dicyclomine 20 mg tablet 11-18 14:55: 24 Yes dicyclomin e 20 mg tablet TAKE 1 TABLET BY MOUTH EVERY 6 HOURS NEEDED [facility] busPIRone 5 mg tablet 11-18 14:55: 24 Yes buspirone 5 mg tablet [facility] ARIPiprazol e 5 mg tablet 11-18 14:55: 24 Yes aripiprazo le 5 mg tablet [facility] [place] miSOPROStoL 200 mcg tablet 11-18 00:00: 00 Yes [id number] Take one tablet night before procedure, then take one tablet morning of procedure [facility] [place] miSOPROStoL 200 mcg tablet 11-18 00:00: 00 Yes [id number] Take one tablet night before procedure, then take one tablet morning of procedure [facility] miSOPROStoL 200 mcg tablet 11-18 00:00: 00 Yes [id number] Take one tablet night before procedure, then take one tablet morning of procedure [facility] miSOPROStoL 200 mcg tablet 11-18 00:00: 00 Yes [id number] Take one tablet night before procedure, then take one tablet morning of procedure [facility] miSOPROStoL 200 mcg tablet 11-18 00:00: 00 Yes [id number] Take one tablet night before procedure, then take one tablet morning of procedure [facility] miSOPROStoL 200 mcg tablet 11-18 00:00: 00 Yes [id number] Take one tablet night before procedure, then take one tablet morning of procedure [facility] miSOPROStoL 200 mcg tablet 11-18 00:00: 00 Yes [id number] Take one tablet night before procedure, then take one tablet morning of procedure [facility] [place] miSOPROStoL 200 mcg tablet 11-18 00:00: 00 Yes [id number] Take one tablet night before procedure, then take one tablet morning of procedure [facility] miSOPROStoL 200 mcg tablet 11-18 00:00: 00 Yes [id number] Take one tablet night before procedure, then take one tablet morning of procedure [facility] miSOPROStoL 200 mcg tablet 11-18 00:00: 00 Yes [id number] Take one tablet night before procedure, then take one tablet morning of procedure [facility] miSOPROStoL 200 mcg tablet 11-18 00:00: 00 Yes [id number] Take one tablet night before procedure, then take one tablet morning of procedure [facility] miSOPROStoL 200 mcg tablet 11-18 00:00: 00 Yes [id number] Take one tablet night before procedure, then take one tablet morning of procedure [facility] miSOPROStoL 200 mcg tablet 11-18 00:00: 00 10-08 00:00 :00 No [id number] Take one tablet night before procedure, then take one tablet morning of procedure [facility] miSOPROStoL 200 mcg tablet 11-18 00:00: 00 10-08 00:00 :00 No [id number] Take one tablet night before procedure, then take one tablet morning of procedure [facility] miSOPROStoL 200 mcg tablet 11-18 00:00: 00 10-08 00:00 :00 No [id number] Take one tablet night before procedure, then take one tablet morning of procedure [facility] miSOPROStoL 200 mcg tablet 11-18 00:00: 00 10-08 00:00 :00 No [id number] Take one tablet night before procedure, then take one tablet morning of procedure [facility] miSOPROStoL 200 mcg tablet 11-18 00:00: 00 10-08 00:00 :00 No [id number] Take one tablet night before procedure, then take one tablet morning of procedure [facility] miSOPROStoL 200 mcg tablet 11-18 00:00: 00 10-08 00:00 :00 No [id number] Take one tablet night before procedure, then take one tablet morning of procedure [facility] medroxyPROG ESTERone (DEPO-PROVE RA) syringe 150 mg 2021-11 21:15: 00 08-26 20:14 :[id number] [facility] medroxyPROG ESTERone (DEPO-PROVE RA) syringe 150 mg 2021-11 21:15: 00 08-26 20:14 :00 No [id number] 150mg 150 mg, Intramuscu lar, ONCE, 1 dose, On Fri08/26/22 at 1615, Routine [facility] SUMAtriptan 50 mg tablet 07-03 15:26: 51 Yes sumatripta n 50 mg tablet [facility] sulfamethox azole-trime thoprim 800-160 mg per tablet 07-03 15:26: 51 Yes sulfametho xazole 800 mg-trimeth oprim 160 mg tablet [facility] predniSONE 20 mg tablet 07-03 15:26: 51 Yes prednisone 20 mg tablet [facility] prazosin 1 mg capsule 07-03 15:26: 51 Yes prazosin 1 mg capsule [facility] ondansetron 4 mg tablet 07-03 15:26: 51 Yes ondansetro n HCl 4 mg tablet TAKE 1 TABLET BY MOUTH EVERY 12 HOURS NEEDED [facility] ondansetron 4 mg disintegrat ing tablet 07-03 15:26: 51 Yes ondansetro n 4 mg disintegra ting tablet [facility] Nitrofurant oin&Nit. Macrocryst 100 mg capsule 07-03 15:26: 51 Yes nitrofuran toin monohydrat e/macrocry stals 100 mg capsule [facility] lurasidone 20 mg tablet 07-03 15:26: 51 Yes Latuda 20 mg tablet [facility] Sodium Fluoride, Dental Gel, 1.1 % Crea 07-03 15:26: 51 Yes Denta 5000 Plus 1.1 % cream USE TWICE A DAY IN THE MORNING AND AT NIGHT. DO NOT EAT OR DRINK FOR AT LEAST 30 MINS [facility] fluconazole 200 mg tablet 07-03 15:26: 51 Yes fluconazol e 200 mg tablet [facility] escitalopra m oxalate 20 mg tablet 07-03 15:26: 51 Yes escitalopr am 20 mg tablet [facility] doxylamine- pyridoxine, vit B6, 10-10 mg per tablet 07-03 15:26: 51 Yes Diclegis 10 mg-10 mg tablet,del ayed release TAKE 1 TABLET BY MOUTH THREE TIMES A DAY NEEDED AND 2 AT BEDTIME [facility] diphenoxyla te-atropine 2.5-0.025 mg tablet 07-03 15:26: 51 Yes diphenoxyl ate-atropi ne 2.5 mg-0.025 mg tablet [facility] dicyclomine 20 mg tablet 07-03 15:26: 51 Yes dicyclomin e 20 mg tablet TAKE 1 TABLET BY MOUTH EVERY 6 HOURS NEEDED [facility] clindamycin 300 mg capsule 07-03 15:26: 51 Yes clindamyci n HCl 300 mg capsule Take 1 capsule 3 times a day by oral route for 10 days. [facility] ciprofloxac in HCl 500 mg tablet 07-03 15:26: 51 Yes ciprofloxa monica 500 mg tablet [facility] chlorhexidi ne 0.12 % mouthwash 07-03 15:26: 51 Yes chlorhexid ine gluconate 0.12 % mouthwash USE TWICE DAILY [facility] cephALEXin 500 mg capsule 07-03 15:26: 51 Yes cephalexin 500 mg capsule [facility] busPIRone 5 mg tablet 07-03 15:26: 51 Yes buspirone 5 mg tablet [facility] azithromyci n 250 mg tablet 07-03 15:26: 51 Yes azithromyc in 250 mg tablet TAKE BY MOUTH 2 TABLETS TODAY THEN 1 TABLE DAILY FOR NEXT 4 DAYS [facility] ARIPiprazol e 5 mg tablet 07-03 15:26: 51 Yes aripiprazo le 5 mg tablet [facility] PNV 67-iron ps-folate no.1-dha (VITAFOL ULTRA) 29 mg iron- 1 mg-200 mg Cap 07-03 15:26: 51 Yes Vitafol Ultra 29 mg iron-1 mg-200 mg capsule [facility] norgestimat e-ethinyl estradioL 0.25-35 mg-mcg per tablet 07-03 15:26: 51 Yes Sprintec (28) 0.25 mg-35 mcg tablet TAKE 1 TABLET BY MOUTH EVERY DAY [facility] vit,calc76/ iron/folic (PRENATABS RX ORAL) 07-03 15:26: 51 Yes Prenatabs Rx 29 mg iron-1 mg tablet [facility] iron-FA-dha -epa-FAD-NA DH-be-mv (ENLYTE) 1.5 mg iron- 8.73 mg CpID 07-03 15:26: 51 Yes EnLyte 1.5 mg iron-8.73 mg capsule,im mediate - delay release [facility] PNV38/iron, crb,g/folic /dss/dha (CITRANATAL ASSURE ORAL) 07-03 15:26: 51 Yes CitraNatal Assure 35 mg iron-1 mg-50 mg-300 mg oral pack [facility] SUMAtriptan 50 mg tablet 07-03 15:26: 51 Yes sumatripta n 50 mg tablet [facility] sulfamethox azole-trime thoprim 800-160 mg per tablet 07-03 15:26: 51 Yes sulfametho xazole 800 mg-trimeth oprim 160 mg tablet [facility] predniSONE 20 mg tablet 07-03 15:26: 51 Yes prednisone 20 mg tablet [facility] prazosin 1 mg capsule 07-03 15:26: 51 Yes prazosin 1 mg capsule [facility] ondansetron 4 mg tablet 07-03 15:26: 51 Yes ondansetro n HCl 4 mg tablet TAKE 1 TABLET BY MOUTH EVERY 12 HOURS NEEDED [facility] ondansetron 4 mg disintegrat ing tablet 07-03 15:26: 51 Yes ondansetro n 4 mg disintegra ting tablet [facility] Nitrofurant oin&Nit. Macrocryst 100 mg capsule 07-03 15:26: 51 Yes nitrofuran toin monohydrat e/macrocry stals 100 mg capsule [facility] lurasidone 20 mg tablet 07-03 15:26: 51 Yes Latuda 20 mg tablet [facility] Sodium Fluoride, Dental Gel, 1.1 % Crea 07-03 15:26: 51 Yes Denta 5000 Plus 1.1 % cream USE TWICE A DAY IN THE MORNING AND AT NIGHT. DO NOT EAT OR DRINK FOR AT LEAST 30 MINS [facility] fluconazole 200 mg tablet 07-03 15:26: 51 Yes fluconazol e 200 mg tablet [facility] escitalopra m oxalate 20 mg tablet 07-03 15:26: 51 Yes escitalopr am 20 mg tablet [facility] doxylamine- pyridoxine, vit B6, 10-10 mg per tablet 07-03 15:26: 51 Yes Diclegis 10 mg-10 mg tablet,del ayed release TAKE 1 TABLET BY MOUTH THREE TIMES A DAY NEEDED AND 2 AT BEDTIME [facility] diphenoxyla te-atropine 2.5-0.025 mg tablet 07-03 15:26: 51 Yes diphenoxyl ate-atropi ne 2.5 mg-0.025 mg tablet [facility] dicyclomine 20 mg tablet 07-03 15:26: 51 Yes dicyclomin e 20 mg tablet TAKE 1 TABLET BY MOUTH EVERY 6 HOURS NEEDED [facility] clindamycin 300 mg capsule 07-03 15:26: 51 Yes clindamyci n HCl 300 mg capsule Take 1 capsule 3 times a day by oral route for 10 days. [facility] ciprofloxac in HCl 500 mg tablet 07-03 15:26: 51 Yes ciprofloxa monica 500 mg tablet [facility] chlorhexidi ne 0.12 % mouthwash 07-03 15:26: 51 Yes chlorhexid ine gluconate 0.12 % mouthwash USE TWICE DAILY [facility] cephALEXin 500 mg capsule 07-03 15:26: 51 Yes cephalexin 500 mg capsule [facility] busPIRone 5 mg tablet 07-03 15:26: 51 Yes buspirone 5 mg tablet [facility] azithromyci n 250 mg tablet 07-03 15:26: 51 Yes azithromyc in 250 mg tablet TAKE BY MOUTH 2 TABLETS TODAY THEN 1 TABLE DAILY FOR NEXT 4 DAYS [facility] ARIPiprazol e 5 mg tablet 07-03 15:26: 51 Yes aripiprazo le 5 mg tablet [facility] PNV 67-iron ps-folate no.1-dha (VITAFOL ULTRA) 29 mg iron- 1 mg-200 mg Cap 07-03 15:26: 51 Yes Vitafol Ultra 29 mg iron-1 mg-200 mg capsule [facility] norgestimat e-ethinyl estradioL 0.25-35 mg-mcg per tablet 07-03 15:26: 51 Yes Sprintec (28) 0.25 mg-35 mcg tablet TAKE 1 TABLET BY MOUTH EVERY DAY [facility] vit,calc76/ iron/folic (PRENATABS RX ORAL) 07-03 15:26: 51 Yes Prenatabs Rx 29 mg iron-1 mg tablet [facility] iron-FA-dha -epa-FAD-NA DH-be-mv (ENLYTE) 1.5 mg iron- 8.73 mg CpID 07-03 15:26: 51 Yes EnLyte 1.5 mg iron-8.73 mg capsule,im mediate - delay release [facility] PNV38/iron, crb,g/folic /dss/dha (CITRANATAL ASSURE ORAL) 07-03 15:26: 51 Yes CitraNatal Assure 35 mg iron-1 mg-50 mg-300 mg oral pack [facility] SUMAtriptan 50 mg tablet 07-03 15:26: 51 Yes sumatripta n 50 mg tablet [facility] sulfamethox azole-trime thoprim 800-160 mg per tablet 07-03 15:26: 51 Yes sulfametho xazole 800 mg-trimeth oprim 160 mg tablet [facility] predniSONE 20 mg tablet 07-03 15:26: 51 Yes prednisone 20 mg tablet [facility] prazosin 1 mg capsule 07-03 15:26: 51 Yes prazosin 1 mg capsule [facility] ondansetron 4 mg tablet 07-03 15:26: 51 Yes ondansetro n HCl 4 mg tablet TAKE 1 TABLET BY MOUTH EVERY 12 HOURS NEEDED [facility] ondansetron 4 mg disintegrat ing tablet 07-03 15:26: 51 Yes ondansetro n 4 mg disintegra ting tablet [facility] Nitrofurant oin&Nit. Macrocryst 100 mg capsule 07-03 15:26: 51 Yes nitrofuran toin monohydrat e/macrocry stals 100 mg capsule [facility] lurasidone 20 mg tablet 07-03 15:26: 51 Yes Latuda 20 mg tablet [facility] Sodium Fluoride, Dental Gel, 1.1 % Crea 07-03 15:26: 51 Yes Denta 5000 Plus 1.1 % cream USE TWICE A DAY IN THE MORNING AND AT NIGHT. DO NOT EAT OR DRINK FOR AT LEAST 30 MINS [facility] fluconazole 200 mg tablet 07-03 15:26: 51 Yes fluconazol e 200 mg tablet [facility] escitalopra m oxalate 20 mg tablet 07-03 15:26: 51 Yes escitalopr am 20 mg tablet [facility] doxylamine- pyridoxine, vit B6, 10-10 mg per tablet 07-03 15:26: 51 Yes Diclegis 10 mg-10 mg tablet,del ayed release TAKE 1 TABLET BY MOUTH THREE TIMES A DAY NEEDED AND 2 AT BEDTIME [facility] diphenoxyla te-atropine 2.5-0.025 mg tablet 07-03 15:26: 51 Yes diphenoxyl ate-atropi ne 2.5 mg-0.025 mg tablet [facility] dicyclomine 20 mg tablet 07-03 15:26: 51 Yes dicyclomin e 20 mg tablet TAKE 1 TABLET BY MOUTH EVERY 6 HOURS NEEDED [facility] clindamycin 300 mg capsule 07-03 15:26: 51 Yes clindamyci n HCl 300 mg capsule Take 1 capsule 3 times a day by oral route for 10 days. [facility] ciprofloxac in HCl 500 mg tablet 07-03 15:26: 52 Yes ciprofloxa monica 500 mg tablet [facility] chlorhexidi ne 0.12 % mouthwash 07-03 15:26: 51 Yes chlorhexid ine gluconate 0.12 % mouthwash USE TWICE DAILY [facility] cephALEXin 500 mg capsule 07-03 15:26: 51 Yes cephalexin 500 mg capsule [facility] busPIRone 5 mg tablet 07-03 15:26: 52 Yes buspirone 5 mg tablet [facility] azithromyci n 250 mg tablet 07-03 15:26: 52 Yes azithromyc in 250 mg tablet TAKE BY MOUTH 2 TABLETS TODAY THEN 1 TABLE DAILY FOR NEXT 4 DAYS [facility] ARIPiprazol e 5 mg tablet 07-03 15:26: 52 Yes aripiprazo le 5 mg tablet [facility] PNV 67-iron ps-folate no.1-dha (VITAFOL ULTRA) 29 mg iron- 1 mg-200 mg Cap 07-03 15:26: 52 Yes Vitafol Ultra 29 mg iron-1 mg-200 mg capsule [facility] norgestimat e-ethinyl estradioL 0.25-35 mg-mcg per tablet 07-03 15:26: 52 Yes Sprintec (28) 0.25 mg-35 mcg tablet TAKE 1 TABLET BY MOUTH EVERY DAY [facility] vit,calc76/ iron/folic (PRENATABS RX ORAL) 07-03 15:26: 52 Yes Prenatabs Rx 29 mg iron-1 mg tablet [facility] iron-FA-dha -epa-FAD-NA DH-be-mv (ENLYTE) 1.5 mg iron- 8.73 mg CpID 07-03 15:26: 52 Yes EnLyte 1.5 mg iron-8.73 mg capsule,im mediate - delay release [facility] PNV38/iron, crb,g/folic /dss/dha (CITRANATAL ASSURE ORAL) 07-03 15:26: 52 Yes CitraNatal Assure 35 mg iron-1 mg-50 mg-300 mg oral pack [facility] SUMAtriptan 50 mg tablet 07-03 15:26: 51 Yes sumatripta n 50 mg tablet [facility] sulfamethox azole-trime thoprim 800-160 mg per tablet 07-03 15:26: 51 Yes sulfametho xazole 800 mg-trimeth oprim 160 mg tablet [facility] predniSONE 20 mg tablet 07-03 15:26: 51 Yes prednisone 20 mg tablet [facility] prazosin 1 mg capsule 07-03 15:26: 51 Yes prazosin 1 mg capsule [facility] ondansetron 4 mg tablet 07-03 15:26: 51 Yes ondansetro n HCl 4 mg tablet TAKE 1 TABLET BY MOUTH EVERY 12 HOURS NEEDED [facility] ondansetron 4 mg disintegrat ing tablet 07-03 15:26: 51 Yes ondansetro n 4 mg disintegra ting tablet [facility] Nitrofurant oin&Nit. Macrocryst 100 mg capsule 07-03 15:26: 51 Yes nitrofuran toin monohydrat e/macrocry stals 100 mg capsule [facility] lurasidone 20 mg tablet 07-03 15:26: 51 Yes Latuda 20 mg tablet [facility] Sodium Fluoride, Dental Gel, 1.1 % Crea 07-03 15:26: 51 Yes Denta 5000 Plus 1.1 % cream USE TWICE A DAY IN THE MORNING AND AT NIGHT. DO NOT EAT OR DRINK FOR AT LEAST 30 MINS [facility] fluconazole 200 mg tablet 07-03 15:26: 51 Yes fluconazol e 200 mg tablet [facility] escitalopra m oxalate 20 mg tablet 07-03 15:26: 51 Yes escitalopr am 20 mg tablet [facility] doxylamine- pyridoxine, vit B6, 10-10 mg per tablet 07-03 15:26: 51 Yes Diclegis 10 mg-10 mg tablet,del ayed release TAKE 1 TABLET BY MOUTH THREE TIMES A DAY NEEDED AND 2 AT BEDTIME [facility] diphenoxyla te-atropine 2.5-0.025 mg tablet 07-03 15:26: 51 Yes diphenoxyl ate-atropi ne 2.5 mg-0.025 mg tablet [facility] dicyclomine 20 mg tablet 07-03 15:26: 51 Yes dicyclomin e 20 mg tablet TAKE 1 TABLET BY MOUTH EVERY 6 HOURS NEEDED [facility] clindamycin 300 mg capsule 07-03 15:26: 51 Yes clindamyci n HCl 300 mg capsule Take 1 capsule 3 times a day by oral route for 10 days. [facility] ciprofloxac in HCl 500 mg tablet 07-03 15:26: 51 Yes ciprofloxa monica 500 mg tablet [facility] chlorhexidi ne 0.12 % mouthwash 07-03 15:26: 51 Yes chlorhexid ine gluconate 0.12 % mouthwash USE TWICE DAILY [facility] cephALEXin 500 mg capsule 07-03 15:26: 51 Yes cephalexin 500 mg capsule [facility] busPIRone 5 mg tablet 07-03 15:26: 51 Yes buspirone 5 mg tablet [facility] azithromyci n 250 mg tablet 07-03 15:26: 51 Yes azithromyc in 250 mg tablet TAKE BY MOUTH 2 TABLETS TODAY THEN 1 TABLE DAILY FOR NEXT 4 DAYS [facility] ARIPiprazol e 5 mg tablet 07-03 15:26: 51 Yes aripiprazo le 5 mg tablet [facility] PNV 67-iron ps-folate no.1-dha (VITAFOL ULTRA) 29 mg iron- 1 mg-200 mg Cap 07-03 15:26: 51 Yes Vitafol Ultra 29 mg iron-1 mg-200 mg capsule [facility] norgestimat e-ethinyl estradioL 0.25-35 mg-mcg per tablet 07-03 15:26: 52 Yes Sprintec (28) 0.25 mg-35 mcg tablet TAKE 1 TABLET BY MOUTH EVERY DAY [facility] vit,calc76/ iron/folic (PRENATABS RX ORAL) 07-03 15:26: 51 Yes Prenatabs Rx 29 mg iron-1 mg tablet [facility] iron-FA-dha -epa-FAD-NA DH-be-mv (ENLYTE) 1.5 mg iron- 8.73 mg CpID 07-03 15:26: 51 Yes EnLyte 1.5 mg iron-8.73 mg capsule,im mediate - delay release [facility] PNV38/iron, crb,g/folic /dss/dha (CITRANATAL ASSURE ORAL) 07-03 15:26: 51 Yes CitraNatal Assure 35 mg iron-1 mg-50 mg-300 mg oral pack [facility] SUMAtriptan 50 mg tablet 07-03 15:26: 51 Yes sumatripta n 50 mg tablet [facility] sulfamethox azole-trime thoprim 800-160 mg per tablet 07-03 15:26: 51 Yes sulfametho xazole 800 mg-trimeth oprim 160 mg tablet [facility] predniSONE 20 mg tablet 07-03 15:26: 51 Yes prednisone 20 mg tablet [facility] prazosin 1 mg capsule 07-03 15:26: 51 Yes prazosin 1 mg capsule [facility] ondansetron 4 mg tablet 07-03 15:26: 51 Yes ondansetro n HCl 4 mg tablet TAKE 1 TABLET BY MOUTH EVERY 12 HOURS NEEDED [facility] ondansetron 4 mg disintegrat ing tablet 07-03 15:26: 51 Yes ondansetro n 4 mg disintegra ting tablet [facility] Nitrofurant oin&Nit. Macrocryst 100 mg capsule 07-03 15:26: 51 Yes nitrofuran toin monohydrat e/macrocry stals 100 mg capsule [facility] lurasidone 20 mg tablet 07-03 15:26: 51 Yes Latuda 20 mg tablet [facility] Sodium Fluoride, Dental Gel, 1.1 % Crea 07-03 15:26: 51 Yes Denta 5000 Plus 1.1 % cream USE TWICE A DAY IN THE MORNING AND AT NIGHT. DO NOT EAT OR DRINK FOR AT LEAST 30 MINS [facility] fluconazole 200 mg tablet 07-03 15:26: 51 Yes fluconazol e 200 mg tablet [facility] escitalopra m oxalate 20 mg tablet 07-03 15:26: 51 Yes escitalopr am 20 mg tablet [facility] doxylamine- pyridoxine, vit B6, 10-10 mg per tablet 07-03 15:26: 51 Yes Diclegis 10 mg-10 mg tablet,del ayed release TAKE 1 TABLET BY MOUTH THREE TIMES A DAY NEEDED AND 2 AT BEDTIME [facility] diphenoxyla te-atropine 2.5-0.025 mg tablet 07-03 15:26: 51 Yes diphenoxyl ate-atropi ne 2.5 mg-0.025 mg tablet [facility] dicyclomine 20 mg tablet 07-03 15:26: 51 Yes dicyclomin e 20 mg tablet TAKE 1 TABLET BY MOUTH EVERY 6 HOURS NEEDED [facility] clindamycin 300 mg capsule 07-03 15:26: 51 Yes clindamyci n HCl 300 mg capsule Take 1 capsule 3 times a day by oral route for 10 days. [facility] ciprofloxac in HCl 500 mg tablet 07-03 15:26: 51 Yes ciprofloxa monica 500 mg tablet [facility] chlorhexidi ne 0.12 % mouthwash 07-03 15:26: 51 Yes chlorhexid ine gluconate 0.12 % mouthwash USE TWICE DAILY [facility] cephALEXin 500 mg capsule 07-03 15:26: 51 Yes cephalexin 500 mg capsule [facility] busPIRone 5 mg tablet 07-03 15:26: 51 Yes buspirone 5 mg tablet [facility] azithromyci n 250 mg tablet 07-03 15:26: 51 Yes azithromyc in 250 mg tablet TAKE BY MOUTH 2 TABLETS TODAY THEN 1 TABLE DAILY FOR NEXT 4 DAYS [facility] ARIPiprazol e 5 mg tablet 07-03 15:26: 51 Yes aripiprazo le 5 mg tablet [facility] PNV 67-iron ps-folate no.1-dha (VITAFOL ULTRA) 29 mg iron- 1 mg-200 mg Cap 07-03 15:26: 51 Yes Vitafol Ultra 29 mg iron-1 mg-200 mg capsule [facility] norgestimat e-ethinyl estradioL 0.25-35 mg-mcg per tablet 07-03 15:26: 51 Yes Sprintec (28) 0.25 mg-35 mcg tablet TAKE 1 TABLET BY MOUTH EVERY DAY [facility] vit,calc76/ iron/folic (PRENATABS RX ORAL) 07-03 15:26: 51 Yes Prenatabs Rx 29 mg iron-1 mg tablet [facility] iron-FA-dha -epa-FAD-NA DH-be-mv (ENLYTE) 1.5 mg iron- 8.73 mg CpID 07-03 15:26: 51 Yes EnLyte 1.5 mg iron-8.73 mg capsule,im mediate - delay release [facility] PNV38/iron, crb,g/folic /dss/dha (CITRANATAL ASSURE ORAL) 07-03 15:26: 51 Yes CitraNatal Assure 35 mg iron-1 mg-50 mg-300 mg oral pack [facility] SUMAtriptan 50 mg tablet 07-03 15:26: 51 Yes sumatripta n 50 mg tablet [facility] sulfamethox azole-trime thoprim 800-160 mg per tablet 07-03 15:26: 51 Yes sulfametho xazole 800 mg-trimeth oprim 160 mg tablet [facility] predniSONE 20 mg tablet 07-03 15:26: 51 Yes prednisone 20 mg tablet [facility] prazosin 1 mg capsule 07-03 15:26: 51 Yes prazosin 1 mg capsule [facility] ondansetron 4 mg tablet 07-03 15:26: 51 Yes ondansetro n HCl 4 mg tablet TAKE 1 TABLET BY MOUTH EVERY 12 HOURS NEEDED [facility] ondansetron 4 mg disintegrat ing tablet 07-03 15:26: 51 Yes ondansetro n 4 mg disintegra ting tablet [facility] Nitrofurant oin&Nit. Macrocryst 100 mg capsule 07-03 15:26: 51 Yes nitrofuran toin monohydrat e/macrocry stals 100 mg capsule [facility] lurasidone 20 mg tablet 07-03 15:26: 51 Yes Latuda 20 mg tablet [facility] Sodium Fluoride, Dental Gel, 1.1 % Crea 07-03 15:26: 51 Yes Denta 5000 Plus 1.1 % cream USE TWICE A DAY IN THE MORNING AND AT NIGHT. DO NOT EAT OR DRINK FOR AT LEAST 30 MINS [facility] fluconazole 200 mg tablet 07-03 15:26: 51 Yes fluconazol e 200 mg tablet [facility] escitalopra m oxalate 20 mg tablet 07-03 15:26: 51 Yes escitalopr am 20 mg tablet [facility] doxylamine- pyridoxine, vit B6, 10-10 mg per tablet 07-03 15:26: 51 Yes Diclegis 10 mg-10 mg tablet,del ayed release TAKE 1 TABLET BY MOUTH THREE TIMES A DAY NEEDED AND 2 AT BEDTIME [facility] diphenoxyla te-atropine 2.5-0.025 mg tablet 07-03 15:26: 51 Yes diphenoxyl ate-atropi ne 2.5 mg-0.025 mg tablet [facility] dicyclomine 20 mg tablet 07-03 15:26: 51 Yes dicyclomin e 20 mg tablet TAKE 1 TABLET BY MOUTH EVERY 6 HOURS NEEDED [facility] clindamycin 300 mg capsule 07-03 15:26: 51 Yes clindamyci n HCl 300 mg capsule Take 1 capsule 3 times a day by oral route for 10 days. [facility] ciprofloxac in HCl 500 mg tablet 07-03 15:26: 51 Yes ciprofloxa monica 500 mg tablet [facility] chlorhexidi ne 0.12 % mouthwash 07-03 15:26: 51 Yes chlorhexid ine gluconate 0.12 % mouthwash USE TWICE DAILY [facility] cephALEXin 500 mg capsule 07-03 15:26: 51 Yes cephalexin 500 mg capsule [facility] busPIRone 5 mg tablet 07-03 15:26: 51 Yes buspirone 5 mg tablet [facility] azithromyci n 250 mg tablet 07-03 15:26: 51 Yes azithromyc in 250 mg tablet TAKE BY MOUTH 2 TABLETS TODAY THEN 1 TABLE DAILY FOR NEXT 4 DAYS [facility] ARIPiprazol e 5 mg tablet 07-03 15:26: 51 Yes aripiprazo le 5 mg tablet [facility] PNV 67-iron ps-folate no.1-dha (VITAFOL ULTRA) 29 mg iron- 1 mg-200 mg Cap 07-03 15:26: 51 Yes Vitafol Ultra 29 mg iron-1 mg-200 mg capsule [facility] norgestimat e-ethinyl estradioL 0.25-35 mg-mcg per tablet 07-03 15:26: 51 Yes Sprintec (28) 0.25 mg-35 mcg tablet TAKE 1 TABLET BY MOUTH EVERY DAY [facility] vit,calc76/ iron/folic (PRENATABS RX ORAL) 07-03 15:26: 51 Yes Prenatabs Rx 29 mg iron-1 mg tablet [facility] iron-FA-dha -epa-FAD-NA DH-be-mv (ENLYTE) 1.5 mg iron- 8.73 mg CpID 07-03 15:26: 51 Yes EnLyte 1.5 mg iron-8.73 mg capsule,im mediate - delay release [facility] PNV38/iron, crb,g/folic /dss/dha (CITRANATAL ASSURE ORAL) 07-03 15:26: 51 Yes CitraNatal Assure 35 mg iron-1 mg-50 mg-300 mg oral pack [facility] SUMAtriptan 50 mg tablet 07-03 15:26: 51 Yes sumatripta n 50 mg tablet [facility] sulfamethox azole-trime thoprim 800-160 mg per tablet 07-03 15:26: 51 Yes sulfametho xazole 800 mg-trimeth oprim 160 mg tablet [facility] predniSONE 20 mg tablet 07-03 15:26: 51 Yes prednisone 20 mg tablet [facility] prazosin 1 mg capsule 07-03 15:26: 51 Yes prazosin 1 mg capsule [facility] ondansetron 4 mg tablet 07-03 15:26: 51 Yes ondansetro n HCl 4 mg tablet TAKE 1 TABLET BY MOUTH EVERY 12 HOURS NEEDED [facility] ondansetron 4 mg disintegrat ing tablet 07-03 15:26: 51 Yes ondansetro n 4 mg disintegra ting tablet [facility] Nitrofurant oin&Nit. Macrocryst 100 mg capsule 07-03 15:26: 51 Yes nitrofuran toin monohydrat e/macrocry stals 100 mg capsule [facility] lurasidone 20 mg tablet 07-03 15:26: 51 Yes Latuda 20 mg tablet [facility] Sodium Fluoride, Dental Gel, 1.1 % Crea 07-03 15:26: 51 Yes Denta 5000 Plus 1.1 % cream USE TWICE A DAY IN THE MORNING AND AT NIGHT. DO NOT EAT OR DRINK FOR AT LEAST 30 MINS [facility] fluconazole 200 mg tablet 07-03 15:26: 51 Yes fluconazol e 200 mg tablet [facility] escitalopra m oxalate 20 mg tablet 07-03 15:26: 51 Yes escitalopr am 20 mg tablet [facility] doxylamine- pyridoxine, vit B6, 10-10 mg per tablet 07-03 15:26: 51 Yes Diclegis 10 mg-10 mg tablet,del ayed release TAKE 1 TABLET BY MOUTH THREE TIMES A DAY NEEDED AND 2 AT BEDTIME [facility] diphenoxyla te-atropine 2.5-0.025 mg tablet 07-03 15:26: 51 Yes diphenoxyl ate-atropi ne 2.5 mg-0.025 mg tablet [facility] dicyclomine 20 mg tablet 07-03 15:26: 51 Yes dicyclomin e 20 mg tablet TAKE 1 TABLET BY MOUTH EVERY 6 HOURS NEEDED [facility] clindamycin 300 mg capsule 07-03 15:26: 51 Yes clindamyci n HCl 300 mg capsule Take 1 capsule 3 times a day by oral route for 10 days. [facility] ciprofloxac in HCl 500 mg tablet 07-03 15:26: 51 Yes ciprofloxa monica 500 mg tablet [facility] chlorhexidi ne 0.12 % mouthwash 07-03 15:26: 51 Yes chlorhexid ine gluconate 0.12 % mouthwash USE TWICE DAILY [facility] cephALEXin 500 mg capsule 07-03 15:26: 51 Yes cephalexin 500 mg capsule [facility] busPIRone 5 mg tablet 07-03 15:26: 51 Yes buspirone 5 mg tablet [facility] azithromyci n 250 mg tablet 07-03 15:26: 51 Yes azithromyc in 250 mg tablet TAKE BY MOUTH 2 TABLETS TODAY THEN 1 TABLE DAILY FOR NEXT 4 DAYS [facility] ARIPiprazol e 5 mg tablet 07-03 15:26: 51 Yes aripiprazo le 5 mg tablet [facility] PNV 67-iron ps-folate no.1-dha (VITAFOL ULTRA) 29 mg iron- 1 mg-200 mg Cap 07-03 15:26: 51 Yes Vitafol Ultra 29 mg iron-1 mg-200 mg capsule [facility] norgestimat e-ethinyl estradioL 0.25-35 mg-mcg per tablet 07-03 15:26: 51 Yes Sprintec (28) 0.25 mg-35 mcg tablet TAKE 1 TABLET BY MOUTH EVERY DAY [facility] vit,calc76/ iron/folic (PRENATABS RX ORAL) 07-03 15:26: 51 Yes Prenatabs Rx 29 mg iron-1 mg tablet [facility] iron-FA-dha -epa-FAD-NA DH-be-mv (ENLYTE) 1.5 mg iron- 8.73 mg CpID 07-03 15:26: 51 Yes EnLyte 1.5 mg iron-8.73 mg capsule,im mediate - delay release [facility] PNV38/iron, crb,g/folic /dss/dha (CITRANATAL ASSURE ORAL) 07-03 15:26: 51 Yes CitraNatal Assure 35 mg iron-1 mg-50 mg-300 mg oral pack [facility] SUMAtriptan 50 mg tablet 07-03 15:26: 51 Yes sumatripta n 50 mg tablet [facility] SUMAtriptan 50 mg tablet 07-03 15:26: 51 Yes sumatripta n 50 mg tablet [facility] SUMAtriptan 50 mg tablet 07-03 15:26: 51 Yes sumatripta n 50 mg tablet [facility] SUMAtriptan 50 mg tablet 2021-0 07-03 15:26: 51 Yes sumatripta n 50 mg tablet [facility] SUMAtriptan 50 mg tablet 2021-0 07-03 15:26: 51 Yes sumatripta n 50 mg tablet [facility] SUMAtriptan 50 mg tablet 2021-0 07-03 15:26: 51 Yes sumatripta n 50 mg tablet [facility] QUEtiapine 100 mg tablet 0 03-05 00:00: 00 Yes [facility] FLUoxetine 40 mg capsule 0 03-05 00:00: 00 Yes [facility] QUEtiapine 100 mg tablet 0 03-05 00:00: 00 Yes [facility] FLUoxetine 40 mg capsule 2021-0 03-05 00:00: 00 Yes [facility] QUEtiapine 100 mg tablet 0 03-05 00:00: 00 Yes [facility] FLUoxetine 40 mg capsule 0 03-05 00:00: 00 Yes [facility] QUEtiapine 100 mg tablet 0 03-05 00:00: 00 Yes [facility] FLUoxetine 40 mg capsule 0 03-05 00:00: 00 Yes [facility] QUEtiapine 100 mg tablet 0 03-05 00:00: 00 Yes [facility] FLUoxetine 40 mg capsule 2021-0 03-05 00:00: 00 Yes [facility] QUEtiapine 100 mg tablet 0 03-05 00:00: 00 Yes [facility] FLUoxetine 40 mg capsule 0 03-05 00:00: 00 Yes [facility] QUEtiapine 100 mg tablet 0 03-05 00:00: 00 Yes [facility] FLUoxetine 40 mg capsule 0 03-05 00:00: 00 Yes [facility] QUEtiapine 100 mg tablet 2021-0 03-05 00:00: 00 Yes [facility] FLUoxetine 40 mg capsule 2-0 03-05 00:00: 00 Yes [facility] QUEtiapine 100 mg tablet 2021-0 03-05 00:00: 00 Yes [facility] FLUoxetine 40 mg capsule 2021-0 03-05 00:00: 00 Yes [facility] QUEtiapine 100 mg tablet 2-0 03-05 00:00: 00 Yes [facility] FLUoxetine 40 mg capsule 2021-0 03-05 00:00: 00 Yes [facility] QUEtiapine 100 mg tablet 2021-0 03-05 00:00: 00 Yes [facility] FLUoxetine 40 mg capsule 2021-0 03-05 00:00: 00 Yes [facility] QUEtiapine 100 mg tablet 2021-0 03-05 00:00: 00 Yes [facility] FLUoxetine 40 mg capsule 2021-0 03-05 00:00: 00 Yes [facility] QUEtiapine 100 mg tablet 2021-0 03-05 00:00: 00 Yes [facility] FLUoxetine 40 mg capsule 2021-0 03-05 00:00: 00 Yes [facility] QUEtiapine 100 mg tablet 2021-0 03-05 00:00: 00 Yes [facility] FLUoxetine 40 mg capsule 2021-0 03-05 00:00: 00 Yes [facility] QUEtiapine 100 mg tablet 2021-0 03-05 00:00: 00 Yes [facility] FLUoxetine 40 mg capsule 2-0 03-05 00:00: 00 Yes [facility] QUEtiapine 100 mg tablet 2021-0 03-05 00:00: 00 Yes [facility] FLUoxetine 40 mg capsule 2-0 03-05 00:00: 00 Yes [facility] QUEtiapine 100 mg tablet 2021-0 03-05 00:00: 00 Yes [facility] FLUoxetine 40 mg capsule 2021-0 03-05 00:00: 00 Yes [facility] QUEtiapine 100 mg tablet 2-0 03-05 00:00: 00 Yes [facility] FLUoxetine 40 mg capsule 0 03-05 00:00: 00 Yes [facility] QUEtiapine 100 mg tablet 0 03-05 00:00: 00 Yes [facility] FLUoxetine 40 mg capsule 0 03-05 00:00: 00 Yes [facility] FLUoxetine 40 mg capsule 0 03-05 00:00: 00 Yes [facility] FLUoxetine 40 mg capsule 0 03-05 00:00: 00 Yes [facility] FLUoxetine 40 mg capsule 0 03-05 00:00: 00 Yes [facility] QUEtiapine 100 mg tablet 0 03-05 00:00: 00 10-08 00:00 :00 No [facility] QUEtiapine 100 mg tablet 0 03-05 00:00: 00 10-08 00:00 :00 No [facility] QUEtiapine 100 mg tablet 0 03-05 00:00: 00 10-08 00:00 :00 No [facility] QUEtiapine 100 mg tablet 0 03-05 00:00: 00 10-08 00:00 :00 No [facility] FLUoxetine 40 mg capsule 0 03-05 00:00: 00 10-08 00:00 :00 No [facility] QUEtiapine 100 mg tablet 0 03-05 00:00: 00 10-08 00:00 :00 No [facility] FLUoxetine 40 mg capsule 0 03-05 00:00: 00 10-08 00:00 :00 No [facility] QUEtiapine 100 mg tablet 0 03-05 00:00: 00 10-08 00:00 :00 No [facility] FLUoxetine 40 mg capsule 0 03-05 00:00: 00 10-08 00:00 :00 No [facility] cetirizine 10 mg tablet 2021-0 02-25 00:00: 00 Yes 10mg Take 10 mg by mouth daily. [facility] cetirizine 10 mg tablet 2-0 4-18 00:00: 00 Yes 10mg Take 10 mg by mouth daily. [facility] cetirizine 10 mg tablet 2-0 4-18 00:00: 00 Yes 10mg Take 10 mg by mouth daily. [facility] cetirizine 10 mg tablet 2-0 4-18 00:00: 00 Yes 10mg Take 10 mg by mouth daily. [facility] cetirizine 10 mg tablet 2-0 4-18 00:00: 00 Yes 10mg Take 10 mg by mouth daily. [facility] cetirizine 10 mg tablet 2-0 4-18 00:00: 00 Yes 10mg Take 10 mg by mouth daily. [facility] cetirizine 10 mg tablet 2-0 4-18 00:00: 00 Yes 10mg Take 10 mg by mouth daily. [facility] cetirizine 10 mg tablet 2-0 4-18 00:00: 00 Yes 10mg Take 10 mg by mouth daily. [facility] cetirizine 10 mg tablet 2-0 4-18 00:00: 00 Yes 10mg Take 10 mg by mouth daily. [facility] cetirizine 10 mg tablet 2-0 4-18 00:00: 00 Yes 10mg Take 10 mg by mouth daily. [facility] cetirizine 10 mg tablet 2-0 4-18 00:00: 00 Yes 10mg Take 10 mg by mouth daily. [facility] cetirizine 10 mg tablet 2-0 4-18 00:00: 00 Yes 10mg Take 10 mg by mouth daily. [facility] cetirizine 10 mg tablet 2-0 4-18 00:00: 00 Yes 10mg Take 10 mg by mouth daily. [facility] cetirizine 10 mg tablet 2022-0 4-18 00:00: 00 Yes 10mg Take 10 mg by mouth daily. [facility] cetirizine 10 mg tablet 2-0 4-18 00:00: 00 Yes 10mg Take 10 mg by mouth daily. [facility] cetirizine 10 mg tablet 2-0 4-18 00:00: 00 Yes 10mg Take 10 mg by mouth daily. [facility] cetirizine 10 mg tablet 2-0 4-18 00:00: 00 Yes 10mg Take 10 mg by mouth daily. [facility] cetirizine 10 mg tablet 2-0 4-18 00:00: 00 Yes 10mg Take 10 mg by mouth daily. [facility] cetirizine 10 mg tablet 2-0 4-18 00:00: 00 Yes 10mg Take 10 mg by mouth daily. [facility] cetirizine 10 mg tablet 2-0 4-18 00:00: 00 10-08 00:00 :00 No 10mg Take 10 mg by mouth daily. [facility] cetirizine 10 mg tablet 2-0 4-18 00:00: 00 10-08 00:00 :00 No 10mg Take 10 mg by mouth daily. [facility] cetirizine 10 mg tablet 2-0 4-18 00:00: 00 10-08 00:00 :00 No 10mg Take 10 mg by mouth daily. [facility] cetirizine 10 mg tablet 2-0 4-18 00:00: 00 10-08 00:00 :00 No 10mg Take 10 mg by mouth daily. [facility] cetirizine 10 mg tablet 2-0 4-18 00:00: 00 10-08 00:00 :00 No 10mg Take 10 mg by mouth daily. [facility] cetirizine 10 mg tablet 2-0 4-18 00:00: 00 10-08 00:00 :00 No 10mg Take 10 mg by mouth daily. [facility] albuterol 90 mcg/actuati on inhaler 2020-11- 16:22: 14 Yes 2{puff} Inhale 2 Puffs every 6 (six) hours as needed. [facility] albuterol 2.5 mg /3 mL (0.083 %) nebulizer solution 2020-11 16:22: 14 Yes 2.5mg Inhale 2.5 mg every 4 (four) hours as needed. [facility] FLUoxetine 20 mg capsule 2020-11 16:22: 14 Yes fluoxetine 20 mg capsule TAKE 1 CAPSULE BY MOUTH EVERY DAY [facility] albuterol 90 mcg/actuati on inhaler 2020-11 16:22: 14 Yes 2{puff} Inhale 2 Puffs every 6 (six) hours as needed. [facility] albuterol 2.5 mg /3 mL (0.083 %) nebulizer solution 2020-11 16:22: 14 Yes 2.5mg Inhale 2.5 mg every 4 (four) hours as needed. [facility] FLUoxetine 20 mg capsule 2020-11 16:22: 14 Yes fluoxetine 20 mg capsule TAKE 1 CAPSULE BY MOUTH EVERY DAY [facility] albuterol 90 mcg/actuati on inhaler 2020-11 16:22: 14 Yes 2{puff} Inhale 2 Puffs every 6 (six) hours as needed. [facility] albuterol 2.5 mg /3 mL (0.083 %) nebulizer solution 2020-11 16:22: 14 Yes 2.5mg Inhale 2.5 mg every 4 (four) hours as needed. [facility] FLUoxetine 20 mg capsule 2020-11 16:22: 14 Yes fluoxetine 20 mg capsule TAKE 1 CAPSULE BY MOUTH EVERY DAY [facility] albuterol 90 mcg/actuati on inhaler 2020-11 16:22: 14 Yes 2{puff} Inhale 2 Puffs every 6 (six) hours as needed. [facility] albuterol 2.5 mg /3 mL (0.083 %) nebulizer solution 2020-11 16:22: 14 Yes 2.5mg Inhale 2.5 mg every 4 (four) hours as needed. [facility] FLUoxetine 20 mg capsule 2020-11 16:22: 14 Yes fluoxetine 20 mg capsule TAKE 1 CAPSULE BY MOUTH EVERY DAY [facility] al[facility]ol [facility] mcg/actuati on inhaler 2020-11 16:22: 14 Yes 2{puff} Inhale 2 Puffs every 6 (six) hours as needed. [facility] albuterol 2.5 mg /3 mL (0.083 %) nebulizer solution 2020-11 16:22: 14 Yes 2.5mg Inhale 2.5 mg every 4 (four) hours as needed. [facility] FLUoxetine 20 mg capsule 2020-11 16:22: 14 Yes fluoxetine 20 mg capsule TAKE 1 CAPSULE BY MOUTH EVERY DAY [facility] albuterol 90 mcg/actuati on inhaler 2020-11 16:22: 14 Yes 2{puff} Inhale 2 Puffs every 6 (six) hours as needed. [facility] albuterol 2.5 mg /3 mL (0.083 %) nebulizer solution 2020-11 16:22: 14 Yes 2.5mg Inhale 2.5 mg every 4 (four) hours as needed. [facility] FLUoxetine 20 mg capsule 2020-11 16:22: 14 Yes fluoxetine 20 mg capsule TAKE 1 CAPSULE BY MOUTH EVERY DAY [facility] albuterol 90 mcg/actuati on inhaler 2020-11 16:22: 14 Yes 2{puff} Inhale 2 Puffs every 6 (six) hours as needed. [facility] albuterol 2.5 mg /3 mL (0.083 %) nebulizer solution 2020-11 16:22: 14 Yes 2.5mg Inhale 2.5 mg every 4 (four) hours as needed. [facility] FLUoxetine 20 mg capsule 2020-11 16:22: 14 Yes fluoxetine 20 mg capsule TAKE 1 CAPSULE BY MOUTH EVERY DAY [facility] albuterol 90 mcg/actuati on inhaler 2020-11 16:22: 14 Yes 2{puff} Inhale 2 Puffs every 6 (six) hours as needed. [facility] albuterol 2.5 mg /3 mL (0.083 %) nebulizer solution 2020-11 16:22: 14 Yes 2.5mg Inhale 2.5 mg every 4 (four) hours as needed. [facility] FLUoxetine 20 mg capsule 2020-11 16:22: 14 Yes fluoxetine 20 mg capsule TAKE 1 CAPSULE BY MOUTH EVERY DAY [facility] albuterol 90 mcg/actuati on inhaler 2020-11 16:22: 14 Yes 2{puff} Inhale 2 Puffs every 6 (six) hours as needed. [facility] albuterol 2.5 mg /3 mL (0.083 %) nebulizer solution 2020-11 16:22: 14 Yes 2.5mg Inhale 2.5 mg every 4 (four) hours as needed. [facility] FLUoxetine 20 mg capsule 2020-11 16:22: 14 Yes fluoxetine 20 mg capsule TAKE 1 CAPSULE BY MOUTH EVERY DAY [facility] albuterol 90 mcg/actuati on inhaler 2020-11 16:22: 14 Yes 2{puff} Inhale 2 Puffs every 6 (six) hours as needed. [facility] albuterol 2.5 mg /3 mL (0.083 %) nebulizer solution 2020-11 16:22: 14 Yes 2.5mg Inhale 2.5 mg every 4 (four) hours as needed. [facility] FLUoxetine 20 mg capsule 2020-11 16:22: 14 Yes fluoxetine 20 mg capsule TAKE 1 CAPSULE BY MOUTH EVERY DAY [facility] albuterol 90 mcg/actuati on inhaler 2020-11 16:22: 14 Yes 2{puff} Inhale 2 Puffs every 6 (six) hours as needed. [facility] albuterol 2.5 mg /3 mL (0.083 %) nebulizer solution 2020-11 16:22: 14 Yes 2.5mg Inhale 2.5 mg every 4 (four) hours as needed. [facility] FLUoxetine 20 mg capsule 2020-11 16:22: 14 Yes fluoxetine 20 mg capsule TAKE 1 CAPSULE BY MOUTH EVERY DAY [facility] albuterol 90 mcg/actuati on inhaler 2020-11 16:22: 14 Yes 2{puff} Inhale 2 Puffs every 6 (six) hours as needed. [facility] albuterol 2.5 mg /3 mL (0.083 %) nebulizer solution 2020-11 16:22: 14 Yes 2.5mg Inhale 2.5 mg every 4 (four) hours as needed. [facility] FLUoxetine 20 mg capsule 2020-11 16:22: 14 Yes fluoxetine 20 mg capsule TAKE 1 CAPSULE BY MOUTH EVERY DAY [facility] albuterol 90 mcg/actuati on inhaler 2020-11 16:22: 14 Yes 2{puff} Inhale 2 Puffs every 6 (six) hours as needed. [facility] albuterol 2.5 mg /3 mL (0.083 %) nebulizer solution 2020-11 16:22: 14 Yes 2.5mg Inhale 2.5 mg every 4 (four) hours as needed. [facility] FLUoxetine 20 mg capsule 2020-11 16:22: 14 Yes fluoxetine 20 mg capsule TAKE 1 CAPSULE BY MOUTH EVERY DAY [facility] FLUoxetine 20 mg capsule 2020-11 16:22: 14 Yes fluoxetine 20 mg capsule TAKE 1 CAPSULE BY MOUTH EVERY DAY [facility] FLUoxetine 20 mg capsule 2020-11 16:22: 14 Yes fluoxetine 20 mg capsule TAKE 1 CAPSULE BY MOUTH EVERY DAY [facility] FLUoxetine 20 mg capsule 2020-11 16:22: 14 Yes fluoxetine 20 mg capsule TAKE 1 CAPSULE BY MOUTH EVERY DAY [facility] FLUoxetine 20 mg capsule 2020-11 16:22: 14 Yes fluoxetine 20 mg capsule TAKE 1 CAPSULE BY MOUTH EVERY DAY [facility] FLUoxetine 20 mg capsule 2020-11 16:22: 14 Yes fluoxetine 20 mg capsule TAKE 1 CAPSULE BY MOUTH EVERY DAY [facility] FLUoxetine 20 mg capsule 2020-11 16:22: 14 Yes fluoxetine 20 mg capsule TAKE 1 CAPSULE BY MOUTH EVERY DAY [facility] FLUoxetine 20 mg capsule 2020-11 16:22: 14 Yes fluoxetine 20 mg capsule TAKE 1 CAPSULE BY MOUTH EVERY DAY [facility] FLUoxetine 20 mg capsule 2020-11 16:22: 14 Yes fluoxetine 20 mg capsule TAKE 1 CAPSULE BY MOUTH EVERY DAY [facility] FLUoxetine 20 mg capsule 2020-11 16:22: 14 Yes fluoxetine 20 mg capsule TAKE 1 CAPSULE BY MOUTH EVERY DAY [facility] FLUoxetine 20 mg capsule 2020-11 16:22: 14 Yes fluoxetine 20 mg capsule TAKE 1 CAPSULE BY MOUTH EVERY DAY [facility] FLUoxetine 20 mg capsule 2020-11 16:22: 14 Yes fluoxetine 20 mg capsule TAKE 1 CAPSULE BY MOUTH EVERY DAY [facility] FLUoxetine 20 mg capsule 2020-11 16:22: 14 Yes fluoxetine 20 mg capsule TAKE 1 CAPSULE BY MOUTH EVERY DAY [facility] docusate calcium 240 mg capsule 2020-11 00:00: 00 Yes [id number] 240mg Take 1 capsule by mouth once daily as needed for Constipati on. [facility] ferrous sulfate 325 mg (65 mg iron) tablet 2020-11 00:00: 00 Yes [id number] 325mg Take 1 tablet by mouth 2 (two) times daily. [facility] docusate calcium 240 mg capsule 2020-11 00:00: 00 Yes [id number] 240mg Take 1 capsule by mouth once daily as needed for Constipati on. [facility] ferrous sulfate 325 mg (65 mg iron) tablet 2020-11 00:00: 00 Yes [id number] 325mg Take 1 tablet by mouth 2 (two) times daily. [facility] docusate calcium 240 mg capsule 2020-11 00:00: 00 Yes [id number] 240mg Take 1 capsule by mouth once daily as needed for Constipati on. [facility] ferrous sulfate 325 mg (65 mg iron) tablet 2020-11 00:00: 00 Yes [id number] 325mg Take 1 tablet by mouth 2 (two) times daily. [facility] docusate calcium 240 mg capsule 2020-11 00:00: 00 Yes [id number] 240mg Take 1 capsule by mouth once daily as needed for Constipati on. [facility] ferrous sulfate 325 mg (65 mg iron) tablet 2020-11 00:00: 00 Yes [id number] 325mg Take 1 tablet by mouth 2 (two) times daily. [facility] docusate calcium 240 mg capsule 2020-11 00:00: 00 Yes [id number] 240mg Take 1 capsule by mouth once daily as needed for Constipati on. [facility] ferrous sulfate 325 mg (65 mg iron) tablet 2020-11 00:00: 00 Yes [id number] 325mg Take 1 tablet by mouth 2 (two) times daily. [facility] docusate calcium 240 mg capsule 2020-11 00:00: 00 Yes [id number] 240mg Take 1 capsule by mouth once daily as needed for Constipati on. [facility] ferrous sulfate 325 mg (65 mg iron) tablet 2020-11 00:00: 00 Yes [id number] 325mg Take 1 tablet by mouth 2 (two) times daily. [facility] docusate calcium 240 mg capsule 2020-11 00:00: 00 Yes [id number] 240mg Take 1 capsule by mouth once daily as needed for Constipati on. [facility] ferrous sulfate 325 mg (65 mg iron) tablet 2020-11 00:00: 00 Yes [id number] 325mg Take 1 tablet by mouth 2 (two) times daily. [facility] docusate calcium 240 mg capsule 2020-11 00:00: 00 Yes [id number] 240mg Take 1 capsule by mouth once daily as needed for Constipati on. [facility] ferrous sulfate 325 mg (65 mg iron) tablet 2020-11 00:00: 00 Yes [id number] 325mg Take 1 tablet by mouth 2 (two) times daily. [facility] docusate calcium 240 mg capsule 2020-11 00:00: 00 Yes [id number] 240mg Take 1 capsule by mouth once daily as needed for Constipati on. [facility] ferrous sulfate 325 mg (65 mg iron) tablet 2020-11 00:00: 00 Yes [id number] 325mg Take 1 tablet by mouth 2 (two) times daily. [facility] docusate calcium 240 mg capsule 2020-11 00:00: 00 Yes [id number] 240mg Take 1 capsule by mouth once daily as needed for Constipati on. [facility] ferrous sulfate 325 mg (65 mg iron) tablet 2020-11 00:00: 00 Yes [id number] 325mg Take 1 tablet by mouth 2 (two) times daily. [facility] docusate calcium 240 mg capsule 2020-11 00:00: 00 Yes [id number] 240mg Take 1 capsule by mouth once daily as needed for Constipati on. [facility] ferrous sulfate 325 mg (65 mg iron) tablet 2020-11 00:00: 00 Yes [id number] 325mg Take 1 tablet by mouth 2 (two) times daily. [facility] docusate calcium 240 mg capsule 2020-11 00:00: 00 Yes [id number] 240mg Take 1 capsule by mouth once daily as needed for Constipati on. [facility] ferrous sulfate 325 mg (65 mg iron) tablet 2020-11 00:00: 00 Yes [id number] 325mg Take 1 tablet by mouth 2 (two) times daily. [facility] docusate calcium 240 mg capsule 2020-11 00:00: 00 Yes [id number] 240mg Take 1 capsule by mouth once daily as needed for Constipati on. [facility] ferrous sulfate 325 mg (65 mg iron) tablet 2020-11 00:00: 00 Yes [id number] 325mg Take 1 tablet by mouth 2 (two) times daily. [facility] docusate calcium 240 mg capsule 2020-11 00:00: 00 Yes [id number] 240mg Take 1 capsule by mouth once daily as needed for Constipati on. [facility] ferrous sulfate 325 mg (65 mg iron) tablet 2020-11 00:00: 00 Yes [id number] 325mg Take 1 tablet by mouth 2 (two) times daily. [facility] docusate calcium 240 mg capsule 2020-11 00:00: 00 Yes [id number] 240mg Take 1 capsule by mouth once daily as needed for Constipati on. [facility] ferrous sulfate 325 mg (65 mg iron) tablet 2020-11 00:00: 00 Yes [id number] 325mg Take 1 tablet by mouth 2 (two) times daily. [facility] docusate calcium 240 mg capsule 2020-11 00:00: 00 Yes [id number] 240mg Take 1 capsule by mouth once daily as needed for Constipati on. [facility] ferrous sulfate 325 mg (65 mg iron) tablet 2020-11 00:00: 00 Yes [id number] 325mg Take 1 tablet by mouth 2 (two) times daily. [facility] docusate calcium 240 mg capsule 2020-11 00:00: 00 Yes [id number] 240mg Take 1 capsule by mouth once daily as needed for Constipati on. [facility] ferrous sulfate 325 mg (65 mg iron) tablet 2020-11 00:00: 00 Yes [id number] 325mg Take 1 tablet by mouth 2 (two) times daily. [facility] docusate calcium 240 mg capsule 2020-11 00:00: 00 Yes [id number] 240mg Take 1 capsule by mouth once daily as needed for Constipati on. [facility] ferrous sulfate 325 mg (65 mg iron) tablet 2020-11 00:00: 00 Yes [id number] 325mg Take 1 tablet by mouth 2 (two) times daily. [facility] docusate calcium 240 mg capsule 2020-11 00:00: 00 Yes [id number] 240mg Take 1 capsule by mouth once daily as needed for Constipati on. [facility] ferrous sulfate 325 mg (65 mg iron) tablet 2020-11 00:00: 00 Yes [id number] 325mg Take 1 tablet by mouth 2 (two) times daily. [facility] docusate calcium 240 mg capsule 2020-11 00:00: 00 10-08 00:00 :00 No [id number] 240mg Take 1 capsule by mouth once daily as needed for Constipati on. [facility] ferrous sulfate 325 mg (65 mg iron) tablet 2020-11 00:00: 00 10-08 00:00 :00 No [id number] 325mg Take 1 tablet by mouth 2 (two) times daily. [facility] docusate calcium 240 mg capsule 2020-11 00:00: 00 10-08 00:00 :00 No [id number] 240mg Take 1 capsule by mouth once daily as needed for Constipati on. [facility] ferrous sulfate 325 mg (65 mg iron) tablet 2020-11 00:00: 00 10-08 00:00 :00 No [id number] 325mg Take 1 tablet by mouth 2 (two) times daily. [facility] docusate calcium 240 mg capsule 2020-11 00:00: 00 10-08 00:00 :00 No [id number] 240mg Take 1 capsule by mouth once daily as needed for Constipati on. [facility] ferrous sulfate 325 mg (65 mg iron) tablet 2020-11 00:00: 00 10-08 00:00 :00 No [id number] 325mg Take 1 tablet by mouth 2 (two) times daily. [facility] docusate calcium 240 mg capsule 2020-11 00:00: 00 10-08 00:00 :00 No [id number] 240mg Take 1 capsule by mouth once daily as needed for Constipati on. [facility] ferrous sulfate 325 mg (65 mg iron) tablet 2020-11 00:00: 00 10-08 00:00 :00 No [id number] 325mg Take 1 tablet by mouth 2 (two) times daily. [facility] docusate calcium 240 mg capsule 2020-11 00:00: 00 10-08 00:00 :00 No [id number] 240mg Take 1 capsule by mouth once daily as needed for Constipati on. [facility] ferrous sulfate 325 mg (65 mg iron) tablet 2020-11 00:00: 00 10-08 00:00 :00 No [id number] 325mg Take 1 tablet by mouth 2 (two) times daily. [facility] docusate calcium 240 mg capsule 2020-11 00:00: 00 10-08 00:00 :00 No [id number] 240mg Take 1 capsule by mouth once daily as needed for Constipati on. [facility] ferrous sulfate 325 mg (65 mg iron) tablet 2020-11 00:00: 00 10-08 00:00 :00 No [id number] 325mg Take 1 tablet by mouth 2 (two) times daily. [facility] QUEtiapine 50 mg tablet 2018-11 00:00: 00 Yes 50mg Take 50 mg by mouth daily. [facility] QUEtiapine 50 mg tablet 2018-11 00:00: 00 Yes 50mg Take 50 mg by mouth daily. [facility] QUEtiapine 50 mg tablet 2018-11 00:00: 00 Yes 50mg Take 50 mg by mouth daily. [facility] QUEtiapine 50 mg tablet 2018-11 00:00: 00 Yes 50mg Take 50 mg by mouth daily. [facility] QUEtiapine 50 mg tablet 2018-11 00:00: 00 Yes 50mg Take 50 mg by mouth daily. [facility] QUEtiapine 50 mg tablet 2018-11 00:00: 00 Yes 50mg Take 50 mg by mouth daily. [facility] QUEtiapine 50 mg tablet 2018-11 00:00: 00 Yes 50mg Take 50 mg by mouth daily. [facility] QUEtiapine 50 mg tablet 2018-11 00:00: 00 Yes 50mg Take 50 mg by mouth daily. [facility] QUEtiapine 50 mg tablet 2018-11 00:00: 00 Yes 50mg Take 50 mg by mouth daily. [facility] QUEtiapine 50 mg tablet 2018-11 00:00: 00 Yes 50mg Take 50 mg by mouth daily. [facility] QUEtiapine 50 mg tablet 2018-11 00:00: 00 Yes 50mg Take 50 mg by mouth daily. [facility] QUEtiapine 50 mg tablet 2018-11 00:00: 00 Yes 50mg Take 50 mg by mouth daily. [facility] QUEtiapine 50 mg tablet 2018-11 00:00: 00 Yes 50mg Take 50 mg by mouth daily. [facility] QUEtiapine 50 mg tablet 2018-11 00:00: 00 Yes 50mg Take 1 tablet by mouth in the morning. [facility] QUEtiapine 50 mg tablet 2018-11 00:00: 00 Yes 50mg Take 1 tablet by mouth in the morning. [facility] QUEtiapine 50 mg tablet 2018-11 00:00: 00 Yes 50mg Take 1 tablet by mouth in the morning. [facility] QUEtiapine 50 mg tablet 2018-11 00:00: 00 Yes 50mg Take 1 tablet by mouth in the morning. [facility] QUEtiapine 50 mg tablet 2018-11 00:00: 00 Yes 50mg Take 1 tablet by mouth in the morning. [facility] QUEtiapine 50 mg tablet 2018-11 00:00: 00 Yes 50mg Take 1 tablet by mouth in the morning. [facility] QUEtiapine 50 mg tablet 2018-11 00:00: 00 Yes 50mg Take 1 tablet by mouth in the morning. [facility] QUEtiapine 50 mg tablet 2018-11 00:00: 00 Yes 50mg Take 1 tablet by mouth in the morning. [facility] QUEtiapine 50 mg tablet 2018-11 00:00: 00 Yes 50mg Take 1 tablet by mouth in the morning. [facility] QUEtiapine 50 mg tablet 2018-11 00:00: 00 Yes 50mg Take 1 tablet by mouth in the morning. [facility] QUEtiapine 50 mg tablet 2018-11 00:00: 00 Yes 50mg Take 1 tablet by mouth in the morning. [facility] QUEtiapine 50 mg tablet 2018-11 00:00: 00 Yes 50mg Take 1 tablet by mouth in the morning. [facility] QUEtiapine 50 mg tablet 2018-11 00:00: 00 Yes 50mg Take 1 tablet by mouth in the morning. [facility] QUEtiapine 50 mg tablet 2018-11 00:00: 00 Yes 50mg Take 1 tablet by mouth in the morning. [facility] QUEtiapine 50 mg tablet 2018-11 00:00: 00 Yes 50mg Take 1 tablet by mouth in the morning. [facility] QUEtiapine 50 mg tablet 2018-11 00:00: 00 Yes 50mg Take 1 tablet by mouth in the morning. [facility] QUEtiapine 50 mg tablet 2018-11 00:00: 00 Yes 50mg Take 1 tablet by mouth in the morning. [facility] QUEtiapine 50 mg tablet 2018-11 00:00: 00 Yes 50mg Take 1 tablet by mouth in the morning. [facility] QUEtiapine 50 mg tablet 2018-11 00:00: 00 Yes 50mg Take 1 tablet by mouth in the morning. [facility] QUEtiapine 50 mg tablet 2018-11 00:00: 00 Yes 50mg Take 1 tablet by mouth in the morning. [facility] QUEtiapine 50 mg tablet 2018-11 00:00: 00 Yes 50mg Take 1 tablet by mouth in the morning. [facility] QUEtiapine 50 mg tablet 2018-11 00:00: 00 Yes 50mg Take 1 tablet by mouth in the morning. [facility] QUEtiapine 50 mg tablet 2018-11 00:00: 00 Yes 50mg Take 1 tablet by mouth in the morning. [facility] Immunizations Ordered Immunization Name Filled Immunization Name Date Status Comments Source Influenza Virus Vaccine Quad IM, Preserv and ABX Free 6 MO-64 YRS 2021-09-06 00:00:00 Completed [facility] Influenza Virus Vaccine Quad IM, Preserv and ABX Free 6 MO-64 YRS 2021-09-06 00:00:00 Completed [facility] Influenza Virus Vaccine Quad IM, Preserv and ABX Free 6 MO-64 YRS 2021-09-06 00:00:00 Completed [facility] Influenza Virus Vaccine Quad IM, Preserv and ABX Free 6 MO-64 YRS 2021-09-06 00:00:00 Completed [facility] Influenza Virus Vaccine Quad IM, Preserv and ABX Free 6 MO-64 YRS 2021-09-06 00:00:00 Completed [facility] Influenza Virus Vaccine Quad IM, Preserv and ABX Free 6 MO-64 YRS 2021-09-06 00:00:00 Completed [facility] Influenza Virus Vaccine Quad IM, Preserv and ABX Free 6 MO-64 YRS 2021-09-06 00:00:00 Completed [facility] Influenza Virus Vaccine Quad IM, Preserv and ABX Free 6 MO-64 YRS 2021-09-06 00:00:00 Completed [facility] Influenza Virus Vaccine Quad IM, Preserv and ABX Free 6 MO-64 YRS 2021-09-06 00:00:00 Completed [facility] Influenza Virus Vaccine Quad IM, Preserv and ABX Free 6 MO-64 YRS 2021-09-06 00:00:00 Completed [facility] Influenza Virus Vaccine Quad IM, Preserv and ABX Free 6 MO-64 YRS 2021-09-06 00:00:00 Completed [facility] Influenza Virus Vaccine Quad IM, Preserv and ABX Free 6 MO-64 YRS 2021-09-06 00:00:00 Completed [facility] Influenza Virus Vaccine Quad IM, Preserv and ABX Free 6 MO-64 YRS 2021-09-06 00:00:00 Completed [facility] Influenza Virus Vaccine Quad IM, Preserv and ABX Free 6 MO-64 YRS 2021-09-06 00:00:00 Completed [facility] Influenza Virus Vaccine Quad IM, Preserv and ABX Free 6 MO-64 YRS 2021-09-06 00:00:00 Completed [facility] Influenza Virus Vaccine Quad IM, Preserv and ABX Free 6 MO-64 YRS 2021-09-06 00:00:00 Completed [facility] Influenza Virus Vaccine Quad IM, Preserv and ABX Free 6 MO-64 YRS 2021-09-06 00:00:00 Completed [facility] TDAP 2021-07-17 00:00:00 Completed [facility] TDAP 2021-07-17 00:00:00 Completed [facility] TDAP 2021-07-17 00:00:00 Completed [facility] TDAP 2021-07-17 00:00:00 Completed [facility] TDAP 2021-07-17 00:00:00 Completed [facility] TDAP 2021-07-17 00:00:00 Completed [facility] TDAP 2021-07-17 00:00:00 Completed [facility] TDAP 2021-07-17 00:00:00 Completed [facility] TDAP 2021-07-17 00:00:00 Completed [facility] TDAP 2021-07-17 00:00:00 Completed [facility] TDAP 2021-07-17 00:00:00 Completed [facility] TDAP 2021-07-17 00:00:00 Completed [facility] TDAP 2021-07-17 00:00:00 Completed [facility] TDAP 2021-07-17 00:00:00 Completed [facility] TDAP 2021-07-17 00:00:00 Completed [facility] TDAP 2021-07-17 00:00:00 Completed [facility] TDAP 2021-07-17 00:00:00 Completed [facility] Rho (d) Immune Globulin 2021-05-29 00:00:00 Completed [facility] Rho (d) Immune Globulin 2021-05-29 00:00:00 Completed [facility] Rho (d) Immune Globulin 2021-05-29 00:00:00 Completed [facility] Rho (d) Immune Globulin 2021-05-29 00:00:00 Completed [facility] Rho (d) Immune Globulin 2021-05-29 00:00:00 Completed [facility] Rho (d) Immune Globulin 2021-05-29 00:00:00 Completed [facility] Rho (d) Immune Globulin 2021-05-29 00:00:00 Completed [facility] Rho (d) Immune Globulin 2021-05-29 00:00:00 Completed [facility] Rho (d) Immune Globulin 2021-05-29 00:00:00 Completed [facility] Rho (d) Immune Globulin 2021-05-29 00:00:00 Completed [facility] Rho (d) Immune Globulin 2021-05-29 00:00:00 Completed [facility] Rho (d) Immune Globulin 2021-05-29 00:00:00 Completed [facility] Rho (d) Immune Globulin 2021-05-29 00:00:00 Completed [facility] Rho (d) Immune Globulin 2021-05-29 00:00:00 Completed [facility] Rho (d) Immune Globulin 2021-05-29 00:00:00 Completed [facility] Rho (d) Immune Globulin 2021-05-29 00:00:00 Completed [facility] Rho (d) Immune Globulin 2021-05-29 00:00:00 Completed [facility] MMR 2020-02-01 00:00:00 Completed [facility] Rho (d) Immune Globulin 2020-02-01 00:00:00 Completed [facility] MMR 2020-02-01 00:00:00 Completed [facility] Rho (d) Immune Globulin 2020-02-01 00:00:00 Completed [facility] MMR 2020-02-01 00:00:00 Completed [facility] Rho (d) Immune Globulin 2020-02-01 00:00:00 Completed [facility] MMR 2020-02-01 00:00:00 Completed [facility] Rho (d) Immune Globulin 2020-02-01 00:00:00 Completed [facility] MMR 2020-02-01 00:00:00 Completed [facility] Rho (d) Immune Globulin 2020-02-01 00:00:00 Completed [facility] MMR 2020-02-01 00:00:00 Completed [facility] Rho (d) Immune Globulin 2020-02-01 00:00:00 Completed [facility] MMR 2020-02-01 00:00:00 Completed [facility] Rho (d) Immune Globulin 2020-02-01 00:00:00 Completed [facility] MMR 2020-02-01 00:00:00 Completed [facility] Rho (d) Immune Globulin 2020-02-01 00:00:00 Completed [facility] MMR 2020-02-01 00:00:00 Completed [facility] Rho (d) Immune Globulin 2020-02-01 00:00:00 Completed [facility] MMR 2020-02-01 00:00:00 Completed [facility] Rho (d) Immune Globulin 2020-02-01 00:00:00 Completed [facility] MMR 2020-02-01 00:00:00 Completed [facility] Rho (d) Immune Globulin 2020-02-01 00:00:00 Completed [facility] MMR 2020-02-01 00:00:00 Completed [facility] Rho (d) Immune Globulin 2020-02-01 00:00:00 Completed [facility] MMR 2020-02-01 00:00:00 Completed [facility] Rho (d) Immune Globulin 2020-02-01 00:00:00 Completed [facility] MMR 2020-02-01 00:00:00 Completed [facility] Rho (d) Immune Globulin 2020-02-01 00:00:00 Completed [facility] MMR 2020-02-01 00:00:00 Completed [facility] Rho (d) Immune Globulin 2020-02-01 00:00:00 Completed [facility] MMR 2020-02-01 00:00:00 Completed [facility] Rho (d) Immune Globulin 2020-02-01 00:00:00 Completed [facility] MMR 2020-02-01 00:00:00 Completed [facility] Rho (d) Immune Globulin 2020-02-01 00:00:00 Completed [facility] TDAP (ADACEL) VACCINE 2019-12-08 00:00:00 Completed [facility] TDAP (ADACEL) VACCINE 2019-12-08 00:00:00 Completed [facility] TDAP (ADACEL) VACCINE 2019-12-08 00:00:00 Completed [facility] TDAP (ADACEL) VACCINE 2019-12-08 00:00:00 Completed [facility] TDAP (ADACEL) VACCINE 2019-12-08 00:00:00 Completed [facility] TDAP (ADACEL) VACCINE 2019-12-08 00:00:00 Completed [facility] TDAP (ADACEL) VACCINE 2019-12-08 00:00:00 Completed [facility] TDAP (ADACEL) VACCINE 2019-12-08 00:00:00 Completed [facility] TDAP (ADACEL) VACCINE 2019-12-08 00:00:00 Completed [facility] TDAP (ADACEL) VACCINE 2019-12-08 00:00:00 Completed [facility] TDAP (ADACEL) VACCINE 2019-12-08 00:00:00 Completed [facility] TDAP (ADACEL) VACCINE 2019-12-08 00:00:00 Completed [facility] TDAP (ADACEL) VACCINE 2019-12-08 00:00:00 Completed [facility] TDAP (ADACEL) VACCINE 2019-12-08 00:00:00 Completed [facility] TDAP (ADACEL) VACCINE 2019-12-08 00:00:00 Completed [facility] TDAP (ADACEL) VACCINE 2019-12-08 00:00:00 Completed [facility] TDAP (ADACEL) VACCINE 2019-12-08 00:00:00 Completed [facility] Influenza Virus Vaccine Quad .5 mL IM 6+ MO 2019-08-18 00:00:00 Completed [facility] Influenza Virus Vaccine 2019-08-18 00:00:00 Completed [facility] Influenza Virus Vaccine Quad .5 mL IM 6+ MO 2019-08-18 00:00:00 Completed [facility] Influenza Virus Vaccine 2019-08-18 00:00:00 Completed [facility] Influenza Virus Vaccine Quad .5 mL IM 6+ MO 2019-08-18 00:00:00 Completed [facility] Influenza Virus Vaccine 2019-08-18 00:00:00 Completed [facility] Influenza Virus Vaccine Quad .5 mL IM 6+ MO 2019-08-18 00:00:00 Completed [facility] Influenza Virus Vaccine 2019-08-18 00:00:00 Completed [facility] Influenza Virus Vaccine Quad .5 mL IM 6+ MO 2019-08-18 00:00:00 Completed [facility] Influenza Virus Vaccine 2019-08-18 00:00:00 Completed [facility] Influenza Virus Vaccine Quad .5 mL IM 6+ MO 2019-08-18 00:00:00 Completed [facility] Influenza Virus Vaccine 2019-08-18 00:00:00 Completed [facility] Influenza Virus Vaccine Quad .5 mL IM 6+ MO 2019-08-18 00:00:00 Completed [facility] Influenza Virus Vaccine 2019-08-18 00:00:00 Completed [facility] Influenza Virus Vaccine Quad .5 mL IM 6+ MO 2019-08-18 00:00:00 Completed [facility] Influenza Virus Vaccine 2019-08-18 00:00:00 Completed [facility] Influenza Virus Vaccine Quad .5 mL IM 6+ MO 2019-08-18 00:00:00 Completed [facility] Influenza Virus Vaccine 2019-08-18 00:00:00 Completed [facility] Influenza Virus Vaccine Quad .5 mL IM 6+ MO 2019-08-18 00:00:00 Completed [facility] Influenza Virus Vaccine 2019-08-18 00:00:00 Completed [facility] Influenza Virus Vaccine Quad .5 mL IM 6+ MO 2019-08-18 00:00:00 Completed [facility] Influenza Virus Vaccine 2019-08-18 00:00:00 Completed [facility] Influenza Virus Vaccine Quad .5 mL IM 6+ MO 2019-08-18 00:00:00 Completed [facility] Influenza Virus Vaccine 2019-08-18 00:00:00 Completed [facility] Influenza Virus Vaccine Quad .5 mL IM 6+ MO 2019-08-18 00:00:00 Completed [facility] Influenza Virus Vaccine 2019-08-18 00:00:00 Completed [facility] Influenza Virus Vaccine Quad .5 mL IM 6+ MO 2019-08-18 00:00:00 Completed [facility] Influenza Virus Vaccine 2019-08-18 00:00:00 Completed [facility] Influenza Virus Vaccine Quad .5 mL IM 6+ MO 2019-08-18 00:00:00 Completed [facility] Influenza Virus Vaccine 2019-08-18 00:00:00 Completed [facility] Influenza Virus Vaccine Quad .5 mL IM 6+ MO 2019-08-18 00:00:00 Completed [facility] Influenza Virus Vaccine 2019-08-18 00:00:00 Completed [facility] Influenza Virus Vaccine Quad .5 mL IM 6+ MO 2019-08-18 00:00:00 Completed [facility] Influenza Virus Vaccine 2019-08-18 00:00:00 Completed [facility] Rho (d) Immune Globulin 2019-07-27 00:00:00 Completed [facility] Rho (d) Immune Globulin 2019-07-27 00:00:00 Completed [facility] Rho (d) Immune Globulin 2019-07-27 00:00:00 Completed [facility] Rho (d) Immune Globulin 2019-07-27 00:00:00 Completed [facility] Rho (d) Immune Globulin 2019-07-27 00:00:00 Completed [facility] Rho (d) Immune Globulin 2019-07-27 00:00:00 Completed [facility] Rho (d) Immune Globulin 2019-07-27 00:00:00 Completed [facility] Rho (d) Immune Globulin 2019-07-27 00:00:00 Completed [facility] Rho (d) Immune Globulin 2019-07-27 00:00:00 Completed [facility] Rho (d) Immune Globulin 2019-07-27 00:00:00 Completed [facility] Rho (d) Immune Globulin 2019-07-27 00:00:00 Completed [facility] Rho (d) Immune Globulin 2019-07-27 00:00:00 Completed [facility] Rho (d) Immune Globulin 2019-07-27 00:00:00 Completed [facility] Rho (d) Immune Globulin 2019-07-27 00:00:00 Completed [facility] Rho (d) Immune Globulin 2019-07-27 00:00:00 Completed [facility] Rho (d) Immune Globulin 2019-07-27 00:00:00 Completed [facility] Rho (d) Immune Globulin 2019-07-27 00:00:00 Completed [facility] Influenza Virus Vaccine Quad IM 3+ YRS 2018-09-10 00:00:00 Completed [facility] Influenza Virus Vaccine Quad IM 3+ YRS 2018-09-10 00:00:00 Completed [facility] Influenza Virus Vaccine Quad IM 3+ YRS 2018-09-10 00:00:00 Completed [facility] Influenza Virus Vaccine Quad IM 3+ YRS 2018-09-10 00:00:00 Completed [facility] Influenza Virus Vaccine Quad IM 3+ YRS 2018-09-10 00:00:00 Completed [facility] Influenza Virus Vaccine Quad IM 3+ YRS 2018-09-10 00:00:00 Completed [facility] Influenza Virus Vaccine Quad IM 3+ YRS 2018-09-10 00:00:00 Completed [facility] Influenza Virus Vaccine Quad IM 3+ YRS 2018-09-10 00:00:00 Completed [facility] Influenza Virus Vaccine Quad IM 3+ YRS 2018-09-10 00:00:00 Completed [facility] Influenza Virus Vaccine Quad IM 3+ YRS 2018-09-10 00:00:00 Completed [facility] Influenza Virus Vaccine Quad IM 3+ YRS 2018-09-10 00:00:00 Completed [facility] Influenza Virus Vaccine Quad IM 3+ YRS 2018-09-10 00:00:00 Completed [facility] Influenza Virus Vaccine Quad IM 3+ YRS 2018-09-10 00:00:00 Completed [facility] Influenza Virus Vaccine Quad IM 3+ YRS 2018-09-10 00:00:00 Completed [facility] Influenza Virus Vaccine Quad IM 3+ YRS 2018-09-10 00:00:00 Completed [facility] Influenza Virus Vaccine Quad IM 3+ YRS 2018-09-10 00:00:00 Completed [facility] Influenza Virus Vaccine Quad IM 3+ YRS 2018-09-10 00:00:00 Completed [facility] Influenza Virus Vaccine Quad IM 3+ YRS 2017-09-12 00:00:00 Completed [facility] Influenza Virus Vaccine Quad IM 3+ YRS 2017-09-12 00:00:00 Completed [facility] Influenza Virus Vaccine Quad IM 3+ YRS 2017-09-12 00:00:00 Completed [facility] Influenza Virus Vaccine Quad IM 3+ YRS 2017-09-12 00:00:00 Completed [facility] Influenza Virus Vaccine Quad IM 3+ YRS 2017-09-12 00:00:00 Completed [facility] Influenza Virus Vaccine Quad IM 3+ YRS 2017-09-12 00:00:00 Completed [facility] Influenza Virus Vaccine Quad IM 3+ YRS 2017-09-12 00:00:00 Completed [facility] Influenza Virus Vaccine Quad IM 3+ YRS 2017-09-12 00:00:00 Completed [facility] Influenza Virus Vaccine Quad IM 3+ YRS 2017-09-12 00:00:00 Completed [facility] Influenza Virus Vaccine Quad IM 3+ YRS 2017-09-12 00:00:00 Completed [facility] Influenza Virus Vaccine Quad IM 3+ YRS 2017-09-12 00:00:00 Completed [facility] Influenza Virus Vaccine Quad IM 3+ YRS 2017-09-12 00:00:00 Completed [facility] Influenza Virus Vaccine Quad IM 3+ YRS 2017-09-12 00:00:00 Completed [facility] Influenza Virus Vaccine Quad IM 3+ YRS 2017-09-12 00:00:00 Completed [facility] Influenza Virus Vaccine Quad IM 3+ YRS 2017-09-12 00:00:00 Completed [facility] Influenza Virus Vaccine Quad IM 3+ YRS 2017-09-12 00:00:00 Completed [facility] Influenza Virus Vaccine Quad IM 3+ YRS 2017-09-12 00:00:00 Completed [facility] Influenza Virus Vaccine Nasal 2015-10-13 00:00:00 Completed [facility] Influenza Virus Vaccine Nasal 2015-10-13 00:00:00 Completed [facility] Influenza Virus Vaccine Nasal 2015-10-13 00:00:00 Completed [facility] Influenza Virus Vaccine Nasal 2015-10-13 00:00:00 Completed [facility] Influenza Virus Vaccine Nasal 2015-10-13 00:00:00 Completed [facility] Influenza Virus Vaccine Nasal 2015-10-13 00:00:00 Completed [facility] Influenza Virus Vaccine Nasal 2015-10-13 00:00:00 Completed [facility] Influenza Virus Vaccine Nasal 2015-10-13 00:00:00 Completed [facility] Influenza Virus Vaccine Nasal 2015-10-13 00:00:00 Completed [facility] Influenza Virus Vaccine Nasal 2015-10-13 00:00:00 Completed [facility] Influenza Virus Vaccine Nasal 2015-10-13 00:00:00 Completed [facility] Influenza Virus Vaccine Nasal 2015-10-13 00:00:00 Completed [facility] Influenza Virus Vaccine Nasal 2015-10-13 00:00:00 Completed [facility] Influenza Virus Vaccine Nasal 2015-10-13 00:00:00 Completed [facility] Influenza Virus Vaccine Nasal 2015-10-13 00:00:00 Completed [facility] Influenza Virus Vaccine Nasal 2015-10-13 00:00:00 Completed [facility] Influenza Virus Vaccine Nasal 2015-10-13 00:00:00 Completed [facility] Influenza Virus Vaccine 2014-09-02 00:00:00 Completed [facility] Influenza Virus Vaccine 2014-09-02 00:00:00 Completed [facility] Influenza Virus Vaccine 2014-09-02 00:00:00 Completed [facility] Influenza Virus Vaccine 2014-09-02 00:00:00 Completed [facility] Influenza Virus Vaccine 2014-09-02 00:00:00 Completed [facility] Influenza Virus Vaccine 2014-09-02 00:00:00 Completed [facility] Influenza Virus Vaccine 2014-09-02 00:00:00 Completed [facility] Influenza Virus Vaccine 2014-09-02 00:00:00 Completed [facility] Influenza Virus Vaccine 2014-09-02 00:00:00 Completed [facility] Influenza Virus Vaccine 2014-09-02 00:00:00 Completed [facility] Influenza Virus Vaccine 2014-09-02 00:00:00 Completed [facility] Influenza Virus Vaccine 2014-09-02 00:00:00 Completed [facility] Influenza Virus Vaccine 2014-09-02 00:00:00 Completed [facility] Influenza Virus Vaccine 2014-09-02 00:00:00 Completed [facility] Influenza Virus Vaccine 2014-09-02 00:00:00 Completed [facility] Influenza Virus Vaccine 2014-09-02 00:00:00 Completed [facility] Influenza Virus Vaccine 2014-09-02 00:00:00 Completed [facility] HPV 2014-01-18 00:00:00 Completed [facility] Meningococcal Vaccine 2014-01-18 00:00:00 Completed [facility] Varicella (varivax)(chicken pox) 2014-01-18 00:00:00 Completed [facility] TDAP 2014-01-18 00:00:00 Completed [facility] Meningococcal Polysaccharide (groups A, C, Y and W-135) conjugate vaccine (MCV4P) 2014-01-18 00:00:00 Completed [facility] HPV 2014-01-18 00:00:00 Completed [facility] Meningococcal Vaccine 2014-01-18 00:00:00 Completed [facility] Varicella (varivax)(chicken pox) 2014-01-18 00:00:00 Completed [facility] TDAP 2014-01-18 00:00:00 Completed [facility] Meningococcal Polysaccharide (groups A, C, Y and W-135) conjugate vaccine (MCV4P) 2014-01-18 00:00:00 Completed [facility] HPV 2014-01-18 00:00:00 Completed [facility] Meningococcal Vaccine 2014-01-18 00:00:00 Completed [facility] Varicella (varivax)(chicken pox) 2014-01-18 00:00:00 Completed [facility] TDAP 2014-01-18 00:00:00 Completed [facility] Meningococcal Polysaccharide (groups A, C, Y and W-135) conjugate vaccine (MCV4P) 2014-01-18 00:00:00 Completed [facility] HPV 2014-01-18 00:00:00 Completed [facility] Meningococcal Vaccine 2014-01-18 00:00:00 Completed [facility] Varicella (varivax)(chicken pox) 2014-01-18 00:00:00 Completed [facility] TDAP 2014-01-18 00:00:00 Completed [facility] Meningococcal Polysaccharide (groups A, C, Y and W-135) conjugate vaccine (MCV4P) 2014-01-18 00:00:00 Completed [facility] HPV 2014-01-18 00:00:00 Completed [facility] Meningococcal Vaccine 2014-01-18 00:00:00 Completed [facility] Varicella (varivax)(chicken pox) 2014-01-18 00:00:00 Completed [facility] TDAP 2014-01-18 00:00:00 Completed [facility] Meningococcal Polysaccharide (groups A, C, Y and W-135) conjugate vaccine (MCV4P) 2014-01-18 00:00:00 Completed [facility] HPV 2014-01-18 00:00:00 Completed [facility] Meningococcal Vaccine 2014-01-18 00:00:00 Completed [facility] Varicella (varivax)(chicken pox) 2014-01-18 00:00:00 Completed [facility] TDAP 2014-01-18 00:00:00 Completed [facility] Meningococcal Polysaccharide (groups A, C, Y and W-135) conjugate vaccine (MCV4P) 2014-01-18 00:00:00 Completed [facility] HPV 2014-01-18 00:00:00 Completed [facility] Meningococcal Vaccine 2014-01-18 00:00:00 Completed [facility] Varicella (varivax)(chicken pox) 2014-01-18 00:00:00 Completed [facility] TDAP 2014-01-18 00:00:00 Completed [facility] Meningococcal Polysaccharide (groups A, C, Y and W-135) conjugate vaccine (MCV4P) 2014-01-18 00:00:00 Completed [facility] HPV 2014-01-18 00:00:00 Completed [facility] Meningococcal Vaccine 2014-01-18 00:00:00 Completed [facility] Varicella (varivax)(chicken pox) 2014-01-18 00:00:00 Completed [facility] TDAP 2014-01-18 00:00:00 Completed [facility] Meningococcal Polysaccharide (groups A, C, Y and W-135) conjugate vaccine (MCV4P) 2014-01-18 00:00:00 Completed [facility] HPV 2014-01-18 00:00:00 Completed [facility] Meningococcal Vaccine 2014-01-18 00:00:00 Completed [facility] Varicella (varivax)(chicken pox) 2014-01-18 00:00:00 Completed [facility] TDAP 2014-01-18 00:00:00 Completed [facility] Meningococcal Polysaccharide (groups A, C, Y and W-135) conjugate vaccine (MCV4P) 2014-01-18 00:00:00 Completed [facility] HPV 2014-01-18 00:00:00 Completed [facility] Meningococcal Vaccine 2014-01-18 00:00:00 Completed [facility] Varicella (varivax)(chicken pox) 2014-01-18 00:00:00 Completed [facility] TDAP 2014-01-18 00:00:00 Completed [facility] Meningococcal Polysaccharide (groups A, C, Y and W-135) conjugate vaccine (MCV4P) 2014-01-18 00:00:00 Completed [facility] HPV 2014-01-18 00:00:00 Completed [facility] Meningococcal Vaccine 2014-01-18 00:00:00 Completed [facility] Varicella (varivax)(chicken pox) 2014-01-18 00:00:00 Completed [facility] TDAP 2014-01-18 00:00:00 Completed [facility] Meningococcal Polysaccharide (groups A, C, Y and W-135) conjugate vaccine (MCV4P) 2014-01-18 00:00:00 Completed [facility] HPV 2014-01-18 00:00:00 Completed [facility] Meningococcal Vaccine 2014-01-18 00:00:00 Completed [facility] Varicella (varivax)(chicken pox) 2014-01-18 00:00:00 Completed [facility] TDAP 2014-01-18 00:00:00 Completed [facility] Meningococcal Polysaccharide (groups A, C, Y and W-135) conjugate vaccine (MCV4P) 2014-01-18 00:00:00 Completed [facility] HPV 2014-01-18 00:00:00 Completed [facility] Meningococcal Vaccine 2014-01-18 00:00:00 Completed [facility] Varicella (varivax)(chicken pox) 2014-01-18 00:00:00 Completed [facility] TDAP 2014-01-18 00:00:00 Completed [facility] Meningococcal Polysaccharide (groups A, C, Y and W-135) conjugate vaccine (MCV4P) 2014-01-18 00:00:00 Completed [facility] HPV 2014-01-18 00:00:00 Completed [facility] Meningococcal Vaccine 2014-01-18 00:00:00 Completed [facility] Varicella (varivax)(chicken pox) 2014-01-18 00:00:00 Completed [facility] TDAP 2014-01-18 00:00:00 Completed [facility] Meningococcal Polysaccharide (groups A, C, Y and W-135) conjugate vaccine (MCV4P) 2014-01-18 00:00:00 Completed [facility] HPV 2014-01-18 00:00:00 Completed [facility] Meningococcal Vaccine 2014-01-18 00:00:00 Completed [facility] Varicella (varivax)(chicken pox) 2014-01-18 00:00:00 Completed [facility] TDAP 2014-01-18 00:00:00 Completed [facility] Meningococcal Polysaccharide (groups A, C, Y and W-135) conjugate vaccine (MCV4P) 2014-01-18 00:00:00 Completed [facility] HPV 2014-01-18 00:00:00 Completed [facility] Meningococcal Vaccine 2014-01-18 00:00:00 Completed [facility] Varicella (varivax)(chicken pox) 2014-01-18 00:00:00 Completed [facility] TDAP 2014-01-18 00:00:00 Completed [facility] Meningococcal Polysaccharide (groups A, C, Y and W-135) conjugate vaccine (MCV4P) 2014-01-18 00:00:00 Completed [facility] HPV 2014-01-18 00:00:00 Completed [facility] Meningococcal Vaccine 2014-01-18 00:00:00 Completed [facility] Varicella (varivax)(chicken pox) 2014-01-18 00:00:00 Completed [facility] TDAP 2014-01-18 00:00:00 Completed [facility] Meningococcal Polysaccharide (groups A, C, Y and W-135) conjugate vaccine (MCV4P) 2014-01-18 00:00:00 Completed [facility] Influenza Virus Vaccine 2013-09-23 00:00:00 Completed [facility] Influenza Virus Vaccine 2013-09-23 00:00:00 Completed [facility] Influenza Virus Vaccine 2013-09-23 00:00:00 Completed [facility] Influenza Virus Vaccine 2013-09-23 00:00:00 Completed [facility] Influenza Virus Vaccine 2013-09-23 00:00:00 Completed [facility] Influenza Virus Vaccine 2013-09-23 00:00:00 Completed [facility] Influenza Virus Vaccine 2013-09-23 00:00:00 Completed [facility] Influenza Virus Vaccine 2013-09-23 00:00:00 Completed [facility] Influenza Virus Vaccine 2013-09-23 00:00:00 Completed [facility] Influenza Virus Vaccine 2013-09-23 00:00:00 Completed [facility] Influenza Virus Vaccine 2013-09-23 00:00:00 Completed [facility] Influenza Virus Vaccine 2013-09-23 00:00:00 Completed [facility] Influenza Virus Vaccine 2013-09-23 00:00:00 Completed [facility] Influenza Virus Vaccine 2013-09-23 00:00:00 Completed [facility] Influenza Virus Vaccine 2013-09-23 00:00:00 Completed [facility] Influenza Virus Vaccine 2013-09-23 00:00:00 Completed [facility] Influenza Virus Vaccine 2013-09-23 00:00:00 Completed [facility] Influenza Virus Vaccine 2012-11-24 00:00:00 Completed [facility] Influenza Virus Vaccine 2012-11-24 00:00:00 Completed [facility] Influenza Virus Vaccine 2012-11-24 00:00:00 Completed [facility] Influenza Virus Vaccine 2012-11-24 00:00:00 Completed [facility] Influenza Virus Vaccine 2012-11-24 00:00:00 Completed [facility] Influenza Virus Vaccine 2012-11-24 00:00:00 Completed [facility] Influenza Virus Vaccine 2012-11-24 00:00:00 Completed [facility] Influenza Virus Vaccine 2012-11-24 00:00:00 Completed [facility] Influenza Virus Vaccine 2012-11-24 00:00:00 Completed [facility] Influenza Virus Vaccine 2012-11-24 00:00:00 Completed [facility] Influenza Virus Vaccine 2012-11-24 00:00:00 Completed [facility] Influenza Virus Vaccine 2012-11-24 00:00:00 Completed [facility] Influenza Virus Vaccine 2012-11-24 00:00:00 Completed [facility] Influenza Virus Vaccine 2012-11-24 00:00:00 Completed [facility] Influenza Virus Vaccine 2012-11-24 00:00:00 Completed [facility] Influenza Virus Vaccine 2012-11-24 00:00:00 Completed [facility] Influenza Virus Vaccine 2012-11-24 00:00:00 Completed [facility] Influenza Virus Vaccine Nasal 2011-08-23 00:00:00 Completed [facility] Influenza Virus Vaccine Nasal 2011-08-23 00:00:00 Completed [facility] Influenza Virus Vaccine Nasal 2011-08-23 00:00:00 Completed [facility] Influenza Virus Vaccine Nasal 2011-08-23 00:00:00 Completed [facility] Influenza Virus Vaccine Nasal 2011-08-23 00:00:00 Completed [facility] Influenza Virus Vaccine Nasal 2011-08-23 00:00:00 Completed [facility] Influenza Virus Vaccine Nasal 2011-08-23 00:00:00 Completed [facility] Influenza Virus Vaccine Nasal 2011-08-23 00:00:00 Completed [facility] Influenza Virus Vaccine Nasal 2011-08-23 00:00:00 Completed [facility] Influenza Virus Vaccine Nasal 2011-08-23 00:00:00 Completed [facility] Influenza Virus Vaccine Nasal 2011-08-23 00:00:00 Completed [facility] Influenza Virus Vaccine Nasal 2011-08-23 00:00:00 Completed [facility] Influenza Virus Vaccine Nasal 2011-08-23 00:00:00 Completed [facility] Influenza Virus Vaccine Nasal 2011-08-23 00:00:00 Completed [facility] Influenza Virus Vaccine Nasal 2011-08-23 00:00:00 Completed [facility] Influenza Virus Vaccine Nasal 2011-08-23 00:00:00 Completed [facility] Influenza Virus Vaccine Nasal 2011-08-23 00:00:00 Completed [facility] HPV 2011-07-04 00:00:00 Completed [facility] HPV 2011-07-04 00:00:00 Completed [facility] HPV 2011-07-04 00:00:00 Completed [facility] HPV 2011-07-04 00:00:00 Completed [facility] HPV 2011-07-04 00:00:00 Completed [facility] HPV 2011-07-04 00:00:00 Completed [facility] HPV 2011-07-04 00:00:00 Completed [facility] HPV 2011-07-04 00:00:00 Completed [facility] HPV 2011-07-04 00:00:00 Completed [facility] HPV 2011-07-04 00:00:00 Completed [facility] HPV 2011-07-04 00:00:00 Completed [facility] HPV 2011-07-04 00:00:00 Completed [facility] HPV 2011-07-04 00:00:00 Completed [facility] HPV 2011-07-04 00:00:00 Completed [facility] HPV 2011-07-04 00:00:00 Completed [facility] HPV 2011-07-04 00:00:00 Completed [facility] HPV 2011-07-04 00:00:00 Completed [facility] Influenza Virus Vaccine 2010-09-06 00:00:00 Completed [facility] Influenza Virus Vaccine 2010-09-06 00:00:00 Completed [facility] Influenza Virus Vaccine 2010-09-06 00:00:00 Completed [facility] Influenza Virus Vaccine 2010-09-06 00:00:00 Completed [facility] Influenza Virus Vaccine 2010-09-06 00:00:00 Completed [facility] Influenza Virus Vaccine 2010-09-06 00:00:00 Completed [facility] Influenza Virus Vaccine 2010-09-06 00:00:00 Completed [facility] Influenza Virus Vaccine 2010-09-06 00:00:00 Completed [facility] Influenza Virus Vaccine 2010-09-06 00:00:00 Completed [facility] Influenza Virus Vaccine 2010-09-06 00:00:00 Completed [facility] Influenza Virus Vaccine 2010-09-06 00:00:00 Completed [facility] Influenza Virus Vaccine 2010-09-06 00:00:00 Completed [facility] Influenza Virus Vaccine 2010-09-06 00:00:00 Completed [facility] Influenza Virus Vaccine 2010-09-06 00:00:00 Completed [facility] Influenza Virus Vaccine 2010-09-06 00:00:00 Completed [facility] Influenza Virus Vaccine 2010-09-06 00:00:00 Completed [facility] Influenza Virus Vaccine 2010-09-06 00:00:00 Completed [facility] HEPATITIS A 2006-12-16 00:00:00 Completed [facility] HEPATITIS A 2006-12-16 00:00:00 Completed [facility] HEPATITIS A 2006-12-16 00:00:00 Completed [facility] HEPATITIS A 2006-12-16 00:00:00 Completed [facility] HEPATITIS A 2006-12-16 00:00:00 Completed [facility] HEPATITIS A 2006-12-16 00:00:00 Completed [facility] HEPATITIS A 2006-12-16 00:00:00 Completed [facility] HEPATITIS A 2006-12-16 00:00:00 Completed [facility] HEPATITIS A 2006-12-16 00:00:00 Completed [facility] HEPATITIS A 2006-12-16 00:00:00 Completed [facility] HEPATITIS A 2006-12-16 00:00:00 Completed [facility] HEPATITIS A 2006-12-16 00:00:00 Completed [facility] HEPATITIS A 2006-12-16 00:00:00 Completed [facility] HEPATITIS A 2006-12-16 00:00:00 Completed [facility] HEPATITIS A 2006-12-16 00:00:00 Completed [facility] HEPATITIS A 2006-12-16 00:00:00 Completed [facility] HEPATITIS A 2006-12-16 00:00:00 Completed [facility] HEPATITIS A 2005-10-11 00:00:00 Completed [facility] HEPATITIS A 2005-10-11 00:00:00 Completed [facility] HEPATITIS A 2005-10-11 00:00:00 Completed [facility] HEPATITIS A 2005-10-11 00:00:00 Completed [facility] HEPATITIS A 2005-10-11 00:00:00 Completed [facility] HEPATITIS A 2005-10-11 00:00:00 Completed [facility] HEPATITIS A 2005-10-11 00:00:00 Completed [facility] HEPATITIS A 2005-10-11 00:00:00 Completed [facility] HEPATITIS A 2005-10-11 00:00:00 Completed [facility] HEPATITIS A 2005-10-11 00:00:00 Completed [facility] HEPATITIS A 2005-10-11 00:00:00 Completed [facility] HEPATITIS A 2005-10-11 00:00:00 Completed [facility] HEPATITIS A 2005-10-11 00:00:00 Completed [facility] HEPATITIS A 2005-10-11 00:00:00 Completed [facility] HEPATITIS A 2005-10-11 00:00:00 Completed [facility] HEPATITIS A 2005-10-11 00:00:00 Completed [facility] HEPATITIS A 2005-10-11 00:00:00 Completed [facility] Influenza Virus Vaccine 2003-09-06 00:00:00 Completed [facility] Influenza Virus Vaccine 2003-09-06 00:00:00 Completed [facility] Influenza Virus Vaccine 2003-09-06 00:00:00 Completed [facility] Influenza Virus Vaccine 2003-09-06 00:00:00 Completed [facility] Influenza Virus Vaccine 2003-09-06 00:00:00 Completed [facility] Influenza Virus Vaccine 2003-09-06 00:00:00 Completed [facility] Influenza Virus Vaccine 2003-09-06 00:00:00 Completed [facility] Influenza Virus Vaccine 2003-09-06 00:00:00 Completed [facility] Influenza Virus Vaccine 2003-09-06 00:00:00 Completed [facility] Influenza Virus Vaccine 2003-09-06 00:00:00 Completed [facility] Influenza Virus Vaccine 2003-09-06 00:00:00 Completed [facility] Influenza Virus Vaccine 2003-09-06 00:00:00 Completed [facility] Influenza Virus Vaccine 2003-09-06 00:00:00 Completed [facility] Influenza Virus Vaccine 2003-09-06 00:00:00 Completed [facility] Influenza Virus Vaccine 2003-09-06 00:00:00 Completed [facility] Influenza Virus Vaccine 2003-09-06 00:00:00 Completed [facility] Influenza Virus Vaccine 2003-09-06 00:00:00 Completed [facility] DTAP 2003-02-08 00:00:00 Completed [facility] HIB 4 Dose Schedule 2003-02-08 00:00:00 Completed [facility] TDAP 2003-02-08 00:00:00 Completed [facility] Heamophilus Influenza B 2003-02-08 00:00:00 Completed [facility] DTAP 2003-02-08 00:00:00 Completed [facility] HIB 4 Dose Schedule 2003-02-08 00:00:00 Completed [facility] TDAP 2003-02-08 00:00:00 Completed [facility] Heamophilus Influenza B 2003-02-08 00:00:00 Completed [facility] DTAP 2003-02-08 00:00:00 Completed [facility] HIB 4 Dose Schedule 2003-02-08 00:00:00 Completed [facility] TDAP 2003-02-08 00:00:00 Completed [facility] Heamophilus Influenza B 2003-02-08 00:00:00 Completed [facility] DTAP 2003-02-08 00:00:00 Completed [facility] HIB 4 Dose Schedule 2003-02-08 00:00:00 Completed [facility] TDAP 2003-02-08 00:00:00 Completed [facility] Heamophilus Influenza B 2003-02-08 00:00:00 Completed [facility] DTAP 2003-02-08 00:00:00 Completed [facility] HIB 4 Dose Schedule 2003-02-08 00:00:00 Completed [facility] TDAP 2003-02-08 00:00:00 Completed [facility] Heamophilus Influenza B 2003-02-08 00:00:00 Completed [facility] DTAP 2003-02-08 00:00:00 Completed [facility] HIB 4 Dose Schedule 2003-02-08 00:00:00 Completed [facility] TDAP 2003-02-08 00:00:00 Completed [facility] Heamophilus Influenza B 2003-02-08 00:00:00 Completed [facility] DTAP 2003-02-08 00:00:00 Completed [facility] HIB 4 Dose Schedule 2003-02-08 00:00:00 Completed [facility] TDAP 2003-02-08 00:00:00 Completed [facility] Heamophilus Influenza B 2003-02-08 00:00:00 Completed [facility] DTAP 2003-02-08 00:00:00 Completed [facility] HIB 4 Dose Schedule 2003-02-08 00:00:00 Completed [facility] TDAP 2003-02-08 00:00:00 Completed [facility] Heamophilus Influenza B 2003-02-08 00:00:00 Completed [facility] DTAP 2003-02-08 00:00:00 Completed [facility] HIB 4 Dose Schedule 2003-02-08 00:00:00 Completed [facility] TDAP 2003-02-08 00:00:00 Completed [facility] Heamophilus Influenza B 2003-02-08 00:00:00 Completed [facility] DTAP 2003-02-08 00:00:00 Completed [facility] HIB 4 Dose Schedule 2003-02-08 00:00:00 Completed [facility] TDAP 2003-02-08 00:00:00 Completed [facility] Heamophilus Influenza B 2003-02-08 00:00:00 Completed [facility] DTAP 2003-02-08 00:00:00 Completed [facility] HIB 4 Dose Schedule 2003-02-08 00:00:00 Completed [facility] TDAP 2003-02-08 00:00:00 Completed [facility] Heamophilus Influenza B 2003-02-08 00:00:00 Completed [facility] DTAP 2003-02-08 00:00:00 Completed [facility] HIB 4 Dose Schedule 2003-02-08 00:00:00 Completed [facility] TDAP 2003-02-08 00:00:00 Completed [facility] Heamophilus Influenza B 2003-02-08 00:00:00 Completed [facility] DTAP 2003-02-08 00:00:00 Completed [facility] HIB 4 Dose Schedule 2003-02-08 00:00:00 Completed [facility] TDAP 2003-02-08 00:00:00 Completed [facility] Heamophilus Influenza B 2003-02-08 00:00:00 Completed [facility] DTAP 2003-02-08 00:00:00 Completed [facility] HIB 4 Dose Schedule 2003-02-08 00:00:00 Completed [facility] TDAP 2003-02-08 00:00:00 Completed [facility] Heamophilus Influenza B 2003-02-08 00:00:00 Completed [facility] DTAP 2003-02-08 00:00:00 Completed [facility] HIB 4 Dose Schedule 2003-02-08 00:00:00 Completed [facility] TDAP 2003-02-08 00:00:00 Completed [facility] Heamophilus Influenza B 2003-02-08 00:00:00 Completed [facility] DTAP 2003-02-08 00:00:00 Completed [facility] HIB 4 Dose Schedule 2003-02-08 00:00:00 Completed [facility] TDAP 2003-02-08 00:00:00 Completed [facility] Heamophilus Influenza B 2003-02-08 00:00:00 Completed [facility] DTAP 2003-02-08 00:00:00 Completed [facility] HIB 4 Dose Schedule 2003-02-08 00:00:00 Completed [facility] TDAP 2003-02-08 00:00:00 Completed [facility] Heamophilus Influenza B 2003-02-08 00:00:00 Completed [facility] Varicella (varivax)(chicken pox) 2002-11-23 00:00:00 Completed [facility] MMR 2002-11-23 00:00:00 Completed [facility] IPV 2002-11-23 00:00:00 Completed [facility] Varicella (varivax)(chicken pox) 2002-11-23 00:00:00 Completed [facility] MMR 2002-11-23 00:00:00 Completed [facility] IPV 2002-11-23 00:00:00 Completed [facility] Varicella (varivax)(chicken pox) 2002-11-23 00:00:00 Completed [facility] MMR 2002-11-23 00:00:00 Completed [facility] IPV 2002-11-23 00:00:00 Completed [facility] Varicella (varivax)(chicken pox) 2002-11-23 00:00:00 Completed [facility] MMR 2002-11-23 00:00:00 Completed [facility] IPV 2002-11-23 00:00:00 Completed [facility] Varicella (varivax)(chicken pox) 2002-11-23 00:00:00 Completed [facility] MMR 2002-11-23 00:00:00 Completed [facility] IPV 2002-11-23 00:00:00 Completed [facility] Varicella (varivax)(chicken pox) 2002-11-23 00:00:00 Completed [facility] MMR 2002-11-23 00:00:00 Completed [facility] IPV 2002-11-23 00:00:00 Completed [facility] Varicella (varivax)(chicken pox) 2002-11-23 00:00:00 Completed [facility] MMR 2002-11-23 00:00:00 Completed [facility] IPV 2002-11-23 00:00:00 Completed [facility] Varicella (varivax)(chicken pox) 2002-11-23 00:00:00 Completed [facility] MMR 2002-11-23 00:00:00 Completed [facility] IPV 2002-11-23 00:00:00 Completed [facility] Varicella (varivax)(chicken pox) 2002-11-23 00:00:00 Completed [facility] MMR 2002-11-23 00:00:00 Completed [facility] IPV 2002-11-23 00:00:00 Completed [facility] Varicella (varivax)(chicken pox) 2002-11-23 00:00:00 Completed [facility] MMR 2002-11-23 00:00:00 Completed [facility] IPV 2002-11-23 00:00:00 Completed [facility] Varicella (varivax)(chicken pox) 2002-11-23 00:00:00 Completed [facility] MMR 2002-11-23 00:00:00 Completed [facility] IPV 2002-11-23 00:00:00 Completed [facility] Varicella (varivax)(chicken pox) 2002-11-23 00:00:00 Completed [facility] MMR 2002-11-23 00:00:00 Completed [facility] IPV 2002-11-23 00:00:00 Completed [facility] Varicella (varivax)(chicken pox) 2002-11-23 00:00:00 Completed [facility] MMR 2002-11-23 00:00:00 Completed [facility] IPV 2002-11-23 00:00:00 Completed [facility] Varicella (varivax)(chicken pox) 2002-11-23 00:00:00 Completed [facility] MMR 2002-11-23 00:00:00 Completed [facility] IPV 2002-11-23 00:00:00 Completed [facility] Varicella (varivax)(chicken pox) 2002-11-23 00:00:00 Completed [facility] MMR 2002-11-23 00:00:00 Completed [facility] IPV 2002-11-23 00:00:00 Completed [facility] Varicella (varivax)(chicken pox) 2002-11-23 00:00:00 Completed [facility] MMR 2002-11-23 00:00:00 Completed [facility] IPV 2002-11-23 00:00:00 Completed [facility] Varicella (varivax)(chicken pox) 2002-11-23 00:00:00 Completed [facility] MMR 2002-11-23 00:00:00 Completed [facility] IPV 2002-11-23 00:00:00 Completed [facility] DTAP 2002-08-03 00:00:00 Completed [facility] HIB 4 Dose Schedule 2002-08-03 00:00:00 Completed [facility] Hep B, Adol or Pedi Dosage 2002-08-03 00:00:00 Completed [facility] TDAP 2002-08-03 00:00:00 Completed [facility] Heamophilus Influenza B 2002-08-03 00:00:00 Completed [facility] DTAP 2002-08-03 00:00:00 Completed [facility] HIB 4 Dose Schedule 2002-08-03 00:00:00 Completed [facility] Hep B, Adol or Pedi Dosage 2002-08-03 00:00:00 Completed [facility] TDAP 2002-08-03 00:00:00 Completed [facility] Heamophilus Influenza B 2002-08-03 00:00:00 Completed [facility] DTAP 2002-08-03 00:00:00 Completed [facility] HIB 4 Dose Schedule 2002-08-03 00:00:00 Completed [facility] Hep B, Adol or Pedi Dosage 2002-08-03 00:00:00 Completed [facility] TDAP 2002-08-03 00:00:00 Completed [facility] Heamophilus Influenza B 2002-08-03 00:00:00 Completed [facility] DTAP 2002-08-03 00:00:00 Completed [facility] HIB 4 Dose Schedule 2002-08-03 00:00:00 Completed [facility] Hep B, Adol or Pedi Dosage 2002-08-03 00:00:00 Completed [facility] TDAP 2002-08-03 00:00:00 Completed [facility] Heamophilus Influenza B 2002-08-03 00:00:00 Completed [facility] DTAP 2002-08-03 00:00:00 Completed [facility] HIB 4 Dose Schedule 2002-08-03 00:00:00 Completed [facility] Hep B, Adol or Pedi Dosage 2002-08-03 00:00:00 Completed [facility] TDAP 2002-08-03 00:00:00 Completed [facility] Heamophilus Influenza B 2002-08-03 00:00:00 Completed [facility] DTAP 2002-08-03 00:00:00 Completed [facility] HIB 4 Dose Schedule 2002-08-03 00:00:00 Completed [facility] Hep B, Adol or Pedi Dosage 2002-08-03 00:00:00 Completed [facility] TDAP 2002-08-03 00:00:00 Completed [facility] Heamophilus Influenza B 2002-08-03 00:00:00 Completed [facility] DTAP 2002-08-03 00:00:00 Completed [facility] HIB 4 Dose Schedule 2002-08-03 00:00:00 Completed [facility] Hep B, Adol or Pedi Dosage 2002-08-03 00:00:00 Completed [facility] TDAP 2002-08-03 00:00:00 Completed [facility] Heamophilus Influenza B 2002-08-03 00:00:00 Completed [facility] DTAP 2002-08-03 00:00:00 Completed [facility] HIB 4 Dose Schedule 2002-08-03 00:00:00 Completed [facility] Hep B, Adol or Pedi Dosage 2002-08-03 00:00:00 Completed [facility] TDAP 2002-08-03 00:00:00 Completed [facility] Heamophilus Influenza B 2002-08-03 00:00:00 Completed [facility] DTAP 2002-08-03 00:00:00 Completed [facility] HIB 4 Dose Schedule 2002-08-03 00:00:00 Completed [facility] Hep B, Adol or Pedi Dosage 2002-08-03 00:00:00 Completed [facility] TDAP 2002-08-03 00:00:00 Completed [facility] Heamophilus Influenza B 2002-08-03 00:00:00 Completed [facility] DTAP 2002-08-03 00:00:00 Completed [facility] HIB 4 Dose Schedule 2002-08-03 00:00:00 Completed [facility] Hep B, Adol or Pedi Dosage 2002-08-03 00:00:00 Completed [facility] TDAP 2002-08-03 00:00:00 Completed [facility] Heamophilus Influenza B 2002-08-03 00:00:00 Completed [facility] DTAP 2002-08-03 00:00:00 Completed [facility] HIB 4 Dose Schedule 2002-08-03 00:00:00 Completed [facility] Hep B, Adol or Pedi Dosage 2002-08-03 00:00:00 Completed [facility] TDAP 2002-08-03 00:00:00 Completed [facility] Heamophilus Influenza B 2002-08-03 00:00:00 Completed [facility] DTAP 2002-08-03 00:00:00 Completed [facility] HIB 4 Dose Schedule 2002-08-03 00:00:00 Completed [facility] Hep B, Adol or Pedi Dosage 2002-08-03 00:00:00 Completed [facility] TDAP 2002-08-03 00:00:00 Completed [facility] Heamophilus Influenza B 2002-08-03 00:00:00 Completed [facility] DTAP 2002-08-03 00:00:00 Completed [facility] HIB 4 Dose Schedule 2002-08-03 00:00:00 Completed [facility] Hep B, Adol or Pedi Dosage 2002-08-03 00:00:00 Completed [facility] TDAP 2002-08-03 00:00:00 Completed [facility] Heamophilus Influenza B 2002-08-03 00:00:00 Completed [facility] DTAP 2002-08-03 00:00:00 Completed [facility] HIB 4 Dose Schedule 2002-08-03 00:00:00 Completed [facility] Hep B, Adol or Pedi Dosage 2002-08-03 00:00:00 Completed [facility] TDAP 2002-08-03 00:00:00 Completed [facility] Heamophilus Influenza B 2002-08-03 00:00:00 Completed [facility] DTAP 2002-08-03 00:00:00 Completed [facility] HIB 4 Dose Schedule 2002-08-03 00:00:00 Completed [facility] Hep B, Adol or Pedi Dosage 2002-08-03 00:00:00 Completed [facility] TDAP 2002-08-03 00:00:00 Completed [facility] Heamophilus Influenza B 2002-08-03 00:00:00 Completed [facility] DTAP 2002-08-03 00:00:00 Completed [facility] HIB 4 Dose Schedule 2002-08-03 00:00:00 Completed [facility] Hep B, Adol or Pedi Dosage 2002-08-03 00:00:00 Completed [facility] TDAP 2002-08-03 00:00:00 Completed [facility] Heamophilus Influenza B 2002-08-03 00:00:00 Completed [facility] DTAP 2002-08-03 00:00:00 Completed [facility] HIB 4 Dose Schedule 2002-08-03 00:00:00 Completed [facility] Hep B, Adol or Pedi Dosage 2002-08-03 00:00:00 Completed [facility] TDAP 2002-08-03 00:00:00 Completed [facility] Heamophilus Influenza B 2002-08-03 00:00:00 Completed [facility] DTAP 2002-03-15 00:00:00 Completed [facility] HIB 4 Dose Schedule 2002-03-15 00:00:00 Completed [facility] TDAP 2002-03-15 00:00:00 Completed [facility] Heamophilus Influenza B 2002-03-15 00:00:00 Completed [facility] IPV 2002-03-15 00:00:00 Completed [facility] DTAP 2002-03-15 00:00:00 Completed [facility] HIB 4 Dose Schedule 2002-03-15 00:00:00 Completed [facility] TDAP 2002-03-15 00:00:00 Completed [facility] Heamophilus Influenza B 2002-03-15 00:00:00 Completed [facility] IPV 2002-03-15 00:00:00 Completed [facility] DTAP 2002-03-15 00:00:00 Completed [facility] HIB 4 Dose Schedule 2002-03-15 00:00:00 Completed [facility] TDAP 2002-03-15 00:00:00 Completed [facility] Heamophilus Influenza B 2002-03-15 00:00:00 Completed [facility] IPV 2002-03-15 00:00:00 Completed [facility] DTAP 2002-03-15 00:00:00 Completed [facility] HIB 4 Dose Schedule 2002-03-15 00:00:00 Completed [facility] TDAP 2002-03-15 00:00:00 Completed [facility] Heamophilus Influenza B 2002-03-15 00:00:00 Completed [facility] IPV 2002-03-15 00:00:00 Completed [facility] DTAP 2002-03-15 00:00:00 Completed [facility] HIB 4 Dose Schedule 2002-03-15 00:00:00 Completed [facility] TDAP 2002-03-15 00:00:00 Completed [facility] Heamophilus Influenza B 2002-03-15 00:00:00 Completed [facility] IPV 2002-03-15 00:00:00 Completed [facility] DTAP 2002-03-15 00:00:00 Completed [facility] HIB 4 Dose Schedule 2002-03-15 00:00:00 Completed [facility] TDAP 2002-03-15 00:00:00 Completed [facility] Heamophilus Influenza B 2002-03-15 00:00:00 Completed [facility] IPV 2002-03-15 00:00:00 Completed [facility] DTAP 2002-03-15 00:00:00 Completed [facility] HIB 4 Dose Schedule 2002-03-15 00:00:00 Completed [facility] TDAP 2002-03-15 00:00:00 Completed [facility] Heamophilus Influenza B 2002-03-15 00:00:00 Completed [facility] IPV 2002-03-15 00:00:00 Completed [facility] DTAP 2002-03-15 00:00:00 Completed [facility] HIB 4 Dose Schedule 2002-03-15 00:00:00 Completed [facility] TDAP 2002-03-15 00:00:00 Completed [facility] Heamophilus Influenza B 2002-03-15 00:00:00 Completed [facility] IPV 2002-03-15 00:00:00 Completed [facility] DTAP 2002-03-15 00:00:00 Completed [facility] HIB 4 Dose Schedule 2002-03-15 00:00:00 Completed [facility] TDAP 2002-03-15 00:00:00 Completed [facility] Heamophilus Influenza B 2002-03-15 00:00:00 Completed [facility] IPV 2002-03-15 00:00:00 Completed [facility] DTAP 2002-03-15 00:00:00 Completed [facility] HIB 4 Dose Schedule 2002-03-15 00:00:00 Completed [facility] TDAP 2002-03-15 00:00:00 Completed [facility] Heamophilus Influenza B 2002-03-15 00:00:00 Completed [facility] IPV 2002-03-15 00:00:00 Completed [facility] DTAP 2002-03-15 00:00:00 Completed [facility] HIB 4 Dose Schedule 2002-03-15 00:00:00 Completed [facility] TDAP 2002-03-15 00:00:00 Completed [facility] Heamophilus Influenza B 2002-03-15 00:00:00 Completed [facility] IPV 2002-03-15 00:00:00 Completed [facility] DTAP 2002-03-15 00:00:00 Completed [facility] HIB 4 Dose Schedule 2002-03-15 00:00:00 Completed [facility] TDAP 2002-03-15 00:00:00 Completed [facility] Heamophilus Influenza B 2002-03-15 00:00:00 Completed [facility] IPV 2002-03-15 00:00:00 Completed [facility] DTAP 2002-03-15 00:00:00 Completed [facility] HIB 4 Dose Schedule 2002-03-15 00:00:00 Completed [facility] TDAP 2002-03-15 00:00:00 Completed [facility] Heamophilus Influenza B 2002-03-15 00:00:00 Completed [facility] IPV 2002-03-15 00:00:00 Completed [facility] DTAP 2002-03-15 00:00:00 Completed [facility] HIB 4 Dose Schedule 2002-03-15 00:00:00 Completed [facility] TDAP 2002-03-15 00:00:00 Completed [facility] Heamophilus Influenza B 2002-03-15 00:00:00 Completed [facility] IPV 2002-03-15 00:00:00 Completed [facility] DTAP 2002-03-15 00:00:00 Completed [facility] HIB 4 Dose Schedule 2002-03-15 00:00:00 Completed [facility] TDAP 2002-03-15 00:00:00 Completed [facility] Heamophilus Influenza B 2002-03-15 00:00:00 Completed [facility] IPV 2002-03-15 00:00:00 Completed [facility] DTAP 2002-03-15 00:00:00 Completed [facility] HIB 4 Dose Schedule 2002-03-15 00:00:00 Completed [facility] TDAP 2002-03-15 00:00:00 Completed [facility] Heamophilus Influenza B 2002-03-15 00:00:00 Completed [facility] IPV 2002-03-15 00:00:00 Completed [facility] DTAP 2002-03-15 00:00:00 Completed [facility] HIB 4 Dose Schedule 2002-03-15 00:00:00 Completed [facility] TDAP 2002-03-15 00:00:00 Completed [facility] Heamophilus Influenza B 2002-03-15 00:00:00 Completed [facility] IPV 2002-03-15 00:00:00 Completed [facility] DTAP 2001 00:00:00 Completed [facility] HIB 4 Dose Schedule 2001 00:00:00 Completed [facility] TDAP 2001 00:00:00 Completed [facility] Heamophilus Influenza B 2001 00:00:00 Completed [facility] IPV 2001 00:00:00 Completed [facility] DTAP 2001 00:00:00 Completed [facility] HIB 4 Dose Schedule 2001 00:00:00 Completed [facility] TDAP 2001 00:00:00 Completed [facility] Heamophilus Influenza B 2001 00:00:00 Completed [facility] IPV 2001 00:00:00 Completed [facility] DTAP 2001 00:00:00 Completed [facility] HIB 4 Dose Schedule 2001 00:00:00 Completed [facility] TDAP 2001 00:00:00 Completed [facility] Heamophilus Influenza B 2001 00:00:00 Completed [facility] IPV 2001 00:00:00 Completed [facility] DTAP 2001 00:00:00 Completed [facility] HIB 4 Dose Schedule 2001 00:00:00 Completed [facility] TDAP 2001 00:00:00 Completed [facility] Heamophilus Influenza B 2001 00:00:00 Completed [facility] IPV 2001 00:00:00 Completed [facility] DTAP 2001 00:00:00 Completed [facility] HIB 4 Dose Schedule 2001 00:00:00 Completed [facility] TDAP 2001 00:00:00 Completed [facility] Heamophilus Influenza B 2001 00:00:00 Completed [facility] IPV 2001 00:00:00 Completed [facility] DTAP 2001 00:00:00 Completed [facility] HIB 4 Dose Schedule 2001 00:00:00 Completed [facility] TDAP 2001 00:00:00 Completed [facility] Heamophilus Influenza B 2001 00:00:00 Completed [facility] IPV 2001 00:00:00 Completed [facility] DTAP 2001 00:00:00 Completed [facility] HIB 4 Dose Schedule 2001 00:00:00 Completed [facility] TDAP 2001 00:00:00 Completed [facility] Heamophilus Influenza B 2001 00:00:00 Completed [facility] IPV 2001 00:00:00 Completed [facility] DTAP 2001 00:00:00 Completed [facility] HIB 4 Dose Schedule 2001 00:00:00 Completed [facility] TDAP 2001 00:00:00 Completed [facility] Heamophilus Influenza B 2001 00:00:00 Completed [facility] IPV 2001 00:00:00 Completed [facility] DTAP 2001 00:00:00 Completed [facility] HIB 4 Dose Schedule 2001 00:00:00 Completed [facility] TDAP 2001 00:00:00 Completed [facility] Heamophilus Influenza B 2001 00:00:00 Completed [facility] IPV 2001 00:00:00 Completed [facility] DTAP 2001 00:00:00 Completed [facility] HIB 4 Dose Schedule 2001 00:00:00 Completed [facility] TDAP 2001 00:00:00 Completed [facility] Heamophilus Influenza B 2001 00:00:00 Completed [facility] IPV 2001 00:00:00 Completed [facility] DTAP 2001 00:00:00 Completed [facility] HIB 4 Dose Schedule 2001 00:00:00 Completed [facility] TDAP 2001 00:00:00 Completed [facility] Heamophilus Influenza B 2001 00:00:00 Completed [facility] IPV 2001 00:00:00 Completed [facility] DTAP 2001 00:00:00 Completed [facility] HIB 4 Dose Schedule 2001 00:00:00 Completed [facility] TDAP 2001 00:00:00 Completed [facility] Heamophilus Influenza B 2001 00:00:00 Completed [facility] IPV 2001 00:00:00 Completed [facility] DTAP 2001 00:00:00 Completed [facility] HIB 4 Dose Schedule 2001 00:00:00 Completed [facility] TDAP 2001 00:00:00 Completed [facility] Heamophilus Influenza B 2001 00:00:00 Completed [facility] IPV 2001 00:00:00 Completed [facility] DTAP 2001 00:00:00 Completed [facility] HIB 4 Dose Schedule 2001 00:00:00 Completed [facility] TDAP 2001 00:00:00 Completed [facility] Heamophilus Influenza B 2001 00:00:00 Completed [facility] IPV 2001 00:00:00 Completed [facility] DTAP 2001 00:00:00 Completed [facility] HIB 4 Dose Schedule 2001 00:00:00 Completed [facility] TDAP 2001 00:00:00 Completed [facility] Heamophilus Influenza B 2001 00:00:00 Completed [facility] IPV 2001 00:00:00 Completed [facility] DTAP 2001 00:00:00 Completed [facility] HIB 4 Dose Schedule 2001 00:00:00 Completed [facility] TDAP 2001 00:00:00 Completed [facility] Heamophilus Influenza B 2001 00:00:00 Completed [facility] IPV 2001 00:00:00 Completed [facility] DTAP 2001 00:00:00 Completed [facility] HIB 4 Dose Schedule 2001 00:00:00 Completed [facility] TDAP 2001 00:00:00 Completed [facility] Heamophilus Influenza B 2001 00:00:00 Completed [facility] IPV 2001 00:00:00 Completed [facility] Hep B, Adol or Pedi Dosage 2001 00:00:00 Completed [facility] Hep B, Adol or Pedi Dosage 2001 00:00:00 Completed [facility] Hep B, Adol or Pedi Dosage 2001 00:00:00 Completed [facility] Hep B, Adol or Pedi Dosage 2001 00:00:00 Completed [facility] Hep B, Adol or Pedi Dosage 2001 00:00:00 Completed [facility] Hep B, Adol or Pedi Dosage 2001 00:00:00 Completed [facility] Hep B, Adol or Pedi Dosage 2001 00:00:00 Completed [facility] Hep B, Adol or Pedi Dosage 2001 00:00:00 Completed [facility] Hep B, Adol or Pedi Dosage 2001 00:00:00 Completed [facility] Hep B, Adol or Pedi Dosage 2001 00:00:00 Completed [facility] Hep B, Adol or Pedi Dosage 2001 00:00:00 Completed [facility] Hep B, Adol or Pedi Dosage 2001 00:00:00 Completed [facility] Hep B, Adol or Pedi Dosage 2001 00:00:00 Completed [facility] Hep B, Adol or Pedi Dosage 2001 00:00:00 Completed [facility] Hep B, Adol or Pedi Dosage 2001 00:00:00 Completed [facility] Hep B, Adol or Pedi Dosage 2001 00:00:00 Completed [facility] Hep B, Adol or Pedi Dosage 2001 00:00:00 Completed [facility] Hep B, Adol or Pedi Dosage 2001 00:00:00 Completed [facility] Hep B, Adol or Pedi Dosage 2001 00:00:00 Completed [facility] Hep B, Adol or Pedi Dosage 2001 00:00:00 Completed [facility] Hep B, Adol or Pedi Dosage 2001 00:00:00 Completed [facility] Hep B, Adol or Pedi Dosage 2001 00:00:00 Completed [facility] Hep B, Adol or Pedi Dosage 2001 00:00:00 Completed [facility] Hep B, Adol or Pedi Dosage 2001 00:00:00 Completed [facility] Hep B, Adol or Pedi Dosage 2001 00:00:00 Completed [facility] Hep B, Adol or Pedi Dosage 2001 00:00:00 Completed [facility] Hep B, Adol or Pedi Dosage 2001 00:00:00 Completed [facility] Hep B, Adol or Pedi Dosage 2001 00:00:00 Completed [facility] Hep B, Adol or Pedi Dosage 2001 00:00:00 Completed [facility] Hep B, Adol or Pedi Dosage 2001 00:00:00 Completed [facility] Hep B, Adol or Pedi Dosage 2001 00:00:00 Completed [facility] Hep B, Adol or Pedi Dosage 2001 00:00:00 Completed [facility] Hep B, Adol or Pedi Dosage 2001 00:00:00 Completed [facility] Hep B, Adol or Pedi Dosage 2001 00:00:00 Completed [facility] Rho (d) Immune Globulin Unknown Completed [facility] Influenza Virus Vaccine Quad .5 mL IM 6+ MO (FLUZONE/FLULAVAL/FL UARIX) Unknown Completed [facility] TDAP (ADACEL) VACCINE Unknown Completed [facility] MMR Unknown Completed [facility] Rho (d) Immune Globulin Unknown Completed [facility] DTAP Unknown Completed [facility] DTAP Unknown Completed [facility] DTAP Unknown Completed [facility] DTAP Unknown Completed [facility] HIB 4 Dose Schedule Unknown Completed [facility] HIB 4 Dose Schedule Unknown Completed [facility] HIB 4 Dose Schedule Unknown Completed [facility] HIB 4 Dose Schedule Unknown Completed [facility] HEPATITIS A Unknown Completed [facility] HEPATITIS A Unknown Completed [facility] Hep B, Adol or Pedi Dosage Unknown Completed [facility] Hep B, Adol or Pedi Dosage Unknown Completed [facility] Hep B, Adol or Pedi Dosage Unknown Completed [facility] HPV Unknown Completed [facility] HPV Unknown Completed [facility] Influenza Virus Vaccine Unknown Completed [facility] Meningococcal Vaccine Unknown Completed [facility] Varicella (varivax)(chicken pox) Unknown Completed [facility] MMR Unknown Completed [facility] Varicella (varivax)(chicken pox) Unknown Completed [facility] Rho (d) Immune Globulin Unknown Completed [facility] TDAP Unknown Completed [facility] Influenza Virus Vaccine Quad IM, Preserv and ABX Free 6 MO-64 YRS (FLUCELVAX) Unknown Completed [facility] Influenza Virus Vaccine Unknown Completed [facility] Influenza Virus Vaccine Unknown Completed [facility] Influenza Virus Vaccine Unknown Completed [facility] Influenza Virus Vaccine Unknown Completed [facility] TDAP Unknown Completed [facility] TDAP Unknown Completed [facility] TDAP Unknown Completed [facility] TDAP Unknown Completed [facility] Heamophilus Influenza B Unknown Completed [facility] Heamophilus Influenza B Unknown Completed [facility] Heamophilus Influenza B Unknown Completed [facility] Heamophilus Influenza B Unknown Completed [facility] Influenza Virus Vaccine Quad IM 3+ YRS Unknown Completed [facility] Influenza Virus Vaccine Quad IM 3+ YRS Unknown Completed [facility] Influenza Virus Vaccine Nasal Unknown Completed [facility] Influenza Virus Vaccine Nasal Unknown Completed [facility] IPV Unknown Completed [facility] IPV Unknown Completed [facility] IPV Unknown Completed [facility] Influenza Virus Vaccine Unknown Completed [facility] TDAP Unknown Completed [facility] Meningococcal Polysaccharide (groups A, C, Y and W-135) conjugate vaccine (MCV4P) Unknown Completed [facility] Rho (d) Immune Globulin Unknown Completed [facility] Influenza Virus Vaccine Quad .5 mL IM 6+ MO (FLUZONE/FLULAVAL/FL UARIX) Unknown Completed [facility] TDAP (ADACEL) VACCINE Unknown Completed [facility] MMR Unknown Completed [facility] Rho (d) Immune Globulin Unknown Completed [facility] DTAP Unknown Completed [facility] DTAP Unknown Completed [facility] DTAP Unknown Completed [facility] DTAP Unknown Completed [facility] HIB 4 Dose Schedule Unknown Completed [facility] HIB 4 Dose Schedule Unknown Completed [facility] HIB 4 Dose Schedule Unknown Completed [facility] HIB 4 Dose Schedule Unknown Completed [facility] HEPATITIS A Unknown Completed [facility] HEPATITIS A Unknown Completed [facility] Hep B, Adol or Pedi Dosage Unknown Completed [facility] Hep B, Adol or Pedi Dosage Unknown Completed [facility] Hep B, Adol or Pedi Dosage Unknown Completed [facility] HPV Unknown Completed [facility] HPV Unknown Completed [facility] Influenza Virus Vaccine Unknown Completed [facility] Meningococcal Vaccine Unknown Completed [facility] Varicella (varivax)(chicken pox) Unknown Completed [facility] MMR Unknown Completed [facility] Varicella (varivax)(chicken pox) Unknown Completed [facility] Rho (d) Immune Globulin Unknown Completed [facility] TDAP Unknown Completed [facility] Influenza Virus Vaccine Quad IM, Preserv and ABX Free 6 MO-64 YRS (FLUCELVAX) Unknown Completed [facility] Influenza Virus Vaccine Unknown Completed [facility] Influenza Virus Vaccine Unknown Completed [facility] Influenza Virus Vaccine Unknown Completed [facility] Influenza Virus Vaccine Unknown Completed [facility] TDAP Unknown Completed [facility] TDAP Unknown Completed [facility] TDAP Unknown Completed [facility] TDAP Unknown Completed [facility] Heamophilus Influenza B Unknown Completed [facility] Heamophilus Influenza B Unknown Completed [facility] Heamophilus Influenza B Unknown Completed [facility] Heamophilus Influenza B Unknown Completed [facility] Influenza Virus Vaccine Quad IM 3+ YRS Unknown Completed [facility] Influenza Virus Vaccine Quad IM 3+ YRS Unknown Completed [facility] Influenza Virus Vaccine Nasal Unknown Completed [facility] Influenza Virus Vaccine Nasal Unknown Completed [facility] IPV Unknown Completed [facility] IPV Unknown Completed [facility] IPV Unknown Completed [facility] Influenza Virus Vaccine Unknown Completed [facility] TDAP Unknown Completed [facility] Meningococcal Polysaccharide (groups A, C, Y and W-135) conjugate vaccine (MCV4P) Unknown Completed [facility] Rho (d) Immune Globulin Unknown Completed [facility] Influenza Virus Vaccine Quad .5 mL IM 6+ MO (FLUZONE/FLULAVAL/FL UARIX) Unknown Completed [facility] TDAP (ADACEL) VACCINE Unknown Completed [facility] MMR Unknown Completed [facility] Rho (d) Immune Globulin Unknown Completed [facility] DTAP Unknown Completed [facility] DTAP Unknown Completed [facility] DTAP Unknown Completed [facility] DTAP Unknown Completed [facility] HIB 4 Dose Schedule Unknown Completed [facility] HIB 4 Dose Schedule Unknown Completed [facility] HIB 4 Dose Schedule Unknown Completed [facility] HIB 4 Dose Schedule Unknown Completed [facility] HEPATITIS A Unknown Completed [facility] HEPATITIS A Unknown Completed [facility] Hep B, Adol or Pedi Dosage Unknown Completed [facility] Hep B, Adol or Pedi Dosage Unknown Completed [facility] Hep B, Adol or Pedi Dosage Unknown Completed [facility] HPV Unknown Completed [facility] HPV Unknown Completed [facility] Influenza Virus Vaccine Unknown Completed [facility] Meningococcal Vaccine Unknown Completed [facility] Varicella (varivax)(chicken pox) Unknown Completed [facility] MMR Unknown Completed [facility] Varicella (varivax)(chicken pox) Unknown Completed [facility] Rho (d) Immune Globulin Unknown Completed [facility] TDAP Unknown Completed [facility] Influenza Virus Vaccine Quad IM, Preserv and ABX Free 6 MO-64 YRS (FLUCELVAX) Unknown Completed [facility] Influenza Virus Vaccine Unknown Completed [facility] Influenza Virus Vaccine Unknown Completed [facility] Influenza Virus Vaccine Unknown Completed [facility] Influenza Virus Vaccine Unknown Completed [facility] TDAP Unknown Completed [facility] TDAP Unknown Completed [facility] TDAP Unknown Completed [facility] TDAP Unknown Completed [facility] Influenza B Unknown Completed [facility] Influenza B Unknown Completed [facility] Influenza B Unknown Completed [facility] Influenza B Unknown Completed [facility] Influenza Virus Vaccine Quad IM 3+ YRS Unknown Completed [facility] Influenza Virus Vaccine Quad IM 3+ YRS Unknown Completed [facility] Influenza Virus Vaccine Nasal Unknown Completed [facility] Influenza Virus Vaccine Nasal Unknown Completed [facility] IPV Unknown Completed [facility] IPV Unknown Completed [facility] IPV Unknown Completed [facility] Influenza Virus Vaccine Unknown Completed [facility] TDAP Unknown Completed [facility] Meningococcal Polysaccharide (groups A, C, Y and W-135) conjugate vaccine (MCV4P) Unknown Completed [facility] Rho (d) Immune Globulin Unknown Completed [facility] Influenza Virus Vaccine Quad .5 mL IM 6+ MO (FLUZONE/FLULAVAL/FL UARIX) Unknown Completed [facility] TDAP (ADACEL) VACCINE Unknown Completed [facility] MMR Unknown Completed [facility] Rho (d) Immune Globulin Unknown Completed [facility] DTAP Unknown Completed [facility] DTAP Unknown Completed [facility] DTAP Unknown Completed [facility] DTAP Unknown Completed [facility] HIB 4 Dose Schedule Unknown Completed [facility] HIB 4 Dose Schedule Unknown Completed [facility] HIB 4 Dose Schedule Unknown Completed [facility] HIB 4 Dose Schedule Unknown Completed [facility] HEPATITIS A Unknown Completed [facility] Unknown Completed [facility] Hep B, Adol or Pedi Dosage Unknown Completed [facility] Hep B, Adol or Pedi Dosage Unknown Completed [facility] Hep B, Adol or Pedi Dosage Unknown Completed [facility] HPV Unknown Completed [facility] HPV Unknown Completed [facility] Influenza Virus Vaccine Unknown Completed [facility] Meningococcal Vaccine Unknown Completed [facility] Varicella (varivax)(chicken pox) Unknown Completed [facility] MMR Unknown Completed [facility] Varicella (varivax)(chicken pox) Unknown Completed [facility] Rho (d) Immune Globulin Unknown Completed [facility] TDAP Unknown Completed [facility] Influenza Virus Vaccine Quad IM, Preserv and ABX Free 6 MO-64 YRS (FLUCELVAX) Unknown Completed [facility] Influenza Virus Vaccine Unknown Completed [facility] Influenza Virus Vaccine Unknown Completed [facility] Influenza Virus Vaccine Unknown Completed [facility] Influenza Virus Vaccine Unknown Completed [facility] TDAP Unknown Completed [facility] TDAP Unknown Completed [facility] TDAP Unknown Completed [facility] TDAP Unknown Completed [facility] Influenza B Unknown Completed [facility] Influenza B Unknown Completed [facility] Influenza B Unknown Completed [facility] Influenza B Unknown Completed [facility] Influenza Virus Vaccine Quad IM 3+ YRS Unknown Completed [facility] Influenza Virus Vaccine Quad IM 3+ YRS Unknown Completed [facility] Influenza Virus Vaccine Nasal Unknown Completed [facility] Influenza Virus Vaccine Nasal Unknown Completed [facility] IPV Unknown Completed [facility] IPV Unknown Completed [facility] IPV Unknown Completed [facility] Influenza Virus Vaccine Unknown Completed [facility] TDAP Unknown Completed [facility] Meningococcal Polysaccharide (groups A, C, Y and W-135) conjugate vaccine (MCV4P) Unknown Completed [facility] Rho (d) Immune Globulin Unknown Completed [facility] Influenza Virus Vaccine Quad .5 mL IM 6+ MO (FLUZONE/FLULAVAL/FL UARIX) Unknown Completed [facility] TDAP (ADACEL) VACCINE Unknown Completed [facility] MMR Unknown Completed [facility] Rho (d) Immune Globulin Unknown Completed [facility] DTAP Unknown Completed [facility] DTAP Unknown Completed [facility] DTAP Unknown Completed [facility] DTAP Unknown Completed [facility] HIB 4 Dose Schedule Unknown Completed [facility] HIB 4 Dose Schedule Unknown Completed [facility] HIB 4 Dose Schedule Unknown Completed [facility] HIB 4 Dose Schedule Unknown Completed [facility] HEPATITIS A Unknown Completed [facility] HEPATITIS A Unknown Completed [facility] Hep B, Adol or Pedi Dosage Unknown Completed [facility] Hep B, Adol or Pedi Dosage Unknown Completed [facility] Hep B, Adol or Pedi Dosage Unknown Completed [facility] HPV Unknown Completed [facility] HPV Unknown Completed [facility] Influenza Virus Vaccine Unknown Completed [facility] Meningococcal Vaccine Unknown Completed [facility] Varicella (varivax)(chicken pox) Unknown Completed [facility] MMR Unknown Completed [facility] Varicella (varivax)(chicken pox) Unknown Completed [facility] Rho (d) Immune Globulin Unknown Completed [facility] TDAP Unknown Completed [facility] Influenza Virus Vaccine Quad IM, Preserv and ABX Free 6 MO-64 YRS (FLUCELVAX) Unknown Completed [facility] Influenza Virus Vaccine Unknown Completed [facility] Influenza Virus Vaccine Unknown Completed [facility] Influenza Virus Vaccine Unknown Completed [facility] Influenza Virus Vaccine Unknown Completed [facility] TDAP Unknown Completed [facility] TDAP Unknown Completed [facility] TDAP Unknown Completed [facility] TDAP Unknown Completed [facility] Influenza B Unknown Completed [facility] Influenza B Unknown Completed [facility] Influenza B Unknown Completed [facility] Influenza B Unknown Completed [facility] Influenza Virus Vaccine Quad IM 3+ YRS Unknown Completed [facility] Influenza Virus Vaccine Quad IM 3+ YRS Unknown Completed [facility] Influenza Virus Vaccine Nasal Unknown Completed [facility] Influenza Virus Vaccine Nasal Unknown Completed [facility] IPV Unknown Completed [facility] IPV Unknown Completed [facility] IPV Unknown Completed [facility] Influenza Virus Vaccine Unknown Completed [facility] TDAP Unknown Completed [facility] Meningococcal Polysaccharide (groups A, C, Y and W-135) conjugate vaccine (MCV4P) Unknown Completed [facility] Rho (d) Immune Globulin Unknown Completed [facility] Influenza Virus Vaccine Quad .5 mL IM 6+ MO (FLUZONE/FLULAVAL/FL UARIX) Unknown Completed [facility] TDAP (ADACEL) VACCINE Unknown Completed [facility] MMR Unknown Completed [facility] Rho (d) Immune Globulin Unknown Completed [facility] DTAP Unknown Completed [facility] DTAP Unknown Completed [facility] DTAP Unknown Completed [facility] DTAP Unknown Completed [facility] HIB 4 Dose Schedule Unknown Completed [facility] HIB 4 Dose Schedule Unknown Completed [facility] HIB 4 Dose Schedule Unknown Completed [facility] HIB 4 Dose Schedule Unknown Completed [facility] HEPATITIS A Unknown Completed [facility] HEPATITIS A Unknown Completed [facility] Hep B, Adol or Pedi Dosage Unknown Completed [facility] Hep B, Adol or Pedi Dosage Unknown Completed [facility] Hep B, Adol or Pedi Dosage Unknown Completed [facility] HPV Unknown Completed [facility] HPV Unknown Completed [facility] Influenza Virus Vaccine Unknown Completed [facility] Meningococcal Vaccine Unknown Completed [facility] Varicella (varivax)(chicken pox) Unknown Completed [facility] MMR Unknown Completed [facility] Varicella (varivax)(chicken pox) Unknown Completed [facility] Rho (d) Immune Globulin Unknown Completed [facility] TDAP Unknown Completed [facility] Influenza Virus Vaccine Quad IM, Preserv and ABX Free 6 MO-64 YRS (FLUCELVAX) Unknown Completed [facility] Influenza Virus Vaccine Unknown Completed [facility] Influenza Virus Vaccine Unknown Completed [facility] Influenza Virus Vaccine Unknown Completed [facility] Influenza Virus Vaccine Unknown Completed [facility] TDAP Unknown Completed [facility] TDAP Unknown Completed [facility] TDAP Unknown Completed [facility] TDAP Unknown Completed [facility] Influenza B Unknown Completed [facility] Influenza B Unknown Completed [facility] Influenza B Unknown Completed [facility] Influenza B Unknown Completed [facility] Influenza Virus Vaccine Quad IM 3+ YRS Unknown Completed [facility] Influenza Virus Vaccine Quad IM 3+ YRS Unknown Completed [facility] Influenza Virus Vaccine Nasal Unknown Completed [facility] Influenza Virus Vaccine Nasal Unknown Completed [facility] IPV Unknown Completed [facility] IPV Unknown Completed [facility] IPV Unknown Completed [facility] Influenza Virus Vaccine Unknown Completed [facility] TDAP Unknown Completed [facility] Meningococcal Polysaccharide (groups A, C, Y and W-135) conjugate vaccine (MCV4P) Unknown Completed [facility] Rho (d) Immune Globulin Unknown Completed [facility] Influenza Virus Vaccine Quad .5 mL IM 6+ MO (FLUZONE/FLULAVAL/FL UARIX) Unknown Completed [facility] TDAP (ADACEL) VACCINE Unknown Completed [facility] MMR Unknown Completed [facility] Rho (d) Immune Globulin Unknown Completed [facility] DTAP Unknown Completed [facility] DTAP Unknown Completed [facility] DTAP Unknown Completed [facility] DTAP Unknown Completed [facility] HIB 4 Dose Schedule Unknown Completed [facility] HIB 4 Dose Schedule Unknown Completed [facility] HIB 4 Dose Schedule Unknown Completed [facility] HIB 4 Dose Schedule Unknown Completed [facility] HEPATITIS A Unknown [facility] HEPATITIS A Unknown [facility]pleted [facility] Hep B, Adol or Pedi Dosage Unknown Completed [facility] Hep B, Adol or Pedi Dosage Unknown Completed [facility] Hep B, Adol or Pedi Dosage Unknown Completed [facility] HPV Unknown Completed [facility] HPV Unknown Completed [facility] Influenza Virus Vaccine Unknown Completed [facility] Meningococcal Vaccine Unknown Completed [facility] Varicella (varivax)(chicken pox) Unknown Completed [facility] MMR Unknown Completed [facility] Varicella (varivax)(chicken pox) Unknown Completed [facility] Rho (d) Immune Globulin Unknown Completed [facility] TDAP Unknown Completed [facility] Influenza Virus Vaccine Quad IM, Preserv and ABX Free 6 MO-64 YRS (FLUCELVAX) Unknown Completed [facility] Influenza Virus Vaccine Unknown Completed [facility] Influenza Virus Vaccine Unknown Completed [facility] Influenza Virus Vaccine Unknown Completed [facility] Influenza Virus Vaccine Unknown Completed [facility] TDAP Unknown Completed [facility] TDAP Unknown Completed [facility] TDAP Unknown Completed [facility] TDAP Unknown [facility]pleted [facility] Influenza B Unknown Completed [facility] Influenza B Unknown Completed [facility] Influenza B Unknown Completed [facility] Influenza B Unknown Completed [facility] Influenza Virus Vaccine Quad IM 3+ YRS Unknown Completed [facility] Influenza Virus Vaccine Quad IM 3+ YRS Unknown Completed [facility] Influenza Virus Vaccine Nasal Unknown Completed [facility] Influenza Virus Vaccine Nasal Unknown Completed [facility] IPV Unknown Completed [facility] IPV Unknown Completed [facility] IPV Unknown Completed [facility] Influenza Virus Vaccine Unknown Completed [facility] TDAP Unknown Completed [facility] Meningococcal Polysaccharide (groups A, C, Y and W-135) conjugate vaccine (MCV4P) Unknown Completed [facility] Rho (d) Immune Globulin Unknown Completed [facility] Influenza Virus Vaccine Quad .5 mL IM 6+ MO (FLUZONE/FLULAVAL/FL UARIX) Unknown Completed [facility] TDAP (ADACEL) VACCINE Unknown Completed [facility] MMR Unknown Completed [facility] Rho (d) Immune Globulin Unknown Completed [facility] DTAP Unknown Completed [facility] DTAP Unknown Completed [facility] DTAP Unknown Completed [facility] DTAP Unknown Completed [facility] HIB 4 Dose Schedule Unknown Completed [facility] HIB 4 Dose Schedule Unknown Completed [facility] HIB 4 Dose Schedule Unknown Completed [facility] HIB 4 Dose Schedule Unknown Completed [facility] HEPATITIS A Unknown Completed [facility] HEPATITIS A Unknown Completed [facility] Hep B, Adol or Pedi Dosage Unknown Completed [facility] Hep B, Adol or Pedi Dosage Unknown Completed [facility] Hep B, Adol or Pedi Dosage Unknown Completed [facility] HPV Unknown Completed [facility] HPV Unknown Completed [facility] Influenza Virus Vaccine Unknown Completed [facility] Meningococcal Vaccine Unknown Completed [facility] Varicella (varivax)(chicken pox) Unknown Completed [facility] MMR Unknown Completed [facility] Varicella (varivax)(chicken pox) Unknown Completed [facility] Rho (d) Immune Globulin Unknown Completed [facility] TDAP Unknown Completed [facility] Influenza Virus Vaccine Quad IM, Preserv and ABX Free 6 MO-64 YRS (FLUCELVAX) Unknown Completed [facility] Influenza Virus Vaccine Unknown Completed [facility] Influenza Virus Vaccine Unknown Completed [facility] Influenza Virus Vaccine Unknown Completed [facility] Influenza Virus Vaccine Unknown Completed [facility] TDAP Unknown Completed [facility] TDAP Unknown Completed [facility] TDAP Unknown Completed [facility] TDAP Unknown [facility]pleted [facility] Influenza B Unknown Completed [facility] Influenza B Unknown Completed [facility] Influenza B Unknown Completed [facility] Influenza B Unknown Completed [facility] Influenza Virus Vaccine Quad IM 3+ YRS Unknown Completed [facility] Influenza Virus Vaccine Quad IM 3+ YRS Unknown Completed [facility] Influenza Virus Vaccine Nasal Unknown Completed [facility] Influenza Virus Vaccine Nasal Unknown Completed [facility] IPV Unknown Completed [facility] IPV Unknown Completed [facility] IPV Unknown Completed [facility] Influenza Virus Vaccine Unknown Completed [facility] TDAP Unknown Completed [facility] Meningococcal Polysaccharide (groups A, C, Y and W-135) conjugate vaccine (MCV4P) Unknown Completed [facility] Rho (d) Immune Globulin Unknown Completed [facility] Influenza Virus Vaccine Quad .5 mL IM 6+ MO (FLUZONE/FLULAVAL/FL UARIX) Unknown Completed [facility] TDAP (ADACEL) VACCINE Unknown Completed [facility] MMR Unknown Completed [facility] Rho (d) Immune Globulin Unknown Completed [facility] DTAP Unknown Completed [facility] DTAP Unknown Completed [facility] DTAP Unknown Completed [facility] DTAP Unknown Completed [facility] HIB 4 Dose Schedule Unknown Completed [facility] HIB 4 Dose Schedule Unknown Completed [facility] HIB 4 Dose Schedule Unknown Completed [facility] HIB 4 Dose Schedule Unknown Completed [facility] HEPATITIS A Unknown Completed [facility] HEPATITIS A Unknown Completed [facility] Hep B, Adol or Pedi Dosage Unknown Completed [facility] Hep B, Adol or Pedi Dosage Unknown Completed [facility] Hep B, Adol or Pedi Dosage Unknown Completed [facility] HPV Unknown Completed [facility] HPV Unknown Completed [facility] Influenza Virus Vaccine Unknown Completed [facility] Meningococcal Vaccine Unknown Completed [facility] Varicella (varivax)(chicken pox) Unknown Completed [facility] MMR Unknown Completed [facility] Varicella (varivax)(chicken pox) Unknown Completed [facility] Rho (d) Immune Globulin Unknown Completed [facility] TDAP Unknown Completed [facility] Influenza Virus Vaccine Quad IM, Preserv and ABX Free 6 MO-64 YRS (FLUCELVAX) Unknown Completed [facility] Influenza Virus Vaccine Unknown Completed [facility] Influenza Virus Vaccine Unknown Completed [facility] Influenza Virus Vaccine Unknown Completed [facility] Influenza Virus Vaccine Unknown Completed [facility] TDAP Unknown Completed [facility] TDAP Unknown Completed [facility] TDAP Unknown Completed [facility] TDAP Unknown [facility]pleted [facility] Influenza B Unknown Completed [facility] Influenza B Unknown Completed [facility] Influenza B Unknown Completed [facility] Influenza B Unknown Completed [facility] Influenza Virus Vaccine Quad IM 3+ YRS Unknown Completed [facility] Influenza Virus Vaccine Quad IM 3+ YRS Unknown Completed [facility] Influenza Virus Vaccine Nasal Unknown Completed [facility] Influenza Virus Vaccine Nasal Unknown Completed [facility] IPV Unknown Completed [facility] IPV Unknown Completed [facility] IPV Unknown Completed [facility] Influenza Virus Vaccine Unknown Completed [facility] TDAP Unknown Completed [facility] Meningococcal Polysaccharide (groups A, C, Y and W-135) conjugate vaccine (MCV4P) Unknown Completed [facility] Rho (d) Immune Globulin Unknown Completed [facility] Influenza Virus Vaccine Quad .5 mL IM 6+ MO (FLUZONE/FLULAVAL/FL UARIX) Unknown Completed [facility] TDAP (ADACEL) VACCINE Unknown Completed [facility] MMR Unknown Completed [facility] Rho (d) Immune Globulin Unknown Completed [facility] DTAP Unknown Completed [facility] DTAP Unknown Completed [facility] DTAP Unknown Completed [facility] DTAP Unknown Completed [facility] HIB 4 Dose Schedule Unknown Completed [facility] HIB 4 Dose Schedule Unknown Completed [facility] HIB 4 Dose Schedule Unknown Completed [facility] HIB 4 Dose Schedule Unknown Completed [facility] HEPATITIS A Unknown Completed [facility] HEPATITIS A Unknown Completed [facility] Hep B, Adol or Pedi Dosage Unknown Completed [facility] Hep B, Adol or Pedi Dosage Unknown Completed [facility] Hep B, Adol or Pedi Dosage Unknown Completed [facility] HPV Unknown Completed [facility] HPV Unknown Completed [facility] Influenza Virus Vaccine Unknown Completed [facility] Meningococcal Vaccine Unknown Completed [facility] Varicella (varivax)(chicken pox) Unknown Completed [facility] MMR Unknown Completed [facility] Varicella (varivax)(chicken pox) Unknown Completed [facility] Rho (d) Immune Globulin Unknown Completed [facility] TDAP Unknown Completed [facility] Influenza Virus Vaccine Quad IM, Preserv and ABX Free 6 MO-64 YRS (FLUCELVAX) Unknown Completed [facility] Influenza Virus Vaccine Unknown Completed [facility] Influenza Virus Vaccine Unknown Completed [facility] Influenza Virus Vaccine Unknown Completed [facility] Influenza Virus Vaccine Unknown Completed [facility] TDAP Unknown Completed [facility] TDAP Unknown Completed [facility] TDAP Unknown Completed [facility] TDAP Unknown Completed [facility] Influenza B Unknown Completed [facility] Influenza B Unknown Completed [facility] Influenza B Unknown Completed [facility] Influenza B Unknown Completed [facility] Influenza Virus Vaccine Quad IM 3+ YRS Unknown Completed [facility] Influenza Virus Vaccine Quad IM 3+ YRS Unknown Completed [facility] Influenza Virus Vaccine Nasal Unknown Completed [facility] Influenza Virus Vaccine Nasal Unknown Completed [facility] IPV Unknown Completed [facility] IPV Unknown Completed [facility] IPV Unknown Completed [facility] Influenza Virus Vaccine Unknown Completed [facility] TDAP Unknown Completed [facility] Meningococcal Polysaccharide (groups A, C, Y and W-135) conjugate vaccine (MCV4P) Unknown Completed [facility] Rho (d) Immune Globulin Unknown Completed [facility] Influenza Virus Vaccine Quad .5 mL IM 6+ MO (FLUZONE/FLULAVAL/FL UARIX) Unknown Completed [facility] TDAP (ADACEL) VACCINE Unknown Completed [facility] MMR Unknown Completed [facility] Rho (d) Immune Globulin Unknown Completed [facility] DTAP Unknown Completed [facility] DTAP Unknown Completed [facility] DTAP Unknown Completed [facility] DTAP Unknown Completed [facility] HIB 4 Dose Schedule Unknown Completed [facility] HIB 4 Dose Schedule Unknown Completed [facility] HIB 4 Dose Schedule Unknown Completed [facility] HIB 4 Dose Schedule Unknown Completed [facility] HEPATITIS A Unknown Completed [facility] HEPATITIS A Unknown Completed [facility] Hep B, Adol or Pedi Dosage Unknown Completed [facility] Hep B, Adol or Pedi Dosage Unknown Completed [facility] Hep B, Adol or Pedi Dosage Unknown Completed [facility] HPV Unknown Completed [facility] HPV Unknown Completed [facility] Influenza Virus Vaccine Unknown Completed [facility] Meningococcal Vaccine Unknown Completed [facility] Varicella (varivax)(chicken pox) Unknown Completed [facility] MMR Unknown Completed [facility] Varicella (varivax)(chicken pox) Unknown Completed [facility] Rho (d) Immune Globulin Unknown Completed [facility] TDAP Unknown Completed [facility] Influenza Virus Vaccine Quad IM, Preserv and ABX Free 6 MO-64 YRS (FLUCELVAX) Unknown Completed [facility] Influenza Virus Vaccine Unknown Completed [facility] Influenza Virus Vaccine Unknown Completed [facility] Influenza Virus Vaccine Unknown Completed [facility] Influenza Virus Vaccine Unknown Completed [facility] TDAP Unknown Completed [facility] TDAP Unknown Completed [facility] TDAP Unknown Completed [facility] TDAP Unknown Completed [facility] Heamophilus Influenza B Unknown Completed [facility] Heamophilus Influenza B Unknown Completed [facility] Heamophilus Influenza B Unknown Completed [facility] Heamophilus Influenza B Unknown Completed [facility] Influenza Virus Vaccine Quad IM 3+ YRS Unknown Completed [facility] Influenza Virus Vaccine Quad IM 3+ YRS Unknown Completed [facility] Influenza Virus Vaccine Nasal Unknown Completed [facility] Influenza Virus Vaccine Nasal Unknown Completed [facility] IPV Unknown Completed [facility] IPV Unknown Completed [facility] IPV Unknown Completed [facility] Influenza Virus Vaccine Unknown Completed [facility] TDAP Unknown Completed [facility] Meningococcal Polysaccharide (groups A, C, Y and W-135) conjugate vaccine (MCV4P) Unknown Completed [facility] Rho (d) Immune Globulin Unknown Completed [facility] Influenza Virus Vaccine Quad .5 mL IM 6+ MO (FLUZONE/FLULAVAL/FL UARIX) Unknown Completed [facility] TDAP (ADACEL) VACCINE Unknown Completed [facility] MMR Unknown Completed [facility] Rho (d) Immune Globulin Unknown Completed [facility] DTAP Unknown Completed [facility] DTAP Unknown Completed [facility] DTAP Unknown Completed [facility] DTAP Unknown Completed [facility] HIB 4 Dose Schedule Unknown Completed [facility] HIB 4 Dose Schedule Unknown Completed [facility] HIB 4 Dose Schedule Unknown Completed [facility] HIB 4 Dose Schedule Unknown Completed [facility] HEPATITIS A Unknown Completed [facility] HEPATITIS A Unknown Completed [facility] Hep B, Adol or Pedi Dosage Unknown Completed [facility] Hep B, Adol or Pedi Dosage Unknown Completed [facility] Hep B, Adol or Pedi Dosage Unknown Completed [facility] HPV Unknown Completed [facility] HPV Unknown Completed [facility] Influenza Virus Vaccine Unknown Completed [facility] Meningococcal Vaccine Unknown Completed [facility] Varicella (varivax)(chicken pox) Unknown Completed [facility] MMR Unknown Completed [facility] Varicella (varivax)(chicken pox) Unknown Completed [facility] Rho (d) Immune Globulin Unknown Completed [facility] TDAP Unknown Completed [facility] Influenza Virus Vaccine Quad IM, Preserv and ABX Free 6 MO-64 YRS (FLUCELVAX) Unknown Completed [facility] Influenza Virus Vaccine Unknown Completed [facility] Influenza Virus Vaccine Unknown Completed [facility] Influenza Virus Vaccine Unknown Completed [facility] Influenza Virus Vaccine Unknown Completed [facility] TDAP Unknown Completed [facility] TDAP Unknown Completed [facility] TDAP Unknown Completed [facility] TDAP Unknown Completed [facility] Heamophilus Influenza B Unknown Completed [facility] Heamophilus Influenza B Unknown Completed [facility] Heamophilus Influenza B Unknown Completed [facility] Heamophilus Influenza B Unknown Completed [facility] Influenza Virus Vaccine Quad IM 3+ YRS Unknown Completed [facility] Influenza Virus Vaccine Quad IM 3+ YRS Unknown Completed [facility] Influenza Virus Vaccine Nasal Unknown Completed [facility] Influenza Virus Vaccine Nasal Unknown Completed [facility] IPV Unknown Completed [facility] IPV Unknown Completed [facility] IPV Unknown Completed [facility] Influenza Virus Vaccine Unknown Completed [facility] TDAP Unknown Completed [facility] Meningococcal Polysaccharide (groups A, C, Y and W-135) conjugate vaccine (MCV4P) Unknown Completed [facility] Rho (d) Immune Globulin Unknown Completed [facility] Influenza Virus Vaccine Quad .5 mL IM 6+ MO (FLUZONE/FLULAVAL/FL UARIX) Unknown Completed [facility] TDAP (ADACEL) VACCINE Unknown Completed [facility] MMR Unknown Completed [facility] Rho (d) Immune Globulin Unknown Completed [facility] DTAP Unknown Completed [facility] DTAP Unknown Completed [facility] DTAP Unknown Completed [facility] DTAP Unknown Completed [facility] HIB 4 Dose Schedule Unknown Completed [facility] HIB 4 Dose Schedule Unknown Completed [facility] HIB 4 Dose Schedule Unknown Completed [facility] HIB 4 Dose Schedule Unknown Completed [facility] HEPATITIS A Unknown Completed [facility] HEPATITIS A Unknown Completed [facility] Hep B, Adol or Pedi Dosage Unknown Completed [facility] Hep B, Adol or Pedi Dosage Unknown Completed [facility] Hep B, Adol or Pedi Dosage Unknown Completed [facility] HPV Unknown Completed [facility] HPV Unknown Completed [facility] Influenza Virus Vaccine Unknown Completed [facility] Meningococcal Vaccine Unknown Completed [facility] Varicella (varivax)(chicken pox) Unknown Completed [facility] MMR Unknown Completed [facility] Varicella (varivax)(chicken pox) Unknown Completed [facility] Rho (d) Immune Globulin Unknown Completed [facility] TDAP Unknown Completed [facility] Influenza Virus Vaccine Quad IM, Preserv and ABX Free 6 MO-64 YRS (FLUCELVAX) Unknown Completed [facility] Influenza Virus Vaccine Unknown Completed [facility] Influenza Virus Vaccine Unknown Completed [facility] Influenza Virus Vaccine Unknown Completed [facility] Influenza Virus Vaccine Unknown Completed [facility] TDAP Unknown Completed [facility] TDAP Unknown Completed [facility] TDAP Unknown Completed [facility] TDAP Unknown Completed [facility] Heamophilus Influenza B Unknown Completed [facility] Heamophilus Influenza B Unknown Completed [facility] Heamophilus Influenza B Unknown Completed [facility] Heamophilus Influenza B Unknown Completed [facility] Influenza Virus Vaccine Quad IM 3+ YRS Unknown Completed [facility] Influenza Virus Vaccine Quad IM 3+ YRS Unknown Completed [facility] Influenza Virus Vaccine Nasal Unknown Completed [facility] Influenza Virus Vaccine Nasal Unknown Completed [facility] IPV Unknown Completed [facility] IPV Unknown Completed [facility] IPV Unknown Completed [facility] Influenza Virus Vaccine Unknown Completed [facility] TDAP Unknown Completed [facility] Meningococcal Polysaccharide (groups A, C, Y and W-135) conjugate vaccine (MCV4P) Unknown Completed [facility] Rho (d) Immune Globulin Unknown Completed [facility] Influenza Virus Vaccine Quad .5 mL IM 6+ MO (FLUZONE/FLULAVAL/FL UARIX) Unknown Completed [facility] TDAP (ADACEL) VACCINE Unknown Completed [facility] MMR Unknown Completed [facility] Rho (d) Immune Globulin Unknown Completed [facility] DTAP Unknown Completed [facility] DTAP Unknown Completed [facility] DTAP Unknown Completed [facility] DTAP Unknown Completed [facility] HIB 4 Dose Schedule Unknown Completed [facility] HIB 4 Dose Schedule Unknown Completed [facility] HIB 4 Dose Schedule Unknown Completed [facility] HIB 4 Dose Schedule Unknown Completed [facility] HEPATITIS A Unknown Completed [facility] HEPATITIS A Unknown Completed [facility] Hep B, Adol or Pedi Dosage Unknown Completed [facility] Hep B, Adol or Pedi Dosage Unknown Completed [facility] Hep B, Adol or Pedi Dosage Unknown Completed [facility] HPV Unknown Completed [facility] HPV Unknown Completed [facility] Influenza Virus Vaccine Unknown Completed [facility] Meningococcal Vaccine Unknown Completed [facility] Varicella (varivax)(chicken pox) Unknown Completed [facility] MMR Unknown Completed [facility] Varicella (varivax)(chicken pox) Unknown Completed [facility] Rho (d) Immune Globulin Unknown Completed [facility] TDAP Unknown Completed [facility] Influenza Virus Vaccine Quad IM, Preserv and ABX Free 6 MO-64 YRS (FLUCELVAX) Unknown Completed [facility] Influenza Virus Vaccine Unknown Completed [facility] Influenza Virus Vaccine Unknown Completed [facility] Influenza Virus Vaccine Unknown Completed [facility] Influenza Virus Vaccine Unknown Completed [facility] TDAP Unknown Completed [facility] TDAP Unknown Completed [facility] TDAP Unknown Completed [facility] TDAP Unknown Completed [facility] Heamophilus Influenza B Unknown Completed [facility] Heamophilus Influenza B Unknown Completed [facility] Heamophilus Influenza B Unknown Completed [facility] Heamophilus Influenza B Unknown Completed [facility] Influenza Virus Vaccine Quad IM 3+ YRS Unknown Completed [facility] Influenza Virus Vaccine Quad IM 3+ YRS Unknown Completed [facility] Influenza Virus Vaccine Nasal Unknown Completed [facility] Influenza Virus Vaccine Nasal Unknown Completed [facility] IPV Unknown Completed [facility] IPV Unknown Completed [facility] IPV Unknown Completed [facility] Influenza Virus Vaccine Unknown Completed [facility] TDAP Unknown Completed [facility] Meningococcal Polysaccharide (groups A, C, Y and W-135) conjugate vaccine (MCV4P) Unknown Completed [facility] Rho (d) Immune Globulin Unknown Completed [facility] Influenza Virus Vaccine Quad .5 mL IM 6+ MO (FLUZONE/FLULAVAL/FL UARIX) Unknown Completed [facility] TDAP (ADACEL) VACCINE Unknown Completed [facility] MMR Unknown Completed [facility] Rho (d) Immune Globulin Unknown Completed [facility] DTAP Unknown Completed [facility] DTAP Unknown Completed [facility] DTAP Unknown Completed [facility] DTAP Unknown Completed [facility] HIB 4 Dose Schedule Unknown Completed [facility] HIB 4 Dose Schedule Unknown Completed [facility] HIB 4 Dose Schedule Unknown Completed [facility] HIB 4 Dose Schedule Unknown Completed [facility] HEPATITIS A Unknown Completed [facility] HEPATITIS A Unknown Completed [facility] Hep B, Adol or Pedi Dosage Unknown Completed [facility] Hep B, Adol or Pedi Dosage Unknown Completed [facility] Hep B, Adol or Pedi Dosage Unknown Completed [facility] HPV Unknown Completed [facility] HPV Unknown Completed [facility] Influenza Virus Vaccine Unknown Completed [facility] Meningococcal Vaccine Unknown Completed [facility] Varicella (varivax)(chicken pox) Unknown Completed [facility] MMR Unknown Completed [facility] Varicella (varivax)(chicken pox) Unknown Completed [facility] Rho (d) Immune Globulin Unknown Completed [facility] TDAP Unknown Completed [facility] Influenza Virus Vaccine Quad IM, Preserv and ABX Free 6 MO-64 YRS (FLUCELVAX) Unknown Completed [facility] Influenza Virus Vaccine Unknown Completed [facility] Influenza Virus Vaccine Unknown Completed [facility] Influenza Virus Vaccine Unknown Completed [facility] Influenza Virus Vaccine Unknown Completed [facility] TDAP Unknown Completed [facility] TDAP Unknown Completed [facility] TDAP Unknown Completed [facility] TDAP Unknown Completed [facility] Heamophilus Influenza B Unknown Completed [facility] Heamophilus Influenza B Unknown Completed [facility] Heamophilus Influenza B Unknown Completed [facility] Heamophilus Influenza B Unknown Completed [facility] Influenza Virus Vaccine Quad IM 3+ YRS Unknown Completed [facility] Influenza Virus Vaccine Quad IM 3+ YRS Unknown Completed [facility] Influenza Virus Vaccine Nasal Unknown Completed [facility] Influenza Virus Vaccine Nasal Unknown Completed [facility] IPV Unknown Completed [facility] IPV Unknown Completed [facility] IPV Unknown Completed [facility] Influenza Virus Vaccine Unknown Completed [facility] TDAP Unknown Completed [facility] Meningococcal Polysaccharide (groups A, C, Y and W-135) conjugate vaccine (MCV4P) Unknown Completed [facility] Influenza Virus Vaccine Quad .5 mL IM 6+ MO (FLUZONE/FLULAVAL/FL UARIX) Unknown Completed [facility] Influenza Virus Vaccine Quad .5 mL IM 6+ MO (FLUZONE/FLULAVAL/FL UARIX) Unknown Completed [facility] Influenza, Trivalent, Adjuvanted Unknown Completed [facility] Influenza, Trivalent, Adjuvanted Unknown Completed [facility] DTaP, Unspecified Formulation Unknown Completed [facility] DTaP, Unspecified Formulation Unknown Completed [facility] DTaP, Unspecified Formulation Unknown Completed [facility] DTaP, Unspecified Formulation Unknown Completed [facility] Influenza Virus Vaccine Quad Nasal (Flumist) Unknown Completed [facility] Flu Trivalent Unknown Completed [facility] Flu Trivalent Unknown Completed [facility] Flu Whole Virus Unknown Completed [facility] Influenza Virus Vaccine Quad IM, Preserv and ABX Free 6 MO-64 YRS (FLUCELVAX) Unknown Completed [facility] Rho (d) Immune Globulin Unknown Completed [facility] Influenza Virus Vaccine Quad .5 mL IM 6+ MO (FLUZONE/FLULAVAL/FL UARIX) Unknown Completed [facility] TDAP (ADACEL) VACCINE Unknown Completed [facility] MMR Unknown Completed [facility] Rho (d) Immune Globulin Unknown Completed [facility] DTAP Unknown Completed [facility] DTAP Unknown Completed [facility] DTAP Unknown Completed [facility] DTAP Unknown Completed [facility] HIB 4 Dose Schedule Unknown Completed [facility] HIB 4 Dose Schedule Unknown Completed [facility] HIB 4 Dose Schedule Unknown Completed [facility] HIB 4 Dose Schedule Unknown Completed [facility] HEPATITIS A Unknown Completed [facility] HEPATITIS A Unknown Completed [facility] Hep B, Adol or Pedi Dosage Unknown Completed [facility] Hep B, Adol or Pedi Dosage Unknown Completed [facility] Hep B, Adol or Pedi Dosage Unknown Completed [facility] HPV Unknown Completed [facility] HPV Unknown Completed [facility] Influenza Virus Vaccine Unknown Completed [facility] Meningococcal Vaccine Unknown Completed [facility] Varicella (varivax)(chicken pox) Unknown Completed [facility] MMR Unknown Completed [facility] Varicella (varivax)(chicken pox) Unknown Completed [facility] Rho (d) Immune Globulin Unknown Completed [facility] TDAP Unknown Completed [facility] Influenza Virus Vaccine Quad IM, Preserv and ABX Free 6 MO-64 YRS (FLUCELVAX) Unknown Completed [facility] Influenza Virus Vaccine Unknown Completed [facility] Influenza Virus Vaccine Unknown Completed [facility] Influenza Virus Vaccine Unknown Completed [facility] Influenza Virus Vaccine Unknown Completed [facility] TDAP Unknown Completed [facility] TDAP Unknown Completed [facility] TDAP Unknown Completed [facility] TDAP Unknown Completed [facility] Heamophilus Influenza B Unknown Completed [facility] Heamophilus Influenza B Unknown Completed [facility] Heamophilus Influenza B Unknown Completed [facility] Heamophilus Influenza B Unknown Completed [facility] Influenza Virus Vaccine Quad IM 3+ YRS Unknown Completed [facility] Influenza Virus Vaccine Quad IM 3+ YRS Unknown Completed [facility] Influenza Virus Vaccine Nasal Unknown Completed [facility] Influenza Virus Vaccine Nasal Unknown Completed [facility] IPV Unknown Completed [facility] IPV Unknown Completed [facility] IPV Unknown Completed [facility] Influenza Virus Vaccine Unknown Completed [facility] TDAP Unknown Completed [facility] Meningococcal Polysaccharide (groups A, C, Y and W-135) conjugate vaccine (MCV4P) Unknown Completed [facility] Influenza Virus Vaccine Quad .5 mL IM 6+ MO (FLUZONE/FLULAVAL/FL UARIX) Unknown Completed [facility] Influenza Virus Vaccine Quad .5 mL IM 6+ MO (FLUZONE/FLULAVAL/FL UARIX) Unknown Completed [facility] Influenza, Trivalent, Adjuvanted Unknown Completed [facility] Influenza, Trivalent, Adjuvanted Unknown Completed [facility] DTaP, Unspecified Formulation Unknown Completed [facility] DTaP, Unspecified Formulation Unknown Completed [facility] DTaP, Unspecified Formulation Unknown Completed [facility] DTaP, Unspecified Formulation Unknown Completed [facility] Influenza Virus Vaccine Quad Nasal (Flumist) Unknown Completed [facility] Flu Trivalent Unknown Completed [facility] Flu Trivalent Unknown Completed [facility] Flu Whole Virus Unknown Completed [facility] Influenza Virus Vaccine Quad IM, Preserv and ABX Free 6 MO-64 YRS (FLUCELVAX) Unknown Completed [facility] Rho (d) Immune Globulin Unknown Completed [facility] Influenza Virus Vaccine Quad .5 mL IM 6+ MO (FLUZONE/FLULAVAL/FL UARIX) Unknown Completed [facility] TDAP (ADACEL) VACCINE Unknown Completed [facility] MMR Unknown Completed [facility] Rho (d) Immune Globulin Unknown Completed [facility] DTAP Unknown Completed [facility] DTAP Unknown Completed [facility] DTAP Unknown Completed [facility] DTAP Unknown Completed [facility] HIB 4 Dose Schedule Unknown Completed [facility] HIB 4 Dose Schedule Unknown Completed [facility] HIB 4 Dose Schedule Unknown Completed [facility] HIB 4 Dose Schedule Unknown Completed [facility] HEPATITIS A Unknown Completed [facility] HEPATITIS A Unknown Completed [facility] Hep B, Adol or Pedi Dosage Unknown Completed [facility] Hep B, Adol or Pedi Dosage Unknown Completed [facility] Hep B, Adol or Pedi Dosage Unknown Completed [facility] HPV Unknown Completed [facility] HPV Unknown Completed [facility] Influenza Virus Vaccine Unknown Completed [facility] Meningococcal Vaccine Unknown Completed [facility] Varicella (varivax)(chicken pox) Unknown Completed [facility] MMR Unknown Completed [facility] Varicella (varivax)(chicken pox) Unknown Completed [facility] Rho (d) Immune Globulin Unknown Completed [facility] TDAP Unknown Completed [facility] Influenza Virus Vaccine Quad IM, Preserv and ABX Free 6 MO-64 YRS (FLUCELVAX) Unknown Completed [facility] Influenza Virus Vaccine Unknown Completed [facility] Influenza Virus Vaccine Unknown Completed [facility] Influenza Virus Vaccine Unknown Completed [facility] Influenza Virus Vaccine Unknown Completed [facility] TDAP Unknown Completed [facility] TDAP Unknown Completed [facility] TDAP Unknown Completed [facility] TDAP Unknown Completed [facility] Heamophilus Influenza B Unknown Completed [facility] Heamophilus Influenza B Unknown Completed [facility] Heamophilus Influenza B Unknown Completed [facility] Heamophilus Influenza B Unknown Completed [facility] Influenza Virus Vaccine Quad IM 3+ YRS Unknown Completed [facility] Influenza Virus Vaccine Quad IM 3+ YRS Unknown Completed [facility] Influenza Virus Vaccine Nasal Unknown Completed [facility] Influenza Virus Vaccine Nasal Unknown Completed [facility] IPV Unknown Completed [facility] IPV Unknown Completed [facility] IPV Unknown Completed [facility] Influenza Virus Vaccine Unknown Completed [facility] TDAP Unknown Completed [facility] Meningococcal Polysaccharide (groups A, C, Y and W-135) conjugate vaccine (MCV4P) Unknown Completed [facility] Influenza Virus Vaccine Quad .5 mL IM 6+ MO (FLUZONE/FLULAVAL/FL UARIX) Unknown Completed [facility] Influenza Virus Vaccine Quad .5 mL IM 6+ MO (FLUZONE/FLULAVAL/FL UARIX) Unknown Completed [facility] Influenza, Trivalent, Adjuvanted Unknown Completed [facility] Influenza, Trivalent, Adjuvanted Unknown Completed [facility] DTaP, Unspecified Formulation Unknown Completed [facility] DTaP, Unspecified Formulation Unknown Completed [facility] DTaP, Unspecified Formulation Unknown Completed [facility] DTaP, Unspecified Formulation Unknown Completed [facility] Influenza Virus Vaccine Quad Nasal (Flumist) Unknown Completed [facility] Flu Trivalent Unknown Completed [facility] Flu Trivalent Unknown Completed [facility] Flu Whole Virus Unknown Completed [facility] Influenza Virus Vaccine Quad IM, Preserv and ABX Free 6 MO-64 YRS (FLUCELVAX) Unknown Completed [facility] Rho (d) Immune Globulin Unknown Completed [facility] Influenza Virus Vaccine Quad .5 mL IM 6+ MO (FLUZONE/FLULAVAL/FL UARIX) Unknown Completed [facility] TDAP (ADACEL) VACCINE Unknown Completed [facility] MMR Unknown Completed [facility] Rho (d) Immune Globulin Unknown Completed [facility] DTAP Unknown Completed [facility] DTAP Unknown Completed [facility] DTAP Unknown Completed [facility] DTAP Unknown Completed [facility] HIB 4 Dose Schedule Unknown Completed [facility] HIB 4 Dose Schedule Unknown Completed [facility] HIB 4 Dose Schedule Unknown Completed [facility] HIB 4 Dose Schedule Unknown Completed [facility] HEPATITIS A Unknown Completed [facility] HEPATITIS A Unknown Completed [facility] Hep B, Adol or Pedi Dosage Unknown Completed [facility] Hep B, Adol or Pedi Dosage Unknown Completed [facility] Hep B, Adol or Pedi Dosage Unknown Completed [facility] HPV Unknown Completed [facility] HPV Unknown Completed [facility] Influenza Virus Vaccine Unknown Completed [facility] Meningococcal Vaccine Unknown Completed [facility] Varicella (varivax)(chicken pox) Unknown Completed [facility] MMR Unknown Completed [facility] Varicella (varivax)(chicken pox) Unknown Completed [facility] Rho (d) Immune Globulin Unknown Completed [facility] TDAP Unknown Completed [facility] Influenza Virus Vaccine Quad IM, Preserv and ABX Free 6 MO-64 YRS (FLUCELVAX) Unknown Completed [facility] Influenza Virus Vaccine Unknown Completed [facility] Influenza Virus Vaccine Unknown Completed [facility] Influenza Virus Vaccine Unknown Completed [facility] Influenza Virus Vaccine Unknown Completed [facility] TDAP Unknown Completed [facility] TDAP Unknown Completed [facility] TDAP Unknown Completed [facility] TDAP Unknown Completed [facility] Heamophilus Influenza B Unknown Completed [facility] Heamophilus Influenza B Unknown Completed [facility] Heamophilus Influenza B Unknown Completed [facility] Heamophilus Influenza B Unknown Completed [facility] Influenza Virus Vaccine Quad IM 3+ YRS Unknown Completed [facility] Influenza Virus Vaccine Quad IM 3+ YRS Unknown Completed [facility] Influenza Virus Vaccine Nasal Unknown Completed [facility] Influenza Virus Vaccine Nasal Unknown Completed [facility] IPV Unknown Completed [facility] IPV Unknown Completed [facility] IPV Unknown Completed [facility] Influenza Virus Vaccine Unknown Completed [facility] TDAP Unknown Completed [facility] Meningococcal Polysaccharide (groups A, C, Y and W-135) conjugate vaccine (MCV4P) Unknown Completed [facility] Influenza Virus Vaccine Quad .5 mL IM 6+ MO (FLUZONE/FLULAVAL/FL UARIX) Unknown Completed [facility] Influenza Virus Vaccine Quad .5 mL IM 6+ MO (FLUZONE/FLULAVAL/FL UARIX) Unknown Completed [facility] Influenza, Trivalent, Adjuvanted Unknown Completed [facility] Influenza, Trivalent, Adjuvanted Unknown Completed [facility] DTaP, Unspecified Formulation Unknown Completed [facility] DTaP, Unspecified Formulation Unknown Completed [facility] DTaP, Unspecified Formulation Unknown Completed [facility] DTaP, Unspecified Formulation Unknown Completed [facility] Influenza Virus Vaccine Quad Nasal (Flumist) Unknown Completed [facility] Flu Trivalent Unknown [facility] Completed [facility] Flu Whole Virus Unknown Completed [facility] Influenza Virus Vaccine Quad IM, Preserv and ABX Free 6 MO-64 YRS (FLUCELVAX) Unknown Completed [facility] Rho (d) Immune Globulin Unknown Completed [facility] Influenza Virus Vaccine Quad .5 mL IM 6+ MO (FLUZONE/FLULAVAL/FL UARIX) Unknown Completed [facility] TDAP (ADACEL) VACCINE Unknown Completed [facility] MMR Unknown Completed [facility] Rho (d) Immune Globulin Unknown Completed [facility] DTAP Unknown Completed [facility] DTAP Unknown Completed [facility] DTAP Unknown Completed [facility] DTAP Unknown Completed [facility] HIB 4 Dose Schedule Unknown Completed [facility] HIB 4 Dose Schedule Unknown Completed [facility] HIB 4 Dose Schedule Unknown Completed [facility] HIB 4 Dose Schedule Unknown Completed [facility] HEPATITIS A Unknown Completed [facility] HEPATITIS A Unknown Completed [facility] Hep B, Adol or Pedi Dosage Unknown Completed [facility] Hep B, Adol or Pedi Dosage Unknown Completed [facility] Hep B, Adol or Pedi Dosage Unknown Completed [facility] HPV Unknown Completed [facility] HPV Unknown Completed [facility] Influenza Virus Vaccine Unknown Completed [facility] Meningococcal Vaccine Unknown Completed [facility] Varicella (varivax)(chicken pox) Unknown Completed [facility] MMR Unknown Completed [facility] Varicella (varivax)(chicken pox) Unknown Completed [facility] Rho (d) Immune Globulin Unknown Completed [facility] TDAP Unknown Completed [facility] Influenza Virus Vaccine Quad IM, Preserv and ABX Free 6 MO-64 YRS (FLUCELVAX) Unknown Completed [facility] Influenza Virus Vaccine Unknown Completed [facility] Influenza Virus Vaccine Unknown Completed [facility] Influenza Virus Vaccine Unknown Completed [facility] Influenza Virus Vaccine Unknown Completed [facility] TDAP Unknown Completed [facility] TDAP Unknown Completed [facility] TDAP Unknown Completed [facility] TDAP Unknown Completed [facility] Heamophilus Influenza B Unknown Completed [facility] Heamophilus Influenza B Unknown Completed [facility] Heamophilus Influenza B Unknown Completed [facility] Heamophilus Influenza B Unknown Completed [facility] Influenza Virus Vaccine Quad IM 3+ YRS Unknown Completed [facility] Influenza Virus Vaccine Quad IM 3+ YRS Unknown Completed [facility] Influenza Virus Vaccine Nasal Unknown Completed [facility] Influenza Virus Vaccine Nasal Unknown Completed [facility] IPV Unknown Completed [facility] IPV Unknown Completed [facility] IPV Unknown Completed [facility] Influenza Virus Vaccine Unknown Completed [facility] TDAP Unknown Completed [facility] Meningococcal Polysaccharide (groups A, C, Y and W-135) conjugate vaccine (MCV4P) Unknown Completed [facility] Influenza Virus Vaccine Quad .5 mL IM 6+ MO (FLUZONE/FLULAVAL/FL UARIX) Unknown Completed [facility] Influenza Virus Vaccine Quad .5 mL IM 6+ MO (FLUZONE/FLULAVAL/FL UARIX) Unknown Completed [facility] Influenza, Trivalent, Adjuvanted Unknown Completed [facility] Influenza, Trivalent, Adjuvanted Unknown Completed [facility] DTaP, Unspecified Formulation Unknown Completed [facility] DTaP, Unspecified Formulation Unknown Completed [facility] DTaP, Unspecified Formulation Unknown Completed [facility] DTaP, Unspecified Formulation Unknown Completed [facility] Influenza Virus Vaccine Quad Nasal (Flumist) Unknown Completed [facility] Flu Trivalent Unknown Completed [facility] Flu Trivalent Unknown Completed [facility] Flu Whole Virus Unknown Completed [facility] Influenza Virus Vaccine Quad IM, Preserv and ABX Free 6 MO-64 YRS (FLUCELVAX) Unknown Completed [facility] Vital Signs Vital Name Observation Time Observation Value Comments S ource Systolic blood pressure 2023-11-13 19:04:00 124 mm[Hg] [facility] Diastolic blood pressure 2023-11-13 19:04:00 73 mm[Hg] [facility] Heart rate 2023-11-13 19:04:00 94 /min [facility] Body temperature 2023-11-13 19:04:00 36.78 Melania [facility] Respiratory rate 2023-11-13 19:04:00 18 /min [facility] Body height 2023-11-13 19:04:00 154.9 cm [facility] Body weight 2023-11-13 19:04:00 56.79 kg [facility] BMI 2023-11-13 19:04:00 23.66 kg/m2 [facility] Systolic blood pressure 2023-10-14 18:30:00 96 mm[Hg] [facility] Diastolic blood pressure 2023-10-14 18:30:00 66 mm[Hg] [facility] Heart rate 2023-10-14 18:30:00 86 /min [facility] Respiratory rate 2023-10-14 18:30:00 18 /min [facility] Oxygen saturation in Arterial blood by Pulse oximetry 2023-10-14 18:30:00 99 /min [facility] Body temperature 2023-10-14 13:13:00 36.72 Melania [facility] Body height 2023-10-13 23:46:00 154.9 cm [facility] Body weight 2023-10-13 23:46:00 55.792 kg [facility] BMI 2023-10-13 23:46:00 23.24 kg/m2 [facility] Systolic blood pressure 2023-10-11 00:55:00 116 mm[Hg] [facility] Diastolic blood pressure 2023-10-11 00:55:00 79 mm[Hg] [facility] Heart rate 2023-10-11 00:55:00 95 /min [facility] Respiratory rate 2023-10-11 00:55:00 16 /min [facility] Oxygen saturation in Arterial blood by Pulse oximetry 2023-10-11 00:55:00 99 /min [facility] Body temperature 2023-10-11 00:25:00 36.33 Melania [facility] Body height 2023-10-10 19:58:00 154.9 cm [facility] Body weight 2023-10-10 19:58:00 55.792 kg [facility] BMI 2023-10-10 19:58:00 23.24 kg/m2 [facility] Systolic blood pressure 2023-10-10 19:58:00 107 mm[Hg] [facility] Diastolic blood pressure 2023-10-10 19:58:00 68 mm[Hg] [facility] Heart rate 2023-10-10 19:58:00 97 /min [facility] Body temperature 2023-10-10 19:58:00 36.94 Melania [facility] Respiratory rate 2023-10-10 19:58:00 18 /min [facility] Body height 2023-10-10 19:58:00 154.9 cm [facility] Body weight 2023-10-10 19:58:00 55.792 kg [facility] BMI 2023-10-10 19:58:00 23.24 kg/m2 [facility] Oxygen saturation in Arterial blood by Pulse oximetry 2023-10-10 19:58:00 98 /min [facility] Systolic blood pressure 2023-10-08 14:20:00 97 mm[Hg] [facility] Diastolic blood pressure 2023-10-08 14:20:00 61 mm[Hg] [facility] Heart rate 2023-10-08 14:20:00 97 /min [facility] Body temperature 2023-10-08 14:20:00 37 Melania [facility] Respiratory rate 2023-10-08 14:20:00 16 /min [facility] Body height 2023-10-08 14:20:00 154.9 cm [facility] Body weight 2023-10-08 14:20:00 56.427 kg [facility] BMI 2023-10-08 14:20:00 23.51 kg/m2 [facility] Oxygen saturation in Arterial blood by Pulse oximetry 2023-10-08 14:20:00 97 /min [facility] Systolic blood pressure 2023 06:04:00 103 mm[Hg] [facility] Diastolic blood pressure 2023 06:04:00 65 mm[Hg] [facility] Heart rate 2023 06:04:00 95 /min [facility] Respiratory rate 2023 06:04:00 16 /min [facility] Oxygen saturation in Arterial blood by Pulse oximetry 2023 06:04:00 99 /min [facility] Body temperature 2023 03:34:00 36.67 Melania [facility] Body weight 2023 03:34:00 58.968 kg [facility] BMI 2023 03:34:00 23.78 kg/m2 [facility] Systolic blood pressure 2023-08-15 13:02:00 105 mm[Hg] [facility] Diastolic blood pressure 2023-08-15 13:02:00 71 mm[Hg] [facility] Heart rate 2023-08-15 13:02:00 76 /min [facility] Respiratory rate 2023-08-15 13:02:00 18 /min [facility] Body height 2023-08-15 13:02:00 157.5 cm [facility] Body weight 2023-08-15 13:02:00 57.607 kg [facility] BMI 2023-08-15 13:02:00 23.23 kg/m2 [facility] Systolic blood pressure 2023-05-14 20:46:00 108 mm[Hg] [facility] Diastolic blood pressure 2023-05-14 20:46:00 75 mm[Hg] [facility] Heart rate 2023-05-14 20:46:00 102 /min [facility] Body temperature 2023-05-14 20:46:00 36.78 Melania [facility] Respiratory rate 2023-05-14 20:46:00 18 /min [facility] Body height 2023-05-14 20:46:00 157.5 cm [facility] Body weight 2023-05-14 20:46:00 60.328 kg [facility] BMI 2023-05-14 20:46:00 24.33 kg/m2 [facility] Systolic blood pressure 2023-02-18 20:19:00 111 mm[Hg] [facility] Diastolic blood pressure 2023-02-18 20:19:00 76 mm[Hg] [facility] Heart rate 2023-02-18 20:19:00 112 /min [facility] Body temperature 2023-02-18 20:19:00 36.78 Melania [facility] Respiratory rate 2023-02-18 20:19:00 18 /min [facility] Body height 2023-02-18 20:19:00 157.5 cm [facility] Body weight 2023-02-18 20:19:00 60.147 kg [facility] BMI 2023-02-18 20:19:00 24.25 kg/m2 [facility] Systolic blood pressure 2022-11-18 20:53:00 100 mm[Hg] [facility] Diastolic blood pressure 2022-11-18 20:53:00 70 mm[Hg] [facility] Heart rate 2022-11-18 20:53:00 97 /min [facility] Body temperature 2022-11-18 20:53:00 37.06 Melania [facility] Respiratory rate 2022-11-18 20:53:00 18 /min [facility] Body height 2022-11-18 20:53:00 157.5 cm [facility] Body weight 2022-11-18 20:53:00 59.421 kg [facility] BMI 2022-11-18 20:53:00 23.96 kg/m2 [facility] Systolic blood pressure 2022-08-26 20:11:00 113 mm[Hg] [facility] Diastolic blood pressure 2022-08-26 20:11:00 80 mm[Hg] [facility] Heart rate 2022-08-26 20:11:00 91 /min [facility] Body temperature 2022-08-26 20:11:00 36.72 Melania [facility] Respiratory rate 2022-08-26 20:11:00 16 /min [facility] Body height 2022-08-26 20:11:00 157.5 cm [facility] Body weight 2022-08-26 20:11:00 57.879 kg [facility] BMI 2022-08-26 20:11:00 23.34 kg/m2 [facility] Systolic blood pressure 2022-07-03 20:26:00 108 mm[Hg] [facility] Diastolic blood pressure 2022-07-03 20:26:00 76 mm[Hg] [facility] Heart rate 2022-07-03 20:26:00 103 /min [facility] Body temperature 2022-07-03 20:25:00 36.89 Melania [facility] Respiratory rate 2022-07-03 20:25:00 16 /min [facility] Body height 2022-07-03 20:25:00 157.5 cm [facility] Body weight 2022-07-03 20:25:00 58.968 kg [facility] BMI 2022-07-03 20:25:00 23.78 kg/m2 [facility] Oxygen saturation in Arterial blood by Pulse oximetry 2022-07-03 20:25:00 98 /min [facility] Height 2020-12-01 10:53:00 154.94 CM Weight 2020-12-01 10:53:00 50.8 KG Procedures Procedure Date / Time Performed Performing Clinician Source HEPATITIS B SURFACE ANTIGEN 2023-11-13 19:34:00 Zarina Kennedy [facility] HCV ANTIBODY 2023-11-13 19:34:00 Zarina Kennedy [facility] HIV 1/2 AG-AB WITH REFLEX 2023-11-13 19:34:00 Catie Kennedy [facility] FLU VACC ([id number]), 6 MO-64 YRS, .5ML, IM, QUAD (FLUCELVAX) 2023-11-13 19:17:34 Zarina Kennedy [facility] EXTERNAL PROVIDER RECORDS 2023-10-24 06:01:00 Do ctor Unassigned, [place] [facility] BASIC METABOLIC PANEL (NA, K, CL, CO2, GLUCOSE, BUN, CREATININE, CA) 2023-10-14 10:38:00 Justyn [facility] CBC WITH DIFF 2023-10-14 10:38:00 Mallorie Alejandra [facility] TEST, URINE 2023-10-14 01:42:00 Elliott Priest Patrick [facility] URINALYSIS 2023-10-14 01:42:00 Elliott Priest U [facility] BASIC METABOLIC PANEL (NA, K, CL, CO2, GLUCOSE, BUN, CREATININE, CA) 2023-10-14 01:41:00 Elliott Priest [facility] CBC WITH DIFF 2023-10-14 01:41:00 Elliott Priest [facility] FL TIME OR (NON-REPORTABLE) 2023-10-11 00:20:00 Justyn [facility] FL TIME OR (NON-REPORTABLE) 2023-10-11 00:20:00 Justyn [facility] URETEROSCOPIC STONE MANIPULATION 2023-10-10 23:21:00 Justyn [facility] DAY SURGERY - [place] 2023-10-10 06:01:00 Doctor Unassigned, [place] [facility] US RETROPERITONEAL LIMITED 2023 05:54:30 [place] Yosvany Keller [facility] POCT TEST 2023 04:05:00 Job Keyes [facility] COMP. METABOLIC PANEL (08613) 2023 04:02:00 Iris Keyes [facility] CBC WITH DIFF 2023 04:02:00 Iris Keyes [facility] URINALYSIS 2023 04:02:00 Iris Keyes Un [facility] CONSENT/REFUSAL FOR DIAGNOSIS AND TREATMENT 2023 03:26:20 Doctor Unassigned, [place] [facility] REFERRAL- REQUEST/RESPONSE 2023-06-03 05:01:00 Adalid wyatt Unassigned, [place] [facility] PATIENT FINANCIAL POLICY 2023-02-18 19:57:32 Doctor Unassigned, [place] [facility] ASSIGNMENT OF BENEFITS 2022-11-18 20:21:23 Docto r Unassigned, [place] [facility] Encounters Start Date/Time End Date/Time Encounter Type Admission Type Attending [facility] Care Facility Care Department Encounter ID Source 2021-09-11 07:20:36 Emergency [facility] [id number] [facility] ity [facility] 2021-09-11 07:18:00 Emergency [facility] [id number] [facility] ity [facility] 2021-09-11 05:25:53 Emergency [facility] [id number] [facility] 2021-09-10 12:34:55 [facility] [id number] [facility] 2021-09-10 00:32:19 Outpatient [facility] ERT [id number] [facility] ity [facility] 2021-09-10 00:25:14 Emergency [facility] [id number] [facility] 2021-09-09 03:49:13 Emergency [facility] [id number] [facility] 2021-09-07 12:08:59 Emergency [facility] [id number] [facility] 2021-09-06 14:24:34 Outpatient P [facility] JONI [id number] [facility] 2021-09-06 14:21:12 Outpatient P [facility] J[facility]I [id number] [facility] ity [facility] 2021-09-06 13:39:14 Outpatient P [facility] [id number] [facility] 2021-09-06 13:35:43 Outpatient P [facility] [id number] [facility] 2024-01-01 08:17:49 2024-01-01 08:17:49 Outpatient [facility] [id number] Dirk Milan 2023-12-31 16:57:01 2023-12-31 16:57:01 Outpatient [facility] [id number] Dirk Milan 2023-12-25 11:58:12 2023-12-25 11:58:12 Outpatient [facility] [id number] Dirk Milan 2023-11-13 13:45:00 2023-11-13 14:09:01 Inventory Control Planner Visit 2, Adc Lab Zarina Kennedy [facility] PROFESSIO NAL BUILDING 1.2840.114 350.1.13.10 4.2.7.2.686 [id number] [facility] 2023-11-13 13:15:00 2023-11-13 13:26:31 Outpatient R BRNET ZARINA [facility] [id number] [facility] 2023-11-13 13:15:00 2023-11-13 13:26:31 Office Visit Brent [facility] 1.2840.114 350.1.13.10 4.2.7.2.686 [id number] [facility] 2023-10-24 00:00:00 2023-10-24 00:00:00 Orders Only Doctor Unassigned, [place] [facility] 1.2840.114 350.1.13.10 4.2.7.2.686 [id number] [facility] 2023-10-13 17:48:00 2023-10-14 16:08:00 Outpatient X MARCO A LARSON [facility] [id number] [facility] 2023-10-13 17:48:00 2023-10-14 16:08:00 Emergency Mallorie Alejandra Mahmoud Eisenberg, Michael [facility] 1.2840.114 350.1.13.10 4.2.7.2.686 [id number] [facility] 2023-10-13 00:00:00 2023-10-13 00:00:00 Telephone Mallorie Alejandra [facility] OFFICE BUILDING 1.2840.114 350.1.13.10 4.2.7.2.686 [id number] [facility] 2023-10-10 13:39:00 2023-10-10 19:08:00 Outpatient R [facility] [id number] [facility] 2023-10-10 13:39:00 2023-10-10 19:08:00 [facility] 1.2840.114 350.1.13.10 4.2.7.2.686 [id number] [facility] 2023-10-10 15:01:00 2023-10-10 16:22:00 Surgery Justyn [facility] 1.2840.114 350.1.13.10 4.2.7.2.686 [id number] [facility] 2023-10-10 00:00:00 2023-10-10 00:00:00 Orders Only Doctor Unassigned, [place] [facility] 1.2840.114 350.1.13.10 4.2.7.2.686 [id number] [facility] 2023-10-09 09:26:26 2023-10-09 09:26:26 Outpatient [facility] [id number] Dirk Milan 2023-10-08 08:30:00 2023-10-08 15:45:08 Outpatient R AILIN TANG [facility] [id number] [facility] 2023-10-08 08:30:00 2023-10-08 15:45:08 Office Visit Ailin Tang [facility] MEDICAL OFFICE BUILDING 1.840.114 350.1.13.10 4.2.7.2.686 [id number] [facility] 2023-10-05 21:35:00 2023 01:06:00 Emergency X CHANDANA SOTELO [facility] ERT [id number] [facility] 2023-10-05 21:35:00 2023 01:06:00 Emergency Jackie Griffin, Iris Sotelo, [place] [facility] 1.2.840.114 350.1.13.10 4.2.7.2.686 [id number] [facility] 2023-10-04 14:17:02 2023-10-04 14:17:02 Outpatient [facility] [id number] Dirk Nickerson Bjorn 2023-09-17 16:48:16 2023-09-17 16:48:16 Outpatient [facility] [id number] Dirk Nickerson Bjorn 2023-09-11 09:11:57 2023-09-11 09:11:57 Outpatient [facility] [id number] Dirk Nickerson Bjorn 2023-08-26 15:44:47 2023-08-26 15:44:47 Outpatient [facility] [id number] Dirk Nickerson Herndon 2023-08-15 08:00:00 2023-08-15 08:15:00 Nurse Visit Nurse, [facility] Zarina Kennedy [facility] 1.2.840.114 350.1.13.10 4.2.7.2.686 [id number] [facility] 2023-08-15 08:00:00 2023-08-15 08:00:00 Outpatient ZARINA DERAS [facility] [id number] [facility] 2023-08-14 08:15:00 2023-08-14 08:15:00 Outpatient BRIT HOGAN [facility] [id number] [facility] 2023-07-31 09:30:00 2023-07-31 09:30:00 Outpatient IDA ARREOLA [facility] [id number] [facility] 2023-06-26 14:44:34 2023-06-26 14:44:34 Outpatient [facility] [id number] Dirk Nickerson Bjorn 2023-06-11 10:54:47 2023-06-11 10:54:47 Outpatient [facility] [id number] Dirk Milan 2023-06-03 00:00:00 2023-06-03 00:00:00 Orders Only Doctor Unassigned, [place] [facility] 1.2.840.114 350.1.13.10 4.2.7.2.686 [id number] [facility] 2023-05-21 09:11:27 2023-05-21 09:11:27 Outpatient [facility] [id number] Dirk Milan 2023-05-14 15:30:00 2023-05-14 15:45:47 Nurse Visit Nurse, [facility] Norma Partida [facility] 1.2.840.114 350.1.13.10 4.2.7.2.686 [id number] [facility] 2023-05-14 15:30:00 2023-05-14 15:30:00 Outpatient R NORMA PARTIDA [facility] [id number] [facility] 2023-04-30 14:56:01 2023-04-30 14:56:01 Outpatient [facility] [id number] Dirk Milan 2023-04-21 16:15:00 2023-04-21 16:15:00 Outpatient R NASSAR-MARSHAL S, HINA MADAY-MARSHAL S, HINA [facility] [id number] [facility] 2023-03-21 14:00:00 2023-03-21 14:00:00 Outpatient R WENDY RIVERA [facility] [id number] [facility] 2023-03-18 15:33:41 2023-03-18 15:33:41 Outpatient [facility] [id number] Dirk Milan 2023-02-28 00:00:00 2023-02-28 00:00:00 Telephone Zarina Kennedy [facility] 1..840.114 350.1.13.10 4.2.7.2.686 [id number] [facility] 2023-02-18 15:30:00 2023-02-18 15:30:00 Nurse Visit Nurse, [facility] Wendy Rivera [facility] BUILDING 1.2.840.114 350.1.13.10 4.2.7.2.686 [id number] [facility] 2023-02-18 15:30:00 2023-02-18 15:15:55 Outpatient R JEDSARWATWENDY SHETTY [facility] [id number] [facility] 2023-02-18 00:00:00 2023-02-18 00:00:00 Orders Only Doctor Unassigned, [place] [facility] 1..840.114 350.1.13.10 4.2.7.2.686 [id number] [facility] 2023-02-12 15:57:07 2023-02-12 15:57:07 Outpatient [facility] [id number] Dirk F Bjorn 2022-12-31 14:30:00 2022-12-31 14:30:00 Outpatient R ZARINA KENNEDY [facility] [id number] [facility] 2022-12-28 00:00:00 2022-12-28 00:00:00 Telephone Zarina Kennedy [facility] BUILDING 1.2.840.114 350.1.13.10 4.2.7.2.686 [id number] [facility] 2022-12-23 00:00:00 2022-12-23 00:00:00 Telephone Zarina Kennedy [facility] BUILDING 1.2.840.114 350.1.13.10 4.2.7.2.686 [id number] [facility] 2022-12-20 15:45:35 2022-12-20 15:45:35 Outpatient [facility] [id number] Dirk Milan 2022-12-05 08:00:00 2022-12-05 08:00:00 Outpatient R ZARINA KENNEDY [facility] [id number] [facility] 2022-11-28 00:00:00 2022-11-28 00:00:00 [facility] 1.2.840.114 350.1.13.10 4.2.7.2.686 [id number] [facility] 2022-11-21 08:56:00 2022-11-21 08:56:00 Outpatient [facility] [id number] Dirk Milan 2022-11-18 14:30:00 2022-11-18 15:20:30 Outpatient R [facility] [id number] [facility] 2022-11-18 14:30:00 2022-11-18 15:20:30 Office Visit Nicole [facility] 1.284.114 350.1.13.10 4.2.7.2.686 [id number] [facility] 2022-11-18 00:00:00 2022-11-18 00:00:00 Orders Only Doctor Unassigned, [place] [facility] 1.2.114 350.1.13.10 4.2.7.2.686 [id number] [facility] 2022-10-29 09:00:00 2022-10-29 09:00:00 Outpatient R GUTIERREZ BRAVO [facility] [id number] [facility] 2022-10-28 00:00:00 2022-10-28 00:00:00 [facility] 1.84.114 350.1.13.10 4.2.7.2.686 [id number] [facility] [id number] [facility] 2022-10-23 00:00:00 2022-10-23 00:00:00 [facility] 1..840.114 350.1.13.10 4.2.7.2.686 [id number] [facility] 2022-08-26 14:30:00 2022-08-26 15:11:07 [id number] 2022-08-26 14:30:00 2022-08-26 15:11:07 Nurse Visit Nurse, [facility] Nicole [facility] 1.2.840.114 350.1.13.10 4.2.7.2.686 [id number] [facility] 2022-07-03 17:00:00 2022-07-03 17:15:00 Inventory Control Planner Visit [facility] 1..840.114 350.1.13.10 4.2.7.2.686 [id number] [facility] 2022-07-03 16:00:00 2022-07-03 16:06:31 Outpatient Stevo BRAVO [facility] [id number] [facility] 2022-07-03 16:00:00 2022-07-03 16:06:31 Office Visit Isha Marie [facility] 1..840.114 350.1.13.10 4.2.7.2.686 [id number] [facility] 2022-07-03 16:00:00 2022-07-03 16:06:31 Outpatient Stevo BRAVO [facility] [id number] [facility] 2022-07-03 16:00:00 2022-07-03 16:06:31 Outpatient Stevo BRAVO GUTIERREZ [facility] [id number] [facility] 2022-06-19 00:00:00 2022-06-19 00:00:00 Telephone [place], Nephrology [facility] 1.2840.114 350.1.13.10 4.2.7.2.686 [id number] [facility] 2022-06-12 00:00:00 2022-06-12 00:00:00 Telephone [place], Nephrology [facility] 1.2840.114 350.1.13.10 4.2.7.2.686 [id number] [facility] 2022-06-03 14:00:00 2022-06-03 14:15:27 Outpatient Stevo RIVERA WENDY [facility] [id number] [facility] 2022-06-03 14:00:00 2022-06-03 14:15:27 Nurse Visit Nurse, [facility] Nicole [facility] 1..840.114 350.1.13.10 4.2.7.2.686 [id number] [facility] 2022-04-04 15:00:00 2022-04-04 15:00:00 Outpatient Stevo RIVERA [facility] [id number] [facility] 2022-04-03 13:10:05 2022-04-03 23:59:00 Outpatient Stevo RIVERA [facility] [id number] [facility] 2022-04-03 13:00:00 2022-04-03 23:59:00 Hospital Encounter Nicole Wendy [facility] 1..840.114 350.1.13.10 4.2.7.2.686 [id number] [facility] 2022-04-03 00:00:00 2022-04-03 00:00:00 Orders Only Doctor Unassigned, [place] [facility] 1.2.840.114 350.1.13.10 4.2.7.2.686 [id number] [facility] 2022-04-03 00:00:00 2022-04-03 00:00:00 Case Management Wendy Rivera [facility] BUILDING 1..840.114 350.1.13.10 4.2.7.2.686 [id number] [facility] 2022-03-27 09:30:00 2022-03-27 09:30:00 Outpatient R ZARINA KENNEDY [facility] [id number] [facility] 2022-03-27 09:30:00 2022-03-27 09:30:00 Outpatient R BRENT ZARINA [facility] [id number] [facility] 2022-03-27 09:30:00 2022-03-27 09:30:00 Outpatient R ZARINA KENNEDY [facility] [id number] [facility] 2022-03-07 14:00:00 2022-03-07 14:18:10 Outpatient ZARINA DERAS [facility] [id number] [facility] 2022-03-07 14:00:00 2022-03-07 14:18:10 Nurse Visit Nurse, [facility] Zarina Kennedy [facility] 1..840.114 350.1.13.10 4.2.7.2.686 [id number] [facility] 2022-02-28 00:00:00 2022-02-28 00:00:00 Telephone Wendy Rivera [facility] BUILDING 1..840.114 350.1.13.10 4.2.7.2.686 [id number] [facility] 2022-02-26 15:00:00 2022-02-26 16:12:25 Outpatient R NORMA PARTIDA [facility] [id number] [facility] 2022-02-26 15:00:00 2022-02-26 16:12:25 Office Visit Nicole Wendy Norma Partida [facility] BUILDING 1.84.114 350.1.13.10 4.2.7.2.686 [id number] [facility] 2021-12-13 10:30:00 2021-12-13 10:42:25 Outpatient R BRENT ZARINA [facility] [id number] [facility] 2021-12-13 10:30:00 2021-12-13 10:42:25 Nurse Visit Nurse, [facility] KennedyZarina Marcus [facility] 1.840.114 350.1.13.10 4.2.7.2.686 [id number] [facility] 2021-12-13 10:30:00 2021-12-13 10:30:00 Outpatient R [facility] [id number] [facility] 2021-12-13 00:00:00 2021-12-13 00:00:00 Orders Only Doctor Unassigned, [place] [facility] 1.84.114 350.1.13.10 4.2.7.2.686 [id number] [facility] 2021-12-07 13:00:00 2021-12-07 13:00:00 Outpatient STAN SPEARS HOWARD [facility] [id number] [facility] 2021-11-28 12:55:00 2021-11-28 16:24:00 Emergency X Pedro [facility] ERT [id number] [facility] 2021-11-28 12:55:00 2021-11-28 16:24:00 Emergency Pedro Miller [facility] 1.84.114 350.1.13.10 4.2.7.2.686 [id number] [facility] 2021-11-28 00:00:00 2021-11-28 00:00:00 Orders Only Doctor Unassigned, [place] [facility] 1.2840.114 350.1.13.10 4.2.7.2.686 [id number] [facility] 2021-10-22 09:00:00 2021-10-22 09:29:56 Outpatient R WENDY RIVERA [facility] [id number] [facility] 2021-10-22 08:40:07 2021-10-22 09:29:56 Office Visit Wendy Rivera [facility] 1.2.840.114 350.1.13.10 4.2.7.2.686 [id number] [facility] 2021-09-27 10:30:00 2021-09-27 10:53:39 Outpatient R WENDY RIVERA [facility] [id number] [facility] 2021-09-27 10:24:13 2021-09-27 10:53:39 [facility]ine [facility] 1.2.840.114 350.1.13.10 4.2.7.2.686 [id number] [facility] 2021-09-12 00:00:00 2021-09-12 00:00:00 Telephone Wendy Rivera [facility] BUILDING 1.2.840.114 350.1.13.10 4.2.7.2.686 [id number] [facility] 2021-09-10 04:05:00 2021-09-11 16:00:00 Inpatient P ZARINA KENNEDY [facility] [id number] [facility] 2021-09-10 04:05:00 2021-09-11 16:00:00 Hospital Encounter Zarina Kennedy [facility] 1.2.840.114 350.1.13.10 4.2.7.2.686 [id number] [facility] 2021-09-10 08:35:00 2021-09-10 16:19:00 Anesthesia Event BoynusratJordan Leonard [facility] 1.2.840.114 350.1.13.10 4.2.7.2.686 [id number] [facility] 2021-09-07 10:06:22 2021-09-07 10:21:22 Laboratory Only Only, Adc Test Zarina Kennedy [facility] 1.2.840.114 350.1.13.10 4.2.7.2.686 [id number] [facility] 2021-09-07 10:15:00 2021-09-07 10:15:00 Outpatient R ZARINA KENNEDY [facility] [id number] [facility] 2021-09-06 11:00:13 2021-09-06 11:58:29 Routine Visit Zarina Kennedy [facility] PROFESSIO [facility] BUILDING 1.2840.114 350.1.13.10 4.2.7.2.686 [id number] [facility] 2021-09-06 11:00:00 2021-09-06 11:58:29 Outpatient R ZARINA KENNEDY [facility] [id number] [facility] 2021-09-04 13:23:00 2021-09-04 15:35:00 Hospital Encounter Zarina Kennedy Norma Partida [facility] 1.2.840.114 350.1.13.10 4.2.7.2.686 [id number] [facility] 2021-09-04 13:23:00 2021-09-04 15:35:00 Outpatient P ZARINA KENNEDY [facility] ERT [id number] [facility] 2021-09-04 11:00:00 2021-09-04 12:14:54 [facility] [id number] [facility] 2021-09-04 10:42:04 2021-09-04 12:14:54 Routine Visit Wendy Rivera [facility] 1.2.840.114 350.1.13.10 4.2.7.2.686 [id number] [facility] 2021-09-04 00:00:00 2021-09-04 00:00:00 Telephone Kennedy Zarina Velazquez [facility] Professio nal Building 1.2.840.114 350.1.13.10 4.2.7.2.686 [id number] [facility] 2021-09-03 16:15:00 2021-09-03 16:15:00 Outpatient R [facility]EDEMORY [facility] [id number] [facility] 2021-08-27 16:30:00 2021-08-27 16:30:00 [facility] [id number] [facility] 2021-08-27 15:51:06 2021-08-27 16:29:15 Routine Visit Brent Zarina Marcus Rivera [facility] Professio nal Building 1.2.840.114 350.1.13.10 4.2.7.2.686 [id number] [facility] 2021-08-25 22:15:00 2021-08-25 23:30:00 Hospital Encounter Kary Oseguera [facility] 1.2.840.114 350.1.13.10 4.2.7.2.686 [id number] [facility] 2021-08-25 09:36:00 2021-08-25 18:31:00 Emergency FishKary [facility] 1.2.840.114 350.1.13.10 4.2.7.2.686 [id number] [facility] 2021-08-24 00:00:00 2021-08-24 00:00:00 Telephone Zarina Kennedy [facility] Professio nal Building 1.2840.114 350.1.13.10 4.2.7.2.686 [id number] 134 [id number] [facility] 2021-08-24 00:00:00 2021-08-24 00:00:00 [facility] 1.2840.114 350.1.13.10 4.2.7.2.686 [id number] 134 [id number] [facility] 2021-08-20 08:20:54 2021-08-20 09:06:30 Routine Visit Zarina Kennedy [facility] Building 1.20.114 350.1.13.10 4.2.7.2.686 [id number] [facility] 2021-08-20 08:00:00 2021-08-20 08:00:00 Outpatient R ZARINA KENNEDY [facility] [id number] [facility] 2021-08-20 00:00:00 2021-08-20 00:00:00 Telephone KennedyZarina [facility] Building 1.2840.114 350.1.13.10 4.2.7.2.686 [id number] 134 [id number] [facility] 2021-08-20 00:00:00 2021-08-20 00:00:00 Orders Only Doctor Unassigned, [place] [facility] 1.20.114 350.1.13.10 4.2.7.2.686 [id number] [facility] 2021-08-17 19:05:00 2021-08-17 21:15:00 Hospital Encounter Zarina Kennedy [facility] 1.2.840.114 350.1.13.10 4.2.7.2.686 [id number] [facility] 2021-08-17 00:00:00 2021-08-17 00:00:00 Orders Only Doctor Unassigned, [place] [facility] 1.2.840.114 350.1.13.10 4.2.7.2.686 [id number] [facility] 2021-08-13 16:00:00 2021-08-13 16:00:00 Outpatient R NICOLE [facility] [id number] [facility] 2021-08-13 13:32:20 2021-08-13 13:47:20 Inventory Control Planner Visit 2, Adc Lab Nicole [facility] nal Building 1.2.840.114 350.1.13.10 4.2.7.2.686 [id number] [facility] 2021-08-13 12:46:01 2021-08-13 13:29:24 Routine Visit Jedemory Wendy [facility] nal Building 1.2.840.114 350.1.13.10 4.2.7.2.686 [id number] [facility] 2021-08-11 00:00:00 2021-08-11 00:00:00 Nurse Triage Lashay Merritt [facility] 1.2.840.114 350.1.13.10 4.2.7.2.686 [id number] [facility] 2021-08-03 10:23:00 2021-08-03 13:15:00 Hospital Encounter Zarina Kennedy Vivian L [facility] 1..114 350.1.13.10 4.2.7.2.686 [id number] [facility] 2021-08-03 00:00:00 2021-08-03 00:00:00 Telephone Zarina [facility] 1.2.114 350.1.13.10 4.2.7.2.686 [id number] [facility] 2021-08-03 00:00:00 2021-08-03 00:00:00 Orders Only Doctor Unassigned, [place] [facility] 1.2840.114 350.1.13.10 4.2.7.2.686 [id number] [facility] 2021-08-01 15:55:38 2021-08-01 16:48:02 Routine Visit Zarina Kennedy Wendy Rivera [facility] 1.84.114 350.1.13.10 4.2.7.2.686 [id number] [facility] 2021-08-01 16:15:00 2021-08-01 16:15:00 Outpatient WENDY WALDROP [facility] [id number] [facility] 2021-07-20 13:13:35 2021-07-20 13:57:45 Inventory Control Planner Visit Ultrasound, Adc Mfm Sherry Cherry [facility] Building 1.84.114 350.1.13.10 4.2.7.2.686 [id number] [facility] 2021-07-20 13:30:00 2021-07-20 13:30:00 Outpatient P [facility] [id number] [facility] 2021-07-18 09:45:00 2021-07-18 09:45:00 Outpatient R WENDY RIVERA [facility] [id number] [facility] 2021-07-18 08:15:00 2021-07-18 08:15:00 Outpatient R [facility] [id number] [facility] 2021-07-17 15:44:11 2021-07-17 16:52:37 Routine Visit Zarina Kennedy [facility] 1.2.840.114 350.1.13.10 4.2.7.2.686 [id number] 134 [id number] [facility] 2021-07-17 15:44:11 2021-07-17 16:52:37 Routine Visit Zarina Kennedy [facility] 1.2.840.114 350.1.13.10 4.2.7.2.686 [id number] 134 [id number] [facility] 2021-07-17 16:15:00 2021-07-17 16:15:00 Outpatient R BRENT [facility] [id number] [facility] 2021-07-17 00:00:00 2021-07-17 00:00:00 Orders Only Doctor Unassigned, [place] [address].2.840.114 350.1.13.10 4.2.7.2.686 [id number] 009 [id number] [facility] 2021-07-17 00:00:00 2021-07-17 00:00:00 Orders Only Doctor Unassigned, [place] [facility] 1.2.840.114 350.1.13.10 4.2.7.2.686 [id number] 009 [id number] [facility] 2021-07-09 11:15:00 2021-07-09 11:15:00 Outpatient R ZARINA KENNEDY [facility] [id number] [facility] 2021-07-03 00:00:00 2021-07-03 00:00:00 Telephone Kennedy, Zarina [facility] 1.2.840.114 350.1.13.10 4.2.7.2.686 [id number] 134 [id number] [facility] 2021-07-03 00:00:00 2021-07-03 00:00:00 Telephone Zarina Kennedy [facility] 1.2.840.114 350.1.13.10 4.2.7.2.686 [id number] 134 [id number] [facility] 2021-06-28 10:40:29 2021-06-28 10:55:29 Inventory Control Planner Visit 2, Adc Lab Zarina Kennedy [facility] [place] nal Building 1.2.840.114 350.1.13.10 4.2.7.2.686 [id number] 353 [id number] [facility] 2021-06-28 10:40:29 2021-06-28 10:55:29 Inventory Control Planner Visit 2, Adc Lab Zarina Kennedy [facility] Building 1.2.840.114 350.1.13.10 4.2.7.2.686 [id number] 353 [id number] [facility] 2021-06-28 10:00:00 2021-06-28 10:00:00 Outpatient R [facility] [id number] [facility] 2021-06-28 00:00:00 2021-06-28 00:00:00 Telephone Zarina Kennedy [facility] nal Building 1.2.840.114 350.1.13.10 4.2.7.2.686 [id number] 134 [id number] [facility] 2021-06-25 10:31:20 2021-06-25 11:38:32 Routine Visit Zarina Kennedy [facility] 1.2.840.114 350.1.13.10 4.2.7.2.686 [id number] 134 [id number] [facility] 2021-06-25 11:00:00 2021-06-25 11:00:00 Outpatient R ZARINA KENNEDY [facility] [id number] [facility] 2021-06-11 17:01:00 2021-06-11 19:52:00 Emergency Zarina Kennedy [facility] 1.2.840.114 350.1.13.10 4.2.7.2.686 [id number] 083 [id number] [facility] 2021-06-11 00:00:00 2021-06-11 00:00:00 Telephone Zarina Kennedy [facility] nal Building 1.2.840.114 350.1.13.10 4.2.7.2.686 [id number] 134 [id number] [facility] 2021-06-07 00:00:00 2021-06-07 00:00:00 Telephone Zarina Kennedy [facility] 1.2.840.114 350.1.13.10 4.2.7.2.686 [id number] 134 [id number] [facility] 2021-05-29 15:17:17 2021-05-29 15:49:09 Nurse Visit Nurse, [facility] Zarina Kennedy [facility] nal Building 1.2.840.114 350.1.13.10 4.2.7.2.686 [id number] 134 [id number] [facility] 2021-05-29 15:07:51 2021-05-29 15:22:51 Inventory Control Planner Visit 2, [facility] Lab [facility] 1.2.840.114 350.1.13.10 4.2.7.2.686 [id number] 353 [id number] [facility] 2021-05-29 15:00:00 2021-05-29 15:00:00 Outpatient R [facility] [id number] [facility] 2021-05-29 00:00:00 2021-05-29 00:00:00 Telephone Zarina Kennedy [facility] Lori Sweeney [facility] Building 1.2.840.114 350.1.13.10 4.2.7.2.686 [id number] 134 [id number] [facility] 2021-05-28 13:26:09 2021-05-28 14:18:04 [facility] 1.2.840.114 350.1.13.10 4.2.7.2.686 [id number] 134 [id number] [facility] 2021-05-28 13:30:00 2021-05-28 13:30:00 Outpatient R [facility]ENT [facility] [id number] [facility] 2021-05-09 11:15:00 2021-05-09 11:15:00 Outpatient R WENDY RIVERA [facility] [id number] [facility] 2021-05-09 10:58:18 2021-05-09 11:13:18 Routine Visit Wendy Rivera [facility] 1.2.840.114 350.1.13.10 4.2.7.2.686 [id number] 134 [id number] [facility] 2021-05-07 00:00:00 2021-05-07 00:00:00 Telephone Zarina Kennedy [facility] 1.2.840.114 350.1.13.10 4.2.7.2.686 [id number] 134 [id number] [facility] 2021-04-27 12:57:28 2021-04-27 13:57:28 Inventory Control Planner Visit Ultrasound, Adc MfKian Cantu [facility] Building 1.2.840.114 350.1.13.10 4.2.7.2.686 [id number] 134 [id number] [facility] 2021-04-27 13:00:00 2021-04-27 13:00:00 Outpatient R [facility] [id number] [facility] 2021-04-24 00:00:00 2021-04-24 00:00:00 Telephone Zarina Kennedy [facility] Building 1.2840.114 350.1.13.10 4.2.7.2.686 [id number] 134 [id number] [facility] 2021-04-21 16:26:26 2021-04-21 16:59:11 Telemedici ne Visit Mihai Fernandez Unknown, Attending [facility] 1.2.114 350.1.13.10 4.2.7.2.686 [id number] 370 [id number] [facility] 2021-04-21 16:30:00 2021-04-21 16:30:00 Outpatient R UNKNOWN, ATTENDING [facility] [id number] [facility] 2021-04-19 11:49:00 2021-04-19 16:10:00 Emergency Zarina Kennedy [facility] 1.2840.114 350.1.13.10 4.2.7.2.686 [id number] 083 [id number] [facility] 2021-04-19 00:00:00 2021-04-19 00:00:00 Telephone Zarina Kennedy [facility] Building 1.20.114 350.1.13.10 4.2.7.2.686 [id number] 134 [id number] [facility] 2021-04-11 13:32:48 2021-04-11 13:47:48 Inventory Control Planner Visit 2, Adc Lab Zarina Kennedy [facility] Building 1.2840.114 350.1.13.10 4.2.7.2.686 [id number] [facility] [id number] [facility] 2021-04-11 13:05:36 2021-04-11 13:28:34 Routine Visit Zarina Kennedy [facility] Professio nal Building 1.2.840.114 350.1.13.10 4.2.7.2.686 [id number] 134 [id number] [facility] 2021-04-11 13:00:00 2021-04-11 13:00:00 Outpatient R ZARINA KENNEDY [facility] [id number] [facility] 2021-03-14 12:43:31 2021-03-14 13:35:28 Routine Visit Wendy Rivera [facility] Building 1.2.840.114 350.1.13.10 4.2.7.2.686 [id number] 134 [id number] [facility] 2021-03-14 12:43:31 2021-03-14 13:35:28 Routine Visit Wendy Rivera [facility] Building 1.2.840.114 350.1.13.10 4.2.7.2.686 [id number] 134 [id number] 2021-03-14 13:00:00 2021-03-14 13:00:00 [facility] [id number] 2021-02-28 00:00:00 2021-02-28 00:00:00 Telephone Zarina Kennedy [facility] Building 1.2.840.114 350.1.13.10 4.2.7.2.686 [id number] 134 [id number] [facility] 2021-02-21 13:15:00 2021-02-21 13:15:00 Outpatient R [facility] [id number] [facility] 2021-02-21 00:00:00 2021-02-21 00:00:00 Orders Only Doctor Unassigned, [place] [facility] 1.2840.114 350.1.13.10 4.2.7.2.686 [id number] [id number] [facility] 2021-02-14 15:01:28 2021-02-14 15:58:16 Routine Visit Zarina Kennedy [facility] 1.2.840.114 350.1.13.10 4.2.7.2.686 [id number] 134 [id number] [facility] 2021-02-14 15:45:00 2021-02-14 15:45:00 Outpatient R ZARINA KENNEDY [facility] [id number] [facility] 2021-01-23 00:00:00 2021-01-23 00:00:00 Orders Only Doctor Unassigned, [place] [facility] 1.2840.114 350.1.13.10 4.2.7.2.686 [id number] 009 [id number] [facility] 2021-01-19 00:00:00 2021-01-19 00:00:00 Telephone Zarina Kennedy [facility] 1.2.840.114 350.1.13.10 4.2.7.2.686 [id number] 134 [id number] [facility] 2021-01-18 14:10:26 2021-01-18 14:25:26 Inventory Control Planner Visit 2, Adc Lab Zarina Kennedy [facility] 1.2.840.114 350.1.13.10 4.2.7.2.686 [id number] 353 [id number] [facility] 2021-01-18 14:15:00 2021-01-18 14:15:00 Outpatient R [facility] [id number] [facility] 2021-01-18 00:00:00 2021-01-18 00:00:00 Case Management Wendy Rivera [facility] Building 1.2.840.114 350.1.13.10 4.2.7.2.686 [id number] 134 [id number] [facility] 2021-01-17 09:00:00 2021-01-17 09:00:00 Outpatient R [facility] [id number] [facility] 2021-01-16 08:45:00 2021-01-16 08:45:00 Outpatient R ZARINA KENNEDY [facility] [id number] [facility] 2021-01-16 00:00:00 2021-01-16 00:00:00 Telephone Zarina Kennedy [facility] 1.2.840.114 350.1.13.10 4.2.7.2.686 [id number] 134 [id number] [facility] 2021-01-15 11:32:17 2021-01-15 11:47:17 Inventory Control Planner Visit 2, Adc Lab [facility] 1.2.840.114 350.1.13.10 4.2.7.2.686 [id number] 353 [id number] [facility] 2021-01-15 10:17:01 2021-01-15 11:18:23 Initial Visit [facility] 1.2.840.114 350.1.13.10 4.2.7.2.686 [id number] 134 [id number] [facility] 2021-01-15 10:00:00 2021-01-15 10:00:00 Outpatient R ZARINA KENNEDY [facility] [id number] [facility] 2021-01-15 00:00:00 2021-01-15 00:00:00 Telephone Zarina Kennedy [facility] nal Building 1.2.840.114 350.1.13.10 4.2.7.2.686 [id number] 134 [id number] [facility] 2021-01-15 00:00:00 2021-01-15 00:00:00 Orders Only Doctor Unassigned, [place] [facility] 1.0.114 350.1.13.10 4.2.7.2.686 [id number] [id number] [facility] 2021-01-13 18:29:00 2021-01-13 22:52:00 Emergency Kary Lopez [facility] 1..114 350.1.13.10 4.2.7.2.686 [id number] 084 [id number] [facility] 2020-12-01 10:52:00 2020-12-01 12:00:00 Emergency Nusrat NELLA [facility] [id number] [facility] 2020-07-11 10:39:46 2020-07-11 11:22:54 Office Visit Norma Partida [facility] 1..114 350.1.13.10 4.2.7.2.686 [id number] 134 [id number] [facility] 2020-07-11 11:00:00 2020-07-11 11:00:00 Outpatient NORMA RODRIGUEZ [facility] [id number] [facility] 2020-07-11 00:00:00 2020-07-11 00:00:00 Orders Only Doctor Unassigned, [place] [facility] 1.2.114 350.1.13.10 4.2.7.2.686 [id number] [id number] [facility] 2020-07-05 16:00:00 2020-07-05 16:00:00 Outpatient R NORMA PARTIDA [facility] [id number] [facility] 2020-06-21 15:22:00 2020-06-21 18:25:00 Emergency Viviana Orr [facility] 1..114 350.1.13.10 4.2.7.2.686 [id number] 084 [id number] [facility] 2020-06-21 00:00:00 2020-06-21 00:00:00 Orders Only Doctor Unassigned, [place] [facility] 1.2840.114 350.1.13.10 4.2.7.2.686 [id number] [id number] [facility] 2020-05-01 00:00:00 2020-05-01 00:00:00 Orders Only Doctor Unassigned, [place] [facility] 1.2840.114 350.1.13.10 4.2.7.2.686 [id number] [id number] [facility] 2020-02-28 11:00:00 2020-02-28 11:00:00 Outpatient R WENDY RIVERA [facility] [id number] [facility] 2020-02-28 08:13:41 2020-02-28 08:28:41 Telemedici ne Visit Wendy Rivera [facility] 1.2.840.114 350.1.13.10 4.2.7.2.686 [id number] 134 [id number] [facility] 2020-02-26 11:00:00 2020-02-26 11:00:00 Outpatient R UNKNOWN, ATTENDING [facility] [id number] [facility] 2020-02-21 00:00:00 2020-02-21 00:00:00 Telephone Wendy Rivera [facility] 1.2.840.114 350.1.13.10 4.2.7.2.686 [id number] 134 [id number] [facility] 2020-02-04 00:00:00 2020-02-04 00:00:00 Telephone Wendy Rivera [facility] 1.2.840.114 350.1.13.10 4.2.7.2.686 [id number] 134 [id number] [facility] 2020-02-02 00:00:00 2020-02-02 00:00:00 Refill Zarina Kennedy [facility] 1.2.840.114 350.1.13.10 4.2.7.2.686 [id number] 083 [id number] [facility] 2020-01-30 23:20:00 2020-02-01 13:32:00 Hospital Encounter Zarina Kennedy [facility] 1.2.840.114 350.1.13.10 4.2.7.2.686 [id number] 083 [id number] [facility] 2020-01-31 11:00:00 2020-01-31 11:00:00 Outpatient WENDY WALDROP [facility] [id number] [facility] 2020-01-30 00:00:00 2020-01-30 00:00:00 Orders Only Doctor Unassigned, [place] [facility] 1.2.840.114 350.1.13.10 4.2.7.2.686 [id number] [id number] [facility] 2020-01-28 00:00:00 2020-01-28 00:00:00 Telephone Zarina Kennedy [facility] Building 1.2.840.114 350.1.13.10 4.2.7.2.686 [id number] 134 [id number] [facility] 2020-01-24 14:38:36 2020-01-24 14:53:36 Inventory Control Planner Visit 2, Adc Lab Zarina Kennedy [facility] nal Building 1.2.840.114 350.1.13.10 4.2.7.2.686 [id number] [facility] 2020-01-24 13:22:06 2020-01-24 14:11:49 Routine Visit Zarina Kennedy [facility] nal Building 1.2.840.114 350.1.13.10 4.2.7.2.686 [id number] 134 [id number] [facility] 2020-01-24 13:15:00 2020-01-24 13:15:00 Outpatient R ZARINA KENNEDY [facility] [id number] [facility] 2020-01-24 00:00:00 2020-01-24 00:00:00 Orders Only Doctor Unassigned, [place] [facility] 1.2.840.114 350.1.13.10 4.2.7.2.686 [id number] [id number] [facility] 2020-01-23 03:41:00 2020-01-23 07:15:00 Hospital Encounter Marco A Nieto Vien [facility] 1.2.840.114 350.1.13.10 4.2.7.2.686 [id number] 083 [id number] [facility] 2020-01-21 21:41:00 2020-01-22 01:25:00 Hospital Encounter Marco A Nieto [facility] 1.2.840.114 350.1.13.10 4.2.7.2.686 [id number] 083 [id number] [facility] 2020-01-20 00:00:00 2020-01-20 00:00:00 Case Management Zarina Knenedy [facility] Professio [facility] 1.2.840.114 350.1.13.10 4.2.7.2.686 [id number] 134 [id number] [facility] 2020-01-18 12:35:00 2020-01-18 15:00:00 Hospital Encounter Zarina Kennedy [facility] 1.2.840.114 350.1.13.10 4.2.7.2.686 [id number] 083 [id number] [facility] 2020-01-18 12:35:00 2020-01-18 12:35:00 Outpatient P ZARINA KENNEDY [facility] JONI [id number] [facility] 2020-01-10 13:56:38 2020-01-10 14:42:48 Routine Visit Wendy Rivera [facility] Building 1.2.840.114 350.1.13.10 4.2.7.2.686 [id number] 134 [id number] [facility] 2020-01-10 14:00:00 2020-01-10 14:00:00 [id number] 2020-01-06 11:15:00 2020-01-06 11:15:00 Outpatient R ZARINA KENNEDY [facility] [id number] [facility] 2020-01-06 00:00:00 2020-01-06 00:00:00 Nurse Triage Eda Santos [facility] 1.2.840.114 350.1.13.10 4.2.7.2.686 [id number] [id number] [facility] 2019-12-08 13:39:40 2019-12-08 14:27:14 Routine Visit Wendy Rivera [facility] 1.2.840.114 350.1.13.10 4.2.7.2.686 [id number] 134 [id number] [facility] 2019-11-01 12:45:26 2019-11-01 13:14:04 Office Visit Martha Cohn Joseph W [facility] [employer]OR [employer] [facility] 1.2.840.114 350.1.13.10 4.2.7.2.686 [id number] [facility] 2019-07-29 00:00:00 2019-07-29 00:00:00 Telephone Brent Zarina [facility] Building 1.2.840.114 350.1.13.10 4.2.7.2.686 [id number] 134 [id number] [facility] 2019-07-28 00:00:00 2019-07-28 00:00:00 Case Management Zarina Kennedy [facility] Building 1.2.840.114 350.1.13.10 4.2.7.2.686 [id number] 134 [id number] [facility] 2019-07-27 15:56:23 2019-07-27 16:11:23 Nurse Visit Nurse, [facility] Zarina Kennedy [facility] 1.2.840.114 350.1.13.10 4.2.7.2.686 [id number] 134 [id number] [facility] 2019-07-23 00:00:00 2019-07-23 00:00:00 [facility] 1.2.840.114 350.1.13.10 4.2.7.2.686 [id number] 134 [id number] [facility] 2019-07-21 13:20:15 2019-07-21 13:35:15 Inventory Control Planner Visit 1, [facility] Lab Zarina Kennedy [facility] 1.2.840.114 350.1.13.10 4.2.7.2.686 [id number] 353 [id number] [facility] 2019-07-20 16:27:05 2019-07-20 17:06:12 Routine Visit [facility] 1.2.840.114 350.1.13.10 4.2.7.2.686 [id number] 134 [id number] [facility] 2019-07-15 00:00:00 2019-07-15 00:00:00 Telephone [facility] 1.2.840.114 350.1.13.10 4.2.7.2.686 [id number] 134 [id number] [facility] 2019-07-14 00:00:00 2019-07-14 00:00:00 Telephone Zarina Kennedy [facility] Building 1.2.840.114 350.1.13.10 4.2.7.2.686 [id number] 134 [id number] [facility] 2019-07-07 14:11:07 2019-07-07 16:17:14 Initial Visit Zarina Kennedy [facility] Lori Sweeney [facility] Building 1.2840.114 350.1.13.10 4.2.7.2.686 [id number] 134 [id number] [facility] 2019-07-07 00:00:00 2019-07-07 00:00:00 Orders Only Doctor Unassigned, [place] [facility] 1.0.114 350.1.13.10 4.2.7.2.686 [id number] [id number] [facility] Results Test Description Test Time Test Comments Results Result Co mments Source [facility] with [id number] 10:52:48* Test Item Value Reference Range Interpretation [...] 33.4 g/dL 31.6-35.1 RDW-SD (test code = 90426-6) 39.2 fL 39.0-49.9 RDW-CV (test code = 788-0) 12.2 % 12.0-15.5 PLT (test code = 777-3) 240 See_Comment [Automated messa ge] The system which generated this result transmitted reference range: 166 - 358 10*3/?L. The reference range was not used to interpret this result as normal/abnormal. MPV (test code = 58192-7) 9.5 fL 9.5-12.9 NRBC/100 WBC (test code = 7585292605) 0.0 See_Comment [Automated [employer] ssage] The system which generated this result transmitted reference range: 0.0 - 10.0 /100 WBCs. The reference range was not used to interpret this result as normal/abnormal. NRBC x10^3 (test code = 3235800944) See_Comment [Automated messa ge] The system which generated this result transmitted reference range: 10*3/?L. The reference range was not used to interpret this result as normal/abnormal. GRAN MAT (NEUT) % (test code = 770-8) 53.1 % IMM GRAN % (test code = 9588139830) 0.30 % LYMPH % (test code = 736-9) 37.8 % MONO % (test code = 5905-5) 5.2 % EOS % (test code = 713-8) 3.2 % BASO % (test code = 706-2) 0.4 % GRAN MAT x10^3(ANC) (test code = 5442559288) 4.11 10*3/uL 1.88-7.09 IMM GRAN x10^3 (test code = 3893037125) 0.00-0.06 LYMPH x10^3 (test code = 731-0) 2.92 10*3/uL 1.32-3.29 MONO x10^3 (test code = 742-7) 0.40 10*3/uL 0.33-0.92 EOS x10^3 (test code = 711-2) 0.25 10*3/uL 0.03-0.39 BASO x10^3 (test code = 704-7) 0.03 10*3/uL 0.01-0.07 Lab Interpretation (test code = 82576-5) Abnormal [facility] METABOLIC PANEL (NA, K, CL, CO2, GLUCOSE, BUN, CREATININE, CA)2023-10-14 02:10:35* Test Item Value Reference Range Interpretation Comme nts NA (test code = 8814007257) 134 mmol/L 135-145 L K (test code = 8712188629) 3.4 mmol/L 3.5-5.0 L CL (test code = 9897902836) 111 mmol/L 98-108 H CO2 TOTAL (test code = 1893657433) 17 mmol/L 23-31 L AGAP (test code = 6402045337) 6 2-16 BUN (test code = 9210025908) 14 mg/dL 7-23 GLUCOSE (test code = 3417805621) 82 mg/dL 70-110 CREATININE (test code = 7227683086) 0.45 mg/dL 0.50-1.04 L CALCIUM (test code = 6581872458) 8.0 mg/dL 8.6-10.6 L eGFR (test code = 38375-0) 139.7 mL/min/1.73m2 CKD-EPI eGFR (2020). Assuming creatinine has been stable day-to-day for at least three months, the eGFR indicates Category G1 (>= 90 mL/min/1.73 m2) Lab Interpretation (test code = 60725-8) Abnormal [facility] WITH [id number] 01:49:54* Test Item Value Reference Range Interpretation Comme nts WBC (test code = 6690-2) 10.05 See_Comment [Automated [employer] ge] The system which generated this result [...] 33.6 g/dL 31.6-35.1 RDW-SD (test code = 95902-9) 39.0 fL 39.0-49.9 RDW-CV (test code = 788-0) 12.4 % 12.0-15.5 PLT (test code = 777-3) 251 See_Comment [Automated messa ge] The system which generated this result transmitted reference range: 166 - 358 10*3/?L. The reference range was not used to interpret this result as normal/abnormal. MPV (test code = 70460-8) 9.4 fL 9.5-12.9 L NRBC/100 WBC (test code = 6867398997) 0.0 See_Comment [Automated [employer] ssage] The system which generated this result transmitted reference range: 0.0 - 10.0 /100 WBCs. The reference range was not used to interpret this result as normal/abnormal. NRBC x10^3 (test code = [id number]) See_Comment [Automated messa ge] The system which generated this result transmitted reference range: 10*3/?L. The reference range was not used to interpret this result as normal/abnormal. GRAN MAT (NEUT) % (test code = 770-8) 62.2 % IMM GRAN % (test code = 5027830582) 0.30 % LYMPH % (test code = 736-9) 28.4 % MONO % (test code = 5905-5) 6.7 % EOS % (test code = 713-8) 2.1 % BASO % (test code = 706-2) 0.3 % GRAN MAT x10^3(ANC) (test code = 7107968852) 6.26 10*3/uL 1.88-7.09 IMM GRAN x10^3 (test code = 2068520988) 0.03 10*3/uL 0.00-0.06 LYMPH x10^3 (test code = 731-0) 2.85 10*3/uL 1.32-3.29 MONO x10^3 (test code = 742-7) 0.67 10*3/uL 0.33-0.92 EOS x10^3 (test code = 711-2) 0.21 10*3/uL 0.03-0.39 BASO x10^3 (test code = 704-7) 0.03 10*3/uL 0.01-0.07 Lab Interpretation (test code = 03298-2) Abnormal [facility]. METABOLIC PANEL (30075)2023 04:40:07* Test Item Value Reference Range Interpretation Comme nts NA (test code = [id number]) 142 mmol/L 135-145 K (test code = 6926286405) 3.6 mmol/L 3.5-5.0 CL (test code = 3426097821) 109 mmol/L 98-108 H CO2 TOTAL (test code = 1621148256) 21 mmol/L 23-31 L AGAP (test code = 6135686273) 12 2-16 BUN (test code = 9096762864) 11 mg/dL 7-23 GLUCOSE (test code = 3386138393) 106 mg/dL 70-110 CREATININE (test code = 7347743086) 0.62 mg/dL 0.50-1.04 TOTAL BILI (test code = 0542463269) 0.2 mg/dL 0.1-1.1 CALCIUM (test code = 3551068576) 9.4 mg/dL 8.6-10.6 T PROTEIN (test code = 1944704091) 7.4 g/dL 6.3-8.2 ALBUMIN (test code = 9215747274) 4.5 g/dL 3.5-5.0 ALK PHOS (test code = 7204253097) 79 U/L 34-122 ALTv (test code = 1742-6) 32 U/L 5-35 AST(SGOT) (test code = 3603210306) 28 U/L 13-40 eGFR (test code = 00750-5) 130.1 mL/min/1.73m2 CKD-EPI eGFR (2020). Assuming creatinine has been stable day-to-day for at least three months, the eGFR indicates Category G1 (>= 90 mL/min/1.73 m2) Lab Interpretation (test code = 47758-9) Abnormal [facility] WITH [id number] 04:29:09* Test Item Value Reference Range Interpretation Comme nts WBC (test code = 6690-2) 7.15 See_Comment [Automated messa ge] The system which generated this result transmitted reference range: 4.30 - 11.10 10*3/?L. The reference range was not used to interpret this result as normal/abnormal. RBC (test code = 789-8) 4.45 See_Comment [Automated Application Expertsa ge] The system which generated this result [...] 33.4 g/dL 31.6-35.1 RDW-SD (test code = 13571-6) 40.4 fL 39.0-49.9 RDW-CV (test code = 788-0) 12.6 % 12.0-15.5 PLT (test code = 777-3) 269 See_Comment [Automated Application Expertsa ge] The system which generated this result transmitted reference range: 166 - 358 10*3/?L. The reference range was not used to interpret this result as normal/abnormal. MPV (test code = 47469-9) 9.6 fL 9.5-12.9 NRBC/100 WBC (test code = 7326016029) 0.0 See_Comment [Automated me ssage] The system which generated this result transmitted reference range: 0.0 - 10.0 /100 WBCs. The reference range was not used to interpret this result as normal/abnormal. NRBC x10^3 (test code = 6610113081) See_Comment [Automated me ssage] The system which generated this result transmitted reference range: 10*3/?L. The reference range was not used to interpret this result as normal/abnormal. GRAN MAT (NEUT) % (test code = 770-8) 69.3 % IMM GRAN % (test code = 1364467243) 0.10 % LYMPH % (test code = 736-9) 22.2 % MONO % (test code = 5905-5) 7.0 % EOS % (test code = 713-8) 1.1 % BASO % (test code = 706-2) 0.3 % GRAN MAT x10^3(ANC) (test code = 6507790215) 4.95 10*3/uL 1.88-7.09 IMM GRAN x10^3 (test code = 0232293792) 0.00-0.06 LYMPH x10^3 (test code = 731-0) 1.59 10*3/uL 1.32-3.29 MONO x10^3 (test code = 742-7) 0.50 10*3/uL 0.33-0.92 EOS x10^3 (test code = 711-2) 0.08 10*3/uL 0.03-0.39 BASO x10^3 (test code = 704-7) 0.01-0.07 [id number] 04:05:00* Test Item Value Reference Range Interpretation Comme nts POCT PREG (test code = 1605) Negative On board controls acceptable with C Line (test code = 3574) Yes POCT PREG LOT # (test code = 3575) [id number] POCT PREG TEST DATE ( test code = 3576) 11/12/2024 Lab Interpretation (test cod e = 90969-9) Normal [facility], THIRD [id number] 06:03:21* Test Item Value Reference Range Interpretation Comme nts TSH, THIRD GENERATION (test code = 2821) 1.000 UIU/ML 0.400-4.100 UNLESS OTHERWISE INDICATED, ALL TESTING PERFORMED AT [facility] [address] [place] [address] CHIROPRA[employer]IC TEACHER: DOMITILA YOUNG M.D. CLIA NUMBER [id number] [place]. [id number] LIPID [id number] 06:02:54* Test Item Value Reference Range Interpretation [...] SPECIMENS. FOR MOREINFORMATION, SEE CLIENT ANNOUNCEMENT AT [email or web address] /CalcLDL-C RISK RATIO LDL/HDL (test code = 2237) 2.56 RATIO <3.22 COMPREHENSIVE METABOLIC [id number] 06:02:54* Test Item Value Reference Range Interpretation Comme nts GLUCOSE (test code = 2216) 84 MG/DL 70-99 BUN (test code = 2207) 9 MG/DL 6-20 CREATININE (test code = 2213) 0.67 MG/DL 0.60-1.30 eGFR (2020 CKD-EPI) (test code = 70466) 127 ML/MIN/1.73 >60 CALC BUN/CREAT (test code [...] 30 U/L 5-40 CBC W/AUTO DIFF WITH [id number] 04:02:12* Test Item Value Reference Range Interpretation [...] 0.00-0.10 ABS NUCLEATED RBCS (test code = 16436) 0.00 K/UL 0.00-0.11 HEMOGLOBIN [id number] 03:49:49* Test Item Value Reference Range Interpretation Comme nts HEMOGLOBIN A1c (test code = 75401) 5.3 % 4.2-5.6 Notes Date/Time Note Provider Source 2023-11-13 13:45:00 8i4YMZt3byxVtZHEI2m+ X4vR4MW/TznuSJPrCtYKac V6B9h70PqHFQBFN0xRSdOr7227-79-61Y83:45:00F ormatting of this note is different from the original.Images from the original note were not included.Venipuncture collection performed by clean technique on the left anticubitus. Total of 1 attempts were made. Slight pressure and a bandage/dressing were applied to the site(s). The patient experienced no complications. The following specimens were processed according to instructions and sent to [facility] laboratories per lab order on 11/13/2023:LT BLUESST 3RED 1LAVPPTDK GREEN (LiHep)DK GREEN (SodH)GRAYDK BLUE (K2)DK BLUE (S)ACDBlood CultureNIPT/NTD 84535-1Qlavz NmobXH5140-83-02R02:36:03Nurse NoteTXT1.2.840.606582.1.13.104.2.7.2.55523 9|[id number] for patient flnb28665-0Xkucz NoteLNNARRATIVEFormatted C-CDA narrative text[address] GsucIihjsboayDaargnzvaJAPK1466900724ZDBEBD PGGLWTKINKFBFLHV0246-61-84Z05:36:031.2.840 .913853.1.72.3.15|1.2.840.186230.1.13.104. 2.7.2.727879_[id number] [facility] 2023-11-13 13:15:00 sExU7SPXA6zHCS4L+erU oiMRx+JaE3tSppFN5WlSK8 MNajdCaDx0LeXT2NI8QQpc6007-27-49Z36:15:00A ddended by: FIORDALIZA TATUM RN on: 11/13/2023 01:45 PMModules accepted: Orders [id number] PavndsljPB9547-20-28A20:45:27Addendum DocumentTXT1.2.840.227808.1.13.104.2.7.2.7 30773|[id number] for patient coin25464-4AbzxEGDWBZONQPQTxvimqjzj C-CDA narrative text[address] IvrrUsf[id number] FMXXNSRKRGFWAHSQ4219-42-90G68:45:271.2.840 .917425.1.72.3.15|1.2.840.353834.1.13.104. 2.7.2.727879_[id number] [facility]"
--- NOTE | 2024-01-03 20:17 | RAD REPORT ---
[facility] CLINICAL HISTORY: SOB COMPARISON: Chest Single View dated 11/08/2022; Chest Single View dated 02/19/2020; Chest Single View dated 02/04/2020; Chest Single View dated 07/10/2019 TECHNIQUE: Portable AP view of the chest. FINDINGS: The lungs are clear. No pneumothorax or effusion. The cardiomediastinal contours are unre markable. IMPRESSION: No acute cardiopulmonary process.
--- NOTE | 2024-01-03 21:43 | EDPHYS ---
Physician Documentation [facility] Name: Devi Calvert Age: 23 yrs Sex: Female : 2000 Arrival Date: 01/03/2024 Time: 19:01 Bed 6 Private MD: Jovanna Harman ED Physician Raffaele Simpson HPI: 01/03 19:20 This 23 yrs old Female presents to ER via Ambulatory with complaints of cp Breathing Difficulty. 19:20 The patient has shortness of breath at rest. cp 19:20 Onset: The symptoms/episode began/occurred yesterday, and became worse today. Duration: cp The symptoms are continuous, and are steadily getting worse. Associated signs and symptoms: Pertinent positives: non-productive cough, sore throat, Pertinent negatives: chest pain, diaphoresis, fever. Severity of symptoms: in the emergency department the symptoms are unchanged despite home interventions, using inhaler. Historical: - Allergies: 19:09 No Known Allergies; cm10 - PMHx: 19:09 Anxiety; Asthma; Depression; IPH; Migraines; previous suicide attempt; Schizophrenia; cm10 vocal chords problem; - PSHx: 19:09 Cholecystectomy; cm10 - Immunization history:: Adult Immunizations up to date. - Social history:: Smoking status: Patient denies any tobacco usage or history of. ROS: 19:25 Constitutional: Negative for body aches, chills, fever, poor PO intake, cp 19:25 Eyes: Negative for injury, pain, redness, and discharge, cp 19:25 ENT: Negative for drainage from ear(s), ear pain, sore throat, difficulty swallowing, difficulty handling secretions, 19:25 Cardiovascular: Negative for chest pain, edema, palpitations, 19:25 Respiratory: Positive for cough, with no reported sputum, shortness of breath, at rest. 19:25 Abdomen/GI: Negative for abdominal pain, vomiting, diarrhea, constipation, 19:25 Skin: Negative for cellulitis, rash, 19:25 Neuro: Negative for altered mental status, headache, numbness, weakness, 19:25 All other systems are negative, cp Exam: 19:30 Constitutional: The patient appears in no acute distress, alert, awake, cp non-diaphoretic, non-toxic, well developed, well nourished, anxious, 19:30 Head/Face: Normocephalic, atraumatic. cp 19:30 Eyes: Periorbital structures: appear normal, Conjunctiva: normal, no exudate, no injection, Sclera: no appreciated abnormality, Lids and lashes: appear normal, bilaterally, 19:30 ENT: External ear(s): are unremarkable, Ear canal(s): are normal, clear, TM's: dullness, bilaterally, Nose: is normal, Mouth: Lips: moist, Oral mucosa: pink and intact, moist, Posterior pharynx: is normal, airway is patent, no erythema, no exudate, 19:30 Neck: ROM/movement: is normal, is supple, without pain, no range of motions limitations, 19:30 Chest/axilla: Inspection: normal, 19:30 Cardiovascular: Rate: tachycardic, Rhythm: regular, Edema: is not appreciated, JVD: is not appreciated, 19:30 Respiratory: the patient does not display signs of respiratory distress, Respirations: labored breathing, that is mild, intercostal retractions, are absent, Breath sounds: bronchial sounds, that are mild, are heard diffusely, decreased breath sounds, are not appreciated, stridor, is not appreciated, wheezing: expiratory that is mild, is heard diffusely, 19:30 Abdomen/GI: Inspection: abdomen appears normal, Palpation: abdomen is soft and non-tender, in all quadrants, 19:30 Back: pain, is absent, ROM is normal, 19:30 Skin: no rash present. 19:30 Neuro: Orientation: to person, place \T\ time. Mentation: is normal, Cerebellar function: is grossly normal, Motor: moves all fours, strength is normal, Sensation: is normal, 19:36 ECG was reviewed by the Attending Physician. cp Vital Signs: 19:08 BP 114 / 82; Pulse 101; Resp 21; Temp 98.4; Pulse Ox 99% on R/A; Weight 57.61 kg; cm10 Height 5 ft. 2 in. ; Pain 3/10; 20:50 BP 107 / 81; Pulse 89; Resp 19; Temp 97.8; Pulse Ox 99% on R/A; as9 21:30 BP 110 / 90; Pulse 86; Resp 19; Temp 97.8; Pulse Ox 99% on R/A; as9 19:08 Body Mass Index 23.23 (57.61 kg, 157.48 cm) cm10 19:08 Pain Scale: Adult cm10 MDM: 19:15 Patient medically screened. cp 21:41 Data reviewed: vital signs, nurses notes, lab test result(s), radiologic studies, plain cp films. 21:41 Differential diagnosis: Anxiety Reaction asthma, pneumonia, Pneumothorax pulmonary cp edema, Pulmonary Embolism. I considered the following discharge prescriptions or medication management in the emergency department Medications were administered in the Emergency Department. See MAR. Care significantly affected by the following chronic conditions: asthma. Counseling: I had a detailed discussion with the patient and/or guardian regarding the historical points, exam findings, and any diagnostic results supporting the discharge/admit diagnosis, lab results, radiology results, to return to the emergency department if symptoms worsen or persist or if there are any questions or concerns that arise at home. Response to treatment: the patient's symptoms have markedly improved after treatment, and as a result, I will discharge patient. 01/03 19:17 Order name: COVID-19 SARS RT PCR; Complete Time: 21:07 cp 01/03 21:07 Interpretation: Reviewed. 01/03 19:17 Order name: Influenza Screen (a \T\ B); Complete Time: 21:07 01/03 21:07 Interpretation: Reviewed. 01/03 19:17 Order name: XRAY Chest (1 view); Complete Time: 21:07 cp 01/03 19:17 Order name: EKG; Complete Time: 19:17 cp 01/03 19:17 Order name: EKG - Nurse/Tech; Complete Time: 19:28 cp EC:36 Rate is 99 beats/min. Rhythm is regular. GA interval is normal. QRS interval is normal. cp QT interval is normal. T waves are Inverted in lead aVR. Interpreted by me. Reviewed by me. Administered Medications: 19:28 Drug: DuoNeb Nebulize (2.5 mg - 0.5 mg) 3 ml Nebulizer once Route: Nebulizer; rv 21:28 Follow up: Response: No adverse reaction; Marked relief of symptoms rv 21:28 Drug: MethylPREDNISolone Sodium Succinate IM 125 mg IM once Route: IM; Site: right rv deltoid; 22:02 Follow up: Response: No adverse reaction; Marked relief of symptoms as9 Disposition: 01/04 03:16 Co-signature as Attending Physician, Raffaele Simpson MD I reviewed the patient's care rt provided by the Advanced Practice Provider and agree with the diagnosis and treatment plan. Disposition Summary: 01/03/24 21:42 Discharge Ordered Notes: Location: Home cp Problem: new cp Symptoms: have improved cp Condition: Stable cp Diagnosis - Shortness of breath cp - Cough cp Followup: cp - With: Private Physician - When: 2 - 3 days - Reason: Recheck today's complaints Discharge Instructions: - Discharge Summary Sheet cp - Shortness of Breath, Adult cp - Cough, Adult cp Forms: - Medication Reconciliation Form cp - Thank You Letter cp - Antibiotic Education cp - Prescription Opioid Use cp - Patient Portal Instructions cp - Leadership Thank You Letter cp - Work release form jw7 Prescriptions: - Bromfed DM 2-30-10 mg/5 mL Oral syrup - administer 10 milliliter ORAL route every 6 hours as needed for cold symptoms; cp 240 milliliter; Refills: 0, Product Selection Permitted - Medrol ([place]) 4 mg Oral Tablets, Dose Pack - take 1 tablet ORAL route as directed - follow package instructions; 1 packet; cp Refills: 0, Product Selection Permitted Signatures: Dispatcher [employer] EDMS Joon Murdock PA PA cp Tone Kennedy RN RN rv [place], Ryan, MD MD rt Bobbi Styles RN RN cm10 Gabo Baltazar RN as9
--- NOTE | 2024-01-03 21:43 | ER ---
Nurse's Notes [facility] Name: Devi Calvert Age: 23 yrs Sex: Female : 2000 Arrival Date: 01/03/2024 Time: 19:01 Bed 6 Private MD: Jovanna Harman Diagnosis: Shortness of breath;Cough Presentation: 01/03 19:08 Chief complaint: Patient states: Shortness of breath onset yesterday. Pt states that cm10 she has been using her inhaler with no relief. Coronavirus screen: Vaccine status: Patient reports being unvaccinated. Client denies travel out of the [place] in the last 14 days. Ebola Screen: Patient denies travel to an Ebola-affected area in the 21 days before illness onset. No symptoms or risks identified at this time. Initial Sepsis Screen: Does the patient meet any 2 criteria? RR > 20 per min. HR > 90 bpm. Does the patient have a suspected source of infection? No. Patient's initial sepsis screen is negative. Risk Assessment: Do you want to hurt yourself or someone else? Patient reports no desire to harm self or others. Onset of symptoms was January 03, 2024. 19:08 Method Of Arrival: Ambulatory cm10 19:08 Acuity: CHANTAL 3 cm10 Triage Assessment: 19:34 General: Appears in no apparent distress. Respiratory: the patient reports symptoms rv have resolved. 22:04 Respiratory: Onset: The symptoms/episode began/occurred. Respiratory: Onset: The as9 symptoms/episode began/occurred today, the patient has mild shortness of breath. Historical: - Allergies: 19:09 No Known Allergies; cm10 - PMHx: 19:09 Anxiety; Asthma; Depression; IPH; Migraines; previous suicide attempt; Schizophrenia; cm10 vocal chords problem; - PSHx: 19:09 Cholecystectomy; cm10 - Immunization history:: Adult Immunizations up to date. - Social history:: Smoking status: Patient denies any tobacco usage or history of. Screenin:33 [facility] ED Fall Risk Assessment (Adult) History of falling in the last 3 months, rv including since admission No falls in past 3 months (0 pts) Score/Fall Risk Level 0 - 2 = Low Risk Oriented to surroundings, Maintained a safe environment, Educated pt \T\ family on fall prevention, incl call for assistance when getting out of bed, Assessed \T\ reinforced patient's understanding of fall precautions. Abuse screen: Denies threats or abuse. Denies injuries from another. Nutritional screening: No deficits noted. Tuberculosis screening: No symptoms or risk factors identified. Assessment: 19:33 General: Appears comfortable, Behavior is calm, cooperative. Pain: Denies pain. Neuro: rv Level of Consciousness is awake, alert, obeys commands, Oriented to person, place, time, situation. Cardiovascular: Capillary refill < 3 seconds Patient's skin is warm and dry. Cardiovascular: Rhythm is regular. Respiratory: Reports shortness of breath on exertion Airway is patent Respiratory effort is even, unlabored, Breath sounds are clear bilaterally. GI: No signs and/or symptoms were reported involving the gastrointestinal system. : No signs and/or symptoms were reported regarding the genitourinary system. Derm: Skin is intact. Vital Signs: 19:08 BP 114 / 82; Pulse 101; Resp 21; Temp 98.4; Pulse Ox 99% on R/A; Weight 57.61 kg; cm10 Height 5 ft. 2 in. ; Pain 3/10; 20:50 BP 107 / 81; Pulse 89; Resp 19; Temp 97.8; Pulse Ox 99% on R/A; as9 21:30 BP 110 / 90; Pulse 86; Resp 19; Temp 97.8; Pulse Ox 99% on R/A; as9 19:08 Body Mass Index 23.23 (57.61 kg, 157.48 cm) cm10 19:08 Pain Scale: Adult cm10 ED Course: 19:03 Patient arrived in ED. mr 19:03 Jovanna Harman is Private Physician. mr 19:09 Triage completed. cm10 19:10 Arm band placed on Patient placed in an exam room, on a stretcher. cm10 19:13 Raffaele Simpson MD is Attending Physician. rt 19:15 Joon Murdock PA is PHCP. cp 19:33 Patient has correct armband on for positive identification. Client placed on continuous rv cardiac and pulse oximetry monitoring. NIBP monitoring applied. 19:33 No provider procedures requiring assistance completed. Patient did not have IV access rv during this emergency room visit. 19:36 XRAY Chest (1 view) In Process Unspecified. EDMS 21:24 Tone Kennedy, RN is Primary Nurse. rv 22:03 Provided Education on: discharge medication and instructions given and explained well as9 to the patient and family.. Administered Medications: 19:28 Drug: DuoNeb Nebulize (2.5 mg - 0.5 mg) 3 ml Nebulizer once Route: Nebulizer; rv 21:28 Follow up: Response: No adverse reaction; Marked relief of symptoms rv 21:28 Drug: MethylPREDNISolone Sodium Succinate IM 125 mg IM once Route: IM; Site: right rv deltoid; 22:02 Follow up: Response: No adverse reaction; Marked relief of symptoms as9 Medication: 19:33 VIS not applicable for this client. rv Outcome: 21:42 Discharge ordered by MD. cp 22:02 Discharged to home ambulatory, as9 22:02 Condition: good 22:02 Discharge instructions given to patient, family, Instructed on discharge instructions, follow up and referral plans. medication usage, Demonstrated understanding of instructions, follow-up care, medications, 22:06 Patient left the ED. as9 Signatures: Dispatcher [employer] EDFL Daiana Rebolledo, Tim Reg mr Joon Murdock, PA PA cp Tone Kennedy, RN RN rv Raffaele Simpson MD MD rt Bobbi Styles RN RN cm10 Gabo Baltazar RN RN as9
[2024-01-03 22:58] VITALS: BP 110/90; TEMP 97.8; O2SAT 99
--- NOTE | 2024-01-05 14:33 | EKG ---
Test Date: 2024-01-03 Test Time: 19:31:29 Radiological Equipment Specialist: JULIA MEASUREMENT RESULTS: Intervals: Rate: 99 MI: 126 QRSD: 72 QT: 342 QTc: 438 [place]: P: 73 MI: 126 QRS: 29 T: 41 INTERPRETIVE STATEMENTS: Normal sinus rhythm Normal ECG Compared to ECG 11/08/2022 08:19:04 Sinus arrhythmia no longer present Electronically Signed On 01-05-24 14:27:57 ASSIGNMENT AGENT by Marquise Delgado
== END ==
LOC: ER 19:01
DX: R06.02 Shortness of breath (principal); R05.9 Cough, unspecified; Z11.52 Encounter for screening for COVID-19
CPT/HCPCS: 93005; 87635; 87804 ×2; 71045; J7613; J7644; J2930; 94640; 96372; 99284

== ENCOUNTER 2024-05-02 17:56 | Emergency (ER) | payer BC ==
--- OUTSIDE RECORDS SUMMARY | 2024-05-02 18:21 | XMS REPORT | Continuity of Care Document ---
Author Name Unknown Address [address] [facility] [place] [address] [facility] thconnect Address [address] [facility] [address] [place] [address] Care Team Providers Care Certified Nuclear Medicine Technologist Name Role Phone Reyna Campbell Primary Care Physician + [phone] ZARINA KENNEDY Attending Clinician Unavailable TARAS SAEED Attending Clinician Unavailluis zaman Nurse, [facility] Attending Clinician Un available Zarina Kennedy MD Attending Clinician [phone] MICHELE BAUTISTA Attending Clinician Un available VIVIANA DOWNEY Attending Clinician Unavailable Viviana Downey NP Attending Clinician [phone] FIDE FREITAS Attending Clinician Unavailable Fide Freitas MD Attending Clinician [phone], [facility] Attending Clinician Unavailable Doctor Unassigned, [place] Attending Clinician U herlindaailMARCO A De Paz Attending Clinician UnavailMallorie Mata MD Attending Clinician [phone] Omer Burris MD, [place]hell Attending Clinician + [phone] Marco A Mcmillan MD Attending Clinician +[phone] MALLORIE ALEJANDRA Attending Clinician Unavailable AILIN TANG Attending Clinician UnavailAilin Israel Attending Clinician [phone] DAVY SOTELO Attending Clinician Unavailable DAVY SOTELO Attending Clinician Unavailable Iris Keyes MD Attending Clinician [phone] BRIT LAUREN Attending Clinician UnavailIDA Ash Attending Clinician Unavailable Norma Partida MD Attending Clinician [phone] NORMA PARTIDA Attending Clinician Unavailable HINA SANON Attending Clinician HINA Ambrose Attending Clinician WENDY Elam Attending Clinician Unavailable Wendy Rivera PA-C Attending Clinician [phone] GUTIERREZ BRAVO Attending Clinician Unavailable Gutierrez Bravo MD Attending Clinician [phone] [facility] Attending Clinician Unavailable Isha Reaves Attending Clin ician [place], Nephrology Attending Clinician Unavaila STAN Hampton Attending Clinician Unavail able STAN TY Attending Clinician Unavail able Pedro MILLER Attending Clinician Unavailable Paul PACPedro Attending Clinician [phone] Jordan Gaspar CRNA Attending Clinician [phone] Jesus Martinez MD, Leonard Attending Clinician [phone] Only, Adc Test Attending Clinician Unavailable Oumar ABRAHAM, Kary Attending Clinician [phone] Shaina RN, Lashay Castellon Attending Clinician Unavailable Ultrasound, [facility] Attending Clinician Unavaila beata Aguillon MD, Sherry Attending Clinician + Kian Gutierrez MD Attending Clinician [phone] Jim ABRAHAM, Mihai Attending Clinician [phone] Unknown, Attending Attending Clinician Unavailab le RAVI, ATTENDING Attending Clinician Unavailab Kary Harkins Attending Clinician [phone] DR GERMAN CARMEN Attending Clinician Unavailabl Marco A Holcomb MD Attending Clinician + [phone] Eda Santos RN Attending Clinician Unavailable Martha Cohn Attending Clinician Unavail able Tyrel ABRAHAM, Jonny Marquez Attending Clinician [phone] 1, [facility] Attending Clinician Unavailable ZARINA KENNEDY Admitting Clinician Unavailable MARCO A NIETO Admitting Clinician Unavaila MICHELE Browning Admitting Clinician Un available LASHELL CH Admitting Clinician Graham Burris MD, Lashell Admitting Clinician + [phone] MALLORIE ALEJANDRA Admitting Clinician Unavailable Justyn ABRAHAM, Mallorie Admitting Clinician [phone] IRIS KEYES Admitting Clinician Unavailab WENDY Short Admitting Clinician Unavailable Brent ABRAHAM, Zarina Velazquez Admitting Clinician [phone] Norma Partida MD Admitting Clinician [phone] NORMA PARTIDA Admitting Clinician Unavailable Kary Oseguera MD Admitting Clinician DR GERMAN CARMEN Admitting Clinician Cecy Nieto MD, Marco A Admitting Clinician [phone] Payers Payer Name Policy Type Policy Number Effective Date Expirati on Date Source [facility] [id number] 2020 00:00:00 [place] [facility] [id number] 2019 00:00:00 [place] [id number] 2020 00:00:00 Problems Condition Name Condition Details Condition Category Status Onset Date Resolution Date Last Treatment Date Treating Clinician Comments Source Decreased libido Decreased libido Disease Active 11-13 00:00: 00 [facility] Hydronephr osis Hydronephr osis Disease Active 2022-11 00:00: 00 [facility] Calculus of kidney Calculus of kidney Disease Active 2022-11 00:00: 00 [facility] Hydronephr osis with urinary obstructio n due to renal calculus Hydronephr osis with urinary obstructio n due to renal calculus Disease Active 2022-11 00:00: 00 [facility] Flank pain Flank pain Disease Active 2022-11 00:00: 00 [facility] Allergic rhinitis Allergic rhinitis Disease Active - 00:00: 00 [facility] Nausea Nausea Disease Active 03-15 00:00: 00 [facility] Generalize d anxiety disorder Generalize d anxiety disorder Disease Active 2018-11 0- 00:00: 00 [facility] Major depressive disorder Major depressive disorder Disease Active 2018-11 0 00:00: 00 [facility] History of self-harm History of self-harm Disease Active 2018-11 0 00:00: 00 [facility] Bipolar 1 disorder Bipolar 1 disorder Disease Active 830 00:00: 00 [facility] Asthma Asthma Disease Active 2- 00:00: 00 [facility] Depressive disorder Depressive disorder Disease Active 0 1-31 00:00: 00 [facility] 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 Formattin g of this note might be different from the original. ONE episode. Normal lung biopsy. Treated with solumedro l monthly (3 days) x 5 months. Initially on plaquenil , stopped after 6-8 months. She's being observed off meds. [facility] Mild pre-eclamp dominik in third trimester Mild pre-eclamp dominik in third trimester Disease Resolve d 2020-1 1-01 00:00: 00 2021-09-27 00:00:00 2021-09-27 10:29:55 [facility] 39 weeks gestation of 39 weeks gestation of Disease Resolve d 2020-1 0-29 00:00: 00 2021-09-27 00:00:00 2021-09-27 10:29:55 [facility] Encounter for planned induction of labor Encounter for planned induction of labor Disease Resolve d 2020-1 0-29 00:00: 00 2021-09-27 00:00:00 2021-09-27 10:29:55 [facility] Low-lying placenta Low-lying placenta Disease Resolve d 2020-0 7-19 00:00: 00 2021-09-27 00:00:00 2021-09-27 20:21:44 [facility] High-risk in third trimester High-risk in third trimester Disease Resolve d 2020-0 4-07 00:00: 00 2021-09-27 00:00:00 2021-09-27 10:29:55 [facility] Rh negative state in antepartum period Rh negative state in antepartum period Disease Resolve d 2020-0 4-07 00:00: 00 2021-09-27 00:00:00 2021-09-27 20:21:45 [facility] Liveborn infant, of umaña , born in hospital by vaginal delivery Liveborn infant, of umaña , born in hospital by vaginal delivery Disease Resolve d 2019-0 3-23 00:00: 00 2021-09-27 00:00:00 2021-09-27 20:21:47 [facility] Family history of congenital heart defect Family history of congenital heart defect Disease Resolve d 2018- 8-30 00:00: 00 2021-09-27 00:00:00 2021-09-27 20:21:57 [facility] Vaginal discharge Vaginal discharge Disease Resolve d 2018- 2-31 00:00: 00 2021-01-15 00:00:00 2021-01-15 11:03:56 [facility] Need for prophylact ic vaccinatio n and inoculatio n against varicella Need for prophylact ic vaccinatio n and inoculatio n against varicella Disease Resolve d 2018- 0-14 00:00: 00 2021-01-15 00:00:00 2021-01-15 11:05:00 [facility] Need for vaccinatio n against rubella Need for vaccinatio n against rubella Disease Resolve d 2018- 0-14 00:00: 00 2021-01-15 00:00:00 2021-01-15 11:05:01 [facility] Normal labor Normal labor Disease Resolve d 2019-0 3-23 00:00: 00 2020-02-28 00:00:00 2020-02-28 09:13:37 [facility] Group B streptococ jose infection during Group B streptococ jose infection during Disease Resolve d 2019-0 3-23 00:00: 00 2020-02-28 00:00:00 2020-02-28 09:13:32 [facility] High-risk in third trimester High-risk in third trimester Disease Resolve d 2018-1 2-31 00:00: 00 2020-02-28 00:00:00 2020-02-28 09:13:35 [facility] 26 weeks gestation of 26 weeks gestation of Disease Resolve d 2018-11 00:00: 00 2019-12-08 00:00:00 2019-12-08 14:01:23 [facility] Allergies, Adverse Reactions, Alerts Allergy Name Allergy Type Status Severity Reaction(s) Onset Date Inactive Date Treating Clinician Comments Source No Known Drug Allergie s DA Active [facility] NO KNOWN ALLERGIE S Drug Class Active [facility] Social History Social Habit Start Date Stop Date Quantity Comments Source Gender identity [facility] Tobacco use and exposure 2024-04-30 00:00:00 2024-04-30 00:00:00 Smokeless tobacco non-user [facility] Alcoholic beverage intake 2024-04-30 00:00:00 2024-04-30 00:00:00 Current drinker of alcohol (finding) [facility] Alcohol intake 2024-02-06 00:00:00 2024-02-06 00:00:00 Current drinker of alcohol (finding) [facility] Alcohol Comment 2023-11-13 00:00:00 2023-11-13 00:00:00 occassionally [facility] History of Social function 2023-10-10 00:00:00 2023-10-10 00:00:00 [facility] Cigarettes smoked current (pack per day) - Reported 2023-10-09 00:00:00 2023-10-09 00:00:00 [facility] Tobacco Comment 2023-10-09 00:00:00 2023-10-09 00:00:00 1/2 PPD, and vaps [facility] Exposure to SARS-CoV-2 (event) 2023-02-08 00:00:00 2023-02-18 14:56:00 Not sure [facility] History of tobacco use 2019-07-05 00:00:00 Cigarette Smoker [facility] Sex assigned at 2001 00:00:00 2000 00:00:00 [facility] Smoking Status Start Date Stop Date Source Smokes tobacco daily 2024-04-30 00:00:00 [facility] Ex-smoker 2022-06-03 00:00:00 2022-06-03 [facility] Medications Ordered Medication Name Filled Medication Name Start Date Stop Date Current Medication? Ordering Clinician Indication Dosage Frequency Signature (SIG) Comments Components Source medroxyPROG ESTERone (DEPO-PROVE RA) syringe 150 mg 04-30 15:30: 00 04-30 14:38 :00 No [id number] 150mg 150 mg, Intramuscu lar, ONCE, 1 dose, On Fri04/30/24 at 1030, Routine [facility] medroxyPROG ESTERone (DEPO-PROVE RA) 150 mg/mL syringe 04-30 09:30: 56 Yes 150mg 1 mL by Intramuscu lar route every 3 (three) months. [facility] medroxyPROG ESTERone (DEPO-PROVE RA) 150 mg/mL syringe 04-14 16:04: 17 Yes 150mg 1 mL by Intramuscu lar route every 3 (three) months. [facility] ubrogepant (UBRELVY) 100 mg Tab 04-14 15:41: 00 04-14 00:00 :00 No Ubrelvy 100 mg tablet Take 1 tablet by oral route as needed. [facility] ibuprofen 600 mg tablet 04-14 15:40: 54 04-14 00:00 :00 No TAKE 1 TABLET BY MOUTH TWICE A DAY NEEDED [facility] diclofenac 75 mg EC tablet 04-14 15:40: 42 04-14 00:00 :00 No [facility] cyclobenzap rine 5 mg tablet 04-14 15:40: 32 04-14 00:00 :00 No 5mg Take 1 tablet by mouth 2 (two) times daily as needed. [facility] cetirizine 10 mg tablet 04-14 15:40: 26 04-14 00:00 :00 No 10mg Take 1 tablet by mouth in the morning. [facility] ALBUTEROL SULFATE HFA INHALE 04-14 15:40: 20 04-14 00:00 :00 No Inhale. [facility] acetaminoph en-codeine 300-30 mg tablet 04-14 15:40: 14 04-14 00:00 :00 No TAKE 1 TABLET BY MOUTH EVERY 8 HOURS NEEDED FOR ACUTE PAIN [facility] dexamethaso ne sod phos PF injection 10 mg 04-11 18:45: 00 04-11 17:46 :00 No 10mg 10 mg, Intramuscu lar, ONCE, 1 dose, On 04/11/24 at 1345, Routine [facility] medroxyPROG ESTERone (DEPO-PROVE RA) syringe 150 mg 02-05 15:00: 00 02-05 14:00 :00 No [id number] 150mg [facility] medroxyPROG ESTERone (DEPO-PROVE RA) syringe 150 mg 11-13 20:15: 00 11-13 19:30 :00 No [id number] [facility] AL[facility]ER[facility] SULFATE HFA INHALE 11-13 12:59: 22 Yes Inhale. [facility] FLUoxetine 40 mg capsule 11-13 12:58: 49 Yes 40mg Take 1 capsule by mouth every morning. [facility] ubrogepant (UBRELVY) 100 mg Tab 11-13 12:58: 49 Yes Ubrelvy 100 mg tablet Take 1 tablet by oral route as needed. [facility] acetaminoph en-codeine 300-30 mg tablet 11-13 12:58: 49 Yes TAKE 1 TABLET BY MOUTH EVERY 8 HOURS NEEDED FOR ACUTE PAIN [facility] ibuprofen 600 mg tablet 11-13 12:58: 49 Yes TAKE 1 TABLET BY MOUTH TWICE A DAY NEEDED [facility] diclofenac 75 mg EC tablet 11-13 12:58: 49 Yes [facility] cycl[facility]ine [facility] mg tablet 11-13 12:58: 49 Yes 5mg Take 1 tablet by mouth 2 (two) times daily as needed. [facility] cetirizine 10 mg tablet 11-13 12:58: 49 Yes 10mg Take 1 tablet by mouth in the morning. [facility] acetaminoph en (TYLENOL) tablet 650 mg 2022-11 19:30: 00 Yes 650mg 650 mg, Oral, Q6H ABX, First dose (after last modificati on) on Fri10/14/23 at 1330, Until Discontinu ed, Routine [facility] methocarbam oL (ROBAXIN) tablet 500 mg 2022-11 18:30: 00 Yes 500mg 500 mg, Oral, QID, First dose on Fri10/14/23 at 1230, Until Discontinu ed, Routine [facility] ketorolac (TORADOL) injection 15 mg 2022-11 18:22: 51 10-18 18:21 :51 No 15mg 15 mg, Slow IV Push, Q6HPRN, Starting on Fri10/14/23 at 1222, Until Fri10/18/23 at 1221, Routine, Pain (scale 4-6) [facility] HYDROcodone -acetaminop hen (NORCO 5) 5-325 mg tablet 1 tablet 2022-11 18:20: 10 10-16 02:45 :23 No 1{tbl} 1 tablet, Oral, Q6HPRN, Starting on Fri10/14/23 at 1220, Until Fri10/15/23 at 2045, Routine, Pain (scale 7-10) [facility] FLUoxetine (PROZAC) capsule 40 mg 2022-11 15:00: 00 Yes 40mg 40 mg, Oral, DAILY, First dose on Fri10/14/23 at 0900, Until Discontinu ed, Routine [facility] tamsulosin (FLOMAX) capsule 0.4 mg 2022-11 15:00: 00 Yes .4mg 0.4 mg, Oral, DAILY, First dose on Fri10/14/23 at 0900, Until Discontinu ed, Routine [facility] sennosides- docusate sodium (SENOKOT-S) 8.6-50 mg per tablet 1 tablet 2022-11 15:00: 00 Yes 1{tbl} 1 tablet, Oral, DAILY, First dose on Fri10/14/23 at 0900, Until Discontinu ed, Routine [facility] FLUoxetine 40 mg capsule 2022-11 14:44: 43 Yes 40mg Take 1 capsule by mouth every morning. [facility] ubrogepant (UBRELVY) 100 mg Tab 2022-11 14:44: 43 Yes Ubrelvy 100 mg tablet Take 1 tablet by oral route as needed. [facility] QUEtiapine (SEROQUEL) tablet 50 mg 2022-11 07:30: 00 Yes 50mg 50 mg, Oral, QHS, First dose on Fri10/14/23 at 0130, Until Discontinu ed, Routine [facility] albuterol (VENTOLIN) inhaler 2 Puff 2022-11 07:20: 25 Yes 2{puff} 2 Puff, Inhalation , Q4HPRN, Starting on Fri10/14/23 at 0120, Until Discontinu ed, Routine, Wheezing, Shortness of Breath [facility] cefTRIAXone (ROCEPHIN) 1,000 mg in NaCl 0.9% (NS) 100 mL MINI-BAG 2022-11 04:00: 00 10-19 03:59 :00 No 1000mg 1,000 mg, IV Piggyback, Q24H ABX, 5 doses, First dose on Fri10/13/23 at 2200, Last dose on Fri10/17/23 at 2200, Administer over 30 Minutes, 100 mL
Reas on for Anti-Infec tive: Empiric Therapy for Suspected Infection< br>Empiric Therapy Site: Urine
D uration of therapy: 5 days [facility] NaCl 0.9% (NS) IV infusion 1,000 mL 2022-11 03:00: 00 Yes 1000mL at 125 mL/hr, IV Infusion, CONTINUOUS , Starting on Fri10/13/23 at 2100, Until Discontinu ed, Routine [facility] HYDROcodone -acetaminop hen (NORCO 5) 5-325 mg tablet 1 tablet 2022-11 02:46: 23 10-14 18:20 :18 No 1{tbl} 1 tablet, Oral, Q6HPRN, Starting on Fri10/13/23 at 2046, Until Fri10/14/23 at 1220, Routine, Pain (scale 4-6) [facility] ondansetron (ZOFRAN (PF)) injection 4 mg 2022-11 02:44: 32 Yes 4mg 4 mg, Slow IV Push, Q6HPRN, Starting on Fri10/13/23 at 2044, Until Discontinu ed, Routine, Nausea and Vomiting (N/V) [facility] ketorolac (TORADOL) injection 15 mg 2022-11 02:26: 58 10-14 18:20 :08 No 15mg 15 mg, Slow IV Push, Q6HPRN, Starting on Fri10/13/23 at 2025, Until Fri10/14/23 at 1220, Routine, Pain (scale 7-10) [facility] methocarbam oL 500 mg tablet 2022-11 00:00: 00 04-14 00:00 :00 No [id number] 500mg Take 1 tablet by mouth 3 (three) times daily as needed for Pain (scale 4-6) or Pain (scale 7-10). [facility] sulfamethox azole-trime thoprim (BACTRIM DS) 800-160 mg per tablet 2022-11 00:00: 00 04-14 00:00 :00 No [id number] 1{tbl} Take 1 tablet by mouth in the morning and 1 tablet in the evening. [facility] tamsulosin (FLOMAX) 0.4 mg 24 hr capsule 2022-11 00:00: 00 04-14 00:00 :00 No [id number] .4mg Take 1 capsule by mouth in the morning. [facility] ketorolac 10 mg tablet 2022-11 00:00: 00 04-14 00:00 :00 No [id number] 10mg Take 1 tablet by mouth every 6 (six) hours as needed for Pain (scale 7-10). [facility] gabapentin 100 mg capsule 2022-11 00:00: 00 04-14 00:00 :00 No [id number] 200mg Take 2 capsules by mouth in the morning and 2 capsules in the evening. [facility] acetaminoph en-codeine 300-30 mg tablet 2022-11 00:00: 00 10-18 05:59 :00 No [id number] 1{tbl} Take 1 tablet by mouth every 6 (six) hours as needed for Pain (scale 7-10) for up to 3 days. Indication s: acute pain [facility] meperidine (DEMEROL) injection 12.5 mg 2022-11 00:24: 18 Yes 12.5mg 12.5 mg, Slow IV Push, PRN, 1 dose, Starting on Fri10/10/23 at 1824, Until Discontinu ed, Routine, Shivering, PACU
En ter indication for use: Reduce postoperat cheyenne shivering< br>human geography faculty member approving Restricted medication : ROSARIO HOFFMANN [facility] HYDROmorphO ne (DILAUDID) injection 0.2 mg 2022-11 00:24: 18 Yes .2mg 0.2 mg, Slow IV Push, Q5MIN PRN, 10 doses, Starting on Fri10/10/23 at 1824, Until Discontinu ed, Routine, Pain (scale 7-10), PACU
Us e approved by (Faculty): PACU USE -ANESTHESI A SERVICE-HY DROMORPHON E INJECTIONS [facility] FENTanyl PF (SUBLIMAZE (PF)) injection 25 mcg 2022-11 00:24: 18 Yes 25ug 25 mcg, Slow IV Push, Q5MIN PRN, 4 doses, Starting on Fri10/10/23 at 1824, Until Discontinu ed, Routine, Pain (scale 4-6), PACU [facility] lactated ringers IV infusion 1,000 mL 2022-11 20:00: 00 10-10 20:24 :00 No 1000mL at 42 mL/hr, 1,000 mL, IV Infusion, ONCE, 1 dose, On Fri10/10/23 at 1400, Routine, DSU Pre-op [facility] FLUoxetine 40 mg capsule 2022-11 19:08: 55 Yes 40mg Take 1 capsule by mouth every morning. [facility] ubrogepant (UBRELVY) 100 mg Tab 2022-11 19:08: 55 Yes Ubrelvy 100 mg tablet Take 1 tablet by oral route as needed. [facility] tamsulosin (FLOMAX) 0.4 mg 24 hr capsule 2022-11 00:00: 00 10-14 00:00 :00 No [id number] .4mg Take 1 capsule by mouth in the morning for 5 days. [facility] ketorolac 10 mg tablet 2022-11 00:00: 00 10-14 00:00 :00 No [id number] 10mg Take 1 tablet by mouth every 6 (six) hours as needed for Pain (scale 7-10) (Alternate with ibuprofen if taking concurrent ly). [facility] FLUoxetine 20 mg capsule 2022-11 08:06: 30 10-09 00:00 :00 No fluoxetine 20 mg capsule TAKE 1 CAPSULE BY MOUTH EVERY DAY [facility] escitalopra m oxalate 20 mg tablet 2022-11 10:50: 05 10-08 00:00 :00 No escitalopr am 20 mg tablet [facility] dicyclomine 20 mg tablet 2022-11 10:49: 59 10-08 00:00 :00 No dicyclomin e 20 mg tablet TAKE 1 TABLET BY MOUTH EVERY 6 HOURS NEEDED [facility] busPIRone 5 mg tablet 2022-11 10:49: 56 10-08 00:00 :00 No buspirone 5 mg tablet [facility] ARIPiprazol e 5 mg tablet 2022-11 10:49: 47 10-08 00:00 :00 No aripiprazo le 5 mg tablet [facility] albuterol 90 mcg/actuati on inhaler 2022-11 10:49: 40 10-08 00:00 :00 No 2{puff} Inhale 2 Puffs every 6 (six) hours as needed. [facility] albuterol 2.5 mg /3 mL (0.083 %) nebulizer solution 2022-11 10:49: 34 10-08 00:00 :00 No 2.5mg Inhale 3 mL every 4 (four) hours as needed. [facility] ondansetron 4 mg tablet 2022-11 08:44: 57 10-08 00:00 :00 No ondansetro n HCl 4 mg tablet TAKE 1 TABLET BY MOUTH EVERY 12 HOURS NEEDED [facility] chlorhexidi ne 0.12 % mouthwash 2022-11 08:43: 33 10-08 00:00 :00 No chlorhexid ine gluconate 0.12 % mouthwash USE TWICE DAILY [facility] diphenoxyla te-atropine 2.5-0.025 mg tablet 2022-11 08:43: 30 10-08 00:00 :00 No diphenoxyl ate-atropi ne 2.5 mg-0.025 mg tablet [facility] fluconazole 200 mg tablet 2022-11 08:43: 15 10-08 00:00 :00 No fluconazol e 200 mg tablet [facility] iron-FA-dha -epa-FAD-NA DH-be-mv (ENLYTE) 1.5 mg iron- 8.73 mg CpID 2022-11 08:42: 37 10-08 00:00 :00 No EnLyte 1.5 mg iron-8.73 mg capsule,im mediate - delay release [facility] lurasidone 20 mg tablet 2022-11 08:42: 34 10-08 00:00 :00 No Latuda 20 mg tablet [facility] ondansetron 4 mg disintegrat ing tablet 2022-11 08:41: 45 10-08 00:00 :00 No ondansetro n 4 mg disintegra ting tablet [facility] prazosin 1 mg capsule 2022-11 08:41: 33 10-08 00:00 :00 No prazosin 1 mg capsule [facility] predniSONE 20 mg tablet 2022-11 08:41: 18 10-08 00:00 :00 No prednisone 20 mg tablet [facility] Sodium Fluoride, Dental Gel, 1.1 % Crea 2022-11 08:41: 05 10-08 00:00 :00 No Denta 5000 Plus 1.1 % cream USE TWICE A DAY IN THE MORNING AND AT NIGHT. DO NOT EAT OR DRINK FOR AT LEAST 30 MINS [facility] SUMAtriptan 50 mg tablet 2022-11 08:41: 02 10-08 00:00 :00 No sumatripta n 50 mg tablet [facility] ondansetron 4 mg tablet 2022-11 00:00: 00 04-14 00:00 :00 No [id number] 4mg Take 1 tablet by mouth every 8 (eight) hours as needed for Nausea and Vomiting (N/V). [facility] tamsulosin 0.4 mg 24 hr capsule 2022-11 00:00: 00 10-14 00:00 :00 No [id number] .4mg Take 1 capsule by mouth in the morning. [facility] ketorolac (TORADOL) injection 15 mg 2022-11 05:45: 00 10-06 06:04 :00 No 15mg 15 mg, Slow IV Push, ONCE, 1 dose, On 10/05/23 at 2345, Routine [facility] HYDROcodone -acetaminop hen (NORCO 5) 5-325 mg tablet 1 tablet 2022-11 04:15: 00 10-06 04:06 :00 No 1{tbl} 1 tablet, Oral, ONCE, 1 dose, On 10/05/23 at 2215, SANTANA [facility] naproxen 500 mg EC tablet 2022-11 00:00: 00 10-14 00:00 :00 No [id number] 500mg Take 1 tablet by mouth as needed for Pain (scale 4-6). [facility] emtricitabi ne-tenofovi r, TDF, 200-300 mg tablet 2022-11 0-16 00:00: 00 04-14 00:00 :00 No 1{tbl} Take 1 tablet by mouth every 24 (twenty-fo ur) hours. [facility] medroxyPROG ESTERone (DEPO-PROVE RA) syringe 150 mg 2022-11 14:00: 00 08-15 13:03 :00 No [id number] 150mg [facility] medroxyPROG ESTERone (DEPO-PROVE RA) syringe 150 mg 05-14 21:30: 00 05-14 20:47 :00 No [id number] 150mg [facility] medroxyPROG ESTERone (DEPO-PROVE RA) syringe 150 mg 02-18 21:15: 00 02-18 20:22 :00 No [id number] 150mg [facility] albuterol 90 mcg/actuati on inhaler 02-18 15:20: 25 Yes 2{puff} Inhale 2 Puffs every 6 (six) hours as needed. [facility] albuterol 2.5 mg /3 mL (0.083 %) nebulizer solution 02-18 15:20: 25 Yes 2.5mg Inhale 3 mL every 4 (four) hours as needed. [facility] SUMAtriptan 50 mg tablet 02-18 15:20: 25 Yes sumatripta n 50 mg tablet [facility] medroxyPROG ESTERone (DEPO-PROVE RA) syringe 150 mg 11-18 22:00: 00 11-18 21:18 :00 No [id number] 150mg [facility] clindamycin 300 mg capsule 11-18 15:33: 50 11-18 00:00 :00 No clindamyci n HCl 300 mg capsule Take 1 capsule 3 times a day by oral route for 10 days. [facility] ciprofloxac in HCl 500 mg tablet 11-18 15:33: 47 11-18 00:00 :00 No ciprofloxa monica 500 mg tablet [facility] cephALEXin 500 mg capsule 11-18 15:33: 40 11-18 00:00 :00 No cephalexin 500 mg capsule [facility] azithromyci n 250 mg tablet 11-18 15:33: 37 11-18 00:00 :00 No azithromyc in 250 mg tablet TAKE BY MOUTH 2 TABLETS TODAY THEN 1 TABLE DAILY FOR NEXT 4 DAYS [facility] doxylamine- pyridoxine, vit B6, 10-10 mg per tablet 11-18 15:33: 25 11-18 00:00 :00 No Diclegis 10 mg-10 mg tablet,del ayed release TAKE 1 TABLET BY MOUTH THREE TIMES A DAY NEEDED AND 2 AT BEDTIME [facility] norgestimat e-ethinyl estradioL 0.25-35 mg-mcg per tablet 11-18 15:33: 12 11-18 00:00 :00 No Sprintec (28) 0.25 mg-35 mcg tablet TAKE 1 TABLET BY MOUTH EVERY DAY [facility] Nitrofurant oin&Nit. Macrocryst 100 mg capsule 11-18 15:33: 09 11-18 00:00 :00 No nitrofuran toin monohydrat e/macrocry stals 100 mg capsule [facility] vit,calc76/ iron/folic (PRENATABS RX ORAL) 11-18 15:33: 03 11-18 00:00 :00 No Prenatabs Rx 29 mg iron-1 mg tablet [facility] PNV38/iron, crb,g/folic /dss/dha (CITRANATAL ASSURE ORAL) 11-18 15:33: 02 11-18 00:00 :00 No CitraNatal Assure 35 mg iron-1 mg-50 mg-300 mg oral pack [facility] PNV 67-iron ps-folate no.1-dha (VITAFOL ULTRA) 29 mg iron- 1 mg-200 mg Cap 11-18 15:32: 56 11-18 00:00 :00 No Vitafol Ultra 29 mg iron-1 mg-200 mg capsule [facility] sulfamethox azole-trime thoprim 800-160 mg per tablet 11-18 15:32: 50 11-18 00:00 :00 No sulfametho xazole 800 mg-trimeth oprim 160 mg tablet [facility] predniSONE 20 mg tablet 11-18 14:55: 24 Yes prednisone 20 mg tablet [facility] prazosin 1 mg capsule 11-18 14:55: 24 Yes prazosin 1 mg capsule [facility] ondansetron 4 mg tablet 11-18 14:55: 24 Yes ondansetro n HCl 4 mg tablet TAKE 1 TABLET BY MOUTH EVERY 12 HOURS NEEDED [facility] ondansetron 4 mg disintegrat ing tablet 11-18 14:55: 24 Yes ondansetro n 4 mg disintegra ting tablet [facility] lurasidone 20 mg tablet 11-18 14:55: 24 Yes Latuda 20 mg tablet [facility] Sodium Fluoride, Dental Gel, 1.1 % Crea 11-18 14:55: 24 Yes Denta 5000 Plus 1.1 % cream USE TWICE A DAY IN THE MORNING AND AT NIGHT. DO NOT EAT OR DRINK FOR AT LEAST 30 MINS [facility] fluconazole 200 mg tablet 11-18 14:55: 24 Yes fluconazol e 200 mg tablet [facility] escitalopra m oxalate 20 mg tablet 11-18 14:55: 24 Yes escitalopr am 20 mg tablet [facility] diphenoxyla te-atropine 2.5-0.025 mg tablet 11-18 14:55: 24 Yes diphenoxyl ate-atropi ne 2.5 mg-0.025 mg tablet [facility] dicyclomine 20 mg tablet 11-18 14:55: 24 Yes dicyclomin e 20 mg tablet TAKE 1 TABLET BY MOUTH EVERY 6 HOURS NEEDED [facility] chlorhexidi ne 0.12 % mouthwash 11-18 14:55: 24 Yes chlorhexid ine gluconate 0.12 % mouthwash USE TWICE DAILY [facility] busPIRone 5 mg tablet 11-18 14:55: 24 Yes buspirone 5 mg tablet [facility] ARIPiprazol e 5 mg tablet 11-18 14:55: 24 Yes aripiprazo le 5 mg tablet [facility] iron-FA-dha -epa-FAD-NA DH-be-mv (ENLYTE) 1.5 mg iron- 8.73 mg CpID 11-18 14:55: 24 Yes EnLyte 1.5 mg iron-8.73 mg capsule,im mediate - delay release [facility] iron-FA-dha -epa-FAD-NA DH-be-mv (ENLYTE) 1.5 mg iron- 8.73 mg CpID 11-18 14:55: 24 Yes EnLyte 1.5 mg iron-8.73 mg capsule,im mediate - delay release [facility] miSOPROStoL 200 mcg tablet 11-18 00:00: 00 10-08 00:00 :00 No [id number] Take one tablet night before procedure, then take one tablet morning of procedure [facility] medroxyPROG ESTERone (DEPO-PROVE RA) syringe 150 mg 2021-11 21:15: 00 08-26 20:14 :00 No [id number] 150mg [facility] SUMAtriptan 50 mg tablet 07-03 15:26: 51 Yes sumatripta n 50 mg tablet [facility] sulfamethox azole-trime thoprim 800-160 mg per tablet 07-03 15:26: 51 Yes sulfametho xazole 800 mg-trimeth oprim 160 mg tablet [facility] predniSONE 20 mg tablet 07-03 15:26: 51 Yes prednisone 20 mg tablet [facility] prazosin 1 mg capsule 07-03 15:26: 51 Yes prazosin 1 mg capsule [facility] ondansetron 4 mg tablet 07-03 15:26: 51 Yes ondansetro n HCl 4 mg tablet TAKE 1 TABLET BY MOUTH EVERY 12 HOURS NEEDED [facility] ondansetron 4 mg disintegrat ing tablet 07-03 15:26: 51 Yes ondansetro n 4 mg disintegra ting tablet [facility] Nitrofurant oin&Nit. Macrocryst 100 mg capsule 07-03 15:26: 51 Yes nitrofuran toin monohydrat e/macrocry stals 100 mg capsule [facility] lurasidone 20 mg tablet 07-03 15:26: 51 Yes Latuda 20 mg tablet [facility] Sodium Fluoride, Dental Gel, 1.1 % Crea 07-03 15:26: 51 Yes Denta 5000 Plus 1.1 % cream USE TWICE A DAY IN THE MORNING AND AT NIGHT. DO NOT EAT OR DRINK FOR AT LEAST 30 MINS [facility] fluconazole 200 mg tablet 07-03 15:26: 51 Yes fluconazol e 200 mg tablet [facility] escitalopra m oxalate 20 mg tablet 07-03 15:26: 51 Yes escitalopr am 20 mg tablet [facility] doxylamine- pyridoxine, vit B6, 10-10 mg per tablet 07-03 15:26: 51 Yes Diclegis 10 mg-10 mg tablet,del ayed release TAKE 1 TABLET BY MOUTH THREE TIMES A DAY NEEDED AND 2 AT BEDTIME [facility] diphenoxyla te-atropine 2.5-0.025 mg tablet 07-03 15:26: 51 Yes diphenoxyl ate-atropi ne 2.5 mg-0.025 mg tablet [facility] dicyclomine 20 mg tablet 07-03 15:26: 51 Yes dicyclomin e 20 mg tablet TAKE 1 TABLET BY MOUTH EVERY 6 HOURS NEEDED [facility] clindamycin 300 mg capsule 07-03 15:26: 51 Yes clindamyci n HCl 300 mg capsule Take 1 capsule 3 times a day by oral route for 10 days. [facility] ciprofloxac in HCl 500 mg tablet 07-03 15:26: 51 Yes ciprofloxa monica 500 mg tablet [facility] chlorhexidi ne 0.12 % mouthwash 07-03 15:26: 51 Yes chlorhexid ine gluconate 0.12 % mouthwash USE TWICE DAILY [facility] cephALEXin 500 mg capsule 07-03 15:26: 51 Yes cephalexin 500 mg capsule [facility] busPIRone 5 mg tablet 07-03 15:26: 51 Yes buspirone 5 mg tablet [facility] azithromyci n 250 mg tablet 07-03 15:26: 51 Yes azithromyc in 250 mg tablet TAKE BY MOUTH 2 TABLETS TODAY THEN 1 TABLE DAILY FOR NEXT 4 DAYS [facility] ARIPiprazol e 5 mg tablet 07-03 15:26: 51 Yes aripiprazo le 5 mg tablet [facility] PNV 67-iron ps-folate no.1-dha (VITAFOL ULTRA) 29 mg iron- 1 mg-200 mg Cap 07-03 15:26: 51 Yes Vitafol Ultra 29 mg iron-1 mg-200 mg capsule [facility] norgestimat e-ethinyl estradioL 0.25-35 mg-mcg per tablet 07-03 15:26: 51 Yes Sprintec (28) 0.25 mg-35 mcg tablet TAKE 1 TABLET BY MOUTH EVERY DAY [facility] vit,calc76/ iron/folic (PRENATABS RX ORAL) 07-03 15:26: 51 Yes Prenatabs Rx 29 mg iron-1 mg tablet [facility] iron-FA-dha -epa-FAD-NA DH-be-mv (ENLYTE) 1.5 mg iron- 8.73 mg CpID 07-03 15:26: 51 Yes EnLyte 1.5 mg iron-8.73 mg capsule,im mediate - delay release [facility] QUEtiapine 100 mg tablet 03-05 00:00: 00 10-08 00:00 :00 No [facility] FLUoxetine 40 mg capsule 03-05 00:00: 00 10-08 00:00 :00 No [facility] cetirizine 10 mg tablet 02-25 00:00: 00 10-08 00:00 :00 No 10mg Take 10 mg by mouth daily. [facility] albuterol 90 mcg/actuati on inhaler 2020-11 16:22: 14 Yes 2{puff} Inhale 2 Puffs every 6 (six) hours as needed. [facility] albuterol 2.5 mg /3 mL (0.083 %) nebulizer solution 2020-11 16:22: 14 Yes 2.5mg Inhale 2.5 mg every 4 (four) hours as needed. [facility] FLUoxetine 20 mg capsule 2020-11 16:22: 14 Yes fluoxetine 20 mg capsule TAKE 1 CAPSULE BY MOUTH EVERY DAY [facility] docusate calcium 240 mg capsule 2020-11 00:00: 00 10-08 00:00 :00 No [id number] 240mg Take 1 capsule by mouth once daily as needed for Constipati on. [facility] ferrous sulfate 325 mg (65 mg iron) tablet 2020-11 00:00: 00 10-08 00:00 :00 No [id number] 325mg Take 1 tablet by mouth 2 (two) times daily. [facility] QUEtiapine 50 mg tablet 2018-11 00:00: 00 Yes 50mg Take 1 tablet by mouth in the morning. [facility] Immunizations Ordered Immunization Name Filled Immunization Name Date Status Comments Source Influenza Virus Vaccine Quad IM, Preserv and ABX Free 6 MO-64 YRS 2021-09-06 00:00:00 Completed [facility] Influenza Virus Vaccine Quad IM, Preserv and ABX Free 6 MO-64 YRS 2021-09-06 00:00:00 Completed [facility] Influenza Virus Vaccine Quad IM, Preserv and ABX Free 6 MO-64 YRS 2021-09-06 00:00:00 Completed [facility] Influenza Virus Vaccine Quad IM, Preserv and ABX Free 6 MO-64 YRS 2021-09-06 00:00:00 Completed [facility] Influenza Virus Vaccine Quad IM, Preserv and ABX Free 6 MO-64 YRS 2021-09-06 00:00:00 Completed [facility] Influenza Virus Vaccine Quad IM, Preserv and ABX Free 6 MO-64 YRS 2021-09-06 00:00:00 Completed [facility] Influenza Virus Vaccine Quad IM, Preserv and ABX Free 6 MO-64 YRS 2021-09-06 00:00:00 Completed [facility] Influenza Virus Vaccine Quad IM, Preserv and ABX Free 6 MO-64 YRS 2021-09-06 00:00:00 Completed [facility] Influenza Virus Vaccine Quad IM, Preserv and ABX Free 6 MO-64 YRS 2021-09-06 00:00:00 Completed [facility] Influenza Virus Vaccine Quad IM, Preserv and ABX Free 6 MO-64 YRS 2021-09-06 00:00:00 Completed [facility] Influenza Virus Vaccine Quad IM, Preserv and ABX Free 6 MO-64 YRS 2021-09-06 00:00:00 Completed [facility] Influenza Virus Vaccine Quad IM, Preserv and ABX Free 6 MO-64 YRS 2021-09-06 00:00:00 Completed [facility] Influenza Virus Vaccine Quad IM, Preserv and ABX Free 6 MO-64 YRS 2021-09-06 00:00:00 Completed [facility] Influenza Virus Vaccine Quad IM, Preserv and ABX Free 6 MO-64 YRS 2021-09-06 00:00:00 Completed [facility] Influenza Virus Vaccine Quad IM, Preserv and ABX Free 6 MO-64 YRS 2021-09-06 00:00:00 Completed [facility] Influenza Virus Vaccine Quad IM, Preserv and ABX Free 6 MO-64 YRS 2021-09-06 00:00:00 Completed [facility] Influenza Virus Vaccine Quad IM, Preserv and ABX Free 6 MO-64 YRS 2021-09-06 00:00:00 Completed [facility] TDAP 2021-07-17 00:00:00 Completed [facility] TDAP 2021-07-17 00:00:00 Completed [facility] TDAP 2021-07-17 00:00:00 Completed [facility] TDAP 2021-07-17 00:00:00 Completed [facility] TDAP 2021-07-17 00:00:00 Completed [facility] TDAP 2021-07-17 00:00:00 Completed [facility] TDAP 2021-07-17 00:00:00 Completed [facility] TDAP 2021-07-17 00:00:00 Completed [facility] TDAP 2021-07-17 00:00:00 Completed [facility] TDAP 2021-07-17 00:00:00 Completed [facility] TDAP 2021-07-17 00:00:00 Completed [facility] TDAP 2021-07-17 00:00:00 Completed [facility] TDAP 2021-07-17 00:00:00 Completed [facility] TDAP 2021-07-17 00:00:00 Completed [facility] TDAP 2021-07-17 00:00:00 Completed [facility] TDAP 2021-07-17 00:00:00 Completed [facility] TDAP 2021-07-17 00:00:00 Completed [facility] Rho (d) Immune Globulin 2021-05-29 00:00:00 Completed [facility] Rho (d) Immune Globulin 2021-05-29 00:00:00 Completed [facility] Rho (d) Immune Globulin 2021-05-29 00:00:00 Completed [facility] Rho (d) Immune Globulin 2021-05-29 00:00:00 Completed [facility] Rho (d) Immune Globulin 2021-05-29 00:00:00 Completed [facility] Rho (d) Immune Globulin 2021-05-29 00:00:00 Completed [facility] Rho (d) Immune Globulin 2021-05-29 00:00:00 Completed [facility] Rho (d) Immune Globulin 2021-05-29 00:00:00 Completed [facility] Rho (d) Immune Globulin 2021-05-29 00:00:00 Completed [facility] Rho (d) Immune Globulin 2021-05-29 00:00:00 Completed [facility] Rho (d) Immune Globulin 2021-05-29 00:00:00 Completed [facility] Rho (d) Immune Globulin 2021-05-29 00:00:00 Completed [facility] Rho (d) Immune Globulin 2021-05-29 00:00:00 Completed [facility] Rho (d) Immune Globulin 2021-05-29 00:00:00 Completed [facility] Rho (d) Immune Globulin 2021-05-29 00:00:00 Completed [facility] Rho (d) Immune Globulin 2021-05-29 00:00:00 Completed [facility] Rho (d) Immune Globulin 2021-05-29 00:00:00 Completed [facility] MMR 2020-02-01 00:00:00 Completed [facility] Rho (d) Immune Globulin 2020-02-01 00:00:00 Completed [facility] MMR 2020-02-01 00:00:00 Completed [facility] Rho (d) Immune Globulin 2020-02-01 00:00:00 Completed [facility] MMR 2020-02-01 00:00:00 Completed [facility] Rho (d) Immune Globulin 2020-02-01 00:00:00 Completed [facility] MMR 2020-02-01 00:00:00 Completed [facility] Rho (d) Immune Globulin 2020-02-01 00:00:00 Completed [facility] MMR 2020-02-01 00:00:00 Completed [facility] Rho (d) Immune Globulin 2020-02-01 00:00:00 Completed [facility] MMR 2020-02-01 00:00:00 Completed [facility] Rho (d) Immune Globulin 2020-02-01 00:00:00 Completed [facility] MMR 2020-02-01 00:00:00 Completed [facility] Rho (d) Immune Globulin 2020-02-01 00:00:00 Completed [facility] MMR 2020-02-01 00:00:00 Completed [facility] Rho (d) Immune Globulin 2020-02-01 00:00:00 Completed [facility] MMR 2020-02-01 00:00:00 Completed [facility] Rho (d) Immune Globulin 2020-02-01 00:00:00 Completed [facility] MMR 2020-02-01 00:00:00 Completed [facility] Rho (d) Immune Globulin 2020-02-01 00:00:00 Completed [facility] MMR 2020-02-01 00:00:00 Completed [facility] Rho (d) Immune Globulin 2020-02-01 00:00:00 Completed [facility] MMR 2020-02-01 00:00:00 Completed [facility] Rho (d) Immune Globulin 2020-02-01 00:00:00 Completed [facility] MMR 2020-02-01 00:00:00 Completed [facility] Rho (d) Immune Globulin 2020-02-01 00:00:00 Completed [facility] MMR 2020-02-01 00:00:00 Completed [facility] Rho (d) Immune Globulin 2020-02-01 00:00:00 Completed [facility] MMR 2020-02-01 00:00:00 Completed [facility] Rho (d) Immune Globulin 2020-02-01 00:00:00 Completed [facility] MMR 2020-02-01 00:00:00 Completed [facility] Rho (d) Immune Globulin 2020-02-01 00:00:00 Completed [facility] MMR 2020-02-01 00:00:00 Completed [facility] Rho (d) Immune Globulin 2020-02-01 00:00:00 Completed [facility] TDAP (ADACEL) VACCINE 2019-12-08 00:00:00 Completed [facility] TDAP (ADACEL) VACCINE 2019-12-08 00:00:00 Completed [facility] TDAP (ADACEL) VACCINE 2019-12-08 00:00:00 Completed [facility] TDAP (ADACEL) VACCINE 2019-12-08 00:00:00 Completed [facility] TDAP (ADACEL) VACCINE 2019-12-08 00:00:00 Completed [facility] TDAP (ADACEL) VACCINE 2019-12-08 00:00:00 Completed [facility] TDAP (ADACEL) VACCINE 2019-12-08 00:00:00 Completed [facility] TDAP (ADACEL) VACCINE 2019-12-08 00:00:00 Completed [facility] TDAP (ADACEL) VACCINE 2019-12-08 00:00:00 Completed [facility] TDAP (ADACEL) VACCINE 2019-12-08 00:00:00 Completed [facility] TDAP (ADACEL) VACCINE 2019-12-08 00:00:00 Completed [facility] TDAP (ADACEL) VACCINE 2019-12-08 00:00:00 Completed [facility] TDAP (ADACEL) VACCINE 2019-12-08 00:00:00 Completed [facility] TDAP (ADACEL) VACCINE 2019-12-08 00:00:00 Completed [facility] TDAP (ADACEL) VACCINE 2019-12-08 00:00:00 Completed [facility] TDAP (ADACEL) VACCINE 2019-12-08 00:00:00 Completed [facility] TDAP (ADACEL) VACCINE 2019-12-08 00:00:00 Completed [facility] Influenza Virus Vaccine Quad .5 mL IM 6+ MO 2019-08-18 00:00:00 Completed [facility] Influenza Virus Vaccine 2019-08-18 00:00:00 Completed [facility] Influenza Virus Vaccine Quad .5 mL IM 6+ MO 2019-08-18 00:00:00 Completed [facility] Influenza Virus Vaccine 2019-08-18 00:00:00 Completed [facility] Influenza Virus Vaccine Quad .5 mL IM 6+ MO 2019-08-18 00:00:00 Completed [facility] Influenza Virus Vaccine 2019-08-18 00:00:00 Completed [facility] Influenza Virus Vaccine Quad .5 mL IM 6+ MO 2019-08-18 00:00:00 Completed [facility] Influenza Virus Vaccine 2019-08-18 00:00:00 Completed [facility] Influenza Virus Vaccine Quad .5 mL IM 6+ MO 2019-08-18 00:00:00 Completed [facility] Influenza Virus Vaccine 2019-08-18 00:00:00 Completed [facility] Influenza Virus Vaccine Quad .5 mL IM 6+ MO 2019-08-18 00:00:00 Completed [facility] Influenza Virus Vaccine 2019-08-18 00:00:00 Completed [facility] Influenza Virus Vaccine Quad .5 mL IM 6+ MO 2019-08-18 00:00:00 Completed [facility] Influenza Virus Vaccine 2019-08-18 00:00:00 Completed [facility] Influenza Virus Vaccine Quad .5 mL IM 6+ MO 2019-08-18 00:00:00 Completed [facility] Influenza Virus Vaccine 2019-08-18 00:00:00 Completed [facility] Influenza Virus Vaccine Quad .5 mL IM 6+ MO 2019-08-18 00:00:00 Completed [facility] Influenza Virus Vaccine 2019-08-18 00:00:00 Completed [facility] Influenza Virus Vaccine Quad .5 mL IM 6+ MO 2019-08-18 00:00:00 Completed [facility] Influenza Virus Vaccine 2019-08-18 00:00:00 Completed [facility] Influenza Virus Vaccine Quad .5 mL IM 6+ MO 2019-08-18 00:00:00 Completed [facility] Influenza Virus Vaccine 2019-08-18 00:00:00 Completed [facility] Influenza Virus Vaccine Quad .5 mL IM 6+ MO 2019-08-18 00:00:00 Completed [facility] Influenza Virus Vaccine 2019-08-18 00:00:00 Completed [facility] Influenza Virus Vaccine Quad .5 mL IM 6+ MO 2019-08-18 00:00:00 Completed [facility] Influenza Virus Vaccine 2019-08-18 00:00:00 Completed [facility] Influenza Virus Vaccine Quad .5 mL IM 6+ MO 2019-08-18 00:00:00 Completed [facility] Influenza Virus Vaccine 2019-08-18 00:00:00 Completed [facility] Influenza Virus Vaccine Quad .5 mL IM 6+ MO 2019-08-18 00:00:00 Completed [facility] Influenza Virus Vaccine 2019-08-18 00:00:00 Completed [facility] Influenza Virus Vaccine Quad .5 mL IM 6+ MO 2019-08-18 00:00:00 Completed [facility] Influenza Virus Vaccine 2019-08-18 00:00:00 Completed [facility] Influenza Virus Vaccine Quad .5 mL IM 6+ MO 2019-08-18 00:00:00 Completed [facility] Influenza Virus Vaccine 2019-08-18 00:00:00 Completed [facility] Rho (d) Immune Globulin 2019-07-27 00:00:00 Completed [facility] Rho (d) Immune Globulin 2019-07-27 00:00:00 Completed [facility] Rho (d) Immune Globulin 2019-07-27 00:00:00 Completed [facility] Rho (d) Immune Globulin 2019-07-27 00:00:00 Completed [facility] Rho (d) Immune Globulin 2019-07-27 00:00:00 Completed [facility] Rho (d) Immune Globulin 2019-07-27 00:00:00 Completed [facility] Rho (d) Immune Globulin 2019-07-27 00:00:00 Completed [facility] Rho (d) Immune Globulin 2019-07-27 00:00:00 Completed [facility] Rho (d) Immune Globulin 2019-07-27 00:00:00 Completed [facility] Rho (d) Immune Globulin 2019-07-27 00:00:00 Completed [facility] Rho (d) Immune Globulin 2019-07-27 00:00:00 Completed [facility] Rho (d) Immune Globulin 2019-07-27 00:00:00 Completed [facility] Rho (d) Immune Globulin 2019-07-27 00:00:00 Completed [facility] Rho (d) Immune Globulin 2019-07-27 00:00:00 Completed [facility] Rho (d) Immune Globulin 2019-07-27 00:00:00 Completed [facility] Rho (d) Immune Globulin 2019-07-27 00:00:00 Completed [facility] Rho (d) Immune Globulin 2019-07-27 00:00:00 Completed [facility] Influenza Virus Vaccine Quad IM 3+ YRS 2018-09-10 00:00:00 Completed [facility] Influenza Virus Vaccine Quad IM 3+ YRS 2018-09-10 00:00:00 Completed [facility] Influenza Virus Vaccine Quad IM 3+ YRS 2018-09-10 00:00:00 Completed [facility] Influenza Virus Vaccine Quad IM 3+ YRS 2018-09-10 00:00:00 Completed [facility] Influenza Virus Vaccine Quad IM 3+ YRS 2018-09-10 00:00:00 Completed [facility] Influenza Virus Vaccine Quad IM 3+ YRS 2018-09-10 00:00:00 Completed [facility] Influenza Virus Vaccine Quad IM 3+ YRS 2018-09-10 00:00:00 Completed [facility] Influenza Virus Vaccine Quad IM 3+ YRS 2018-09-10 00:00:00 Completed [facility] Influenza Virus Vaccine Quad IM 3+ YRS 2018-09-10 00:00:00 Completed [facility] Influenza Virus Vaccine Quad IM 3+ YRS 2018-09-10 00:00:00 Completed [facility] Influenza Virus Vaccine Quad IM 3+ YRS 2018-09-10 00:00:00 Completed [facility] Influenza Virus Vaccine Quad IM 3+ YRS 2018-09-10 00:00:00 Completed [facility] Influenza Virus Vaccine Quad IM 3+ YRS 2018-09-10 00:00:00 Completed [facility] Influenza Virus Vaccine Quad IM 3+ YRS 2018-09-10 00:00:00 Completed [facility] Influenza Virus Vaccine Quad IM 3+ YRS 2018-09-10 00:00:00 Completed [facility] Influenza Virus Vaccine Quad IM 3+ YRS 2018-09-10 00:00:00 Completed [facility] Influenza Virus Vaccine Quad IM 3+ YRS 2018-09-10 00:00:00 Completed [facility] Influenza Virus Vaccine Quad IM 3+ YRS 2017-09-12 00:00:00 Completed [facility] Influenza Virus Vaccine Quad IM 3+ YRS 2017-09-12 00:00:00 Completed [facility] Influenza Virus Vaccine Quad IM 3+ YRS 2017-09-12 00:00:00 Completed [facility] Influenza Virus Vaccine Quad IM 3+ YRS 2017-09-12 00:00:00 Completed [facility] Influenza Virus Vaccine Quad IM 3+ YRS 2017-09-12 00:00:00 Completed [facility] Influenza Virus Vaccine Quad IM 3+ YRS 2017-09-12 00:00:00 Completed [facility] Influenza Virus Vaccine Quad IM 3+ YRS 2017-09-12 00:00:00 Completed [facility] Influenza Virus Vaccine Quad IM 3+ YRS 2017-09-12 00:00:00 Completed [facility] Influenza Virus Vaccine Quad IM 3+ YRS 2017-09-12 00:00:00 Completed [facility] Influenza Virus Vaccine Quad IM 3+ YRS 2017-09-12 00:00:00 Completed [facility] Influenza Virus Vaccine Quad IM 3+ YRS 2017-09-12 00:00:00 Completed [facility] Influenza Virus Vaccine Quad IM 3+ YRS 2017-09-12 00:00:00 Completed [facility] Influenza Virus Vaccine Quad IM 3+ YRS 2017-09-12 00:00:00 Completed [facility] Influenza Virus Vaccine Quad IM 3+ YRS 2017-09-12 00:00:00 Completed [facility] Influenza Virus Vaccine Quad IM 3+ YRS 2017-09-12 00:00:00 Completed [facility] Influenza Virus Vaccine Quad IM 3+ YRS 2017-09-12 00:00:00 Completed [facility] Influenza Virus Vaccine Quad IM 3+ YRS 2017-09-12 00:00:00 Completed [facility] Influenza Virus Vaccine Nasal 2015-10-13 00:00:00 Completed [facility] Influenza Virus Vaccine Nasal 2015-10-13 00:00:00 Completed [facility] Influenza Virus Vaccine Nasal 2015-10-13 00:00:00 Completed [facility] Influenza Virus Vaccine Nasal 2015-10-13 00:00:00 Completed [facility] Influenza Virus Vaccine Nasal 2015-10-13 00:00:00 Completed [facility] Influenza Virus Vaccine Nasal 2015-10-13 00:00:00 Completed [facility] Influenza Virus Vaccine Nasal 2015-10-13 00:00:00 Completed [facility] Influenza Virus Vaccine Nasal 2015-10-13 00:00:00 Completed [facility] Influenza Virus Vaccine Nasal 2015-10-13 00:00:00 Completed [facility] Influenza Virus Vaccine Nasal 2015-10-13 00:00:00 Completed [facility] Influenza Virus Vaccine Nasal 2015-10-13 00:00:00 Completed [facility] Influenza Virus Vaccine Nasal 2015-10-13 00:00:00 Completed [facility] Influenza Virus Vaccine Nasal 2015-10-13 00:00:00 Completed [facility] Influenza Virus Vaccine Nasal 2015-10-13 00:00:00 Completed [facility] Influenza Virus Vaccine Nasal 2015-10-13 00:00:00 Completed [facility] Influenza Virus Vaccine Nasal 2015-10-13 00:00:00 Completed [facility] Influenza Virus Vaccine Nasal 2015-10-13 00:00:00 Completed [facility] Influenza Virus Vaccine 2014-09-02 00:00:00 Completed [facility] Influenza Virus Vaccine 2014-09-02 00:00:00 Completed [facility] Influenza Virus Vaccine 2014-09-02 00:00:00 Completed [facility] Influenza Virus Vaccine 2014-09-02 00:00:00 Completed [facility] Influenza Virus Vaccine 2014-09-02 00:00:00 Completed [facility] Influenza Virus Vaccine 2014-09-02 00:00:00 Completed [facility] Influenza Virus Vaccine 2014-09-02 00:00:00 Completed [facility] Influenza Virus Vaccine 2014-09-02 00:00:00 Completed [facility] Influenza Virus Vaccine 2014-09-02 00:00:00 Completed [facility] Influenza Virus Vaccine 2014-09-02 00:00:00 Completed [facility] Influenza Virus Vaccine 2014-09-02 00:00:00 Completed [facility] Influenza Virus Vaccine 2014-09-02 00:00:00 Completed [facility] Influenza Virus Vaccine 2014-09-02 00:00:00 Completed [facility] Influenza Virus Vaccine 2014-09-02 00:00:00 Completed [facility] Influenza Virus Vaccine 2014-09-02 00:00:00 Completed [facility] Influenza Virus Vaccine 2014-09-02 00:00:00 Completed [facility] Influenza Virus Vaccine 2014-09-02 00:00:00 Completed [facility] HPV 2014-01-18 00:00:00 Completed [facility] Meningococcal Vaccine 2014-01-18 00:00:00 Completed [facility] Varicella (varivax)(chicken pox) 2014-01-18 00:00:00 Completed [facility] TDAP 2014-01-18 00:00:00 Completed [facility] Meningococcal Polysaccharide (groups A, C, Y and W-135) conjugate vaccine (MCV4P) 2014-01-18 00:00:00 Completed [facility] HPV 2014-01-18 00:00:00 Completed [facility] Meningococcal Vaccine 2014-01-18 00:00:00 Completed [facility] Varicella (varivax)(chicken pox) 2014-01-18 00:00:00 Completed [facility] TDAP 2014-01-18 00:00:00 Completed [facility] Meningococcal Polysaccharide (groups A, C, Y and W-135) conjugate vaccine (MCV4P) 2014-01-18 00:00:00 Completed [facility] HPV 2014-01-18 00:00:00 Completed [facility] Meningococcal Vaccine 2014-01-18 00:00:00 Completed [facility] Varicella (varivax)(chicken pox) 2014-01-18 00:00:00 Completed [facility] TDAP 2014-01-18 00:00:00 Completed [facility] Meningococcal Polysaccharide (groups A, C, Y and W-135) conjugate vaccine (MCV4P) 2014-01-18 00:00:00 Completed [facility] HPV 2014-01-18 00:00:00 Completed [facility] Meningococcal Vaccine 2014-01-18 00:00:00 Completed [facility] Varicella (varivax)(chicken pox) 2014-01-18 00:00:00 Completed [facility] TDAP 2014-01-18 00:00:00 Completed [facility] Meningococcal Polysaccharide (groups A, C, Y and W-135) conjugate vaccine (MCV4P) 2014-01-18 00:00:00 Completed [facility] HPV 2014-01-18 00:00:00 Completed [facility] Meningococcal Vaccine 2014-01-18 00:00:00 Completed [facility] Varicella (varivax)(chicken pox) 2014-01-18 00:00:00 Completed [facility] TDAP 2014-01-18 00:00:00 Completed [facility] Meningococcal Polysaccharide (groups A, C, Y and W-135) conjugate vaccine (MCV4P) 2014-01-18 00:00:00 Completed [facility] HPV 2014-01-18 00:00:00 Completed [facility] Meningococcal Vaccine 2014-01-18 00:00:00 Completed [facility] Varicella (varivax)(chicken pox) 2014-01-18 00:00:00 Completed [facility] TDAP 2014-01-18 00:00:00 Completed [facility] Meningococcal Polysaccharide (groups A, C, Y and W-135) conjugate vaccine (MCV4P) 2014-01-18 00:00:00 Completed [facility] HPV 2014-01-18 00:00:00 Completed [facility] Meningococcal Vaccine 2014-01-18 00:00:00 Completed [facility] Varicella (varivax)(chicken pox) 2014-01-18 00:00:00 Completed [facility] TDAP 2014-01-18 00:00:00 Completed [facility] Meningococcal Polysaccharide (groups A, C, Y and W-135) conjugate vaccine (MCV4P) 2014-01-18 00:00:00 Completed [facility] HPV 2014-01-18 00:00:00 Completed [facility] Meningococcal Vaccine 2014-01-18 00:00:00 Completed [facility] Varicella (varivax)(chicken pox) 2014-01-18 00:00:00 Completed [facility] TDAP 2014-01-18 00:00:00 Completed [facility] Meningococcal Polysaccharide (groups A, C, Y and W-135) conjugate vaccine (MCV4P) 2014-01-18 00:00:00 Completed [facility] HPV 2014-01-18 00:00:00 Completed [facility] Meningococcal Vaccine 2014-01-18 00:00:00 Completed [facility] Varicella (varivax)(chicken pox) 2014-01-18 00:00:00 Completed [facility] TDAP 2014-01-18 00:00:00 Completed [facility] Meningococcal Polysaccharide (groups A, C, Y and W-135) conjugate vaccine (MCV4P) 2014-01-18 00:00:00 Completed [facility] HPV 2014-01-18 00:00:00 Completed [facility] Meningococcal Vaccine 2014-01-18 00:00:00 Completed [facility] Varicella (varivax)(chicken pox) 2014-01-18 00:00:00 Completed [facility] TDAP 2014-01-18 00:00:00 Completed [facility] Meningococcal Polysaccharide (groups A, C, Y and W-135) conjugate vaccine (MCV4P) 2014-01-18 00:00:00 Completed [facility] HPV 2014-01-18 00:00:00 Completed [facility] Meningococcal Vaccine 2014-01-18 00:00:00 Completed [facility] Varicella (varivax)(chicken pox) 2014-01-18 00:00:00 Completed [facility] TDAP 2014-01-18 00:00:00 Completed [facility] Meningococcal Polysaccharide (groups A, C, Y and W-135) conjugate vaccine (MCV4P) 2014-01-18 00:00:00 Completed [facility] HPV 2014-01-18 00:00:00 Completed [facility] Meningococcal Vaccine 2014-01-18 00:00:00 Completed [facility] Varicella (varivax)(chicken pox) 2014-01-18 00:00:00 Completed [facility] TDAP 2014-01-18 00:00:00 Completed [facility] Meningococcal Polysaccharide (groups A, C, Y and W-135) conjugate vaccine (MCV4P) 2014-01-18 00:00:00 Completed [facility] HPV 2014-01-18 00:00:00 Completed [facility] Meningococcal Vaccine 2014-01-18 00:00:00 Completed [facility] Varicella (varivax)(chicken pox) 2014-01-18 00:00:00 Completed [facility] TDAP 2014-01-18 00:00:00 Completed [facility] Meningococcal Polysaccharide (groups A, C, Y and W-135) conjugate vaccine (MCV4P) 2014-01-18 00:00:00 Completed [facility] HPV 2014-01-18 00:00:00 Completed [facility] Meningococcal Vaccine 2014-01-18 00:00:00 Completed [facility] Varicella (varivax)(chicken pox) 2014-01-18 00:00:00 Completed [facility] TDAP 2014-01-18 00:00:00 Completed [facility] Meningococcal Polysaccharide (groups A, C, Y and W-135) conjugate vaccine (MCV4P) 2014-01-18 00:00:00 Completed [facility] HPV 2014-01-18 00:00:00 Completed [facility] Meningococcal Vaccine 2014-01-18 00:00:00 Completed [facility] Varicella (varivax)(chicken pox) 2014-01-18 00:00:00 Completed [facility] TDAP 2014-01-18 00:00:00 Completed [facility] Meningococcal Polysaccharide (groups A, C, Y and W-135) conjugate vaccine (MCV4P) 2014-01-18 00:00:00 Completed [facility] HPV 2014-01-18 00:00:00 Completed [facility] Meningococcal Vaccine 2014-01-18 00:00:00 Completed [facility] Varicella (varivax)(chicken pox) 2014-01-18 00:00:00 Completed [facility] TDAP 2014-01-18 00:00:00 Completed [facility] Meningococcal Polysaccharide (groups A, C, Y and W-135) conjugate vaccine (MCV4P) 2014-01-18 00:00:00 Completed [facility] HPV 2014-01-18 00:00:00 Completed [facility] Meningococcal Vaccine 2014-01-18 00:00:00 Completed [facility] Varicella (varivax)(chicken pox) 2014-01-18 00:00:00 Completed [facility] TDAP 2014-01-18 00:00:00 Completed [facility] Meningococcal Polysaccharide (groups A, C, Y and W-135) conjugate vaccine (MCV4P) 2014-01-18 00:00:00 Completed [facility] Influenza Virus Vaccine 2013-09-23 00:00:00 Completed [facility] Influenza Virus Vaccine 2013-09-23 00:00:00 Completed [facility] Influenza Virus Vaccine 2013-09-23 00:00:00 Completed [facility] Influenza Virus Vaccine 2013-09-23 00:00:00 Completed [facility] Influenza Virus Vaccine 2013-09-23 00:00:00 Completed [facility] Influenza Virus Vaccine 2013-09-23 00:00:00 Completed [facility] Influenza Virus Vaccine 2013-09-23 00:00:00 Completed [facility] Influenza Virus Vaccine 2013-09-23 00:00:00 Completed [facility] Influenza Virus Vaccine 2013-09-23 00:00:00 Completed [facility] Influenza Virus Vaccine 2013-09-23 00:00:00 Completed [facility] Influenza Virus Vaccine 2013-09-23 00:00:00 Completed [facility] Influenza Virus Vaccine 2013-09-23 00:00:00 Completed [facility] Influenza Virus Vaccine 2013-09-23 00:00:00 Completed [facility] Influenza Virus Vaccine 2013-09-23 00:00:00 Completed [facility] Influenza Virus Vaccine 2013-09-23 00:00:00 Completed [facility] Influenza Virus Vaccine 2013-09-23 00:00:00 Completed [facility] Influenza Virus Vaccine 2013-09-23 00:00:00 Completed [facility] Influenza Virus Vaccine 2012-11-24 00:00:00 Completed [facility] Influenza Virus Vaccine 2012-11-24 00:00:00 Completed [facility] Influenza Virus Vaccine 2012-11-24 00:00:00 Completed [facility] Influenza Virus Vaccine 2012-11-24 00:00:00 Completed [facility] Influenza Virus Vaccine 2012-11-24 00:00:00 Completed [facility] Influenza Virus Vaccine 2012-11-24 00:00:00 Completed [facility] Influenza Virus Vaccine 2012-11-24 00:00:00 Completed [facility] Influenza Virus Vaccine 2012-11-24 00:00:00 Completed [facility] Influenza Virus Vaccine 2012-11-24 00:00:00 Completed [facility] Influenza Virus Vaccine 2012-11-24 00:00:00 Completed [facility] Influenza Virus Vaccine 2012-11-24 00:00:00 Completed [facility] Influenza Virus Vaccine 2012-11-24 00:00:00 Completed [facility] Influenza Virus Vaccine 2012-11-24 00:00:00 Completed [facility] Influenza Virus Vaccine 2012-11-24 00:00:00 Completed [facility] Influenza Virus Vaccine 2012-11-24 00:00:00 Completed [facility] Influenza Virus Vaccine 2012-11-24 00:00:00 Completed [facility] Influenza Virus Vaccine 2012-11-24 00:00:00 Completed [facility] Influenza Virus Vaccine Nasal 2011-08-23 00:00:00 Completed [facility] Influenza Virus Vaccine Nasal 2011-08-23 00:00:00 Completed [facility] Influenza Virus Vaccine Nasal 2011-08-23 00:00:00 Completed [facility] Influenza Virus Vaccine Nasal 2011-08-23 00:00:00 Completed [facility] Influenza Virus Vaccine Nasal 2011-08-23 00:00:00 Completed [facility] Influenza Virus Vaccine Nasal 2011-08-23 00:00:00 Completed [facility] Influenza Virus Vaccine Nasal 2011-08-23 00:00:00 Completed [facility] Influenza Virus Vaccine Nasal 2011-08-23 00:00:00 Completed [facility] Influenza Virus Vaccine Nasal 2011-08-23 00:00:00 Completed [facility] Influenza Virus Vaccine Nasal 2011-08-23 00:00:00 Completed [facility] Influenza Virus Vaccine Nasal 2011-08-23 00:00:00 Completed [facility] Influenza Virus Vaccine Nasal 2011-08-23 00:00:00 Completed [facility] Influenza Virus Vaccine Nasal 2011-08-23 00:00:00 Completed [facility] Influenza Virus Vaccine Nasal 2011-08-23 00:00:00 Completed [facility] Influenza Virus Vaccine Nasal 2011-08-23 00:00:00 Completed [facility] Influenza Virus Vaccine Nasal 2011-08-23 00:00:00 Completed [facility] Influenza Virus Vaccine Nasal 2011-08-23 00:00:00 Completed [facility] HPV 2011-07-04 00:00:00 Completed [facility] HPV 2011-07-04 00:00:00 Completed [facility] HPV 2011-07-04 00:00:00 Completed [facility] HPV 2011-07-04 00:00:00 Completed [facility] HPV 2011-07-04 00:00:00 Completed [facility] HPV 2011-07-04 00:00:00 Completed [facility] HPV 2011-07-04 00:00:00 Completed [facility] HPV 2011-07-04 00:00:00 Completed [facility] HPV 2011-07-04 00:00:00 Completed [facility] HPV 2011-07-04 00:00:00 Completed [facility] HPV 2011-07-04 00:00:00 Completed [facility] HPV 2011-07-04 00:00:00 Completed [facility] HPV 2011-07-04 00:00:00 Completed [facility] HPV 2011-07-04 00:00:00 Completed [facility] HPV 2011-07-04 00:00:00 Completed [facility] HPV 2011-07-04 00:00:00 Completed [facility] HPV 2011-07-04 00:00:00 Completed [facility] Influenza Virus Vaccine 2010-09-06 00:00:00 Completed [facility] Influenza Virus Vaccine 2010-09-06 00:00:00 Completed [facility] Influenza Virus Vaccine 2010-09-06 00:00:00 Completed [facility] Influenza Virus Vaccine 2010-09-06 00:00:00 Completed [facility] Influenza Virus Vaccine 2010-09-06 00:00:00 Completed [facility] Influenza Virus Vaccine 2010-09-06 00:00:00 Completed [facility] Influenza Virus Vaccine 2010-09-06 00:00:00 Completed [facility] Influenza Virus Vaccine 2010-09-06 00:00:00 Completed [facility] Influenza Virus Vaccine 2010-09-06 00:00:00 Completed [facility] Influenza Virus Vaccine 2010-09-06 00:00:00 Completed [facility] Influenza Virus Vaccine 2010-09-06 00:00:00 Completed [facility] Influenza Virus Vaccine 2010-09-06 00:00:00 Completed [facility] Influenza Virus Vaccine 2010-09-06 00:00:00 Completed [facility] Influenza Virus Vaccine 2010-09-06 00:00:00 Completed [facility] Influenza Virus Vaccine 2010-09-06 00:00:00 Completed [facility] Influenza Virus Vaccine 2010-09-06 00:00:00 Completed [facility] Influenza Virus Vaccine 2010-09-06 00:00:00 Completed [facility] HEPATITIS A 2006-12-16 00:00:00 Completed [facility] HEPATITIS A 2006-12-16 00:00:00 Completed [facility] HEPATITIS A 2006-12-16 00:00:00 Completed [facility] HEPATITIS A 2006-12-16 00:00:00 Completed [facility] HEPATITIS A 2006-12-16 00:00:00 Completed [facility] HEPATITIS A 2006-12-16 00:00:00 Completed [facility] HEPATITIS A 2006-12-16 00:00:00 Completed [facility] HEPATITIS A 2006-12-16 00:00:00 Completed [facility] HEPATITIS A 2006-12-16 00:00:00 Completed [facility] HEPATITIS A 2006-12-16 00:00:00 Completed [facility] HEPATITIS A 2006-12-16 00:00:00 Completed [facility] HEPATITIS A 2006-12-16 00:00:00 Completed [facility] HEPATITIS A 2006-12-16 00:00:00 Completed [facility] HEPATITIS A 2006-12-16 00:00:00 Completed [facility] HEPATITIS A 2006-12-16 00:00:00 Completed [facility] HEPATITIS A 2006-12-16 00:00:00 Completed [facility] HEPATITIS A 2006-12-16 00:00:00 Completed [facility] HEPATITIS A 2005-10-11 00:00:00 Completed [facility] HEPATITIS A 2005-10-11 00:00:00 Completed [facility] HEPATITIS A 2005-10-11 00:00:00 Completed [facility] HEPATITIS A 2005-10-11 00:00:00 Completed [facility] HEPATITIS A 2005-10-11 00:00:00 Completed [facility] HEPATITIS A 2005-10-11 00:00:00 Completed [facility] HEPATITIS A 2005-10-11 00:00:00 Completed [facility] HEPATITIS A 2005-10-11 00:00:00 Completed [facility] HEPATITIS A 2005-10-11 00:00:00 Completed [facility] HEPATITIS A 2005-10-11 00:00:00 Completed [facility] HEPATITIS A 2005-10-11 00:00:00 Completed [facility] HEPATITIS A 2005-10-11 00:00:00 Completed [facility] HEPATITIS A 2005-10-11 00:00:00 Completed [facility] HEPATITIS A 2005-10-11 00:00:00 Completed [facility] HEPATITIS A 2005-10-11 00:00:00 Completed [facility] HEPATITIS A 2005-10-11 00:00:00 Completed [facility] HEPATITIS A 2005-10-11 00:00:00 Completed [facility] Influenza Virus Vaccine 2003-09-06 00:00:00 Completed [facility] Influenza Virus Vaccine 2003-09-06 00:00:00 Completed [facility] Influenza Virus Vaccine 2003-09-06 00:00:00 Completed [facility] Influenza Virus Vaccine 2003-09-06 00:00:00 Completed [facility] Influenza Virus Vaccine 2003-09-06 00:00:00 Completed [facility] Influenza Virus Vaccine 2003-09-06 00:00:00 Completed [facility] Influenza Virus Vaccine 2003-09-06 00:00:00 Completed [facility] Influenza Virus Vaccine 2003-09-06 00:00:00 Completed [facility] Influenza Virus Vaccine 2003-09-06 00:00:00 Completed [facility] Influenza Virus Vaccine 2003-09-06 00:00:00 Completed [facility] Influenza Virus Vaccine 2003-09-06 00:00:00 Completed [facility] Influenza Virus Vaccine 2003-09-06 00:00:00 Completed [facility] Influenza Virus Vaccine 2003-09-06 00:00:00 Completed [facility] Influenza Virus Vaccine 2003-09-06 00:00:00 Completed [facility] Influenza Virus Vaccine 2003-09-06 00:00:00 Completed [facility] Influenza Virus Vaccine 2003-09-06 00:00:00 Completed [facility] Influenza Virus Vaccine 2003-09-06 00:00:00 Completed [facility] DTAP 2003-02-08 00:00:00 Completed [facility] HIB 4 Dose Schedule 2003-02-08 00:00:00 Completed [facility] TDAP 2003-02-08 00:00:00 Completed [facility] Heamophilus Influenza B 2003-02-08 00:00:00 Completed [facility] DTAP 2003-02-08 00:00:00 Completed [facility] HIB 4 Dose Schedule 2003-02-08 00:00:00 Completed [facility] TDAP 2003-02-08 00:00:00 Completed [facility] Heamophilus Influenza B 2003-02-08 00:00:00 Completed [facility] DTAP 2003-02-08 00:00:00 Completed [facility] HIB 4 Dose Schedule 2003-02-08 00:00:00 Completed [facility] TDAP 2003-02-08 00:00:00 Completed [facility] Heamophilus Influenza B 2003-02-08 00:00:00 Completed [facility] DTAP 2003-02-08 00:00:00 Completed [facility] HIB 4 Dose Schedule 2003-02-08 00:00:00 Completed [facility] TDAP 2003-02-08 00:00:00 Completed [facility] Heamophilus Influenza B 2003-02-08 00:00:00 Completed [facility] DTAP 2003-02-08 00:00:00 Completed [facility] HIB 4 Dose Schedule 2003-02-08 00:00:00 Completed [facility] TDAP 2003-02-08 00:00:00 Completed [facility] Heamophilus Influenza B 2003-02-08 00:00:00 Completed [facility] DTAP 2003-02-08 00:00:00 Completed [facility] HIB 4 Dose Schedule 2003-02-08 00:00:00 Completed [facility] TDAP 2003-02-08 00:00:00 Completed [facility] Heamophilus Influenza B 2003-02-08 00:00:00 Completed [facility] DTAP 2003-02-08 00:00:00 Completed [facility] HIB 4 Dose Schedule 2003-02-08 00:00:00 Completed [facility] TDAP 2003-02-08 00:00:00 Completed [facility] Heamophilus Influenza B 2003-02-08 00:00:00 Completed [facility] DTAP 2003-02-08 00:00:00 Completed [facility] HIB 4 Dose Schedule 2003-02-08 00:00:00 Completed [facility] TDAP 2003-02-08 00:00:00 Completed [facility] Heamophilus Influenza B 2003-02-08 00:00:00 Completed [facility] DTAP 2003-02-08 00:00:00 Completed [facility] HIB 4 Dose Schedule 2003-02-08 00:00:00 Completed [facility] TDAP 2003-02-08 00:00:00 Completed [facility] Heamophilus Influenza B 2003-02-08 00:00:00 Completed [facility] DTAP 2003-02-08 00:00:00 Completed [facility] HIB 4 Dose Schedule 2003-02-08 00:00:00 Completed [facility] TDAP 2003-02-08 00:00:00 Completed [facility] Heamophilus Influenza B 2003-02-08 00:00:00 Completed [facility] DTAP 2003-02-08 00:00:00 Completed [facility] HIB 4 Dose Schedule 2003-02-08 00:00:00 Completed [facility] TDAP 2003-02-08 00:00:00 Completed [facility] Heamophilus Influenza B 2003-02-08 00:00:00 Completed [facility] DTAP 2003-02-08 00:00:00 Completed [facility] HIB 4 Dose Schedule 2003-02-08 00:00:00 Completed [facility] TDAP 2003-02-08 00:00:00 Completed [facility] Heamophilus Influenza B 2003-02-08 00:00:00 Completed [facility] DTAP 2003-02-08 00:00:00 Completed [facility] HIB 4 Dose Schedule 2003-02-08 00:00:00 Completed [facility] TDAP 2003-02-08 00:00:00 Completed [facility] Heamophilus Influenza B 2003-02-08 00:00:00 Completed [facility] DTAP 2003-02-08 00:00:00 Completed [facility] HIB 4 Dose Schedule 2003-02-08 00:00:00 Completed [facility] TDAP 2003-02-08 00:00:00 Completed [facility] Heamophilus Influenza B 2003-02-08 00:00:00 Completed [facility] DTAP 2003-02-08 00:00:00 Completed [facility] HIB 4 Dose Schedule 2003-02-08 00:00:00 Completed [facility] TDAP 2003-02-08 00:00:00 Completed [facility] Heamophilus Influenza B 2003-02-08 00:00:00 Completed [facility] DTAP 2003-02-08 00:00:00 Completed [facility] HIB 4 Dose Schedule 2003-02-08 00:00:00 Completed [facility] TDAP 2003-02-08 00:00:00 Completed [facility] Heamophilus Influenza B 2003-02-08 00:00:00 Completed [facility] DTAP 2003-02-08 00:00:00 Completed [facility] HIB 4 Dose Schedule 2003-02-08 00:00:00 Completed [facility] TDAP 2003-02-08 00:00:00 Completed [facility] Heamophilus Influenza B 2003-02-08 00:00:00 Completed [facility] Varicella (varivax)(chicken pox) 2002-11-23 00:00:00 Completed [facility] MMR 2002-11-23 00:00:00 Completed [facility] IPV 2002-11-23 00:00:00 Completed [facility] Varicella (varivax)(chicken pox) 2002-11-23 00:00:00 Completed [facility] MMR 2002-11-23 00:00:00 Completed [facility] IPV 2002-11-23 00:00:00 Completed [facility] Varicella (varivax)(chicken pox) 2002-11-23 00:00:00 Completed [facility] MMR 2002-11-23 00:00:00 Completed [facility] IPV 2002-11-23 00:00:00 Completed [facility] Varicella (varivax)(chicken pox) 2002-11-23 00:00:00 Completed [facility] MMR 2002-11-23 00:00:00 Completed [facility] IPV 2002-11-23 00:00:00 Completed [facility] Varicella (varivax)(chicken pox) 2002-11-23 00:00:00 Completed [facility] MMR 2002-11-23 00:00:00 Completed [facility] IPV 2002-11-23 00:00:00 Completed [facility] Varicella (varivax)(chicken pox) 2002-11-23 00:00:00 Completed [facility] MMR 2002-11-23 00:00:00 Completed [facility] IPV 2002-11-23 00:00:00 Completed [facility] Varicella (varivax)(chicken pox) 2002-11-23 00:00:00 Completed [facility] MMR 2002-11-23 00:00:00 Completed [facility] IPV 2002-11-23 00:00:00 Completed [facility] Varicella (varivax)(chicken pox) 2002-11-23 00:00:00 Completed [facility] MMR 2002-11-23 00:00:00 Completed [facility] IPV 2002-11-23 00:00:00 Completed [facility] Varicella (varivax)(chicken pox) 2002-11-23 00:00:00 Completed [facility] MMR 2002-11-23 00:00:00 Completed [facility] IPV 2002-11-23 00:00:00 Completed [facility] Varicella (varivax)(chicken pox) 2002-11-23 00:00:00 Completed [facility] MMR 2002-11-23 00:00:00 Completed [facility] IPV 2002-11-23 00:00:00 Completed [facility] Varicella (varivax)(chicken pox) 2002-11-23 00:00:00 Completed [facility] MMR 2002-11-23 00:00:00 Completed [facility] IPV 2002-11-23 00:00:00 Completed [facility] Varicella (varivax)(chicken pox) 2002-11-23 00:00:00 Completed [facility] MMR 2002-11-23 00:00:00 Completed [facility] IPV 2002-11-23 00:00:00 Completed [facility] Varicella (varivax)(chicken pox) 2002-11-23 00:00:00 Completed [facility] MMR 2002-11-23 00:00:00 Completed [facility] IPV 2002-11-23 00:00:00 Completed [facility] Varicella (varivax)(chicken pox) 2002-11-23 00:00:00 Completed [facility] MMR 2002-11-23 00:00:00 Completed [facility] IPV 2002-11-23 00:00:00 Completed [facility] Varicella (varivax)(chicken pox) 2002-11-23 00:00:00 Completed [facility] MMR 2002-11-23 00:00:00 Completed [facility] IPV 2002-11-23 00:00:00 Completed [facility] Varicella (varivax)(chicken pox) 2002-11-23 00:00:00 Completed [facility] MMR 2002-11-23 00:00:00 Completed [facility] IPV 2002-11-23 00:00:00 Completed [facility] Varicella (varivax)(chicken pox) 2002-11-23 00:00:00 Completed [facility] MMR 2002-11-23 00:00:00 Completed [facility] IPV 2002-11-23 00:00:00 Completed [facility] DTAP 2002-08-03 00:00:00 Completed [facility] HIB 4 Dose Schedule 2002-08-03 00:00:00 Completed [facility] Hep B, Adol or Pedi Dosage 2002-08-03 00:00:00 Completed [facility] TDAP 2002-08-03 00:00:00 Completed [facility] Heamophilus Influenza B 2002-08-03 00:00:00 Completed [facility] DTAP 2002-08-03 00:00:00 Completed [facility] HIB 4 Dose Schedule 2002-08-03 00:00:00 Completed [facility] Hep B, Adol or Pedi Dosage 2002-08-03 00:00:00 Completed [facility] TDAP 2002-08-03 00:00:00 Completed [facility] Heamophilus Influenza B 2002-08-03 00:00:00 Completed [facility] DTAP 2002-08-03 00:00:00 Completed [facility] HIB 4 Dose Schedule 2002-08-03 00:00:00 Completed [facility] Hep B, Adol or Pedi Dosage 2002-08-03 00:00:00 Completed [facility] TDAP 2002-08-03 00:00:00 Completed [facility] Heamophilus Influenza B 2002-08-03 00:00:00 Completed [facility] DTAP 2002-08-03 00:00:00 Completed [facility] HIB 4 Dose Schedule 2002-08-03 00:00:00 Completed [facility] Hep B, Adol or Pedi Dosage 2002-08-03 00:00:00 Completed [facility] TDAP 2002-08-03 00:00:00 Completed [facility] Heamophilus Influenza B 2002-08-03 00:00:00 Completed [facility] DTAP 2002-08-03 00:00:00 Completed [facility] HIB 4 Dose Schedule 2002-08-03 00:00:00 Completed [facility] Hep B, Adol or Pedi Dosage 2002-08-03 00:00:00 Completed [facility] TDAP 2002-08-03 00:00:00 Completed [facility] Heamophilus Influenza B 2002-08-03 00:00:00 Completed [facility] DTAP 2002-08-03 00:00:00 Completed [facility] HIB 4 Dose Schedule 2002-08-03 00:00:00 Completed [facility] Hep B, Adol or Pedi Dosage 2002-08-03 00:00:00 Completed [facility] TDAP 2002-08-03 00:00:00 Completed [facility] Heamophilus Influenza B 2002-08-03 00:00:00 Completed [facility] DTAP 2002-08-03 00:00:00 Completed [facility] HIB 4 Dose Schedule 2002-08-03 00:00:00 Completed [facility] Hep B, Adol or Pedi Dosage 2002-08-03 00:00:00 Completed [facility] TDAP 2002-08-03 00:00:00 Completed [facility] Heamophilus Influenza B 2002-08-03 00:00:00 Completed [facility] DTAP 2002-08-03 00:00:00 Completed [facility] HIB 4 Dose Schedule 2002-08-03 00:00:00 Completed [facility] Hep B, Adol or Pedi Dosage 2002-08-03 00:00:00 Completed [facility] TDAP 2002-08-03 00:00:00 Completed [facility] Heamophilus Influenza B 2002-08-03 00:00:00 Completed [facility] DTAP 2002-08-03 00:00:00 Completed [facility] HIB 4 Dose Schedule 2002-08-03 00:00:00 Completed [facility] Hep B, Adol or Pedi Dosage 2002-08-03 00:00:00 Completed [facility] TDAP 2002-08-03 00:00:00 Completed [facility] Heamophilus Influenza B 2002-08-03 00:00:00 Completed [facility] DTAP 2002-08-03 00:00:00 Completed [facility] HIB 4 Dose Schedule 2002-08-03 00:00:00 Completed [facility] Hep B, Adol or Pedi Dosage 2002-08-03 00:00:00 Completed [facility] TDAP 2002-08-03 00:00:00 Completed [facility] Heamophilus Influenza B 2002-08-03 00:00:00 Completed [facility] DTAP 2002-08-03 00:00:00 Completed [facility] HIB 4 Dose Schedule 2002-08-03 00:00:00 Completed [facility] Hep B, Adol or Pedi Dosage 2002-08-03 00:00:00 Completed [facility] TDAP 2002-08-03 00:00:00 Completed [facility] Heamophilus Influenza B 2002-08-03 00:00:00 Completed [facility] DTAP 2002-08-03 00:00:00 Completed [facility] HIB 4 Dose Schedule 2002-08-03 00:00:00 Completed [facility] Hep B, Adol or Pedi Dosage 2002-08-03 00:00:00 Completed [facility] TDAP 2002-08-03 00:00:00 Completed [facility] Heamophilus Influenza B 2002-08-03 00:00:00 Completed [facility] DTAP 2002-08-03 00:00:00 Completed [facility] HIB 4 Dose Schedule 2002-08-03 00:00:00 Completed [facility] Hep B, Adol or Pedi Dosage 2002-08-03 00:00:00 Completed [facility] TDAP 2002-08-03 00:00:00 Completed [facility] Heamophilus Influenza B 2002-08-03 00:00:00 Completed [facility] DTAP 2002-08-03 00:00:00 Completed [facility] HIB 4 Dose Schedule 2002-08-03 00:00:00 Completed [facility] Hep B, Adol or Pedi Dosage 2002-08-03 00:00:00 Completed [facility] TDAP 2002-08-03 00:00:00 Completed [facility] Heamophilus Influenza B 2002-08-03 00:00:00 Completed [facility] DTAP 2002-08-03 00:00:00 Completed [facility] HIB 4 Dose Schedule 2002-08-03 00:00:00 Completed [facility] Hep B, Adol or Pedi Dosage 2002-08-03 00:00:00 Completed [facility] TDAP 2002-08-03 00:00:00 Completed [facility] Heamophilus Influenza B 2002-08-03 00:00:00 Completed [facility] DTAP 2002-08-03 00:00:00 Completed [facility] HIB 4 Dose Schedule 2002-08-03 00:00:00 Completed [facility] Hep B, Adol or Pedi Dosage 2002-08-03 00:00:00 Completed [facility] TDAP 2002-08-03 00:00:00 Completed [facility] Heamophilus Influenza B 2002-08-03 00:00:00 Completed [facility] DTAP 2002-08-03 00:00:00 Completed [facility] HIB 4 Dose Schedule 2002-08-03 00:00:00 Completed [facility] Hep B, Adol or Pedi Dosage 2002-08-03 00:00:00 Completed [facility] TDAP 2002-08-03 00:00:00 Completed [facility] Heamophilus Influenza B 2002-08-03 00:00:00 Completed [facility] DTAP 2002-03-15 00:00:00 Completed [facility] HIB 4 Dose Schedule 2002-03-15 00:00:00 Completed [facility] TDAP 2002-03-15 00:00:00 Completed [facility] Heamophilus Influenza B 2002-03-15 00:00:00 Completed [facility] IPV 2002-03-15 00:00:00 Completed [facility] DTAP 2002-03-15 00:00:00 Completed [facility] HIB 4 Dose Schedule 2002-03-15 00:00:00 Completed [facility] TDAP 2002-03-15 00:00:00 Completed [facility] Heamophilus Influenza B 2002-03-15 00:00:00 Completed [facility] IPV 2002-03-15 00:00:00 Completed [facility] DTAP 2002-03-15 00:00:00 Completed [facility] HIB 4 Dose Schedule 2002-03-15 00:00:00 Completed [facility] TDAP 2002-03-15 00:00:00 Completed [facility] Heamophilus Influenza B 2002-03-15 00:00:00 Completed [facility] IPV 2002-03-15 00:00:00 Completed [facility] DTAP 2002-03-15 00:00:00 Completed [facility] HIB 4 Dose Schedule 2002-03-15 00:00:00 Completed [facility] TDAP 2002-03-15 00:00:00 Completed [facility] Heamophilus Influenza B 2002-03-15 00:00:00 Completed [facility] IPV 2002-03-15 00:00:00 Completed [facility] DTAP 2002-03-15 00:00:00 Completed [facility] HIB 4 Dose Schedule 2002-03-15 00:00:00 Completed [facility] TDAP 2002-03-15 00:00:00 Completed [facility] Heamophilus Influenza B 2002-03-15 00:00:00 Completed [facility] IPV 2002-03-15 00:00:00 Completed [facility] DTAP 2002-03-15 00:00:00 Completed [facility] HIB 4 Dose Schedule 2002-03-15 00:00:00 Completed [facility] TDAP 2002-03-15 00:00:00 Completed [facility] Heamophilus Influenza B 2002-03-15 00:00:00 Completed [facility] IPV 2002-03-15 00:00:00 Completed [facility] DTAP 2002-03-15 00:00:00 Completed [facility] HIB 4 Dose Schedule 2002-03-15 00:00:00 Completed [facility] TDAP 2002-03-15 00:00:00 Completed [facility] Heamophilus Influenza B 2002-03-15 00:00:00 Completed [facility] IPV 2002-03-15 00:00:00 Completed [facility] DTAP 2002-03-15 00:00:00 Completed [facility] HIB 4 Dose Schedule 2002-03-15 00:00:00 Completed [facility] TDAP 2002-03-15 00:00:00 Completed [facility] Heamophilus Influenza B 2002-03-15 00:00:00 Completed [facility] IPV 2002-03-15 00:00:00 Completed [facility] DTAP 2002-03-15 00:00:00 Completed [facility] HIB 4 Dose Schedule 2002-03-15 00:00:00 Completed [facility] TDAP 2002-03-15 00:00:00 Completed [facility] Heamophilus Influenza B 2002-03-15 00:00:00 Completed [facility] IPV 2002-03-15 00:00:00 Completed [facility] DTAP 2002-03-15 00:00:00 Completed [facility] HIB 4 Dose Schedule 2002-03-15 00:00:00 Completed [facility] TDAP 2002-03-15 00:00:00 Completed [facility] Heamophilus Influenza B 2002-03-15 00:00:00 Completed [facility] IPV 2002-03-15 00:00:00 Completed [facility] DTAP 2002-03-15 00:00:00 Completed [facility] HIB 4 Dose Schedule 2002-03-15 00:00:00 Completed [facility] TDAP 2002-03-15 00:00:00 Completed [facility] Heamophilus Influenza B 2002-03-15 00:00:00 Completed [facility] IPV 2002-03-15 00:00:00 Completed [facility] DTAP 2002-03-15 00:00:00 Completed [facility] HIB 4 Dose Schedule 2002-03-15 00:00:00 Completed [facility] TDAP 2002-03-15 00:00:00 Completed [facility] Heamophilus Influenza B 2002-03-15 00:00:00 Completed [facility] IPV 2002-03-15 00:00:00 Completed [facility] DTAP 2002-03-15 00:00:00 Completed [facility] HIB 4 Dose Schedule 2002-03-15 00:00:00 Completed [facility] TDAP 2002-03-15 00:00:00 Completed [facility] Heamophilus Influenza B 2002-03-15 00:00:00 Completed [facility] IPV 2002-03-15 00:00:00 Completed [facility] DTAP 2002-03-15 00:00:00 Completed [facility] HIB 4 Dose Schedule 2002-03-15 00:00:00 Completed [facility] TDAP 2002-03-15 00:00:00 Completed [facility] Heamophilus Influenza B 2002-03-15 00:00:00 Completed [facility] IPV 2002-03-15 00:00:00 Completed [facility] DTAP 2002-03-15 00:00:00 Completed [facility] HIB 4 Dose Schedule 2002-03-15 00:00:00 Completed [facility] TDAP 2002-03-15 00:00:00 Completed [facility] Heamophilus Influenza B 2002-03-15 00:00:00 Completed [facility] IPV 2002-03-15 00:00:00 Completed [facility] DTAP 2002-03-15 00:00:00 Completed [facility] HIB 4 Dose Schedule 2002-03-15 00:00:00 Completed [facility] TDAP 2002-03-15 00:00:00 Completed [facility] Heamophilus Influenza B 2002-03-15 00:00:00 Completed [facility] IPV 2002-03-15 00:00:00 Completed [facility] DTAP 2002-03-15 00:00:00 Completed [facility] HIB 4 Dose Schedule 2002-03-15 00:00:00 Completed [facility] TDAP 2002-03-15 00:00:00 Completed [facility] Heamophilus Influenza B 2002-03-15 00:00:00 Completed [facility] IPV 2002-03-15 00:00:00 Completed [facility] DTAP 2001 00:00:00 Completed [facility] HIB 4 Dose Schedule 2001 00:00:00 Completed [facility] TDAP 2001 00:00:00 Completed [facility] Heamophilus Influenza B 2001 00:00:00 Completed [facility] IPV 2001 00:00:00 Completed [facility] DTAP 2001 00:00:00 Completed [facility] HIB 4 Dose Schedule 2001 00:00:00 Completed [facility] TDAP 2001 00:00:00 Completed [facility] Heamophilus Influenza B 2001 00:00:00 Completed [facility] IPV 2001 00:00:00 Completed [facility] DTAP 2001 00:00:00 Completed [facility] HIB 4 Dose Schedule 2001 00:00:00 Completed [facility] TDAP 2001 00:00:00 Completed [facility] Heamophilus Influenza B 2001 00:00:00 Completed [facility] IPV 2001 00:00:00 Completed [facility] DTAP 2001 00:00:00 Completed [facility] HIB 4 Dose Schedule 2001 00:00:00 Completed [facility] TDAP 2001 00:00:00 Completed [facility] Heamophilus Influenza B 2001 00:00:00 Completed [facility] IPV 2001 00:00:00 Completed [facility] DTAP 2001 00:00:00 Completed [facility] HIB 4 Dose Schedule 2001 00:00:00 Completed [facility] TDAP 2001 00:00:00 Completed [facility] Heamophilus Influenza B 2001 00:00:00 Completed [facility] IPV 2001 00:00:00 Completed [facility] DTAP 2001 00:00:00 Completed [facility] HIB 4 Dose Schedule 2001 00:00:00 Completed [facility] TDAP 2001 00:00:00 Completed [facility] Heamophilus Influenza B 2001 00:00:00 Completed [facility] IPV 2001 00:00:00 Completed [facility] DTAP 2001 00:00:00 Completed [facility] HIB 4 Dose Schedule 2001 00:00:00 Completed [facility] TDAP 2001 00:00:00 Completed [facility] Heamophilus Influenza B 2001 00:00:00 Completed [facility] IPV 2001 00:00:00 Completed [facility] DTAP 2001 00:00:00 Completed [facility] HIB 4 Dose Schedule 2001 00:00:00 Completed [facility] TDAP 2001 00:00:00 Completed [facility] Heamophilus Influenza B 2001 00:00:00 Completed [facility] IPV 2001 00:00:00 Completed [facility] DTAP 2001 00:00:00 Completed [facility] HIB 4 Dose Schedule 2001 00:00:00 Completed [facility] TDAP 2001 00:00:00 Completed [facility] Heamophilus Influenza B 2001 00:00:00 Completed [facility] IPV 2001 00:00:00 Completed [facility] DTAP 2001 00:00:00 Completed [facility] HIB 4 Dose Schedule 2001 00:00:00 Completed [facility] TDAP 2001 00:00:00 Completed [facility] Heamophilus Influenza B 2001 00:00:00 Completed [facility] IPV 2001 00:00:00 Completed [facility] DTAP 2001 00:00:00 Completed [facility] HIB 4 Dose Schedule 2001 00:00:00 Completed [facility] TDAP 2001 00:00:00 Completed [facility] Heamophilus Influenza B 2001 00:00:00 Completed [facility] IPV 2001 00:00:00 Completed [facility] DTAP 2001 00:00:00 Completed [facility] HIB 4 Dose Schedule 2001 00:00:00 Completed [facility] TDAP 2001 00:00:00 Completed [facility] Heamophilus Influenza B 2001 00:00:00 Completed [facility] IPV 2001 00:00:00 Completed [facility] DTAP 2001 00:00:00 Completed [facility] HIB 4 Dose Schedule 2001 00:00:00 Completed [facility] TDAP 2001 00:00:00 Completed [facility] Heamophilus Influenza B 2001 00:00:00 Completed [facility] IPV 2001 00:00:00 Completed [facility] DTAP 2001 00:00:00 Completed [facility] HIB 4 Dose Schedule 2001 00:00:00 Completed [facility] TDAP 2001 00:00:00 Completed [facility] Heamophilus Influenza B 2001 00:00:00 Completed [facility] IPV 2001 00:00:00 Completed [facility] DTAP 2001 00:00:00 Completed [facility] HIB 4 Dose Schedule 2001 00:00:00 Completed [facility] TDAP 2001 00:00:00 Completed [facility] Heamophilus Influenza B 2001 00:00:00 Completed [facility] IPV 2001 00:00:00 Completed [facility] DTAP 2001 00:00:00 Completed [facility] HIB 4 Dose Schedule 2001 00:00:00 Completed [facility] TDAP 2001 00:00:00 Completed [facility] Heamophilus Influenza B 2001 00:00:00 Completed [facility] IPV 2001 00:00:00 Completed [facility] DTAP 2001 00:00:00 Completed [facility] HIB 4 Dose Schedule 2001 00:00:00 Completed [facility] TDAP 2001 00:00:00 Completed [facility] Heamophilus Influenza B 2001 00:00:00 Completed [facility] IPV 2001 00:00:00 Completed [facility] Hep B, Adol or Pedi Dosage 2001 00:00:00 Completed [facility] Hep B, Adol or Pedi Dosage 2001 00:00:00 Completed [facility] Hep B, Adol or Pedi Dosage 2001 00:00:00 Completed [facility] Hep B, Adol or Pedi Dosage 2001 00:00:00 Completed [facility] Hep B, Adol or Pedi Dosage 2001 00:00:00 Completed [facility] Hep B, Adol or Pedi Dosage 2001 00:00:00 Completed [facility] Hep B, Adol or Pedi Dosage 2001 00:00:00 Completed [facility] Hep B, Adol or Pedi Dosage 2001 00:00:00 Completed [facility] Hep B, Adol or Pedi Dosage 2001 00:00:00 Completed [facility] Hep B, Adol or Pedi Dosage 2001 00:00:00 Completed [facility] Hep B, Adol or Pedi Dosage 2001 00:00:00 Completed [facility] Hep B, Adol or Pedi Dosage 2001 00:00:00 Completed [facility] Hep B, Adol or Pedi Dosage 2001 00:00:00 Completed [facility] Hep B, Adol or Pedi Dosage 2001 00:00:00 Completed [facility] Hep B, Adol or Pedi Dosage 2001 00:00:00 Completed [facility] Hep B, Adol or Pedi Dosage 2001 00:00:00 Completed [facility] Hep B, Adol or Pedi Dosage 2001 00:00:00 Completed [facility] Hep B, Adol or Pedi Dosage 2001 00:00:00 Completed [facility] Hep B, Adol or Pedi Dosage 2001 00:00:00 Completed [facility] Hep B, Adol or Pedi Dosage 2001 00:00:00 Completed [facility] Hep B, Adol or Pedi Dosage 2001 00:00:00 Completed [facility] Hep B, Adol or Pedi Dosage 2001 00:00:00 Completed [facility] Hep B, Adol or Pedi Dosage 2001 00:00:00 Completed [facility] Hep B, Adol or Pedi Dosage 2001 00:00:00 Completed [facility] Hep B, Adol or Pedi Dosage 2001 00:00:00 Completed [facility] Hep B, Adol or Pedi Dosage 2001 00:00:00 Completed [facility] Hep B, Adol or Pedi Dosage 2001 00:00:00 Completed [facility] Hep B, Adol or Pedi Dosage 2001 00:00:00 Completed [facility] Hep B, Adol or Pedi Dosage 2001 00:00:00 Completed [facility] Hep B, Adol or Pedi Dosage 2001 00:00:00 Completed [facility] Hep B, Adol or Pedi Dosage 2001 00:00:00 Completed [facility] Hep B, Adol or Pedi Dosage 2001 00:00:00 Completed [facility] Hep B, Adol or Pedi Dosage 2001 00:00:00 Completed [facility] Hep B, Adol or Pedi Dosage 2001 00:00:00 Completed [facility] Rho (d) Immune Globulin Unknown Completed [facility] Influenza Virus Vaccine Quad .5 mL IM 6+ MO (FLUZONE/FLULAVAL/FL UARIX) Unknown Completed [facility] TDAP (ADACEL) VACCINE Unknown Completed [facility] MMR Unknown Completed [facility] Rho (d) Immune Globulin Unknown Completed [facility] DTAP Unknown Completed [facility] DTAP Unknown Completed [facility] DTAP Unknown Completed [facility] DTAP Unknown Completed [facility] HIB 4 Dose Schedule Unknown Completed [facility] HIB 4 Dose Schedule Unknown Completed [facility] HIB 4 Dose Schedule Unknown Completed [facility] HIB 4 Dose Schedule Unknown Completed [facility] HEPATITIS A Unknown Completed [facility] HEPATITIS A Unknown Completed [facility] Hep B, Adol or Pedi Dosage Unknown Completed [facility] Hep B, Adol or Pedi Dosage Unknown Completed [facility] Hep B, Adol or Pedi Dosage Unknown Completed [facility] HPV Unknown Completed [facility] HPV Unknown Completed [facility] Influenza Virus Vaccine Unknown Completed [facility] Meningococcal Vaccine Unknown Completed [facility] Varicella (varivax)(chicken pox) Unknown Completed [facility] MMR Unknown Completed [facility] Varicella (varivax)(chicken pox) Unknown Completed [facility] Rho (d) Immune Globulin Unknown Completed [facility] TDAP Unknown Completed [facility] Influenza Virus Vaccine Quad IM, Preserv and ABX Free 6 MO-64 YRS (FLUCELVAX) Unknown Completed [facility] Influenza Virus Vaccine Unknown Completed [facility] Influenza Virus Vaccine Unknown Completed [facility] Influenza Virus Vaccine Unknown Completed [facility] Influenza Virus Vaccine Unknown Completed [facility] TDAP Unknown Completed [facility] TDAP Unknown Completed [facility] TDAP Unknown Completed [facility] TDAP Unknown Completed [facility] Heamophilus Influenza B Unknown Completed [facility] Heamophilus Influenza B Unknown Completed [facility] Heamophilus Influenza B Unknown Completed [facility] Heamophilus Influenza B Unknown Completed [facility] Influenza Virus Vaccine Quad IM 3+ YRS Unknown Completed [facility] Influenza Virus Vaccine Quad IM 3+ YRS Unknown Completed [facility] Influenza Virus Vaccine Nasal Unknown Completed [facility] Influenza Virus Vaccine Nasal Unknown Completed [facility] IPV Unknown Completed [facility] IPV Unknown Completed [facility] IPV Unknown Completed [facility] Influenza Virus Vaccine Unknown Completed [facility] TDAP Unknown Completed [facility] Meningococcal Polysaccharide (groups A, C, Y and W-135) conjugate vaccine (MCV4P) Unknown Completed [facility] Rho (d) Immune Globulin Unknown Completed [facility] Influenza Virus Vaccine Quad .5 mL IM 6+ MO (FLUZONE/FLULAVAL/FL UARIX) Unknown Completed [facility] TDAP (ADACEL) VACCINE Unknown Completed [facility] MMR Unknown Completed [facility] Rho (d) Immune Globulin Unknown Completed [facility] DTAP Unknown Completed [facility] DTAP Unknown Completed [facility] DTAP Unknown Completed [facility] DTAP Unknown Completed [facility] HIB 4 Dose Schedule Unknown Completed [facility] HIB 4 Dose Schedule Unknown Completed [facility] HIB 4 Dose Schedule Unknown Completed [facility] HIB 4 Dose Schedule Unknown Completed [facility] HEPATITIS A Unknown [facility]PATITIS A Unknown [facility] Hep B, Adol or Pedi Dosage Unknown Completed [facility] Hep B, Adol or Pedi Dosage Unknown Completed [facility] Hep B, Adol or Pedi Dosage Unknown Completed [facility] HPV Unknown Completed [facility] HPV Unknown Completed [facility] Influenza Virus Vaccine Unknown Completed [facility] Meningococcal Vaccine Unknown Completed [facility] Varicella (varivax)(chicken pox) Unknown Completed [facility] MMR Unknown Completed [facility] Varicella (varivax)(chicken pox) Unknown Completed [facility] Rho (d) Immune Globulin Unknown Completed [facility] TDAP Unknown Completed [facility] Influenza Virus Vaccine Quad IM, Preserv and ABX Free 6 MO-64 YRS (FLUCELVAX) Unknown Completed [facility] Influenza Virus Vaccine Unknown Completed [facility] Influenza Virus Vaccine Unknown Completed [facility] Influenza Virus Vaccine Unknown Completed [facility] Influenza Virus Vaccine Unknown Completed [facility] TDAP Unknown Completed [facility] TDAP Unknown Completed [facility] TDAP Unknown Completed [facility] TDAP Unknown Completed [facility] Heamophilus Influenza B Unknown Completed [facility] Heamophilus Influenza B Unknown Completed [facility] Heamophilus Influenza B Unknown Completed [facility] Heamophilus Influenza B Unknown Completed [facility] Influenza Virus Vaccine Quad IM 3+ YRS Unknown Completed [facility] Influenza Virus Vaccine Quad IM 3+ YRS Unknown Completed [facility] Influenza Virus Vaccine Nasal Unknown Completed [facility] Influenza Virus Vaccine Nasal Unknown Completed [facility] IPV Unknown Completed [facility] IPV Unknown Completed [facility] IPV Unknown Completed [facility] Influenza Virus Vaccine Unknown Completed [facility] TDAP Unknown Completed [facility] Meningococcal Polysaccharide (groups A, C, Y and W-135) conjugate vaccine (MCV4P) Unknown Completed [facility] Rho (d) Immune Globulin Unknown Completed [facility] Influenza Virus Vaccine Quad .5 mL IM 6+ MO (FLUZONE/FLULAVAL/FL UARIX) Unknown Completed [facility] TDAP (ADACEL) VACCINE Unknown Completed [facility] MMR Unknown Completed [facility] Rho (d) Immune Globulin Unknown Completed [facility] DTAP Unknown Completed [facility] DTAP Unknown Completed [facility] DTAP Unknown Completed [facility] DTAP Unknown Completed [facility] HIB 4 Dose Schedule Unknown Completed [facility] HIB 4 Dose Schedule Unknown Completed [facility] HIB 4 Dose Schedule Unknown Completed [facility] HIB 4 Dose Schedule Unknown Completed [facility] HEPATITIS A Unknown Completed [facility] HEPATITIS A Unknown Completed [facility] Hep B, Adol or Pedi Dosage Unknown Completed [facility] Hep B, Adol or Pedi Dosage Unknown Completed [facility] Hep B, Adol or Pedi Dosage Unknown Completed [facility] HPV Unknown Completed [facility] HPV Unknown Completed [facility] Influenza Virus Vaccine Unknown Completed [facility] Meningococcal Vaccine Unknown Completed [facility] Varicella (varivax)(chicken pox) Unknown Completed [facility] MMR Unknown Completed [facility] Varicella (varivax)(chicken pox) Unknown Completed [facility] Rho (d) Immune Globulin Unknown Completed [facility] TDAP Unknown Completed [facility] Influenza Virus Vaccine Quad IM, Preserv and ABX Free 6 MO-64 YRS (FLUCELVAX) Unknown Completed [facility] Influenza Virus Vaccine Unknown Completed [facility] Influenza Virus Vaccine Unknown Completed [facility] Influenza Virus Vaccine Unknown Completed [facility] Influenza Virus Vaccine Unknown Completed [facility] TDAP Unknown Completed [facility] TDAP Unknown Completed [facility] TDAP Unknown Completed [facility] TDAP Unknown Completed [facility] Heamophilus Influenza B Unknown Completed [facility] Heamophilus Influenza B Unknown Completed [facility] Heamophilus Influenza B Unknown Completed [facility] Heamophilus Influenza B Unknown Completed [facility] Influenza Virus Vaccine Quad IM 3+ YRS Unknown Completed [facility] Influenza Virus Vaccine Quad IM 3+ YRS Unknown Completed [facility] Influenza Virus Vaccine Nasal Unknown Completed [facility] Influenza Virus Vaccine Nasal Unknown Completed [facility] IPV Unknown Completed [facility] IPV Unknown Completed [facility] IPV Unknown Completed [facility] Influenza Virus Vaccine Unknown Completed [facility] TDAP Unknown Completed [facility] Meningococcal Polysaccharide (groups A, C, Y and W-135) conjugate vaccine (MCV4P) Unknown Completed [facility] Rho (d) Immune Globulin Unknown Completed [facility] Influenza Virus Vaccine Quad .5 mL IM 6+ MO (FLUZONE/FLULAVAL/FL UARIX) Unknown Completed [facility] TDAP (ADACEL) VACCINE Unknown Completed [facility] MMR Unknown Completed [facility] Rho (d) Immune Globulin Unknown Completed [facility] DTAP Unknown Completed [facility] DTAP Unknown Completed [facility] DTAP Unknown Completed [facility] DTAP Unknown Completed [facility] HIB 4 Dose Schedule Unknown Completed [facility] HIB 4 Dose Schedule Unknown Completed [facility] HIB 4 Dose Schedule Unknown Completed [facility] HIB 4 Dose Schedule Unknown Completed [facility] HEPATITIS A Unknown Completed [facility] HEPATITIS A Unknown Completed [facility] Hep B, Adol or Pedi Dosage Unknown Completed [facility] Hep B, Adol or Pedi Dosage Unknown Completed [facility] Hep B, Adol or Pedi Dosage Unknown Completed [facility] HPV Unknown Completed [facility] HPV Unknown Completed [facility] Influenza Virus Vaccine Unknown Completed [facility] Meningococcal Vaccine Unknown Completed [facility] Varicella (varivax)(chicken pox) Unknown Completed [facility] MMR Unknown Completed [facility] Varicella (varivax)(chicken pox) Unknown Completed [facility] Rho (d) Immune Globulin Unknown Completed [facility] TDAP Unknown Completed [facility] Influenza Virus Vaccine Quad IM, Preserv and ABX Free 6 MO-64 YRS (FLUCELVAX) Unknown Completed [facility] Influenza Virus Vaccine Unknown Completed [facility] Influenza Virus Vaccine Unknown Completed [facility] Influenza Virus Vaccine Unknown Completed [facility] Influenza Virus Vaccine Unknown Completed [facility] TDAP Unknown Completed [facility] TDAP Unknown Completed [facility] TDAP Unknown Completed [facility] TDAP Unknown Completed [facility] Heamophilus Influenza B Unknown Completed [facility] Heamophilus Influenza B Unknown Completed [facility] Heamophilus Influenza B Unknown Completed [facility] Heamophilus Influenza B Unknown Completed [facility] Influenza Virus Vaccine Quad IM 3+ YRS Unknown Completed [facility] Influenza Virus Vaccine Quad IM 3+ YRS Unknown Completed [facility] Influenza Virus Vaccine Nasal Unknown Completed [facility] Influenza Virus Vaccine Nasal Unknown Completed [facility] IPV Unknown Completed [facility] IPV Unknown Completed [facility] IPV Unknown Completed [facility] Influenza Virus Vaccine Unknown Completed [facility] TDAP Unknown Completed [facility] Meningococcal Polysaccharide (groups A, C, Y and W-135) conjugate vaccine (MCV4P) Unknown Completed [facility] Rho (d) Immune Globulin Unknown Completed [facility] Influenza Virus Vaccine Quad .5 mL IM 6+ MO (FLUZONE/FLULAVAL/FL UARIX) Unknown Completed [facility] TDAP (ADACEL) VACCINE Unknown Completed [facility] MMR Unknown Completed [facility] Rho (d) Immune Globulin Unknown Completed [facility] DTAP Unknown Completed [facility] DTAP Unknown Completed [facility] DTAP Unknown Completed [facility] DTAP Unknown Completed [facility] HIB 4 Dose Schedule Unknown Completed [facility] HIB 4 Dose Schedule Unknown Completed [facility] HIB 4 Dose Schedule Unknown Completed [facility] HIB 4 Dose Schedule Unknown Completed [facility] HEPATITIS A Unknown Completed [facility] HEPATITIS A Unknown Completed [facility] Hep B, Adol or Pedi Dosage Unknown Completed [facility] Hep B, Adol or Pedi Dosage Unknown Completed [facility] Hep B, Adol or Pedi Dosage Unknown Completed [facility] HPV Unknown Completed [facility] HPV Unknown Completed [facility] Influenza Virus Vaccine Unknown Completed [facility] Meningococcal Vaccine Unknown Completed [facility] Varicella (varivax)(chicken pox) Unknown Completed [facility] MMR Unknown Completed [facility] Varicella (varivax)(chicken pox) Unknown Completed [facility] Rho (d) Immune Globulin Unknown Completed [facility] TDAP Unknown Completed [facility] Influenza Virus Vaccine Quad IM, Preserv and ABX Free 6 MO-64 YRS (FLUCELVAX) Unknown Completed [facility] Influenza Virus Vaccine Unknown Completed [facility] Influenza Virus Vaccine Unknown Completed [facility] Influenza Virus Vaccine Unknown Completed [facility] Influenza Virus Vaccine Unknown Completed [facility] TDAP Unknown Completed [facility] TDAP Unknown Completed [facility] TDAP Unknown Completed [facility] TDAP Unknown Completed [facility] Heamophilus Influenza B Unknown Completed [facility] Heamophilus Influenza B Unknown Completed [facility] Heamophilus Influenza B Unknown Completed [facility] Heamophilus Influenza B Unknown Completed [facility] Influenza Virus Vaccine Quad IM 3+ YRS Unknown Completed [facility] Influenza Virus Vaccine Quad IM 3+ YRS Unknown Completed [facility] Influenza Virus Vaccine Nasal Unknown Completed [facility] Influenza Virus Vaccine Nasal Unknown Completed [facility] IPV Unknown Completed [facility] IPV Unknown Completed [facility] IPV Unknown Completed [facility] Influenza Virus Vaccine Unknown Completed [facility] TDAP Unknown Completed [facility] Meningococcal Polysaccharide (groups A, C, Y and W-135) conjugate vaccine (MCV4P) Unknown Completed [facility] Rho (d) Immune Globulin Unknown Completed [facility] Influenza Virus Vaccine Quad .5 mL IM 6+ MO (FLUZONE/FLULAVAL/FL UARIX) Unknown Completed [facility] TDAP (ADACEL) VACCINE Unknown Completed [facility] MMR Unknown Completed [facility] Rho (d) Immune Globulin Unknown Completed [facility] DTAP Unknown Completed [facility] DTAP Unknown Completed [facility] DTAP Unknown Completed [facility] DTAP Unknown Completed [facility] HIB 4 Dose Schedule Unknown Completed [facility] HIB 4 Dose Schedule Unknown Completed [facility] HIB 4 Dose Schedule Unknown Completed [facility] HIB 4 Dose Schedule Unknown Completed [facility] HEPATITIS A Unknown Completed [facility] HEPATITIS A Unknown Completed [facility] Hep B, Adol or Pedi Dosage Unknown Completed [facility] Hep B, Adol or Pedi Dosage Unknown Completed [facility] Hep B, Adol or Pedi Dosage Unknown Completed [facility] HPV Unknown Completed [facility] HPV Unknown Completed [facility] Influenza Virus Vaccine Unknown Completed [facility] Meningococcal Vaccine Unknown Completed [facility] Varicella (varivax)(chicken pox) Unknown Completed [facility] MMR Unknown Completed [facility] Varicella (varivax)(chicken pox) Unknown Completed [facility] Rho (d) Immune Globulin Unknown Completed [facility] TDAP Unknown Completed [facility] Influenza Virus Vaccine Quad IM, Preserv and ABX Free 6 MO-64 YRS (FLUCELVAX) Unknown Completed [facility] Influenza Virus Vaccine Unknown Completed [facility] Influenza Virus Vaccine Unknown Completed [facility] Influenza Virus Vaccine Unknown Completed [facility] Influenza Virus Vaccine Unknown Completed [facility] TDAP Unknown Completed [facility] TDAP Unknown Completed [facility] TDAP Unknown Completed [facility] TDAP Unknown Completed [facility] Heamophilus Influenza B Unknown Completed [facility] Heamophilus Influenza B Unknown Completed [facility] Heamophilus Influenza B Unknown Completed [facility] Heamophilus Influenza B Unknown Completed [facility] Influenza Virus Vaccine Quad IM 3+ YRS Unknown Completed [facility] Influenza Virus Vaccine Quad IM 3+ YRS Unknown Completed [facility] Influenza Virus Vaccine Nasal Unknown Completed [facility] Influenza Virus Vaccine Nasal Unknown Completed [facility] IPV Unknown Completed [facility] IPV Unknown Completed [facility] IPV Unknown Completed [facility] Influenza Virus Vaccine Unknown Completed [facility] TDAP Unknown Completed [facility] Meningococcal Polysaccharide (groups A, C, Y and W-135) conjugate vaccine (MCV4P) Unknown Completed [facility] Rho (d) Immune Globulin Unknown Completed [facility] Influenza Virus Vaccine Quad .5 mL IM 6+ MO (FLUZONE/FLULAVAL/FL UARIX) Unknown Completed [facility] TDAP (ADACEL) VACCINE Unknown Completed [facility] MMR Unknown Completed [facility] Rho (d) Immune Globulin Unknown Completed [facility] DTAP Unknown Completed [facility] DTAP Unknown Completed [facility] DTAP Unknown Completed [facility] DTAP Unknown Completed [facility] HIB 4 Dose Schedule Unknown Completed [facility] HIB 4 Dose Schedule Unknown Completed [facility] HIB 4 Dose Schedule Unknown Completed [facility] HIB 4 Dose Schedule Unknown Completed [facility] HEPATITIS A Unknown Completed [facility] HEPATITIS A Unknown Completed [facility] Hep B, Adol or Pedi Dosage Unknown Completed [facility] Hep B, Adol or Pedi Dosage Unknown Completed [facility] Hep B, Adol or Pedi Dosage Unknown Completed [facility] HPV Unknown Completed [facility] HPV Unknown Completed [facility] Influenza Virus Vaccine Unknown Completed [facility] Meningococcal Vaccine Unknown Completed [facility] Varicella (varivax)(chicken pox) Unknown Completed [facility] MMR Unknown Completed [facility] Varicella (varivax)(chicken pox) Unknown Completed [facility] Rho (d) Immune Globulin Unknown Completed [facility] TDAP Unknown Completed [facility] Influenza Virus Vaccine Quad IM, Preserv and ABX Free 6 MO-64 YRS (FLUCELVAX) Unknown Completed [facility] Influenza Virus Vaccine Unknown Completed [facility] Influenza Virus Vaccine Unknown Completed [facility] Influenza Virus Vaccine Unknown Completed [facility] Influenza Virus Vaccine Unknown Completed [facility] TDAP Unknown Completed [facility] TDAP Unknown Completed [facility] TDAP Unknown Completed [facility] TDAP Unknown [facility]pleted [facility] Heamophilus Influenza B Unknown Completed [facility] Heamophilus Influenza B Unknown Completed [facility] Heamophilus Influenza B Unknown Completed [facility] Heamophilus Influenza B Unknown Completed [facility] Influenza Virus Vaccine Quad IM 3+ YRS Unknown Completed [facility] Influenza Virus Vaccine Quad IM 3+ YRS Unknown Completed [facility] Influenza Virus Vaccine Nasal Unknown Completed [facility] Influenza Virus Vaccine Nasal Unknown Completed [facility] IPV Unknown Completed [facility] IPV Unknown Completed [facility] IPV Unknown Completed [facility] Influenza Virus Vaccine Unknown Completed [facility] TDAP Unknown Completed [facility] Meningococcal Polysaccharide (groups A, C, Y and W-135) conjugate vaccine (MCV4P) Unknown Completed [facility] Rho (d) Immune Globulin Unknown Completed [facility] Influenza Virus Vaccine Quad .5 mL IM 6+ MO (FLUZONE/FLULAVAL/FL UARIX) Unknown Completed [facility] TDAP (ADACEL) VACCINE Unknown Completed [facility] MMR Unknown Completed [facility] Rho (d) Immune Globulin Unknown Completed [facility] DTAP Unknown Completed [facility] DTAP Unknown Completed [facility] DTAP Unknown Completed [facility] DTAP Unknown Completed [facility] HIB 4 Dose Schedule Unknown Completed [facility] HIB 4 Dose Schedule Unknown Completed [facility] HIB 4 Dose Schedule Unknown Completed [facility] HIB 4 Dose Schedule Unknown Completed [facility] HEPATITIS A Unknown [facility] HEPATITIS A Unknown Completed [facility] Hep B, Adol or Pedi Dosage Unknown Completed [facility] Hep B, Adol or Pedi Dosage Unknown Completed [facility] Hep B, Adol or Pedi Dosage Unknown Completed [facility] HPV Unknown Completed [facility] HPV Unknown Completed [facility] Influenza Virus Vaccine Unknown Completed [facility] Meningococcal Vaccine Unknown Completed [facility] Varicella (varivax)(chicken pox) Unknown Completed [facility] MMR Unknown Completed [facility] Varicella (varivax)(chicken pox) Unknown Completed [facility] Rho (d) Immune Globulin Unknown Completed [facility] TDAP Unknown Completed [facility] Influenza Virus Vaccine Quad IM, Preserv and ABX Free 6 MO-64 YRS (FLUCELVAX) Unknown Completed [facility] Influenza Virus Vaccine Unknown Completed [facility] Influenza Virus Vaccine Unknown Completed [facility] Influenza Virus Vaccine Unknown Completed [facility] Influenza Virus Vaccine Unknown Completed [facility] TDAP Unknown Completed [facility] TDAP Unknown Completed [facility] TDAP Unknown Completed [facility] TDAP Unknown Completed [facility] Heamophilus Influenza B Unknown Completed [facility] Heamophilus Influenza B Unknown Completed [facility] Heamophilus Influenza B Unknown Completed [facility] Heamophilus Influenza B Unknown Completed [facility] Influenza Virus Vaccine Quad IM 3+ YRS Unknown Completed [facility] Influenza Virus Vaccine Quad IM 3+ YRS Unknown Completed [facility] Influenza Virus Vaccine Nasal Unknown Completed [facility] Influenza Virus Vaccine Nasal Unknown Completed [facility] IPV Unknown Completed [facility] IPV Unknown Completed [facility] IPV Unknown Completed [facility] Influenza Virus Vaccine Unknown Completed [facility] TDAP Unknown Completed [facility] Meningococcal Polysaccharide (groups A, C, Y and W-135) conjugate vaccine (MCV4P) Unknown Completed [facility] Rho (d) Immune Globulin Unknown Completed [facility] Influenza Virus Vaccine Quad .5 mL IM 6+ MO (FLUZONE/FLULAVAL/FL UARIX) Unknown Completed [facility] TDAP (ADACEL) VACCINE Unknown Completed [facility] MMR Unknown Completed [facility] Rho (d) Immune Globulin Unknown Completed [facility] DTAP Unknown Completed [facility] DTAP Unknown Completed [facility] DTAP Unknown Completed [facility] DTAP Unknown Completed [facility] HIB 4 Dose Schedule Unknown Completed [facility] HIB 4 Dose Schedule Unknown Completed [facility] HIB 4 Dose Schedule Unknown Completed [facility] HIB 4 Dose Schedule Unknown Completed [facility] HEPATITIS A Unknown Completed [facility] HEPATITIS A Unknown Completed [facility] Hep B, Adol or Pedi Dosage Unknown Completed [facility] Hep B, Adol or Pedi Dosage Unknown Completed [facility] Hep B, Adol or Pedi Dosage Unknown Completed [facility] HPV Unknown Completed [facility] HPV Unknown Completed [facility] Influenza Virus Vaccine Unknown Completed [facility] Meningococcal Vaccine Unknown Completed [facility] Varicella (varivax)(chicken pox) Unknown Completed [facility] MMR Unknown Completed [facility] Varicella (varivax)(chicken pox) Unknown Completed [facility] Rho (d) Immune Globulin Unknown Completed [facility] TDAP Unknown Completed [facility] Influenza Virus Vaccine Quad IM, Preserv and ABX Free 6 MO-64 YRS (FLUCELVAX) Unknown Completed [facility] Influenza Virus Vaccine Unknown Completed [facility] Influenza Virus Vaccine Unknown Completed [facility] Influenza Virus Vaccine Unknown Completed [facility] Influenza Virus Vaccine Unknown Completed [facility] TDAP Unknown Completed [facility] TDAP Unknown Completed [facility] TDAP Unknown Completed [facility] TDAP Unknown Completed [facility] Heamophilus Influenza B Unknown Completed [facility] Heamophilus Influenza B Unknown Completed [facility] Heamophilus Influenza B Unknown Completed [facility] Heamophilus Influenza B Unknown Completed [facility] Influenza Virus Vaccine Quad IM 3+ YRS Unknown Completed [facility] Influenza Virus Vaccine Quad IM 3+ YRS Unknown Completed [facility] Influenza Virus Vaccine Nasal Unknown Completed [facility] Influenza Virus Vaccine Nasal Unknown Completed [facility] IPV Unknown Completed [facility] IPV Unknown Completed [facility] IPV Unknown Completed [facility] Influenza Virus Vaccine Unknown Completed [facility] TDAP Unknown Completed [facility] Meningococcal Polysaccharide (groups A, C, Y and W-135) conjugate vaccine (MCV4P) Unknown Completed [facility] Rho (d) Immune Globulin Unknown Completed [facility] Influenza Virus Vaccine Quad .5 mL IM 6+ MO (FLUZONE/FLULAVAL/FL UARIX) Unknown Completed [facility] TDAP (ADACEL) VACCINE Unknown Completed [facility] MMR Unknown Completed [facility] Rho (d) Immune Globulin Unknown Completed [facility] DTAP Unknown Completed [facility] DTAP Unknown Completed [facility] DTAP Unknown Completed [facility] DTAP Unknown Completed [facility] HIB 4 Dose Schedule Unknown Completed [facility] HIB 4 Dose Schedule Unknown Completed [facility] HIB 4 Dose Schedule Unknown Completed [facility] HIB 4 Dose Schedule Unknown Completed [facility] HEPATITIS A Unknown Completed [facility] HEPATITIS A Unknown Completed [facility] Hep B, Adol or Pedi Dosage Unknown Completed [facility] Hep B, Adol or Pedi Dosage Unknown Completed [facility] Hep B, Adol or Pedi Dosage Unknown Completed [facility] HPV Unknown Completed [facility] HPV Unknown Completed [facility] Influenza Virus Vaccine Unknown Completed [facility] Meningococcal Vaccine Unknown Completed [facility] Varicella (varivax)(chicken pox) Unknown Completed [facility] MMR Unknown Completed [facility] Varicella (varivax)(chicken pox) Unknown Completed [facility] Rho (d) Immune Globulin Unknown Completed [facility] TDAP Unknown Completed [facility] Influenza Virus Vaccine Quad IM, Preserv and ABX Free 6 MO-64 YRS (FLUCELVAX) Unknown Completed [facility] Influenza Virus Vaccine Unknown Completed [facility] Influenza Virus Vaccine Unknown Completed [facility] Influenza Virus Vaccine Unknown Completed [facility] Influenza Virus Vaccine Unknown Completed [facility] TDAP Unknown Completed [facility] TDAP Unknown Completed [facility] TDAP Unknown Completed [facility] TDAP Unknown Completed [facility] Heamophilus Influenza B Unknown Completed [facility] Heamophilus Influenza B Unknown Completed [facility] Heamophilus Influenza B Unknown Completed [facility] Heamophilus Influenza B Unknown Completed [facility] Influenza Virus Vaccine Quad IM 3+ YRS Unknown Completed [facility] Influenza Virus Vaccine Quad IM 3+ YRS Unknown Completed [facility] Influenza Virus Vaccine Nasal Unknown Completed [facility] Influenza Virus Vaccine Nasal Unknown Completed [facility] IPV Unknown Completed [facility] IPV Unknown Completed [facility] IPV Unknown Completed [facility] Influenza Virus Vaccine Unknown Completed [facility] TDAP Unknown Completed [facility] Meningococcal Polysaccharide (groups A, C, Y and W-135) conjugate vaccine (MCV4P) Unknown Completed [facility] Rho (d) Immune Globulin Unknown Completed [facility] Influenza Virus Vaccine Quad .5 mL IM 6+ MO (FLUZONE/FLULAVAL/FL UARIX) Unknown Completed [facility] TDAP (ADACEL) VACCINE Unknown Completed [facility] MMR Unknown Completed [facility] Rho (d) Immune Globulin Unknown Completed [facility] DTAP Unknown Completed [facility] DTAP Unknown Completed [facility] DTAP Unknown Completed [facility] DTAP Unknown Completed [facility] HIB 4 Dose Schedule Unknown Completed [facility] HIB 4 Dose Schedule Unknown Completed [facility] HIB 4 Dose Schedule Unknown Completed [facility] HIB 4 Dose Schedule Unknown Completed [facility] HEPATITIS A Unknown Completed [facility] HEPATITIS A Unknown Completed [facility] Hep B, Adol or Pedi Dosage Unknown Completed [facility] Hep B, Adol or Pedi Dosage Unknown Completed [facility] Hep B, Adol or Pedi Dosage Unknown Completed [facility] HPV Unknown Completed [facility] HPV Unknown Completed [facility] Influenza Virus Vaccine Unknown Completed [facility] Meningococcal Vaccine Unknown Completed [facility] Varicella (varivax)(chicken pox) Unknown Completed [facility] MMR Unknown Completed [facility] Varicella (varivax)(chicken pox) Unknown Completed [facility] Rho (d) Immune Globulin Unknown Completed [facility] TDAP Unknown Completed [facility] Influenza Virus Vaccine Quad IM, Preserv and ABX Free 6 MO-64 YRS (FLUCELVAX) Unknown Completed [facility] Influenza Virus Vaccine Unknown Completed [facility] Influenza Virus Vaccine Unknown Completed [facility] Influenza Virus Vaccine Unknown Completed [facility] Influenza Virus Vaccine Unknown Completed [facility] TDAP Unknown Completed [facility] TDAP Unknown Completed [facility] TDAP Unknown Completed [facility] TDAP Unknown Completed [facility] Heamophilus Influenza B Unknown Completed [facility] Heamophilus Influenza B Unknown Completed [facility] Heamophilus Influenza B Unknown Completed [facility] Heamophilus Influenza B Unknown Completed [facility] Influenza Virus Vaccine Quad IM 3+ YRS Unknown Completed [facility] Influenza Virus Vaccine Quad IM 3+ YRS Unknown Completed [facility] Influenza Virus Vaccine Nasal Unknown Completed [facility] Influenza Virus Vaccine Nasal Unknown Completed [facility] IPV Unknown Completed [facility] IPV Unknown Completed [facility] IPV Unknown Completed [facility] Influenza Virus Vaccine Unknown Completed [facility] TDAP Unknown Completed [facility] Meningococcal Polysaccharide (groups A, C, Y and W-135) conjugate vaccine (MCV4P) Unknown Completed [facility] Rho (d) Immune Globulin Unknown Completed [facility] Influenza Virus Vaccine Quad .5 mL IM 6+ MO (FLUZONE/FLULAVAL/FL UARIX) Unknown Completed [facility] TDAP (ADACEL) VACCINE Unknown Completed [facility] MMR Unknown Completed [facility] Rho (d) Immune Globulin Unknown Completed [facility] DTAP Unknown Completed [facility] DTAP Unknown Completed [facility] DTAP Unknown Completed [facility] DTAP Unknown Completed [facility] HIB 4 Dose Schedule Unknown Completed [facility] HIB 4 Dose Schedule Unknown Completed [facility] HIB 4 Dose Schedule Unknown Completed [facility] HIB 4 Dose Schedule Unknown Completed [facility] HEPATITIS A Unknown Completed [facility] HEPATITIS A Unknown Completed [facility] Hep B, Adol or Pedi Dosage Unknown Completed [facility] Hep B, Adol or Pedi Dosage Unknown Completed [facility] Hep B, Adol or Pedi Dosage Unknown Completed [facility] HPV Unknown Completed [facility] HPV Unknown Completed [facility] Influenza Virus Vaccine Unknown Completed [facility] Meningococcal Vaccine Unknown Completed [facility] Varicella (varivax)(chicken pox) Unknown Completed [facility] MMR Unknown Completed [facility] Varicella (varivax)(chicken pox) Unknown Completed [facility] Rho (d) Immune Globulin Unknown Completed [facility] TDAP Unknown Completed [facility] Influenza Virus Vaccine Quad IM, Preserv and ABX Free 6 MO-64 YRS (FLUCELVAX) Unknown Completed [facility] Influenza Virus Vaccine Unknown Completed [facility] Influenza Virus Vaccine Unknown Completed [facility] Influenza Virus Vaccine Unknown Completed [facility] Influenza Virus Vaccine Unknown Completed [facility] TDAP Unknown Completed [facility] TDAP Unknown Completed [facility] TDAP Unknown Completed [facility] TDAP Unknown Completed [facility] Heamophilus Influenza B Unknown Completed [facility] Heamophilus Influenza B Unknown Completed [facility] Heamophilus Influenza B Unknown Completed [facility] Heamophilus Influenza B Unknown Completed [facility] Influenza Virus Vaccine Quad IM 3+ YRS Unknown Completed [facility] Influenza Virus Vaccine Quad IM 3+ YRS Unknown Completed [facility] Influenza Virus Vaccine Nasal Unknown Completed [facility] Influenza Virus Vaccine Nasal Unknown Completed [facility] IPV Unknown Completed [facility] IPV Unknown Completed [facility] IPV Unknown Completed [facility] Influenza Virus Vaccine Unknown Completed [facility] TDAP Unknown Completed [facility] Meningococcal Polysaccharide (groups A, C, Y and W-135) conjugate vaccine (MCV4P) Unknown Completed [facility] Rho (d) Immune Globulin Unknown Completed [facility] Influenza Virus Vaccine Quad .5 mL IM 6+ MO (FLUZONE/FLULAVAL/FL UARIX) Unknown Completed [facility] TDAP (ADACEL) VACCINE Unknown Completed [facility] MMR Unknown Completed [facility] Rho (d) Immune Globulin Unknown Completed [facility] DTAP Unknown Completed [facility] DTAP Unknown Completed [facility] DTAP Unknown Completed [facility] DTAP Unknown Completed [facility] HIB 4 Dose Schedule Unknown Completed [facility] HIB 4 Dose Schedule Unknown Completed [facility] HIB 4 Dose Schedule Unknown Completed [facility] HIB 4 Dose Schedule Unknown Completed [facility] HEPATITIS A Unknown Completed [facility] HEPATITIS A Unknown Completed [facility] Hep B, Adol or Pedi Dosage Unknown Completed [facility] Hep B, Adol or Pedi Dosage Unknown Completed [facility] Hep B, Adol or Pedi Dosage Unknown Completed [facility] HPV Unknown Completed [facility] HPV Unknown Completed [facility] Influenza Virus Vaccine Unknown Completed [facility] Meningococcal Vaccine Unknown Completed [facility] Varicella (varivax)(chicken pox) Unknown Completed [facility] MMR Unknown Completed [facility] Varicella (varivax)(chicken pox) Unknown Completed [facility] Rho (d) Immune Globulin Unknown Completed [facility] TDAP Unknown Completed [facility] Influenza Virus Vaccine Quad IM, Preserv and ABX Free 6 MO-64 YRS (FLUCELVAX) Unknown Completed [facility] Influenza Virus Vaccine Unknown Completed [facility] Influenza Virus Vaccine Unknown Completed [facility] Influenza Virus Vaccine Unknown Completed [facility] Influenza Virus Vaccine Unknown Completed [facility] TDAP Unknown Completed [facility] TDAP Unknown Completed [facility] TDAP Unknown Completed [facility] TDAP Unknown Completed [facility] Heamophilus Influenza B Unknown Completed [facility] Heamophilus Influenza B Unknown Completed [facility] Heamophilus Influenza B Unknown Completed [facility] Heamophilus Influenza B Unknown Completed [facility] Influenza Virus Vaccine Quad IM 3+ YRS Unknown Completed [facility] Influenza Virus Vaccine Quad IM 3+ YRS Unknown Completed [facility] Influenza Virus Vaccine Nasal Unknown Completed [facility] Influenza Virus Vaccine Nasal Unknown Completed [facility] IPV Unknown Completed [facility] IPV Unknown Completed [facility] IPV Unknown Completed [facility] Influenza Virus Vaccine Unknown Completed [facility] TDAP Unknown Completed [facility] Meningococcal Polysaccharide (groups A, C, Y and W-135) conjugate vaccine (MCV4P) Unknown Completed [facility] Rho (d) Immune Globulin Unknown Completed [facility] Influenza Virus Vaccine Quad .5 mL IM 6+ MO (FLUZONE/FLULAVAL/FL UARIX) Unknown Completed [facility] TDAP (ADACEL) VACCINE Unknown Completed [facility] MMR Unknown Completed [facility] Rho (d) Immune Globulin Unknown Completed [facility] DTAP Unknown Completed [facility] DTAP Unknown Completed [facility] DTAP Unknown Completed [facility] DTAP Unknown Completed [facility] HIB 4 Dose Schedule Unknown Completed [facility] HIB 4 Dose Schedule Unknown Completed [facility] HIB 4 Dose Schedule Unknown Completed [facility] HIB 4 Dose Schedule Unknown Completed [facility] HEPATITIS A Unknown Completed [facility] HEPATITIS A Unknown Completed [facility] Hep B, Adol or Pedi Dosage Unknown Completed [facility] Hep B, Adol or Pedi Dosage Unknown Completed [facility] Hep B, Adol or Pedi Dosage Unknown Completed [facility] HPV Unknown Completed [facility] HPV Unknown Completed [facility] Influenza Virus Vaccine Unknown Completed [facility] Meningococcal Vaccine Unknown Completed [facility] Varicella (varivax)(chicken pox) Unknown Completed [facility] MMR Unknown Completed [facility] Varicella (varivax)(chicken pox) Unknown Completed [facility] Rho (d) Immune Globulin Unknown Completed [facility] TDAP Unknown Completed [facility] Influenza Virus Vaccine Quad IM, Preserv and ABX Free 6 MO-64 YRS (FLUCELVAX) Unknown Completed [facility] Influenza Virus Vaccine Unknown Completed [facility] Influenza Virus Vaccine Unknown Completed [facility] Influenza Virus Vaccine Unknown Completed [facility] Influenza Virus Vaccine Unknown Completed [facility] TDAP Unknown Completed [facility] TDAP Unknown Completed [facility] TDAP Unknown Completed [facility] TDAP Unknown Completed [facility] Heamophilus Influenza B Unknown Completed [facility] Heamophilus Influenza B Unknown Completed [facility] Heamophilus Influenza B Unknown Completed [facility] Heamophilus Influenza B Unknown Completed [facility] Influenza Virus Vaccine Quad IM 3+ YRS Unknown Completed [facility] Influenza Virus Vaccine Quad IM 3+ YRS Unknown Completed [facility] Influenza Virus Vaccine Nasal Unknown Completed [facility] Influenza Virus Vaccine Nasal Unknown Completed [facility] IPV Unknown Completed [facility] IPV Unknown Completed [facility] IPV Unknown Completed [facility] Influenza Virus Vaccine Unknown Completed [facility] TDAP Unknown Completed [facility] Meningococcal Polysaccharide (groups A, C, Y and W-135) conjugate vaccine (MCV4P) Unknown Completed [facility] Rho (d) Immune Globulin Unknown Completed [facility] Influenza Virus Vaccine Quad .5 mL IM 6+ MO (FLUZONE/FLULAVAL/FL UARIX) Unknown Completed [facility] TDAP (ADACEL) VACCINE Unknown Completed [facility] MMR Unknown Completed [facility] Rho (d) Immune Globulin Unknown Completed [facility] DTAP Unknown Completed [facility] DTAP Unknown Completed [facility] DTAP Unknown Completed [facility] DTAP Unknown Completed [facility] HIB 4 Dose Schedule Unknown Completed [facility] HIB 4 Dose Schedule Unknown Completed [facility] HIB 4 Dose Schedule Unknown Completed [facility] HIB 4 Dose Schedule Unknown Completed [facility] HEPATITIS A Unknown Completed [facility] HEPATITIS A Unknown Completed [facility] Hep B, Adol or Pedi Dosage Unknown Completed [facility] Hep B, Adol or Pedi Dosage Unknown Completed [facility] Hep B, Adol or Pedi Dosage Unknown Completed [facility] HPV Unknown Completed [facility] HPV Unknown Completed [facility] Influenza Virus Vaccine Unknown Completed [facility] Meningococcal Vaccine Unknown Completed [facility] Varicella (varivax)(chicken pox) Unknown Completed [facility] MMR Unknown Completed [facility] Varicella (varivax)(chicken pox) Unknown Completed [facility] Rho (d) Immune Globulin Unknown Completed [facility] TDAP Unknown Completed [facility] Influenza Virus Vaccine Quad IM, Preserv and ABX Free 6 MO-64 YRS (FLUCELVAX) Unknown Completed [facility] Influenza Virus Vaccine Unknown Completed [facility] Influenza Virus Vaccine Unknown Completed [facility] Influenza Virus Vaccine Unknown Completed [facility] Influenza Virus Vaccine Unknown Completed [facility] TDAP Unknown Completed [facility] TDAP Unknown Completed [facility] TDAP Unknown Completed [facility] TDAP Unknown Completed [facility] Heamophilus Influenza B Unknown Completed [facility] Heamophilus Influenza B Unknown Completed [facility] Heamophilus Influenza B Unknown Completed [facility] Heamophilus Influenza B Unknown Completed [facility] Influenza Virus Vaccine Quad IM 3+ YRS Unknown Completed [facility] Influenza Virus Vaccine Quad IM 3+ YRS Unknown Completed [facility] Influenza Virus Vaccine Nasal Unknown Completed [facility] Influenza Virus Vaccine Nasal Unknown Completed [facility] IPV Unknown Completed [facility] IPV Unknown Completed [facility] IPV Unknown Completed [facility] Influenza Virus Vaccine Unknown Completed [facility] TDAP Unknown Completed [facility] Meningococcal Polysaccharide (groups A, C, Y and W-135) conjugate vaccine (MCV4P) Unknown Completed [facility] Influenza Virus Vaccine Quad .5 mL IM 6+ MO (FLUZONE/FLULAVAL/FL UARIX) Unknown Completed [facility] Influenza Virus Vaccine Quad .5 mL IM 6+ MO (FLUZONE/FLULAVAL/FL UARIX) Unknown Completed [facility] Influenza, Trivalent, Adjuvanted Unknown Completed [facility] Influenza, Trivalent, Adjuvanted Unknown Completed [facility] DTaP, Unspecified Formulation Unknown Completed [facility] DTaP, Unspecified Formulation Unknown Completed [facility] DTaP, Unspecified Formulation Unknown Completed [facility] DTaP, Unspecified Formulation Unknown Completed [facility] Influenza Virus Vaccine Quad Nasal (Flumist) Unknown Completed [facility] Flu Trivalent Unknown Completed [facility] Flu Trivalent Unknown Completed [facility] Flu Whole Virus Unknown Completed [facility] Influenza Virus Vaccine Quad IM, Preserv and ABX Free 6 MO-64 YRS (FLUCELVAX) Unknown Completed [facility] Rho (d) Immune Globulin Unknown Completed [facility] Influenza Virus Vaccine Quad .5 mL IM 6+ MO (FLUZONE/FLULAVAL/FL UARIX) Unknown Completed [facility] TDAP (ADACEL) VACCINE Unknown Completed [facility] MMR Unknown Completed [facility] Rho (d) Immune Globulin Unknown Completed [facility] DTAP Unknown Completed [facility] DTAP Unknown Completed [facility] DTAP Unknown Completed [facility] DTAP Unknown Completed [facility] HIB 4 Dose Schedule Unknown Completed [facility] HIB 4 Dose Schedule Unknown Completed [facility] HIB 4 Dose Schedule Unknown Completed [facility] HIB 4 Dose Schedule Unknown Completed [facility] HEPATITIS A Unknown Completed [facility] HEPATITIS A Unknown Completed [facility] Hep B, Adol or Pedi Dosage Unknown Completed [facility] Hep B, Adol or Pedi Dosage Unknown Completed [facility] Hep B, Adol or Pedi Dosage Unknown Completed [facility] HPV Unknown Completed [facility] HPV Unknown Completed [facility] Influenza Virus Vaccine Unknown Completed [facility] Meningococcal Vaccine Unknown Completed [facility] Varicella (varivax)(chicken pox) Unknown Completed [facility] MMR Unknown Completed [facility] Varicella (varivax)(chicken pox) Unknown Completed [facility] Rho (d) Immune Globulin Unknown Completed [facility] TDAP Unknown Completed [facility] Influenza Virus Vaccine Quad IM, Preserv and ABX Free 6 MO-64 YRS (FLUCELVAX) Unknown Completed [facility] Influenza Virus Vaccine Unknown Completed [facility] Influenza Virus Vaccine Unknown Completed [facility] Influenza Virus Vaccine Unknown Completed [facility] Influenza Virus Vaccine Unknown Completed [facility] TDAP Unknown Completed [facility] TDAP Unknown Completed [facility] TDAP Unknown Completed [facility] TDAP Unknown Completed [facility] Heamophilus Influenza B Unknown Completed [facility] Heamophilus Influenza B Unknown Completed [facility] Heamophilus Influenza B Unknown Completed [facility] Heamophilus Influenza B Unknown Completed [facility] Influenza Virus Vaccine Quad IM 3+ YRS Unknown Completed [facility] Influenza Virus Vaccine Quad IM 3+ YRS Unknown Completed [facility] Influenza Virus Vaccine Nasal Unknown Completed [facility] Influenza Virus Vaccine Nasal Unknown Completed [facility] IPV Unknown Completed [facility] IPV Unknown Completed [facility] IPV Unknown Completed [facility] Influenza Virus Vaccine Unknown Completed [facility] TDAP Unknown Completed [facility] Meningococcal Polysaccharide (groups A, C, Y and W-135) conjugate vaccine (MCV4P) Unknown Completed [facility] Influenza Virus Vaccine Quad .5 mL IM 6+ MO (FLUZONE/FLULAVAL/FL UARIX) Unknown Completed [facility] Influenza Virus Vaccine Quad .5 mL IM 6+ MO (FLUZONE/FLULAVAL/FL UARIX) Unknown Completed [facility] Influenza, Trivalent, Adjuvanted Unknown Completed [facility] Influenza, Trivalent, Adjuvanted Unknown Completed [facility] DTaP, Unspecified Formulation Unknown Completed [facility] DTaP, Unspecified Formulation Unknown Completed [facility] DTaP, Unspecified Formulation Unknown Completed [facility] DTaP, Unspecified Formulation Unknown Completed [facility] Influenza Virus Vaccine Quad Nasal (Flumist) Unknown Completed [facility] Flu Trivalent Unknown Completed [facility] Flu Trivalent Unknown Completed [facility] Flu Whole Virus Unknown Completed [facility] Influenza Virus Vaccine Quad IM, Preserv and ABX Free 6 MO-64 YRS (FLUCELVAX) Unknown Completed [facility] Rho (d) Immune Globulin Unknown Completed [facility] Influenza Virus Vaccine Quad .5 mL IM 6+ MO (FLUZONE/FLULAVAL/FL UARIX) Unknown Completed [facility] TDAP (ADACEL) VACCINE Unknown Completed [facility] MMR Unknown Completed [facility] Rho (d) Immune Globulin Unknown Completed [facility] DTAP Unknown Completed [facility] DTAP Unknown Completed [facility] DTAP Unknown Completed [facility] DTAP Unknown Completed [facility] HIB 4 Dose Schedule Unknown Completed [facility] HIB 4 Dose Schedule Unknown Completed [facility] HIB 4 Dose Schedule Unknown Completed [facility] HIB 4 Dose Schedule Unknown Completed [facility] HEPATITIS A Unknown Completed [facility] HEPATITIS A Unknown Completed [facility] Hep B, Adol or Pedi Dosage Unknown Completed [facility] Hep B, Adol or Pedi Dosage Unknown Completed [facility] Hep B, Adol or Pedi Dosage Unknown Completed [facility] HPV Unknown Completed [facility] HPV Unknown Completed [facility] Influenza Virus Vaccine Unknown Completed [facility] Meningococcal Vaccine Unknown Completed [facility] Varicella (varivax)(chicken pox) Unknown Completed [facility] MMR Unknown Completed [facility] Varicella (varivax)(chicken pox) Unknown Completed [facility] Rho (d) Immune Globulin Unknown Completed [facility] TDAP Unknown Completed [facility] Influenza Virus Vaccine Quad IM, Preserv and ABX Free 6 MO-64 YRS (FLUCELVAX) Unknown Completed [facility] Influenza Virus Vaccine Unknown Completed [facility] Influenza Virus Vaccine Unknown Completed [facility] Influenza Virus Vaccine Unknown Completed [facility] Influenza Virus Vaccine Unknown Completed [facility] TDAP Unknown Completed [facility] TDAP Unknown Completed [facility] TDAP Unknown Completed [facility] TDAP Unknown Completed [facility] Heamophilus Influenza B Unknown Completed [facility] Heamophilus Influenza B Unknown Completed [facility] Heamophilus Influenza B Unknown Completed [facility] Heamophilus Influenza B Unknown Completed [facility] Influenza Virus Vaccine Quad IM 3+ YRS Unknown Completed [facility] Influenza Virus Vaccine Quad IM 3+ YRS Unknown Completed [facility] Influenza Virus Vaccine Nasal Unknown Completed [facility] Influenza Virus Vaccine Nasal Unknown Completed [facility] IPV Unknown Completed [facility] IPV Unknown Completed [facility] IPV Unknown Completed [facility] Influenza Virus Vaccine Unknown Completed [facility] TDAP Unknown Completed [facility] Meningococcal Polysaccharide (groups A, C, Y and W-135) conjugate vaccine (MCV4P) Unknown Completed [facility] Influenza Virus Vaccine Quad .5 mL IM 6+ MO (FLUZONE/FLULAVAL/FL UARIX) Unknown Completed [facility] Influenza Virus Vaccine Quad .5 mL IM 6+ MO (FLUZONE/FLULAVAL/FL UARIX) Unknown Completed [facility] Influenza, Trivalent, Adjuvanted Unknown Completed [facility] Influenza, Trivalent, Adjuvanted Unknown Completed [facility] DTaP, Unspecified Formulation Unknown Completed [facility] DTaP, Unspecified Formulation Unknown Completed [facility] DTaP, Unspecified Formulation Unknown Completed [facility] DTaP, Unspecified Formulation Unknown Completed [facility] Influenza Virus Vaccine Quad Nasal (Flumist) Unknown Completed [facility] Flu Trivalent Unknown Completed [facility] Flu Trivalent Unknown Completed [facility] Flu Whole Virus Unknown Completed [facility] Influenza Virus Vaccine Quad IM, Preserv and ABX Free 6 MO-64 YRS (FLUCELVAX) Unknown Completed [facility] Rho (d) Immune Globulin Unknown Completed [facility] Influenza Virus Vaccine Quad .5 mL IM 6+ MO (FLUZONE/FLULAVAL/FL UARIX) Unknown Completed [facility] TDAP (ADACEL) VACCINE Unknown Completed [facility] MMR Unknown Completed [facility] Rho (d) Immune Globulin Unknown Completed [facility] DTAP Unknown Completed [facility] DTAP Unknown Completed [facility] DTAP Unknown Completed [facility] DTAP Unknown Completed [facility] HIB 4 Dose Schedule Unknown Completed [facility] HIB 4 Dose Schedule Unknown Completed [facility] HIB 4 Dose Schedule Unknown Completed [facility] HIB 4 Dose Schedule Unknown Completed [facility] HEPATITIS A Unknown Completed [facility] HEPATITIS A Unknown Completed [facility] Hep B, Adol or Pedi Dosage Unknown Completed [facility] Hep B, Adol or Pedi Dosage Unknown Completed [facility] Hep B, Adol or Pedi Dosage Unknown Completed [facility] HPV Unknown Completed [facility] HPV Unknown Completed [facility] Influenza Virus Vaccine Unknown Completed [facility] Meningococcal Vaccine Unknown Completed [facility] Varicella (varivax)(chicken pox) Unknown Completed [facility] MMR Unknown Completed [facility] Varicella (varivax)(chicken pox) Unknown Completed [facility] Rho (d) Immune Globulin Unknown Completed [facility] TDAP Unknown Completed [facility] Influenza Virus Vaccine Quad IM, Preserv and ABX Free 6 MO-64 YRS (FLUCELVAX) Unknown Completed [facility] Influenza Virus Vaccine Unknown Completed [facility] Influenza Virus Vaccine Unknown Completed [facility] Influenza Virus Vaccine Unknown Completed [facility] Influenza Virus Vaccine Unknown Completed [facility] TDAP Unknown Completed [facility] TDAP Unknown Completed [facility] TDAP Unknown Completed [facility] TDAP Unknown Completed [facility] Heamophilus Influenza B Unknown Completed [facility] Heamophilus Influenza B Unknown Completed [facility] Heamophilus Influenza B Unknown Completed [facility] Heamophilus Influenza B Unknown Completed [facility] Influenza Virus Vaccine Quad IM 3+ YRS Unknown Completed [facility] Influenza Virus Vaccine Quad IM 3+ YRS Unknown Completed [facility] Influenza Virus Vaccine Nasal Unknown Completed [facility] Influenza Virus Vaccine Nasal Unknown Completed [facility] IPV Unknown Completed [facility] IPV Unknown Completed [facility] IPV Unknown Completed [facility] Influenza Virus Vaccine Unknown Completed [facility] TDAP Unknown Completed [facility] Meningococcal Polysaccharide (groups A, C, Y and W-135) conjugate vaccine (MCV4P) Unknown Completed [facility] Influenza Virus Vaccine Quad .5 mL IM 6+ MO (FLUZONE/FLULAVAL/FL UARIX) Unknown Completed [facility] Influenza Virus Vaccine Quad .5 mL IM 6+ MO (FLUZONE/FLULAVAL/FL UARIX) Unknown Completed [facility] Influenza, Trivalent, Adjuvanted Unknown Completed [facility] Influenza, Trivalent, Adjuvanted Unknown Completed [facility] DTaP, Unspecified Formulation Unknown Completed [facility] DTaP, Unspecified Formulation Unknown Completed [facility] DTaP, Unspecified Formulation Unknown Completed [facility] DTaP, Unspecified Formulation Unknown Completed [facility] Influenza Virus Vaccine Quad Nasal (Flumist) Unknown Completed [facility] Flu Trivalent Unknown Completed [facility] Flu Trivalent Unknown Completed [facility] Flu Whole Virus Unknown Completed [facility] Influenza Virus Vaccine Quad IM, Preserv and ABX Free 6 MO-64 YRS (FLUCELVAX) Unknown Completed [facility] Rho (d) Immune Globulin Unknown Completed [facility] Influenza Virus Vaccine Quad .5 mL IM 6+ MO (FLUZONE/FLULAVAL/FL UARIX) Unknown Completed [facility] TDAP (ADACEL) VACCINE Unknown Completed [facility] MMR Unknown Completed [facility] Rho (d) Immune Globulin Unknown Completed [facility] DTAP Unknown Completed [facility] DTAP Unknown Completed [facility] DTAP Unknown Completed [facility] DTAP Unknown Completed [facility] HIB 4 Dose Schedule Unknown Completed [facility] HIB 4 Dose Schedule Unknown Completed [facility] HIB 4 Dose Schedule Unknown Completed [facility] HIB 4 Dose Schedule Unknown Completed [facility] HEPATITIS A Unknown Completed [facility] HEPATITIS A Unknown Completed [facility] Hep B, Adol or Pedi Dosage Unknown Completed [facility] Hep B, Adol or Pedi Dosage Unknown Completed [facility] Hep B, Adol or Pedi Dosage Unknown Completed [facility] HPV Unknown Completed [facility] HPV Unknown Completed [facility] Influenza Virus Vaccine Unknown Completed [facility] Meningococcal Vaccine Unknown Completed [facility] Varicella (varivax)(chicken pox) Unknown Completed [facility] MMR Unknown Completed [facility] Varicella (varivax)(chicken pox) Unknown Completed [facility] Rho (d) Immune Globulin Unknown Completed [facility] TDAP Unknown Completed [facility] Influenza Virus Vaccine Quad IM, Preserv and ABX Free 6 MO-64 YRS (FLUCELVAX) Unknown Completed [facility] Influenza Virus Vaccine Unknown Completed [facility] Influenza Virus Vaccine Unknown Completed [facility] Influenza Virus Vaccine Unknown Completed [facility] Influenza Virus Vaccine Unknown Completed [facility] TDAP Unknown Completed [facility] TDAP Unknown Completed [facility] TDAP Unknown Completed [facility] TDAP Unknown Completed [facility] Heamophilus Influenza B Unknown Completed [facility] Heamophilus Influenza B Unknown Completed [facility] Heamophilus Influenza B Unknown Completed [facility] Heamophilus Influenza B Unknown Completed [facility] Influenza Virus Vaccine Quad IM 3+ YRS Unknown Completed [facility] Influenza Virus Vaccine Quad IM 3+ YRS Unknown Completed [facility] Influenza Virus Vaccine Nasal Unknown Completed [facility] Influenza Virus Vaccine Nasal Unknown Completed [facility] IPV Unknown Completed [facility] IPV Unknown Completed [facility] IPV Unknown Completed [facility] Influenza Virus Vaccine Unknown Completed [facility] TDAP Unknown Completed [facility] Meningococcal Polysaccharide (groups A, C, Y and W-135) conjugate vaccine (MCV4P) Unknown Completed [facility] Influenza Virus Vaccine Quad .5 mL IM 6+ MO (FLUZONE/FLULAVAL/FL UARIX) Unknown Completed [facility] Influenza Virus Vaccine Quad .5 mL IM 6+ MO (FLUZONE/FLULAVAL/FL UARIX) Unknown Completed [facility] Influenza, Trivalent, Adjuvanted Unknown Completed [facility] Influenza, Trivalent, Adjuvanted Unknown Completed [facility] DTaP, Unspecified Formulation Unknown Completed [facility] DTaP, Unspecified Formulation Unknown Completed [facility] DTaP, Unspecified Formulation Unknown Completed [facility] DTaP, Unspecified Formulation Unknown Completed [facility] Influenza Virus Vaccine Quad Nasal (Flumist) Unknown Completed [facility] Flu Trivalent Unknown Completed [facility] Flu Trivalent Unknown Completed [facility] Flu Whole Virus Unknown Completed [facility] Influenza Virus Vaccine Quad IM, Preserv and ABX Free 6 MO-64 YRS (FLUCELVAX) Unknown Completed [facility] Rho (d) Immune Globulin Unknown Completed [facility] Influenza Virus Vaccine Quad .5 mL IM 6+ MO (FLUZONE/FLULAVAL/FL UARIX) Unknown Completed [facility] TDAP (ADACEL) VACCINE Unknown Completed [facility] MMR Unknown Completed [facility] Rho (d) Immune Globulin Unknown Completed [facility] DTAP Unknown Completed [facility] DTAP Unknown Completed [facility] DTAP Unknown Completed [facility] DTAP Unknown Completed [facility] HIB 4 Dose Schedule Unknown Completed [facility] HIB 4 Dose Schedule Unknown Completed [facility] HIB 4 Dose Schedule Unknown Completed [facility] HIB 4 Dose Schedule Unknown Completed [facility] HEPATITIS A Unknown Completed [facility] HEPATITIS A Unknown Completed [facility] Hep B, Adol or Pedi Dosage Unknown Completed [facility] Hep B, Adol or Pedi Dosage Unknown Completed [facility] Hep B, Adol or Pedi Dosage Unknown Completed [facility] HPV Unknown Completed [facility] HPV Unknown Completed [facility] Influenza Virus Vaccine Unknown Completed [facility] Meningococcal Vaccine Unknown Completed [facility] Varicella (varivax)(chicken pox) Unknown Completed [facility] MMR Unknown Completed [facility] Varicella (varivax)(chicken pox) Unknown Completed [facility] Rho (d) Immune Globulin Unknown Completed [facility] TDAP Unknown Completed [facility] Influenza Virus Vaccine Quad IM, Preserv and ABX Free 6 MO-64 YRS (FLUCELVAX) Unknown Completed [facility] Influenza Virus Vaccine Unknown Completed [facility] Influenza Virus Vaccine Unknown Completed [facility] Influenza Virus Vaccine Unknown Completed [facility] Influenza Virus Vaccine Unknown Completed [facility] TDAP Unknown Completed [facility] TDAP Unknown Completed [facility] TDAP Unknown Completed [facility] TDAP Unknown Completed [facility] Heamophilus Influenza B Unknown Completed [facility] Heamophilus Influenza B Unknown Completed [facility] Heamophilus Influenza B Unknown Completed [facility] Heamophilus Influenza B Unknown Completed [facility] Influenza Virus Vaccine Quad IM 3+ YRS Unknown Completed [facility] Influenza Virus Vaccine Quad IM 3+ YRS Unknown Completed [facility] Influenza Virus Vaccine Nasal Unknown Completed [facility] Influenza Virus Vaccine Nasal Unknown Completed [facility] IPV Unknown Completed [facility] IPV Unknown Completed [facility] IPV Unknown Completed [facility] Influenza Virus Vaccine Unknown Completed [facility] TDAP Unknown Completed [facility] Meningococcal Polysaccharide (groups A, C, Y and W-135) conjugate vaccine (MCV4P) Unknown Completed [facility] Influenza Virus Vaccine Quad .5 mL IM 6+ MO (FLUZONE/FLULAVAL/FL UARIX) Unknown Completed [facility] Influenza Virus Vaccine Quad .5 mL IM 6+ MO (FLUZONE/FLULAVAL/FL UARIX) Unknown Completed [facility] Influenza, Trivalent, Adjuvanted Unknown Completed [facility] Influenza, Trivalent, Adjuvanted Unknown Completed [facility] DTaP, Unspecified Formulation Unknown Completed [facility] DTaP, Unspecified Formulation Unknown Completed [facility] DTaP, Unspecified Formulation Unknown Completed [facility] DTaP, Unspecified Formulation Unknown Completed [facility] Influenza Virus Vaccine Quad Nasal (Flumist) Unknown Completed [facility] Flu Trivalent Unknown Completed [facility] Flu Trivalent Unknown Completed [facility] Flu Whole Virus Unknown Completed [facility] Influenza Virus Vaccine Quad IM, Preserv and ABX Free 6 MO-64 YRS (FLUCELVAX) Unknown Completed [facility] Rho (d) Immune Globulin Unknown Completed [facility] Influenza Virus Vaccine Quad .5 mL IM 6+ MO (FLUZONE/FLULAVAL/FL UARIX) Unknown Completed [facility] TDAP (ADACEL) VACCINE Unknown Completed [facility] MMR Unknown Completed [facility] Rho (d) Immune Globulin Unknown Completed [facility] DTAP Unknown Completed [facility] DTAP Unknown Completed [facility] DTAP Unknown Completed [facility] DTAP Unknown Completed [facility] HIB 4 Dose Schedule Unknown Completed [facility] HIB 4 Dose Schedule Unknown Completed [facility] HIB 4 Dose Schedule Unknown Completed [facility] HIB 4 Dose Schedule Unknown Completed [facility] HEPATITIS A Unknown Completed [facility] HEPATITIS A Unknown Completed [facility] Hep B, Adol or Pedi Dosage Unknown Completed [facility] Hep B, Adol or Pedi Dosage Unknown Completed [facility] Hep B, Adol or Pedi Dosage Unknown Completed [facility] HPV Unknown Completed [facility] HPV Unknown Completed [facility] Influenza Virus Vaccine Unknown Completed [facility] Meningococcal Vaccine Unknown Completed [facility] Varicella (varivax)(chicken pox) Unknown Completed [facility] MMR Unknown Completed [facility] Varicella (varivax)(chicken pox) Unknown Completed [facility] Rho (d) Immune Globulin Unknown Completed [facility] TDAP Unknown Completed [facility] Influenza Virus Vaccine Quad IM, Preserv and ABX Free 6 MO-64 YRS (FLUCELVAX) Unknown Completed [facility] Influenza Virus Vaccine Unknown Completed [facility] Influenza Virus Vaccine Unknown Completed [facility] Influenza Virus Vaccine Unknown Completed [facility] Influenza Virus Vaccine Unknown Completed [facility] TDAP Unknown Completed [facility] TDAP Unknown Completed [facility] TDAP Unknown Completed [facility] TDAP Unknown Completed [facility] Heamophilus Influenza B Unknown Completed [facility] Heamophilus Influenza B Unknown Completed [facility] Heamophilus Influenza B Unknown Completed [facility] Heamophilus Influenza B Unknown Completed [facility] Influenza Virus Vaccine Quad IM 3+ YRS Unknown Completed [facility] Influenza Virus Vaccine Quad IM 3+ YRS Unknown Completed [facility] Influenza Virus Vaccine Nasal Unknown Completed [facility] Influenza Virus Vaccine Nasal Unknown Completed [facility] IPV Unknown Completed [facility] IPV Unknown Completed [facility] IPV Unknown Completed [facility] Influenza Virus Vaccine Unknown Completed [facility] TDAP Unknown Completed [facility] Meningococcal Polysaccharide (groups A, C, Y and W-135) conjugate vaccine (MCV4P) Unknown Completed [facility] Influenza Virus Vaccine Quad .5 mL IM 6+ MO (FLUZONE/FLULAVAL/FL UARIX) Unknown Completed [facility] Influenza Virus Vaccine Quad .5 mL IM 6+ MO (FLUZONE/FLULAVAL/FL UARIX) Unknown Completed [facility] Influenza, Trivalent, Adjuvanted Unknown Completed [facility] Influenza, Trivalent, Adjuvanted Unknown Completed [facility] DTaP, Unspecified Formulation Unknown Completed [facility] DTaP, Unspecified Formulation Unknown Completed [facility] DTaP, Unspecified Formulation Unknown Completed [facility] DTaP, Unspecified Formulation Unknown Completed [facility] Influenza Virus Vaccine Quad Nasal (Flumist) Unknown Completed [facility] Flu Trivalent Unknown Completed [facility] Flu Trivalent Unknown Completed [facility] Flu Whole Virus Unknown Completed [facility] Influenza Virus Vaccine Quad IM, Preserv and ABX Free 6 MO-64 YRS (FLUCELVAX) Unknown Completed [facility] Rho (d) Immune Globulin Unknown Completed [facility] Influenza Virus Vaccine Quad .5 mL IM 6+ MO (FLUZONE/FLULAVAL/FL UARIX) Unknown Completed [facility] TDAP (ADACEL) VACCINE Unknown Completed [facility] MMR Unknown Completed [facility] Rho (d) Immune Globulin Unknown Completed [facility] DTAP Unknown Completed [facility] DTAP Unknown Completed [facility] DTAP Unknown Completed [facility] DTAP Unknown Completed [facility] HIB 4 Dose Schedule Unknown Completed [facility] HIB 4 Dose Schedule Unknown Completed [facility] HIB 4 Dose Schedule Unknown Completed [facility] HIB 4 Dose Schedule Unknown Completed [facility] HEPATITIS A Unknown Completed [facility] HEPATITIS A Unknown Completed [facility] Hep B, Adol or Pedi Dosage Unknown Completed [facility] Hep B, Adol or Pedi Dosage Unknown Completed [facility] Hep B, Adol or Pedi Dosage Unknown Completed [facility] HPV Unknown Completed [facility] HPV Unknown Completed [facility] Influenza Virus Vaccine Unknown Completed [facility] Meningococcal Vaccine Unknown Completed [facility] Varicella (varivax)(chicken pox) Unknown Completed [facility] MMR Unknown Completed [facility] Varicella (varivax)(chicken pox) Unknown Completed [facility] Rho (d) Immune Globulin Unknown Completed [facility] TDAP Unknown Completed [facility] Influenza Virus Vaccine Quad IM, Preserv and ABX Free 6 MO-64 YRS (FLUCELVAX) Unknown Completed [facility] Influenza Virus Vaccine Unknown Completed [facility] Influenza Virus Vaccine Unknown Completed [facility] Influenza Virus Vaccine Unknown Completed [facility] Influenza Virus Vaccine Unknown Completed [facility] TDAP Unknown Completed [facility] TDAP Unknown Completed [facility] TDAP Unknown Completed [facility] TDAP Unknown Completed [facility] Heamophilus Influenza B Unknown Completed [facility] Heamophilus Influenza B Unknown Completed [facility] Heamophilus Influenza B Unknown Completed [facility] Heamophilus Influenza B Unknown Completed [facility] Influenza Virus Vaccine Quad IM 3+ YRS Unknown Completed [facility] Influenza Virus Vaccine Quad IM 3+ YRS Unknown Completed [facility] Influenza Virus Vaccine Nasal Unknown Completed [facility] Influenza Virus Vaccine Nasal Unknown Completed [facility] IPV Unknown Completed [facility] IPV Unknown Completed [facility] IPV Unknown Completed [facility] Influenza Virus Vaccine Unknown Completed [facility] TDAP Unknown Completed [facility] Meningococcal Polysaccharide (groups A, C, Y and W-135) conjugate vaccine (MCV4P) Unknown Completed [facility] Influenza Virus Vaccine Quad .5 mL IM 6+ MO (FLUZONE/FLULAVAL/FL UARIX) Unknown Completed [facility] Influenza Virus Vaccine Quad .5 mL IM 6+ MO (FLUZONE/FLULAVAL/FL UARIX) Unknown Completed [facility] Influenza, Trivalent, Adjuvanted Unknown Completed [facility] Influenza, Trivalent, Adjuvanted Unknown Completed [facility] DTaP, Unspecified Formulation Unknown Completed [facility] DTaP, Unspecified Formulation Unknown Completed [facility] DTaP, Unspecified Formulation Unknown Completed [facility] DTaP, Unspecified Formulation Unknown Completed [facility] Influenza Virus Vaccine Quad Nasal (Flumist) Unknown Completed [facility] Flu Trivalent Unknown Completed [facility] Flu Trivalent Unknown Completed [facility] Flu Whole Virus Unknown Completed [facility] Influenza Virus Vaccine Quad IM, Preserv and ABX Free 6 MO-64 YRS (FLUCELVAX) Unknown Completed [facility] Rho (d) Immune Globulin Unknown Completed [facility] Influenza Virus Vaccine Quad .5 mL IM 6+ MO (FLUZONE/FLULAVAL/FL UARIX) Unknown Completed [facility] TDAP (ADACEL) VACCINE Unknown Completed [facility] MMR Unknown Completed [facility] Rho (d) Immune Globulin Unknown Completed [facility] DTAP Unknown Completed [facility] DTAP Unknown Completed [facility] DTAP Unknown Completed [facility] DTAP Unknown Completed [facility] HIB 4 Dose Schedule Unknown Completed [facility] HIB 4 Dose Schedule Unknown Completed [facility] HIB 4 Dose Schedule Unknown Completed [facility] HIB 4 Dose Schedule Unknown Completed [facility] HEPATITIS A Unknown Completed [facility] HEPATITIS A Unknown Completed [facility] Hep B, Adol or Pedi Dosage Unknown Completed [facility] Hep B, Adol or Pedi Dosage Unknown Completed [facility] Hep B, Adol or Pedi Dosage Unknown Completed [facility] HPV Unknown Completed [facility] HPV Unknown Completed [facility] Influenza Virus Vaccine Unknown Completed [facility] Meningococcal Vaccine Unknown Completed [facility] Varicella (varivax)(chicken pox) Unknown Completed [facility] MMR Unknown Completed [facility] Varicella (varivax)(chicken pox) Unknown Completed [facility] Rho (d) Immune Globulin Unknown Completed [facility] TDAP Unknown Completed [facility] Influenza Virus Vaccine Quad IM, Preserv and ABX Free 6 MO-64 YRS (FLUCELVAX) Unknown Completed [facility] Influenza Virus Vaccine Unknown Completed [facility] Influenza Virus Vaccine Unknown Completed [facility] Influenza Virus Vaccine Unknown Completed [facility] Influenza Virus Vaccine Unknown Completed [facility] TDAP Unknown Completed [facility] TDAP Unknown Completed [facility] TDAP Unknown Completed [facility] TDAP Unknown Completed [facility] Heamophilus Influenza B Unknown Completed [facility] Heamophilus Influenza B Unknown Completed [facility] Heamophilus Influenza B Unknown Completed [facility] Heamophilus Influenza B Unknown Completed [facility] Influenza Virus Vaccine Quad IM 3+ YRS Unknown Completed [facility] Influenza Virus Vaccine Quad IM 3+ YRS Unknown Completed [facility] Influenza Virus Vaccine Nasal Unknown Completed [facility] Influenza Virus Vaccine Nasal Unknown Completed [facility] IPV Unknown Completed [facility] IPV Unknown Completed [facility] IPV Unknown Completed [facility] Influenza Virus Vaccine Unknown Completed [facility] TDAP Unknown Completed [facility] Meningococcal Polysaccharide (groups A, C, Y and W-135) conjugate vaccine (MCV4P) Unknown Completed [facility] Influenza Virus Vaccine Quad .5 mL IM 6+ MO (FLUZONE/FLULAVAL/FL UARIX) Unknown Completed [facility] Influenza Virus Vaccine Quad .5 mL IM 6+ MO (FLUZONE/FLULAVAL/FL UARIX) Unknown Completed [facility] Influenza, Trivalent, Adjuvanted Unknown Completed [facility] Influenza, Trivalent, Adjuvanted Unknown Completed [facility] DTaP, Unspecified Formulation Unknown Completed [facility] DTaP, Unspecified Formulation Unknown Completed [facility] DTaP, Unspecified Formulation Unknown Completed [facility] DTaP, Unspecified Formulation Unknown Completed [facility] Influenza Virus Vaccine Quad Nasal (Flumist) Unknown Completed [facility] Flu Trivalent Unknown Completed [facility] Flu Trivalent Unknown Completed [facility] Flu Whole Virus Unknown Completed [facility] Influenza Virus Vaccine Quad IM, Preserv and ABX Free 6 MO-64 YRS (FLUCELVAX) Unknown Completed [facility] Rho (d) Immune Globulin Unknown Completed [facility] Influenza Virus Vaccine Quad .5 mL IM 6+ MO (FLUZONE/FLULAVAL/FL UARIX) Unknown Completed [facility] TDAP (ADACEL) VACCINE Unknown Completed [facility] MMR Unknown Completed [facility] Rho (d) Immune Globulin Unknown Completed [facility] DTAP Unknown Completed [facility] DTAP Unknown Completed [facility] DTAP Unknown Completed [facility] DTAP Unknown Completed [facility] Heamophilus Influenza B Unknown Completed [facility] Heamophilus Influenza B Unknown Completed [facility] Heamophilus Influenza B Unknown Completed [facility] Heamophilus Influenza B Unknown Completed [facility] HEPATITIS A Unknown Completed [facility] HEPATITIS A Unknown Completed [facility] Hep B, Adol or Pedi Dosage Unknown Completed [facility] Hep B, Adol or Pedi Dosage Unknown Completed [facility] Hep B, Adol or Pedi Dosage Unknown Completed [facility] HPV Unknown Completed [facility] HPV Unknown Completed [facility] Influenza Virus Vaccine Unknown Completed [facility] Meningococcal Vaccine Unknown Completed [facility] Varicella (varivax)(chicken pox) Unknown Completed [facility] MMR Unknown Completed [facility] Varicella (varivax)(chicken pox) Unknown Completed [facility] Rho (d) Immune Globulin Unknown Completed [facility] TDAP Unknown Completed [facility] Influenza Virus Vaccine Quad IM, Preserv and ABX Free 6 MO-64 YRS (FLUCELVAX) Unknown Completed [facility] Influenza Virus Vaccine Unknown Completed [facility] Influenza Virus Vaccine Unknown Completed [facility] Influenza Virus Vaccine Unknown Completed [facility] Influenza Virus Vaccine Unknown Completed [facility] TDAP Unknown Completed [facility] TDAP Unknown Completed [facility] TDAP Unknown Completed [facility] TDAP Unknown Completed [facility] Influenza Virus Vaccine Quad IM 3+ YRS Unknown Completed [facility] Influenza Virus Vaccine Quad IM 3+ YRS Unknown Completed [facility] Influenza Virus Vaccine Nasal Unknown Completed [facility] Influenza Virus Vaccine Nasal Unknown Completed [facility] IPV Unknown Completed [facility] IPV Unknown Completed [facility] IPV Unknown Completed [facility] Influenza Virus Vaccine Unknown Completed [facility] TDAP Unknown Completed [facility] Meningococcal Polysaccharide (groups A, C, Y and W-135) conjugate vaccine (MCV4P) Unknown Completed [facility] Influenza Virus Vaccine Quad .5 mL IM 6+ MO (FLUZONE/FLULAVAL/FL UARIX) Unknown Completed [facility] Influenza Virus Vaccine Quad .5 mL IM 6+ MO (FLUZONE/FLULAVAL/FL UARIX) Unknown Completed [facility] Influenza, Trivalent, Adjuvanted Unknown Completed [facility] Influenza, Trivalent, Adjuvanted Unknown Completed [facility] DTaP, Unspecified Formulation Unknown Completed [facility] DTaP, Unspecified Formulation Unknown Completed [facility] DTaP, Unspecified Formulation Unknown Completed [facility] DTaP, Unspecified Formulation Unknown Completed [facility] Influenza Virus Vaccine Quad Nasal (Flumist) Unknown Completed [facility] Flu Trivalent Unknown Completed [facility] Flu Trivalent Unknown Completed [facility] Flu Whole Virus Unknown Completed [facility] Influenza Virus Vaccine Quad IM, Preserv and ABX Free 6 MO-64 YRS (FLUCELVAX) Unknown Completed [facility] Vital Signs Vital Name Observation Time Observation Value Comments S ource Systolic blood pressure 2024-04-30 14:20:00 102 mm[Hg] [facility] Diastolic blood pressure 2024-04-30 14:20:00 72 mm[Hg] [facility] Heart rate 2024-04-30 14:20:00 94 /[facility] Respiratory rate 2024-04-30 14:20:00 18 /min [facility] Body height 2024-04-30 14:20:00 157.5 cm [facility] Body weight 2024-04-30 14:20:00 59.421 kg [facility] BMI 2024-04-30 14:20:00 23.96 kg/m2 [facility] Systolic blood pressure 2024-04-14 20:00:00 115 mm[Hg] [facility] Diastolic blood pressure 2024-04-14 20:00:00 86 mm[Hg] [facility] Heart rate 2024-04-14 20:00:00 100 /min [facility] Body temperature 2024-04-14 20:00:00 36.72 Melania [facility] Respiratory rate 2024-04-14 20:00:00 14 /min [facility] Body height 2024-04-14 20:00:00 157.5 cm [facility] Body weight 2024-04-14 20:00:00 58.968 kg [facility] BMI 2024-04-14 20:00:00 23.78 kg/m2 [facility] Oxygen saturation in Arterial blood by Pulse oximetry 2024-04-14 20:00:00 100 /min [facility] Systolic blood pressure 2024-04-11 19:00:00 123 mm[Hg] [facility] Diastolic blood pressure 2024-04-11 19:00:00 77 mm[Hg] [facility] Heart rate 2024-04-11 19:00:00 88 /min [facility] Body temperature 2024-04-11 19:00:00 37.22 Melania [facility] Respiratory rate 2024-04-11 19:00:00 18 /min [facility] Oxygen saturation in Arterial blood by Pulse oximetry 2024-04-11 19:00:00 99 /min [facility] Body height 2024-04-11 17:36:00 157.5 cm [facility] Body weight 2024-04-11 17:36:00 58.968 kg [facility] BMI 2024-04-11 17:36:00 23.78 kg/m2 [facility] Systolic blood pressure 2024-02-06 13:57:00 115 mm[Hg] [facility] Diastolic blood pressure 2024-02-06 13:57:00 77 mm[Hg] [facility] Heart rate 2024-02-06 13:57:00 115 /min [facility] Body temperature 2024-02-06 13:57:00 36.72 Melania [facility] Respiratory rate 2024-02-06 13:57:00 16 /min [facility] Body height 2024-02-06 13:57:00 157.5 cm [facility] Body weight 2024-02-06 13:57:00 60.782 kg [facility] BMI 2024-02-06 13:57:00 24.51 kg/m2 [facility] Systolic blood pressure 2023-11-13 19:04:00 124 mm[Hg] [facility] Diastolic blood pressure 2023-11-13 19:04:00 73 mm[Hg] [facility] Heart rate 2023-11-13 19:04:00 94 /min [facility] Body temperature 2023-11-13 19:04:00 36.78 Melania [facility] Respiratory rate 2023-11-13 19:04:00 18 /min [facility] Body height 2023-11-13 19:04:00 154.9 cm [facility] Body weight 2023-11-13 19:04:00 56.79 kg [facility] BMI 2023-11-13 19:04:00 23.66 kg/m2 [facility] Systolic blood pressure 2023-10-14 18:30:00 96 mm[Hg] [facility] Diastolic blood pressure 2023-10-14 18:30:00 66 mm[Hg] [facility] Heart rate 2023-10-14 18:30:00 86 /min [facility] Respiratory rate 2023-10-14 18:30:00 18 /min [facility] Oxygen saturation in Arterial blood by Pulse oximetry 2023-10-14 18:30:00 99 /min [facility] Body temperature 2023-10-14 13:13:00 36.72 Melania [facility] Body height 2023-10-13 23:46:00 154.9 cm [facility] Body weight 2023-10-13 23:46:00 55.792 kg [facility] BMI 2023-10-13 23:46:00 23.24 kg/m2 [facility] Systolic blood pressure 2023-10-11 00:55:00 116 mm[Hg] [facility] Diastolic blood pressure 2023-10-11 00:55:00 79 mm[Hg] [facility] Heart rate 2023-10-11 00:55:00 95 /min [facility] Respiratory rate 2023-10-11 00:55:00 16 /min [facility] Oxygen saturation in Arterial blood by Pulse oximetry 2023-10-11 00:55:00 99 /min [facility] Body temperature 2023-10-11 00:25:00 36.33 Melania [facility] Body height 2023-10-10 19:58:00 154.9 cm [facility] Body weight 2023-10-10 19:58:00 55.792 kg [facility] BMI 2023-10-10 19:58:00 23.24 kg/m2 [facility] Systolic blood pressure 2023-10-10 19:58:00 107 mm[Hg] [facility] Diastolic blood pressure 2023-10-10 19:58:00 68 mm[Hg] [facility] Heart rate 2023-10-10 19:58:00 97 /min [facility] Body temperature 2023-10-10 19:58:00 36.94 Melania [facility] Respiratory rate 2023-10-10 19:58:00 18 /min [facility] Body height 2023-10-10 19:58:00 154.9 cm [facility] Body weight 2023-10-10 19:58:00 55.792 kg [facility] BMI 2023-10-10 19:58:00 23.24 kg/m2 [facility] Oxygen saturation in Arterial blood by Pulse oximetry 2023-10-10 19:58:00 98 /min [facility] Systolic blood pressure 2023-10-08 14:20:00 97 mm[Hg] [facility] Diastolic blood pressure 2023-10-08 14:20:00 61 mm[Hg] [facility] Heart rate 2023-10-08 14:20:00 97 /min [facility] Body temperature 2023-10-08 14:20:00 37 [facility] [place] Respiratory rate 2023-10-08 14:20:00 16 /min [facility] [place] Body height 2023-10-08 14:20:00 154.9 cm [facility] Body weight 2023-10-08 14:20:00 56.427 kg [facility] BMI 2023-10-08 14:20:00 23.51 kg/m2 [facility] Oxygen saturation in Arterial blood by Pulse oximetry 2023-10-08 14:20:00 97 /min [facility] Systolic blood pressure 2023 06:04:00 103 mm[Hg] [facility] Diastolic blood pressure 2023 06:04:00 65 mm[Hg] [facility] Heart rate 2023 06:04:00 95 /min [facility] Respiratory rate 2023 06:04:00 16 /min [facility] [place] Oxygen saturation in Arterial blood by Pulse oximetry 2023 06:04:00 99 /min [facility] Body temperature 2023 03:34:00 36.67 Melania [facility] [place] Body weight 2023 03:34:00 58.968 kg [facility] BMI 2023 03:34:00 23.78 kg/m2 [facility] Systolic blood pressure 2023-08-15 13:02:00 105 mm[Hg] [facility] Diastolic blood pressure 2023-08-15 13:02:00 71 mm[Hg] [facility] Heart rate 2023-08-15 13:02:00 76 /min [facility] 2023-08-15 13:02:00 18 /min [facility] [place] Body height 2023-08-15 13:02:00 157.5 cm [facility] Body weight 2023-08-15 13:02:00 57.607 kg [facility] BMI 2023-08-15 13:02:00 23.23 kg/m2 [facility] Diastolic blood pressure 2023-05-14 20:46:00 75 mm[Hg] [facility] Heart rate 2023-05-14 20:46:00 102 /min [facility] Body temperature 2023-05-14 20:46:00 36.78 Melania [facility] [place] Respiratory rate 2023-05-14 20:46:00 18 /min [facility] [place] Body height 2023-05-14 20:46:00 157.5 cm [facility] Body weight 2023-05-14 20:46:00 60.328 kg [facility] BMI 2023-05-14 20:46:00 24.33 kg/m2 [facility] Systolic blood pressure 2023-05-14 20:46:00 108 mm[Hg] [facility] Systolic blood pressure 2023-02-18 20:19:00 111 mm[Hg] [facility] Diastolic blood pressure 2023-02-18 20:19:00 76 mm[Hg] [facility] Heart rate 2023-02-18 20:19:00 112 /min [facility] Body temperature 2023-02-18 20:19:00 36.78 Melania [facility] [place] Respiratory rate 2023-02-18 20:19:00 18 /min [facility] [place] Body height 2023-02-18 20:19:00 157.5 cm [facility] Body weight 2023-02-18 20:19:00 60.147 kg [facility] BMI 2023-02-18 20:19:00 24.25 kg/m2 [facility] Systolic blood pressure 2022-11-18 20:53:00 100 mm[Hg] [facility] Diastolic blood pressure 2022-11-18 20:53:00 70 mm[Hg] [facility] Heart rate 2022-11-18 20:53:00 97 /min [facility] Body temperature 2022-11-18 20:53:00 37.06 Melania [facility] [place] Respiratory rate 2022-11-18 20:53:00 18 /min [facility] [place] Body height 2022-11-18 20:53:00 157.5 cm [facility] Body weight 2022-11-18 20:53:00 59.421 kg [facility] BMI 2022-11-18 20:53:00 23.96 kg/m2 [facility] Systolic blood pressure 2022-08-26 20:11:00 113 mm[Hg] [facility] Diastolic blood pressure 2022-08-26 20:11:00 80 mm[Hg] [facility] Heart rate 2022-08-26 20:11:00 91 /min [facility] Body temperature 2022-08-26 20:11:00 36.72 Melania [facility] [place] Respiratory rate 2022-08-26 20:11:00 16 /min [facility] [place] Body height 2022-08-26 20:11:00 157.5 cm [facility] Body weight 2022-08-26 20:11:00 57.879 kg [facility] BMI 2022-08-26 20:11:00 23.34 kg/m2 [facility] Systolic blood pressure 2022-07-03 20:26:00 108 mm[Hg] [facility] Diastolic blood pressure 2022-07-03 20:26:00 76 mm[Hg] [facility] Heart rate 2022-07-03 20:26:00 103 /min [facility] Body temperature 2022-07-03 20:25:00 36.89 Melania [facility] [place] Respiratory rate 2022-07-03 20:25:00 16 /min [facility] [place] Body height 2022-07-03 20:25:00 157.5 cm [facility] Body weight 2022-07-03 20:25:00 58.968 kg [facility] BMI 2022-07-03 20:25:00 23.78 kg/m2 [facility] Oxygen saturation in Arterial blood by Pulse oximetry 2022-07-03 20:25:00 98 /min [facility] Height 2020-12-01 10:53:00 154.94 CM Weight 2020-12-01 10:53:00 50.8 KG Procedures Procedure Date / Time Performed Performing Clinician Source RAPID STREP SCREEN FOR GROUP A 2024-04-11 17:46:00 Fide Freitas [facility] [place] POCT TEST 2024-04-11 17:46:00 Fide Freitas [facility] [place] INFLUENZA A/B RSV COVID NAAT 2024-04-11 17:46:00 Fide Freitas [facility] [place] LAB ONLY PAP SMEAR-LIQUID BASED 2023-11-13 19:45:00 Zarina Kennedy [facility] [place] PAP SMEAR-LIQUID BASED-CP 2023-11-13 19:45:00 Catie Kennedy [facility] [place] HEPATITIS B SURFACE ANTIGEN 2023-11-13 19:34:00 Kennedy, Zarina [facility] HCV ANTIBODY 2023-11-13 19:34:00 BrentZarina Marcus [facility] HIV 1/2 AG-AB WITH REFLEX 2023-11-13 19:34:00 Catie Kennedy [facility] FLU VACC (), 6 MO-64 YRS, .5ML, IM, QUAD (FLUCELVAX) 2023-11-13 19:17:34 BrentZarina [facility] GC & CHLAMYDIA AMPLIFIED ASSAY 2023-11-13 19:16:00 [facility] 2023-11-13 19:16:00 [facility] EXTERNAL PROVIDER RECORDS 2023-10-24 06:01:00 Do ctor Unassigned, [place] [facility] [place] BASIC METABOLIC PANEL (NA, K, CL, CO2, GLUCOSE, BUN, CREATININE, CA) 2023-10-14 10:38:00 Justyn [facility] CBC WITH DIFF 2023-10-14 10:38:00 Mallorie Alejandra [facility] TEST, URINE 2023-10-14 01:42:00 [facility] 2023-10-14 01:42:[address] [facility] BASIC METABOLIC PANEL (NA, K, CL, CO2, GLUCOSE, BUN, CREATININE, CA) 2023-10-14 01:41:00 Elliott Priest [facility] CBC WITH DIFF 2023-10-14 01:41:00 Elliott Priest [facility] [place] FL TIME OR (NON-REPORTABLE) 2023-10-11 00:20:00 Justyn [facility] FL TIME OR (NON-REPORTABLE) 2023-10-11 00:20:00 Justyn [facility] URETEROSCOPIC STONE MANIPULATION 2023-10-10 23:21:00 Justyn [facility] DAY SURGERY - [place] 2023-10-10 06:01:00 Doctor Unassigned, [place] [facility] [place] US RETROPERITONEAL LIMITED 2023 05:54:30 King Yosvany Keller [facility] [place] POCT TEST 2023 04:05:00 Job Keyes [facility] [place] COMP. METABOLIC PANEL (14269) 2023 04:02:00 Iris Keyes [facility] [place] CBC WITH DIFF 2023 04:02:00 [facility] 2023 04:02:00 [facility]/REFUSAL FOR DIAGNOSIS AND TREATMENT 2023 03:26:20 Doctor Unassigned, [place] [facility] [place] REFERRAL- REQUEST/RESPONSE 2023-06-03 05:01:00 D yoselin Unassigned, [place] [facility] PATIENT FINANCIAL POLICY 2023-02-18 19:57:32 Doctor Unassigned, [place] [facility] [place] ASSIGNMENT OF BENEFITS 2022-11-18 20:21:23 Docto r Unassigned, [place] [facility] [place] Encounters Start Date/Time End Date/Time Encounter Type Admission Type Attending Clinicians Care Facility Care Department Encounter ID Source 2021-09-11 07:20:36 Emergency [facility] [id number] [facility] 2021-09-11 07:18:00 Emergency [facility] [id number] [facility] 2021-09-11 05:25:53 Emergency [facility] [id number] [facility] 2021-09-10 12:34:55 Emergency [facility] [id number] [facility] 2021-09-10 00:32:19 Outpatient X [facility] ERT [id number] [facility] 2021-09-10 00:25:14 Emergency [facility] [id number] [facility] 2021-09-09 03:49:13 Emergency [facility] [id number] [facility] 2021-09-07 12:08:59 Emergency [facility] [id number] [facility] 2021-09-06 14:24:34 Outpatient P [facility] JONI [id number] [facility] 2021-09-06 14:21:12 Outpatient P [facility] JONI [id number] [facility] 2021-09-06 13:39:14 Outpatient P LAMB JONI [id number] [facility] 2021-09-06 13:35:43 Outpatient P [facility] JONI [id number] [facility] 2024-07-23 15:30:00 2024-07-23 15:30:00 Outpatient R [facility] [id number] [facility] 2024-06-01 13:00:00 2024-06-01 13:00:00 Outpatient [facility] [id number] [facility] 2024-04-30 09:00:00 2024-04-30 09:20:31 Outpatient R ZARINA KENNEDY [facility] [id number] [facility] 2024-04-30 09:00:00 2024-04-30 09:20:31 Nurse Visit Nurse, [facility] Zarina Kennedy [facility] 1..840.114 350.1.13.10 4.2.7.2.686 [id number] [facility] 2024-04-14 18:15:00 2024-04-15 14:23:00 Inpatient E TANYAPRINCE [facility] [id number] [address] [place] [address] 2024-04-14 15:01:00 2024-04-14 16:04:00 Emergency X VIVIANA DOWNEY [facility] ERT [id number] [facility] 2024-04-14 15:01:00 2024-04-14 16:04:00 Emergency Viviana Downey G [facility] 1..840.114 350.1.13.10 4.2.7.2.686 [id number] [facility] 2024-04-11 12:37:00 2024-04-11 14:17:00 Emergency X FIDE FREITAS [facility] ERT [id number] [facility] 2024-04-11 12:37:00 2024-04-11 14:17:00 Emergency Fide Freitas A [facility] 1..840.114 350.1.13.10 4.2.7.2.686 [id number] [facility] 2024-03-18 11:50:22 2024-03-18 11:50:22 Outpatient SFA [facility] [id number] Dirk F Peck 2024-03-09 11:23:14 2024-03-09 11:23:14 Outpatient SFA [facility] [id number] Dirk Nickerson Peck 2024-03-05 13:41:30 2024-03-05 13:41:30 Outpatient SFA SFA [id number] Dirk Krishan Peck 2024-02-17 13:31:42 2024-02-17 13:31:42 Outpatient SFA [facility] [id number] Dirk F Peck 2024-02-10 13:54:58 2024-02-10 13:54:58 Outpatient SFA S[facility] [id number] Dirk Nickerson Peck 2024-02-06 10:35:33 2024-02-06 10:35:33 Outpatient SFA SFA [id number] Dirk Nickerson Peck 2024-02-06 10:30:00 2024-02-06 10:30:00 Outpatient R [facility] [id number] [facility] 2024-02-06 09:00:00 2024-02-06 09:00:00 Nurse Visit Nurse, [facility] Zarina Kennedy [facility] 1..840.114 350.1.13.10 4.2.7.2.686 [id number] [facility] 2024-02-06 09:00:00 2024-02-06 08:58:15 Outpatient R ZARINA KENNEDY [facility] [id number] [facility] 2024-02-03 13:57:01 2024-02-03 13:57:01 Outpatient [facility] [id number] Dirk Nickerson Bjorn 2024-01-01 08:17:49 2024-01-01 08:17:49 Outpatient [facility] [id number] Dirk Nickerson Peck 2023-12-31 16:57:01 2023-12-31 16:57:01 Outpatient [facility] [id number] Dirk Nickerson Peck 2023-12-25 11:58:12 2023-12-25 11:58:12 Outpatient [facility] [id number] Dirk Nickerson Peck 2023-11-13 13:45:00 2023-11-13 14:09:01 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13.10 4.2.7.2.686 [id number] [facility] 2023-10-13 17:48:00 2023-10-14 16:08:00 Outpatient MARCO A ABDI [facility] [id number] [facility] 2023-10-13 17:48:00 2023-10-14 16:08:00 Emergency Mallorie Alejandra, Marco A Longo [facility] 1.2.840.114 350.1.13.10 4.2.7.2.686 [id number] [facility] 2023-10-13 00:00:00 2023-10-13 00:00:00 Telephone Justyn [facility] MEDICAL OFFICE BUILDING 1.2.840.114 350.1.13.10 4.2.7.2.686 [id number] [facility] 2023-10-10 13:39:00 2023-10-10 19:08:00 [id number] 2023-10-10 13:39:00 2023-10-10 19:08:00 Hospital Encounter Justyn [facility] 1.2.840.114 350.1.13.10 4.2.7.2.686 [id number] [facility] 2023-10-10 15:01:00 2023-10-10 16:22:00 Surgery Justyn [facility] 1.2.840.114 350.1.13.10 4.2.7.2.686 [id number] [facility] 2023-10-10 00:00:00 2023-10-10 00:00:00 Orders Only Doctor Unassigned, [place] [facility] 1.2.840.114 350.1.13.10 4.2.7.2.686 [id number] [facility] 2023-10-09 09:26:26 2023-10-09 09:26:26 Outpatient JOSE ANTONIO [facility] [id number] Dirk Milan 2023-10-08 08:30:00 2023-10-08 15:45:08 Outpatient AILIN BENTON [facility] [id number] [facility] 2023-10-08 08:30:00 2023-10-08 15:45:08 Office Visit Ailin Tang [facility] MEDICAL OFFICE BUILDING 1.2.840.114 350.1.13.10 4.2.7.2.686 [id number] [facility] 2023-10-05 21:35:00 2023 01:06:00 Emergency X [facility]ENDE[facility]DAVY [facility] DAVY [facility] ERT [id number] [facility] 2023-10-05 21:35:00 2023 01:06:00 Emergency Asan Elias, Iris Finch, Davy [facility] 1..840.114 350.1.13.10 4.2.7.2.686 [id number] [facility] 2023-10-04 14:17:02 2023-10-04 14:17:02 Outpatient SFA [facility] [id number] Dirk Milan 2023-09-17 16:48:16 2023-09-17 16:48:16 Outpatient SFA [facility] [id number] Dirk Milan 2023-09-11 09:11:57 2023-09-11 09:11:57 Outpatient SFA [facility] [id number] Dirk Nickerson Bjorn 2023-08-26 15:44:47 2023-08-26 15:44:47 Outpatient SFA [facility] [id number] Dirk Milan 2023-08-15 08:00:00 2023-08-15 08:15:00 Nurse Visit Nurse, [facility] Zarina Kennedy [facility] BUILD[facility] 1.2.840.114 350.1.13.10 4.2.7.2.686 [id number] [facility] 2023-08-15 08:00:00 2023-08-15 08:00:00 Outpatient ZARINA DERAS [facility] [id number] [facility] 2023-08-14 08:15:00 2023-08-14 08:15:00 Outpatient R BRIT LAUREN [facility] [id number] [facility] 2023-07-31 09:30:00 2023-07-31 09:30:00 Outpatient Stevo MAY IDA [facility] [id number] [facility] 2023-06-26 14:44:34 2023-06-26 14:44:34 Outpatient SFA [facility] [id number] Dirk Milan 2023-06-11 10:54:47 2023-06-11 10:54:47 Outpatient [facility] [id number] Dirk Milan 2023-06-03 00:00:00 2023-06-03 00:00:00 Orders Only Doctor Unassigned, [place] [facility] 1.2.840.114 350.1.13.10 4.2.7.2.686 [id number] [facility] 2023-05-21 09:11:27 2023-05-21 09:11:27 Outpatient SFA [facility] [id number] Dirk Milan 2023-05-14 15:30:00 2023-05-14 15:45:47 Nurse Visit Nurse, [facility] Norma Partida [facility] 1.2.840.114 350.1.13.10 4.2.7.2.686 [id number] [facility] 2023-05-14 15:30:00 2023-05-14 15:30:00 Outpatient R NORMA PARTIDA [facility] [id number] [facility] 2023-04-30 14:56:01 2023-04-30 14:56:01 Outpatient SFA [facility] [id number] Dirk Milan 2023-04-21 16:15:00 2023-04-21 16:15:00 Outpatient R HINA BOLIVAR MARISOL [facility] [id number] [facility] 2023-03-21 14:00:00 2023-03-21 14:00:00 Outpatient Stevo RIVERA WENDY [facility] [id number] [facility] 2023-03-18 15:33:41 2023-03-18 15:33:41 Outpatient [facility] [id number] Dirk Milan 2023-02-28 00:00:00 2023-02-28 00:00:00 Telephone Zarina Kennedy [facility] 1..840.114 350.1.13.10 4.2.7.2.686 [id number] [facility] 2023-02-18 15:30:00 2023-02-18 15:30:00 Nurse Visit Nurse, [facility] Wendy Rivera [facility] 1..840.114 350.1.13.10 4.2.7.2.686 [id number] [facility] 2023-02-18 15:30:00 2023-02-18 15:15:55 Outpatient WENDY WALDROP [facility] [id number] [facility] 2023-02-18 00:00:00 2023-02-18 00:00:00 Orders Only Doctor Unassigned, [place] [facility] 1..840.114 350.1.13.10 4.2.7.2.686 [id number] [facility] 2023-02-12 15:57:07 2023-02-12 15:57:07 Outpatient [facility] [id number] Dirk Milan 2022-12-31 14:30:00 2022-12-31 14:30:00 Outpatient ZARINA DERAS [facility] [id number] [facility] 2022-12-28 00:00:00 2022-12-28 00:00:00 Telephone Zarina Kennedy [facility] 1..840.114 350.1.13.10 4.2.7.2.686 [id number] [facility] 2022-12-23 00:00:00 2022-12-23 00:00:00 Telephone Zarina Kennedy [facility] 1.2.840.114 350.1.13.10 4.2.7.2.686 [id number] [facility] 2022-12-20 15:45:35 2022-12-20 15:45:35 Outpatient SFA [facility] [id number] Dirk Milan 2022-12-05 08:00:00 2022-12-05 08:00:00 Outpatient R ZARINA KENNEDY [facility] [id number] [facility] 2022-11-28 00:00:00 2022-11-28 00:00:00 Telephone Wendy Rivera [facility] 1.2840.114 350.1.13.10 4.2.7.2.686 [id number] [facility] 2022-11-21 08:56:00 2022-11-21 08:56:00 Outpatient SFA [facility] [id number] Dirk Milan 2022-11-18 14:30:00 2022-11-18 15:20:30 Outpatient R WENDY RIVERA [facility] [id number] [facility] 2022-11-18 14:30:00 2022-11-18 15:20:30 Office Visit Nicole Wendy [facility] 1.2840.114 350.1.13.10 4.2.7.2.686 [id number] [facility] 2022-11-18 00:00:00 2022-11-18 00:00:00 Orders Only Doctor Unassigned, [place] [facility] 1.2840.114 350.1.13.10 4.2.7.2.686 [id number] [facility] 2022-10-29 09:00:00 2022-10-29 09:00:00 Outpatient Stevo BRAVO [facility] [id number] [facility] 2022-10-28 00:00:00 2022-10-28 00:00:00 Telephone [facility] 1.840.114 350.1.13.10 4.2.7.2.686 [id number] [facility] 2022-10-23 00:00:00 2022-10-23 00:00:00 [facility] 1.840.114 350.1.13.10 4.2.7.2.686 [id number] [facility] 2022-08-26 14:30:00 2022-08-26 15:11:07 Outpatient [facility] [id number] [facility] 2022-08-26 14:30:00 2022-08-26 15:11:07 Nurse Visit Nurse, [facility] Nicole [facility] 1..840.114 350.1.13.10 4.2.7.2.686 [id number] [facility] 2022-07-03 17:00:00 2022-07-03 17:15:00 Paint Stock Clerk Visit [facility] 1.840.114 350.1.13.10 4.2.7.2.686 [id number] [facility] 2022-07-03 16:00:00 2022-07-03 16:06:31 Outpatient Stevo BRAVO [facility] [id number] [facility] 2022-07-03 16:00:00 2022-07-03 16:06:31 [facility] 1.2.840.114 350.1.13.10 4.2.7.2.686 [id number] [facility] 2022-07-03 16:00:00 2022-07-03 16:06:31 Outpatient Stevo BRAVO [facility] [id number] [facility] 2022-07-03 16:00:00 2022-07-03 16:06:31 Outpatient Stevo LAWRENCE [facility] [id number] [facility] 2022-06-19 00:00:00 2022-06-19 00:00:00 Telephone [place], Nephrology [facility] 1..840.114 350.1.13.10 4.2.7.2.686 [id number] [facility] 2022-06-12 00:00:00 2022-06-12 00:00:00 [facility] [place] 1.2.840.114 350.1.13.10 4.2.7.2.686 [id number] [facility] 2022-06-03 14:00:00 2022-06-03 14:15:27 Outpatient WENDY WALDROP [facility] [id number] [facility] 2022-06-03 14:00:00 2022-06-03 14:15:27 Nurse Visit Nurse, [facility] [place] 1..840.114 350.1.13.10 4.2.7.2.686 [id number] [facility] 2022-04-04 15:00:00 2022-04-04 15:00:00 Outpatient WENDY WALDROP [facility] [id number] [facility] 2022-04-03 13:10:05 2022-04-03 23:59:00 Outpatient WENDY WALDROP [facility] [id number] [facility] 2022-04-03 13:00:00 2022-04-03 23:59:00 Hospital Encounter Wendy Rivera [facility] 1.2840.114 350.1.13.10 4.2.7.2.686 [id number] [facility] 2022-04-03 00:00:00 2022-04-03 00:00:00 Orders Only Doctor Unassigned, [place] [facility] 1.20.114 350.1.13.10 4.2.7.2.686 [id number] [facility] 2022-04-03 00:00:00 2022-04-03 00:00:00 Case Management Nicole Wendy [facility] 1.840.114 350.1.13.10 4.2.7.2.686 [id number] [facility] 2022-03-27 09:30:00 2022-03-27 09:30:00 Outpatient ZARINA DERAS [facility] [id number] [facility] 2022-03-27 09:30:00 2022-03-27 09:30:00 Outpatient ZARINA DERAS [facility] [id number] [facility] 2022-03-27 09:30:00 2022-03-27 09:30:00 Outpatient ZARINA DERAS [facility] [id number] [facility] 2022-03-07 14:00:00 2022-03-07 14:18:10 Outpatient ZARINA DERAS [facility] [id number] [facility] 2022-03-07 14:00:00 2022-03-07 14:18:10 Nurse Visit Nurse, [facility] Zarina Kennedy [facility] BUILDING 1.84.114 350.1.13.10 4.2.7.2.686 [id number] 134 [id number] [facility] 2022-02-28 00:00:00 2022-02-28 00:00:00 Telephone Wendy Rivera [facility] 1..840.114 350.1.13.10 4.2.7.2.686 [id number] 134 [id number] [facility] 2022-02-26 15:00:00 2022-02-26 16:12:25 Outpatient R NORMA PARTIDA [facility] [id number] [facility] 2022-02-26 15:00:00 2022-02-26 16:12:25 Office Visit Nicole Wendy Norma Partida [facility] 1..840.114 350.1.13.10 4.2.7.2.686 [id number] 134 [id number] [facility] 2021-12-13 10:30:00 2021-12-13 10:42:25 Outpatient R ZARINA KENNEDY [facility] [id number] [facility] 2021-12-13 10:30:00 2021-12-13 10:42:25 Nurse Visit Nurse, [facility] Zarina Kennedy [facility] 1..840.114 350.1.13.10 4.2.7.2.686 [id number] 134 [id number] [facility] 2021-12-13 10:30:00 2021-12-13 10:30:00 Outpatient R [facility] [id number] [facility] 2021-12-13 00:00:00 2021-12-13 00:00:00 Orders Only Doctor Unassigned, [place] [facility] 1.840.114 350.1.13.10 4.2.7.2.686 [id number] [id number] [facility] 2021-12-07 13:00:00 2021-12-07 13:00:00 Outpatient STAN SPEARS HOWARD [facility] [id number] [facility] 2021-11-28 12:55:00 2021-11-28 16:24:00 Emergency X Pedro MILLER [facility] ERT [id number] [facility] 2021-11-28 12:55:00 2021-11-28 16:24:00 Emergency Pedro Miller [facility] 1.0.114 350.1.13.10 4.2.7.2.686 [id number] 084 [id number] [facility] 2021-11-28 00:00:00 2021-11-28 00:00:00 Orders Only Doctor Unassigned, [place] [facility] 1..114 350.1.13.10 4.2.7.2.686 [id number] [id number] [facility] 2021-10-22 09:00:00 2021-10-22 09:29:56 Outpatient Stevo RIVERA [facility] [id number] [facility] 2021-10-22 08:40:07 2021-10-22 09:29:56 Office Visit Nicole Wendy [facility] BUILDING 1.84.114 350.1.13.10 4.2.7.2.686 [id number] 134 [id number] [facility] 2021-09-27 10:30:00 2021-09-27 10:53:39 Outpatient Stevo RIVERA [facility] [id number] [facility] 2021-09-27 10:24:13 2021-09-27 10:53:39 Routine Visit Zarina Kennedy [facility] PROFESSIO NAL BUILDING 1.2.114 350.1.13.10 4.2.7.2.686 [id number] 134 [id number] [facility] 2021-09-12 00:00:00 2021-09-12 00:00:00 Telephone Wendy Rivera [facility] PROFESSIO NAL BUILDING 1.2.840.114 350.1.13.10 4.2.7.2.686 [id number] 134 [id number] [facility] 2021-09-10 04:05:00 2021-09-11 16:00:00 Inpatient P ZARINA KENNEDY [facility] ERT [id number] [facility] 2021-09-10 04:05:00 2021-09-11 16:00:00 Hospital Encounter Zarina Kennedy [facility] 1.2.840.114 350.1.13.10 4.2.7.2.686 [id number] 083 [id number] [facility] 2021-09-10 08:35:00 2021-09-10 16:19:00 Anesthesia Event Jordan Gaspar Leonard [facility] 1.2.840.114 350.1.13.10 4.2.7.2.686 [id number] 083 [id number] [facility] 2021-09-07 10:06:22 2021-09-07 10:21:22 Laboratory Only Only, Adc Test Zarina Kennedy [facility] 1.2.840.114 350.1.13.10 4.2.7.2.686 [id number] 353 [id number] [facility] 2021-09-07 10:15:00 2021-09-07 10:15:00 Outpatient R ZARINA KENNEDY [facility] [id number] [facility] 2021-09-06 11:00:13 2021-09-06 11:58:29 Routine Visit Zarina Kennedy [facility] 1.2.840.114 350.1.13.10 4.2.7.2.686 [id number] 134 [id number] [facility] 2021-09-06 11:00:00 2021-09-06 11:58:29 Outpatient R BRENT ZARINA [facility] [id number] [facility] 2021-09-04 13:23:00 2021-09-04 15:35:00 Hospital Encounter Kennedy Zarina Marcus Norma Partida [facility] 1.2.840.114 350.1.13.10 4.2.7.2.686 [id number] 083 [id number] [facility] 2021-09-04 13:23:00 2021-09-04 15:35:00 Outpatient P ZARINA KENNEDY [facility] ERT [id number] [facility] 2021-09-04 11:00:00 2021-09-04 12:14:54 Outpatient WENDY WALRDOP [facility] [id number] [facility] 2021-09-04 10:42:04 2021-09-04 12:14:54 Routine Visit Wendy Rivera [facility] 1.2.840.114 350.1.13.10 4.2.7.2.686 [id number] 134 [id number] [facility] 2021-09-04 00:00:00 2021-09-04 00:00:00 Telephone Zarina Kennedy [facility] 1.2.840.114 350.1.13.10 4.2.7.2.686 [id number] 134 [id number] [facility] 2021-09-03 16:15:00 2021-09-03 16:15:00 Outpatient R WENDY RIVERA [facility] [id number] [facility] 2021-08-27 16:30:00 2021-08-27 16:30:00 Outpatient WENDY WALDROP [facility] [id number] [facility] 2021-08-27 15:51:06 2021-08-27 16:29:15 Routine Visit Zarina Kennedy Nancy [facility] 1.2.840.114 350.1.13.10 4.2.7.2.686 [id number] 134 [id number] [facility] 2021-08-25 22:15:00 2021-08-25 23:30:00 Hospital Encounter Kary Oseguera [facility] 1.2.840.114 350.1.13.10 4.2.7.2.686 [id number] 083 [id number] [facility] 2021-08-25 09:36:00 2021-08-25 18:31:00 Emergency Oumar Kary [facility] 1.2.840.114 350.1.13.10 4.2.7.2.686 [id number] 083 [id number] [facility] 2021-08-24 00:00:00 2021-08-24 00:00:00 Telephone Zarina Kennedy [facility] 1.2.840.114 350.1.13.10 4.2.7.2.686 [id number] 134 [id number] [facility] 2021-08-24 00:00:00 2021-08-24 00:00:00 Telephone MayteWendy quezada [facility] 1.2.840.114 350.1.13.10 4.2.7.2.686 [id number] 134 [id number] [facility] 2021-08-20 08:20:54 2021-08-20 09:06:30 Routine Visit Zarina Kennedy [facility] 1.2.840.114 350.1.13.10 4.2.7.2.686 [id number] 134 [id number] [facility] 2021-08-20 08:00:00 2021-08-20 08:00:00 Outpatient R ZARINA KENNEDY [facility] [id number] [facility] 2021-08-20 00:00:00 2021-08-20 00:00:00 Telephone Zarina Kennedy [facility] 1.2.840.114 350.1.13.10 4.2.7.2.686 [id number] 134 [id number] [facility] 2021-08-20 00:00:00 2021-08-20 00:00:00 Orders Only Doctor Unassigned, [place] [facility] 1.2.840.114 350.1.13.10 4.2.7.2.686 [id number] 009 [id number] [facility] 2021-08-17 19:05:00 2021-08-17 21:15:00 Hospital Encounter Zarina Kennedy [facility] 1.2.840.114 350.1.13.10 4.2.7.2.686 [id number] 083 [id number] [facility] 2021-08-17 00:00:00 2021-08-17 00:00:00 Orders Only Doctor Unassigned, [place] [facility] 1.2.840.114 350.1.13.10 4.2.7.2.686 [id number] [id number] [facility] 2021-08-13 16:00:00 2021-08-13 16:00:00 Outpatient WENDY WALDROP [facility] [id number] [facility] 2021-08-13 13:32:20 2021-08-13 13:47:20 Paint Stock Clerk Visit 2, Adc Lab Nicole [facility] 1.2.840.114 350.1.13.10 4.2.7.2.686 [id number] [facility] 2021-08-13 12:46:01 2021-08-13 13:29:24 Routine Visit Wendy Rivera [facility] 1.2.840.114 350.1.13.10 4.2.7.2.686 [id number] 134 [id number] [facility] 2021-08-11 00:00:00 2021-08-11 00:00:00 Nurse Triage Lashay Merritt [facility] 1.2.840.114 350.1.13.10 4.2.7.2.686 [id number] 019 [id number] [facility] 2021-08-03 10:23:00 2021-08-03 13:15:00 Hospital Encounter Zarina Kennedy Vivian L [facility] 1.2.840.114 350.1.13.10 4.2.7.2.686 [id number] 083 [id number] [facility] 2021-08-03 00:00:00 2021-08-03 00:00:00 Telephone Zarina Kennedy [facility] 1.2.840.114 350.1.13.10 4.2.7.2.686 [id number] 134 [id number] [facility] 2021-08-03 00:00:00 2021-08-03 00:00:00 Orders Only Doctor Unassigned, [place] [facility] 1.2.840.114 350.1.13.10 4.2.7.2.686 [id number] [id number] [facility] 2021-08-01 15:55:38 2021-08-01 16:48:02 Routine Visit Zarina Kennedy Nancy [facility] Professio nal Building 1.2.840.114 350.1.13.10 4.2.7.2.686 [id number] 134 [id number] [facility] 2021-08-01 16:15:00 2021-08-01 16:15:00 Outpatient WENDY WALDROP [facility] [id number] [facility] 2021-07-20 13:13:35 2021-07-20 13:57:45 Paint Stock Clerk Visit Ultrasound, Adc Mfm Sailaja Perry miguel Powell [facility] Building 1.2.840.114 350.1.13.10 4.2.7.2.686 [id number] 134 [id number] [facility] 2021-07-20 13:30:00 2021-07-20 13:30:00 Outpatient P [facility] [id number] [facility] 2021-07-18 09:45:00 2021-07-18 09:45:00 Outpatient R NICOLE WENDY [facility] [id number] [facility] 2021-07-18 08:15:00 2021-07-18 08:15:00 Outpatient R [facility] [id number] [facility] 2021-07-17 15:44:11 2021-07-17 16:52:37 Routine Visit Zarina Kennedy [facility] 1.2.840.114 350.1.13.10 4.2.7.2.686 [id number] 134 [id number] [facility] 2021-07-17 15:44:11 2021-07-17 16:52:37 Routine Visit Zarina Kennedy [facility] Building 1.2.840.114 350.1.13.10 4.2.7.2.686 [id number] 134 [id number] [facility] 2021-07-17 16:15:00 2021-07-17 16:15:00 [facility] [id number] [facility] 2021-07-17 00:00:00 2021-07-17 00:00:00 Orders Only Doctor Unassigned, [place] [facility] 1.2.840.114 350.1.13.10 4.2.7.2.686 [id number] 009 [id number] [facility] 2021-07-17 00:00:00 2021-07-17 00:00:00 Orders Only Doctor Unassigned, [place] [facility] 1.2.840.114 350.1.13.10 4.2.7.2.686 [id number] 009 [id number] [facility] 2021-07-09 11:15:00 2021-07-09 11:15:00 Outpatient R ZARINA KENNEDY [facility] [id number] [facility] 2021-07-03 00:00:00 2021-07-03 00:00:00 Telephone Zarina Kennedy [facility] 1.2.840.114 350.1.13.10 4.2.7.2.686 [id number] 134 [id number] [facility] 2021-07-03 00:00:00 2021-07-03 00:00:00 Telephone Zarina Kennedy [facility] Building 1.2.840.114 350.1.13.10 4.2.7.2.686 [id number] 134 [id number] [facility] 2021-06-28 10:40:29 2021-06-28 10:55:29 Paint Stock Clerk Visit 2, Adc Lab Zarina Kennedy [facility] Building 1.2.840.114 350.1.13.10 4.2.7.2.686 [id number] 353 [id number] [facility] 2021-06-28 10:40:29 2021-06-28 10:55:29 Paint Stock Clerk Visit 2, Adc Lab Zarina Kennedy [facility] Building 1.2.840.114 350.1.13.10 4.2.7.2.686 [id number] 353 [id number] [facility] 2021-06-28 10:00:00 2021-06-28 10:00:00 Outpatient R [facility] [id number] [facility] 2021-06-28 00:00:00 2021-06-28 00:00:00 Telephone Zarina Kennedy [facility] 1.2.840.114 350.1.13.10 4.2.7.2.686 [id number] 134 [id number] [facility] 2021-06-25 10:31:20 2021-06-25 11:38:32 Routine Visit Zarina Kennedy [facility] 1.2.840.114 350.1.13.10 4.2.7.2.686 [id number] 134 [id number] [facility] 2021-06-25 11:00:00 2021-06-25 11:00:00 Outpatient R ZARINA KENNEDY [facility] [id number] [facility] 2021-06-11 17:01:00 2021-06-11 19:52:00 Emergency Zarina Kennedy [facility] 1.2.840.114 350.1.13.10 4.2.7.2.686 [id number] 083 [id number] [facility] 2021-06-11 00:00:00 2021-06-11 00:00:00 Telephone Zarina Kennedy [facility] 1.2.840.114 350.1.13.10 4.2.7.2.686 [id number] 134 [id number] [facility] 2021-06-07 00:00:00 2021-06-07 00:00:00 Telephone Zarina Kennedy [facility] 1.2.840.114 350.1.13.10 4.2.7.2.686 [id number] 134 [id number] [facility] 2021-05-29 15:17:17 2021-05-29 15:49:09 Nurse Visit Nurse, [facility] Zarina Kennedy [facility] 1.2.840.114 350.1.13.10 4.2.7.2.686 [id number] 134 [id number] [facility] 2021-05-29 15:07:51 2021-05-29 15:22:51 Paint Stock Clerk Visit 2, Adc Lab Zarina Kennedy [facility] Professio nal Building 1.2.840.114 350.1.13.10 4.2.7.2.686 [id number] 353 [id number] [facility] 2021-05-29 15:00:00 2021-05-29 15:00:00 Outpatient R [facility] [id number] [facility] 2021-05-29 00:00:00 2021-05-29 00:00:00 Telephone Zarina Kennedy [facility] nal Building 1.2.840.114 350.1.13.10 4.2.7.2.686 [id number] 134 [id number] [facility] 2021-05-28 13:26:09 2021-05-28 14:18:04 Routine Visit Zarina Kennedy [facility] Building 1.2.840.114 350.1.13.10 4.2.7.2.686 [id number] 134 [id number] [facility] 2021-05-28 13:30:00 2021-05-28 13:30:00 Outpatient R ZARINA KENNEDY [facility] [id number] [facility] 2021-05-09 11:15:00 2021-05-09 11:15:00 Outpatient R JEDWENDY CR [facility] [id number] [facility] 2021-05-09 10:58:18 2021-05-09 11:13:18 Routine Visit Wendy [facility] 1.2.840.114 350.1.13.10 4.2.7.2.686 [id number] 134 [id number] [facility] 2021-05-07 00:00:00 2021-05-07 00:00:00 Telephone Zarina Kennedy [facility] 1.2.840.114 350.1.13.10 4.2.7.2.686 [id number] 134 [id number] [facility] 2021-04-27 12:57:28 2021-04-27 13:57:28 Paint Stock Clerk Visit Ultrasound, Adc henrik ZepedaKian grier Stevo [facility] 1.2.840.114 350.1.13.10 4.2.7.2.686 [id number] 134 [id number] [facility] 2021-04-27 13:00:00 2021-04-27 13:00:00 Outpatient R [facility] [id number] [facility] 2021-04-24 00:00:00 2021-04-24 00:00:00 Telephone Zarina Kennedy [facility] 1.2.840.114 350.1.13.10 4.2.7.2.686 [id number] 134 [id number] [facility] 2021-04-21 16:26:26 2021-04-21 16:59:11 Telemedici ne Visit iMhai Fernandez Unknown, Attending [facility] 1.2.840.114 350.1.13.10 4.2.7.2.686 [id number] [facility] 2021-04-21 16:30:00 2021-04-21 16:30:00 Outpatient R UNKNOWN, ATTENDING [facility] [id number] [facility] 2021-04-19 11:49:00 2021-04-19 16:10:00 Emergency Zarina Kennedy [facility] 1.2.840.114 350.1.13.10 4.2.7.2.686 [id number] 083 [id number] [facility] 2021-04-19 00:00:00 2021-04-19 00:00:00 Telephone Zarina Kennedy [facility] [place] Matheus lopez Building 1.2.840.114 350.1.13.10 4.2.7.2.686 [id number] 134 [id number] [facility] 2021-04-11 13:32:48 2021-04-11 13:47:48 Paint Stock Clerk Visit 2, Adc Lab Zarina Kennedy [facility] Lori lopez Building 1.2.840.114 350.1.13.10 4.2.7.2.686 [id number] 353 [id number] [facility] 2021-04-11 13:05:36 2021-04-11 13:28:34 Routine Visit Zarina Kennedy [facility] Lori lopez Building 1.2.840.114 350.1.13.10 4.2.7.2.686 [id number] 134 [id number] [facility] 2021-04-11 13:00:00 2021-04-11 13:00:00 Outpatient R ZARINA KENNEDY [facility] [id number] [facility] 2021-03-14 12:43:31 2021-03-14 13:35:28 Routine Visit Wendy Rivera [facility] Zahra [facility] Building 1.2.840.114 350.1.13.10 4.2.7.2.686 [id number] 134 [id number] [facility] 2021-03-14 12:43:31 2021-03-14 13:35:28 Routine Visit Wendy Rivera [facility] Zahra [facility] Building 1.2.840.114 350.1.13.10 4.2.7.2.686 [id number] 134 [id number] 2021-03-14 13:00:00 2021-03-14 13:00:00 [id number] 2021-02-28 00:00:00 2021-02-28 00:00:00 Telephone Zarina Kennedy [facility] 1.2.840.114 350.1.13.10 4.2.7.2.686 [id number] 134 [id number] [facility] 2021-02-21 13:15:00 2021-02-21 13:15:00 Outpatient R [facility] [id number] [facility] 2021-02-21 00:00:00 2021-02-21 00:00:00 Orders Only Doctor Unassigned, [place] [facility] 1.2.840.114 350.1.13.10 4.2.7.2.686 [id number] [id number] [facility] 2021-02-14 15:01:28 2021-02-14 15:58:16 Routine Visit Zarina Kennedy [facility] 1.2.840.114 350.1.13.10 4.2.7.2.686 [id number] 134 [id number] [facility] 2021-02-14 15:45:00 2021-02-14 15:45:00 Outpatient R ZARINA KENNEDY [facility] [id number] [facility] 2021-01-23 00:00:00 2021-01-23 00:00:00 Orders Only Doctor Unassigned, [place] [facility] 1.2.840.114 350.1.13.10 4.2.7.2.686 [id number] [id number] [facility] 2021-01-19 00:00:00 2021-01-19 00:00:00 Telephone Zarina Kennedy [facility] 1.2.840.114 350.1.13.10 4.2.7.2.686 [id number] 134 [id number] [facility] 2021-01-18 14:10:26 2021-01-18 14:25:26 Paint Stock Clerk Visit 2, Adc Lab Zarina Kennedy [facility] 1.2.840.114 350.1.13.10 4.2.7.2.686 [id number] 353 [id number] [facility] 2021-01-18 14:15:00 2021-01-18 14:15:00 Outpatient R [facility] [id number] [facility] 2021-01-18 00:00:00 2021-01-18 00:00:00 Case Management Wendy Rivera [facility] 1.2.840.114 350.1.13.10 4.2.7.2.686 [id number] 134 [id number] [facility] 2021-01-17 09:00:00 2021-01-17 09:00:00 Outpatient R [facility] [id number] [facility] 2021-01-16 08:45:00 2021-01-16 08:45:00 Outpatient R ZARINA KENNEDY [facility] [id number] [facility] 2021-01-16 00:00:00 2021-01-16 00:00:00 Telephone Zarina Kennedy [facility] 1.2.840.114 350.1.13.10 4.2.7.2.686 [id number] 134 [id number] [facility] 2021-01-15 11:32:17 2021-01-15 11:47:17 Paint Stock Clerk Visit 2, Adc Lab Zarina Kennedy [facility] 1.2.840.114 350.1.13.10 4.2.7.2.686 [id number] 353 [id number] [facility] 2021-01-15 10:17:01 2021-01-15 11:18:23 Initial Visit Zarina Kennedy [facility] 1.2.840.114 350.1.13.10 4.2.7.2.686 [id number] 134 [id number] [facility] 2021-01-15 10:00:00 2021-01-15 10:00:00 Outpatient R BRENT ZARINA [facility] [id number] [facility] 2021-01-15 00:00:00 2021-01-15 00:00:00 Telephone Zarina Kennedy Marcus [facility] Building 1..840.114 350.1.13.10 4.2.7.2.686 [id number] 134 [id number] [facility] 2021-01-15 00:00:00 2021-01-15 00:00:00 Orders Only Doctor Unassigned, [place] [facility] 1.2840.114 350.1.13.10 4.2.7.2.686 [id number] [id number] [facility] 2021-01-13 18:29:00 2021-01-13 22:52:00 Emergency Kary Lopez [facility] 1.840.114 350.1.13.10 4.2.7.2.686 [id number] 084 [id number] [facility] 2020-12-01 10:52:00 2020-12-01 12:00:00 Emergency GERMAN MARTÍNEZ [facility] [id number] [facility] 2020-07-11 10:39:46 2020-07-11 11:22:54 Office Visit Norma Partida [facility] Building 1.2.840.114 350.1.13.10 4.2.7.2.686 [id number] 134 [id number] [facility] 2020-07-11 11:00:00 2020-07-11 11:00:00 Outpatient R NORMA PARTIDA [facility] [id number] [facility] 2020-07-11 00:00:00 2020-07-11 00:00:00 Orders Only Doctor Unassigned, [place] [facility] 1.2840.114 350.1.13.10 4.2.7.2.686 [id number] [facility] 2020-07-05 16:00:00 2020-07-05 16:00:00 Outpatient R NORMA PARTIDA [facility] [id number] [facility] 2020-06-21 15:22:00 2020-06-21 18:25:00 Emergency Viviana Downey [facility] 1.840.114 350.1.13.10 4.2.7.2.686 [id number] [facility] 2020-06-21 00:00:00 2020-06-21 00:00:00 Orders Only Doctor Unassigned, [place] [facility] 1.2840.114 350.1.13.10 4.2.7.2.686 [id number] [facility] 2020-05-01 00:00:00 2020-05-01 00:00:00 Orders Only Doctor Unassigned, [place] [facility] 1.840.114 350.1.13.10 4.2.7.2.686 [id number] [facility] 2020-02-28 11:00:00 2020-02-28 11:00:00 [id number] 2020-02-28 08:13:41 2020-02-28 08:28:41 Telemedici ne Visit Nicole [facility] 1..840.114 350.1.13.10 4.2.7.2.686 [id number] [facility] 2020-02-26 11:00:00 2020-02-26 11:00:00 Outpatient R UNKNOWN, [place] [facility] [id number] [facility] 2020-02-21 00:00:00 2020-02-21 00:00:00 Telephone Nicole [facility] 1.2840.114 350.1.13.10 4.2.7.2.686 [id number] 134 [id number] [facility] 2020-02-04 00:00:00 2020-02-04 00:00:00 Telephone Wendy Rivera [facility] 1.2840.114 350.1.13.10 4.2.7.2.686 [id number] 134 [id number] [facility] 2020-02-02 00:00:00 2020-02-02 00:00:00 Refill Zarina Kennedy [facility] 1.2840.114 350.1.13.10 4.2.7.2.686 [id number] [facility] 2020-01-30 23:20:00 2020-02-01 13:32:00 Hospital Encounter Zarina Kennedy [facility] 1.2840.114 350.1.13.10 4.2.7.2.686 [id number] 083 [id number] [facility] 2020-01-31 11:00:00 2020-01-31 11:00:00 Outpatient R WENDY RIVERA [facility] [id number] [facility] 2020-01-30 00:00:00 2020-01-30 00:00:00 Orders Only Doctor Unassigned, [place] [facility] 1.2840.114 350.1.13.10 4.2.7.2.686 [id number] 009 [id number] [facility] 2020-01-28 00:00:00 2020-01-28 00:00:00 [facility] 1.2840.114 350.1.13.10 4.2.7.2.686 [id number] 134 [id number] [facility] 2020-01-24 14:38:36 2020-01-24 14:53:36 Paint Stock Clerk Visit 2, Adc Lab Zarina Kennedy [facility] Professio nal Building 1.2.840.114 350.1.13.10 4.2.7.2.686 [id number] [facility] 2020-01-24 13:22:06 2020-01-24 14:11:49 Routine Visit Zarina Kennedy [facility] 1.2.840.114 350.1.13.10 4.2.7.2.686 [id number] 134 [id number] [facility] 2020-01-24 13:15:00 2020-01-24 13:15:00 Outpatient R ZARINA KENNEDY [facility] [id number] [facility] 2020-01-24 00:00:00 2020-01-24 00:00:00 Orders Only Doctor Unassigned, [place] [facility] 1.2.840.114 350.1.13.10 4.2.7.2.686 [id number] 009 [id number] [facility] 2020-01-23 03:41:00 2020-01-23 07:15:00 Hospital Encounter Marco A Nieto [facility] 1.2.840.114 350.1.13.10 4.2.7.2.686 [id number] 083 [id number] [facility] 2020-01-21 21:41:00 2020-01-22 01:25:00 Hospital Encounter Marco A Nieto [facility] 1.2.840.114 350.1.13.10 4.2.7.2.686 [id number] 083 [id number] [facility] 2020-01-20 00:00:00 2020-01-20 00:00:00 Case Management Zarina Kennedy [facility] 1.2.840.114 350.1.13.10 4.2.7.2.686 [id number] 134 [id number] [facility] 2020-01-18 12:35:00 2020-01-18 15:00:00 Hospital Encounter Zarina Kennedy [facility] 1.2.840.114 350.1.13.10 4.2.7.2.686 [id number] 083 [id number] [facility] 2020-01-18 12:35:00 2020-01-18 12:35:00 Outpatient P ZARINA KENNEDY [facility] JONI [id number] [facility] 2020-01-10 13:56:38 2020-01-10 14:42:48 [facility] 1.2840.114 350.1.13.10 4.2.7.2.686 [id number] 134 [id number] [facility] 2020-01-10 14:00:00 2020-01-10 14:00:00 Outpatient R [facility] [id number] [facility] 2020-01-06 11:15:00 2020-01-06 11:15:00 Outpatient R ZARINA KENNEDY [facility] [id number] [facility] 2020-01-06 00:00:00 2020-01-06 00:00:00 Nurse Triage Eda Santos [facility] 1.2840.114 350.1.13.10 4.2.7.2.686 [id number] 019 [id number] [facility] 2019-12-08 13:39:40 2019-12-08 14:27:14 [facility]ine [facility] 1.2840.114 350.1.13.10 4.2.7.2.686 [id number] 134 [id number] [facility] 2019-11-01 12:45:26 2019-11-01 13:14:04 Office Visit Martha Cohn Joseph W [facility] 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 [facility] 1.2840.114 350.1.13.10 4.2.7.2.686 [id number] [facility] 2019-07-29 00:00:00 2019-07-29 00:00:00 Telephone Zarina Kennedy [facility] Zahra [facility] 1.2.840.114 350.1.13.10 4.2.7.2.686 [id number] 134 [id number] [facility] 2019-07-28 00:00:00 2019-07-28 00:00:00 Case Management [facility] 1.2.840.114 350.1.13.10 4.2.7.2.686 [id number] 134 [id number] [facility] 2019-07-27 15:56:23 2019-07-27 16:11:23 Nurse Visit Nurse, [facility] Zarina Kennedy [facility] 1.2.840.114 350.1.13.10 4.2.7.2.686 [id number] 134 [id number] [facility] 2019-07-23 00:00:00 2019-07-23 00:00:00 Telephone [facility] Kennedy [facility] 1.2.840.114 350.1.13.10 4.2.7.2.686 [id number] 134 [id number] [facility] 2019-07-21 13:20:15 2019-07-21 13:35:15 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 1.2.840.114 350.1.13.10 4.2.7.2.686 [id number] [facility] 2019-07-20 16:27:05 2019-07-20 17:06:12 Routine Visit [facility] Kennedy [facility] 1.2.840.114 350.1.13.10 4.2.7.2.686 [id number] 134 [id number] [facility] 2019-07-15 00:00:00 2019-07-15 00:00:00 Telephone Zarina Kennedy [facility] Zahra [facility] 1.2.840.114 350.1.13.10 4.2.7.2.686 [id number] 134 [id number] [facility] 2019-07-14 00:00:00 2019-07-14 00:00:00 Telephone Zarina Kennedy [facility] 1.2.840.114 350.1.13.10 4.2.7.2.686 [id number] 134 [id number] [facility] 2019-07-07 14:11:07 2019-07-07 16:17:14 Initial Visit [facility] Kennedy [facility] 1.2.840.114 350.1.13.10 4.2.7.2.686 [id number] 134 [id number] [facility] 2019-07-07 00:00:00 2019-07-07 00:00:00 Orders Only Doctor Unassigned, [place] [facility] 1.2.840.114 350.1.13.10 4.2.7.2.686 [id number] 009 [id number] [facility] Results Test Description Test Time Test Comments Results Result Co mments Source [facility] (NA, K, CL, CO2, GLUCOSE, BUN, CREATININE, CA)2023-10-14 11:07:11* Test Item Value Reference Range Interpretation Comme nts NA (test code = 4856548206) 138 mmol/L 135-145 K (test code = 9703627506) 3.5 mmol/L 3.5-5.0 CL (test code = 2984751033) 113 mmol/L 98-108 H CO2 TOTAL (test code = 9713413074) 17 mmol/L 23-31 L AGAP (test code = 5438741137) 8 2-16 BUN (test code = 7711591874) 11 mg/dL 7-23 GLUCOSE (test code = 5617342442) 81 mg/dL 70-110 CREATININE (test code = 7965646484) 0.42 mg/dL 0.50-1.04 L CALCIUM (test code = 8343131859) 8.2 mg/dL 8.6-10.6 L eGFR (test code = 84266-0) 142.0 mL/min/1.73m2 CKD-EPI eGFR (2020). Assuming creatinine has been stable day-to-day for at least three months, the eGFR indicates Category G1 (>= 90 mL/min/1.73 m2) Lab Interpretation (test code = 57739-3) Abnormal General acute hospital with Zbobsrpqujnb4520-78-31 10:52:48* Test Item Value Reference Range Interpretation Comme nts WBC (test code = 6690-2) 7.73 See_Comment [Automated [employer]] The system which generated this result transmitted reference range: 4.30 - 11.10 10*3/?L. The reference range was not used to interpret this result as normal/abnormal. RBC (test code = 789-8) 3.67 See_Comment L [Automated [employer] ge] The system which generated this result [...] 33.4 g/dL 31.6-35.1 RDW-SD (test code = 41888-6) 39.2 fL 39.0-49.9 RDW-CV (test code = 788-0) 12.2 % 12.0-15.5 PLT (test code = 777-3) 240 See_Comment [Automated [employer] ge] The system which generated this result transmitted reference range: 166 - 358 10*3/?L. The reference range was not used to interpret this result as normal/abnormal. MPV (test code = 34942-8) 9.5 fL 9.5-12.9 NRBC/100 WBC (test code = 2588255684) 0.0 See_Comment [Automated me ssage] The system which generated this result transmitted reference range: 0.0 - 10.0 /100 WBCs. The reference range was not used to interpret this result as normal/abnormal. NRBC x10^3 (test code = 5348513009) See_Comment [Automated messa ge] The system which generated this result transmitted reference range: 10*3/?L. The reference range was not used to interpret this result as normal/abnormal. GRAN MAT (NEUT) % (test code = 770-8) 53.1 % IMM GRAN % (test code = 5810188277) 0.30 % LYMPH % (test code = 736-9) 37.8 % MONO % (test code = 5905-5) 5.2 % EOS % (test code = 713-8) 3.2 % BASO % (test code = 706-2) 0.4 % GRAN MAT x10^3(ANC) (test code = 0004888755) 4.11 10*3/uL 1.88-7.09 IMM GRAN x10^3 (test code = 3614958438) 0.00-0.06 LYMPH x10^3 (test code = 731-0) 2.92 10*3/uL 1.32-3.29 MONO x10^3 (test code = 742-7) 0.40 10*3/uL 0.33-0.92 EOS x10^3 (test code = 711-2) 0.25 10*3/uL 0.03-0.39 BASO x10^3 (test code = 704-7) 0.03 10*3/uL 0.01-0.07 Lab Interpretation (test code = 87651-3) Abnormal [facility] METABOLIC PANEL (NA, K, CL, CO2, GLUCOSE, BUN, CREATININE, CA)2023-10-14 02:10:35* Test Item Value Reference Range Interpretation Comme nts NA (test code = 8676143908) 134 mmol/L 135-145 L K (test code = 4326810179) 3.4 mmol/L 3.5-5.0 L CL (test code = 3533677176) 111 mmol/L 98-108 H CO2 TOTAL (test code = 8966945284) 17 mmol/L 23-31 L AGAP (test code = 0696716788) 6 2-16 BUN (test code = 9497252729) 14 mg/dL 7-23 GLUCOSE (test code = 2962868829) 82 mg/dL 70-110 CREATININE (test code = 8439393871) 0.45 mg/dL 0.50-1.04 L CALCIUM (test code = 6353764887) 8.0 mg/dL 8.6-10.6 L eGFR (test code = 55986-1) 139.7 mL/min/1.73m2 CKD-EPI eGFR (2020). Assuming creatinine has been stable day-to-day for at least three months, the eGFR indicates Category G1 (>= 90 mL/min/1.73 m2) Lab Interpretation (test code = 78328-9) Abnormal General acute hospital WITH DCHG7158-13-22 01:49:54* Test Item Value Reference Range Interpretation Comme nts WBC (test code = 6690-2) 10.05 See_Comment [Automated [employer]] The system which generated this result transmitted reference range: 4.30 - 11.10 10*3/?L. The reference range was not used to interpret this result as normal/abnormal. RBC (test code = 789-8) 3.78 See_Comment L [Automated [employer] ge] The system which generated this result [...] 33.6 g/dL 31.6-35.1 RDW-SD (test code = 77710-3) 39.0 fL 39.0-49.9 RDW-CV (test code = 788-0) 12.4 % 12.0-15.5 PLT (test code = 777-3) 251 See_Comment [Automated [employer] ge] The system which generated this result transmitted reference range: 166 - 358 10*3/?L. The reference range was not used to interpret this result as normal/abnormal. MPV (test code = 81866-4) 9.4 fL 9.5-12.9 L NRBC/100 WBC (test code = 4891895075) 0.0 See_Comment [Automated [employer] ssage] The system which generated this result transmitted reference range: 0.0 - 10.0 /100 WBCs. The reference range was not used to interpret this result as normal/abnormal. NRBC x10^3 (test code = 4508844747) See_Comment [Automated [employer] ge] The system which generated this result transmitted reference range: 10*3/?L. The reference range was not used to interpret this result as normal/abnormal. GRAN MAT (NEUT) % (test code = 770-8) 62.2 % IMM GRAN % (test code = 6457578602) 0.30 % LYMPH % (test code = 736-9) 28.4 % MONO % (test code = 5905-5) 6.7 % EOS % (test code = 713-8) 2.1 % BASO % (test code = 706-2) 0.3 % GRAN MAT x10^3(ANC) (test code = 8250507713) 6.26 10*3/uL 1.88-7.09 IMM GRAN x10^3 (test code = 6067969215) 0.03 10*3/uL 0.00-0.06 LYMPH x10^3 (test code = 731-0) 2.85 10*3/uL 1.32-3.29 MONO x10^3 (test code = 742-7) 0.67 10*3/uL 0.33-0.92 EOS x10^3 (test code = 711-2) 0.21 10*3/uL 0.03-0.39 BASO x10^3 (test code = 704-7) 0.03 10*3/uL 0.01-0.07 Lab Interpretation (test code = 56598-5) Abnormal [facility] (40344)2023 04:40:07* Test Item Value Reference Range Interpretation Comme nts NA (test code = 2961619577) 142 mmol/L 135-145 K (test code = 3412061515) 3.6 mmol/L 3.5-5.0 CL (test code = 1828383474) 109 mmol/L 98-108 H CO2 TOTAL (test code = 8553488620) 21 mmol/L 23-31 L AGAP (test code = 3829718933) 12 2-16 BUN (test code = 4671327740) 11 mg/dL 7-23 GLUCOSE (test code = 7547636167) 106 mg/dL 70-110 CREATININE (test code = 7268373563) 0.62 mg/dL 0.50-1.04 TOTAL BILI (test code = 4352598244) 0.2 mg/dL 0.1-1.1 CALCIUM (test code = 3930361628) 9.4 mg/dL 8.6-10.6 T PROTEIN (test code = 9212470682) 7.4 g/dL 6.3-8.2 ALBUMIN (test code = 5010014111) 4.5 g/dL 3.5-5.0 ALK PHOS (test code = 5927756330) 79 U/L 34-122 ALTv (test code = 1742-6) 32 U/L 5-35 AST(SGOT) (test code = 6059033901) 28 U/L 13-40 eGFR (test code = 95213-8) 130.1 mL/min/1.73m2 CKD-EPI eGFR (2020). Assuming creatinine has been stable day-to-day for at least three months, the eGFR indicates Category G1 (>= 90 mL/min/1.73 m2) Lab Interpretation (test code = 89213-0) Abnormal General acute hospital WITH ABOE9860-05-13 04:29:09* Test Item Value Reference Range Interpretation Comme nts WBC (test code = 6690-2) 7.15 See_Comment [Automated [employer] ge] The system which generated this result transmitted reference range: 4.30 - 11.10 10*3/?L. The reference range was not used to interpret this result as normal/abnormal. RBC (test code = 789-8) 4.45 See_Comment [Automated [employer]] The system which generated this result transmitted [...] 33.4 g/dL 31.6-35.1 RDW-SD (test code = 57085-7) 40.4 fL 39.0-49.9 RDW-CV (test code = 788-0) 12.6 % 12.0-15.5 PLT (test code = 777-3) 269 See_Comment [Automated [employer]] The system which generated this result transmitted reference range: 166 - 358 10*3/?L. The reference range was not used to interpret this result as normal/abnormal. MPV (test code = 94399-0) 9.6 fL 9.5-12.9 NRBC/100 WBC (test code = 7350252146) 0.0 See_Comment [Automated me ssage] The system which generated this result transmitted reference range: 0.0 - 10.0 /100 WBCs. The reference range was not used to interpret this result as normal/abnormal. NRBC x10^3 (test code = 0243425945) See_Comment [Automated [employer]Proc[employer] ssage] The system which generated this result transmitted reference range: 10*3/?L. The reference range was not used to interpret this result as normal/abnormal. GRAN MAT (NEUT) % (test code = 770-8) 69.3 % IMM GRAN % (test code = 5731615908) 0.10 % LYMPH % (test code = 736-9) 22.2 % MONO % (test code = 5905-5) 7.0 % EOS % (test code = 713-8) 1.1 % BASO % (test code = 706-2) 0.3 % GRAN MAT x10^3(ANC) (test code = 1598943051) 4.95 10*3/uL 1.88-7.09 IMM GRAN x10^3 (test code = 0418608201) 0.00-0.06 LYMPH x10^3 (test code = 731-0) 1.59 10*3/uL 1.32-3.29 MONO x10^3 (test code = 742-7) 0.50 10*3/uL 0.33-0.92 EOS x10^3 (test code = 711-2) 0.08 10*3/uL 0.03-0.39 BASO x10^3 (test code = 704-7) 0.01-0.07 [facility] BGYP2569-94-25 04:05:00* Test Item Value Reference Range Interpretation Comme nts POCT PREG (test code = 1605) Negative On board controls acceptable with C Line (test code = 3574) Yes POCT PREG LOT # (test code = 3575) [id number] POCT PREG TEST DATE ( test code = 3576) 11/12/2024 Lab Interpretation (test cod e = 03148-5) Normal [facility], THIRD VAJGCJKXCJ9890-35-31 06:03:21* Test Item Value Reference Range Interpretation Comme nts TSH, THIRD GENERATION (test code = 2821) 1.000 UIU/ML 0.400-4.100 UNLESS OTHERWISE INDICATED, ALL TESTING PERFORMED AT [facility] [address] [place] [address] EXECUTIVE RECRUITER: DOMITILA YOUNG M.D. CLIA NUMBER [id number] [facility] [place]. [id number] LIPID [id number] 06:02:54* Test Item Value Reference Range Interpretation Comme nts CHOLESTEROL (test code = 2210) 185 MG/DL <200 TRIGLYCERIDES (test code = 2232) 50 MG/DL <150 HDL CHOLESTEROL (test code = 2220) 48 MG/DL >39 CALC LDL CHOL (test code = 2237) 123 MG/DL <100 H NOTE: CALCULATED LDL IS BASED ON LYNETTE-HARTMANN METHOD WHICHINCLUDES ADJUSTABLE TRIGLYCERIDE:VLDL CHOLESTEROL RATIO.THIS FACTOR VARIES BY MEASURED TRIGLYCERIDE AND NON-HDLCHOLESTEROL CONCENTRATIONS WITH INCREASED CALCULATED LDL SEENIN HIGHER TRIGLYCERIDE OR LOWER NON-HDL SPECIMENS. FOR MOREINFORMATION, SEE CLIENT ANNOUNCEMENT AT [email or web address] RISK RATIO LDL/HDL (test code = 2237) 2.56 RATIO <3.22 COMPREHENSIVE METABOLIC [id number] 06:02:54* Test Item Value Reference Range Interpretation Comme nts GLUCOSE (test code = 2216) 84 MG/DL 70-99 BUN (test code = 2207) 9 MG/DL 6-20 CREATININE (test code = 2213) 0.67 MG/DL 0.60-1.30 eGFR (2020 CKD-EPI) (test code = ) 127 ML/MIN/1.73 >60 CALC BUN/CREAT (test code [...] 88 U/L 39-117 AST (test code = 221) 22 U/L 9-40 ALT (test code = 221) 30 U/L 5-40 CBC W/AUTO DIFF WITH JHZFSVHBL2425-09-89 04:02:12* Test Item Value Reference Range Interpretation [...] = 1065) 0.0 /100 WBC'S See_Comment [Automated [employer] ge] The system which generated this result [...] 0.00-0.10 ABS NUCLEATED RBCS (test code = 02690) 0.00 K/UL 0.00-0.11 HEMOGLOBIN Y7w0831-09-88 03:49:49* Test Item Value Reference Range Interpretation Comme nts HEMOGLOBIN A1c (test code = 83739) 5.3 % 4.2-5.6 Notes Date/Time Note Provider Source 2024-04-14 15:50:00 7697-20-52W59:50:00 Received call from registration that patient returned the urine cup and left the lobby. 54364-3Mllygajkh department RgblEM3531-36-03K93:54:04[facility] NoteTXT1.2.840.498880.1.13.104.2.7.2.727 879|[id number] for patient ancp50474-3CgezHGHVXKNAMTESxhmttwrq C-CDA narrative [id number] L Barker RN[id number] GARCIAPZIURFGRTFPLZBUNQL9390-75-23B46:54:041.2 .840.806570.1.72.3.15|1.2.840.789452.1.1 3.104.2.7.2.727879_[id number] Priya De Los Santos RN [facility] 2024-04-14 14:53:55 8467-49-72Z06:53:55 Pt stating she can't taste or feel part of her tongue. Feels like left side of face is swollen. Unsure of when exactly it happened. States this has happened before but it was her legs. Ambulated without obvious gait disturbances. 25278-5Vfpmrtjez department Triage yiknRM8311-87-19S20:00:04[facility] department Triage noteTXT1.2.840.523245.1.13.104.2.7.2.727 879|[id number] for patient dolx49185-5Mqlxqaphg department NoteLNNARRATIVEFormatted C-CDA narrative [id number] Fief RN[id number] CAQEIYXCQPSYAYZAXR4314-69-57B58:00:041.2 .840.858033.1.72.3.15|1.2.840.134044.1.1 3.104.2.7.2.727879_[id number] Esperanza Frazier RN [facility] 2024-04-11 14:15:46 0190-77-23R82:15:46 Patient dc home. Take otc meds per MD machado instructions. Verbalized understanding. Signed paper work. 02003-2Rqvbwrnys department CajlEM4614-96-68G27:16:39[facility] NoteTXT1.2.840.310717.1.13.104.2.7.2.727 879|[id number] for patient sqtj59776-2NlhyVXELHLJKWECKsodqrbzh C-CDA narrative text[address] AashXku[id number] HNJNNBKYJCIRABXWOX9839-46-91A17:16:391.2 .840.208739.1.72.3.15|1.2.840.210147.1.1 3.104.2.7.2.727879_[id number] [facility] 2024-04-11 12:35:41 4027-80-00G19:35:41 Complains of sore throat x2 days with fever. 79055-6Nmizkkeaq department Triage qicfHC3911-08-47S16:35:57[facility] department Triage noteTXT1.2.840.393273.1.13.104.2.7.2.727 879|[id number] for patient aazz87531-1Tmlasfszr department NoteLNNARRATIVEFormatted C-CDA narrative [id number] Adalid Zaragoza RN[address] AhltNhmeqnxleOuuivtfwoEZRL4197212144EQKK QTCJXGMKUUONVNAJRF2472-57-71I61:35:571.2 .840.944414.1.72.3.15|1.2.840.589011.1.1 3.104.2.7.2.727879_[id number] Cali Cordoba Mila CORONEL [facility] 2024-04-11 12:29:00 8399-06-19M96:29:00 Images from the original note were not included.[facility] Emergency Department NotePatient Name: Devi Santos of : 2000 23 year old femaleTreatment Room: Room/bed info not foundMedical Record Number: [id number] Care Physician: Reyna CampbellPatient Escorted by: Self [9]Mode of Arrival: Personal means [1]EMS Treatment Prior to ED Arrival:Travel and Exposure Screening:SymptomsDoes patient have any of these symptoms?: (not recorded)Exposure ScreeningHas patient had contact with someone with a communicable disease in the last month?: (not recorded)Diseases exposed to:: (not recorded)Is Patient ?: (not recorded)Exposure Date: (not recorded)Chief Complaint:Chief ComplaintPatient presents withSore ThroatHistory of Present Illness:2-3 days of worsening sore throat and pain with swallowing and intermittent fevers, son sick with similar. No prior evaluation.took dayquil earlier without relief. No drooling. No appetite. No known medical problems or daily medications. Still urinating well.Past Medical History/Immunizations:Past Medical History:Diagnosis DateAnxietyAsthma 12/11/2018Bipolar disorder, mixedCalculus of kidney 3DepressionMild pre-eclampsia in third trimester 1Allergies:No Known AllergiesPast Social History:Tobacco UseEvery Day; Cigarettes: Last attempted to quit 07/05/2019Smokeless Tobacco: Never used smokeless tobacco.Comments: 1/2 PPD, and vapsVaping UseEvery day; Substances: Nicotine; Devices: Pre-filled or refillable cartridgeAlcohol UseYes.Comments: occassionallyDrug UseNever.Sexual ActivitySexually active; Partners: Male; Control/Protection: Injection.Past Surgical History:Past Surgical History:Procedure Laterality DateBIOPSY SOFT TISSUE BACK,SUPERFCHOLECYSTECTOMY 02/19/2020URETEROSCOPIC STONE MANIPULATION Right 10/10/2023Surgeon: Mallorie Alejandra MD; [facility] OR LOCATIONReview of Systems:Review of SystemsConstitutional: Positive for activity change, appetite change, fatigue and fever. Negative for chills.HENT: Positive for sore throat and trouble swallowing. Negative for drooling and facial swelling.Respiratory: Negative for cough and shortness of breath.Cardiovascular: Negative for chest pain.Gastrointestinal: Negative for abdominal pain, nausea and vomiting.All other systems reviewed and are negative.Physical Exam:ED Triage Vitals [04/11/24 1236]Weight 59 kg (130 lb)Actual or estimatedHeight 1.575 m (5' 2")BP 122/77Pulse 106Resp 20Temp 37 ?C (98.6 ?F)Temp srcSpO2 100 %Measured onPhysical ExamVitals and nursing note reviewed.Constitutional:General: She is not in acute distress.Appearance: She is well-developed. She is not ill-appearing or toxic-appearing.HENT:Head: Normocephalic and atraumatic.Nose: Nose normal.Mouth/Throat:Pharynx: Uvula midline.Tonsils: No tonsillar exudate or tonsillar abscesses. 2+ on the right. 2+ on the left.Eyes:General: No scleral icterus.Neck:Vascular: No JVD.Cardiovascular:Rate and Rhythm: Normal rate and regular rhythm.Pulses: Normal pulses.Pulmonary:Effort: Pulmonary effort is normal. No respiratory distress.Abdominal:General: There is no distension.Palpations: Abdomen is soft.Musculoskeletal:Cervical back: Normal range of motion and neck supple. No rigidity.Lymphadenopathy:Cervical: Cervical adenopathy present.Skin:Capillary Refill: Capillary refill takes less than 2 seconds.Findings: No erythema or rash.Neurological:Mental Status: She is alert.Psychiatric:Behavior: Behavior normal.Thought Content: Thought content normal.Judgment: Judgment normal.Radiology:No orders to displayLab Results:Lab ResultsPOCT TEST - NormalResult Value Ref RangePOCT PREG NegativeOn board controls acceptable with C Line YesINFLUENZA A/B RSV COVID NAAT - NormalInfluenza A NAAT Negative NegativeInfluenza B NAAT Negative NegativeRSV by PCR Negative [id number] NAAT Negative NegativeRAPID STREP SCREEN FOR GROUP A - NormalMolecular Strep Negative NegativeTHROAT CULTUREEKG:If EKG completed, see Procedure Note.Orders and Treatments:Orders Placed This EncounterProceduresPOCT TestInfluenza A B RSV COVID NAATRAPID STREP SCREEN FOR GROUP AThroat CultureLab Only COVID InterpretationOrders Placed This EncounterMedicationsdexamethasone sod phos PF injection 10 mgFirst Provider Eval:ED EventsDate/Time Event User Leiwolzu27/02/24 1229 Medical Screening Begins FIDE FREITAS MD --04/11/24 1229 First Provider Evaluation FIDE FREITAS MD --ED COURSEDiagnosis/Impression as of 04/11/24 1337Sore throatViral pharyngitisProcedures:ProceduresMDM:Medi jose Decision MakingCovid vs flu vs strep vs rsv vs viral uri, not consistent on exam with peritonsillar abscess or deep neck space abscess or epiglottitis. Swabs, IM decadron.Swabs negative. Strep negative. Discharge with otc medications, follow up outpatientProblems Addressed:Sore throat: complicated acute illness or injuryViral pharyngitis: complicated acute illness or injury with systemic symptomsAmount and/or Complexity of Data ReviewedLabs: ordered. Decision-making details documented in ED Course.RiskOTC drugs.Prescription drug management.Flowsheet Documentation:Scoring Tools:No data recordedDisposition/Condition:ED DispositionED DispositionDisch - HomeConditionStableComment--Discharge Medications:Patient's MedicationsSTART taking these medicationsNo medications on fileCONTINUE taking these medications which have NOT CHANGEDACETAMINOPHEN-CODEINE 300-30 MG TABLET TAKE 1 TABLET BY MOUTH EVERY 8 HOURS NEEDED FOR ACUTE PAINALBUTEROL SULFATE HFA INHALE Inhale.CETIRIZINE 10 MG TABLET Take 1 tablet by mouth in the morning.CYCLOBENZAPRINE 5 MG TABLET Take 1 tablet by mouth 2 (two) times daily as needed.DICLOFENAC 75 MG EC TABLETEMTRICITABINE-TENOFOVIR, TDF, 200-300 MG TABLET Take 1 tablet by mouth every 24 (twenty-four) hours.FLUOXETINE 40 MG CAPSULE Take 1 capsule by mouth every morning.GABAPENTIN 100 MG CAPSULE Take 2 capsules by mouth in the morning and 2 capsules in the evening.IBUPROFEN 600 MG TABLET TAKE 1 TABLET BY MOUTH TWICE A DAY NEEDEDKETOROLAC 10 MG TABLET Take 1 tablet by mouth every 6 (six) hours as needed for Pain (scale 7-10).METHOCARBAMOL 500 MG TABLET Take 1 tablet by mouth 3 (three) times daily as needed for Pain (scale 4-6) or Pain (scale 7-10).ONDANSETRON 4 MG TABLET Take 1 tablet by mouth every 8 (eight) hours as needed for Nausea and Vomiting (N/V).QUETIAPINE 50 MG TABLET Take 1 tablet by mouth in the morning.SULFAMETHOXAZOLE-TRIMETHOPRIM (BACTRIM DS) 800-160 MG PER TABLET Take 1 tablet by mouth in the morning and 1 tablet in the evening.TAMSULOSIN (FLOMAX) 0.4 MG 24 HR CAPSULE Take 1 capsule by mouth in the morning.UBROGEPANT (UBRELVY) 100 MG TAB Ubrelvy 100 mg tabletTake 1 tablet by oral route as needed.START taking Modified Medications as PrescribedNo medications on fileSTOP taking these medicationsNo medications on fileFollow-up:Electronically signed by:Fide Freitas MD04/11/24 1337 [id number] Emergency department [id number]:37:15Physician Emergency department [id number] 879|[id number] for patient orgp50048-4Tqhccxamt department NoteLNNARRATIVEFormatted C-CDA narrative textUTROOSEVELT [facility] - [address] L[id number] RLHIDCEGDHYJIFDWQT0995-58-10M47:37:151.2 .840.243450.1.72.3.15|1.2.840.855621.1.1 [id number] [facility] 2023-11-13 13:45:00 [id number]:45:00 Images from the original note were not included.Venipuncture collection performed by clean technique on the left anticubitus. Total of 1 attempts were made. Slight pressure and a bandage/dressing were applied to the site(s). The patient experienced no complications. The following specimens were processed according to instructions and sent to [facility] laboratories per lab order on 11/13/2023:LT BLUESST 3RED 1LAVPPTDK GREEN (LiHep)DK GREEN (SodH)GRAYDK BLUE (K2)DK BLUE (S)ACDBlood CultureNIPT/NTD [id number] [id number]:36:03Nurse [id number] 879|[id number] for patient [id number] NoteLNNARRATIVEFormatted C-CDA narrative text[address] S[id number] UFZBEEOCSXNXRQELWX6822-20-90Z53:36:031.2 .840.869292.1.72.3.15|1.2.840.869734.1.1 [id number] [facility] 2023-11-13 13:15:00 [id number]:15:00Addended by: FIORDALIZA TATUM RN on: 11/13/2023 01:45 PMModules accepted: Orders [id number] [id number]:45:27Addendum [id number] .[id number] for patient [id number] C-CDA narrative text[address] Cb[id number] [id number]:45:271.2 .840.363357.1.72.3.15|1.2.840.487006.1.1 [id number] [facility]
--- NOTE | 2024-05-02 19:19 | EDPHYS ---
Physician Documentation [facility] Name: Dvei Calvert Age: 23 yrs Sex: Female : 2000 Arrival Date: 05/02/2024 Time: 17:56 Bed IW3 Private MD: ED Physician Raffaele Simpson HPI: 05/02 19:00 This 23 yrs old Female presents to ER via Ambulatory with complaints of cp Difficulty Swallowing, Breathing Difficulty, Throat Swelling. 19:00 The patient presents with sore throat, dysphagia, of both solids and liquids. The cp patient describes throat pain as constant. Onset: The symptoms/episode began/occurred 2 day(s) ago. 19:00 Associated signs and symptoms: Pertinent positives: fever, shortness of breath cp Pertinent negatives cough, diarrhea, vomiting. Historical: - Allergies: 18:11 No Known Allergies; ll1 - PMHx: 18:11 Asthma; Depression; IPH; Migraines; previous suicide attempt; Anxiety; Schizophrenia; ll1 vocal chords problem; - PSHx: 18:11 Cholecystectomy; ll1 - Immunization history:: Adult Immunizations up to date. - Infectious Disease History:: Denies. - Social history:: Smoking status: Patient reports the use of cigarette tobacco products, smokes one-half pack cigarettes per day. ROS: 19:05 Constitutional: Positive for fever, Negative for poor PO intake, cp 19:05 Eyes: Negative for injury, pain, redness, and discharge, cp 19:05 ENT: Positive for difficulty swallowing, sore throat, Negative for drainage from ear(s), ear pain, difficulty handling secretions, 19:05 Cardiovascular: Negative for chest pain, 19:05 Respiratory: Negative for cough, shortness of breath, wheezing, 19:05 Abdomen/GI: Negative for abdominal pain, vomiting, diarrhea, constipation, 19:05 Skin: Negative for rash, 19:05 Neuro: Negative for altered mental status, headache, weakness, 19:05 All other systems are negative, Exam: 19:10 Constitutional: The patient appears in no acute distress, alert, awake, non-toxic, well cp developed, well nourished, uncomfortable, 19:10 Head/Face: Normocephalic, atraumatic. cp 19:10 Eyes: Periorbital structures: appear normal, Conjunctiva: normal, no exudate, no injection, Sclera: no appreciated abnormality, Lids and lashes: appear normal, bilaterally, 19:10 ENT: External ear(s): are unremarkable, Ear canal(s): are normal, clear, TM's: dullness, bilaterally, Nose: is normal, Mouth: Lips: moist, Oral mucosa: pink and intact, moist, Posterior pharynx: Airway: no evidence of obstruction, patent, Tonsils: bilaterally enlarged, with erythema, with exudate, erythema, that is moderate, 19:10 Neck: ROM/movement: Meningeal signs: are not present, 19:10 Chest/axilla: Inspection: normal, 19:10 Cardiovascular: Rate: tachycardic, Rhythm: regular, 19:10 Respiratory: the patient does not display signs of respiratory distress, Respirations: normal, no use of accessory muscles, no retractions, labored breathing, is not present, Breath sounds: are clear throughout, no decreased breath sounds, no stridor, no wheezing, 19:10 Abdomen/GI: Exam negative for discomfort, distension, guarding, Inspection: abdomen appears normal, 19:10 Skin: no rash present. Vital Signs: 18:12 BP 107 / 71; Pulse 108; Resp 18; Temp 98.3; Pulse Ox 99% on R/A; Weight 59.42 kg; ll1 Height 5 ft. 2 in. ; Pain 10/10; 18:12 Body Mass Index 23.96 (59.42 kg, 157.48 cm) ll1 18:12 Pain Scale: Adult ll1 MDM: 18:25 Patient medically screened. cp 19:17 Data reviewed: vital signs, nurses notes, and as a result, I will discharge patient. cp 19:17 Differential diagnosis: apthous ulcer, group A strep tonsillitis, peritonsillar abscess cp pharyngitis, retropharyngeal abcess. I considered the following discharge prescriptions or medication management in the emergency department Medications were administered in the Emergency Department. See MAR. Counseling: I had a detailed discussion with the patient and/or guardian regarding the historical points, exam findings, and any diagnostic results supporting the discharge/admit diagnosis, to return to the emergency department if symptoms worsen or persist or if there are any questions or concerns that arise at home. Response to treatment: the patient's symptoms have mildly improved after treatment, and as a result, I will discharge patient. Administered Medications: 19:37 Drug: GI Cocktail with - (Maalox PO 30 ml, Lidocaine Mucous Membrane 2 % 20 cm10 ml, Phenobarbital-Belladonna PO 10 ml) PO once Route: PO; 19:38 Drug: Amoxicillin-Clavulanate PO 875 mg PO once Route: PO; cm10 Disposition Summary: 05/02/24 19:18 Discharge Ordered Notes: Location: Home cp Problem: new cp Symptoms: have improved cp Condition: Stable cp Diagnosis - Acute tonsillitis, unspecified cp Followup: cp - With: Private Physician - When: 2 - 3 days - Reason: Worsening of condition Discharge Instructions: - Discharge Summary Sheet cp - Tonsillitis cp Forms: - Medication Reconciliation Form cp - Antibiotic Education cp - Prescription Opioid Use cp - Patient Portal Instructions cp - Leadership Thank You Letter cp - Work release form sb4 Prescriptions: - Lidocaine Viscous - take 5 milliliter ORAL route every 4-6 hours; 240 milliliter; Refills: 0, cp Product Selection Permitted - Augmentin 875-125 mg Oral Tablet - take 1 tablet ORAL route every 12 hours for 10 days; 20 tablet; Refills: 0, cp Product Selection Permitted - Ibuprofen 600 mg Oral tablet - take 1 tablet ORAL route every 8 hours As needed take with food; 30 tablet; cp Refills: 0, Product Selection Permitted Signatures: Joon Murdock PA PA cp Lewis, Lynsay, RN RN ll1 Bobbi Styles RN RN cm10
--- NOTE | 2024-05-02 19:19 | ER ---
Nurse's Notes [facility] Name: Devi Calvert Age: 23 yrs Sex: Female : 2000 Arrival Date: 05/02/2024 Time: 17:56 Bed IW3 Private MD: Diagnosis: Acute tonsillitis, unspecified Presentation: 05/02 18:12 Chief complaint: Patient states: Sore throat, trouble swallowing, fever, SOB for 2 ll1 days. Coronavirus screen: Client denies travel out of the [place] in the last 14 days. diarrhea, fatigue, fever, headache, sore throat, Client presents with at least one sign or symptom that may indicate coronavirus-19. Standard/surgical mask placed on the client. Ebola Screen: Patient denies travel to an Ebola-affected area in the 21 days before illness onset. Initial Sepsis Screen: Does the patient meet any 2 criteria? No. Patient's initial sepsis screen is negative. Does the patient have a suspected source of infection? No. Patient's initial sepsis screen is negative. Risk Assessment: Do you want to hurt yourself or someone else? Patient reports no desire to harm self or others. Onset of symptoms was May 01, 2024. 18:12 Method Of Arrival: Ambulatory ll1 18:12 Acuity: CHANTAL 3 ll1 Triage Assessment: 18:12 General: Appears uncomfortable, Behavior is calm, cooperative, appropriate for age, ll1 Reports fever for feeling ill for fatigue for. Pain: Complains of pain in throat Quality of pain is described as aching. EENT: Reports pain when swallowing. Respiratory: Reports shortness of breath. Historical: - Allergies: 18:11 No Known Allergies; ll1 - PMHx: 18:11 Asthma; Depression; IPH; Migraines; previous suicide attempt; Anxiety; Schizophrenia; ll1 vocal chords problem; - PSHx: 18:11 Cholecystectomy; ll1 - Immunization history:: Adult Immunizations up to date. - Infectious Disease History:: Denies. - Social history:: Smoking status: Patient reports the use of cigarette tobacco products, smokes one-half pack cigarettes per day. Vital Signs: 18:12 BP 107 / 71; Pulse 108; Resp 18; Temp 98.3; Pulse Ox 99% on R/A; Weight 59.42 kg; ll1 Height 5 ft. 2 in. ; Pain 10/10; 18:12 Body Mass Index 23.96 (59.42 kg, 157.48 cm) ll1 18:12 Pain Scale: Adult ll1 ED Course: 17:57 Patient arrived in ED. mg5 18:00 Arm band placed on. ll1 18:13 Triage completed. ll1 18:24 Joon Murdock PA is PHCP. cp 18:24 Raffaele Simpson MD is Attending Physician. cp Administered Medications: 19:37 Drug: GI Cocktail with - (Maalox PO 30 ml, Lidocaine Mucous Membrane 2 % 20 cm10 ml, Phenobarbital-Belladonna PO 10 ml) PO once Route: PO; 19:38 Drug: Amoxicillin-Clavulanate PO 875 mg PO once Route: PO; cm10 Outcome: 19:18 Discharge ordered by . cp 19:38 Patient left the ED. cm10 Signatures: Joon Murdock PA PA cp Dank Mejía RN RN ll1 Bobbi Styles RN RN cm10 Tarsha Land mg5 Corrections: (The following items were deleted from the chart) 19:29 18:12 General: Appears uncomfortable, Behavior is calm, cooperative, appropriate for ll1 age, ll1
[2024-05-02] MEDS ORDERED: AMOX/K CLAV 875 MG TAB ONE (19:32)
[2024-05-02] MEDS ORDERED: MAGNESIUM HYDROXIDE 8% 30 ML ONE (19:32)
[2024-05-02] MEDS ORDERED: LIDOCAINE VISCOUS 2% 10ML ORAL SOLN ONE (19:32)
[2024-05-03 03:43] VITALS: BP 127/99; TEMP 98.6; O2SAT 96
== END 2024-05-02 19:38 | disposition home or self-care (01) ==
LOC: ER 17:56
DX: J03.90 Acute tonsillitis, unspecified (principal)

== ENCOUNTER → 2024-08-24 | Day surgery (SDC) | payer BC ==
--- NOTE | 2024-08-24 20:45 | RAD REPORT ---
THYROID NODULE FNA PREPROCEDURE DIAGNOSIS: Left thyroid nodule. E04.1 SPECIMEN: 5 - 25-gauge FNA specimens of the thyroid nodule. 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 Real-time ultrasound was used to identify the thyroid nodule of interest. The neck was then prepped and draped in the usual sterile fashion. Lidocaine was used to anesthetize the skin and soft tissues down towards the thyroid nodule. 5 separa te 25-gauge needles were then placed using ultrasound guidance into the nodule and specimen was obtained within the needle using a to and fro motion. These needles were placed in solution provided by pathology. The patient tolerated the procedure well without immediate post procedure complication. IMPRESSION: Ultrasound-guided fine-needle aspiration left thyroid nodule
== END ==
LOC: FNA 10:04
PROVIDERS: ATTEND Internal Medicine
PROC: 0GBG3ZX Excision of Left Thyroid Gland Lobe, Percutaneous Approach, Diagnostic (ICD-10-PCS; principal; 2024-08-24)
DX: C73 Malignant neoplasm of thyroid gland (principal)
CPT/HCPCS: 88162

== ENCOUNTER 2024-09-16 06:59 | Day surgery (SDC) | payer BC ==
[2024-09-13 15:14] LABS: Anion Gap 9.8 mEq/L (5.0-15.0); Potassium 3.8 mEq/L (3.5-5.1)
[2024-09-16] MEDS: Ringers Lactate 1,000 ML IV ONE (07:35)
[2024-09-16] MEDS ORDERED: ONDANSETRON 4 MG/2 ML VIAL ONE (07:44)
[2024-09-16] MEDS ORDERED: MIDAZOLAM HCL 2 MG/2 ML INJ ONE (07:44)
[2024-09-16] MEDS ORDERED: propofoL 200 MG/20 ML VIAL IV ONE (07:44)
[2024-09-16] MEDS ORDERED: FENTANYL CITR 100 MCG/2 ML ONE ×2 (07:44→11:07)
[2024-09-16] MEDS ORDERED: LIDOCAINE 2% MPF 5 ML VIAL ONE (07:44)
[2024-09-16] MEDS ORDERED: HYDROMORPHONE HCL 1 MG/ML INJ ONE (07:47)
[2024-09-16] MEDS ORDERED: SUCCINYLCHOLINE 20 MG/ML (10 ML) IV ONE (07:47)
[2024-09-16 08:11] LABS: Urine Specific Gravity/Preg 1.025 (1.005-1.030)
[2024-09-16] MEDS ORDERED: ROCURONIUM 50 MG/5 ML VIAL IV ONE (10:44)
[2024-09-16] MEDS ORDERED: dexAMETHasone 10 MG/ML VIAL ONE (10:49)
[2024-09-16] MEDS: CEFAZOLIN SODIUM 2 GM/VIAL ONE (10:50)
[2024-09-16] MEDS: LIDOCAINE HCL/EPINEPHRINE 20 ML MDV ONE (10:55)
[2024-09-16] MEDS: HYDROMORPHONE HCL 1 MG/ML INJ ONE (13:25)
[2024-09-16] MEDS: ENOXAPARIN 30 MG/0.3 ML SQ ONE (14:38)
[2024-09-16] MEDS: LEVOTHYROXINE SOD 0.1 MG TAB PO ONE (14:38)
[2024-09-16] MEDS: ACETAMINOPHEN 325 MG TABLET ONE (14:47)
[2024-09-16 15:37] VITALS: BP 133/79; TEMP 97.2; O2SAT 99
--- NOTE | 2024-09-19 12:35 | OP ---
Date of Procedure: 09/16/2024 Surgeon: WILMA CORADO Preoperative Diagnosis: Malignant neoplasm of left thyroid lobe. Postoperative Diagnosis: Malignant neoplasm of left thyroid lobe. Procedure: Total thyroidectomy with recurrent laryngeal nerve monitoring with the Vestorly nerve monitoring integrity system. Anesthesia: General endotracheal anesthesia with NIM endotracheal tube was administered. The electrodes were placed between the true vocal folds for monitoring. I also infiltrated approximately 2 cm above the sternal notch at the horizontal incision site with approximately 10 mL of 1% lidocaine with 1:100,000 epinephrine. Estimated Blood Loss: Less than 5 mL. Specimens: Thyroid gland was handed off the field with a black 2-0 silk suture placed on the left thyroid lobe. Findings: Indurated firm tumor involving the left lobe of the thyroid gland. Several palpable smaller nodules palpated in right thyroid gland. Complications: None. Disposition: Stable. The patient tolerated procedure well. 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 These are indications to bring the patient to the operating suite for the above- mentioned procedure. She understood. All questions were answered. Risks versus benefits and complications were explained in detail and a consent form was signed, which was placed in the chart. Description Of Procedure: The patient was transferred from the preoperative holding area to the operative suite by Department of Anesthesia, placed on the operating table supine, sedated and intubated with a NIM tube as planned. The nerve monitoring grounding electrodes were placed into the left shoulder and secured in place with Tegaderm. I infiltrated the horizontal neck incision site approximately 2 cm above the sternal notch with 10 mL of 1% lidocaine with 1:100,000 epinephrine and the patient was sterilely prepped and draped. The neck was extended using a shoulder roll. The patient was sterilely prepped and draped. An incision was made approximately 2 cm above the sternal notch into a skin crease and the incision was made through the epidermis down to the subcutaneous tissue. I then dissected down to the platysma and subplatysmal dissection was continued utilizing the thyroid ligature. Once down to the strap muscles, I dissected in midline down to the sternal thyroid muscle. The sternothyroid muscle was adhered posteriorly to the anterior left inferior lobe of the thyroid. Thus, I had to remove some of the sternal thyroid muscle along with the left thyroid gland. I dissected around the left thyroid gland utilizing the ligature. I took care to stay very close to the thyroid gland, thereby avoiding the recurrent laryngeal nerve. We did visualize a left superior pole parathyroid gland very close to the recurrent laryngeal nerve. At that point, we stayed medial to the gland and the nerve utilizing the ligature. Dissection along the lateral and inferior edges were performed with the LigaSure. I did not detect a left inferior parathyroid gland, but again we stayed very close to the thyroid gland. Also, this area of the thyroid gland was very involved with tumor and was very indurated/hard. Attention was placed to the right thyroid gland, which was easily dissected off superiorly, laterally, and inferiorly using the ligature. I was able to dissect and reflect the right thyroid gland medially towards the isthmus. Several nodules were palpated through the thyroid. I also located a right inferior parathyroid gland and the recurrent laryngeal nerve. We stayed medial to these structures closely dissecting on top of the thyroid gland. Once to the level of the isthmus, I divided the isthmus with the ligature. I then handed the specimen off the field after suturing the left inferior lobe with a 2-0 silk stitch suture. I irrigated the wound bed and a wet Valsalva was performed. There was no dany bleeding or oozing of blood. I examined the central neck for any enlarged lymph nodes and there were none visualized after careful examination. I placed Avitene into the wound bed. I reapproximated the strap muscle with a single 3-0 Vicryl suture. I then reapproximated the platysma muscle with 3-0 Vicryl in a simple interrupted fashion. Several sutures were placed. I then reapproximated the subcutaneous and subdermal tissue with 4-0 Monocryl in a simple interrupted fashion followed by epidermal closure utilizing subcuticular continuous reapproximation with 4-0 Monocryl suture. The suture tails were adhered to the neck with Steri-Strips, and then Steri-Strips were placed over the incision opening. The patient tolerated the procedure well. She was subsequently transferred to postoperative care unit and discharged home on antibiotic and analgesic medication. She will follow up in 4 days in my outpatient clinic. ROBI/MASON Voice ID: [id number] Report ID: [id number]
== END 2024-09-16 16:05 | disposition home or self-care (01) ==
LOC: OR 06:59
PROVIDERS: ATTEND Otolaryngology Facial Plastic Surgery
PROC: 07T20ZZ Resection of Left Neck Lymphatic, Open Approach (ICD-10-PCS; 2024-09-16)
PROC: 07T10ZZ Resection of Right Neck Lymphatic, Open Approach (ICD-10-PCS; 2024-09-16)
PROC: 0GTK0ZZ Resection of Thyroid Gland, Open Approach (ICD-10-PCS; principal; 2024-09-16 10:38)
DX: C73 Malignant neoplasm of thyroid gland (principal); J45.909 Unspecified asthma, uncomplicated; F31.9 Bipolar disorder, unspecified
CPT/HCPCS: 60252; 80048; 36415 ×2; 82310; 81025; 88307; J2704; J2003; J1650; J2250; J3010 ×2; J1100; J1171 ×2; J2405; J7120; 88304

== ENCOUNTER 2024-09-18 09:57 | Emergency (ER) | payer BC ==
--- OUTSIDE RECORDS SUMMARY | 2024-09-18 10:06 | XMS REPORT | Continuity of Care Document ---
Author Name Unknown Address [address] [facility] [address] [place] [address] [facility] thconnect Address [address] [facility] [place] [address] Care Team Providers Care Handy Worker Name Role Phone Deo Waters MD, Lio Cmamy Primary Care Physici an ZARINA KENNEDY Attending Clinician Unavailable ZARINA KENNEDY Attending Clinician Unavailable GERMAN EISENBERG Attending Clinician Unavailable Doctor Unassigned, Stanton Attending Clinician U aureliaable Shaikh LEIGH, Alcira Attending Clinician [phone] Nurse, [facility] Attending Clinician Un available Zarina Kennedy MD Attending Clinician [phone] HINA SANON Attending Clinician HINA Ambrose Attending Clinician TARAS Jacques Attending Clinician Unavailluis zaman Nurse, [facility] Attending Clinician Un available MICHELE BAUTISTA Attending Clinician Un available VIVIANA DOWNEY Attending Clinician Unavailable Dominga HECK, Viviana Shine Attending Clinician [phone] FIDE FREITAS Attending Clinician Unavailable Fide Freitas MD Attending Clinician [phone], [facility] Attending Clinician Unavailable Doctor Unassigned, Stanton Attending Clinician U MARCO A Cantu Attending Clinician UnavailMallorie Mata MD Attending Clinician [phone] Omer Burris MD, Lashell Attending Clinician + [phone] Marco A Mcmillan MD Attending Clinician +[phone] MALLORIE ALEJANDRA Attending Clinician Unavailable AILIN TANG Attending Clinician UnavailAilin Israel Attending Clinician [phone] DAVY SOTELO Attending Clinician Unavailable DAVY SOTELO Attending Clinician Unavailable Jackie Griffin MD, Iris Attending Clinician [phone] BRIT LAUREN Attending Clinician UnavailIDA Ash Attending Clinician Unavailable Norma Partida MD Attending Clinician [phone] NORMA PARTIDA Attending Clinician Unavailable WENDY RIVERA Attending Clinician Unavailable Wendy Rivera PA-C Attending Clinician [phone] GUTIERREZ BRAVO Attending Clinician Unavailable Gutierrez Bravo MD Attending Clinician [phone] [facility] Attending Clinician Unavailable Cyntiha OLIVEIRAIsha Sanchez Attending Clin ician [place], Nephrology Attending Clinician Unavaila STAN Hampton Attending Clinician Unavail able STAN TY Attending Clinician Unavail able Pedro MILLER Attending Clinician Unavailable Paul PACPedro Attending Clinician [phone] Jordan Gaspar CRNA Attending Clinician [phone] Jesus Martinez MD, Leonard Attending Clinician + [phone] Only, Ad[facility] Test Attending Clinician Unavailable Kary Oseguera MD Attending Clinician [phone] Lashay Merritt RN Attending Clinician Unavailable Ultrasound, [facility] Attending Clinician Unavaila beata Aguillon MD, Sherry Attending Clinician + Kian Gutierrez MD Attending Clinician [phone] Mihai Fernandez MD Attending Clinician [phone] Unknown, Attending Attending Clinician Unavailab le UNKNOWN, ATTENDING Attending Clinician Unavailab Kary Harkins Attending Clinician [phone] DR GERMAN CARMEN Attending Clinician UnavailMarco A Salcedo MD Attending Clinician + [phone] Eda Santos RN Attending Clinician Unavailable Martha Cohn Attending Clinician Unavail able Jonny Sarah MD Attending Clinician [phone] 1, [facility] Attending Clinician Unavailable ZARINA KENNEDY Admitting Clinician Unavailable MARCO A NIETO Admitting Clinician Unavaila MICHELE Browning Admitting Clinician Un available LASHELL CH Admitting Clinician Graham Burris MD, Lashell Admitting Clinician + [phone] MALLORIE ALEJANDRA Admitting Clinician Unavailable Mallorie Alejandra MD Admitting Clinician [phone] IRIS KEYES Admitting Clinician Unavailab WENDY Short Admitting Clinician Unavailable Zarian Kennedy MD Admitting Clinician [phone] Norma Partida MD Admitting Clinician [phone] NORMA PARTIDA Admitting Clinician Unavailable Kary Oseguera MD Admitting Clinician [phone] GERMAN CARMEN Admitting Clinician UnavailMarco A Salcedo MD Admitting Clinician + [phone] Payers Payer Name Policy Type Policy Number Effective Date Expirati on Date Source [facility] [id number] 2020 00:00:00 [facility] [id number] 2019 00:00:00 Problems Condition Name Condition Details Condition Category Status Onset Date Resolution Date Last Treatment Date Treating Clinician Comments Source Decreased libido Decreased libido Disease Active 11-13 00:00: 00 [facility] Hydronephr osis Hydronephr osis Disease Active 2022-11 00:00: 00 [facility] Calculus of kidney Calculus of kidney Disease Active 2022-11 00:00: 00 [facility] Hydronephr osis with urinary obstructio n due to renal calculus Hydronephr osis with urinary obstructio n due to renal calculus Disease Active 2022-11 00:00: 00 [facility] Flank pain Flank pain Disease Active 2022-11 00:00: 00 [facility] Allergic rhinitis Allergic rhinitis Disease Active 03-15 00:00: 00 [facility] Nausea Nausea Disease Active 03-15 00:00: 00 [facility] Generalize d anxiety disorder Generalize d anxiety disorder Disease Active 2018-11 00:00: 00 [facility] Major depressive disorder Major depressive disorder Disease Active 2018-11 00:00: 00 [facility] History of self-harm History of self-harm Disease Active 2018-11 00:00: 00 [facility] Bipolar 1 disorder Bipolar 1 disorder Disease Active 8-30 00:00: 00 [facility] Asthma Asthma Disease Active 2-01 00:00: 00 [facility] Depressive disorder Depressive disorder Disease Active 1-31 00:00: 00 [facility] 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 Formattin g of this note might be different from the original. ONE episode. Normal lung biopsy. Treated with solumedro l monthly (3 days) x 5 months. Initially on plaquenil , stopped after 6-8 months. She's being observed off meds. [facility] Mild pre-eclamp dominik in third trimester Mild pre-eclamp dominik in third trimester Disease Resolve d 1 1-01 00:00: 00 2021-09-27 00:00:00 2021-09-27 10:29:55 [facility] 39 weeks gestation of 39 weeks gestation of Disease Resolve d 2020-1 0-29 00:00: 00 2021-09-27 00:00:00 2021-09-27 10:29:55 [facility] Encounter for planned induction of labor Encounter for planned induction of labor Disease Resolve d 2020-1 0-29 00:00: 00 2021-09-27 00:00:00 2021-09-27 10:29:55 [facility] Low-lying placenta Low-lying placenta Disease Resolve d 2020-0 7-19 00:00: 00 2021-09-27 00:00:00 2021-09-27 20:21:44 [facility] High-risk in third trimester High-risk in third trimester Disease Resolve d 2020-0 4-07 00:00: 00 2021-09-27 00:00:00 2021-09-27 10:29:55 [facility] Rh negative state in antepartum period Rh negative state in antepartum period Disease Resolve d 2020-0 4-07 00:00: 00 2021-09-27 00:00:00 2021-09-27 20:21:45 [facility] Liveborn infant, of umaña , born in hospital by vaginal delivery Liveborn infant, of umaña , born in hospital by vaginal delivery Disease Resolve d 2019-0 3-23 00:00: 00 2021-09-27 00:00:00 2021-09-27 20:21:47 [facility] Family history of congenital heart defect Family history of congenital heart defect Disease Resolve d 2018-0 8-30 00:00: 00 2021-09-27 00:00:00 2021-09-27 20:21:57 [facility] Vaginal discharge Vaginal discharge Disease Resolve d 2018-1 2-31 00:00: 00 2021-01-15 00:00:00 2021-01-15 11:03:56 [facility] Need for prophylact ic vaccinatio n and inoculatio n against varicella Need for prophylact ic vaccinatio n and inoculatio n against varicella Disease Resolve d 2018-1 0-14 00:00: 00 2021-01-15 00:00:00 2021-01-15 11:05:00 [facility] Need for vaccinatio n against rubella Need for vaccinatio n against rubella Disease Resolve d 2018-1 0-14 00:00: 00 2021-01-15 00:00:00 2021-01-15 11:05:01 [facility] Normal labor Normal labor Disease Resolve d 2019-0 3-23 00:00: 00 2020-02-28 00:00:00 2020-02-28 09:13:37 [facility] Group B streptococ jose infection during Group B streptococ jose infection during Disease Resolve d 2019-0 3-23 00:00: 00 2020-02-28 00:00:00 2020-02-28 09:13:32 [facility] High-risk in third trimester High-risk in third trimester Disease Resolve d 2018-11 00:00: 00 2020-02-28 00:00:00 2020-02-28 09:13:35 [facility] 26 weeks gestation of 26 weeks gestation of Disease Resolve d 2018-11 00:00: 00 2019-12-08 00:00:00 2019-12-08 14:01:23 [facility] Allergies, Adverse Reactions, Alerts Allergy Name Allergy Type Status Severity Reaction(s) Onset Date Inactive Date Treating Clinician Comments Source NO KNOWN ALLERGIE S Drug Class Active [facility] No Known Drug Allergie s DA Active [facility] Social History Social Habit Start Date Stop Date Quantity Comments Source Gender identity [facility] Sexual orientation [facility] History of tobacco use Cigarette Smoker [employer] Cigarettes smoked current (pack per day) - Reported 2024-08-04 00:00:00 2024-08-04 00:00:00 [employer] Cigarette pack-years 2024-08-04 00:00:00 2024-08-04 00:00:00 [facility] Tobacco use and exposure 2024-08-04 00:00:00 2024-08-04 00:00:00 Smokeless tobacco non-user [facility] Tobacco Comment 2024-08-02 00:00:00 2024-08-02 00:00:00 1/2 pack daily [facility] Alcoholic beverage intake 2024-04-30 00:00:00 2024-04-30 00:00:00 Current drinker of alcohol (finding) [facility] Alcohol intake 2024-02-06 00:00:00 2024-02-06 00:00:00 Current drinker of alcohol (finding) [facility] Alcohol Comment 2023-11-13 00:00:00 2023-11-13 00:00:00 occassionally [facility] History of Social function 2023-10-10 00:00:00 2023-10-10 00:00:00 [facility] Exposure to SARS-CoV-2 (event) 2023-02-08 00:00:00 2023-02-18 14:56:00 Not sure [facility] Sex assigned at 2000 00:00:00 2000 00:00:00 [facility] Smoking Status Start Date Stop Date Source Smokes tobacco daily 2024-08-04 00:00:00 [facility] Ex-smoker 2022-06-03 00:00:00 2022-06-03 00:00:00 [facility] Medications Ordered Medication Name Filled Medication Name Start Date Stop Date Current Medication? Ordering Clinician Indication Dosage Frequency Signature (SIG) Comments Components Source QUEtiapine (SEROquel) 50 MG tablet 08-02 08:26: 42 Yes 50mg Take 50 mg by mouth every night. [facility] Rimegepant Sulfate (Nurtec) 75 MG tablet dispersible 08-02 00:00: 00 10-02 05:59 :00 Yes [id number] 75mg Q2D Take 75 mg by mouth every other day. [facility] albuterol 108 (90 Base) MCG/ACT inhaler 07-29 00:00: 00 Yes 2{puff} 2 puffs every 4 (four) hours if needed. [facility] medroxyPROG ESTERone (DEPO-PROVE RA) syringe 150 mg 07-28 15:15: 00 07-28 14:18 :00 No [id number] 150mg 150 mg, Intramuscu lar, ONCE, 1 dose, On Fri07/28/24 at 1015, Routine [facility] medroxyPROG ESTERone (DEPO-PROVE RA) syringe 150 mg 04-30 15:30: 00 04-30 14:38 :00 No [id number] 150mg 150 mg, Intramuscu lar, ONCE, 1 dose, On Fri04/30/24 at 1030, Routine [facility] medroxyPROG ESTERone (DEPO-PROVE RA) 150 mg/mL syringe 04-30 09:30: 56 Yes 150mg 1 mL by Intramuscu lar route every 3 (three) months. [facility] medroxyPROG ESTERone (DEPO-PROVE RA) 150 mg/mL syringe 04-14 16:04: 17 Yes 150mg 1 mL by Intramuscu lar route every 3 (three) months. [facility] ubrogepant (UBRELVY) 100 mg Tab 04-14 15:41: 00 04-14 00:00 :00 No Ubrelvy 100 mg tablet Take 1 tablet by oral route as needed. [facility] ibuprofen 600 mg tablet 04-14 15:40: 54 04-14 00:00 :00 No TAKE 1 TABLET BY MOUTH TWICE A DAY NEEDED [facility] diclofenac 75 mg EC tablet 04-14 15:40: 42 04-14 00:00 :00 No [facility] cyclobenzap rine 5 mg tablet 04-14 15:40: 32 04-14 00:00 :00 No 5mg Take 1 tablet by mouth 2 (two) times daily as needed. [facility] cetirizine 10 mg tablet 04-14 15:40: 26 04-14 00:00 :00 No 10mg Take 1 tablet by mouth in the morning. [facility] ALBUTEROL SULFATE HFA INHALE 04-14 15:40: 20 04-14 00:00 :00 No Inhale. [facility] acetaminoph en-codeine 300-30 mg tablet 04-14 15:40: 14 04-14 00:00 :00 No TAKE 1 TABLET BY MOUTH EVERY 8 HOURS NEEDED FOR ACUTE PAIN [facility] dexamethaso ne sod phos PF injection 10 mg 04-11 18:45: 00 04-11 17:46 :00 No 10mg 10 mg, Intramuscu lar, ONCE, 1 dose, On 04/11/24 at 1345, Routine [facility] medroxyPROG ESTERone (DEPO-PROVE RA) syringe 150 mg 02-05 15:00: 00 02-05 14:00 :00 No [id number] 150mg [facility] medroxyPROG ESTERone (DEPO-PROVE RA) syringe 150 mg 11-13 20:15: 00 11-13 19:30 :00 No [id number] 150mg [facility] ALBUTEROL SULFATE HFA INHALE 11-13 12:59: 22 Yes Inhale. [facility] FLUoxetine 40 mg capsule 11-13 12:58: 49 Yes 40mg Take 1 capsule by mouth every morning. [facility] ubrogepant (UBRELVY) 100 mg Tab 11-13 12:58: 49 Yes Ubrelvy 100 mg tablet Take 1 tablet by oral route as needed. [facility] acetaminoph en-codeine 300-30 mg tablet 11-13 12:58: 49 Yes TAKE 1 TABLET BY MOUTH EVERY 8 HOURS NEEDED FOR ACUTE PAIN [facility] ibuprofen 600 mg tablet 11-13 12:58: 49 Yes TAKE 1 TABLET BY MOUTH TWICE A DAY NEEDED [facility] diclofenac 75 mg EC tablet 11-13 12:58: 49 Yes [facility] cyclobenzap rine 5 mg tablet 11-13 12:58: 49 Yes 5mg Take 1 tablet by mouth 2 (two) times daily as needed. [facility] cetirizine 10 mg tablet 11-13 12:58: 49 Yes 10mg Take 1 tablet by mouth in the morning. [facility] acetaminoph en (TYLENOL) tablet 650 mg 2022-11 19:30: 00 Yes 650mg 650 mg, Oral, Q6H ABX, First dose (after last modificati on) on Fri10/14/23 at 1330, Until Discontinu ed, Routine [facility] methocarbam oL (ROBAXIN) tablet 500 mg 2022-11 18:30: 00 Yes 500mg 500 mg, Oral, QID, First dose on Fri10/14/23 at 1230, Until Discontinu ed, Routine [facility] ketorolac (TORADOL) injection 15 mg 2022-11 18:22: 51 10-18 18:21 :51 No 15mg 15 mg, Slow IV Push, Q6HPRN, Starting on Fri10/14/23 at 1222, Until Fri10/18/23 at 1221, Routine, Pain (scale 4-6) [facility] HYDROcodone -acetaminop hen (NORCO 5) 5-325 mg tablet 1 tablet 2022-11 18:20: 10 10-16 02:45 :23 No 1{tbl} 1 tablet, Oral, Q6HPRN, Starting on Fri10/14/23 at 1220, Until Fri10/15/23 at 2045, Routine, Pain (scale 7-10) [facility] FLUoxetine (PROZAC) capsule 40 mg 2022-11 15:00: 00 Yes 40mg 40 mg, Oral, DAILY, First dose on Fri10/14/23 at 0900, Until Discontinu ed, Routine [facility] tamsulosin (FLOMAX) capsule 0.4 mg 2022-11 15:00: 00 Yes .4mg 0.4 mg, Oral, DAILY, First dose on Fri10/14/23 at 0900, Until Discontinu ed, Routine [facility] sennosides- docusate sodium (SENOKOT-S) 8.6-50 mg per tablet 1 tablet 2022-11 15:00: 00 Yes 1{tbl} 1 tablet, Oral, DAILY, First dose on Fri10/14/23 at 0900, Until Discontinu ed, Routine [facility] FLUoxetine 40 mg capsule 2022-11 14:44: 43 Yes 40mg Take 1 capsule by mouth every morning. [facility] ubrogepant (UBRELVY) 100 mg Tab 2022-11 14:44: 43 Yes Ubrelvy 100 mg tablet Take 1 tablet by oral route as needed. [facility] QUEtiapine (SEROQUEL) tablet 50 mg 2022-11 07:30: 00 Yes 50mg 50 mg, Oral, QHS, First dose on Fri10/14/23 at 0130, Until Discontinu ed, Routine [facility] albuterol (VENTOLIN) inhaler 2 Puff 2022-11 07:20: 25 Yes 2{puff} 2 Puff, Inhalation , Q4HPRN, Starting on Fri10/14/23 at 0120, Until Discontinu ed, Routine, Wheezing, Shortness of Breath [facility] cefTRIAXone (ROCEPHIN) 1,000 mg in NaCl 0.9% [...] Urine
D uration of therapy: 5 days [facility] NaCl 0.9% (NS) IV infusion 1,000 mL 2022-11 03:00: 00 Yes 1000mL at 125 mL/hr, IV Infusion, CONTINUOUS , Starting on Fri10/13/23 at 2100, Until Discontinu ed, Routine [facility] HYDROcodone -acetaminop hen (NORCO 5) 5-325 mg tablet 1 tablet 2022-11 02:46: 23 10-14 18:20 :18 No 1{tbl} 1 tablet, Oral, Q6HPRN, Starting on Fri10/13/23 at 2046, Until Fri10/14/23 at 1220, Routine, Pain (scale 4-6) [facility] ondansetron (ZOFRAN (PF)) injection 4 mg 2022-11 02:44: 32 Yes 4mg 4 mg, Slow IV Push, Q6HPRN, Starting on Fri10/13/23 at 2044, Until Discontinu ed, Routine, Nausea and Vomiting (N/V) [facility] ketorolac (TORADOL) injection 15 mg 2022-11 02:26: 58 10-14 18:20 :08 No 15mg 15 mg, Slow IV Push, Q6HPRN, Starting on Fri10/13/23 at 2026, Until Fri10/14/23 at 1220, Routine, Pain (scale 7-10) [facility] methocarbam oL 500 mg tablet 2022-11 00:00: 00 04-14 00:00 :00 No [id number] 500mg Take 1 tablet by mouth 3 (three) times daily as needed for Pain (scale 4-6) or Pain (scale 7-10). [facility] sulfamethox azole-trime thoprim (BACTRIM DS) 800-160 mg per tablet 2022-11 00:00: 00 04-14 00:00 :00 No [id number] 1{tbl} Take 1 tablet by mouth in the morning and 1 tablet in the evening. [facility] tamsulosin (FLOMAX) 0.4 mg 24 hr capsule 2022-11 00:00: 00 04-14 00:00 :00 No [id number] .4mg Take 1 capsule by mouth in the morning. [facility] ketorolac 10 mg tablet 2022-11 00:00: 00 04-14 00:00 :00 No [id number] 10mg Take 1 tablet by mouth every 6 (six) hours as needed for Pain (scale 7-10). [facility] gabapentin 100 mg capsule 2022-11 00:00: 00 04-14 00:00 :00 No [id number] 200mg Take 2 capsules by mouth in the morning and 2 capsules in the evening. [facility] acetaminoph en-codeine 300-30 mg tablet 2022-11 00:00: 00 10-18 05:59 :00 No [id number] 1{tbl} Take 1 tablet by mouth every 6 (six) hours as needed for Pain (scale 7-10) for up to 3 days. Indication s: acute pain [facility] meperidine (DEMEROL) injection 12.5 mg 2022-11 00:24: 18 Yes 12.5mg 12.5 mg, Slow IV Push, PRN, 1 dose, Starting on Fri10/10/23 at 1824, Until Discontinu ed, Routine, Shivering, PACU
En ter indication for use: Reduce postoperat [place] shivering< br>member of the legislative council approving Restricted medication : ROSARIO HOFFMANN [facility] HYDROmorphO ne (DILAUDID) injection 0.2 mg 2022-11 00:24: 18 Yes .2mg 0.2 mg, Slow IV Push, Q5MIN PRN, 10 doses, Starting on Fri10/10/23 at 1824, Until Discontinu ed, Routine, Pain (scale 7-10), PACU
Us e approved by (Faculty): PACU USE -ANESTHESI A SERVICE-HY DROMORPHON E INJECTIONS [facility] FENTanyl PF (SUBLIMAZE (PF)) injection 25 mcg 2022-11 00:24: 18 Yes 25ug 25 mcg, Slow IV Push, Q5MIN PRN, 4 doses, Starting on Fri10/10/23 at 1824, Until Discontinu ed, Routine, Pain (scale 4-6), PACU [facility] lactated ringers IV infusion 1,000 mL 2022-11 20:00: 00 10-10 20:24 :00 No 1000mL at 42 mL/hr, 1,000 mL, IV Infusion, ONCE, 1 dose, On Fri10/10/23 at 1400, Routine, DSU Pre-op [facility] FLUoxetine 40 mg capsule 2022-11 19:08: 55 Yes 40mg Take 1 capsule by mouth every morning. [facility] ubrogepant (UBRELVY) 100 mg Tab 2022-11 19:08: 55 Yes Ubrelvy 100 mg tablet Take 1 tablet by oral route as needed. [facility] tamsulosin (FLOMAX) 0.4 mg 24 hr capsule 2022-11 00:00: 00 10-14 00:00 :00 No [id number] .4mg Take 1 capsule by mouth in the morning for 5 days. [facility] ketorolac 10 mg tablet 2022-11 00:00: 00 10-14 00:00 :00 No [id number] 10mg Take 1 tablet by mouth every 6 (six) hours as needed for Pain (scale 7-10) (Alternate with ibuprofen if taking concurrent ly). [facility] FLUoxetine 20 mg capsule 2022-11 08:06: 30 10-09 00:00 :00 No fluoxetine 20 mg capsule TAKE 1 CAPSULE BY MOUTH EVERY DAY [facility] escitalopra m oxalate 20 mg tablet 2022-11 10:50: 05 10-08 00:00 :00 No escitalopr am 20 mg tablet [facility] dicyclomine 20 mg tablet 2022-11 10:49: 59 10-08 00:00 :00 No dicyclomin e 20 mg tablet TAKE 1 TABLET BY MOUTH EVERY 6 HOURS NEEDED [facility] busPIRone 5 mg tablet 2022-11 10:49: 56 10-08 00:00 :00 No buspirone 5 mg tablet [facility] ARIPiprazol e 5 mg tablet 2022-11 10:49: 47 10-08 00:00 :00 No aripiprazo le 5 mg tablet [facility] albuterol 90 mcg/actuati on inhaler 2022-11 10:49: 40 10-08 00:00 :00 No 2{puff} Inhale 2 Puffs every 6 (six) hours as needed. [facility] albuterol 2.5 mg /3 mL (0.083 %) nebulizer solution 2022-11 10:49: 34 10-08 00:00 :00 No 2.5mg Inhale 3 mL every 4 (four) hours as needed. [facility] ondansetron 4 mg tablet 2022-11 08:44: 57 10-08 00:00 :00 No ondansetro n HCl 4 mg tablet TAKE 1 TABLET BY MOUTH EVERY 12 HOURS NEEDED [facility] chlorhexidi ne 0.12 % mouthwash 2022-11 08:43: 33 10-08 00:00 :00 No chlorhexid ine gluconate 0.12 % mouthwash USE TWICE DAILY [facility] diphenoxyla te-atropine 2.5-0.025 mg tablet 2022-11 08:43: 30 10-08 00:00 :00 No diphenoxyl ate-atropi ne 2.5 mg-0.025 mg tablet [facility] fluconazole 200 mg tablet 2022-11 08:43: 15 10-08 00:00 :00 No fluconazol e 200 mg tablet [facility] iron-FA-dha -epa-FAD-NA DH-be-mv (ENLYTE) 1.5 mg iron- 8.73 mg CpID 2022-11 08:42: 37 10-08 00:00 :00 No EnLyte 1.5 mg iron-8.73 mg capsule,im mediate - delay release [facility] lurasidone 20 mg tablet 2022-11 08:42: 34 10-08 00:00 :00 No Latuda 20 mg tablet [facility] ondansetron 4 mg disintegrat ing tablet 2022-11 08:41: 45 10-08 00:00 :00 No ondansetro n 4 mg disintegra ting tablet [facility] prazosin 1 mg capsule 2022-11 08:41: 33 10-08 00:00 :00 No prazosin 1 mg capsule [facility] predniSONE 20 mg tablet 2022-11 08:41: 18 10-08 00:00 :00 No prednisone 20 mg tablet [facility] Sodium Fluoride, Dental Gel, 1.1 % Crea 2022-11 08:41: 05 10-08 00:00 :00 No Denta 5000 Plus 1.1 % cream USE TWICE A DAY IN THE MORNING AND AT NIGHT. DO NOT EAT OR DRINK FOR AT LEAST 30 MINS [facility] SUMAtriptan 50 mg tablet 2022-11 08:41: 02 10-08 00:00 :00 No sumatripta n 50 mg tablet [facility] ondansetron 4 mg tablet 2022-11 00:00: 00 04-14 00:00 :00 No [id number] 4mg Take 1 tablet by mouth every 8 (eight) hours as needed for Nausea and Vomiting (N/V). [facility] tamsulosin 0.4 mg 24 hr capsule 2022-11 00:00: 00 10-14 00:00 :00 No [id number] .4mg Take 1 capsule by mouth in the morning. [facility] ketorolac (TORADOL) injection 15 mg 2022-11 05:45: 00 10-06 06:04 :00 No 15mg 15 mg, Slow IV Push, ONCE, 1 dose, On 10/05/23 at 2345, Routine [facility] HYDROcodone -acetaminop hen (NORCO 5) 5-325 mg tablet 1 tablet 2022-11 04:15: 00 10-06 04:06 :00 No 1{tbl} 1 tablet, Oral, ONCE, 1 dose, On 10/05/23 at 2215, [facility] naproxen 500 mg EC tablet 2022-11 00:00: 00 10-14 00:00 :00 No [id number] 500mg Take 1 tablet by mouth as needed for Pain (scale 4-6). [facility] emtricitabi ne-tenofovi r, TDF, 200-300 mg tablet 2022-11 0-16 00:00: 00 04-14 00:00 :00 No 1{tbl} Take 1 tablet by mouth every 24 (twenty-fo ur) hours. [facility] medroxyPROG ESTERone (DEPO-PROVE RA) syringe 150 mg 2022-11 006 14:00: 00 08-15 13:03 :00 No [id number] 150mg [facility] medroxyPROG ESTERone (DEPO-PROVE RA) syringe 150 mg 05-14 21:30: 00 05-14 20:47 :00 No [id number] [facility] medroxyPROG ESTERone (DEPO-PROVE RA) syringe 150 mg 02-18 21:15: 00 02-18 20:22 :00 No [id number] [facility] albuterol 90 mcg/actuati on inhaler 02-18 15:20: 25 Yes 2{puff} Inhale 2 Puffs every 6 (six) hours as needed. [facility] albuterol 2.5 mg /3 mL (0.083 %) nebulizer solution 02-18 15:20: 25 Yes 2.5mg Inhale 3 mL every 4 (four) hours as needed. [facility] SUMAtriptan 50 mg tablet 02-18 15:20: 25 Yes sumatripta n 50 mg tablet [facility] medroxyPROG ESTERone (DEPO-PROVE RA) syringe 150 mg 11-18 22:00: 00 11-18 21:18 :00 No [id number] 150mg [facility] clindamycin 300 mg capsule 11-18 15:33: 50 11-18 00:00 :00 No clindamyci n HCl 300 mg capsule Take 1 capsule 3 times a day by oral route for 10 days. [facility] ciprofloxac in HCl 500 mg tablet 11-18 15:33: 47 11-18 00:00 :00 No ciprofloxa monica 500 mg tablet [facility] cephALEXin 500 mg capsule 11-18 15:33: 40 11-18 00:00 :00 No cephalexin 500 mg capsule [facility] azithromyci n 250 mg tablet 11-18 15:33: 37 11-18 00:00 :00 No azithromyc in 250 mg tablet TAKE BY MOUTH 2 TABLETS TODAY THEN 1 TABLE DAILY FOR NEXT 4 DAYS [facility] doxylamine- pyridoxine, vit B6, 10-10 mg per tablet 11-18 15:33: 25 11-18 00:00 :00 No Diclegis 10 mg-10 mg tablet,del ayed release TAKE 1 TABLET BY MOUTH THREE TIMES A DAY NEEDED AND 2 AT BEDTIME [facility] norgestimat e-ethinyl estradioL 0.25-35 mg-mcg per tablet 11-18 15:33: 12 11-18 00:00 :00 No Sprintec (28) 0.25 mg-35 mcg tablet TAKE 1 TABLET BY MOUTH EVERY DAY [facility] Nitrofurant oin&Nit. Macrocryst 100 mg capsule 11-18 15:33: 09 11-18 00:00 :00 No nitrofuran toin monohydrat e/macrocry stals 100 mg capsule [facility] vit,calc76/ iron/folic (PRENATABS RX ORAL) 11-18 15:33: 03 11-18 00:00 :00 No Prenatabs Rx 29 mg iron-1 mg tablet [facility] PNV38/iron, crb,g/folic /dss/dha (CITRANATAL ASSURE ORAL) 11-18 15:33: 02 11-18 00:00 :00 No CitraNatal Assure 35 mg iron-1 mg-50 mg-300 mg oral pack [facility] PNV 67-iron ps-folate no.1-dha (VITAFOL ULTRA) 29 mg iron- 1 mg-200 mg Cap 11-18 15:32: 56 11-18 00:00 :00 No Vitafol Ultra 29 mg iron-1 mg-200 mg capsule [facility] sulfamethox azole-trime thoprim 800-160 mg per tablet 11-18 15:32: 50 11-18 00:00 :00 No sulfametho xazole 800 mg-trimeth oprim 160 mg tablet [facility] predniSONE 20 mg tablet 11-18 14:55: 24 Yes prednisone 20 mg tablet [facility] prazosin 1 mg capsule 11-18 14:55: 24 Yes prazosin 1 mg capsule [facility] ondansetron 4 mg tablet 11-18 14:55: 24 Yes ondansetro n HCl 4 mg tablet TAKE 1 TABLET BY MOUTH EVERY 12 HOURS NEEDED [facility] ondansetron 4 mg disintegrat ing tablet 11-18 14:55: 24 Yes ondansetro n 4 mg disintegra ting tablet [facility] lurasidone 20 mg tablet 11-18 14:55: 24 Yes Latuda 20 mg tablet [facility] Sodium Fluoride, Dental Gel, 1.1 % Crea 11-18 14:55: 24 Yes Denta 5000 Plus 1.1 % cream USE TWICE A DAY IN THE MORNING AND AT NIGHT. DO NOT EAT OR DRINK FOR AT LEAST 30 MINS [facility] fluconazole 200 mg tablet 11-18 14:55: 24 Yes fluconazol e 200 mg tablet [facility] escitalopra m oxalate 20 mg tablet 11-18 14:55: 24 Yes escitalopr am 20 mg tablet [facility] diphenoxyla te-atropine 2.5-0.025 mg tablet 11-18 14:55: 24 Yes diphenoxyl ate-atropi ne 2.5 mg-0.025 mg tablet [facility] dicyclomine 20 mg tablet 11-18 14:55: 24 Yes dicyclomin e 20 mg tablet TAKE 1 TABLET BY MOUTH EVERY 6 HOURS NEEDED [facility] chlorhexidi ne 0.12 % mouthwash 11-18 14:55: 24 Yes chlorhexid ine gluconate 0.12 % mouthwash USE TWICE DAILY [facility] busPIRone 5 mg tablet 11-18 14:55: 24 Yes buspirone 5 mg tablet [facility] ARIPiprazol e 5 mg tablet 11-18 14:55: 24 Yes aripiprazo le 5 mg tablet [facility] iron-FA-dha -epa-FAD-NA DH-be-mv (ENLYTE) 1.5 mg iron- 8.73 mg CpID 11-18 14:55: 24 Yes EnLyte 1.5 mg iron-8.73 mg capsule,im mediate - delay release [facility] iron-FA-dha -epa-FAD-NA DH-be-mv (ENLYTE) 1.5 mg iron- 8.73 mg CpID 11-18 14:55: 24 Yes EnLyte 1.5 mg iron-8.73 mg capsule,im mediate - delay release [facility] miSOPROStoL 200 mcg tablet 11-18 00:00: 00 10-08 00:00 :00 No [id number] Take one tablet night before procedure, then take one tablet morning of procedure [facility] medroxyPROG ESTERone (DEPO-PROVE RA) syringe 150 mg 2021-11 21:15: 00 08-26 20:14 :00 No [id number] 150mg [facility] SUMAtriptan 50 mg tablet 07-03 15:26: 51 Yes sumatripta n 50 mg tablet [facility] sulfamethox azole-trime thoprim 800-160 mg per tablet 07-03 15:26: 51 Yes sulfametho xazole 800 mg-trimeth oprim 160 mg tablet [facility] predniSONE 20 mg tablet 07-03 15:26: 51 Yes prednisone 20 mg tablet [facility] prazosin 1 mg capsule 07-03 15:26: 51 Yes prazosin 1 mg capsule [facility] ondansetron 4 mg tablet 07-03 15:26: 51 Yes ondansetro n HCl 4 mg tablet TAKE 1 TABLET BY MOUTH EVERY 12 HOURS NEEDED [facility] ondansetron 4 mg disintegrat ing tablet 07-03 15:26: 51 Yes ondansetro n 4 mg disintegra ting tablet [facility] Nitrofurant oin&Nit. Macrocryst 100 mg capsule 07-03 15:26: 51 Yes nitrofuran toin monohydrat e/macrocry stals 100 mg capsule [facility] lurasidone 20 mg tablet 07-03 15:26: 51 Yes Latuda 20 mg tablet [facility] Sodium Fluoride, Dental Gel, 1.1 % Crea 07-03 15:26: 51 Yes Denta 5000 Plus 1.1 % cream USE TWICE A DAY IN THE MORNING AND AT NIGHT. DO NOT EAT OR DRINK FOR AT LEAST 30 MINS [facility] fluconazole 200 mg tablet 07-03 15:26: 51 Yes fluconazol e 200 mg tablet [facility] escitalopra m oxalate 20 mg tablet 07-03 15:26: 51 Yes escitalopr am 20 mg tablet [facility] doxylamine- pyridoxine, vit B6, 10-10 mg per tablet 07-03 15:26: 51 Yes Diclegis 10 mg-10 mg tablet,del ayed release TAKE 1 TABLET BY MOUTH THREE TIMES A DAY NEEDED AND 2 AT BEDTIME [facility] diphenoxyla te-atropine 2.5-0.025 mg tablet 07-03 15:26: 51 Yes diphenoxyl ate-atropi ne 2.5 mg-0.025 mg tablet [facility] dicyclomine 20 mg tablet 07-03 15:26: 51 Yes dicyclomin e 20 mg tablet TAKE 1 TABLET BY MOUTH EVERY 6 HOURS NEEDED [facility] clindamycin 300 mg capsule 07-03 15:26: 51 Yes clindamyci n HCl 300 mg capsule Take 1 capsule 3 times a day by oral route for 10 days. [facility] ciprofloxac in HCl 500 mg tablet 07-03 15:26: 51 Yes ciprofloxa monica 500 mg tablet [facility] chlorhexidi ne 0.12 % mouthwash 07-03 15:26: 51 Yes chlorhexid ine gluconate 0.12 % mouthwash USE TWICE DAILY [facility] cephALEXin 500 mg capsule 07-03 15:26: 51 Yes cephalexin 500 mg capsule [facility] busPIRone 5 mg tablet 07-03 15:26: 51 Yes buspirone 5 mg tablet [facility] azithromyci n 250 mg tablet 07-03 15:26: 51 Yes azithromyc in 250 mg tablet TAKE BY MOUTH 2 TABLETS TODAY THEN 1 TABLE DAILY FOR NEXT 4 DAYS [facility] ARIPiprazol e 5 mg tablet 07-03 15:26: 51 Yes aripiprazo le 5 mg tablet [facility] PNV 67-iron ps-folate no.1-dha (VITAFOL ULTRA) 29 mg iron- 1 mg-200 mg Cap 07-03 15:26: 51 Yes Vitafol Ultra 29 mg iron-1 mg-200 mg capsule [facility] norgestimat e-ethinyl estradioL 0.25-35 mg-mcg per tablet 07-03 15:26: 51 Yes Sprintec (28) 0.25 mg-35 mcg tablet TAKE 1 TABLET BY MOUTH EVERY DAY [facility] vit,calc76/ iron/folic (PRENATABS RX ORAL) 07-03 15:26: 51 Yes Prenatabs Rx 29 mg iron-1 mg tablet [facility] iron-FA-dha -epa-FAD-NA DH-be-mv (ENLYTE) 1.5 mg iron- 8.73 mg CpID 07-03 15:26: 51 Yes EnLyte 1.5 mg iron-8.73 mg capsule,im mediate - delay release [facility] QUEtiapine 100 mg tablet 03-05 00:00: 00 10-08 00:00 :00 No [facility] FLUoxetine 40 mg capsule 03-05 00:00: 00 10-08 00:00 :00 No [facility] cetirizine 10 mg tablet 2022-0 4-18 00:00: 00 10-08 00:00 :00 No 10mg Take 10 mg by mouth daily. [facility] albuterol 90 mcg/actuati on inhaler 2020-11 16:22: 14 Yes 2{puff} Inhale 2 Puffs every 6 (six) hours as needed. [facility] albuterol 2.5 mg /3 mL (0.083 %) nebulizer solution 2020-11 16:22: 14 Yes 2.5mg Inhale 2.5 mg every 4 (four) hours as needed. [facility] FLUoxetine 20 mg capsule 2020-11 16:22: 14 Yes fluoxetine 20 mg capsule TAKE 1 CAPSULE BY MOUTH EVERY DAY [facility] docusate calcium 240 mg capsule 2020-11 00:00: 00 10-08 00:00 :00 No [id number] 240mg Take 1 capsule by mouth once daily as needed for Constipati on. [facility] ferrous sulfate 325 mg (65 mg iron) tablet 2020-11 00:00: 00 10-08 00:00 :00 No [id number] 325mg Take 1 tablet by mouth 2 (two) times daily. [facility] QUEtiapine 50 mg tablet 2018-11 00:00: 00 Yes 50mg Take 1 tablet by mouth in the morning. [facility] Immunizations Ordered Immunization Name Filled Immunization Name Date Status Comments Source Influenza Virus Vaccine Quad IM, Preserv and ABX Free 6 MO-64 YRS (FLUCELVAX) 2023-11-13 00:00:00 Completed [facility] Influenza Virus Vaccine Quad IM, Preserv and ABX Free 6 MO-64 YRS 2021-09-06 00:00:00 Completed [facility] Influenza Virus Vaccine Quad IM, Preserv and ABX Free 6 MO-64 YRS 2021-09-06 00:00:00 Completed [facility] Influenza Virus Vaccine Quad IM, Preserv and ABX Free 6 MO-64 YRS 2021-09-06 00:00:00 Completed [facility] Influenza Virus Vaccine Quad IM, Preserv and ABX Free 6 MO-64 YRS 2021-09-06 00:00:00 Completed [facility] Influenza Virus Vaccine Quad IM, Preserv and ABX Free 6 MO-64 YRS 2021-09-06 00:00:00 Completed [facility] Influenza Virus Vaccine Quad IM, Preserv and ABX Free 6 MO-64 YRS 2021-09-06 00:00:00 Completed [facility] Influenza Virus Vaccine Quad IM, Preserv and ABX Free 6 MO-64 YRS 2021-09-06 00:00:00 Completed [facility] Influenza Virus Vaccine Quad IM, Preserv and ABX Free 6 MO-64 YRS 2021-09-06 00:00:00 Completed [facility] Influenza Virus Vaccine Quad IM, Preserv and ABX Free 6 MO-64 YRS 2021-09-06 00:00:00 Completed [facility] Influenza Virus Vaccine Quad IM, Preserv and ABX Free 6 MO-64 YRS 2021-09-06 00:00:00 Completed [facility] Influenza Virus Vaccine Quad IM, Preserv and ABX Free 6 MO-64 YRS 2021-09-06 00:00:00 Completed [facility] Influenza Virus Vaccine Quad IM, Preserv and ABX Free 6 MO-64 YRS 2021-09-06 00:00:00 Completed [facility] Influenza Virus Vaccine Quad IM, Preserv and ABX Free 6 MO-64 YRS 2021-09-06 00:00:00 Completed [facility] Influenza Virus Vaccine Quad IM, Preserv and ABX Free 6 MO-64 YRS 2021-09-06 00:00:00 Completed [facility] Influenza Virus Vaccine Quad IM, Preserv and ABX Free 6 MO-64 YRS (FLUCELVAX) 2021-09-06 00:00:00 Completed [facility] 2021-07-17 00:00:00 Completed [facility] TDAP 2021-07-17 00:00:00 Completed [facility] TDAP 2021-07-17 00:00:00 Completed [facility] TDAP 2021-07-17 00:00:00 Completed [facility] TDAP 2021-07-17 00:00:00 Completed [facility] TDAP 2021-07-17 00:00:00 Completed [facility] TDAP 2021-07-17 00:00:00 Completed [facility] TDAP 2021-07-17 00:00:00 Completed [facility] TDAP 2021-07-17 00:00:00 Completed [facility] TDAP 2021-07-17 00:00:00 Completed [facility] TDAP 2021-07-17 00:00:00 Completed [facility] TDAP 2021-07-17 00:00:00 Completed [facility] TDAP 2021-07-17 00:00:00 Completed [facility] TDAP 2021-07-17 00:00:00 Completed [facility] TDAP 2021-07-17 00:00:00 Completed [facility] Rho (d) Immune Globulin 2021-05-29 00:00:00 Completed [facility] Rho (d) Immune Globulin 2021-05-29 00:00:00 Completed [facility] Rho (d) Immune Globulin 2021-05-29 00:00:00 Completed [facility] Rho (d) Immune Globulin 2021-05-29 00:00:00 Completed [facility] Rho (d) Immune Globulin 2021-05-29 00:00:00 Completed [facility] Rho (d) Immune Globulin 2021-05-29 00:00:00 Completed [facility] Rho (d) Immune Globulin 2021-05-29 00:00:00 Completed [facility] Rho (d) Immune Globulin 2021-05-29 00:00:00 Completed [facility] Rho (d) Immune Globulin 2021-05-29 00:00:00 Completed [facility] Rho (d) Immune Globulin 2021-05-29 00:00:00 Completed [facility] Rho (d) Immune Globulin 2021-05-29 00:00:00 Completed [facility] Rho (d) Immune Globulin 2021-05-29 00:00:00 Completed [facility] Rho (d) Immune Globulin 2021-05-29 00:00:00 Completed [facility] Rho (d) Immune Globulin 2021-05-29 00:00:00 Completed [facility] Rho (d) Immune Globulin 2021-05-29 00:00:00 Completed [facility] MMR 2020-02-01 00:00:00 Completed [facility] Rho (d) Immune Globulin 2020-02-01 00:00:00 Completed [facility] MMR 2020-02-01 00:00:00 Completed [facility] Rho (d) Immune Globulin 2020-02-01 00:00:00 Completed [facility] MMR 2020-02-01 00:00:00 Completed [facility] Rho (d) Immune Globulin 2020-02-01 00:00:00 Completed [facility] MMR 2020-02-01 00:00:00 Completed [facility] Rho (d) Immune Globulin 2020-02-01 00:00:00 Completed [facility] MMR 2020-02-01 00:00:00 Completed [facility] Rho (d) Immune Globulin 2020-02-01 00:00:00 Completed [facility] MMR 2020-02-01 00:00:00 Completed [facility] Rho (d) Immune Globulin 2020-02-01 00:00:00 Completed [facility] MMR 2020-02-01 00:00:00 Completed [facility] Rho (d) Immune Globulin 2020-02-01 00:00:00 Completed [facility] MMR 2020-02-01 00:00:00 Completed [facility] Rho (d) Immune Globulin 2020-02-01 00:00:00 Completed [facility] MMR 2020-02-01 00:00:00 Completed [facility] Rho (d) Immune Globulin 2020-02-01 00:00:00 Completed [facility] MMR 2020-02-01 00:00:00 Completed [facility] Rho (d) Immune Globulin 2020-02-01 00:00:00 Completed [facility] MMR 2020-02-01 00:00:00 Completed [facility] Rho (d) Immune Globulin 2020-02-01 00:00:00 Completed [facility] MMR 2020-02-01 00:00:00 Completed [facility] Rho (d) Immune Globulin 2020-02-01 00:00:00 Completed [facility] MMR 2020-02-01 00:00:00 Completed [facility] Rho (d) Immune Globulin 2020-02-01 00:00:00 Completed [facility] MMR 2020-02-01 00:00:00 Completed [facility] Rho (d) Immune Globulin 2020-02-01 00:00:00 Completed [facility] MMR 2020-02-01 00:00:00 Completed [facility] Rho (d) Immune Globulin 2020-02-01 00:00:00 Completed TDAP (ADACEL) VACCINE 2019-12-08 00:00:00 Completed [facility] TDAP (ADACEL) VACCINE 2019-12-08 00:00:00 Completed [facility] TDAP (ADACEL) VACCINE 2019-12-08 00:00:00 Completed [facility] TDAP (ADACEL) VACCINE 2019-12-08 00:00:00 Completed [facility] TDAP (ADACEL) VACCINE 2019-12-08 00:00:00 Completed [facility] TDAP (ADACEL) VACCINE 2019-12-08 00:00:00 Completed [facility] TDAP (ADACEL) VACCINE 2019-12-08 00:00:00 Completed [facility] TDAP (ADACEL) VACCINE 2019-12-08 00:00:00 Completed [facility] TDAP (ADACEL) VACCINE 2019-12-08 00:00:00 Completed [facility] TDAP (ADACEL) VACCINE 2019-12-08 00:00:00 Completed [facility] TDAP (ADACEL) VACCINE 2019-12-08 00:00:00 Completed [facility] TDAP (ADACEL) VACCINE 2019-12-08 00:00:00 Completed [facility] TDAP (ADACEL) VACCINE 2019-12-08 00:00:00 Completed [facility] TDAP (ADACEL) VACCINE 2019-12-08 00:00:00 Completed [facility] TDAP (ADACEL) VACCINE 2019-12-08 00:00:00 Completed Influenza Virus Vaccine Quad .5 mL IM 6+ MO 2019-08-18 00:00:00 Completed [facility] Influenza Virus Vaccine 2019-08-18 00:00:00 Completed [facility] Influenza Virus Vaccine Quad .5 mL IM 6+ MO 2019-08-18 00:00:00 Completed [facility] Influenza Virus Vaccine 2019-08-18 00:00:00 Completed [facility] Influenza Virus Vaccine Quad .5 mL IM 6+ MO 2019-08-18 00:00:00 Completed [facility] Influenza Virus Vaccine 2019-08-18 00:00:00 Completed [facility] Influenza Virus Vaccine Quad .5 mL IM 6+ MO 2019-08-18 00:00:00 Completed [facility] Influenza Virus Vaccine 2019-08-18 00:00:00 Completed [facility] Influenza Virus Vaccine Quad .5 mL IM 6+ MO 2019-08-18 00:00:00 Completed [facility] Influenza Virus Vaccine 2019-08-18 00:00:00 Completed [facility] Influenza Virus Vaccine Quad .5 mL IM 6+ MO 2019-08-18 00:00:00 Completed [facility] Influenza Virus Vaccine 2019-08-18 00:00:00 Completed [facility] Influenza Virus Vaccine Quad .5 mL IM 6+ MO 2019-08-18 00:00:00 Completed [facility] Influenza Virus Vaccine 2019-08-18 00:00:00 Completed [facility] Influenza Virus Vaccine Quad .5 mL IM 6+ MO 2019-08-18 00:00:00 Completed [facility] Influenza Virus Vaccine 2019-08-18 00:00:00 Completed [facility] Influenza Virus Vaccine Quad .5 mL IM 6+ MO 2019-08-18 00:00:00 Completed [facility] Influenza Virus Vaccine 2019-08-18 00:00:00 Completed [facility] Influenza Virus Vaccine Quad .5 mL IM 6+ MO 2019-08-18 00:00:00 Completed [facility] Influenza Virus Vaccine 2019-08-18 00:00:00 Completed [facility] Influenza Virus Vaccine Quad .5 mL IM 6+ MO 2019-08-18 00:00:00 Completed [facility] Influenza Virus Vaccine 2019-08-18 00:00:00 Completed [facility] Influenza Virus Vaccine Quad .5 mL IM 6+ MO 2019-08-18 00:00:00 Completed [facility] Influenza Virus Vaccine 2019-08-18 00:00:00 Completed [facility] Influenza Virus Vaccine Quad .5 mL IM 6+ MO 2019-08-18 00:00:00 Completed [facility] Influenza Virus Vaccine 2019-08-18 00:00:00 Completed [facility] Influenza Virus Vaccine Quad .5 mL IM 6+ MO 2019-08-18 00:00:00 Completed [facility] Influenza Virus Vaccine 2019-08-18 00:00:00 Completed [facility] Influenza Virus Vaccine Quad .5 mL IM 6+ MO (FLUZONE/FLULAVAL/FL UARIX) 2019-08-18 00:00:00 Completed Influenza Virus Vaccine 2019-08-18 00:00:00 Completed Rho (d) Immune Globulin 2019-07-27 00:00:00 Completed [facility] Rho (d) Immune Globulin 2019-07-27 00:00:00 Completed [facility] Rho (d) Immune Globulin 2019-07-27 00:00:00 Completed [facility] Rho (d) Immune Globulin 2019-07-27 00:00:00 Completed [facility] Rho (d) Immune Globulin 2019-07-27 00:00:00 Completed [facility] Rho (d) Immune Globulin 2019-07-27 00:00:00 Completed [facility] Rho (d) Immune Globulin 2019-07-27 00:00:00 Completed [facility] Rho (d) Immune Globulin 2019-07-27 00:00:00 Completed [facility] Rho (d) Immune Globulin 2019-07-27 00:00:00 Completed [facility] Rho (d) Immune Globulin 2019-07-27 00:00:00 Completed [facility] Rho (d) Immune Globulin 2019-07-27 00:00:00 Completed [facility] Rho (d) Immune Globulin 2019-07-27 00:00:00 Completed [facility] Rho (d) Immune Globulin 2019-07-27 00:00:00 Completed [facility] Rho (d) Immune Globulin 2019-07-27 00:00:00 Completed [facility] Rho (d) Immune Globulin 2019-07-27 00:00:00 Completed [facility] Influenza Virus Vaccine Quad IM 3+ YRS 2018-09-10 00:00:00 Completed [facility] Influenza Virus Vaccine Quad IM 3+ YRS 2018-09-10 00:00:00 Completed [facility] Influenza Virus Vaccine Quad IM 3+ YRS 2018-09-10 00:00:00 Completed [facility] Influenza Virus Vaccine Quad IM 3+ YRS 2018-09-10 00:00:00 Completed [facility] Influenza Virus Vaccine Quad IM 3+ YRS 2018-09-10 00:00:00 Completed [facility] Influenza Virus Vaccine Quad IM 3+ YRS 2018-09-10 00:00:00 Completed [facility] Influenza Virus Vaccine Quad IM 3+ YRS 2018-09-10 00:00:00 Completed [facility] Influenza Virus Vaccine Quad IM 3+ YRS 2018-09-10 00:00:00 Completed [facility] Influenza Virus Vaccine Quad IM 3+ YRS 2018-09-10 00:00:00 Completed [facility] Influenza Virus Vaccine Quad IM 3+ YRS 2018-09-10 00:00:00 Completed [facility] Influenza Virus Vaccine Quad IM 3+ YRS 2018-09-10 00:00:00 Completed [facility] Influenza Virus Vaccine Quad IM 3+ YRS 2018-09-10 00:00:00 Completed [facility] Influenza Virus Vaccine Quad IM 3+ YRS 2018-09-10 00:00:00 Completed [facility] Influenza Virus Vaccine Quad IM 3+ YRS 2018-09-10 00:00:00 Completed [facility] Influenza Virus Vaccine Quad IM 3+ YRS 2018-09-10 00:00:00 Completed Influenza Virus Vaccine Quad IM 3+ YRS 2017-09-12 00:00:00 Completed [facility] Influenza Virus Vaccine Quad IM 3+ YRS 2017-09-12 00:00:00 Completed [facility] Influenza Virus Vaccine Quad IM 3+ YRS 2017-09-12 00:00:00 Completed [facility] Influenza Virus Vaccine Quad IM 3+ YRS 2017-09-12 00:00:00 Completed [facility] Influenza Virus Vaccine Quad IM 3+ YRS 2017-09-12 00:00:00 Completed [facility] Influenza Virus Vaccine Quad IM 3+ YRS 2017-09-12 00:00:00 Completed [facility] Influenza Virus Vaccine Quad IM 3+ YRS 2017-09-12 00:00:00 Completed [facility] Influenza Virus Vaccine Quad IM 3+ YRS 2017-09-12 00:00:00 Completed [facility] Influenza Virus Vaccine Quad IM 3+ YRS 2017-09-12 00:00:00 Completed [facility] Influenza Virus Vaccine Quad IM 3+ YRS 2017-09-12 00:00:00 Completed [facility] Influenza Virus Vaccine Quad IM 3+ YRS 2017-09-12 00:00:00 Completed [facility] Influenza Virus Vaccine Quad IM 3+ YRS 2017-09-12 00:00:00 Completed [facility] Influenza Virus Vaccine Quad IM 3+ YRS 2017-09-12 00:00:00 Completed [facility] Influenza Virus Vaccine Quad IM 3+ YRS 2017-09-12 00:00:00 Completed [facility] Influenza Virus Vaccine Quad IM 3+ YRS 2017-09-12 00:00:00 Completed Influenza Virus Vaccine Nasal 2015-10-13 00:00:00 Completed [facility] Influenza Virus Vaccine Nasal 2015-10-13 00:00:00 Completed [facility] Influenza Virus Vaccine Nasal 2015-10-13 00:00:00 Completed [facility] Influenza Virus Vaccine Nasal 2015-10-13 00:00:00 Completed [facility] Influenza Virus Vaccine Nasal 2015-10-13 00:00:00 Completed [facility] Influenza Virus Vaccine Nasal 2015-10-13 00:00:00 Completed [facility] Influenza Virus Vaccine Nasal 2015-10-13 00:00:00 Completed [facility] Influenza Virus Vaccine Nasal 2015-10-13 00:00:00 Completed [facility] Influenza Virus Vaccine Nasal 2015-10-13 00:00:00 Completed [facility] Influenza Virus Vaccine Nasal 2015-10-13 00:00:00 Completed [facility] Influenza Virus Vaccine Nasal 2015-10-13 00:00:00 Completed [facility] Influenza Virus Vaccine Nasal 2015-10-13 00:00:00 Completed [facility] Influenza Virus Vaccine Nasal 2015-10-13 00:00:00 Completed [facility] Influenza Virus Vaccine Nasal 2015-10-13 00:00:00 Completed [facility] Influenza, Live, Trivalent, Intranasal (FLUMIST) 2015-10-13 00:00:00 Completed Influenza Virus Vaccine Quad Nasal (Flumist) 2015-10-13 00:00:00 Completed Influenza Virus Vaccine 2014-09-02 00:00:00 Completed [facility] Influenza Virus Vaccine 2014-09-02 00:00:00 Completed [facility] Influenza Virus Vaccine 2014-09-02 00:00:00 Completed [facility] Influenza Virus Vaccine 2014-09-02 00:00:00 Completed [facility] Influenza Virus Vaccine 2014-09-02 00:00:00 Completed [facility] Influenza Virus Vaccine 2014-09-02 00:00:00 Completed [facility] Influenza Virus Vaccine 2014-09-02 00:00:00 Completed [facility] Influenza Virus Vaccine 2014-09-02 00:00:00 Completed [facility] Influenza Virus Vaccine 2014-09-02 00:00:00 Completed [facility] Influenza Virus Vaccine 2014-09-02 00:00:00 Completed [facility] Influenza Virus Vaccine 2014-09-02 00:00:00 Completed [facility] Influenza Virus Vaccine 2014-09-02 00:00:00 Completed [facility] Influenza Virus Vaccine 2014-09-02 00:00:00 Completed [facility] Influenza Virus Vaccine 2014-09-02 00:00:00 Completed [facility] Influenza Virus Vaccine 2014-09-02 00:00:00 Completed [facility] Influenza Virus Vaccine Quad .5 mL IM 6+ MO (FLUZONE/FLULAVAL/FL UARIX) 2014-09-02 00:00:00 Completed HPV 2014-01-18 00:00:00 Completed [facility] Meningococcal Vaccine 2014-01-18 00:00:00 Completed [facility] Varicella (varivax)(chicken pox) 2014-01-18 00:00:00 Completed [facility] TDAP 2014-01-18 00:00:00 Completed [facility] Meningococcal Polysaccharide (groups A, C, Y and W-135) conjugate vaccine (MCV4P) 2014-01-18 00:00:00 Completed [facility] HPV 2014-01-18 00:00:00 Completed [facility] Meningococcal Vaccine 2014-01-18 00:00:00 Completed [facility] Varicella (varivax)(chicken pox) 2014-01-18 00:00:00 Completed [facility] TDAP 2014-01-18 00:00:00 Completed [facility] Meningococcal Polysaccharide (groups A, C, Y and W-135) conjugate vaccine (MCV4P) 2014-01-18 00:00:00 Completed [facility] HPV 2014-01-18 00:00:00 Completed [facility] Meningococcal Vaccine 2014-01-18 00:00:00 Completed [facility] Varicella (varivax)(chicken pox) 2014-01-18 00:00:00 Completed [facility] TDAP 2014-01-18 00:00:00 Completed [facility] Meningococcal Polysaccharide (groups A, C, Y and W-135) conjugate vaccine (MCV4P) 2014-01-18 00:00:00 Completed [facility] HPV 2014-01-18 00:00:00 Completed [facility] Meningococcal Vaccine 2014-01-18 00:00:00 Completed [facility] Varicella (varivax)(chicken pox) 2014-01-18 00:00:00 Completed [facility] TDAP 2014-01-18 00:00:00 Completed [facility] Meningococcal Polysaccharide (groups A, C, Y and W-135) conjugate vaccine (MCV4P) 2014-01-18 00:00:00 Completed [facility] HPV 2014-01-18 00:00:00 Completed [facility] Meningococcal Vaccine 2014-01-18 00:00:00 Completed [facility] Varicella (varivax)(chicken pox) 2014-01-18 00:00:00 Completed [facility] TDAP 2014-01-18 00:00:00 Completed [facility] Meningococcal Polysaccharide (groups A, C, Y and W-135) conjugate vaccine (MCV4P) 2014-01-18 00:00:00 Completed [facility] HPV 2014-01-18 00:00:00 Completed [facility] Meningococcal Vaccine 2014-01-18 00:00:00 Completed [facility] Varicella (varivax)(chicken pox) 2014-01-18 00:00:00 Completed [facility] TDAP 2014-01-18 00:00:00 Completed [facility] Meningococcal Polysaccharide (groups A, C, Y and W-135) conjugate vaccine (MCV4P) 2014-01-18 00:00:00 Completed [facility] HPV 2014-01-18 00:00:00 Completed [facility] Meningococcal Vaccine 2014-01-18 00:00:00 Completed [facility] Varicella (varivax)(chicken pox) 2014-01-18 00:00:00 Completed [facility] TDAP 2014-01-18 00:00:00 Completed [facility] Meningococcal Polysaccharide (groups A, C, Y and W-135) conjugate vaccine (MCV4P) 2014-01-18 00:00:00 Completed [facility] HPV 2014-01-18 00:00:00 Completed [facility] Meningococcal Vaccine 2014-01-18 00:00:00 Completed [facility] Varicella (varivax)(chicken pox) 2014-01-18 00:00:00 Completed [facility] TDAP 2014-01-18 00:00:00 Completed [facility] Meningococcal Polysaccharide (groups A, C, Y and W-135) conjugate vaccine (MCV4P) 2014-01-18 00:00:00 Completed [facility] HPV 2014-01-18 00:00:00 Completed [facility] Meningococcal Vaccine 2014-01-18 00:00:00 Completed [facility] Varicella (varivax)(chicken pox) 2014-01-18 00:00:00 Completed [facility] TDAP 2014-01-18 00:00:00 Completed [facility] Meningococcal Polysaccharide (groups A, C, Y and W-135) conjugate vaccine (MCV4P) 2014-01-18 00:00:00 Completed [facility] HPV 2014-01-18 00:00:00 Completed [facility] Meningococcal Vaccine 2014-01-18 00:00:00 Completed [facility] Varicella (varivax)(chicken pox) 2014-01-18 00:00:00 Completed [facility] TDAP 2014-01-18 00:00:00 Completed [facility] Meningococcal Polysaccharide (groups A, C, Y and W-135) conjugate vaccine (MCV4P) 2014-01-18 00:00:00 Completed [facility] HPV 2014-01-18 00:00:00 Completed [facility] Meningococcal Vaccine 2014-01-18 00:00:00 Completed [facility] Varicella (varivax)(chicken pox) 2014-01-18 00:00:00 Completed [facility] TDAP 2014-01-18 00:00:00 Completed [facility] Meningococcal Polysaccharide (groups A, C, Y and W-135) conjugate vaccine (MCV4P) 2014-01-18 00:00:00 Completed [facility] HPV 2014-01-18 00:00:00 Completed [facility] Meningococcal Vaccine 2014-01-18 00:00:00 Completed [facility] Varicella (varivax)(chicken pox) 2014-01-18 00:00:00 Completed [facility] TDAP 2014-01-18 00:00:00 Completed [facility] Meningococcal Polysaccharide (groups A, C, Y and W-135) conjugate vaccine (MCV4P) 2014-01-18 00:00:00 Completed [facility] HPV 2014-01-18 00:00:00 Completed [facility] Meningococcal Vaccine 2014-01-18 00:00:00 Completed [facility] Varicella (varivax)(chicken pox) 2014-01-18 00:00:00 Completed [facility] TDAP 2014-01-18 00:00:00 Completed [facility] Meningococcal Polysaccharide (groups A, C, Y and W-135) conjugate vaccine (MCV4P) 2014-01-18 00:00:00 Completed [facility] HPV 2014-01-18 00:00:00 Completed [facility] Meningococcal Vaccine 2014-01-18 00:00:00 Completed [facility] Varicella (varivax)(chicken pox) 2014-01-18 00:00:00 Completed [facility] TDAP 2014-01-18 00:00:00 Completed [facility] Meningococcal Polysaccharide (groups A, C, Y and W-135) conjugate vaccine (MCV4P) 2014-01-18 00:00:00 Completed [facility] HPV 2014-01-18 00:00:00 Completed Meningococcal Vaccine 2014-01-18 00:00:00 Completed Varicella (varivax)(chicken pox) 2014-01-18 00:00:00 Completed TDAP 2014-01-18 00:00:00 Completed Meningococcal Polysaccharide (groups A, C, Y and W-135) conjugate vaccine (MCV4P) 2014-01-18 00:00:00 Completed Influenza Virus Vaccine 2013-09-23 00:00:00 Completed [facility] Influenza Virus Vaccine 2013-09-23 00:00:00 Completed [facility] Influenza Virus Vaccine 2013-09-23 00:00:00 Completed [facility] Influenza Virus Vaccine 2013-09-23 00:00:00 Completed [facility] Influenza Virus Vaccine 2013-09-23 00:00:00 Completed [facility] Influenza Virus Vaccine 2013-09-23 00:00:00 Completed [facility] Influenza Virus Vaccine 2013-09-23 00:00:00 Completed [facility] Influenza Virus Vaccine 2013-09-23 00:00:00 Completed [facility] Influenza Virus Vaccine 2013-09-23 00:00:00 Completed [facility] Influenza Virus Vaccine 2013-09-23 00:00:00 Completed [facility] Influenza Virus Vaccine 2013-09-23 00:00:00 Completed [facility] Influenza Virus Vaccine 2013-09-23 00:00:00 Completed [facility] Influenza Virus Vaccine 2013-09-23 00:00:00 Completed [facility] Influenza Virus Vaccine 2013-09-23 00:00:00 Completed [facility] Influenza Virus Vaccine 2013-09-23 00:00:00 Completed Influenza Virus Vaccine Quad .5 mL IM 6+ MO (FLUZONE/FLULAVAL/FL UARIX) 2013-09-23 00:00:00 Completed Influenza Virus Vaccine 2012-11-24 00:00:00 Completed [facility] Influenza Virus Vaccine 2012-11-24 00:00:00 Completed [facility] Influenza Virus Vaccine 2012-11-24 00:00:00 Completed [facility] Influenza Virus Vaccine 2012-11-24 00:00:00 Completed [facility] Influenza Virus Vaccine 2012-11-24 00:00:00 Completed [facility] Influenza Virus Vaccine 2012-11-24 00:00:00 Completed [facility] Influenza Virus Vaccine 2012-11-24 00:00:00 Completed [facility] Influenza Virus Vaccine 2012-11-24 00:00:00 Completed [facility] Influenza Virus Vaccine 2012-11-24 00:00:00 Completed [facility] Influenza Virus Vaccine 2012-11-24 00:00:00 Completed [facility] Influenza Virus Vaccine 2012-11-24 00:00:00 Completed [facility] Influenza Virus Vaccine 2012-11-24 00:00:00 Completed [facility] Influenza Virus Vaccine 2012-11-24 00:00:00 Completed [facility] Influenza Virus Vaccine 2012-11-24 00:00:00 Completed [facility] Influenza Virus Vaccine 2012-11-24 00:00:00 Completed Influenza, adjuvanted, trivalent, PF (FLUAD) 2012-11-24 00:00:00 Completed Influenza, split virus, trivalent, PF (AFLURIA/FLUARIX/FLU LAVAL/FLUZONE) 2012-11-24 00:00:00 Completed Influenza Virus Vaccine Nasal 2011-08-23 00:00:00 Completed [facility] Influenza Virus Vaccine Nasal 2011-08-23 00:00:00 Completed [facility] Influenza Virus Vaccine Nasal 2011-08-23 00:00:00 Completed [facility] Influenza Virus Vaccine Nasal 2011-08-23 00:00:00 Completed [facility] Influenza Virus Vaccine Nasal 2011-08-23 00:00:00 Completed [facility] Influenza Virus Vaccine Nasal 2011-08-23 00:00:00 Completed [facility] Influenza Virus Vaccine Nasal 2011-08-23 00:00:00 Completed [facility] Influenza Virus Vaccine Nasal 2011-08-23 00:00:00 Completed [facility] Influenza Virus Vaccine Nasal 2011-08-23 00:00:00 Completed [facility] Influenza Virus Vaccine Nasal 2011-08-23 00:00:00 Completed [facility] Influenza Virus Vaccine Nasal 2011-08-23 00:00:00 Completed [facility] Influenza Virus Vaccine Nasal 2011-08-23 00:00:00 Completed [facility] Influenza Virus Vaccine Nasal 2011-08-23 00:00:00 Completed [facility] Influenza Virus Vaccine Nasal 2011-08-23 00:00:00 Completed [facility] Influenza, Live, Trivalent, Intranasal (FLUMIST) 2011-08-23 00:00:00 Completed HPV 2011-07-04 00:00:00 Completed [facility] HPV 2011-07-04 00:00:00 Completed [facility] HPV 2011-07-04 00:00:00 Completed [facility] HPV 2011-07-04 00:00:00 Completed [facility] HPV 2011-07-04 00:00:00 Completed [facility] HPV 2011-07-04 00:00:00 Completed [facility] HPV 2011-07-04 00:00:00 Completed [facility] HPV 2011-07-04 00:00:00 Completed [facility] HPV 2011-07-04 00:00:00 Completed [facility] HPV 2011-07-04 00:00:00 Completed [facility] HPV 2011-07-04 00:00:00 Completed [facility] HPV 2011-07-04 00:00:00 Completed [facility] HPV 2011-07-04 00:00:00 Completed [facility] HPV 2011-07-04 00:00:00 Completed [facility] HPV 2011-07-04 00:00:00 Completed Influenza Virus Vaccine 2010-09-06 00:00:00 Completed [facility] Influenza Virus Vaccine 2010-09-06 00:00:00 Completed [facility] Influenza Virus Vaccine 2010-09-06 00:00:00 Completed [facility] Influenza Virus Vaccine 2010-09-06 00:00:00 Completed [facility] Influenza Virus Vaccine 2010-09-06 00:00:00 Completed [facility] Influenza Virus Vaccine 2010-09-06 00:00:00 Completed [facility] Influenza Virus Vaccine 2010-09-06 00:00:00 Completed [facility] Influenza Virus Vaccine 2010-09-06 00:00:00 Completed [facility] Influenza Virus Vaccine 2010-09-06 00:00:00 Completed [facility] Influenza Virus Vaccine 2010-09-06 00:00:00 Completed [facility] Influenza Virus Vaccine 2010-09-06 00:00:00 Completed [facility] Influenza Virus Vaccine 2010-09-06 00:00:00 Completed [facility] Influenza Virus Vaccine 2010-09-06 00:00:00 Completed [facility] Influenza Virus Vaccine 2010-09-06 00:00:00 Completed [facility] Influenza Virus Vaccine 2010-09-06 00:00:00 Completed Flu Whole Virus 2010-09-06 00:00:00 Completed HEPATITIS A 2006-12-16 00:00:00 Completed [facility] HEPATITIS A 2006-12-16 00:00:00 Completed [facility] HEPATITIS A 2006-12-16 00:00:00 Completed [facility] HEPATITIS A 2006-12-16 00:00:00 Completed [facility] HEPATITIS A 2006-12-16 00:00:00 Completed [facility] HEPATITIS A 2006-12-16 00:00:00 Completed [facility] HEPATITIS A 2006-12-16 00:00:00 Completed [facility] HEPATITIS A 2006-12-16 00:00:00 Completed [facility] HEPATITIS A 2006-12-16 00:00:00 Completed [facility] HEPATITIS A 2006-12-16 00:00:00 [facility] [facility] HEPATITIS A 2006-12-16 00:00:00 Completed [facility] HEPATITIS A 2006-12-16 00:00:00 Completed [facility] HEPATITIS A 2006-12-16 00:00:00 Completed [facility] HEPATITIS A 2006-12-16 00:00:00 Completed [facility] HEPATITIS A 2006-12-16 00:00:00 Completed HEPATITIS A 2005-10-11 00:00:00 Completed [facility] HEPATITIS A 2005-10-11 00:00:00 Completed [facility] HEPATITIS A 2005-10-11 00:00:00 Completed [facility] HEPATITIS A 2005-10-11 00:00:00 Completed [facility] HEPATITIS A 2005-10-11 00:00:00 Completed [facility] HEPATITIS A 2005-10-11 00:00:00 Completed [facility] HEPATITIS A 2005-10-11 00:00:00 Completed [facility] HEPATITIS A 2005-10-11 00:00:00 Completed [facility] HEPATITIS A 2005-10-11 00:00:00 Completed [facility] HEPATITIS A 2005-10-11 00:00:00 Completed [facility] HEPATITIS A 2005-10-11 00:00:00 Completed [facility] HEPATITIS A 2005-10-11 00:00:00 Completed [facility] HEPATITIS A 2005-10-11 00:00:00 Completed [facility] HEPATITIS A 2005-10-11 00:00:00 Completed [facility] HEPATITIS A 2005-10-11 00:00:00 Completed Influenza Virus Vaccine 2003-09-06 00:00:00 Completed [facility] Influenza Virus Vaccine 2003-09-06 00:00:00 Completed [facility] Influenza Virus Vaccine 2003-09-06 00:00:00 Completed [facility] Influenza Virus Vaccine 2003-09-06 00:00:00 Completed [facility] Influenza Virus Vaccine 2003-09-06 00:00:00 Completed [facility] Influenza Virus Vaccine 2003-09-06 00:00:00 Completed [facility] Influenza Virus Vaccine 2003-09-06 00:00:00 Completed [facility] Influenza Virus Vaccine 2003-09-06 00:00:00 Completed [facility] Influenza Virus Vaccine 2003-09-06 00:00:00 Completed [facility] Influenza Virus Vaccine 2003-09-06 00:00:00 Completed [facility] Influenza Virus Vaccine 2003-09-06 00:00:00 Completed [facility] Influenza Virus Vaccine 2003-09-06 00:00:00 Completed [facility] Influenza Virus Vaccine 2003-09-06 00:00:00 Completed [facility] Influenza Virus Vaccine 2003-09-06 00:00:00 Completed [facility] Influenza Virus Vaccine 2003-09-06 00:00:00 Completed Influenza, adjuvanted, trivalent, PF (FLUAD) 2003-09-06 00:00:00 Completed Influenza, split virus, trivalent, PF (AFLURIA/FLUARIX/FLU LAVAL/FLUZONE) 2003-09-06 00:00:00 Completed DTAP 2003-02-08 00:00:00 Completed [facility] HIB 4 Dose Schedule 2003-02-08 00:00:00 Completed [facility] TDAP 2003-02-08 00:00:00 Completed [facility] DTAP 2003-02-08 00:00:00 Completed [facility] HIB 4 Dose Schedule 2003-02-08 00:00:00 Completed [facility] TDAP 2003-02-08 00:00:00 Completed [facility] DTAP 2003-02-08 00:00:00 Completed [facility] TDAP 2003-02-08 00:00:00 Completed [facility] Heamophilus Influenza B 2003-02-08 00:00:00 Completed [facility] DTAP 2003-02-08 00:00:00 Completed [facility] TDAP 2003-02-08 00:00:00 Completed [facility] Heamophilus Influenza B 2003-02-08 00:00:00 Completed [facility] DTAP 2003-02-08 00:00:00 Completed [facility] HIB 4 Dose Schedule 2003-02-08 00:00:00 Completed [facility] TDAP 2003-02-08 00:00:00 Completed [facility] DTAP 2003-02-08 00:00:00 Completed [facility] TDAP 2003-02-08 00:00:00 Completed [facility] Heamophilus Influenza B 2003-02-08 00:00:00 Completed [facility] DTAP 2003-02-08 00:00:00 Completed [facility] HIB 4 Dose Schedule 2003-02-08 00:00:00 Completed [facility] TDAP 2003-02-08 00:00:00 Completed [facility] DTAP 2003-02-08 00:00:00 Completed [facility] HIB 4 Dose Schedule 2003-02-08 00:00:00 Completed [facility] TDAP 2003-02-08 00:00:00 Completed [facility] DTAP 2003-02-08 00:00:00 Completed [facility] HIB 4 Dose Schedule 2003-02-08 00:00:00 Completed [facility] TDAP 2003-02-08 00:00:00 Completed [facility] DTAP 2003-02-08 00:00:00 Completed [facility] HIB 4 Dose Schedule 2003-02-08 00:00:00 Completed [facility] TDAP 2003-02-08 00:00:00 Completed [facility] DTAP 2003-02-08 00:00:00 Completed [facility] HIB 4 Dose Schedule 2003-02-08 00:00:00 Completed [facility] TDAP 2003-02-08 00:00:00 Completed [facility] DTAP 2003-02-08 00:00:00 Completed [facility] HIB 4 Dose Schedule 2003-02-08 00:00:00 Completed [facility] TDAP 2003-02-08 00:00:00 Completed [facility] DTAP 2003-02-08 00:00:00 Completed [facility] HIB 4 Dose Schedule 2003-02-08 00:00:00 Completed [facility] TDAP 2003-02-08 00:00:00 Completed [facility] DTAP 2003-02-08 00:00:00 Completed [facility] HIB 4 Dose Schedule 2003-02-08 00:00:00 Completed [facility] TDAP 2003-02-08 00:00:00 Completed [facility] DTAP 2003-02-08 00:00:00 Completed Heamophilus Influenza B 2003-02-08 00:00:00 Completed TDAP 2003-02-08 00:00:00 Completed DTaP, Unspecified Formulation 2003-02-08 00:00:00 Completed Varicella (varivax)(chicken pox) 2002-11-23 00:00:00 Completed [facility] MMR 2002-11-23 00:00:00 Completed [facility] IPV 2002-11-23 00:00:00 Completed [facility] Varicella (varivax)(chicken pox) 2002-11-23 00:00:00 Completed [facility] MMR 2002-11-23 00:00:00 Completed [facility] IPV 2002-11-23 00:00:00 Completed [facility] Varicella (varivax)(chicken pox) 2002-11-23 00:00:00 Completed [facility] MMR 2002-11-23 00:00:00 Completed [facility] IPV 2002-11-23 00:00:00 Completed [facility] Varicella (varivax)(chicken pox) 2002-11-23 00:00:00 Completed [facility] MMR 2002-11-23 00:00:00 Completed [facility] IPV 2002-11-23 00:00:00 Completed [facility] Varicella (varivax)(chicken pox) 2002-11-23 00:00:00 Completed [facility] MMR 2002-11-23 00:00:00 Completed [facility] IPV 2002-11-23 00:00:00 Completed [facility] Varicella (varivax)(chicken pox) 2002-11-23 00:00:00 Completed [facility] MMR 2002-11-23 00:00:00 Completed [facility] IPV 2002-11-23 00:00:00 Completed [facility] Varicella (varivax)(chicken pox) 2002-11-23 00:00:00 Completed [facility] MMR 2002-11-23 00:00:00 Completed [facility] IPV 2002-11-23 00:00:00 Completed [facility] Varicella (varivax)(chicken pox) 2002-11-23 00:00:00 Completed [facility] MMR 2002-11-23 00:00:00 Completed [facility] IPV 2002-11-23 00:00:00 Completed [facility] Varicella (varivax)(chicken pox) 2002-11-23 00:00:00 Completed [facility] MMR 2002-11-23 00:00:00 Completed [facility] IPV 2002-11-23 00:00:00 Completed [facility] Varicella (varivax)(chicken pox) 2002-11-23 00:00:00 Completed [facility] MMR 2002-11-23 00:00:00 Completed [facility] IPV 2002-11-23 00:00:00 Completed [facility] Varicella (varivax)(chicken pox) 2002-11-23 00:00:00 Completed [facility] MMR 2002-11-23 00:00:00 Completed [facility] IPV 2002-11-23 00:00:00 Completed [facility] Varicella (varivax)(chicken pox) 2002-11-23 00:00:00 Completed [facility] MMR 2002-11-23 00:00:00 Completed [facility] IPV 2002-11-23 00:00:00 Completed [facility] Varicella (varivax)(chicken pox) 2002-11-23 00:00:00 Completed [facility] MMR 2002-11-23 00:00:00 Completed [facility] IPV 2002-11-23 00:00:00 Completed [facility] Varicella (varivax)(chicken pox) 2002-11-23 00:00:00 Completed [facility] MMR 2002-11-23 00:00:00 Completed [facility] IPV 2002-11-23 00:00:00 Completed [facility] Varicella (varivax)(chicken pox) 2002-11-23 00:00:00 Completed MMR 2002-11-23 00:00:00 Completed IPV 2002-11-23 00:00:00 Completed DTAP 2002-08-03 00:00:00 Completed [facility] HIB 4 Dose Schedule 2002-08-03 00:00:00 Completed [facility] Hep B, Adol or Pedi Dosage 2002-08-03 00:00:00 Completed [facility] TDAP 2002-08-03 00:00:00 Completed [facility] DTAP 2002-08-03 00:00:00 Completed [facility] HIB 4 Dose Schedule 2002-08-03 00:00:00 Completed [facility] Hep B, Adol or Pedi Dosage 2002-08-03 00:00:00 Completed [facility] TDAP 2002-08-03 00:00:00 Completed [facility] DTAP 2002-08-03 00:00:00 Completed [facility] Hep B, Adol or Pedi Dosage 2002-08-03 00:00:00 Completed [facility] TDAP 2002-08-03 00:00:00 Completed [facility] Heamophilus Influenza B 2002-08-03 00:00:00 Completed [facility] DTAP 2002-08-03 00:00:00 Completed [facility] Hep B, Adol or Pedi Dosage 2002-08-03 00:00:00 Completed [facility] TDAP 2002-08-03 00:00:00 Completed [facility] Heamophilus Influenza B 2002-08-03 00:00:00 Completed [facility] DTAP 2002-08-03 00:00:00 Completed [facility] HIB 4 Dose Schedule 2002-08-03 00:00:00 Completed [facility] Hep B, Adol or Pedi Dosage 2002-08-03 00:00:00 Completed [facility] TDAP 2002-08-03 00:00:00 Completed [facility] DTAP 2002-08-03 00:00:00 Completed [facility] Hep B, Adol or Pedi Dosage 2002-08-03 00:00:00 Completed [facility] TDAP 2002-08-03 00:00:00 Completed [facility] Heamophilus Influenza B 2002-08-03 00:00:00 Completed [facility] DTAP 2002-08-03 00:00:00 Completed [facility] HIB 4 Dose Schedule 2002-08-03 00:00:00 Completed [facility] Hep B, Adol or Pedi Dosage 2002-08-03 00:00:00 Completed [facility] TDAP 2002-08-03 00:00:00 Completed [facility] DTAP 2002-08-03 00:00:00 Completed [facility] HIB 4 Dose Schedule 2002-08-03 00:00:00 Completed [facility] Hep B, Adol or Pedi Dosage 2002-08-03 00:00:00 Completed [facility] TDAP 2002-08-03 00:00:00 Completed [facility] DTAP 2002-08-03 00:00:00 Completed [facility] HIB 4 Dose Schedule 2002-08-03 00:00:00 Completed [facility] Hep B, Adol or Pedi Dosage 2002-08-03 00:00:00 Completed [facility] TDAP 2002-08-03 00:00:00 Completed [facility] DTAP 2002-08-03 00:00:00 Completed [facility] HIB 4 Dose Schedule 2002-08-03 00:00:00 Completed [facility] Hep B, Adol or Pedi Dosage 2002-08-03 00:00:00 Completed [facility] TDAP 2002-08-03 00:00:00 Completed [facility] DTAP 2002-08-03 00:00:00 Completed [facility] HIB 4 Dose Schedule 2002-08-03 00:00:00 Completed [facility] Hep B, Adol or Pedi Dosage 2002-08-03 00:00:00 Completed [facility] TDAP 2002-08-03 00:00:00 Completed [facility] DTAP 2002-08-03 00:00:00 Completed [facility] HIB 4 Dose Schedule 2002-08-03 00:00:00 Completed [facility] Hep B, Adol or Pedi Dosage 2002-08-03 00:00:00 Completed [facility] TDAP 2002-08-03 00:00:00 Completed [facility] DTAP 2002-08-03 00:00:00 Completed [facility] HIB 4 Dose Schedule 2002-08-03 00:00:00 Completed [facility] Hep B, Adol or Pedi Dosage 2002-08-03 00:00:00 Completed [facility] TDAP 2002-08-03 00:00:00 Completed [facility] DTAP 2002-08-03 00:00:00 Completed [facility] HIB 4 Dose Schedule 2002-08-03 00:00:00 Completed [facility] Hep B, Adol or Pedi Dosage 2002-08-03 00:00:00 Completed [facility] TDAP 2002-08-03 00:00:00 Completed [facility] DTAP 2002-08-03 00:00:00 Completed Heamophilus Influenza B 2002-08-03 00:00:00 Completed Hep B, Adol or Pedi Dosage 2002-08-03 00:00:00 Completed TDAP 2002-08-03 00:00:00 Completed DTaP, Unspecified Formulation 2002-08-03 00:00:00 Completed DTAP 2002-03-15 00:00:00 Completed [facility] HIB 4 Dose Schedule 2002-03-15 00:00:00 Completed [facility] TDAP 2002-03-15 00:00:00 Completed [facility] IPV 2002-03-15 00:00:00 Completed [facility] DTAP 2002-03-15 00:00:00 Completed [facility] HIB 4 Dose Schedule 2002-03-15 00:00:00 Completed [facility] TDAP 2002-03-15 00:00:00 Completed [facility] IPV 2002-03-15 00:00:00 Completed [facility] DTAP 2002-03-15 00:00:00 Completed [facility] TDAP 2002-03-15 00:00:00 Completed [facility] IPV 2002-03-15 00:00:00 Completed [facility] Heamophilus Influenza B 2002-03-15 00:00:00 Completed [facility] DTAP 2002-03-15 00:00:00 Completed [facility] TDAP 2002-03-15 00:00:00 Completed [facility] IPV 2002-03-15 00:00:00 Completed [facility] Heamophilus Influenza B 2002-03-15 00:00:00 Completed [facility] DTAP 2002-03-15 00:00:00 Completed [facility] HIB 4 Dose Schedule 2002-03-15 00:00:00 Completed [facility] TDAP 2002-03-15 00:00:00 Completed [facility] IPV 2002-03-15 00:00:00 Completed [facility] DTAP 2002-03-15 00:00:00 Completed [facility] TDAP 2002-03-15 00:00:00 Completed [facility] IPV 2002-03-15 00:00:00 Completed [facility] Heamophilus Influenza B 2002-03-15 00:00:00 Completed [facility] DTAP 2002-03-15 00:00:00 Completed [facility] HIB 4 Dose Schedule 2002-03-15 00:00:00 Completed [facility] TDAP 2002-03-15 00:00:00 Completed [facility] IPV 2002-03-15 00:00:00 Completed [facility] DTAP 2002-03-15 00:00:00 Completed [facility] HIB 4 Dose Schedule 2002-03-15 00:00:00 Completed [facility] TDAP 2002-03-15 00:00:00 Completed [facility] IPV 2002-03-15 00:00:00 Completed [facility] DTAP 2002-03-15 00:00:00 Completed [facility] HIB 4 Dose Schedule 2002-03-15 00:00:00 Completed [facility] TDAP 2002-03-15 00:00:00 Completed [facility] IPV 2002-03-15 00:00:00 Completed [facility] DTAP 2002-03-15 00:00:00 Completed [facility] HIB 4 Dose Schedule 2002-03-15 00:00:00 Completed [facility] TDAP 2002-03-15 00:00:00 Completed [facility] IPV 2002-03-15 00:00:00 Completed [facility] DTAP 2002-03-15 00:00:00 Completed [facility] HIB 4 Dose Schedule 2002-03-15 00:00:00 Completed [facility] TDAP 2002-03-15 00:00:00 Completed [facility] IPV 2002-03-15 00:00:00 Completed [facility] DTAP 2002-03-15 00:00:00 Completed [facility] HIB 4 Dose Schedule 2002-03-15 00:00:00 Completed [facility] TDAP 2002-03-15 00:00:00 Completed [facility] IPV 2002-03-15 00:00:00 Completed [facility] DTAP 2002-03-15 00:00:00 Completed [facility] HIB 4 Dose Schedule 2002-03-15 00:00:00 Completed [facility] TDAP 2002-03-15 00:00:00 Completed [facility] IPV 2002-03-15 00:00:00 Completed [facility] DTAP 2002-03-15 00:00:00 Completed [facility] HIB 4 Dose Schedule 2002-03-15 00:00:00 Completed [facility] TDAP 2002-03-15 00:00:00 Completed [facility] IPV 2002-03-15 00:00:00 Completed [facility] DTAP 2002-03-15 00:00:00 Completed Heamophilus Influenza B 2002-03-15 00:00:00 Completed TDAP 2002-03-15 00:00:00 Completed IPV 2002-03-15 00:00:00 Completed DTaP, Unspecified Formulation 2002-03-15 00:00:00 Completed DTAP 2001 00:00:00 Completed [facility] HIB 4 Dose Schedule 2001 00:00:00 Completed [facility] TDAP 2001 00:00:00 Completed [facility] IPV 2001 00:00:00 Completed [facility] DTAP 2001 00:00:00 Completed [facility] HIB 4 Dose Schedule 2001 00:00:00 Completed [facility] TDAP 2001 00:00:00 Completed [facility] IPV 2001 00:00:00 Completed [facility] DTAP 2001 00:00:00 Completed [facility] TDAP 2001 00:00:00 Completed [facility] IPV 2001 00:00:00 Completed [facility] Heamophilus Influenza B 2001 00:00:00 Completed [facility] DTAP 2001 00:00:00 Completed [facility] TDAP 2001 00:00:00 Completed [facility] IPV 2001 00:00:00 Completed [facility] Heamophilus Influenza B 2001 00:00:00 Completed [facility] DTAP 2001 00:00:00 Completed [facility] HIB 4 Dose Schedule 2001 00:00:00 Completed [facility] TDAP 2001 00:00:00 Completed [facility] IPV 2001 00:00:00 Completed [facility] DTAP 2001 00:00:00 Completed [facility] TDAP 2001 00:00:00 Completed [facility] IPV 2001 00:00:00 Completed [facility] Heamophilus Influenza B 2001 00:00:00 Completed [facility] DTAP 2001 00:00:00 Completed [facility] [facility] HIB 4 Dose Schedule 2001 00:00:00 Completed [facility] TDAP 2001 00:00:00 Completed [facility] IPV 2001 00:00:00 Completed [facility] DTAP 2001 00:00:00 Completed [facility] HIB 4 Dose Schedule 2001 00:00:00 Completed [facility] TDAP 2001 00:00:00 Completed [facility] IPV 2001 00:00:00 Completed [facility] DTAP 2001 00:00:00 Completed [facility] HIB 4 Dose Schedule 2001 00:00:00 Completed [facility] TDAP 2001 00:00:00 Completed [facility] IPV 2001 00:00:00 Completed [facility] DTAP 2001 00:00:00 Completed [facility] HIB 4 Dose Schedule 2001 00:00:00 Completed [facility] TDAP 2001 00:00:00 Completed [facility] IPV 2001 00:00:00 Completed [facility] DTAP 2001 00:00:00 Completed [facility] HIB 4 Dose Schedule 2001 00:00:00 Completed [facility] TDAP 2001 00:00:00 Completed [facility] IPV 2001 00:00:00 Completed [facility] DTAP 2001 00:00:00 Completed [facility] HIB 4 Dose Schedule 2001 00:00:00 Completed [facility] TDAP 2001 00:00:00 Completed [facility] IPV 2001 00:00:00 Completed [facility] DTAP 2001 00:00:00 Completed [facility] HIB 4 Dose Schedule 2001 00:00:00 Completed [facility] TDAP 2001 00:00:00 Completed [facility] IPV 2001 00:00:00 Completed [facility] DTAP 2001 00:00:00 Completed [facility] HIB 4 Dose Schedule 2001 00:00:00 Completed [facility] TDAP 2001 00:00:00 Completed [facility] IPV 2001 00:00:00 Completed [facility] DTAP 2001 00:00:00 Completed [facility] Heamophilus Influenza B 2001 00:00:00 Completed TDAP 2001 00:00:00 Completed IPV 2001 00:00:00 Completed DTaP, Unspecified Formulation 2001 00:00:00 Completed Hep B, Adol or Pedi Dosage 2001 00:00:00 Completed [facility] Hep B, Adol or Pedi Dosage 2001 00:00:00 Completed [facility] Hep B, Adol or Pedi Dosage 2001 00:00:00 Completed [facility] Hep B, Adol or Pedi Dosage 2001 00:00:00 Completed [facility] Hep B, Adol or Pedi Dosage 2001 00:00:00 Completed [facility] Hep B, Adol or Pedi Dosage 2001 00:00:00 Completed [facility] Hep B, Adol or Pedi Dosage 2001 00:00:00 Completed [facility] Hep B, Adol or Pedi Dosage 2001 00:00:00 Completed [facility] Hep B, Adol or Pedi Dosage 2001 00:00:00 Completed [facility] Hep B, Adol or Pedi Dosage 2001 00:00:00 Completed [facility] Hep B, Adol or Pedi Dosage 2001 00:00:00 Completed [facility] Hep B, Adol or Pedi Dosage 2001 00:00:00 Completed [facility] Hep B, Adol or Pedi Dosage 2001 00:00:00 Completed [facility] Hep B, Adol or Pedi Dosage 2001 00:00:00 Completed [facility] Hep B, Adol or Pedi Dosage 2001 00:00:00 Completed Hep B, Adol or Pedi Dosage 2001 00:00:00 Completed [facility] Hep B, Adol or Pedi Dosage 2001 00:00:00 Completed [facility] Hep B, Adol or Pedi Dosage 2001 00:00:00 Completed [facility] Hep B, Adol or Pedi Dosage 2001 00:00:00 Completed [facility] Hep B, Adol or Pedi Dosage 2001 00:00:00 Completed [facility] Hep B, Adol or Pedi Dosage 2001 00:00:00 Completed [facility] Hep B, Adol or Pedi Dosage 2001 00:00:00 Completed [facility] Hep B, Adol or Pedi Dosage 2001 00:00:00 Completed [facility] Hep B, Adol or Pedi Dosage 2001 00:00:00 Completed [facility] Hep B, Adol or Pedi Dosage 2001 00:00:00 Completed [facility] Hep B, Adol or Pedi Dosage 2001 00:00:00 Completed [facility] Hep B, Adol or Pedi Dosage 2001 00:00:00 Completed [facility] Hep B, Adol or Pedi Dosage 2001 00:00:00 Completed [facility] Hep B, Adol or Pedi Dosage 2001 00:00:00 Completed [facility] Hep B, Adol or Pedi Dosage 2001 00:00:00 Completed Rho (d) Immune Globulin Unknown Completed [facility] Influenza Virus Vaccine Quad .5 mL IM 6+ MO (FLUZONE/FLULAVAL/FL UARIX) Unknown Completed [facility] TDAP (ADACEL) VACCINE Unknown Completed [facility] MMR Unknown Completed [facility] Rho (d) Immune Globulin Unknown Completed [facility] DTAP Unknown Completed [facility] HIB 4 Dose Schedule Unknown Completed [facility] HEPATITIS A Unknown Completed [facility] Hep B, Adol or Pedi Dosage Unknown Completed [facility] HPV Unknown Completed [facility] Influenza Virus Vaccine Unknown Completed [facility] Meningococcal Vaccine Unknown Completed [facility] Varicella (varivax)(chicken pox) Unknown Completed [facility] Influenza Virus Vaccine Quad IM, Preserv and ABX Free 6 MO-64 YRS (FLUCELVAX) Unknown Completed [facility] Influenza Virus Vaccine Nasal Unknown Completed [facility] IPV Unknown Completed [facility] Meningococcal Polysaccharide (groups A, C, Y and W-135) conjugate vaccine (MCV4P) Unknown Completed [facility] Rho (d) Immune Globulin Unknown Completed [facility] Influenza Virus Vaccine Quad .5 mL IM 6+ MO (FLUZONE/FLULAVAL/FL UARIX) Unknown Completed [facility] TDAP (ADACEL) VACCINE Unknown Completed [facility] MMR Unknown Completed [facility] Rho (d) Immune Globulin Unknown Completed [facility] DTAP Unknown Completed [facility] HIB 4 Dose Schedule Unknown Completed [facility] HEPATITIS A Unknown Completed [facility] Hep B, Adol or Pedi Dosage Unknown Completed [facility] HPV Unknown Completed [facility] Influenza Virus Vaccine Unknown Completed [facility] Meningococcal Vaccine Unknown Completed [facility] Varicella (varivax)(chicken pox) Unknown Completed [facility] Influenza Virus Vaccine Quad IM, Preserv and ABX Free 6 MO-64 YRS (FLUCELVAX) Unknown Completed [facility] Influenza Virus Vaccine Nasal Unknown Completed [facility] IPV Unknown Completed [facility] Meningococcal Polysaccharide (groups A, C, Y and W-135) conjugate vaccine (MCV4P) Unknown Completed [facility] Rho (d) Immune Globulin Unknown Completed [facility] Influenza Virus Vaccine Quad .5 mL IM 6+ MO (FLUZONE/FLULAVAL/FL UARIX) Unknown Completed [facility] TDAP (ADACEL) VACCINE Unknown Completed [facility] MMR Unknown Completed [facility] Rho (d) Immune Globulin Unknown Completed [facility] DTAP Unknown Completed [facility] HIB 4 Dose Schedule Unknown Completed [facility] HEPATITIS A Unknown Completed [facility] Hep B, Adol or Pedi Dosage Unknown Completed [facility] HPV Unknown Completed [facility] Influenza Virus Vaccine Unknown Completed [facility] Meningococcal Vaccine Unknown Completed [facility] Varicella (varivax)(chicken pox) Unknown Completed [facility] Influenza Virus Vaccine Quad IM, Preserv and ABX Free 6 MO-64 YRS (FLUCELVAX) Unknown Completed [facility] Influenza Virus Vaccine Nasal Unknown Completed [facility] IPV Unknown Completed [facility] Meningococcal Polysaccharide (groups A, C, Y and W-135) conjugate vaccine (MCV4P) Unknown Completed [facility] Rho (d) Immune Globulin Unknown Completed [facility] Influenza Virus Vaccine Quad .5 mL IM 6+ MO (FLUZONE/FLULAVAL/FL UARIX) Unknown Completed [facility] TDAP (ADACEL) VACCINE Unknown Completed [facility] MMR Unknown Completed [facility] Rho (d) Immune Globulin Unknown Completed [facility] DTAP Unknown Completed [facility] HIB 4 Dose Schedule Unknown Completed [facility] HEPATITIS A Unknown Completed [facility] Hep B, Adol or Pedi Dosage Unknown Completed [facility] HPV Unknown Completed [facility] Influenza Virus Vaccine Unknown Completed [facility] Meningococcal Vaccine Unknown Completed [facility] Varicella (varivax)(chicken pox) Unknown Completed [facility] Influenza Virus Vaccine Quad IM, Preserv and ABX Free 6 MO-64 YRS (FLUCELVAX) Unknown Completed [facility] Influenza Virus Vaccine Nasal Unknown Completed [facility] IPV Unknown Completed [facility] Meningococcal Polysaccharide (groups A, C, Y and W-135) conjugate vaccine (MCV4P) Unknown Completed [facility] Rho (d) Immune Globulin Unknown Completed [facility] Influenza Virus Vaccine Quad .5 mL IM 6+ MO (FLUZONE/FLULAVAL/FL UARIX) Unknown Completed [facility] TDAP (ADACEL) VACCINE Unknown Completed [facility] MMR Unknown Completed [facility] Rho (d) Immune Globulin Unknown Completed [facility] DTAP Unknown Completed [facility] HIB 4 Dose Schedule Unknown Completed [facility] HEPATITIS A Unknown Completed [facility] Hep B, Adol or Pedi Dosage Unknown Completed [facility] HPV Unknown Completed [facility] Influenza Virus Vaccine Unknown Completed [facility] Meningococcal Vaccine Unknown Completed [facility] Varicella (varivax)(chicken pox) Unknown Completed [facility] Influenza Virus Vaccine Quad IM, Preserv and ABX Free 6 MO-64 YRS (FLUCELVAX) Unknown Completed [facility] Influenza Virus Vaccine Nasal Unknown Completed [facility] IPV Unknown Completed [facility] Meningococcal Polysaccharide (groups A, C, Y and W-135) conjugate vaccine (MCV4P) Unknown Completed [facility] Rho (d) Immune Globulin Unknown Completed [facility] Influenza Virus Vaccine Quad .5 mL IM 6+ MO (FLUZONE/FLULAVAL/FL UARIX) Unknown Completed [facility] TDAP (ADACEL) VACCINE Unknown Completed [facility] MMR Unknown Completed [facility] Rho (d) Immune Globulin Unknown Completed [facility] DTAP Unknown Completed [facility] HIB 4 Dose Schedule Unknown Completed [facility] HEPATITIS A Unknown Completed [facility] Hep B, Adol or Pedi Dosage Unknown Completed [facility] HPV Unknown Completed [facility] Influenza Virus Vaccine Unknown Completed [facility] Meningococcal Vaccine Unknown Completed [facility] Varicella (varivax)(chicken pox) Unknown Completed [facility] Influenza Virus Vaccine Quad IM, Preserv and ABX Free 6 MO-64 YRS (FLUCELVAX) Unknown Completed [facility] Influenza Virus Vaccine Nasal Unknown Completed [facility] IPV Unknown Completed [facility] Meningococcal Polysaccharide (groups A, C, Y and W-135) conjugate vaccine (MCV4P) Unknown Completed [facility] Rho (d) Immune Globulin Unknown Completed [facility] Influenza Virus Vaccine Quad .5 mL IM 6+ MO (FLUZONE/FLULAVAL/FL UARIX) Unknown Completed [facility] TDAP (ADACEL) VACCINE Unknown Completed [facility] MMR Unknown Completed [facility] Rho (d) Immune Globulin Unknown Completed [facility] DTAP Unknown Completed [facility] HIB 4 Dose Schedule Unknown Completed [facility] HEPATITIS A Unknown Completed [facility] Hep B, Adol or Pedi Dosage Unknown Completed [facility] HPV Unknown Completed [facility] Influenza Virus Vaccine Unknown Completed [facility] Meningococcal Vaccine Unknown Completed [facility] Varicella (varivax)(chicken pox) Unknown Completed [facility] Influenza Virus Vaccine Quad IM, Preserv and ABX Free 6 MO-64 YRS (FLUCELVAX) Unknown Completed [facility] Influenza Virus Vaccine Nasal Unknown Completed [facility] IPV Unknown Completed [facility] Meningococcal Polysaccharide (groups A, C, Y and W-135) conjugate vaccine (MCV4P) Unknown Completed [facility] Rho (d) Immune Globulin Unknown Completed [facility] Influenza Virus Vaccine Quad .5 mL IM 6+ MO (FLUZONE/FLULAVAL/FL UARIX) Unknown Completed [facility] TDAP (ADACEL) VACCINE Unknown Completed [facility] MMR Unknown Completed [facility] Rho (d) Immune Globulin Unknown Completed [facility] DTAP Unknown Completed [facility] HIB 4 Dose Schedule Unknown Completed [facility] HEPATITIS A Unknown Completed [facility] Hep B, Adol or Pedi Dosage Unknown Completed [facility] HPV Unknown Completed [facility] Influenza Virus Vaccine Unknown Completed [facility] Meningococcal Vaccine Unknown Completed [facility] Varicella (varivax)(chicken pox) Unknown Completed [facility] Influenza Virus Vaccine Quad IM, Preserv and ABX Free 6 MO-64 YRS (FLUCELVAX) Unknown Completed [facility] Influenza Virus Vaccine Nasal Unknown Completed [facility] IPV Unknown Completed [facility] Meningococcal Polysaccharide (groups A, C, Y and W-135) conjugate vaccine (MCV4P) Unknown Completed [facility] Rho (d) Immune Globulin Unknown Completed [facility] Influenza Virus Vaccine Quad .5 mL IM 6+ MO (FLUZONE/FLULAVAL/FL UARIX) Unknown Completed [facility] TDAP (ADACEL) VACCINE Unknown Completed [facility] MMR Unknown Completed [facility] Rho (d) Immune Globulin Unknown Completed [facility] DTAP Unknown Completed [facility] HIB 4 Dose Schedule Unknown Completed [facility] HEPATITIS A Unknown Completed [facility] Hep B, Adol or Pedi Dosage Unknown Completed [facility] HPV Unknown Completed [facility] Influenza Virus Vaccine Unknown Completed [facility] Meningococcal Vaccine Unknown Completed [facility] Varicella (varivax)(chicken pox) Unknown Completed [facility] Influenza Virus Vaccine Quad IM, Preserv and ABX Free 6 MO-64 YRS (FLUCELVAX) Unknown Completed [facility] Influenza Virus Vaccine Nasal Unknown Completed [facility] IPV Unknown Completed [facility] Meningococcal Polysaccharide (groups A, C, Y and W-135) conjugate vaccine (MCV4P) Unknown Completed [facility] Rho (d) Immune Globulin Unknown Completed [facility] Meningococcal Vaccine Unknown Completed [facility] Meningococcal Polysaccharide (groups A, C, Y and W-135) conjugate vaccine (MCV4P) Unknown Completed [facility] Influenza Virus Vaccine Quad Nasal (Flumist) Unknown Completed [facility] Flu Whole Virus Unknown Completed [facility] Rho (d) Immune Globulin Unknown Completed [facility] Influenza Virus Vaccine Quad .5 mL IM 6+ MO (FLUZONE/FLULAVAL/FL UARIX) Unknown Completed [facility] TDAP (ADACEL) VACCINE Unknown Completed [facility] MMR Unknown Completed [facility] DTAP Unknown Completed [facility] HIB 4 Dose Schedule Unknown Completed [facility] HEPATITIS A Unknown Completed [facility] Hep B, Adol or Pedi Dosage Unknown Completed [facility] HPV Unknown Completed [facility] Influenza Virus Vaccine Unknown Completed [facility] Varicella (varivax)(chicken pox) Unknown Completed [facility] Influenza Virus Vaccine Quad IM, Preserv and ABX Free 6 MO-64 YRS (FLUCELVAX) Unknown Completed [facility] Influenza Virus Vaccine Nasal Unknown Completed [facility] IPV Unknown Completed [facility] Influenza, Trivalent, Adjuvanted Unknown Completed [facility] DTaP, Unspecified Formulation Unknown Completed [facility] Flu Trivalent Unknown Completed [facility] Rho (d) Immune Globulin Unknown Completed [facility] Influenza Virus Vaccine Quad .5 mL IM 6+ MO (FLUZONE/FLULAVAL/FL UARIX) Unknown Completed [facility] TDAP (ADACEL) VACCINE Unknown Completed [facility] MMR Unknown Completed [facility] Rho (d) Immune Globulin Unknown Completed [facility] DTAP Unknown Completed [facility] HIB 4 Dose Schedule Unknown Completed [facility] HEPATITIS A Unknown Completed [facility] Hep B, Adol or Pedi Dosage Unknown Completed [facility] HPV Unknown Completed [facility] Influenza Virus Vaccine Unknown Completed [facility] Meningococcal Vaccine Unknown Completed [facility] Varicella (varivax)(chicken pox) Unknown Completed [facility] Influenza Virus Vaccine Quad IM, Preserv and ABX Free 6 MO-64 YRS (FLUCELVAX) Unknown Completed [facility] Influenza Virus Vaccine Nasal Unknown Completed [facility] IPV Unknown Completed [facility] Meningococcal Polysaccharide (groups A, C, Y and W-135) conjugate vaccine (MCV4P) Unknown Completed [facility] Influenza, Trivalent, Adjuvanted Unknown Completed [facility] DTaP, Unspecified Formulation Unknown Completed [facility] Influenza Virus Vaccine Quad Nasal (Flumist) Unknown Completed [facility] Flu Trivalent Unknown Completed [facility] Flu Whole Virus Unknown Completed [facility] Rho (d) Immune Globulin Unknown Completed [facility] Influenza Virus Vaccine Quad .5 mL IM 6+ MO (FLUZONE/FLULAVAL/FL UARIX) Unknown Completed [facility] TDAP (ADACEL) VACCINE Unknown Completed [facility] MMR Unknown Completed [facility] [facility] Rho (d) Immune Globulin Unknown Completed [facility] DTAP Unknown Completed [facility] HIB 4 Dose Schedule Unknown Completed [facility] HEPATITIS A Unknown Completed [facility] Hep B, Adol or Pedi Dosage Unknown Completed [facility] HPV Unknown Completed [facility] Influenza Virus Vaccine Unknown Completed [facility] Meningococcal Vaccine Unknown Completed [facility] Varicella (varivax)(chicken pox) Unknown Completed [facility] Influenza Virus Vaccine Quad IM, Preserv and ABX Free 6 MO-64 YRS (FLUCELVAX) Unknown Completed [facility] Influenza Virus Vaccine Nasal Unknown Completed [facility] IPV Unknown Completed [facility] Meningococcal Polysaccharide (groups A, C, Y and W-135) conjugate vaccine (MCV4P) Unknown Completed [facility] Influenza, Trivalent, Adjuvanted Unknown Completed [facility] DTaP, Unspecified Formulation Unknown Completed [facility] Influenza Virus Vaccine Quad Nasal (Flumist) Unknown Completed [facility] Flu Trivalent [facility] Virus [facility] Com[facility] Rho (d) Immune Globulin Unknown Completed [facility] Influenza Virus Vaccine Quad .5 mL IM 6+ MO (FLUZONE/FLULAVAL/FL UARIX) Unknown Completed [facility] TDAP (ADACEL) VACCINE Unknown Completed [facility] MMR Unknown Completed [facility] Rho (d) Immune Globulin Unknown Completed [facility] DTAP Unknown Completed [facility] HIB 4 Dose Schedule Unknown Completed [facility] HEPATITIS A Unknown Com[facility] Hep B, Adol or Pedi Dosage Unknown Completed [facility] HPV Unknown Completed [facility] Influenza Virus Vaccine Unknown Completed [facility] Meningococcal Vaccine Unknown Completed [facility] Varicella (varivax)(chicken pox) Unknown Completed [facility] Influenza Virus Vaccine Quad IM, Preserv and ABX Free 6 MO-64 YRS (FLUCELVAX) Unknown Completed [facility] Influenza Virus Vaccine Nasal Unknown Completed [facility] IPV Unknown Completed [facility] Meningococcal Polysaccharide (groups A, C, Y and W-135) conjugate vaccine (MCV4P) Unknown Completed [facility] Influenza, Trivalent, Adjuvanted Unknown Completed [facility] DTaP, Unspecified Formulation Unknown Completed [facility] Influenza Virus Vaccine Quad Nasal (Flumist) Unknown Completed [facility] Flu Trivalent Unknown Completed [facility] Flu Whole Virus Unknown Completed [facility] Rho (d) Immune Globulin Unknown Completed [facility] Influenza Virus Vaccine Quad .5 mL IM 6+ MO (FLUZONE/FLULAVAL/FL UARIX) Unknown Completed [facility] TDAP (ADACEL) VACCINE Unknown Completed [facility] MMR Unknown Completed [facility] Rho (d) Immune Globulin Unknown Completed [facility] DTAP Unknown Completed [facility] HIB 4 Dose Schedule Unknown Completed [facility] HEPATITIS A Unknown Completed [facility] Hep B, Adol or Pedi Dosage Unknown Completed [facility] HPV Unknown Completed [facility] Influenza Virus Vaccine Unknown Completed [facility] Meningococcal Vaccine Unknown Completed [facility] Varicella (varivax)(chicken pox) Unknown Completed [facility] Influenza Virus Vaccine Quad IM, Preserv and ABX Free 6 MO-64 YRS (FLUCELVAX) Unknown Completed [facility] Influenza Virus Vaccine Nasal Unknown Completed [facility] IPV Unknown Completed [facility] Meningococcal Polysaccharide (groups A, C, Y and W-135) conjugate vaccine (MCV4P) Unknown Completed [facility] Influenza, Trivalent, Adjuvanted Unknown Completed [facility] DTaP, Unspecified Formulation Unknown Completed [facility] Influenza Virus Vaccine Quad Nasal (Flumist) Unknown Completed [facility] Flu Trivalent Unknown [facility] Flu [facility] Virus Unknown Completed [facility] Rho (d) Immune Globulin Unknown Completed [facility] Influenza Virus Vaccine Quad .5 mL IM 6+ MO (FLUZONE/FLULAVAL/FL UARIX) Unknown Completed [facility] TDAP (ADACEL) VACCINE Unknown Completed [facility] MMR Unknown Completed [facility] Rho (d) Immune Globulin Unknown Completed [facility] DTAP Unknown Completed [facility] Heamophilus Influenza B Unknown Completed [facility] HEPATITIS A Unknown Completed [facility] Hep B, Adol or Pedi Dosage Unknown Completed [facility] HPV Unknown Completed [facility] Influenza Virus Vaccine Unknown Completed [facility] Meningococcal Vaccine Unknown Completed [facility] Varicella (varivax)(chicken pox) Unknown Completed [facility] Influenza Virus Vaccine Quad IM, Preserv and ABX Free 6 MO-64 YRS (FLUCELVAX) Unknown Completed [facility] Influenza Virus Vaccine Nasal Unknown Completed [facility] IPV Unknown Completed [facility] Meningococcal Polysaccharide (groups A, C, Y and W-135) conjugate vaccine (MCV4P) Unknown Completed [facility] Influenza, Trivalent, Adjuvanted Unknown Completed [facility] DTaP, Unspecified Formulation Unknown Completed [facility] Influenza Virus Vaccine Quad Nasal (Flumist) Unknown Completed [facility] Flu Trivalent Unknown [facility] Flu Whole Virus Unknown Completed [facility] Rho (d) Immune Globulin Unknown Completed [facility] Influenza Virus Vaccine Quad .5 mL IM 6+ MO (FLUZONE/FLULAVAL/FL UARIX) Unknown Completed [facility] TDAP Unknown Completed [facility] MMR Unknown Completed [facility] Rho (d) Immune Globulin Unknown Completed [facility] DTAP Unknown Completed [facility] Heamophilus Influenza B Unknown Completed [facility] HEPATITIS A Unknown Completed [facility] Hep B, Adol or Pedi Dosage Unknown Completed [facility] HPV Unknown Completed [facility] Influenza Virus Vaccine Unknown Completed [facility] Meningococcal Vaccine Unknown Completed [facility] Varicella (varivax)(chicken pox) Unknown Completed [facility] Influenza Virus Vaccine Quad IM, Preserv and ABX Free 6 MO-64 YRS (FLUCELVAX) Unknown Completed [facility] Influenza Virus Vaccine Nasal Unknown Completed [facility] IPV Unknown Completed [facility] Meningococcal Polysaccharide (groups A, C, Y and W-135) conjugate vaccine (MCV4P) Unknown Completed [facility] Influenza, adjuvanted, trivalent, PF (FLUAD) Unknown Completed [facility] DTaP, Unspecified Formulation Unknown Completed [facility] Influenza Virus Vaccine Quad Nasal (Flumist) Unknown Completed [facility] Influenza, split virus, trivalent, PF (AFLURIA/FLUARIX/FLU LAVAL/FLUZONE) Unknown Completed [facility] Flu Whole Virus Unknown Completed [facility] Vital Signs Vital Name Observation Time Observation Value Comments S ource Systolic blood pressure 2024-08-02 13:23:00 111 mm[Hg] [facility] Diastolic blood pressure 2024-08-02 13:23:00 76 mm[Hg] [facility] Heart rate 2024-08-02 13:23:00 93 /min [facility] Body temperature 2024-08-02 13:23:00 36.83 Melania [facility] Respiratory rate 2024-08-02 13:23:00 18 /min [facility] Body height 2024-08-02 13:23:00 [facility] weight 2024-08-02 13:23:00 [facility]603 [facility] BMI 2024-08-02 13:23:00 24.03 kg/m2 [facility] ealt Systolic blood pressure 2024-07-28 13:10:00 119 mm[Hg] [facility] Diastolic blood pressure 2024-07-28 13:10:00 80 mm[Hg] [facility] Heart rate 2024-07-28 13:10:00 110 /min [facility] Respiratory rate 2024-07-28 13:10:00 18 /min [facility] Body height 2024-07-28 13:10:00 157.5 cm [facility] Body weight 2024-07-28 13:10:00 59.875 kg [facility] BMI 2024-07-28 13:10:00 24.14 kg/m2 [facility] Systolic blood pressure 2024-04-30 14:20:00 102 mm[Hg] [facility] Diastolic blood pressure 2024-04-30 14:20:00 72 mm[Hg] [facility] Heart rate 2024-04-30 14:20:00 94 /min [facility] Respiratory rate 2024-04-30 14:20:00 18 /min [facility] Body height 2024-04-30 14:20:00 157.5 cm [facility] Body weight 2024-04-30 14:20:00 59.421 kg [facility] BMI 2024-04-30 14:20:00 23.96 kg/m2 [facility] Systolic blood pressure 2024-04-14 20:00:00 115 mm[Hg] [facility] Diastolic blood pressure 2024-04-14 20:00:00 86 mm[Hg] [facility] Heart rate 2024-04-14 20:00:00 100 /min [facility] Body temperature 2024-04-14 20:00:00 36.72 Melania [facility] Respiratory rate 2024-04-14 20:00:00 14 /min [facility] Body height 2024-04-14 20:00:00 157.5 cm [facility] Body weight 2024-04-14 20:00:00 58.968 kg [facility] BMI 2024-04-14 20:00:00 23.78 kg/m2 [facility] Oxygen saturation in Arterial blood by Pulse oximetry 2024-04-14 20:00:00 100 /min [facility] Systolic blood pressure 2024-04-11 19:00:00 123 mm[Hg] [facility] Diastolic blood pressure 2024-04-11 19:00:00 77 mm[Hg] [facility] Heart rate 2024-04-11 19:00:00 88 /min [facility] Body temperature 2024-04-11 19:00:00 37.22 Melania [facility] Respiratory rate 2024-04-11 19:00:00 18 /min [facility] Oxygen saturation in Arterial blood by Pulse oximetry 2024-04-11 19:00:00 99 /min [facility] Body height 2024-04-11 17:36:00 157.5 cm [facility] Body weight 2024-04-11 17:36:00 58.968 kg [facility] BMI 2024-04-11 17:36:00 23.78 kg/m2 [facility] Systolic blood pressure 2024-02-06 13:57:00 115 mm[Hg] [facility] Diastolic blood pressure 2024-02-06 13:57:00 77 mm[Hg] [facility] Heart rate 2024-02-06 13:57:00 115 /min [facility] Body temperature 2024-02-06 13:57:00 36.72 Melania [facility] Respiratory rate 2024-02-06 13:57:00 16 /min [facility] Body height 2024-02-06 13:57:00 157.5 cm [facility] Body weight 2024-02-06 13:57:00 60.782 kg [facility] BMI 2024-02-06 13:57:00 24.51 kg/m2 [facility] Respiratory rate 2023-11-13 19:04:00 18 /min [facility] Body height 2023-11-13 19:04:00 154.9 cm [facility] Body weight 2023-11-13 19:04:00 56.79 kg [facility] BMI 2023-11-13 19:04:00 23.66 kg/m2 [facility] Systolic blood pressure 2023-11-13 19:04:00 124 mm[Hg] [facility] Diastolic blood pressure 2023-11-13 19:04:00 73 mm[Hg] [facility] Heart rate 2023-11-13 19:04:00 94 /min [facility] Body temperature 2023-11-13 19:04:00 36.78 Melania [facility] Systolic blood pressure 2023-10-14 18:30:00 96 mm[Hg] [facility] Diastolic blood pressure 2023-10-14 18:30:00 66 mm[Hg] [facility] Heart rate 2023-10-14 18:30:00 86 /min [facility] Respiratory rate 2023-10-14 18:30:00 18 /min [facility] Oxygen saturation in Arterial blood by Pulse oximetry 2023-10-14 18:30:00 99 /min [facility] Body temperature 2023-10-14 13:13:00 36.72 Melania [facility] Body height 2023-10-13 23:46:00 154.9 cm [facility] Body weight 2023-10-13 23:46:00 55.792 kg [facility] BMI 2023-10-13 23:46:00 23.24 kg/m2 [facility] Systolic blood pressure 2023-10-11 00:55:00 116 mm[Hg] [facility] Diastolic blood pressure 2023-10-11 00:55:00 79 mm[Hg] [facility] Heart rate 2023-10-11 00:55:00 95 /min [facility] Respiratory rate 2023-10-11 00:55:00 16 /min [facility] Oxygen saturation in Arterial blood by Pulse oximetry 2023-10-11 00:55:00 99 /min [facility] Body temperature 2023-10-11 00:25:00 36.33 Melania [facility] Body height 2023-10-10 19:58:00 154.9 cm [facility] Body weight 2023-10-10 19:58:00 55.792 kg [facility] BMI 2023-10-10 19:58:00 23.24 kg/m2 [facility] Systolic blood pressure 2023-10-10 19:58:00 107 mm[Hg] [facility] Diastolic blood pressure 2023-10-10 19:58:00 68 mm[Hg] [facility] Heart rate 2023-10-10 19:58:00 97 /min [facility] Body temperature 2023-10-10 19:58:00 36.94 Melania [facility] Respiratory rate 2023-10-10 19:58:00 18 /min [facility] Body height 2023-10-10 19:58:00 154.9 cm [facility] Body weight 2023-10-10 19:58:00 55.792 kg [facility] BMI 2023-10-10 19:58:00 23.24 kg/m2 [facility] Oxygen saturation in Arterial blood by Pulse oximetry 2023-10-10 19:58:00 98 /min [facility] Systolic blood pressure 2023-10-08 14:20:00 97 mm[Hg] [facility] Diastolic blood pressure 2023-10-08 14:20:00 61 mm[Hg] [facility] Heart rate 2023-10-08 14:20:00 97 /min [facility] Body temperature 2023-10-08 14:20:00 37 Melania [facility] Respiratory rate 2023-10-08 14:20:00 16 /min [facility] Body height 2023-10-08 14:20:00 154.9 cm [facility] Body weight 2023-10-08 14:20:00 56.427 kg [facility] BMI 2023-10-08 14:20:00 23.51 kg/m2 [facility] Oxygen saturation in Arterial blood by Pulse oximetry 2023-10-08 14:20:00 97 /min [facility] Systolic blood pressure 2023 06:04:00 103 mm[Hg] [facility] Diastolic blood pressure 2023 06:04:00 65 mm[Hg] [facility] Heart rate 2023 06:04:00 95 /min [facility] Respiratory rate 2023 06:04:00 16 /min [facility] Oxygen saturation in Arterial blood by Pulse oximetry 2023 06:04:00 99 /min [facility] Body temperature 2023 03:34:00 36.67 Melania [facility] Body weight 2023 03:34:00 58.968 kg [facility] BMI 2023 03:34:00 23.78 kg/m2 [facility] Systolic blood pressure 2023-08-15 13:02:00 105 mm[Hg] [facility] Diastolic blood pressure 2023-08-15 13:02:00 71 mm[Hg] [facility] Heart rate 2023-08-15 13:02:00 76 /min [facility] Respiratory rate 2023-08-15 13:02:00 18 /min [facility] Body height 2023-08-15 13:02:00 157.5 cm [facility] Body weight 2023-08-15 13:02:00 57.607 kg [facility] BMI 2023-08-15 13:02:00 23.23 kg/m2 [facility] Systolic blood pressure 2023-05-14 20:46:00 108 mm[Hg] [facility] Diastolic blood pressure 2023-05-14 20:46:00 75 mm[Hg] [facility] Heart rate 2023-05-14 20:46:00 102 /min [facility] Body temperature 2023-05-14 20:46:00 36.78 Melania [facility] Respiratory rate 2023-05-14 20:46:00 18 /min [facility] Body height 2023-05-14 20:46:00 157.5 cm [facility] 2023-05-14 20:46:00 60.328 kg [facility] BMI 2023-05-14 20:46:00 24.33 kg/m2 [facility] Systolic blood pressure 2023-02-18 20:19:00 111 mm[Hg] [facility] Diastolic blood pressure 2023-02-18 20:19:00 76 mm[Hg] [facility] Heart rate 2023-02-18 20:19:00 112 /min [facility] Body temperature 2023-02-18 20:19:00 36.78 Melania [facility] Respiratory rate 2023-02-18 20:19:00 18 /min [facility] Body height 2023-02-18 20:19:00 157.5 cm [facility] Body weight 2023-02-18 20:19:00 60.147 kg [facility] BMI 2023-02-18 20:19:00 24.25 kg/m2 [facility] Systolic blood pressure 2022-11-18 20:53:00 100 mm[Hg] [facility] Diastolic blood pressure 2022-11-18 20:53:00 70 mm[Hg] [facility] Heart rate 2022-11-18 20:53:00 97 /min [facility] Body temperature 2022-11-18 20:53:00 37.06 Melania [facility] Respiratory rate 2022-11-18 20:53:00 18 /min [facility] Body height 2022-11-18 20:53:00 157.5 cm [facility] Body weight 2022-11-18 20:53:00 59.421 kg [facility] BMI 2022-11-18 20:53:00 23.96 kg/m2 [facility] Systolic blood pressure 2022-08-26 20:11:00 113 mm[Hg] [facility] Diastolic blood pressure 2022-08-26 20:11:00 80 mm[Hg] [facility] Heart rate 2022-08-26 20:11:00 91 /min [facility] Body temperature 2022-08-26 20:11:00 36.72 Melania [facility] Respiratory rate 2022-08-26 20:11:00 16 /min [facility] Body height 2022-08-26 20:11:00 157.5 cm [facility] Body weight 2022-08-26 20:11:00 57.879 kg [facility] BMI 2022-08-26 20:11:00 23.34 kg/m2 [facility] Systolic blood pressure 2022-07-03 20:26:00 108 mm[Hg] [facility] Diastolic blood pressure 2022-07-03 20:26:00 76 mm[Hg] [facility] Heart rate 2022-07-03 20:26:00 103 /min [facility] Body temperature 2022-07-03 20:25:00 36.89 Melania [facility] Respiratory rate 2022-07-03 20:25:00 16 /min [facility] Body height 2022-07-03 20:25:00 157.5 cm [facility] Body weight 2022-07-03 20:25:00 58.968 kg [facility] BMI 2022-07-03 20:25:00 23.78 kg/m2 [facility] Oxygen saturation in Arterial blood by Pulse oximetry 2022-07-03 20:25:00 98 /min [facility] Height 2020-12-01 10:53:00 154.94 CM Weight 2020-12-01 10:53:00 50.8 KG Procedures Procedure Date / Time Performed Performing Clinician Source RAPID STREP SCREEN FOR GROUP A 2024-04-11 17:46:00 Fide Freitas [facility] POCT TEST 2024-04-11 17:46:00 Fide Freitas [facility] INFLUENZA A/B RSV COVID NAAT 2024-04-11 17:46:00 Fide Freitas [facility] LAB ONLY PAP SMEAR-LIQUID BASED 2023-11-13 19:45:00 Zarina Kennedy [facility] PAP SMEAR-LIQUID BASED-CP 2023-11-13 19:45:00 [facility] HE[facility] SURFACE ANTIGEN 2023-11-13 19:34:00 KennedyZarina Marcus [facility] HCV ANTIBODY 2023-11-13 19:34:00 KennedyZarina Marcus [facility] HIV 1/2 AG-AB WITH REFLEX 2023-11-13 19:34:00 Catie [facility] FLU VACC ([id number]), 6 MO-64 YRS, .5ML, IM, QUAD (FLUCELVAX) 2023-11-13 19:17:34 [facility] GC & CHLAMYDIA AMPLIFIED ASSAY 2023-11-13 19:16:00 [facility] TRICHOMONAS AMPLIFIED ASSAY 2023-11-13 19:16:00 [facility] EXTERNAL PROVIDER RECORDS 2023-10-24 06:01:00 Do ctor Unassigned, [place] [facility] BASIC METABOLIC PANEL (NA, K, CL, CO2, GLUCOSE, BUN, CREATININE, CA) 2023-10-14 10:38:00 Mallorie Alejandra [facility] CBC WITH DIFF 2023-10-14 10:38:00 Mallorie Alejandra [facility] TEST, URINE 2023-10-14 01:42:00 Elliott Priest [facility] URINALYSIS 2023-10-14 01:42:00 Elliott Priest [facility] BASIC METABOLIC PANEL (NA, K, CL, CO2, GLUCOSE, BUN, CREATININE, CA) 2023-10-14 01:41:00 Elliott Priest [facility] CBC WITH DIFF 2023-10-14 01:41:00 Elliott Priest [facility] FL TIME OR (NON-REPORTABLE) 2023-10-11 00:20:00 Mallorie Alejandra [facility] FL TIME OR (NON-REPORTABLE) 2023-10-11 00:20:00 Mallorie Alejandra [facility] URETEROSCOPIC STONE MANIPULATION 2023-10-10 23:21:00 Mallorie Alejandra [facility] DAY SURGERY - [place] 2023-10-10 06:01:00 Doctor Unassigned, [place] [facility] [place] RETROPERITONEAL LIMITED 2023 05:54:30 King Yosvany Keller [facility] POCT TEST 2023 04:05:00 Job Keyes [facility] COMP. METABOLIC PANEL (38279) 2023 04:02:00 Iris Keyes [facility] CBC WITH DIFF 2023 04:02:00 [facility] 04:02:00 [facility]REFUSAL FOR DIAGNOSIS AND TREATMENT 2023 03:26:20 Doctor Unassigned, Stanton [facility] REFERRAL- REQUEST/RESPONSE 2023-06-03 05:01:00 Adalid wyatt Unassigned, Stanton [facility] PATIENT FINANCIAL POLICY 2023-02-18 19:57:32 Doctor Unassigned, Stanton [facility] ASSIGNMENT OF BENEFITS 2022-11-18 20:21:23 Docto r Unassigned, Stanton [facility] Encounters Start Date/Time End Date/Time Encounter Type Admission Type Attending Clinicians Care Facility Care Department Encounter ID Source 2021-09-11 07:20:36 Emergency [facility] [id number] [facility] 2021-09-11 07:18:00 Emergency [facility] [id number] [facility] 2021-09-11 05:25:53 Emergency [facility] [id number] [facility] 2021-09-10 12:34:55 Emergency [facility] [id number] [facility] 2021-09-10 00:32:19 Outpatient X [facility] ERT [id number] [facility] 2021-09-10 00:25:14 Emergency [facility] [id number] [facility] 2021-09-09 03:49:13 Emergency [facility] [id number] [facility] 2021-09-07 12:08:59 Emergency [facility] [id number] [facility] 2021-09-06 14:24:34 Outpatient P [facility] JONI [id number] [facility] 2021-09-06 14:21:12 Outpatient P [facility] JONI [id number] [facility] 2021-09-06 13:39:14 Outpatient P [facility] JONI [id number] [facility] 2021-09-06 13:35:43 Outpatient P [facility] JONI [id number] [facility] 2024-08-31 11:00:00 2024-08-31 11:00:00 Outpatient GERMAN RUELAS [facility] [id number] [facility] 2024-08-31 09:00:00 2024-08-31 09:00:00 Outpatient GERMAN RUELAS [facility] [id number] [facility] 2024-08-31 08:01:36 2024-08-31 08:01:36 Outpatient [facility] [id number] Dirk Milan 2024-08-27 11:30:00 2024-08-27 11:30:00 Outpatient GERMAN RUELAS [facility] [id number] [facility] 2024-07-19 00:00:00 2024-08-21 18:21:39 Patient Secure Msg Doctor Unassigned, Stanton Doctor Unassigned, Stanton [facility] 1.2.840.114 350.1.13.10 4.2.7.2.686 [id number] 134 [id number] [facility] 2024-08-02 08:00:00 2024-08-02 09:37:39 Office Visit Alcira De La Paz [facility] [address] 1..840.114 350.1.13.58 9.2.7.2.686 [id number] [facility] 2024-07-28 08:00:00 2024-07-28 08:18:17 Outpatient R ZARINA KENNEDY VIEN [facility] [id number] [facility] 2024-07-28 08:00:00 2024-07-28 08:18:17 Nurse Visit Nurse, [facility] Zarina Kennedy Nurse, [facility] 1..840.114 350.1.13.10 4.2.7.2.686 [id number] 134 [id number] [facility] 2024-07-27 14:00:00 2024-07-27 14:00:00 Outpatient R NASSAR-MARSHAL S, HINA NASSAR-MARSHAL S, HINA [facility] [id number] [facility] 2024-07-23 15:30:00 2024-07-23 15:30:00 Outpatient R [facility] [id number] [facility] 2024-06-01 13:00:00 2024-06-01 13:00:00 Outpatient TARAS SAEED [facility] [id number] [facility] 2024-05-06 15:16:45 2024-05-06 15:16:45 Outpatient JOSE ANTONIO [facility] [id number] Dirk Nickerson Bjorn 2024-04-30 09:00:00 2024-04-30 09:20:31 Outpatient R ZARINA KENNEDY [facility] [id number] [facility] 2024-04-30 09:00:00 2024-04-30 09:20:31 Nurse Visit Nurse, [facility] Zarina Kennedy [facility] BUILDING 1..840.114 350.1.13.10 4.2.7.2.686 [id number] 134 [id number] [facility] 2024-04-14 18:15:00 2024-04-15 14:23:00 Inpatient E MICHELE BAUTISTA [facility] [id number] [address] [place] [address] 2024-04-14 15:01:00 2024-04-14 16:04:00 Emergency X VIVIANA DOWNEY [facility] ERT [id number] [facility] 2024-04-14 15:01:00 2024-04-14 16:04:00 Emergency Viviana Downey G [facility] 1.2.840.114 350.1.13.10 4.2.7.2.686 [id number] [facility] 2024-04-11 12:37:00 2024-04-11 14:17:00 Emergency X FIDE FREITAS [facility] ERT [id number] [facility] 2024-04-11 12:37:00 2024-04-11 14:17:00 Emergency HarFide whitt A [facility] 1.2.840.114 350.1.13.10 4.2.7.2.686 [id number] [facility] 2024-03-18 11:50:22 2024-03-18 11:50:22 Outpatient [facility] [id number] Dirk Milan 2024-03-09 11:23:14 2024-03-09 11:23:14 Outpatient [facility] [id number] Dirk Krishan Bjorn 2024-03-05 13:41:30 2024-03-05 13:41:30 Outpatient [facility] [id number] Dirk Krishan Bjorn 2024-02-17 13:31:42 2024-02-17 13:31:42 Outpatient [facility] [id number] Dirk Krishan Bjorn 2024-02-10 13:54:58 2024-02-10 13:54:58 Outpatient [facility] [id number] Dirk Krishan Bjorn 2024-02-06 10:35:33 2024-02-06 10:35:33 Outpatient [facility] [id number] Dirk Milan 2024-02-06 10:30:00 2024-02-06 10:30:00 Outpatient R [facility] [id number] [facility] 2024-02-06 09:00:00 2024-02-06 09:00:00 Nurse Visit Nurse, [facility] Zarina Kennedy [facility] BUILDING 1.2.840.114 350.1.13.10 4.2.7.2.686 [id number] [facility] 2024-02-06 09:00:00 2024-02-06 08:58:15 Outpatient R ZARINA KENNEDY [facility] [id number] [facility] 2024-02-03 13:57:01 2024-02-03 13:57:01 Outpatient [facility] [id number] Dirk Milan 2024-01-01 08:17:49 2024-01-01 08:17:49 Outpatient [facility] [id number] Dirk Milan 2023-12-31 16:57:01 2023-12-31 16:57:01 Outpatient [facility] [id number] Dirk Milan 2023-12-25 11:58:12 2023-12-25 11:58:12 Outpatient [facility] [id number] Dirk Milan 2023-11-13 13:45:00 2023-11-13 14:09:01 Business And Services Instructor Visit 2, [facility] Zarina Kennedy [facility] BUILDING 1.2.840.114 350.1.13.10 4.2.7.2.686 [id number] [facility] 2023-11-13 13:15:00 2023-11-13 13:26:31 Outpatient R ZARINA KENNEDY [facility] [id number] [facility] 2023-11-13 13:15:00 2023-11-13 13:26:31 Office Visit Zarina Kennedy [facility] BUILDING 1.2.840.114 350.1.13.10 4.2.7.2.686 [id number] [facility] 2023-10-24 00:00:00 2023-10-24 00:00:00 Orders Only Doctor Unassigned, Stanton [facility] 1.2.840.114 350.1.13.10 4.2.7.2.686 [id number] [facility] 2023-10-13 17:48:00 2023-10-14 16:08:00 Outpatient X MARSHA [facility] [id number] [facility] 2023-10-13 17:48:00 2023-10-14 16:08:00 Emergency [facility] 1.2.840.114 350.1.13.10 4.2.7.2.686 [id number] [facility] 2023-10-13 00:00:00 2023-10-13 00:00:00 Telephone [facility] MEDICAL OFFICE BUILDING 1.2840.114 350.1.13.10 4.2.7.2.686 [id number] [facility] 2023-10-10 13:39:00 2023-10-10 19:08:00 Outpatient R JUSTYN [facility] SUU [id number] [facility] 2023-10-10 13:39:00 2023-10-10 19:08:00 Hospital [facility] 1.2.840.114 350.1.13.10 4.2.7.2.686 [id number] [facility] 2023-10-10 15:01:00 2023-10-10 16:22:00 Surgery [facility] 1.2.840.114 350.1.13.10 4.2.7.2.686 [id number] [facility] 2023-10-10 00:00:00 2023-10-10 00:00:00 Orders Only Doctor Unassigned, Stanton [facility] 1.2.840.114 350.1.13.10 4.2.7.2.686 [id number] [facility] 2023-10-09 09:26:26 2023-10-09 09:26:26 Outpatient [facility] [id number] Dirk Milan 2023-10-08 08:30:00 2023-10-08 15:45:08 Outpatient R AILIN TANG [facility] [id number] [facility] 2023-10-08 08:30:00 2023-10-08 15:45:08 [facility] 1.2.840.114 350.1.13.10 4.2.7.2.686 [id number] [facility] 2023-10-05 21:35:00 2023 01:06:00 Emergency X DAVY SOTELO [facility] [id number] [facility] 2023-10-05 21:35:00 2023 01:06:00 Emergency Iris Keyes [facility] 1.2.840.114 350.1.13.10 4.2.7.2.686 [id number] [facility] 2023-10-04 14:17:02 2023-10-04 14:17:02 Outpatient [facility] [id number] Dirk Nickerson Bjorn 2023-09-17 16:48:16 2023-09-17 16:48:16 Outpatient [facility] [id number] Dirk Milan 2023-09-11 09:11:57 2023-09-11 09:11:57 Outpatient [facility] [id number] Dirk Milan 2023-08-26 15:44:47 2023-08-26 15:44:47 Outpatient [facility] [id number] Dirk Milan 2023-08-15 08:00:00 2023-08-15 08:15:00 Nurse Visit Nurse, [facility] Brent Zarina Marcus [facility] 1..840.114 350.1.13.10 4.2.7.2.686 [id number] [facility] 2023-08-15 08:00:00 2023-08-15 08:00:00 Outpatient R ZARINA KENNEDY [facility] [id number] [facility] 2023-08-14 08:15:00 2023-08-14 08:15:00 Outpatient BRIT HOGAN [facility] [id number] [facility] 2023-07-31 09:30:00 2023-07-31 09:30:00 Outpatient IDA ARREOLA [facility] [id number] [facility] 2023-06-26 14:44:34 2023-06-26 14:44:34 Outpatient [facility] [id number] Dirk Milan 2023-06-11 10:54:47 2023-06-11 10:54:47 Outpatient [facility] [id number] Dirk Milan 2023-06-03 00:00:00 2023-06-03 00:00:00 Orders Only Doctor Unassigned, Stanton [facility] .840.114 350.1.13.10 4.2.7.2.686 [id number] [facility] 2023-05-21 09:11:27 2023-05-21 09:11:27 Outpatient [facility] [id number] Dirk Milan 2023-05-14 15:30:00 2023-05-14 15:45:47 Nurse Visit Nurse, [facility] Norma Partida [facility] BUILDING 1..840.114 350.1.13.10 4.2.7.2.686 [id number] [facility] 2023-05-14 15:30:00 2023-05-14 15:30:00 Outpatient NORMA RODRIGUEZ [facility] [id number] [facility] 2023-04-30 14:56:01 2023-04-30 14:56:01 Outpatient [facility] [id number] Dirk Milan 2023-04-21 16:15:00 2023-04-21 16:15:00 Outpatient R NASSAR-MARSHAL S, HINA NASSAR-MARSHAL S, HINA [facility] [id number] [facility] 2023-03-21 14:00:00 2023-03-21 14:00:00 [facility] [id number] [facility] 2023-03-18 15:33:41 2023-03-18 15:33:41 Outpatient [facility] [id number] Dirk Milan 2023-02-28 00:00:00 2023-02-28 00:00:00 Telephone Zarina Kennedy [facility] 1.2.840.114 350.1.13.10 4.2.7.2.686 [id number] [facility] 2023-02-18 15:30:00 2023-02-18 15:30:00 Nurse Visit Nurse, [facility] Wendy Rivera [facility] 1.2.840.114 350.1.13.10 4.2.7.2.686 [id number] [facility] 2023-02-18 15:30:00 2023-02-18 15:15:55 Outpatient WENDY WALDROP [facility] [id number] [facility] 2023-02-18 00:00:00 2023-02-18 00:00:00 Orders Only Doctor Unassigned, Stanton [facility] 1.2.840.114 350.1.13.10 4.2.7.2.686 [id number] [facility] 2023-02-12 15:57:07 2023-02-12 15:57:07 Outpatient [facility] [id number] Dirk Milan 2022-12-31 14:30:00 2022-12-31 14:30:00 Outpatient Stevo ZARINA KENNEDY [facility] [id number] [facility] 2022-12-28 00:00:00 2022-12-28 00:00:00 Telephone Kennedy Zarina [facility] 1.2.840.114 350.1.13.10 4.2.7.2.686 [id number] 134 [id number] [facility] 2022-12-23 00:00:00 2022-12-23 00:00:00 Telephone Kennedy Zarina [facility] 1.2.840.114 350.1.13.10 4.2.7.2.686 [id number] 134 [id number] [facility] 2022-12-20 15:45:35 2022-12-20 15:45:35 Outpatient [facility] [id number] Dirk Milan 2022-12-05 08:00:00 2022-12-05 08:00:00 Outpatient Stevo ZARINA KENNEDY [facility] [id number] [facility] 2022-11-28 00:00:00 2022-11-28 00:00:00 Telephone Wendy Rivera [facility] 1.2.840.114 350.1.13.10 4.2.7.2.686 [id number] [facility] 2022-11-21 08:56:00 2022-11-21 08:56:00 Outpatient [facility] [id number] Dirk Milan 2022-11-18 14:30:00 2022-11-18 15:20:30 [facility] [id number] [facility] 2022-11-18 14:30:00 2022-11-18 15:20:30 [facility] 1.84.114 350.1.13.10 4.2.7.2.686 [id number] [facility] 2022-11-18 00:00:00 2022-11-18 00:00:00 Orders Only Doctor Unassigned, Stanton [facility] 1..114 350.1.13.10 4.2.7.2.686 [id number] [facility] 2022-10-29 09:00:00 2022-10-29 09:00:00 Outpatient R LAWRENCE [facility] [id number] [facility] 2022-10-28 00:00:00 2022-10-28 00:00:00 Telephone [facility] 1.84.114 350.1.13.10 4.2.7.2.686 [id number] [facility] 2022-10-23 00:00:00 2022-10-23 00:00:00 Telephone [place], [facility] 1..114 350.1.13.10 4.2.7.2.686 [id number] [facility] 2022-08-26 14:30:00 2022-08-26 15:11:07 Outpatient Stevo RIVERA [facility] [id number] [facility] 2022-08-26 14:30:00 2022-08-26 15:11:07 Nurse Visit Nurse, [facility] Jedemory [facility] BUILDING 1.84.114 350.1.13.10 4.2.7.2.686 [id number] [facility] 2022-07-03 17:00:00 2022-07-03 17:15:00 Business And Services Instructor Visit [facility] 1..114 350.1.13.10 4.2.7.2.686 [id number] [facility] 2022-07-03 16:00:00 2022-07-03 16:06:31 Outpatient R LAWRENCE [facility] [id number] [facility] 2022-07-03 16:00:00 2022-07-03 16:06:31 [facility] 1.840.114 350.1.13.10 4.2.7.2.686 [id number] [facility] 2022-07-03 16:00:00 2022-07-03 16:06:31 Outpatient R LAWRENCE, [facility] [id number] [facility] 2022-07-03 16:00:00 2022-07-03 16:06:31 Outpatient R LAWRENCE [facility] [id number] [facility] 2022-06-19 00:00:00 2022-06-19 00:00:00 Telephone [place], Nephrology [facility] 1.840.114 350.1.13.10 4.2.7.2.686 [id number] [facility] 2022-06-12 00:00:00 2022-06-12 00:00:00 Telephone [place], Nephrology [facility] 1.840.114 350.1.13.10 4.2.7.2.686 [id number] [facility] 2022-06-03 14:00:00 2022-06-03 14:15:27 Outpatient WENDY WALDROP [facility] [id number] [facility] 2022-06-03 14:00:00 2022-06-03 14:15:27 Nurse Visit Nurse, [facility] 1.2.840.114 350.1.13.10 4.2.7.2.686 [id number] 134 [id number] [facility] 2022-04-04 15:00:00 2022-04-04 15:00:00 Outpatient Stevo NICOLE [facility] [id number] [facility] 2022-04-03 13:10:05 2022-04-03 23:59:00 Outpatient R JEDEMORY [facility] [id number] [facility] 2022-04-03 13:00:00 2022-04-03 23:59:00 Hospital Encounter Wendy Rivera [facility] 1.2.840.114 350.1.13.10 4.2.7.2.686 [id number] [facility] 2022-04-03 00:00:00 2022-04-03 00:00:00 Orders Only Doctor Unassigned, Stanton [facility] 1.2.840.114 350.1.13.10 4.2.7.2.686 [id number] [facility] 2022-04-03 00:00:00 2022-04-03 00:00:00 Case Management Wendy Rivera [facility] BUILDING 1.2.840.114 350.1.13.10 4.2.7.2.686 [id number] [facility] 2022-03-27 09:30:00 2022-03-27 09:30:00 Outpatient ZARINA DERAS [facility] [id number] [facility] 2022-03-27 09:30:00 2022-03-27 09:30:00 Outpatient R ZARINA KENNEDY [facility] [id number] [facility] 2022-03-27 09:30:00 2022-03-27 09:30:00 Outpatient ZARINA DERAS [facility] [id number] [facility] 2022-03-07 14:00:00 2022-03-07 14:18:10 Outpatient ZARINA DERAS [facility] [id number] [facility] 2022-03-07 14:00:00 2022-03-07 14:18:10 Nurse Visit Nurse, [facility] Brent [facility] BUILDING 1.2.840.114 350.1.13.10 4.2.7.2.686 [id number] 134 [id number] [facility] 2022-02-28 00:00:00 2022-02-28 00:00:00 Telephone Wendy Rivera [facility] BUILDING 1.2.840.114 350.1.13.10 4.2.7.2.686 [id number] [facility] 2022-02-26 15:00:00 2022-02-26 16:12:25 Outpatient Stevo LINDA NORMA [facility] [id number] [facility] 2022-02-26 15:00:00 2022-02-26 16:12:25 Office Visit Wendy Rivera Vivian L [facility] 1.2.840.114 350.1.13.10 4.2.7.2.686 [id number] [facility] 2021-12-13 10:30:00 2021-12-13 10:42:25 Outpatient ZARINA DERAS [facility] [id number] [facility] 2021-12-13 10:30:00 2021-12-13 10:42:25 Nurse Visit Nurse, [facility] Brent [facility] 1..840.114 350.1.13.10 4.2.7.2.686 [id number] [facility] 2021-12-13 10:30:00 2021-12-13 10:30:00 Outpatient R [facility] [id number] [facility] 2021-12-13 00:00:00 2021-12-13 00:00:00 Orders Only Doctor Unassigned, Stanton [facility] 1.840.114 350.1.13.10 4.2.7.2.686 [id number] [facility] 2021-12-07 13:00:00 2021-12-07 13:00:00 Outpatient STAN SPEARS HOWARD [facility] [id number] [facility] 2021-11-28 12:55:00 2021-11-28 16:24:00 Emergency X Pedro MILLER [facility] ERT [id number] [facility] 2021-11-28 12:55:00 2021-11-28 16:24:00 Emergency Pedro Miller [facility] 1..840.114 350.1.13.10 4.2.7.2.686 [id number] [facility] 2021-11-28 00:00:00 2021-11-28 00:00:00 Orders Only Doctor Unassigned, Stanton [facility] 1.840.114 350.1.13.10 4.2.7.2.686 [id number] [facility] 2021-10-22 09:00:00 2021-10-22 09:29:56 Outpatient R NICOLE WENDY [facility] [id number] [facility] 2021-10-22 08:40:07 2021-10-22 09:29:56 Office Visit Wendy Rivera [facility] 1..840.114 350.1.13.10 4.2.7.2.686 [id number] [facility] 2021-09-27 10:30:00 2021-09-27 10:53:39 Outpatient R WENDY RIVERA [facility] [id number] [facility] 2021-09-27 10:24:13 2021-09-27 10:53:39 [facility]ine [facility] 1.2.840.114 350.1.13.10 4.2.7.2.686 [id number] 134 [id number] [facility] 2021-09-12 00:00:00 2021-09-12 00:00:00 [facility] 1.2.840.114 350.1.13.10 4.2.7.2.686 [id number] [facility] 2021-09-10 04:05:00 2021-09-11 16:00:00 Inpatient P ZARINA KENNEDY [facility] ERT [id number] [facility] 2021-09-10 04:05:00 2021-09-11 16:00:00 Hospital Encounter Zarina Kennedy [facility] 1.2840.114 350.1.13.10 4.2.7.2.686 [id number] [facility] 2021-09-10 08:35:00 2021-09-10 16:19:00 Anesthesia Event Jordan Gaspar Leonard [facility] 1.2840.114 350.1.13.10 4.2.7.2.686 [id number] [facility] 2021-09-07 10:06:22 2021-09-07 10:21:22 Laboratory Only Only, Adc Test Zarina Kennedy [facility] 1.2840.114 350.1.13.10 4.2.7.2.686 [id number] [facility] 2021-09-07 10:15:00 2021-09-07 10:15:00 Outpatient R ZARINA KENNEDY [facility] [id number] [facility] 2021-09-06 11:00:13 2021-09-06 11:58:29 Routine Visit Zarina Kennedy [facility]END[facility] 1.2840.114 350.1.13.10 4.2.7.2.686 [id number] [facility] 2021-09-06 11:00:00 2021-09-06 11:58:29 Outpatient R ZARINA KENNEDY [facility] [id number] [facility] 2021-09-04 13:23:00 2021-09-04 15:35:00 Hospital Encounter Kennedy Zarina OcasioNorma bryan Alon [facility] 1.2840.114 350.1.13.10 4.2.7.2.686 [id number] [facility] 2021-09-04 13:23:00 2021-09-04 15:35:00 Outpatient P ZARINA KENNEDY [facility] [id number] [facility] 2021-09-04 11:00:00 2021-09-04 12:14:54 Outpatient R WENDY RIVERA [facility] [id number] [facility] 2021-09-04 10:42:04 2021-09-04 12:14:54 Routine Visit Wendy Rivera [facility] 1.84.114 350.1.13.10 4.2.7.2.686 [id number] [facility] 2021-09-04 00:00:00 2021-09-04 00:00:00 Telephone Zarina Kennedy [facility] 1.2.840.114 350.1.13.10 4.2.7.2.686 [id number] [facility] 2021-09-03 16:15:00 2021-09-03 16:15:00 [facility] [id number] [facility] 2021-08-27 16:30:00 2021-08-27 16:30:00 Outpatient Stevo RIVERA [facility] [id number] [facility] 2021-08-27 15:51:06 2021-08-27 16:29:15 Routine Visit Zarina Kennedy [facility] 1.2.840.114 350.1.13.10 4.2.7.2.686 [id number] [facility] 2021-08-25 22:15:00 2021-08-25 23:30:00 Hospital Encounter [place] [facility] 1.2.840.114 350.1.13.10 4.2.7.2.686 [id number] 083 [id number] [facility] 2021-08-25 09:36:00 2021-08-25 18:31:00 Emergency [facility] 1.2.840.114 350.1.13.10 4.2.7.2.686 [id number] 083 [id number] [facility] 2021-08-24 00:00:00 2021-08-24 00:00:00 Telephone [facility] 1.2.840.114 350.1.13.10 4.2.7.2.686 [id number] 134 [id number] [facility] 2021-08-24 00:00:00 2021-08-24 00:00:00 Telephone Wendy Rivera [facility] Building 1.2.840.114 350.1.13.10 4.2.7.2.686 [id number] 134 [id number] [facility] 2021-08-20 08:20:54 2021-08-20 09:06:30 Routine Visit Zarina Kennedy [facility] 1.2.840.114 350.1.13.10 4.2.7.2.686 [id number] 134 [id number] [facility] 2021-08-20 08:00:00 2021-08-20 08:00:00 Outpatient R ZARINA KENNEDY [facility] [id number] [facility] 2021-08-20 00:00:00 2021-08-20 00:00:00 Telephone Zarina Kennedy [facility] 1.2.840.114 350.1.13.10 4.2.7.2.686 [id number] 134 [id number] [facility] 2021-08-20 00:00:00 2021-08-20 00:00:00 Orders Only Doctor Unassigned, Stanton [facility] 1.2.840.114 350.1.13.10 4.2.7.2.686 [id number] 009 [id number] [facility] 2021-08-17 19:05:00 2021-08-17 21:15:00 Hospital Encounter Zarina Kennedy [facility] 1.2.840.114 350.1.13.10 4.2.7.2.686 [id number] 083 [id number] [facility] 2021-08-17 00:00:00 2021-08-17 00:00:00 Orders Only Doctor Unassigned, Stanton [facility] 1.2.840.114 350.1.13.10 4.2.7.2.686 [id number] 009 [id number] [facility] 2021-08-13 16:00:00 2021-08-13 16:00:00 Outpatient R WENDY RIVERA [facility] [id number] [facility] 2021-08-13 13:32:20 2021-08-13 13:47:20 Business And Services Instructor Visit 2, [facility] 1.2840.114 350.1.13.10 4.2.7.2.686 [id number] 353 [id number] [facility] 2021-08-13 12:46:01 2021-08-13 13:29:24 Routine Visit Wendy Rivera [facility] 1.20.114 350.1.13.10 4.2.7.2.686 [id number] 134 [id number] [facility] 2021-08-11 00:00:00 2021-08-11 00:00:00 Nurse Triage Lashay Merritt [facility] 1.2840.114 350.1.13.10 4.2.7.2.686 [id number] 019 [id number] [facility] 2021-08-03 10:23:00 2021-08-03 13:15:00 Hospital Encounter Zarina Kennedy Vivian L [facility] 1.2840.114 350.1.13.10 4.2.7.2.686 [id number] 083 [id number] [facility] 2021-08-03 00:00:00 2021-08-03 00:00:00 Telephone Zarina Kennedy [facility] 1.2840.114 350.1.13.10 4.2.7.2.686 [id number] 134 [id number] [facility] 2021-08-03 00:00:00 2021-08-03 00:00:00 Orders Only Doctor Unassigned, Stanton [facility] 1.2840.114 350.1.13.10 4.2.7.2.686 [id number] 009 [id number] [facility] 2021-08-01 15:55:38 2021-08-01 16:48:02 Routine Visit Zarina Kennedy Nancy [facility] Building 1.2.840.114 350.1.13.10 4.2.7.2.686 [id number] 134 [id number] [facility] 2021-08-01 16:15:00 2021-08-01 16:15:00 Outpatient R WENDY RIVERA [facility] [id number] [facility] 2021-07-20 13:13:35 2021-07-20 13:57:45 Business And Services Instructor Visit Ultrasound, Adc [facility] Sherry Cherry [facility] Building 1.2.840.114 350.1.13.10 4.2.7.2.686 [id number] 134 [id number] [facility] 2021-07-20 13:30:00 2021-07-20 13:30:00 Outpatient P [facility] [id number] [facility] 2021-07-18 09:45:00 2021-07-18 09:45:00 Outpatient R WENDY RIVERA [facility] [id number] [facility] 2021-07-18 08:15:00 2021-07-18 08:15:00 Outpatient R [facility] [id number] [facility] 2021-07-17 15:44:11 2021-07-17 16:52:37 Routine Visit Zarina Kennedy [facility] 1.2.840.114 350.1.13.10 4.2.7.2.686 [id number] 134 [id number] [facility] 2021-07-17 15:44:11 2021-07-17 16:52:37 Routine Visit Zarina Kennedy [facility] 1.840.114 350.1.13.10 4.2.7.2.686 [id number] 134 [id number] [facility] 2021-07-17 16:15:00 2021-07-17 16:15:00 Outpatient R ZARINA KENNEDY [facility] [id number] [facility] 2021-07-17 00:00:00 2021-07-17 00:00:00 Orders Only Doctor Unassigned, Stanton [facility] 1.20.114 350.1.13.10 4.2.7.2.686 [id number] 009 [id number] [facility] 2021-07-17 00:00:00 2021-07-17 00:00:00 Orders Only Doctor Unassigned, Stanton [facility] 1.284.114 350.1.13.10 4.2.7.2.686 [id number] [id number] [facility] 2021-07-09 11:15:00 2021-07-09 11:15:00 Outpatient R ZARINA KENNEDY [facility] [id number] [facility] 2021-07-03 00:00:00 2021-07-03 00:00:00 Telephone Zarina Kennedy [facility] 1.840.114 350.1.13.10 4.2.7.2.686 [id number] 134 [id number] [facility] 2021-07-03 00:00:00 2021-07-03 00:00:00 Telephone Zarina Kennedy [facility] 1.840.114 350.1.13.10 4.2.7.2.686 [id number] 134 [id number] [facility] 2021-06-28 10:40:29 2021-06-28 10:55:29 Business And Services Instructor Visit 2, Adc Lab Zarina Kennedy [facility] 1.2.840.114 350.1.13.10 4.2.7.2.686 [id number] 353 [id number] [facility] 2021-06-28 10:40:29 2021-06-28 10:55:29 Business And Services Instructor Visit 2, Adc Lab Zarina Kennedy [facility] 1.2.840.114 350.1.13.10 4.2.7.2.686 [id number] 353 [id number] [facility] 2021-06-28 10:00:00 2021-06-28 10:00:00 Outpatient R [facility] [id number] [facility] 2021-06-28 00:00:00 2021-06-28 00:00:00 Telephone Zarina Kennedy [facility] 1.2.840.114 350.1.13.10 4.2.7.2.686 [id number] 134 [id number] [facility] 2021-06-25 10:31:20 2021-06-25 11:38:32 Routine Visit Zarina Kennedy [facility] Building 1.2840.114 350.1.13.10 4.2.7.2.686 [id number] 134 [id number] [facility] 2021-06-25 11:00:00 2021-06-25 11:00:00 Outpatient R ZARINA KENNEDY [facility] [id number] [facility] 2021-06-11 17:01:00 2021-06-11 19:52:00 Emergency Zarina Kennedy [facility] 1.2840.114 350.1.13.10 4.2.7.2.686 [id number] 083 [id number] [facility] 2021-06-11 00:00:00 2021-06-11 00:00:00 Telephone [facility] Building 1.2.840.114 350.1.13.10 4.2.7.2.686 [id number] 134 [id number] [facility] 2021-06-07 00:00:00 2021-06-07 00:00:00 Telephone Zarina Kennedy [facility] Zahra [facility] Building 1.2.840.114 350.1.13.10 4.2.7.2.686 [id number] 134 [id number] [facility] 2021-05-29 15:17:17 2021-05-29 15:49:09 Nurse Visit Nurse, [facility] Zarina Kennedy [facility] Building 1.2.840.114 350.1.13.10 4.2.7.2.686 [id number] 134 [id number] [facility] 2021-05-29 15:07:51 2021-05-29 15:22:51 Business And Services Instructor Visit 2, [facility] Lab Zarina Kennedy [facility] 1.2.840.114 350.1.13.10 4.2.7.2.686 [id number] 353 [id number] [facility] 2021-05-29 15:00:00 2021-05-29 15:00:00 Outpatient R [facility] [id number] [facility] 2021-05-29 00:00:00 2021-05-29 00:00:00 Telephone Zarina Kennedy [facility] 1.2.840.114 350.1.13.10 4.2.7.2.686 [id number] 134 [id number] [facility] 2021-05-28 13:26:09 2021-05-28 14:18:04 Routine Visit Zarina Kennedy [facility] 1.2.840.114 350.1.13.10 4.2.7.2.686 [id number] 134 [id number] [facility] 2021-05-28 13:30:00 2021-05-28 13:30:00 Outpatient R ZARINA KENNEDY [facility] [id number] [facility] 2021-05-09 11:15:00 2021-05-09 11:15:00 Outpatient R WENDY RIVERA [facility] [id number] [facility] 2021-05-09 10:58:18 2021-05-09 11:13:18 Routine Visit Wendy Rivera [facility] 1.2.840.114 350.1.13.10 4.2.7.2.686 [id number] 134 [id number] [facility] 2021-05-07 00:00:00 2021-05-07 00:00:00 Telephone Zarina Kennedy [facility] 1.2.840.114 350.1.13.10 4.2.7.2.686 [id number] 134 [id number] [facility] 2021-04-27 12:57:28 2021-04-27 13:57:28 Business And Services Instructor Visit Ultrasound, Adc Kian Cantu [facility] 1..840.114 350.1.13.10 4.2.7.2.686 [id number] 134 [id number] [facility] 2021-04-27 13:00:00 2021-04-27 13:00:00 Outpatient R [facility] [id number] [facility] 2021-04-24 00:00:00 2021-04-24 00:00:00 Telephone Zarina Kennedy [facility] 1.2.840.114 350.1.13.10 4.2.7.2.686 [id number] 134 [id number] [facility] 2021-04-21 16:26:26 2021-04-21 16:59:11 Telemedici ne Visit Mihai Fernandez Unknown, Attending Count includes the [facility] 1.2840.114 350.1.13.10 4.2.7.2.686 [id number] [facility] 2021-04-21 16:30:00 2021-04-21 16:30:00 Outpatient R UNKNOWN, ATTENDING [facility] [id number] [facility] 2021-04-19 11:49:00 2021-04-19 16:10:00 Emergency Zarina Kennedy [facility] 1.2.840.114 350.1.13.10 4.2.7.2.686 [id number] 083 [id number] [facility] 2021-04-19 00:00:00 2021-04-19 00:00:00 Telephone Zarina Kennedy [facility] Building 1.2.840.114 350.1.13.10 4.2.7.2.686 [id number] 134 [id number] [facility] 2021-04-11 13:32:48 2021-04-11 13:47:48 Business And Services Instructor Visit 2, Adc Lab Zarina Kennedy [facility] Building 1.2.840.114 350.1.13.10 4.2.7.2.686 [id number] 353 [id number] [facility] 2021-04-11 13:05:36 2021-04-11 13:28:34 Routine Visit Zarina Kennedy [facility] Building 1.2.840.114 350.1.13.10 4.2.7.2.686 [id number] 134 [id number] [facility] 2021-04-11 13:00:00 2021-04-11 13:00:00 Outpatient R ZARINA KENNEDY [facility] [id number] [facility] 2021-03-14 12:43:31 2021-03-14 13:35:28 Routine Visit Wendy Rivera [facility] Building 1.2.840.114 350.1.13.10 4.2.7.2.686 [id number] 134 [id number] [facility] 2021-03-14 12:43:31 2021-03-14 13:35:28 Routine Visit Wendy Rivera [facility] Building 1.2.840.114 350.1.13.10 4.2.7.2.686 [id number] 134 [id number] 2021-03-14 13:00:00 2021-03-14 13:00:00 [id number] 2021-02-28 00:00:00 2021-02-28 00:00:00 Telephone Zarina Kennedy [facility] Building 1.2.840.114 350.1.13.10 4.2.7.2.686 [id number] 134 [id number] [facility] 2021-02-21 13:15:00 2021-02-21 13:15:00 Outpatient R [facility] [id number] [facility] 2021-02-21 00:00:00 2021-02-21 00:00:00 Orders Only Doctor Unassigned, Stanton [facility] 1.2.840.114 350.1.13.10 4.2.7.2.686 [id number] [id number] [facility] 2021-02-14 15:01:28 2021-02-14 15:58:16 Routine Visit Zarina Kennedy [facility] Building 1.2.840.114 350.1.13.10 4.2.7.2.686 [id number] 134 [id number] [facility] 2021-02-14 15:45:00 2021-02-14 15:45:00 Outpatient R ZARINA KENNEDY [facility] [id number] [facility] 2021-01-23 00:00:00 2021-01-23 00:00:00 Orders Only Doctor Unassigned, Stanton [facility] 1.2840.114 350.1.13.10 4.2.7.2.686 [id number] 009 [id number] [facility] 2021-01-19 00:00:00 2021-01-19 00:00:00 Telephone Zarina Kennedy [facility] Building 1.2.840.114 350.1.13.10 4.2.7.2.686 [id number] 134 [id number] [facility] 2021-01-18 14:10:26 2021-01-18 14:25:26 Business And Services Instructor Visit 2, Adc Lab Zarina Kennedy [facility] Building 1.284.114 350.1.13.10 4.2.7.2.686 [id number] 353 [id number] [facility] 2021-01-18 14:15:00 2021-01-18 14:15:00 Outpatient R [facility] [id number] [facility] 2021-01-18 00:00:00 2021-01-18 00:00:00 Case Management Wendy Rivera [facility] Building 1.2840.114 350.1.13.10 4.2.7.2.686 [id number] 134 [id number] [facility] 2021-01-17 09:00:00 2021-01-17 09:00:00 Outpatient R [facility] [id number] [facility] 2021-01-16 08:45:00 2021-01-16 08:45:00 Outpatient R BRENT ZARINA [facility] [id number] [facility] 2021-01-16 00:00:00 2021-01-16 00:00:00 Telephone Zarina Kennedy [facility] 1.2.840.114 350.1.13.10 4.2.7.2.686 [id number] 134 [id number] [facility] 2021-01-15 11:32:17 2021-01-15 11:47:17 Business And Services Instructor Visit 2, Adc Lab Zarina Kennedy [facility] Building 1.2.840.114 350.1.13.10 4.2.7.2.686 [id number] 353 [id number] [facility] 2021-01-15 10:17:01 2021-01-15 11:18:23 Initial Visit Zarina Kennedy [facility] Building 1.2.840.114 350.1.13.10 4.2.7.2.686 [id number] 134 [id number] [facility] 2021-01-15 10:00:00 2021-01-15 10:00:00 Outpatient R ZARINA KENNEDY [facility] [id number] [facility] 2021-01-15 00:00:00 2021-01-15 00:00:00 Telephone Zarina Kennedy [facility] Building 1.2.840.114 350.1.13.10 4.2.7.2.686 [id number] 134 [id number] [facility] 2021-01-15 00:00:00 2021-01-15 00:00:00 Orders Only Doctor Unassigned, Stanton [facility] 1.2.840.114 350.1.13.10 4.2.7.2.686 [id number] 009 [id number] [facility] 2021-01-13 18:29:00 2021-01-13 22:52:00 Emergency aKry Lopez [facility] 1.2.840.114 350.1.13.10 4.2.7.2.686 [id number] 084 [id number] [facility] 2020-12-01 10:52:00 2020-12-01 12:00:00 Emergency GERMAN MARTÍNEZ [facility] [id number] [facility] 2020-07-11 10:39:46 2020-07-11 11:22:54 Office Visit Norma Partida [facility] 1.284.114 350.1.13.10 4.2.7.2.686 [id number] 134 [id number] [facility] 2020-07-11 11:00:00 2020-07-11 11:00:00 Outpatient Stevo OCASIOIRVIN NORMA [facility] [id number] [facility] 2020-07-11 00:00:00 2020-07-11 00:00:00 Orders Only Doctor Unassigned, Stanton [facility] 1.284.114 350.1.13.10 4.2.7.2.686 [id number] [id number] [facility] 2020-07-05 16:00:00 2020-07-05 16:00:00 Outpatient Stevo OCASIONORMA BRYAN [facility] [id number] [facility] 2020-06-21 15:22:00 2020-06-21 18:25:[address] [facility] 1.84.114 350.1.13.10 4.2.7.2.686 [id number] 084 [id number] [facility] 2020-06-21 00:00:00 2020-06-21 00:00:00 Orders Only Doctor Unassigned, Stanton [facility] 1.2840.114 350.1.13.10 4.2.7.2.686 [id number] 009 [id number] [facility] 2020-05-01 00:00:00 2020-05-01 00:00:00 Orders Only Doctor Unassigned, Stanton [facility] 1.2840.114 350.1.13.10 4.2.7.2.686 [id number] [id number] [facility] 2020-02-28 11:00:00 2020-02-28 11:00:00 Outpatient WENDY WALDROP [facility] [id number] [facility] 2020-02-28 08:13:41 2020-02-28 08:28:41 [facility]medici ne [facility] 1.2.840.114 350.1.13.10 4.2.7.2.686 [id number] 134 [id number] [facility] 2020-02-26 11:00:00 2020-02-26 11:00:00 Outpatient R UNKNOWN, ATTENDING [facility] [id number] [facility] 2020-02-21 00:00:00 2020-02-21 00:00:00 Telephone [facility] 1.2.840.114 350.1.13.10 4.2.7.2.686 [id number] 134 [id number] [facility] 2020-02-04 00:00:00 2020-02-04 00:00:00 Telephone Wendy Rivera [facility] Building 1.2.840.114 350.1.13.10 4.2.7.2.686 [id number] 134 [id number] [facility] 2020-02-02 00:00:00 2020-02-02 00:00:[address] [facility] 1.2.840.114 350.1.13.10 4.2.7.2.686 [id number] 083 [id number] [facility] 2020-01-30 23:20:00 2020-02-01 13:32:00 Hospital Encounter Zarina Kennedy [facility] 1.2.840.114 350.1.13.10 4.2.7.2.686 [id number] 083 [id number] [facility] 2020-01-31 11:00:00 2020-01-31 11:00:00 Outpatient [facility] [id number] [facility] 2020-01-30 00:00:00 2020-01-30 00:00:00 Orders Only Doctor Unassigned, Stanton [facility] 1.2.840.114 350.1.13.10 4.2.7.2.686 [id number] 009 [id number] [facility] 2020-01-28 00:00:00 2020-01-28 00:00:00 Telephone Zarina Kennedy [facility] Building 1.2.840.114 350.1.13.10 4.2.7.2.686 [id number] 134 [id number] [facility] 2020-01-24 14:38:36 2020-01-24 14:53:36 Business And Services Instructor Visit 2, Adc Lab Zarian Kennedy [facility] 1.2.840.114 350.1.13.10 4.2.7.2.686 [id number] 353 [id number] [facility] 2020-01-24 13:22:06 2020-01-24 14:11:49 Routine Visit Zarina Kennedy [facility] 1.2.840.114 350.1.13.10 4.2.7.2.686 [id number] 134 [id number] [facility] 2020-01-24 13:15:00 2020-01-24 13:15:00 Outpatient R ZARINA KENNEDY [facility] [id number] [facility] 2020-01-24 00:00:00 2020-01-24 00:00:00 Orders Only Doctor Unassigned, Stanton [facility] 1.2.840.114 350.1.13.10 4.2.7.2.686 [id number] 009 [id number] [facility] 2020-01-23 03:41:00 2020-01-23 07:15:00 Hospital Encounter Marco A Nieto Zarina Kennedy [facility] 1.2.840.114 350.1.13.10 4.2.7.2.686 [id number] 083 [id number] [facility] 2020-01-21 21:41:00 2020-01-22 01:25:00 Hospital Encounter Marco A Nieto [facility] 1.2.840.114 350.1.13.10 4.2.7.2.686 [id number] 083 [id number] [facility] 2020-01-20 00:00:00 2020-01-20 00:00:00 Case Management Zarina Kennedy [facility] Building 1.2.840.114 350.1.13.10 4.2.7.2.686 [id number] 134 [id number] [facility] 2020-01-18 12:35:00 2020-01-18 15:00:00 Hospital Encounter Zarina Kennedy [facility] 1.2.840.114 350.1.13.10 4.2.7.2.686 [id number] 083 [id number] [facility] 2020-01-18 12:35:00 2020-01-18 12:35:00 Outpatient P ZARINA KENNEDY [facility] [id number] [facility] 2020-01-10 13:56:38 2020-01-10 14:42:48 Routine Visit Wendy Rivera [facility] Building 1.2840.114 350.1.13.10 4.2.7.2.686 [id number] 134 [id number] [facility] 2020-01-10 14:00:00 2020-01-10 14:00:00 Outpatient R NICOLE WENDY [facility] [id number] [facility] 2020-01-06 11:15:00 2020-01-06 11:15:00 Outpatient R ZARINA KENNEDY [facility] [id number] [facility] 2020-01-06 00:00:00 2020-01-06 00:00:00 Nurse Triage Eda Santos [facility] 1.2.840.114 350.1.13.10 4.2.7.2.686 [id number] [facility] 2019-12-08 13:39:40 2019-12-08 14:27:14 Routine Visit Wendy Rivera [facility] 1.2.840.114 350.1.13.10 4.2.7.2.686 [id number] 134 [id number] [facility] 2019-11-01 12:45:26 2019-11-01 13:14:04 Office Visit Martha Cohn Joseph [facility] [employer] [facility] 1.2.840.114 350.1.13.10 4.2.7.2.686 [id number] 107 [id number] [facility] 2019-07-29 00:00:00 2019-07-29 00:00:00 Telephone Zarina Kennedy [facility] 1.2.840.114 350.1.13.10 4.2.7.2.686 [id number] 134 [id number] [facility] 2019-07-28 00:00:00 2019-07-28 00:00:00 Case Management Zarina Kennedy [facility] 1.2.840.114 350.1.13.10 4.2.7.2.686 [id number] 134 [id number] [facility] 2019-07-27 15:56:23 2019-07-27 16:11:23 Nurse Visit Nurse, [facility] Zarina Kennedy [facility] Building 1.2.840.114 350.1.13.10 4.2.7.2.686 [id number] 134 [id number] [facility] 2019-07-23 00:00:00 2019-07-23 00:00:00 Telephone Zarina Kennedy [facility] Building 1.2.840.114 350.1.13.10 4.2.7.2.686 [id number] 134 [id number] [facility] 2019-07-21 13:20:15 2019-07-21 13:35:15 Business And Services Instructor Visit 1, Adc Lab Zarina Kennedy [facility] 1.2.840.114 350.1.13.10 4.2.7.2.686 [id number] 353 [id number] [facility] 2019-07-20 16:27:05 2019-07-20 17:06:12 Routine Visit Zarina Kennedy [facility] 1.2.840.114 350.1.13.10 4.2.7.2.686 [id number] 134 [id number] [facility] 2019-07-15 00:00:00 2019-07-15 00:00:00 Telephone Zarina Kennedy [facility] 1.2.840.114 350.1.13.10 4.2.7.2.686 [id number] 134 [id number] [facility] 2019-07-14 00:00:00 2019-07-14 00:00:00 Telephone Zarina Kennedy [facility] Building 1.2.840.114 350.1.13.10 4.2.7.2.686 [id number] 134 [id number] [facility] 2019-07-07 14:11:07 2019-07-07 16:17:14 Initial Visit Zarina Kennedy [facility] Building 1.2.840.114 350.1.13.10 [id number] [id number] [facility] 2019-07-07 00:00:00 2019-07-07 00:00:00 Orders Only Doctor Unassigned, Stanton [facility] 1.2.840.114 350.1.13.10 4.2.7.2.686 [id number] [facility] Results Test Description Test Time Test Comments Results Result Co mments Source [facility] (NA, K, CL, CO2, GLUCOSE, BUN, CREATININE, CA)2023-10-14 11:07:11* Test Item Value Reference Range Interpretation Comme nts NA (test code = 2491165725) 138 mmol/L 135-145 K (test code = 9648908011) 3.5 mmol/L 3.5-5.0 CL (test code = 7756903834) 113 mmol/L 98-108 H CO2 TOTAL (test code = 1885681080) 17 mmol/L 23-31 L AGAP (test code = 8799883882) 8 2-16 BUN (test code = 5804099072) 11 mg/dL 7-23 GLUCOSE (test code = 6855997542) 81 mg/dL 70-110 CREATININE (test code = 6025714670) 0.42 mg/dL 0.50-1.04 L CALCIUM (test code = 5741388491) 8.2 mg/dL 8.6-10.6 L eGFR (test code = 28335-5) 142.0 mL/min/1.73m2 CKD-EPI eGFR (2020). Assuming creatinine has been stable day-to-day for at least three months, the eGFR indicates Category G1 (>= 90 mL/min/1.73 m2) Lab Interpretation (test code = 29651-6) Abnormal General acute hospital with [id number] 10:52:48* Test Item Value Reference Range Interpretation [...] 33.4 g/dL 31.6-35.1 RDW-SD (test code = 89269-8) 39.2 fL 39.0-49.9 RDW-CV (test code = 788-0) 12.2 % 12.0-15.5 PLT (test code = 777-3) 240 See_Comment [Automated messa ge] The system which generated this result transmitted reference range: 166 - 358 10*3/?L. The reference range was not used to interpret this result as normal/abnormal. MPV (test code = 50977-2) 9.5 fL 9.5-12.9 NRBC/100 WBC (test code = 9342402912) 0.0 See_Comment [Automated [employer] ssage] The system which generated this result transmitted reference range: 0.0 - 10.0 /100 WBCs. The reference range was not used to interpret this result as normal/abnormal. NRBC x10^3 (test code = 9202556183) See_Comment [Automated [employer] ge] The system which generated this result transmitted reference range: 10*3/?L. The reference range was not used to interpret this result as normal/abnormal. GRAN MAT (NEUT) % (test code = 770-8) 53.1 % IMM GRAN % (test code = 5399005849) 0.30 % LYMPH % (test code = 736-9) 37.8 % MONO % (test code = 5905-5) 5.2 % EOS % (test code = 713-8) 3.2 % BASO % (test code = 706-2) 0.4 % GRAN MAT x10^3(ANC) (test code = 3458473416) 4.11 10*3/uL 1.88-7.09 IMM GRAN x10^3 (test code = 1284327091) 0.00-0.06 LYMPH x10^3 (test code = 731-0) 2.92 10*3/uL 1.32-3.29 MONO x10^3 (test code = 742-7) 0.40 10*3/uL 0.33-0.92 EOS x10^3 (test code = 711-2) 0.25 10*3/uL 0.03-0.39 BASO x10^3 (test code = 704-7) 0.03 10*3/uL 0.01-0.07 Lab Interpretation (test code = 08158-9) Abnormal [facility] METABOLIC PANEL (NA, K, CL, CO2, GLUCOSE, BUN, CREATININE, CA)2023-10-14 02:10:35* Test Item Value Reference Range Interpretation Comme nts NA (test code = 1708655665) 134 mmol/L 135-145 L K (test code = 8108767986) 3.4 mmol/L 3.5-5.0 L CL (test code = 1958260192) 111 mmol/L 98-108 H CO2 TOTAL (test code = 5135001949) 17 mmol/L 23-31 L AGAP (test code = 2495097203) 6 2-16 BUN (test code = 2321784705) 14 mg/dL 7-23 GLUCOSE (test code = 5456903831) 82 mg/dL 70-110 CREATININE (test code = 6307076305) 0.45 mg/dL 0.50-1.04 L CALCIUM (test code = 5622086248) 8.0 mg/dL 8.6-10.6 L eGFR (test code = 57626-5) 139.7 mL/min/1.73m2 CKD-EPI eGFR (2020). Assuming creatinine has been stable day-to-day for at least three months, the eGFR indicates Category G1 (>= 90 mL/min/1.73 m2) Lab Interpretation (test code = 10310-3) Abnormal General acute hospital WITH [id number] 01:49:54* Test Item Value Reference Range Interpretation Comme nts WBC (test code = 6690-2) 10.05 See_Comment [Automated messa ge] The system which [...] 33.6 g/dL 31.6-35.1 RDW-SD (test code = 07648-2) 39.0 fL 39.0-49.9 RDW-CV (test code = 788-0) 12.4 % 12.0-15.5 PLT (test code = 777-3) 251 See_Comment [Automated [employer] ge] The system which generated this result transmitted reference range: 166 - 358 10*3/?L. The reference range was not used to interpret this result as normal/abnormal. MPV (test code = 31987-8) 9.4 fL 9.5-12.9 L NRBC/100 WBC (test code = 5386038002) 0.0 See_Comment [Automated [employer] ssage] The system which generated this result transmitted reference range: 0.0 - 10.0 /100 WBCs. The reference range was not used to interpret this result as normal/abnormal. NRBC x10^3 (test code = 8795167434) See_Comment [Automated [employer] ge] The system which generated this result transmitted reference range: 10*3/?L. The reference range was not used to interpret this result as normal/abnormal. GRAN MAT (NEUT) % (test code = 770-8) 62.2 % IMM GRAN % (test code = 4870125611) 0.30 % LYMPH % (test code = 736-9) 28.4 % MONO % (test code = 5905-5) 6.7 % EOS % (test code = 713-8) 2.1 % BASO % (test code = 706-2) 0.3 % GRAN MAT x10^3(ANC) (test code = 8784433392) 6.26 10*3/uL 1.88-7.09 IMM GRAN x10^3 (test code = 6081521666) 0.03 10*3/uL 0.00-0.06 LYMPH x10^3 (test code = 731-0) 2.85 10*3/uL 1.32-3.29 MONO x10^3 (test code = 742-7) 0.67 10*3/uL 0.33-0.92 EOS x10^3 (test code = 711-2) 0.21 10*3/uL 0.03-0.39 BASO x10^3 (test code = 704-7) 0.03 10*3/uL 0.01-0.07 Lab Interpretation (test code = 03616-2) [facility] 04:40:07* Test Item Value Reference Range Interpretation Comme nts NA (test code = 5494844646) 142 mmol/L 135-145 K (test code = 4811670920) 3.6 mmol/L 3.5-5.0 CL (test code = 5657335306) 109 mmol/L 98-108 H CO2 TOTAL (test code = 7551119933) 21 mmol/L 23-31 L AGAP (test code = 0464487427) 12 2-16 BUN (test code = 9852943039) 11 mg/dL 7-23 GLUCOSE (test code = 9926576390) 106 mg/dL 70-110 CREATININE (test code = 3392562010) 0.62 mg/dL 0.50-1.04 TOTAL BILI (test code = 0454753304) 0.2 mg/dL 0.1-1.1 CALCIUM (test code = 2514132157) 9.4 mg/dL 8.6-10.6 T PROTEIN (test code = 6661407001) 7.4 g/dL 6.3-8.2 ALBUMIN (test code = 2880228747) 4.5 g/dL 3.5-5.0 ALK PHOS (test code = 6142837238) 79 U/L 34-122 ALTv (test code = 1742-6) 32 U/L 5-35 AST(SGOT) (test code = 5473988613) 28 U/L 13-40 eGFR (test code = 97338-5) 130.1 mL/min/1.73m2 CKD-EPI eGFR (2020). Assuming creatinine has been stable day-to-day for at least three months, the eGFR indicates Category G1 (>= 90 mL/min/1.73 m2) Lab Interpretation (test code = 80063-4) Abnormal General acute hospital WITH [id number] 04:29:09* Test Item Value Reference Range Interpretation Comme nts WBC (test code = 6690-2) 7.15 See_Comment [Automated [email or web address]] The system which generated this result transmitted reference range: 4.30 - 11.10 10*3/?L. The reference range was not used to interpret this result as normal/abnormal. RBC (test code = 789-8) 4.45 See_Comment [Automated [email or web address]] The system which generated this result transmitted [...] 33.4 g/dL 31.6-35.1 RDW-SD (test code = 25082-8) 40.4 fL 39.0-49.9 RDW-CV (test code = 788-0) 12.6 % 12.0-15.5 PLT (test code = 777-3) 269 See_Comment [Automated [email or web address]] The system which generated this result transmitted reference range: 166 - 358 10*3/?L. The reference range was not used to interpret this result as normal/abnormal. MPV (test code = 77798-0) 9.6 fL 9.5-12.9 NRBC/100 WBC (test code = 0541650719) 0.0 See_Comment [Automated me ssage] The system which generated this result transmitted reference range: 0.0 - 10.0 /100 WBCs. The reference range was not used to interpret this result as normal/abnormal. NRBC x10^3 (test code = 6250138160) See_Comment [Automated me ssage] The system which generated this result transmitted reference range: 10*3/?L. The reference range was not used to interpret this result as normal/abnormal. GRAN MAT (NEUT) % (test code = 770-8) 69.3 % IMM GRAN % (test code = 3543035350) 0.10 % LYMPH % (test code = 736-9) 22.2 % MONO % (test code = 5905-5) 7.0 % EOS % (test code = 713-8) 1.1 % BASO % (test code = 706-2) 0.3 % GRAN MAT x10^3(ANC) (test code = 7697286243) 4.95 10*3/uL 1.88-7.09 IMM GRAN x10^3 (test code = 1070325105) 0.00-0.06 LYMPH x10^3 (test code = 731-0) 1.59 10*3/uL 1.32-3.29 MONO x10^3 (test code = 742-7) 0.50 10*3/uL 0.33-0.92 EOS x10^3 (test code = 711-2) 0.08 10*3/uL 0.03-0.39 BASO x10^3 (test code = 704-7) 0.01-0.07 [id number] 04:05:00* Test Item Value Reference Range Interpretation Comme [facility] POCT PREG (test code = 1605) Negative On board controls acceptable with C Line (test code = 3574) Yes POCT PREG LOT # (test code = 3575) [id number] POCT PREG TEST DATE ( test code = 3576) 11/12/2024 Lab Interpretation (test cod e = 70099-6) Normal [facility], THIRD [id number] 06:03:21* Test Item Value Reference Range Interpretation Comme [facility], THIRD GENERATION (test code = 2821) 1.000 UIU/ML 0.400-4.100 UNLESS OTHERWISE INDICATED, ALL TESTING PERFORMED AT [facility] [address] [place] [address] VALANCE CUTTER: DOMITILA YOUNG M.D. CLIA NUMBER [id number] [facility] [place]. [id number] LIPID [id number] 06:02:54* Test Item Value Reference Range Interpretation [...] SPECIMENS. FOR MOREINFORMATION, SEE CLIENT ANNOUNCEMENT AT [email or web address] [email or web address] RATIO LDL/HDL (test code = 2238) 2.56 RATIO <3.22 COMPREHENSIVE METABOLIC [id number] 06:02:54* Test Item Value Reference Range Interpretation Comme nts GLUCOSE (test code = 2217) 84 MG/DL 70-99 BUN (test code = 2208) 9 MG/DL 6-20 CREATININE (test code = 2214) 0.67 MG/DL 0.60-1.30 eGFR (2020 CKD-EPI) (test code = 46956) 127 ML/MIN/1.73 >60 CALC BUN/CREAT (test code = 2235) 13 RATIO 6-28 SODIUM (test code = 223) 140 MEQ/L 133-146 POTASSIUM (test code = 2228) 4.1 MEQ/L 3.5-5.4 CHLORIDE (test code = 2215) 105 MEQ/L 95-107 CARBON DIOXIDE (test code = 2206) 21 MEQ/L 19-31 CALCIUM (test code = 2209) 10.1 MG/DL 8.5-10.5 PROTEIN, TOTAL (test code = 2228) 7.5 G/DL 6.1-8.3 ALBUMIN (test code = 220) 4.9 G/DL 3.5-5.2 CALC GLOBULIN (test code = 2240) 2.6 G/DL 1.9-3.7 CALC A/G RATIO (test code = 2233) 1.9 RATIO 1.0-2.6 BILIRUBIN, TOTAL (test code = 7) 0.3 MG/DL <=1.2 ALKALINE PHOSPHATASE (test code = 2204) 88 U/L 39-117 AST (test code = 2218) 22 U/L 9-40 ALT (test code = 2219) 30 U/L 5-40 CBC W/AUTO DIFF WITH [id number] 04:02:12* Test Item Value Reference Range Interpretation [...] = 1065) 0.0 /100 WBC'S See_Comment [Automated [employer]] The system which generated this result [...] 0.00-0.10 ABS NUCLEATED RBCS (test code = 89304) 0.00 K/UL 0.00-0.11 HEMOGLOBIN [id number] 03:49:49* Test Item Value Reference Range Interpretation Comme nts HEMOGLOBIN A1c (test code = 57275) 5.3 % 4.2-5.6 Notes Date/Time Note Provider Source 2024-04-14 15:50:00 Received call from registration that patient returned the urine cup and left the lobby. Priya De Los Santos RN [facility] 2024-04-14 14:53:55 Pt stating she can't taste or feel part of her tongue. Feels like left side of face is swollen. Unsure of when exactly it happened. States this has happened before but it was her legs. Ambulated without obvious gait disturbances. NAT Esperanza Frazier RN [facility] 2024-04-11 14:15:46 Patient dc home. Take otc meds per MD machado instructions. Verbalized understanding. Signed paper work. [facility] 2024-04-11 12:35:41 Complains of sore throat x2 days with fever. Cali Zaragoza RN [facility] 2024-04-11 12:29:00 Images from the original note were not included. [facility] Emergency Department Note Patient Name: Devi Russell Date of : 2000 23 year old female Treatment Room: Room/bed info not found Primary Care Physician: Reyna Campbell Patient Escorted by: Self [9] Mode of Arrival: Personal means [1] EMS Treatment Prior to ED Arrival: Travel and Exposure Screening: Symptoms Does patient have any of these symptoms?: (not recorded) Exposure Screening Has patient had contact with someone with a communicable disease in the last month?: (not recorded) Diseases exposed to:: (not recorded) Is Patient ?: (not recorded) Exposure Date: (not recorded) Chief Complaint: Chief Complaint Patient presents with Sore Throat History of Present Illness: 2-3 days of worsening sore throat and pain with swallowing and intermittent fevers, son sick with similar. No prior evaluation.took dayquil earlier without relief. No drooling. No appetite. No known medical problems or daily medications. Still urinating well. Past Medical History/Immunizations: Past Medical History: Diagnosis Date Anxiety Asthma 12/11/2018 Bipolar disorder, mixed Calculus of kidney 10/08/2023 Depression Mild pre-eclampsia in third trimester 09/10/2021 Allergies: No Known Allergies Past Social History: Tobacco Use Every Day; Cigarettes: Last attempted to quit 07/05/2019 Smokeless Tobacco: Never used smokeless tobacco. Comments: 1/2 PPD, and vaps Vaping Use Every day; Substances: Nicotine; Devices: Pre-filled or refillable cartridge Alcohol Use Yes. Comments: occassionally Drug Use Never. Sexual Activity Sexually active; Partners: Male; Control/Protection: Injection. Past Surgical History: Past Surgical History: Procedure Laterality Date BIOPSY SOFT TISSUE BACK,SUPERF CHOLECYSTECTOMY 02/19/2020 URETEROSCOPIC STONE MANIPULATION Right 10/10/2023 Surgeon: Mallorie Alejandra MD; Location: [facility] Review of Systems: Review of Systems Constitutional: Positive for activity change, appetite change, fatigue and fever. Negative for chills. HENT: Positive for sore throat and trouble swallowing. Negative for drooling and facial swelling. Respiratory: Negative for cough and shortness of breath. Cardiovascular: Negative for chest pain. Gastrointestinal: Negative for abdominal pain, nausea and vomiting. All other systems reviewed and are negative. Physical Exam: ED Triage Vitals [04/11/24 1236] Weight 59 kg (130 lb) Actual or estimated Height 1.575 m (5' 2") BP 122/77 Pulse 106 Resp 20 Temp 37 ?C (98.6 ?F) Temp src SpO2 100 % Measured on Physical Exam Vitals and nursing note reviewed. Constitutional: General: She is not in acute distress. Appearance: She is well-developed. She is not ill-appearing or toxic-appearing. HENT: Head: Normocephalic and atraumatic. Nose: Nose normal. Mouth/Throat: Pharynx: Uvula midline. Tonsils: No tonsillar exudate or tonsillar abscesses. 2+ on the right. 2+ on the left. Eyes: General: No scleral icterus. Neck: Vascular: No JVD. Cardiovascular: Rate and Rhythm: Normal rate and regular rhythm. Pulses: Normal pulses. Pulmonary: Effort: Pulmonary effort is normal. No respiratory distress. Abdominal: General: There is no distension. Palpations: Abdomen is soft. Musculoskeletal: Cervical back: Normal range of motion and neck supple. No rigidity. Lymphadenopathy: Cervical: Cervical adenopathy present. Skin: Capillary Refill: Capillary refill takes less than 2 seconds. Findings: No erythema or rash. Neurological: Mental Status: She is alert. Psychiatric: Behavior: Behavior normal. Thought Content: Thought content normal. Judgment: Judgment normal. Radiology: No orders to display Lab Results: Lab Results POCT TEST - Normal Result Value Ref Range POCT PREG Negative On board controls acceptable with C Line Yes INFLUENZA A/B RSV COVID NAAT - Normal Influenza A NAAT Negative Negative Influenza B NAAT Negative Negative RSV by PCR Negative Negative SARS-CoV-2 NAAT Negative Negative RAPID STREP SCREEN FOR GROUP A - Normal Molecular Strep Negative Negative THROAT CULTURE EKG: If EKG completed, see Procedure Note. Orders and Treatments: Orders Placed This Encounter Procedures POCT Test Influenza A B RSV COVID NAAT RAPID STREP SCREEN FOR GROUP A Throat Culture Lab Only COVID Interpretation Orders Placed This Encounter Medications dexamethasone sod phos PF injection 10 mg First Provider Eval: ED Events Date/Time Event User Comments 04/11/249 Medical Screening Begins FIDE FREITAS MD -- 04/11/24 1229 First Provider Evaluation FIDE FREITAS MD -- ED COURSE Diagnosis/Impression as of 04/11/24 1337 Sore throat Viral pharyngitis Procedures: Procedures MDM: Medical Decision Making Covid vs flu vs strep vs rsv vs viral uri, not consistent on exam with peritonsillar abscess or deep neck space abscess or epiglottitis. Swabs, IM decadron. Swabs negative. Strep negative. Discharge with otc medications, follow up outpatient Problems Addressed: Sore throat: complicated acute illness or injury Viral pharyngitis: complicated acute illness or injury with systemic symptoms Amount and/or Complexity of Data Reviewed Labs: ordered. Decision-making details documented in ED Course. Risk OTC drugs. Prescription drug management. Flowsheet Documentation: Scoring Tools: No data recorded Disposition/Condition: ED Disposition ED Disposition Disch - Home Condition Stable Comment -- Discharge Medications: Patient's Medications START taking these medications No medications on file CONTINUE taking these medications which have NOT CHANGED ACETAMINOPHEN-CODEINE 300-30 MG TABLET TAKE 1 TABLET BY MOUTH EVERY 8 HOURS NEEDED FOR ACUTE PAIN ALBUTEROL SULFATE HFA INHALE Inhale. CETIRIZINE 10 MG TABLET Take 1 tablet by mouth in the morning. CYCLOBENZAPRINE 5 MG TABLET Take 1 tablet by mouth 2 (two) times daily as needed. DICLOFENAC 75 MG EC TABLET EMTRICITABINE-TENOFOVIR, TDF, 200-300 MG TABLET Take 1 tablet by mouth every 24 (twenty-four) hours. FLUOXETINE 40 MG CAPSULE Take 1 capsule by mouth every morning. GABAPENTIN 100 MG CAPSULE Take 2 capsules by mouth in the morning and 2 capsules in the evening. IBUPROFEN 600 MG TABLET TAKE 1 TABLET BY MOUTH TWICE A DAY NEEDED KETOROLAC 10 MG TABLET Take 1 tablet by mouth every 6 (six) hours as needed for Pain (scale 7-10). METHOCARBAMOL 500 MG TABLET Take 1 tablet by mouth 3 (three) times daily as needed for Pain (scale 4-6) or Pain (scale 7-10). ONDANSETRON 4 MG TABLET Take 1 tablet by mouth every 8 (eight) hours as needed for Nausea and Vomiting (N/V). QUETIAPINE 50 MG TABLET Take 1 tablet by mouth in the morning. SULFAMETHOXAZOLE-TRIMETHOPR IM (BACTRIM DS) 800-160 MG PER TABLET Take 1 tablet by mouth in the morning and 1 tablet in the evening. TAMSULOSIN (FLOMAX) 0.4 MG 24 HR CAPSULE Take 1 capsule by mouth in the morning. UBROGEPANT (UBRELVY) 100 MG TAB Ubrelvy 100 mg tablet Take 1 tablet by oral route as needed. START taking Modified Medications as Prescribed No medications on file STOP taking these medications No medications on file Follow-up: Electronically signed by: Fide Freitas MD 04/11/24 1337 [facility] 2023-11-13 13:45:00 Images from the original note were not included. Venipuncture collection performed by clean technique on the left anticubitus. Total of 1 attempts were made. Slight pressure and a bandage/dressing were applied to the site(s). The patient experienced no complications. The following specimens were processed according to instructions and sent to [facility] laboratories per lab order on 11/13/2023 : LT BLUE SST 3 RED 1 LAV PPT DK GREEN (LiHep) DK GREEN (SodH) RODRIGUEZ DK BLUE (K2) DK BLUE (S) ACD Blood Culture NIPT/NTD [facility] 2023-11-13 13:15:00 Addended by: FIORDALIZA TATUM RN on: 11/13/2023 01:45 PM Modules accepted: Orders [facility]
[2024-09-18] MEDS ORDERED: KETOROLAC 30 MG/ML INJ ONE (10:31)
[2024-09-18] MEDS ORDERED: DIAZEPAM 2 MG TABLET ONE (10:32)
[2024-09-18 10:35] LABS: Absolute Eosinophils 0.1 K/uL (0-0.5); Absolute Lymphocytes (CBC) 2.6 K/uL (0.7-4.9); Absolute Monocytes 0.5 K/uL (0.1-1.3); Absolute Neutrophil 3.7 K/uL (1.8-8.0); Basophils % 0.6 % (0-1.3); Eosinophils % 1.7 % (0-4.4); Hematocrit 40.9 % (36.0-45.0); Hemoglobin 13.7 g/dL (12.0-15.0); Lymphocytes % 37.8 % (15.3-44.8); MCHC 33.6 g/dL (32.0-36.0); MCV 86.6 fL (80-100); MPV 7.6 fL (7.6-11.3); Monocytes % 7.3 % (3.3-12.3); Neutrophils % 52.6 % (41.7-73.7); Platelets 272 thou/uL (152-406); RBC Red Blood Cell Count 4.72 M/uL (3.86-4.86); Red Cell Distribution Width 13.9 % (12.1-15.2)
[2024-09-18 10:49] LABS: Albumin 3.9 g/dL (3.4-5.0); Anion Gap 9.3 mEq/L (5.0-15.0); Bilirubin Total 0.3 mg/dL (0.2-1.0); Globulin 3.9 g/dL (2.3-3.5); Potassium 3.3 mEq/L (3.5-5.1); Protein, Total 7.8 g/dL (6.4-8.2)
[2024-09-18] MEDS ORDERED: POTASSIUM CL SA 10 MEQ TAB PO ONE (11:20)
[2024-09-18] MEDS ORDERED: CALCIUM GLUCONATE 1 GM IVPB 1 GM/50 ML BAG IV ONE (11:20)
--- NOTE | 2024-09-18 12:10 | ER ---
Nurse's Notes [facility] Name: Devi Calvert Age: 23 yrs Sex: Female : 2000 Arrival Date: 09/18/2024 Time: 09:57 Bed 8 Private MD: Diagnosis: Hypocalcemia;Hypokalemia Presentation: 09/18 10:05 Chief complaint: Neck pain and right numbness and tingling x 2 days, had thyroidectomy hb 09/[address] Scott. Coronavirus screen: At this time, the client does not indicate any symptoms associated with coronavirus-19. Ebola Screen: No symptoms or risks identified at this time. Initial Sepsis Screen: Does the patient meet any 2 criteria? No. Patient's initial sepsis screen is negative. Does the patient have a suspected source of infection? No. Patient's initial sepsis screen is negative. Risk Assessment: Do you want to hurt yourself or someone else? Patient reports no desire to harm self or others. Onset of symptoms was September 17, 2024. 10:05 Method Of Arrival: Ambulatory hb 10:05 Acuity: CHANTAL 3 hb Historical: - Allergies: 10:07 No Known Allergies; hb - PMHx: 10:07 Anxiety; Asthma; Depression; IPH; Migraines; previous suicide attempt; Schizophrenia; hb vocal chords problem; Thyroid Cancer; - PSHx: 10:07 Cholecystectomy; Thyroidectomy; hb - Immunization history:: Adult Immunizations up to date. - Infectious Disease History:: Denies. - Social history:: Smoking status: Patient denies any tobacco usage or history of. Screenin:20 [facility] ED Fall Risk Assessment (Adult) History of falling in the last 3 months, aa5 including since admission No falls in past 3 months (0 pts) Confusion or Disorientation No (0 pts) Intoxicated or Sedated No (0 pts) Impaired Gait No (0 pts) Mobility Assist Device Used No (0 pt) Altered Elimination No (0 pt) Score/Fall Risk Level 0 - 2 = Low Risk Oriented to surroundings, Maintained a safe environment, Educated pt \T\ family on fall prevention, incl call for assistance when getting out of bed. Abuse screen: Denies threats or abuse. Nutritional screening: No deficits noted. Tuberculosis screening: No symptoms or risk factors identified. Assessment: 10:20 General: Appears uncomfortable, Behavior is calm, cooperative. Pain: Complains of pain aa5 in posterior and anterior neck, greater to posterior neck Pain currently is 7 out of 10 on a pain scale. Quality of pain is described as pressure, Is continuous, Aggravated by movement. Neuro: Level of Consciousness is awake, alert, obeys commands, Oriented to person, place, time, situation, Reports tingling to madi hands. . Cardiovascular: Patient's skin is warm and dry. Respiratory: Airway is patent Respiratory effort is even, unlabored, Respiratory pattern is regular, symmetrical. GI: No signs and/or symptoms were reported involving the gastrointestinal system. Patient currently denies intolerance of fluids, intolerance of food, nausea, vomiting. : No signs and/or symptoms were reported regarding the genitourinary system. EENT: No signs and/or symptoms were reported regarding the EENT system. Derm: Skin is pink, warm \T\ dry. Incision noted to anterior neck with Steri strips in place, no s/s of infection noted or reported to site, mild swelling noted to site. Musculoskeletal: Range of motion: intact in all extremities. 10:28 Reassessment: Pt requesting pain medication for neck pain, provider notified. . aa5 10:58 Reassessment: Patient is alert, oriented x 3, equal unlabored respirations, skin aa5 warm/dry/pink. Pain is unchanged, rates pain 7/10. . 11:34 Reassessment: Patient is alert, oriented x 3, equal unlabored respirations, skin aa5 warm/dry/pink. Vital Signs: 10:05 BP 108 / 76; Pulse 84; Resp 16; Temp 98.4(O); Pulse Ox 98% on R/A; Weight 60.33 kg; hb Height 5 ft. 2 in. ; Pain 7/10; 11:35 BP 107 / 84; Pulse 64; Resp 16 S; Pulse Ox 100% on R/A; aa5 12:28 BP 103 / 72; Pulse 68; Resp 15; Pulse Ox 99% ; ko1 10:05 Body Mass Index 24.33 (60.33 kg, 157.48 cm) hb 10:05 Pain Scale: Adult hb ED Course: 09:59 Patient arrived in ED. ra3 10:00 B[facility]va Mor[facility] F[facility]-C [facility] kb 10:00 Raffaele Simpson MD is Attending Physician. kb 10:07 Triage completed. hb 10:07 Arm band placed on. hb 10:13 Gege Min, RN is Primary Nurse. aa5 10:20 Patient has correct armband on for positive identification. Bed in low position. Call aa5 light in reach. Side rails up X 1. Adult w/ patient. Pulse ox on. NIBP on. 10:28 CMP Sent. ls5 10:28 CBC with Diff Sent. ls5 10:28 Inserted saline lock: 20 gauge in right antecubital area, using aseptic technique. ls5 Blood collected. 12:28 Provided Education on: meds. ko1 12:28 No provider procedures requiring assistance completed. IV discontinued, intact, ko1 bleeding controlled, No redness/swelling at site. Pressure dressing applied. Administered Medications: 10:30 CANCELLED (Physician Discretion): diazepam5 mg PO once kb 10:36 Drug: Ketorolac IVP 30 mg IVP once Route: IVP; Site: right antecubital; aa5 10:58 Follow up: Response: No adverse reaction aa5 10:36 Drug: Diazepam PO 2 mg PO once Route: PO; aa5 10:58 Follow up: Response: No adverse reaction aa5 11:31 Drug: Calcium Gluconate IVPB 1 grams IVPB once over 60 mins; (mix in NS 100 mL) Route: aa5 IVPB; Infused Over: 60 mins; Site: right antecubital; 12:30 Follow up: IV Status: Completed infusion; IV Intake: 50ml ; (IVPB available in xis is aa5 1gram in 50mls) 11:32 Drug: Potassium Chloride PO 20 mEq PO once Route: PO; aa5 12:30 Follow up: Response: No adverse reaction aa5 Medication: 12:28 VIS not applicable for this client. ko1 Intake: 12:30 IV: 50ml; Total: 50ml. aa5 Outcome: 12:09 Discharge ordered by . kb 12:28 Discharged to home ambulatory, with family, ko1 12:28 Condition: stable 12:28 Discharge instructions given to patient, Instructed on discharge instructions, follow up and referral plans. Demonstrated understanding of instructions, follow-up care, 12:30 Patient left the ED. ko1 Signatures: Batsheva Mora, LINE HELPER-C LINE HELPER-Ckb Gege Min, RN RN aa5 Danna Flores RN RN Zahira Bingham, BERNA RN ko1 Jc Abreu 5 Gina Kumar ra3 Corrections: (The following items were deleted from the chart) 10:38 10:30 Patient has correct armband on for positive identification. Bed in low position. aa5 Call light in reach. Side rails up X 1. Adult w/ patient. aa5 10:38 10:30 Pulse ox on. NIBP on. aa5 aa5 16:16 10:20 Neuro: Level of Consciousness is awake, alert, obeys commands, Oriented to aa5 person, place, time, situation, aa5
--- NOTE | 2024-09-18 12:10 | EDPHYS ---
Physician Documentation [facility] Name: Devi Calvert Age: 23 yrs Sex: Female : 2000 Arrival Date: 09/18/2024 Time: 09:57 Bed 8 Private MD: ED Physician Raffaele Simpson HPI: 09/18 10:01 This 23 yrs old Female presents to ER via Unassigned with complaints of kb Facial/fingers numbness Post Sx. 10:01 Pt is a 23 year old female who presents for finger numbness and neck pain that started kb 2 days ago. States she had a thyroidectomy on by Dr Scott. Reports history of thyroid cancer. Concerned about low calcium due to recent surgery. Historical: - Allergies: 10:07 No Known Allergies; hb - PMHx: 10:07 Anxiety; Asthma; Depression; IPH; Migraines; previous suicide attempt; Schizophrenia; hb vocal chords problem; Thyroid Cancer; - PSHx: 10:07 Cholecystectomy; Thyroidectomy; hb - Immunization history:: Adult Immunizations up to date. - Infectious Disease History:: Denies. - Social history:: Smoking status: Patient denies any tobacco usage or history of. ROS: 10:04 Constitutional: As per HPI kb Exam: 10:45 Constitutional: This is a well developed, well nourished patient who is awake, alert, kb and in no acute distress. Head/Face: Normocephalic, atraumatic. ENT: Moist Mucous membranes Cardiovascular: Regular rate Respiratory: Respirations even and unlabored. No increased work of breathing. Talking in full sentences Skin: Warm, dry with normal turgor. Normal color. MS/ Extremity: Pulses equal, no cyanosis. Neurovascular intact. Full, normal range of motion. Neuro: Awake and alert, GCS 15, oriented to person, place, time, and situation. 10:45 Neck: External neck: tenderness, that is mild, of the right posterior aspect of neck, right lateral aspect of neck, left posterior aspect of neck and left lateral aspect of neck, surgical incision with steristrips in place to anterior neck, Vital Signs: 10:05 BP 108 / 76; Pulse 84; Resp 16; Temp 98.4(O); Pulse Ox 98% on R/A; Weight 60.33 kg; hb Height 5 ft. 2 in. ; Pain 7/10; 11:35 BP 107 / 84; Pulse 64; Resp 16 S; Pulse Ox 100% on R/A; aa5 12:28 BP 103 / 72; Pulse 68; Resp 15; Pulse Ox 99% ; ko1 10:05 Body Mass Index 24.33 (60.33 kg, 157.48 cm) hb 10:05 Pain Scale: Adult hb MDM: 10:00 Medical Screening Exam initiated kb 10:04 Data reviewed: vital signs, nurses notes. kb 12:08 Differential diagnosis: electrolyte abnormality, radiculopathy. Counseling: I had a kb detailed discussion with the patient and/or guardian regarding the historical points, exam findings, and any diagnostic results supporting the discharge/admit diagnosis, lab results, the need for outpatient follow up, a family practitioner, to return to the emergency department if symptoms worsen or persist or if there are any questions or concerns that arise at home. 09/18 10:06 Order name: CBC with Diff; Complete Time: 10:40 kb 09/18 10:06 Order name: CMP; Complete Time: 11:01 kb 09/18 10:06 Order name: IV Start; Complete Time: 10:28 kb Administered Medications: 10:30 CANCELLED (Physician Discretion): diazepam5 mg PO once kb 10:36 Drug: Ketorolac IVP 30 mg IVP once Route: IVP; Site: right antecubital; aa5 10:58 Follow up: Response: No adverse reaction aa5 10:36 Drug: Diazepam PO 2 mg PO once Route: PO; aa5 10:58 Follow up: Response: No adverse reaction aa5 11:31 Drug: Calcium Gluconate IVPB 1 grams IVPB once over 60 mins; (mix in NS 100 mL) Route: aa5 IVPB; Infused Over: 60 mins; Site: right antecubital; 12:30 Follow up: IV Status: Completed infusion; IV Intake: 50ml ; (IVPB available in Pyxis is aa5 1gram in 50mls) 11:32 Drug: Potassium Chloride PO 20 mEq PO once Route: PO; aa5 12:30 Follow up: Response: No adverse reaction aa5 Disposition: 13:32 Co-signature as Attending Physician, Raffaele Simpson MD I reviewed the patient's care rt provided by the Advanced Practice Provider and agree with the diagnosis and treatment plan. Disposition Summary: 09/18/24 12:09 Discharge Ordered Notes: Location: Home kb Condition: Stable kb Diagnosis - Hypocalcemia kb - Hypokalemia kb Followup: kb - With: Emergency Department - When: As needed - Reason: Worsening of condition Followup: kb - With: Private Physician - When: 2 - 3 days - Reason: Recheck today's complaints, Continuance of care, Re-evaluation by your physician Discharge Instructions: - Discharge Summary Sheet kb - Hypocalcemia, Adult kb - Hypokalemia kb Forms: - Medication Reconciliation Form kb - Antibiotic Education kb - Prescription Opioid Use kb - Patient Portal Instructions kb - Leadership Thank You Letter kb Signatures: Dispatcher [employer] EDMS Batsheva Mora FNP-[employer] CUSTOMER SERVICE MANAGER-Gege Kumar, RN RN aa5 Danna Flores, RN RN Zahira Bingham RN RN ko1 Raffaele Simpson MD MD rt Corrections: (The following items were deleted from the chart) 10:06 10:06 CBC+H.LAB.BRZ ordered. EDMS EDMS 10:06 10:06 COMPREHENSIVE METABOLIC PANEL+C.LAB.BRZ ordered. EDMS EDMS 10:30 10:29 Diazepam PO 5 mg PO once ordered. kb kb
[2024-09-18 12:59] VITALS: TEMP 98.4
[2024-09-18 13:14] VITALS: BP 103/72; O2SAT 99
== END 2024-09-18 12:30 | disposition home or self-care (01) ==
LOC: ER 09:57
DX: E83.51 Hypocalcemia (principal); E87.6 Hypokalemia; Z98.890 Other specified postprocedural states
CPT/HCPCS: 96365; 85025; 36415; 80053; 96375; 99284; J0612

== ENCOUNTER 2024-09-18 13:53 | Inpatient (IN) | payer BC ==
--- OUTSIDE RECORDS SUMMARY | 2024-09-18 14:01 | XMS REPORT | Continuity of Care Document ---
Author Name Unknown Address [address] [facility] [address] [place] [address] [facility] thconnect Address [address] [facility] [place] [address] Care Team Providers Care Sewage Screen Operator Name Role Phone Deo Waters MD, Lio Cmamy Primary Care Physici an ZARINA KENNEDY Attending Clinician Unavailable ZARINA KENNEDY Attending Clinician Unavailable GERMAN EISENBERG Attending Clinician Unavailable Doctor Unassigned, [place] Attending Clinician U aureliaable Shaikh LEIGH, Alcira Attending Clinician [phone] Nurse, [facility] Attending Clinician Un available Zarina Kennedy MD Attending Clinician [phone] HINA SANON Attending Clinician HINA Ambrose Attending Clinician TARAS Jacques Attending Clinician Unavailluis zaman Nurse, [facility] Attending Clinician Un available MICHELE BAUTISTA Attending Clinician Un available VIVIANA DOWNEY Attending Clinician Unavailable Dominga HECK, Viviana Shine Attending Clinician [phone] FIDE FREITAS Attending Clinician Unavailable Fide Freitas MD Attending Clinician [phone], [facility] Attending Clinician Unavailable Doctor Unassigned, [place] Attending Clinician U MARCO A Cantu Attending Clinician UnavailMallorie Mata MD Attending Clinician [phone] Omer Burris MD, [place] Attending Clinician + [phone] Marco A Mcmillan MD Attending Clinician +[phone] MALLORIE ALEJANDRA Attending Clinician Unavailable AILIN TANG Attending Clinician UnavailAilin Israel Attending Clinician [phone] DAVY SOTELO Attending Clinician Unavailable DAVY SOTELO Attending Clinician Unavailable Jackie Griffin MD, Iris Attending Clinician [phone] BRIT LAUREN Attending Clinician UnavailIDA Ash Attending Clinician Unavailable Norma Partida MD Attending Clinician [phone] NORMA PARTIDA Attending Clinician Unavailable WENDY RIVERA Attending Clinician Unavailable Wendy Rivera PA-C Attending Clinician [phone] GUTIERREZ BRAVO Attending Clinician Unavailable Gutierrez Bravo MD Attending Clinician [phone] [facility] Attending Clinician Unavailable Cynthia OLIVEIRAIsha Sanchez Attending Clin ician [place], Nephrology Attending Clinician Unavaila STAN Hampton Attending Clinician Unavail able STAN TY Attending Clinician Unavail able Pedro MILLER Attending Clinician Unavailable Paul PACPedro Attending Clinician [phone] Jordan Gaspar CRNA Attending Clinician [phone] Jesus Martinez MD, Leonard Attending Clinician + [phone] Only, [facility] Test Attending Clinician Unavailable Kary Oseguera MD Attending Clinician [phone] Lashay Merritt RN Attending Clinician Unavailable Ultrasound, [facility] Attending Clinician Unavaila beata Aguillon MD, Sherry Attending Clinician + Kian Gutierrez MD Attending Clinician [phone] Mihai Fernandez MD Attending Clinician [phone] Unknown, Attending Attending Clinician Unavailab le UNKNOWN, ATTENDING Attending Clinician Unavailab Kary Harkins Attending Clinician [phone] DR GERMAN CARMEN Attending Clinician UnavailMarco A Salcedo MD Attending Clinician + [phone] Eda Santos RN Attending Clinician Unavailable Martha Cohn Attending Clinician Unavail able Jonny Sarah MD Attending Clinician [phone] 1, [facility] Attending Clinician Unavailable ZARINA KENNEDY Admitting Clinician Unavailable MARCO A NIETO Admitting Clinician Unavaila MICHELE Browning Admitting Clinician Un available LASHELL CH Admitting Clinician Graham Burris MD, [place] Admitting Clinician + [phone] MALLORIE ALEJANDRA Admitting Clinician Unavailable Mallorie Alejandra MD Admitting Clinician +[phone] IRIS KEYES Admitting Clinician Unavailab WENDY Short Admitting Clinician Unavailable Zarina Kennedy MD Admitting Clinician [phone] Norma Partida MD Admitting Clinician [phone] NORMA PARTIDA Admitting Clinician Unavailable Kary Oseguera MD Admitting Clinician +[phone] GERMAN CARMEN Admitting Clinician UnavailMarco A Salcedo MD Admitting Clinician + [phone] Payers Payer Name Policy Type Policy Number Effective Date Expirati on Date Source [facility] [id number] 2020 00:00:00 [facility] [id number] 2019 00:00:00 Problems Condition Name Condition Details Condition Category Status Onset Date Resolution Date Last Treatment Date Treating Clinician Comments Source Decreased libido Decreased libido Disease Active 11-13 00:00: 00 [facility] Hydronephr osis Hydronephr osis Disease Active 2022-11 00:00: 00 [facility] Calculus of kidney Calculus of kidney Disease Active 2022-11 00:00: 00 [facility] Hydronephr osis with urinary obstructio n due to renal calculus Hydronephr osis with urinary obstructio n due to renal calculus Disease Active 2022-11 00:00: 00 [facility] Flank pain Flank pain Disease Active 2022-11 00:00: 00 [facility] Allergic rhinitis Allergic rhinitis Disease Active 03-15 00:00: 00 [facility] Nausea Nausea Disease Active 03-15 00:00: 00 [facility] Generalize d anxiety disorder Generalize d anxiety disorder Disease Active 2018-11 00:00: 00 [facility] Major depressive disorder Major depressive disorder Disease Active 2018-11 00:00: 00 [facility] History of self-harm History of self-harm Disease Active 2018-11 00:00: 00 [facility] Bipolar 1 disorder Bipolar 1 disorder Disease Active 8-30 00:00: 00 [facility] Asthma Asthma Disease Active 2-01 00:00: 00 [facility] Depressive disorder Depressive disorder Disease Active 1-31 00:00: 00 [facility] 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 She's being observed off meds. [facility] Mild pre-eclamp dominik in third trimester Mild pre-eclamp dominik in third trimester Disease Resolve d 1 1-01 00:00: 00 2021-09-27 00:00:00 2021-09-27 10:29:55 [facility] 39 weeks gestation of 39 weeks gestation of Disease Resolve d 2020-1 0-29 00:00: 00 2021-09-27 00:00:00 2021-09-27 10:29:55 [facility] Encounter for planned induction of labor Encounter for planned induction of labor Disease Resolve d 2020-1 0-29 00:00: 00 2021-09-27 00:00:00 2021-09-27 10:29:55 [facility] Low-lying placenta Low-lying placenta Disease Resolve d 2020-0 7-19 00:00: 00 2021-09-27 00:00:00 2021-09-27 20:21:44 [facility] High-risk in third trimester High-risk in third trimester Disease Resolve d 2020-0 4-07 00:00: 00 2021-09-27 00:00:00 2021-09-27 10:29:55 [facility] Rh negative state in antepartum period Rh negative state in antepartum period Disease Resolve d 2020-0 4-07 00:00: 00 2021-09-27 00:00:00 2021-09-27 20:21:45 [facility] Liveborn infant, of umaña , born in hospital by vaginal delivery Liveborn infant, of umaña , born in hospital by vaginal delivery Disease Resolve d 2019-0 3-23 00:00: 00 2021-09-27 00:00:00 2021-09-27 20:21:47 [facility] Family history of congenital heart defect Family history of congenital heart defect Disease Resolve d 2018-0 8-30 00:00: 00 2021-09-27 00:00:00 2021-09-27 20:21:57 [facility] Vaginal discharge Vaginal discharge Disease Resolve d 2018-1 2-31 00:00: 00 2021-01-15 00:00:00 2021-01-15 11:03:56 [facility] Need for prophylact ic vaccinatio n and inoculatio n against varicella Need for prophylact ic vaccinatio n and inoculatio n against varicella Disease Resolve d 2018-1 0-14 00:00: 00 2021-01-15 00:00:00 2021-01-15 11:05:00 [facility] Need for vaccinatio n against rubella Need for vaccinatio n against rubella Disease Resolve d 2018-1 0-14 00:00: 00 2021-01-15 00:00:00 2021-01-15 11:05:01 [facility] Normal labor Normal labor Disease Resolve d 2019-0 3-23 00:00: 00 2020-02-28 00:00:00 2020-02-28 09:13:37 [facility] Group B streptococ jose infection during Group B streptococ jose infection during Disease Resolve d 2019-0 3-23 00:00: 00 2020-02-28 00:00:00 2020-02-28 09:13:32 [facility] High-risk in third trimester High-risk in third trimester Disease Resolve d 2018-11 00:00: 00 2020-02-28 00:00:00 2020-02-28 09:13:35 [facility] 26 weeks gestation of 26 weeks gestation of Disease Resolve d 2018-11 00:00: 00 2019-12-08 00:00:00 2019-12-08 14:01:23 [facility] Allergies, Adverse Reactions, Alerts Allergy Name Allergy Type Status Severity Reaction(s) Onset Date Inactive Date Treating Clinician Comments Source NO KNOWN ALLERGIE S Drug Class Active [facility] No Known Drug Allergie s DA [facility] Social History Social Habit Start Date Stop Date Quantity Comments Source Gender identity [facility] Sexual orientation [facility] History of tobacco use Cigarette Smoker [facility] Cigarettes smoked current (pack per day) - Reported 2024-08-04 00:00:00 2024-08-04 00:00:00 [facility] Cigarette pack-years 2024-08-04 00:00:00 2024-08-04 00:00:00 [facility] Tobacco use and exposure 2024-08-04 00:00:00 2024-08-04 00:00:00 Smokeless tobacco non-user [facility] Tobacco Comment 2024-08-02 00:00:00 2024-08-02 00:00:00 1/2 pack daily [facility] Alcoholic beverage intake 2024-04-30 00:00:00 2024-04-30 00:00:00 Current drinker of alcohol (finding) [facility] Alcohol intake 2024-02-06 00:00:00 2024-02-06 00:00:00 Current drinker of alcohol (finding) [facility] Alcohol Comment 2023-11-13 00:00:00 2023-11-13 00:00:00 occassionally [facility] History of Social function 2023-10-10 00:00:00 2023-10-10 00:00:00 [facility] Exposure to SARS-CoV-2 (event) 2023-02-08 00:00:00 2023-02-18 14:56:00 Not sure [facility] Sex assigned at 2001 00:00:00 2000 00:00:00 [facility] Smoking Status Start Date Stop Date Source Smokes tobacco daily 2024-08-04 00:00:00 [facility] Ex-smoker 2022-06-03 00:00:00 2022-06-03 00:00:00 [facility] Medications Ordered Medication Name Filled Medication Name Start Date Stop Date Current Medication? Ordering Clinician Indication Dosage Frequency Signature (SIG) Comments Components Source QUEtiapine (SEROquel) 50 MG tablet 08-02 08:26: 42 Yes 50mg Take 50 mg by mouth every night. [facility] Rimegepant Sulfate (Nurtec) 75 MG tablet dispersible 08-02 00:00: 00 10-02 05:59 :00 Yes [id number] 75mg Q2D Take 75 mg by mouth every other day. [facility] albuterol 108 (90 Base) MCG/ACT inhaler 07-29 00:00: 00 Yes 2{puff} 2 puffs every 4 (four) hours if needed. [facility] medroxyPROG ESTERone (DEPO-PROVE RA) syringe 150 mg 07-28 15:15: 00 07-28 14:18 :00 No [id number] 150mg 150 mg, Intramuscu lar, ONCE, 1 dose, On Fri07/28/24 at 1015, Routine [facility] medroxyPROG ESTERone (DEPO-PROVE RA) syringe 150 mg 04-30 15:30: 00 04-30 14:38 :00 No [id number] 150mg 150 mg, Intramuscu lar, ONCE, 1 dose, On Fri04/30/24 at 1030, Routine [facility] medroxyPROG ESTERone (DEPO-PROVE RA) 150 mg/mL syringe 04-30 09:30: 56 Yes 150mg 1 mL by Intramuscu lar route every 3 (three) months. [facility] medroxyPROG ESTERone (DEPO-PROVE RA) 150 mg/mL syringe 04-14 16:04: 17 Yes 150mg 1 mL by Intramuscu lar route every 3 (three) months. [facility] ubrogepant (UBRELVY) 100 mg Tab 04-14 15:41: 00 04-14 00:00 :00 No Ubrelvy 100 mg tablet Take 1 tablet by oral route as needed. [facility] ibuprofen 600 mg tablet 04-14 15:40: 54 04-14 00:00 :00 No TAKE 1 TABLET BY MOUTH TWICE A DAY NEEDED [facility] diclofenac 75 mg EC tablet 04-14 15:40: 42 04-14 00:00 :00 No [facility] cyclobenzap rine 5 mg tablet 04-14 15:40: 32 04-14 00:00 :00 No 5mg Take 1 tablet by mouth 2 (two) times daily as needed. [facility] cetirizine 10 mg tablet 04-14 15:40: 26 04-14 00:00 :00 No 10mg Take 1 tablet by mouth in the morning. [facility] ALBUTEROL SULFATE HFA INHALE 04-14 15:40: 20 04-14 00:00 :00 No Inhale. [facility] acetaminoph en-codeine 300-30 mg tablet 04-14 15:40: 14 04-14 00:00 :00 No TAKE 1 TABLET BY MOUTH EVERY 8 HOURS NEEDED FOR ACUTE PAIN [facility] dexamethaso ne sod phos PF injection 10 mg 04-11 18:45: 00 04-11 17:46 :00 No 10mg 10 mg, Intramuscu lar, ONCE, 1 dose, On 04/11/24 at 1345, Routine [facility] medroxyPROG ESTERone (DEPO-PROVE RA) syringe 150 mg 02-05 15:00: 00 02-05 14:00 :00 No [id number] 150mg Univer s ity [facility] medroxyPROG ESTERone (DEPO-PROVE RA) syringe 150 mg 11-13 20:15: 00 11-13 19:30 :00 No [id number] 150mg Univer [facility] ALBUTEROL SULFATE HFA INHALE 11-13 12:59: 22 Yes Inhale. [facility] FLUoxetine 40 mg capsule 11-13 12:58: 49 Yes 40mg Take 1 capsule by mouth every morning. [facility] ubrogepant (UBRELVY) 100 mg Tab 11-13 12:58: 49 Yes Ubrelvy 100 mg tablet Take 1 tablet by oral route as needed. [facility] acetaminoph en-codeine 300-30 mg tablet 11-13 12:58: 49 Yes TAKE 1 TABLET BY MOUTH EVERY 8 HOURS NEEDED FOR ACUTE PAIN [facility] ibuprofen 600 mg tablet 11-13 12:58: 49 Yes TAKE 1 TABLET BY MOUTH TWICE A DAY NEEDED [facility] diclofenac 75 mg EC tablet 11-13 12:58: 49 Yes [facility] cyclobenzap rine 5 mg tablet 11-13 12:58: 49 Yes 5mg Take 1 tablet by mouth 2 (two) times daily as needed. [facility] cetirizine 10 mg tablet 11-13 12:58: 49 Yes 10mg Take 1 tablet by mouth in the morning. [facility] acetaminoph en (TYLENOL) tablet 650 mg 2022-11 19:30: 00 Yes 650mg 650 mg, Oral, Q6H ABX, First dose (after last modificati on) on Fri10/14/23 at 1330, Until Discontinu ed, [facility] (ROBAXIN) tablet 500 mg 2022-11 18:30: 00 Yes 500mg 500 mg, Oral, QID, First dose on Fri10/14/23 at 1230, Until Discontinu ed, Routine [facility] ketorolac (TORADOL) injection 15 mg 2022-11 18:22: 51 10-18 18:21 :51 No 15mg 15 mg, Slow IV Push, Q6HPRN, Starting on Fri10/14/23 at 1222, Until Fri10/18/23 at 1221, Routine, Pain (scale 4-6) [facility] HYDROcodone -acetaminop hen (NORCO 5) 5-325 mg tablet 1 tablet 2022-11 18:20: 10 10-16 02:45 :23 No 1{tbl} 1 tablet, Oral, Q6HPRN, Starting on Fri10/14/23 at 1220, Until Fri10/15/23 at 2045, Routine, Pain (scale 7-10) [facility] FLUoxetine (PROZAC) capsule 40 mg 2022-11 15:00: 00 Yes 40mg 40 mg, Oral, DAILY, First dose on Fri10/14/23 at 0900, Until Discontinu ed, Routine [facility] tamsulosin (FLOMAX) capsule 0.4 mg 2022-11 15:00: 00 Yes .4mg 0.4 mg, Oral, DAILY, First dose on Fri10/14/23 at 0900, Until Discontinu ed, Routine [facility] sennosides- docusate sodium (SENOKOT-S) 8.6-50 mg per tablet 1 tablet 2022-11 15:00: 00 Yes 1{tbl} 1 tablet, Oral, DAILY, First dose on Fri10/14/23 at 0900, Until Discontinu ed, Routine [facility] FLUoxetine 40 mg capsule 2022-11 14:44: 43 Yes 40mg Take 1 capsule by mouth every morning. [facility] ubrogepant (UBRELVY) 100 mg Tab 2022-11 14:44: 43 Yes Ubrelvy 100 mg tablet Take 1 tablet by oral route as needed. [facility] QUEtiapine (SEROQUEL) tablet 50 mg 2022-11 07:30: 00 Yes 50mg 50 mg, Oral, QHS, First dose on Fri10/14/23 at 0130, Until Discontinu ed, Routine [facility] albuterol (VENTOLIN) inhaler 2 Puff 2022-11 07:20: 25 Yes 2{puff} 2 Puff, Inhalation , Q4HPRN, Starting on Fri10/14/23 at 0120, Until Discontinu ed, Routine, Wheezing, Shortness of Breath [facility] cefTRIAXone (ROCEPHIN) 1,000 mg in [...]
D uration of therapy: 5 days [facility] NaCl 0.9% (NS) IV infusion 1,000 mL 2022-11 03:00: 00 Yes 1000mL at 125 mL/hr, IV Infusion, CONTINUOUS , Starting on Fri10/13/23 at 2100, Until Discontinu ed, Routine [facility] HYDROcodone -acetaminop hen (NORCO 5) 5-325 mg tablet 1 tablet 2022-11 02:46: 23 10-14 18:20 :18 No 1{tbl} 1 tablet, Oral, Q6HPRN, Starting on Fri10/13/23 at 2046, Until Fri10/14/23 at 1220, Routine, Pain (scale 4-6) [facility] ondansetron (ZOFRAN (PF)) injection 4 mg 2022-11 02:44: 32 Yes 4mg 4 mg, Slow IV Push, Q6HPRN, Starting on Fri10/13/23 at 2044, Until Discontinu ed, Routine, Nausea and Vomiting (N/V) [facility] ketorolac (TORADOL) injection 15 mg 2022-11 02:26: 58 10-14 18:20 :08 No 15mg 15 mg, Slow IV Push, Q6HPRN, Starting on Fri10/13/23 at 2026, Until Fri10/14/23 at 1220, Routine, Pain (scale 7-10) [facility] methocarbam oL 500 mg tablet 2022-11 00:00: 00 04-14 00:00 :00 No [id number] 500mg Take 1 tablet by mouth 3 (three) times daily as needed for Pain (scale 4-6) or Pain (scale 7-10). [facility] sulfamethox azole-trime thoprim (BACTRIM DS) 800-160 mg per tablet 2022-11 00:00: 00 04-14 00:00 :00 No [id number] 1{tbl} Take 1 tablet by mouth in the morning and 1 tablet in the evening. [facility] tamsulosin (FLOMAX) 0.4 mg 24 hr capsule 2022-11 00:00: 00 04-14 00:00 :00 No [id number] .4mg Take 1 capsule by mouth in the morning. [facility] ketorolac 10 mg tablet 2022-11 00:00: 00 04-14 00:00 :00 No [id number] 10mg Take 1 tablet by mouth every 6 (six) hours as needed for Pain (scale 7-10). [facility] gabapentin 100 mg capsule 2022-11 00:00: 00 04-14 00:00 :00 No [id number] 200mg Take 2 capsules by mouth in the morning and 2 capsules in the evening. [facility] acetaminoph en-codeine 300-30 mg tablet 2022-11 00:00: 00 10-18 05:59 :00 No [id number] 1{tbl} Take 1 tablet by mouth every 6 (six) hours as needed for Pain (scale 7-10) for up to 3 days. Indication s: acute pain [facility] meperidine (DEMEROL) injection 12.5 mg 2022-11 00:24: 18 Yes 12.5mg 12.5 mg, Slow IV Push, PRN, 1 dose, Starting on Fri10/10/23 at 1824, Until Discontinu ed, Routine, Shivering, PACU
En ter indication for use: Reduce postoperat cheyenne shivering< br>administrative appeals tribunal member approving Restricted medication : ROSARIO HOFFMANN [facility] HYDROmorphO ne (DILAUDID) injection 0.2 mg 2022-11 00:24: 18 Yes .2mg 0.2 mg, Slow IV Push, Q5MIN PRN, 10 doses, Starting on Fri10/10/23 at 1824, Until Discontinu ed, Routine, Pain (scale 7-10), PACU
Us e approved by (Faculty): PACU USE -ANESTHESI A SERVICE-HY DROMORPHON E INJECTIONS [facility] FENTanyl PF (SUBLIMAZE (PF)) injection 25 mcg 2022-11 00:24: 18 Yes 25ug 25 mcg, Slow IV Push, Q5MIN PRN, 4 doses, Starting on Fri10/10/23 at 1824, Until Discontinu ed, Routine, Pain (scale 4-6), PACU [facility] lactated ringers IV infusion 1,000 mL 2022-11 20:00: 00 10-10 20:24 :00 No 1000mL at 42 mL/hr, 1,000 mL, IV Infusion, ONCE, 1 dose, On Fri10/10/23 at 1400, Routine, DSU Pre-op [facility] FLUoxetine 40 mg capsule 2022-11 19:08: 55 Yes 40mg Take 1 capsule by mouth every morning. [facility] ubrogepant (UBRELVY) 100 mg Tab 2022-11 19:08: 55 Yes Ubrelvy 100 mg tablet Take 1 tablet by oral route as needed. [facility] tamsulosin (FLOMAX) 0.4 mg 24 hr capsule 2022-11 00:00: 00 10-14 00:00 :00 No [id number] .4mg Take 1 capsule by mouth in the morning for 5 days. [facility] ketorolac 10 mg tablet 2022-11 00:00: 00 10-14 00:00 :00 No [id number] 10mg Take 1 tablet by mouth every 6 (six) hours as needed for Pain (scale 7-10) (Alternate with ibuprofen if taking concurrent ly). [facility] FLUoxetine 20 mg capsule 2022-11 08:06: 30 10-09 00:00 :00 No fluoxetine 20 mg capsule TAKE 1 CAPSULE BY MOUTH EVERY DAY [facility] escitalopra m oxalate 20 mg tablet 2022-11 10:50: 05 10-08 00:00 :00 No escitalopr am 20 mg tablet [facility] dicyclomine 20 mg tablet 2022-11 10:49: 59 10-08 00:00 :00 No dicyclomin e 20 mg tablet TAKE 1 TABLET BY MOUTH EVERY 6 HOURS NEEDED [facility] busPIRone 5 mg tablet 2022-11 10:49: 56 10-08 00:00 :00 No buspirone 5 mg tablet [facility] ARIPiprazol e 5 mg tablet 2022-11 10:49: 47 10-08 00:00 :00 No aripiprazo le 5 mg tablet [facility] albuterol 90 mcg/actuati on inhaler 2022-11 10:49: 40 10-08 00:00 :00 No 2{puff} Inhale 2 Puffs every 6 (six) hours as needed. [facility] albuterol 2.5 mg /3 mL (0.083 %) nebulizer solution 2022-11 10:49: 34 10-08 00:00 :00 No 2.5mg Inhale 3 mL every 4 (four) hours as needed. [facility] ondansetron 4 mg tablet 2022-11 08:44: 57 10-08 00:00 :00 No ondansetro n HCl 4 mg tablet TAKE 1 TABLET BY MOUTH EVERY 12 HOURS NEEDED [facility] chlorhexidi ne 0.12 % mouthwash 2022-11 08:43: 33 10-08 00:00 :00 No chlorhexid ine gluconate 0.12 % mouthwash USE TWICE DAILY [facility] diphenoxyla te-atropine 2.5-0.025 mg tablet 2022-11 08:43: 30 10-08 00:00 :00 No diphenoxyl ate-atropi ne 2.5 mg-0.025 mg tablet [facility] fluconazole 200 mg tablet 2022-11 08:43: 15 10-08 00:00 :00 No fluconazol e 200 mg tablet [facility] iron-FA-dha -epa-FAD-NA DH-be-mv (ENLYTE) 1.5 mg iron- 8.73 mg CpID 2022-11 08:42: 37 10-08 00:00 :00 No EnLyte 1.5 mg iron-8.73 mg capsule,im mediate - delay release [facility] lurasidone 20 mg tablet 2022-11 08:42: 34 10-08 00:00 :00 No Latuda 20 mg tablet [facility] ondansetron 4 mg disintegrat ing tablet 2022-11 08:41: 45 10-08 00:00 :00 No ondansetro n 4 mg disintegra ting tablet [facility] prazosin 1 mg capsule 2022-11 08:41: 33 10-08 00:00 :00 No prazosin 1 mg capsule [facility] predniSONE 20 mg tablet 2022-11 08:41: 18 10-08 00:00 :00 No prednisone 20 mg tablet [facility] Sodium Fluoride, Dental Gel, 1.1 % Crea 2022-11 08:41: 05 10-08 00:00 :00 No Denta 5000 Plus 1.1 % cream USE TWICE A DAY IN THE MORNING AND AT NIGHT. DO NOT EAT OR DRINK FOR AT LEAST 30 MINS [facility] SUMAtriptan 50 mg tablet 2022-11 08:41: 02 10-08 00:00 :00 No sumatripta n 50 mg tablet [facility] ondansetron 4 mg tablet 2022-11 00:00: 00 04-14 00:00 :00 No [id number] 4mg Take 1 tablet by mouth every 8 (eight) hours as needed for Nausea and Vomiting (N/V). [facility] tamsulosin 0.4 mg 24 hr capsule 2022-11 00:00: 00 10-14 00:00 :00 No [id number] .4mg Take 1 capsule by mouth in the morning. [facility] ketorolac (TORADOL) injection 15 mg 2022-11 05:45: 00 10-06 06:04 :00 No 15mg 15 mg, Slow IV Push, ONCE, 1 dose, On 10/05/23 at 2345, Routine [facility] HYDROcodone -acetaminop hen (NORCO 5) 5-325 mg tablet 1 tablet 2022-11 04:15: 00 10-06 04:06 :00 No 1{tbl} 1 tablet, Oral, ONCE, 1 dose, On 10/05/23 at 2215, [facility] naproxen 500 mg EC tablet 2022-11 00:00: 00 10-14 00:00 :00 No [id number] 500mg Take 1 tablet by mouth as needed for Pain (scale 4-6). [facility] emtricitabi ne-tenofovi r, TDF, 200-300 mg tablet 2022-11 0-16 00:00: 00 04-14 00:00 :00 No 1{tbl} Take 1 tablet by mouth every 24 (twenty-fo ur) hours. [facility] medroxyPROG ESTERone (DEPO-PROVE RA) syringe 150 mg 2022-11 006 14:00: 00 08-15 13:03 :00 No [id number] 150mg [facility] medroxyPROG ESTERone (DEPO-PROVE RA) syringe 150 mg 05-14 21:30: 00 05-14 20:47 :00 No [id number] [facility] (DEPO-PROVE RA) syringe 150 mg 02-18 21:15: 00 02-18 20:22 :00 No [id number] [facility] albuterol 90 mcg/actuati on inhaler 02-18 15:20: 25 Yes 2{puff} Inhale 2 Puffs every 6 (six) hours as needed. [facility] albuterol 2.5 mg /3 mL (0.083 %) nebulizer solution 02-18 15:20: 25 Yes 2.5mg Inhale 3 mL every 4 (four) hours as needed. [facility] SUMAtriptan 50 mg tablet 02-18 15:20: 25 Yes sumatripta n 50 mg tablet [facility] medroxyPROG ESTERone (DEPO-PROVE RA) syringe 150 mg 11-18 22:00: 00 11-18 21:18 :00 No [id number] 150mg [facility] s [facility] clindamycin 300 mg capsule 11-18 15:33: 50 11-18 00:00 :00 No clindamyci n HCl 300 mg capsule Take 1 capsule 3 times a day by oral route for 10 days. [facility] ciprofloxac in HCl 500 mg tablet 11-18 15:33: 47 11-18 00:00 :00 No ciprofloxa moinca 500 mg tablet [facility] cephALEXin 500 mg capsule 11-18 15:33: 40 11-18 00:00 :00 No cephalexin 500 mg capsule [facility] azithromyci n 250 mg tablet 11-18 15:33: 37 11-18 00:00 :00 No azithromyc in 250 mg tablet TAKE BY MOUTH 2 TABLETS TODAY THEN 1 TABLE DAILY FOR NEXT 4 DAYS [facility] doxylamine- pyridoxine, vit B6, 10-10 mg per tablet 11-18 15:33: 25 11-18 00:00 :00 No Diclegis 10 mg-10 mg tablet,del ayed release TAKE 1 TABLET BY MOUTH THREE TIMES A DAY NEEDED AND 2 AT BEDTIME [facility] norgestimat e-ethinyl estradioL 0.25-35 mg-mcg per tablet 11-18 15:33: 12 11-18 00:00 :00 No Sprintec (28) 0.25 mg-35 mcg tablet TAKE 1 TABLET BY MOUTH EVERY DAY [facility] Nitrofurant oin&Nit. Macrocryst 100 mg capsule 11-18 15:33: 09 11-18 00:00 :00 No nitrofuran toin monohydrat e/macrocry stals 100 mg capsule [facility] vit,calc76/ iron/folic (PRENATABS RX ORAL) 11-18 15:33: 03 11-18 00:00 :00 No Prenatabs Rx 29 mg iron-1 mg tablet [facility] PNV38/iron, crb,g/folic /dss/dha (CITRANATAL ASSURE ORAL) 11-18 15:33: 02 11-18 00:00 :00 No CitraNatal Assure 35 mg iron-1 mg-50 mg-300 mg oral pack [facility] PNV 67-iron ps-folate no.1-dha (VITAFOL ULTRA) 29 mg iron- 1 mg-200 mg Cap 11-18 15:32: 56 11-18 00:00 :00 No Vitafol Ultra 29 mg iron-1 mg-200 mg capsule [facility] sulfamethox azole-trime thoprim 800-160 mg per tablet 11-18 15:32: 50 11-18 00:00 :00 No sulfametho xazole 800 mg-trimeth oprim 160 mg tablet [facility] predniSONE 20 mg tablet 11-18 14:55: 24 Yes prednisone 20 mg tablet [facility] prazosin 1 mg capsule 11-18 14:55: 24 Yes prazosin 1 mg capsule [facility] ondansetron 4 mg tablet 11-18 14:55: 24 Yes ondansetro n HCl 4 mg tablet TAKE 1 TABLET BY MOUTH EVERY 12 HOURS NEEDED [facility] ondansetron 4 mg disintegrat ing tablet 11-18 14:55: 24 Yes ondansetro n 4 mg disintegra ting tablet [facility] lurasidone 20 mg tablet 11-18 14:55: 24 Yes Latuda 20 mg tablet [facility] Sodium Fluoride, Dental Gel, 1.1 % Crea 11-18 14:55: 24 Yes Denta 5000 Plus 1.1 % cream USE TWICE A DAY IN THE MORNING AND AT NIGHT. DO NOT EAT OR DRINK FOR AT LEAST 30 MINS [facility] fluconazole 200 mg tablet 11-18 14:55: 24 Yes fluconazol e 200 mg tablet [facility] escitalopra m oxalate 20 mg tablet 11-18 14:55: 24 Yes escitalopr am 20 mg tablet [facility] diphenoxyla te-atropine 2.5-0.025 mg tablet 11-18 14:55: 24 Yes diphenoxyl ate-atropi ne 2.5 mg-0.025 mg tablet [facility] dicyclomine 20 mg tablet 11-18 14:55: 24 Yes dicyclomin e 20 mg tablet TAKE 1 TABLET BY MOUTH EVERY 6 HOURS NEEDED [facility] chlorhexidi ne 0.12 % mouthwash 11-18 14:55: 24 Yes chlorhexid ine gluconate 0.12 % mouthwash USE TWICE DAILY [facility] busPIRone 5 mg tablet 11-18 14:55: 24 Yes buspirone 5 mg tablet [facility] ARIPiprazol e 5 mg tablet 11-18 14:55: 24 Yes aripiprazo le 5 mg tablet [facility] iron-FA-dha -epa-FAD-NA DH-be-mv (ENLYTE) 1.5 mg iron- 8.73 mg CpID 11-18 14:55: 24 Yes EnLyte 1.5 mg iron-8.73 mg capsule,im mediate - delay release [facility] iron-FA-dha -epa-FAD-NA DH-be-mv (ENLYTE) 1.5 mg iron- 8.73 mg CpID 11-18 14:55: 24 Yes EnLyte 1.5 mg iron-8.73 mg capsule,im mediate - delay release [facility] miSOPROStoL 200 mcg tablet 11-18 00:00: 00 10-08 00:00 :00 No [id number] Take one tablet night before procedure, then take one tablet morning of procedure [facility] medroxyPROG ESTERone (DEPO-PROVE RA) syringe 150 mg 2021-11 21:15: 00 08-26 20:14 :00 No [id number] 150mg [facility] SUMAtriptan 50 mg tablet 07-03 15:26: 51 Yes sumatripta n 50 mg tablet [facility] sulfamethox azole-trime thoprim 800-160 mg per tablet 07-03 15:26: 51 Yes sulfametho xazole 800 mg-trimeth oprim 160 mg tablet [facility] predniSONE 20 mg tablet 07-03 15:26: 51 Yes prednisone 20 mg tablet [facility] prazosin 1 mg capsule 07-03 15:26: 51 Yes prazosin 1 mg capsule [facility] ondansetron 4 mg tablet 07-03 15:26: 51 Yes ondansetro n HCl 4 mg tablet TAKE 1 TABLET BY MOUTH EVERY 12 HOURS NEEDED [facility] ondansetron 4 mg disintegrat ing tablet 07-03 15:26: 51 Yes ondansetro n 4 mg disintegra ting tablet [facility] Nitrofurant oin&Nit. Macrocryst 100 mg capsule 07-03 15:26: 51 Yes nitrofuran toin monohydrat e/macrocry stals 100 mg capsule [facility] lurasidone 20 mg tablet 07-03 15:26: 51 Yes Latuda 20 mg tablet [facility] Sodium Fluoride, Dental Gel, 1.1 % Crea 07-03 15:26: 51 Yes Denta 5000 Plus 1.1 % cream USE TWICE A DAY IN THE MORNING AND AT NIGHT. DO NOT EAT OR DRINK FOR AT LEAST 30 MINS [facility] fluconazole 200 mg tablet 07-03 15:26: 51 Yes fluconazol e 200 mg tablet [facility] escitalopra m oxalate 20 mg tablet 07-03 15:26: 51 Yes escitalopr am 20 mg tablet [facility] doxylamine- pyridoxine, vit B6, 10-10 mg per tablet 07-03 15:26: 51 Yes Diclegis 10 mg-10 mg tablet,del ayed release TAKE 1 TABLET BY MOUTH THREE TIMES A DAY NEEDED AND 2 AT BEDTIME [facility] diphenoxyla te-atropine 2.5-0.025 mg tablet 07-03 15:26: 51 Yes diphenoxyl ate-atropi ne 2.5 mg-0.025 mg tablet [facility] dicyclomine 20 mg tablet 07-03 15:26: 51 Yes dicyclomin e 20 mg tablet TAKE 1 TABLET BY MOUTH EVERY 6 HOURS NEEDED [facility] clindamycin 300 mg capsule 07-03 15:26: 51 Yes clindamyci n HCl 300 mg capsule Take 1 capsule 3 times a day by oral route for 10 days. [facility] ciprofloxac in HCl 500 mg tablet 07-03 15:26: 51 Yes ciprofloxa monica 500 mg tablet [facility] chlorhexidi ne 0.12 % mouthwash 07-03 15:26: 51 Yes chlorhexid ine gluconate 0.12 % mouthwash USE TWICE DAILY [facility] cephALEXin 500 mg capsule 07-03 15:26: 51 Yes cephalexin 500 mg capsule [facility] busPIRone 5 mg tablet 07-03 15:26: 51 Yes buspirone 5 mg tablet [facility] azithromyci n 250 mg tablet 07-03 15:26: 51 Yes azithromyc in 250 mg tablet TAKE BY MOUTH 2 TABLETS TODAY THEN 1 TABLE DAILY FOR NEXT 4 DAYS [facility] ARIPiprazol e 5 mg tablet 07-03 15:26: 51 Yes aripiprazo le 5 mg tablet [facility] PNV 67-iron ps-folate no.1-dha (VITAFOL ULTRA) 29 mg iron- 1 mg-200 mg Cap 07-03 15:26: 51 Yes Vitafol Ultra 29 mg iron-1 mg-200 mg capsule [facility] norgestimat e-ethinyl estradioL 0.25-35 mg-mcg per tablet 07-03 15:26: 51 Yes Sprintec (28) 0.25 mg-35 mcg tablet TAKE 1 TABLET BY MOUTH EVERY DAY [facility] vit,calc76/ iron/folic (PRENATABS RX ORAL) 07-03 15:26: 51 Yes Prenatabs Rx 29 mg iron-1 mg tablet [facility] iron-FA-dha -epa-FAD-NA DH-be-mv (ENLYTE) 1.5 mg iron- 8.73 mg CpID 07-03 15:26: 51 Yes EnLyte 1.5 mg iron-8.73 mg capsule,im mediate - delay release [facility] QUEtiapine 100 mg tablet 03-05 00:00: 00 10-08 00:00 :00 No [facility] FLUoxetine 40 mg capsule 03-05 00:00: 00 10-08 00:00 :00 No [facility] cetirizine 10 mg tablet 2022-0 4-18 00:00: 00 10-08 00:00 :00 No 10mg Take 10 mg by mouth daily. [facility] albuterol 90 mcg/actuati on inhaler 2020-11 16:22: 14 Yes 2{puff} Inhale 2 Puffs every 6 (six) hours as needed. [facility] albuterol 2.5 mg /3 mL (0.083 %) nebulizer solution 2020-11 16:22: 14 Yes 2.5mg Inhale 2.5 mg every 4 (four) hours as needed. [facility] FLUoxetine 20 mg capsule 2020-11 16:22: 14 Yes fluoxetine 20 mg capsule TAKE 1 CAPSULE BY MOUTH EVERY DAY [facility] docusate calcium 240 mg capsule 2020-11 00:00: 00 10-08 00:00 :00 No [id number] 240mg Take 1 capsule by mouth once daily as needed for Constipati on. [facility] ferrous sulfate 325 mg (65 mg iron) tablet 2020-11 00:00: 00 10-08 00:00 :00 No [id number] 325mg Take 1 tablet by mouth 2 (two) times daily. [facility] QUEtiapine 50 mg tablet 2018-11 00:00: 00 Yes 50mg Take 1 tablet by mouth in the morning. [facility] Immunizations Ordered Immunization Name Filled Immunization Name Date Status Comments Source Influenza Virus Vaccine Quad IM, Preserv and ABX Free 6 MO-64 YRS (FLUCELVAX) 2023-11-13 00:00:00 Completed [facility] Influenza Virus Vaccine Quad IM, Preserv and ABX Free 6 MO-64 YRS 2021-09-06 00:00:00 Completed [facility] Influenza Virus Vaccine Quad IM, Preserv and ABX Free 6 MO-64 YRS 2021-09-06 00:00:00 Completed [facility] Influenza Virus Vaccine Quad IM, Preserv and ABX Free 6 MO-64 YRS 2021-09-06 00:00:00 Completed [facility] Influenza Virus Vaccine Quad IM, Preserv and ABX Free 6 MO-64 YRS 2021-09-06 00:00:00 Completed [facility] Influenza Virus Vaccine Quad IM, Preserv and ABX Free 6 MO-64 YRS 2021-09-06 00:00:00 Completed [facility] Influenza Virus Vaccine Quad IM, Preserv and ABX Free 6 MO-64 YRS 2021-09-06 00:00:00 Completed [facility] Influenza Virus Vaccine Quad IM, Preserv and ABX Free 6 MO-64 YRS 2021-09-06 00:00:00 Completed [facility] Influenza Virus Vaccine Quad IM, Preserv and ABX Free 6 MO-64 YRS 2021-09-06 00:00:00 Completed [facility] Influenza Virus Vaccine Quad IM, Preserv and ABX Free 6 MO-64 YRS 2021-09-06 00:00:00 Completed [facility] Influenza Virus Vaccine Quad IM, Preserv and ABX Free 6 MO-64 YRS 2021-09-06 00:00:00 Completed [facility] Influenza Virus Vaccine Quad IM, Preserv and ABX Free 6 MO-64 YRS 2021-09-06 00:00:00 Completed [facility] Influenza Virus Vaccine Quad IM, Preserv and ABX Free 6 MO-64 YRS 2021-09-06 00:00:00 Completed [facility] Influenza Virus Vaccine Quad IM, Preserv and ABX Free 6 MO-64 YRS 2021-09-06 00:00:00 Completed [facility] Influenza Virus Vaccine Quad IM, Preserv and ABX Free 6 MO-64 YRS 2021-09-06 00:00:00 Completed [facility] Influenza Virus Vaccine Quad IM, Preserv and ABX Free 6 MO-64 YRS (FLUCELVAX) 2021-09-06 00:00:00 Completed [facility] 2021-07-17 00:00:00 Completed [facility] TDAP 2021-07-17 00:00:00 Completed [facility] TDAP 2021-07-17 00:00:00 Completed [facility] TDAP 2021-07-17 00:00:00 Completed [facility] TDAP 2021-07-17 00:00:00 Completed [facility] TDAP 2021-07-17 00:00:00 Completed [facility] TDAP 2021-07-17 00:00:00 Completed [facility] TDAP 2021-07-17 00:00:00 Completed [facility] TDAP 2021-07-17 00:00:00 Completed [facility] TDAP 2021-07-17 00:00:00 Completed [facility] TDAP 2021-07-17 00:00:00 Completed [facility] TDAP 2021-07-17 00:00:00 Completed [facility] TDAP 2021-07-17 00:00:00 Completed [facility] TDAP 2021-07-17 00:00:00 Completed [facility] TDAP 2021-07-17 00:00:00 Completed [facility] Rho (d) Immune Globulin 2021-05-29 00:00:00 Completed [facility] Rho (d) Immune Globulin 2021-05-29 00:00:00 Completed [facility] Rho (d) Immune Globulin 2021-05-29 00:00:00 Completed [facility] Rho (d) Immune Globulin 2021-05-29 00:00:00 Completed [facility] Rho (d) Immune Globulin 2021-05-29 00:00:00 Completed [facility] Rho (d) Immune Globulin 2021-05-29 00:00:00 Completed [facility] Rho (d) Immune Globulin 2021-05-29 00:00:00 Completed [facility] Rho (d) Immune Globulin 2021-05-29 00:00:00 Completed [facility] Rho (d) Immune Globulin 2021-05-29 00:00:00 Completed [facility] Rho (d) Immune Globulin 2021-05-29 00:00:00 Completed [facility] Rho (d) Immune Globulin 2021-05-29 00:00:00 Completed [facility] Rho (d) Immune Globulin 2021-05-29 00:00:00 Completed [facility] Rho (d) Immune Globulin 2021-05-29 00:00:00 Completed [facility] Rho (d) Immune Globulin 2021-05-29 00:00:00 Completed [facility] Rho (d) Immune Globulin 2021-05-29 00:00:00 Completed [facility] MMR 2020-02-01 00:00:00 Completed [facility] Rho (d) Immune Globulin 2020-02-01 00:00:00 Completed [facility] MMR 2020-02-01 00:00:00 Completed [facility] Rho (d) Immune Globulin 2020-02-01 00:00:00 Completed [facility] MMR 2020-02-01 00:00:00 Completed [facility] Rho (d) Immune Globulin 2020-02-01 00:00:00 Completed [facility] MMR 2020-02-01 00:00:00 Completed [facility] Rho (d) Immune Globulin 2020-02-01 00:00:00 Completed [facility] MMR 2020-02-01 00:00:00 Completed [facility] Rho (d) Immune Globulin 2020-02-01 00:00:00 Completed [facility] MMR 2020-02-01 00:00:00 Completed [facility] Rho (d) Immune Globulin 2020-02-01 00:00:00 Completed [facility] MMR 2020-02-01 00:00:00 Completed [facility] Rho (d) Immune Globulin 2020-02-01 00:00:00 Completed [facility] MMR 2020-02-01 00:00:00 Completed [facility] Rho (d) Immune Globulin 2020-02-01 00:00:00 Completed [facility] MMR 2020-02-01 00:00:00 Completed [facility] Rho (d) Immune Globulin 2020-02-01 00:00:00 Completed [facility] MMR 2020-02-01 00:00:00 Completed [facility] Rho (d) Immune Globulin 2020-02-01 00:00:00 Completed [facility] MMR 2020-02-01 00:00:00 Completed [facility] Rho (d) Immune Globulin 2020-02-01 00:00:00 Completed [facility] MMR 2020-02-01 00:00:00 Completed [facility] Rho (d) Immune Globulin 2020-02-01 00:00:00 Completed [facility] MMR 2020-02-01 00:00:00 Completed [facility] Rho (d) Immune Globulin 2020-02-01 00:00:00 Completed [facility] MMR 2020-02-01 00:00:00 Completed [facility] Rho (d) Immune Globulin 2020-02-01 00:00:00 Completed [facility] MMR 2020-02-01 00:00:00 Completed [facility] Rho (d) Immune Globulin 2020-02-01 00:00:00 Completed [facility] (ADACEL) VACCINE 2019-12-08 00:00:00 Completed [facility] TDAP (ADACEL) VACCINE 2019-12-08 00:00:00 Completed [facility] TDAP (ADACEL) VACCINE 2019-12-08 00:00:00 Completed [facility] TDAP (ADACEL) VACCINE 2019-12-08 00:00:00 Completed [facility] TDAP (ADACEL) VACCINE 2019-12-08 00:00:00 Completed [facility] TDAP (ADACEL) VACCINE 2019-12-08 00:00:00 Completed [facility] TDAP (ADACEL) VACCINE 2019-12-08 00:00:00 Completed [facility] TDAP (ADACEL) VACCINE 2019-12-08 00:00:00 Completed [facility] TDAP (ADACEL) VACCINE 2019-12-08 00:00:00 Completed [facility] TDAP (ADACEL) VACCINE 2019-12-08 00:00:00 Completed [facility] TDAP (ADACEL) VACCINE 2019-12-08 00:00:00 Completed [facility] TDAP (ADACEL) VACCINE 2019-12-08 00:00:00 Completed [facility] TDAP (ADACEL) VACCINE 2019-12-08 00:00:00 Completed [facility] TDAP (ADACEL) VACCINE 2019-12-08 00:00:00 Completed [facility] TDAP (ADACEL) VACCINE 2019-12-08 00:00:00 Completed Influenza Virus Vaccine Quad .5 mL IM 6+ MO 2019-08-18 00:00:00 Completed [facility] Influenza Virus Vaccine 2019-08-18 00:00:00 Completed [facility] Influenza Virus Vaccine Quad .5 mL IM 6+ MO 2019-08-18 00:00:00 Completed [facility] Influenza Virus Vaccine 2019-08-18 00:00:00 Completed [facility] Influenza Virus Vaccine Quad .5 mL IM 6+ MO 2019-08-18 00:00:00 Completed [facility] Influenza Virus Vaccine 2019-08-18 00:00:00 Completed [facility] Influenza Virus Vaccine Quad .5 mL IM 6+ MO 2019-08-18 00:00:00 Completed [facility] Influenza Virus Vaccine 2019-08-18 00:00:00 Completed [facility] Influenza Virus Vaccine Quad .5 mL IM 6+ MO 2019-08-18 00:00:00 Completed [facility] Influenza Virus Vaccine 2019-08-18 00:00:00 Completed [facility] Influenza Virus Vaccine Quad .5 mL IM 6+ MO 2019-08-18 00:00:00 Completed [facility] Influenza Virus Vaccine 2019-08-18 00:00:00 Completed [facility] Influenza Virus Vaccine Quad .5 mL IM 6+ MO 2019-08-18 00:00:00 Completed [facility] Influenza Virus Vaccine 2019-08-18 00:00:00 Completed [facility] Influenza Virus Vaccine Quad .5 mL IM 6+ MO 2019-08-18 00:00:00 Completed [facility] Influenza Virus Vaccine 2019-08-18 00:00:00 Completed [facility] Influenza Virus Vaccine Quad .5 mL IM 6+ MO 2019-08-18 00:00:00 Completed [facility] Influenza Virus Vaccine 2019-08-18 00:00:00 Completed [facility] Influenza Virus Vaccine Quad .5 mL IM 6+ MO 2019-08-18 00:00:00 Completed [facility] Influenza Virus Vaccine 2019-08-18 00:00:00 Completed [facility] Influenza Virus Vaccine Quad .5 mL IM 6+ MO 2019-08-18 00:00:00 Completed [facility] Influenza Virus Vaccine 2019-08-18 00:00:00 Completed [facility] Influenza Virus Vaccine Quad .5 mL IM 6+ MO 2019-08-18 00:00:00 Completed [facility] Influenza Virus Vaccine 2019-08-18 00:00:00 Completed [facility] Influenza Virus Vaccine Quad .5 mL IM 6+ MO 2019-08-18 00:00:00 Completed [facility] Influenza Virus Vaccine 2019-08-18 00:00:00 Completed [facility] Influenza Virus Vaccine Quad .5 mL IM 6+ MO 2019-08-18 00:00:00 Completed [facility] Influenza Virus Vaccine 2019-08-18 00:00:00 Completed [facility] Influenza Virus Vaccine Quad .5 mL IM 6+ MO (FLUZONE/FLULAVAL/FL UARIX) 2019-08-18 00:00:00 Completed Influenza Virus Vaccine 2019-08-18 00:00:00 Completed Rho (d) Immune Globulin 2019-07-27 00:00:00 Completed [facility] Rho (d) Immune Globulin 2019-07-27 00:00:00 Completed [facility] Rho (d) Immune Globulin 2019-07-27 00:00:00 Completed [facility] Rho (d) Immune Globulin 2019-07-27 00:00:00 Completed [facility] Rho (d) Immune Globulin 2019-07-27 00:00:00 Completed [facility] Rho (d) Immune Globulin 2019-07-27 00:00:00 Completed [facility] Rho (d) Immune Globulin 2019-07-27 00:00:00 Completed [facility] Rho (d) Immune Globulin 2019-07-27 00:00:00 Completed [facility] Rho (d) Immune Globulin 2019-07-27 00:00:00 Completed [facility] Rho (d) Immune Globulin 2019-07-27 00:00:00 Completed [facility] Rho (d) Immune Globulin 2019-07-27 00:00:00 Completed [facility] Rho (d) Immune Globulin 2019-07-27 00:00:00 Completed [facility] Rho (d) Immune Globulin 2019-07-27 00:00:00 Completed [facility] Rho (d) Immune Globulin 2019-07-27 00:00:00 Completed [facility] Rho (d) Immune Globulin 2019-07-27 00:00:00 Completed [facility] Influenza Virus Vaccine Quad IM 3+ YRS 2018-09-10 00:00:00 Completed [facility] Influenza Virus Vaccine Quad IM 3+ YRS 2018-09-10 00:00:00 Completed [facility] Influenza Virus Vaccine Quad IM 3+ YRS 2018-09-10 00:00:00 Completed [facility] Influenza Virus Vaccine Quad IM 3+ YRS 2018-09-10 00:00:00 Completed [facility] Influenza Virus Vaccine Quad IM 3+ YRS 2018-09-10 00:00:00 Completed [facility] Influenza Virus Vaccine Quad IM 3+ YRS 2018-09-10 00:00:00 Completed [facility] Influenza Virus Vaccine Quad IM 3+ YRS 2018-09-10 00:00:00 Completed [facility] Influenza Virus Vaccine Quad IM 3+ YRS 2018-09-10 00:00:00 Completed [facility] Influenza Virus Vaccine Quad IM 3+ YRS 2018-09-10 00:00:00 Completed [facility] Influenza Virus Vaccine Quad IM 3+ YRS 2018-09-10 00:00:00 Completed [facility] Influenza Virus Vaccine Quad IM 3+ YRS 2018-09-10 00:00:00 Completed [facility] Influenza Virus Vaccine Quad IM 3+ YRS 2018-09-10 00:00:00 Completed [facility] Influenza Virus Vaccine Quad IM 3+ YRS 2018-09-10 00:00:00 Completed [facility] Influenza Virus Vaccine Quad IM 3+ YRS 2018-09-10 00:00:00 Completed [facility] Influenza Virus Vaccine Quad IM 3+ YRS 2018-09-10 00:00:00 Completed Influenza Virus Vaccine Quad IM 3+ YRS 2017-09-12 00:00:00 Completed [facility] Influenza Virus Vaccine Quad IM 3+ YRS 2017-09-12 00:00:00 Completed [facility] Influenza Virus Vaccine Quad IM 3+ YRS 2017-09-12 00:00:00 Completed [facility] Influenza Virus Vaccine Quad IM 3+ YRS 2017-09-12 00:00:00 Completed [facility] Influenza Virus Vaccine Quad IM 3+ YRS 2017-09-12 00:00:00 Completed [facility] Influenza Virus Vaccine Quad IM 3+ YRS 2017-09-12 00:00:00 Completed [facility] Influenza Virus Vaccine Quad IM 3+ YRS 2017-09-12 00:00:00 Completed [facility] Influenza Virus Vaccine Quad IM 3+ YRS 2017-09-12 00:00:00 Completed [facility] Influenza Virus Vaccine Quad IM 3+ YRS 2017-09-12 00:00:00 Completed [facility] Influenza Virus Vaccine Quad IM 3+ YRS 2017-09-12 00:00:00 Completed [facility] Influenza Virus Vaccine Quad IM 3+ YRS 2017-09-12 00:00:00 Completed [facility] Influenza Virus Vaccine Quad IM 3+ YRS 2017-09-12 00:00:00 Completed [facility] Influenza Virus Vaccine Quad IM 3+ YRS 2017-09-12 00:00:00 Completed [facility] Influenza Virus Vaccine Quad IM 3+ YRS 2017-09-12 00:00:00 Completed [facility] Influenza Virus Vaccine Quad IM 3+ YRS 2017-09-12 00:00:00 Completed Influenza Virus Vaccine Nasal 2015-10-13 00:00:00 Completed [facility] Influenza Virus Vaccine Nasal 2015-10-13 00:00:00 Completed [facility] Influenza Virus Vaccine Nasal 2015-10-13 00:00:00 Completed [facility] Influenza Virus Vaccine Nasal 2015-10-13 00:00:00 Completed [facility] Influenza Virus Vaccine Nasal 2015-10-13 00:00:00 Completed [facility] Influenza Virus Vaccine Nasal 2015-10-13 00:00:00 Completed [facility] Influenza Virus Vaccine Nasal 2015-10-13 00:00:00 Completed [facility] Influenza Virus Vaccine Nasal 2015-10-13 00:00:00 Completed [facility] Influenza Virus Vaccine Nasal 2015-10-13 00:00:00 Completed [facility] Influenza Virus Vaccine Nasal 2015-10-13 00:00:00 Completed [facility] Influenza Virus Vaccine Nasal 2015-10-13 00:00:00 Completed [facility] Influenza Virus Vaccine Nasal 2015-10-13 00:00:00 Completed [facility] Influenza Virus Vaccine Nasal 2015-10-13 00:00:00 Completed [facility] Influenza Virus Vaccine Nasal 2015-10-13 00:00:00 Completed [facility] Influenza, Live, Trivalent, Intranasal (FLUMIST) 2015-10-13 00:00:00 Completed Influenza Virus Vaccine Quad Nasal (Flumist) 2015-10-13 00:00:00 Completed Influenza Virus Vaccine 2014-09-02 00:00:00 Completed [facility] Influenza Virus Vaccine 2014-09-02 00:00:00 Completed [facility] Influenza Virus Vaccine 2014-09-02 00:00:00 Completed [facility] Influenza Virus Vaccine 2014-09-02 00:00:00 Completed [facility] Influenza Virus Vaccine 2014-09-02 00:00:00 Completed [facility] Influenza Virus Vaccine 2014-09-02 00:00:00 Completed [facility] Influenza Virus Vaccine 2014-09-02 00:00:00 Completed [facility] Influenza Virus Vaccine 2014-09-02 00:00:00 Completed [facility] Influenza Virus Vaccine 2014-09-02 00:00:00 Completed [facility] Influenza Virus Vaccine 2014-09-02 00:00:00 Completed [facility] Influenza Virus Vaccine 2014-09-02 00:00:00 Completed [facility] Influenza Virus Vaccine 2014-09-02 00:00:00 Completed [facility] Influenza Virus Vaccine 2014-09-02 00:00:00 Completed [facility] Influenza Virus Vaccine 2014-09-02 00:00:00 Completed [facility] Influenza Virus Vaccine 2014-09-02 00:00:00 Completed [facility] Influenza Virus Vaccine Quad .5 mL IM 6+ MO (FLUZONE/FLULAVAL/FL UARIX) 2014-09-02 00:00:00 Completed HPV 2014-01-18 00:00:00 Completed [facility] Meningococcal Vaccine 2014-01-18 00:00:00 Completed [facility] Varicella (varivax)(chicken pox) 2014-01-18 00:00:00 Completed [facility] TDAP 2014-01-18 00:00:00 Completed [facility] Meningococcal Polysaccharide (groups A, C, Y and W-135) conjugate vaccine (MCV4P) 2014-01-18 00:00:00 Completed [facility] HPV 2014-01-18 00:00:00 Completed [facility] Meningococcal Vaccine 2014-01-18 00:00:00 Completed [facility] Varicella (varivax)(chicken pox) 2014-01-18 00:00:00 Completed [facility] TDAP 2014-01-18 00:00:00 Completed [facility] Meningococcal Polysaccharide (groups A, C, Y and W-135) conjugate vaccine (MCV4P) 2014-01-18 00:00:00 Completed [facility] HPV 2014-01-18 00:00:00 Completed [facility] Meningococcal Vaccine 2014-01-18 00:00:00 Completed [facility] Varicella (varivax)(chicken pox) 2014-01-18 00:00:00 Completed [facility] TDAP 2014-01-18 00:00:00 Completed [facility] Meningococcal Polysaccharide (groups A, C, Y and W-135) conjugate vaccine (MCV4P) 2014-01-18 00:00:00 Completed [facility] HPV 2014-01-18 00:00:00 Completed [facility] Meningococcal Vaccine 2014-01-18 00:00:00 Completed [facility] Varicella (varivax)(chicken pox) 2014-01-18 00:00:00 Completed [facility] TDAP 2014-01-18 00:00:00 Completed [facility] Meningococcal Polysaccharide (groups A, C, Y and W-135) conjugate vaccine (MCV4P) 2014-01-18 00:00:00 Completed [facility] HPV 2014-01-18 00:00:00 Completed [facility] Meningococcal Vaccine 2014-01-18 00:00:00 Completed [facility] Varicella (varivax)(chicken pox) 2014-01-18 00:00:00 Completed [facility] TDAP 2014-01-18 00:00:00 Completed [facility] Meningococcal Polysaccharide (groups A, C, Y and W-135) conjugate vaccine (MCV4P) 2014-01-18 00:00:00 Completed [facility] HPV 2014-01-18 00:00:00 Completed [facility] Meningococcal Vaccine 2014-01-18 00:00:00 Completed [facility] Varicella (varivax)(chicken pox) 2014-01-18 00:00:00 Completed [facility] TDAP 2014-01-18 00:00:00 Completed [facility] Meningococcal Polysaccharide (groups A, C, Y and W-135) conjugate vaccine (MCV4P) 2014-01-18 00:00:00 Completed [facility] HPV 2014-01-18 00:00:00 Completed [facility] Meningococcal Vaccine 2014-01-18 00:00:00 Completed [facility] Varicella (varivax)(chicken pox) 2014-01-18 00:00:00 Completed [facility] TDAP 2014-01-18 00:00:00 Completed [facility] Meningococcal Polysaccharide (groups A, C, Y and W-135) conjugate vaccine (MCV4P) 2014-01-18 00:00:00 Completed [facility] HPV 2014-01-18 00:00:00 Completed [facility] Meningococcal Vaccine 2014-01-18 00:00:00 Completed [facility] Varicella (varivax)(chicken pox) 2014-01-18 00:00:00 Completed [facility] TDAP 2014-01-18 00:00:00 Completed [facility] Meningococcal Polysaccharide (groups A, C, Y and W-135) conjugate vaccine (MCV4P) 2014-01-18 00:00:00 Completed [facility] HPV 2014-01-18 00:00:00 Completed [facility] Meningococcal Vaccine 2014-01-18 00:00:00 Completed [facility] Varicella (varivax)(chicken pox) 2014-01-18 00:00:00 Completed [facility] TDAP 2014-01-18 00:00:00 Completed [facility] Meningococcal Polysaccharide (groups A, C, Y and W-135) conjugate vaccine (MCV4P) 2014-01-18 00:00:00 Completed [facility] HPV 2014-01-18 00:00:00 Completed [facility] Meningococcal Vaccine 2014-01-18 00:00:00 Completed [facility] Varicella (varivax)(chicken pox) 2014-01-18 00:00:00 Completed [facility] TDAP 2014-01-18 00:00:00 Completed [facility] Meningococcal Polysaccharide (groups A, C, Y and W-135) conjugate vaccine (MCV4P) 2014-01-18 00:00:00 Completed [facility] HPV 2014-01-18 00:00:00 Completed [facility] Meningococcal Vaccine 2014-01-18 00:00:00 Completed [facility] Varicella (varivax)(chicken pox) 2014-01-18 00:00:00 Completed [facility] TDAP 2014-01-18 00:00:00 Completed [facility] Meningococcal Polysaccharide (groups A, C, Y and W-135) conjugate vaccine (MCV4P) 2014-01-18 00:00:00 Completed [facility] HPV 2014-01-18 00:00:00 Completed [facility] Meningococcal Vaccine 2014-01-18 00:00:00 Completed [facility] Varicella (varivax)(chicken pox) 2014-01-18 00:00:00 Completed [facility] TDAP 2014-01-18 00:00:00 Completed [facility] Meningococcal Polysaccharide (groups A, C, Y and W-135) conjugate vaccine (MCV4P) 2014-01-18 00:00:00 Completed [facility] HPV 2014-01-18 00:00:00 Completed [facility] Meningococcal Vaccine 2014-01-18 00:00:00 Completed [facility] Varicella (varivax)(chicken pox) 2014-01-18 00:00:00 Completed [facility] TDAP 2014-01-18 00:00:00 Completed [facility] Meningococcal Polysaccharide (groups A, C, Y and W-135) conjugate vaccine (MCV4P) 2014-01-18 00:00:00 Completed [facility] HPV 2014-01-18 00:00:00 Completed [facility] Meningococcal Vaccine 2014-01-18 00:00:00 Completed [facility] Varicella (varivax)(chicken pox) 2014-01-18 00:00:00 Completed [facility] TDAP 2014-01-18 00:00:00 Completed [facility] Meningococcal Polysaccharide (groups A, C, Y and W-135) conjugate vaccine (MCV4P) 2014-01-18 00:00:00 Completed [facility] HPV 2014-01-18 00:00:00 Completed Meningococcal Vaccine 2014-01-18 00:00:00 Completed Varicella (varivax)(chicken pox) 2014-01-18 00:00:00 Completed TDAP 2014-01-18 00:00:00 Completed Meningococcal Polysaccharide (groups A, C, Y and W-135) conjugate vaccine (MCV4P) 2014-01-18 00:00:00 Completed Influenza Virus Vaccine 2013-09-23 00:00:00 Completed [facility] Influenza Virus Vaccine 2013-09-23 00:00:00 Completed [facility] Influenza Virus Vaccine 2013-09-23 00:00:00 Completed [facility] Influenza Virus Vaccine 2013-09-23 00:00:00 Completed [facility] Influenza Virus Vaccine 2013-09-23 00:00:00 Completed [facility] Influenza Virus Vaccine 2013-09-23 00:00:00 Completed [facility] Influenza Virus Vaccine 2013-09-23 00:00:00 Completed [facility] Influenza Virus Vaccine 2013-09-23 00:00:00 Completed [facility] Influenza Virus Vaccine 2013-09-23 00:00:00 Completed [facility] Influenza Virus Vaccine 2013-09-23 00:00:00 Completed [facility] Influenza Virus Vaccine 2013-09-23 00:00:00 Completed [facility] Influenza Virus Vaccine 2013-09-23 00:00:00 Completed [facility] Influenza Virus Vaccine 2013-09-23 00:00:00 Completed [facility] Influenza Virus Vaccine 2013-09-23 00:00:00 Completed [facility] Influenza Virus Vaccine 2013-09-23 00:00:00 Completed Influenza Virus Vaccine Quad .5 mL IM 6+ MO (FLUZONE/FLULAVAL/FL UARIX) 2013-09-23 00:00:00 Completed Influenza Virus Vaccine 2012-11-24 00:00:00 Completed [facility] Influenza Virus Vaccine 2012-11-24 00:00:00 Completed [facility] Influenza Virus Vaccine 2012-11-24 00:00:00 Completed [facility] Influenza Virus Vaccine 2012-11-24 00:00:00 Completed [facility] Influenza Virus Vaccine 2012-11-24 00:00:00 Completed [facility] Influenza Virus Vaccine 2012-11-24 00:00:00 Completed [facility] Influenza Virus Vaccine 2012-11-24 00:00:00 Completed [facility] Influenza Virus Vaccine 2012-11-24 00:00:00 Completed [facility] Influenza Virus Vaccine 2012-11-24 00:00:00 Completed [facility] Influenza Virus Vaccine 2012-11-24 00:00:00 Completed [facility] Influenza Virus Vaccine 2012-11-24 00:00:00 Completed [facility] Influenza Virus Vaccine 2012-11-24 00:00:00 Completed [facility] Influenza Virus Vaccine 2012-11-24 00:00:00 Completed [facility] Influenza Virus Vaccine 2012-11-24 00:00:00 Completed [facility] Influenza Virus Vaccine 2012-11-24 00:00:00 Completed Influenza, adjuvanted, trivalent, PF (FLUAD) 2012-11-24 00:00:00 Completed Influenza, split virus, trivalent, PF (AFLURIA/FLUARIX/FLU LAVAL/FLUZONE) 2012-11-24 00:00:00 Completed Influenza Virus Vaccine Nasal 2011-08-23 00:00:00 Completed [facility] Influenza Virus Vaccine Nasal 2011-08-23 00:00:00 Completed [facility] Influenza Virus Vaccine Nasal 2011-08-23 00:00:00 Completed [facility] Influenza Virus Vaccine Nasal 2011-08-23 00:00:00 Completed [facility] Influenza Virus Vaccine Nasal 2011-08-23 00:00:00 Completed [facility] Influenza Virus Vaccine Nasal 2011-08-23 00:00:00 Completed [facility] Influenza Virus Vaccine Nasal 2011-08-23 00:00:00 Completed [facility] Influenza Virus Vaccine Nasal 2011-08-23 00:00:00 Completed [facility] Influenza Virus Vaccine Nasal 2011-08-23 00:00:00 Completed [facility] Influenza Virus Vaccine Nasal 2011-08-23 00:00:00 Completed [facility] Influenza Virus Vaccine Nasal 2011-08-23 00:00:00 Completed [facility] Influenza Virus Vaccine Nasal 2011-08-23 00:00:00 Completed [facility] Influenza Virus Vaccine Nasal 2011-08-23 00:00:00 Completed [facility] Influenza Virus Vaccine Nasal 2011-08-23 00:00:00 Completed [facility] Influenza, Live, Trivalent, Intranasal (FLUMIST) 2011-08-23 00:00:00 Completed HPV 2011-07-04 00:00:00 Completed [facility] HPV 2011-07-04 00:00:00 Completed [facility] HPV 2011-07-04 00:00:00 Completed [facility] HPV 2011-07-04 00:00:00 Completed [facility] HPV 2011-07-04 00:00:00 Completed [facility] HPV 2011-07-04 00:00:00 Completed [facility] HPV 2011-07-04 00:00:00 Completed [facility] HPV 2011-07-04 00:00:00 Completed [facility] HPV 2011-07-04 00:00:00 Completed [facility] HPV 2011-07-04 00:00:00 Completed [facility] HPV 2011-07-04 00:00:00 Completed [facility] HPV 2011-07-04 00:00:00 Completed [facility] HPV 2011-07-04 00:00:00 Completed [facility] HPV 2011-07-04 00:00:00 Completed [facility] HPV 2011-07-04 00:00:00 Completed Influenza Virus Vaccine 2010-09-06 00:00:00 Completed [facility] Influenza Virus Vaccine 2010-09-06 00:00:00 Completed [facility] Influenza Virus Vaccine 2010-09-06 00:00:00 Completed [facility] Influenza Virus Vaccine 2010-09-06 00:00:00 Completed [facility] Influenza Virus Vaccine 2010-09-06 00:00:00 Completed [facility] Influenza Virus Vaccine 2010-09-06 00:00:00 Completed [facility] Influenza Virus Vaccine 2010-09-06 00:00:00 Completed [facility] Influenza Virus Vaccine 2010-09-06 00:00:00 Completed [facility] Influenza Virus Vaccine 2010-09-06 00:00:00 Completed [facility] Influenza Virus Vaccine 2010-09-06 00:00:00 Completed [facility] Influenza Virus Vaccine 2010-09-06 00:00:00 Completed [facility] Influenza Virus Vaccine 2010-09-06 00:00:00 Completed [facility] Influenza Virus Vaccine 2010-09-06 00:00:00 Completed [facility] Influenza Virus Vaccine 2010-09-06 00:00:00 Completed [facility] Influenza Virus Vaccine 2010-09-06 00:00:00 Completed Flu Whole Virus 2010-09-06 00:00:00 Completed HEPATITIS A 2006-12-16 00:00:00 Completed [facility] HEPATITIS A 2006-12-16 00:00:00 Completed [facility] HEPATITIS A 2006-12-16 00:00:00 Completed [facility] HEPATITIS A 2006-12-16 00:00:00 Completed [facility] HEPATITIS A 2006-12-16 00:00:00 Completed [facility] HEPATITIS A 2006-12-16 00:00:00 Completed [facility] HEPATITIS A 2006-12-16 00:00:00 Completed [facility] HEPATITIS A 2006-12-16 00:00:00 Completed [facility] HEPATITIS A 2006-12-16 00:00:00 Completed [facility] HEPATITIS A 2006-12-16 00:00:00 Completed [facility] HEPATITIS A 2006-12-16 00:00:00 Completed [facility] HEPATITIS A 2006-12-16 00:00:00 Completed [facility] HEPATITIS A 2006-12-16 00:00:00 Completed [facility] HEPATITIS A 2006-12-16 00:00:00 Completed [facility] HEPATITIS A 2006-12-16 00:00:00 Completed HEPATITIS A 2005-10-11 00:00:00 Completed [facility] HEPATITIS A 2005-10-11 00:00:00 Completed [facility] HEPATITIS A 2005-10-11 00:00:00 Completed [facility] HEPATITIS A 2005-10-11 00:00:00 Completed [facility] HEPATITIS A 2005-10-11 00:00:00 Completed [facility] HEPATITIS A 2005-10-11 00:00:00 Completed [facility] HEPATITIS A 2005-10-11 00:00:00 Completed [facility] HEPATITIS A 2005-10-11 00:00:00 Completed [facility] HEPATITIS A 2005-10-11 00:00:00 Completed [facility] HEPATITIS A 2005-10-11 00:00:00 Completed [facility] HEPATITIS A 2005-10-11 00:00:00 Completed [facility] HEPATITIS A 2005-10-11 00:00:00 Completed [facility] HEPATITIS A 2005-10-11 00:00:00 Completed [facility] HEPATITIS A 2005-10-11 00:00:00 Completed [facility] HEPATITIS A 2005-10-11 00:00:00 Completed Influenza Virus Vaccine 2003-09-06 00:00:00 Completed [facility] Influenza Virus Vaccine 2003-09-06 00:00:00 Completed [facility] Influenza Virus Vaccine 2003-09-06 00:00:00 Completed [facility] Influenza Virus Vaccine 2003-09-06 00:00:00 Completed [facility] Influenza Virus Vaccine 2003-09-06 00:00:00 Completed [facility] Influenza Virus Vaccine 2003-09-06 00:00:00 Completed [facility] Influenza Virus Vaccine 2003-09-06 00:00:00 Completed [facility] Influenza Virus Vaccine 2003-09-06 00:00:00 Completed [facility] Influenza Virus Vaccine 2003-09-06 00:00:00 Completed [facility] Influenza Virus Vaccine 2003-09-06 00:00:00 Completed [facility] Influenza Virus Vaccine 2003-09-06 00:00:00 Completed [facility] Influenza Virus Vaccine 2003-09-06 00:00:00 Completed [facility] Influenza Virus Vaccine 2003-09-06 00:00:00 Completed [facility] Influenza Virus Vaccine 2003-09-06 00:00:00 Completed [facility] Influenza Virus Vaccine 2003-09-06 00:00:00 Completed Influenza, adjuvanted, trivalent, PF (FLUAD) 2003-09-06 00:00:00 Completed Influenza, split virus, trivalent, PF (AFLURIA/FLUARIX/FLU LAVAL/FLUZONE) 2003-09-06 00:00:00 Completed DTAP 2003-02-08 00:00:00 [facility] [facility] Dose Schedule 2003-02-08 00:00:00 Completed [facility] TDAP 2003-02-08 00:00:00 Completed [facility] DTAP 2003-02-08 00:00:00 Completed [facility] HIB 4 Dose Schedule 2003-02-08 00:00:00 Completed [facility] TDAP 2003-02-08 00:00:00 Completed [facility] DTAP 2003-02-08 00:00:00 Completed [facility] TDAP 2003-02-08 00:00:00 Completed [facility] Heamophilus Influenza B 2003-02-08 00:00:00 Completed [facility] DTAP 2003-02-08 00:00:00 Completed [facility] TDAP 2003-02-08 00:00:00 Completed [facility] Heamophilus Influenza B 2003-02-08 00:00:00 Completed [facility] DTAP 2003-02-08 00:00:00 Completed [facility] HIB 4 Dose Schedule 2003-02-08 00:00:00 Completed [facility] TDAP 2003-02-08 00:00:00 Completed [facility] DTAP 2003-02-08 00:00:00 Completed [facility] TDAP 2003-02-08 00:00:00 Completed [facility] Heamophilus Influenza B 2003-02-08 00:00:00 Completed [facility] DTAP 2003-02-08 00:00:00 Completed [facility] HIB 4 Dose Schedule 2003-02-08 00:00:00 Completed [facility] TDAP 2003-02-08 00:00:00 Completed [facility] DTAP 2003-02-08 00:00:00 Completed [facility] HIB 4 Dose Schedule 2003-02-08 00:00:00 Completed [facility] TDAP 2003-02-08 00:00:00 Completed [facility] DTAP 2003-02-08 00:00:00 Completed [facility] HIB 4 Dose Schedule 2003-02-08 00:00:00 Completed [facility] TDAP 2003-02-08 00:00:00 Completed [facility] DTAP 2003-02-08 00:00:00 Completed [facility] HIB 4 Dose Schedule 2003-02-08 00:00:00 Completed [facility] TDAP 2003-02-08 00:00:00 Completed [facility] DTAP 2003-02-08 00:00:00 Completed [facility] HIB 4 Dose Schedule 2003-02-08 00:00:00 Completed [facility] TDAP 2003-02-08 00:00:00 Completed [facility] DTAP 2003-02-08 00:00:00 Completed [facility] HIB 4 Dose Schedule 2003-02-08 00:00:00 Completed [facility] TDAP 2003-02-08 00:00:00 Completed [facility] DTAP 2003-02-08 00:00:00 Completed [facility] HIB 4 Dose Schedule 2003-02-08 00:00:00 Completed [facility] TDAP 2003-02-08 00:00:00 Completed [facility] DTAP 2003-02-08 00:00:00 Completed [facility] HIB 4 Dose Schedule 2003-02-08 00:00:00 Completed [facility] TDAP 2003-02-08 00:00:00 Completed [facility] DTAP 2003-02-08 00:00:00 Completed Heamophilus Influenza B 2003-02-08 00:00:00 Completed TDAP 2003-02-08 00:00:00 Completed DTaP, Unspecified Formulation 2003-02-08 00:00:00 Completed Varicella (varivax)(chicken pox) 2002-11-23 00:00:00 Completed [facility] MMR 2002-11-23 00:00:00 Completed [facility] IPV 2002-11-23 00:00:00 Completed [facility] Varicella (varivax)(chicken pox) 2002-11-23 00:00:00 Completed [facility] MMR 2002-11-23 00:00:00 Completed [facility] IPV 2002-11-23 00:00:00 Completed [facility] Varicella (varivax)(chicken pox) 2002-11-23 00:00:00 Completed [facility] MMR 2002-11-23 00:00:00 Completed [facility] IPV 2002-11-23 00:00:00 Completed [facility] Varicella (varivax)(chicken pox) 2002-11-23 00:00:00 Completed [facility] MMR 2002-11-23 00:00:00 Completed [facility] IPV 2002-11-23 00:00:00 Completed [facility] Varicella (varivax)(chicken pox) 2002-11-23 00:00:00 Completed [facility] MMR 2002-11-23 00:00:00 Completed [facility] IPV 2002-11-23 00:00:00 Completed [facility] Varicella (varivax)(chicken pox) 2002-11-23 00:00:00 Completed [facility] MMR 2002-11-23 00:00:00 Completed [facility] IPV 2002-11-23 00:00:00 Completed [facility] Varicella (varivax)(chicken pox) 2002-11-23 00:00:00 Completed [facility] MMR 2002-11-23 00:00:00 Completed [facility] IPV 2002-11-23 00:00:00 Completed [facility] Varicella (varivax)(chicken pox) 2002-11-23 00:00:00 Completed [facility] MMR 2002-11-23 00:00:00 Completed [facility] IPV 2002-11-23 00:00:00 Completed [facility] Varicella (varivax)(chicken pox) 2002-11-23 00:00:00 Completed [facility] MMR 2002-11-23 00:00:00 Completed [facility] IPV 2002-11-23 00:00:00 Completed [facility] Varicella (varivax)(chicken pox) 2002-11-23 00:00:00 Completed [facility] MMR 2002-11-23 00:00:00 Completed [facility] IPV 2002-11-23 00:00:00 Completed [facility] Varicella (varivax)(chicken pox) 2002-11-23 00:00:00 Completed [facility] MMR 2002-11-23 00:00:00 Completed [facility] IPV 2002-11-23 00:00:00 Completed [facility] Varicella (varivax)(chicken pox) 2002-11-23 00:00:00 Completed [facility] MMR 2002-11-23 00:00:00 Completed [facility] IPV 2002-11-23 00:00:00 Completed [facility] Varicella (varivax)(chicken pox) 2002-11-23 00:00:00 Completed [facility] MMR 2002-11-23 00:00:00 Completed [facility] IPV 2002-11-23 00:00:00 Completed [facility] Varicella (varivax)(chicken pox) 2002-11-23 00:00:00 Completed [facility] MMR 2002-11-23 00:00:00 Completed [facility] IPV 2002-11-23 00:00:00 Completed [facility] Varicella (varivax)(chicken pox) 2002-11-23 00:00:00 Completed MMR 2002-11-23 00:00:00 Completed IPV 2002-11-23 00:00:00 Completed DTAP 2002-08-03 00:00:00 Completed [facility] HIB 4 Dose Schedule 2002-08-03 00:00:00 Completed [facility] Hep B, Adol or Pedi Dosage 2002-08-03 00:00:00 Completed [facility] TDAP 2002-08-03 00:00:00 Completed [facility] DTAP 2002-08-03 00:00:00 Completed [facility] HIB 4 Dose Schedule 2002-08-03 00:00:00 Completed [facility] Hep B, Adol or Pedi Dosage 2002-08-03 00:00:00 Completed [facility] TDAP 2002-08-03 00:00:00 Completed [facility] DTAP 2002-08-03 00:00:00 Completed [facility] Hep B, Adol or Pedi Dosage 2002-08-03 00:00:00 Completed [facility] TDAP 2002-08-03 00:00:00 Completed [facility] Heamophilus Influenza B 2002-08-03 00:00:00 Completed [facility] DTAP 2002-08-03 00:00:00 Completed [facility] Hep B, Adol or Pedi Dosage 2002-08-03 00:00:00 Completed [facility] TDAP 2002-08-03 00:00:00 Completed [facility] Heamophilus Influenza B 2002-08-03 00:00:00 Completed [facility] DTAP 2002-08-03 00:00:00 Completed [facility] HIB 4 Dose Schedule 2002-08-03 00:00:00 Completed [facility] Hep B, Adol or Pedi Dosage 2002-08-03 00:00:00 Completed [facility] TDAP 2002-08-03 00:00:00 Completed [facility] DTAP 2002-08-03 00:00:00 Completed [facility] Hep B, Adol or Pedi Dosage 2002-08-03 00:00:00 Completed [facility] TDAP 2002-08-03 00:00:00 Completed [facility] Heamophilus Influenza B 2002-08-03 00:00:00 Completed [facility] DTAP 2002-08-03 00:00:00 Completed [facility] HIB 4 Dose Schedule 2002-08-03 00:00:00 Completed [facility] Hep B, Adol or Pedi Dosage 2002-08-03 00:00:00 Completed [facility] TDAP 2002-08-03 00:00:00 Completed [facility] DTAP 2002-08-03 00:00:00 Completed [facility] HIB 4 Dose Schedule 2002-08-03 00:00:00 Completed [facility] Hep B, Adol or Pedi Dosage 2002-08-03 00:00:00 Completed [facility] TDAP 2002-08-03 00:00:00 Completed [facility] DTAP 2002-08-03 00:00:00 Completed [facility] HIB 4 Dose Schedule 2002-08-03 00:00:00 Completed [facility] Hep B, Adol or Pedi Dosage 2002-08-03 00:00:00 Completed [facility] TDAP 2002-08-03 00:00:00 Completed [facility] DTAP 2002-08-03 00:00:00 Completed [facility] HIB 4 Dose Schedule 2002-08-03 00:00:00 Completed [facility] Hep B, Adol or Pedi Dosage 2002-08-03 00:00:00 Completed [facility] TDAP 2002-08-03 00:00:00 Completed [facility] DTAP 2002-08-03 00:00:00 Completed [facility] HIB 4 Dose Schedule 2002-08-03 00:00:00 Completed [facility] Hep B, Adol or Pedi Dosage 2002-08-03 00:00:00 Completed [facility] TDAP 2002-08-03 00:00:00 Completed [facility] DTAP 2002-08-03 00:00:00 Completed [facility] HIB 4 Dose Schedule 2002-08-03 00:00:00 Completed [facility] Hep B, Adol or Pedi Dosage 2002-08-03 00:00:00 Completed [facility] TDAP 2002-08-03 00:00:00 Completed [facility] DTAP 2002-08-03 00:00:00 Completed [facility] HIB 4 Dose Schedule 2002-08-03 00:00:00 Completed [facility] Hep B, Adol or Pedi Dosage 2002-08-03 00:00:00 Completed [facility] TDAP 2002-08-03 00:00:00 Completed [facility] DTAP 2002-08-03 00:00:00 Completed [facility] HIB 4 Dose Schedule 2002-08-03 00:00:00 Completed [facility] Hep B, Adol or Pedi Dosage 2002-08-03 00:00:00 Completed [facility] TDAP 2002-08-03 00:00:00 Completed [facility] DTAP 2002-08-03 00:00:00 Completed Heamophilus Influenza B 2002-08-03 00:00:00 Completed Hep B, Adol or Pedi Dosage 2002-08-03 00:00:00 Completed TDAP 2002-08-03 00:00:00 Completed DTaP, Unspecified Formulation 2002-08-03 00:00:00 Completed DTAP 2002-03-15 00:00:00 Completed [facility] HIB 4 Dose Schedule 2002-03-15 00:00:00 Completed [facility] TDAP 2002-03-15 00:00:00 Completed [facility] IPV 2002-03-15 00:00:00 Completed [facility] DTAP 2002-03-15 00:00:00 Completed [facility] HIB 4 Dose Schedule 2002-03-15 00:00:00 Completed [facility] TDAP 2002-03-15 00:00:00 Completed [facility] IPV 2002-03-15 00:00:00 Completed [facility] DTAP 2002-03-15 00:00:00 Completed [facility] TDAP 2002-03-15 00:00:00 Completed [facility] IPV 2002-03-15 00:00:00 Completed [facility] Heamophilus Influenza B 2002-03-15 00:00:00 Completed [facility] DTAP 2002-03-15 00:00:00 Completed [facility] TDAP 2002-03-15 00:00:00 Completed [facility] IPV 2002-03-15 00:00:00 Completed [facility] Heamophilus Influenza B 2002-03-15 00:00:00 Completed [facility] DTAP 2002-03-15 00:00:00 Completed [facility] HIB 4 Dose Schedule 2002-03-15 00:00:00 Completed [facility] TDAP 2002-03-15 00:00:00 Completed [facility] IPV 2002-03-15 00:00:00 Completed [facility] DTAP 2002-03-15 00:00:00 Completed [facility] TDAP 2002-03-15 00:00:00 Completed [facility] IPV 2002-03-15 00:00:00 Completed [facility] Heamophilus Influenza B 2002-03-15 00:00:00 Completed [facility] DTAP 2002-03-15 00:00:00 Completed [facility] HIB 4 Dose Schedule 2002-03-15 00:00:00 Completed [facility] TDAP 2002-03-15 00:00:00 Completed [facility] IPV 2002-03-15 00:00:00 Completed [facility] DTAP 2002-03-15 00:00:00 Completed [facility] HIB 4 Dose Schedule 2002-03-15 00:00:00 Completed [facility] TDAP 2002-03-15 00:00:00 Completed [facility] IPV 2002-03-15 00:00:00 Completed [facility] DTAP 2002-03-15 00:00:00 Completed [facility] HIB 4 Dose Schedule 2002-03-15 00:00:00 Completed [facility] TDAP 2002-03-15 00:00:00 Completed [facility] IPV 2002-03-15 00:00:00 Completed [facility] DTAP 2002-03-15 00:00:00 Completed [facility] HIB 4 Dose Schedule 2002-03-15 00:00:00 Completed [facility] TDAP 2002-03-15 00:00:00 Completed [facility] IPV 2002-03-15 00:00:00 Completed [facility] DTAP 2002-03-15 00:00:00 Completed [facility] HIB 4 Dose Schedule 2002-03-15 00:00:00 Completed [facility] TDAP 2002-03-15 00:00:00 Completed [facility] IPV 2002-03-15 00:00:00 Completed [facility] DTAP 2002-03-15 00:00:00 Completed [facility] HIB 4 Dose Schedule 2002-03-15 00:00:00 Completed [facility] TDAP 2002-03-15 00:00:00 Completed [facility] IPV 2002-03-15 00:00:00 Completed [facility] DTAP 2002-03-15 00:00:00 Completed [facility] HIB 4 Dose Schedule 2002-03-15 00:00:00 Completed [facility] TDAP 2002-03-15 00:00:00 Completed [facility] IPV 2002-03-15 00:00:00 Completed [facility] DTAP 2002-03-15 00:00:00 Completed [facility] HIB 4 Dose Schedule 2002-03-15 00:00:00 Completed [facility] TDAP 2002-03-15 00:00:00 Completed [facility] IPV 2002-03-15 00:00:00 Completed [facility] DTAP 2002-03-15 00:00:00 Completed Heamophilus Influenza B 2002-03-15 00:00:00 Completed TDAP 2002-03-15 00:00:00 Completed IPV 2002-03-15 00:00:00 Completed DTaP, Unspecified Formulation 2002-03-15 00:00:00 Completed DTAP 2001 00:00:00 Completed [facility] HIB 4 Dose Schedule 2001 00:00:00 Completed [facility] TDAP 2001 00:00:00 Completed [facility] IPV 2001 00:00:00 Completed [facility] DTAP 2001 00:00:00 Completed [facility] HIB 4 Dose Schedule 2001 00:00:00 Completed [facility] TDAP 2001 00:00:00 Completed [facility] IPV 2001 00:00:00 Completed [facility] DTAP 2001 00:00:00 Completed [facility] TDAP 2001 00:00:00 Completed [facility] IPV 2001 00:00:00 Completed [facility] Heamophilus Influenza B 2001 00:00:00 Completed [facility] DTAP 2001 00:00:00 Completed [facility] TDAP 2001 00:00:00 Completed [facility] IPV 2001 00:00:00 Completed [facility] Heamophilus Influenza B 2001 00:00:00 Completed [facility] DTAP 2001 00:00:00 Completed [facility] HIB 4 Dose Schedule 2001 00:00:00 Completed [facility] TDAP 2001 00:00:00 Completed [facility] IPV 2001 00:00:00 Completed [facility] DTAP 2001 00:00:00 Completed [facility] TDAP 2001 00:00:00 Completed [facility] IPV 2001 00:00:00 Completed [facility] Heamophilus Influenza B 2001 00:00:00 Completed [facility] DTAP 2001 00:00:00 Completed [facility] HIB 4 Dose Schedule 2001 00:00:00 Completed [facility] TDAP 2001 00:00:00 Completed [facility] IPV 2001 00:00:00 Completed [facility] DTAP 2001 00:00:00 Completed [facility] HIB 4 Dose Schedule 2001 00:00:00 Completed [facility] TDAP 2001 00:00:00 Completed [facility] IPV 2001 00:00:00 Completed [facility] DTAP 2001 00:00:00 Completed [facility] HIB 4 Dose Schedule 2001 00:00:00 Completed [facility] TDAP 2001 00:00:00 Completed [facility] IPV 2001 00:00:00 Completed [facility] DTAP 2001 00:00:00 Completed [facility] HIB 4 Dose Schedule 2001 00:00:00 Completed [facility] TDAP 2001 00:00:00 Completed [facility] IPV 2001 00:00:00 Completed [facility] DTAP 2001 00:00:00 Completed [facility] HIB 4 Dose Schedule 2001 00:00:00 Completed [facility] TDAP 2001 00:00:00 Completed [facility] IPV 2001 00:00:00 Completed [facility] DTAP 2001 00:00:00 Completed [facility] HIB 4 Dose Schedule 2001 00:00:00 Completed [facility] TDAP 2001 00:00:00 Completed [facility] IPV 2001 00:00:00 Completed [facility] DTAP 2001 00:00:00 Completed [facility] HIB 4 Dose Schedule 2001 00:00:00 Completed [facility] TDAP 2001 00:00:00 Completed [facility] IPV 2001 00:00:00 Completed [facility] DTAP 2001 00:00:00 Completed [facility] HIB 4 Dose Schedule 2001 00:00:00 Completed [facility] TDAP 2001 00:00:00 Completed [facility] IPV 2001 00:00:00 Completed [facility] DTAP 2001 00:00:00 Completed [facility] Heamophilus Influenza B 2001 00:00:00 Completed TDAP 2001 00:00:00 Completed IPV 2001 00:00:00 Completed DTaP, Unspecified Formulation 2001 00:00:00 Completed Hep B, Adol or Pedi Dosage 2001 00:00:00 Completed [facility] Hep B, Adol or Pedi Dosage 2001 00:00:00 Completed [facility] Hep B, Adol or Pedi Dosage 2001 00:00:00 Completed [facility] Hep B, Adol or Pedi Dosage 2001 00:00:00 Completed [facility] Hep B, Adol or Pedi Dosage 2001 00:00:00 Completed [facility] Hep B, Adol or Pedi Dosage 2001 00:00:00 Completed [facility] Hep B, Adol or Pedi Dosage 2001 00:00:00 Completed [facility] Hep B, Adol or Pedi Dosage 2001 00:00:00 Completed [facility] Hep B, Adol or Pedi Dosage 2001 00:00:00 Completed [facility] Hep B, Adol or Pedi Dosage 2001 00:00:00 Completed [facility] Hep B, Adol or Pedi Dosage 2001 00:00:00 Completed [facility] Hep B, Adol or Pedi Dosage 2001 00:00:00 Completed [facility] Hep B, Adol or Pedi Dosage 2001 00:00:00 Completed [facility] Hep B, Adol or Pedi Dosage 2001 00:00:00 Completed [facility] Hep B, Adol or Pedi Dosage 2001 00:00:00 Completed Hep B, Adol or Pedi Dosage 2001 00:00:00 Completed [facility] Hep B, Adol or Pedi Dosage 2001 00:00:00 Completed [facility] Hep B, Adol or Pedi Dosage 2001 00:00:00 Completed [facility] Hep B, Adol or Pedi Dosage 2001 00:00:00 Completed [facility] Hep B, Adol or Pedi Dosage 2001 00:00:00 Completed [facility] Hep B, Adol or Pedi Dosage 2001 00:00:00 Completed [facility] Hep B, Adol or Pedi Dosage 2001 00:00:00 Completed [facility] Hep B, Adol or Pedi Dosage 2001 00:00:00 Completed [facility] Hep B, Adol or Pedi Dosage 2001 00:00:00 Completed [facility] Hep B, Adol or Pedi Dosage 2001 00:00:00 Completed [facility] Hep B, Adol or Pedi Dosage 2001 00:00:00 Completed [facility] Hep B, Adol or Pedi Dosage 2001 00:00:00 Completed [facility] Hep B, Adol or Pedi Dosage 2001 00:00:00 Completed [facility] Hep B, Adol or Pedi Dosage 2001 00:00:00 Completed [facility] Hep B, Adol or Pedi Dosage 2001 00:00:00 Completed Rho (d) Immune Globulin Unknown Completed [facility] Influenza Virus Vaccine Quad .5 mL IM 6+ MO (FLUZONE/FLULAVAL/FL UARIX) Unknown Completed [facility] TDAP (ADACEL) VACCINE Unknown Completed [facility] MMR Unknown Completed [facility] Rho (d) Immune Globulin Unknown Completed [facility] DTAP Unknown Completed [facility] HIB 4 Dose Schedule Unknown Completed [facility] HEPATITIS A Unknown Completed [facility] Hep B, Adol or Pedi Dosage Unknown Completed [facility] HPV Unknown Completed [facility] Influenza Virus Vaccine Unknown Completed [facility] Meningococcal Vaccine Unknown Completed [facility] Varicella (varivax)(chicken pox) Unknown Completed [facility] Influenza Virus Vaccine Quad IM, Preserv and ABX Free 6 MO-64 YRS (FLUCELVAX) Unknown Completed [facility] Influenza Virus Vaccine Nasal Unknown Completed [facility] IPV Unknown Completed [facility] Meningococcal Polysaccharide (groups A, C, Y and W-135) conjugate vaccine (MCV4P) Unknown Completed [facility] Rho (d) Immune Globulin Unknown Completed [facility] Influenza Virus Vaccine Quad .5 mL IM 6+ MO (FLUZONE/FLULAVAL/FL UARIX) Unknown Completed [facility] TDAP (ADACEL) VACCINE Unknown Completed [facility] MMR Unknown Completed [facility] Rho (d) Immune Globulin Unknown Completed [facility] DTAP Unknown Completed [facility] HIB 4 Dose Schedule Unknown Completed [facility] HEPATITIS A Unknown Completed [facility] Hep B, Adol or Pedi Dosage Unknown Completed [facility] HPV Unknown Completed [facility] Influenza Virus Vaccine Unknown Completed [facility] Meningococcal Vaccine Unknown Completed [facility] Varicella (varivax)(chicken pox) Unknown Completed [facility] Influenza Virus Vaccine Quad IM, Preserv and ABX Free 6 MO-64 YRS (FLUCELVAX) Unknown Completed [facility] Influenza Virus Vaccine Nasal Unknown Completed [facility] IPV Unknown Completed [facility] Meningococcal Polysaccharide (groups A, C, Y and W-135) conjugate vaccine (MCV4P) Unknown Completed [facility] Rho (d) Immune Globulin Unknown Completed [facility] Influenza Virus Vaccine Quad .5 mL IM 6+ MO (FLUZONE/FLULAVAL/FL UARIX) Unknown Completed [facility] TDAP (ADACEL) VACCINE Unknown Completed [facility] MMR Unknown Completed [facility] Rho (d) Immune Globulin Unknown Completed [facility] DTAP Unknown Completed [facility] HIB 4 Dose Schedule Unknown Completed [facility] HEPATITIS A Unknown Completed [facility] Hep B, Adol or Pedi Dosage Unknown Completed [facility] HPV Unknown Completed [facility] Influenza Virus Vaccine Unknown Completed [facility] Meningococcal Vaccine Unknown Completed [facility] Varicella (varivax)(chicken pox) Unknown Completed [facility] Influenza Virus Vaccine Quad IM, Preserv and ABX Free 6 MO-64 YRS (FLUCELVAX) Unknown Completed [facility] Influenza Virus Vaccine Nasal Unknown Completed [facility] IPV Unknown Completed [facility] Meningococcal Polysaccharide (groups A, C, Y and W-135) conjugate vaccine (MCV4P) Unknown Completed [facility] Rho (d) Immune Globulin Unknown Completed [facility] Influenza Virus Vaccine Quad .5 mL IM 6+ MO (FLUZONE/FLULAVAL/FL UARIX) Unknown Completed [facility] TDAP (ADACEL) VACCINE Unknown Completed [facility] MMR Unknown Completed [facility] Rho (d) Immune Globulin Unknown Completed [facility] DTAP Unknown Completed [facility] HIB 4 Dose Schedule Unknown Completed [facility] HEPATITIS A Unknown Completed [facility] Hep B, Adol or Pedi Dosage Unknown Completed [facility] HPV Unknown Completed [facility] Influenza Virus Vaccine Unknown Completed [facility] Meningococcal Vaccine Unknown Completed [facility] Varicella (varivax)(chicken pox) Unknown Completed [facility] Influenza Virus Vaccine Quad IM, Preserv and ABX Free 6 MO-64 YRS (FLUCELVAX) Unknown Completed [facility] Influenza Virus Vaccine Nasal Unknown Completed [facility] IPV Unknown Completed [facility] Meningococcal Polysaccharide (groups A, C, Y and W-135) conjugate vaccine (MCV4P) Unknown Completed [facility] Rho (d) Immune Globulin Unknown Completed [facility] Influenza Virus Vaccine Quad .5 mL IM 6+ MO (FLUZONE/FLULAVAL/FL UARIX) Unknown Completed [facility] TDAP (ADACEL) VACCINE Unknown Completed [facility] MMR Unknown Completed [facility] Rho (d) Immune Globulin Unknown Completed [facility] DTAP Unknown Completed [facility] HIB 4 Dose Schedule Unknown Completed [facility] HEPATITIS A Unknown Completed [facility] Hep B, Adol or Pedi Dosage Unknown Completed [facility] HPV Unknown Completed [facility] Influenza Virus Vaccine Unknown Completed [facility] Meningococcal Vaccine Unknown Completed [facility] Varicella (varivax)(chicken pox) Unknown Completed [facility] Influenza Virus Vaccine Quad IM, Preserv and ABX Free 6 MO-64 YRS (FLUCELVAX) Unknown Completed [facility] Influenza Virus Vaccine Nasal Unknown Completed [facility] IPV Unknown Completed [facility] Meningococcal Polysaccharide (groups A, C, Y and W-135) conjugate vaccine (MCV4P) Unknown Completed [facility] Rho (d) Immune Globulin Unknown Completed [facility] Influenza Virus Vaccine Quad .5 mL IM 6+ MO (FLUZONE/FLULAVAL/FL UARIX) Unknown Completed [facility] TDAP (ADACEL) VACCINE Unknown Completed [facility] MMR Unknown Completed [facility] Rho (d) Immune Globulin Unknown Completed [facility] DTAP Unknown Completed [facility] HIB 4 Dose Schedule Unknown Completed [facility] HEPATITIS A Unknown Completed [facility] Hep B, Adol or Pedi Dosage Unknown Completed [facility] HPV Unknown Completed [facility] Influenza Virus Vaccine Unknown Completed [facility] Meningococcal Vaccine Unknown Completed [facility] Varicella (varivax)(chicken pox) Unknown Completed [facility] Influenza Virus Vaccine Quad IM, Preserv and ABX Free 6 MO-64 YRS (FLUCELVAX) Unknown Completed [facility] Influenza Virus Vaccine Nasal Unknown Completed [facility] IPV Unknown Completed [facility] Meningococcal Polysaccharide (groups A, C, Y and W-135) conjugate vaccine (MCV4P) Unknown Completed [facility] Rho (d) Immune Globulin Unknown Completed [facility] Influenza Virus Vaccine Quad .5 mL IM 6+ MO (FLUZONE/FLULAVAL/FL UARIX) Unknown Completed [facility] TDAP (ADACEL) VACCINE Unknown Completed [facility] MMR Unknown Completed [facility] Rho (d) Immune Globulin Unknown Completed [facility] DTAP Unknown Completed [facility] HIB 4 Dose Schedule Unknown Completed [facility] HEPATITIS A Unknown Completed [facility] Hep B, Adol or Pedi Dosage Unknown Completed [facility] HPV Unknown Completed [facility] Influenza Virus Vaccine Unknown Completed [facility] Meningococcal Vaccine Unknown Completed [facility] Varicella (varivax)(chicken pox) Unknown Completed [facility] Influenza Virus Vaccine Quad IM, Preserv and ABX Free 6 MO-64 YRS (FLUCELVAX) Unknown Completed [facility] Influenza Virus Vaccine Nasal Unknown Completed [facility] IPV Unknown Completed [facility] Meningococcal Polysaccharide (groups A, C, Y and W-135) conjugate vaccine (MCV4P) Unknown Completed [facility] Rho (d) Immune Globulin Unknown Completed [facility] Influenza Virus Vaccine Quad .5 mL IM 6+ MO (FLUZONE/FLULAVAL/FL UARIX) Unknown Completed [facility] TDAP (ADACEL) VACCINE Unknown Completed [facility] MMR Unknown Completed [facility] Rho (d) Immune Globulin Unknown Completed [facility] DTAP Unknown Completed [facility] HIB 4 Dose Schedule Unknown Completed [facility] HEPATITIS A Unknown Completed [facility] Hep B, Adol or Pedi Dosage Unknown Completed [facility] HPV Unknown Completed [facility] Influenza Virus Vaccine Unknown Completed [facility] Meningococcal Vaccine Unknown Completed [facility] Varicella (varivax)(chicken pox) Unknown Completed [facility] Influenza Virus Vaccine Quad IM, Preserv and ABX Free 6 MO-64 YRS (FLUCELVAX) Unknown Completed [facility] Influenza Virus Vaccine Nasal Unknown Completed [facility] IPV Unknown Completed [facility] Meningococcal Polysaccharide (groups A, C, Y and W-135) conjugate vaccine (MCV4P) Unknown Completed [facility] Rho (d) Immune Globulin Unknown Completed [facility] Influenza Virus Vaccine Quad .5 mL IM 6+ MO (FLUZONE/FLULAVAL/FL UARIX) Unknown Completed [facility] TDAP (ADACEL) VACCINE Unknown Completed [facility] MMR Unknown Completed [facility] Rho (d) Immune Globulin Unknown Completed [facility] DTAP Unknown Completed [facility] HIB 4 Dose Schedule Unknown Completed [facility] HEPATITIS A Unknown Completed [facility] Hep B, Adol or Pedi Dosage Unknown Completed [facility] HPV Unknown Completed [facility] Influenza Virus Vaccine Unknown Completed [facility] Meningococcal Vaccine Unknown Completed [facility] Varicella (varivax)(chicken pox) Unknown Completed [facility] Influenza Virus Vaccine Quad IM, Preserv and ABX Free 6 MO-64 YRS (FLUCELVAX) Unknown Completed [facility] Influenza Virus Vaccine Nasal Unknown Completed [facility] IPV Unknown Completed [facility] Meningococcal Polysaccharide (groups A, C, Y and W-135) conjugate vaccine (MCV4P) Unknown Completed [facility] Rho (d) Immune Globulin Unknown Completed [facility] Meningococcal Vaccine Unknown Completed [facility] Meningococcal Polysaccharide (groups A, C, Y and W-135) conjugate vaccine (MCV4P) Unknown Completed [facility] Influenza Virus Vaccine Quad Nasal (Flumist) Unknown Completed [facility] Flu Whole Virus Unknown Completed [facility] Rho (d) Immune Globulin Unknown Completed [facility] Influenza Virus Vaccine Quad .5 mL IM 6+ MO (FLUZONE/FLULAVAL/FL UARIX) Unknown Completed [facility] TDAP (ADACEL) VACCINE Unknown Completed [facility] MMR Unknown Completed [facility] DTAP Unknown Completed [facility] HIB 4 Dose Schedule Unknown Completed [facility] HEPATITIS A Unknown Completed [facility] Hep B, Adol or Pedi Dosage Unknown Completed [facility] HPV Unknown Completed [facility] Influenza Virus Vaccine Unknown Completed [facility] Varicella (varivax)(chicken pox) Unknown Completed [facility] Influenza Virus Vaccine Quad IM, Preserv and ABX Free 6 MO-64 YRS (FLUCELVAX) Unknown Completed [facility] Influenza Virus Vaccine Nasal Unknown Completed [facility] IPV Unknown Completed [facility] Influenza, Trivalent, Adjuvanted Unknown Completed [facility] DTaP, Unspecified Formulation Unknown Completed [facility] Flu Trivalent Unknown Completed [facility] Rho (d) Immune Globulin Unknown Completed [facility] Influenza Virus Vaccine Quad .5 mL IM 6+ MO (FLUZONE/FLULAVAL/FL UARIX) Unknown Completed [facility] TDAP (ADACEL) VACCINE Unknown Completed [facility] MMR Unknown Completed [facility] Rho (d) Immune Globulin Unknown Completed [facility] DTAP Unknown Completed [facility] HIB 4 Dose Schedule Unknown Completed [facility] HEPATITIS A Unknown Completed [facility] Hep B, Adol or Pedi Dosage Unknown Completed [facility] HPV Unknown Completed [facility] Influenza Virus Vaccine Unknown Completed [facility] Meningococcal Vaccine Unknown Completed [facility] Varicella (varivax)(chicken pox) Unknown Completed [facility] Influenza Virus Vaccine Quad IM, Preserv and ABX Free 6 MO-64 YRS (FLUCELVAX) Unknown Completed [facility] Influenza Virus Vaccine Nasal Unknown Completed [facility] IPV Unknown Completed [facility] Meningococcal Polysaccharide (groups A, C, Y and W-135) conjugate vaccine (MCV4P) Unknown Completed [facility] Influenza, Trivalent, Adjuvanted Unknown Completed [facility] DTaP, Unspecified Formulation Unknown Completed [facility] Influenza Virus Vaccine Quad Nasal (Flumist) Unknown Completed [facility] Flu Trivalent Unknown Completed [facility] Flu Whole Virus Unknown Completed [facility] Rho (d) Immune Globulin Unknown Completed [facility] Influenza Virus Vaccine Quad .5 mL IM 6+ MO (FLUZONE/FLULAVAL/FL UARIX) Unknown Completed [facility] TDAP (ADACEL) VACCINE Unknown Completed [facility] MMR Unknown Completed [facility] Rho (d) Immune Globulin Unknown Completed [facility] DTAP Unknown Completed [facility] HIB 4 Dose Schedule Unknown Completed [facility] HEPATITIS A Unknown Completed [facility] Hep B, Adol or Pedi Dosage Unknown Completed [facility] HPV Unknown Completed [facility] Influenza Virus Vaccine Unknown Completed [facility] Meningococcal Vaccine Unknown Completed [facility] Varicella (varivax)(chicken pox) Unknown Completed [facility] Influenza Virus Vaccine Quad IM, Preserv and ABX Free 6 MO-64 YRS (FLUCELVAX) Unknown Completed [facility] Influenza Virus Vaccine Nasal Unknown Completed [facility] IPV Unknown Completed [facility] Meningococcal Polysaccharide (groups A, C, Y and W-135) conjugate vaccine (MCV4P) Unknown Completed [facility] Influenza, Trivalent, Adjuvanted Unknown Completed [facility] DTaP, Unspecified Formulation Unknown Completed [facility] Influenza Virus Vaccine Quad Nasal (Flumist) Unknown Completed [facility] Flu Trivalent Unknown [facility] Flu [facility] Virus Unknown Com[facility] Rho (d) Immune Globulin Unknown Completed [facility] Influenza Virus Vaccine Quad .5 mL IM 6+ MO (FLUZONE/FLULAVAL/FL UARIX) Unknown Completed [facility] TDAP (ADACEL) VACCINE Unknown Completed [facility] MMR Unknown Completed [facility] Rho (d) Immune Globulin Unknown Completed [facility] DTAP Unknown Completed [facility] HIB 4 Dose Schedule Unknown Completed [facility] HEPATITIS A Unknown [facility] Hep B, Adol or Pedi Dosage Unknown Completed [facility] HPV Unknown Completed [facility] Influenza Virus Vaccine Unknown Completed [facility] Meningococcal Vaccine Unknown Completed [facility] Varicella (varivax)(chicken pox) Unknown Completed [facility] Influenza Virus Vaccine Quad IM, Preserv and ABX Free 6 MO-64 YRS (FLUCELVAX) Unknown Completed [facility] Influenza Virus Vaccine Nasal Unknown Completed [facility] IPV Unknown Completed [facility] Meningococcal Polysaccharide (groups A, C, Y and W-135) conjugate vaccine (MCV4P) Unknown Completed [facility] Influenza, Trivalent, Adjuvanted Unknown Completed [facility] DTaP, Unspecified Formulation Unknown Completed [facility] Influenza Virus Vaccine Quad Nasal (Flumist) Unknown Completed [facility] Flu Trivalent Unknown Completed [facility] Flu Whole Virus Unknown Completed [facility] Rho (d) Immune Globulin Unknown Completed [facility] Influenza Virus Vaccine Quad .5 mL IM 6+ MO (FLUZONE/FLULAVAL/FL UARIX) Unknown Completed [facility] TDAP (ADACEL) VACCINE Unknown Completed [facility] MMR Unknown Completed [facility] Rho (d) Immune Globulin Unknown Completed [facility] DTAP Unknown Completed [facility] HIB 4 Dose Schedule Unknown Completed [facility] HEPATITIS A Unknown Completed [facility] Hep B, Adol or Pedi Dosage Unknown Completed [facility] HPV Unknown Completed [facility] Influenza Virus Vaccine Unknown Completed [facility] Meningococcal Vaccine Unknown Completed [facility] Varicella (varivax)(chicken pox) Unknown Completed [facility] Influenza Virus Vaccine Quad IM, Preserv and ABX Free 6 MO-64 YRS (FLUCELVAX) Unknown Completed [facility] Influenza Virus Vaccine Nasal Unknown Completed [facility] IPV Unknown Completed [facility] Meningococcal Polysaccharide (groups A, C, Y and W-135) conjugate vaccine (MCV4P) Unknown Completed [facility] Influenza, Trivalent, Adjuvanted Unknown Completed [facility] DTaP, Unspecified Formulation Unknown Completed [facility] Influenza Virus Vaccine Quad Nasal (Flumist) Unknown Completed [facility] Flu Trivalent Unknown Completed [facility] Flu Whole Virus Unknown Completed [facility] Rho (d) Immune Globulin Unknown Completed [facility] Influenza Virus Vaccine Quad .5 mL IM 6+ MO (FLUZONE/FLULAVAL/FL UARIX) Unknown Completed [facility] TDAP (ADACEL) VACCINE Unknown Completed [facility] MMR Unknown Completed [facility] Rho (d) Immune Globulin Unknown Completed [facility] DTAP Unknown Completed [facility] Heamophil[employer] Influenza B Unknown Completed [facility] HEPATITIS A Unknown Completed [facility] Hep B, Adol or Pedi Dosage Unknown Completed [facility] HPV Unknown Completed [facility] Influenza Virus Vaccine Unknown Completed [facility] Meningococcal Vaccine Unknown Completed [facility] Varicella (varivax)(chicken pox) Unknown Completed [facility] Influenza Virus Vaccine Quad IM, Preserv and ABX Free 6 MO-64 YRS (FLUCELVAX) Unknown Completed [facility] Influenza Virus Vaccine Nasal Unknown Completed [facility] IPV Unknown Completed [facility] Meningococcal Polysaccharide (groups A, C, Y and W-135) conjugate vaccine (MCV4P) Unknown Completed [facility] Influenza, Trivalent, Adjuvanted Unknown Completed [facility] DTaP, Unspecified Formulation Unknown Completed [facility] Influenza Virus Vaccine Quad Nasal (Flumist) Unknown Completed [facility] Flu Trivalent Unknown Completed [facility] Flu Whole Virus Unknown Completed [facility] Rho (d) Immune Globulin Unknown Completed [facility] Influenza Virus Vaccine Quad .5 mL IM 6+ MO (FLUZONE/FLULAVAL/FL UARIX) Unknown Completed [facility] TDAP Unknown Completed [facility] MMR Unknown Completed [facility] Rho (d) Immune Globulin Unknown Completed [facility] [facility] DTAP Unknown Completed [facility] Heamophilus Influenza B Unknown Completed [facility] HEPATITIS A Unknown Completed [facility] Hep B, Adol or Pedi Dosage Unknown Completed [facility] HPV Unknown Completed [facility] Influenza Virus Vaccine Unknown Completed [facility] Meningococcal Vaccine Unknown Completed [facility] Varicella (varivax)(chicken pox) Unknown Completed [facility] Influenza Virus Vaccine Quad IM, Preserv and ABX Free 6 MO-64 YRS (FLUCELVAX) Unknown Completed [facility] Influenza Virus Vaccine Nasal Unknown Completed [facility] IPV Unknown Completed [facility] Meningococcal Polysaccharide (groups A, C, Y and W-135) conjugate vaccine (MCV4P) Unknown Completed [facility] Influenza, adjuvanted, trivalent, PF (FLUAD) Unknown Completed [facility] DTaP, Unspecified Formulation Unknown Completed [facility] Influenza Virus Vaccine Quad Nasal (Flumist) Unknown Completed [facility] Influenza, split virus, trivalent, PF (AFLURIA/FLUARIX/FLU LAVAL/FLUZONE) Unknown Completed [facility] Flu Whole Virus Unknown Completed [facility] Vital Signs Vital Name Observation [...] H ealt BMI 2024-08-02 13:23:00 24.03 kg/m2 [facility] ealt Systolic blood pressure 2024-07-28 13:10:00 119 mm[Hg] [facility] Diastolic blood pressure 2024-07-28 13:10:00 80 mm[Hg] [facility] Heart rate 2024-07-28 13:10:00 110 /min [facility] Respiratory rate 2024-07-28 13:10:00 18 /min [facility] Body height 2024-07-28 13:10:00 157.5 cm [facility] Body weight 2024-07-28 13:10:00 59.875 kg [facility] BMI 2024-07-28 13:10:00 24.14 kg/m2 [facility] Systolic blood pressure 2024-04-30 14:20:00 102 mm[Hg] [facility] Diastolic blood pressure 2024-04-30 14:20:00 72 mm[Hg] [facility] Heart rate 2024-04-30 14:20:00 94 /min [facility] Respiratory rate 2024-04-30 14:20:00 18 /min [facility] Body height 2024-04-30 14:20:00 157.5 cm [facility] Body weight 2024-04-30 14:20:00 59.421 kg [facility] BMI 2024-04-30 14:20:00 23.96 kg/m2 [facility] Systolic blood pressure 2024-04-14 20:00:00 115 mm[Hg] [facility] Diastolic blood pressure 2024-04-14 20:00:00 86 mm[Hg] [facility] Heart rate 2024-04-14 20:00:00 100 /min [facility] Body temperature 2024-04-14 20:00:00 36.72 Melania [facility] Respiratory rate 2024-04-14 20:00:00 14 /min [facility] Body height 2024-04-14 20:00:00 157.5 cm [facility] Body weight 2024-04-14 20:00:00 58.968 kg [facility] BMI 2024-04-14 20:00:00 23.78 kg/m2 [facility] Oxygen saturation in Arterial blood by Pulse oximetry 2024-04-14 20:00:00 100 /min [facility] Systolic blood pressure 2024-04-11 19:00:00 123 mm[Hg] [facility] Diastolic blood pressure 2024-04-11 19:00:00 77 mm[Hg] [facility] Heart rate 2024-04-11 19:00:00 88 /min [facility] Body temperature 2024-04-11 19:00:00 37.22 Melania [facility] Respiratory rate 2024-04-11 19:00:00 18 /min [facility] Oxygen saturation in Arterial blood by Pulse oximetry 2024-04-11 19:00:00 99 /min [facility] Body height 2024-04-11 17:36:00 157.5 cm [facility] Body weight 2024-04-11 17:36:00 58.968 kg [facility] BMI 2024-04-11 17:36:00 23.78 kg/m2 [facility] Systolic blood pressure 2024-02-06 13:57:00 115 mm[Hg] [facility] Diastolic blood pressure 2024-02-06 13:57:00 77 mm[Hg] [facility] Heart rate 2024-02-06 13:57:00 115 /min [facility] Body temperature 2024-02-06 13:57:00 36.72 Melania [facility] Respiratory rate 2024-02-06 13:57:00 16 /min [facility] Body height 2024-02-06 13:57:00 157.5 cm [facility] Body weight 2024-02-06 13:57:00 60.782 kg [facility] BMI 2024-02-06 13:57:00 24.51 kg/m2 [facility] Respiratory rate 2023-11-13 19:04:00 18 /min [facility] Body height 2023-11-13 19:04:00 154.9 cm [facility] Body weight 2023-11-13 19:04:00 56.79 kg [facility] BMI 2023-11-13 19:04:00 23.66 kg/m2 [facility] Systolic blood pressure 2023-11-13 19:04:00 124 mm[Hg] [facility] Diastolic blood pressure 2023-11-13 19:04:00 73 mm[Hg] [facility] Heart rate 2023-11-13 19:04:00 94 /min [facility] Body temperature 2023-11-13 19:04:00 36.78 Melania [facility] Systolic blood pressure 2023-10-14 18:30:00 96 mm[Hg] [facility] Diastolic blood pressure 2023-10-14 18:30:00 66 mm[Hg] [facility] Heart rate 2023-10-14 18:30:00 86 /min [facility] Respiratory rate 2023-10-14 18:30:00 18 /min [facility] Oxygen saturation in Arterial blood by Pulse oximetry 2023-10-14 18:30:00 99 /min [facility] Body temperature 2023-10-14 13:13:00 36.72 Melania [facility] Body height 2023-10-13 23:46:00 154.9 cm [facility] Body weight 2023-10-13 23:46:00 55.792 kg [facility] BMI 2023-10-13 23:46:00 23.24 kg/m2 [facility] Systolic blood pressure 2023-10-11 00:55:00 116 mm[Hg] [facility] Diastolic blood pressure 2023-10-11 00:55:00 79 mm[Hg] [facility] Heart rate 2023-10-11 00:55:00 95 /min [facility] Respiratory rate 2023-10-11 00:55:00 16 /min [facility] Oxygen saturation in Arterial blood by Pulse oximetry 2023-10-11 00:55:00 99 /min [facility] Body temperature 2023-10-11 00:25:00 36.33 Melania [facility] Body height 2023-10-10 19:58:00 154.9 cm [facility] Body weight 2023-10-10 19:58:00 55.792 kg [facility] BMI 2023-10-10 19:58:00 23.24 kg/m2 [facility] Systolic blood pressure 2023-10-10 19:58:00 107 mm[Hg] [facility] Diastolic blood pressure 2023-10-10 19:58:00 68 mm[Hg] [facility] Heart rate 2023-10-10 19:58:00 97 /min [facility] Body temperature 2023-10-10 19:58:00 36.94 Melania [facility] Respiratory rate 2023-10-10 19:58:00 18 /min [facility] Body height 2023-10-10 19:58:00 154.9 cm [facility] Body weight 2023-10-10 19:58:00 55.792 kg [facility] BMI 2023-10-10 19:58:00 23.24 kg/m2 [facility] Oxygen saturation in Arterial blood by Pulse oximetry 2023-10-10 19:58:00 98 /min [facility] Systolic blood pressure 2023-10-08 14:20:00 97 mm[Hg] [facility] Diastolic blood pressure 2023-10-08 14:20:00 61 mm[Hg] [facility] Heart rate 2023-10-08 14:20:00 97 /min [facility] Body temperature 2023-10-08 14:20:00 37 Melania [facility] Respiratory rate 2023-10-08 14:20:00 16 /min [facility] Body height 2023-10-08 14:20:00 154.9 cm [facility] Body weight 2023-10-08 14:20:00 56.427 kg [facility] BMI 2023-10-08 14:20:00 23.51 kg/m2 [facility] Oxygen saturation in Arterial blood by Pulse oximetry 2023-10-08 14:20:00 97 /min [facility] Systolic blood pressure 2023 06:04:00 103 mm[Hg] [facility] Diastolic blood pressure 2023 06:04:00 65 mm[Hg] [facility] Heart rate 2023 06:04:00 95 /min [facility] Respiratory rate 2023 06:04:00 16 /min [facility] Oxygen saturation in Arterial blood by Pulse oximetry 2023 06:04:00 99 /min [facility] Body temperature 2023 03:34:00 36.67 Melania [facility] Body weight 2023 03:34:00 58.968 kg [facility] BMI 2023 03:34:00 23.78 kg/m2 [facility] Systolic blood pressure 2023-08-15 13:02:00 105 mm[Hg] [facility] Diastolic blood pressure 2023-08-15 13:02:00 71 mm[Hg] [facility] Heart rate 2023-08-15 13:02:00 76 /min [facility] Respiratory rate 2023-08-15 13:02:00 18 /min [facility] Body height 2023-08-15 13:02:00 157.5 cm [facility] Body weight 2023-08-15 13:02:00 57.607 kg [facility] BMI 2023-08-15 13:02:00 23.23 kg/m2 [facility] Systolic blood pressure 2023-05-14 20:46:00 108 mm[Hg] [facility] Diastolic blood pressure 2023-05-14 20:46:00 75 mm[Hg] [facility] Heart rate 2023-05-14 20:46:00 102 /min [facility] Body temperature 2023-05-14 20:46:00 36.78 Melania [facility] Respiratory rate 2023-05-14 20:46:00 18 /min [facility] Body height 2023-05-14 20:46:00 157.5 cm [facility] 2023-05-14 20:46:00 60.328 kg [facility] BMI 2023-05-14 20:46:00 24.33 kg/m2 [facility] Systolic blood pressure 2023-02-18 20:19:00 111 mm[Hg] [facility] Diastolic blood pressure 2023-02-18 20:19:00 76 mm[Hg] [facility] Heart rate 2023-02-18 20:19:00 112 /min [facility] Body temperature 2023-02-18 20:19:00 36.78 Melania [facility] Respiratory rate 2023-02-18 20:19:00 18 /min [facility] Body height 2023-02-18 20:19:00 157.5 cm [facility] Body weight 2023-02-18 20:19:00 60.147 kg [facility] BMI 2023-02-18 20:19:00 24.25 kg/m2 [facility] Systolic blood pressure 2022-11-18 20:53:00 100 mm[Hg] [facility] Diastolic blood pressure 2022-11-18 20:53:00 70 mm[Hg] [facility] Heart rate 2022-11-18 20:53:00 97 /min [facility] Body temperature 2022-11-18 20:53:00 37.06 Melania [facility] Respiratory rate 2022-11-18 20:53:00 18 /min [facility] Body height 2022-11-18 20:53:00 157.5 cm [facility] Body weight 2022-11-18 20:53:00 59.421 kg [facility] BMI 2022-11-18 20:53:00 23.96 kg/m2 [facility] Systolic blood pressure 2022-08-26 20:11:00 113 mm[Hg] [facility] Diastolic blood pressure 2022-08-26 20:11:00 80 mm[Hg] [facility] Heart rate 2022-08-26 20:11:00 91 /min [facility] Body temperature 2022-08-26 20:11:00 36.72 Melania [facility] Respiratory rate 2022-08-26 20:11:00 16 /min [facility] Body height 2022-08-26 20:11:00 157.5 cm [facility] Body weight 2022-08-26 20:11:00 57.879 kg [facility] BMI 2022-08-26 20:11:00 23.34 kg/m2 [facility] Systolic blood pressure 2022-07-03 20:26:00 108 mm[Hg] [facility] Diastolic blood pressure 2022-07-03 20:26:00 76 mm[Hg] [facility] Heart rate 2022-07-03 20:26:00 103 /min [facility] Body temperature 2022-07-03 20:25:00 36.89 Melania [facility] Respiratory rate 2022-07-03 20:25:00 16 /min [facility] Body height 2022-07-03 20:25:00 157.5 cm [facility] Body weight 2022-07-03 20:25:00 58.968 kg [facility] BMI 2022-07-03 20:25:00 23.78 kg/m2 [facility] Oxygen saturation in Arterial blood by Pulse oximetry 2022-07-03 20:25:00 98 /min [facility] Height 2020-12-01 10:53:00 154.94 CM Weight 2020-12-01 10:53:00 50.8 KG Procedures Procedure Date / Time Performed Performing Clinician Source RAPID STREP SCREEN FOR GROUP A 2024-04-11 17:46:00 Fide Freitas [facility] POCT TEST 2024-04-11 17:46:00 Fide Freitas [facility] INFLUENZA A/B RSV COVID NAAT 2024-04-11 17:46:00 Fide Freitas [facility] LAB ONLY PAP SMEAR-LIQUID BASED 2023-11-13 19:45:00 Zarina Kennedy [facility] PAP SMEAR-LIQUID BASED-CP 2023-11-13 19:45:00 Kennedy[facility] HEPATITIS B SURFACE ANTIGEN 2023-11-13 19:34:00 KennedyZarina Marcus [facility] HCV ANTIBODY 2023-11-13 19:34:00 KennedyZarina Marcus [facility] HIV 1/2 AG-AB WITH REFLEX 2023-11-13 19:34:00 Catie Kennedy [facility] FLU VACC ([id number]), 6 MO-64 YRS, .5ML, IM, QUAD (FLUCELVAX) 2023-11-13 19:17:34 [facility] GC & CHLAMYDIA AMPLIFIED ASSAY 2023-11-13 19:16:00 [facility] TRICHOMONAS AMPLIFIED ASSAY 2023-11-13 19:16:00 [facility] EXTERNAL PROVIDER RECORDS 2023-10-24 06:01:00 Do ctor Unassigned, [place] [facility] BASIC METABOLIC PANEL (NA, K, CL, CO2, GLUCOSE, BUN, CREATININE, CA) 2023-10-14 10:38:00 Mallorie Alejandra [facility] CBC WITH DIFF 2023-10-14 10:38:00 Mallorie Alejandra [facility] TEST, URINE 2023-10-14 01:42:00 Elliott Priest [facility] URINALYSIS 2023-10-14 01:42:00 Elliott Priest [facility] BASIC METABOLIC PANEL (NA, K, CL, CO2, GLUCOSE, BUN, CREATININE, CA) 2023-10-14 01:41:00 Elliott Priest [facility] CBC WITH DIFF 2023-10-14 01:41:00 Elliott Priest [facility] FL TIME OR (NON-REPORTABLE) 2023-10-11 00:20:00 Mallorie Alejandra [facility] FL TIME OR (NON-REPORTABLE) 2023-10-11 00:20:00 Mallorie Alejandra [facility] URETEROSCOPIC STONE MANIPULATION 2023-10-10 23:21:00 Mallorie Alejandra [facility] DAY SURGERY - [place] 2023-10-10 06:01:00 Doctor Unassigned, [place] [facility] US RETROPERITONEAL LIMITED 2023 05:54:30 [place] Yosvany Keller [facility] POCT TEST 2023 04:05:00 Job Keyes [facility] COMP. METABOLIC PANEL ([id number]) 2023 04:02:00 Iris Keyes [facility] CBC WITH DIFF 2023 04:02:00 [facility] 04:02:00 [facility]US[facility] FOR DIAGNOSIS AND TREATMENT 2023 03:26:20 Doctor Unassigned, [place] [facility] REFERRAL- REQUEST/RESPONSE 2023-06-03 05:01:00 Adalid wyatt Unassigned, [place] [facility] PATIENT FINANCIAL POLICY 2023-02-18 19:57:32 Doctor Unassigned, [place] [facility] ASSIGNMENT OF BENEFITS 2022-11-18 20:21:23 Docto r Unassigned, [place] [facility] Encounters Start Date/Time End Date/Time Encounter Type Admission Type Attending Clinicians Care Facility Care Department Encounter ID Source 2021-09-11 07:20:36 Emergency [facility] [id number] [facility] 2021-09-11 07:18:00 Emergency [facility] [id number] [facility] 2021-09-11 05:25:53 Emergency [facility] [id number] [facility] 2021-09-10 12:34:55 Emergency [facility] [id number] [facility] 2021-09-10 00:32:[address] [facility] ERT [id number] [facility] 2021-09-10 00:25:14 Emergency [facility] [id number] [facility] 2021-09-09 03:49:13 Emergency [facility] [id number] [facility] 2021-09-07 12:08:59 Emergency [facility] [id number] [facility] 2021-09-06 14:24:[address] [facility] JONI [id number] [facility] 2021-09-06 14:21:[address] [facility] JONI [id number] [facility] 2021-09-06 13:39:[address] [facility] JONI [id number] [facility] 2021-09-06 13:35:[address] [facility] JONI [id number] [facility] 2024-08-31 11:00:00 2024-08-31 11:00:00 Outpatient GERMAN RUELAS [facility] [id number] [facility] 2024-08-31 09:00:00 2024-08-31 09:00:00 Outpatient GERMAN RUELAS [facility] [id number] [facility] 2024-08-31 08:01:36 2024-08-31 08:01:36 Outpatient SFA [facility] [id number] Dirk Milan 2024-08-27 11:30:00 2024-08-27 11:30:00 Outpatient GERMAN RUELAS [facility] [id number] [facility] 2024-07-19 00:00:00 2024-08-21 18:21:39 Patient Secure Msg Doctor Unassigned, [place] Doctor Unassigned, [place] [facility] [id number] 350.1.13.10 4.2.7.2.686 [id number] [facility] 2024-08-02 08:00:00 2024-08-02 09:37:39 Office Visit Alcira De La Paz [facility] [id number] 1..840.114 350.1.13.58 9.2.7.2.686 [id number] [facility] 2024-07-28 08:00:00 2024-07-28 08:18:17 Outpatient R ZARINA KENNEDY VIEN [facility] [id number] [facility] 2024-07-28 08:00:00 2024-07-28 08:18:17 Nurse Visit Nurse, [facility] Zarina Kennedy Nurse, [facility] 1..840.114 350.1.13.10 4.2.7.2.686 [id number] [facility] 2024-07-27 14:00:00 2024-07-27 14:00:00 Outpatient R NASSAR-MARSHAL S, HINA NASSAR-MARSHAL S, HINA [facility] [id number] [facility] 2024-07-23 15:30:00 2024-07-23 15:30:00 Outpatient R [facility] [id number] [facility] 2024-06-01 13:00:00 2024-06-01 13:00:00 Outpatient TARAS SAEED [facility] [id number] [facility] 2024-05-06 15:16:45 2024-05-06 15:16:45 Outpatient JOSE ANTONIO [facility] [id number] Dirk Nickerson Bjorn 2024-04-30 09:00:00 2024-04-30 09:20:31 Outpatient R ZARINA KENNEDY [facility] [id number] [facility] 2024-04-30 09:00:00 2024-04-30 09:20:31 Nurse Visit Nurse, [facility] Zarina Kennedy [facility] 1..840.114 350.1.13.10 4.2.7.2.686 [id number] [facility] 2024-04-14 18:15:00 2024-04-15 14:23:00 Inpatient E MICHELE BAUTISTA [facility] [id number] [address] [place] [address] 2024-04-14 15:01:00 2024-04-14 16:04:00 Emergency X VIVIANA DOWNEY [facility] ERT [id number] [facility] 2024-04-14 15:01:00 2024-04-14 16:04:00 Emergency Viviana Downey G [facility] 1.2.840.114 350.1.13.10 4.2.7.2.686 [id number] [facility] 2024-04-11 12:37:00 2024-04-11 14:17:00 Emergency X FIDE FREITAS [facility] ERT [id number] [facility] 2024-04-11 12:37:00 2024-04-11 14:17:00 Emergency HarFide whitt A [facility] 1.2.840.114 350.1.13.10 4.2.7.2.686 [id number] [facility] 2024-03-18 11:50:22 2024-03-18 11:50:22 Outpatient SFA [facility] [id number] Dirk Milan 2024-03-09 11:23:14 2024-03-09 11:23:14 Outpatient SFA [facility] [id number] Dirk Krishan Bjorn 2024-03-05 13:41:30 2024-03-05 13:41:30 Outpatient SFA [facility] [id number] Dirk Krishan Bjorn 2024-02-17 13:31:42 2024-02-17 13:31:42 Outpatient SFA [facility] [id number] Dirk Krishan Bjorn 2024-02-10 13:54:58 2024-02-10 13:54:58 Outpatient SFA [facility] [id number] Dirk Krishan Bjorn 2024-02-06 10:35:33 2024-02-06 10:35:33 Outpatient SFA [facility]FA [id number] Dirk Milan 2024-02-06 10:30:00 2024-02-06 10:30:00 Outpatient R [facility] [id number] [facility] 2024-02-06 09:00:00 2024-02-06 09:00:00 Nurse Visit Nurse, [facility] Zarina Kennedy [facility] 1.2.840.114 350.1.13.10 4.2.7.2.686 [id number] [facility] 2024-02-06 09:00:00 2024-02-06 08:58:15 Outpatient R ZARINA KENNEDY [facility] [id number] [facility] 2024-02-03 13:57:01 2024-02-03 13:57:01 Outpatient SFA [facility] [id number] Dirk Milan 2024-01-01 08:17:49 2024-01-01 08:17:49 Outpatient [facility]FA [facility] [id number] Dirk Milan 2023-12-31 16:57:01 2023-12-31 16:57:01 Outpatient SFA [facility] [id number] Dirk Milan 2023-12-25 11:58:12 2023-12-25 11:58:12 Outpatient SFA [facility] [id number] Dirk Milan 2023-11-13 13:45:00 2023-11-13 14:09:01 Tin Plater Visit 2, [facility] Zarina Kennedy [facility] 1.2.840.114 350.1.13.10 4.2.7.2.686 [id number] [facility] 2023-11-13 13:15:00 2023-11-13 13:26:31 Outpatient R ZARINA KENNEDY [facility] [id number] [facility] 2023-11-13 13:15:00 2023-11-13 13:26:31 Office Visit Zarina Kennedy [facility] [id number] 350.1.13.10 4.2.7.2.686 [id number] [facility] 2023-10-24 00:00:00 2023-10-24 00:00:00 Orders Only Doctor Unassigned, [place] [facility] 1.2.840.114 350.1.13.10 4.2.7.2.686 [id number] [facility] 2023-10-13 17:48:00 2023-10-14 16:08:00 Outpatient X MARSHA [facility] [id number] [facility] 2023-10-13 17:48:00 2023-10-14 16:08:00 [facility] 1.2.840.114 350.1.13.10 4.2.7.2.686 [id number] [facility] 2023-10-13 00:00:00 2023-10-13 00:00:00 Telephone Justyn [facility] [id number] 350.1.13.10 4.2.7.2.686 [id number] [facility] 2023-10-10 13:39:00 2023-10-10 19:08:00 Outpatient R JUSTYN [facility] [id number] [facility] [facility] 2023-10-10 13:39:00 2023-10-10 19:08:00 Hospital [facility] 1.2.840.114 350.1.13.10 4.2.7.2.686 [id number] [facility] 2023-10-10 15:01:00 2023-10-10 16:22:00 [facility] 1.2.840.114 350.1.13.10 4.2.7.2.686 [id number] [facility] 2023-10-10 00:00:00 2023-10-10 00:00:00 Orders Only Doctor Unassigned, [place] [facility] 1.2.840.114 350.1.13.10 4.2.7.2.686 [id number] [facility] 2023-10-09 09:26:26 2023-10-09 09:26:26 Outpatient [facility] [id number] Dirk Milan 2023-10-08 08:30:00 2023-10-08 15:45:08 Outpatient R AILIN TANG [facility] [id number] [facility] 2023-10-08 08:30:00 2023-10-08 15:45:08 [facility] 1.2.840.114 350.1.13.10 4.2.7.2.686 [id number] [facility] 2023-10-05 21:35:00 2023 01:06:00 Emergency X DAVY SOTELO [facility] [id number] [facility] 2023-10-05 21:35:00 2023 01:06:00 Emergency Iris Keyes [facility] 1.2.840.114 350.1.13.10 4.2.7.2.686 [id number] [facility] 2023-10-04 14:17:02 2023-10-04 14:17:02 Outpatient [facility] [id number] Dirk Nickerson Bjorn 2023-09-17 16:48:16 2023-09-17 16:48:16 Outpatient [facility] [id number] Dirk Milan 2023-09-11 09:11:57 2023-09-11 09:11:57 Outpatient [facility] [id number] Dirk Milan 2023-08-26 15:44:47 2023-08-26 15:44:47 Outpatient [facility] [id number] Dirk Milan 2023-08-15 08:00:00 2023-08-15 08:15:00 Nurse Visit Nurse, [facility] Brent Zarina Marcus [facility] 1..840.114 350.1.13.10 4.2.7.2.686 [id number] 134 [id number] [facility] 2023-08-15 08:00:00 2023-08-15 08:00:00 Outpatient R ZARINA KENNEDY [facility] [id number] [facility] 2023-08-14 08:15:00 2023-08-14 08:15:00 Outpatient BRIT HOGAN [facility] [id number] [facility] 2023-07-31 09:30:00 2023-07-31 09:30:00 Outpatient IDA ARREOLA [facility] [id number] [facility] 2023-06-26 14:44:34 2023-06-26 14:44:34 Outpatient [facility] [id number] Dirk Milan 2023-06-11 10:54:47 2023-06-11 10:54:47 Outpatient [facility] [id number] Dirk Milan 2023-06-03 00:00:00 2023-06-03 00:00:00 Orders Only Doctor Unassigned, [place] [facility] .840.114 350.1.13.10 4.2.7.2.686 [id number] [facility] 2023-05-21 09:11:27 2023-05-21 09:11:27 Outpatient [facility] [id number] Dirk Milan 2023-05-14 15:30:00 2023-05-14 15:45:47 Nurse Visit Nurse, [facility] Norma Partida [facility] BUILDING 1..840.114 350.1.13.10 4.2.7.2.686 [id number] 134 [id number] [facility] 2023-05-14 15:30:00 2023-05-14 15:30:00 Outpatient NORMA RODRIGUEZ [facility] [id number] [facility] 2023-04-30 14:56:01 2023-04-30 14:56:01 Outpatient [facility] [id number] Dirk Milan 2023-04-21 16:15:00 2023-04-21 16:15:00 Outpatient R NASSAR-MARSHAL S, HINA NASSAR-MARSHAL S, HINA [facility] [id number] [facility] 2023-03-21 14:00:00 2023-03-21 14:00:00 [facility] [id number] [facility] 2023-03-18 15:33:41 2023-03-18 15:33:41 Outpatient [facility] [id number] Dirk Milan 2023-02-28 00:00:00 2023-02-28 00:00:00 Telephone Zarina Kennedy [facility] 1.2.840.114 350.1.13.10 4.2.7.2.686 [id number] 134 [id number] [facility] 2023-02-18 15:30:00 2023-02-18 15:30:00 Nurse Visit Nurse, [facility] Wendy Rivera [facility] 1.2.840.114 350.1.13.10 4.2.7.2.686 [id number] 134 [id number] [facility] 2023-02-18 15:30:00 2023-02-18 15:15:55 Outpatient WENDY WALDROP [facility] [id number] [facility] 2023-02-18 00:00:00 2023-02-18 00:00:00 Orders Only Doctor Unassigned, [place] [facility] 1.2.840.114 350.1.13.10 4.2.7.2.686 [id number] [facility] 2023-02-12 15:57:07 2023-02-12 15:57:07 Outpatient [facility] [id number] Dirk Milan 2022-12-31 14:30:00 2022-12-31 14:30:00 Outpatient Stevo ZARINA KENNEDY [facility] [id number] [facility] 2022-12-28 00:00:00 2022-12-28 00:00:00 Telephone Kennedy Zarina [facility] 1.2.840.114 350.1.13.10 4.2.7.2.686 [id number] [facility] 2022-12-23 00:00:00 2022-12-23 00:00:00 Telephone Kennedy Zarina [facility] 1.2.840.114 350.1.13.10 4.2.7.2.686 [id number] [facility] 2022-12-20 15:45:35 2022-12-20 15:45:35 Outpatient [facility] [id number] Dirk Milan 2022-12-05 08:00:00 2022-12-05 08:00:00 Outpatient Stevo ZARINA KENNEDY [facility] [id number] [facility] 2022-11-28 00:00:00 2022-11-28 00:00:00 Telephone Wendy Rivera [facility] 1.2.840.114 350.1.13.10 4.2.7.2.686 [id number] [facility] 2022-11-21 08:56:00 2022-11-21 08:56:00 Outpatient [facility] [id number] Dirk Milan 2022-11-18 14:30:00 2022-11-18 15:20:30 [facility] [id number] [facility] 2022-11-18 14:30:00 2022-11-18 15:20:30 [facility] 1.84.114 350.1.13.10 4.2.7.2.686 [id number] [facility] 2022-11-18 00:00:00 2022-11-18 00:00:00 Orders Only Doctor Unassigned, [place] [facility] 1..114 350.1.13.10 4.2.7.2.686 [id number] [facility] 2022-10-29 09:00:00 2022-10-29 09:00:00 Outpatient R LAWRENCE [facility] [id number] [facility] 2022-10-28 00:00:00 2022-10-28 00:00:00 Telephone [facility] 1.84.114 350.1.13.10 4.2.7.2.686 [id number] [facility] 2022-10-23 00:00:00 2022-10-23 00:00:00 Telephone [place], [facility] 1..114 350.1.13.10 4.2.7.2.686 [id number] [facility] 2022-08-26 14:30:00 2022-08-26 15:11:07 Outpatient Ste[facility] [id number] [facility] 2022-08-26 14:30:00 2022-08-26 15:11:07 Nurse Visit Nurse, [facility] Jedemory [facility] BUILDING 1.84.114 350.1.13.10 4.2.7.2.686 [id number] [facility] 2022-07-03 17:00:00 2022-07-03 17:15:00 Tin Plater Visit [facility] 1..114 350.1.13.10 4.2.7.2.686 [id number] [facility] 2022-07-03 16:00:00 2022-07-03 16:06:31 Outpatient R LAWRENCE [facility] [id number] [facility] 2022-07-03 16:00:00 2022-07-03 16:06:31 [facility].114 350.1.13.10 4.2.7.2.686 [id number] [facility] 2022-07-03 16:00:00 2022-07-03 16:06:31 Outpatient R LAWRENCE, [facility] [id number] [facility] 2022-07-03 16:00:00 2022-07-03 16:06:31 Outpatient R LAWRENCE [facility] [id number] [facility] 2022-06-19 00:00:00 2022-06-19 00:00:00 Telephone [place], Nephrology [facility] 1.840.114 350.1.13.10 4.2.7.2.686 [id number] [facility] 2022-06-12 00:00:00 2022-06-12 00:00:00 Telephone [place], Nephrology [facility] 1.840.114 350.1.13.10 4.2.7.2.686 [id number] [facility] 2022-06-03 14:00:00 2022-06-03 14:15:27 Outpatient WENDY WALDROP [facility] [id number] [facility] 2022-06-03 14:00:00 2022-06-03 14:15:27 Nurse Visit Nurse, [facility] 1.2.840.114 350.1.13.10 4.2.7.2.686 [id number] [facility] 2022-04-04 15:00:00 2022-04-04 15:00:00 Outpatient Stevo NICOLE [facility] [id number] [facility] 2022-04-03 13:10:05 2022-04-03 23:59:00 Outpatient R JEDEMORY [facility] [id number] [facility] 2022-04-03 13:00:00 2022-04-03 23:59:00 Hospital Encounter Wendy Rivera [facility] 1.2.840.114 350.1.13.10 4.2.7.2.686 [id number] [facility] 2022-04-03 00:00:00 2022-04-03 00:00:00 Orders Only Doctor Unassigned, [place] [facility] 1.2.840.114 350.1.13.10 4.2.7.2.686 [id number] [facility] 2022-04-03 00:00:00 2022-04-03 00:00:00 Case Management Wendy Rivera [facility] BUILDING 1.2.840.114 350.1.13.10 4.2.7.2.686 [id number] 134 [id number] [facility] 2022-03-27 09:30:00 2022-03-27 09:30:00 Outpatient ZARINA DERAS [facility] [id number] [facility] 2022-03-27 09:30:00 2022-03-27 09:30:00 Outpatient R ZARINA KENNEDY [facility] [id number] [facility] 2022-03-27 09:30:00 2022-03-27 09:30:00 Outpatient ZARINA DERAS [facility] [id number] [facility] 2022-03-07 14:00:00 2022-03-07 14:18:10 Outpatient ZARINA DERAS [facility] [id number] [facility] 2022-03-07 14:00:00 2022-03-07 14:18:10 Nurse Visit Nurse, [facility] Brent [facility] BUILDING 1.2.840.114 350.1.13.10 4.2.7.2.686 [id number] 134 [id number] [facility] 2022-02-28 00:00:00 2022-02-28 00:00:00 Telephone Wendy Rivera [facility] BUILDING 1.2.840.114 350.1.13.10 4.2.7.2.686 [id number] 134 [id number] [facility] 2022-02-26 15:00:00 2022-02-26 16:12:25 Outpatient Stevo LINDA NORMA [facility] [id number] [facility] 2022-02-26 15:00:00 2022-02-26 16:12:25 Office Visit Wendy Rivera Vivian [facility] 1.2.840.114 350.1.13.10 4.2.7.2.686 [id number] 134 [id number] [facility] 2021-12-13 10:30:00 2021-12-13 10:42:25 Outpatient ZARINA DERAS [facility] [id number] [facility] 2021-12-13 10:30:00 2021-12-13 10:42:25 Nurse Visit Nurse, [facility] Brent [facility] 1..840.114 350.1.13.10 4.2.7.2.686 [id number] [facility] 2021-12-13 10:30:00 2021-12-13 10:30:00 Outpatient R [facility] [id number] [facility] 2021-12-13 00:00:00 2021-12-13 00:00:00 Orders Only Doctor Unassigned, [place] [facility] 1.840.114 350.1.13.10 4.2.7.2.686 [id number] [facility] 2021-12-07 13:00:00 2021-12-07 13:00:00 Outpatient STAN SPEARS HOWARD [facility] [id number] [facility] 2021-11-28 12:55:00 2021-11-28 16:24:00 Emergency X Pedro MILLER [facility] ERT [id number] [facility] 2021-11-28 12:55:00 2021-11-28 16:24:00 Emergency Pedro Miller [facility] 1..840.114 350.1.13.10 4.2.7.2.686 [id number] [facility] 2021-11-28 00:00:00 2021-11-28 00:00:00 Orders Only Doctor Unassigned, [place] [facility] 1.840.114 350.1.13.10 4.2.7.2.686 [id number] [facility] 2021-10-22 09:00:00 2021-10-22 09:29:56 Outpatient R NICOLE WENDY [facility] [id number] [facility] 2021-10-22 08:40:07 2021-10-22 09:29:56 Office Visit Wendy [facility] 1..840.114 350.1.13.10 4.2.7.2.686 [id number] [facility] 2021-09-27 10:30:00 2021-09-27 10:53:39 Outpatient R WENDY RIVERA [facility] [id number] [facility] 2021-09-27 10:24:13 2021-09-27 10:53:39 [facility] 1.2.840.114 350.1.13.10 4.2.7.2.686 [id number] 134 [id number] [facility] 2021-09-12 00:00:00 2021-09-12 00:00:[address] [facility] 1.2.840.114 350.1.13.10 4.2.7.2.686 [id number] 134 [id number] [facility] 2021-09-10 04:05:00 2021-09-11 16:00:00 Inpatient P ZARINA KENNEDY [facility] ERT [id number] [facility] 2021-09-10 04:05:00 2021-09-11 16:00:00 Hospital Encounter Zarina Kennedy [facility] 1.2840.114 350.1.13.10 4.2.7.2.686 [id number] [facility] 2021-09-10 08:35:00 2021-09-10 16:19:00 Anesthesia Event Jordan Gaspar Leonard [facility] 1.2840.114 350.1.13.10 4.2.7.2.686 [id number] [facility] 2021-09-07 10:06:22 2021-09-07 10:21:22 Laboratory Only Only, Adc Test Zarina Kennedy [facility] 1.2840.114 350.1.13.10 4.2.7.2.686 [id number] [facility] 2021-09-07 10:15:00 2021-09-07 10:15:00 Outpatient R ZARINA KENNEDY [facility] [id number] [facility] 2021-09-06 11:00:13 2021-09-06 11:58:29 Routine Visit Zarina Kennedy [facility] 1.2840.114 350.1.13.10 4.2.7.2.686 [id number] [facility] 2021-09-06 11:00:00 2021-09-06 11:58:29 Outpatient R ZARINA KENNEDY [facility] [id number] [facility] 2021-09-04 13:23:00 2021-09-04 15:35:00 Hospital Encounter Kennedy Zarina OcasioNorma bryan [facility]on [facility] 1.2840.114 350.1.13.10 4.2.7.2.686 [id number] [facility] 2021-09-04 13:23:00 2021-09-04 15:35:00 Outpatient P ZARINA KENNEDY [facility] ERT [id number] [facility] 2021-09-04 11:00:00 2021-09-04 12:14:54 Outpatient R WENDY RIVERA [facility] [id number] [facility] 2021-09-04 10:42:04 2021-09-04 12:14:54 Routine Visit Wendy Rivera [facility] 1.84.114 350.1.13.10 4.2.7.2.686 [id number] [facility] 2021-09-04 00:00:00 2021-09-04 00:00:00 Telephone Zarina Kennedy [facility] Professio nal Building 1.2.840.114 350.1.13.10 4.2.7.2.686 [id number] 134 [id number] [facility] 2021-09-03 16:15:00 2021-09-03 16:15:00 [facility] [id number] [facility] 2021-08-27 16:30:00 2021-08-27 16:30:00 Outpatient Ste[facility] [id number] [facility] 2021-08-27 15:51:06 2021-08-27 16:29:15 Routine Visit [facility] 1.2.840.114 350.1.13.10 4.2.7.2.686 [id number] 134 [id number] [facility] 2021-08-25 22:15:00 2021-08-25 23:30:00 Hospital Encounter Oumar [facility] 1.2.840.114 350.1.13.10 4.2.7.2.686 [id number] [facility] 2021-08-25 09:36:00 2021-08-25 18:31:00 Emergency Oumar [facility] 1.2.840.114 350.1.13.10 4.2.7.2.686 [id number] [facility] 2021-08-24 00:00:00 2021-08-24 00:00:00 Telephone [facility] 1.2.840.114 350.1.13.10 4.2.7.2.686 [id number] 134 [id number] [facility] 2021-08-24 00:00:00 2021-08-24 00:00:00 Telephone Wendy Rivera [facility] Building 1.2.840.114 350.1.13.10 4.2.7.2.686 [id number] 134 [id number] [facility] 2021-08-20 08:20:54 2021-08-20 09:06:30 Routine Visit Zarina Kennedy [facility] 1.2.840.114 350.1.13.10 4.2.7.2.686 [id number] 134 [id number] [facility] 2021-08-20 08:00:00 2021-08-20 08:00:00 Outpatient R ZARINA KENNEDY [facility] [id number] [facility] 2021-08-20 00:00:00 2021-08-20 00:00:00 Telephone Zarina Kennedy [facility] 1.2.840.114 350.1.13.10 4.2.7.2.686 [id number] 134 [id number] [facility] 2021-08-20 00:00:00 2021-08-20 00:00:00 Orders Only Doctor Unassigned, [place] [facility] 1.2.840.114 350.1.13.10 4.2.7.2.686 [id number] [facility] 2021-08-17 19:05:00 2021-08-17 21:15:00 Hospital Encounter Zarina Kennedy [facility] 1.2.840.114 350.1.13.10 4.2.7.2.686 [id number] [facility] 2021-08-17 00:00:00 2021-08-17 00:00:00 Orders Only Doctor Unassigned, [place] [facility] 1.2.840.114 350.1.13.10 4.2.7.2.686 [id number] [facility] 2021-08-13 16:00:00 2021-08-13 16:00:00 Outpatient R WENDY RIVERA [facility] [id number] [facility] 2021-08-13 13:32:20 2021-08-13 13:47:20 Tin Plater Visit 2, [facility] 1.2840.114 350.1.13.10 4.2.7.2.686 [id number] [facility] 2021-08-13 12:46:01 2021-08-13 13:29:24 Routine Visit Wendy Rivera [facility] 1.20.114 350.1.13.10 4.2.7.2.686 [id number] 134 [id number] [facility] 2021-08-11 00:00:00 2021-08-11 00:00:00 Nurse Triage Lashay Merritt [facility] 1.2840.114 350.1.13.10 4.2.7.2.686 [id number] [facility] 2021-08-03 10:23:00 2021-08-03 13:15:00 Hospital Encounter Zarina Kennedy Vivian L [facility] 1.2840.114 350.1.13.10 4.2.7.2.686 [id number] [facility] 2021-08-03 00:00:00 2021-08-03 00:00:00 Telephone Zarina Kennedy [facility] 1.2840.114 350.1.13.10 4.2.7.2.686 [id number] 134 [id number] [facility] 2021-08-03 00:00:00 2021-08-03 00:00:00 Orders Only Doctor Unassigned, [place] [facility] 1.2840.114 350.1.13.10 4.2.7.2.686 [id number] [facility] 2021-08-01 15:55:38 2021-08-01 16:48:02 Routine Visit Zarina Kennedy Nancy [facility] Professio nal Building 1.2.840.114 350.1.13.10 4.2.7.2.686 [id number] 134 [id number] [facility] 2021-08-01 16:15:00 2021-08-01 16:15:00 Outpatient R WENDY RIVERA [facility] [id number] [facility] 2021-07-20 13:13:35 2021-07-20 13:57:45 Tin Plater Visit Ultrasound, Adc [facility] Sherry Cherry [facility] Building 1.2.840.114 350.1.13.10 4.2.7.2.686 [id number] 134 [id number] [facility] 2021-07-20 13:30:00 2021-07-20 13:30:00 Outpatient P [facility] [id number] [facility] 2021-07-18 09:45:00 2021-07-18 09:45:00 Outpatient R WENDY RIVERA [facility] [id number] [facility] 2021-07-18 08:15:00 2021-07-18 08:15:00 Outpatient R [facility] [id number] [facility] 2021-07-17 15:44:11 2021-07-17 16:52:37 Routine Visit Zarina Kennedy [facility] 1.2.840.114 350.1.13.10 4.2.7.2.686 [id number] 134 [id number] [facility] 2021-07-17 15:44:11 2021-07-17 16:52:37 Routine Visit Zarina Kennedy [facility] 1.840.114 350.1.13.10 4.2.7.2.686 [id number] 134 [id number] [facility] 2021-07-17 16:15:00 2021-07-17 16:15:00 Outpatient R ZARINA KENNEDY [facility] [id number] [facility] 2021-07-17 00:00:00 2021-07-17 00:00:00 Orders Only Doctor Unassigned, [place] [facility] 1.20.114 350.1.13.10 4.2.7.2.686 [id number] [facility] 2021-07-17 00:00:00 2021-07-17 00:00:00 Orders Only Doctor Unassigned, [place] [facility] 1.284.114 350.1.13.10 4.2.7.2.686 [id number] [facility] 2021-07-09 11:15:00 2021-07-09 11:15:00 Outpatient R ZARINA KENNEDY [facility] [id number] [facility] 2021-07-03 00:00:00 2021-07-03 00:00:00 Telephone Zarina Kennedy [facility] 1.840.114 350.1.13.10 4.2.7.2.686 [id number] 134 [id number] [facility] 2021-07-03 00:00:00 2021-07-03 00:00:00 Telephone Zarina Kennedy [facility] 1.840.114 350.1.13.10 4.2.7.2.686 [id number] [facility] 2021-06-28 10:40:29 2021-06-28 10:55:29 Tin Plater Visit 2, Adc Lab Zarina Kennedy [facility] 1.2.840.114 350.1.13.10 4.2.7.2.686 [id number] [facility] 2021-06-28 10:40:29 2021-06-28 10:55:29 [facility] Plater Visit 2, [facility] 1.2.840.114 350.1.13.10 4.2.7.2.686 [id number] [facility] 2021-06-28 10:00:00 2021-06-28 10:00:00 Outpatient R [facility] [id number] [facility] 2021-06-28 00:00:00 2021-06-28 00:00:00 Telephone Zarina Kennedy [facility] 1.2.840.114 350.1.13.10 4.2.7.2.686 [id number] 134 [id number] [facility] 2021-06-25 10:31:20 2021-06-25 11:38:32 Routine Visit Zarina Kennedy [facility] Building 1.2840.114 350.1.13.10 4.2.7.2.686 [id number] 134 [id number] [facility] 2021-06-25 11:00:00 2021-06-25 11:00:00 Outpatient R ZARINA KENNEDY [facility] [id number] [facility] 2021-06-11 17:01:00 2021-06-11 19:52:[address] [facility] 1.2840.114 350.1.13.10 4.2.7.2.686 [id number] [facility] 2021-06-11 00:00:00 2021-06-11 00:00:00 [facility] 1.2.840.114 350.1.13.10 4.2.7.2.686 [id number] 134 [id number] [facility] 2021-06-07 00:00:00 2021-06-07 00:00:00 Telephone Zarina Kennedy [facility] 1.2.840.114 350.1.13.10 4.2.7.2.686 [id number] 134 [id number] [facility] 2021-05-29 15:17:17 2021-05-29 15:49:09 Nurse Visit Nurse, [facility] 1.2.840.114 350.1.13.10 4.2.7.2.686 [id number] 134 [id number] [facility] 2021-05-29 15:07:51 2021-05-29 15:22:51 Tin Plater Visit 2, [facility] 1.2.840.114 350.1.13.10 4.2.7.2.686 [id number] 353 [id number] [facility] 2021-05-29 15:00:00 2021-05-29 15:00:00 Outpatient R [facility] [id number] [facility] 2021-05-29 00:00:00 2021-05-29 00:00:00 Telephone Zarina Kennedy [facility] 1.2.840.114 350.1.13.10 4.2.7.2.686 [id number] 134 [id number] [facility] 2021-05-28 13:26:09 2021-05-28 14:18:04 Routine Visit Zarina Kennedy [facility] Zahra [facility] 1.2.840.114 350.1.13.10 4.2.7.2.686 [id number] 134 [id number] [facility] 2021-05-28 13:30:00 2021-05-28 13:30:00 Outpatient R ZARINA KENNEDY [facility] [id number] [facility] 2021-05-09 11:15:00 2021-05-09 11:15:00 Outpatient R WENDY RIVERA [facility] [id number] [facility] 2021-05-09 10:58:18 2021-05-09 11:13:18 Routine Visit Wendy Rivera [facility] 1.2.840.114 350.1.13.10 4.2.7.2.686 [id number] 134 [id number] [facility] 2021-05-07 00:00:00 2021-05-07 00:00:00 Telephone Zarina Kennedy [facility] 1.2.840.114 350.1.13.10 4.2.7.2.686 [id number] 134 [id number] [facility] 2021-04-27 12:57:28 2021-04-27 13:57:28 Tin Plater Visit Ultrasound, Adc Kian Cantu [facility] 1..840.114 350.1.13.10 4.2.7.2.686 [id number] 134 [id number] [facility] 2021-04-27 13:00:00 2021-04-27 13:00:00 Outpatient R [facility] [id number] [facility] 2021-04-24 00:00:00 2021-04-24 00:00:00 Telephone Zarina Kennedy [facility] 1.2.840.114 350.1.13.10 4.2.7.2.686 [id number] 134 [id number] [facility] 2021-04-21 16:26:26 2021-04-21 16:59:11 Telemedici ne Visit Mihai Fernandez Unknown, Attending [facility] 1.2840.114 350.1.13.10 4.2.7.2.686 [id number] [facility] 2021-04-21 16:30:00 2021-04-21 16:30:00 Outpatient R UNKNOWN, ATTENDING [facility] [id number] [facility] 2021-04-19 11:49:00 2021-04-19 16:10:[address] [facility] 1.2.840.114 350.1.13.10 4.2.7.2.686 [id number] 083 [id number] [facility] 2021-04-19 00:00:00 2021-04-19 00:00:00 Telephone Zarina Kennedy [facility] Professio nal Building 1.2.840.114 350.1.13.10 4.2.7.2.686 [id number] 134 [id number] [facility] 2021-04-11 13:32:48 2021-04-11 13:47:48 Tin Plater Visit 2, Adc Lab Zarina Kennedy [facility] Professio nal Building 1.2.840.114 350.1.13.10 4.2.7.2.686 [id number] 353 [id number] [facility] 2021-04-11 13:05:36 2021-04-11 13:28:34 Routine Visit Zarina Kennedy [facility] Professio nal Building 1.2.840.114 350.1.13.10 4.2.7.2.686 [id number] 134 [id number] [facility] 2021-04-11 13:00:00 2021-04-11 13:00:00 Outpatient R ZARINA KENNEDY [facility] [id number] [facility] 2021-03-14 12:43:31 2021-03-14 13:35:28 Routine Visit Wendy Rivera [facility] Professio nal Building 1.2.840.114 350.1.13.10 4.2.7.2.686 [id number] 134 [id number] [facility] 2021-03-14 12:43:31 2021-03-14 13:35:28 Routine Visit Wendy Rivera [facility] Professio nal Building 1.2.840.114 350.1.13.10 4.2.7.2.686 [id number] 134 [id number] 2021-03-14 13:00:00 2021-03-14 13:00:00 [facility] [id number] 2021-02-28 00:00:00 2021-02-28 00:00:00 Telephone Zarina Kennedy [facility] Building 1.2.840.114 350.1.13.10 4.2.7.2.686 [id number] 134 [id number] [facility] 2021-02-21 13:15:00 2021-02-21 13:15:00 Outpatient R [facility] [id number] [facility] 2021-02-21 00:00:00 2021-02-21 00:00:00 Orders Only Doctor Unassigned, [place] [facility] 1.2.840.114 350.1.13.10 4.2.7.2.686 [id number] 009 [id number] [facility] 2021-02-14 15:01:28 2021-02-14 15:58:16 Routine Visit Zarina Kennedy [facility] Building 1.2.840.114 350.1.13.10 4.2.7.2.686 [id number] 134 [id number] [facility] 2021-02-14 15:45:00 2021-02-14 15:45:00 Outpatient R ZARINA KENNEDY [facility] [id number] [facility] 2021-01-23 00:00:00 2021-01-23 00:00:00 Orders Only Doctor Unassigned, [place] [facility] 1.2840.114 350.1.13.10 4.2.7.2.686 [id number] 009 [id number] [facility] 2021-01-19 00:00:00 2021-01-19 00:00:[address] Zar[address] [facility] Building 1.2.840.114 350.1.13.10 4.2.7.2.686 [id number] 134 [id number] [facility] 2021-01-18 14:10:26 2021-01-18 14:25:26 Tin Plater Visit 2, Adc Lab Zarina Kennedy [facility] Building 1.284.114 350.1.13.10 4.2.7.2.686 [id number] 353 [id number] [facility] 2021-01-18 14:15:00 2021-01-18 14:15:00 Outpatient R [facility] [id number] [facility] 2021-01-18 00:00:00 2021-01-18 00:00:00 Case Management Wendy Rivera [facility] Building 1.2840.114 350.1.13.10 4.2.7.2.686 [id number] 134 [id number] [facility] 2021-01-17 09:00:00 2021-01-17 09:00:00 Outpatient R [facility] [id number] [facility] 2021-01-16 08:45:00 2021-01-16 08:45:00 Outpatient R BRENT ZARINA [facility] [id number] [facility] 2021-01-16 00:00:00 2021-01-16 00:00:00 Telephone Zarina Kennedy [facility] 1.2.840.114 350.1.13.10 4.2.7.2.686 [id number] 134 [id number] [facility] 2021-01-15 11:32:17 2021-01-15 11:47:17 Tin Plater Visit 2, Adc Lab Zarina Kennedy [facility] Professio nal Building 1.2.840.114 350.1.13.10 4.2.7.2.686 [id number] 353 [id number] [facility] 2021-01-15 10:17:01 2021-01-15 11:18:23 Initial Visit Zarina Kennedy [facility] Building 1.2.840.114 350.1.13.10 4.2.7.2.686 [id number] 134 [id number] [facility] 2021-01-15 10:00:00 2021-01-15 10:00:00 Outpatient R ZARINA KENNEDY [facility] [id number] [facility] 2021-01-15 00:00:00 2021-01-15 00:00:00 Telephone Zarina Kennedy [facility] Building 1.2.840.114 350.1.13.10 4.2.7.2.686 [id number] 134 [id number] [facility] 2021-01-15 00:00:00 2021-01-15 00:00:00 Orders Only Doctor Unassigned, [place] [facility] 1.2.840.114 350.1.13.10 4.2.7.2.686 [id number] 009 [id number] [facility] 2021-01-13 18:29:00 2021-01-13 22:52:[address] [facility] 1.2.840.114 350.1.13.10 4.2.7.2.686 [id number] 084 [id number] [facility] 2020-12-01 10:52:00 2020-12-01 12:00:00 [address] GERMAN MARTÍNEZ [facility] [id number] [facility] 2020-07-11 10:39:46 2020-07-11 11:22:54 Office Visit Norma Partida [facility] 1.284.114 350.1.13.10 4.2.7.2.686 [id number] 134 [id number] [facility] 2020-07-11 11:00:00 2020-07-11 11:00:00 Outpatient Stevo OCASIOIRVIN NORMA [facility] [id number] [facility] 2020-07-11 00:00:00 2020-07-11 00:00:00 Orders Only Doctor Unassigned, [place] [facility] 1.284.114 350.1.13.10 4.2.7.2.686 [id number] 009 [id number] [facility] 2020-07-05 16:00:00 2020-07-05 16:00:00 Outpatient Stevo OCASIONORMA BRYAN [facility] [id number] [facility] 2020-06-21 15:22:00 2020-06-21 18:25:00 Emergency Viviana Downey [facility] 1.84.114 350.1.13.10 4.2.7.2.686 [id number] [id number] [facility] 2020-06-21 00:00:00 2020-06-21 00:00:00 Orders Only Doctor Unassigned, [place] [facility] 1.2840.114 350.1.13.10 4.2.7.2.686 [id number] [id number] [facility] 2020-05-01 00:00:00 2020-05-01 00:00:00 Orders Only Doctor Unassigned, [place] [facility] 1.2840.114 350.1.13.10 4.2.7.2.686 [id number] [id number] [facility] 2020-02-28 11:00:00 2020-02-28 11:00:00 Outpatient WENDY WALDROP [facility] [id number] [facility] 2020-02-28 08:13:41 2020-02-28 08:28:41 [facility]medici ne [facility] 1.2.840.114 350.1.13.10 4.2.7.2.686 [id number] 134 [id number] [facility] 2020-02-26 11:00:00 2020-02-26 11:00:00 Outpatient R UNKNOWN, ATTENDING [facility] [id number] [facility] 2020-02-21 00:00:00 2020-02-21 00:00:00 Telephone Wendy Rivera [facility] 1.2.840.114 350.1.13.10 4.2.7.2.686 [id number] 134 [id number] [facility] 2020-02-04 00:00:00 2020-02-04 00:00:00 [facility] Building 1.2.840.114 350.1.13.10 4.2.7.2.686 [id number] 134 [id number] [facility] 2020-02-02 00:00:00 2020-02-02 00:00:00 Refill Zarina Kennedy [facility] 1.2.840.114 350.1.13.10 4.2.7.2.686 [id number] 083 [id number] [facility] 2020-01-30 23:20:00 2020-02-01 13:32:00 Hospital Encounter Zarina Kennedy [facility] 1.2.840.114 350.1.13.10 4.2.7.2.686 [id number] 083 [id number] [facility] 2020-01-31 11:00:00 2020-01-31 11:00:00 Out[facility] [id number] [facility] 2020-01-30 00:00:00 2020-01-30 00:00:00 Orders Only Doctor Unassigned, [place] [facility] 1.2.840.114 350.1.13.10 4.2.7.2.686 [id number] 009 [id number] [facility] 2020-01-28 00:00:00 2020-01-28 00:00:[address] [facility] Building 1.2.840.114 350.1.13.10 4.2.7.2.686 [id number] 134 [id number] [facility] 2020-01-24 14:38:36 2020-01-24 14:53:36 Tin Plater Visit 2, Adc Lab Zarina Kennedy [facility] 1.2.840.114 350.1.13.10 4.2.7.2.686 [id number] [facility] 2020-01-24 13:22:06 2020-01-24 14:11:49 Routine Visit Zarina Kennedy [facility] 1.2.840.114 350.1.13.10 4.2.7.2.686 [id number] 134 [id number] [facility] 2020-01-24 13:15:00 2020-01-24 13:15:00 Outpatient R ZARINA KENNEDY [facility] [id number] [facility] 2020-01-24 00:00:00 2020-01-24 00:00:00 Orders Only Doctor Unassigned, [place] [facility] 1.2.840.114 350.1.13.10 4.2.7.2.686 [id number] 009 [id number] [facility] 2020-01-23 03:41:00 2020-01-23 07:15:00 Hospital Encounter Marco A Neito Zarina Kennedy [facility] 1.2.840.114 350.1.13.10 4.2.7.2.686 [id number] 083 [id number] [facility] 2020-01-21 21:41:00 2020-01-22 01:25:00 Hospital Encounter Marco A Nieto [facility] 1.2.840.114 350.1.13.10 4.2.7.2.686 [id number] 083 [id number] [facility] 2020-01-20 00:00:00 2020-01-20 00:00:00 Case Management Zarina Kennedy [facility] Professio nal Building 1.2.840.114 350.1.13.10 4.2.7.2.686 [id number] 134 [id number] [facility] 2020-01-18 12:35:00 2020-01-18 15:00:00 Hospital Encounter Zarina Kennedy [facility] 1.2.840.114 350.1.13.10 4.2.7.2.686 [id number] 083 [id number] [facility] 2020-01-18 12:35:00 2020-01-18 12:35:00 Outpatient P ZARINA KENNEDY [facility] [id number] [facility] 2020-01-10 13:56:38 2020-01-10 14:42:48 Routine Visit Wendy Rivera [facility] Professio nal Building 1.2840.114 350.1.13.10 4.2.7.2.686 [id number] 134 [id number] [facility] 2020-01-10 14:00:00 2020-01-10 14:00:00 Outpatient R NICOLE WENDY [facility] [id number] [facility] 2020-01-06 11:15:00 2020-01-06 11:15:00 Outpatient R ZARINA KENNEDY [facility] [id number] [facility] 2020-01-06 00:00:00 2020-01-06 00:00:00 Nurse Triage Eda Santos [facility] 1.2.840.114 350.1.13.10 4.2.7.2.686 [id number] 019 [id number] [facility] 2019-12-08 13:39:40 2019-12-08 14:27:14 [facility]ine [facility] 1.2.840.114 350.1.13.10 4.2.7.2.686 [id number] 134 [id number] [facility] 2019-11-01 12:45:26 2019-11-01 13:14:04 Office Visit Martha Cohn Joseph W [facility] MEDICAL TECHNOLOGIST [facility] 1.2.840.114 350.1.13.10 4.2.7.2.686 [id number] [facility] 2019-07-29 00:00:00 2019-07-29 00:00:00 Telephone Zarina Kennedy [facility] 1.2.840.114 350.1.13.10 4.2.7.2.686 [id number] 134 [id number] [facility] 2019-07-28 00:00:00 2019-07-28 00:00:00 Case Management Zarina Kennedy [facility] 1.2.840.114 350.1.13.10 4.2.7.2.686 [id number] 134 [id number] [facility] 2019-07-27 15:56:23 2019-07-27 16:11:23 Nurse Visit Nurse, [facility] Zarina Kennedy [facility] Building 1.2.840.114 350.1.13.10 4.2.7.2.686 [id number] 134 [id number] [facility] 2019-07-23 00:00:00 2019-07-23 00:00:[address] [facility] 1.2.840.114 350.1.13.10 4.2.7.2.686 [id number] 134 [id number] [facility] 2019-07-21 13:20:15 2019-07-21 13:35:15 Tin Plater Visit 1, Adc Lab Zarina Kennedy [facility] 1.2.840.114 350.1.13.10 4.2.7.2.686 [id number] 353 [id number] [facility] 2019-07-20 16:27:05 2019-07-20 17:06:12 Routine Visit [facility] 1.2.840.114 350.1.13.10 4.2.7.2.686 [id number] 134 [id number] [facility] 2019-07-15 00:00:00 2019-07-15 00:00:00 Telephone Zarina Kennedy [facility] 1.2.840.114 350.1.13.10 4.2.7.2.686 [id number] 134 [id number] [facility] 2019-07-14 00:00:00 2019-07-14 00:00:00 Telephone Zarina Kennedy [facility] Building 1.2.840.114 350.1.13.10 4.2.7.2.686 [id number] 134 [id number] [facility] 2019-07-07 14:11:07 2019-07-07 16:17:14 Initial Visit Zarina Kennedy [facility] Building 1.2.840.114 350.1.13.10 4.2.7.2.686 [id number] 134 [id number] [facility] 2019-07-07 00:00:00 2019-07-07 00:00:00 Orders Only Doctor Unassigned, [place] [facility] 1.2.840.114 350.1.13.10 4.2.7.2.686 [id number] 009 [id number] [facility] Results Test Description Test Time Test Comments Results Result Co mments Source [facility] (NA, K, CL, CO2, GLUCOSE, BUN, CREATININE, CA)2023-10-14 11:07:11* Test Item Value Reference Range Interpretation Comme nts NA (test code = 1004072565) 138 mmol/L 135-145 K (test code = 5056080443) 3.5 mmol/L 3.5-5.0 CL (test code = 2759763851) 113 mmol/L 98-108 H CO2 TOTAL (test code = 9153596679) 17 mmol/L 23-31 L AGAP (test code = 4495886758) 8 2-16 BUN (test code = 5211450262) 11 mg/dL 7-23 GLUCOSE (test code = 2790854598) 81 mg/dL 70-110 CREATININE (test code = 6332194191) 0.42 mg/dL 0.50-1.04 L CALCIUM (test code = 2019499691) 8.2 mg/dL 8.6-10.6 L eGFR (test code = 59415-4) 142.0 mL/min/1.73m2 CKD-EPI eGFR (2020). Assuming creatinine has been stable day-to-day for at least three months, the eGFR indicates Category G1 (>= 90 mL/min/1.73 m2) Lab Interpretation (test code = 36263-3) Abnormal [facility] with [id number] 10:52:48* Test Item Value Reference Range Interpretation [...] 33.4 g/dL 31.6-35.1 RDW-SD (test code = 46583-1) 39.2 fL 39.0-49.9 RDW-CV (test code = 788-0) 12.2 % 12.0-15.5 PLT (test code = 777-3) 240 See_Comment [Automated messa ge] The system which generated this result transmitted reference range: 166 - 358 10*3/?L. The reference range was not used to interpret this result as normal/abnormal. MPV (test code = 36919-6) 9.5 fL 9.5-12.9 NRBC/100 WBC (test code = 0578780115) 0.0 See_Comment [Automated [employer] ssage] The system which generated this result transmitted reference range: 0.0 - 10.0 /100 WBCs. The reference range was not used to interpret this result as normal/abnormal. NRBC x10^3 (test code = 9115275918) See_Comment [Automated [employer] ge] The system which generated this result transmitted reference range: 10*3/?L. The reference range was not used to interpret this result as normal/abnormal. GRAN MAT (NEUT) % (test code = 770-8) 53.1 % IMM GRAN % (test code = 6050809771) 0.30 % LYMPH % (test code = 736-9) 37.8 % MONO % (test code = 5905-5) 5.2 % EOS % (test code = 713-8) 3.2 % BASO % (test code = 706-2) 0.4 % GRAN MAT x10^3(ANC) (test code = 7593741546) 4.11 10*3/uL 1.88-7.09 IMM GRAN x10^3 (test code = 7341464351) 0.00-0.06 LYMPH x10^3 (test code = 731-0) 2.92 10*3/uL 1.32-3.29 MONO x10^3 (test code = 742-7) 0.40 10*3/uL 0.33-0.92 EOS x10^3 (test code = 711-2) 0.25 10*3/uL 0.03-0.39 BASO x10^3 (test code = 704-7) 0.03 10*3/uL 0.01-0.07 Lab Interpretation (test code = 86807-9) Abnormal [facility] METABOLIC PANEL (NA, K, CL, CO2, GLUCOSE, BUN, CREATININE, CA)2023-10-14 02:10:35* Test Item Value Reference Range Interpretation Comme nts NA (test code = 9718855530) 134 mmol/L 135-145 L K (test code = 2939420656) 3.4 mmol/L 3.5-5.0 L CL (test code = 5597550512) 111 mmol/L 98-108 H CO2 TOTAL (test code = 8987032315) 17 mmol/L 23-31 L AGAP (test code = 9612005557) 6 2-16 BUN (test code = 2999076333) 14 mg/dL 7-23 GLUCOSE (test code = 8863542830) 82 mg/dL 70-110 CREATININE (test code = 3271935796) 0.45 mg/dL 0.50-1.04 L CALCIUM (test code = 3486274802) 8.0 mg/dL 8.6-10.6 L eGFR (test code = 02897-0) 139.7 mL/min/1.73m2 CKD-EPI eGFR (2020). Assuming creatinine has been stable day-to-day for at least three months, the eGFR indicates Category G1 (>= 90 mL/min/1.73 m2) Lab Interpretation (test code = 56165-9) Abnormal [facility] WITH [id number] 01:49:54* Test Item Value Reference Range Interpretation [...] 33.6 g/dL 31.6-35.1 RDW-SD (test code = 71513-4) 39.0 fL 39.0-49.9 RDW-CV (test code = 788-0) 12.4 % 12.0-15.5 PLT (test code = 777-3) 251 See_Comment [Automated [employer] ge] The system which generated this result transmitted reference range: 166 - 358 10*3/?L. The reference range was not used to interpret this result as normal/abnormal. MPV (test code = 56915-6) 9.4 fL 9.5-12.9 L NRBC/100 WBC (test code = 6710595208) 0.0 See_Comment [Automated [employer] ssage] The system which generated this result transmitted reference range: 0.0 - 10.0 /100 WBCs. The reference range was not used to interpret this result as normal/abnormal. NRBC x10^3 (test code = 9036982958) See_Comment [Automated [employer] ge] The system which generated this result transmitted reference range: 10*3/?L. The reference range was not used to interpret this result as normal/abnormal. GRAN MAT (NEUT) % (test code = 770-8) 62.2 % IMM GRAN % (test code = 0511470927) 0.30 % LYMPH % (test code = 736-9) 28.4 % MONO % (test code = 5905-5) 6.7 % EOS % (test code = 713-8) 2.1 % BASO % (test code = 706-2) 0.3 % GRAN MAT x10^3(ANC) (test code = 9679841204) 6.26 10*3/uL 1.88-7.09 IMM GRAN x10^3 (test code = 9705559551) 0.03 10*3/uL 0.00-0.06 LYMPH x10^3 (test code = 731-0) 2.85 10*3/uL 1.32-3.29 MONO x10^3 (test code = 742-7) 0.67 10*3/uL 0.33-0.92 EOS x10^3 (test code = 711-2) 0.21 10*3/uL 0.03-0.39 BASO x10^3 (test code = 704-7) 0.03 10*3/uL 0.01-0.07 Lab Interpretation (test code = 57168-1) Abnormal [facility] (54804)2023 04:40:07* Test Item Value Reference Range Interpretation Comme nts NA (test code = 6687502385) 142 mmol/L 135-145 K (test code = 2112471596) 3.6 mmol/L 3.5-5.0 CL (test code = 0577099735) 109 mmol/L 98-108 H CO2 TOTAL (test code = 7350881013) 21 mmol/L 23-31 L AGAP (test code = 8262631015) 12 2-16 BUN (test code = 7143488507) 11 mg/dL 7-23 GLUCOSE (test code = 1768958745) 106 mg/dL 70-110 CREATININE (test code = 3183235887) 0.62 mg/dL 0.50-1.04 TOTAL BILI (test code = 8527203388) 0.2 mg/dL 0.1-1.1 CALCIUM (test code = 7440113927) 9.4 mg/dL 8.6-10.6 T PROTEIN (test code = 6305367039) 7.4 g/dL 6.3-8.2 ALBUMIN (test code = 5790168598) 4.5 g/dL 3.5-5.0 ALK PHOS (test code = 0532073489) 79 U/L 34-122 ALTv (test code = 1742-6) 32 U/L 5-35 AST(SGOT) (test code = 2142911531) 28 U/L 13-40 eGFR (test code = 24453-7) 130.1 mL/min/1.73m2 CKD-EPI eGFR (2020). Assuming creatinine has been stable day-to-day for at least three months, the eGFR indicates Category G1 (>= 90 mL/min/1.73 m2) Lab Interpretation (test code = 71695-5) Abnormal [facility] WITH [id number] 04:29:09* Test Item Value Reference Range Interpretation Comme nts WBC (test code = 6690-2) 7.15 See_Comment [Automated [employer]] The system which generated this result transmitted reference range: 4.30 - 11.10 10*3/?L. The reference range was not used to interpret this result as normal/abnormal. RBC (test code = 789-8) 4.45 See_Comment [Automated [employer]] The system which generated this result transmitted [...] 33.4 g/dL 31.6-35.1 RDW-SD (test code = 71328-5) 40.4 fL 39.0-49.9 RDW-CV (test code = 788-0) 12.6 % 12.0-15.5 PLT (test code = 777-3) 269 See_Comment [Automated [employer]] The system which generated this result transmitted reference range: 166 - 358 10*3/?L. The reference range was not used to interpret this result as normal/abnormal. MPV (test code = 60607-4) 9.6 fL 9.5-12.9 NRBC/100 WBC (test code = 6423221409) 0.0 See_Comment [Automated [employer]] The system which generated this result transmitted reference range: 0.0 - 10.0 /100 WBCs. The reference range was not used to interpret this result as normal/abnormal. NRBC x10^3 (test code = [id number]) See_Comment [Automated me ssage] The system which generated this result transmitted reference range: 10*3/?L. The reference range was not used to interpret this result as normal/abnormal. GRAN MAT (NEUT) % (test code = 770-8) 69.3 % IMM GRAN % (test code = [id number]) 0.10 % LYMPH % (test code = 736-9) 22.2 % MONO % (test code = 5905-5) 7.0 % EOS % (test code = 713-8) 1.1 % BASO % (test code = 706-2) 0.3 % GRAN MAT x10^3(ANC) (test code = 6712769133) 4.95 10*3/uL 1.88-7.09 IMM GRAN x10^3 (test code = 1823402373) 0.00-0.06 LYMPH x10^3 (test code = 731-0) 1.59 10*3/uL 1.32-3.29 MONO x10^3 (test code = 742-7) 0.50 10*3/uL 0.33-0.92 EOS x10^3 (test code = 711-2) 0.08 10*3/uL 0.03-0.39 BASO x10^3 (test code = 704-7) 0.01-0.07 [id number] 04:05:00* Test Item Value Reference Range Interpretation Comme [facility] POCT PREG (test code = 1605) Negative On board controls acceptable with C Line (test code = 3574) Yes POCT PREG LOT # (test code = 3575) [id number] POCT PREG TEST DATE ( test code = 3576) 11/12/2024 Lab Interpretation (test cod e = [id number]) Normal [facility], THIRD [id number] 06:03:21* Test Item Value Reference Range Interpretation Comme [facility], THIRD GENERATION (test code = 2821) 1.000 UIU/ML 0.400-4.100 UNLESS OTHERWISE INDICATED, ALL TESTING PERFORMED AT [facility] [address] [place] [id number] SUPERINTENDENT SERVICE: DOMITILA YOUNG M.D. CLIA NUMBER [id number] [facility] [place]. [id number] LIPID [id number] 06:02:54* Test Item Value Reference Range Interpretation [...] SPECIMENS. FOR MOREINFORMATION, SEE CLIENT ANNOUNCEMENT AT [email or web address] RISK RATIO LDL/HDL (test code = 2238) 2.56 RATIO <3.22 COMPREHENSIVE METABOLIC [id number] 06:02:54* Test Item Value Reference Range Interpretation Comme nts GLUCOSE (test code = 2217) 84 MG/DL 70-99 BUN (test code = 2208) 9 MG/DL 6-20 CREATININE (test code = 2214) 0.67 MG/DL 0.60-1.30 eGFR (2020 CKD-EPI) (test code = 84381) 127 ML/MIN/1.73 >60 CALC BUN/CREAT (test code [...] 30 U/L 5-40 CBC W/AUTO DIFF WITH [id number] 04:02:12* Test Item Value Reference Range Interpretation [...] = 1065) 0.0 /100 WBC'S See_Comment [Automated App47a ge] The system which generated this result [...] 0.00-0.10 ABS NUCLEATED RBCS (test code = 52717) 0.00 K/UL 0.00-0.11 HEMOGLOBIN [id number] 03:49:49* Test Item Value Reference Range Interpretation Comme nts HEMOGLOBIN A1c (test code = 80411) 5.3 % 4.2-5.6 Notes Date/Time Note Provider Source 2024-04-14 15:50:00 Received call from registration that patient returned the urine cup and left the lobby. Priya De Los Santos RN [facility] 2024-04-14 14:53:55 Pt stating she can't taste or feel part of her tongue. Feels like left side of face is swollen. Unsure of when exactly it happened. States this has happened before but it was her legs. Ambulated without obvious gait disturbances. NAT Esperanza Frazier RN [facility] 2024-04-11 14:15:46 Patient dc home. Take otc meds per MD machado instructions. Verbalized understanding. Signed paper work. [facility] 2024-04-11 12:35:41 Complains of sore throat x2 days with fever. Cali Zaragoza RN [facility] 2024-04-11 12:29:00 Images from the original note were not included. [facility] Emergency Department Note Patient Name: [...] Right 10/10/2023 Surgeon: Mallorie Alejandra MD; Location: [facility] Review of Systems: Review of [...] signed by: Fide Freitas MD 04/11/24 1337 [facility] 2023-11-13 13:45:00 Images from the original note were not included. Venipuncture collection performed by clean technique on the left anticubitus. Total of 1 attempts were made. Slight pressure and a bandage/dressing were applied to the site(s). The patient experienced no complications. The following specimens were processed according to instructions and sent to [facility] laboratories per lab order on 11/13/2023 : LT BLUE SST 3 RED 1 LAV PPT DK GREEN (LiHep) DK GREEN (SodH) RODRIGUEZ DK BLUE (K2) DK BLUE (S) ACD Blood Culture NIPT/NTD [facility] 2023-11-13 13:15:00 Addended by: FIORDALIZA TATUM RN on: 11/13/2023 01:45 PM Modules accepted: Orders [facility]
[2024-09-18 14:24] LABS: Albumin 3.4 g/dL (3.4-5.0); Anion Gap 10.1 mEq/L (5.0-15.0); Bilirubin Total 0.4 mg/dL (0.2-1.0); Globulin 3.5 g/dL (2.3-3.5); Potassium 3.1 mEq/L (3.5-5.1); Protein, Total 6.9 g/dL (6.4-8.2)
[2024-09-18] MEDS ORDERED: FENTANYL CITR 100 MCG/2 ML ONE ×2 (14:24→15:31)
[2024-09-18] MEDS ORDERED: NA CHLORIDE 0.9% 1,000 ML ONE (14:25)
[2024-09-18] MEDS ORDERED: CALCIUM GLUCONATE 1 GM IVPB 1 GM/50 ML BAG IV ONE (15:00)
--- NOTE | 2024-09-18 15:42 | RAD REPORT ---
EXAM: Soft Tissue Neck W/Contr INDICATION: Neck pain TECHNIQUE: Helical CT examination of the neck [id number] cc Isovue-300 IV contrast. Sagittal and coronal reformations were generated. This exam was performed according to our departmental dose-optimization program, which includes automated exposure control, adjustment of the mA and/or kV according to patient size and/or use of iterative reconstruction technique. COMPARISON: None. FINDINGS: Post surgical changes of a thyroidectomy.. Small to moderate amount of subcutaneous emphysema is present within the lower neck adjacent to the s ubglottic trachea extending into the anterior mediastinum of the upper chest. A small amount of ill-defined fluid is present. A discrete significant well-formed fluid collection t o suggest an abscess is not noted. A significant hematoma is not present. The remainder of the pharynx, larynx and subglottic trachea are unremarkable. The parotid and submandibular glands appear unremarkable. Lungs are clear. No pneumothorax. No pneumoperitoneum. A pleural effusion is not present. A pericardial effusion not noted. IMPRESSION: Patient is status post thyroidectomy. Small to moderate amount of subcutaneous emphysema within the lower neck extending into the anterior mediastinum of the upper chest. An obvious tracheal tear is not visualized but can be missed on CT. No pneumothorax. No pleural effusion.
--- NOTE | 2024-09-18 15:45 | RAD REPORT ---
EXAM:Thorax Wo Con CLINICAL INDICATION: Chest pain TECHNIQUE: CT chest performed.. Axial, sagittal and coronal reconstructions were obtained. One or mor e of the following dose reduction techniques were used: Automated exposure control, adjustment of the mA and/or kV according to the patient size, and/or iterative reconstruction. Unless otherwise specified, incidental findings do not require dedicated imaging follow-up. [id number]. COMPARISON: None FINDINGS: Post surgical changes of a thyroidectomy.. Small to moderate amount of subcutaneous emphysema is present within the lower neck adjacent to the s ubglottic trachea extending into the anterior mediastinum of the upper chest. A small amount of ill-defined fluid is present. A discrete significant well-formed fluid collection t o suggest an abscess is not noted. A significant hematoma is not present. The remainder of the pharynx, larynx and subglottic trachea are unremarkable. The parotid and submandibular glands appear unremarkable. Lungs are clear. No pneumothorax. No pneumoperitoneum. A pleural effusion is not present. A pericardial effusion not noted. IMPRESSION: Patient is status post thyroidectomy. Small to moderate amount of subcutaneous emphysema within the lower neck extending into the anterior mediastinum of the upper chest. An obvious tracheal tear is not visualized but can be missed on CT. No pneumothorax. No pleural effusion.
--- NOTE | 2024-09-18 15:55 | EDPHYS ---
Physician Documentation [facility] Name: Devi Calvert Age: 23 yrs Sex: Female : 2000 Arrival Date: 09/18/2024 Time: 13:53 Bed 8 Private MD: ED Physician Raffaele Simpson HPI: 09/18 14:29 This 23 yrs old Female presents to ER via EMS with complaints of Tingling to madi hands. 14:29 Pt is a 23 year old female who presents for worsening tingling in hands and pain to back of neck. Pt had a total thyroidectomy [address] Scott. Pt was seen here earlier today and had a calcium level of 7.7. 1 gram of Calcium was given IV and pt was discharged home. Pt states the symptoms have not improved. . Historical: - Allergies: 13:58 No Known Allergies; aa5 - PMHx: 13:57 Anxiety; Asthma; Depression; IPH; Migraines; previous suicide attempt; Schizophrenia; aa5 THYROID CANCER; vocal chords problem; - PSHx: 13:57 Cholecystectomy; Thyroidectomy; aa5 - Immunization history:: Adult Immunizations up to date. - Infectious Disease History:: Denies. - Social history:: Smoking status: Patient denies any tobacco usage or history of. ROS: 14:28 Constitutional: As per HPI kb Exam: 14:28 Constitutional: This is a well developed, well nourished patient who is awake, alert, kb and in no acute distress. Head/Face: Normocephalic, atraumatic. ENT: Moist Mucous membranes Cardiovascular: Regular rate Respiratory: Respirations even and unlabored. No increased work of breathing. Talking in full sentences Abdomen/GI: Soft, non-tender. No distention Skin: Warm, dry with normal turgor. Normal color. MS/ Extremity: Pulses equal, no cyanosis. Neurovascular intact. Full, normal range of motion. Neuro: Awake and alert, GCS 15, oriented to person, place, time, and situation. 14:28 Neck: External neck: tenderness, that is mild, of the right posterior aspect of neck, right lateral aspect of neck, left posterior aspect of neck and left lateral aspect of neck, surgical incision with steristrips in place to anterior neck, Vital Signs: 13:54 BP 113 / 71; Pulse 79; Resp 14 S; Temp 97.8(TE); Pulse Ox 100% on R/A; Weight 60.33 kg aa5 (R); Height 5 ft. 2 in. (R); 15:25 BP 105 / 83; Pulse 78; Resp 16 S; Pulse Ox 100% on R/A; aa5 16:30 BP 118 / 79; Pulse 57; Resp 16 S; Pulse Ox 100% on R/A; aa5 13:54 Body Mass Index 24.33 (60.33 kg, 157.48 cm) aa5 MDM: 13:54 Medical Screening Exam initiated 13:56 Management of patient was discussed with the following: Manager Database: Dr Scott called, no kb answer. Message left, awaiting callback. 14:28 Data reviewed: vital signs, nurses notes. kb 14:30 Historians other than the Patient: Parent: father. kb 15:52 Differential Diagnosis postop pain, abnormal electrolytes, infection. Consideration of kb Admission/Observation Patient was admitted/placed on observation. Escalation of care including admission/observation considered. Management of patient was discussed with the following: Hospitalist: Hospitalist team, pt accepted under Dr Green. Counseling: I had a detailed discussion with the patient and/or guardian regarding the historical points, exam findings, and any diagnostic results supporting the discharge/admit diagnosis, lab results, radiology results, the need for further work-up and treatment in the hospital. 15:53 Management of patient was discussed with the following: Manager Database: attempted to call leida Scott 2 more times prior to admission with no answer. 16:36 Management of patient was discussed with the following: Manager Database: Discussed case with Dr Haines. Agrees to consult if needed, will attempt to contact Dr Scott as well. . 17:07 Management of patient was discussed with the following: Manager Database: Dr Scott returned kb call and will see pt in the morning. Recommends calcium replacement per protocol. Message relayed to Dr Green. 09/18 13:55 Order name: CMP; Complete Time: 14:26 09/18 16:35 Order name: Basic Metabolic Panel EDMS 09/18 16:35 Order name: Basic Metabolic Panel EDMS 09/18 16:35 Order name: Calcium Level EDMS 09/18 16:35 Order name: Calcium Level EDMS 09/18 16:35 Order name: CBC with Automated Diff EDMS 09/18 16:35 Order name: CBC with Automated Diff EDMS 09/18 16:35 Order name: Magnesium EDMS 09/18 16:35 Order name: Magnesium EDMS 09/18 16:35 Order name: Phosphorus EDMS 09/18 16:35 Order name: Phosphorus EDMS 09/18 16:35 Order name: Basic Metabolic Panel EDMS 09/18 16:35 Order name: Magnesium EDMS 09/18 16:35 Order name: Phosphorus EDMS 09/18 14:45 Order name: CT Soft Tissue Neck W/contr; Complete Time: 15:46 kb 09/18 15:13 Order name: CT Chest Wo Con; Complete Time: 15:46 rt 09/18 16:35 Order name: CONS Physician Consult EDTN 09/18 13:55 Order name: IV Start; Complete Time: 13:56 kb Administered Medications: 14:30 Drug: fentaNYL (PF) IVP 25 mcg IVP once Route: IVP; Site: right antecubital; aa5 14:35 Follow up: Response: No adverse reaction aa5 14:30 Drug: NS 0.9% IV 1000 ml IV at 1000 ml once; to be given as a bolus over 60 minutes aa5 Route: IV; Rate: 1000 ml; Site: right antecubital; 15:30 Follow up: IV Status: Completed infusion; IV Intake: 1000ml aa5 15:27 Drug: Calcium Gluconate IVPB 1 grams IVPB once over 60 mins; (mix in NS 100 mL) Route: aa5 IVPB; Infused Over: 60 mins; Site: right antecubital; 16:27 Follow up: IV Status: Completed infusion; IV Intake: 50ml aa5 16:27 Follow up: IV Status: Completed infusion; IV Intake: 50ml ; Concentration available in aa5 pyxis is Calcium gluconate 1gram/50mls. 15:33 Drug: fentaNYL (PF) IVP 25 mcg IVP once Route: IVP; Site: right antecubital; aa5 16:09 Follow up: Response: No adverse reaction; Marked relief of symptoms; Pain is decreased aa5 Disposition: 19:01 Co-signature as Attending Physician, Raffaele Simpson MD I reviewed the patient's care rt provided by the Advanced Practice Provider and agree with the diagnosis and treatment plan. Disposition Summary: 09/18/24 15:55 Hospitalization Ordered Notes: Hospitalization Status: Observation kb Provider: Cristian Green Location: Telemetry/MedSurg (observation) kb Condition: Stable kb Problem: new kb Symptoms: are unchanged kb Bed/Room Type: Standard kb Room Assignment: 218(09/18/24 16:37) eb Diagnosis - Hypocalcemia kb Forms: - Medication Reconciliation Form kb - SBAR form kb - Leadership Thank You Letter kb Signatures: Dispatcher [employer] EDBatsheva Henry, CASE-Ford WILLOUGHBY-Gege Kumar RN RN aa5 Fiordaliza Estrella Ryan, MD MD rt Corrections: (The following items were deleted from the chart) 16:37 15:55 kb eb 17:08 17:07 Management of patient was discussed with the following: Manager Database: Dr Tyler casarez returned call and will see pt in the morning. Recommends calcium replacement per protocol . kb
--- NOTE | 2024-09-18 15:55 | ER ---
Nurse's Notes [facility] Name: Devi Calvert Age: 23 yrs Sex: Female : 2000 Arrival Date: 09/18/2024 Time: 13:53 Bed 8 Private MD: Diagnosis: Hypocalcemia Presentation: 09/18 13:54 Chief complaint: Pt was just released from ER. Pt had thyroidectomy by Dr. Scott aa5 09/16/24, pt states "the tingling is getting worse". Pt c/o increased tingling to madi hands. Coronavirus screen: At this time, the client does not indicate any symptoms associated with coronavirus-19. Ebola Screen: Patient denies travel to an Ebola-affected area in the 21 days before illness onset. Initial Sepsis Screen: Does the patient meet any 2 criteria? No. Patient's initial sepsis screen is negative. Does the patient have a suspected source of infection? No. Patient's initial sepsis screen is negative. Risk Assessment: Do you want to hurt yourself or someone else? Patient reports no desire to harm self or others. Onset of symptoms was September 18, 2024. 13:54 Acuity: CHANTAL 3 aa5 13:54 Method Of Arrival: EMS: [facility] aa5 Historical: - Allergies: 13:58 No Known Allergies; aa5 - PMHx: 13:57 Anxiety; Asthma; Depression; IPH; Migraines; previous suicide attempt; Schizophrenia; aa5 THYROID CANCER; vocal chords problem; - PSHx: 13:57 Cholecystectomy; Thyroidectomy; aa5 - Immunization history:: Adult Immunizations up to date. - Infectious Disease History:: Denies. - Social history:: Smoking status: Patient denies any tobacco usage or history of. Screenin:55 [facility] ED Fall Risk Assessment (Adult) History of falling in the last 3 months, aa5 including since admission No falls in past 3 months (0 pts) Confusion or Disorientation No (0 pts) Intoxicated or Sedated No (0 pts) Impaired Gait No (0 pts) Mobility Assist Device Used No (0 pt) Altered Elimination No (0 pt) Score/Fall Risk Level 0 - 2 = Low Risk Oriented to surroundings, Maintained a safe environment, Educated pt \\T\\ family on fall prevention, incl call for assistance when getting out of bed. Abuse screen: Denies threats or abuse. Nutritional screening: No deficits noted. Tuberculosis screening: No symptoms or risk factors identified. Assessment: 13:55 General: Appears comfortable, Behavior is calm, cooperative. Pain: Complains of pain in aa5 posterior and anterior neck, greater to posterior neck. Pain currently is 8 out of 10 on a pain scale. Quality of pain is described as pressure, shooting, Is continuous, Aggravated by movement of neck. Neuro: Level of Consciousness is awake, alert, obeys commands, Oriented to person, place, time, situation, Pt reports tingling to madi hands. . Cardiovascular: Patient's skin is warm and dry. Respiratory: Airway is patent Respiratory effort is even, unlabored, Respiratory pattern is regular, symmetrical. GI: Patient currently denies intolerance of fluids, intolerance of food, nausea, vomiting. : No signs and/or symptoms were reported regarding the genitourinary system. EENT: No signs and/or symptoms were reported regarding the EENT system. Derm: Skin is pink, warm \\T\\ dry. Incision noted to anterior aspect of neck with Steri strips in place noted, no s/s of infection noted or reported, mild swelling noted to site. 15:05 Reassessment: Pt in CT . aa5 15:25 Reassessment: Pt back from CT scan . aa5 15:28 Reassessment: Pt now c/o increased neck pain after CT scan, provider was notified. . aa5 15:28 General: Appears uncomfortable. aa5 16:03 Reassessment: Patient is alert, oriented x 3, equal unlabored respirations, skin aa5 warm/dry/pink. Patient states feeling better. Patient states symptoms have improved. Pain: Pain currently is 6 out of 10 on a pain scale. 16:09 Reassessment: Patient is alert, oriented x 3, equal unlabored respirations, skin aa5 warm/dry/pink. Patient states feeling better. General: Appears comfortable, warm blankets provided for comfort. . 17:00 Reassessment: Patient is alert, oriented x 3, equal unlabored respirations, skin aa5 warm/dry/pink. Vital Signs: 13:54 BP 113 / 71; Pulse 79; Resp 14 S; Temp 97.8(TE); Pulse Ox 100% on R/A; Weight 60.33 kg aa5 (R); Height 5 ft. 2 in. (R); 15:25 BP 105 / 83; Pulse 78; Resp 16 S; Pulse Ox 100% on R/A; aa5 16:30 BP 118 / 79; Pulse 57; Resp 16 S; Pulse Ox 100% on R/A; aa5 13:54 Body Mass Index 24.33 (60.33 kg, 157.48 cm) aa5 ED Course: 13:54 Patient arrived in ED. aa5 13:54 Batsheva Mora FNP-C is [facility]. kb 13:54 Raffaele Simpson MD is Attending Physician. kb 13:54 Arm band placed on. aa5 13:54 Patient has correct armband on for positive identification. Bed in low position. Call aa5 light in reach. Side rails up X 1. Pulse ox on. NIBP on. 13:56 Triage completed. aa5 13:56 Gege Min, BERNA is Primary Nurse. aa5 15:17 CT Soft Tissue Neck W/contr In Process Unspecified. EDMS 15:20 CT Chest Wo Con In Process Unspecified. EDMS 15:55 Cristian Green MD is Hospitalizing Provider. kb 17:15 No provider procedures requiring assistance completed. Patient admitted, IV remains in aa5 place. Administered Medications: 14:30 Drug: fentaNYL (PF) IVP 25 mcg IVP once Route: IVP; Site: right antecubital; aa5 14:35 Follow up: Response: No adverse reaction aa5 14:30 Drug: NS 0.9% IV 1000 ml IV at 1000 ml once; to be given as a bolus over 60 minutes aa5 Route: IV; Rate: 1000 ml; Site: right antecubital; 15:30 Follow up: IV Status: Completed infusion; IV Intake: 1000ml aa5 15:27 Drug: Calcium Gluconate IVPB 1 grams IVPB once over 60 mins; (mix in NS 100 mL) Route: aa5 IVPB; Infused Over: 60 mins; Site: right antecubital; 16:27 Follow up: IV Status: Completed infusion; IV Intake: 50ml aa5 16:27 Follow up: IV Status: Completed infusion; IV Intake: 50ml ; Concentration available in aa5 pyxis is Calcium gluconate 1gram/50mls. 15:33 Drug: fentaNYL (PF) IVP 25 mcg IVP once Route: IVP; Site: right antecubital; aa5 16:09 Follow up: Response: No adverse reaction; Marked relief of symptoms; Pain is decreased aa5 Medication: 16:04 VIS not applicable for this client. aa5 Intake: 15:30 IV: 1000ml; Total: 1000ml. aa5 16:27 IV: 50ml; Total: 1050ml. aa5 Outcome: 15:55 Decision to Hospitalize by Provider. kb 17:15 Admitted to Med/surg accompanied by tech, via wheelchair, with chart, Other Report aa5 faxed to admitting nurse. 17:15 Condition: stable 17:15 Instructed on the need for admit, Demonstrated understanding of instructions, 17:20 Patient left the ED. aa5 Signatures: Dispatcher [employer] EDMS Batsheva Mora, CASE-C BARREL BANDER-Gege Kumar, RN RN aa5 Corrections: (The following items were deleted from the chart) 13:57 13:54 BP 113 / 71; Pulse 79bpm; Resp 14bpm; Spontaneous; Pulse Ox 100% RA; Temp 97.8F aa5 Temporal; aa5 16:15 13:55 Neuro: Level of Consciousness is awake, alert, obeys commands, Oriented to aa5 person, place, time, situation, aa5 19:19 16:27 IV Status: Completed infusion; IV Intake: 50ml aa5 aa5
[2024-09-18] MEDS ORDERED: ACETAMINOPHEN 325 MG TABLET PO PRN (16:27)
--- NOTE | 2024-09-18 16:35 | P.HP ---
Certification for Inpatient Patient admitted to: Observation With expected LOS: <2 Midnights Patient will require the following post-hospital care: None Practitioner: I am a practitioner with admitting privileges, knowledge of patient current condition, hospital course, and medical plan of care. Services: Services provided to patient in accordance with Admission requirements found in Title 42 Section 412.3 of the Code of Federal Regulations Patient History Date of Service: 09/18/24 Reason for admission: hypocalcemia s/p thyroidectomy History of Present Illness: Devi Calvert is a 23 year of female with a Pmhx anxiety, asthma, thyroid cancer, Depression, IPH, schizophrenia, previous suicide attempt, vocal chord problems who presents to the ED with paresthesis to bilateral fingers, cheeks and eye lids. She presented to the ED earlier this morning with hypocalcemia 7.7 findings on lab work and was given calcium then discharged. She returned to the ED a few hours after discharge with new cramping to bilateral lower extremities. Calcium level now dropped to 7.5 requiring an additional gram of calcium to be given. On examination, incision approximated and steri strips clean, dry, intact. She is conversing well, good ROM to neck, some posterior neck pain likely from surgical positioning. Initial vitals 113 / 71; Pulse 79; Resp 14 S; Temp 97.8(TE); Pulse Ox 100% on R/A; Chest CT reports "Patient is status post thyroidectomy. Small to moderate amount of subcutaneous emphysema within the lower neck extending into the anterior mediastinum of the upper chest. An obvious tracheal tear is not visualized but can be missed on CT. No pneumothorax. No pleural effusion." Soft tissue neck CT reports "Patient is status post thyroidectomy. Small to moderate amount of subcutaneous emphysema within the lower neck extending into the anterior mediastinum of the upper chest. An obvious tracheal tear is not visualized but can be missed on CT. No pneumothorax. No pleural effusion. " Devi will be admitted to hospitalist service for further evaluation of calcium level s/p thyroidectomy, Dr. Scott consulted. 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 -: migraines -: suicide attempt -: back biopsy - Social History Smoking Status: Never smoker Alcohol use: No CD- Drugs: No Caffeine use: Yes Review of Systems General: As per HPI Physical Examination - Physical Exam General: Alert, In no apparent distress, Oriented x3 HEENT: Normocephalic, Mucous membr. moist/pink Neck: Supple, Other (incision with steri strips CDI) Respiratory: Clear to auscultation bilaterally, Normal air movement Cardiovascular: No edema, Normal pulses, Regular rate/rhythm, Normal S1 S2 Capillary refill: <2 Seconds Gastrointestinal: Normal bowel sounds, Soft and benign Musculoskeletal: No clubbing Integumentary: No rashes Neurological: Normal speech, Normal tone - Studies Laboratory Data (last 24 hrs) 09/18/24 13:57 Sodium 140 Potassium 3.1 L BUN 10 Creatinine 0.70 Glucose 118 H Total Bilirubin 0.4 AST 33 ALT 32 Alkaline Phosphatase 67 Assessment and Plan - Plan assessment and plan Hypocalcemia s/p thyroidectomy history of thyroid cancer Vocal chord problems -Chest CT reports "Patient is status post thyroidectomy. Small to moderate amount of subcutaneous emphysema within the lower neck extending into the anterior mediastinum of the upper chest. An obvious tracheal tear is not visualized but can be missed on CT. No pneumothorax. No pleural effusion." - Soft tissue neck CT reports "Patient is status post thyroidectomy. Small to moderate amount of subcutaneous emphysema within the lower neck extending into the anterior mediastinum of the upper chest. An obvious tracheal tear is not visualized but can be missed on CT. No pneumothorax. No pleural effusion. " -Calcium 7.5, one gram calcium given in the ED -Pain control with toradol, tylenol, norco, and lidocaine patch -no infection noted on scans -Monitor calcium level at 1900 -monitor all electrolytes -monitor Vit D levels -replace calcium PRN -Consult Dr. Scott Anxiety/Depression Schizophrenia Attempted suicide in the past Migraines -continue home medications -Supportive care DVT ppx SCD Full code LOS 24 hour OBS Discharge Plan: Home Plan to discharge in: 24 Hours - Advance Directives Does patient have a Living Will: No Does patient have a Durable POA for Healthcare: No
[2024-09-18] MEDS: HYDROCODONE/APAP 7.5/325 MG TAB PO PRN (17:38)
[2024-09-18] MEDS: NA CHLORIDE 0.9% 1,000 ML IV SCH (17:39)
[2024-09-18 17:54] VITALS: BMI 24.3
[2024-09-18 19:02] LABS: Anion Gap 11.2 mEq/L (5.0-15.0); Phosphorus 5.5 mg/dL (2.5-4.9); Potassium 3.2 mEq/L (3.5-5.1)
[2024-09-18] MEDS: QUETIAPINE 25 MG TAB PO SCH ×2 (20:56→21:52)
[2024-09-18] MEDS ORDERED: ALBUTEROL INHALER 200 PUFF/6.7 GM IH PRN (21:51)
[2024-09-18] MEDS: FLUOXETINE 20 MG CAP PO SCH (21:52)
[2024-09-18] MEDS: AMOXICILLIN TRIHYDR 250 MG CAP PO SCH (23:04)
[2024-09-19 00:15] LABS: Anion Gap 10.7 mEq/L (5.0-15.0); Phosphorus 6.2 mg/dL (2.5-4.9)
[2024-09-19 00:17] LABS: Magnesium 1.9 mg/dL (1.6-2.4); Potassium 3.7 mEq/L (3.5-5.1)
[2024-09-19] MEDS: KETOROLAC 30 MG/ML INJ IV PRN (02:39)
[2024-09-19] MEDS: CALCIUM GLUCONATE 1 GM IVPB 1 GM/50 ML BAG IV ONE ×3 (03:26→18:07)
[2024-09-19 06:08] LABS: Absolute Eosinophils 0.1 K/uL (0-0.5); Absolute Lymphocytes (CBC) 2.3 K/uL (0.7-4.9); Absolute Monocytes 0.4 K/uL (0.1-1.3); Absolute Neutrophil 3.2 K/uL (1.8-8.0); Anion Gap 9.4 mEq/L (5.0-15.0); Basophils % 0.6 % (0-1.3); Eosinophils % 2.4 % (0-4.4); Hematocrit 34.5 % (36.0-45.0); Hemoglobin 11.4 g/dL (12.0-15.0); Lymphocytes % 37.9 % (15.3-44.8); MCH 28.5 pg (27.0-35.0); MCHC 33.1 g/dL (32.0-36.0); MCV 85.9 fL (80-100); MPV 7.8 fL (7.6-11.3); Magnesium 1.8 mg/dL (1.6-2.4); Monocytes % 6.5 % (3.3-12.3); Neutrophils % 52.6 % (41.7-73.7); Phosphorus 6.7 mg/dL (2.5-4.9); Platelets 227 thou/uL (152-406); Potassium 3.4 mEq/L (3.5-5.1); RBC Red Blood Cell Count 4.01 M/uL (3.86-4.86); Red Cell Distribution Width 13.8 % (12.1-15.2)
[2024-09-19] MEDS: LEVOTHYROXINE SOD 0.1 MG TAB PO SCH (06:32)
--- NOTE | 2024-09-19 07:49 | P.PN ---
Date of Service: 09/19/24 Subjective Awake, feeling the same, continues with posterior neck pain likely 2/2 surgical positioning, reports being able to ambulate no respiratory distress noted, no swelling to the neck, steri strips remain CDI Calcium remaining low, will continue to draw labs Q4h ROS 10 point ROS as noted above, otherwise negative Physical Exam General: Alert and Oriented x3, NAD HEENT: Normocephalic, Mucous membr. moist/pink Neck: Supple, Other (incision with steri strips CDI) Respiratory: Clear to auscultation bilaterally, Normal air movement, on RA Cardiovascular: No edema, Normal pulses, NSR, Normal S1 S2 Capillary refill: <2 Seconds Gastrointestinal: Normal bowel sounds, Soft and benign Musculoskeletal: No clubbing Integumentary: No rashes Neurological: Normal speech, Normal tone Vitals Reviewed Problem list Hypocalcemia s/p thyroidectomy history of thyroid cancer Vocal chord problems Anxiety/Depression Schizophrenia Attempted suicide in the past Migraines Assessment and Plan Hypocalcemia s/p thyroidectomy history of thyroid cancer Vocal chord problems Hypotensive -Chest CT reports "Patient is status post thyroidectomy. Small to moderate amount of subcutaneous emphysema within the lower neck extending into the anterior mediastinum of the upper chest. An obvious tracheal tear is not visualized but can be missed on CT. No pneumothorax. No pleural effusion." - Soft tissue neck CT reports "Patient is status post thyroidectomy. Small to moderate amount of subcutaneous emphysema within the lower neck extending into the anterior mediastinum of the upper chest. An obvious tracheal tear is not visualized but can be missed on CT. No pneumothorax. No pleural effusion. " -Calcium 7.5/7.5/7.5/7.0/7.1/7.4-continue to trend -PTH <6.3 -Phos 5.5/6.2/6.7/6.5- continue trending -Pain control with toradol, tylenol, norco, and lidocaine patch -no infection noted on scans -Monitor calcium level at 1900 -monitor all electrolytes -monitor Vit D levels -Calcium gluconate this morning x2 -calcium carbonate 1250 mg BID -calcitrol 0.25 mcg BID -Vitamin D 50,000 units x 7 days -Dr. Scott following -BP 93/61, saline bolus Anxiety/Depression Schizophrenia Attempted suicide in the past Migraines -continue home medications -Supportive care DVT ppx SCD Full code LOS 24 hour OBS Discharge Plan: Home Plan to discharge in: 24 Hours
[2024-09-19] MEDS: LIDOCAINE 4% PATCH TOP SCH (08:19)
[2024-09-19] MEDS: CALCIUM CARBONATE 500 MG TAB PO SCH (08:20)
[2024-09-19] MEDS: CALCITROL 0.25 MCG CAP PO SCH (08:21)
[2024-09-19] MEDS: POTASSIUM 25 MEQ EFFERV TAB PO ONE (08:21)
[2024-09-19] MEDS: MAGNESIUM SULFATE 1 gm IVPB 1 GM/100 ML BAG IV ONE (08:22)
[2024-09-19 09:15] LABS: Anion Gap 10.5 mEq/L (5.0-15.0); Magnesium 1.8 mg/dL (1.6-2.4); Phosphorus 6.5 mg/dL (2.5-4.9); Potassium 3.5 mEq/L (3.5-5.1)
[2024-09-19] MEDS: DRISDOL (VITAMIN D=ERGOCALCIFEROL) 50000 UNIT CAP PO SCH (10:04)
[2024-09-19] MEDS: NA CHLORIDE 0.9% 250 ML IV ONE (11:34)
[2024-09-19 13:38] LABS: Anion Gap 9.3 mEq/L (5.0-15.0); Magnesium 2.2 mg/dL (1.6-2.4); Phosphorus 5.2 mg/dL (2.5-4.9); Potassium 3.3 mEq/L (3.5-5.1)
[2024-09-19 17:14] LABS: Anion Gap 8.8 mEq/L (5.0-15.0); Magnesium 2.2 mg/dL (1.6-2.4); Phosphorus 5.8 mg/dL (2.5-4.9); Potassium 3.8 mEq/L (3.5-5.1)
[2024-09-19] MEDS: LORazepam 2 MG/ML VIAL IV ONE (18:11)
[2024-09-19] MEDS: LIDOCAINE 4% PATCH TOP ONE (20:07)
[2024-09-19 21:40] LABS: Anion Gap 9.8 mEq/L (5.0-15.0); Magnesium 2.1 mg/dL (1.6-2.4); Phosphorus 5.6 mg/dL (2.5-4.9); Potassium 3.8 mEq/L (3.5-5.1)
[2024-09-20 04:58] VITALS: O2SAT 96
[2024-09-20 06:00] LABS: Anion Gap 9.5 mEq/L (5.0-15.0); Potassium 3.5 mEq/L (3.5-5.1)
[2024-09-20 06:23] LABS: Phosphorus 7.3 mg/dL (2.5-4.9)
[2024-09-20] MEDS: CALCIUM GLUCONATE 1 GM IVPB 1 GM/50 ML BAG IV ONE (06:43)
[2024-09-20] MEDS: CALCITROL 0.25 MCG CAP PO SCH ×2 (08:35→20:45)
[2024-09-20] MEDS: LIOTHYRONINE SOD 25 MCG TAB PO SCH (08:36)
[2024-09-20 10:17] LABS: Anion Gap 10.8 mEq/L (5.0-15.0); Magnesium 2.1 mg/dL (1.6-2.4); Potassium 3.8 mEq/L (3.5-5.1)
--- NOTE | 2024-09-20 10:29 | P.PN ---
Date of Service: 09/20/24 Subjective Awake, feeling better minimal muscle discomfort this morning ROS 10 point ROS as noted above, otherwise negative Physical Exam General: AAOx3, NAD HEENT: Normocephalic, Mucous membr. moist/pink Neck: Supple, Other (incision with steri strips CDI) Respiratory: Clear to auscultation bilaterally, Normal air movement, on RA Cardiovascular: No edema, NSR, Normal S1 S2 Capillary refill: <2 Seconds Gastrointestinal: Normal bowel sounds, Soft and benign on palpation Musculoskeletal: No clubbing Integumentary: No rashes Neurological: Normal speech, Normal tone Vitals Reviewed Problem list Hypocalcemia s/p thyroidectomy history of thyroid cancer Vocal chord problems Anxiety/Depression Schizophrenia Attempted suicide in the past Migraines Assessment and Plan Hypocalcemia s/p thyroidectomy history of thyroid cancer Vocal chord problems Hypotensive -Chest CT reports "Patient is status post thyroidectomy. Small to moderate amount of subcutaneous emphysema within the lower neck extending into the anterior mediastinum of the upper chest. An obvious tracheal tear is not visualized but can be missed on CT. No pneumothorax. No pleural effusion." - Soft tissue neck CT reports "Patient is status post thyroidectomy. Small to moderate amount of subcutaneous emphysema within the lower neck extending into the anterior mediastinum of the upper chest. An obvious tracheal tear is not visualized but can be missed on CT. No pneumothorax. No pleural effusion. " -Calcium 8.3-continue to trend -PTH <6.3, redraw pending -Phos 6.8- continue trending -Pain control with toradol, tylenol, norco, and lidocaine patch -no infection noted on scans -Monitor calcium level at 1900 -monitor all electrolytes -monitor Vit D levels -Calcium gluconate this morning x2 -calcium carbonate 1250 mg BID -calcitrol 0.25 mcg BID -Vitamin D 50,000 units x 7 days -Dr. Scott following -Nephrology consulted -BP stablized Anxiety/Depression Schizophrenia Attempted suicide in the past Migraines -continue home medications -Supportive care DVT ppx SCD Full code LOS 24 hour OBS Discharge Plan: Home Plan to discharge in: 24 Hours
--- NOTE | 2024-09-20 11:41 | P.PN ---
Date of Service: 09/19/24 ENT Postoperative Note Patient admitted for postoperative hypocalcemia. Today reports mild neck pain/swelling and upper back discomfort. She denies hoarseness. Exam reveals intact neck incision with sutures/Steristrips intact. No audible dysphonia or stridor. Impression: 1. Malignant neoplasm left thyroid lobe and several right thyroid nodules, s/p Total Thyroidectomy with RLN monitoring. Tolerated well. Healing as expected. 2. Postoperative hypocalcemia. Plan: 1. Recommend continuing calcitriol and calcium carbonate and adding Drisdol. 2. Recommend continuing levothyroxine 100 mcg daily and adding Cytomel daily. 3. Suture removal in 5-7 days. 4. Will follow while in hospital.
[2024-09-20 14:53] LABS: Albumin 3.8 g/dL (3.4-5.0); Anion Gap 12.7 mEq/L (5.0-15.0); Bilirubin Total 0.5 mg/dL (0.2-1.0); Globulin 3.7 g/dL (2.3-3.5); Magnesium 2.1 mg/dL (1.6-2.4); Phosphorus 6.9 mg/dL (2.5-4.9); Potassium 3.7 mEq/L (3.5-5.1); Protein, Total 7.5 g/dL (6.4-8.2)
[2024-09-20] MEDS: CALCIUM CARBONATE 500 MG TAB PO SCH (18:20)
[2024-09-20] MEDS: CALCIUM ACETATE 667 MG TAB PO SCH (18:21)
[2024-09-20 18:44] LABS: Anion Gap 10.7 mEq/L (5.0-15.0); Phosphorus 6.8 mg/dL (2.5-4.9); Potassium 3.7 mEq/L (3.5-5.1)
[2024-09-20 22:30] LABS: Anion Gap 12.5 mEq/L (5.0-15.0); Magnesium 2.1 mg/dL (1.6-2.4); Phosphorus 7.1 mg/dL (2.5-4.9); Potassium 3.5 mEq/L (3.5-5.1)
[2024-09-21] MEDS: POTASSIUM CL SA 10 MEQ TAB PO ONE (00:52)
--- NOTE | 2024-09-21 04:29 | CON ---
Date of Consultation: 09/20/2024 Chief Complaint: Hypocalcemia, symptomatic. History Of Present Illness: The patient presented to the hospital because of paresthesia. She was f ound to have hypocalcemia. She recently underwent total thyroidectomy. The patient is a 23-year-old woman with past medical history of anxiety, asthma, thyroid cancer, depression, schizophrenia, previ ous suicidal attempt, vocal cord problems, who presented to the ED with paresthesia to bilateral fing ers, cheeks, and eyelids. She was seen early in the morning with hypocalcemia of 7.7 in the emergenc y room and received IV calcium. Subsequently, she was discharged to home, although she returned to [facility] ER after a few hours because of cramping to bilateral lower extremities. Calcium dropped to 7.5, and the patient received IV calcium to control hypocalcemia. The patient is admitted to the hospital and Nephrology consultation is requested for hypocalcemia. Review of Systems: Constitutional: The patient denies fever, chills. Eyes: Denies vision changes. Ears, Nose, and Throat: Denies sore throat, earache. Respiratory: Denies PND, orthopnea. Cardiovascular: Denies palpitation, syncope. GI: Denies nausea, vomiting. : Denies dysuria or hematuria. All other systems reviewed and all are negative. 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 Physical Examination: General: The patient is alert and oriented x3. HEENT: Atraumatic, normocephalic. Oral mucosa moist and pink. Neck: Supple. No JVD. No bruits. Respiratory: Clear to auscultation bilaterally. Heart: S1, S2. No pericardial friction rub. Abdomen: Soft, benign, nontender. Extremities: No edema. Laboratory Data: Sodium 140, potassium 3.1, BUN 10, creatinine 0.7, glucose 118, total bilirubin 0.4 . Hypocalcemia status post thyroidectomy, history of thyroid cancer, vocal cord problems. CT scan of [facility] chest reports the patient is status post thyroidectomy, [id number] amount of subcutaneous e mphysema with the lower back extending into anterior mediastinum of the upper chest and obvious tear is not visualized. The patient was symptomatic with hypocalcemia. Calcium level was 7.5. Patient was found to have hyperphosphatemia. Vitamin D was started and 25-hydroxyvitamin D level i s pending. The patient will continue calcium carbonate tablet for hyperphosphatemia. The patient is started on calcium acetate to be taken with meals to prevent hyperphosphatemia. The patient will co ntinue treatment fir hypocalcemia. Monitor electrolytes closely. The patient will continue calcitri ol and calcium carbonate as well as calcium acetate. Monitor calcium and phosphorus level and renal panel. EB/MODL Voice ID: [id number] Report ID: [id number]
[2024-09-21 06:38] LABS: Magnesium 2.2 mg/dL (1.6-2.4)
[2024-09-21] MEDS: CALCITROL 0.25 MCG CAP PO SCH (08:49)
--- NOTE | 2024-09-21 08:55 | EKG ---
Test Date: 2024-09-19 Test Time: 18:24:04 Windows Administrator: KIMBERLI MEASUREMENT RESULTS: Intervals: Rate: 68 MN: 128 QRSD: 72 QT: 412 QTc: 438 [place]: P: 51 MN: 128 QRS: 41 T: 38 INTERPRETIVE STATEMENTS: Normal sinus rhythm Normal ECG Compared to ECG 04/11/2024 22:13:04 Sinus arrhythmia no longer present Electronically Signed On 09-21-24 08:52:27 [employer] RECORDS SUPERVISOR by Chucho Aguirre
[2024-09-21 09:11] VITALS: BP 125/74; TEMP 97.5
--- NOTE | 2024-09-21 20:05 | PN ---
Date of Progress Note: 09/21/2024 Subjective: The patient was admitted to the hospital with symptomatic hypocalcemia after thyroidecto my. Objective: Vital Signs: When I saw the patient, blood pressure 125/74, pulse of 116 down to 79. Chest: Clear to auscultation. Heart: S1, S2. Regular. Abdomen: Soft, nontender. Extremities: No edema. Laboratory Data: Hemoglobin 11.4, sodium 135, potassium 4, bicarb 23, BUN 11, creatinine 0.6, phosph orus 6.9, calcium 9.2, magnesium 2.2, TSH 0.2. PTH and PTH-related protein still pending. Current Medications: The patient on, it includes KCl, calcium carbonate. Assessment And Plan: 1.Hypocalcemia, possible I am going to start the patient on calcitriol and the calcium ca rbonate and we will follow up. 2.Hyperphosphatemia secondary to primary hyperparathyroidism possible. We will start the patient on PhosLo and we will monitor. The patient cleared from the Renal standpoint for discharge planning to follow up in the office in 2-3 weeks. CHELI Voice ID: [id number] Report ID: [id number]
[2024-09-26] MEDS ORDERED: DRISDOL (VITAMIN D=ERGOCALCIFEROL) 50000 UNIT CAP PO SCH (09:00)
== END 2024-09-21 12:18 | disposition home or self-care (01) | DRG 641 ==
LOC: ER 13:53 → ERHOLD 16:27 → 2ND 17:11 → OBSVTOIN 09-19 14:35
PROVIDERS: ADMIT Hospitalist; ATTEND Internal Medicine
DX: E83.51 Hypocalcemia (principal); F41.9 Anxiety disorder, unspecified; F32.A Depression, unspecified; F20.9 Schizophrenia, unspecified; I95.9 Hypotension, unspecified; E89.0 Postprocedural hypothyroidism; G43.909 Migraine, unspecified, not intractable, without status migrainosus; Z91.51 Personal history of suicidal behavior; Z90.49 Acquired absence of other specified parts of digestive tract; Z85.850 Personal history of malignant neoplasm of thyroid; Z79.890 Hormone replacement therapy
CPT/HCPCS: 36415; 70491; 71250; 80048; 80053; 80069; 82306; 82308; 82330; 82652; 83519; 83735; 83970; 84100; 84443; 84484; 85025; 93005; 96361; 96365; 96375; 99285; G0378; J0612; J3010; J3475; J7030; J7050; Q9967

== ENCOUNTER 2024-10-27 11:43 | Emergency (ER) | payer BC ==
--- OUTSIDE RECORDS SUMMARY | 2024-10-27 11:53 | XMS REPORT | Continuity of Care Document ---
Author Name Unknown Address [address] [facility] [address] [place] [address] [facility] thconnect Address [address] [facility] [place] [address] Care Team Providers [employer] Name Role Phone Deo Waters MD, Lio Cmamy Primary Care Physici an NIKKODAIANAENMANUEL Attending Clinician Unavailable ZARINA KENNEDY CAM Attending Clinician Unavailable BENNETT KENNEDYEN CAM Attending Clinician Unavailable Nurse, [facility] Attending Clinician Un available Zarina Kennedy MD Attending Clinician [phone] GERMAN EISENBERG Attending Clinician Unavailable Doctor Unassigned, [place] Attending Clinician U omar De La Paz MD, Alcira Attending Clinician [phone] HINA HRARIS Attending Clinician HINA Ambrose Attending Clinician TARAS Jacques Attending Clinician Unavailluis e Nurse, [facility] Attending Clinician Un available MICHELE BAUTISTA Attending Clinician Un available VIVIANA DOWNEY Attending Clinician Unavailable Viviana Downey NP Attending Clinician [phone] FIDE FREITAS Attending Clinician Unavailable Fide Freitas MD Attending Clinician [phone], [facility] Attending Clinician Unavailable Doctor Unassigned, [place] Attending Clinician U MARCO A Cantu Attending Clinician UnavailMallorie Mata MD Attending Clinician [phone] Omer Burris MD, Lashell Attending Clinician + [phone] Marco A Larson MD Attending Clinician [phone] MALLORIE ALEJANDRA Attending Clinician Unavailable AILIN TANG Attending Clinician UnavailAilin Israel Attending Clinician [phone] DAVY SOTELO Attending Clinician Unavailable DAVY SOTELO Attending Clinician Unavailable Jackie Griffin MD, Iris Attending Clinician [phone] BRIT LAUREN Attending Clinician UnavailIDA Ash Attending Clinician Unavailable Norma Partida MD Attending Clinician [phone] NORMA PARTIDA Attending Clinician Unavailable WENDY RIVERA Attending Clinician Unavailable Nicole MERAZ, Wendy Attending Clinician [phone] GUTIERREZ BRAVO Attending Clinician Unavailable Gutierrez Bravo MD Attending Clinician [phone] [facility] Attending Clinician Unavailable Cynthia [facility]ending [facility] ician [place], Nephrology Attending Clinician Unavaila STAN Hampton Attending Clinician Unavail able STAN TY Attending Clinician Unavail able Pedro MILLER Attending Clinician Unavailable Paul PACPedro Attending Clinician [phone] Jordan Gaspar CRNA Attending Clinician [phone] Jesus Martinez MD, Leonard Attending Clinician + [phone] Only, [facility] Test Attending Clinician Unavailable Kary Oseguera MD Attending Clinician [phone] Shaina CORONEL, Lashay Castellon Attending Clinician Unavailable Ultrasound, [facility] Attending Clinician Unavaila beata Aguillon MD, Sherry Attending Clinician + Kian Gutierrez MD Attending Clinician [phone] Mihai Fernandez MD Attending Clinician [phone] Unknown, Attending Attending Clinician Unavailab le UNKNOWN, ATTENDING Attending Clinician Unavailab Kary Harkins Attending Clinician [phone] DR GERMAN CARMEN Attending Clinician UnavailMarco A Salcedo MD Attending Clinician + [phone] Eda Santos RN Attending Clinician Unavailable Martha Cohn Attending Clinician Unavail able Jonny Sarah MD Attending Clinician [phone] 1, [facility] Attending Clinician Unavailable ZARINA KENNEDY Admitting Clinician Unavailable MARCO A NIETO Admitting Clinician Unavaila MICHELE Browning Admitting Clinician Un available LASHELL CH Admitting Clinician Lashell López MD Admitting Clinician + [phone] MALLORIE ALEJANDRA Admitting Clinician Unavailable Mallorie Alejandra MD Admitting Clinician IRIS KEYES Admitting Clinician Unavailab WENDY Short Admitting Clinician Unavailable Zarina Kennedy MD Admitting Clinician [phone] Norma Partida MD Admitting Clinician [phone] NORMA PARTIDA Admitting Clinician Unavailable Kary Oseguera MD Admitting Clinician [phone] GERMAN CARMEN Admitting Clinician UnavailMarco A Salcedo MD Admitting Clinician + [phone] Payers Payer Name Policy Type Policy Number Effective Date Expirati on Date Source [facility] [id number] 2020 00:00:00 [place] [facility] [id number] 2019 00:00:00 [place] OUT OF STATE [id number] 2020 00:00:00 Problems Condition Name Condition Details Condition Category Status Onset Date Resolution Date Last Treatment Date Treating Clinician Comments Source Decreased libido Decreased libido Disease Active 11-13 00:00: 00 [facility] Hydronephr osis Hydronephr osis Disease Active 2022-11 00:00: 00 [facility] Calculus of kidney Calculus of kidney Disease Active 2022-11 00:00: 00 [facility] Hydronephr osis with urinary obstructio n due to renal calculus Hydronephr osis with urinary obstructio n due to renal calculus Disease Active 2022-11 00:00: 00 [facility] Flank pain Flank pain Disease Active 2022-11 00:00: 00 [facility] Allergic rhinitis Allergic rhinitis Disease Active 03-15 00:00: 00 [facility] Nausea Nausea Disease Active 03-15 00:00: 00 [facility] Generalize d anxiety disorder Generalize d anxiety disorder Disease Active 2018-11 00:00: 00 [facility] Major depressive disorder Major depressive disorder Disease Active 2019-1 0-14 00:00: 00 [facility] History of self-harm History of self-harm Disease Active 2018-11 0-14 00:00: 00 [facility] Bipolar 1 disorder Bipolar 1 disorder Disease Active 8-30 00:00: 00 [facility] Asthma Asthma Disease Active 2-01 00:00: 00 [facility] Depressive disorder Depressive disorder Disease Active 1-31 00:00: 00 [facility] 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 Formattin g of this note might be different from the original. ONE episode. Normal lung biopsy. Treated with solumedro l monthly (3 days) x 5 months. Initially on plaquenil , stopped after 6-8 months. She's being observed off meds. [facility] Mild pre-eclamp dominik in third trimester Mild pre-eclamp dominik in third trimester Disease Resolve d 2020-11 1-01 00:00: 00 2021-09-27 00:00:00 2021-09-27 10:29:55 [facility] 39 weeks gestation of 39 weeks gestation of Disease Resolve d 2020-1 0-29 00:00: 00 2021-09-27 00:00:00 2021-09-27 10:29:55 [facility] Encounter for planned induction of labor Encounter for planned induction of labor Disease Resolve d 2020-1 0-29 00:00: 00 2021-09-27 00:00:00 2021-09-27 10:29:55 [facility] Low-lying placenta Low-lying placenta Disease Resolve d 2020-0 7-19 00:00: 00 2021-09-27 00:00:00 2021-09-27 20:21:44 [facility] High-risk in third trimester High-risk in third trimester Disease Resolve d 2020-0 4-07 00:00: 00 2021-09-27 00:00:00 2021-09-27 10:29:55 [facility] Rh negative state in antepartum period Rh negative state in antepartum period Disease Resolve d 2020-0 4-07 00:00: 00 2021-09-27 00:00:00 2021-09-27 20:21:45 [facility] Liveborn infant, of umaña , born in hospital by vaginal delivery Liveborn infant, of umaña , born in hospital by vaginal delivery Disease Resolve d 2019-0 3-23 00:00: 00 2021-09-27 00:00:00 2021-09-27 20:21:47 [facility] Family history of congenital heart defect Family history of congenital heart defect Disease Resolve d 2018-0 8-30 00:00: 00 2021-09-27 00:00:00 2021-09-27 20:21:57 [facility] Vaginal discharge Vaginal discharge Disease Resolve d 2018-1 2-31 00:00: 00 2021-01-15 00:00:00 2021-01-15 11:03:56 [facility] Need for prophylact ic vaccinatio n and inoculatio n against varicella Need for prophylact ic vaccinatio n and inoculatio n against varicella Disease Resolve d 2018-1 0-14 00:00: 00 2021-01-15 00:00:00 2021-01-15 11:05:00 [facility] Need for vaccinatio n against rubella Need for vaccinatio n against rubella Disease Resolve d 2019-1 0-14 00:00: 00 2021-01-15 00:00:00 2021-01-15 11:05:01 [facility] Normal labor Normal labor Disease Resolve d 2019-0 3-23 00:00: 00 2020-02-28 00:00:00 2020-02-28 09:13:37 [facility] Group B streptococ jose infection during Group B streptococ jose infection during Disease Resolve d 2019-0 3-23 00:00: 00 2020-02-28 00:00:00 2020-02-28 09:13:32 [facility] High-risk in third trimester High-risk in third trimester Disease Resolve d 2018- 00:00: 00 2020-02-28 00:00:00 2020-02-28 09:13:35 [facility] 26 weeks gestation of 26 weeks gestation of Disease Resolve d 2018-11 00:00: 00 2019-12-08 00:00:00 2019-12-08 14:01:23 [facility] Allergies, Adverse Reactions, Alerts Allergy Name Allergy Type Status Severity Reaction(s) Onset Date Inactive Date Treating Clinician Comments Source NO KNOWN ALLERGIE S Drug Class Active [facility] No Known Drug Allergie s DA Active [facility] Social History Social Habit Start Date Stop Date Quantity Comments Source Gender identity [facility] Sexual orientation [facility] ASSERTION Possible [facility] History of tobacco use Cigarette Smoker [facility] Alcoholic beverage intake 2024-10-22 00:00:00 2024-10-22 00:00:00 Current drinker of alcohol (finding) [facility] History of Social function 2024-10-20 00:00:00 2024-10-20 00:00:00 [facility] Cigarettes smoked current (pack per day) - Reported 2024-08-04 00:00:00 2024-08-04 00:00:00 [facility] Cigarette pack-years 2024-08-04 00:00:00 2024-08-04 00:00:00 [facility] Tobacco Comment 2024-08-02 00:00:00 2024-08-02 00:00:00 1/2 pack daily [facility] Tobacco use and exposure 2024-04-30 00:00:00 2024-04-30 00:00:00 Smokeless tobacco non-user [facility] Alcohol intake 2024-02-06 00:00:00 2024-02-06 00:00:00 Current drinker of alcohol (finding) [facility] Alcohol Comment 2023-11-13 00:00:00 2023-11-13 00:00:00 occassionally [facility] Exposure to SARS-CoV-2 (event) 2023-02-08 00:00:00 2023-02-18 14:56:00 Not sure [facility] Sex 2021-01-04 04:27:13 2021-01-04 04:27:13 Female (finding) [facility] Sex assigned at 2000 00:00:00 2000 00:00:00 [facility] Smoking Status Start Date Stop Date Source Smokes tobacco daily 2024-04-30 00:00:00 [facility] Ex-smoker 2022-06-03 00:00:00 2022-06-03 [facility] Ordered Medication Name Filled Medication Name Start Date Stop Date Current Medication? Ordering Clinician Indication Dosage Frequency Signature (SIG) Comments Components Source QUEtiapine (SEROquel) 50 MG tablet 08-02 08:26: 42 Yes 50mg Take 50 mg by mouth every night. [facility] Rimegepant Sulfate (Nurtec) 75 MG tablet dispersible 08-02 00:00: 00 10-02 05:59 :00 Yes [id number] 75mg Q2D Take 75 mg by mouth every other day. [facility] albuterol 108 (90 Base) MCG/ACT inhaler 07-29 00:00: 00 Yes 2{puff} 2 puffs every 4 (four) hours if needed. [facility] medroxyPROG ESTERone (DEPO-PROVE RA) syringe 150 mg 07-28 15:15: 00 07-28 14:18 :00 No [id number] 150mg 150 mg, Intramuscu lar, ONCE, 1 dose, On Fri07/28/24 at 1015, Routine [facility] medroxyPROG ESTERone (DEPO-PROVE RA) syringe 150 mg 04-30 15:30: 00 04-30 14:38 :00 No [id number] 150mg 150 mg, Intramuscu lar, ONCE, 1 dose, On Fri04/30/24 at 1030, Routine [facility] medroxyPROG ESTERone (DEPO-PROVE RA) 150 mg/mL syringe 04-30 09:30: 56 Yes 150mg 1 mL by Intramuscu lar route every 3 (three) months. [facility] medroxyPROG ESTERone (DEPO-PROVE RA) 150 mg/mL syringe 04-14 16:04: 17 Yes 150mg 1 mL by Intramuscu lar route every 3 (three) months. [facility] ubrogepant (UBRELVY) 100 mg Tab 04-14 15:41: 00 04-14 00:00 :00 No Ubrelvy 100 mg tablet Take 1 tablet by oral route as needed. [facility] ibuprofen 600 mg tablet 04-14 15:40: 54 04-14 00:00 :00 No TAKE 1 TABLET BY MOUTH TWICE A DAY NEEDED [facility] diclofenac 75 mg EC tablet 04-14 15:40: 42 04-14 00:00 :00 No [facility] cyclobenzap rine 5 mg tablet 04-14 15:40: 32 04-14 00:00 :00 No 5mg Take 1 tablet by mouth 2 (two) times daily as needed. [facility] cetirizine 10 mg tablet 04-14 15:40: 26 04-14 00:00 :00 No 10mg Take 1 tablet by mouth in the morning. [facility] ALBUTEROL SULFATE HFA INHALE 04-14 15:40: 20 04-14 00:00 :00 No Inhale. [facility] acetaminoph en-codeine 300-30 mg tablet 04-14 15:40: 14 04-14 00:00 :00 No TAKE 1 TABLET BY MOUTH EVERY 8 HOURS NEEDED FOR ACUTE PAIN [facility] dexamethaso ne sod phos PF injection 10 mg 04-11 18:45: 00 04-11 17:46 :00 No 10mg 10 mg, Intramuscu lar, ONCE, 1 dose, On 04/11/24 at 1345, Routine [facility] medroxyPROG ESTERone (DEPO-PROVE RA) syringe 150 mg 02-05 15:00: 00 02-05 14:00 :00 No [id number] 150mg [facility] medroxyPROG ESTERone (DEPO-PROVE RA) syringe 150 mg 11-13 20:15: 00 11-13 19:30 :00 No [id number] 150mg [facility] ALBUTEROL SULFATE HFA INHALE 11-13 12:59: 22 Yes Inhale. [facility] FLUoxetine 40 mg capsule 11-13 12:58: 49 Yes 40mg Take 1 capsule by mouth every morning. [facility] ubrogepant (UBRELVY) 100 mg Tab 11-13 12:58: 49 Yes Ubrelvy 100 mg tablet Take 1 tablet by oral route as needed. [facility] acetaminoph en-codeine 300-30 mg tablet 11-13 12:58: 49 Yes TAKE 1 TABLET BY MOUTH EVERY 8 HOURS NEEDED FOR ACUTE PAIN [facility] ibuprofen 600 mg tablet 11-13 12:58: 49 Yes TAKE 1 TABLET BY MOUTH TWICE A DAY NEEDED [facility] diclofenac 75 mg EC tablet 11-13 12:58: 49 Yes [facility] cyclobenzap rine 5 mg tablet 11-13 12:58: 49 Yes 5mg Take 1 tablet by mouth 2 (two) times daily as needed. [facility] cetirizine 10 mg tablet 11-13 12:58: 49 Yes 10mg Take 1 tablet by mouth in the morning. [facility] acetaminoph en (TYLENOL) tablet 650 mg 2022-11 19:30: 00 Yes 650mg 650 mg, Oral, Q6H ABX, First dose (after last modificati on) on Fri10/14/23 at 1330, Until Discontinu ed, Routine [facility] methocarbam oL (ROBAXIN) tablet 500 mg 2022-11 18:30: 00 Yes 500mg 500 mg, Oral, QID, First dose on Fri10/14/23 at 1230, Until Discontinu ed, Routine [facility] ketorolac (TORADOL) injection 15 mg 2022-11 18:22: 51 10-18 18:21 :51 No 15mg 15 mg, Slow IV Push, Q6HPRN, Starting on Fri10/14/23 at 1222, Until Fri10/18/23 at 1221, Routine, Pain (scale 4-6) [facility] HYDROcodone -acetaminop hen (NORCO 5) 5-325 mg tablet 1 tablet 2022-11 18:20: 10 10-16 02:45 :23 No 1{tbl} 1 tablet, Oral, Q6HPRN, Starting on Fri10/14/23 at 1220, Until Fri10/15/23 at 2045, Routine, Pain (scale 7-10) [facility] FLUoxetine (PROZAC) capsule 40 mg 2022-11 15:00: 00 Yes 40mg 40 mg, Oral, DAILY, First dose on Fri10/14/23 at 0900, Until Discontinu ed, Routine [facility] tamsulosin (FLOMAX) capsule 0.4 mg 2022-11 15:00: 00 Yes .4mg 0.4 mg, Oral, DAILY, First dose on Fri10/14/23 at 0900, Until Discontinu ed, Routine [facility] sennosides- docusate sodium (SENOKOT-S) 8.6-50 mg per tablet 1 tablet 2022-11 15:00: 00 Yes 1{tbl} 1 tablet, Oral, DAILY, First dose on Fri10/14/23 at 0900, Until Discontinu ed, Routine [facility] FLUoxetine 40 mg capsule 2022-11 14:44: 43 Yes 40mg Take 1 capsule by mouth every morning. [facility] ubrogepant (UBRELVY) 100 mg Tab 2022-11 14:44: 43 Yes Ubrelvy 100 mg tablet Take 1 tablet by oral route as needed. [facility] QUEtiapine (SEROQUEL) tablet 50 mg 2022-11 07:30: 00 Yes 50mg 50 mg, Oral, QHS, First dose on Fri10/14/23 at 0130, Until Discontinu ed, Routine [facility] albuterol (VENTOLIN) inhaler 2 Puff 2022-11 07:20: 25 Yes 2{puff} 2 Puff, Inhalation , Q4HPRN, Starting on Fri10/14/23 at 0120, Until Discontinu ed, Routine, Wheezing, Shortness of Breath [facility] cefTRIAXone (ROCEPHIN) 1,000 mg in [...] Urine
D uration of therapy: 5 days [facility] NaCl 0.9% (NS) IV infusion 1,000 mL 2022-11 03:00: 00 Yes 1000mL at 125 mL/hr, IV Infusion, CONTINUOUS , Starting on Fri10/13/23 at 2100, Until Discontinu ed, Routine [facility] HYDROcodone -acetaminop hen (NORCO 5) 5-325 mg tablet 1 tablet 2022-11 02:46: 23 10-14 18:20 :18 No 1{tbl} 1 tablet, Oral, Q6HPRN, Starting on Fri10/13/23 at 2046, Until Fri10/14/23 at 1220, Routine, Pain (scale 4-6) [facility] ondansetron (ZOFRAN (PF)) injection 4 mg 2022-11 02:44: 32 Yes 4mg 4 mg, Slow IV Push, Q6HPRN, Starting on Fri10/13/23 at 2044, Until Discontinu ed, Routine, Nausea and Vomiting (N/V) [facility] ketorolac (TORADOL) injection 15 mg 2022-11 02:26: 58 10-14 18:20 :08 No 15mg 15 mg, Slow IV Push, Q6HPRN, Starting on Fri10/13/23 at 2026, Until Tu10/14/23 at 1220, Routine, Pain (scale 7-10) [facility] methocarbam oL 500 mg tablet 2022-11 00:00: 00 04-14 00:00 :00 No [id number] 500mg Take 1 tablet by mouth 3 (three) times daily as needed for Pain (scale 4-6) or Pain (scale 7-10). [facility] sulfamethox azole-trime thoprim (BACTRIM DS) 800-160 mg per tablet 2022-11 00:00: 00 04-14 00:00 :00 No [id number] 1{tbl} Take 1 tablet by mouth in the morning and 1 tablet in the evening. [facility] tamsulosin (FLOMAX) 0.4 mg 24 hr capsule 2022-11 00:00: 00 04-14 00:00 :00 No [id number] .4mg Take 1 capsule by mouth in the morning. [facility] ketorolac 10 mg tablet 2022-11 00:00: 00 04-14 00:00 :00 No [id number] 10mg Take 1 tablet by mouth every 6 (six) hours as needed for Pain (scale 7-10). [facility] gabapentin 100 mg capsule 2022-11 00:00: 00 04-14 00:00 :00 No [id number] 200mg Take 2 capsules by mouth in the morning and 2 capsules in the evening. [facility] acetaminoph en-codeine 300-30 mg tablet 2022-11 00:00: 00 10-18 05:59 :00 No [id number] 1{tbl} Take 1 tablet by mouth every 6 (six) hours as needed for Pain (scale 7-10) for up to 3 days. Indication s: acute pain [facility] meperidine (DEMEROL) injection 12.5 mg 2022-11 00:24: 18 Yes 12.5mg 12.5 mg, Slow IV Push, PRN, 1 dose, Starting on Fri10/10/23 at 1824, Until Discontinu ed, Routine, Shivering, PACU
En ter indication for use: Reduce postoperat cheyenne shivering< br>anthropology faculty member approving Restricted medication : ROSARIO HOFFMANN [facility] HYDROmorphO ne (DILAUDID) injection 0.2 mg 2022-11 00:24: 18 Yes .2mg 0.2 mg, Slow IV Push, Q5MIN PRN, 10 doses, Starting on Fri10/10/23 at 1824, Until Discontinu ed, Routine, Pain (scale 7-10), PACU
Us e approved by (Faculty): PACU USE -ANESTHESI A SERVICE-HY DROMORPHON E INJECTIONS [facility] FENTanyl PF (SUBLIMAZE (PF)) injection 25 mcg 2022-11 00:24: 18 Yes 25ug 25 mcg, Slow IV Push, Q5MIN PRN, 4 doses, Starting on Fri10/10/23 at 1824, Until Discontinu ed, Routine, Pain (scale 4-6), PACU [facility] lactated ringers IV infusion 1,000 mL 2022-11 20:00: 00 10-10 20:24 :00 No 1000mL at 42 mL/hr, 1,000 mL, IV Infusion, ONCE, 1 dose, On Fri10/10/23 at 1400, Routine, DSU Pre-op [facility] FLUoxetine 40 mg capsule 2022-11 19:08: 55 Yes 40mg Take 1 capsule by mouth every morning. [facility] ubrogepant (UBRELVY) 100 mg Tab 2022-11 19:08: 55 Yes Ubrelvy 100 mg tablet Take 1 tablet by oral route as needed. [facility] tamsulosin (FLOMAX) 0.4 mg 24 hr capsule 2022-11 00:00: 00 10-14 00:00 :00 No [id number] .4mg Take 1 capsule by mouth in the morning for 5 days. [facility] ketorolac 10 mg tablet 2022-11 00:00: 00 10-14 00:00 :00 No [id number] 10mg Take 1 tablet by mouth every 6 (six) hours as needed for Pain (scale 7-10) (Alternate with ibuprofen if taking concurrent ly). [facility] FLUoxetine 20 mg capsule 2022-11 08:06: 30 10-09 00:00 :00 No fluoxetine 20 mg capsule TAKE 1 CAPSULE BY MOUTH EVERY DAY [facility] escitalopra m oxalate 20 mg tablet 2022-11 10:50: 05 10-08 00:00 :00 No escitalopr am 20 mg tablet [facility] dicyclomine 20 mg tablet 2022-11 10:49: 59 10-08 00:00 :00 No dicyclomin e 20 mg tablet TAKE 1 TABLET BY MOUTH EVERY 6 HOURS NEEDED [facility] busPIRone 5 mg tablet 2022-11 10:49: 56 10-08 00:00 :00 No buspirone 5 mg tablet [facility] ARIPiprazol e 5 mg tablet 2022-11 10:49: 47 10-08 00:00 :00 No aripiprazo le 5 mg tablet [facility] albuterol 90 mcg/actuati on inhaler 2022-11 10:49: 40 10-08 00:00 :00 No 2{puff} Inhale 2 Puffs every 6 (six) hours as needed. [facility] albuterol 2.5 mg /3 mL (0.083 %) nebulizer solution 2022-11 10:49: 34 10-08 00:00 :00 No 2.5mg Inhale 3 mL every 4 (four) hours as needed. [facility] ondansetron 4 mg tablet 2022-11 08:44: 57 10-08 00:00 :00 No ondansetro n HCl 4 mg tablet TAKE 1 TABLET BY MOUTH EVERY 12 HOURS NEEDED [facility] chlorhexidi ne 0.12 % mouthwash 2022-11 08:43: 33 10-08 00:00 :00 No chlorhexid ine gluconate 0.12 % mouthwash USE TWICE DAILY [facility] diphenoxyla te-atropine 2.5-0.025 mg tablet 2022-11 08:43: 30 10-08 00:00 :00 No diphenoxyl ate-atropi ne 2.5 mg-0.025 mg tablet [facility] fluconazole 200 mg tablet 2022-11 08:43: 15 10-08 00:00 :00 No fluconazol e 200 mg tablet [facility] iron-FA-dha -epa-FAD-NA DH-be-mv (ENLYTE) 1.5 mg iron- 8.73 mg CpID 2022-11 08:42: 37 10-08 00:00 :00 No EnLyte 1.5 mg iron-8.73 mg capsule,im mediate - delay release [facility] lurasidone 20 mg tablet 2022-11 08:42: 34 10-08 00:00 :00 No Latuda 20 mg tablet [facility] ondansetron 4 mg disintegrat ing tablet 2022-11 08:41: 45 10-08 00:00 :00 No ondansetro n 4 mg disintegra ting tablet [facility] prazosin 1 mg capsule 2022-11 08:41: 33 10-08 00:00 :00 No prazosin 1 mg capsule [facility] predniSONE 20 mg tablet 2022-11 08:41: 18 10-08 00:00 :00 No prednisone 20 mg tablet [facility] Sodium Fluoride, Dental Gel, 1.1 % Crea 2022-11 08:41: 05 10-08 00:00 :00 No Denta 5000 Plus 1.1 % cream USE TWICE A DAY IN THE MORNING AND AT NIGHT. DO NOT EAT OR DRINK FOR AT LEAST 30 MINS [facility] SUMAtriptan 50 mg tablet 2022-11 08:41: 02 10-08 00:00 :00 No sumatripta n 50 mg tablet [facility] ondansetron 4 mg tablet 2022-11 00:00: 00 04-14 00:00 :00 No [id number] 4mg Take 1 tablet by mouth every 8 (eight) hours as needed for Nausea and Vomiting (N/V). [facility] tamsulosin 0.4 mg 24 hr capsule 2022-11 00:00: 00 10-14 00:00 :00 No [id number] .4mg Take 1 capsule by mouth in the morning. [facility] ketorolac (TORADOL) injection 15 mg 2022-11 05:45: 00 10-06 06:04 :00 No 15mg 15 mg, Slow IV Push, ONCE, 1 dose, On 10/05/23 at 2345, Routine [facility] HYDROcodone -acetaminop hen (NORCO 5) 5-325 mg tablet 1 tablet 2022-11 04:15: 00 10-06 04:06 :00 No 1{tbl} 1 tablet, Oral, ONCE, 1 dose, On 10/05/23 at 2215, SANTANA [facility] naproxen 500 mg EC tablet 2022-11 00:00: 00 10-14 00:00 :00 No [id number] 500mg Take 1 tablet by mouth as needed for Pain (scale 4-6). [facility] [facility] emtricitabi ne-tenofovi r, TDF, 200-300 mg tablet 2022-11 0-16 00:00: 00 04-14 00:00 :00 No 1{tbl} Take 1 tablet by mouth every 24 (twenty-fo ur) hours. [facility] medroxyPROG ESTERone (DEPO-PROVE RA) syringe 150 mg 2022-11 14:00: 00 08-15 13:03 :00 No [id number] [facility] ESTERone (DEPO-PROVE RA) syringe 150 mg 05-14 21:30: 00 05-14 20:47 :00 No [id number] [facility] med[facility]xy[facility] ESTERone (DEPO-PROVE RA) syringe 150 mg 02-18 21:15: 00 02-18 20:22 :00 No [id number] 150mg [facility] albuterol 90 mcg/actuati on inhaler 02-18 15:20: 25 Yes 2{puff} Inhale 2 Puffs every 6 (six) hours as needed. [facility] albuterol 2.5 mg /3 mL (0.083 %) nebulizer solution 02-18 15:20: 25 Yes 2.5mg Inhale 3 mL every 4 (four) hours as needed. [facility] SUMAtriptan 50 mg tablet 02-18 15:20: 25 Yes sumatripta n 50 mg tablet [facility] medroxyPROG ESTERone (DEPO-PROVE RA) syringe 150 mg 11-18 22:00: 00 11-18 21:18 :00 No [id number] 150mg [facility] clindamycin 300 mg capsule 11-18 15:33: 50 11-18 00:00 :00 No clindamyci n HCl 300 mg capsule Take 1 capsule 3 times a day by oral route for 10 days. [facility] ciprofloxac in HCl 500 mg tablet 11-18 15:33: 47 11-18 00:00 :00 No ciprofloxa monica 500 mg tablet [facility] cephALEXin 500 mg capsule 11-18 15:33: 40 11-18 00:00 :00 No cephalexin 500 mg capsule [facility] azithromyci n 250 mg tablet 11-18 15:33: 37 11-18 00:00 :00 No azithromyc in 250 mg tablet TAKE BY MOUTH 2 TABLETS TODAY THEN 1 TABLE DAILY FOR NEXT 4 DAYS [facility] doxylamine- pyridoxine, vit B6, 10-10 mg per tablet 11-18 15:33: 25 11-18 00:00 :00 No Diclegis 10 mg-10 mg tablet,del ayed release TAKE 1 TABLET BY MOUTH THREE TIMES A DAY NEEDED AND 2 AT BEDTIME [facility] norgestimat e-ethinyl estradioL 0.25-35 mg-mcg per tablet 11-18 15:33: 12 11-18 00:00 :00 No Sprintec (28) 0.25 mg-35 mcg tablet TAKE 1 TABLET BY MOUTH EVERY DAY [facility] Nitrofurant oin&Nit. Macrocryst 100 mg capsule 11-18 15:33: 09 11-18 00:00 :00 No nitrofuran toin monohydrat e/macrocry stals 100 mg capsule [facility] vit,calc76/ iron/folic (PRENATABS RX ORAL) 11-18 15:33: 03 11-18 00:00 :00 No Prenatabs Rx 29 mg iron-1 mg tablet [facility] PNV38/iron, crb,g/folic /dss/dha (CITRANATAL ASSURE ORAL) 11-18 15:33: 02 11-18 00:00 :00 No CitraNatal Assure 35 mg iron-1 mg-50 mg-300 mg oral pack [facility] PNV 67-iron ps-folate no.1-dha (VITAFOL ULTRA) 29 mg iron- 1 mg-200 mg Cap 11-18 15:32: 56 11-18 00:00 :00 No Vitafol Ultra 29 mg iron-1 mg-200 mg capsule [facility] sulfamethox azole-trime thoprim 800-160 mg per tablet 11-18 15:32: 50 11-18 00:00 :00 No sulfametho xazole 800 mg-trimeth oprim 160 mg tablet [facility] predniSONE 20 mg tablet 11-18 14:55: 24 Yes prednisone 20 mg tablet [facility] prazosin 1 mg capsule 11-18 14:55: 24 Yes prazosin 1 mg capsule [facility] ondansetron 4 mg tablet 11-18 14:55: 24 Yes ondansetro n HCl 4 mg tablet TAKE 1 TABLET BY MOUTH EVERY 12 HOURS NEEDED [facility] ondansetron 4 mg disintegrat ing tablet 11-18 14:55: 24 Yes ondansetro n 4 mg disintegra ting tablet [facility] lurasidone 20 mg tablet 11-18 14:55: 24 Yes Latuda 20 mg tablet [facility] Sodium Fluoride, Dental Gel, 1.1 % Crea 11-18 14:55: 24 Yes Denta 5000 Plus 1.1 % cream USE TWICE A DAY IN THE MORNING AND AT NIGHT. DO NOT EAT OR DRINK FOR AT LEAST 30 MINS [facility] fluconazole 200 mg tablet 11-18 14:55: 24 Yes fluconazol e 200 mg tablet [facility] escitalopra m oxalate 20 mg tablet 11-18 14:55: 24 Yes escitalopr am 20 mg tablet [facility] diphenoxyla te-atropine 2.5-0.025 mg tablet 11-18 14:55: 24 Yes diphenoxyl ate-atropi ne 2.5 mg-0.025 mg tablet [facility] dicyclomine 20 mg tablet 11-18 14:55: 24 Yes dicyclomin e 20 mg tablet TAKE 1 TABLET BY MOUTH EVERY 6 HOURS NEEDED [facility] chlorhexidi ne 0.12 % mouthwash 11-18 14:55: 24 Yes chlorhexid ine gluconate 0.12 % mouthwash USE TWICE DAILY [facility] busPIRone 5 mg tablet 11-18 14:55: 24 Yes buspirone 5 mg tablet [facility] ARIPiprazol e 5 mg tablet 11-18 14:55: 24 Yes aripiprazo le 5 mg tablet [facility] iron-FA-dha -epa-FAD-NA -be-mv (ENLYTE) 1.5 mg iron- 8.73 mg CpID 11-18 14:55: 24 Yes EnLyte 1.5 mg iron-8.73 mg capsule,im mediate - delay release [facility] iron-FA-dha -epa-FAD-NA DH-be-mv (ENLYTE) 1.5 mg iron- 8.73 mg CpID 11-18 14:55: 24 Yes EnLyte 1.5 mg iron-8.73 mg capsule,im mediate - delay release [facility] miSOPROStoL 200 mcg tablet 11-18 00:00: 00 10-08 00:00 :00 No [id number] Take one tablet night before procedure, then take one tablet morning of procedure [facility] medroxyPROG ESTERone (DEPO-PROVE RA) syringe 150 mg 2021-11 21:15: 00 08-26 20:14 :00 No [id number] 150mg [facility] SUMAtriptan 50 mg tablet 07-03 15:26: 51 Yes sumatripta n 50 mg tablet [facility] sulfamethox azole-trime thoprim 800-160 mg per tablet 07-03 15:26: 51 Yes sulfametho xazole 800 mg-trimeth oprim 160 mg tablet [facility] predniSONE 20 mg tablet 07-03 15:26: 51 Yes prednisone 20 mg tablet [facility] prazosin 1 mg capsule 07-03 15:26: 51 Yes prazosin 1 mg capsule [facility] ondansetron 4 mg tablet 07-03 15:26: 51 Yes ondansetro n HCl 4 mg tablet TAKE 1 TABLET BY MOUTH EVERY 12 HOURS NEEDED [facility] ondansetron 4 mg disintegrat ing tablet 07-03 15:26: 51 Yes ondansetro n 4 mg disintegra ting tablet [facility] Nitrofurant oin&Nit. Macrocryst 100 mg capsule 07-03 15:26: 51 Yes nitrofuran toin monohydrat e/macrocry stals 100 mg capsule [facility] lurasidone 20 mg tablet 07-03 15:26: 51 Yes Latuda 20 mg tablet [facility] Sodium Fluoride, Dental Gel, 1.1 % Crea 07-03 15:26: 51 Yes Denta 5000 Plus 1.1 % cream USE TWICE A DAY IN THE MORNING AND AT NIGHT. DO NOT EAT OR DRINK FOR AT LEAST 30 MINS [facility] fluconazole 200 mg tablet 07-03 15:26: 51 Yes fluconazol e 200 mg tablet [facility] escitalopra m oxalate 20 mg tablet 07-03 15:26: 51 Yes escitalopr am 20 mg tablet [facility] doxylamine- pyridoxine, vit B6, 10-10 mg per tablet 07-03 15:26: 51 Yes Diclegis 10 mg-10 mg tablet,del ayed release TAKE 1 TABLET BY MOUTH THREE TIMES A DAY NEEDED AND 2 AT BEDTIME [facility] diphenoxyla te-atropine 2.5-0.025 mg tablet 07-03 15:26: 51 Yes diphenoxyl ate-atropi ne 2.5 mg-0.025 mg tablet [facility] dicyclomine 20 mg tablet 07-03 15:26: 51 Yes dicyclomin e 20 mg tablet TAKE 1 TABLET BY MOUTH EVERY 6 HOURS NEEDED [facility] clindamycin 300 mg capsule 07-03 15:26: 51 Yes clindamyci n HCl 300 mg capsule Take 1 capsule 3 times a day by oral route for 10 days. [facility] ciprofloxac in HCl 500 mg tablet 07-03 15:26: 51 Yes ciprofloxa monica 500 mg tablet [facility] chlorhexidi ne 0.12 % mouthwash 07-03 15:26: 51 Yes chlorhexid ine gluconate 0.12 % mouthwash USE TWICE DAILY [facility] cephALEXin 500 mg capsule 07-03 15:26: 51 Yes cephalexin 500 mg capsule [facility] busPIRone 5 mg tablet 07-03 15:26: 51 Yes buspirone 5 mg tablet [facility] azithromyci n 250 mg tablet 07-03 15:26: 51 Yes azithromyc in 250 mg tablet TAKE BY MOUTH 2 TABLETS TODAY THEN 1 TABLE DAILY FOR NEXT 4 DAYS [facility] ARIPiprazol e 5 mg tablet 07-03 15:26: 51 Yes aripiprazo le 5 mg tablet [facility] PNV 67-iron ps-folate no.1-dha (VITAFOL ULTRA) 29 mg iron- 1 mg-200 mg Cap 07-03 15:26: 51 Yes Vitafol Ultra 29 mg iron-1 mg-200 mg capsule [facility] norgestimat e-ethinyl estradioL 0.25-35 mg-mcg per tablet 07-03 15:26: 51 Yes Sprintec (28) 0.25 mg-35 mcg tablet TAKE 1 TABLET BY MOUTH EVERY DAY [facility] vit,calc76/ iron/folic (PRENATABS RX ORAL) 07-03 15:26: 51 Yes Prenatabs Rx 29 mg iron-1 mg tablet [facility] iron-FA-dha -epa-FAD-NA DH-be-mv (ENLYTE) 1.5 mg iron- 8.73 mg CpID 07-03 15:26: 51 Yes EnLyte 1.5 mg iron-8.73 mg capsule,im mediate - delay release [facility] QUEtiapine 100 mg tablet 03-05 00:00: 00 10-08 00:00 :00 No [facility] FLUoxetine 40 mg capsule 03-05 00:00: 00 10-08 00:00 :00 No [facility] cetirizine 10 mg tablet 18 00:00: 00 10-08 00:00 :00 No 10mg Take 10 mg by mouth daily. [facility] albuterol 90 mcg/actuati on inhaler 2020-11 16:22: 14 Yes 2{puff} Inhale 2 Puffs every 6 (six) hours as needed. [facility] albuterol 2.5 mg /3 mL (0.083 %) nebulizer solution 2020-11 16:22: 14 Yes 2.5mg Inhale 2.5 mg every 4 (four) hours as needed. [facility] FLUoxetine 20 mg capsule 2020-11 16:22: 14 Yes fluoxetine 20 mg capsule TAKE 1 CAPSULE BY MOUTH EVERY DAY [facility] docusate calcium 240 mg capsule 2020-11 00:00: 00 10-08 00:00 :00 No [id number] 240mg Take 1 capsule by mouth once daily as needed for Constipati on. [facility] ferrous sulfate 325 mg (65 mg iron) tablet 2020-11 00:00: 00 10-08 00:00 :00 No [id number] 325mg Take 1 tablet by mouth 2 (two) times daily. [facility] QUEtiapine 50 mg tablet 2018-11 00:00: 00 Yes 50mg Take 1 tablet by mouth in the morning. [facility] Immunizations Ordered Immunization Name Filled Immunization Name Date Status Comments Source Influenza Virus Vaccine Quad IM, Preserv and ABX Free 6 MO-64 YRS (FLUCELVAX) 2023-11-13 00:00:00 Completed [facility] Influenza Virus Vaccine Quad IM, Preserv and ABX Free 6 MO-64 YRS 2021-09-06 00:00:00 Completed [facility] Influenza Virus Vaccine Quad IM, Preserv and ABX Free 6 MO-64 YRS 2021-09-06 00:00:00 Completed [facility] Influenza Virus Vaccine Quad IM, Preserv and ABX Free 6 MO-64 YRS 2021-09-06 00:00:00 Completed [facility] Influenza Virus Vaccine Quad IM, Preserv and ABX Free 6 MO-64 YRS 2021-09-06 00:00:00 Completed [facility] Influenza Virus Vaccine Quad IM, Preserv and ABX Free 6 MO-64 YRS 2021-09-06 00:00:00 Completed [facility] Influenza Virus Vaccine Quad IM, Preserv and ABX Free 6 MO-64 YRS 2021-09-06 00:00:00 Completed [facility] Influenza Virus Vaccine Quad IM, Preserv and ABX Free 6 MO-64 YRS 2021-09-06 00:00:00 Completed [facility] Influenza Virus Vaccine Quad IM, Preserv and ABX Free 6 MO-64 YRS 2021-09-06 00:00:00 Completed [facility] Influenza Virus Vaccine Quad IM, Preserv and ABX Free 6 MO-64 YRS 2021-09-06 00:00:00 Completed [facility] Influenza Virus Vaccine Quad IM, Preserv and ABX Free 6 MO-64 YRS 2021-09-06 00:00:00 Completed [facility] Influenza Virus Vaccine Quad IM, Preserv and ABX Free 6 MO-64 YRS 2021-09-06 00:00:00 Completed [facility] Influenza Virus Vaccine Quad IM, Preserv and ABX Free 6 MO-64 YRS 2021-09-06 00:00:00 Completed [facility] Influenza Virus Vaccine Quad IM, Preserv and ABX Free 6 MO-64 YRS 2021-09-06 00:00:00 Completed [facility] Influenza Virus Vaccine Quad IM, Preserv and ABX Free 6 MO-64 YRS 2021-09-06 00:00:00 Completed [facility] Influenza Virus Vaccine Quad IM, Preserv and ABX Free 6 MO-64 YRS (FLUCELVAX) 2021-09-06 00:00:00 Completed [facility] 2021-07-17 00:00:00 Completed [facility] TDAP 2021-07-17 00:00:00 Completed [facility] TDAP 2021-07-17 00:00:00 Completed [facility] TDAP 2021-07-17 00:00:00 Completed [facility] TDAP 2021-07-17 00:00:00 Completed [facility] TDAP 2021-07-17 00:00:00 Completed [facility] TDAP 2021-07-17 00:00:00 Completed [facility] TDAP 2021-07-17 00:00:00 Completed [facility] TDAP 2021-07-17 00:00:00 Completed [facility] TDAP 2021-07-17 00:00:00 Completed [facility] TDAP 2021-07-17 00:00:00 Completed [facility] TDAP 2021-07-17 00:00:00 Completed [facility] TDAP 2021-07-17 00:00:00 Completed [facility] TDAP 2021-07-17 00:00:00 Completed [facility] TDAP 2021-07-17 00:00:00 Completed [facility] Rho (d) Immune Globulin 2021-05-29 00:00:00 Completed [facility] Rho (d) Immune Globulin 2021-05-29 00:00:00 Completed [facility] Rho (d) Immune Globulin 2021-05-29 00:00:00 Completed [facility] Rho (d) Immune Globulin 2021-05-29 00:00:00 Completed [facility] Rho (d) Immune Globulin 2021-05-29 00:00:00 Completed [facility] Rho (d) Immune Globulin 2021-05-29 00:00:00 Completed [facility] Rho (d) Immune Globulin 2021-05-29 00:00:00 Completed [facility] Rho (d) Immune Globulin 2021-05-29 00:00:00 Completed [facility] Rho (d) Immune Globulin 2021-05-29 00:00:00 Completed [facility] Rho (d) Immune Globulin 2021-05-29 00:00:00 Completed [facility] Rho (d) Immune Globulin 2021-05-29 00:00:00 Completed [facility] Rho (d) Immune Globulin 2021-05-29 00:00:00 Completed [facility] Rho (d) Immune Globulin 2021-05-29 00:00:00 Completed [facility] Rho (d) Immune Globulin 2021-05-29 00:00:00 Completed [facility] Rho (d) Immune Globulin 2021-05-29 00:00:00 Completed [facility] MMR 2020-02-01 00:00:00 Completed [facility] Rho (d) Immune Globulin 2020-02-01 00:00:00 Completed [facility] MMR 2020-02-01 00:00:00 Completed [facility] Rho (d) Immune Globulin 2020-02-01 00:00:00 Completed [facility] MMR 2020-02-01 00:00:00 Completed [facility] Rho (d) Immune Globulin 2020-02-01 00:00:00 Completed [facility] MMR 2020-02-01 00:00:00 Completed [facility] Rho (d) Immune Globulin 2020-02-01 00:00:00 Completed [facility] MMR 2020-02-01 00:00:00 Completed [facility] Rho (d) Immune Globulin 2020-02-01 00:00:00 Completed [facility] MMR 2020-02-01 00:00:00 Completed [facility] Rho (d) Immune Globulin 2020-02-01 00:00:00 Completed [facility] MMR 2020-02-01 00:00:00 Completed [facility] Rho (d) Immune Globulin 2020-02-01 00:00:00 Completed [facility] MMR 2020-02-01 00:00:00 Completed [facility] Rho (d) Immune Globulin 2020-02-01 00:00:00 Completed [facility] MMR 2020-02-01 00:00:00 Completed [facility] Rho (d) Immune Globulin 2020-02-01 00:00:00 Completed [facility] MMR 2020-02-01 00:00:00 Completed [facility] Rho (d) Immune Globulin 2020-02-01 00:00:00 Completed [facility] MMR 2020-02-01 00:00:00 Completed [facility] Rho (d) Immune Globulin 2020-02-01 00:00:00 Completed [facility] MMR 2020-02-01 00:00:00 Completed [facility] Rho (d) Immune Globulin 2020-02-01 00:00:00 Completed [facility] MMR 2020-02-01 00:00:00 Completed [facility] Rho (d) Immune Globulin 2020-02-01 00:00:00 Completed [facility] MMR 2020-02-01 00:00:00 Completed [facility] Rho (d) Immune Globulin 2020-02-01 00:00:00 Completed [facility] MMR 2020-02-01 00:00:00 Completed [facility] Rho (d) Immune Globulin 2020-02-01 00:00:00 Completed [facility]AP (ADACEL) VACCINE 2019-12-08 00:00:00 Completed [facility] TDAP (ADACEL) VACCINE 2019-12-08 00:00:00 Completed [facility] TDAP (ADACEL) VACCINE 2019-12-08 00:00:00 Completed [facility] TDAP (ADACEL) VACCINE 2019-12-08 00:00:00 Completed [facility] TDAP (ADACEL) VACCINE 2019-12-08 00:00:00 Completed [facility] TDAP (ADACEL) VACCINE 2019-12-08 00:00:00 Completed [facility] TDAP (ADACEL) VACCINE 2019-12-08 00:00:00 Completed [facility] TDAP (ADACEL) VACCINE 2019-12-08 00:00:00 Completed [facility] TDAP (ADACEL) VACCINE 2019-12-08 00:00:00 Completed [facility] TDAP (ADACEL) VACCINE 2019-12-08 00:00:00 Completed [facility] TDAP (ADACEL) VACCINE 2019-12-08 00:00:00 Completed [facility] TDAP (ADACEL) VACCINE 2019-12-08 00:00:00 Completed [facility] TDAP (ADACEL) VACCINE 2019-12-08 00:00:00 Completed [facility] TDAP (ADACEL) VACCINE 2019-12-08 00:00:00 Completed [facility] TDAP (ADACEL) VACCINE 2019-12-08 00:00:00 Completed Influenza Virus Vaccine Quad .5 mL IM 6+ MO 2019-08-18 00:00:00 Completed [facility] Influenza Virus Vaccine 2019-08-18 00:00:00 Completed [facility] Influenza Virus Vaccine Quad .5 mL IM 6+ MO 2019-08-18 00:00:00 Completed [facility] Influenza Virus Vaccine 2019-08-18 00:00:00 Completed [facility] Influenza Virus Vaccine Quad .5 mL IM 6+ MO 2019-08-18 00:00:00 Completed [facility] Influenza Virus Vaccine 2019-08-18 00:00:00 Completed [facility] Influenza Virus Vaccine Quad .5 mL IM 6+ MO 2019-08-18 00:00:00 Completed [facility] Influenza Virus Vaccine 2019-08-18 00:00:00 Completed [facility] Influenza Virus Vaccine Quad .5 mL IM 6+ MO 2019-08-18 00:00:00 Completed [facility] Influenza Virus Vaccine 2019-08-18 00:00:00 Completed [facility] Influenza Virus Vaccine Quad .5 mL IM 6+ MO 2019-08-18 00:00:00 Completed [facility] Influenza Virus Vaccine 2019-08-18 00:00:00 Completed [facility] Influenza Virus Vaccine Quad .5 mL IM 6+ MO 2019-08-18 00:00:00 Completed [facility] Influenza Virus Vaccine 2019-08-18 00:00:00 Completed [facility] Influenza Virus Vaccine Quad .5 mL IM 6+ MO 2019-08-18 00:00:00 Completed [facility] Influenza Virus Vaccine 2019-08-18 00:00:00 Completed [facility] Influenza Virus Vaccine Quad .5 mL IM 6+ MO 2019-08-18 00:00:00 Completed [facility] Influenza Virus Vaccine 2019-08-18 00:00:00 Completed [facility] Influenza Virus Vaccine Quad .5 mL IM 6+ MO 2019-08-18 00:00:00 Completed [facility] Influenza Virus Vaccine 2019-08-18 00:00:00 Completed [facility] Influenza Virus Vaccine Quad .5 mL IM 6+ MO 2019-08-18 00:00:00 Completed [facility] Influenza Virus Vaccine 2019-08-18 00:00:00 Completed [facility] Influenza Virus Vaccine Quad .5 mL IM 6+ MO 2019-08-18 00:00:00 Completed [facility] Influenza Virus Vaccine 2019-08-18 00:00:00 Completed [facility] Influenza Virus Vaccine Quad .5 mL IM 6+ MO 2019-08-18 00:00:00 Completed [facility] Influenza Virus Vaccine 2019-08-18 00:00:00 Completed [facility] Influenza Virus Vaccine Quad .5 mL IM 6+ MO 2019-08-18 00:00:00 Completed [facility] Influenza Virus Vaccine 2019-08-18 00:00:00 Completed [facility] Influenza Virus Vaccine Quad .5 mL IM 6+ MO (FLUZONE/FLULAVAL/FL UARIX) 2019-08-18 00:00:00 Completed Influenza Virus Vaccine 2019-08-18 00:00:00 Completed Rho (d) Immune Globulin 2019-07-27 00:00:00 Completed [facility] Rho (d) Immune Globulin 2019-07-27 00:00:00 Completed [facility] Rho (d) Immune Globulin 2019-07-27 00:00:00 Completed [facility] Rho (d) Immune Globulin 2019-07-27 00:00:00 Completed [facility] Rho (d) Immune Globulin 2019-07-27 00:00:00 Completed [facility] Rho (d) Immune Globulin 2019-07-27 00:00:00 Completed [facility] Rho (d) Immune Globulin 2019-07-27 00:00:00 Completed [facility] Rho (d) Immune Globulin 2019-07-27 00:00:00 Completed [facility] Rho (d) Immune Globulin 2019-07-27 00:00:00 Completed [facility] Rho (d) Immune Globulin 2019-07-27 00:00:00 Completed [facility] Rho (d) Immune Globulin 2019-07-27 00:00:00 Completed [facility] Rho (d) Immune Globulin 2019-07-27 00:00:00 Completed [facility] Rho (d) Immune Globulin 2019-07-27 00:00:00 Completed [facility] Rho (d) Immune Globulin 2019-07-27 00:00:00 Completed [facility] Rho (d) Immune Globulin 2019-07-27 00:00:00 Completed [facility] Influenza Virus Vaccine Quad IM 3+ YRS 2018-09-10 00:00:00 Completed [facility] Influenza Virus Vaccine Quad IM 3+ YRS 2018-09-10 00:00:00 Completed [facility] Influenza Virus Vaccine Quad IM 3+ YRS 2018-09-10 00:00:00 Completed [facility] Influenza Virus Vaccine Quad IM 3+ YRS 2018-09-10 00:00:00 Completed [facility] Influenza Virus Vaccine Quad IM 3+ YRS 2018-09-10 00:00:00 Completed [facility] Influenza Virus Vaccine Quad IM 3+ YRS 2018-09-10 00:00:00 Completed [facility] Influenza Virus Vaccine Quad IM 3+ YRS 2018-09-10 00:00:00 Completed [facility] Influenza Virus Vaccine Quad IM 3+ YRS 2018-09-10 00:00:00 Completed [facility] Influenza Virus Vaccine Quad IM 3+ YRS 2018-09-10 00:00:00 Completed [facility] Influenza Virus Vaccine Quad IM 3+ YRS 2018-09-10 00:00:00 Completed [facility] Influenza Virus Vaccine Quad IM 3+ YRS 2018-09-10 00:00:00 Completed [facility] Influenza Virus Vaccine Quad IM 3+ YRS 2018-09-10 00:00:00 Completed [facility] Influenza Virus Vaccine Quad IM 3+ YRS 2018-09-10 00:00:00 Completed [facility] Influenza Virus Vaccine Quad IM 3+ YRS 2018-09-10 00:00:00 Completed [facility] Influenza Virus Vaccine Quad IM 3+ YRS 2018-09-10 00:00:00 Completed Influenza Virus Vaccine Quad IM 3+ YRS 2017-09-12 00:00:00 Completed [facility] Influenza Virus Vaccine Quad IM 3+ YRS 2017-09-12 00:00:00 Completed [facility] Influenza Virus Vaccine Quad IM 3+ YRS 2017-09-12 00:00:00 Completed [facility] Influenza Virus Vaccine Quad IM 3+ YRS 2017-09-12 00:00:00 Completed [facility] Influenza Virus Vaccine Quad IM 3+ YRS 2017-09-12 00:00:00 Completed [facility] Influenza Virus Vaccine Quad IM 3+ YRS 2017-09-12 00:00:00 Completed [facility] Influenza Virus Vaccine Quad IM 3+ YRS 2017-09-12 00:00:00 Completed [facility] Influenza Virus Vaccine Quad IM 3+ YRS 2017-09-12 00:00:00 Completed [facility] Influenza Virus Vaccine Quad IM 3+ YRS 2017-09-12 00:00:00 Completed [facility] Influenza Virus Vaccine Quad IM 3+ YRS 2017-09-12 00:00:00 Completed [facility] Influenza Virus Vaccine Quad IM 3+ YRS 2017-09-12 00:00:00 Completed [facility] Influenza Virus Vaccine Quad IM 3+ YRS 2017-09-12 00:00:00 Completed [facility] Influenza Virus Vaccine Quad IM 3+ YRS 2017-09-12 00:00:00 Completed [facility] Influenza Virus Vaccine Quad IM 3+ YRS 2017-09-12 00:00:00 Completed [facility] Influenza Virus Vaccine Quad IM 3+ YRS 2017-09-12 00:00:00 Completed Influenza Virus Vaccine Nasal 2015-10-13 00:00:00 Completed [facility] Influenza Virus Vaccine Nasal 2015-10-13 00:00:00 Completed [facility] Influenza Virus Vaccine Nasal 2015-10-13 00:00:00 Completed [facility] Influenza Virus Vaccine Nasal 2015-10-13 00:00:00 Completed [facility] Influenza Virus Vaccine Nasal 2015-10-13 00:00:00 Completed [facility] Influenza Virus Vaccine Nasal 2015-10-13 00:00:00 Completed [facility] Influenza Virus Vaccine Nasal 2015-10-13 00:00:00 Completed [facility] Influenza Virus Vaccine Nasal 2015-10-13 00:00:00 Completed [facility] Influenza Virus Vaccine Nasal 2015-10-13 00:00:00 Completed [facility] Influenza Virus Vaccine Nasal 2015-10-13 00:00:00 Completed [facility] Influenza Virus Vaccine Nasal 2015-10-13 00:00:00 Completed [facility] Influenza Virus Vaccine Nasal 2015-10-13 00:00:00 Completed [facility] Influenza Virus Vaccine Nasal 2015-10-13 00:00:00 Completed [facility] Influenza Virus Vaccine Nasal 2015-10-13 00:00:00 Completed [facility] Influenza, Live, Trivalent, Intranasal (FLUMIST) 2015-10-13 00:00:00 Completed Influenza Virus Vaccine Quad Nasal (Flumist) 2015-10-13 00:00:00 Completed Influenza Virus Vaccine 2014-09-02 00:00:00 Completed [facility] Influenza Virus Vaccine 2014-09-02 00:00:00 Completed [facility] Influenza Virus Vaccine 2014-09-02 00:00:00 Completed [facility] Influenza Virus Vaccine 2014-09-02 00:00:00 Completed [facility] Influenza Virus Vaccine 2014-09-02 00:00:00 Completed [facility] Influenza Virus Vaccine 2014-09-02 00:00:00 Completed [facility] Influenza Virus Vaccine 2014-09-02 00:00:00 Completed [facility] Influenza Virus Vaccine 2014-09-02 00:00:00 Completed [facility] Influenza Virus Vaccine 2014-09-02 00:00:00 Completed [facility] Influenza Virus Vaccine 2014-09-02 00:00:00 Completed [facility] Influenza Virus Vaccine 2014-09-02 00:00:00 Completed [facility] Influenza Virus Vaccine 2014-09-02 00:00:00 Completed [facility] Influenza Virus Vaccine 2014-09-02 00:00:00 Completed [facility] Influenza Virus Vaccine 2014-09-02 00:00:00 Completed [facility] Influenza Virus Vaccine 2014-09-02 00:00:00 Completed [facility] Influenza Virus Vaccine Quad .5 mL IM 6+ MO (FLUZONE/FLULAVAL/FL UARIX) 2014-09-02 00:00:00 Completed HPV 2014-01-18 00:00:00 Completed [facility] Meningococcal Vaccine 2014-01-18 00:00:00 Completed [facility] Varicella (varivax)(chicken pox) 2014-01-18 00:00:00 Completed [facility] TDAP 2014-01-18 00:00:00 Completed [facility] Meningococcal Polysaccharide (groups A, C, Y and W-135) conjugate vaccine (MCV4P) 2014-01-18 00:00:00 Completed [facility] HPV 2014-01-18 00:00:00 Completed [facility] Meningococcal Vaccine 2014-01-18 00:00:00 Completed [facility] Varicella (varivax)(chicken pox) 2014-01-18 00:00:00 Completed [facility] TDAP 2014-01-18 00:00:00 Completed [facility] Meningococcal Polysaccharide (groups A, C, Y and W-135) conjugate vaccine (MCV4P) 2014-01-18 00:00:00 Completed [facility] HPV 2014-01-18 00:00:00 Completed [facility] Meningococcal Vaccine 2014-01-18 00:00:00 Completed [facility] Varicella (varivax)(chicken pox) 2014-01-18 00:00:00 Completed [facility] TDAP 2014-01-18 00:00:00 Completed [facility] Meningococcal Polysaccharide (groups A, C, Y and W-135) conjugate vaccine (MCV4P) 2014-01-18 00:00:00 Completed [facility] HPV 2014-01-18 00:00:00 Completed [facility] Meningococcal Vaccine 2014-01-18 00:00:00 Completed [facility] Varicella (varivax)(chicken pox) 2014-01-18 00:00:00 Completed [facility] TDAP 2014-01-18 00:00:00 Completed [facility] Meningococcal Polysaccharide (groups A, C, Y and W-135) conjugate vaccine (MCV4P) 2014-01-18 00:00:00 Completed [facility] HPV 2014-01-18 00:00:00 Completed [facility] Meningococcal Vaccine 2014-01-18 00:00:00 Completed [facility] Varicella (varivax)(chicken pox) 2014-01-18 00:00:00 Completed [facility] TDAP 2014-01-18 00:00:00 Completed [facility] Meningococcal Polysaccharide (groups A, C, Y and W-135) conjugate vaccine (MCV4P) 2014-01-18 00:00:00 Completed [facility] HPV 2014-01-18 00:00:00 Completed [facility] Meningococcal Vaccine 2014-01-18 00:00:00 Completed [facility] Varicella (varivax)(chicken pox) 2014-01-18 00:00:00 Completed [facility] TDAP 2014-01-18 00:00:00 Completed [facility] Meningococcal Polysaccharide (groups A, C, Y and W-135) conjugate vaccine (MCV4P) 2014-01-18 00:00:00 Completed [facility] HPV 2014-01-18 00:00:00 Completed [facility] Meningococcal Vaccine 2014-01-18 00:00:00 Completed [facility] Varicella (varivax)(chicken pox) 2014-01-18 00:00:00 Completed [facility] TDAP 2014-01-18 00:00:00 Completed [facility] Meningococcal Polysaccharide (groups A, C, Y and W-135) conjugate vaccine (MCV4P) 2014-01-18 00:00:00 Completed [facility] HPV 2014-01-18 00:00:00 Completed [facility] Meningococcal Vaccine 2014-01-18 00:00:00 Completed [facility] Varicella (varivax)(chicken pox) 2014-01-18 00:00:00 Completed [facility] TDAP 2014-01-18 00:00:00 Completed [facility] Meningococcal Polysaccharide (groups A, C, Y and W-135) conjugate vaccine (MCV4P) 2014-01-18 00:00:00 Completed [facility] HPV 2014-01-18 00:00:00 Completed [facility] Meningococcal Vaccine 2014-01-18 00:00:00 Completed [facility] Varicella (varivax)(chicken pox) 2014-01-18 00:00:00 Completed [facility] TDAP 2014-01-18 00:00:00 Completed [facility] Meningococcal Polysaccharide (groups A, C, Y and W-135) conjugate vaccine (MCV4P) 2014-01-18 00:00:00 Completed [facility] HPV 2014-01-18 00:00:00 Completed [facility] Meningococcal Vaccine 2014-01-18 00:00:00 Completed [facility] Varicella (varivax)(chicken pox) 2014-01-18 00:00:00 Completed [facility] TDAP 2014-01-18 00:00:00 Completed [facility] Meningococcal Polysaccharide (groups A, C, Y and W-135) conjugate vaccine (MCV4P) 2014-01-18 00:00:00 Completed [facility] HPV 2014-01-18 00:00:00 Completed [facility] Meningococcal Vaccine 2014-01-18 00:00:00 Completed [facility] Varicella (varivax)(chicken pox) 2014-01-18 00:00:00 Completed [facility] TDAP 2014-01-18 00:00:00 Completed [facility] Meningococcal Polysaccharide (groups A, C, Y and W-135) conjugate vaccine (MCV4P) 2014-01-18 00:00:00 Completed [facility] HPV 2014-01-18 00:00:00 Completed [facility] Meningococcal Vaccine 2014-01-18 00:00:00 Completed [facility] Varicella (varivax)(chicken pox) 2014-01-18 00:00:00 Completed [facility] TDAP 2014-01-18 00:00:00 Completed [facility] Meningococcal Polysaccharide (groups A, C, Y and W-135) conjugate vaccine (MCV4P) 2014-01-18 00:00:00 Completed [facility] HPV 2014-01-18 00:00:00 Completed [facility] Meningococcal Vaccine 2014-01-18 00:00:00 Completed [facility] Varicella (varivax)(chicken pox) 2014-01-18 00:00:00 Completed [facility] TDAP 2014-01-18 00:00:00 Completed [facility] Meningococcal Polysaccharide (groups A, C, Y and W-135) conjugate vaccine (MCV4P) 2014-01-18 00:00:00 Completed [facility] HPV 2014-01-18 00:00:00 Completed [facility] Meningococcal Vaccine 2014-01-18 00:00:00 Completed [facility] Varicella (varivax)(chicken pox) 2014-01-18 00:00:00 Completed [facility] TDAP 2014-01-18 00:00:00 Completed [facility] Meningococcal Polysaccharide (groups A, C, Y and W-135) conjugate vaccine (MCV4P) 2014-01-18 00:00:00 Completed [facility] HPV 2014-01-18 00:00:00 Completed Meningococcal Vaccine 2014-01-18 00:00:00 Completed Varicella (varivax)(chicken pox) 2014-01-18 00:00:00 Completed TDAP 2014-01-18 00:00:00 Completed Meningococcal Polysaccharide (groups A, C, Y and W-135) conjugate vaccine (MCV4P) 2014-01-18 00:00:00 Completed Influenza Virus Vaccine 2013-09-23 00:00:00 Completed [facility] Influenza Virus Vaccine 2013-09-23 00:00:00 Completed [facility] Influenza Virus Vaccine 2013-09-23 00:00:00 Completed [facility] Influenza Virus Vaccine 2013-09-23 00:00:00 Completed [facility] Influenza Virus Vaccine 2013-09-23 00:00:00 Completed [facility] Influenza Virus Vaccine 2013-09-23 00:00:00 Completed [facility] Influenza Virus Vaccine 2013-09-23 00:00:00 Completed [facility] Influenza Virus Vaccine 2013-09-23 00:00:00 Completed [facility] Influenza Virus Vaccine 2013-09-23 00:00:00 Completed [facility] Influenza Virus Vaccine 2013-09-23 00:00:00 Completed [facility] Influenza Virus Vaccine 2013-09-23 00:00:00 Completed [facility] Influenza Virus Vaccine 2013-09-23 00:00:00 Completed [facility] Influenza Virus Vaccine 2013-09-23 00:00:00 Completed [facility] Influenza Virus Vaccine 2013-09-23 00:00:00 Completed [facility] Influenza Virus Vaccine 2013-09-23 00:00:00 Completed Influenza Virus Vaccine Quad .5 mL IM 6+ MO (FLUZONE/FLULAVAL/FL UARIX) 2013-09-23 00:00:00 Completed Influenza Virus Vaccine 2012-11-24 00:00:00 Completed [facility] Influenza Virus Vaccine 2012-11-24 00:00:00 Completed [facility] Influenza Virus Vaccine 2012-11-24 00:00:00 Completed [facility] Influenza Virus Vaccine 2012-11-24 00:00:00 Completed [facility] Influenza Virus Vaccine 2012-11-24 00:00:00 Completed [facility] Influenza Virus Vaccine 2012-11-24 00:00:00 Completed [facility] Influenza Virus Vaccine 2012-11-24 00:00:00 Completed [facility] Influenza Virus Vaccine 2012-11-24 00:00:00 Completed [facility] Influenza Virus Vaccine 2012-11-24 00:00:00 Completed [facility] Influenza Virus Vaccine 2012-11-24 00:00:00 Completed [facility] Influenza Virus Vaccine 2012-11-24 00:00:00 Completed [facility] Influenza Virus Vaccine 2012-11-24 00:00:00 Completed [facility] Influenza Virus Vaccine 2012-11-24 00:00:00 Completed [facility] Influenza Virus Vaccine 2012-11-24 00:00:00 Completed [facility] Influenza Virus Vaccine 2012-11-24 00:00:00 Completed Influenza, adjuvanted, trivalent, PF (FLUAD) 2012-11-24 00:00:00 Completed Influenza, split virus, trivalent, PF (AFLURIA/FLUARIX/FLU LAVAL/FLUZONE) 2012-11-24 00:00:00 Completed Influenza Virus Vaccine Nasal 2011-08-23 00:00:00 Completed [facility] Influenza Virus Vaccine Nasal 2011-08-23 00:00:00 Completed [facility] Influenza Virus Vaccine Nasal 2011-08-23 00:00:00 Completed [facility] Influenza Virus Vaccine Nasal 2011-08-23 00:00:00 Completed [facility] Influenza Virus Vaccine Nasal 2011-08-23 00:00:00 Completed [facility] Influenza Virus Vaccine Nasal 2011-08-23 00:00:00 Completed [facility] Influenza Virus Vaccine Nasal 2011-08-23 00:00:00 Completed [facility] Influenza Virus Vaccine Nasal 2011-08-23 00:00:00 Completed [facility] Influenza Virus Vaccine Nasal 2011-08-23 00:00:00 Completed [facility] Influenza Virus Vaccine Nasal 2011-08-23 00:00:00 Completed [facility] Influenza Virus Vaccine Nasal 2011-08-23 00:00:00 Completed [facility] Influenza Virus Vaccine Nasal 2011-08-23 00:00:00 Completed [facility] Influenza Virus Vaccine Nasal 2011-08-23 00:00:00 Completed [facility] Influenza Virus Vaccine Nasal 2011-08-23 00:00:00 Completed [facility] Influenza, Live, Trivalent, Intranasal (FLUMIST) 2011-08-23 00:00:00 Completed HPV 2011-07-04 00:00:00 Completed [facility] HPV 2011-07-04 00:00:00 Completed [facility] HPV 2011-07-04 00:00:00 Completed [facility] HPV 2011-07-04 00:00:00 Completed [facility] HPV 2011-07-04 00:00:00 Completed [facility] HPV 2011-07-04 00:00:00 Completed [facility] HPV 2011-07-04 00:00:00 Completed [facility] HPV 2011-07-04 00:00:00 Completed [facility] HPV 2011-07-04 00:00:00 Completed [facility] HPV 2011-07-04 00:00:00 Completed [facility] HPV 2011-07-04 00:00:00 Completed [facility] HPV 2011-07-04 00:00:00 Completed [facility] HPV 2011-07-04 00:00:00 Completed [facility] HPV 2011-07-04 00:00:00 Completed [facility] HPV 2011-07-04 00:00:00 Completed Influenza Virus Vaccine 2010-09-06 00:00:00 Completed [facility] Influenza Virus Vaccine 2010-09-06 00:00:00 Completed [facility] Influenza Virus Vaccine 2010-09-06 00:00:00 Completed [facility] Influenza Virus Vaccine 2010-09-06 00:00:00 Completed [facility] Influenza Virus Vaccine 2010-09-06 00:00:00 Completed [facility] Influenza Virus Vaccine 2010-09-06 00:00:00 Completed [facility] Influenza Virus Vaccine 2010-09-06 00:00:00 Completed [facility] Influenza Virus Vaccine 2010-09-06 00:00:00 Completed [facility] Influenza Virus Vaccine 2010-09-06 00:00:00 Completed [facility] Influenza Virus Vaccine 2010-09-06 00:00:00 Completed [facility] Influenza Virus Vaccine 2010-09-06 00:00:00 Completed [facility] Influenza Virus Vaccine 2010-09-06 00:00:00 Completed [facility] Influenza Virus Vaccine 2010-09-06 00:00:00 Completed [facility] Influenza Virus Vaccine 2010-09-06 00:00:00 Completed [facility] Influenza Virus Vaccine 2010-09-06 00:00:00 Completed Flu Whole Virus 2010-09-06 00:00:00 Completed HEPATITIS A 2006-12-16 00:00:00 Completed [facility] HEPATITIS A 2006-12-16 00:00:00 Completed [facility] HEPATITIS A 2006-12-16 00:00:00 Completed [facility] HEPATITIS A 2006-12-16 00:00:00 Completed [facility] HEPATITIS A 2006-12-16 00:00:00 Completed [facility] HEPATITIS A 2006-12-16 00:00:00 Completed [facility] HEPATITIS A 2006-12-16 00:00:00 Completed [facility] HEPATITIS A 2006-12-16 00:00:00 Completed [facility] HEPATITIS A 2006-12-16 00:00:00 Completed [facility] HEPATITIS A 2006-12-16 00:00:00 Completed [facility] HEPATITIS A 2006-12-16 00:00:00 Completed [facility] HEPATITIS A 2006-12-16 00:00:00 Completed [facility] HEPATITIS A 2006-12-16 00:00:00 Completed [facility] HEPATITIS A 2006-12-16 00:00:00 Completed [facility] HEPATITIS A 2006-12-16 00:00:00 Completed HEPATITIS A 2005-10-11 00:00:00 Completed [facility] HEPATITIS A 2005-10-11 00:00:00 Completed [facility] HEPATITIS A 2005-10-11 00:00:00 Completed [facility] HEPATITIS A 2005-10-11 00:00:00 Completed [facility] HEPATITIS A 2005-10-11 00:00:00 Completed [facility] HEPATITIS A 2005-10-11 00:00:00 Completed [facility] HEPATITIS A 2005-10-11 00:00:00 Completed [facility] HEPATITIS A 2005-10-11 00:00:00 Completed [facility] HEPATITIS A 2005-10-11 00:00:00 Completed [facility] HEPATITIS A 2005-10-11 00:00:00 Completed [facility] HEPATITIS A 2005-10-11 00:00:00 Completed [facility] HEPATITIS A 2005-10-11 00:00:00 Completed [facility] HEPATITIS A 2005-10-11 00:00:00 Completed [facility] HEPATITIS A 2005-10-11 00:00:00 Completed [facility] HEPATITIS A 2005-10-11 00:00:00 Completed Influenza Virus Vaccine 2003-09-06 00:00:00 Completed [facility] Influenza Virus Vaccine 2003-09-06 00:00:00 Completed [facility] Influenza Virus Vaccine 2003-09-06 00:00:00 Completed [facility] Influenza Virus Vaccine 2003-09-06 00:00:00 Completed [facility] Influenza Virus Vaccine 2003-09-06 00:00:00 Completed [facility] Influenza Virus Vaccine 2003-09-06 00:00:00 Completed [facility] Influenza Virus Vaccine 2003-09-06 00:00:00 Completed [facility] Influenza Virus Vaccine 2003-09-06 00:00:00 Completed [facility] Influenza Virus Vaccine 2003-09-06 00:00:00 Completed [facility] Influenza Virus Vaccine 2003-09-06 00:00:00 Completed [facility] Influenza Virus Vaccine 2003-09-06 00:00:00 Completed [facility] Influenza Virus Vaccine 2003-09-06 00:00:00 Completed [facility] Influenza Virus Vaccine 2003-09-06 00:00:00 Completed [facility] Influenza Virus Vaccine 2003-09-06 00:00:00 Completed [facility] Influenza Virus Vaccine 2003-09-06 00:00:00 Completed Influenza, adjuvanted, trivalent, PF (FLUAD) 2003-09-06 00:00:00 Completed Influenza, split virus, trivalent, PF (AFLURIA/FLUARIX/FLU LAVAL/FLUZONE) 2003-09-06 00:00:00 Completed DTAP 2003-02-08 00:00:00 Completed [facility] HIB 4 Dose Schedule 2003-02-08 00:00:00 Completed [facility] TDAP 2003-02-08 00:00:00 Completed [facility] DTAP 2003-02-08 00:00:00 Completed [facility] HIB 4 Dose Schedule 2003-02-08 00:00:00 Completed [facility] TDAP 2003-02-08 00:00:00 Completed [facility] DTAP 2003-02-08 00:00:00 Completed [facility] TDAP 2003-02-08 00:00:00 Completed [facility] Heamophilus Influenza B 2003-02-08 00:00:00 Completed [facility] DTAP 2003-02-08 00:00:00 Completed [facility] TDAP 2003-02-08 00:00:00 Completed [facility] Heamophilus Influenza B 2003-02-08 00:00:00 Completed [facility] DTAP 2003-02-08 00:00:00 Completed [facility] HIB 4 Dose Schedule 2003-02-08 00:00:00 Completed [facility] TDAP 2003-02-08 00:00:00 Completed [facility] DTAP 2003-02-08 00:00:00 Completed [facility] TDAP 2003-02-08 00:00:00 Completed [facility] Heamophilus Influenza B 2003-02-08 00:00:00 Completed [facility] DTAP 2003-02-08 00:00:00 Completed [facility] HIB 4 Dose Schedule 2003-02-08 00:00:00 Completed [facility] TDAP 2003-02-08 00:00:00 Completed [facility] DTAP 2003-02-08 00:00:00 Completed [facility] HIB 4 Dose Schedule 2003-02-08 00:00:00 Completed [facility] TDAP 2003-02-08 00:00:00 Completed [facility] DTAP 2003-02-08 00:00:00 Completed [facility] HIB 4 Dose Schedule 2003-02-08 00:00:00 Completed [facility] TDAP 2003-02-08 00:00:00 Completed [facility] DTAP 2003-02-08 00:00:00 Completed [facility] HIB 4 Dose Schedule 2003-02-08 00:00:00 Completed [facility] TDAP 2003-02-08 00:00:00 Completed [facility] DTAP 2003-02-08 00:00:00 Completed [facility] HIB 4 Dose Schedule 2003-02-08 00:00:00 Completed [facility] TDAP 2003-02-08 00:00:00 Completed [facility] DTAP 2003-02-08 00:00:00 Completed [facility] HIB 4 Dose Schedule 2003-02-08 00:00:00 Completed [facility] TDAP 2003-02-08 00:00:00 Completed [facility] DTAP 2003-02-08 00:00:00 Completed [facility] HIB 4 Dose Schedule 2003-02-08 00:00:00 Completed [facility] TDAP 2003-02-08 00:00:00 Completed [facility] DTAP 2003-02-08 00:00:00 Completed [facility] HIB 4 Dose Schedule 2003-02-08 00:00:00 Completed [facility] TDAP 2003-02-08 00:00:00 Completed [facility] DTAP 2003-02-08 00:00:00 Completed Heamophilus Influenza B 2003-02-08 00:00:00 Completed TDAP 2003-02-08 00:00:00 Completed DTaP, Unspecified Formulation 2003-02-08 00:00:00 Completed Varicella (varivax)(chicken pox) 2002-11-23 00:00:00 Completed [facility] MMR 2002-11-23 00:00:00 Completed [facility] IPV 2002-11-23 00:00:00 Completed [facility] Varicella (varivax)(chicken pox) 2002-11-23 00:00:00 Completed [facility] MMR 2002-11-23 00:00:00 Completed [facility] IPV 2002-11-23 00:00:00 Completed [facility] Varicella (varivax)(chicken pox) 2002-11-23 00:00:00 Completed [facility] MMR 2002-11-23 00:00:00 Completed [facility] IPV 2002-11-23 00:00:00 Completed [facility] Varicella (varivax)(chicken pox) 2002-11-23 00:00:00 Completed [facility] MMR 2002-11-23 00:00:00 Completed [facility] IPV 2002-11-23 00:00:00 Completed [facility] Varicella (varivax)(chicken pox) 2002-11-23 00:00:00 Completed [facility] MMR 2002-11-23 00:00:00 Completed [facility] IPV 2002-11-23 00:00:00 Completed [facility] Varicella (varivax)(chicken pox) 2002-11-23 00:00:00 Completed [facility] MMR 2002-11-23 00:00:00 Completed [facility] IPV 2002-11-23 00:00:00 Completed [facility] Varicella (varivax)(chicken pox) 2002-11-23 00:00:00 Completed [facility] MMR 2002-11-23 00:00:00 Completed [facility] IPV 2002-11-23 00:00:00 Completed [facility] Varicella (varivax)(chicken pox) 2002-11-23 00:00:00 Completed [facility] MMR 2002-11-23 00:00:00 Completed [facility] IPV 2002-11-23 00:00:00 Completed [facility] Varicella (varivax)(chicken pox) 2002-11-23 00:00:00 Completed [facility] MMR 2002-11-23 00:00:00 Completed [facility] IPV 2002-11-23 00:00:00 Completed [facility] Varicella (varivax)(chicken pox) 2002-11-23 00:00:00 Completed [facility] MMR 2002-11-23 00:00:00 Completed [facility] IPV 2002-11-23 00:00:00 Completed [facility] Varicella (varivax)(chicken pox) 2002-11-23 00:00:00 Completed [facility] MMR 2002-11-23 00:00:00 Completed [facility] IPV 2002-11-23 00:00:00 Completed [facility] Varicella (varivax)(chicken pox) 2002-11-23 00:00:00 Completed [facility] MMR 2002-11-23 00:00:00 Completed [facility] IPV 2002-11-23 00:00:00 Completed [facility] Varicella (varivax)(chicken pox) 2002-11-23 00:00:00 Completed [facility] MMR 2002-11-23 00:00:00 Completed [facility] IPV 2002-11-23 00:00:00 Completed [facility] Varicella (varivax)(chicken pox) 2002-11-23 00:00:00 Completed [facility] MMR 2002-11-23 00:00:00 Completed [facility] IPV 2002-11-23 00:00:00 Completed [facility] Varicella (varivax)(chicken pox) 2002-11-23 00:00:00 Completed MMR 2002-11-23 00:00:00 Completed IPV 2002-11-23 00:00:00 Completed DTAP 2002-08-03 00:00:00 Completed [facility] HIB 4 Dose Schedule 2002-08-03 00:00:00 Completed [facility] Hep B, Adol or Pedi Dosage 2002-08-03 00:00:00 Completed [facility] TDAP 2002-08-03 00:00:00 Completed [facility] DTAP 2002-08-03 00:00:00 Completed [facility] HIB 4 Dose Schedule 2002-08-03 00:00:00 Completed [facility] Hep B, Adol or Pedi Dosage 2002-08-03 00:00:00 Completed [facility] TDAP 2002-08-03 00:00:00 Completed [facility] DTAP 2002-08-03 00:00:00 Completed [facility] Hep B, Adol or Pedi Dosage 2002-08-03 00:00:00 Completed [facility] TDAP 2002-08-03 00:00:00 Completed [facility] Heamophilus Influenza B 2002-08-03 00:00:00 Completed [facility] DTAP 2002-08-03 00:00:00 Completed [facility] Hep B, Adol or Pedi Dosage 2002-08-03 00:00:00 Completed [facility] TDAP 2002-08-03 00:00:00 Completed [facility] Heamophilus Influenza B 2002-08-03 00:00:00 Completed [facility] DTAP 2002-08-03 00:00:00 Completed [facility] HIB 4 Dose Schedule 2002-08-03 00:00:00 Completed [facility] Hep B, Adol or Pedi Dosage 2002-08-03 00:00:00 Completed [facility] TDAP 2002-08-03 00:00:00 Completed [facility] DTAP 2002-08-03 00:00:00 Completed [facility] Hep B, Adol or Pedi Dosage 2002-08-03 00:00:00 Completed [facility] TDAP 2002-08-03 00:00:00 Completed [facility] Heamophilus Influenza B 2002-08-03 00:00:00 Completed [facility] DTAP 2002-08-03 00:00:00 Completed [facility] HIB 4 Dose Schedule 2002-08-03 00:00:00 Completed [facility] Hep B, Adol or Pedi Dosage 2002-08-03 00:00:00 Completed [facility] TDAP 2002-08-03 00:00:00 Completed [facility] DTAP 2002-08-03 00:00:00 Completed [facility] HIB 4 Dose Schedule 2002-08-03 00:00:00 Completed [facility] Hep B, Adol or Pedi Dosage 2002-08-03 00:00:00 Completed [facility] TDAP 2002-08-03 00:00:00 Completed [facility] DTAP 2002-08-03 00:00:00 Completed [facility] HIB 4 Dose Schedule 2002-08-03 00:00:00 Completed [facility] Hep B, Adol or Pedi Dosage 2002-08-03 00:00:00 Completed [facility] TDAP 2002-08-03 00:00:00 Completed [facility] DTAP 2002-08-03 00:00:00 Completed [facility] HIB 4 Dose Schedule 2002-08-03 00:00:00 Completed [facility] Hep B, Adol or Pedi Dosage 2002-08-03 00:00:00 Completed [facility] TDAP 2002-08-03 00:00:00 Completed [facility] DTAP 2002-08-03 00:00:00 Completed [facility] HIB 4 Dose Schedule 2002-08-03 00:00:00 Completed [facility] Hep B, Adol or Pedi Dosage 2002-08-03 00:00:00 Completed [facility] TDAP 2002-08-03 00:00:00 Completed [facility] DTAP 2002-08-03 00:00:00 Completed [facility] HIB 4 Dose Schedule 2002-08-03 00:00:00 Completed [facility] Hep B, Adol or Pedi Dosage 2002-08-03 00:00:00 Completed [facility] TDAP 2002-08-03 00:00:00 Completed [facility] DTAP 2002-08-03 00:00:00 Completed [facility] HIB 4 Dose Schedule 2002-08-03 00:00:00 Completed [facility] Hep B, Adol or Pedi Dosage 2002-08-03 00:00:00 Completed [facility] TDAP 2002-08-03 00:00:00 Completed [facility] DTAP 2002-08-03 00:00:00 Completed [facility] HIB 4 Dose Schedule 2002-08-03 00:00:00 Completed [facility] Hep B, Adol or Pedi Dosage 2002-08-03 00:00:00 Completed [facility] TDAP 2002-08-03 00:00:00 Completed [facility] DTAP 2002-08-03 00:00:00 Completed Heamophil[facility] Influenza B 2002-08-03 00:00:00 Completed Hep B, Adol or Pedi Dosage 2002-08-03 00:00:00 Completed TDAP 2002-08-03 00:00:00 Completed DTaP, Unspecified Formulation 2002-08-03 00:00:00 Completed DTAP 2002-03-15 00:00:00 Completed [facility] HIB 4 Dose Schedule 2002-03-15 00:00:00 Completed [facility] TDAP 2002-03-15 00:00:00 Completed [facility] IPV 2002-03-15 00:00:00 Completed [facility] DTAP 2002-03-15 00:00:00 Completed [facility] HIB 4 Dose Schedule 2002-03-15 00:00:00 Completed [facility] TDAP 2002-03-15 00:00:00 Completed [facility] IPV 2002-03-15 00:00:00 Completed [facility] DTAP 2002-03-15 00:00:00 Completed [facility] TDAP 2002-03-15 00:00:00 Completed [facility] IPV 2002-03-15 00:00:00 Completed [facility] Heamophilus Influenza B 2002-03-15 00:00:00 Completed [facility] DTAP 2002-03-15 00:00:00 Completed [facility] TDAP 2002-03-15 00:00:00 Completed [facility] IPV 2002-03-15 00:00:00 Completed [facility] Heamophilus Influenza B 2002-03-15 00:00:00 Completed [facility] DTAP 2002-03-15 00:00:00 Completed [facility] HIB 4 Dose Schedule 2002-03-15 00:00:00 Completed [facility] TDAP 2002-03-15 00:00:00 Completed [facility] IPV 2002-03-15 00:00:00 Completed [facility] DTAP 2002-03-15 00:00:00 Completed [facility] TDAP 2002-03-15 00:00:00 Completed [facility] IPV 2002-03-15 00:00:00 Completed [facility] Heamophilus Influenza B 2002-03-15 00:00:00 Completed [facility] DTAP 2002-03-15 00:00:00 Completed [facility] HIB 4 Dose Schedule 2002-03-15 00:00:00 Completed [facility] TDAP 2002-03-15 00:00:00 Completed [facility] IPV 2002-03-15 00:00:00 Completed [facility] DTAP 2002-03-15 00:00:00 Completed [facility] HIB 4 Dose Schedule 2002-03-15 00:00:00 Completed [facility] TDAP 2002-03-15 00:00:00 Completed [facility] IPV 2002-03-15 00:00:00 Completed [facility] DTAP 2002-03-15 00:00:00 Completed [facility] HIB 4 Dose Schedule 2002-03-15 00:00:00 Completed [facility] TDAP 2002-03-15 00:00:00 Completed [facility] IPV 2002-03-15 00:00:00 Completed [facility] DTAP 2002-03-15 00:00:00 Completed [facility] HIB 4 Dose Schedule 2002-03-15 00:00:00 Completed [facility] TDAP 2002-03-15 00:00:00 Completed [facility] IPV 2002-03-15 00:00:00 Completed [facility] DTAP 2002-03-15 00:00:00 Completed [facility] HIB 4 Dose Schedule 2002-03-15 00:00:00 Completed [facility] TDAP 2002-03-15 00:00:00 Completed [facility] IPV 2002-03-15 00:00:00 Completed [facility] DTAP 2002-03-15 00:00:00 Completed [facility] HIB 4 Dose Schedule 2002-03-15 00:00:00 Completed [facility] TDAP 2002-03-15 00:00:00 Completed [facility] IPV 2002-03-15 00:00:00 Completed [facility] DTAP 2002-03-15 00:00:00 Completed [facility] HIB 4 Dose Schedule 2002-03-15 00:00:00 Completed [facility] TDAP 2002-03-15 00:00:00 Completed [facility] IPV 2002-03-15 00:00:00 Completed [facility] DTAP 2002-03-15 00:00:00 Completed [facility] HIB 4 Dose Schedule 2002-03-15 00:00:00 Completed [facility] TDAP 2002-03-15 00:00:00 Completed [facility] IPV 2002-03-15 00:00:00 Completed [facility] DTAP 2002-03-15 00:00:00 Completed Heamophilus Influenza B 2002-03-15 00:00:00 Completed TDAP 2002-03-15 00:00:00 Completed IPV 2002-03-15 00:00:00 Completed DTaP, Unspecified Formulation 2002-03-15 00:00:00 Completed DTAP 2001 00:00:00 Completed [facility] HIB 4 Dose Schedule 2001 00:00:00 Completed [facility] TDAP 2001 00:00:00 Completed [facility] IPV 2001 00:00:00 Completed [facility] DTAP 2001 00:00:00 Completed [facility] HIB 4 Dose Schedule 2001 00:00:00 Completed [facility] TDAP 2001 00:00:00 Completed [facility] IPV 2001 00:00:00 Completed [facility] DTAP 2001 00:00:00 Completed [facility] TDAP 2001 00:00:00 Completed [facility] IPV 2001 00:00:00 Completed [facility] Heamophilus Influenza B 2001 00:00:00 Completed [facility] DTAP 2001 00:00:00 Completed [facility] TDAP 2001 00:00:00 Completed [facility] IPV 2001 00:00:00 Completed [facility] Heamophilus Influenza B 2001 00:00:00 Completed [facility] DTAP 2001 00:00:00 Completed [facility] HIB 4 Dose Schedule 2001 00:00:00 Completed [facility] TDAP 2001 00:00:00 Completed [facility] IPV 2001 00:00:00 Completed [facility] DTAP 2001 00:00:00 Completed [facility] TDAP 2001 00:00:00 Completed [facility] IPV 2001 00:00:00 Completed [facility] Heamophilus Influenza B 2001 00:00:00 Completed [facility] DTAP 2001 00:00:00 Completed [facility] HIB 4 Dose Schedule 2001 00:00:00 Completed [facility] TDAP 2001 00:00:00 Completed [facility] IPV 2001 00:00:00 Completed [facility] DTAP 2001 00:00:00 Completed [facility] HIB 4 Dose Schedule 2001 00:00:00 Completed [facility] TDAP 2001 00:00:00 Completed [facility] IPV 2001 00:00:00 Completed [facility] DTAP 2001 00:00:00 Completed [facility] HIB 4 Dose Schedule 2001 00:00:00 Completed [facility] TDAP 2001 00:00:00 Completed [facility] IPV 2001 00:00:00 Completed [facility] DTAP 2001 00:00:00 Completed [facility] HIB 4 Dose Schedule 2001 00:00:00 Completed [facility] TDAP 2001 00:00:00 Completed [facility] IPV 2001 00:00:00 Completed [facility] DTAP 2001 00:00:00 Completed [facility] HIB 4 Dose Schedule 2001 00:00:00 Completed [facility] TDAP 2001 00:00:00 Completed [facility] IPV 2001 00:00:00 Completed [facility] DTAP 2001 00:00:00 Completed [facility] HIB 4 Dose Schedule 2001 00:00:00 Completed [facility] TDAP 2001 00:00:00 Completed [facility] IPV 2001 00:00:00 Completed [facility] DTAP 2001 00:00:00 Completed [facility] HIB 4 Dose Schedule 2001 00:00:00 Completed [facility] TDAP 2001 00:00:00 Completed [facility] IPV 2001 00:00:00 Completed [facility] DTAP 2001 00:00:00 Completed [facility] HIB 4 Dose Schedule 2001 00:00:00 Completed [facility] TDAP 2001 00:00:00 Completed [facility] IPV 2001 00:00:00 Completed [facility] DTAP 2001 00:00:00 Completed [facility] Heamophilus Influenza B 2001 00:00:00 Completed TDAP 2001 00:00:00 Completed IPV 2001 00:00:00 Completed DTaP, Unspecified Formulation 2001 00:00:00 Completed Hep B, Adol or Pedi Dosage 2001 00:00:00 Completed [facility] Hep B, Adol or Pedi Dosage 2001 00:00:00 Completed [facility] Hep B, Adol or Pedi Dosage 2001 00:00:00 Completed [facility] Hep B, Adol or Pedi Dosage 2001 00:00:00 Completed [facility] Hep B, Adol or Pedi Dosage 2001 00:00:00 Completed [facility] Hep B, Adol or Pedi Dosage 2001 00:00:00 Completed [facility] Hep B, Adol or Pedi Dosage 2001 00:00:00 Completed [facility] Hep B, Adol or Pedi Dosage 2001 00:00:00 Completed [facility] Hep B, Adol or Pedi Dosage 2001 00:00:00 Completed [facility] Hep B, Adol or Pedi Dosage 2001 00:00:00 Completed [facility] Hep B, Adol or Pedi Dosage 2001 00:00:00 Completed [facility] Hep B, Adol or Pedi Dosage 2001 00:00:00 Completed [facility] Hep B, Adol or Pedi Dosage 2001 00:00:00 Completed [facility] Hep B, Adol or Pedi Dosage 2001 00:00:00 Completed [facility] Hep B, Adol or Pedi Dosage 2001 00:00:00 Completed Hep B, Adol or Pedi Dosage 2001 00:00:00 Completed [facility] Hep B, Adol or Pedi Dosage 2001 00:00:00 Completed [facility] Hep B, Adol or Pedi Dosage 2001 00:00:00 Completed [facility] Hep B, Adol or Pedi Dosage 2001 00:00:00 Completed [facility] Hep B, Adol or Pedi Dosage 2001 00:00:00 Completed [facility] Hep B, Adol or Pedi Dosage 2001 00:00:00 Completed [facility] Hep B, Adol or Pedi Dosage 2001 00:00:00 Completed [facility] Hep B, Adol or Pedi Dosage 2001 00:00:00 Completed [facility] Hep B, Adol or Pedi Dosage 2001 00:00:00 Completed [facility] Hep B, Adol or Pedi Dosage 2001 00:00:00 Completed [facility] Hep B, Adol or Pedi Dosage 2001 00:00:00 Completed [facility] Hep B, Adol or Pedi Dosage 2001 00:00:00 Completed [facility] Hep B, Adol or Pedi Dosage 2001 00:00:00 Completed [facility] Hep B, Adol or Pedi Dosage 2001 00:00:00 Completed [facility] Hep B, Adol or Pedi Dosage 2001 00:00:00 Completed Rho (d) Immune Globulin Unknown Completed [facility] Influenza Virus Vaccine Quad .5 mL IM 6+ MO (FLUZONE/FLULAVAL/FL UARIX) Unknown Completed [facility] TDAP (ADACEL) VACCINE Unknown Completed [facility] MMR Unknown Completed [facility] Rho (d) Immune Globulin Unknown Completed [facility] DTAP Unknown Completed [facility] HIB 4 Dose Schedule Unknown Completed [facility] HEPATITIS A Unknown Completed [facility] Hep B, Adol or Pedi Dosage Unknown Completed [facility] HPV Unknown Completed [facility] Influenza Virus Vaccine Unknown Completed [facility] Meningococcal Vaccine Unknown Completed [facility] Varicella (varivax)(chicken pox) Unknown Completed [facility] Influenza Virus Vaccine Quad IM, Preserv and ABX Free 6 MO-64 YRS (FLUCELVAX) Unknown Completed [facility] Influenza Virus Vaccine Nasal Unknown Completed [facility] IPV Unknown Completed [facility] Meningococcal Polysaccharide (groups A, C, Y and W-135) conjugate vaccine (MCV4P) Unknown Completed [place] [facility] Rho (d) Immune Globulin Unknown Completed [facility] Influenza Virus Vaccine Quad .5 mL IM 6+ MO (FLUZONE/FLULAVAL/FL UARIX) Unknown Completed [facility] TDAP (ADACEL) VACCINE Unknown Completed [facility] MMR Unknown Completed [facility] Rho (d) Immune Globulin Unknown Completed [facility] DTAP Unknown Completed [facility] HIB 4 Dose Schedule Unknown Completed [facility] HEPATITIS A Unknown Completed [facility] Hep B, Adol or Pedi Dosage Unknown Completed [facility] HPV Unknown Completed [facility] Influenza Virus Vaccine Unknown Completed [facility] Meningococcal Vaccine Unknown Completed [facility] Varicella (varivax)(chicken pox) Unknown Completed [facility] Influenza Virus Vaccine Quad IM, Preserv and ABX Free 6 MO-64 YRS (FLUCELVAX) Unknown Completed [facility] Influenza Virus Vaccine Nasal Unknown Completed [facility] IPV Unknown Completed [facility] Meningococcal Polysaccharide (groups A, C, Y and W-135) conjugate vaccine (MCV4P) Unknown Completed [facility] Rho (d) Immune Globulin Unknown Completed [facility] Influenza Virus Vaccine Quad .5 mL IM 6+ MO (FLUZONE/FLULAVAL/FL UARIX) Unknown Completed [facility] TDAP (ADACEL) VACCINE Unknown Completed [facility] MMR Unknown Completed [facility] Rho (d) Immune Globulin Unknown Completed [facility] DTAP Unknown Completed [facility] HIB 4 Dose Schedule Unknown Completed [facility] HEPATITIS A Unknown Completed [facility] Hep B, Adol or Pedi Dosage Unknown Completed [facility] HPV Unknown Completed [facility] Influenza Virus Vaccine Unknown Completed [facility] Meningococcal Vaccine Unknown Completed [facility] Varicella (varivax)(chicken pox) Unknown Completed [facility] Influenza Virus Vaccine Quad IM, Preserv and ABX Free 6 MO-64 YRS (FLUCELVAX) Unknown Completed [facility] Influenza Virus Vaccine Nasal Unknown Completed [facility] IPV Unknown Completed [facility] Meningococcal Polysaccharide (groups A, C, Y and W-135) conjugate vaccine (MCV4P) Unknown Completed [place] [facility] Rho (d) Immune Globulin Unknown Completed [facility] Influenza Virus Vaccine Quad .5 mL IM 6+ MO (FLUZONE/FLULAVAL/FL UARIX) Unknown Completed [facility] TDAP (ADACEL) VACCINE Unknown Completed [facility] MMR Unknown Completed [facility] Rho (d) Immune Globulin Unknown Completed [facility] DTAP Unknown Completed [facility] HIB 4 Dose Schedule Unknown Completed [facility] HEPATITIS A Unknown Completed [facility] Hep B, Adol or Pedi Dosage Unknown Completed [facility] HPV Unknown Completed [facility] Influenza Virus Vaccine Unknown Completed [facility] Meningococcal Vaccine Unknown Completed [facility] Varicella (varivax)(chicken pox) Unknown Completed [facility] Influenza Virus Vaccine Quad IM, Preserv and ABX Free 6 MO-64 YRS (FLUCELVAX) Unknown Completed [facility] Influenza Virus Vaccine Nasal Unknown Completed [facility] IPV Unknown Completed [facility] Meningococcal Polysaccharide (groups A, C, Y and W-135) conjugate vaccine (MCV4P) Unknown Completed [facility] Rho (d) Immune Globulin Unknown Completed [facility] Influenza Virus Vaccine Quad .5 mL IM 6+ MO (FLUZONE/FLULAVAL/FL UARIX) Unknown Completed [facility] TDAP (ADACEL) VACCINE Unknown Completed [facility] MMR Unknown Completed [facility] Rho (d) Immune Globulin Unknown Completed [facility] DTAP Unknown Completed [facility] HIB 4 Dose Schedule Unknown Completed [facility] HEPATITIS A Unknown Completed [facility] Hep B, Adol or Pedi Dosage Unknown Completed [facility] HPV Unknown Completed [facility] Influenza Virus Vaccine Unknown Completed [facility] Meningococcal Vaccine Unknown Completed [facility] Varicella (varivax)(chicken pox) Unknown Completed [facility] Influenza Virus Vaccine Quad IM, Preserv and ABX Free 6 MO-64 YRS (FLUCELVAX) Unknown Completed [facility] Influenza Virus Vaccine Nasal Unknown Completed [facility] IPV Unknown Completed [facility] Meningococcal Polysaccharide (groups A, C, Y and W-135) conjugate vaccine (MCV4P) Unknown Completed [place] [facility] Rho (d) Immune Globulin Unknown Completed [facility] Influenza Virus Vaccine Quad .5 mL IM 6+ MO (FLUZONE/FLULAVAL/FL UARIX) Unknown Completed [facility] TDAP (ADACEL) VACCINE Unknown Completed [facility] MMR Unknown Completed [facility] Rho (d) Immune Globulin Unknown Completed [facility] DTAP Unknown Completed [facility] HIB 4 Dose Schedule Unknown Completed [facility] HEPATITIS A Unknown Completed [facility] Hep B, Adol or Pedi Dosage Unknown Completed [facility] HPV Unknown Completed [facility] Influenza Virus Vaccine Unknown Completed [facility] Meningococcal Vaccine Unknown Completed [facility] Varicella (varivax)(chicken pox) Unknown Completed [facility] Influenza Virus Vaccine Quad IM, Preserv and ABX Free 6 MO-64 YRS (FLUCELVAX) Unknown Completed [facility] Influenza Virus Vaccine Nasal Unknown Completed [facility] IPV Unknown Completed [facility] Meningococcal Polysaccharide (groups A, C, Y and W-135) conjugate vaccine (MCV4P) Unknown Completed [facility] Rho (d) Immune Globulin Unknown Completed [facility] Influenza Virus Vaccine Quad .5 mL IM 6+ MO (FLUZONE/FLULAVAL/FL UARIX) Unknown Completed [facility] TDAP (ADACEL) VACCINE Unknown Completed [facility] MMR Unknown Completed [facility] Rho (d) Immune Globulin Unknown Completed [facility] DTAP Unknown Completed [facility] HIB 4 Dose Schedule Unknown Completed [facility] HEPATITIS A Unknown Completed [facility] Hep B, Adol or Pedi Dosage Unknown Completed [facility] HPV Unknown Completed [facility] Influenza Virus Vaccine Unknown Completed [facility] Meningococcal Vaccine Unknown Completed [facility] Varicella (varivax)(chicken pox) Unknown Completed [facility] Influenza Virus Vaccine Quad IM, Preserv and ABX Free 6 MO-64 YRS (FLUCELVAX) Unknown Completed [facility] Influenza Virus Vaccine Nasal Unknown Completed [facility] IPV Unknown Completed [facility] Meningococcal Polysaccharide (groups A, C, Y and W-135) conjugate vaccine (MCV4P) Unknown Completed [place] [facility] Rho (d) Immune Globulin Unknown Completed [facility] Influenza Virus Vaccine Quad .5 mL IM 6+ MO (FLUZONE/FLULAVAL/FL UARIX) Unknown Completed [facility] TDAP (ADACEL) VACCINE Unknown Completed [facility] MMR Unknown Completed [facility] Rho (d) Immune Globulin Unknown Completed [facility] DTAP Unknown Completed [facility] HIB 4 Dose Schedule Unknown Completed [facility] HEPATITIS A Unknown Completed [facility] Hep B, Adol or Pedi Dosage Unknown Completed [facility] HPV Unknown Completed [facility] Influenza Virus Vaccine Unknown Completed [facility] Meningococcal Vaccine Unknown Completed [facility] Varicella (varivax)(chicken pox) Unknown Completed [facility] Influenza Virus Vaccine Quad IM, Preserv and ABX Free 6 MO-64 YRS (FLUCELVAX) Unknown Completed [facility] Influenza Virus Vaccine Nasal Unknown Completed [facility] IPV Unknown Completed [facility] Meningococcal Polysaccharide (groups A, C, Y and W-135) conjugate vaccine (MCV4P) Unknown Completed [facility] Rho (d) Immune Globulin Unknown Completed [facility] Influenza Virus Vaccine Quad .5 mL IM 6+ MO (FLUZONE/FLULAVAL/FL UARIX) Unknown Completed [facility] TDAP (ADACEL) VACCINE Unknown Completed [facility] MMR Unknown Completed [facility] Rho (d) Immune Globulin Unknown Completed [facility] DTAP Unknown Completed [facility] HIB 4 Dose Schedule Unknown Completed [facility] HEPATITIS A Unknown Completed [facility] Hep B, Adol or Pedi Dosage Unknown Completed [facility] HPV Unknown Completed [facility] Influenza Virus Vaccine Unknown Completed [facility] Meningococcal Vaccine Unknown Completed [facility] Varicella (varivax)(chicken pox) Unknown Completed [facility] Influenza Virus Vaccine Quad IM, Preserv and ABX Free 6 MO-64 YRS (FLUCELVAX) Unknown Completed [facility] Influenza Virus Vaccine Nasal Unknown Completed [facility] IPV Unknown Completed [facility] Meningococcal Polysaccharide (groups A, C, Y and W-135) conjugate vaccine (MCV4P) Unknown Completed [facility] Rho (d) Immune Globulin Unknown Completed [facility] Meningococcal Vaccine Unknown Completed [facility] Meningococcal Polysaccharide (groups A, C, Y and W-135) conjugate vaccine (MCV4P) Unknown Completed [facility] Influenza Virus Vaccine Quad Nasal (Flumist) Unknown Completed [facility] Flu Whole Virus Unknown Completed [facility] Rho (d) Immune Globulin Unknown Completed [facility] Influenza Virus Vaccine Quad .5 mL IM 6+ MO (FLUZONE/FLULAVAL/FL UARIX) Unknown Completed [facility] TDAP (ADACEL) VACCINE Unknown Completed [facility] MMR Unknown Completed [facility] DTAP Unknown Completed [facility] HIB 4 Dose Schedule Unknown Completed [facility] HEPATITIS A Unknown Completed [facility] Hep B, Adol or Pedi Dosage Unknown Completed [facility] HPV Unknown Completed [facility] Influenza Virus Vaccine Unknown Completed [facility] Varicella (varivax)(chicken pox) Unknown Completed [facility] Influenza Virus Vaccine Quad IM, Preserv and ABX Free 6 MO-64 YRS (FLUCELVAX) Unknown Completed [facility] Influenza Virus Vaccine Nasal Unknown Completed [facility] IPV Unknown Completed [facility] Influenza, Trivalent, Adjuvanted Unknown Completed [facility] DTaP, Unspecified Formulation Unknown Completed [facility] Flu Trivalent Unknown Completed [facility] Rho (d) Immune Globulin Unknown Completed [facility] Influenza Virus Vaccine Quad .5 mL IM 6+ MO (FLUZONE/FLULAVAL/FL UARIX) Unknown Completed [facility] TDAP (ADACEL) VACCINE Unknown Completed [facility] MMR Unknown Completed [facility] Rho (d) Immune Globulin Unknown Completed [facility] DTAP Unknown Completed [facility] HIB 4 Dose Schedule Unknown Completed [facility] HEPATITIS A Unknown Completed [facility] Hep B, Adol or Pedi Dosage Unknown Completed [facility] HPV Unknown Completed [facility] Influenza Virus Vaccine Unknown Completed [facility] Meningococcal Vaccine Unknown Completed [facility] Varicella (varivax)(chicken pox) Unknown Completed [facility] Influenza Virus Vaccine Quad IM, Preserv and ABX Free 6 MO-64 YRS (FLUCELVAX) Unknown Completed [facility] Influenza Virus Vaccine Nasal Unknown Completed [facility] IPV Unknown Completed [facility] Meningococcal Polysaccharide (groups A, C, Y and W-135) conjugate vaccine (MCV4P) Unknown Completed [facility] Influenza, Trivalent, Adjuvanted Unknown Completed [facility] DTaP, Unspecified Formulation Unknown Completed [facility] Influenza Virus Vaccine Quad Nasal (Flumist) Unknown Completed [facility] Flu Trivalent Unknown Completed [facility] Flu Whole Virus Unknown Completed [facility] Rho (d) Immune Globulin Unknown Completed [facility] Influenza Virus Vaccine Quad .5 mL IM 6+ MO (FLUZONE/FLULAVAL/FL UARIX) Unknown Completed [facility] TDAP (ADACEL) VACCINE Unknown Completed [facility] MMR Unknown Completed [facility] Rho (d) Immune Globulin Unknown Completed [facility] DTAP Unknown Completed [facility] HIB 4 Dose Schedule Unknown Completed [facility] HEPATITIS A Unknown Completed [facility] Hep B, Adol or Pedi Dosage Unknown Completed [facility] HPV Unknown Completed [facility] Influenza Virus Vaccine Unknown Completed [facility] Meningococcal Vaccine Unknown Completed [facility] Varicella (varivax)(chicken pox) Unknown Completed [facility] Influenza Virus Vaccine Quad IM, Preserv and ABX Free 6 MO-64 YRS (FLUCELVAX) Unknown Completed [facility] Influenza Virus Vaccine Nasal Unknown Completed [facility] IPV Unknown Completed [facility] Meningococcal Polysaccharide (groups A, C, Y and W-135) conjugate vaccine (MCV4P) Unknown Completed [facility] Influenza, Trivalent, Adjuvanted Unknown Completed [facility] DTaP, Unspecified Formulation Unknown Completed [facility] Influenza Virus Vaccine Quad Nasal (Flumist) Unknown Completed [facility] Flu Trivalent Unknown Completed [facility] Flu Whole Virus Unknown Completed [facility] Rho (d) Immune Globulin Unknown Completed [facility] Influenza Virus Vaccine Quad .5 mL IM 6+ MO (FLUZONE/FLULAVAL/FL UARIX) Unknown Completed [facility] TDAP (ADACEL) VACCINE Unknown Completed [facility] MMR Unknown Completed [facility] Rho (d) Immune Globulin Unknown Completed [facility] DTAP Unknown Completed [facility] HIB 4 Dose Schedule Unknown Completed [facility] HEPATITIS A Unknown Completed [facility] Hep B, Adol or Pedi Dosage Unknown Completed [facility] HPV Unknown Completed [facility] Influenza Virus Vaccine Unknown Completed [facility] Meningococcal Vaccine Unknown Completed [facility] Varicella (varivax)(chicken pox) Unknown Completed [facility] Influenza Virus Vaccine Quad IM, Preserv and ABX Free 6 MO-64 YRS (FLUCELVAX) Unknown Completed [facility] Influenza Virus Vaccine Nasal Unknown Completed [facility] IPV Unknown Completed [facility] Meningococcal Polysaccharide (groups A, C, Y and W-135) conjugate vaccine (MCV4P) Unknown Completed [facility] Influenza, Trivalent, Adjuvanted Unknown Completed [facility] DTaP, Unspecified Formulation Unknown Completed [facility] Influenza Virus Vaccine Quad Nasal (Flumist) Unknown Completed [facility]alent [facility] Rho (d) Immune Globulin Unknown Completed [facility] Influenza Virus Vaccine Quad .5 mL IM 6+ MO (FLUZONE/FLULAVAL/FL UARIX) Unknown Completed [facility] TDAP (ADACEL) VACCINE Unknown Completed [facility] MMR Unknown Completed [facility] Rho (d) Immune Globulin Unknown Completed [facility] DTAP Unknown Completed [facility] HIB 4 Dose Schedule Unknown Completed [facility] HEPATITIS A Unknown Completed [facility] Hep B, Adol or Pedi Dosage Unknown Completed [facility] HPV Unknown Completed [facility] Influenza Virus Vaccine Unknown Completed [facility] Meningococcal Vaccine Unknown Completed [facility] Varicella (varivax)(chicken pox) Unknown Completed [facility] Influenza Virus Vaccine Quad IM, Preserv and ABX Free 6 MO-64 YRS (FLUCELVAX) Unknown Completed [facility] Influenza Virus Vaccine Nasal Unknown Completed [facility] IPV Unknown Completed [facility] Meningococcal Polysaccharide (groups A, C, Y and W-135) conjugate vaccine (MCV4P) Unknown Completed [facility] Influenza, Trivalent, Adjuvanted Unknown Completed [facility] DTaP, Unspecified Formulation Unknown Completed [facility] Influenza Virus Vaccine Quad Nasal (Flumist) Unknown Completed [facility] Flu Trivalent Unknown Completed [facility] Flu Whole Virus Unknown Completed [facility] Rho (d) Immune Globulin Unknown Completed [facility] Influenza Virus Vaccine Quad .5 mL IM 6+ MO (FLUZONE/FLULAVAL/FL UARIX) Unknown Completed [facility] TDAP (ADACEL) VACCINE Unknown Completed [facility] MMR Unknown Completed [facility] Rho (d) Immune Globulin Unknown Completed [facility] DTAP Unknown Completed [facility] Heamophilus Influenza B Unknown Completed [facility] HEPATITIS A Unknown Completed [facility] Hep B, Adol or Pedi Dosage Unknown Completed [facility] HPV Unknown Completed [facility] Influenza Virus Vaccine Unknown Completed [facility] Meningococcal Vaccine Unknown Completed [facility] Varicella (varivax)(chicken pox) Unknown Completed [facility] Influenza Virus Vaccine Quad IM, Preserv and ABX Free 6 MO-64 YRS (FLUCELVAX) Unknown Completed [facility] Influenza Virus Vaccine Nasal Unknown Completed [facility] IPV Unknown Completed [facility] Meningococcal Polysaccharide (groups A, C, Y and W-135) conjugate vaccine (MCV4P) Unknown Completed [facility] Influenza, Trivalent, Adjuvanted Unknown Completed [facility] DTaP, Unspecified Formulation Unknown Completed [facility] Influenza Virus Vaccine Quad Nasal (Flumist) Unknown Completed [facility] Flu Trivalent Unknown Completed [facility] Flu Whole Virus Unknown Completed [facility] Rho (d) Immune Globulin Unknown Completed [facility] Influenza Virus Vaccine Quad .5 mL IM 6+ MO (FLUZONE/FLULAVAL/FL UARIX) Unknown Completed [facility] TDAP Unknown Completed [facility] MMR Unknown Completed [facility] Rho (d) Immune Globulin Unknown Completed [facility] DTAP Unknown Completed [facility] Heamophilus Influenza B Unknown Completed [facility] HEPATITIS A Unknown Completed [facility] Hep B, Adol or Pedi Dosage Unknown Completed [facility] HPV Unknown Completed [facility] Influenza Virus Vaccine Unknown Completed [facility] Meningococcal Vaccine Unknown Completed [facility] Varicella (varivax)(chicken pox) Unknown Completed [facility] Influenza Virus Vaccine Quad IM, Preserv and ABX Free 6 MO-64 YRS (FLUCELVAX) Unknown Completed [facility] Influenza Virus Vaccine Nasal Unknown Completed [facility] IPV Unknown Completed [facility] Meningococcal Polysaccharide (groups A, C, Y and W-135) conjugate vaccine (MCV4P) Unknown Completed [facility] Influenza, adjuvanted, trivalent, PF (FLUAD) Unknown Completed [facility] DTaP, Unspecified Formulation Unknown Completed [facility] Influenza Virus Vaccine Quad Nasal (Flumist) Unknown Completed [facility] Influenza, split virus, trivalent, PF (AFLURIA/FLUARIX/FLU LAVAL/FLUZONE) Unknown Completed [facility] Flu Whole Virus Unknown Completed [facility] Vital Signs Vital Name Observation Time Observation Value Comments S ource Systolic blood pressure 2024-10-22 14:36:00 104 mm[Hg] [facility] Diastolic blood pressure 2024-10-22 14:36:00 71 mm[Hg] [facility] Heart rate 2024-10-22 14:36:00 88 /min [facility] Body temperature 2024-10-22 14:36:00 36.5 Melania [facility] Respiratory rate 2024-10-22 14:36:00 18 /min [facility] Body height 2024-10-22 14:36:00 157.5 cm [facility] Body weight 2024-10-22 14:36:00 60.782 kg [facility] BMI 2024-10-22 14:36:00 24.51 kg/m2 [facility] Systolic blood pressure 2024-10-19 16:57:00 114 mm[Hg] [facility] Diastolic blood pressure 2024-10-19 16:57:00 80 mm[Hg] [facility] Heart rate 2024-10-19 16:57:00 91 /min [facility] Body temperature 2024-10-19 16:57:00 36.61 Melania [facility] Body height 2024-10-19 16:57:00 [facility] Body weight 2024-10-19 16:57:00 [facility]236 [facility] BMI 2024-10-19 16:57:00 24.69 kg[facility]m2 [facility] Systolic blood pressure 2024-08-02 13:23:00 111 mm[Hg] [facility] Diastolic blood pressure 2024-08-02 13:23:00 76 mm[Hg] [facility] Heart rate 2024-08-02 13:23:00 93 /min [facility] Body temperature 2024-08-02 13:23:00 36.83 Melania [facility] Respiratory rate 2024-08-02 13:23:00 18 /min [facility] Body height 2024-08-02 13:23:00 157.5 cm [facility] Body weight 2024-08-02 13:23:00 59.603 [facility] BMI 2024-08-02 13:23:00 24.03 kg[facility]m2 [facility] Diastolic blood pressure 2024-07-28 13:10:00 80 mm[Hg] [place] [facility] Heart rate 2024-07-28 13:10:00 110 /min [facility] 2024-07-28 13:10:00 18 /min [facility] Body height 2024-07-28 13:10:00 157.5 cm [facility] Body weight 2024-07-28 13:10:00 59.875 kg [facility] BMI 2024-07-28 13:10:00 24.14 kg/m2 [facility] Systolic blood pressure 2024-07-28 13:10:00 119 mm[Hg] [facility] Systolic blood pressure 2024-04-30 14:20:00 102 mm[Hg] [facility] Diastolic blood pressure 2024-04-30 14:20:00 72 mm[Hg] [facility] Heart rate 2024-04-30 14:20:00 94 /min [facility] Respiratory rate 2024-04-30 14:20:00 18 /min [facility] Body height 2024-04-30 14:20:00 157.5 cm [facility] Body weight 2024-04-30 14:20:00 59.421 kg [facility] BMI 2024-04-30 14:20:00 23.96 kg/m2 [facility] Systolic blood pressure 2024-04-14 20:00:00 115 mm[Hg] [facility] Diastolic blood pressure 2024-04-14 20:00:00 86 mm[Hg] [facility] Heart rate 2024-04-14 20:00:00 100 /min [facility] Body temperature 2024-04-14 20:00:00 36.72 Melania [facility] Respiratory rate 2024-04-14 20:00:00 14 /min [facility] Body height 2024-04-14 20:00:00 157.5 cm [facility] Body weight 2024-04-14 20:00:00 58.968 kg [facility] BMI 2024-04-14 20:00:00 23.78 kg/m2 [facility] Oxygen saturation in Arterial blood by Pulse oximetry 2024-04-14 20:00:00 100 /min [facility] Systolic blood pressure 2024-04-11 19:00:00 123 mm[Hg] [facility] Diastolic blood pressure 2024-04-11 19:00:00 77 mm[Hg] [facility] Heart rate 2024-04-11 19:00:00 88 /min [facility] Body temperature 2024-04-11 19:00:00 37.22 Melania [facility] Respiratory rate 2024-04-11 19:00:00 18 /min [facility] Oxygen saturation in Arterial blood by Pulse oximetry 2024-04-11 19:00:00 99 /min [facility] Body height 2024-04-11 17:36:00 157.5 cm [facility] Body weight 2024-04-11 17:36:00 58.968 kg [facility] BMI 2024-04-11 17:36:00 23.78 kg/m2 [facility] Systolic blood pressure 2024-02-06 13:57:00 115 mm[Hg] [facility] Diastolic blood pressure 2024-02-06 13:57:00 77 mm[Hg] [facility] Heart rate 2024-02-06 13:57:00 115 /min [facility] Body temperature 2024-02-06 13:57:00 36.72 Melania [facility] Respiratory rate 2024-02-06 13:57:00 16 /min [facility] Body height 2024-02-06 13:57:[address] [facility] Body weight 2024-02-06 13:57:00 60.782 kg [facility] BMI 2024-02-06 13:57:00 24.51 kg/m2 [facility] Systolic blood pressure 2023-11-13 19:04:00 124 mm[Hg] [facility] Diastolic blood pressure 2023-11-13 19:04:00 73 mm[Hg] [facility] Heart rate 2023-11-13 19:04:00 94 /min [facility] Body temperature 2023-11-13 19:04:00 36.78 Melania [facility] Respiratory rate 2023-11-13 19:04:00 18 /min [facility] Body height 2023-11-13 19:04:[address] [facility] Body weight 2023-11-13 19:04:[address] [facility] BMI 2023-11-13 19:04:00 23.66 kg/m2 [facility] Systolic blood pressure 2023-10-14 18:30:00 96 mm[Hg] [facility] Diastolic blood pressure 2023-10-14 18:30:00 66 mm[Hg] [facility] Heart rate 2023-10-14 18:30:00 86 /min [facility] Res[facility] 2023-10-14 18:30:00 18 /min [facility] Oxygen saturation in Arterial blood by Pulse oximetry 2023-10-14 18:30:00 99 /min [facility] Body temperature 2023-10-14 13:13:00 36.72 Melania [facility] Body height 2023-10-13 23:46:[address] [facility] Body weight 2023-10-13 23:46:00 55.792 kg [facility] BMI 2023-10-13 23:46:00 23.24 kg/m2 [facility] Systolic blood pressure 2023-10-11 00:55:00 116 mm[Hg] [facility] Diastolic blood pressure 2023-10-11 00:55:00 79 mm[Hg] [facility] Heart rate 2023-10-11 00:55:00 95 /min [facility] Respiratory rate 2023-10-11 00:55:00 16 /min [facility] Oxygen saturation in Arterial blood by Pulse oximetry 2023-10-11 00:55:00 99 /min [facility] Body temperature 2023-10-11 00:25:00 36.33 Melania [facility] Body height 2023-10-10 19:58:[address] [facility] Body weight 2023-10-10 19:58:[address] [facility] BMI 2023-10-10 19:58:00 23.24 kg/m2 [facility] Systolic blood pressure 2023-10-10 19:58:00 107 mm[Hg] [facility] Diastolic blood pressure 2023-10-10 19:58:00 68 mm[Hg] [facility] Heart rate 2023-10-10 19:58:00 97 /min [facility] Body temperature 2023-10-10 19:58:00 36.94 Melania [facility] Respiratory rate 2023-10-10 19:58:00 18 /min [facility] Body height 2023-10-10 19:58:[address] [facility] Body weight 2023-10-10 19:58:[address] [facility] BMI 2023-10-10 19:58:00 23.24 kg/m2 [facility] Oxygen saturation in Arterial blood by Pulse oximetry 2023-10-10 19:58:00 98 /min [facility] Systolic blood pressure 2023-10-08 14:20:00 97 mm[Hg] [facility] Diastolic blood pressure 2023-10-08 14:20:00 61 mm[Hg] [facility] Heart rate 2023-10-08 14:20:00 97 /min [facility] Body temperature 2023-10-08 14:20:00 37 Melania [facility] Respiratory rate 2023-10-08 14:20:00 16 /min [facility] Body height 2023-10-08 14:20:[address] [facility] Body weight 2023-10-08 14:20:00 56.427 kg [facility] BMI 2023-10-08 14:20:00 23.51 kg/m2 [facility] Oxygen saturation in Arterial blood by Pulse oximetry 2023-10-08 14:20:00 97 /min [facility] Systolic blood pressure 2023 06:04:00 103 mm[Hg] [facility] Diastolic blood pressure 2023 06:04:00 65 mm[Hg] [facility] Heart rate 2023 06:04:00 95 /min [facility] Respiratory rate 2023 06:04:00 16 /min [facility] Oxygen saturation in Arterial blood by Pulse oximetry 2023 06:04:00 99 /min [facility] Body temperature 2023 03:34:00 36.67 Melania [facility] Body weight 2023 03:34:[address] [facility] BMI 2023 03:34:00 23.78 kg/m2 [facility] Systolic blood pressure 2023-08-15 13:02:00 105 mm[Hg] [facility] Diastolic blood pressure 2023-08-15 13:02:00 71 mm[Hg] [facility] Heart rate 2023-08-15 13:02:00 76 /min [facility] Respiratory rate 2023-08-15 13:02:00 18 /min [facility] Body height 2023-08-15 13:02:[address] [facility] Body weight 2023-08-15 13:02:[address] [facility] BMI 2023-08-15 13:02:00 23.23 kg/m2 [facility] Systolic blood pressure 2023-05-14 20:46:00 108 mm[Hg] [facility] Diastolic blood pressure 2023-05-14 20:46:00 75 mm[Hg] [facility] Heart rate 2023-05-14 20:46:00 102 /min [facility] Body temperature 2023-05-14 20:46:00 36.78 Melania [facility] Respiratory rate 2023-05-14 20:46:00 18 /min [facility] Body height 2023-05-14 20:46:[address] [facility] Body weight 2023-05-14 20:46:[address] [facility] BMI 2023-05-14 20:46:00 24.33 kg/m2 [facility] Systolic blood pressure 2023-02-18 20:19:00 111 mm[Hg] [facility] Diastolic blood pressure 2023-02-18 20:19:00 76 mm[Hg] [facility] Heart rate 2023-02-18 20:19:00 112 /min [facility] Body temperature 2023-02-18 20:19:00 36.78 Melania [facility] Respiratory rate 2023-02-18 20:19:00 18 /min [facility] Body height 2023-02-18 20:19:[address] [facility] Body weight 2023-02-18 20:19:[address] [facility] BMI 2023-02-18 20:19:00 24.25 kg/m2 [facility] Systolic blood pressure 2022-11-18 20:53:00 100 mm[Hg] [facility] Diastolic blood pressure 2022-11-18 20:53:00 70 mm[Hg] [facility] Heart rate 2022-11-18 20:53:00 97 /min [facility] Body temperature 2022-11-18 20:53:00 37.06 Melania [facility] Respiratory rate 2022-11-18 20:53:00 18 /min [facility] Body height 2022-11-18 20:53:[address] [facility] Body weight 2022-11-18 20:53:[address] [facility] BMI 2022-11-18 20:53:00 23.96 kg/m2 [facility] Systolic blood pressure 2022-08-26 20:11:00 113 mm[Hg] [facility] Diastolic blood pressure 2022-08-26 20:11:00 80 mm[Hg] [facility] Heart rate 2022-08-26 20:11:00 91 /min [facility] Body temperature 2022-08-26 20:11:00 36.72 Melania [facility] Respiratory rate 2022-08-26 20:11:00 16 /min [facility] Body height 2022-08-26 20:11:00 157.5 cm [facility] Body weight 2022-08-26 20:11:00 57.879 kg [facility] BMI 2022-08-26 20:11:00 23.34 kg/m2 [facility] Systolic blood pressure 2022-07-03 20:26:00 108 mm[Hg] [facility] Diastolic blood pressure 2022-07-03 20:26:00 76 mm[Hg] [facility] Heart rate 2022-07-03 20:26:00 103 /min [facility] Body temperature 2022-07-03 20:25:00 36.89 Melania [facility] Respiratory rate 2022-07-03 20:25:00 16 /min [facility] Body height 2022-07-03 20:25:00 157.5 cm [facility] Body weight 2022-07-03 20:25:00 58.968 kg [facility] BMI 2022-07-03 20:25:00 23.78 kg/m2 [facility] Oxygen saturation in Arterial blood by Pulse oximetry 2022-07-03 20:25:00 98 /min [facility] Height 2020-12-01 10:53:00 154.94 CM Weight 2020-12-01 10:53:00 50.8 KG Procedures Procedure Date / Time Performed Performing Clinician Source RAPID STREP SCREEN FOR GROUP A 2024-04-11 17:46:00 Fide Freitas [facility] POCT TEST 2024-04-11 17:46:00 Fide Freitas [facility] INFLUENZA A/B RSV COVID NAAT 2024-04-11 17:46:00 Fide Freitas [facility] LAB ONLY PAP SMEAR-LIQUID BASED 2023-11-13 19:45:00 Zarina Kennedy [facility] PAP SMEAR-LIQUID BASED-CP 2023-11-13 19:45:00 Catie Kennedy [facility] HEPATITIS B SURFACE ANTIGEN 2023-11-13 19:34:00 Zarina Kennedy Marcus [facility] HCV ANTIBODY 2023-11-13 19:34:00 KennedyZarina [facility] HIV 1/2 AG-AB WITH REFLEX 2023-11-13 19:34:00 Catie Kennedy [facility] FLU VACC ([id number]), 6 MO-64 YRS, .5ML, IM, QUAD (FLUCELVAX) 2023-11-13 19:17:34 KennedyZarina [facility] GC & CHLAMYDIA AMPLIFIED ASSAY 2023-11-13 19:16:00 BrentZarina [facility] TRICHOMONAS AMPLIFIED ASSAY 2023-11-13 19:16:00 BrentZarina [facility] EXTERNAL PROVIDER RECORDS 2023-10-24 06:01:00 Do ctor Unassigned, [place] [facility] BASIC METABOLIC PANEL (NA, K, CL, CO2, GLUCOSE, BUN, CREATININE, CA) 2023-10-14 10:38:00 Justyn [facility] CBC WITH DIFF 2023-10-14 10:38:00 Mallorie Alejandra [facility] TEST, URINE 2023-10-14 01:42:00 Elliott Priest [facility] URINALYSIS 2023-10-14 01:42:00 Elliott Priest U [facility] BASIC METABOLIC PANEL (NA, K, CL, CO2, GLUCOSE, BUN, CREATININE, CA) 2023-10-14 01:41:00 Elliott Priest [facility] CBC WITH DIFF 2023-10-14 01:41:00 Elliott Priest [facility] FL TIME OR (NON-REPORTABLE) 2023-10-11 00:20:00 Justyn [facility] [place] TIME OR (NON-REPORTABLE) 2023-10-11 00:20:00 Justyn [facility] URETEROSCOPIC STONE MANIPULATION 2023-10-10 23:21:00 Justyn [facility] DAY SURGERY - VICTORY LAKES 2023-10-10 06:01:00 Doctor Unassigned, [place] [facility] US RETROPERITONEAL LIMITED 2023 05:54:30 AriannaKing Nikkoe [facility] POCT TEST 2023 04:05:00 Job Keyes [facility] COMP. METABOLIC PANEL (48497) 2023 04:02:00 Iris Keyes [facility] CBC WITH DIFF 2023 04:02:00 [facility] 04:02[facility]00 [facility] FOR [facility]AG[facility] AND TREATMENT 2023 03:26:20 Doctor Unassigned, [place] [facility] REFERRAL- REQUEST/RESPONSE 2023-06-03 05:01:00 D sangeethaor Unassigned, [place] [facility] PATIENT FINANCIAL POLICY 2023-02-18 19:57:32 Doctor Unassigned, [place] [facility] ASSIGNMENT OF BENEFITS 2022-11-18 20:21:23 Docto r Unassigned, [place] [facility] Encounters Start Date/Time End Date/Time Encounter Type Admission Type Attending Clinicians Care Facility Care Department Encounter ID Source 2021-09-11 07:20:36 Emergency [facility] [id number] [facility] 2021-09-11 07:18:00 Emergency [facility] [id number] [facility] 2021-09-11 05:25:53 Emergency [facility] [id number] [facility] 2021-09-10 12:34:55 Emergency [facility] [id number] [facility] 2021-09-10 00:32:19 Outpatient X [facility] ERT [id number] [facility] 2021-09-10 00:25:14 Emergency [facility] [id number] [facility] 2021-09-09 03:49:13 Emergency [facility] [id number] [facility] 2021-09-07 12:08:59 Emergency [facility] [id number] [facility] 2021-09-06 14:24:34 Outpatient P [facility] JONI [id number] [facility] 2021-09-06 14:21:12 Outpatient P [facility] JONI [id number] [facility] 2021-09-06 13:39:14 Outpatient P [facility] JONI [id number] [facility] 2021-09-06 13:35:43 Outpatient P [facility] JONI [id number] [facility] 2025-04-19 10:30:00 2025-04-19 10:30:[address] [facility] [id number] [facility] 2024-10-22 09:00:00 2024-10-22 16:07:47 Outpatient ZARINA DERAS VIEN [facility] [id number] [facility] 2024-10-22 09:00:00 2024-10-22 16:07:47 Nurse Visit Nurse, [facility] Zarina Kennedy Nurse, [facility] 1.2.840.114 350.1.13.10 4.2.7.2.686 [id number] [facility] 2024-10-22 09:00:00 2024-10-22 09:00:00 Outpatient GERMAN RUELAS [facility] [id number] [facility] 2024-10-19 10:20:00 2024-10-19 10:40:00 [facility] [address] [facility] 1.2.840.114 350.1.13.58 9.2.7.2.686 [id number] [facility] 2024-10-19 10:20:00 2024-10-19 10:20:[address] [facility] [id number] [facility] 2024-10-05 08:17:19 2024-10-05 08:17:19 Outpatient JOSE ANTONIO BRADY [id number] Dirk Milan 2024-08-31 11:00:00 2024-08-31 11:00:00 Outpatient GERMAN RUELAS [facility] [id number] [facility] 2024-08-31 09:00:00 2024-08-31 09:00:00 Outpatient GERMAN RUELAS [facility] [id number] [facility] 2024-08-31 08:01:36 2024-08-31 08:01:36 Outpatient [facility] [id number] Dirk Milan 2024-08-27 11:30:00 2024-08-27 11:30:00 Outpatient R GERMAN EISENBERG [facility] [id number] [facility] 2024-07-19 00:00:00 2024-08-21 18:21:39 Patient Secure Msg Doctor Unassigned, [place] Doctor Unassigned, [place] [facility] 1.2.840.114 350.1.13.10 4.2.7.2.686 [id number] [facility] 2024-08-02 08:00:00 2024-08-02 09:37:39 Office Visit Alcira De La Paz [address] 1.2.840.114 350.1.13.58 9.2.7.2.686 [id number] [facility] 2024-07-28 08:00:00 2024-07-28 08:18:17 Outpatient ZARINA DERAS VIEN [facility] [id number] [facility] 2024-07-28 08:00:00 2024-07-28 08:18:17 Nurse Visit Nurse, [facility] Zarina Kennedy Nurse, [facility] 1.2.840.114 350.1.13.10 4.2.7.2.686 [id number] [facility] 2024-07-27 14:00:00 2024-07-27 14:00:00 Outpatient R NASSAR-MARSHAL S, HINA NASSAR-MARSHAL S, HINA [facility] [id number] [facility] 2024-07-23 15:30:00 2024-07-23 15:30:00 Outpatient R [facility] [id number] [facility] 2024-06-01 13:00:00 2024-06-01 13:00:[address] [facility] [id number] [facility] 2024-05-06 15:16:45 2024-05-06 15:16:45 Outpatient [facility] [id number] Dirk Milan 2024-04-30 09:00:00 2024-04-30 09:20:31 Outpatient R ZARINA KENNEDY [facility] [id number] [facility] 2024-04-30 09:00:00 2024-04-30 09:20:31 Nurse Visit Nurse, [facility] Zarina Kennedy [facility] 1..840.114 350.1.13.10 4.2.7.2.686 [id number] [facility] 2024-04-14 18:15:00 2024-04-15 14:23:00 Inpatient E MICHELE BAUTISTA [facility] [id number] [facility] 2024-04-14 15:01:00 2024-04-14 16:04:00 Emergency X VIVIANA DOWNEY [facility] ERT [id number] [facility] 2024-04-14 15:01:00 2024-04-14 16:04:00 Emergency Viviana Downey [facility] 1..840.114 350.1.13.10 4.2.7.2.686 [id number] [facility] 2024-04-11 12:37:00 2024-04-11 14:17:00 Emergency X FIDE FREITAS [facility] ERT [id number] [facility] 2024-04-11 12:37:00 2024-04-11 14:17:00 Emergency Fide Freitas [facility] 1.2.840.114 350.1.13.10 4.2.7.2.686 [id number] [facility] 2024-03-18 11:50:22 2024-03-18 11:50:22 Outpatient [facility] [id number] Dirk F Bjorn 2024-03-09 11:23:14 2024-03-09 11:23:14 Outpatient [facility] [id number] Dirk Krishan [place] 2024-03-05 13:41:30 2024-03-05 13:41:30 Outpatient [facility] [id number] Dirk F Bjorn 2024-02-17 13:31:42 2024-02-17 13:31:42 Outpatient [facility] [id number] Dirk Krishan Bjorn 2024-02-10 13:54:58 2024-02-10 13:54:58 Outpatient [facility] [id number] Dirk Nickerson Bjorn 2024-02-06 10:35:33 2024-02-06 10:35:33 Outpatient [facility] [id number] Dirk Nickerson Bjorn 2024-02-06 10:30:00 2024-02-06 10:30:00 Outpatient R [facility] [id number] [facility] 2024-02-06 09:00:00 2024-02-06 09:00:00 Nurse Visit Nurse, [facility] Zarina Kennedy [facility] .2.840.114 350.1.13.10 4.2.7.2.686 [id number] [facility] 2024-02-06 09:00:00 2024-02-06 08:58:15 Outpatient R ZARINA KENNEDY [facility] [id number] [facility] 2024-02-03 13:57:01 2024-02-03 13:57:01 Outpatient [facility] [id number] Dirk Nickerson [place] 2024-01-01 08:17:49 2024-01-01 08:17:49 Outpatient [facility] [id number] Dirk Nickerson [place] 2023-12-31 16:57:01 2023-12-31 16:57:01 Outpatient [facility] [id number] Dirk Nickerson Bjorn 2023-12-25 11:58:12 2023-12-25 11:58:12 Outpatient [facility] [id number] Dirk Nickerson [place] 2023-11-13 13:45:00 2023-11-13 14:09:01 Qi Specialist Visit 2, [facility] Zarina Kennedy [facility] 1..840.114 350.1.13.10 4.2.7.2.686 [id number] [facility] 2023-11-13 13:15:00 2023-11-13 13:26:31 Outpatient R [facility] [id number] [facility] 2023-11-13 13:15:00 2023-11-13 13:26:31 Office Visit Zarina Kennedy [facility] 1.2.840.114 350.1.13.10 4.2.7.2.686 [id number] [facility] 2023-10-24 00:00:00 2023-10-24 00:00:00 Orders Only Doctor Unassigned, [place] [facility] 1.840.114 350.1.13.10 4.2.7.2.686 [id number] [facility] 2023-10-13 17:48:00 2023-10-14 16:08:00 Outpatient X MARCO A LARSON [facility] [id number] [facility] 2023-10-13 17:48:00 2023-10-14 16:08:00 Emergency Mallorie Alejandra, Marco A Longo [facility] 1.2840.114 350.1.13.10 4.2.7.2.686 [id number] [facility] 2023-10-13 00:00:00 2023-10-13 00:00:00 Telephone Mallorie Alejandra [facility] 1.2.840.114 350.1.13.10 4.2.7.2.686 [id number] [facility] 2023-10-10 13:39:00 2023-10-10 19:08:00 Outpatient R JUSTYN [facility] [id number] [facility] 2023-10-10 13:39:00 2023-10-10 19:08:00 Hospital Encounter Justyn [facility] ([facility]) 1.2.840.114 350.1.13.10 4.2.7.2.686 [id number] [facility] 2023-10-10 15:01:00 2023-10-10 16:22:00 Surgery Justyn [facility] 1.2.840.114 350.1.13.10 4.2.7.2.686 [id number] [facility] 2023-10-10 00:00:00 2023-10-10 00:00:00 Orders Only Doctor Unassigned, [place] [facility] 1.2.840.114 350.1.13.10 4.2.7.2.686 [id number] [facility] 2023-10-09 09:26:26 2023-10-09 09:26:26 Outpatient JOSE ANTONIO BRADY [id number] Dirk Milan 2023-10-08 08:30:00 2023-10-08 15:45:08 Outpatient AILIN BENTON [facility] [id number] [facility] 2023-10-08 08:30:00 2023-10-08 15:45:08 Office Visit Ailin Tang [facility] 1.2.840.114 350.1.13.10 4.2.7.2.686 [id number] [facility] 2023-10-05 21:35:00 2023 01:06:00 Emergency X DEEPAK, DAVY [facility], DAVY [facility] ERT [id number] [facility] 2023-10-05 21:35:00 2023 01:06:00 Emergency Asan Elias, Iris Sarahcu, [facility] 1..840.114 350.1.13.10 4.2.7.2.686 [id number] [facility] 2023-10-04 14:17:02 2023-10-04 14:17:02 Outpatient [facility] [id number] Dirk Nickerson Bjorn 2023-09-17 16:48:16 2023-09-17 16:48:16 Outpatient [facility] [id number] Dirk Nickerson Bjorn 2023-09-11 09:11:57 2023-09-11 09:11:57 Outpatient [facility] [id number] Dirk Nickerson Bjorn 2023-08-26 15:44:47 2023-08-26 15:44:47 Outpatient [facility] [id number] Dirk Milan 2023-08-15 08:00:00 2023-08-15 08:15:00 Nurse Visit Nurse, [facility] Zarina Kennedy [facility] 1.2.840.114 350.1.13.10 4.2.7.2.686 [id number] [facility] 2023-08-15 08:00:00 2023-08-15 08:00:00 Outpatient ZARINA DERAS [facility] [id number] [facility] 2023-08-14 08:15:00 2023-08-14 08:15:00 Outpatient BRIT HOGAN [facility] [id number] [facility] 2023-07-31 09:30:00 2023-07-31 09:30:00 Outpatient IDA ARREOLA [facility] [id number] [facility] 2023-06-26 14:44:34 2023-06-26 14:44:34 Outpatient [facility] [id number] Dirk Milan 2023-06-11 10:54:47 2023-06-11 10:54:47 Outpatient [facility] [id number] Dirk Milan 2023-06-03 00:00:00 2023-06-03 00:00:00 Orders Only Doctor Unassigned, [place] [facility] 1.2.840.114 350.1.13.10 4.2.7.2.686 [id number] [facility] 2023-05-21 09:11:27 2023-05-21 09:11:27 Outpatient [facility] 12 Dirk Milan 2023-05-14 15:30:00 2023-05-14 15:45:47 Nurse Visit Nurse, [facility] Norma Partida [facility] 1.2.840.114 350.1.13.10 4.2.7.2.686 [id number] [facility] 2023-05-14 15:30:00 2023-05-14 15:30:00 Outpatient NORMA RODRIGUEZ [facility] [id number] [facility] 2023-04-30 14:56:01 2023-04-30 14:56:01 Outpatient [facility] [id number] Dirk Milan 2023-04-21 16:15:00 2023-04-21 16:15:00 Outpatient HINA LAUGHLIN MARISOL [facility] [id number] [facility] 2023-03-21 14:00:00 2023-03-21 14:00:00 Outpatient WENDY WALDROP [facility] [id number] [facility] 2023-03-18 15:33:41 2023-03-18 15:33:41 Outpatient [facility] [id number] Dirk Milan 2023-02-28 00:00:00 2023-02-28 00:00:00 [facility]phone [facility] 1.2.840.114 350.1.13.10 4.2.7.2.686 [id number] [facility] 2023-02-18 15:30:00 2023-02-18 15:30:00 Nurse Visit Nurse, [facility] Nicole Wendy [facility] 1.2.840.114 350.1.13.10 4.2.7.2.686 [id number] [facility] 2023-02-18 15:30:00 2023-02-18 15:15:55 Outpatient R NICOLE WENDY [facility] [id number] [facility] 2023-02-18 00:00:00 2023-02-18 00:00:00 Orders Only Doctor Unassigned, [place] [facility] 1.2.840.114 350.1.13.10 4.2.7.2.686 [id number] [facility] 2023-02-12 15:57:07 2023-02-12 15:57:07 Outpatient [facility] [id number] Dirk Milan 2022-12-31 14:30:00 2022-12-31 14:30:00 Outpatient R ZARINA KENNEDY [facility] [id number] [facility] 2022-12-28 00:00:00 2022-12-28 00:00:00 Telephone Zarina Kennedy [facility] 1.2.840.114 350.1.13.10 4.2.7.2.686 [id number] [facility] 2022-12-23 00:00:00 2022-12-23 00:00:00 Telephone KennedyZarina [facility] 1.2.840.114 350.1.13.10 4.2.7.2.686 [id number] [facility] 2022-12-20 15:45:35 2022-12-20 15:45:35 Outpatient [facility] [id number] Dirk Milan 2022-12-05 08:00:00 2022-12-05 08:00:00 Outpatient R ZARINA KENNEDY [facility] [id number] [facility] 2022-11-28 00:00:00 2022-11-28 00:00:00 Telephone Nicole Wendy [facility] 1.2.840.114 350.1.13.10 4.2.7.2.686 [id number] [facility] 2022-11-21 08:56:00 2022-11-21 08:56:00 Outpatient [facility] [id number] Dirk Milan 2022-11-18 14:30:00 2022-11-18 15:20:30 Outpatient R WENDY RIVERA [facility] [id number] [facility] 2022-11-18 14:30:00 2022-11-18 15:20:30 Office Visit Wendy Rivera [facility] 1.2.840.114 350.1.13.10 4.2.7.2.686 [id number] [facility] 2022-11-18 00:00:00 2022-11-18 00:00:00 Orders Only Doctor Unassigned, [place] [facility] 1.2.840.114 350.1.13.10 4.2.7.2.686 [id number] [facility] 2022-10-29 09:00:00 2022-10-29 09:00:00 Outpatient R [facility] [id number] [facility] 2022-10-28 00:00:00 2022-10-28 00:00:00 Telephone [facility] 1..114 350.1.13.10 4.2.7.2.686 [id number] [facility] 2022-10-23 00:00:00 2022-10-23 00:00:00 Telephone [facility] 1..114 350.1.13.10 4.2.7.2.686 [id number] [facility] 2022-08-26 14:30:00 2022-08-26 15:11:07 Outpatient Stevo RIVERA [facility] [id number] [facility] 2022-08-26 14:30:00 2022-08-26 15:11:07 Nurse Visit Nurse, [facility] Nicole [facility] 1..114 350.1.13.10 4.2.7.2.686 [id number] [facility] 2022-07-03 17:00:00 2022-07-03 17:15:00 Qi Specialist Visit [facility] 1.114 350.1.13.10 4.2.7.2.686 [id number] [facility] 2022-07-03 16:00:00 2022-07-03 16:06:31 Outpatient R [facility] [id number] [facility] 2022-07-03 16:00:00 2022-07-03 16:06:31 Office Visit Isha [facility] 1..114 350.1.13.10 4.2.7.2.686 [id number] [facility] 2022-07-03 16:00:00 2022-07-03 16:06:31 Outpatient GUTIERREZ CADE [facility] [id number] [facility] 2022-07-03 16:00:00 2022-07-03 16:06:31 Outpatient Stevo GUTIERREZ BRAVO [facility] [id number] [facility] 2022-06-19 00:00:00 2022-06-19 00:00:00 Telephone [place], Nephrology [facility] 1..840.114 350.1.13.10 4.2.7.2.686 [id number] [facility] 2022-06-12 00:00:00 2022-06-12 00:00:00 Telephone [place], Nephrology [facility] 1..840.114 350.1.13.10 4.2.7.2.686 [id number] [facility] 2022-06-03 14:00:00 2022-06-03 14:15:27 Outpatient WENDY WALDROP [facility] [id number] [facility] 2022-06-03 14:00:00 2022-06-03 14:15:27 Nurse Visit Nurse, [facility] Nicole [facility] 1..840.114 350.1.13.10 4.2.7.2.686 [id number] [facility] 2022-04-04 15:00:00 2022-04-04 15:00:00 [id number] 2022-04-03 13:10:05 2022-04-03 23:59:00 Outpatient Stevo RIVERA [facility] [id number] [facility] 2022-04-03 13:00:00 2022-04-03 23:59:00 Hospital Encounter Wendy Rivera [facility] 1.840.114 350.1.13.10 4.2.7.2.686 [id number] [facility] 2022-04-03 00:00:00 2022-04-03 00:00:00 Orders Only Doctor Unassigned, [place] [facility] 1.84.114 350.1.13.10 4.2.7.2.686 [id number] [facility] 2022-04-03 00:00:00 2022-04-03 00:00:00 Case Management Wendy Rivera [facility] 1.840.114 350.1.13.10 4.2.7.2.686 [id number] [facility] 2022-03-27 09:30:00 2022-03-27 09:30:00 Outpatient ZARINA DERAS [facility] [id number] [facility] 2022-03-27 09:30:00 2022-03-27 09:30:00 Outpatient ZARINA DERAS [facility] [id number] [facility] 2022-03-27 09:30:00 2022-03-27 09:30:00 Outpatient ZARINA DERAS [facility] [id number] [facility] 2022-03-07 14:00:00 2022-03-07 14:18:10 Outpatient ZARINA DERAS [facility] [id number] [facility] 2022-03-07 14:00:00 2022-03-07 14:18:10 Nurse Visit Nurse, [facility] Zarina Kennedy [facility] 1..840.114 350.1.13.10 4.2.7.2.686 [id number] [facility] 2022-02-28 00:00:00 2022-02-28 00:00:00 Telephone Wendy Rivera [facility] 1.2.840.114 350.1.13.10 4.2.7.2.686 [id number] [facility] 2022-02-26 15:00:00 2022-02-26 16:12:25 Outpatient R NORMA PARTIDA [facility] [id number] [facility] 2022-02-26 15:00:00 2022-02-26 16:12:25 Office Visit Wendy Rivera Vivian Alon [facility] 1.2.840.114 350.1.13.10 4.2.7.2.686 [id number] 134 [id number] [facility] 2021-12-13 10:30:00 2021-12-13 10:42:25 Outpatient ZARINA DERAS [facility] [id number] [facility] 2021-12-13 10:30:00 2021-12-13 10:42:25 Nurse Visit Nurse, [facility] Zarina Kennedy [facility] 1..840.114 350.1.13.10 4.2.7.2.686 [id number] [facility] 2021-12-13 10:30:00 2021-12-13 10:30:00 Outpatient R [facility] [id number] [facility] 2021-12-13 00:00:00 2021-12-13 00:00:00 Orders Only Doctor Unassigned, [place] [facility] 1..840.114 350.1.13.10 4.2.7.2.686 [id number] [facility] 2021-12-07 13:00:00 2021-12-07 13:00:00 Outpatient STAN SPEARS [facility] [id number] [facility] 2021-11-28 12:55:00 2021-11-28 16:24:00 Emergency X Pedro MILLER [facility] ERT [id number] [facility] 2021-11-28 12:55:00 2021-11-28 16:24:00 Emergency Pedro Miller [facility] 1.2.840.114 350.1.13.10 4.2.7.2.686 [id number] [facility] 2021-11-28 00:00:00 2021-11-28 00:00:00 Orders Only Doctor Unassigned, [place] [facility] 1.2.840.114 350.1.13.10 4.2.7.2.686 [id number] [facility] 2021-10-22 09:00:00 2021-10-22 09:29:56 Outpatient WENDY WALDROP [facility] [id number] [facility] 2021-10-22 08:40:07 2021-10-22 09:29:56 Office Visit Nicole [facility] 1.2.840.114 350.1.13.10 4.2.7.2.686 [id number] 134 [id number] [facility] 2021-09-27 10:30:00 2021-09-27 10:53:39 Outpatient Stevo RIVERA [facility] [id number] [facility] 2021-09-27 10:24:13 2021-09-27 10:53:39 Routine Visit Zarina Kennedy [facility] 1.2.840.114 350.1.13.10 4.2.7.2.686 [id number] 134 [id number] [facility] 2021-09-12 00:00:00 2021-09-12 00:00:00 Telephone Nicole [facility] 1.2.840.114 350.1.13.10 4.2.7.2.686 [id number] 134 [id number] [facility] 2021-09-10 04:05:00 2021-09-11 16:00:00 Inpatient P ZARINA KENNEDY [facility] ERT [id number] [facility] 2021-09-10 04:05:00 2021-09-11 16:00:00 Hospital Encounter Zarina Kennedy [facility] 1.2.840.114 350.1.13.10 4.2.7.2.686 [id number] [facility] 2021-09-10 08:35:00 2021-09-10 16:19:00 Anesthesia Event Jordan Gaspar Leonard [facility] 1.2840.114 350.1.13.10 4.2.7.2.686 [id number] [facility] 2021-09-07 10:06:22 2021-09-07 10:21:22 Laboratory Only Only, Adc Test Zarina Kennedy [facility] 1.2.840.114 350.1.13.10 4.2.7.2.686 [id number] [facility] 2021-09-07 10:15:00 2021-09-07 10:15:00 Outpatient R ZARINA KENNEDY [facility] [id number] [facility] 2021-09-06 11:00:13 2021-09-06 11:58:29 Routine Visit Zarina [facility] 1.2840.114 350.1.13.10 4.2.7.2.686 [id number] 134 [id number] [facility] 2021-09-06 11:00:00 2021-09-06 11:58:29 Outpatient R ZARINA KENNEDY [facility] [id number] [facility] 2021-09-04 13:23:00 2021-09-04 15:35:00 Hospital Encounter Zarina Kennedy Marcus Norma Partida [facility] 1.2.114 350.1.13.10 4.2.7.2.686 [id number] 083 [id number] [facility] 2021-09-04 13:23:00 2021-09-04 15:35:00 Outpatient P ZARINA KENNEDY [facility] ERT [id number] [facility] 2021-09-04 11:00:00 2021-09-04 12:14:54 [facility] [id number] 2021-09-04 10:42:04 2021-09-04 12:14:54 Routine Visit Wendy Rivera [facility] 1.2.114 350.1.13.10 4.2.7.2.686 [id number] 134 [id number] [facility] 2021-09-04 00:00:00 2021-09-04 00:00:00 Telephone Kennedy Zarina Velazquez [facility] Professio critical access hospital Building 1.2.840.114 350.1.13.10 4.2.7.2.686 [id number] 134 [id number] [facility] 2021-09-03 16:15:00 2021-09-03 16:15:00 [facility] [id number] [facility] 2021-08-27 16:30:00 2021-08-27 16:30:00 [facility] [id number] [facility] 2021-08-27 15:51:06 2021-08-27 16:29:15 Routine Visit Zarina Kennedy [facility] Professio nal Building 1.2.840.114 350.1.13.10 4.2.7.2.686 [id number] 134 [id number] [facility] 2021-08-25 22:15:00 2021-08-25 23:30:00 Hospital Encounter Oumar Kary [facility] 1.2.840.114 350.1.13.10 4.2.7.2.686 [id number] 083 [id number] [facility] 2021-08-25 09:36:00 2021-08-25 18:31:00 Emergency Oumar Kary [facility] 1.2.840.114 350.1.13.10 4.2.7.2.686 [id number] 083 [id number] [facility] 2021-08-24 00:00:00 2021-08-24 00:00:00 Telephone Zarina Kennedy [facility] nal Building 1.2.840.114 350.1.13.10 4.2.7.2.686 [id number] 134 [id number] [facility] 2021-08-24 00:00:00 2021-08-24 00:00:00 Telephone Wendy Rivera [facility] Profess nal Building 1.2.840.114 350.1.13.10 4.2.7.2.686 [id number] 134 [id number] [facility] 2021-08-20 08:20:54 2021-08-20 09:06:30 Routine Visit Zarina Kennedy [facility] nal Building 1.2.840.114 350.1.13.10 4.2.7.2.686 [id number] 134 [id number] [facility] 2021-08-20 08:00:00 2021-08-20 08:00:00 Outpatient R ZARINA KENNEDY [facility] [id number] [facility] 2021-08-20 00:00:00 2021-08-20 00:00:00 Telephone Zarina Kennedy Cam [facility] 1.2.840.114 350.1.13.10 4.2.7.2.686 [id number] 134 [id number] [facility] 2021-08-20 00:00:00 2021-08-20 00:00:00 Orders Only Doctor Unassigned, [place] [facility] 1.2.840.114 350.1.13.10 4.2.7.2.686 [id number] 009 [id number] [facility] 2021-08-17 19:05:00 2021-08-17 21:15:00 Hospital Encounter Zarina Kennedy [facility] 1.2.840.114 350.1.13.10 4.2.7.2.686 [id number] 083 [id number] [facility] 2021-08-17 00:00:00 2021-08-17 00:00:00 Orders Only Doctor Unassigned, [place] [facility] 1.2.840.114 350.1.13.10 4.2.7.2.686 [id number] [id number] [facility] 2021-08-13 16:00:00 2021-08-13 16:00:00 Outpatient R NICOLE WENDY [facility] [id number] [facility] 2021-08-13 13:32:20 2021-08-13 13:47:20 Qi Specialist Visit 2, Adc Lab Maytedamien [facility] 1.2.840.114 350.1.13.10 4.2.7.2.686 [id number] [facility] 2021-08-13 12:46:01 2021-08-13 13:29:24 Routine Visit Nicole Wendy [facility] 1.2.840.114 350.1.13.10 4.2.7.2.686 [id number] 134 [id number] [facility] 2021-08-11 00:00:00 2021-08-11 00:00:00 Nurse Triage Lashay Merritt [facility] 1.2840.114 350.1.13.10 4.2.7.2.686 [id number] 019 [id number] [facility] 2021-08-03 10:23:00 2021-08-03 13:15:00 Hospital Encounter Brent Norma Miller [facility] 1.2.840.114 350.1.13.10 4.2.7.2.686 [id number] 083 [id number] [facility] 2021-08-03 00:00:00 2021-08-03 00:00:00 Telephone Kennedy [facility] 1.2.840.114 350.1.13.10 4.2.7.2.686 [id number] 134 [id number] [facility] 2021-08-03 00:00:00 2021-08-03 00:00:00 Orders Only Doctor Unassigned, [place] [facility] 1.2840.114 350.1.13.10 4.2.7.2.686 [id number] [id number] [facility] 2021-08-01 15:55:38 2021-08-01 16:48:02 Routine Visit Zarina Kennedy Nancy [facility] Professio nal Building 1.2.840.114 350.1.13.10 4.2.7.2.686 [id number] 134 [id number] [facility] 2021-08-01 16:15:00 2021-08-01 16:15:00 Outpatient WENDY WALDROP [facility] [id number] [facility] 2021-07-20 13:13:35 2021-07-20 13:57:45 Qi Specialist Visit Ultrasound, Adc MfSherry Duff [facility] Professio nal Building 1.2.840.114 350.1.13.10 4.2.7.2.686 [id number] 134 [id number] [facility] 2021-07-20 13:30:00 2021-07-20 13:30:00 Outpatient P [facility] [id number] [facility] 2021-07-18 09:45:00 2021-07-18 09:45:00 Outpatient R WENDY RIVERA [facility] [id number] [facility] 2021-07-18 08:15:00 2021-07-18 08:15:00 Outpatient R [facility] [id number] [facility] 2021-07-17 15:44:11 2021-07-17 16:52:37 Routine Visit Zarina Kennedy [facility] 1..840.114 350.1.13.10 4.2.7.2.686 [id number] 134 [id number] [facility] 2021-07-17 15:44:11 2021-07-17 16:52:37 Routine Visit Zarina Kennedy [facility] 1.2.840.114 350.1.13.10 4.2.7.2.686 [id number] 134 [id number] [facility] 2021-07-17 16:15:00 2021-07-17 16:15:00 Outpatient R ZARINA KENNEDY [facility] [id number] [facility] 2021-07-17 00:00:00 2021-07-17 00:00:00 Orders Only Doctor Unassigned, [place] [facility] 1.2.840.114 350.1.13.10 4.2.7.2.686 [id number] 009 [id number] [facility] 2021-07-17 00:00:00 2021-07-17 00:00:00 Orders Only Doctor Unassigned, [place] [facility] 1.2.840.114 350.1.13.10 4.2.7.2.686 [id number] [id number] [facility] 2021-07-09 11:15:00 2021-07-09 11:15:00 Outpatient R ZARINA KENNEDY [facility] [id number] [facility] 2021-07-03 00:00:00 2021-07-03 00:00:00 Telephone Zarina [facility] 1.2.840.114 350.1.13.10 4.2.7.2.686 [id number] 134 [id number] [facility] 2021-07-03 00:00:00 2021-07-03 00:00:00 Telephone Zarina Kennedy [facility] Building 1.2.840.114 350.1.13.10 4.2.7.2.686 [id number] 134 [id number] [facility] 2021-06-28 10:40:29 2021-06-28 10:55:29 Qi Specialist Visit 2, Adc Lab Zarina Kennedy [facility] Building 1.2.840.114 350.1.13.10 4.2.7.2.686 [id number] [facility] 2021-06-28 10:40:29 2021-06-28 10:55:29 Qi Specialist Visit 2, Adc Lab Zarina Kennedy [facility] Building 1.2.840.114 350.1.13.10 4.2.7.2.686 [id number] [facility] 2021-06-28 10:00:00 2021-06-28 10:00:00 Outpatient R [facility] [id number] [facility] 2021-06-28 00:00:00 2021-06-28 00:00:00 Telephone Zarina Kennedy [facility] Building 1.2.840.114 350.1.13.10 4.2.7.2.686 [id number] 134 [id number] [facility] 2021-06-25 10:31:20 2021-06-25 11:38:32 Routine Visit [facility] 1.2.840.114 350.1.13.10 4.2.7.2.686 [id number] 134 [id number] [facility] 2021-06-25 11:00:00 2021-06-25 11:00:00 Outpatient R ZARINA KENNEDY [facility] [id number] [facility] 2021-06-11 17:01:00 2021-06-11 19:52:00 Emergency Zarina Kennedy [facility] 1.2.840.114 350.1.13.10 4.2.7.2.686 [id number] 083 [id number] [facility] 2021-06-11 00:00:00 2021-06-11 00:00:00 Telephone Zarina Kennedy [facility] 1.2.840.114 350.1.13.10 4.2.7.2.686 [id number] 134 [id number] [facility] 2021-06-07 00:00:00 2021-06-07 00:00:00 Telephone Zarina Kennedy [facility] Building 1.2.840.114 350.1.13.10 4.2.7.2.686 [id number] 134 [id number] [facility] 2021-05-29 15:17:17 2021-05-29 15:49:09 Nurse Visit Nurse, [facility] Zarina Kennedy [facility] Building 1.2.840.114 350.1.13.10 4.2.7.2.686 [id number] 134 [id number] [facility] 2021-05-29 15:07:51 2021-05-29 15:22:51 Qi Specialist Visit 2, Adc Lab Zarina Kennedy [facility] 1.2.840.114 350.1.13.10 4.2.7.2.686 [id number] 353 [id number] [facility] 2021-05-29 15:00:00 2021-05-29 15:00:00 Outpatient R [facility] [id number] [facility] 2021-05-29 00:00:00 2021-05-29 00:00:00 Telephone Zarina Kennedy [facility] 1.2.840.114 350.1.13.10 4.2.7.2.686 [id number] 134 [id number] [facility] 2021-05-28 13:26:09 2021-05-28 14:18:04 Routine Visit Zarina Kennedy [facility] 1.2.840.114 350.1.13.10 4.2.7.2.686 [id number] 134 [id number] [facility] 2021-05-28 13:30:00 2021-05-28 13:30:00 Outpatient R ZARINA EKNNEDY [facility] [id number] [facility] 2021-05-09 11:15:00 2021-05-09 11:15:00 Outpatient R WENDY RIVERA [facility] [id number] [facility] 2021-05-09 10:58:18 2021-05-09 11:13:18 Routine Visit MayteWendy quezada [facility] 1.2.840.114 350.1.13.10 4.2.7.2.686 [id number] 134 [id number] [facility] 2021-05-07 00:00:00 2021-05-07 00:00:00 Telephone Zarina Kennedy [facility] Building 1.2.840.114 350.1.13.10 4.2.7.2.686 [id number] 134 [id number] [facility] 2021-04-27 12:57:28 2021-04-27 13:57:28 Qi Specialist Visit Ultrasound, Adc Mfhenrik Kian Gutierrez [facility] 1.20.114 350.1.13.10 4.2.7.2.686 [id number] 134 [id number] [facility] 2021-04-27 13:00:00 2021-04-27 13:00:00 Outpatient R [facility] [id number] [facility] 2021-04-24 00:00:00 2021-04-24 00:00:00 Telephone Zarina Kennedy [facility] 1.20.114 350.1.13.10 4.2.7.2.686 [id number] 134 [id number] [facility] 2021-04-21 16:26:26 2021-04-21 16:59:11 Telemedici ne Visit Mihai Fernandez Unknown, Attending [facility] 1.2.114 350.1.13.10 4.2.7.2.686 [id number] [facility] 2021-04-21 16:30:00 2021-04-21 16:30:00 Outpatient R UNKNOWN, ATTENDING [facility] [id number] [facility] 2021-04-19 11:49:00 2021-04-19 16:10:00 Emergency Zarina Kennedy [facility] 1.20.114 350.1.13.10 4.2.7.2.686 [id number] [id number] [facility] 2021-04-19 00:00:00 2021-04-19 00:00:00 Telephone Zarina Kennedy [facility] Building 1.20.114 350.1.13.10 4.2.7.2.686 [id number] 134 [id number] [facility] 2021-04-11 13:32:48 2021-04-11 13:47:48 Qi Specialist Visit 2, Adc Lab Zarina Kennedy [facility] Lori Reinosoio nal Building 1.2.840.114 350.1.13.10 4.2.7.2.686 [id number] [facility] [id number] [facility] 2021-04-11 13:05:36 2021-04-11 13:28:34 Routine Visit Zarina Kennedy [facility] 1.2.840.114 350.1.13.10 4.2.7.2.686 [id number] 134 [id number] [facility] 2021-04-11 13:00:00 2021-04-11 13:00:00 Outpatient R ZARINA KENNEDY [facility] [id number] [facility] 2021-03-14 12:43:31 2021-03-14 13:35:28 Routine Visit Wendy Rivera [facility] Building 1.2.840.114 350.1.13.10 4.2.7.2.686 [id number] 134 [id number] 2021-03-14 12:43:31 2021-03-14 13:35:28 Routine Visit Wendy Rivera [facility] Building 1.2.840.114 350.1.13.10 4.2.7.2.686 [id number] 134 [id number] [facility] 2021-03-14 13:00:00 2021-03-14 13:00:00 [id number] 2021-02-28 00:00:00 2021-02-28 00:00:00 Telephone Zarina Kennedy [facility] 1.2.840.114 350.1.13.10 4.2.7.2.686 [id number] 134 [id number] [facility] 2021-02-21 13:15:00 2021-02-21 13:15:00 Outpatient R [facility] [id number] [facility] 2021-02-21 00:00:00 2021-02-21 00:00:00 Orders Only Doctor Unassigned, [place] [facility] 1.2.840.114 350.1.13.10 4.2.7.2.686 [id number] [id number] [facility] 2021-02-14 15:01:28 2021-02-14 15:58:16 Routine Visit Zarina Kennedy [facility] Building 1.2840.114 350.1.13.10 4.2.7.2.686 [id number] 134 [id number] [facility] 2021-02-14 15:45:00 2021-02-14 15:45:00 Outpatient R [facility] [id number] [facility] 2021-01-23 00:00:00 2021-01-23 00:00:00 Orders Only Doctor Unassigned, [place] [facility] 1.2840.114 350.1.13.10 4.2.7.2.686 [id number] [id number] [facility] 2021-01-19 00:00:00 2021-01-19 00:00:00 Telephone Zarina Kennedy [facility] Building 1.2840.114 350.1.13.10 4.2.7.2.686 [id number] 134 [id number] [facility] 2021-01-18 14:10:26 2021-01-18 14:25:26 Qi Specialist Visit 2, Adc Lab Zarina Kennedy [facility] Building 1.2.840.114 350.1.13.10 4.2.7.2.686 [id number] [facility] 2021-01-18 14:15:00 2021-01-18 14:15:00 Outpatient R [facility] [id number] [facility] 2021-01-18 00:00:00 2021-01-18 00:00:00 Case Management Wendy Rivera [facility] Building 1.2.840.114 350.1.13.10 4.2.7.2.686 [id number] 134 [id number] [facility] 2021-01-17 09:00:00 2021-01-17 09:00:00 Outpatient R [facility] [id number] [facility] 2021-01-16 08:45:00 2021-01-16 08:45:00 [facility] [id number] 2021-01-16 00:00:00 2021-01-16 00:00:00 Telephone Zarina Kennedy [facility] 1.2.840.114 350.1.13.10 4.2.7.2.686 [id number] 134 [id number] [facility] 2021-01-15 11:32:17 2021-01-15 11:47:17 Qi Specialist Visit 2, Adc Lab Zarina Kennedy [facility] Building 1.2.840.114 350.1.13.10 4.2.7.2.686 [id number] [facility] 2021-01-15 10:17:01 2021-01-15 11:18:23 Initial Visit Zarina Kennedy [facility] Building 1.2.840.114 350.1.13.10 4.2.7.2.686 [id number] 134 [id number] [facility] 2021-01-15 10:00:00 2021-01-15 10:00:00 Outpatient R ZARINA KENNEDY [facility] [id number] [facility] 2021-01-15 00:00:00 2021-01-15 00:00:00 Telephone Zarina Kennedy [facility] 1.2.840.114 350.1.13.10 4.2.7.2.686 [id number] 134 [id number] [facility] 2021-01-15 00:00:00 2021-01-15 00:00:00 Orders Only Doctor Unassigned, [place] [facility] 1.20.114 350.1.13.10 4.2.7.2.686 [id number] [id number] [facility] 2021-01-13 18:29:00 2021-01-13 22:52:00 Emergency Kary Lopez [facility] 1.840.114 350.1.13.10 4.2.7.2.686 [id number] 084 [id number] [facility] 2020-12-01 10:52:00 2020-12-01 12:00:00 Emergency E [facility] [id number] [facility] 2020-07-11 10:39:46 2020-07-11 11:22:54 Office Visit Norma Partida [facility] 1..840.114 350.1.13.10 4.2.7.2.686 [id number] 134 [id number] [facility] 2020-07-11 11:00:00 2020-07-11 11:00:00 Outpatient R NORMA PARTIDA [facility] [id number] [facility] 2020-07-11 00:00:00 2020-07-11 00:00:00 Orders Only Doctor Unassigned, [place] [facility] 1.2840.114 350.1.13.10 4.2.7.2.686 [id number] [id number] [facility] 2020-07-05 16:00:00 2020-07-05 16:00:00 Outpatient R NORMA PARTIDA [facility] [id number] [facility] 2020-06-21 15:22:00 2020-06-21 18:25:00 Emergency Viviana Downey [facility] 1.20.114 350.1.13.10 4.2.7.2.686 [id number] 084 [id number] [facility] 2020-06-21 00:00:00 2020-06-21 00:00:00 Orders Only Doctor Unassigned, [place] [facility] 1.20.114 350.1.13.10 4.2.7.2.686 [id number] [id number] [facility] 2020-05-01 00:00:00 2020-05-01 00:00:00 Orders Only Doctor Unassigned, [place] [facility] 1.2.114 350.1.13.10 4.2.7.2.686 [id number] [id number] [facility] 2020-02-28 11:00:00 2020-02-28 11:00:00 Outpatient R NICOLEWENDY [facility] [id number] [facility] 2020-02-28 08:13:41 2020-02-28 08:28:41 Telemedici ne Visit Nicole [facility] 1.84.114 350.1.13.10 4.2.7.2.686 [id number] 134 [id number] [facility] 2020-02-26 11:00:00 2020-02-26 11:00:00 Outpatient R UNKNOWN, ATTENDING [facility] [id number] [facility] 2020-02-21 00:00:00 2020-02-21 00:00:00 [facility] 1.84.114 350.1.13.10 4.2.7.2.686 [id number] 134 [id number] [facility] 2020-02-04 00:00:00 2020-02-04 00:00:00 Telephone Wendy Rivera [facility] Proftitusio nal Building 1.2840.114 350.1.13.10 4.2.7.2.686 [id number] 134 [id number] [facility] 2020-02-02 00:00:00 2020-02-02 00:00:00 Refill Zarina Kennedy [facility] 1.2840.114 350.1.13.10 4.2.7.2.686 [id number] 083 [id number] [facility] 2020-01-30 23:20:00 2020-02-01 13:32:00 Hospital Encounter Zarina Kennedy [facility] 1.2840.114 350.1.13.10 4.2.7.2.686 [id number] 083 [id number] [facility] 2020-01-31 11:00:00 2020-01-31 11:00:00 Outpatient R WENDY RIVERA [facility] [id number] [facility] 2020-01-30 00:00:00 2020-01-30 00:00:00 Orders Only Doctor Unassigned, [place] [facility] 1.840.114 350.1.13.10 4.2.7.2.686 [id number] [id number] [facility] 2020-01-28 00:00:00 2020-01-28 00:00:00 Telephone Zarina Kennedy [facility] Building 1.0.114 350.1.13.10 4.2.7.2.686 [id number] 134 [id number] [facility] 2020-01-24 14:38:36 2020-01-24 14:53:36 Qi Specialist Visit 2, Adc Lab Zarina Kennedy [facility] Building 1.2840.114 350.1.13.10 4.2.7.2.686 [id number] 353 [id number] [facility] 2020-01-24 13:22:06 2020-01-24 14:11:49 Routine Visit Zarina Kennedy [facility] Professio nal Building 1.2840.114 350.1.13.10 4.2.7.2.686 [id number] 134 [id number] [facility] 2020-01-24 13:15:00 2020-01-24 13:15:00 Outpatient R ZARINA KENNEDY [facility] [id number] [facility] 2020-01-24 00:00:00 2020-01-24 00:00:00 Orders Only Doctor Unassigned, [place] [facility] 1.2840.114 350.1.13.10 4.2.7.2.686 [id number] 009 [id number] [facility] 2020-01-23 03:41:00 2020-01-23 07:15:00 Hospital Encounter Marco A Nieto Vien [facility] 1.2840.114 350.1.13.10 4.2.7.2.686 [id number] 083 [id number] [facility] 2020-01-21 21:41:00 2020-01-22 01:25:00 Hospital Encounter Marco A Nieto [facility] 1.2840.114 350.1.13.10 4.2.7.2.686 [id number] 083 [id number] [facility] 2020-01-20 00:00:00 2020-01-20 00:00:00 Case Management [facility] 1.2.114 350.1.13.10 4.2.7.2.686 [id number] 134 [id number] [facility] 2020-01-18 12:35:00 2020-01-18 15:00:00 Hospital Encounter Zarina Kennedy [facility] 1.2.840.114 350.1.13.10 4.2.7.2.686 [id number] 083 [id number] [facility] 2020-01-18 12:35:00 2020-01-18 12:35:00 Outpatient P ZARINA KENNEDY [facility] JONI [id number] [facility] 2020-01-10 13:56:38 2020-01-10 14:42:48 [facility] 1.2.840.114 350.1.13.10 4.2.7.2.686 [id number] 134 [id number] [facility] 2020-01-10 14:00:00 2020-01-10 14:00:00 Outpatient R NICOLE [facility] [id number] [facility] 2020-01-06 11:15:00 2020-01-06 11:15:00 Outpatient R ZARINA KENNEDY [facility] [id number] [facility] 2020-01-06 00:00:00 2020-01-06 00:00:00 [facility] 1.2840.114 350.1.13.10 4.2.7.2.686 [id number] 019 [id number] [facility] 2019-12-08 13:39:40 2019-12-08 14:27:14 Routine Visit OswaldWendy cat [facility] 1.2.840.114 350.1.13.10 4.2.7.2.686 [id number] 134 [id number] [facility] 2019-11-01 12:45:26 2019-11-01 13:14:04 Office Visit Martha Cohn Joseph W [facility]IAL[facility] 1.2.840.114 350.1.13.10 4.2.7.2.686 [id number] [facility] 2019-07-29 00:00:00 2019-07-29 00:00:00 Telephone [facility] 1.2.840.114 350.1.13.10 4.2.7.2.686 [id number] 134 [id number] [facility] 2019-07-28 00:00:00 2019-07-28 00:00:00 Case Management Zarina Kennedy [facility] 1.2.840.114 350.1.13.10 4.2.7.2.686 [id number] 134 [id number] [facility] 2019-07-27 15:56:23 2019-07-27 16:11:23 Nurse Visit Nurse, [facility] Zarina Kennedy [facility] 1.2.840.114 350.1.13.10 4.2.7.2.686 [id number] 134 [id number] [facility] 2019-07-23 00:00:00 2019-07-23 00:00:00 Telephone Zarina Kennedy [facility] 1.2.840.114 350.1.13.10 4.2.7.2.686 [id number] 134 [id number] [facility] 2019-07-21 13:20:15 2019-07-21 13:35:15 Qi Specialist Visit 1, [facility] Lab Zarina Kennedy [facility] 1.2.840.114 350.1.13.10 4.2.7.2.686 [id number] [facility] 2019-07-20 16:27:05 2019-07-20 17:06:12 Routine Visit [facility] 1.2.840.114 350.1.13.10 4.2.7.2.686 [id number] 134 [id number] [facility] 2019-07-15 00:00:00 2019-07-15 00:00:00 Telephone [facility] 1.2.840.114 350.1.13.10 4.2.7.2.686 [id number] 134 [id number] [facility] 2019-07-14 00:00:00 2019-07-14 00:00:00 Telephone [facility] 1.2.840.114 350.1.13.10 4.2.7.2.686 [id number] 134 [id number] [facility] 2019-07-07 14:11:07 2019-07-07 16:17:14 Initial Visit Zarina Kennedy [facility] 1.2.840.114 350.1.13.10 4.2.7.2.686 [id number] 134 [id number] [facility] 2019-07-07 00:00:00 2019-07-07 00:00:00 Orders Only Doctor Unassigned, [place] [facility] 1.2.840.114 350.1.13.10 4.2.7.2.686 [id number] [facility] Results Test Description Test Time Test Comments Results Result Co [facility] (NA, K, CL, CO2, GLUCOSE, BUN, CREATININE, CA)2023-10-14 11:07:11* Test Item Value Reference Range Interpretation Comme nts NA (test code = 3046520464) 138 mmol/L 135-145 K (test code = 7068447730) 3.5 mmol/L 3.5-5.0 CL (test code = 8190666818) 113 mmol/L 98-108 H CO2 TOTAL (test code = 8021360857) 17 mmol/L 23-31 L AGAP (test code = 9507636891) 8 2-16 BUN (test code = 5976423308) 11 mg/dL 7-23 GLUCOSE (test code = 0606310703) 81 mg/dL 70-110 CREATININE (test code = 7192241478) 0.42 mg/dL 0.50-1.04 L CALCIUM (test code = 7435265089) 8.2 mg/dL 8.6-10.6 L eGFR (test code = 81417-8) 142.0 mL/min/1.73m2 CKD-EPI eGFR (2020). Assuming creatinine has been stable day-to-day for at least three months, the eGFR indicates Category G1 (>= 90 mL/min/1.73 m2) Lab Interpretation (test code = 54138-6) Abnormal [facility] with [id number] 10:52:48* Test Item Value Reference Range Interpretation Comme nts WBC (test code = 6690-2) 7.73 See_Comment [[employer]] The system which generated this result transmitted reference range: 4.30 - 11.10 10*3/?L. The reference range was not used to interpret this result as normal/abnormal. RBC (test code = 789-8) 3.67 See_Comment L [[employer]] The system which generated this result transmitted [...] 33.4 g/dL 31.6-35.1 RDW-SD (test code = 74422-5) 39.2 fL 39.0-49.9 RDW-CV (test code = 788-0) 12.2 % 12.0-15.5 PLT (test code = 777-3) 240 See_Comment [[employer]] The system which generated this result transmitted reference range: 166 - 358 10*3/?L. The reference range was not used to interpret this result as normal/abnormal. MPV (test code = 52750-0) 9.5 fL 9.5-12.9 NRBC/100 WBC (test code = 3239912929) 0.0 See_Comment [Automated me ssage] The system which generated this result transmitted reference range: 0.0 - 10.0 /100 WBCs. The reference range was not used to interpret this result as normal/abnormal. NRBC x10^3 (test code = 4474243225) See_Comment [Automated messa ge] The system which generated this result transmitted reference range: 10*3/?L. The reference range was not used to interpret this result as normal/abnormal. GRAN MAT (NEUT) % (test code = 770-8) 53.1 % IMM GRAN % (test code = 0799587077) 0.30 % LYMPH % (test code = 736-9) 37.8 % MONO % (test code = 5905-5) 5.2 % EOS % (test code = 713-8) 3.2 % BASO % (test code = 706-2) 0.4 % GRAN MAT x10^3(ANC) (test code = 5694630733) 4.11 10*3/uL 1.88-7.09 IMM GRAN x10^3 (test code = 2893347547) 0.00-0.06 LYMPH x10^3 (test code = 731-0) 2.92 10*3/uL 1.32-3.29 MONO x10^3 (test code = 742-7) 0.40 10*3/uL 0.33-0.92 EOS x10^3 (test code = 711-2) 0.25 10*3/uL 0.03-0.39 BASO x10^3 (test code = 704-7) 0.03 10*3/uL 0.01-0.07 Lab Interpretation (test code = 42873-1) Abnormal [facility] METABOLIC PANEL (NA, K, CL, CO2, GLUCOSE, BUN, CREATININE, CA)2023-10-14 02:10:35* Test Item Value Reference Range Interpretation Comme nts NA (test code = 7037915182) 134 mmol/L 135-145 L K (test code = 3358272198) 3.4 mmol/L 3.5-5.0 L CL (test code = 5331264519) 111 mmol/L 98-108 H CO2 TOTAL (test code = 6551460994) 17 mmol/L 23-31 L AGAP (test code = 4714569439) 6 2-16 BUN (test code = 9606691884) 14 mg/dL 7-23 GLUCOSE (test code = 8811834707) 82 mg/dL 70-110 CREATININE (test code = 4670579539) 0.45 mg/dL 0.50-1.04 L CALCIUM (test code = 2915789185) 8.0 mg/dL 8.6-10.6 L eGFR (test code = 03113-5) 139.7 mL/min/1.73m2 CKD-EPI eGFR (2020). Assuming creatinine has been stable day-to-day for at least three months, the eGFR indicates Category G1 (>= 90 mL/min/1.73 m2) Lab Interpretation (test code = 79843-9) Abnormal [facility] WITH [id number] 01:49:54* Test Item Value Reference Range Interpretation Comme nts WBC (test code = 6690-2) 10.05 See_Comment [[employer]] The system which generated this result transmitted reference range: 4.30 - 11.10 10*3/?L. The reference range was not used to interpret this result as normal/abnormal. RBC (test code = 789-8) 3.78 See_Comment L [[employer]] The system which generated this result transmitted [...] 33.6 g/dL 31.6-35.1 RDW-SD (test code = 49988-4) 39.0 fL 39.0-49.9 RDW-CV (test code = 788-0) 12.4 % 12.0-15.5 PLT (test code = 777-3) 251 See_Comment [Automated messa ge] The system which generated this result transmitted reference range: 166 - 358 10*3/?L. The reference range was not used to interpret this result as normal/abnormal. MPV (test code = 98397-1) 9.4 fL 9.5-12.9 L NRBC/100 WBC (test code = 1650128663) 0.0 See_Comment [Automated me ssage] The system which generated this result transmitted reference range: 0.0 - 10.0 /100 WBCs. The reference range was not used to interpret this result as normal/abnormal. NRBC x10^3 (test code = 2517968204) See_Comment [Automated messa ge] The system which generated this result transmitted reference range: 10*3/?L. The reference range was not used to interpret this result as normal/abnormal. GRAN MAT (NEUT) % (test code = 770-8) 62.2 % IMM GRAN % (test code = 0219144798) 0.30 % LYMPH % (test code = 736-9) 28.4 % MONO % (test code = 5905-5) 6.7 % EOS % (test code = 713-8) 2.1 % BASO % (test code = 706-2) 0.3 % GRAN MAT x10^3(ANC) (test code = 5975335768) 6.26 10*3/uL 1.88-7.09 IMM GRAN x10^3 (test code = 4946964561) 0.03 10*3/uL 0.00-0.06 LYMPH x10^3 (test code = 731-0) 2.85 10*3/uL 1.32-3.29 MONO x10^3 (test code = 742-7) 0.67 10*3/uL 0.33-0.92 EOS x10^3 (test code = 711-2) 0.21 10*3/uL 0.03-0.39 BASO x10^3 (test code = 704-7) 0.03 10*3/uL 0.01-0.07 Lab Interpretation (test code = 96304-7) Abnormal [facility]. METABOLIC PANEL (14253)2023 04:40:07* Test Item Value Reference Range Interpretation Comme nts NA (test code = 4476804937) 142 mmol/L 135-145 K (test code = 6330970275) 3.6 mmol/L 3.5-5.0 CL (test code = 1991230076) 109 mmol/L 98-108 H CO2 TOTAL (test code = 3718461259) 21 mmol/L 23-31 L AGAP (test code = 2043854240) 12 2-16 BUN (test code = 8543160313) 11 mg/dL 7-23 GLUCOSE (test code = 1178214057) 106 mg/dL 70-110 CREATININE (test code = 3321787129) 0.62 mg/dL 0.50-1.04 TOTAL BILI (test code = 9255470590) 0.2 mg/dL 0.1-1.1 CALCIUM (test code = 4969238795) 9.4 mg/dL 8.6-10.6 T PROTEIN (test code = 3178044965) 7.4 g/dL 6.3-8.2 ALBUMIN (test code = 7430691012) 4.5 g/dL 3.5-5.0 ALK PHOS (test code = 0100041723) 79 U/L 34-122 ALTv (test code = 1742-6) 32 U/L 5-35 AST(SGOT) (test code = 3852094860) 28 U/L 13-40 eGFR (test code = 48540-3) 130.1 mL/min/1.73m2 CKD-EPI eGFR (2020). Assuming creatinine has been stable day-to-day for at least three months, the eGFR indicates Category G1 (>= 90 mL/min/1.73 m2) Lab Interpretation (test code = 42053-1) Abnormal [facility] WITH [id number] 04:29:09* Test Item Value Reference Range Interpretation Comme nts WBC (test code = 6690-2) 7.15 See_Comment [[employer]] The system which generated this result transmitted reference range: 4.30 - 11.10 10*3/?L. The reference range was not used to interpret this result as normal/abnormal. RBC (test code = 789-8) 4.45 See_Comment [[employer] ([employer] ge] The system which generated this result [...] 33.4 g/dL 31.6-35.1 RDW-SD (test code = 62200-7) 40.4 fL 39.0-49.9 RDW-CV (test code = 788-0) 12.6 % 12.0-15.5 PLT (test code = 777-3) 269 See_Comment [[employer]] The system which generated this result transmitted reference range: 166 - 358 10*3/?L. The reference range was not used to interpret this result as normal/abnormal. MPV (test code = 03264-1) 9.6 fL 9.5-12.9 NRBC/100 WBC (test code = 9037122093) 0.0 See_Comment [Automated [employer]] The system which generated this result transmitted reference range: 0.0 - 10.0 /100 WBCs. The reference range was not used to interpret this result as normal/abnormal. NRBC x10^3 (test code = 0466734546) See_Comment [Automated [employer]] The system which generated this result transmitted reference range: 10*3/?L. The reference range was not used to interpret this result as normal/abnormal. GRAN MAT (NEUT) % (test code = 770-8) 69.3 % IMM GRAN % (test code = 7135842455) 0.10 % LYMPH % (test code = 736-9) 22.2 % MONO % (test code = 5905-5) 7.0 % EOS % (test code = 713-8) 1.1 % BASO % (test code = 706-2) 0.3 % GRAN MAT x10^3(ANC) (test code = 6522656270) 4.95 10*3/uL 1.88-7.09 IMM GRAN x10^3 (test code = 5425354201) 0.00-0.06 LYMPH x10^3 (test code = 731-0) 1.59 10*3/uL 1.32-3.29 MONO x10^3 (test code = 742-7) 0.50 10*3/uL 0.33-0.92 EOS x10^3 (test code = 711-2) 0.08 10*3/uL 0.03-0.39 BASO x10^3 (test code = 704-7) 0.01-0.07 [id number] Test Item Value Reference Range Interpretation Comme nts POCT PREG (test code = 1605) Negative On board controls acceptable with C Line (test code = 3574) Yes POCT PREG LOT # (test code = 3575) [id number] POCT PREG TEST DATE ( test code = 3576) 11/12/2024 Lab Interpretation (test cod e = 13511-5) Normal [facility], THIRD [id number] 06:03:21* Test Item Value Reference Range Interpretation Comme nts TSH, THIRD GENERATION (test code = 2821) 1.000 UIU/ML 0.400-4.100 UNLESS OTHERWISE INDICATED, ALL TESTING PERFORMED AT [facility] [address] [place] [address] MANAGER DATA WAREHOUSING: DOMITILA YOUNG M.D. CLIA NUMBER [id number] [facility] [place]. [id number] COMPREHENSIVE METABOLIC [id number] 06:02:54* Test Item Value Reference Range Interpretation Comme nts GLUCOSE (test code = 2217) 84 MG/DL 70-99 BUN (test code = 2208) 9 MG/DL 6-20 CREATININE (test code = 2214) 0.67 MG/DL 0.60-1.30 eGFR (2020 CKD-EPI) (test code = 33911) 127 ML/MIN/1.73 >60 CALC BUN/CREAT (test code = 2235) 13 RATIO 6-28 SODIUM (test code = 2231) 140 MEQ/L 133-146 POTASSIUM (test code = 2228) 4.1 MEQ/L 3.5-5.4 CHLORIDE (test code = 2214) 105 MEQ/L 95-107 CARBON DIOXIDE (test code = 2205) 21 MEQ/L 19-31 CALCIUM (test code = 2208) 10.1 MG/DL 8.5-10.5 PROTEIN, TOTAL (test code = 2228) 7.5 G/DL 6.1-8.3 ALBUMIN (test code = 2200) 4.9 G/DL 3.5-5.2 CALC GLOBULIN (test code = 0) 2.6 G/DL 1.9-3.7 CALC A/G RATIO (test code = 2233) 1.9 RATIO 1.0-2.6 BILIRUBIN, TOTAL (test code = 2206) 0.3 MG/DL <=1.2 ALKALINE PHOSPHATASE (test code = 2203) 88 U/L 39-117 AST (test code = 2217) 22 U/L 9-40 ALT (test code = 2218) 30 U/L 5-40 LIPID [id number] 06:02:54* Test Item Value Reference Range Interpretation Comme nts CHOLESTEROL (test code = 2209) 185 MG/DL <200 TRIGLYCERIDES (test code = 2231) 50 MG/DL <150 HDL CHOLESTEROL (test code = 2219) 48 MG/DL >39 CALC LDL CHOL (test code = 2236) 123 MG/DL <100 H NOTE: CALCULATED LDL IS BASED ON LYNETTE-HARTMANN METHOD WHICHINCLUDES ADJUSTABLE TRIGLYCERIDE:VLDL CHOLESTEROL RATIO.THIS FACTOR VARIES BY MEASURED TRIGLYCERIDE AND NON-HDLCHOLESTEROL CONCENTRATIONS WITH INCREASED CALCULATED LDL SEENIN HIGHER TRIGLYCERIDE OR LOWER NON-HDL SPECIMENS. FOR MOREINFORMATION, SEE CLIENT ANNOUNCEMENT AT [email or web address] RISK RATIO LDL/HDL (test code = 2237) 2.56 RATIO <3.22 CBC W/AUTO DIFF WITH [id number] 04:02:12* Test Item Value Reference Range Interpretation [...] 0.00-0.10 ABS NUCLEATED RBCS (test code = 31095) 0.00 K/UL 0.00-0.11 HEMOGLOBIN [id number] 03:49:49* Test Item Value Reference Range Interpretation Comme nts HEMOGLOBIN A1c (test code = 18946) 5.3 % 4.2-5.6
[2024-10-27] MEDS ORDERED: NA CHLORIDE 0.9% 1,000 ML ONE (12:15)
[2024-10-27 12:23] LABS: Specific Gravity 1.011 (1.005-1.030)
[2024-10-27 12:24] LABS: Specific Gravity 1.011 (1.005-1.030); Sqamous Epithelial <5 /HPF (None Seen); Urine Bacteria <20 /HPF (<20); Urine Bilirubin NEGATIVE (Negative); Urine Blood Negative (Negative); Urine Clarity Extremely Turbid (Clear); Urine Color Light-Yellow (Yellow); Urine Culture Reflex Order NOT NEEDED; Urine Glucose NEGATIVE (Negative); Urine Ketones NEGATIVE (Negative); Urine Microscopic Reflex YN ORDER UMIC; Urine Mucus Slight /HPF (None Seen); Urine Nitrite NEGATIVE (Negative); Urine Protein TRACE (Negative); Urine RBC <5 /HPF (None Seen); Urine Urobilinogen Normal (Normal); Urine WBC <5 /HPF (<5); Urine pH 6.5 (5.0-7.0)
[2024-10-27 12:36] LABS: Magnesium 1.9 mg/dL (1.6-2.4)
[2024-10-27] MEDS ORDERED: NA CHLORIDE 0.9% 250 ML ONE (13:19)
[2024-10-27] MEDS ORDERED: POTASSIUM CL SA 10 MEQ TAB PO ONE (13:19)
[2024-10-27] MEDS ORDERED: KCL 20 MEQ/100 mL IVPB 100 ML IV ONE (13:19)
[2024-10-27] MEDS ORDERED: CALCIUM GLUCONATE 1 GM IVPB 2 GM/100 ML BAG IV ONE (13:20)
--- NOTE | 2024-10-27 14:36 | EDPHYS ---
Physician Documentation [facility] Name: Devi Calvert Age: 24 yrs Sex: Female : 2000 Arrival Date: 10/27/2024 Time: 11:43 Bed 14 Private MD: ED Physician Bradford Green HPI: 10/27 13:15 This 24 yrs old Female presents to ER via EMS with complaints of Dizziness - rn tingling in extremities. 13:18 Patient reports several days of numbness and tingling to face and extremities. Has had rn this multiple times in the past and has been either hypokalemia/hyponatremia/hypocalcemia. 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 Does not take her calcium supplementation regularly. Has also been having cold and upper respiratory infection the last week so has not been taking her regular medication as prescribed.. Onset: The symptoms/episode began/occurred 3 day(s) ago. Severity of symptoms: At their worst the symptoms were moderate in the emergency department the symptoms are unchanged. The patient has experienced similar episodes in the past. The patient has not recently seen a physician. Historical: - Allergies: 11:48 No Known Allergies; ap3 - Home Meds: 11:48 Seroquel 50 mg Oral tab 1 tab nightly [Active]; levothyroxine 75 mcg oral capsule ap3 [Active]; - PMHx: 11:48 Anxiety; Asthma; Depression; IPH; Migraines; previous suicide attempt; Schizophrenia; ap3 THYROID CANCER; vocal chords problem; - PSHx: 11:48 Cholecystectomy; Thyroidectomy; ap3 - Immunization history:: Adult Immunizations unknown. - Infectious Disease History:: Denies. - Social history:: Smoking status: Patient reports the use of cigarette tobacco products, smokes one-half pack cigarettes per day. - Family history:: not pertinent. - Hospitalizations: : No recent hospitalization is reported. ROS: 13:18 Constitutional: Negative for fever, chills, and weight loss, Neck: Negative for injury, rn pain, and swelling, Cardiovascular: Negative for chest pain, palpitations, and edema, Respiratory: Negative for shortness of breath, cough, wheezing, and pleuritic chest pain, Abdomen/GI: Negative for abdominal pain, nausea, vomiting, diarrhea, and constipation, MS/Extremity: Negative for injury and deformity, Skin: Negative for injury, rash, and discoloration, Neuro: Negative for headache, weakness, and seizure Exam: 13:18 Constitutional: This is a well developed, well nourished patient who is awake, alert, rn and in no acute distress. Cardiovascular: Tachycardic, regular. Respiratory: No increased work of breathing, no retractions or nasal flaring. Abdomen/GI: Soft, non-tender Skin: No rash or cyanosis Neuro: Awake and alert, GCS 15, oriented to person, place, time, and situation. Cranial nerves II-XII grossly intact. Motor strength 4/5 in all extremities. Vital Signs: 11:44 BP 106 / 78; Pulse 104; Resp 17; Temp 98.1; Pulse Ox 99% on R/A; Weight 61.23 kg; ap3 Height 5 ft. 2 in. ; 15:05 BP 107 / 79; Pulse 67; Resp 15; Pulse Ox 100% ; bp 11:44 Body Mass Index 24.69 (61.23 kg, 157.48 cm) ap3 MDM: 11:45 Medical Screening Exam initiated rn 14:34 Differential Diagnosis Hypokalemia, hypocalcemia. Data reviewed: vital signs, nurses rn notes, lab test result(s), and as a result, I will discharge patient. Counseling: I had a detailed discussion with the patient and/or guardian regarding the historical points, exam findings, and any diagnostic results supporting the discharge/admit diagnosis, lab results, the need for outpatient follow up, to return to the emergency department if symptoms worsen or persist or if there are any questions or concerns that arise at home. Response to treatment: the patient's symptoms have mildly improved after treatment. Special discussion: I discussed with the patient/guardian in detail that at this point there is no indication for admission to the hospital. It is understood, however, that if the symptoms persist or worsen the patient needs to return immediately for re-evaluation. ED course: Patient states she has not had enough potassium, orosco too much and does not want anymore. Would like to be discharged.. 10/27 11:50 Order name: BMP; Complete Time: 12:44 rn 10/27 11:50 Order name: Magnesium; Complete Time: 12:44 rn 10/27 11:50 Order name: Test, Urine; Complete Time: 12:44 rn 12/18 11:50 Order name: Urinalysis w/ reflexes; Complete Time: 12:44 rn 10/27 11:50 Order name: EKG - Nurse/Tech; Complete Time: 12:28 rn 10/27 12:01 Order name: Cardiac monitoring; Complete Time: 12:11 rn Administered Medications: 12:15 Drug: NS 0.9% IV 1000 ml IV at 1000 ml once; to be given as a bolus over 60 minutes iw Route: IV; Rate: 1000 ml; Site: right antecubital; 13:59 Follow up: IV Status: Completed infusion bp 13:00 Drug: Calcium Gluconate IVPB 2 grams IVPB once over 60 mins; (mix in NS 100 mL) Route: bp IVPB; Infused Over: 60 mins; Site: right antecubital; 14:00 Follow up: IV Status: Completed infusion bp 13:30 Drug: Potassium Chloride IV 20 mEq IV at calculated rate once; administer over 1-2 bp hours Route: IV; Rate: calculated rate; Site: right antecubital; 15:10 Follow up: IV Status: Completed infusion bp 13:30 Drug: Potassium Chloride PO 40 mEq PO once Route: PO; bp 13:59 Follow up: Response: No adverse reaction bp Disposition Summary: 10/27/24 14:35 Discharge Ordered Notes: Location: Home rn Problem: an ongoing problem rn Symptoms: have improved rn Condition: Stable rn Diagnosis - Hypocalcemia rn - Hypokalemia rn - Paresthesia of skin rn Followup: rn - With: Private Physician - When: As needed - Reason: Recheck today's complaints, Re-evaluation by your physician Discharge Instructions: - Discharge Summary Sheet rn - Paresthesia rn - Hypocalcemia, Adult rn - Hypokalemia rn Forms: - Work release form iw - Medication Reconciliation Form rn - Antibiotic wound care rn - Prescription Opioid Use rn - Patient Portal Instructions rn - Leadership Thank You Letter rn Signatures: Dispatcher [employer] Belgica Telles RN Bradford Goldsmith MD MD rn Peltier, Brian RN Rupa Narayanan, RN RN ap3 Corrections: (The following items were deleted from the chart) 11:50 11:50 BASIC METABOLIC PANEL+C.LAB.BRZ ordered. EDMS EDMS 11:50 11:50 MAGNESIUM+C.LAB.BRZ ordered. EDMS EDMS 11:50 11:50 Test, Urine+UC.LAB.BRZ ordered. EDMS EDMS 11:50 11:50 Urinalysis+U.LAB.BRZ ordered. EDMS EDMS
--- NOTE | 2024-10-27 14:36 | ER ---
Nurse's Notes [facility] Name: Devi Calvert Age: 24 yrs Sex: Female : 2000 Arrival Date: 10/27/2024 Time: 11:43 Bed 14 Private MD: Diagnosis: Hypocalcemia;Hypokalemia;Paresthesia of skin Presentation: 10/27 11:44 Chief complaint: Patient states: patient reports waking up this morning with tingling ap3 to her arms, legs and lips. patient also reports feeling dizzy. patient states the last time this happened, her electrolytes were low. Coronavirus screen: At this time, the client does not indicate any symptoms associated with coronavirus-19. Ebola Screen: No symptoms or risks identified at this time. Initial Sepsis Screen: Does the patient meet any 2 criteria? HR > 90 bpm. Does the patient have a suspected source of infection? No. Patient's initial sepsis screen is negative. Risk Assessment: Do you want to hurt yourself or someone else? Patient reports no desire to harm self or others. Onset of symptoms was October 27, 2024. 11:44 Method Of Arrival: EMS: [facility] ap3 11:44 Acuity: CHANTAL 3 ap3 Triage Assessment: 11:50 General: Appears ill, Behavior is calm, cooperative, appropriate for age. Pain: Denies ap3 pain. EENT: Reports pain when swallowing. Neuro: Level of Consciousness is awake, alert, obeys commands, Oriented to person, place, time, situation, Reports tingling to her extremities and lips. Cardiovascular: Patient's skin is warm and dry. Respiratory: Airway is patent Respiratory effort is even, unlabored, Respiratory pattern is regular, symmetrical. Historical: - Allergies: 11:48 No Known Allergies; ap3 - Home Meds: 11:48 Seroquel 50 mg Oral tab 1 tab nightly [Active]; levothyroxine 75 mcg oral capsule ap3 [Active]; - PMHx: 11:48 Anxiety; Asthma; Depression; IPH; Migraines; previous suicide attempt; Schizophrenia; ap3 THYROID CANCER; vocal chords problem; - PSHx: 11:48 Cholecystectomy; Thyroidectomy; ap3 - Immunization history:: Adult Immunizations unknown. - Infectious Disease History:: Denies. - Social history:: Smoking status: Patient reports the use of cigarette tobacco products, smokes one-half pack cigarettes per day. - Family history:: not pertinent. - Hospitalizations: : No recent hospitalization is reported. Screenin:50 Abuse screen: Denies threats or abuse. Nutritional screening: No deficits noted. ap3 Tuberculosis screening: No symptoms or risk factors identified. 15:07 [facility] ED Fall Risk Assessment (Adult) History of falling in the last 3 months, bp including since admission No falls in past 3 months (0 pts) Confusion or Disorientation No (0 pts) Intoxicated or Sedated No (0 pts) Impaired Gait No (0 pts) Mobility Assist Device Used No (0 pt) Altered Elimination No (0 pt) Score/Fall Risk Level 0 - 2 = Low Risk Oriented to surroundings. Assessment: 12:00 General: Appears in no apparent distress. comfortable, Behavior is cooperative, bp appropriate for age, anxious. 15:00 Reassessment: Patient appears in no apparent distress at this time. Patient is alert, bp oriented x 3, equal unlabored respirations, skin warm/dry/pink. Vital Signs: 11:44 BP 106 / 78; Pulse 104; Resp 17; Temp 98.1; Pulse Ox 99% on R/A; Weight 61.23 kg; ap3 Height 5 ft. 2 in. ; 15:05 BP 107 / 79; Pulse 67; Resp 15; Pulse Ox 100% ; bp 11:44 Body Mass Index 24.69 (61.23 kg, 157.48 cm) ap3 ED Course: 11:44 Patient arrived in ED. ap3 11:45 Bradford Green MD is Attending Physician. rn 11:48 Triage completed. ap3 11:50 Arm band placed on right wrist. ap3 11:54 Belgica Streeter, RN is Primary Nurse. iw 12:11 Initial lab(s) drawn, by me, sent to lab. Urine collected: clean catch specimen, clear. iw Inserted saline lock: 20 gauge in right antecubital area, using aseptic technique. Blood collected. Flushed with 10 mL NS. 12:20 EKG done, by ED staff, reviewed by Bradford Green MD. kb4 15:06 Patient has correct armband on for positive identification. Provided Education on: NA. bp 15:06 No provider procedures requiring assistance completed. IV discontinued, intact, bp bleeding controlled, No redness/swelling at site. Pressure dressing applied. Administered Medications: 12:15 Drug: NS 0.9% IV 1000 ml IV at 1000 ml once; to be given as a bolus over 60 minutes iw Route: IV; Rate: 1000 ml; Site: right antecubital; 13:59 Follow up: IV Status: Completed infusion bp 13:00 Drug: Calcium Gluconate IVPB 2 grams IVPB once over 60 mins; (mix in NS 100 mL) Route: bp IVPB; Infused Over: 60 mins; Site: right antecubital; 14:00 Follow up: IV Status: Completed infusion bp 13:30 Drug: Potassium Chloride IV 20 mEq IV at calculated rate once; administer over 1-2 bp hours Route: IV; Rate: calculated rate; Site: right antecubital; 15:10 Follow up: IV Status: Completed infusion bp 13:30 Drug: Potassium Chloride PO 40 mEq PO once Route: PO; bp 13:59 Follow up: Response: No adverse reaction bp Medication: 15:08 VIS not applicable for this client. bp Outcome: 14:35 Discharge ordered by . rn 15:06 Discharged to home ambulatory, bp 15:06 Condition: stable 15:06 Discharge instructions given to patient, Instructed on discharge instructions, follow up and referral plans. Demonstrated understanding of instructions, follow-up care, 15:10 Patient left the ED. bp Signatures: Belgica Streeter, RN Bradford Goldsmith MD MD rn Peltier, Brian, RN RN bp Prokisch, Amanda, RN RN ap3 Susana Donaldson kb4
[2024-10-27 15:33] VITALS: TEMP 98.1
[2024-10-27 15:39] VITALS: BP 107/79; O2SAT 100
--- NOTE | 2024-10-28 11:27 | EKG ---
Test Date: 2024-10-27 Test Time: 12:22:00 Accounting Bookkeeper: EULA MEASUREMENT RESULTS: Intervals: Rate: 95 [place]: 126 QRSD: 72 QT: 386 QTc: 485 [place]: P: 61 [place]: 126 QRS: 54 T: 10 INTERPRETIVE STATEMENTS: Normal sinus rhythm Cannot rule out Anterior infarct, age undetermined Abnormal ECG Compared to ECG 09/19/2024 18:24:04 Myocardial infarct finding now present Electronically Signed On 10-28-24 11:26:54 BREAKING MACHINE OPERATOR by Chucho Aguirre
== END 2024-10-27 15:10 | disposition home or self-care (01) ==
LOC: ER 11:43
DX: E83.51 Hypocalcemia (principal); E87.6 Hypokalemia; R42 Dizziness and giddiness
CPT/HCPCS: 96365; 96361; 93005; 81001; 80048; 36415; 83735; 81025; 99284; J3480; J0612; J7050; J7030

== ENCOUNTER 2025-04-02 20:13 | Emergency (ER) | payer BC ==
--- NOTE | 2025-04-02 20:45 | EDPHYS ---
Physician Documentation [facility] Name: Devi Calvert Age: 24 yrs Sex: Female : 2000 Arrival Date: 04/02/2025 Time: 20:13 Bed 10 Private MD: ED Physician Min Dobson HPI: 04/02 21:05 This 24 yrs old Female presents to ER via Ambulatory with complaints of Cat sb4 Bite. 21:05 The patient was bitten on the left hand, left arm and left leg. Onset: The sb4 symptoms/episode began/occurred just prior to arrival. Animal information: Animal's vaccinations are up to date. The animal is known and can be quarantined. Secondary to the bite the patient reports multiple puncture wounds, that are superficial. HEAD TRANSFER CLERK: 20:47 LMP N/A - control method, Not dd2 Historical: - Allergies: 20:47 No Known Allergies; dd2 - PMHx: 20:47 Anxiety; Depression; Asthma; IPH; previous suicide attempt; Migraines; Schizophrenia; dd2 THYROID CANCER; vocal chords problem; - PSHx: 20:47 Cholecystectomy; Thyroidectomy; dd2 - Immunization history:: Adult Immunizations not up to date, Last tetanus immunization: unknown. - Infectious Disease History:: Denies. - Social history:: Smoking status: Patient reports the use of cigarette tobacco products, smokes one-half pack cigarettes per day. ROS: 21:05 Constitutional: Negative for fever, chills, and weight loss, sb4 21:05 Skin: Positive for pustules, of the left hand, left arm and left leg, 21:05 All other systems are negative, Exam: 21:07 Constitutional: This is a well developed, well nourished patient who is awake, alert, sb4 and in no acute distress. Head/Face: Normocephalic, atraumatic. Eyes: Extra-ocular motions intact. Periorbital areas with no swelling, redness, or edema. ENT: Mucous membranes moist. Respiratory: No increased work of breathing, no retractions or nasal flaring. 21:07 Skin: injury, puncture(s), that are superficial, of the left hand and left arm, Vital Signs: 20:42 BP 137 / 85; Pulse 94; Resp 16; Temp 98.5; Pulse Ox 99% ; Weight 61.23 kg; Height 5 ft. dd2 2 in. ; Pain 4/10; 20:42 Body Mass Index 24.69 (61.23 kg, 157.48 cm) dd2 20:42 Pain Scale: Adult dd2 MDM: 20:26 Medical Screening Exam initiated sb4 21:07 Differential diagnosis: superficial laceration, cellulitis. Rabies Status: Rabies sb4 immunization is not indicated. Data reviewed: vital signs, nurses notes, and as a result, I will discharge patient. Counseling: I had a detailed discussion with the patient and/or guardian regarding the historical points, exam findings, and any diagnostic results supporting the discharge/admit diagnosis, the presence of at least one elevated blood pressure reading (>120/80) during this emergency department visit, the need for outpatient follow up, for definitive care, to return to the emergency department if symptoms worsen or persist or if there are any questions or concerns that arise at home. 04/02 20:43 Order name: Wound Care; Complete Time: 21:42 sb4 Administered Medications: 21:38 Drug: Amoxicillin-Clavulanate PO 875 mg PO once Route: PO; dd2 21:41 Follow up: Response: Medication administered at discharge. dd2 21:38 Drug: Boostrix Tdap IM 0.5 ml IM once; as a single dose Route: IM; Site: right deltoid; dd2 21:41 Follow up: Response: Medication administered at discharge. dd2 Disposition: 04/03 04:53 Co-signature as Attending Physician, Min Dobson MD I agree with the assessment sp4 and plan of care. I reviewed the patient's care provided by the Advanced Practice Provider and agree with the diagnosis and treatment plan. Disposition Summary: 04/02/25 20:44 Discharge Ordered Notes: Location: Home sb4 Problem: new sb4 Symptoms: have improved sb4 Condition: Stable sb4 Diagnosis - Bitten by cat sb4 - Scratched by cat sb4 - Puncture wound without foreign body of left hand sb4 Followup: sb4 - With: Emergency Department - When: As needed - Reason: Fever > 102 F, Worsening of condition Discharge Instructions: - Discharge Summary Sheet sb4 - Animal Bite, Adult, [id number] sb4 - Puncture Wound, Miri-ca-Dnex sb4 - Wound Care, Adult sb4 Forms: - Antibiotic Education sb4 - Patient Portal Instructions sb4 - Leadership Thank You Letter sb4 Prescriptions: - Augmentin 875-125 mg Oral Tablet - take 1 tablet ORAL route every 12 hours for 10 days; 20 tablet; Refills: 0, sb4 Product Selection Permitted Signatures: Philly Coley PA-C PA-C sb4 Min Dobson MD MD sp4 TJ PATEL RN RN dd2
[2025-04-02] MEDS ORDERED: AMOX/K CLAV 875 MG TAB ONE (21:30)
[2025-04-02] MEDS ORDERED: TDAP (DIPHTH,PERTUSS(ACELL),TET VAC) 0.5 ML VIAL IMVAC ONE (21:30)
--- NOTE | 2025-04-02 21:43 | ER ---
Nurse's Notes [facility] Name: Devi Calvert Age: 24 yrs Sex: Female : 2000 Arrival Date: 04/02/2025 Time: 20:13 Bed 10 Private MD: Diagnosis: Bitten by cat;Scratched by cat;Puncture wound without foreign body of left hand Presentation: 04/02 20:42 Chief complaint: Patient states: WAS TRYING TO GIVE CAT A BATH AND WAS BITTEN ON LT dd2 HAND, LT KNEE AND SCRATCHED ON THE LT ARM. Coronavirus screen: At this time, the client does not indicate any symptoms associated with coronavirus-19. Ebola Screen: No symptoms or risks identified at this time. Initial Sepsis Screen: Does the patient meet any 2 criteria? No. Patient's initial sepsis screen is negative. Does the patient have a suspected source of infection? No. Patient's initial sepsis screen is negative. Risk Assessment: Do you want to hurt yourself or someone else? Patient reports no desire to harm self or others. Onset of symptoms was April 02, 2025. 20:42 Method Of Arrival: Ambulatory dd2 20:42 Acuity: CHANTAL 4 dd2 Triage Assessment: 20:47 Bite description: bite sustained to left hand and left knee by a cat, animal dd2 information: vaccination(s) is unknown. General: Appears in no apparent distress. uncomfortable, Behavior is calm, cooperative, appropriate for age. Pain: Complains of pain in left hand and left knee. Derm: Wound noted LT HAND, LT FOREARM, LT KNEE Wound is BITE TO LT HAND X2, LT KNEE, SCRATCH TO LT FOREARM X6. 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 - Infectious Disease History:: Denies. - Social history:: Smoking status: Patient reports the use of cigarette tobacco products, smokes one-half pack cigarettes per day. Screenin:39 [facility] ED Fall Risk Assessment (Adult) History of falling in the last 3 months, dd2 including since admission No falls in past 3 months (0 pts) Confusion or Disorientation No (0 pts) Intoxicated or Sedated No (0 pts) Impaired Gait No (0 pts) Mobility Assist Device Used No (0 pt) Altered Elimination No (0 pt) Score/Fall Risk Level 0 - 2 = Low Risk. Abuse screen: Denies threats or abuse. Denies injuries from another. Nutritional screening: No deficits noted. Tuberculosis screening: No symptoms or risk factors identified. Assessment: 21:39 Reassessment: see triage assessment. dd2 21:40 Derm: Skin bite to lt hand, lt knee, animal scratches to lt forearm Skin is normal. dd2 Vital Signs: 20:42 BP 137 / 85; Pulse 94; Resp 16; Temp 98.5; Pulse Ox 99% ; Weight 61.23 kg; Height 5 ft. dd2 2 in. ; Pain 4/10; 20:42 Body Mass Index 24.69 (61.23 kg, 157.48 cm) dd2 20:42 Pain Scale: Adult dd2 ED Course: 20:15 Patient arrived in ED. im 20:18 Philly Coley PA-C is PHCP. sb4 20:18 Min Dobosn MD is Attending Physician. sb4 20:46 Triage completed. dd2 20:47 Arm band placed on right wrist. dd2 21:09 Blessing James, RN is Primary Nurse. me1 21:39 Patient has correct armband on for positive identification. Bed in low position. Call dd2 light in reach. Provided Education on: medication and d/c education. 21:39 No provider procedures requiring assistance completed. Patient did not have IV access dd2 during this emergency room visit. 21:42 Wound care: to puncture located on left arm and left hand and left knee was cleaned dd2 with Betadine, dressed with Neosporin, band aid, Patient tolerated well. Administered Medications: 21:38 Drug: Amoxicillin-Clavulanate PO 875 mg PO once Route: PO; dd2 21:41 Follow up: Response: Medication administered at discharge. dd2 21:38 Drug: Boostrix Tdap IM 0.5 ml IM once; as a single dose Route: IM; Site: right deltoid; dd2 21:41 Follow up: Response: Medication administered at discharge. dd2 Medication: 21:39 Vaccine Information Statement (VIS) provided today. Questions and/or concerns dd2 addressed. VIS edition date: June 15, 2021. Outcome: 20:44 Discharge ordered by . sb4 21:39 Discharged to home ambulatory, dd2 21:39 Condition: stable 21:39 Discharge instructions given to patient, Instructed on discharge instructions, follow up and referral plans. medication usage, Demonstrated understanding of instructions, follow-up care, medications, Prescriptions given X 1, 21:42 Patient left the ED. dd2 Signatures: Philly Coley PA-C PA-C sb4 Catrachita Posadas Michelle, RN RN me1 TJ PATEL RN RN dd2 Corrections: (The following items were deleted from the chart) 21:38 21:38 Boostrix Tdap IM 0.5 ml IM in left deltoid dd2 dd2
[2025-04-02 22:19] VITALS: BP 137/85; TEMP 98.5; O2SAT 99
== END 2025-04-02 21:42 | disposition home or self-care (01) ==
LOC: ER 20:13
DX: S61.432A Puncture wound without foreign body of left hand, initial encounter (principal); W55.01XA Bitten by cat, initial encounter; W55.03XA Scratched by cat, initial encounter; Z23 Encounter for immunization; F17.210 Nicotine dependence, cigarettes, uncomplicated
CPT/HCPCS: 90715; 96372; 99284

== ENCOUNTER 2025-09-04 22:05 | Emergency (ER) | payer BC ==
[2025-09-04] MEDS ORDERED: KETOROLAC 30 MG/ML INJ ONE (22:18)
[2025-09-04] MEDS ORDERED: ONDANSETRON 4 MG/2 ML VIAL ONE (22:18)
[2025-09-04] MEDS ORDERED: NA CHLORIDE 0.9% 1,000 ML ONE (22:18)
[2025-09-04 22:46] LABS: Absolute Lymphocytes (CBC) 1.9 K/uL (0.7-4.9); Hematocrit 41.9 % (36.0-45.0); Hemoglobin 14.0 g/dL (12.0-15.0); MCH 27.9 pg (27.0-35.0); MCHC 33.5 g/dL (32.0-36.0); MCV 83.5 fL (80-100); MPV 8.2 fL (7.6-11.3); Nucleated RBC Absolute Count 0.0 (0-0); Nucleated Red Blood Cells % 0.0 % (0-0); RBC Red Blood Cell Count 5.02 M/uL (3.86-4.86); White Blood Count 13.60 thou/uL (4.3-10.9)
[2025-09-04 23:03] LABS: ALT/SGPT 19.0 U/L (13-56); AST/SGOT 15.0 U/L (15-37); Albumin 3.7 g/dL (3.4-5.0); Albumin/Globulin Ratio 0.8 (1.1-1.8); Alkaline Phosphatase 87.0 U/L (45-117); Anion Gap 13.2 mEq/L (5.0-15.0); BUN Blood Urea Nitrogen 11.0 mg/dL (7-18); Globulin 4.8 g/dL (2.3-3.5); Glucose Level 97.0 mg/dL (74-106); Lipase 63.0 U/L (13-75); Potassium 3.2 mEq/L (3.5-5.1)
--- NOTE | 2025-09-05 00:52 | RAD REPORT ---
CLINICAL HISTORY: Abdominal pain. COMPARISON: CT Abdomen Pelvis 10/13/2023. TECHNIQUE: CT ABDOMEN PELVIS WITH IV CONTRAST on 09/04/2025 10:12 PM CDT This exam was performed according to our departmental dose-optimization program, which includes autom ated exposure control, adjustment of the mA and/or kV according to patient size and/or use of iterative reconstruction technique. FINDINGS: Lower lungs are clear. Abdomen: The liver is normal in appearance. There is no biliary dilatation. Cholecystectomy was perfo rmed. The pancreas and spleen are normal in appearance. The adrenal glands and kidneys are unremarkable. Abdominal aorta is normal in course and caliber without aneurysm. There is no free air. There is no r etroperitoneal adenopathy. Pelvis: There is no bowel obstruction. Urinary bladder is unremarkable. There is no free fluid. Uteru s is normal in size. Appendix is normal. Skeleton: There are no acute osseous findings. No suspicious bony lesions. IMPRESSION: No acute process. Electronically signed by: Yazan Chi MD 09/05/2025 12:20 AM CDT RP Due to temporary technical issues with the [employer]ACS/[employer] reporting system, reports are being genesis d by the in-house radiologist without review as a courtesy to ensure prompt reporting the interpreting radiologist is fully responsible for the content of the report. Transcribed Date/Time: 09/05/2025 12:51 AM
--- NOTE | 2025-09-05 01:03 | ER ---
Nurse's Notes [facility] Name: Devi Calvert Age: 24 yrs Sex: Female : 2000 Arrival Date: 09/04/2025 Time: 22:05 Bed 15 Private MD: Diagnosis: Nausea with vomiting, unspecified;Diarrhea, unspecified Presentation: 09/04 22:20 Chief complaint: Patient states: PT C/O AB PAIN WITH N/V/D SINCE YESTERDAY. RLQ THAT br2 RADIATES TO RUQ AND EPIGASTRIC AREA. Coronavirus screen: Client denies travel out of the [place] in the last 14 days. Ebola Screen: Patient denies exposure to infectious person. Initial Sepsis Screen: Does the patient meet any 2 criteria? HR > 90 bpm. Does the patient have a suspected source of infection? No. Patient's initial sepsis screen is negative. Risk Assessment: Do you want to hurt yourself or someone else? Patient reports no desire to harm self or others. Onset of symptoms was September 03, 2025. 22:20 Method Of Arrival: Ambulatory br2 22:20 Acuity: CHANTAL 3 br2 Triage Assessment: 22:24 General: Appears in no apparent distress. uncomfortable, Behavior is calm, cooperative. br2 Pain: Complains of pain in epigastric area, right upper quadrant and right lower quadrant Pain currently is 7 out of 10 on a pain scale. GI: Reports lower abdominal pain, upper abdominal pain, diarrhea, nausea, vomiting. Historical: - Allergies: 22:24 No Known Allergies; br2 - PMHx: 22:24 Anxiety; Asthma; Depression; IPH; Migraines; Schizophrenia; THYROID CANCER; br2 - PSHx: 22:24 Cholecystectomy; Thyroidectomy; br2 - Immunization history:: Adult Immunizations not up to date. - Infectious Disease History:: Denies. - Social history:: Smoking status: Patient reports the use of cigarette tobacco products, smokes one-half pack cigarettes per day, Reported history of juuling and/or vaping. Patient/guardian denies using alcohol, street drugs. Screenin:20 [facility] ED Fall Risk Assessment (Adult) History of falling in the last 3 months, nh2 including since admission No falls in past 3 months (0 pts) Confusion or Disorientation No (0 pts) Intoxicated or Sedated No (0 pts) Impaired Gait No (0 pts) Mobility Assist Device Used No (0 pt) Altered Elimination No (0 pt) Score/Fall Risk Level 0 - 2 = Low Risk Oriented to surroundings, Maintained a safe environment, Educated pt \T\ family on fall prevention, incl call for assistance when getting out of bed, Assessed \T\ reinforced patient's understanding of fall precautions. Abuse screen: Denies threats or abuse. Denies injuries from another. Nutritional screening: No deficits noted. Tuberculosis screening: No symptoms or risk factors identified. Assessment: 22:20 General: Appears uncomfortable, Behavior is cooperative, anxious, restless. Pain: nh2 Complains of pain in right lower quadrant and right upper quadrant Pain currently is 8 out of 10 on a pain scale. Quality of pain is described as aching, Pain began 1 day ago. Is continuous, Aggravated by eating, weight bearing. Neuro: Level of Consciousness is awake, alert, Oriented to person, place, time, situation, Appropriate for age. Cardiovascular: Patient's skin is warm and dry. Respiratory: Respiratory effort is even, unlabored. GI: Abdomen is round non-distended, Bowel sounds present X 4 quads. Abd is soft X 4 quads Abdomen is tender to palpation in right upper quadrant and right lower quadrant Reports diarrhea, intolerance of fluids, intolerance of food, nausea, vomiting. : No signs and/or symptoms were reported regarding the genitourinary system. EENT: No signs and/or symptoms were reported regarding the EENT system. Derm: Skin is pink, warm \T\ dry. Musculoskeletal: Circulation, motion, and sensation intact. Range of motion: intact in all extremities. 23:20 Reassessment: Patient and/or family updated on plan of care and expected duration. Pain nh2 level reassessed. Patient is alert, oriented x 3, equal unlabored respirations, skin warm/dry/pink. Patient states feeling better. 23:38 Reassessment: pt transported to CT via wheelchair. nh2 09/05 00:26 Reassessment: Patient and/or family updated on plan of care and expected duration. Pain nh2 level reassessed. Patient is alert, oriented x 3, equal unlabored respirations, skin warm/dry/pink. Patient states feeling better. 01:02 Reassessment: Patient and/or family updated on plan of care and expected duration. Pain nh2 level reassessed. Patient is alert, oriented x 3, equal unlabored respirations, skin warm/dry/pink. Patient states feeling better. Vital Signs: 09/04 22:20 BP 127 / 75; Pulse 120; Resp 18 S; Temp 98.3(O); Pulse Ox 99% on R/A; Weight 68.04 kg; br2 Height 5 ft. 2 in. ; Pain 7/10; 22:41 BP 101 / 67; Pulse 97; Resp 19; Pulse Ox 98% on R/A; nh2 09/05 00:25 BP 100 / 67; Pulse 94; Resp 18; Pulse Ox 100% on R/A; nh2 09/04 22:20 Body Mass Index 27.44 (68.04 kg, 157.48 cm) br2 09/04 22:20 Pain Scale: Adult br2 ED Course: 09/04 22:08 Patient arrived in ED. im 22:09 Batsheva Mora [facility]C [facility] kb 22:09 Carolyn Bryant MD is Attending Physician. kb 22:16 Deshawn Ayala Jr, BERNA is Primary Nurse. nh2 22:20 Patient has correct armband on for positive identification. Bed in low position. Call nh2 light in reach. Side rails up X 1. Provided Education on: using call light for assistance. 22:20 No provider procedures requiring assistance completed. Inserted saline lock: 22 gauge nh2 in left antecubital area, using aseptic technique. Blood collected. Flushed with 10 mL NS. 22:24 Triage completed. br2 22:24 Arm band placed on right wrist. br2 23:54 CT Abd/Pelvis - IV Contrast Only In Process Unspecified. EDMS Administered Medications: 22:30 Drug: TORadol - Ketorolac IVP 15 mg IVP once Route: IVP; Site: left antecubital; nh2 23:05 Follow up: Response: No adverse reaction; Pain is decreased nh2 22:30 Drug: Ondansetron IVP 4 mg IVP once; over 2 minutes Route: IVP; Site: left antecubital; nh2 23:05 Follow up: Response: No adverse reaction; Nausea is decreased nh2 22:30 Drug: NS 0.9% IV 1000 ml IV at 1 bolus Per protocol; to be given as a bolus over 60 nh2 minutes Route: IV; Rate: 1 bolus; Site: left antecubital; 09/05 01:12 Drug: Potassium Chloride PO 40 mEq PO once Route: PO; nh2 01:12 Follow up: Response: Medication administered at discharge. nh2 Medication: 09/04 22:20 VIS not applicable for this client. nh2 Outcome: 09/05 01:03 Discharge ordered by . kb 01:12 Discharged to home ambulatory, with friend, nh2 01:12 Condition: stable 01:12 Discharge instructions given to patient, Instructed on discharge instructions, follow up and referral plans. medication usage, Demonstrated understanding of instructions, follow-up care, medications, Prescriptions given X 1, 01:13 Patient left the ED. nh2 Signatures: Dispatcher [employer] EDMS Batsheva Mora FNP-C FNP-Catrachita Buckner Belinda RN RN br2 Deshawn Ayala Jr RN RN nh2 Corrections: (The following items were deleted from the chart) 09/04 22:42 22:41 Pulse 97bpm; Resp 19bpm; Pulse Ox 98% RA; nh2 nh2
--- NOTE | 2025-09-05 01:03 | EDPHYS ---
Physician Documentation [facility] Name: Devi Calvert Age: 24 yrs Sex: Female : 2000 Arrival Date: 09/04/2025 Time: 22:05 Bed 15 Private MD: ED Physician Carolyn Bryant HPI: 09/04 22:10 This 24 yrs old Female presents to ER via Unassigned with complaints of kb Abdominal Pain, Nausea/Vomiting/Diarrhea. 22:10 Pt is a 24 year old female who presents for vomiting and diarrhea that started today. kb Reports pain to mid abd. Denies fever. . Historical: - Allergies: 22:24 No Known Allergies; br2 - PMHx: 22:24 Anxiety; Asthma; Depression; IPH; Migraines; Schizophrenia; THYROID CANCER; br2 - PSHx: 22:24 Cholecystectomy; Thyroidectomy; br2 - Immunization history:: Adult Immunizations not up to date. - Infectious Disease History:: Denies. - Social history:: Smoking status: Patient reports the use of cigarette tobacco products, smokes one-half pack cigarettes per day, Reported history of juuling and/or vaping. Patient/guardian denies using alcohol, street drugs. ROS: 22:11 Constitutional: As per HPI kb Exam: 22:11 Constitutional: This is a well developed, well nourished patient who is awake, alert, kb and in no acute distress. Head/Face: Normocephalic, atraumatic. ENT: Moist Mucous membranes Cardiovascular: Regular rate Respiratory: Respirations even and unlabored. No increased work of breathing. Talking in full sentences Skin: Warm, dry with normal turgor. Normal color. MS/ Extremity: Pulses equal, no cyanosis. Neurovascular intact. Full, normal range of motion. Neuro: Awake and alert, GCS 15, oriented to person, place, time, and situation. 09/05 00:47 Abdomen/GI: Inspection: abdomen appears normal, Bowel sounds: normal, Palpation: soft, kb in all quadrants, moderate abdominal tenderness, in the right upper quadrant, Vital Signs: 09/04 22:20 BP 127 / 75; Pulse 120; Resp 18 S; Temp 98.3(O); Pulse Ox 99% on R/A; Weight 68.04 kg; br2 Height 5 ft. 2 in. ; Pain 7/10; 22:41 BP 101 / 67; Pulse 97; Resp 19; Pulse Ox 98% on R/A; nh2 09/05 00:25 BP 100 / 67; Pulse 94; Resp 18; Pulse Ox 100% on R/A; nh2 09/04 22:20 Body Mass Index 27.44 (68.04 kg, 157.48 cm) br2 09/04 22:20 Pain Scale: Adult br2 MDM: 09/04 22:09 Medical Screening Exam initiated kb 09/05 00:46 Data reviewed: vital signs, nurses notes. kb 00:47 Differential diagnosis: cholecystitis, Cholelithiasis, gastritis, gastroesophageal kb reflux disease, non-specific abd pain, gastroenteritis. 01:02 Counseling: I had a detailed discussion with the patient and/or guardian regarding the kb historical points, exam findings, and any diagnostic results supporting the discharge/admit diagnosis, lab results, radiology results, the need for outpatient follow up, a family practitioner, to return to the emergency department if symptoms worsen or persist or if there are any questions or concerns that arise at home. 09/04 22:11 Order name: CBC with Diff; Complete Time: 23:00 kb 09/04 22:11 Order name: CMP; Complete Time: 23:12 kb 09/04 22:11 Order name: Lipase; Complete Time: 23:12 kb 09/04 22:11 Order name: Test, Urine; Complete Time: 23:27 kb 09/04 22:12 Order name: CT Abd/Pelvis - IV Contrast Only; Complete Time: 00:59 kb 09/04 22:11 Order name: IV Saline Lock; Complete Time: 22:40 kb 09/04 22:11 Order name: Labs collected and sent; Complete Time: 22:40 kb Administered Medications: 09/04 22:30 Drug: TORadol - Ketorolac IVP 15 mg IVP once Route: IVP; Site: left antecubital; nh2 23:05 Follow up: Response: No adverse reaction; Pain is decreased nh2 22:30 Drug: Ondansetron IVP 4 mg IVP once; over 2 minutes Route: IVP; Site: left antecubital; nh2 23:05 Follow up: Response: No adverse reaction; Nausea is decreased nh2 22:30 Drug: NS 0.9% IV 1000 ml IV at 1 bolus Per protocol; to be given as a bolus over 60 nh2 minutes Route: IV; Rate: 1 bolus; Site: left antecubital; 09/05 01:12 Drug: Potassium Chloride PO 40 mEq PO once Route: PO; nh2 01:12 Follow up: Response: Medication administered at discharge. nh2 Disposition Summary: 09/05/25 01:03 Discharge Ordered Notes: Location: Home kb Condition: Stable kb Diagnosis - Nausea with vomiting, unspecified kb - Diarrhea, unspecified kb Followup: kb - With: Emergency Department - When: As needed - Reason: Worsening of condition Followup: kb - With: Private Physician - When: 2 - 3 days - Reason: Recheck today's complaints, Continuance of care, Re-evaluation by your physician Discharge Instructions: - Discharge Summary Sheet kb - Viral Gastroenteritis, Adult, [id number] kb Forms: - Medication Reconciliation Form kb - Antibiotic Education kb - Prescription Opioid Use kb - Patient Portal Instructions kb - Leadership Thank You Letter kb Prescriptions: - ondansetron 4 mg Oral Tablet,disintegrating - take 1 tablet ORAL route every 6 hours as needed for nausea and vomiting; 12 kb tablet; Refills: 0, Product Selection Permitted Signatures: Dispatcher [employer] EDMS Batsheva Mora, SNAILER-C SNAILER-Viry Concepcion RN RN br2 Deshawn Ayala Jr RN RN nh2 Corrections: (The following items were deleted from the chart) 09/04 22:12 22:12 CBC+H.LAB.BRZ ordered. EDMS EDMS 22:12 22:12 COMPREHENSIVE METABOLIC PANEL+C.LAB.BRZ ordered. EDMS EDMS 22:12 22:12 LIPASE+C.LAB.BRZ ordered. EDMS EDMS 22:12 22:12 Test, Urine+UC.LAB.BRZ ordered. EDMS EDMS
[2025-09-05] MEDS ORDERED: POTASSIUM CL SA 10 MEQ TAB PO ONE (01:06)
[2025-09-05 01:21] VITALS: TEMP 98.3
[2025-09-05 01:23] VITALS: BP 100/67; O2SAT 100
== END 2025-09-05 01:13 | disposition home or self-care (01) ==
LOC: ER 22:05
DX: R10.9 Unspecified abdominal pain (principal); R11.2 Nausea with vomiting, unspecified; R19.7 Diarrhea, unspecified; F41.9 Anxiety disorder, unspecified; J45.909 Unspecified asthma, uncomplicated; Z85.850 Personal history of malignant neoplasm of thyroid; F17.210 Nicotine dependence, cigarettes, uncomplicated
CPT/HCPCS: 85025; 36415; 81025; 83690; 80053; 74177; 96375; 96374; 99284; Q9967; J1885; J2405; J7030